=== PATIENT | female | born 1995 | race Caucasian/White ===

== ENCOUNTER 2024-06-02 15:52 | Emergency (ER) | payer MEDICAID, SELFPAY ==
[2024-06-02 15:58] VITALS: BP 130/82; PULSE 90; RESP 16; TEMP 37.3; O2SAT 99; BMI 31.6
--- NOTE | 2024-06-02 16:16 | ED.GENADULT ---
HPI - General Adult General Date Seen: 06/02/24 Chief complaint: Vaginal Bleeding Stated complaint: bleeding, 8 wks Time Seen by Provider: 06/02/24 16:07 Source: patient History of Present Illness HPI narrative: Patient is a 28-year-old young woman who is a at 8 weeks by both LMP and ultrasound last Friday at [facility]. On Friday she started having some very light spotting, brownish blood. She was seen on Friday and says they gave her RhoGAM at clinic, she says she has a positive but due to some feature of her blood work they felt she should have RhoGAM. She has continued to have some spotting on and off, little bit have your today, but still no more than needing a panty liner. She has not had significant abdominal pain, fevers, urinary symptoms. Denies trauma. Has not had intercourse since she started spotting. No other medical history. Related Data Home Medications ?Medication ?Instructions ?Recorded ?Confirmed lamotrigine 150 mg tablet 150 mg PO DAILY 06/02/24 06/02/24 metoprolol succinate 50 mg 50 mg PO BID 06/02/24 06/02/24 tablet,extended release 24 hr quetiapine 300 mg tablet 300 mg PO QPM 06/02/24 06/02/24 Allergies Allergy/AdvReac Type Severity Reaction Status Date / Time No Known Drug Allergies Allergy Verified 11/26/21 14:40 Review of Systems Status of ROS: Reports: 10 or more systems reviewed and unremarkable except as noted in History and below [facility] Social History Smoking Status: Never smoker Exam Narrative: Exam Narrative: Vital signs reviewed In general, alert, well-appearing young woman. Looks comfortable. Heart: Regular rate and rhythm without murmur. Lungs: Clear. Abdomen: Soft and nontender to palpation. Extremities: Well perfused. Skin: Warm dry well perfused. Pelvic exam deferred. Const: Vital Signs, click to edit/add: Vital Signs - 24 hr 06/02/24 15:58 Temperature 99.1 F Pulse Rate [Pulse Oximeter] 90 Respiratory Rate 16 Blood Pressure [Ri ght Upper Arm] 130/82 Pulse Oximetry 99 Oxygen Delivery Me thod Room Air Documenting provider has reviewed patient's vital signs: yes Course Course ED Course: Will go ahead and get an ultrasound today. They did see cardiac activity last week, will confirm that think still look good. Diagnostic considerations would be threatened , subchorionic hemorrhage, cervical bleeding. Will get a UA and rule out urinary tract infection or bacteria. Ectopic unlikely in the setting of prior normal ultrasound. Preliminary report on her ultrasound is of a viable intrauterine at 7 weeks 6 days, consistent with prior ultrasound and LMP. UA is negative. Discussed findings with her. I think it is reasonable to discharge, I will follow-up on final radiology report and review with her if there are any discrepancies. Otherwise, recommend nothing per vagina for the next week or so and let this settle down. There is no explanation for bleeding on her ultrasound, discussed that this will likely resolve on its own but reviewed reasons to return such as heavy bleeding, significant abdominal pain or other worsening. Continue routine OB follow-up otherwise. Vital Signs Vital signs: Initial Vital Signs Temperature 99.1 F 06/02/24 15:58 Temperature Source Temporal Artery Scan 06/02/24 15:58 Pulse Rate 90 06/02/24 15:58 Respiratory Rate 16 06/02/24 15:58 Blood Pressure 130/82 06/02/24 15:58 Blood Pressure Mean 98 06/02/24 15:58 Blood Pressure Position Supine 06/02/24 15:58 Pulse Oximetry 99 06/02/24 15:58 Oxygen Delivery Method Room Air 06/02/24 15:58 Vital Signs Temperature 99.1 F 06/02/24 15:58 Pulse Rate 90 06/02/24 15:58 Respiratory Rate 16 06/02/24 15:58 Blood Pressure 130/82 06/02/24 15:58 Pulse Oximetry 99 06/02/24 15:58 Oxygen Delivery Method Room Air 06/02/24 15:58 Temperature 99.1 F 06/02/24 15:58 Pulse Rate 90 06/02/24 15:58 Respiratory Rate 16 06/02/24 15:58 Blood Pressure 130/82 06/02/24 15:58 Pulse Oximetry 99 06/02/24 15:58 Oxygen Delivery Method Room Air 06/02/24 15:58 Medical Decision Making Lab Data Labs: Lab Results 06/02/24 06/02/24 Range/Units 16:05 17:00 WBC 12.74 H (4.50-11.00) K/uL RBC 4.18 (4.00-5.20) m/uL Hgb 12.2 (12.0-16.0) gm/dL Hct 36.0 (33.0-51.0) % MCV 86 (80-100) fL MCH 29 (26-34) pg MCHC 34 (32-36) gm/dL RDW Coeff of Lori 12.1 (11.5-15.5) % Plt Count 283 (140-440) K/uL Neut % (Auto) 74.1 H (42.0-72.0) % Lymph % (Auto) 16.1 L (20-44) % [place] % (Auto) 7.0 (0.0-11.0) % Eos % (Auto) 1.8 (0.0-7.0) % Baso % (Auto) 0.3 (0.0-3.0) % Neut # (Auto) 9.40 H (1.7-7.0) K/uL Lymph # (Auto) 2.10 (0.90-2.90) K/uL [place] # (Auto) 0.90 (0.00-0.90) K/UL Eos # (Auto) 0.20 (0.00-0.50) K/uL Baso # (Auto) 0.00 (0.00-0.30) K/uL Abs Immat Gran (auto) 0.10 (0.00-0.30) K/uL Imm/Tot Granulo (auto) 0.7 % HCG, Qual Cancelled Urine Color Yellow (Yellow) Urine Appearance Clear (Clear) Urine pH 6.5 (5.0-8.5) Ur Specific [place] 1.025 (1.000-1.030) Urine Protein Negative (Negative) Urine Glucose (UA) Negative (Negative) Urine Ketones Negative (Negative) Urine Blood Negative (Negative) Urine Nitrite Negative (Negative) Urine Bilirubin Negative (Negative) Urine Urobilinogen 0.2 (0.2-1.0) Ur Leukocyte Esterase Negative (Negative) Urine RBC 0-2 (0-2) Urine WBC 0-2 (0-5) Ur Squamous Epith Cells Few (None-Few) Urine Bacteria None (None) Imaging Data OB ultrasound: Attestation: I have reviewed the pertinent imaging results. Radiologist's impression: Patient: CHET BOBO Facility: [facility] RIS Site . Site : 1995 Study: US-OB Pelvis 1st tri transvaginal-06/02/2024 4:39:48 PM Ordering Physician: Mayi Cardona Final Report: INDICATION: Bleeding. Early OB TECHNIQUE: Transvaginal OB pelvic ultrasound. COMPARISON: None. FINDINGS: Single living intrauterine with crown-rump length of 15 mm corresponding to 7 weeks 6 days. heart rate is 157 beats per minute. Normal-appearing gestational sac and yolk sac. Uterus as imaged is otherwise unremarkable. Right ovary is 3.3 x 1.6 x 1.5 cm and is within normal limits. Normal-appearing color flow in the right ovary. Right adnexal region as imaged is unremarkable. Left ovary is 3.2 x 2 x 2.7 cm. Suspected corpus luteum cyst in the left ovary measures 2 cm. Left ovary is otherwise unremarkable. Left adnexal region is unremarkable. No free fluid evident. IMPRESSION: Single living intrauterine with estimated age of 7 weeks 6 days. Dictated by Rodríguez Estrella MD @ 06/02/2024 5:14:57 PM Dictated by: Rodríguez Estrella MD @ 06/02/2024 17:15:11 Discharge Plan Discharge Clinical Impression: Vaginal bleeding during Patient Disposition: Home, Self-Care Condition: Stable Additional Instructions: Your ultrasound today is reassuring. You are measuring consistent with dates and cardiac activity is seen. No explanation for your spotting is seen at this time. I would recommend nothing per vagina for another week or so. Follow-up with your OB Clinic as planned. Return any time if you have more significant bleeding, significant abdominal pain, or other worsening. Prescriptions: No Action lamotrigine 150 mg tablet 150 mg PO DAILY quetiapine 300 mg tablet 300 mg PO QPM metoprolol succinate 50 mg tablet extended release 24 hr 50 mg PO BID Follow Up/Referrals: Provider,Not a Local [Primary Care Provider] - Stand Alone Forms: Cube Route Info Instructions
[2024-06-02 16:21] LABS: Appearance Urine Clear (Clear); Bilirubin Urine Negative (Negative); Blood Urine Negative (Negative); Color Urine Yellow (Yellow); Glucose Urine Negative (Negative); Ketones Urine Negative (Negative); Leukocyte Esterase Urine Negative (Negative); Nitrite Urine Negative (Negative); Protein Urine Negative (Negative); Specific Gravity Urine 1.025 (1.000-1.030); Urobilinogen Urine 0.2 (0.2-1.0); pH Urine 6.5 (5.0-8.5)
--- OUTSIDE RECORDS SUMMARY | 2024-06-02 16:57 | XMS_ITS | Clinical Summary ---
Author Organization [facility] Address [place], [place] [address] Care Team Providers Care Assistant Maintenance Manager Name Role Phone Pcp, No Primary Care Provider Unavailabl e Allergies Active Allergy Reactions Criticality Noted Date Comments Sertraline Hcl Other - Describe In Comment Field 10/02/2010 Fainting, unable to sleep Medications tretinoin 0.05 % 0.05 % cream Spread a pea size amount into affected area topically at bedtime. Use sunscreen SPF>20. 45 g 11 5 12:49 PM LOG CHIPPER OPERATOR 04/26/20 15 Active cetirizine (ZYRTEC) 10 mg tablet Take 10 mg by mouth once daily. 01/12/20 21 Active EPINEPHrine (EPIPEN) 0.3 mg/0.3 mL injection INJECT 0.3 MLS (0.3 MG) INTO THE MUSCLE NEEDED FOR ANAPHYLAXIS 01/17/20 21 Active tiZANidine (ZANAFLEX) 4 mg tabletIndications :Tightness of neck Take 0.5-1 Tablets (2-4 mg) by mouth at bedtime if needed for Muscle Spasm. 30 Tablet 02/08/20 22 Active COQ10, UBIQUINOL, ORAL Take by mouth. Activ e magnesium 250 mg tab Take 250 mg by mouth once daily. Active vitamins no.2 ( VITAMIN NO.2 ORAL) Take by mouth. Activ e calcium carbonate (Calcium 500) 500 mg calcium (1,250 mg) chewable tablet Chew 1,250 mg by mouth three times daily with meals. Active metoprolol succinate (TOPROL XL) 50 mg sustained-release tablet Take 1 Tablet (50 mg) by mouth two times daily. 10/03/19 24 Active lamoTRIgine 150 mg tabletIndications :Generalized anxiety disorder,Severe episode of recurrent major depressive disorder, without psychotic features (HC) Take 1 Tablet (150 mg) by mouth once daily. 90 Tablet 1 03/29/20 24 Active QUEtiapine (SEROQUEL) 300 mg tabletIndications :Severe episode of recurrent major depressive disorder, without psychotic features (HC) Take 1 Tablet (300 mg) by mouth at bedtime. 90 Tablet 1 03/29/20 24 Active guanFACINE ER (INTUNIV) 1 mg Extended-Release tabletIndications :Attention deficit hyperactivity disorder (ADHD), unspecified ADHD type Take 2 Tablets (2 mg) by mouth once daily for 7 days, THEN 1 Tablet (1 mg) once daily for 7 days. Then stop. If you experience headaches or any side effects, please reach out right away. 21 Tablet 05/19/19 25 025 Active dextroamphetamine -amphetamine (Adderall XR) 30 mg Extended-Release capsuleIndication s:Attention deficit hyperactivity disorder (ADHD), unspecified ADHD type Take 1 Capsule (30 mg) by mouth once daily. 30 Capsule 04/28/20 24 025 Discontin ued(*Preg anya risk/[place] stfeeding ) dextroamphetamine -amphetamine (Adderall XR) 30 mg Extended-Release capsuleIndication s:Attention deficit hyperactivity disorder (ADHD), unspecified ADHD type Take 1 Capsule (30 mg) by mouth once daily. 30 Capsule 05/28/19 25 025 Discontin ued(*Preg anya risk/[place] stfeeding ) dextroamphetamine -amphetamine (AdderalL) 10 mg tabletIndications :Attention deficit hyperactivity disorder (ADHD), unspecified ADHD type Take 1 Tablet (10 mg) by mouth once daily. Afternoon 30 Tablet 04/28/20 24 025 Discontin ued(*Preg anya risk/Maxine stfeeding ) dextroamphetamine -amphetamine (AdderalL) 10 mg tabletIndications :Attention deficit hyperactivity disorder (ADHD), unspecified ADHD type Take 1 Tablet (10 mg) by mouth once daily. Afternoon 30 Tablet 05/28/19 25 025 Discontin ued(*Preg anya risk/[place] stfeeding ) guanFACINE ER (INTUNIV) 3 mg extended-Release tabletIndications :Attention deficit hyperactivity disorder (ADHD), unspecified ADHD type Take 1 Tablet (3 mg) by mouth once daily. 90 Tablet 1 03/29/20 24 025 Discontin ued(*Medi cation adjustmen t) LORazepam (ATIVAN) 0.5 mg tabIndications:Ge neralized anxiety disorder TAKE 1 TABLET (0.5 MG) BY MOUTH ONCE DAILY IF NEEDED FOR ANXIETY. 15 Tablet 05/03/20 24 025 Discontin ued(*Preg anya risk/Max[facility] stfeeding ) Hospital, Clinic, or Other Facility Administered Medication Ordered Dose Route Frequency Start Date End Date Status rho D immune globulin IM (RHOGAM) injection 300 mcgIndications:Vaginal bleeding in , first trimester 300 mcg IM ONE TIME 05/31/2024 05/31/2024 Ended Active Problems Problem Noted Date Diagnosed Date 05/21/2024 Overview (05/25/2024): Estimated Date of Delivery: 01/14/25 Patient's last menstrual period was 04/09/2024. GBS: 28wk labs: Last Tdap: 08/30/16 Last Flu vaccine: 02/07/22 OB Labs: ABORH Date Value Ref Range Status 05/21/2024 A, See Weak D Final ANTIBODY SCREEN Date Value Ref Range Status 05/21/2024 Negative Negative Final TREPONEMA PALLIDUM Date Value Ref Range Status 05/21/2024 Non-Reactive Non-Reactive Final RUBELLA AB (IGG), IMMUNE STATUS Date Value Ref Range Status 05/21/2024 2.96 Index Final Comment: Index Interpretation ----- <0.90 Not consistent with immunity 0.90-0.99 Equivocal > or = 1.00 Consistent with immunity The presence of rubella IgG antibody suggests immunization or past or current infection with rubella virus. HEPATITIS B SURFACE ANTIGEN Date Value Ref Range Status 05/21/2024 NON-REACTIVE NON-REACTIVE Final HEPATITIS C ANTIBODY Date Value Ref Range Status 05/21/2024 NON-REACTIVE NON-REACTIVE Final HIV AG/AB, 4TH GEN Date Value Ref Range Status 05/21/2024 NON-REACTIVE NON-REACTIVE Final VARICELLA ZOSTER VIRUS ANTIBODY (IGG) Date Value Ref Range Status 05/21/2024 2.82 S/CO Final Comment: Signal to Cut-off S/CO Interpretation --------- <1.00 Negative - Antibody not detected > or = 1.00 Positive - Antibody detected HEMOGLOBIN Date Value Ref Range Status 05/21/2024 13.7 13.2 - 15.5 g/dL Final PLATELET COUNT Date Value Ref Range Status 05/21/2024 389 140 - 400 Thousand/uL Final CHLAMYDIA PROBE Date Value Ref Range Status 05/21/2024 Negative Final N GONORRHOEAE PROBE Date Value Ref Range Status 05/21/2024 Negative Final Allergies Allergen Reactions Sertraline Hcl Other - Describe In Comment Field Fainting, unable to sleep OB History Para Term AB Living 1 0 0 0 0 0 SAB IAB Ectopic Multiple Live Births 0 0 0 0 0 # Outcome Date GA Lbr Thomas/2nd Weight Sex Type Anes PTL Lv 1 Current Past Medical History: . Date Anxiety 2014 ASCUS with positive high risk HPV cervical 03/02/2020 03/02/2020 ASCUS/HPV+, HPV 16/18 Negative. ([place]). PLAN: Pap/HPV testing due 01/2022 Depression 2014 Infertility, female 2021 Past Surgical History: . Laterality Date COLPOSCOPY 01/31/2021 Benign WISDOM TEETH EXTRACTION Bilateral #1 Problems (from 05/21/24 to present) No problems associated with this episode. Valentina Marie RN ....05/21/2024 2:30 PM Severe recurrent major depre ssion without psychotic features 08/02/2022 Posttraumatic stress disorder 08/02/2022 PTSD (post-traumatic stress disorder) 07/08/2022 Controlled substance agreement signed 06/03/2022 Overview (06/03/2022): 06/03/22, Chrissy Jefferson NP, Psychiatry Mixed dyslipidemia 02/08/2022 Prediabetes 02/08/2022 Elevated LFTs 02/08/2022 Attention deficit hyperactivity disorder (ADHD) 02/07/2022 Depression, major, single episode, mild 02/08/20 22 Generalized anxiety disorder 02/07/2022 Severe episode of recurrent major depressive disorder, without psychotic features 02/07/2022 ASCUS with positive high risk HPV cervical 03/02 Overview (02/01/2021): 03/02/2020 ASCUS/HPV+, HPV 16/18 Negative. ([place]) 01/31/2021 Colposcopy: Benign PLAN: Pap/HPV testing due 01/2022 Estimated Date of Delivery Comme nts Yes 01/14/2025 Based on last me nstrual period of 04/09/2024 Encounters Date Type Department Care Team Description 06/02/2024 Nurse Triage [facility] Centralized Nurse Triage Pcp, No 05/31/2024 3:00 PM LOG CHIPPER OPERATOR Orders Only [facility] [address] [facility] [address] [place] [address] Lab 05/31/2024 11:00 AM LOG CHIPPER OPERATOR Office Visit [facility] [address] [place] [address] Susanne Wallace, JACQUE Tax Technician Exam (Early Vaginal spotting, cramping ) 05/31/2024 9:30 AM LOG CHIPPER OPERATOR Ancillary Procedure [facility] [address] [place] [address] Arrived 05/31/2024 Travel 05/31/2024 Nurse Triage [facility] [address] [place] [address] Lou Bobby, DO Spotting 05/28/2024 1:45 PM LOG CHIPPER OPERATOR Ancillary Procedure [facility] [address] [facility] [address] [place] [address] 05/27/2024 Travel 05/21/2024 1:40 PM LOG CHIPPER OPERATOR OB Encounter [facility] [address] [place] [address] Education (Ob intake ) 05/21/2024 Travel 05/19/2024 3:15 PM LOG CHIPPER OPERATOR Telemedicine [facility] [address] [place] [address] Chrissy Jefferson, JACQUE Telehealth; Medication Management (Things are going good, Wanting to review what the psych said) 05/19/2024 Travel 05/18/2024 E-Consult [facility] [address] [place] [address] Mai Perea MD 05/17/2024 1:45 PM LOG CHIPPER OPERATOR Telemedicine [facility] [address] [place] [address] Chrissy Jefferson, JACQUE Telehealth; Medication Management (Things are going good,/Got a positive test this morning!) 05/17/2024 Travel 05/02/2024 Refill [facility] [address] [place] [address] Chrissy Jefferson NP Refill Request (Lorazepam) 03/29/2024 12:45 PM LOG CHIPPER OPERATOR Telemedicine [facility] [address] [place] [address] Chrissy Jefferson NP Telehealth 03/29/2024 Travel 03/24/2024 Refill [facility] [address] [place] [address] Chrissy Jefferson NP Refill Request (GUANFACINE HCL ER 3MG TAB) 03/24/2024 Travel from Last 3 Months Immunizations Name Administration Dates Next Due HIB PRP-T (ActHIB,Hiberix) 09/25/1995,01/09/1995 ,1994,1994 HPV 9 (Gardasil 9) 01/15/2011,08/02/2010, 010 Hepatitis A, Unspecified 04/09/2012,02/12/2010 Hepatitis B, Unspecified 03/11/1995,1994,0 1994 Inactivated Polio Vaccine 08/02/1999,01/09/1995, 1994,1994 Influenza Virus, Unspecified 03/03/2017, 02/16/2015,01/19/2015,03/11/2014 ,03/10/2014,04/09/2012,02/12/2010 Influenza, IIV4 02/07/2022,03/02/2020,02/04/2019 ,06/22/2018 MMR 08/02/1999,09/25/1995 Meningococcal Vaccine (Menomune) 04/09/2012,03/0 07/2009 Tdap 12/27/2005 Tdap, Unspecified 08/30/2016, 0,09/25/1995,01/09/1995 ,1994,1994 Tuberculin (PPD) 01/26/2019,08/09/2014, 5 Varicella Vaccine 07/05/2009,09/25/1995 Family History Medical History Relation Name Comments Good Health Brother Hypertension Father Brain Aneurysm Maternal Grandmother Pulmonary embolism Mother Rheum arthritis Mother Good Health Sister Relation Name Status Comments Brother Father Maternal Grandmother Mother Sister Social History Tobacco Use Types Packs/Day Years Used Date Smoking Tobacco: Former Cigarettes Smokeless Tobacco: Never Tobacco Cessation:Counseling Given: Not Answered Alcohol Use Standard Drinks/Week Comments Not Currently 0 (1 standard drink = 0.6 oz pur e alcohol) Social PHQ-2 Answer Date Recorded PHQ-2 TOTAL SCORE 0 05/21/2024 Social Connections Answer Date Recorded Frequency of Communication with Friends and Fami ly Not on file 02/07/2022 Alcohol Use Answer Date Recorded How often do you have a drink containing alcohol ? 2 07/08/2022 How many drinks containing a lcohol do you have on a typical day when you are drinking? 0 07/08/2022 Frequency of Binge Drinking Not on file 10/2022 Estimated Date of Delivery Comme nts Yes 01/14/2025 Based on last me nstrual period of 04/09/2024 Sex and Gender Information Value Date Recorded Sex Assigned at Not on file Legal Sex Female 8:07 AM LOG CHIPPER OPERATOR Gender Identity Not on file Sexual Orientation Not on file Obstetrics History Para Term AB IAB SAB Ectopic Multiple Livin g Live Births 1 0 0 0 0 0 0 0 0 0 0 Date Outcome GA Total Labor Labor/2nd/3rd Weight Sex Type Anes PTL Jackie A1 A5 Name Clin Current Summary Episode Dates Number of Fetuses Estimated Date of Delivery 05/21/2024 - Present (06/02/2024) 01/14/2025 (set by Valentina Marie, YULI on 05/21/2024 based on Last Menstrual Period on 04/09/2024) Dating Summary Based On GABRIEL GA Diff Last Menstrual Period on 04/09/2024 01/14/2025 Working Alternate GABRIEL Entry 01/14/2025 Same Vitals Pregravid Weight Height TWG (As of 06/02/2024) Pregrav id BMI 1.667 m (5' 5.63) Notes Progress Notes - OB Encounte r - 05/21/2024 - GA:6w0d 05/21/2024 - 6w0d - Valentina Marie RN SUBJECTIVE: Nidia Crystal is a 28 y.o. female, , who presents for confirmation and ob education. Patient presents to the clinic alone. Had positive test at home. This was Planned, Desired. Patient was not on contraception. 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 MENSTRUAL HISTORY: Patient's last menstrual period was 04/09/2024.: Cycle Regularity: regular, every 28-30 days Past Medical History: . Date Anxiety 2014 ASCUS with positive high risk HPV cervical 03/02/2020 03/02/2020 ASCUS/HPV+, HPV 16/18 Negative. ([place]). PLAN: Pap/HPV testing due 01/2022 Depression 2014 Infertility, female 2021 OB History Para Term AB Living 1 0 0 0 0 0 SAB IAB Ectopic Multiple Live Births 0 0 0 0 0 # Outcome Date GA Lbr Thomas/2nd Weight Sex Type Anes PTL Lv 1 Current 5P'S SUBSTANCE ABUSE SCREEN FOR ALCOHOL, DRUGS AND TOBACCO: Did any of your parents have a problem with using alcohol or drugs? No Do any of your friends (peers) have problems with drug or alcohol use? No Does your partner have a problem with drug or alcohol use? No Before you knew you were , how often did you drink beer, wine, wine coolers or liquor or use any kind of drug? Sometimes In the past month, how often did you drink beer, wine, wine coolers or liquor or use any kind of drug? Socially with the holidays How much did you smoke, vape or use tobacco or nicotine in any form before you knew you were ? Don't Smoke, Vape or use Tobacco Genetic Screening Genetic Screening/Teratology Counseling- Includes patient, baby's father, or anyone in either family with: Patient's age 35 years or older as of estimated date of delivery: No Thalassemia (Canadian, Albanian, Mediterranean, or background): MCV less than 80: No Neural tube defect (Meningomyelocele, Spina bifida, or Anencephaly): No Congenital heart defect: No Down syndrome: No Todd-Sachs (Ashkenazi Moravian, Cajun, Belarusian Grenadian): No Kirsten disease (Ashkenazi Moravian): No Familial dysautonomia (Ashkenazi Moravian): No Sickle cell disease or trait (): No 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 Type 1 diabetes, PKU): No Patient or baby's father had child with defects not listed above: No Recurrent loss, or a stillbirth: No Medications (including supplements, vitamins, herbs, or OTC drugs)/illicit/recreational drugs/alcohol since last menstrual period: Yes If yes, agent(s) and strength/dosage: Lamictal 150 mg daily, seroquel 300 mg daily, metoprolol 50 mg BID, CURRENT MEDICATIONS: Current Outpatient Medications Medication Sig calcium carbonate (Calcium 500) 500 mg calcium (1,250 mg) chewable tablet Chew 1,250 mg by mouth three times daily with meals. cetirizine (ZYRTEC) 10 mg tablet Take 10 mg by mouth once daily. COQ10, UBIQUINOL, ORAL Take by mouth. EPINEPHrine (EPIPEN) 0.3 mg/0.3 mL injection INJECT 0.3 MLS (0.3 MG) INTO THE MUSCLE NEEDED FOR ANAPHYLAXIS guanFACINE ER (INTUNIV) 1 mg Extended-Release tablet Take 2 Tablets (2 mg) by mouth once daily for 7 days, THEN 1 Tablet (1 mg) once daily for 7 days. Then stop. If you experience headaches or any side effects, please reach out right away. lamoTRIgine 150 mg tablet Take 1 Tablet (150 mg) by mouth once daily. magnesium 250 mg tab Take 250 mg by mouth once daily. metoprolol succinate (TOPROL XL) 50 mg sustained-release tablet Take 1 Tablet (50 mg) by mouth two times daily. vitamins no.2 ( VITAMIN NO.2 ORAL) Take by mouth. QUEtiapine (SEROQUEL) 300 mg tablet Take 1 Tablet (300 mg) by mouth at bedtime. tiZANidine (ZANAFLEX) 4 mg tablet Take 0.5-1 Tablets (2-4 mg) by mouth at bedtime if needed for Muscle Spasm. tretinoin 0.05 % 0.05 % cream Spread a pea size amount into affected area topically at bedtime. Use sunscreen SPF>20. No current facility-administered medications for this visit. Medications have been reviewed by me and are current to the best of my knowledge and ability. ALLERGIES: Sertraline hcl OBJECTIVE: Ht 1.667 m (5' 5.63) Wt 85 kg (187 lb 8 oz) LMP 04/09/2024 BMI 30.61 kg/m No results found for: PREGURINE ASSESSMENT/PLAN: ICD-10-CM 1. Encounter for supervision of normal first in first trimester Z34.01 EDUCATION/PATIENT INSTRUCTIONS - Advised patient to continue vitamin. - Discussed risk of using alcohol, tobacco, other drugs in . - Discussed healthy lifestyle in . - Provided copy of Beginnings book and book inserts, discussed [id number] medications, and follow up. - Encouraged patient to call clinic at [phone] with any vaginal bleeding, fluid leaking from vagina, severe abdominal pain, nausea with severe vomiting, fever higher than 100.4F, painful urination, headache not relieved by Tylenol, or other concerns - labs completed with today's visit. - Patient informed to schedule 1st trimester dating ultrasound between 7-10 weeks. - Initial OB appointment with FP/OB scheduled. PHQ-9, and COVID-19 vaccine discussion to be completed at this visit. Future Appointments Date Time Provider Department Center 06/25/2024 4:05 PM Lou Bobby, NFLDFP NFT[facility]LOR Marie RN .................... 05/21/2024 1:57 PM CHIPPER OPERATOR Last Filed Vital Signs Vital Sign Reading Time Taken Comments Blood Pressure 120/60 05/31/2024 11:01 AM LOG CHIPPER OPERATOR Pulse 74 05/31/2024 11:01 AM LOG CHIPPER OPERATOR Temperature 37.1 C (98.7 F) 03/01/2015 6:05 PM CDT Respiratory Rate 16 03/01/2015 6:05 PM CDT Oxygen Saturation 99% 03/01/2015 6:05 PM CDT RA Inhaled Oxygen Concentration - - Weight 87.1 kg (192 lb) 05/31/2024 11:01 AM LOG CHIPPER OPERATOR Height 166.7 cm (5' 5.63) 05/21/2024 1:46 PM CS T Body Mass Index 31.34 05/21/2024 1:46 PM LOG CHIPPER OPERATOR Plan of Treatment Upcoming Encounters Date Type Department Care Team (Late st Contact Info) Description 06/25/2024 4:05 PM LOG CHIPPER OPERATOR OB Encounter [facility] [address] [place] [address] Lou Bobby, [address] [place] [address] Health Maintenance Due Date Last Done Comments Pap test for age 21-65 2015 COVID-19 vaccine series ( season) 2024 Influenza for age 9-49 01/04/2024 , 03/02/2020, 02/04/2019, Additional history exists BMI (ht and wt on same day) for age 18+ 05/21/2025 05/21/2024, 02/07/2022, 04/09/2021, Additional history exists Depression screening for age 12+ 05/21/2025 05/21/2024, 05/19/2024, 05/17/2024, Additional history exists Tetanus booster 08/30/2026 08/30/2016, 12/04, 08/02/1999, Additional history exists Tdap Completed 08/30/2016, 12/04, 08/02/1999, Additional history exists HIV for age 15-65 Completed 05/21/2024 Hepatitis C screening for age 18-79 Completed 05/21/2024, 02/07/2022 Pneumococcal series for age 6-49 Aged Out No longer eligible based on patient's age to complete this topic RSV vaccine for adults or (No Doses Required) Completed Procedures Procedure Name Priority Date/Time Associated Diagnosis Comments PROGESTERONE Routine 05/31/2024 2:53 PM LOG CHIPPER OPERATOR Low serum progesterone US OB LIMITED ANY TRI TA STAT 05/31/2024 11:47 AM LOG CHIPPER OPERATOR Vaginal bleeding in , first trimester URINE POCT Routine 05/31/2024 10:59 AM LOG CHIPPER OPERATOR Encounter for test, result unknown US OB ANY TRI TV Routine 05/28/2024 2:10 PM LOG CHIPPER OPERATOR Encounter for supervision of normal first in first trimester ANTI HIV 1/2 Routine 05/21/2024 2:50 PM LOG CHIPPER OPERATOR Encounter for supervision of normal first in first trimester CBC W PLT NO DIFF Routine 05/21/2024 2:5 0 PM LOG CHIPPER OPERATOR Encounter for supervision of normal first in first trimester RUBELLA IMMUNE STATUS Routine 05/21/2024 2:50 PM LOG CHIPPER OPERATOR Encounter for supervision of normal first in first trimester HBSAG (HBS) Routine 05/21/2024 2:50 PM LOG CHIPPER OPERATOR Encounter for supervision of normal first in first trimester ANTI HCV Routine 05/21/2024 2:50 PM LOG CHIPPER OPERATOR Encounter for supervision of normal first in first trimester VARICELLA-ZOSTER V AB, IGG Routine 05/21/2024 2:50 PM LOG CHIPPER OPERATOR Encounter for supervision of normal first in first trimester WEAK D (DU) LAB USE ONLY Routine 05/21/2024 2:28 PM LOG CHIPPER OPERATOR Encounter for supervision of normal first in first trimester TYPE & SCREEN Routine 05/21/2024 2:28 PM LOG CHIPPER OPERATOR Encounter for supervision of normal first in first trimester UA W/ SEDIMENT EXAM REFLEXED PER CRITERIA Routine 05/21/2024 2:28 PM LOG CHIPPER OPERATOR Encounter for supervision of normal first in first trimester GC CHLAMYDIA TRACH PROBE Routine 05/21/2024 2:28 PM LOG CHIPPER OPERATOR Encounter for supervision of normal first in first trimester TREPONEMA PALLIDUM Routine 05/21/2024 2: 28 PM LOG CHIPPER OPERATOR Encounter for supervision of normal first in first trimester URINE CULTURE Routine 05/21/2024 2:28 PM LOG CHIPPER OPERATOR Encounter for supervision of normal first in first trimester from Last 3 Months Results * PROGESTERONE (05/31/2024 2:53 PM LOG CHIPPER OPERATOR) PROGESTERONE 9.8 ng/mL NanaliDonald Berman Comment: Reference Ranges Female Follicular Phase < 1.0 Luteal Phase 2.6-21.5 Post menopausal < 0.5 1st Trimester 4.1-34.0 2nd Trimester 24.0-76.0 3rd Trimester 52.0-302.0 Blood BLOOD SPECIMEN / Unknown 05/31/2024 2:53 PM LOG CHIPPER OPERATOR 05/31/2024 2:53 PM LOG CHIPPER OPERATOR us Susanne Wallace NP SEND OUTS Final Result [facility] [address] [place] [address], [place] [phone] [facility] [address] [place] [address] * US OB LIMITED ANY TRI TA (05/31/2024 11:47 AM LOG CHIPPER OPERATOR) Anatomical Region Laterality Modality , 2or 3 TRIMESTER, 1ST TRIMESTER Ultrasound Impressions 05/31/2024 12:10 PM LOG CHIPPER OPERATOR Single living intrauterine with a heart tone of 153 beats per minute. Anya Dixon MD 05/31/2024 12:10 PM Narrative 05/31/2024 12:10 PM LOG CHIPPER OPERATOR Table formatting from the original result was not included. For Patients: Results are automatically released to your [facility] account once available, in compliance with federal regulations. This means that you may see your results before your provider has had a chance to review them. Please allow 2-3 business days for your provider to comment on the results. OB Limited Ultrasound Date of exam: 05/31/2024 Indication for exam: 1. Vaginal bleeding in , first trimester Requesting Provider: Susanne Wallace NP Estimated Date of Delivery: 01/14/25 FINDINGS: There is a single intrauterine . The heart rate is 153 beats per minute with a normal rate and normal rhythm. us Susanne Wallace NP US Final Result * (ABNORMAL) POCT Urine (05/31/2024 10:59 AM LOG CHIPPER OPERATOR) ,URIN E Positive(P ositive) Negative 05/31/2024 11:00 AM LOG CHIPPER OPERATOR [facility] Comment:Is Rh typing necessa ry? Urine URINE SPECIMEN / Unknown Non-Blood / Unknown 05/31/2024 10:59 AM LOG CHIPPER OPERATOR 05/31/2024 10:59 AM LOG CHIPPER OPERATOR Susanne Wallace NP URINE Final Result [facility] [address] [facility] [facility] [address] [place] [id number], * US OB ANY TRI TV (05/28/2024 2:10 PM LOG CHIPPER OPERATOR) Anatomical Region Laterality Modality , 2or 3 TRIMESTER, 1ST TRIMESTER Ultrasound 05/29/2024 10:0 2 AM LOG CHIPPER OPERATOR Addenda Addendum by Hung Sifuentes MD on 05/29/2024 10:27 AM LOG CHIPPER OPERATOR For Patients: As a result of the Century Cures Act, medical imaging exams and procedure reports are released immediately into your electronic medical record. You may view this report before your referring provider. If you have questions, please contact your health care provider. INDICATION: First trimester dating and viability. TECHNIQUE: Ultrasound OB pelvis transabdominal and transvaginal. Real-time ayala-scale imaging of the pelvis was performed. COMPARISON: None. FINDINGS: Intrauterine gestation: Single. heart activity (bpm): 127. [place]-rump length: 1.0 cm. Estimated ultrasound age: 7 weeks 1 day. GABRIEL by ultrasound: January 13, 2025. Yolk sac: Normal. Perigestational hemorrhage: None. Ovaries and adnexa: Unremarkable. Suspicious pelvic fluid collections: None. IMPRESSION: Single viable intrauterine . No abnormalities seen. Dictated by Hung Sifuentes MD @ 05/29/2024 10:27:08 AM (Electronically Signed) Impressions 05/29/2024 10:02 AM LOG CHIPPER OPERATOR Single viable intrauterine . No abnormalities seen. Dictated by Hung Sifuentes MD @ 05/29/2024 10:02:03 AM (Electronically Signed) Narrative 05/29/2024 10:02 AM LOG CHIPPER OPERATOR For Patients: As a result of the Cures Act, medical imaging exams and procedure reports are released immediately into your electronic medical record. You may view this report before your referring provider. If you have questions, please contact your health care provider. INDICATION: Encounter for supervision of normal in 1st trimester. TECHNIQUE: Ultrasound OB pelvis transabdominal and transvaginal. Real-time ayala-scale imaging of the pelvis was performed. COMPARISON: None. FINDINGS: Intrauterine gestation: Single. heart activity (bpm): 127. [place]-rump length: 1.0 cm. Estimated ultrasound age: 7 weeks 1 day. GABRIEL by ultrasound: January 13, 2025. Yolk sac: Normal. Perigestational hemorrhage: None. Ovaries and adnexa: Unremarkable. Suspicious pelvic fluid collections: None. Procedure Note Hung Sifuentes MD - 05/29/2024 For Patients: As a result of the Cures Act, medical imagingexams and procedure reports are released immediately into your electronicmedical record. You may view this report before your referring provider.If you have questions, please contact your health care provider. INDICATION: Encounter for supervision of normal in 1st trimester. TECHNIQUE: Ultrasound OB pelvis transabdominal and transvaginal. Hfsi-bsbewhsi-orqag imaging of the pelvis was performed. COMPARISON: None. FINDINGS: Intrauterine gestation: Single. heart activity (bpm): 127. [place]-rump length: 1.0 cm. Estimated ultrasound age: 7 weeks 1 day. GABRIEL by ultrasound: January 13, 2025. Yolk sac: Normal. Perigestational hemorrhage: None. Ovaries and adnexa: Unremarkable. Suspicious pelvic fluid collections: None. IMPRESSION: Single viable intrauterine . No abnormalities seen. Dictated by Hung Sifuentes MD @ 05/29/2024 10:02:03 AM (Electronically Signed) Lou Bobby DO US Edited Res ult - Final * LC VARICELLA-ZOSTER V AB, IGG (05/21/2024 2:50 PM LOG CHIPPER OPERATOR) Pathologist [facility] VARICELLA ZOSTER VIRUS ANTIBODY (IGG) 2.82 S/CO [facility] Comment: Signal to Cut-off S/CO Interpretation --------- <1.00 Negative - Antibody not detected > or = 1.00 Positive - Antibody detected A positive result indicates that the patient has antibody to VZV but does not differentiate between an active or past infection. The clinical diagnosis must be interpreted in conjunction with the clinical signs and symptoms of the patient. This assay reliably measures immunity due to previous infection but may not be sensitive enough to detect antibodies induced by vaccination. Thus, a negative result in a vaccinated individual does not necessarily indicate susceptibility to VZV infection. A more sensitive test for vaccination-induced immunity is Varicella Zoster Virus Antibody Immunity Screen, ACIF. Blood BLOOD SPECIMEN / Unknown 05/21/2024 2:50 PM LOG CHIPPER OPERATOR 05/22/2024 3:24 AM LOG CHIPPER OPERATOR Narrative [facility] - 05/25/2024 8:16 AM LOG CHIPPER OPERATOR FASTING: UNKNOWN us Lou Bobby DO LABORATORY Final Resu lt [facility] [address] [place] [address], [facility] [address] [place] [address] * RUBELLA IMMUNE STATUS (05/21/2024 2:50 PM LOG CHIPPER OPERATOR) RUBELLA AB (IGG), IMMUNE STATUS 2.96 Index [facility] Comment: Index Interpretation ----- <0.90 Not consistent with immunity 0.90-0.99 Equivocal > or = 1.00 Consistent with immunity The presence of rubella IgG antibody suggests immunization or past or current infection with rubella virus. Blood BLOOD SPECIMEN / Unknown 05/21/2024 2:50 PM LOG CHIPPER OPERATOR 05/22/2024 3:24 AM LOG CHIPPER OPERATOR Narrative [facility] - 05/25/2024 8:16 AM LOG CHIPPER OPERATOR FASTING: UNKNOWN us Lou Bobby DO SEND OUTS Final Resu lt Performing Organization Address City/[facility] Co de Phone Number [facility] [address] [address], [facility] [address] [place] [address] * HBSAG (HBS) (05/21/2024 2:50 PM LOG CHIPPER OPERATOR) HEPATITIS B SURFACE ANTIGEN NON-REACTI VE NON-REACTI VE [facility] Comment: For additional information, please refer to http://education.RIISnet.Immunovaccine/faq/TWV117 (This link is being provided for informational/ educational purposes only.) Blood BLOOD SPECIMEN / Unknown 05/21/2024 2:50 PM LOG CHIPPER OPERATOR 05/22/2024 3:24 AM LOG CHIPPER OPERATOR Narrative [facility] - 05/25/2024 8:16 AM LOG CHIPPER OPERATOR FASTING: UNKNOWN Lou Bobby DO SEND OUTS Final Resu lt Performing Organization Address [facility]/State/ZIP Co de Phone Number [facility] [address] [place] [address], [facility] [address] [place] [address] * ANTI HCV (05/21/2024 2:50 PM LOG CHIPPER OPERATOR) Pathologist [facility] HEPATITIS C ANTIBODY NON-REACTI VE NON-REACT TANIKA [facility] Comment: HCV antibody was non-reactive. There is no laboratory evidence of HCV infection. In most cases, no further action is required. However, if recent HCV exposure is suspected, a test for HCV RNA (test code 44152) is suggested. For additional information please refer to http://education.[employer] Movie Studio/faq/DOC80l5 (This link is being provided for informational/ educational purposes only.) Blood BLOOD SPECIMEN / Unknown 05/21/2024 2:50 PM LOG CHIPPER OPERATOR 05/22/2024 3:24 AM LOG CHIPPER OPERATOR Narrative [facility] - 05/25/2024 8:16 AM LOG CHIPPER OPERATOR FASTING: UNKNOWN Lou Bobby DO SEND OUTS Final Resu lt Performing Organization Address [facility] Co de Phone Number [facility] [address] [place] [address], [facility] [address] [place] [address] * (ABNORMAL) CBC W PLT NO DIFF (05/21/2024 2:50 PM LOG CHIPPER OPERATOR) Pathologist [facility] WHITE BLOOD CELL COUNT 12.9(H) 3.8 - 10.8 Thousand/u L [facility] RED BLOOD CELL COUNT 4.65 4.20 - 5.10 Million/uL [facility] HEMOGLOBIN 13.7 13.2 - 15.5 g/dL [facility] HEMATOCRIT 40.7 38.5 - 45.0 % [facility] MCV 87.5 80.0 - 100.0 fL [facility] MCH 29.5 27.0 - 33.0 pg [facility] MCHC 33.7 32.0 - 36.0 g/dL [facility] Comment: For adults, a slight decrease in the calculated MCHC value (in the range of 30 to 32 g/dL) is most likely not clinically significant; however, it should be interpreted with caution in correlation with other red cell parameters and the patient's clinical condition. RDW 11.8 11.0 - 15.0 % [facility] PLATELET COUNT 389 140 - 400 Thousand/u L [facility] MPV 9.5 7.5 - 12.5 fL [facility] Blood BLOOD SPECIMEN / Unknown 05/21/2024 2:50 PM LOG CHIPPER OPERATOR 05/22/2024 3:24 AM LOG CHIPPER OPERATOR Narrative [facility] - 05/25/2024 8:16 AM LOG CHIPPER OPERATOR FASTING: UNKNOWN Lou Bobby DO HEMATOLOGY Final Resu lt [facility] [address] [place] [address], [facility] [address] [place] [address] * ANTI HIV 1/2 (05/21/2024 2:50 PM LOG CHIPPER OPERATOR) HIV AG/AB, 4TH GEN NON-REACT TANIKA NON-REACT TANIKA [facility] Comment: HIV-1 antigen and HIV-1/HIV-2 antibodies were not detected. There is no laboratory evidence of HIV infection. PLEASE NOTE: This information has been disclosed to you from records whose confidentiality may be protected by state law. If your state requires such protection, then the state law prohibits you from making any further disclosure of the information without the specific written consent of the person to whom it pertains, or as otherwise permitted by law. A general authorization for the release of medical or other information is NOT sufficient for this purpose. For additional information please refer to http://education.RIISnet.Immunovaccine/faq/ALG592 (This link is being provided for informational/ educational purposes only.) The performance of this assay has not been clinically validated in patients less than 2 years old. Blood BLOOD SPECIMEN / Unknown 05/21/2024 2:50 PM LOG CHIPPER OPERATOR 05/22/2024 3:24 AM LOG CHIPPER OPERATOR Narrative [facility] - 05/25/2024 8:16 AM LOG CHIPPER OPERATOR FASTING: UNKNOWN Lou Bobby DO SEND OUTS Final Resu lt Performing Organization Address City/[facility] Co de Phone Number [facility] [address] [place] [address], [facility] [address] [place] [address] * TREPONEMA PALLIDUM (05/21/2024 2:28 PM LOG CHIPPER OPERATOR) TREPONEMA PALLIDUM Non-Reacti ve Non-Reacti ve 05/21/2024 7:09 PM LOG CHIPPER OPERATOR [facility] Blood BLOOD SPECIMEN / Unknown [facility] / Unknown 05/21/2024 2:28 PM LOG CHIPPER OPERATOR 05/21/2024 2:28 PM LOG CHIPPER OPERATOR us Lou Bobby DO SEND OUTS Final Resu lt Performing Organization Address City/[facility]/ZIP Co de Phone Number [facility] [address] [address], [place] * INSPECTOR METAL FABRICATING PROBE - GC CHLAMYDIA DNA PCR [[id number]] (05/21/2024 2:28 PM LOG CHIPPER OPERATOR) CHLAMYDIA PROBE Negative 11:42 PM LOG CHIPPER OPERATOR [facility] N GONORRHOEAE PROBE Negative 05/21/2024 11:42 PM LOG CHIPPER OPERATOR [facility] Other URINE SPECIMEN / Unknown Non-Blood / Unknown 05/21/2024 2:28 PM LOG CHIPPER OPERATOR 05/21/2024 2:28 PM LOG CHIPPER OPERATOR [facility] MICROBIOLOGY Final Resu lt [facility] [address] [place] [address], * TYPE AND SCREEN (05/21/2024 2:28 PM LOG CHIPPER OPERATOR) ABORH A, See Weak D 05/21/2024 8:27 PM LOG CHIPPER OPERATOR [facility] ANTIBODY SCREEN Negative Negative 05/21/2024 8:27 PM LOG CHIPPER OPERATOR [facility] SPECIMEN EXPIRATION DATE/TIME 05/24/24 23:59 05/21/2024 8:27 PM LOG CHIPPER OPERATOR [facility] Blood BLOOD SPECIMEN / Unknown [facility] / Unknown 05/21/2024 2:28 PM LOG CHIPPER OPERATOR 05/21/2024 2:28 PM LOG CHIPPER OPERATOR [facility] BLOOD BANK Final Resu lt Performing Organization Address City/[facility]/ZIP Co de Phone Number [facility] [address] [place] [address], [place] [phone] * URINE CULTURE (05/21/2024 2:28 PM LOG CHIPPER OPERATOR) Pathologist [facility] CULTURE <10,000 CFU/mL multiple organisms 05/22/2024 4:55 PM LOG CHIPPER OPERATOR [facility] TRAL [facility]ATORY Urine URINE SPECIMEN / Unknown Non-Blood / Unknown 05/21/2024 2:28 PM LOG CHIPPER OPERATOR 05/21/2024 2:28 PM LOG CHIPPER OPERATOR Lou Bobby MICROBIOLOGY Final Resu lt [facility] [address] [place] [address], * WEAK D (DU) LAB USE ONLY (05/21/2024 2:28 PM LOG CHIPPER OPERATOR) WEAK D Positive 05/21/2024 8:29 PM LOG CHIPPER OPERATOR [facility] Blood BLOOD SPECIMEN / Unknown [facility] / Unknown 05/21/2024 2:28 PM LOG CHIPPER OPERATOR 05/21/2024 2:28 PM LOG CHIPPER OPERATOR us Louzee Bobby DO BLOOD BANK Final Resu lt [facility]OD [facility] [address] [place] [address], [place] [phone] * URINALYSIS W REFLEX MICROSCOPIC IF POSITIVE [55050.2] (05/21/2024 2:28 PM LOG CHIPPER OPERATOR) COLOR Yellow Yellow Color 05/21/2024 6:45 PM LOG CHIPPER OPERATOR [facility] CLARITY Clear Clear Clarity 05/21/2024 6:45 PM LOG CHIPPER OPERATOR [facility] SPECIFIC GRAVITY,URINE 1.015 1.010, 1.015, 1.020, 1.025 05/21/2024 6:45 PM LOG CHIPPER OPERATOR [facility] TR[facility] PH,URINE 6.5 6.0, 7.0, 8.0, 5.5, 6.5, 7.5, 8.5 05/21/2024 6:45 PM LOG CHIPPER OPERATOR [facility] UROBILINOGEN, QUALITATIVE Normal Normal EU/dl 05/21/2024 6:45 PM LOG CHIPPER OPERATOR [facility] PROTEIN, URINE Negative Negative mg/dL 05/21/2024 6:45 PM LOG CHIPPER OPERATOR [facility] GLUCOSE, URINE Negative Negative mg/dL 05/21/2024 6:45 PM LOG CHIPPER OPERATOR [facility] KETONES,URINE Negative Negative mg/dL 05/21/2024 6:45 PM LOG CHIPPER OPERATOR [facility] BILIRUBIN,URI NE Negative Negative 05/21/2024 6:45 PM LOG CHIPPER OPERATOR [facility] OCCULT BLOOD,URINE Negative Negative 05/21/2024 6:45 PM LOG CHIPPER OPERATOR [facility] NITRITE Negative Negative 05/21/2024 6:45 PM LOG CHIPPER OPERATOR [facility] LEUKOCYTE ESTERASE Negative Negative 05/21/2024 6:45 PM LOG CHIPPER OPERATOR [facility] Urine URINE SPECIMEN / Unknown Non-Blood / Unknown 05/21/2024 2:28 PM LOG CHIPPER OPERATOR 05/21/2024 2:28 PM LOG CHIPPER OPERATOR us Lou Bobby DO URINE Final Resu lt [facility] [address] [place] [address], [place] from Last 3 Months Insurance [facility] [employer] Care Teams Assistant Maintenance Manager Relationship Specialty Start Date End Date Pcp, No . PCP - General 01/12/21
--- OUTSIDE RECORDS SUMMARY | 2024-06-02 16:57 | XMS_ITS | Encounter Summary ---
Author Organization [place] Address [address] [place] [address] Care Team Providers Care Campground Hand Name Role Phone Salina Doherty MD Unavailable [phone] Carrillo Ware APRN TURNER MACHINE OPERATOR Unavailable [phone] Hillary Unger MD Primary Care P rovider [facility] NP Unavailable [phone] Nelson Arroyo PA-C Unavailable Hillary Unger MD Unavailable Hillary Unger MD Unavailable Hillary Unger MD Unavailable Nelson Arroyo PA-C Unavailable [phone] Nelson Arroyo PA-C Primary Care Provider Chinyere Barbour Unavailable Unavailable Nelson Arroyo PA-C Unavailable [phone] Pietro Wills MD Unavailable [phone] Tank Bucio MD Unavailable [phone] Encounter Details Date Type Department Care Team (Late st Contact Info) Description 11/12/2016 [facility] [place] [facility] Mental Health & Addiction [address] [place] [address] Solitario Angelica Gautam, TEACHER ASSOCIATE [address] [place] [address] Social History Tobacco Use Types Packs/Day Years Used Date Smoking Tobacco: Former Cigarettes 0.5 2.8 0 06/05/2012 - 03/09/2015 Smokeless Tobacco: Never Quit: 06/01/2014 Comments:Started 17 y/o Alcohol Use Standard Drinks/Week Comments Yes 0 (1 standard drink = 0.6 oz pur e alcohol) Weekends Comments No Sex and Gender Information Value Date Recorded Sex Assigned at Female 10/03/2020 8:33 PM CDT 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:44 AM LAMP INSPECTOR Gender Identity Female 10/03/2020 8:33 PM CDT Sexual Orientation Straight 07/01/2018 3: 40 PM LAMP INSPECTOR documented as of this encounter Plan of Treatment Not on file documented as of this encounter Visit Diagnoses Not on filedocumented in this encounter Additional Health Concerns Assessment Noted Time PHQ-9 Depression Total Score: 4 10/06/19 17 7:28 AM CDT documented as of this encounter Care Teams Campground Hand Relationship Specialty Start Date End Date Hillary Unger MD [address] [place] [address] PCP - General Internal Medicine 08/21/15 08/05/18 Nelson Arroyo PA-C [address] [place] [address] PCP - Assigned PCP 04/12/18 05/02/18 Hillary Unger MD [address] [place] [address] PCP - Assigned PCP 02/01/18 04/11/18 Hillary Unger MD [address] [place] [address] PCP - Assigned PCP 05/03/18 07/07/18 Nelson Arroyo PA-C [address] [place] [address] PCP - General Physician Front Maker Lockstitch - Medical 08/06/18 Salina Doherty MD Internal Medicine 12/01/14 Carrillo Ware APRN TURNER MACHINE OPERATOR [address] [place] [address] Nurse Practitioner Nurse Practitioner 12/16/14 Angelica Jerez TEACHER ASSOCIATE [facility] [address] [place], [place] [address] Nurse Practitioner Nurse Practitioner - Family 07/12/16 Hillary Unger MD [address] [place] [address] Assigned PCP 05/03/18 07/18/18 Nelson Arroyo PA-C [address] [place] [address] Assigned PCP 07/05/18 07/29/20 Chinyere Barbour Personal Advocate & Liaison (PAL) 01/31/20 04/26/20 Nelson Arroyo PA-C [address] [place] [address] Assigned PCP 07/30/20 Pietro Wills MD [address] [place] [address] Assigned Heart and Vascular Provider 12/14/22 Tank Bucio MD [address], [facility] [address] [place] [address] Physician wire photo operator 12/01/23 documented as of this encounter
--- OUTSIDE RECORDS SUMMARY | 2024-06-02 16:57 | XMS_ITS | Encounter Summary ---
Author Organization [place] Address [address] [place] [address] Care Team Providers Care Butcher Fish Name Role Phone Salina Doherty MD Unavailable [phone] Carrillo Ware APRN WASTEWATER DESIGN ENGINEER Unavailable Hillary Unger MD Primary Care P rovider [facility] NP Unavailable [phone] Nelson Arroyo PA-C Unavailable CriHillary Juan MD Unavailable CriHillary Juan MD Unavailable CrinteaHillary Toledo MD Unavailable Nelson Arroyo PA-C Unavailable [phone] Nelson Arroyo PA-C Primary Care Provider Chinyere Barbour Unavailable Unavailable Nelson Arroyo PA-C Unavailable [phone] Pietro Wills MD Unavailable [phone] Tank Bucio MD Unavailable Encounter Details Date Type Department Care Team (Late st Contact Info) Description 02/27/2017 [facility] [address] [place] [address] Hillary Unger MD [address] [place], [place] [address] Social History Tobacco Use Types Packs/Day Years [...] PM CDT 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:44 AM PHARMACY BENEFITS COORDINATOR Gender Identity Female 10/03/2020 8:33 PM CDT Sexual Orientation Straight 07/01/2018 3: 40 PM PHARMACY BENEFITS COORDINATOR documented as of this encounter Plan of Treatment Not on file documented as of this encounter Visit Diagnoses Not on filedocumented in this encounter Additional Health Concerns Assessment Noted Time PHQ-9 Depression Total Score: 3 12/07/19 17 2:21 PM CDT documented as of this encounter Care Teams Butcher Fish Relationship Specialty Start Date End Date Hillary Unger MD [address] [place] [address] PCP - General Internal Medicine 08/21/15 08/05/18 Nelson Arroyo PA-C [address] [place] [address] PCP - Assigned PCP 04/12/18 05/02/18 Hillary Unger MD [address] [place] [address] PCP - Assigned PCP 02/01/18 04/11/18 Hillary Unger MD [address] [place] [address] PCP - Assigned PCP 05/03/18 07/07/18 Nelson Arroyo PA-C [address] [place] [address] PCP - General Physician Ekg Monitor - Medical 08/06/18 Salina Doherty MD Internal Medicine 12/01/14 Carrillo Ware APRN WASTEWATER DESIGN ENGINEER [address] [place] [address] Nurse Practitioner Nurse Practitioner 12/16/14 Angelica Jerez CLEANING MACHINE OPERATOR [facility] [address] [place], [place] [address] Nurse Practitioner Nurse Practitioner - Family 07/12/16 Hillary Unger MD [address] [place] [address] Assigned PCP 05/03/18 07/18/18 Nelson Arroyo PA-C [address] [place] [address] Assigned PCP 07/05/18 07/29/20 Chinyere Barbour Personal Advocate & Liaison (PAL) 01/31/20 04/26/20 Nelson Arroyo PA-C [address] [place] [address] Assigned PCP 07/30/20 Pietro Wills MD [address] [place] [address] Assigned Heart and Vascular Provider 12/14/22 Tank Bucio MD [address], [facility] [address] [place] [address] Physician printing sign machine operator 12/01/23 documented as of this encounter
--- OUTSIDE RECORDS SUMMARY | 2024-06-02 16:57 | XMS_ITS | Encounter Summary ---
Author Organization [place] Address [address] [place] [address] Care Team Providers Care Machine Shop Supervisor Name Role Phone Salina Doherty MD Unavailable [phone] Carrillo Ware APRN BORDER POLICE Unavailable Hillary Unger MD Primary Care P rovider [facility] Unavailable [phone] Nelson Arroyo PA-C Unavailable Hillary Unger MD Unavailable Hillary Unger MD Unavailable Hillary Unger MD Unavailable Nelson Arroyo PA-C Unavailable [phone] Nelson Arroyo PA-C Primary Care Provider Chinyere Barbour Unavailable Unavailable Nelson Arroyo PA-C Unavailable [phone] Pietro Wills MD Unavailable [phone] Tank Bucio MD Unavailable [phone] Encounter Details Date Type Department Care Team (Late st Contact Info) Description 11/13/2016 [facility] [place] Advice [facility] Mental Health & Addiction [address] [place] [address] Solitario Angelica Gautam, FILL TECHNICIAN [address] [place] [address] Social History Tobacco Use Types Packs/Day Years [...] PM CDT 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:44 AM GEOLOGICAL SCOUT Gender Identity Female 10/03/2020 8:33 PM CDT Sexual Orientation Straight 07/01/2018 3: 40 PM GEOLOGICAL SCOUT documented as of this encounter Plan of Treatment Not on file documented as of this encounter Visit Diagnoses Not on filedocumented in this encounter Additional Health Concerns Assessment Noted Time PHQ-9 Depression Total Score: 4 10/06/19 17 7:28 AM CDT documented as of this encounter Care Teams Machine Shop Supervisor Relationship Specialty Start Date End Date Hillary Unger MD [address] [place] [address] PCP - General Internal Medicine 08/21/15 08/05/18 Nelson Arroyo PA-C [address] [place] [address] PCP - Assigned PCP 04/12/18 05/02/18 Hillary Unger MD [address] [place] [address] PCP - Assigned PCP 02/01/18 04/11/18 Hillary Unger MD [address] [place] [address] PCP - Assigned PCP 05/03/18 07/07/18 Nelson Arroyo PA-C [address] [place] [address] PCP - General Physician Audiology Doctor - Medical 08/06/18 Salina Doherty MD Internal Medicine 12/01/14 Carrillo Ware APRN BORDER POLICE [address] [place] [address] Nurse Practitioner Nurse Practitioner 12/16/14 Angelica Jerez FILL TECHNICIAN [facility] [address] [place], [place] [address] Nurse Practitioner Nurse Practitioner - Family 07/12/16 Hillary Unger MD [address] [place] [address] Assigned PCP 05/03/18 07/18/18 Nelson Arroyo PA-C [address] [place] [address] Assigned PCP 07/05/18 07/29/20 Chinyere Barbour Personal Advocate & Liaison (PAL) 01/31/20 04/26/20 Nelson Arroyo PA-[place] [address] [place] [address] Assigned PCP 07/30/20 Pietro Wills MD [address] [place] [address] Assigned Heart and Vascular Provider 12/14/22 Tank Bucio MD [address], [facility] [address] [place] [address] Physician fighter pilot 12/01/23 documented as of this encounter
--- OUTSIDE RECORDS SUMMARY | 2024-06-02 16:57 | XMS_ITS | Encounter Summary ---
Author Organization [facility] Address [address] [place] [address] Care Team Providers Care Hobbies And Crafts Sales Representative Name Role Phone Salina Doherty MD Unavailable [phone] Carrillo Ware APRN VETERANS' COUNSELOR Unavailable [phone] Hillary Unger MD Primary Care P ro[facility]ider [facility] Unavailable [phone] Nelson Arroyo PA-C Unavailable [phone] Hillary Unger MD Unavailable Hillary Unger MD Unavailable Hillary Unger MD Unavailable Nelson Arroyo PA-C Unavailable [phone] Nelson Arroyo PA-C Primary Care Provider Chinyere Barbour Unavailable Unavailable Nelson Arroyo PA-C Unavailable [phone] Pietro Wills MD Unavailable [phone] Tank Bucio MD Unavailable [phone] Encounter Details Date Type Department Care Team (Late st Contact Info) Description 11/11/2016 [facility] Mental Health & Addiction [address] [place] [phone] Solitario Angelica Gautam, RESOLUTION REP [address] [place], [place] [phone] Social History Tobacco Use Types Packs/Day Years [...] PM CDT 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 documented in this encounter Plan of Treatment Not on file documented as of this encounter Visit Diagnoses Not on filedocumented in this encounter Additional Health Concerns Assessment Noted Time PHQ-9 Depression Total Score: 4 10/06/19 17 7:28 AM CDT documented as of this encounter Care Teams Hobbies And Crafts Sales Representative Relationship Specialty Start Date End Date Hillary Unger [place] [facility] [place] [address] PCP - General Internal Medicine 08/21/15 08/05/18 Nelson Arroyo PA-C [address] [place] [address] PCP - Assigned PCP 04/12/18 05/02/18 Hillary Unger MD [address] [place] [address] PCP - Assigned PCP 02/01/18 04/11/18 Hillary Unger MD [address] [place] [address] PCP - Assigned PCP 05/03/18 07/07/18 Nelson Arroyo PA-C [address] [place], [place] [id number] PCP - General Physician Brand Strategy Manager - Medical 08/06/18 Salina Doherty MD Internal Medicine 12/01/14 Carrillo Ware APRN VETERANS' COUNSELOR [address] [place] [address] Nurse Practitioner Nurse Practitioner 12/16/[address] Angelica Jerez NP [facility] [address] [place] [address] Nurse Practitioner Nurse Practitioner - Family 07/12/16 Hillary Unger MD [address] [place] [address] Assigned PCP 05/03/18 07/18/18 Nelson Arroyo PA-C [address] [address] Assigned PCP 07/05/18 07/29/20 Chinyere Barbour Personal Advocate & Liaison (PAL) 01/31/20 04/26/20 Nelson Arroyo PA-C [address] [place] [address] Assigned PCP 07/30/20 Pietro Wills MD [address] [place] 789975 Assigned Heart and Vascular Provider 12/14/22 Tank Bucio MD [address] [facility], [address] [address] Physician technical support specialist 12/01/23 documented as of this encounter
--- OUTSIDE RECORDS SUMMARY | 2024-06-02 16:57 | XMS_ITS | Encounter Summary ---
Author Organization [place] Address [address] [place] [address] Care Team Providers Care Recruitment Director Name Role Phone Salina Doherty MD Unavailable [phone] Carrillo Ware APRN RADIOLOGY THERAPIST Unavailable [phone] Hillary Unger MD Primary Care P rovider [facility] NP Unavailable [phone] Nelson Arroyo PA-C Unavailable Hillary Ungre MD Unavailable Hillary Unger MD Unavailable Hillary Unger MD Unavailable Nelson Arroyo PA-C Unavailable [phone] Nelson Arroyo PA-C Primary Care Provider [phone] Chinyere Barbour Unavailable Unavailable Nelson Arroyo PA-C Unavailable [phone] Pietro Wills MD Unavailable [phone] Tank Bucio MD Unavailable [phone] Encounter Details Date Type Department Care Team (Late st Contact Info) Description 04/15/2017 [facility] Mental Health & Addiction [address] [place] [address] Solitario Angelica Gautam, LONG DISTANCE OPERATOR [address] [place] [address] Social History Tobacco Use Types Packs/Day Years [...] PM CDT 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:44 AM 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 Gender Identity Female 10/03/2020 8:33 PM CDT Sexual Orientation Straight 07/01/2018 3: 40 PM 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 documented as of this encounter Plan of Treatment Not on file documented as of this encounter Visit Diagnoses Not on filedocumented in this encounter Additional Health Concerns Assessment Noted Time PHQ-9 Depression Total Score: 4 04/04/20 17 7:13 AM 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 documented as of this encounter Care Teams Recruitment Director Relationship Specialty Start Date End Date Hillary Unger MD [address] [place] [address] PCP - General Internal Medicine 08/21/15 08/05/18 Nelson Arroyo PA-C [address] [place] [address] PCP - Assigned PCP 04/12/18 05/02/18 Hillary Unger MD [address] [place] [address] PCP - Assigned PCP 02/01/18 04/11/18 Hillary Unger MD [address] [place] [address] PCP - Assigned PCP 05/03/18 07/07/18 Nelson Arroyo PA-C [address] [place] [address] PCP - General Physician Coal Tram Driver - Medical 08/06/18 Salina Doherty MD Internal Medicine 12/01/14 Carrillo Ware APRN RADIOLOGY THERAPIST [address] [place] [address] Nurse Practitioner Nurse Practitioner 12/16/14 Angelica Jerez LONG DISTANCE OPERATOR [facility] [address] [place], [place] 6[address] Nurse Practitioner Nurse Practitioner - Family 07/12/16 Hillary Unger MD [address] [place] [address] Assigned PCP 05/03/18 07/18/18 Nelson Arroyo PA-C [address] [place] [address] Assigned PCP 07/05/18 07/29/20 Chinyere Barbour Personal Advocate & Liaison (PAL) 01/31/20 04/26/20 Nelson Arroyo PA-C [address] [place] [address] Assigned PCP 07/30/20 Pietro Wills MD [address] [place], [place] [address] Assigned Heart and Vascular Provider 12/14/22 Tank Bucio MD [address] [place], [facility] [address] [place] [address] Physician supervisor publications production 12/01/23 documented as of this encounter
--- OUTSIDE RECORDS SUMMARY | 2024-06-02 16:57 | XMS_ITS | Encounter Summary ---
Author Organization [facility] Address [address] [place] [address] Care Team Providers Care User Interface Engineer Name Role Phone Salina Doherty MD Unavailable [phone] Carrillo Ware APRN MEN'S AND BOYS' CLOTHING SALESPERSON Unavailable Hillary Unger MD Primary Care P rovider [facility] NP Unavailable [phone] Nelson Arroyo PA-C Unavailable [phone] Hillary Unger MD Unavailable Hillary Unger MD Unavailable Hillary Unger MD Unavailable Nelson Arroyo PA-C Unavailable [phone] Nelson Arroyo PA-C Primary Care Provider [phone] Chinyere Barbour Unavailable Unavailable Nelson Arroyo PA-C Unavailable [phone] Pietro Wills MD Unavailable [phone] Tank Bucio MD Unavailable [phone] Encounter Details Date Type Department Care Team (Late st Contact Info) Description 04/02/2017 [facility] Mental Health & Addiction [address] [place] [phone] Angelica Jerez CANCER GENETIC COUNSELOR [address] [place], [place] [phone] Social History Tobacco Use Types Packs/Day Years [...] PM CDT 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 Thank you! Ila Veliz RN ER MAN documented in this encounter Plan of Treatment Not on file documented as of this encounter Visit Diagnoses Not on filedocumented in this encounter Additional Health Concerns Assessment Noted Time PHQ-9 Depression Total Score: 3 12/07/19 17 2:21 PM CDT documented as of this encounter Care Teams User Interface Engineer Relationship Specialty Start Date End Date Hillary Unger MD [address] [place] [address] PCP - General Internal Medicine 08/21/15 08/05/18 Nelson Arroyo PA-C [address] [place] [address] PCP - Assigned PCP 04/12/18 05/02/18 Hillary Unger MD [address] [place] [address] PCP - Assigned PCP 02/01/18 04/11/18 Hillary Unger MD [address] [place] [address] PCP - Assigned PCP 05/03/18 07/07/18 Nelson Arroyo PA-C [address] [place] [address] PCP - General Physician Medicare Coordinator - Medical 08/06/18 Salina Doherty MD Internal Medicine 12/01/14 Carrillo Ware APRN MEN'S AND BOYS' CLOTHING SALESPERSON [address] [place] [address] Nurse Practitioner Nurse Practitioner 12/16/14 Angelica Jerez NP [facility] [address] [place] [address] Nurse Practitioner Nurse Practitioner - Family 07/12/16 Hillary Unger MD [address] [place] [address] Assigned PCP 05/03/18 07/18/18 Nelson Arroyo PA-C [address] [address] Assigned PCP 07/05/18 07/29/20 Chinyere Barbour Personal Advocate & Liaison (PAL) 01/31/20 04/26/20 Nelson Arroyo PA-C [address] [place] [address] Assigned PCP 07/30/20 Pietro Wills MD [address] [address] Assigned Heart and Vascular Provider 12/14/22 Tnak Bucio MD [address] [facility] [address] [address] Physician simonizer 12/01/23 documented as of this encounter
--- OUTSIDE RECORDS SUMMARY | 2024-06-02 16:57 | XMS_ITS | Encounter Summary ---
Author Organization [facility] Address [address] [place] [address] Care Team Providers Care Inspector Tester Sorter Name Role Phone Salina Doherty MD Unavailable [phone] Carrillo Ware APRN [employer] SUPERINTENDENT Unavailable Hillary Unger MD Primary Care P rovider [facility] Unavailable [phone] Nelson Arroyo PA-C Unavailable Hillary Unger MD Unavailable Hillary Unger MD Unavailable Hillary Unger MD Unavailable Nelson Arroyo PA-C Unavailable [phone] Nelson Arroyo PA-C Primary Care Provider Chinyere Barbour Unavailable Unavailable Nelson Arroyo PA-C Unavailable [phone] Pietro Wills MD Unavailable [phone] Tank Bucio MD Unavailable [phone] Reason for Visit * Reason Onset Date Comments Refill Request 03/02/2017 Encounter Details Date Type Department Care Team (Late st Contact Info) Description 03/02/[address] 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 Refill sent 02/13. Replied to Pt to determine if she rec'd that refill. documented in this encounter Plan of Treatment Not on file documented as of this encounter Visit Diagnoses Diagnosis Persistent insomnia Persistent disorder of initiating or maintaining sleep documented in this encounter Additional Health Concerns Assessment Noted Time PHQ-9 Depression Total Score: 3 12/07/19 17 2:21 PM CDT documented as of this encounter Care Teams Inspector Tester Sorter Relationship Specialty Start Date End Date Hillary Unger MD [address] [place] [address] PCP - General Internal Medicine 08/21/15 08/05/18 Nelson Arroyo PA-C [address] [place] [address] PCP - Assigned PCP 04/12/18 05/02/18 Hillary Unger MD [address] [place], [place] [address] PCP - Assigned PCP 02/01/18 04/11/18 Hillary Unger MD [address] [place] [address] PCP - Assigned PCP 05/03/18 07/07/18 Nelson Arroyo PA-C [address] [place] [address] PCP - General Physician Construction Specialist - Medical 08/06/18 Salina Doherty MD Internal Medicine 12/01/14 Carrillo Ware APRN [employer] SUPERINTENDENT [address] [place] [address] Nurse Practitioner Nurse Practitioner 12/16/14 Angelica Jerez NP [facility] [address] [place], [place] 7[address] Nurse Practitioner Nurse Practitioner - Family 07/12/16 Hillary Unger MD [address] [place] [address] Assigned PCP 05/03/18 07/18/18 Nelson Arroyo PA-C [address] [place] [address] Assigned PCP 07/05/18 07/29/20 Chinyere Barbour Personal Advocate & Liaison (PAL) 01/31/20 04/26/20 Nelson Arroyo PA-C [address] [place] [address] Assigned PCP 07/30/20 Pietro Wills MD [address] [place] [address] Assigned Heart and Vascular Provider 12/14/22 Tank Bucio MD [address] [facility] [address] [place] [address] Physician wildlife veterinarian 12/01/23 documented as of this encounter
--- OUTSIDE RECORDS SUMMARY | 2024-06-02 16:57 | XMS_ITS | Encounter Summary ---
Author Organization [place] Address [address] [place] [address] Care Team Providers Care Barge Master Name Role Phone Salina Doherty MD Unavailable [phone] Carrillo Ware APRN MANAGER CENTER Unavailable Hillary Unger MD Primary Care P rovider [facility] Unavailable [phone] Nelson Arroyo PA-C Unavailable [phone] Hillary Unger MD Unavailable Hillary Unger MD Unavailable Hillary Unger MD Unavailable Nelson Arroyo PA-C Unavailable [phone] Nelson Arroyo PA-C Primary Care Provider [phone] Chinyere Barbour Unavailable Unavailable Nelson Arroyo PA-C Unavailable [phone] Pietro Wills MD Unavailable [phone] Tank Bucio MD Unavailable [phone] Reason for Visit * Reason Onset Date Comments Refill Request 01/07/2017 Encounter Details Date Type Department Care Team (Late st Contact Info) Description [facility]07[facility]2017 [facility] & Addiction [address] [place] [phone] Angelica Jerez, PORT CDL A DRIVER [address] [place] [address] Refill Request Social History Tobacco Use Types [...] PM CDT 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 Last Written Prescription Date: 12/06/16 Last Fill Quantity: 30, # refills: 0 Last Office Visit with G, P or [facility] prescribing provider: 12/06/16 No appointment scheduled. From 12/06/16 OV with Angelica Jerez, PhD, RECYCLING SPECIALIST, MANAGER CENTER Assessment: Nidia Crystal reports feeling stable on medications. Medication side effects and alternatives were reviewed. Health promotion activities recommended and reviewed today. Discussed ongoing plan to continue to reduce Klonopin (clonazepam) use. Klonopin (clonazepam) prescription printed today and faxed to pharmacy today. Adderall (amphetamine salts) is expensive over $100- lokoed into - may not have ran her insurance. Discussed if we have ongoing improvement, may return care back to Primary Care Provider. ?? Treatment Plan: ?? Change Wellbutrin (buproprion) to SR 200 mg by mouth daily. ?? Continue Seroquel (quetiapine) 100 mg by mouth daily at bedtime. ?? Continue Neurontin (gabapentin) 300 mg by mouth daily at bedtime for anxiety and insomnia. ?? Continue Adderall XR 30 mg in AM and 10 mg IR during day per primary care provider. ?? Continue Vistaril/Atarax (hydroxyzine) 50 - 100 mg by mouth daily as needed for sleep and anxiety. ?? Continue Klonopin (clonazepam) 1 mg as needed for anxiety. ?? Continue all other medications as reviewed per electronic medical record today. ?? All questions addressed. Education and counseling completed regarding risks and benefits of medications and psychotherapy options. ?? Safety plan was reviewed. To the Emergency Department as needed or call after hours crisis line at [phone] or [phone]. ?? Continue individual/group therapy as planned. ?? Schedule an appointment with me in 6-8 weeks or sooner as needed. Call [facility] at [phone] to schedule. ?? Follow up with primary care provider as planned or for acute medical concerns. ?? Call the psychiatric nurse line with medication questions or concerns at [phone]. ?? My Practice Policy was reviewed and signed: YES ?? Nosopharmhart may be used to communicate with your provider, but this is not intended to be used for emergencies. ?? Administrative Billing: Time spent with patient was 30 minutes and greater than 50% of time or 20 minutes was spent in counseling and coordination of care. ?? Patient Status: Patient will continue to be seen for ongoing consultation and stabilization. ?? Signed: Angelica Jerez, PhD, RECYCLING SPECIALIST, MANAGER CENTER Psychiatry [facility] Date: 01/09/17 Query Report Page#: 1 Patient Rx History Report JERAMIE Pineda Search Criteria: Last Name 'Jeramie' and First Name 'A' and = '[birth year]' and Request Period ='01/10/16' to '01/09/17' - 9 out of 9 Recipients Selected. Fill Date Product, Str, Form Qty Days Pt ID Prescriber Written RX# N/R* Pharm MED+ ------ ---- --------- ----- --------- ------ 12/23/2016 DEXTROAMP-AMPHETAMIN 10 MG TAB 60.00 30 [id number] 12/17/2016 [id number] N [id number] 00.0 12/06/2016 DEXTROAMP-AMPHET ER 30 MG CAP 31.00 31 [id number] 10/18/2016 [id number] N [id number] 12/06/2016 CLONAZEPAM 1 MG TABLET 30.00 30 [id number] 12/06/2016 [id number] N [id number] 00.0 12/06/2016 GABAPENTIN 300 MG CAPSULE 30.00 30 [id number] 12/06/2016 [id number] N [id number] 00.0 11/21/2016 DEXTROAMP-AMPHETAMIN 10 MG TAB 60.00 30 [id number] 11/21/2016 [id number] N [id number] 00.0 11/08/2016 GABAPENTIN 300 MG CAPSULE 30.00 30 [id number] 10/04/2016 [id number] R [id number] 00.0 10/22/2016 DEXTROAMP-AMPHETAMIN 10 MG TAB 60.00 30 [id number] 10/18/2016 [id number] N [id number] 00.0 10/15/2016 CLONAZEPAM 1 MG TABLET 30.00 30 [id number] 10/15/2016 [id number] N [id number] 00.0 10/04/2016 GABAPENTIN 300 MG CAPSULE 30.00 30 [id number] 10/04/2016 [id number] N [id number] 00.0 09/10/2016 CLONAZEPAM 1 MG TABLET 30.00 30 [id number] 09/09/2016 [id number] N [id number] 00.0 08/30/2016 DEXTROAMP-AMPHET ER 30 MG CAP 31.00 31 [id number] 08/23/2016 [id number] N [id number] 08/30/2016 DEXTROAMP-AMPHETAMIN 10 MG TAB 30.00 30 [id number] 08/19/2016 [id number] N [id number] 00.0 08/16/2016 OXYCODONE-ACETAMINOPHEN 5-325 10.00 2 [id number] 08/16/2016 [id number] N [id number] 37.5 08/09/2016 CLONAZEPAM 1 MG TABLET 30.00 30 [id number] 07/12/2016 [id number] R [id number] 00.0 08/08/2016 OXYCODONE-ACETAMINOPHEN 5-325 12.00 3 [id number] 08/08/2016 [id number] N [id number] 30.0 08/08/2016 GABAPENTIN 300 MG CAPSULE 30.00 30 [id number] 07/12/2016 [id number] R [id number] 00.0 07/18/2016 GABAPENTIN 100 MG CAPSULE 30.00 30 [id number] 07/18/2016 [id number] N [id number] 00.0 07/16/2016 DEXTROAMP-AMPHET ER 30 MG CAP 31.00 31 [id number] 07/11/2016 [id number] N [id number] 07/16/2016 DEXTROAMP-AMPHETAMIN 10 MG TAB 30.00 30 [id number] 07/11/2016 [id number] N [id number] 00.0 07/12/2016 GABAPENTIN 300 MG CAPSULE 30.00 30 [id number] 07/12/2016 [id number] N [id number] 00.0 07/12/2016 CLONAZEPAM 1 MG TABLET 30.00 30 [id number] 07/12/2016 [id number] N [id number] 00.0 06/17/2016 DEXTROAMP-AMPHETAMIN 10 MG TAB 30.00 30 [id number] 06/06/2016 [id number] N [id number] 00.0 06/17/2016 DEXTROAMP-AMPHET ER 30 MG CAP 31.00 31 [id number] 06/06/2016 [id number] N [id number] 05/03/2016 DEXTROAMP-AMPHET ER 30 MG CAP 31.00 31 [id number] 04/29/2016 [id number] N [id number] 05/03/2016 DEXTROAMP-AMPHETAMIN 10 MG TAB 30.00 30 [id number] 04/29/2016 [id number] N [id number] 00.0 04/03/2016 CLONAZEPAM 0.5 MG TABLET 90.00 30 [id number] 03/05/2016 [id number] R [id number] 00.0 03/25/2016 DEXTROAMP-AMPHET ER 30 MG CAP 31.00 31 [id number] 03/22/2016 [id number] N [id number] 03/25/2016 DEXTROAMP-AMPHETAMIN 10 MG TAB 30.00 30 [id number] 03/22/2016 [id number] N [id number] 00.0 03/05/2016 CLONAZEPAM 0.5 MG TABLET 90.00 30 [id number] 03/05/2016 [id number] N [id number] 00.0 02/20/2016 ALPRAZOLAM 0.25 MG TABLET 20.00 6 [id number] 02/20/2016 [id number] N [id number] 00.0 02/19/2016 DEXTROAMP-AMPHET ER 30 MG CAP 30.00 30 [id number] 12/20/2015 [id number] N [id number] 02/19/2016 DEXTROAMP-AMPHETAMIN 10 MG TAB 30.00 30 [id number] 12/20/2015 [id number] N [id number] 00.0 01/20/2016 DEXTROAMP-AMPHETAMIN 10 MG TAB 30.00 30 [id number] 12/20/2015 [id number] N [id number] 00.0 01/20/2016 DEXTROAMP-AMPHET ER 30 MG CAP 30.00 30 [id number] 12/20/2015 [id number] N [id number] 01/17/2016 ALPRAZOLAM 0.25 MG TABLET 20.00 6 [id number] 01/17/2016 [id number] N [id number] 00.0 *N/R N=New R=Refill +MED Daily Per CDC guidance, the conversion factors and associated daily morphine milligram equivalents for drugs prescribed as part of medication-assisted treatment for opioid use disorder should not be used to benchmark against dosage thresholds meant for opioids * Telephone Encounter - Marina Andrade RN - 01/08/2017 1:05 PM CDT[facility] Original authorizing provider: JACQUE Novak would like a refill of the following medications: hydrOXYzine (ATARAX) 50 MG tablet [Angelica Jerez NP] clonazePAM (KLONOPIN) 1 MG tablet [Angelica Jerez NP] Preferred pharmacy: [address] Comment: documented in this encounter Plan of Treatment Not on file documented as of this encounter Visit Diagnoses Diagnosis Persistent insomnia Persistent disorder of initiating or maintaining sleep SHANTELL (generalized anxiety disorder) Generalized anxiety disorder documented in this encounter Additional Health Concerns Assessment Noted Time PHQ-9 Depression Total Score: 3 12/07/19 17 2:21 PM CDT documented as of this encounter Care Teams Barge Master Relationship Specialty Start Date End Date Hillary Unger MD [address] [place] [address] PCP - General Internal Medicine 08/21/15 08/05/18 Nelson Arroyo PA-C [address] [facility] [place] [address] PCP - Assigned PCP 04/12/18 05/02/18 Hillary Unger MD [address] [place] [address] PCP - Assigned PCP 02/01/18 04/11/18 Hillary Unger MD [address] [place] [address] PCP - Assigned PCP 05/03/18 07/07/18 Nelson Arroyo PA-C [address] [place], [place] [address] PCP - General Physician Merchandise Appraiser - Medical 08/06/18 Salina Doherty MD Internal Medicine 12/01/14 Carrillo Waer APRN MANAGER CENTER [address] [place] [address] Nurse Practitioner Nurse Practitioner 12/16/14 Angelica Jerez NP [facility] [address] [place] [address] Nurse Practitioner Nurse Practitioner - Family 07/12/16 Hillary Unger MD [address] [place] [address] Assigned PCP 05/03/18 07/18/18 Nelson Arroyo PA-C [address] [address] Assigned PCP 07/05/18 07/29/20 Chinyere Barbour Personal Advocate & Liaison (PAL) 01/31/20 04/26/20 Nelson Arroyo PA-C [address] [place] [address] Assigned PCP 07/30/20 Pietro Wills MD [address] [place] [address] Assigned Heart and Vascular Provider 12/14/22 Tank Bucio MD [address] [facility] [address] [place], [place] [address] Physician rounding machine tender 12/01/23 documented as of this encounter
--- OUTSIDE RECORDS SUMMARY | 2024-06-02 16:57 | XMS_ITS | Encounter Summary ---
Author Organization [facility] Address [address] [place] [address] Care Team Providers Care Broadcast Operations Director Name Role Phone Salina Doherty MD Unavailable [phone] Carrillo Ware APRN CHILD CARE COUNSELOR Unavailable Hillary Unger MD Primary Care P rovider [facility] Unavailable Nelson Arroyo PA-C Unavailable Hillary Unger MD Unavailable Hillary Unger MD Unavailable Hillary Unger MD Unavailable Nelson Arroyo PA-C Unavailable [phone] Nelson Arroyo PA-C Primary Care Provider Chinyere Barbour Unavailable Unavailable Nelson Arroyo PA-C Unavailable [phone] Pietro Wills MD Unavailable [phone] Tank Bucio MD Unavailable [phone] Reason for Visit * Reason Onset Date Comments Refill Request 03/21/2017 Encounter Details Date Type Department Care Team (Late st Contact Info) Description [facility]/21[facility] [address] [place] [address] Angelica Jerez, CLINICAL RESOURCE DIRECTOR [address] [place], [place] [id number] Refill Request Social History Tobacco Use Types [...] PM CDT 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:44 AM HUMAN RESOURCES ASSISTANT Gender Identity Female 10/03/2020 8:33 PM CDT Sexual Orientation Straight 07/01/2018 3: 40 PM HUMAN RESOURCES ASSISTANT documented as of this encounter Plan of Treatment Not on file documented as of this encounter Visit Diagnoses Diagnosis SHANTELL (generalized anxiety disorder) Generalized anxiety disorder Persistent insomnia Persistent disorder of initiating or maintaining sleep documented in this encounter Additional Health Concerns Assessment Noted Time PHQ-9 Depression Total Score: 3 12/07/19 17 2:21 PM CDT documented as of this encounter Care Teams Broadcast Operations Director Relationship Specialty Start Date End Date Hillary Unger MD [address] [place] [address] PCP - General Internal Medicine 08/21/15 08/05/18 Nelson Arroyo PA-C [address] [place] [address] PCP - Assigned PCP 04/12/18 05/02/18 Hillary Unger MD [address] [place] [address] PCP - Assigned PCP 02/01/18 04/11/18 Hillary Unger MD [address] [place] [address] PCP - Assigned PCP 05/03/18 07/07/18 Nelson Arroyo PA-C [address], [place] [address] PCP - General Physician Scrap Cutter - Medical 08/06/18 Salina Doherty MD Internal Medicine 12/01/14 Carrillo Ware APRN CHILD CARE COUNSELOR [address] [place] [address]415 Nurse Practitioner Nurse Practitioner 12/16/14 Angelica Jerez NP [facility] [address] [place] [address] Nurse Practitioner Nurse Practitioner - Family 07/12/16 Hillary Unger MD [address] [place] [address] Assigned PCP 05/03/18 07/18/18 Nelson Arroyo PA-C [address] [address] Assigned PCP 07/05/18 07/29/20 Chinyere Barbour Personal Advocate & Liaison (PAL) 01/31/20 04/26/20 Nelson Arroyo PA-C [address] [address] Assigned PCP 07/30/20 Pietro Wills MD [address] [place] [address] Assigned Heart and Vascular Provider 12/14/22 Tank Bucio MD [address] [address] Physician javascript developer 12/01/23 documented as of this encounter
--- OUTSIDE RECORDS SUMMARY | 2024-06-02 16:57 | XMS_ITS | Encounter Summary ---
Author Organization [place] Address [address] [place] [address] Care Team Providers Care Plate Glass Polisher Name Role Phone Salina Doherty MD Unavailable [phone] Carrillo Ware APRN BOBBIN MARKER Unavailable Hillary Unger MD Primary Care P rovider [facility] Unavailable [phone] Nelson Arroyo PA-C Unavailable [phone] Hillary Unger MD Unavailable Hillary Unger MD Unavailable Hillary Unger MD Unavailable Nelson Arroyo PA-C Unavailable [phone] Nelson Arroyo PA-C Primary Care Provider Chinyere Barbour Unavailable Unavailable Nelson Arroyo PA-C Unavailable [phone] Pietro Wills MD Unavailable [phone] Tank Bucio MD Unavailable [phone] Reason for Visit * Reason Onset Date Comments Mass 05/30/2017 Golf-ball sized painful lump on head Encounter Details Date Type Department Care Team (Late st Contact Info) Description 05/30/2017 [facility] [address] [place] [address] [place] [address] Hillayr Unger MD [address] [place] [address] Mass (Golf-ball sized painful lump on head) Social History Tobacco Use Types Packs/Day Years [...] PM CDT 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:44 AM RESOLUTION SPECIALIST Gender Identity Female 10/03/2020 8:33 PM CDT Sexual Orientation Straight 07/01/2018 3: 40 PM RESOLUTION SPECIALIST documented as of this encounter Miscellaneous Notes * Telephone Encounter - Shira Chow CMA - 05/30/2017 6:49 PM RESOLUTION SPECIALIST Tried calling pt on her cell, no answer. Spoke to Nancy ROLDAN, who thought it would be best to recommend that she go to an urgent care seeing as how we really don't have enough information to know if the pt is dealing with something serious or not. Will route to Dr. Tran as high-priority. LUTION SPECIALIST * Telephone Encounter - Shira Chow CMA - 05/30/2017 6:28 PM RESOLUTION SPECIALIST Routed to Dr. Tran. LUTION SPECIALIST documented in this encounter Plan of Treatment Not on file documented as of this encounter Visit Diagnoses Not on filedocumented in this encounter Additional Health Concerns Assessment Noted Time PHQ-9 Depression Total Score: 4 04/04/20 17 7:13 AM RESOLUTION SPECIALIST documented as of this encounter Care Teams Plate Glass Polisher Relationship Specialty Start Date End Date Hillary Unger MD [address] [place] [address] PCP - General Internal Medicine 08/21/15 08/05/18 Nelson Arroyo PA-C [address] [place] [address] PCP - Assigned PCP 04/12/18 05/02/18 Hillary Unger MD [address] [place] [address] PCP - Assigned PCP 02/01/18 04/11/18 Hillary Unger MD [address] [place] [address] PCP - Assigned PCP 05/03/18 07/07/18 Nelson Arroyo PA-C [address] [place] [address] PCP - General Physician Dining Service Supervisor - Medical 08/06/18 Salina Doherty MD Internal Medicine 12/01/14 Carrillo Ware APRN BOBBIN MARKER [address] [place] [address] 588885 Nurse Practitioner Nurse Practitioner 12/16/14 Angelica Jerez NP [facility] [address] [place], [place] 648067 Nurse Practitioner Nurse Practitioner - Family 07/12/16 Hillary Unger MD [address] [place] [address] Assigned PCP 05/03/18 07/18/18 Nelson Arroyo PA-C [address] [place] [address] Assigned PCP 07/05/18 07/29/20 Chinyere Barbour Personal Advocate & Liaison (PAL) 01/31/20 04/26/20 Nelson Arroyo PA-C [address] [address] Assigned PCP 07/30/20 Pietro Wills MD [address] [place] [address] Assigned Heart and Vascular Provider 12/14/22 Tank Bucio MD [address], [facility] [address] [place] [address] Physician diesel mechanic farm 12/01/23 documented as of this encounter
--- OUTSIDE RECORDS SUMMARY | 2024-06-02 16:58 | XMS_ITS | Encounter Summary ---
Author Organization [place] Address [address] [place] [address] Care Team Providers Care Oxide Furnace Tender Name Role Phone Salina Doherty MD Unavailable [phone] Carrillo Ware APRN SENIOR STAFF CONSULTANT Unavailable Hillary Unger MD Primary Care P rovider Nelson Arroyo PA-C Primary Care Provider [phone] Hillary Unger MD Primary Care P rovider Angelica Jerez NP Unavailable [phone] Nelson Arroyo PA-C Unavailable [phone] Hillary Unger MD Unavailable Hillary Unger MD Unavailable Hillary Unger MD Unavailable Nelson Arroyo PA-C Unavailable [phone] Nelson Arroyo PA-C Primary Care Provider +[phone] Chinyere Barbour Unavailable Unavailable Nelson Arroyo PA-C Unavailable [phone] Pietro Wills MD Unavailable [phone] Tank Bucio MD Unavailable [phone] Reason for Visit * Reason Onset Date Comments Vaginal Problem 02/01/2015 Infection Encounter Details Date Type Department Care Team (Late st Contact Info) Description 02/01/2015 [facility] Medical Advice [address], [address] [place] [address] Nelson Arroyo PA-C [address] [place] [address] Vaginal Problem (Infection) Social History Tobacco Use Types Packs/Day Years Used Date Smoking Tobacco: Every Day Cigarettes 0.5 12 Started: 06/05/2012 Smokeless Tobacco: Never Quit: 06/01/2014 Comments:Started 17 y/o Alcohol Use Standard Drinks/Week Comments Yes 0 (1 standard drink = 0.6 oz pur e alcohol) Once week, 2x week Comments No Sex and Gender Information Value Date Recorded Sex Assigned at Female 10/03/2020 8:33 PM CDT 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:44 AM SUPERVISOR PIT AND AUXILIARIES Gender Identity Female 10/03/2020 8:33 PM CDT Sexual Orientation Straight 07/01/2018 3: 40 PM SUPERVISOR PIT AND AUXILIARIES documented as of this encounter Plan of Treatment Not on file documented as of this encounter Visit Diagnoses Diagnosis Pelvic pain in female- Primary Unspecified symptom associated with female genital organs documented in this encounter Care Teams Oxide Furnace Tender Relationship Specialty Start Date End Date Hillary Unger MD [address] [place] [address] PCP - General Internal Medicine 01/05/15 08/02/15 Nelson Arroyo PA-C [address] [place] [address] PCP - General Physician Sausage Meat Trimmer - Medical 08/03/15 08/20/15 Hillary Unger MD [address] [place] [address] PCP - General Internal Medicine 08/21/15 08/05/18 Nelson Arroyo PA-C [address] [place] [address] PCP - Assigned PCP 04/12/18 05/02/18 Hillary Unger MD [address] [place], [place] 8[address] PCP - Assigned PCP 02/01/18 04/11/18 Hillary Unger MD [address] [place] [address] PCP - Assigned PCP 05/03/18 07/07/18 Nelson Arroyo PA-C [address] [place] [address] PCP - General Physician Sausage Meat Trimmer - Medical 08/06/18 Salina Doherty MD Internal Medicine 12/01/14 Carrillo Ware APRN SENIOR STAFF CONSULTANT [address] [place] [address] 239485 Nurse Practitioner Nurse Practitioner 12/16/14 Angelica Jerez NP [facility] [address] [place], [place] [id number] Nurse Practitioner Nurse Practitioner - Family 07/12/16 Hillary Unger MD [address] [place], [place] 451557 Assigned PCP 05/03/18 07/18/18 Nelson Arroyo PA-C [address], [place] [address] Assigned PCP 07/05/18 07/29/20 Chinyere Barbour Personal Advocate & Liaison (PAL) 01/31/20 04/26/20 Nelson Arroyo PA-C [address], [place] [address] Assigned PCP 07/30/20 Pietro Wills MD [address] [address] Assigned Heart and Vascular Provider 12/14/22 Tank Bucio MD [address], [address] [address] Physician cert pharmacy tech 12/01/23 documented as of this encounter
--- OUTSIDE RECORDS SUMMARY | 2024-06-02 16:58 | XMS_ITS | Encounter Summary ---
Author Organization [place] Address [address] [place] [address] Care Team Providers Care Waiter/Waitress Club Name Role Phone Salina Doherty MD Unavailable [phone] Kavon Cadena MD Unavailable [phone] Carrillo Ware APRN TALENT SOURCER Unavailable Salina Doherty MD Primary Care Provider [phone] Hillary Unger MD Primary Care P rovider Nelson Arroyo PA-C Primary Care Provider [phone] Hillary Unger MD Primary Care P rovider Angelica Jerez DELIVERY PROFESSIONAL Unavailable [phone] Nelson Arroyo PA-C Unavailable [phone] Hillary Unger MD Unavailable Hillary Unger MD Unavailable Hillary Unger MD Unavailable Nelson Arroyo PA-C Unavailable [phone] Nelson Arroyo PA-C Primary Care Provider [phone] Chinyere Barbour Unavailable Unavailable Nelson Arroyo PA-C Unavailable [phone] Pietro Wills MD Unavailable Tank Bucio MD Unavailable Encounter Details Date Type Department Care Team (Late st Contact Info) Description 01/12/2012 [facility] Extended Documentation [facility] [address] [place] [address] CiraCarin nam, MIXED ANIMAL VETERINARIAN, [place] [address] Social History Tobacco Use Types Packs/Day Years Used Date Smoking Tobacco: Never Alcohol Use Standard Drinks/Week Comments Yes 0 (1 standard drink = 0.6 oz pur e alcohol) every two weeks Comments No Sex and Gender Information Value Date Recorded Sex Assigned at Female 10/03/2020 8:33 PM CDT 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:44 AM V BLOCK SAW OPERATOR Gender Identity Female 10/03/2020 8:33 PM CDT Sexual Orientation Straight 07/01/2018 3: 40 PM V BLOCK SAW OPERATOR documented as of this encounter Plan of Treatment Not on file documented as of this encounter Visit Diagnoses Not on filedocumented in this encounter Care Teams Waiter/Waitress Club Relationship Specialty Start Date End Date Salina Doherty MD PCP - General Internal Medicine 12/27/14 01/04/15 Hillary Unger MD [address] [place] [address] PCP - General Internal Medicine 01/05/15 08/02/15 Nelson Arroyo PA-C [address] [place] [address] PCP - General Physician Wave Guide Assembler - Medical 08/03/15 08/20/15 Hillary Unger MD [address] [place] [address] PCP - General Internal Medicine 08/21/15 08/05/18 Nelson Arroyo PA-C [address] [place] [address] PCP - Assigned PCP 04/12/18 05/02/18 Hilalry Unger MD [address] [place] [address] PCP - Assigned PCP 02/01/18 04/11/18 Hillary Unger MD [address] [place] [address] PCP - Assigned PCP 05/03/18 07/07/18 Nelson Arroyo PA-C [address] [place] [address] PCP - General Physician Wave Guide Assembler - Medical 08/06/18 Salina Doherty MD Internal Medicine 12/01/14 [place] [address] [place] [address] Resident Rheumatology 12/01/14 12/15/14 Carrillo Ware APRN TALENT SOURCER [address] [place] [address] Nurse Practitioner Nurse Practitioner 12/16/14 Angelica Jerez NP [facility] [address] [place], [place] 7[address] Nurse Practitioner Nurse Practitioner - Family 07/12/16 Hillary Unger MD [address] [place] [address] Assigned PCP 05/03/18 07/18/18 Nelson Arroyo [place] [address] [place] [address] Assigned PCP 07/05/18 07/29/20 Chinyere Barbour Personal Advocate & Liaison (PAL) 01/31/20 04/26/20 Nelson Arroy[place] [address] [place] [address] Assigned PCP 07/30/20 Pietro Wills MD [address] [place] [address] Assigned Heart and Vascular Provider 12/14/22 Tank Bucio MD [address] [place] [address] Physician flume ride operator 12/01/23 documented as of this encounter
--- OUTSIDE RECORDS SUMMARY | 2024-06-02 16:58 | XMS_ITS | Encounter Summary ---
Author Organization [facility] Address [address] [place] [address]. [place] [address] Care Team Providers Care Form Setter/Driver Name Role Phone Salina Doherty MD Unavailable [phone] Carrillo Ware APRN SWEET DOUGH MIXER Unavailable SolitarioAngelica golden NP Unavailable [phone] Nelson Arroyo PA-C Unavailable [phone] Nelson Arroyo PA-C Primary Care Provider Chinyere Barbour Unavailable Unavailable Nelson Arroyo PA-C Unavailable Pietro Wills MD Unavailable Tank Bucio MD Unavailable Reason for Visit * Reason Onset Date Comments Medication Refill 12/03/2018 methocarbamol, clonazePAM, and traZODone Encounter Details Date Type Department Care Team (Late st Contact Info) Description 12/02/2018 Refill [place] [id number] [facility], [address] [place] [address] Nelson Arroyo PA-C [address] [place] [address] Medication Refill (methocarbamol, clonazePAM, and traZODone ) Social History Tobacco Use Types Packs/Day Years Used Date Smoking Tobacco: Former Cigarettes 0.5 2.8 0 06/05/2012 - 03/09/2015 Smokeless Tobacco: Current Last attempted to quit: 06/01/2014 Comments:Started 17 y/o Alcohol Use Standard Drinks/Week Comments Yes 0 (1 standard drink = 0.6 oz pur e alcohol) Occasionally PHQ-2 Answer Date Recorded PHQ-2 Score 4 08/06/2018 Comments No Sex and Gender Information Value Date Recorded Sex Assigned at Female 10/03/2020 8:33 PM CDT 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:44 AM TREATER HELPER Gender Identity Female 10/03/2020 8:33 PM CDT Sexual Orientation Straight 07/01/2018 3: 40 PM TREATER HELPER documented as of this encounter Miscellaneous Notes * Telephone Encounter - Zully Vidal RN - 12/09/2018 9:47 AM CDT Routing to provider. Pt not responding Zully Vidal RN, BSN * Telephone Encounter - Zully Vidal RN - 12/08/2018 3:05 PM CDT LMTRC or to check mychart Zully Vidal RN, BSN * Telephone Encounter - Trang Lozano RN - 12/05/2018 9:57 AM CDT Sent my chart unsure if pt is taking meds as below Clonazepam filled 12/03 Trang Lozano RN * Telephone Encounter - Paty Mike - 12/03/2018 8:20 AM CDT Images from the original note were not included. Requested Prescriptions Pending Prescriptions Disp Refills ??? methocarbamol (ROBAXIN) 750 MG tablet [Pharmacy Med Name: METHOCARBAMOL 750MG TABS] 120 tablet 0 Sig: TAKE ONE TABLET BY MOUTH FOUR TIMES A DAY NEEDED FOR MUSCLE SPASMS (Discontinued) Last Written Prescription Date: 10/28/18 END:11/20/18 Reason for Discontinue: None Last Fill Quantity: 120, # refills: 0 Last Office Visit with [facility] or [facility] prescribing provider: 08/06/2018 Future Office Visit: There is no refill protocol information for this order clonazePAM (KLONOPIN) 0.5 MG tablet Sig - Route: Take 1 tablet (0.5 mg) by mouth daily as needed for anxiety - Oral Last Written Prescription Date: 10/28/18 Last Fill Quantity: 30, # refills: 0 Last Office Visit with [facility], [facility] or [facility] prescribing provider: 08/06/2018 Routing refill request to provider for review/approval because: Drug not on the [facility] or [facility] refill protocol or controlled substance ??? traZODone (DESYREL) 50 MG tablet [Pharmacy Med Name: TRAZODONE HCL 50MG TABS] 30 tablet 1 Sig: TAKE ONE TABLET BY MOUTH AT BEDTIME Last Written Prescription Date: 08/12/18 Last Fill Quantity: 30, # refills: 1 Last Office Visit: 08/06/2018 [place] Return in about 3 months (around 11/05/2018) for Med Check. Future Office Visit: Serotonin Modulators Passed - 12/02/2018 6:49 PM Passed - Recent (12 mo) or future (30 days) visit within the authorizing provider's specialty Patient had office visit in the last 12 months or has a visit in the next 30 days with authorizing provider or within the authorizing provider's specialty. See Patient Info tab in inbasket, or Choose Columns in Meds & Orders section of the refill encounter. Passed - Medication is active on med list Passed - Patient is age 18 or older Passed - No active on record Passed - No positive test in past 12 months documented in this encounter Plan of Treatment Not on file documented as of this encounter Visit Diagnoses Diagnosis Muscle spasm Spasm of muscle Persistent insomnia Persistent disorder of initiating or maintaining sleep Generalized anxiety disorder documented in this encounter Additional Health Concerns Assessment Noted Time PHQ-9 Depression Total Score: 7 10/23/19 19 11:12 AM CDT documented as of this encounter Care Teams Form Setter/Driver Relationship Specialty Start Date End Date Nelson Arroyo PA-C [address] [address] PCP - General Physician Damage Inside Adjuster - Medical 08/06/18 Salina Doherty MD Internal Medicine 12/01/14 Carrillo Ware APRN SWEET DOUGH MIXER [address] [place] [address] [id number] Nurse Practitioner Nurse Practitioner 12/16/14 Angelica Jerez NP [address] 314087 Nurse Practitioner Nurse Practitioner - Family 07/12/16 Nelson Arroyo PA-C [address] [address] Assigned PCP 07/05/18 07/29/20 Chinyere Barbour Personal Advocate & Liaison (PAL) 01/31/20 04/26/20 Nelson Arroyo PA-C [address] [address] Assigned PCP 07/30/20 Pietro Wills MD [address] [place] [address] Assigned Heart and Vascular Provider 12/14/22 Tank Bucio MD [address] [facility] [address] [place] [address] Physician tile layer supervisor 12/01/23 documented as of this encounter
--- OUTSIDE RECORDS SUMMARY | 2024-06-02 16:58 | XMS_ITS | Encounter Summary ---
Author Organization [place] Address [address] [place] [address] Care Team Providers Care Welder Production Line Gas Name Role Phone Salina Doherty MD Unavailable [phone] Carrillo Ware APRN MOLD TECHNICIAN Unavailable [phone] Hillary Unger MD Primary Care P rovider [facility] NP Unavailable [phone] Hillary Unger MD Unavailable Hillary Unger MD Unavailable Nelson Arroyo PA-C Unavailable Nelson Arroyo PA-C Primary Care Provider Chinyere Barbour Unavailable Unavailable Nelson Arroyo PA-C Unavailable [phone] Pietro Wills MD Unavailable Tank Bucio MD Unavailable Reason for Visit * Reason Onset Date Comments WOUND CARE 07/01/2018 Follow up Encounter Details Date Type Department Care Team (Late st Contact Info) Description 07/01/2018 MyC Medical Advice [place] [id number] [facility], [address] [place] [address] Nelson Arroyo PA-C [address] [place] [address] WOUND CARE (Follow up) Social History Tobacco Use Types Packs/Day Years Used Date Smoking Tobacco: Former Cigarettes 0.5 2.8 0 06/05/2012 - 03/09/2015 Smokeless Tobacco: Current Last attempted to quit: 06/01/2014 Comments:Started 17 y/o Alcohol Use Standard Drinks/Week Comments Yes 0 (1 standard drink = 0.6 oz pur e alcohol) Occasionally PHQ-2 Answer Date Recorded PHQ-2 Score 3 05/12/2018 Comments No Sex and Gender Information Value Date Recorded Sex Assigned at Female 10/03/2020 8:33 PM CDT 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:44 AM OPERATIONS EXPERT Gender Identity Female 10/03/2020 8:33 PM CDT Sexual Orientation Straight 07/01/2018 3: 40 PM OPERATIONS EXPERT documented as of this encounter Plan of Treatment Not on file documented as of this encounter Visit Diagnoses Not on filedocumented in this encounter Additional Health Concerns Assessment Noted Time PHQ-9 Depression Total Score: 9 05/15/19 19 2:09 PM OPERATIONS EXPERT documented as of this encounter Care Teams Welder Production Line Gas Relationship Specialty Start Date End Date Hillary Unger MD [address] [place] [address] PCP - General Internal Medicine 08/21/15 08/05/18 Hillary Unger MD [address] [place] [address] PCP - Assigned PCP 05/03/18 07/07/18 Nelson Arroyo PA-C [address] [address] PCP - General Physician Carpenter Cradle And Dolly - Medical 08/06/18 Salina Doherty MD Internal Medicine 12/01/14 Carrillo Ware APRN MOLD TECHNICIAN [address] [place] [address] Nurse Practitioner Nurse Practitioner 12/16/14 Angelica Jerez BATTERY PLATE REMOVER [facility] [address] [place], [place] 13[address] Nurse Practitioner Nurse Practitioner - Family 07/12/16 Hillary Unger MD [address] [place] [address] Assigned PCP 05/03/18 07/18/18 [place]roy[place] [address] [place] [address] Assigned PCP 07/05/18 07/29/20 Chinyere Barbour Personal Advocate & Liaison (PAL) 01/31/20 04/26/20 Nelson Arroyo PA-C [address] [place] [address] Assigned PCP 07/30/20 Pietro Wills MD [address] [place] [address] Assigned Heart and Vascular Provider 12/14/22 Tank Bucio MD [address], [address] [address] Physician military nurse 12/01/23 documented as of this encounter
--- OUTSIDE RECORDS SUMMARY | 2024-06-02 16:58 | XMS_ITS | Encounter Summary ---
Author Organization [facility] Address [address] [place] [address] Care Team Providers Care Senior Health Consultant Name Role Phone Salina Doherty MD Unavailable Carrillo Ware APRN DRYWALL INSTALLER Unavailable [phone] SolitarioAngelica golden NP Unavailable [phone] Nelson Arroyo PA-C Primary Care Provider Nelson Arroyo PA-C Unavailable [phone] Pietro Wills MD Unavailable [phone] Tank Bucio MD Unavailable Reason for Visit * Reason Onset Date Comments MyChart Communication 02/22/2021 Encounter Details Date Type Department Care Team (Late st Contact Info) Description 02/22/2021 MyC Medical Advice [facility] [address] [place] [address] Hillary Unger MD [address] [place] [address] MyChart Communication Social History Tobacco Use Types Packs/Day Years Used Date Smoking Tobacco: Former Cigarettes 0.5 2.8 0 06/05/2012 - 03/09/2015 Smokeless Tobacco: Never Quit: 06/01/2014 Comments:Started 17 y/o Alcohol Use Standard Drinks/Week Comments Yes 0 (1 standard drink = 0.6 oz pur e alcohol) Occasionally PHQ-2 Answer Date Recorded PHQ-2 Total Score (Adult) - Positive if 3 or more points; Administer PHQ-9 if positive 0 02/22/2021 Comments No Sex and Gender Information Value Date Recorded Sex Assigned at Female 10/03/2020 8:33 PM CDT 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:44 AM WOOD MECHANIST Gender Identity Female 10/03/2020 8:33 PM CDT Sexual Orientation Straight 07/01/2018 3: 40 PM WOOD MECHANIST documented as of this encounter Miscellaneous Notes * Telephone Encounter - Maude Singh RN - 02/23/2021 2:11 PM CDT Called patient and left a detailed message on her voice mail to let her know that Paty Logan sent a prescription for Xanax 0.25mg to her pharmacy and that she is NOT supposed to take that with the Clonazepam. Advised that this was sent to her pharmacy and that she is supposed to also follow upwith her PCP next week. Maude Singh RN * Telephone Encounter - Cheyanne Garcia RN - 02/23/2021 8:42 AM CDT Please see patient's mychart message below (patient's mother unexpectedly on 02-20-21 and patient having a difficult time. She is having 10- 15 panic attacks daily--Clonazepam is not helping). Patient was given another refill of Clonazepam 02-22-[address] Dorman due to primary care providerout of clinic the rest of the week. Patient is asking for a different medication that is faster acting. Last office visit 10-18-20 Please advise, thanks. Routed to covering provider(s). documented in this encounter Plan of Treatment Not on file documented as of this encounter Visit Diagnoses Diagnosis Panic attack- Primary Panic disorder without agoraphobia documented in this encounter Additional Health Concerns Assessment Noted Time PHQ-9 Depression Total Score: 0 02/24/20 7:01 AM CDT documented as of this encounter Care Teams Senior Health Consultant Relationship Specialty Start Date End Date Nelson Arroyo PA-C [address] [place] [address] PCP - General Physician Career Advisor - Medical 08/06/18 Salina Doherty MD Internal Medicine 12/01/14 Carrillo Ware APRN DRYWALL INSTALLER [address] [place] [address] Nurse Practitioner Nurse Practitioner 12/16/14 Angelica Jerez NP [facility] [address] [place], [place] [address] Nurse Practitioner Nurse Practitioner - Family 07/12/16 Nelson Arroyo PA-C [address] [place] [address] Assigned PCP 07/30/20 Pietro Wills MD [address] [place] [address] Assigned Heart and Vascular Provider 12/14/22 Tank Bucio MD [address], [facility] [address] [place] [address] Physician revenue enforcement agent 12/01/23 documented as of this encounter
--- OUTSIDE RECORDS SUMMARY | 2024-06-02 16:58 | XMS_ITS | Encounter Summary ---
Author Organization [facility] Address [address] [place] [address]. [place] [address] Care Team Providers Care Pole Setter Name Role Phone Salina Doherty MD Unavailable [phone] Carrillo Ware APRN PROJECT LEAD Unavailable [phone] SolitarioAngelica golden NP Unavailable [phone] Nelson Arroyo PA-C Primary Care Provider Nelson Arroyo PA-C Unavailable Pietro Wills MD Unavailable [phone] Tank Bucio MD Unavailable Reason for Visit * Reason Comments Medication Refill Encounter Details Date Type Department Care Team (Late st Contact Info) Description 04/02/2021 Refill [facility] [address] [place] [address] Nelson Arroyo PA-C [address] [place] [address] Medication Refill Social History Tobacco Use Types Packs/Day Years [...] PM CDT 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:44 AM RN DOCUMENT IMPROVEMENT Gender Identity Female 10/03/2020 8:33 PM CDT Sexual Orientation Straight 07/01/2018 3: 40 PM RN DOCUMENT IMPROVEMENT documented as of this encounter Miscellaneous Notes * Telephone Encounter - Manisha Connor RN - 04/04/2021 10:49 AM CST Images from the original note were not included. Routing refill request to provider for review/approval because: Antipsychotic Medications Failed 04/02/2021 07:07 PM Protocol Details Blood pressure under 140/90 in past 12 months Lipid panel on file within the past 12 months CBC on file in past 12 months A1c or Glucose on file in past 12 months BP Readings from Last 1 Encounters: 11/22/20 (!) 153/93 Manisha Connor RN DOCUMENT IMPROVEMENT documented in this encounter Plan of Treatment Not on file documented as of this encounter Visit Diagnoses Diagnosis Major depressive disorder, recurrent episode, moderate (H) Major depressive disorder, recurrent episode, moderate Generalized anxiety disorder Palpitations documented in this encounter Additional Health Concerns Assessment Noted Time PHQ-9 Depression Total Score: 0 02/24/20 7:01 AM CDT documented as of this encounter Care Teams Pole Setter Relationship Specialty Start Date End Date Nelson Arroyo PA-C [address] [place] [address] PCP - General Physician Barrel Loader And Cleaner - Medical 08/06/18 Salina Doherty MD Internal Medicine 12/01/14 Carrillo Ware APRN PROJECT LEAD [address] [place] [address] Nurse Practitioner Nurse Practitioner 12/16/14 Angelica Jerez NP [facility] [address] [place], [place] [address] Nurse Practitioner Nurse Practitioner - Family 07/12/16 Nelson Arroyo PA-C [address] [place] [address] Assigned PCP 07/30/20 Pietro Wills MD [address] [place] [id number] Assigned Heart and Vascular Provider 12/14/22 Tank Bucio MD [address], [facility] [address] [place] [address] Physician washing machine loader 12/01/23 documented as of this encounter
--- OUTSIDE RECORDS SUMMARY | 2024-06-02 16:58 | XMS_ITS | Encounter Summary ---
Author Organization [facility] Address [address] [place] [address] Care Team Providers Care Internet Webmaster Name Role Phone Salina Doherty MD Unavailable [phone] Carrillo Ware APRN PRESS OPERATOR [employer] Unavailable Hillary Unger MD Primary Care P rovider Nelson Arroyo PA-C Primary Care Provider [phone] Hillary Unger MD Primary Care P rovider Angelica Jerez NP Unavailable [phone] Nelson Arroyo PA-C Unavailable [phone] Hillary Unger MD Unavailable Hillary Unger MD Unavailable Hillary Unger MD Unavailable Nelson Arroyo PA-C Unavailable [phone] Nelson Arroyo PA-C Primary Care Provider [phone] Chinyeer Barbour Unavailable Unavailable Nelson Arroyo PA-C Unavailable [phone] Pietro Wills MD Unavailable [phone] Tank Bucio MD Unavailable [phone] Reason for Visit * Reason Onset Date Comments Refill Request 02/07/2015 Encounter Details Date Type Department Care Team (Late st Contact Info) Description 02/07/2015 MyC Refill [facility] [address] [place] [address] Hillary Unger MD [address] [place] [address] Refill Request Social History Tobacco Use Types [...] PM CDT 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:44 AM LAY OUT DRAFTER Gender Identity Female 10/03/2020 8:33 PM CDT Sexual Orientation Straight 07/01/2018 3: 40 PM LAY OUT DRAFTER documented as of this encounter Plan of Treatment Not on file documented as of this encounter Visit Diagnoses Not on filedocumented in this encounter Care Teams Internet Webmaster Relationship Specialty Start Date End Date Hillary Unger MD [address] [place] [address] PCP - General Internal Medicine 01/05/15 08/02/15 Nelson Arroyo PA-C [address] [place] [address] PCP - General Physician Mail Clerks Supervisor - Medical 08/03/15 08/20/15 Hillary Unger MD [address] [place] [address] PCP - General Internal Medicine 08/21/15 08/05/18 Nelson Arroyo PA-C [address] [place] [address] PCP - Assigned PCP 04/12/18 05/02/18 Hillary Unger MD [address] [facility] [place] [address] PCP - Assigned PCP 02/01/18 04/11/18 Hillary Unger MD [address] [facility] [place] [address] PCP - Assigned PCP 05/03/18 07/07/18 Nelson Arroyo PA-C [address] [place] [address] PCP - General Physician Mail Clerks Supervisor - Medical 08/06/18 Salina Doherty MD Internal Medicine 12/01/14 Carrillo Ware APRN PRESS OPERATOR [employer] [address] [place] [address] Nurse Practitioner Nurse Practitioner 12/16/14 Angelica Jerez NP [facility] [address] [facility] [place] [address] Nurse Practitioner Nurse Practitioner - Family 07/12/16 Hillary Unger MD [address] [facility] [facility] [place] [address] Assigned PCP 05/03/18 07/18/18 Nelson Arroyo PA-C [address] [address] Assigned PCP 07/05/18 07/29/20 Chinyere Barbour Personal Advocate & Liaison (PAL) 01/31/20 04/26/20 Nelson Arroyo PA-C [address] [address] Assigned PCP 07/30/20 Pietro Wills MD [address] [place] [address] Assigned Heart and Vascular Provider 12/14/22 Tank Bucio MD [address] [facility], [address] [address] Physician nib finisher 12/01/23 documented as of this encounter
--- OUTSIDE RECORDS SUMMARY | 2024-06-02 16:58 | XMS_ITS | Encounter Summary ---
Author Organization [facility] Address [address] [place] [address]. [place] [address] Care Team Providers Care Coding Manager Name Role Phone Salina Doherty MD Unavailable [phone] Carrillo Ware APRN COUNTER TACKER Unavailable Hillary Unger MD Primary Care P rovider [facility] NP Unavailable [phone] Nelson Arroyo PA-C Unavailable Nelosn Arroyo PA-C Primary Care Provider [phone] Chinyere Barbour Unavailable Unavailable Nelson Arroyo PA-C Unavailable [phone] Pietro Wills MD Unavailable [phone] Tank Bucio MD Unavailable Reason for Visit * Reason Onset Date Comments MyChart Communication 07/19/2018 Encounter Details Date Type Department Care Team (Late st Contact Info) Description 07/19/2018 MyC Medical Advice [address], [address] [place] [address] Nelson Arroyo PA-C [address] [place] [address] MyChart Communication Social History Tobacco Use Types [...] PM CDT 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:44 AM TREE FELLER Gender Identity Female 10/03/2020 8:33 PM CDT Sexual Orientation Straight 07/01/2018 3: 40 PM TREE FELLER documented as of this encounter Miscellaneous Notes * Telephone Encounter - Susanne Zacarias RN - 07/20/2018 1:48 PM CDT Responded to the Pt. Susanne Zacarias RN -- [employer] * Telephone Encounter - Nelson Arroyo PA-C - 07/20/2018 12:22 PM CDT I'll give short term Wellbutrin and hydroxyzine (I saw that in there) but she will have to be seen for any others. And most definitely for diarrhea if she has C diff concerns! Nelson Corrales * Telephone Encounter - Susanne Zacarias RN - 07/20/2018 11:53 AM CDT Routing to AP to review. The Pt is requesting you refill her Wellbutrin going forward. Susanne Zacarias RN -- [employer] * Telephone Encounter - Susanne Zacarias RN - 07/20/2018 9:00 AM CDT Responded to the Pt. It looks like psych is managing her Wellbutrin. Advised OV for C-diff concerns. Susanne Zacarias, YULI -- [facility] documented in this encounter Plan of Treatment Not on file documented as of this encounter Visit Diagnoses Diagnosis Persistent insomnia Persistent disorder of initiating or maintaining sleep SHANTELL (generalized anxiety disorder) Generalized anxiety disorder documented in this encounter Additional Health Concerns Assessment Noted Time PHQ-9 Depression Total Score: 9 05/15/19 19 2:09 PM TREE FELLER documented as of this encounter Care Teams Coding Manager Relationship Specialty Start Date End Date Hillary Unger MD [address] [place], [place] [address] PCP - General Internal Medicine 08/21/15 08/05/18 Nelson Arroyo PA-C [address] [place] [address] PCP - General Physician Tailercpa - Medical 08/06/18 Salina Doherty MD Internal Medicine 12/01/14 Carrillo Ware APRN COUNTER TACKER [address] [place] [address] Nurse Practitioner Nurse Practitioner 12/16/14 Angelica Jerez NP [facility] [address] [place], [place] [address] Nurse Practitioner Nurse Practitioner - Family 07/12/16 Nelson Arroyo PA-C [address] [place] [address] Assigned PCP 07/05/18 07/29/20 Chinyere Barbour Personal Advocate & Liaison (PAL) 01/31/20 04/26/20 Nelson Arroyo PA-C [address] [place] [address] Assigned PCP 07/30/20 Pietro Wills MD [address] [place] [address] Assigned Heart and Vascular Provider 12/14/22 Tank Bucio MD [address] [facility], [facility] [address] [place] [address] Physician butt sawyer 12/01/23 documented as of this encounter
--- OUTSIDE RECORDS SUMMARY | 2024-06-02 16:58 | XMS_ITS | Encounter Summary ---
Author Organization [facility] Address [address] [place] [address] Care Team Providers Care Structural Engineer Name Role Phone Salina Doherty MD Unavailable [phone] Carrillo Ware APRN CRIB PAD MAKER Unavailable Hillary Unger MD Primary Care P rovider [facility] NP Unavailable [phone] Hillary Unger MD Unavailable Hillary Unger MD Unavailable Nelson Arroyo PA-C Unavailable Nelson Arroyo PA-C Primary Care Provider [phone] Chinyere Barbour Unavailable Unavailable Nelson Arroyo PA-C Unavailable Pietro Wills MD Unavailable Tank Bucio MD Unavailable [phone] Encounter Details Date Type Department Care Team (Late st Contact Info) Description 06/30/2018 [facility] [address], [address] [place] [address] Nelson Arroyo PA-C [address] [place] [address] Social History Tobacco Use Types Packs/Day Years [...] PM CDT 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:44 AM HYDRATE THICKENER OPERATOR Gender Identity Female 10/03/2020 8:33 PM CDT Sexual Orientation Straight 07/01/2018 3: 40 PM HYDRATE THICKENER OPERATOR documented as of this encounter Plan of Treatment Not on file documented as of this encounter Visit Diagnoses Not on filedocumented in this encounter Additional Health Concerns Assessment Noted Time PHQ-9 Depression Total Score: 9 05/15/19 19 2:09 PM HYDRATE THICKENER OPERATOR documented as of this encounter Care Teams Structural Engineer Relationship Specialty Start Date End Date Hillary Unger MD [address] [place] [address] PCP - General Internal Medicine 08/21/15 08/05/18 Hillary Unger MD [address] [place] [address] PCP - Assigned PCP 05/03/18 07/07/18 Nelson Arroyo PA-C [address] [place] [address] PCP - General Physician Show Card Writer - Medical 08/06/18 Salina Doherty MD Internal Medicine 12/01/14 Carrillo Ware APRN CRIB PAD MAKER [address] [place] [address] Nurse Practitioner Nurse Practitioner 12/16/14 Angelica Jerez REINSURANCE CLAIM ANALYST [facility] [address] [place] [address] Nurse Practitioner Nurse Practitioner - Family 07/12/16 Hillary Unger MD [address] [place] [address] Assigned PCP 05/03/18 07/18/18 Nelson Arroyo PA-C [address] [place] [address] Assigned PCP 07/05/18 07/29/20 Chinyere Barbour Personal Advocate & Liaison (PAL) 01/31/20 04/26/20 Nelson Arroyo PA-C [address] [place] [id number] Assigned PCP 07/30/20 Pietro Wills MD [address] [place] [address] Assigned Heart and Vascular Provider 12/14/22 Tank Bucio MD [address] [address] Physician ccnp 12/01/23 documented as of this encounter
--- OUTSIDE RECORDS SUMMARY | 2024-06-02 16:58 | XMS_ITS | Encounter Summary ---
Author Organization [facility] Address [address] [place] [address] Care Team Providers Care Marketing Communications Leader Name Role Phone Salina Doherty MD Unavailable [phone] Carrillo Ware APRN LATHE MACHINE OPERATOR Unavailable [phone] SolitarioAngelica golden NP Unavailable [phone] Nelson Arroyo PA-C Primary Care Provider Nelson Arroyo PA-C Unavailable [phone] Pietro Wills MD Unavailable Tank Bucio MD Unavailable [phone] Encounter Details Date Type Department Care Team (Late st Contact Info) Description 06/18/2021 Community Resource Summary INTERFACED REPORT Social History Tobacco Use Types Packs/Day Years Used Date Smoking Tobacco: Former Cigarettes 0.5 2.8 0 06/05/2012 - 03/09/2015 Smokeless Tobacco: Never Quit: 06/01/2014 Comments:Started 17 y/o Alcohol Use Standard Drinks/Week Comments Yes 0 (1 standard drink = 0.6 oz pur e alcohol) Occasionally PHQ-2 Answer Date Recorded PHQ-2 Score 4 06/04/2021 Comments No Sex and Gender Information Value Date Recorded Sex Assigned at Female 10/03/2020 8:33 PM CDT 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:44 AM PISTON MAKER Gender Identity Female 10/03/2020 8:33 PM CDT Sexual Orientation Straight 07/01/2018 3: 40 PM PISTON MAKER documented as of this encounter Plan of Treatment Not on file documented as of this encounter Visit Diagnoses Not on filedocumented in this encounter Additional Health Concerns Assessment Noted Time PHQ-9 Depression Total Score: 9 06/04/19 22 12:13 PM PISTON MAKER documented as of this encounter Care Teams Marketing Communications Leader Relationship Specialty Start Date End Date Nelson Arroyo PA-C [address] [facility] [place] [address] PCP - General Physician Traveling Clerk - Medical 08/06/18 Salina Doherty MD Internal Medicine 12/01/14 Carrillo Ware APRN LATHE MACHINE OPERATOR [address] [place] [address] Nurse Practitioner Nurse Practitioner 12/16/[address] [facility] [address] [place] [address] Nurse Practitioner Nurse Practitioner - Family 07/12/16 Nelson Arroyo PA-C [address] [place] [address] Assigned PCP 07/30/20 Pietro Wills MD [address] [place] [address] Assigned Heart and Vascular Provider 12/14/22 Tank Bucio MD [address], [address] [address] Physician property disposal officer 12/01/23 documented as of this encounter
--- OUTSIDE RECORDS SUMMARY | 2024-06-02 16:58 | XMS_ITS | Encounter Summary ---
Author Organization [facility] Address [address] [place] [address]. [place] [address] Care Team Providers Care Freight Brakeman Name Role Phone Salina Doherty MD Unavailable [phone] Carrillo Ware APRN TOLL SERVICE OBSERVER Unavailable Angelica Jerez NP Unavailable [phone] Nelson Arroyo PA-C Primary Care Provider Nelson Arroyo PA-C Unavailable Pietro Wills MD Unavailable [phone] Tank Bucio MD Unavailable Reason for Visit * Reason Comments Medication Refill Encounter Details Date Type Department Care Team (Late st Contact Info) Description 07/23/2021 Refill [facility] [address] [place] [address] Concepción Gonzalez APRN TOLL SERVICE OBSERVER [address] [place] [address] Medication Refill Social History Tobacco [...] PM CDT 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:44 AM JOY LOADING MACHINE OPERATOR Gender Identity Female 10/03/2020 8:33 PM CDT Sexual Orientation Straight 07/01/2018 3: 40 PM JOY LOADING MACHINE OPERATOR documented as of this encounter Miscellaneous Notes * Telephone Encounter - Maude Singh RN - 07/25/2021 10:55 AM CDT Routing refill request to provider for review/approval because: Labs not current: Needs yearly creatinine Creatinine Date Value Ref Range Status 05/15/2018 0.66 0.52 - 1.04 mg/dL Final Maude Singh RN documented in this encounter Plan of Treatment Not on file documented as of this encounter Visit Diagnoses Diagnosis Generalized anxiety disorder documented in this encounter Additional Health Concerns Assessment Noted Time PHQ-9 Depression Total Score: 9 06/04/19 22 12:13 PM JOY LOADING MACHINE OPERATOR documented as of this encounter Care Teams Freight Brakeman Relationship Specialty Start Date End Date Nelson Arroyo PA-C [address] [place] [address] PCP - General Physician Showroom Consultant - Medical 08/06/18 Salina Doherty MD Internal Medicine 12/01/14 Carrillo Ware APRN TOLL SERVICE OBSERVER [address] [place] [address] Nurse Practitioner Nurse Practitioner 12/16/14 Angelica Jerez NP [address] [address] Nurse Practitioner Nurse Practitioner - Family 07/12/16 Nelson Arroyo PA-C [address] [place] [address] Assigned PCP 07/30/20 Pietro Wills MD [address] [place] [address] Assigned Heart and Vascular Provider 12/14/22 Tank Bucio MD [address] [facility] [address] [place] [address] Physician economics analyst 12/01/23 documented as of this encounter
--- OUTSIDE RECORDS SUMMARY | 2024-06-02 16:58 | XMS_ITS | Encounter Summary ---
Author Organization [facility] Address [address] [place] [address]. [place] [address] Care Team Providers Care Electric Arc Furnace Operator Name Role Phone Salina Doherty MD Unavailable Carrillo Ware APRN OUTSIDE INSTALLER APPRENTICE Unavailable SolitarioAngelica golden NP Unavailable [phone] Nelson Arroyo PA-C Primary Care Provider Nelson Arroyo PA-C Unavailable Pietro Wills MD Unavailable [phone] Tank Bucio MD Unavailable [phone] Reason for Visit * Reason Onset Date Comments Refill Request 05/06/2021 Encounter Details Date Type Department Care Team (Late st Contact Info) Description 05/06/2021 MyC Refill [facility] [address] [place] [address] Nelson Arroyo PA-C [address] [place] [address] Refill Request Social History Tobacco Use Types [...] PM CDT 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:44 AM DIRECTOR TELECOMMUNICATIONS Gender Identity Female 10/03/2020 8:33 PM CDT Sexual Orientation Straight 07/01/2018 3: 40 PM DIRECTOR TELECOMMUNICATIONS documented as of this encounter Miscellaneous Notes * Telephone Encounter - Natalie Arthur - 05/14/2021 1:46 PM CST PT had appt with PCP today. -Natalie Arthur Lead Janitor CTOR TELECOMMUNICATIONS * Telephone Encounter - Carmen Lynn RN - 05/07/2021 11:05 AM DIRECTOR TELECOMMUNICATIONS Routing refill request to provider for review/approval because: Drug not on the [facility] refill protocol Routing to station to assist with scheduling. *RN did try calling to schedule- LMTCB. AND sent MC message. Return in about 6 months (around 04/19/2021) for depression/anxiety med check, ADHD med check. ?? Nelson Arroyo PA-C [facility] Carmen Turcios RN CTOR TELECOMMUNICATIONS documented in this encounter Plan of Treatment Not on file documented as of this encounter 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), predominantly inattentive type documented in this encounter Additional Health Concerns Assessment Noted Time PHQ-9 Depression Total Score: 0 02/24/20 21 7:01 AM CDT documented as of this encounter Care Teams Electric Arc Furnace Operator Relationship Specialty Start Date End Date Nelson Arroyo PA-C [address] [place] [address] PCP - General Physician E Commerce Web Developer - Medical 08/06/18 Salina Doherty MD Internal Medicine 12/01/14 Carrillo Ware APRN OUTSIDE INSTALLER APPRENTICE [address] [place] [address] Nurse Practitioner Nurse Practitioner 12/16/14 Angelica Jerez NP [facility] [address] [place] [address] Nurse Practitioner Nurse Practitioner - Family 07/12/16 Nelson Arroyo PA-C [address] [place] [address] Assigned PCP 07/30/20 Pietro Wills MD [address] [place] [address] Assigned Heart and Vascular Provider 12/14/22 Tank Bucio MD [facility] E [facility], [address] [address] Physician snipper 12/01/23 documented as of this encounter
--- OUTSIDE RECORDS SUMMARY | 2024-06-02 16:58 | XMS_ITS | Encounter Summary ---
Author Organization [facility] Address [address] [place] [address]. [place] [address] Care Team Providers Care Top Collar Maker Name Role Phone Salina Doherty MD Unavailable Carrillo Ware APRN DOCTOR OF NAPRAPATHIC MEDICINE Unavailable SolitarioAngelica golden NP Unavailable [phone] Loy Arroyo PA-C Primary Care Provider Loy Arroyo PA-C Unavailable [phone] Pietro Wills MD Unavailable [phone] Tank Bucio MD Unavailable Reason for Visit * Reason Onset Date Comments Refill Request 06/21/2021 Encounter Details Date Type Department Care Team (Late st Contact Info) Description 06/21/2021 MyC Medical Advice [facility] [address] [place] [address] Loy Arroyo PA-C [address] [place] [address] Refill Request Social History Tobacco [...] PM CDT 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:44 AM EVENT CREW TECHNICIAN Gender Identity Female 10/03/2020 8:33 PM CDT Sexual Orientation Straight 07/01/2018 3: 40 PM EVENT CREW TECHNICIAN documented as of this encounter Miscellaneous Notes * Telephone Encounter - Concepción Gonzalez APRN CNP - 06/22/2021 8:16 AM EVENT CREW TECHNICIAN Refilled. Help schedule follow-up appt with loy. Concepción Gonzalez CNP T CREW TECHNICIAN * Telephone Encounter - Ivette Dasilva RN - 06/22/2021 7:55 AM CST Please see patient message concerning Effexor dosage increase. Note from [facility] 06/04/2021 with AP: Generalized anxiety disorder Increase dose to 75mg daily. Plan to get her to 150mg daily. Follow up in about 6 weeks, sooner prn. - venlafaxine (EFFEXOR-XR) 75 MG 24 hr capsule; Take 1 capsule (75 mg) by mouth daily Prescription t'd up. AP not in office. Routed to pcp and POD. Ivette Dasilva RN T CREW TECHNICIAN documented in this encounter Plan of Treatment Not on file documented as of this encounter Visit Diagnoses Diagnosis Generalized anxiety disorder documented in this encounter Additional Health Concerns Assessment Noted Time PHQ-9 Depression Total Score: 9 06/04/19 22 12:13 PM EVENT CREW TECHNICIAN documented as of this encounter Care Teams Top Collar Maker Relationship Specialty Start Date End Date Loy Arroyo PA-C [address] [place] [address] PCP - General Physician Relay Record Clerk - Medical 08/06/18 Salina Doherty MD Internal Medicine 12/01/14 Carrillo Ware APRN DOCTOR OF NAPRAPATHIC MEDICINE [address] [place] [address] [id number] Nurse Practitioner Nurse Practitioner 12/16/14 Angelica Jerez NP [facility] [address] [place], [place] [address] Nurse Practitioner Nurse Practitioner - Family 07/12/16 Loy Arroyo PA-C [address] [place] [address] Assigned PCP 07/30/20 Pietro Wills MD [address] [place] [address] Assigned Heart and Vascular Provider 12/14/22 Tank Bucio MD [facility] [address] Physician wastewater manager 12/01/23 documented as of this encounter
--- OUTSIDE RECORDS SUMMARY | 2024-06-02 16:58 | XMS_ITS | Encounter Summary ---
Author Organization [facility] Address [address] [place] [address]. [place] [address] Care Team Providers Care Adjuster Piano Action Name Role Phone Salina Doherty MD Unavailable [phone] Carrillo Ware APRN REGULATORY AFFAIRS MANAGER Unavailable [phone] SolitarioAngelica golden NP Unavailable [phone] Nelson Arroyo PA-C Primary Care Provider Nelson Arroyo PA-C Unavailable Pietro Wills MD Unavailable [phone] Tank Bucio MD Unavailable [phone] Encounter Details Date Type Department Care Team (Late st Contact Info) Description 07/10/2021 MyC Medical Advice [facility] [address] [place] [address] Nelson Arroyo PA-C [address] [place] [address] Social History Tobacco Use Types [...] PM CDT 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:44 AM FILE MACHINE OPERATOR Gender Identity Female 10/03/2020 8:33 PM CDT Sexual Orientation Straight 07/01/2018 3: 40 PM FILE MACHINE OPERATOR documented as of this encounter Plan of Treatment Not on file documented as of this encounter Visit Diagnoses Not on filedocumented in this encounter Additional Health Concerns Assessment Noted Time PHQ-9 Depression Total Score: 9 06/04/19 22 12:13 PM FILE MACHINE OPERATOR documented as of this encounter Care Teams Adjuster Piano Action Relationship Specialty Start Date End Date Nelson Arroyo PA-C [address] [place] [address] PCP - General Physician Cottrell Operator - Medical 08/06/18 Salina Doherty MD Internal Medicine 12/01/14 Carrillo Ware APRN REGULATORY AFFAIRS MANAGER [address] [place] [address] [id number] Nurse Practitioner Nurse Practitioner 12/16/14 Angelica Jerez NP [facility] [address] [place], [place] [address] Nurse Practitioner Nurse Practitioner - Family 07/12/16 Nelson Arroyo PA-C [address] [address] Assigned PCP 07/30/20 Pietro Wills MD [address] [address] Assigned Heart and Vascular Provider 12/14/22 Tank Bucio MD [address], [facility] [address] [place] [address] Physician dock boss 12/01/23 documented as of this encounter
--- OUTSIDE RECORDS SUMMARY | 2024-06-02 16:58 | XMS_ITS | Encounter Summary ---
Author Organization [facility] Address [address] [place] [address]. [place] [address] Care Team Providers Care Manager Mobile Name Role Phone Salina Doherty MD Unavailable [phone] Carrillo Ware APRN MONITORING ANALYST Unavailable SolitarioAngelica golden NP Unavailable [phone] Nelson Arroyo PA-C Unavailable Nelson Arroyo PA-C Primary Care Provider Chiynere Barbour Unavailable Unavailable Nelson Arroyo PA-C Unavailable Pietro Wills MD Unavailable Tank Bucio MD Unavailable Reason for Visit * Reason Onset Date Comments MyChart Communication 08/06/2018 Encounter Details Date Type Department Care Team (Late st Contact Info) Description 08/06/2018 MyC Medical Advice [facility] [address] [facility], [address] [place] [address] Nelson Arroyo PA-C [address] [place] [address] MyChart Communication Social History Tobacco [...] PM CDT 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:44 AM 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 This is fine. Nelson * Telephone Encounter - Susanne Zacarias RN - 08/07/2018 8:03 AM CDT PCP: Please see below. Ok for 90 day supply? Susanne Zacarias RN -- [facility] documented in this encounter Plan of Treatment Not on file documented as of this encounter Visit Diagnoses Diagnosis Muscle spasm Spasm of muscle Cervicalgia documented in this encounter Additional Health Concerns Assessment Noted Time PHQ-9 Depression Total Score: 13 019 7:04 AM CDT documented as of this encounter Care Teams Manager Mobile Relationship Specialty Start Date End Date Nelson Arroyo PA-C [address] [place] [address] PCP - General Physician Behavioral Technician - Medical 08/06/18 Salina Doherty MD Internal Medicine 12/01/14 Carrillo Ware APRN MONITORING ANALYST [address] [place] [address] Nurse Practitioner Nurse Practitioner 12/16/14 Angelica Jerez NP [facility] [address] [place] [address] Nurse Practitioner Nurse Practitioner - Family 07/12/16 Nelson Arroyo PA-C [address] [place] [address] Assigned PCP 07/05/18 07/29/20 Chinyere Barbour Personal Advocate & Liaison (PAL) 01/31/20 04/26/20 Nelson Arroyo PA-C [address] [place] [address] Assigned PCP 07/30/20 Pietro Wills MD [address] [place] [address] Assigned Heart and Vascular Provider 12/14/22 Tank Bucio MD [address], [facility] [address] [place] [address] Physician veneer marker 12/01/23 documented as of this encounter
--- OUTSIDE RECORDS SUMMARY | 2024-06-02 16:58 | XMS_ITS | Encounter Summary ---
Author Organization [facility] Address [address] [place] [address] Care Team Providers Care Computer Numerical Control Operator Name Role Phone Salina Doherty MD Unavailable [phone] Carrillo Ware APRN SENIOR ASIC ENGINEER Unavailable Hillary Unger MD Primary Care P rovider [facility] NP Unavailable [phone] Nelson Arroyo PA-C Unavailable Hillary Unger MD Unavailable Hillary Unger MD Unavailable Hillary Unger MD Unavailable Nelson Arroyo PA-C Unavailable [phone] Nelson Arroyo PA-C Primary Care Provider Chinyere Barbour Unavailable Unavailable Nelson Arroyo PA-C Unavailable [phone] Pietro Wills MD Unavailable [phone] Tank Bucio MD Unavailable [phone] Encounter Details Date Type Department Care Team (Late st Contact Info) Description 06/17/2017 [facility] [address] [place] [address] Solitario Angelica Gautam, FANS CLERK [address] [place] [address] Social History Tobacco Use Types Packs/Day Years [...] PM CDT 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:44 AM BREAST BUFFER Gender Identity Female 10/03/2020 8:33 PM CDT Sexual Orientation Straight 07/01/2018 3: 40 PM BREAST BUFFER documented as of this encounter Plan of Treatment Not on file documented as of this encounter Visit Diagnoses Not on filedocumented in this encounter Additional Health Concerns Assessment Noted Time PHQ-9 Depression Total Score: 4 04/04/20 17 7:13 AM BREAST BUFFER documented as of this encounter Care Teams Computer Numerical Control Operator Relationship Specialty Start Date End Date Hillary Unger MD [address] [place] [address] PCP - General Internal Medicine 08/21/15 08/05/18 Nelson Arroyo PA-C [address] [place] [address] PCP - Assigned PCP 04/12/18 05/02/18 Hillary Unger MD [address] [place] [address] PCP - Assigned PCP 02/01/18 04/11/18 Hillary Unger MD [address] [place] [address] PCP - Assigned PCP 05/03/18 07/07/18 Nelson Arroyo PA-C [address] [place] [address] PCP - General Physician Beck Operator - Medical 08/06/18 Salina Doherty MD Internal Medicine 12/01/14 Carrillo Ware APRN SENIOR ASIC ENGINEER [address] [place] [address] Nurse Practitioner Nurse Practitioner 12/16/14 Angelica Jerez FANS CLERK [facility] [address] [place], [place] [address] Nurse Practitioner Nurse Practitioner - Family 07/12/16 Hillary Unger MD [address] [place] [address] Assigned PCP 05/03/18 07/18/18 Nelson Arroyo PA-C [address] [place] [address] Assigned PCP 07/05/18 07/29/20 Chinyere Barbour Personal Advocate & Liaison (PAL) 01/31/20 04/26/20 Nelson Arroyo PA-C [address] [place] [address] Assigned PCP 07/30/20 Pietro Wills MD [address], [place] [address] Assigned Heart and Vascular Provider 12/14/22 Tank Bucio MD [address], [facility] [address] [place] [address] Physician lamp shade sewer 12/01/23 documented as of this encounter
--- OUTSIDE RECORDS SUMMARY | 2024-06-02 16:58 | XMS_ITS | Encounter Summary ---
Author Organization [facility] Address [address] [place] [address] Care Team Providers Care Truck Crane Operator Helper Name Role Phone Salina Doherty MD Unavailable [phone] Carrillo Ware APRN WOODWORKING BELT SANDER Unavailable [phone] Hillary Unger MD Primary Care P rovider [facility] NP Unavailable [phone] Nelson Arroyo PA-C Unavailable [phone] Nelson Arroyo PA-C Primary Care Provider Chinyere Barbour Unavailable Unavailable Nelson Arroyo PA-C Unavailable [phone] Pietro Wills MD Unavailable [phone] Tank Bucio MD Unavailable [phone] Reason for Visit * Reason Onset Date Comments Refill Request 08/03/2018 Encounter Details Date Type Department Care Team (Late st Contact Info) Description 08/03/2018 MyC Refill [facility] Mental Health & Addiction [facility] [address] [facility] [address] [place] [address] Hillary Unger MD [place] [address] Refill Request Social History Tobacco Use Types [...] PM CDT 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:44 AM SONOSCOPE OPERATOR Gender Identity Female 10/03/2020 8:33 PM CDT Sexual Orientation Straight 07/01/2018 3: 40 PM SONOSCOPE OPERATOR documented as of this encounter Miscellaneous Notes * Telephone Encounter - BonillaGiulianoZuleyka L - 08/03/2018 11:34 AM CDT Requested Prescriptions Pending Prescriptions Disp Refills ??? QUEtiapine (SEROQUEL) 300 MG tablet 30 tablet 0 Sig: TAKE ONE TABLET BY MOUTH AT BEDTIME Antipsychotic Medications Failed - 08/03/2018 10:02 AM Failed - Lipid panel on file within the past 12 months Recent Labs Lab Test 07/07/17 0728 CHOL 186 TRIG 146 HDL 47* LDL 110* NHDL 139* Passed - Blood pressure under 140/90 in past 12 months BP Readings from Last 3 Encounters: 06/29/18 112/76 06/22/18 122/84 05/15/18 (!) 155/105 Passed - Patient is 12 years of age or older Passed - CBC on file in past 12 months Recent Labs Lab Test 05/15/18 1533 WBC 9.9 RBC 5.11 HGB 14.1 HCT 42.8 PLT 394 Passed - Heart Rate on file within past 12 months Pulse Readings from Last 3 Encounters: 06/29/18 80 06/22/18 94 05/15/18 127 Passed - A1c or Glucose on file in past 12 months Recent Labs Lab Test 05/15/18 1533 GLC 106* Please review patients last 3 weights. If a weight gain of >10 lbs exists, you may refill the prescription once after instructing the patient to schedule an appointment within the next 30 days. Wt Readings from Last 3 Encounters: 06/22/18 105.8 kg (233 lb 4.8 oz) 05/15/18 105.8 kg (233 lb 4.8 oz) 08/28/17 104.8 kg (231 lb) Passed - Medication is active on med list Passed - Patient is not Passed - No positve test on file in past 12 months Passed - Recent (6 mo) or future (30 days) visit within the authorizing provider's specialty Patient had office visit in the last 6 months or has a visit in the next 30 days with authorizing provider or within the authorizing provider's specialty. See Patient Info tab in inbasket, or Choose Columns in Meds & Orders section of the refill encounter. Last Written Prescription Date: 06/14/18 Last Fill Quantity: 30, # refills: 0 Last office visit: 08/28/2017 with prescribing provider: 05/15/18 Future Office Visit: Next 5 appointments (look out 90 days) Aug 06, 2018 3:40 PM CDT MyChart Physical Adult with Nelson Arroyo PA-C [facility] [address] [place] [phone] documented in this encounter Plan of Treatment Not on file documented as of this encounter Visit Diagnoses Diagnosis Generalized anxiety disorder Major depressive disorder, recurrent episode, moderate (H) Major depressive disorder, recurrent episode, moderate documented in this encounter Additional Health Concerns Assessment Noted Time PHQ-9 Depression Total Score: 9 05/15/19 19 2:09 PM SONOSCOPE OPERATOR documented as of this encounter Care Teams Truck Crane Operator Helper Relationship Specialty Start Date End Date Hillary Unger MD [address] [place] [address] PCP - General Internal Medicine 08/21/15 08/05/18 Nelson Arroyo PA-C [address] [address] PCP - General Physician Safety And Health Manager - Medical 08/06/18 Salina Doherty MD Internal Medicine 12/01/14 Carrillo Ware APRN WOODWORKING BELT SANDER [address] [place] [address] Nurse Practitioner Nurse Practitioner 12/16/14 Angelica Jerez VISION SPECIALIST [facility] [address] [place] [address] Nurse Practitioner Nurse Practitioner - Family 07/12/16 Nelson Arroyo PA-C [address] [place] [address] Assigned PCP 07/05/18 07/29/20 Chinyere Barbour Personal Advocate & Liaison (PAL) 01/31/20 04/26/20 Nelson Arroyo PA-C [address] [place] [id number] Assigned PCP 07/30/20 Pietro Wills MD [address] [place] [address] Assigned Heart and Vascular Provider 12/14/22 Tank Bucio MD [address], [facility] [address] [place] [address] Physician saturator tender 12/01/23 documented as of this encounter
--- OUTSIDE RECORDS SUMMARY | 2024-06-02 16:58 | XMS_ITS | Encounter Summary ---
Author Organization [facility] Address [address] [place] [address] Care Team Providers Care Cook Pressure Name Role Phone Salina Doherty MD Unavailable [phone] Carrillo Ware APRN AGRONOMY SUPERVISOR Unavailable SolitarioAngelica golden NP Unavailable [phone] Nelson Arroyo PA-C Primary Care Provider Nelson Arroyo PA-C Unavailable [phone] Pietro Wills MD Unavailable Tank Bucio MD Unavailable [phone] Reason for Visit * Reason Onset Date Comments Outpatient 10/17/2021 Encounter Details Date Type Department Care Team (Late st Contact Info) Description 10/17/2021 Telephone [facility] Behavioral Health Intake [address] [place] [address] Generic, Behavioral Intake, Outpatient Social History Tobacco Use Types Packs/Day Years Used Date Smoking Tobacco: Former Cigarettes 0.5 2.8 0 06/05/2012 - 03/09/2015 Smokeless Tobacco: Never Quit: 06/01/2014 Comments:Started 17 y/o Alcohol Use Standard Drinks/Week Comments Yes 0 (1 standard drink = 0.6 oz pur e alcohol) Occasionally PHQ-2 Answer Date Recorded PHQ-2 Score 4 08/08/2021 Comments No Sex and Gender Information Value Date Recorded Sex Assigned at Female 10/03/2020 8:33 PM CDT 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:44 AM CAREER DEVELOPMENT DIRECTOR Gender Identity Female 10/03/2020 8:33 PM CDT Sexual Orientation Straight 07/01/2018 3: 40 PM CAREER DEVELOPMENT DIRECTOR documented as of this encounter Miscellaneous Notes * Telephone Encounter - Jacqueline Collado - 10/24/2021 1:54 PM CDT ----- Message from TERI Pierre sent at 10/24/2021 1:11 PM CDT ----- Regarding: Patient starting ADT 1B 10/29 Scheduling Request Patient Name: Nidia Crystal Location of programming: ADT 1B Start Date: October Group: BHADT 1B on Friday, Friday, and at 01:00 PM to 04:00 PM Attending Provider (): Dr. Edward Number of visits to be scheduled: 36 Duration of Appointment in minutes: 180 Visit Type: Zoom - [phone] Additional notes: Erica- Patient is available for admit Friday or Friday. Thanks! Keshia * Telephone Encounter - Jacqueline Collado - 10/24/2021 1:54 PM CDT ----- Message from TERI Pierre sent at 10/24/2021 1:11 PM CDT ----- Regarding: Patient starting ADT 1B 10/29 Scheduling Request Patient Name: Nidia Crystal Location of programming: ADT 1B Start Date: October Group: BHADT 1B on Friday, Friday, and at 01:00 PM to 04:00 PM Attending Provider (): Dr. Edward Number of visits to be scheduled: 36 Duration of Appointment in minutes: 180 Visit Type: Zoom - [phone] Additional notes: Erica- Patient is available for admit Friday or Friday. Thanks! Keshia * Telephone Encounter - Silviano Villalpando December - 10/17/2021 9:31 AM CDT MH Eval scheduled, referral created, bens requested. documented in this encounter Plan of Treatment Not on file documented as of this encounter Visit Diagnoses Not on filedocumented in this encounter Additional Health Concerns Assessment Noted Time PHQ-9 Depression Total Score: 7 08/09/19 22 12:15 PM CDT documented as of this encounter Care Teams Cook Pressure Relationship Specialty Start Date End Date Nelson Arroyo PA-C [address] [place] [address] PCP - General Physician Locum Tenens - Medical 08/06/18 Salina Doherty MD Internal Medicine 12/01/14 Carrillo Ware APRN AGRONOMY SUPERVISOR [address] [place] [address]32[address] Nurse Practitioner Nurse Practitioner 12/16/14 Angelica Jerez NP [facility] [address] [place], [place] [address] Nurse Practitioner Nurse Practitioner - Family 07/12/16 Nelson Arroyo PA-C [address] [place] [address] Assigned PCP 07/30/20 Pietro Wills MD [address] [place] 57[address] Assigned Heart and Vascular Provider 12/14/22 Tank Bucio MD [address] [address] Physician duralumin metalworker 12/01/23 documented as of this encounter
--- OUTSIDE RECORDS SUMMARY | 2024-06-02 16:58 | XMS_ITS | Encounter Summary ---
Author Organization [place] Address [address] [place] [address]. [place] [address] Care Team Providers Care Acrobatic Dancer Name Role Phone Salina Doherty MD Unavailable [phone] Carrillo Ware APRN PSYCHIATRIC NURSE PRACTITIONER Unavailable SolitarioAngelica golden NP Unavailable [phone] Nelson Arroyo PA-C Primary Care Provider Nelson Arroyo PA-C Unavailable Pietro Wills MD Unavailable Tank Bucio MD Unavailable [phone] Encounter Details Date Type Department Care Team (Late st Contact Info) Description 10/31/2021 MyC Medical Advice [facility] [address] [place] [address] Neslon Arroyo PA-C [address] [place] [address] Social History Tobacco Use Types Packs/Day Years Used Date Smoking Tobacco: Former Cigarettes 0.5 2.8 0 06/05/2012 - 03/09/2015 Smokeless Tobacco: Never Quit: 06/01/2014 Comments:Started 17 y/o Alcohol Use Standard Drinks/Week Comments Yes 0 (1 standard drink = 0.6 oz pur e alcohol) Occasionally PHQ-2 Answer Date Recorded PHQ-2 Score 3 10/22/2021 Comments No Sex and Gender Information Value Date Recorded Sex Assigned at Female 10/03/2020 8:33 PM CDT 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:44 AM GETTERER Gender Identity Female 10/03/2020 8:33 PM CDT Sexual Orientation Straight 07/01/2018 3: 40 PM GETTERER documented as of this encounter Miscellaneous Notes * Telephone Encounter - Sanjana Bautista RN - 11/01/2021 1:46 PM CDT prazosin (MINIPRESS) 5 MG capsule 90 capsule 0 10/31/2021 No Sig - Route: TAKE 1 CAPSULE (5 MG) BY MOUTH AT BEDTIME - Oral Sent to pharmacy as: Prazosin HCl 5 MG Oral Capsule (MINIPRESS) Class: E-Prescribe Order: [id number] E-Prescribing Status: Receipt confirmed by pharmacy (10/31/2021 ??4:22 PM CDT) Tizanidine refill request still pending. Requires provider review since it is not on [facility] refill protocol. Routed to provider to review. Sanjana Brown RN documented in this encounter Plan of Treatment Not on file documented as of this encounter Visit Diagnoses Not on filedocumented in this encounter Additional Health Concerns Assessment Noted Time PHQ-9 Depression Total Score: 7 10/23/19 22 11:44 AM CDT documented as of this encounter Care Teams Acrobatic Dancer Relationship Specialty Start Date End Date Nelson Arroyo PA-C [address] [place] [address] PCP - General Physician Graphic Design Teacher - Medical 08/06/18 Salina Doherty MD Internal Medicine 12/01/14 Carrillo Ware APRN PSYCHIATRIC NURSE PRACTITIONER [address] [place] [address] Nurse Practitioner Nurse Practitioner 12/16/14 Angelica Jerez NP [facility] [address] [place] [address] Nurse Practitioner Nurse Practitioner - Family 07/12/16 Nelson Arroyo PA-C [address] [place] [address] Assigned PCP 07/30/20 Pietro Wills MD [address] [place] [address] Assigned Heart and Vascular Provider 12/14/22 Tank Bucio MD [address], [facility] [address] [place] [address] Physician production support specialist 12/01/23 documented as of this encounter
--- OUTSIDE RECORDS SUMMARY | 2024-06-02 16:58 | XMS_ITS | Encounter Summary ---
Author Organization [place] Address [address] [place] [address] Care Team Providers Care General Worker Name Role Phone Salina Doherty MD Unavailable Carrillo Ware APRN ADULT EDUCATOR Unavailable SolitarioAngelica golden NP Unavailable [phone] Nelson Arroyo PA-C Primary Care Provider Nelson Arroyo PA-C Unavailable [phone] Pietro Wills MD Unavailable [phone] Tank Bucio MD Unavailable [phone] Encounter Details Date Type Department Care Team (Late st Contact Info) Description 11/13/2021 [facility] Behavioral Health Intake [address] [place] [id number] Margi Dumont Social History Tobacco Use Types Packs/Day Years [...] PM CDT 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:44 AM PERSONNEL MANAGER Gender Identity Female 10/03/2020 8:33 PM CDT Sexual Orientation Straight 07/01/2018 3: 40 PM PERSONNEL MANAGER documented as of this encounter Plan of Treatment Not on file documented as of this encounter Visit Diagnoses Not on filedocumented in this encounter Additional Health Concerns Assessment Noted Time PHQ-9 Depression Total Score: 7 10/23/19 22 11:44 AM CDT documented as of this encounter Care Teams General Worker Relationship Specialty Start Date End Date Nelson Arroyo PA-C [address] [place] [address] PCP - General Physician Test Desk Supervisor - Medical 08/06/18 Salina Doherty MD Internal Medicine 12/01/14 Carrillo Ware APRN ADULT EDUCATOR [address] [place] [address] Nurse Practitioner Nurse Practitioner 12/16/14 Angelica Jerez NP [facility] [address] [place], [place] [id number] Nurse Practitioner Nurse Practitioner - Family 07/12/16 Nelson Arroyo PA-C [address] [place] [address] Assigned PCP 07/30/20 Pietro Wills MD [address] [address] Assigned Heart and Vascular Provider 12/14/22 Tank Bucio MD [address], [address] [address] Physician acid wash operator 12/01/23 documented as of this encounter
--- OUTSIDE RECORDS SUMMARY | 2024-06-02 16:58 | XMS_ITS | Encounter Summary ---
Author Organization [place] Address [facility] [place] [address] Care Team Providers Care Mast Maker Name Role Phone Salina Doherty MD Unavailable Carrillo Ware APRN HARBOR TUG CAPTAIN Unavailable SolitarioAngelica golden NP Unavailable [phone] Nelson Arroyo PA-C Primary Care Provider Nelson Arroyo PA-C Unavailable [phone] Pietro Wills MD Unavailable [phone] Tank Bucio MD Unavailable [phone] Encounter Details Date Type Department Care Team (Late st Contact Info) Description 11/06/2021 MyC Medical Advice [facility] [address] [place] [phone] Beka Vela, OTR/L Social History Tobacco Use Types Packs/Day Years [...] PM CDT 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:44 AM WRISTER Gender Identity Female 10/03/2020 8:33 PM CDT Sexual Orientation Straight 07/01/2018 3: 40 PM WRISTER documented as of this encounter Plan of Treatment Not on file documented as of this encounter Visit Diagnoses Not on filedocumented in this encounter Additional Health Concerns Assessment Noted Time PHQ-9 Depression Total Score: 7 10/23/19 22 11:44 AM CDT documented as of this encounter Care Teams Mast Maker Relationship Specialty Start Date End Date Nelson Arroyo PA-C [address] [place] [address] PCP - General Physician Bioinformatics Team Member - Medical 08/06/18 Salina Doherty MD Internal Medicine 12/01/14 Carrillo Ware APRN HARBOR TUG CAPTAIN [address] [place] [address]115 Nurse Practitioner Nurse Practitioner 12/16/14 Angelica Jerez NP [facility] [address] [place], [place] [address] Nurse Practitioner Nurse Practitioner - Family 07/12/16 Nelson Arroyo PA-C [address] [place] [address] Assigned PCP 07/30/20 Pietro Wills MD [address] [place] [address] Assigned Heart and Vascular Provider 12/14/22 Tank Bucio MD [address] [address] Physician sole edge inker machine 12/01/23 documented as of this encounter
--- OUTSIDE RECORDS SUMMARY | 2024-06-02 16:58 | XMS_ITS | Encounter Summary ---
Author Organization [place] Address [address] [place] [address]. [place] [address] Care Team Providers Care Middle School Tutor Name Role Phone Salina Doherty MD Unavailable [phone] Carrillo Ware APRN SOCIAL SCIENCES CHAIR Unavailable SolitarioAngelica golden NP Unavailable [phone] Nelson Arroyo PA-C Primary Care Provider Nelson Arroyo PA-C Unavailable Pietro Wills MD Unavailable Tank Bucio MD Unavailable [phone] Encounter Details Date Type Department Care Team (Late st Contact Info) Description 01/17/[address] [facility] [address] [place] [address] Nelson Arroyo PA-C [address] [place] [address] Social History Tobacco Use Types Packs/Day Years Used Date Smoking Tobacco: Former Cigarettes 0.5 2.8 0 06/05/2012 - 03/09/2015 Smokeless Tobacco: Never Quit: 06/01/2014 Comments:Started 17 y/o Alcohol Use Standard Drinks/Week Comments Yes 0 (1 standard drink = 0.6 oz pur e alcohol) Occasionally PHQ-2 Answer Date Recorded PHQ-2 Score 0 10/18/2020 Comments No Sex and Gender Information Value Date Recorded Sex Assigned at Female 10/03/2020 8:33 PM CDT 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:44 AM EXHIBITION SPECIALIST Gender Identity Female 10/03/2020 8:33 PM CDT Sexual Orientation Straight 07/01/2018 3: 40 PM EXHIBITION SPECIALIST documented as of this encounter Miscellaneous Notes * Telephone Encounter - Carmen Lynn RN - 01/17/2021 5:44 PM CDT Put letter on Nelson' desk- please sign then have someone put up front to pickle sorter. We could maybe message her when it is done. Carmen Turcios RN documented in this encounter Plan of Treatment Not on file documented as of this encounter Visit Diagnoses Not on filedocumented in this encounter Additional Health Concerns Assessment Noted Time PHQ-9 Depression Total Score: 4 10/19/19 21 5:12 PM CDT documented as of this encounter Care Teams Middle School Tutor Relationship Specialty Start Date End Date Nelson Arroyo PA-C [address] [facility] [place] [address] PCP - General Physician Spud Sorter - Medical 08/06/18 Salina Doherty MD Internal Medicine 12/01/14 Carrillo Ware APRN SOCIAL SCIENCES CHAIR [address] [place] [address]275 Nurse Practitioner Nurse Practitioner 12/16/14 Angelica Jerez NP [address] 1616[address] Nurse Practitioner Nurse Practitioner - Family 07/12/16 Nelson Arroyo PA-C [address] [place] [address] Assigned PCP 07/30/20 Pietro Wills MD [address] [place] [address] Assigned Heart and Vascular Provider 12/14/22 Tank Bucio MD [address] [facility], [address] [address] Physician coding manager 12/01/23 documented as of this encounter
--- OUTSIDE RECORDS SUMMARY | 2024-06-02 16:58 | XMS_ITS | Encounter Summary ---
Author Organization [place] Address [address] [place] [address]. [place] [address] Care Team Providers Care Wind Turbine Engineer Name Role Phone Salina Doherty MD Unavailable [phone] Carrillo Ware APRN STEWARD/STEWARDESS SECOND CLASS Unavailable SolitarioAngelica golden NP Unavailable Nelson Arroyo PA-C Primary Care Provider Nelson Arroyo PA-C Unavailable Pietro Wills MD Unavailable [phone] Tank Bucio MD Unavailable [phone] Encounter Details Date Type Department Care Team (Late st Contact Info) Description 02/09/2021 MyC Medical Advice [facility] [address] [place] [address] Nelson Arroyo PA-C [address] [place] [address] Social History Tobacco Use Types [...] PM CDT 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:44 AM BRAZING MACHINE FEEDER Gender Identity Female 10/03/2020 8:33 PM CDT Sexual Orientation Straight 07/01/2018 3: 40 PM BRAZING MACHINE FEEDER documented as of this encounter Plan of Treatment Not on file documented as of this encounter Visit Diagnoses Not on filedocumented in this encounter Additional Health Concerns Assessment Noted Time PHQ-9 Depression Total Score: 4 10/19/19 21 5:12 PM CDT documented as of this encounter Care Teams Wind Turbine Engineer Relationship Specialty Start Date End Date Nelson Arroyo PA-C [address] [address] PCP - General Physician Head Charrer - Medical 08/06/18 Salina Doherty MD Internal Medicine 12/01/14 Carrillo Ware APRN STEWARD/STEWARDESS SECOND CLASS [address] [place] [address] Nurse Practitioner Nurse Practitioner 12/16/14 Angelica Jerez NP [facility] [address] [place], [place] [address] Nurse Practitioner Nurse Practitioner - Family 07/12/16 Nelson Arroyo PA-C [address] [address] Assigned PCP 07/30/20 Pietro Wills MD [address] [address] Assigned Heart and Vascular Provider 12/14/22 Tank Bucio MD [facility] [address], [facility] 100 [place] [address] Physician senior chemical engineer 12/01/23 documented as of this encounter
--- OUTSIDE RECORDS SUMMARY | 2024-06-02 16:58 | XMS_ITS | Encounter Summary ---
Author Organization [place] Address [address] [place] [address]. [place] [address] Care Team Providers Care Cat Scan Technologist Name Role Phone Salina Doherty MD Unavailable [phone] Carrillo Ware APRN EGG CRATER Unavailable SolitarioAngelica golden NP Unavailable [phone] Nelson Arroyo PA-C Primary Care Provider Nelson Arroyo PA-C Unavailable Pietro Wills MD Unavailable [phone] Tank Bucio MD Unavailable Reason for Visit * Reason Onset Date Comments Refill Request 01/18/2021 (ADDERALL XR) 30 MG, Adderall 10mg Encounter Details Date Type Department Care Team (Late st Contact Info) Description 01/18/2021 MyC Refill [facility] [address] [place] [address] Nelson Arroyo PA-C [address] [place] [address] Refill Request ((ADDERALL XR) 30 MG, Adder... Social History Tobacco Use Types Packs/Day Years [...] PM CDT 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:44 AM JUNIOR BUYER Gender Identity Female 10/03/2020 8:33 PM CDT Sexual Orientation Straight 07/01/2018 3: 40 PM JUNIOR BUYER documented as of this encounter Miscellaneous Notes * Telephone Encounter - Nelson Arroyo PA-C - 01/31/2021 5:02 PM CDT She has these on file for 01/23/21. I thought I had already responded to this and see that I didn't.Concepción was seeing th DIE CAST OPERATOR where we made a brief dose change to 40mg but patient did not like it Terrance sent in again for 30mg. We canceled the remaining Rx's for 40mg (TWO 20mg XR capsules). She should be set for this month. Nelson * Telephone Encounter - Concepción Gonzalez APRN CNP - 01/22/2021 11:29 AM CDT Note from PCP on 10/18: Attention deficit hyperactivity disorder (ADHD), predominantly inattentive type Dose increase- take TWO 20mgXR daily. This is up from 30mg. Follow up ok in 3 months to let me know how new dosing is going. - amphetamine-dextroamphetamine (ADDERALL XR) 20 MG 24 hr capsule; Take 1 capsule (20 mg) by mouth 2 times daily - amphetamine-dextroamphetamine (ADDERALL XR) 20 MG 24 hr capsule; Take 1 capsule (20 mg) by mouth 2 times daily - amphetamine-dextroamphetamine (ADDERALL XR) 20 MG 24 hr capsule; Take 1 capsule (20 mg) by mouth 2 times daily Her DIE CAST OPERATOR is confusing to me. She filled 20 mg XR adderall on 11/17 and the 30 mg XR adderall on 11/22.According to her last note she is no longer taking the 30 mg? Will leave for PCP to address when back in clinic. Concepción Gonzalez CNP * Telephone Encounter - Maude Singh RN - 01/19/2021 12:33 PM CDT (ADDERALL XR) 30 MG, Adderall 10mg Last Written Prescription Date: 12/23/2020 Last Fill Quantity: 30, 60, # refills: 0 Last Office Visit: 10/18/2020 Future Office visit: Routing refill request to provider for review/approval because: Drug not on the [facility], [facility] or [facility] refill protocol or controlled substance Maude Singh RN documented in this encounter Plan of Treatment Not on file documented as of this encounter 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), predominantly inattentive type documented in this encounter Additional Health Concerns Assessment Noted Time PHQ-9 Depression Total Score: 4 10/19/19 21 5:12 PM CDT documented as of this encounter Care Teams Cat Scan Technologist Relationship Specialty Start Date End Date Nelson Arroyo PA-C [address] [place] [address] PCP - General Physician Parts Back Counter Man - Medical 08/06/18 Salina Doherty MD Internal Medicine 12/01/14 Carrillo Ware APRN EGG CRATER [address] [place] [address] 886685 Nurse Practitioner Nurse Practitioner 12/16/14 Angelica Jerez NP [address] 9869[address] Nurse Practitioner Nurse Practitioner - Family 07/12/16 Nelson Arroyo PA-C [address] [place] [address] Assigned PCP 07/30/20 Pietro Wills MD [address] [place] [address] Assigned Heart and Vascular Provider 12/14/22 Tank Bucio MD [address] [facility], [address] [address] Physician strip presser 12/01/23 documented as of this encounter
--- OUTSIDE RECORDS SUMMARY | 2024-06-02 16:58 | XMS_ITS | Encounter Summary ---
Author Organization [place] Address [address] [place] [address]. [place] [address] Care Team Providers Care Talent Sourcer Name Role Phone Salina Doherty MD Unavailable [phone] Carrillo Ware APRN ABSORPTION OPERATOR Unavailable [phone] SolitarioAngelica golden NP Unavailable Nelson Arroyo PA-C Primary Care Provider eNlson Arroyo PA-C Unavailable [phone] Pietro Wills MD Unavailable Tank Bucio MD Unavailable [phone] Reason for Visit * Reason Comments Medication Refill Encounter Details Date Type Department Care Team (Late st Contact Info) Description 08/07/[address] [facility] [address] [place] [address] Nelson Arroyo PA-C [address] [place] [address] Medication Refill Social History Tobacco [...] PM CDT 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:44 AM OUTSIDE MAINTENANCE WORKER Gender Identity Female 10/03/2020 8:33 PM CDT Sexual Orientation Straight 07/01/2018 3: 40 PM OUTSIDE MAINTENANCE WORKER COVID-19 Exposure Response Date Recorded In the last month, have you been in contact with someone who was confirmed or suspected to have Coronavirus / COVID-19? No / Unsure 08/08/2021 6:33 AM CDT documented as of this encounter Miscellaneous Notes * Telephone Encounter - Yodit Otero RN - 08/07/2021 11:53 AM CDT Routing refill request to provider for review/approval because: Drug not on the G refill protocol Yodit Otero RN on 08/07/2021 at 11:53 AM documented in this encounter Plan of Treatment Not on file documented as of this encounter Visit Diagnoses Diagnosis Generalized anxiety disorder Seasonal allergic rhinitis, unspecified trigger Muscle spasm Spasm of muscle Acne, unspecified acne type documented in this encounter Additional Health Concerns Assessment Noted Time PHQ-9 Depression Total Score: 9 06/04/19 22 12:13 PM OUTSIDE MAINTENANCE WORKER documented as of this encounter Care Teams Talent Sourcer Relationship Specialty Start Date End Date Nelson Arroyo PA-C [address] [place] [address] PCP - General Physician Movement Assembly Final Inspector - Medical 08/06/18 Salina Doherty MD Internal Medicine 12/01/14 Carrillo Ware APRN ABSORPTION OPERATOR [address] [place] [address] Nurse Practitioner Nurse Practitioner 12/16/14 Angelica Jerez NP [facility] [address] [place] [address] Nurse Practitioner Nurse Practitioner - Family 07/12/16 Nelson Arroyo PA-C [address] [place] [address] Assigned PCP 07/30/20 Pietro Wills MD [address] [place] [address] Assigned Heart and Vascular Provider 12/14/22 Tank Bucio MD [address], [facility] 100 [place] [address] Physician quality improvement coordinator (rn) 12/01/23 documented as of this encounter
--- OUTSIDE RECORDS SUMMARY | 2024-06-02 16:58 | XMS_ITS | Encounter Summary ---
Author Organization [place] Address [address] [place] [address]. [place] [address] Care Team Providers Care Registrar College Or University Name Role Phone Salina Doherty MD Unavailable [phone] Carrillo Ware APRN INSIDE SALES ACCOUNT REPRESENTATIVE Unavailable SolitarioAngelica golden NP Unavailable [phone] Nelson Arroyo PA-C Primary Care Provider [phone] Nelson Arroyo PA-C Unavailable [phone] Pietro Wills MD Unavailable Tank Bucio MD Unavailable [phone] Encounter Details Date Type Department Care Team (Late st Contact Info) Description 02/27/2021 [facility] Medical Advice [facility] [address] [place] [address] Nelson Arroyo PA-C [address] [place] [address] Social History Tobacco Use Types [...] PM CDT 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:44 AM ASSET PROTECTION GREETER Gender Identity Female 10/03/2020 8:33 PM CDT Sexual Orientation Straight 07/01/2018 3: 40 PM ASSET PROTECTION GREETER COVID-19 Exposure Response Date Recorded In the last month, have you been in contact with someone who was confirmed or suspected to have Coronavirus / COVID-19? No / Unsure 03/01/2021 1:31 PM CDT documented as of this encounter Plan of Treatment Not on file documented as of this encounter Visit Diagnoses Not on filedocumented in this encounter Additional Health Concerns Assessment Noted Time PHQ-9 Depression Total Score: 0 02/24/20 21 7:01 AM CDT documented as of this encounter Care Teams Registrar College Or University Relationship Specialty Start Date End Date Neslon Arroyo PA-C [address] [place] [address] PCP - General Physician Medical Scientific Officer - Medical 08/06/18 Salina Doherty MD Internal Medicine 12/01/14 Carrilol Ware APRN CNP [address] [place] [id number] Nurse Practitioner Nurse Practitioner 12/16/14 Angelica Jerez NP [facility] [address] [place] [address] Nurse Practitioner Nurse Practitioner - Family 07/12/16 Nelson Arroyo PA-C [address] [address] Assigned PCP 07/30/20 Pietro Wills MD [address] [place] [address] Assigned Heart and Vascular Provider 12/14/22 Tank Bucio MD [address], [facility] [address] [place] [address] Physician wastewater plant operator 12/01/23 documented as of this encounter
--- OUTSIDE RECORDS SUMMARY | 2024-06-02 16:58 | XMS_ITS | Encounter Summary ---
Author Organization [place] Address [address] [place] [address]. [place] [address] Care Team Providers Care Market Sales Manager Name Role Phone Salina Doherty MD Unavailable Carrillo Ware APRN HOME ENERGY CONSULTANT Unavailable [phone] SolitarioAngelica golden NP Unavailable [phone] Nelson Arroyo PA-C Primary Care Provider [phone] Nelson Arroyo PA-C Unavailable Pietro Wills MD Unavailable Tank Bucio MD Unavailable Reason for Visit * Reason Onset Date Comments Refill Request 01/31/2021 Encounter Details Date Type Department Care Team (Late st Contact Info) Description 01/31/2021 MyC Refill [facility] [address] [place] [address] Nelson Arroyo PA-C [address] [place] [address] Refill Request Social History Tobacco [...] PM CDT 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:44 AM METEOROLOGY FACULTY MEMBER Gender Identity Female 10/03/2020 8:33 PM CDT Sexual Orientation Straight 07/01/2018 3: 40 PM METEOROLOGY FACULTY MEMBER documented as of this encounter Plan of Treatment Not on file documented as of this encounter 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), predominantly inattentive type documented in this encounter Additional Health Concerns Assessment Noted Time PHQ-9 Depression Total Score: 4 10/19/19 21 5:12 PM CDT documented as of this encounter Care Teams Market Sales Manager Relationship Specialty Start Date End Date Nelson Arroyo PA-C [address] [place] [address] PCP - General Physician Zipper Machine Operator - Medical 08/06/18 Salina Doherty MD Internal Medicine 12/01/14 Carrillo Ware APRN HOME ENERGY CONSULTANT [address] [place] [address] [id number] Nurse Practitioner Nurse Practitioner 12/16/14 Angelica Jerez NP [address] 420977 Nurse Practitioner Nurse Practitioner - Family 07/12/16 Nelson Arroyo PA-C [address] [address] Assigned PCP 07/30/20 Pietro Wills MD [address] 464265 Assigned Heart and Vascular Provider 12/14/22 Tank Bucio MD [address], [address] [address] Physician racking machine operator 12/01/23 documented as of this encounter
--- OUTSIDE RECORDS SUMMARY | 2024-06-02 16:59 | XMS_ITS | Encounter Summary ---
Author Organization [facility] Address [address] [place] [address] Care Team Providers Care Windows Application Administrator Name Role Phone Salina Doherty MD Unavailable [phone] Carrillo Ware APRN TAPE WEAVER Unavailable SolitarioAngelica golden NP Unavailable [phone] Nelson Arroyo PA-C Unavailable [phone] Nelson Arroyo PA-C Primary Care Provider [phone] Chinyere Barbour Unavailable Unavailable Nelson Arroyo PA-C Unavailable [phone] Pietro Wills MD Unavailable [phone] Tank Bucio MD Unavailable [phone] Encounter Details Date Type Department Care Team (Late st Contact Info) Description 12/15/2018 MyC Medical Advice [address], [address] [place] [address] Tomasa Ramirez MA Social History Tobacco Use Types Packs/Day Years [...] PM CDT 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:44 AM DIGITAL CONTENT SPECIALIST Gender Identity Female 10/03/2020 8:33 PM CDT Sexual Orientation Straight 07/01/2018 3: 40 PM DIGITAL CONTENT SPECIALIST documented as of this encounter Plan of Treatment Not on file documented as of this encounter Visit Diagnoses Not on filedocumented in this encounter Additional Health Concerns Assessment Noted Time PHQ-9 Depression Total Score: 7 10/23/19 19 11:12 AM CDT documented as of this encounter Care Teams Windows Application Administrator Relationship Specialty Start Date End Date Nelson Arroyo PA-C [address] [address] PCP - General Physician Grounds Restoration Specialist - Medical 08/06/18 Salina Doherty MD Internal Medicine 12/01/14 Carrillo Ware APRN TAPE WEAVER [address] [place] [address] Nurse Practitioner Nurse Practitioner 12/16/14 Angelica Jerez NP [address] [address] Nurse Practitioner Nurse Practitioner - Family 07/12/16 Nelson Arroyo PA-C [address] [address] Assigned PCP 07/05/18 07/29/20 Chinyere Barbour Personal Advocate & Liaison (PAL) 01/31/20 04/26/20 Nelson Arroyo PA-C [address] [address] Assigned PCP 07/30/20 Pietro Wills MD [address] [place] [address] Assigned Heart and Vascular Provider 12/14/22 Tank Bucio MD [address] [facility] [address] [place] [address] Physician java security architect 12/01/23 documented as of this encounter
--- OUTSIDE RECORDS SUMMARY | 2024-06-02 16:59 | XMS_ITS | Encounter Summary ---
Author Organization [facility] Address [address] [place] [address] Care Team Providers Care Shot Polisher And Inspector Name Role Phone Salina Doherty MD Unavailable [phone] Carrillo Ware APRN MOTOR VEHICLE SALESPERSON Unavailable [phone] SolitarioAngelica golden NP Unavailable [phone] Nelson Arroyo PA-C Unavailable [phone] Nelson Arroyo PA-C Primary Care Provider [phone] Chinyere Barbour Unavailable Unavailable Nelson Arroyo PA-C Unavailable [phone] Pietro Wills MD Unavailable [phone] Tank Bucio MD Unavailable [phone] Encounter Details Date Type Department Care Team (Late st Contact Info) Description 10/27/2018 MyC Medical Advice [address], [address] [place] [address] Lexi Reina, RN Social History Tobacco Use Types Packs/Day Years [...] PM CDT 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:44 AM MARINE SUPERINTENDENT Gender Identity Female 10/03/2020 8:33 PM CDT Sexual Orientation Straight 07/01/2018 3: 40 PM MARINE SUPERINTENDENT documented as of this encounter Plan of Treatment Not on file documented as of this encounter Visit Diagnoses Not on filedocumented in this encounter Additional Health Concerns Assessment Noted Time PHQ-9 Depression Total Score: 7 10/23/19 19 11:12 AM CDT documented as of this encounter Care Teams Shot Polisher And Inspector Relationship Specialty Start Date End Date Nelson Arroyo PA-C [address] [address] PCP - General Physician Product Mgmt Dev Manager - Medical 08/06/18 Salina Doherty MD Internal Medicine 12/01/14 Carrillo Ware APRN MOTOR VEHICLE SALESPERSON [address] [place] [address] Nurse Practitioner Nurse Practitioner 12/16/14 Angelica Jerez NP [address] [address] Nurse Practitioner Nurse Practitioner - Family 07/12/16 Nelson Arroyo PA-C [address] [address] Assigned PCP 07/05/18 07/29/20 Chinyere Barbour Personal Advocate & Liaison (PAL) 01/31/20 04/26/20 Nelson Arroyo PA-C [address] [address] Assigned PCP 07/30/20 Pietro Wills MD [address] [place] [address] Assigned Heart and Vascular Provider 12/14/22 Tank Bucio MD [address] [facility] 100 [place] [address] Physician health editor 12/01/23 documented as of this encounter
--- OUTSIDE RECORDS SUMMARY | 2024-06-02 16:59 | XMS_ITS | Encounter Summary ---
Author Organization [facility] Address [address] [place] [address]. [place] [address] Care Team Providers Care Senior Writer Name Role Phone Salina Doherty MD Unavailable [phone] Carrillo Ware APRN HOUSEKEEPING CLEANER Unavailable SolitarioAngelica golden NP Unavailable [phone] Nelson Arroyo PA-C Unavailable Nelson Arroyo PA-C Primary Care Provider Chinyere Barbour Unavailable Unavailable Nelson Arroyo PA-C Unavailable Pietro Wills MD Unavailable Tank Bucio MD Unavailable [phone] Reason for Visit * Reason Onset Date Comments Refill Request 10/18/2018 ADDERALL XR 30MG and ADDERALL 10MG Encounter Details Date Type Department Care Team (Late st Contact Info) Description 10/18/2018 MyC Refill [facility] & Addiction [address] [place] [address] Nelson Arroyo PA-C [address] [place] [address] Refill Request (ADDERALL XR 30MG and ADDER... Social History Tobacco Use Types Packs/Day Years [...] PM CDT 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:44 AM VIDEO OPERATOR Gender Identity Female 10/03/2020 8:33 PM CDT Sexual Orientation Straight 07/01/2018 3: 40 PM VIDEO OPERATOR documented as of this encounter Miscellaneous Notes * Telephone Encounter - Lexi Reina RN - 10/21/2018 8:08 AM CDT Last Written Prescription Date: 09.07.18 Last Fill Quantity: 30, # refills: 0 Last office visit: 08/28/2017 with prescribing provider: Cruz Future Office Visit: Plan RTC 11.05.18 Routing refill request to provider for review/approval because: Drug not on the [facility] refill protocol Lexi Reina RN, BS Clinical Nurse Triage. * Telephone Encounter - Paty Mike - 10/19/2018 2:03 PM CDT Controlled Substance Refill Request for amphetamine-dextroamphetamine (ADDERALL XR) 30 MG 24 hr capsule Problem List Complete: No PROVIDER TO CONSIDER COMPLETION OF PROBLEM LIST AND OVERVIEW/CONTROLLED SUBSTANCE AGREEMENT Last Written Prescription Date: 09/07/18 Last Fill Quantity: 31, # refills: 0 THE MOST RECENT OFFICE VISIT MUST BE WITHIN THE PAST 3 MONTHS. AT LEAST ONE FACE TO FACE VISIT MUSTOCCUR EVERY 6 MONTHS. ADDITIONAL VISITS CAN BE VIRTUAL. (THIS STATEMENT SHOULD BE DELETED.) Last Office Visit with [facility] primary care provider: 08/28/2017 Future Office visit: Controlled substance agreement: Encounter-Level CSA - 08/20/2015: Controlled Substance Agreement - Scan on 08/28/2015 1:25 PM: Margi Controlled Substance Agreement, 08/25/15 (below) Patient-Level CSA: There are no patient-level csa. Last Urine Drug Screen: No results found for: CDAUT, No results found for: COMDAT, No results foundfor: THC13, PCP13, COC13, MAMP13, OPI13, AMP13, BZO13, TCA13, MTD13, BAR13, OXY13, PPX13, BUP13 Processing: Fax Rx to [facility] [email or web address] INSPECTOR HANDBAG FRAMES checked in past 3 months? No, route to RN amphetamine-dextroamphetamine (ADDERALL) 10 MG tablet Last Written Prescription Date: 09/07/18 Last Fill Quantity: 30, # refills: 0 Last Office Visit with [facility] or [facility] prescribing provider: 08/28/2017 documented in this encounter Plan of Treatment Not on file documented as of this encounter 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), predominantly inattentive type documented in this encounter Additional Health Concerns Assessment Noted Time PHQ-9 Depression Total Score: 13 019 7:04 AM CDT documented as of this encounter Care Teams Senior Writer Relationship Specialty Start Date End Date Nelson rAroyo PA-C [address] [place] [address] PCP - General Physician Materials Director - Medical 08/06/18 Salina Doherty MD Internal Medicine 12/01/14 Carrillo Ware APRN HOUSEKEEPING CLEANER [address] [place] [address] Nurse Practitioner Nurse Practitioner 12/16/14 Angelica Jerez NP [facility] [address] [place] [address] Nurse Practitioner Nurse Practitioner - Family 07/12/16 Nelson Arroyo PA-C [address] [place] [address] Assigned PCP 07/05/18 07/29/20 Chinyere Barbour Personal Advocate & Liaison (PAL) 01/31/20 04/26/20 Nelson Arroyo PA-C [address] [address] Assigned PCP 07/30/20 Pietro Wills MD [address] [place] [address] Assigned Heart and Vascular Provider 12/14/22 Tank Bucio MD [address], [facility] 100 [place] [address] Physician clinical secretary 12/01/23 documented as of this encounter
--- OUTSIDE RECORDS SUMMARY | 2024-06-02 16:59 | XMS_ITS | Encounter Summary ---
Author Organization [facility] Address [address] [place] [address]. [place] [address] Care Team Providers Care Music Cataloguer Name Role Phone Salina Doherty MD Unavailable [phone] Carrillo Ware APRN CHEMICAL LABORATORY SCIENTIST Unavailable SolitarioAngelica golden NP Unavailable [phone] Nelson Arroyo PA-C Unavailable [phone] Nelson Arroyo PA-C Primary Care Provider Chinyere Barbour Unavailable Unavailable Nelson Arroyo PA-C Unavailable Pietro Wills MD Unavailable Tank Bucio MD Unavailable Encounter Details Date Type Department Care Team (Late st Contact Info) Description 03/31/2019 MyC Medical Advice [address], [address] [place] [address] Nelson Arroyo PA-C [address] [place] [address] Social History Tobacco Use Types Packs/Day Years Used Date Smoking Tobacco: Former Cigarettes 0.5 2.8 0 06/05/2012 - 03/09/2015 Smokeless Tobacco: Never Quit: 06/01/2014 Comments:Started 17 y/o Alcohol Use Standard Drinks/Week Comments Yes 0 (1 standard drink = 0.6 oz pur e alcohol) Occasionally PHQ-2 Answer Date Recorded PHQ-2 Score 2 02/04/2019 Comments No Sex and Gender Information Value Date Recorded Sex Assigned at Female 10/03/2020 8:33 PM CDT 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:44 AM CYTOLOGY MANAGER Gender Identity Female 10/03/2020 8:33 PM CDT Sexual Orientation Straight 07/01/2018 3: 40 PM CYTOLOGY MANAGER documented as of this encounter Plan of Treatment Not on file documented as of this encounter Visit Diagnoses Not on filedocumented in this encounter Additional Health Concerns Assessment Noted Time PHQ-9 Depression Total Score: 10 019 2:36 PM CDT documented as of this encounter Care Teams Music Cataloguer Relationship Specialty Start Date End Date Nelson Arroyo PA-C [address] [place] [address] PCP - General Physician Warp Spinner - Medical 08/06/18 Salina Doherty MD Internal Medicine 12/01/14 Carrillo Ware APRN CHEMICAL LABORATORY SCIENTIST [address] [place] [address] Nurse Practitioner Nurse Practitioner 12/16/14 Angelica Jerez NP [address] [address] Nurse Practitioner Nurse Practitioner - Family 07/12/16 Nelson Arroyo PA-C [address] [place] [address] Assigned PCP 07/05/18 07/29/20 Chinyere Barbour Personal Advocate & Liaison (PAL) 01/31/20 04/26/20 Nelson Arroyo PA-C [address] [place] [address] Assigned PCP 07/30/20 Pietro Wills MD [address] [place] [address] Assigned Heart and Vascular Provider 12/14/22 Tank Bucio MD [address] [facility] 100 [place] [address] Physician gyn 12/01/23 documented as of this encounter
--- OUTSIDE RECORDS SUMMARY | 2024-06-02 16:59 | XMS_ITS | Encounter Summary ---
Author Organization [facility] Address [address] [place] [address] Care Team Providers Care Silk Screen Printer Name Role Phone Salina Doherty MD Unavailable Carrillo Ware APRN GUT CLEANER Unavailable SolitarioAngelica golden NP Unavailable [phone] Nelson Arroyo PA-C Primary Care Provider Nelson Arroyo PA-C Unavailable [phone] Pietro Wills MD Unavailable [phone] Tank Bucio MD Unavailable Encounter Details Date Type Department Care Team (Late st Contact Info) Description 01/24/2022 Telephone [facility] Behavioral Health Intake [address] [place] [address] Generic, Behavioral Intake, Social History Tobacco Use Types Packs/Day Years [...] CDT 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:44 AM OPERATIONS AGENT Gender Identity Female 10/03/2020 8:33 PM CDT Sexual Orientation Straight 07/01/2018 3: 40 PM OPERATIONS AGENT documented as of this encounter Miscellaneous Notes * Telephone Encounter - Jacqueline Collado - 01/24/2022 3:27 PM CDT ----- Message from Trang Ayala [facility] sent at 01/24/2022 3:15 PM CDT ----- Regarding: transfer from ADT to Clinic 1 Patient Name: ??Anamaria Crystal Location of programming: virtual Start Date: 01/30/22 Group: (#Program Track Name# BHxxxxx on #days of the week# at #start time to end time#) ADT Clinic 1 Friday 1-3pm Provider: (name of MD) dr. heath Number of visits to be scheduled: 12 Length/Duration of Appointment in minutes: 120 Visit Type (VIDEO/TELEPHONE/IN-PERSON): medical zoom Additional notes: documented in this encounter Plan of Treatment Not on file documented as of this encounter Visit Diagnoses Not on filedocumented in this encounter Additional Health Concerns Assessment Noted Time PHQ-9 Depression Total Score: 7 10/23/19 22 11:44 AM CDT documented as of this encounter Care Teams Silk Screen Printer Relationship Specialty Start Date End Date Nelson Arroyo PA-C [address] [place] [address] PCP - General Physician Baker Bench - Medical 08/06/18 Salina Doherty MD Internal Medicine 12/01/14 Carrillo Ware APRN GUT CLEANER [address] [place] [address] Nurse Practitioner Nurse Practitioner 12/16/14 Angelica Jerez NP [address] [address] Nurse Practitioner Nurse Practitioner - Family 07/12/16 Nelson Arroyo PA-C [address] [place] [address] Assigned PCP 07/30/20 Pietro Wills MD [address] [place] [address] Assigned Heart and Vascular Provider 12/14/22 Tank Bucio MD [address], [facility] 100 [place] [address] Physician manager erp 12/01/23 documented as of this encounter
--- OUTSIDE RECORDS SUMMARY | 2024-06-02 16:59 | XMS_ITS | Encounter Summary ---
Author Organization [facility] Address [address] [place] [address]. [place] [address] Care Team Providers Care Park Manager Name Role Phone Salina Doherty MD Unavailable [phone] Carrillo Ware APRN SEED ANALYST Unavailable SolitarioAngelica golden NP Unavailable [phone] Nelson Arroyo PA-C Unavailable Nelson Arroyo PA-C Primary Care Provider Chinyere Barbour Unavailable Unavailable Nelson Arroyo PA-C Unavailable Pietro Wills MD Unavailable [phone] Tank Bucio MD Unavailable Reason for Visit * Reason Onset Date Comments Refill Request 09/02/2018 tiZANidine (ALIZA FLEX) 4 MG tablet Encounter Details Date Type Department Care Team (Late st Contact Info) Description 09/02/2018 MyC Refill [place] [id number] [facility], [address] [place] [address] Nelson Arroyo PA-C [address] [place] [address] Refill Request (tiZANidine (ZANAFLEX) 4 MG... Social History Tobacco Use Types Packs/Day Years [...] PM CDT 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:44 AM ACCOUNT PROCESSOR Gender Identity Female 10/03/2020 8:33 PM CDT Sexual Orientation Straight 07/01/2018 3: 40 PM ACCOUNT PROCESSOR documented as of this encounter Miscellaneous Notes * Telephone Encounter - Lexi Reina RN - 09/03/2018 11:39 AM CDT Routing refill request to provider for review/approval because: Drug not on the [facility] refill protocol I see you commented today about referring to [place] Earlier encounter this month you mentioned PT or pain clinic too Please advise, approve or deny med Lexi Reina RN, BS Clinical Nurse Triage. * Telephone Encounter - Paty Mike - 09/03/2018 9:18 AM CDT Requested Prescriptions Pending Prescriptions Disp Refills ??? tiZANidine (ZANAFLEX) 4 MG tablet 90 tablet 0 Sig: Take 1 tablet (4 mg) by mouth 3 times daily as needed for muscle spasms Last Written Prescription Date: 08/07/18 Last Fill Quantity: 90, # refills: 0 Last Office Visit: 08/06/2018 Future Office Visit: There is no refill protocol information for this order See other encounter documented in this encounter Plan of Treatment Not on file documented as of this encounter Visit Diagnoses Diagnosis Muscle spasm Spasm of muscle Cervicalgia documented in this encounter Additional Health Concerns Assessment Noted Time PHQ-9 Depression Total Score: 13 019 7:04 AM CDT documented as of this encounter Care Teams Park Manager Relationship Specialty Start Date End Date Nelson Arroyo PA-C [address] [place] [address] PCP - General Physician Windows Systems Administrator - Medical 08/06/18 Salina Doherty MD Internal Medicine 12/01/14 Carrillo Ware APRN SEED ANALYST [address] [place] [address] Nurse Practitioner Nurse Practitioner 12/16/14 Angelica Jerez NP [facility] [address] [place] [address] Nurse Practitioner Nurse Practitioner - Family 07/12/16 Nelson Arroyo PA-C [address] [place] [place] [address] Assigned PCP 07/05/18 07/29/20 Chinyere Barbour Personal Advocate & Liaison (PAL) 01/31/20 04/26/20 Nelson Arroyo PA-C [address] [place] [address] Assigned PCP 07/30/20 Pietro Wills MD [address] [place] [address] Assigned Heart and Vascular Provider 12/14/22 Tank Bucio MD [address] [facility], [facility] 100 [place] [address] Physician clothing manager 12/01/23 documented as of this encounter
--- OUTSIDE RECORDS SUMMARY | 2024-06-02 16:59 | XMS_ITS | Encounter Summary ---
Author Organization [facility] Address [address] [place] [address]. [place] [address] Care Team Providers Care Ground Crew Supervisor Name Role Phone Salina Doherty MD Unavailable [phone] Carrillo Ware APRN FORESTRY WORKERS Unavailable SolitarioAngelica golden NP Unavailable [phone] Nelson Arroyo PA-C Unavailable Nelson Arroyo PA-C Primary Care Provider Chinyere Barbour Unavailable Unavailable Nelson Arroyo PA-C Unavailable [phone] Pietro Wills MD Unavailable [phone] Tank Bucio MD Unavailable Reason for Visit * Reason Onset Date Comments Refill Request 04/25/2019 Zulay Wang in Encounter Details Date Type Department Care Team (Late st Contact Info) Description 04/25/2019 MyC Refill [address], [address] [place] [address] Nelson Arroyo PA-C [address] [place] [address] Refill Request (Rossy Wang) Social History Tobacco Use Types Packs/Day Years [...] PM CDT 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:44 AM CLOTH PATTERN MAKER Gender Identity Female 10/03/2020 8:33 PM CDT Sexual Orientation Straight 07/01/2018 3: 40 PM CLOTH PATTERN MAKER documented as of this encounter Miscellaneous Notes * Telephone Encounter - Mariella Tamayo - 04/29/2019 10:16 AM CST Sent message. Mariella Tamayo, Casino Floor Supervisor H PATTERN MAKER * Telephone Encounter - Russel Pak MD - 04/27/2019 7:11 AM CLOTH PATTERN MAKER Last PHQ showing significant sx. Pt should be seen for f/u. Please call to schedule. 1m refill provided. H PATTERN MAKER * Telephone Encounter - Maude Singh RN - 04/26/2019 2:55 PM CST Buspar, Wellbutrin Last Written Prescription Date: 12/03/2018 ([facility]) Last Fill Quantity: 90, # refills: 1 Last office visit: 02/04/2019 with prescribing provider: Future Office Visit: PHQ-9 SCORE 08/06/2018 10/22/2018 02/04/2019 PHQ-9 Total Score - - - PHQ-9 Total Score MyChart 13 (Moderate depression) - 10 (Moderate depression) PHQ-9 Total Score 13 7 10 SHANTELL-7 SCORE 08/06/2018 10/22/2018 02/04/2019 Total Score - - - Total Score - - 13 (moderate anxiety) Total Score 12 11 13 Routing refill request to provider for review/approval because: PHQ-9 > 4. Maude Singh RN H PATTERN MAKER documented in this encounter Plan of Treatment Not on file documented as of this encounter Visit Diagnoses Diagnosis Generalized anxiety disorder Major depressive disorder, recurrent episode, moderate (H) Major depressive disorder, recurrent episode, moderate Muscle spasm Spasm of muscle Cervicalgia documented in this encounter Additional Health Concerns Assessment Noted Time PHQ-9 Depression Total Score: 10 019 2:36 PM CDT documented as of this encounter Care Teams Ground Crew Supervisor Relationship Specialty Start Date End Date Nelson Arroyo PA-C [address] [address] PCP - General Physician Door Trimmer - Medical 08/06/18 Salina Doherty MD Internal Medicine 12/01/14 Carrillo Ware APRN FORESTRY WORKERS [address] [place] [address]38205 Nurse Practitioner Nurse Practitioner 12/16/14 Angelica Jeerz NP [address] [id number] Nurse Practitioner Nurse Practitioner - Family 07/12/16 Nelson Arroyo PA-C [address] [address] Assigned PCP 07/05/18 07/29/20 Chinyere Barbour Personal Advocate & Liaison (PAL) 01/31/20 04/26/20 Nelson Arroyo PA-C [address] [address] Assigned PCP 07/30/20 Pietro Wills MD [address] [address] Assigned Heart and Vascular Provider 12/14/22 Tank Bucio MD [address], [facility] [address] [place] [address] Physician newspaper vendor 12/01/23 documented as of this encounter
--- OUTSIDE RECORDS SUMMARY | 2024-06-02 16:59 | XMS_ITS | Encounter Summary ---
Author Organization [facility] Address [address] [place] [address] Care Team Providers Care Boarding Room Fixer Name Role Phone Salina Doherty MD Unavailable [phone] Carrillo Ware APRN INSTRUCTION LIBRARIAN Unavailable SolitarioAngelica golden NP Unavailable [phone] Nelson Arroyo PA-C Unavailable [phone] Nelson Arroyo PA-C Primary Care Provider Chinyere Barbour Unavailable Unavailable Nelson Arroyo PA-C Unavailable [phone] Pietro Wills MD Unavailable [phone] Tank Bucio MD Unavailable [phone] Encounter Details Date Type Department Care Team (Late st Contact Info) Description 04/29/2019 MyC Medical Advice [address], [address] [place] [address] Mariella Tamayo Social History Tobacco Use Types Packs/Day Years [...] PM CDT 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:44 AM OPERATOR WEAPON LOCATING RADAR Gender Identity Female 10/03/2020 8:33 PM CDT Sexual Orientation Straight 07/01/2018 3: 40 PM OPERATOR WEAPON LOCATING RADAR documented as of this encounter Plan of Treatment Not on file documented as of this encounter Visit Diagnoses Not on filedocumented in this encounter Additional Health Concerns Assessment Noted Time PHQ-9 Depression Total Score: 10 019 2:36 PM CDT documented as of this encounter Care Teams Boarding Room Fixer Relationship Specialty Start Date End Date Nelson Arroyo PA-C [address] [address] PCP - General Physician Treasury Associate - Medical 08/06/18 Salina Doherty MD Internal Medicine 12/01/14 Carrillo Ware APRN INSTRUCTION LIBRARIAN [address] [place] [address] Nurse Practitioner Nurse Practitioner 12/16/14 Angelica Jerez NP [address] [address] Nurse Practitioner Nurse Practitioner - Family 07/12/16 Nelson Arroyo PA-C [address] [address] Assigned PCP 07/05/18 07/29/20 Chinyere Barbour Personal Advocate & Liaison (PAL) 01/31/20 04/26/20 Nelson Arroyo PA-C [address] [address] Assigned PCP 07/30/20 Pietro Wills MD [address] [place] [address] Assigned Heart and Vascular Provider 12/14/22 Tank Bucio MD [address] [facility] 100 [place] [address] Physician fusing line inspector 12/01/23 documented as of this encounter
--- OUTSIDE RECORDS SUMMARY | 2024-06-02 16:59 | XMS_ITS | Encounter Summary ---
Author Organization [facility] Address [address] [place] [address]. [place] [address] Care Team Providers Care Apparel Stock Checker Name Role Phone Salina Doherty MD Unavailable Carrillo Ware APRN SHELLFISH DREDGE OPERATOR Unavailable SolitarioAngelica golden NP Unavailable [phone] Nelson Arroyo PA-C Unavailable [phone] Nelson Arroyo PA-C Primary Care Provider Chinyere Barbour Unavailable Unavailable Nelson Arroyo PA-C Unavailable Pietro Wills MD Unavailable [phone] Tank Bucio MD Unavailable Encounter Details Date Type Department Care Team (Late st Contact Info) Description 04/04/2019 MyC Medical Advice [address], [address] [place] [address] Nelson Arroyo PA-C [address] [place] [address] Social History Tobacco Use Types [...] PM CDT 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:44 AM STORE CASHIER Gender Identity Female 10/03/2020 8:33 PM CDT Sexual Orientation Straight 07/01/2018 3: 40 PM STORE CASHIER documented as of this encounter Plan of Treatment Not on file documented as of this encounter Visit Diagnoses Not on filedocumented in this encounter Additional Health Concerns Assessment Noted Time PHQ-9 Depression Total Score: 10 019 2:36 PM CDT documented as of this encounter Care Teams Apparel Stock Checker Relationship Specialty Start Date End Date Nelson Arroyo PA-C [address] [place] [address] PCP - General Physician Ui Ux Web Developer - Medical 08/06/18 Salina Doherty MD Internal Medicine 12/01/14 Carrillo Ware APRN SHELLFISH DREDGE OPERATOR [address] [place] [id number] Nurse Practitioner Nurse Practitioner 12/16/14 Angelica Jerez NP [address] [id number] Nurse Practitioner Nurse Practitioner - Family 07/12/16 Nelson Arroyo PA-C [address] [place] [address] Assigned PCP 07/05/18 07/29/20 Chinyere Barbour Personal Advocate & Liaison (PAL) 01/31/20 04/26/20 Nelson Arroyo PA-C [address] [place] [address] Assigned PCP 07/30/20 Pietro Wills MD [address] [place] [address] Assigned Heart and Vascular Provider 12/14/22 Tank Bucio MD [address] [facility] [address] [place] [address] Physician neurophysiologist 12/01/23 documented as of this encounter
--- OUTSIDE RECORDS SUMMARY | 2024-06-02 16:59 | XMS_ITS | Encounter Summary ---
Author Organization [facility] Address [address] [place] [address]. [place] [address] Care Team Providers Care Roll Icer Machine Name Role Phone Salina Doherty MD Unavailable Carrillo Ware APRN ACID BATH MIXER Unavailable [phone] SolitarioAngelica golden NP Unavailable [phone] Nelson Arroyo PA-C Primary Care Provider Nelson Arroyo PA-C Unavailable Pietro Wills MD Unavailable [phone] Tank Bucio MD Unavailable Reason for Visit * Reason Onset Date Comments Refill Request 12/12/2021 Encounter Details Date Type Department Care Team (Late st Contact Info) Description 12/12/2021 MyC Refill [facility] [address] [place] [address] Nelson Arroyo PA-C [address] [place] [address] Refill Request Social History Tobacco [...] PM CDT 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:44 AM PAVING MACHINE OPERATOR Gender Identity Female 10/03/2020 8:33 PM CDT Sexual Orientation Straight 07/01/2018 3: 40 PM PAVING MACHINE OPERATOR documented as of this encounter Miscellaneous Notes * Telephone Encounter - Kay Zambrano RN - 12/31/2021 10:14 AM CDT Sent [facility] to call us regarding her buspar. * Telephone Encounter - aRe Hernandez RN - 12/18/2021 8:38 AM CDT Had refill request for Buspar 10 mg once a day. Pt had 180 tabs ordered on 10/17/21. See also refill request from 12/10/21. Called [facility] pharmacy, to verify how many tabs dispensed from 10/17/21 refill. Spoke to Bayron Raman. States filled Buspar 10mg once daily on 10/25/21, dispensed 90 tabs. In addition, pharmacist states on 12/16/21 pt picked up Buspar 5 mg twice daily 14 tabs for 1 week. RN not able to find the Buspar 5 mg twice daily in our records. Called [facility] pharmacist back to find out who prescribed that prescription. Spoke w/ states Lamine Buspar 5 mg twice daily ordered by Dr Jefferson ([facility]). Called pt to clarify if she has changed providers and to try to clear up this prescription. LMTCB. Rae Payne RN documented in this encounter Plan of Treatment Not on file documented as of this encounter Visit Diagnoses Diagnosis Generalized anxiety disorder documented in this encounter Additional Health Concerns Assessment Noted Time PHQ-9 Depression Total Score: 7 10/23/19 11:44 AM CDT documented as of this encounter Care Teams Roll Icer Machine Relationship Specialty Start Date End Date Nelson Arroyo PA-C [address] [place] [address] PCP - General Physician Attic Blower - Medical 08/06/18 Salina Doherty MD Internal Medicine 12/01/14 Carrillo Ware APRN ACID BATH MIXER [address] [place] [address] Nurse Practitioner Nurse Practitioner 12/16/14 Angelica Jerez NP [facility] [address] [place] [address] Nurse Practitioner Nurse Practitioner - Family 07/12/16 Nelson Arroyo PA-C [address] [place] [address] Assigned PCP 07/30/20 Pietro Wills MD [address] [place] [address] Assigned Heart and Vascular Provider 12/14/22 Tank Bucio MD [facility] [address] [address] Physician ballpoint pens assembler 12/01/23 documented as of this encounter
--- OUTSIDE RECORDS SUMMARY | 2024-06-02 16:59 | XMS_ITS | Encounter Summary ---
Author Organization [facility] Address [address] [place] [address]. [place] [address] Care Team Providers Care Sales Floor Manager Name Role Phone Salina Doherty MD Unavailable [phone] Carrillo Ware APRN RETORT PRESS OPERATOR Unavailable [phone] SolitarioAngelica golden NP Unavailable [phone] Nelson Arroyo PA-C Unavailable Nelson Arroyo PA-C Primary Care Provider [phone] Chinyere Barbour Unavailable Unavailable Nelson Arroyo PA-C Unavailable Pietro Wills MD Unavailable Tank Bucio MD Unavailable Reason for Visit * Reason Onset Date Comments Refill Request 08/30/2018 clonazePAM, tiZA Nidine, and QUEtiapine Encounter Details Date Type Department Care Team (Late st Contact Info) Description 08/30/2018 MyC Refill [address], [address] [place] [address] Nelson Arroyo PA-C [address] [place] [address] Refill Request (clonazePAM, tiZANidine, an... 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 clonazePAM (KLONOPIN) 0.5 MG tablet Sig - Route: Take 1 tablet (0.5 mg) by mouth daily as needed for anxiety - Oral Last Written Prescription Date: 08/06/18 Last Fill Quantity: 30, # refills: 0 Last Office Visit with [facility], [facility] or Health prescribing provider: 08/06/2018 Cruz Return in about 3 months (around 11/05/2018) for Med Check. tiZANidine (ZANAFLEX) 4 MG tablet Sig - Route: Take 1 tablet (4 mg) by mouth 3 times daily as needed for muscle spasms - Oral Last Written Prescription Date: 08/07/18 Last Fill Quantity: 90, # refills: 0 Last Office Visit with [facility], [facility] or Health prescribing provider: 08/06/2018 Requested Prescriptions Pending Prescriptions Disp Refills ??? QUEtiapine (SEROQUEL) 300 MG tablet 30 tablet 2 Sig: TAKE ONE TABLET BY MOUTH AT BEDTIME Antipsychotic Medications Failed - 08/31/2018 8:54 AM Failed - Lipid panel on file within the past 12 months Recent Labs Lab Test 07/07/17 0728 CHOL 186 TRIG 146 HDL 47* LDL 110* NHDL 139* Passed - Blood pressure under 140/90 in past 12 months BP Readings from Last 3 Encounters: 08/06/18 108/66 06/29/18 112/76 06/22/18 122/84 Passed - Patient is 12 years of age or older Passed - CBC on file in past 12 months Recent Labs Lab Test 05/15/18 1533 WBC 9.9 RBC 5.11 HGB 14.1 HCT 42.8 PLT 394 Passed - Heart Rate on file within past 12 months Pulse Readings from Last 3 Encounters: 08/06/18 96 06/29/18 80 06/22/18 94 Passed - A1c or Glucose on file in past 12 months Recent Labs Lab Test 05/15/18 1533 GLC 106* Please review patients last 3 weights. If a weight gain of >10 lbs exists, you may refill the prescription once after instructing the patient to schedule an appointment within the next 30 days. Wt Readings from Last 3 Encounters: 08/06/18 102.5 kg (226 lb) 06/22/18 105.8 kg (233 lb 4.8 oz) 05/15/18 105.8 kg (233 lb 4.8 oz) Passed - Medication is active on med [...] & Orders section of the refill encounter. documented in this encounter Plan of Treatment [...] documented as of this encounter Care Teams Sales Floor Manager Relationship Specialty Start Date End Date Nelson Arroyo PA-C [address] [place] [place] [address] PCP - General Physician Director Of Community Education - Medical 08/06/18 Salina Doherty MD Internal Medicine 12/01/14 Carrillo Ware APRN RETORT PRESS OPERATOR [address] [place] [id number] Nurse Practitioner Nurse Practitioner 12/16/14 Angelica Jerez NP [address] [address] Nurse Practitioner Nurse Practitioner - Family 07/12/16 Nelson Arroyo PA-C [address] [place] [address] Assigned PCP 07/05/18 07/29/20 Chinyere Barbour Personal Advocate & Liaison (PAL) 01/31/20 04/26/20 Nelson Arroyo PA-C [address] [place] [address] Assigned PCP 07/30/20 Pietro Wills MD [address] [place] [address] Assigned Heart and Vascular Provider 12/14/22 Tank Bucio MD [address] [place], [facility] [address] [place] [address] Physician wrapper and preserver 12/01/23 documented as of this encounter
--- OUTSIDE RECORDS SUMMARY | 2024-06-02 16:59 | XMS_ITS | Encounter Summary ---
Author Organization [facility] Address [address] [place] [address]. [place] [address] Care Team Providers Care Director East Coast Sales Name Role Phone Salina Doherty MD Unavailable [phone] Carrillo Ware APRN ASSOCIATE PROFESSOR OF BIBLICAL STUDIES Unavailable SolitarioAngelica golden NP Unavailable [phone] Nelson Arroyo PA-C Unavailable Nelson Arroyo PA-C Primary Care Provider [phone] Chinyere Barbour Unavailable Unavailable Nelson Arroyo PA-C Unavailable Pietro Wills MD Unavailable Tank Bucio MD Unavailable Reason for Visit * Reason Onset Date Comments Refill Request 09/01/2018 clonazePAM, tiZA Nidine, propranolol, QUEtiapine, and traZODone Encounter Details Date Type Department Care Team (Late st Contact Info) Description 09/01/2018 MyC Refill [address], [address] [place] [address] Nelson Arroyo PA-C [address] [facility] [place] [address] Refill Request (clonazePAM, tiZANidine, pr... 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 * Telephone Encounter - Paty Mike - 09/01/2018 12:57 PM CDT tiZANidine (ZANAFLEX) 4 MG tablet Sig - Route: Take 1 tablet (4 mg) by mouth 3 times daily as needed for muscle spasms - Oral Last Written Prescription Date: 08/07/18 Last Fill Quantity: 90, # refills: 0 Last Office Visit with [facility], P or [facility] prescribing provider: 08/06/2018 clonazePAM (KLONOPIN) 0.5 MG tablet Sig - Route: Take 1 tablet (0.5 mg) by mouth daily as needed for anxiety - Oral Last Written Prescription Date: 08/06/18 Last Fill Quantity: 30, # refills: 0 Last Office Visit with [facility], [facility] or [facility] prescribing provider: 08/06/2018 Routing refill request to provider for review/approval because: Drug not on the [facility], [facility] or [facility] refill protocol or controlled substance Requested Prescriptions Pending Prescriptions Disp Refills ??? propranolol ER (INDERAL LA) 120 MG 24 hr capsule 60 capsule 2 Sig: Take 1 capsule (120 mg) by mouth 2 times daily Last Written Prescription Date: 08/06/18 Last Fill Quantity: 60, # refills: 2 Last Office Visit: 08/06/2018 Future Office Visit: Beta-Blockers Protocol Passed - 09/01/2018 11:32 AM Passed - Blood pressure under 140/90 in past 12 months BP Readings from Last 3 Encounters: 08/06/18 108/66 06/29/18 112/76 06/22/18 122/84 Passed - Patient is age 6 or older Passed - Recent (12 mo) or future [...] - Medication is active on med list ??? QUEtiapine (SEROQUEL) 300 MG tablet 30 tablet 2 Sig: TAKE ONE TABLET BY MOUTH AT BEDTIME Last Written Prescription Date: 08/06/18 Last Fill Quantity: 30, # refills: 2 Last Office Visit: 08/06/2018 Future Office Visit: Antipsychotic Medications Failed - 09/01/2018 11:32 AM Failed - Lipid panel on file [...] & Orders section of the refill encounter. ??? traZODone (DESYREL) 50 MG tablet 30 tablet 1 Sig: Take 1 tablet (50 mg) by mouth At Bedtime Last Written Prescription Date: 08/12/18 Last Fill Quantity: 30, # refills: 1 Last Office Visit: 08/06/2018 Future Office Visit: Serotonin Modulators Passed - 09/01/2018 11:32 AM Passed - Recent (12 mo) or future [...] as of this encounter Visit Diagnoses Diagnosis Palpitations Sinus tachycardia Other specified cardiac dysrhythmias Generalized anxiety disorder Major depressive disorder, recurrent episode, moderate (H) Major depressive disorder, recurrent episode, moderate Muscle spasm Spasm of muscle Cervicalgia Persistent insomnia Persistent disorder of initiating or maintaining sleep documented in this encounter Additional Health Concerns Assessment Noted Time PHQ-9 Depression Total Score: 13 019 7:04 AM CDT documented as of this encounter Care Teams Director East Coast Sales Relationship Specialty Start Date End Date Nelson Arroyo PA-C [address] [address] PCP - General Physician Casual Shoe Inspector - Medical 08/06/18 Salina Doherty MD Internal Medicine 12/01/14 Carrillo Ware APRN ASSOCIATE PROFESSOR OF BIBLICAL STUDIES [address] [place] [address] Nurse Practitioner Nurse Practitioner 12/16/14 Angelica Jerez, CAVALRY SCOUT [facility] [address] [place] [address] Nurse Practitioner Nurse Practitioner - Family 07/12/16 Nelson Arroyo PA-C [address] [place] [address] Assigned PCP 07/05/18 07/29/20 Chinyere Barbour Personal Advocate & Liaison (PAL) 01/31/20 04/26/20 Nelson Arroyo PA-C [address] [address] [place] [id number] Assigned PCP 07/30/20 Pietro Wills MD [address] [place] [address] Assigned Heart and Vascular Provider 12/14/22 Tank Bucio MD [address], [facility] [address] [place] [address] Physician drainage design coordinator 12/01/23 documented as of this encounter
--- OUTSIDE RECORDS SUMMARY | 2024-06-02 16:59 | XMS_ITS | Encounter Summary ---
Author Organization [facility] Address [address] [place] [address]. [place] [address] Care Team Providers Care Barrel Rifler Hook Name Role Phone Salina Doherty MD Unavailable [phone] Carrillo Ware APRN STAFF NURSE ICU RESOURCE TEAM Unavailable SolitarioAngelica golden NP Unavailable [phone] Nelson Arroyo PA-C Unavailable [phone] Nelson Arroyo PA-C Primary Care Provider Chinyere Barbour Unavailable Unavailable Nelson Arroyo PA-C Unavailable Pietro Wills MD Unavailable Tank Bucio MD Unavailable Encounter Details Date Type Department Care Team (Late st Contact Info) Description 08/12/2018 MyC Medical Advice [facility] [address] [place] [address], [address] [place] [address] Nelson Arroyo PA-C [address] [place] [address] Social History Tobacco Use Types [...] PM CDT 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 Gender Identity Female 10/03/2020 8:33 PM CDT Sexual Orientation Straight 07/01/2018 3: 40 PM HAM ROLLING MACHINE OPERATOR documented as of this encounter Plan of Treatment Not on file documented as of this encounter Visit Diagnoses Not on filedocumented in this encounter Additional Health Concerns Assessment Noted Time PHQ-9 Depression Total Score: 13 019 7:04 AM CDT documented as of this encounter Care Teams Barrel Rifler Hook Relationship Specialty Start Date End Date Nelson Arroyo PA-C [address] [place] [address] PCP - General Physician Filbert Grower - Medical 08/06/18 Salina Doherty MD Internal Medicine 12/01/14 Carrillo Ware APRN CNP [address] [place] [address] Nurse Practitioner Nurse Practitioner 12/16/14 Angelica Jerez NP [address] 5[address] Nurse Practitioner Nurse Practitioner - Family 07/12/16 Nelson Arroyo PA-C [address] [place] [address] Assigned PCP 07/05/18 07/29/20 Chinyere Barbour Personal Advocate & Liaison (PAL) 01/31/20 04/26/20 Nelson Arroyo PA-C [address] [place] [address] Assigned PCP 07/30/20 Pietro Wills MD [address] [place] [address] Assigned Heart and Vascular Provider 12/14/22 Tank Bucio MD [address] [facility], [address] [address] Physician publishing editor 12/01/23 documented as of this encounter
--- OUTSIDE RECORDS SUMMARY | 2024-06-02 16:59 | XMS_ITS | Encounter Summary ---
Author Organization [facility] Address [address] [place] [address]. [place] [address] Care Team Providers Care Industrial Engineering Analyst Name Role Phone Salina Doherty MD Unavailable [phone] Carrillo Ware APRN DIRECTOR OF PRIMARY Unavailable SolitarioAngelica golden NP Unavailable [phone] Nelson Arroyo PA-C Unavailable [phone] Nelson Arroyo PA-C Primary Care Provider Chinyere Barbour Unavailable Unavailable Nelson Arroyo PA-C Unavailable Pietro Wills MD Unavailable Tank Bucio MD Unavailable [phone] Reason for Visit * Reason Comments Medication Refill Encounter Details Date Type Department Care Team (Late st Contact Info) Description 04/21/[address], [address] [place] [address] [place] [address] [place] [address] Medication Refill Social History Tobacco [...] PM CDT 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:44 AM 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 When she was in for appointment in Feb we discussed that she needs to come back in to complete PAP part of physical that we did not do. Please remind her of this. HER GOODS SALES REPRESENTATIVE * Telephone Encounter - Lexi Reina RN - 04/21/2019 4:50 PM CST Last Written Prescription Date: 03.31.19 Last Fill Quantity: 20, # refills: 0 Last office visit: 02/04/2019 with prescribing provider: Dandy Future Office Visit: Requested Prescriptions Pending Prescriptions Disp Refills clonazePAM (KLONOPIN) 0.5 MG tablet [Pharmacy Med Name: CLONAZEPAM 0.5 MG TABLET] 20 tablet 0 Sig: TAKE ONE TABLET BY MOUTH ONCE DAILY IF NEEDED FOR ANXIETY There is no refill protocol information for this order Routing refill request to provider for review/approval because: Drug not on the [facility] [place] HER GOODS SALES REPRESENTATIVE documented in this encounter Plan of Treatment Not on file documented as of this encounter Visit Diagnoses Diagnosis Generalized anxiety disorder documented in this encounter Additional Health Concerns Assessment Noted Time PHQ-9 Depression Total Score: 10 019 2:36 PM CDT documented as of this encounter Care Teams Industrial Engineering Analyst Relationship Specialty Start Date End Date Nelson Arroyo PA-C [address] [place] [address] PCP - General Physician Operations Research Scientist - Medical 08/06/18 Salina Doherty MD Internal Medicine 12/01/14 Carrillo Ware APRN DIRECTOR OF PRIMARY [address] [place] [address] Nurse Practitioner Nurse Practitioner 12/16/14 Angelica Jerez NP [facility] [address] [place] [address] Nurse Practitioner Nurse Practitioner - Family 07/12/16 Nelson Arroyo PA-C [address] [place] [address] Assigned PCP 07/05/18 07/29/20 Chinyere Barbour Personal Advocate & Liaison (PAL) 01/31/20 04/26/20 Nelson Arroyo PA-C [address] [place] [address] Assigned PCP 07/30/20 Pietro Wills MD [address] [place] [address] Assigned Heart and Vascular Provider 12/14/22 Tank Bucio MD [address] [address] Physician pigment weigher 12/01/23 documented as of this encounter
--- OUTSIDE RECORDS SUMMARY | 2024-06-02 16:59 | XMS_ITS | Encounter Summary ---
Author Organization [facility] Address [address] [place] [address]. [place] [address] Care Team Providers Care Brush Finisher Name Role Phone Salina Doherty MD Unavailable [phone] Carrillo Ware APRN LOGGING SPECIALIST Unavailable SolitarioAngelica golden NP Unavailable [phone] Nelson Arroyo PA-C Primary Care Provider Nelson Arroyo PA-C Unavailable [phone] Pietro Wills MD Unavailable [phone] Tank Bucio MD Unavailable Reason for Visit * Reason Onset Date Comments Refill Request 12/10/2021 Encounter Details Date Type Department Care Team (Late st Contact Info) Description 12/10/2021 MyC Refill [facility] [address] [place] [address] Nelson Arroyo PA-C [address] [place] [address] Refill Request Social History Tobacco [...] PM CDT 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:44 AM ASSOCIATE CONSULTING ENGINEER Gender Identity Female 10/03/2020 8:33 PM CDT Sexual Orientation Straight 07/01/2018 3: 40 PM ASSOCIATE CONSULTING ENGINEER documented as of this encounter Plan of Treatment Not on file documented as of this encounter Visit Diagnoses Diagnosis Generalized anxiety disorder documented in this encounter Additional Health Concerns Assessment Noted Time PHQ-9 Depression Total Score: 7 10/23/19 22 11:44 AM CDT documented as of this encounter Care Teams Brush Finisher Relationship Specialty Start Date End Date Nelson Arroyo PA-C [address] [place] [address] PCP - General Physician Field Service Manager - Medical 08/06/18 Salina Doherty MD Internal Medicine 12/01/14 Carrillo Ware APRN LOGGING SPECIALIST [address] [place] [id number] Nurse Practitioner Nurse Practitioner 12/16/14 Angelica Jerez NP [place] [address] [place], [place] 868[address] Nurse Practitioner Nurse Practitioner - Family 07/12/16 Nelson Arroyo PA-C [address] [address] Assigned PCP 07/30/20 Pietro Wills MD [address] [id number] Assigned Heart and Vascular Provider 12/14/22 Tank Bucio MD [address] [address] Physician electric power machine operator 12/01/23 documented as of this encounter
--- OUTSIDE RECORDS SUMMARY | 2024-06-02 16:59 | XMS_ITS | Encounter Summary ---
Author Organization [facility] Address [address] [place] [address]. [place] [address] Care Team Providers Care Compensator Name Role Phone Salina Doherty MD Unavailable [phone] Carrillo Ware APRN DISPUTE SPECIALIST Unavailable SolitarioAngelica golden NP Unavailable [phone] Nelson Arroyo PA-C Unavailable [phone] Nelson Arroyo PA-C Primary Care Provider Chinyere Barbour Unavailable Unavailable Nelson Arroyo PA-C Unavailable Pietro Wills MD Unavailable [phone] Tank Bucio MD Unavailable Reason for Visit * Reason Onset Date Comments MyChart Communication 12/16/2018 Encounter Details Date Type Department Care Team (Late st Contact Info) Description 12/16/2018 MyC Medical Advice [facility] [address] [facility], [address] [place] [address] Nelson Arroyo PA-C [address] [place] [address] MyChart Communication Social History Tobacco [...] PM CDT 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:44 AM TEAM LEAD Gender Identity Female 10/03/2020 8:33 PM CDT Sexual Orientation Straight 07/01/2018 3: 40 PM TEAM LEAD documented as of this encounter Miscellaneous Notes * Telephone Encounter - Susanne Zacarias RN - 12/16/2018 4:15 PM CDT Spoke with [facility]. They did receive the prescriptions, however there is an issue with insurance covering them. The Pt may have to pay for them out of pocket. Pharmacy will call insurance company and call the Pt back directly. I informed the Pt of this via message below. Susanne Zacarias RN -- [facility] Workforce documented in this encounter Plan of Treatment Not on file documented as of this encounter Visit Diagnoses Not on filedocumented in this encounter Additional Health Concerns Assessment Noted Time PHQ-9 Depression Total Score: 7 10/23/19 19 11:12 AM CDT documented as of this encounter Care Teams Compensator Relationship Specialty Start Date End Date Nelson Arroyo PA-C [address] [place] [address] PCP - General Physician Processor Helper - Medical 08/06/18 Salnia Doherty MD Internal Medicine 12/01/14 Carrillo Ware APRN CNP [address] [place] [address] Nurse Practitioner Nurse Practitioner 12/16/14 Angelica Jerez NP [facility] [address] [place] [address] Nurse Practitioner Nurse Practitioner - Family 07/12/16 Nelson Arrooy PA-C [address] [place] [address] Assigned PCP 07/05/18 07/29/20 Chinyere Barbour Personal Advocate & Liaison (PAL) 01/31/20 04/26/20 Nelson Arroyo PA-C [address] [address] Assigned PCP 07/30/20 Pietro Wlils MD [address] [place] [address] Assigned Heart and Vascular Provider 12/14/22 Tank Bucio MD [address], [facility] 100 [place] [address] Physician financial reporting manager 12/01/23 documented as of this encounter
--- OUTSIDE RECORDS SUMMARY | 2024-06-02 16:59 | XMS_ITS | Encounter Summary ---
Author Organization [facility] Address [address] [place] [address]. [place] [address] Care Team Providers Care Business Loan Processor Name Role Phone Salina Doherty MD Unavailable [phone] Carrillo Ware APRN SERVICES PROGRAM MANAGER Unavailable SolitarioAngelica golden NP Unavailable Nelson Arroyo PA-C Unavailable Nelson Arroyo PA-C Primary Care Provider Chinyere Barbour Unavailable Unavailable Nelson Arroyo PA-C Unavailable Pietro Wills MD Unavailable [phone] Tank Bucio MD Unavailable [phone] Reason for Visit * Reason Onset Date Comments Refill Request 04/04/2019 Zanaflex, Trazod one, Elavil Encounter Details Date Type Department Care Team (Late st Contact Info) Description 04/04/2019 MyC Refill [address], [address] [place] [address] Nelson Arroyo PA-C [address] [place] [address] Refill Request (Zanaflex, Trazodone, Elavil) Social History Tobacco Use Types Packs/Day Years [...] PM CDT 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 Gender Identity Female 10/03/2020 8:33 PM CDT Sexual Orientation Straight 07/01/2018 3: 40 PM COFFEE FARMER documented as of this encounter Miscellaneous Notes * Telephone Encounter - Maude Singh RN - 04/05/2019 8:16 AM CST Sravanthit message from patient: Hi, Just wanted to let you know I had to ask for refills on those Rx's because my new pharmacy doesn't have them on file to refill and I'm due for some of them Zanaflex 4mg Last Written Prescription Date: 02/04/2019 Last Fill Quantity: 120, # refills: 2 (SENT TO [facility]) Last Office Visit: 02/04/2019 Future Office visit: Next 5 appointments (look out 90 days) Apr 14, 2019 3:40 PM COFFEE FARMER Galina Tavarez with Nelson Arroyo PA-C [facility] [address] [place] [address], [facility] 100 [facility] [address] Routing refill request to provider for review/approval because: Drug not on the [facility], [facility] or Health refill protocol or controlled substance. Trazodone 50mg Last Written Prescription Date: 02/04/2019 Last Fill Quantity: 30, # refills: 1 Elavil 10mg Last Written Prescription Date: 03/02/2019 Last Fill Quantity: 30, # refills: 1 Last office visit: 02/04/2019 with prescribing provider: Future Office Visit: Next 5 appointments (look out 90 days) Apr 14, 2019 3:40 PM ANDREA Tavarez with Nelson Arroyo PA-C [facility] [address] [place] [address], [address] [address] Requested Prescriptions Pending Prescriptions Disp Refills ??? tiZANidine (ZANAFLEX) 4 MG tablet 120 tablet 2 Sig: Take 1 tablet (4 mg) by mouth 4 times daily There is no refill protocol information for this order ??? traZODone (DESYREL) 50 MG tablet 30 tablet 1 Sig: Take 1 tablet (50 mg) by mouth At Bedtime Serotonin Modulators Passed - 04/04/2019 2:03 PM Passed - Recent (12 mo) or future (30 days) visit within the authorizing provider's specialty Patient has had an office visit with the authorizing provider or a provider within the authorizing providers department within the previous 12 mos or has a future within next 30 days. See Patient Info tab in inbasket, or Choose Columns in Meds & Orders section of the refill encounter. Passed - Medication is active on med list Passed - Patient is age 18 or older Passed - No active on record Passed - No positive test in past 12 months ??? amitriptyline (ELAVIL) 10 MG tablet 30 tablet 1 Sig: Take 1 tablet (10 mg) by mouth Tricyclic Agents ( Annual appt and no PHQ9) Passed - 04/04/2019 2:03 PM Passed - Blood Pressure under 140/90 in past 12 mos BP Readings from Last 3 Encounters: 02/04/19 112/70 08/06/18 108/66 06/29/18 112/76 Passed - Recent (12 mo) or future (30 days) visit within authorizing provider's specialty Patient has had an office visit with the authorizing provider or a provider within the authorizing providers department within the previous 12 mos or has a future within next 30 days. See Patient Info tab in inbasket, or Choose Columns in Meds & Orders section of the refill encounter. Passed - Medication is active on med list Passed - Patient is age 18 or older Passed - Patient is not Passed - No positive test on record in past 12 mos [address] [facility] Refill Protocol. Maude Singh RN EE FARMER documented in this encounter Plan of Treatment Not on file documented as of this encounter Visit Diagnoses Diagnosis Muscle spasm Spasm of muscle Cervicalgia Persistent insomnia Persistent disorder of initiating or maintaining sleep documented in this encounter Additional Health Concerns Assessment Noted Time PHQ-9 Depression Total Score: 10 019 2:36 PM CDT documented as of this encounter Care Teams Business Loan Processor Relationship Specialty Start Date End Date Nelson Arroyo PA-C [address] [place] [address] PCP - General Physician Kitchen Bath Designer - Medical 08/06/18 Salina Doherty MD Internal Medicine 12/01/14 Carrillo Ware APRN SERVICES PROGRAM MANAGER [address] [place] [id number] Nurse Practitioner Nurse Practitioner 12/16/14 Angelica Jerez NP [address] [address] Nurse Practitioner Nurse Practitioner - Family 07/12/16 Nelson Arroyo PA-C [address] [address] Assigned PCP 07/05/18 07/29/20 Chinyere Barbour Personal Advocate & Liaison (PAL) 01/31/20 04/26/20 eNlson Arroyo PA-C [address] [place] [address] Assigned PCP 07/30/20 Pietro Wills MD [address] [place] [address] Assigned Heart and Vascular Provider 12/14/22 Tank Bucio MD [address], [address] [address] Physician tube dispatcher 12/01/23 documented as of this encounter
--- OUTSIDE RECORDS SUMMARY | 2024-06-02 16:59 | XMS_ITS | Encounter Summary ---
Author Organization [facility] Address [address] [place] [address]. [place] [address] Care Team Providers Care Compressor Station Chief Engineer Name Role Phone Salina Doherty MD Unavailable [phone] Carrillo Ware APRN INJECTION MOLDING MACHINE SETTER Unavailable SolitarioAngelica golden NP Unavailable [phone] Nelson Arroyo PA-C Unavailable Nelson Arroyo PA-C Primary Care Provider Chinyere Barbour Unavailable Unavailable Nelson Arroyo PA-C Unavailable Pietro Wills MD Unavailable Tank Bucio MD Unavailable [phone] Reason for Visit * Reason Onset Date Comments Refill Request 04/05/2019 Encounter Details Date Type Department Care Team (Late st Contact Info) Description 04/05/2019 MyC Pietro [facility] [address] [facility], [address] [place] [address] Nelson Arroyo PA-C [address] [place] [address] Refill Request Social History Tobacco [...] PM CDT 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 Gender Identity Female 10/03/2020 8:33 PM CDT Sexual Orientation Straight 07/01/2018 3: 40 PM COAL HANDLER documented as of this encounter Plan of Treatment Not on file documented as of this encounter Visit Diagnoses Diagnosis Muscle spasm Spasm of muscle Cervicalgia documented in this encounter Additional Health Concerns Assessment Noted Time PHQ-9 Depression Total Score: 10 019 2:36 PM CDT documented as of this encounter Care Teams Compressor Station Chief Engineer Relationship Specialty Start Date End Date Nelson Arroyo PA-C [address] [place], [place] [id number] PCP - General Physician Road Oiling Truck Driver - Medical 08/06/18 Salina Doherty MD Internal Medicine 12/01/14 Carrillo Ware APRN INJECTION MOLDING MACHINE SETTER [address] [place] [address] Nurse Practitioner Nurse Practitioner 12/16/14 Angelica Jerez NP [place] [address] [place], [place] 38[address] Nurse Practitioner Nurse Practitioner - Family 07/12/16 Nelson Arroyo PA-C [address] [place] [address] Assigned PCP 07/05/18 07/29/20 Chinyere Barbour Personal Advocate & Liaison (PAL) 01/31/20 04/26/20 Nelson Arroyo PA-C [address] [place] [address] Assigned PCP 07/30/20 Pietro Wills MD [address] 949[address] Assigned Heart and Vascular Provider 12/14/22 Tank Bucio MD [address] [facility] 100 [place], [place] [address] Physician grease refiner operator 12/01/23 documented as of this encounter
--- OUTSIDE RECORDS SUMMARY | 2024-06-02 16:59 | XMS_ITS | Encounter Summary ---
Author Organization [facility] Address [address] [place] [address]. [place] [address] Care Team Providers Care Line Haul Truck Driver Name Role Phone Salina Doherty MD Unavailable Carrillo Ware APRN TAXI DRIVER Unavailable [phone] SolitarioAngelica golden NP Unavailable [phone] Nelson Arroyo PA-C Unavailable Nelson Arroyo PA-C Primary Care Provider Chinyere Barbour Unavailable Unavailable Nelson Arroyo PA-C Unavailable Pietro Wills MD Unavailable [phone] Tank Bucio MD Unavailable Reason for Visit * Reason Onset Date Comments Refill Request 12/18/2018 Encounter Details Date Type Department Care Team (Late st Contact Info) Description 12/18/2018 MyC Pietro [facility] Mental Health & Addiction [address] [place] [address] Nelson Arroyo PA-C [address] [place] [address] Refill Request Social History Tobacco [...] PM CDT 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:44 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 Gender Identity Female 10/03/2020 8:33 PM CDT Sexual Orientation Straight 07/01/2018 3: 40 PM BURNT LIME DRAWER documented as of this encounter Plan of Treatment Not on file documented as of this encounter 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), predominantly inattentive type documented in this encounter Additional Health Concerns Assessment Noted Time PHQ-9 Depression Total Score: 7 10/23/19 19 11:12 AM CDT documented as of this encounter Care Teams Line Haul Truck Driver Relationship Specialty Start Date End Date Nelson Arroyo PA-C [address] [place] [address] PCP - General Physician Film Library Clerk - Medical 08/06/18 Salina Doherty MD Internal Medicine 12/01/14 Carrillo Ware APRN TAXI DRIVER [address] [place] [address]8465 Nurse Practitioner Nurse Practitioner 12/16/14 Angelica Jerez NP [place] [address] [address] [place], [place] 46[address] Nurse Practitioner Nurse Practitioner - Family 07/12/16 Nelson Arroyo PA-C [address] [address] Assigned PCP 07/05/18 07/29/20 Chinyere Barbour Personal Advocate & Liaison (PAL) 01/31/20 04/26/20 Nelson Arroyo PA-C [address] [place] [address] Assigned PCP 07/30/20 Pietro Wills MD [address] [place] [address] Assigned Heart and Vascular Provider 12/14/22 Tank Bucio MD [address], [facility] 100 [place], [place] [address] Physician optical instrument inspector 12/01/23 documented as of this encounter
--- OUTSIDE RECORDS SUMMARY | 2024-06-02 16:59 | XMS_ITS | Encounter Summary ---
Author Organization [facility] Address [facility] [place] [address] Care Team Providers Care Refund Specialist Name Role Phone Salina Doherty MD Unavailable [phone] Carrillo Ware APRN LOADING INSPECTOR Unavailable SolitarioAngelica golden NP Unavailable [phone] Nelson Arroyo PA-C Primary Care Provider Nelson Arroyo PA-C Unavailable [phone] Pietro Wills MD Unavailable Tank Bucio MD Unavailable [phone] Encounter Details Date Type Department Care Team (Late st Contact Info) Description 11/22/2021 [facility] Medical [facility] Mental Health & Addiction Services [address] [address] [place] [id number] [place] Social History Tobacco Use Types Packs/Day Years [...] PM CDT 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:44 AM COMPUTERIZED MILL MILL 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 Gender Identity Female 10/03/2020 8:33 PM CDT Sexual Orientation Straight 07/01/2018 3: 40 PM COMPUTERIZED MILL MILL RECORDER documented as of this encounter Plan of Treatment Not on file documented as of this encounter Visit Diagnoses Not on filedocumented in this encounter Additional Health Concerns Assessment Noted Time PHQ-9 Depression Total Score: 7 10/23/19 22 11:44 AM CDT documented as of this encounter Care Teams Refund Specialist Relationship Specialty Start Date End Date Nelson Arroyo PA-C [address] [place] [address] PCP - General Physician Global Program Manager - Medical 08/06/18 Salina Doherty MD Internal Medicine 12/01/14 Carrillo Ware APRN LOADING INSPECTOR [address] [place] [address]155 Nurse Practitioner Nurse Practitioner 12/16/14 Angelica Jerez NP [facility] [address] [place], [place] [address] Nurse Practitioner Nurse Practitioner - Family 07/12/16 Nelson Arroyo PA-C [address] [place] [address] Assigned PCP 07/30/20 Pietro Wills MD [address] [place] [address] Assigned Heart and Vascular Provider 12/14/22 Tank Bucio MD [address] [address] Physician cryptozoologist 12/01/23 documented as of this encounter
--- OUTSIDE RECORDS SUMMARY | 2024-06-02 16:59 | XMS_ITS | Encounter Summary ---
Author Organization [facility] Address [address] [place] [address]. [place] [address] Care Team Providers Care Flux Plant Operator Name Role Phone Salina Doherty MD Unavailable [phone] Carrillo Ware APRN STATOR TESTER Unavailable SolitarioAngelica golden NP Unavailable [phone] Nelson Arroyo PA-C Unavailable Nelson Arroyo PA-C Primary Care Provider [phone] Chinyere Barbour Unavailable Unavailable Nelson Arroyo PA-C Unavailable Pietro Wills MD Unavailable Tank Bucio MD Unavailable Reason for Visit * Reason Onset Date Comments Symptoms 08/28/2018 Encounter Details Date Type Department Care Team (Late st Contact Info) Description 08/28/2018 [facility] Medical Advice [facility] [address] [place] [address], [address] [place] [address] Nelson Arroyo PA-C [address] [place] [address] Symptoms Social History Tobacco Use Types Packs/Day Years [...] PM CDT 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:44 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 Gender Identity Female 10/03/2020 8:33 PM CDT Sexual Orientation Straight 07/01/2018 3: 40 PM FRENCH POLISHER documented as of this encounter Plan of Treatment Not on file documented as of this encounter Visit Diagnoses Not on filedocumented in this encounter Additional Health Concerns Assessment Noted Time PHQ-9 Depression Total Score: 13 019 7:04 AM CDT documented as of this encounter Care Teams Flux Plant Operator Relationship Specialty Start Date End Date Nelson Arroyo PA-C [address] [place] [address] PCP - General Physician Sales Administration Manager - Medical 08/06/18 Salina Doherty MD Internal Medicine 12/01/14 Carrillo Ware APRN CNP [address] [place] [address] Nurse Practitioner Nurse Practitioner 12/16/14 Angelica Jerez NP [place] [address] [address] [place], [place] [phone] Nurse Practitioner Nurse Practitioner - Family 07/12/16 Nelson Arroyo PA-C [address] [place] [address] Assigned PCP 07/05/18 07/29/20 Chinyere Barbour Personal Advocate & Liaison (PAL) 01/31/20 04/26/20 Nelson Arroyo PA-C [address] [place] [address] Assigned PCP 07/30/20 Pietro Wills MD [address] [place] [address] Assigned Heart and Vascular Provider 12/14/22 Tank Bucio MD [address], [facility] 100 [place], [place] [address] Physician gun barrel finisher 12/01/23 documented as of this encounter
--- OUTSIDE RECORDS SUMMARY | 2024-06-02 16:59 | XMS_ITS | Encounter Summary ---
Author Organization [facility] Address [address] [place] [address]. [place] [address] Care Team Providers Care Medical Insurance Clerk Name Role Phone Salina Doherty MD Unavailable [phone] Carrillo Ware APRN REPAIRER GENERAL Unavailable SolitarioAngelica golden NP Unavailable [phone] Nelson Arroyo PA-C Unavailable [phone] Nelson Arroyo PA-C Primary Care Provider [phone] Chinyere Barbour Unavailable Unavailable Nelson Arroyo PA-C Unavailable Pietro Wills MD Unavailable Tank Bucio MD Unavailable Reason for Visit * Reason Onset Date Comments Medication Refill 10/19/2018 clonazePAM (KL ONOPIN) 0.5 MG tablet Encounter Details Date Type Department Care Team (Late st Contact Info) Description 10/18/[address], [address] [place] [address] Nelson Arroyo PA-C [address] [place] [address] Medication Refill (clonazePAM (KLONOPIN) 0.5 MG tablet) Social History Tobacco Use Types Packs/Day Years [...] PM CDT 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:44 AM AUTO SELF SERVICE STATION ATTENDANT Gender Identity Female 10/03/2020 8:33 PM CDT Sexual Orientation Straight 07/01/2018 3: 40 PM AUTO SELF SERVICE STATION ATTENDANT documented as of this encounter Miscellaneous Notes * Telephone Encounter - Lexi Reina RN - 10/20/2018 3:38 PM CDT Routing refill request to provider for review/approval because: Drug not on the [facility] refill protocol Last fill 5.2.19 PARK LANDSCAPE ARCHITECT: 6.18.19 Last filled 5.3.19, [facility] providers had filled prior to August Annual Controlled substance agreement: 4.18.16 Annual drug screening: not on file Akilah Reina RN * Telephone Encounter - Paty Mike - 10/19/2018 9:13 AM CDT Controlled Substance Refill Request for clonazePAM (KLONOPIN) 0.5 MG tablet Problem List Complete: No PROVIDER TO CONSIDER COMPLETION OF PROBLEM LIST AND OVERVIEW/CONTROLLED SUBSTANCE AGREEMENT Last Written Prescription Date: 09/03/18 Last Fill Quantity: 30, # refills: 0 THE MOST RECENT OFFICE VISIT MUST BE WITHIN THE PAST 3 MONTHS. AT LEAST ONE FACE TO FACE VISIT MUSTOCCUR EVERY 6 MONTHS. ADDITIONAL VISITS CAN BE VIRTUAL. (THIS STATEMENT SHOULD BE DELETED.) Last Office Visit with [facility] primary care provider: 08/06/2018 Future Office visit: Controlled substance agreement: Encounter-Level [...] OXY13, PPX13, BUP13 Processing: Fax Rx to [facility] [email or web address] PARK LANDSCAPE ARCHITECT checked in past 3 months? No, route to RN 05/13/18 documented in this encounter Plan of Treatment Not on file documented as of this encounter Visit Diagnoses Diagnosis Generalized anxiety disorder documented in this encounter Additional Health Concerns Assessment Noted Time PHQ-9 Depression Total Score: 13 019 7:04 AM CDT documented as of this encounter Care Teams Medical Insurance Clerk Relationship Specialty Start Date End Date Nelson Arroyo PA-C [address] [place], [place] [id number] PCP - General Physician Air Pollution Inspector - Medical 08/06/18 Salina Doherty MD Internal Medicine 12/01/14 Carrillo Ware APRN REPAIRER GENERAL [address] [place] [address] Nurse Practitioner Nurse Practitioner 12/16/14 Angelica Jerez NP [address] [phone] Nurse Practitioner Nurse Practitioner - Family 07/12/16 Nelson Arroyo PA-C [address] [place] [address] Assigned PCP 07/05/18 07/29/20 Chinyere Barbour Personal Advocate & Liaison (PAL) 01/31/20 04/26/20 Nelson Arroyo PA-C [address] [place] [address] Assigned PCP 07/30/20 Pietro Wills MD [address] 687[address] Assigned Heart and Vascular Provider 12/14/22 Tank Bucio MD [address] [facility] 100 [place], [place] [address] Physician linux admin 12/01/23 documented as of this encounter
--- OUTSIDE RECORDS SUMMARY | 2024-06-02 16:59 | XMS_ITS | Encounter Summary ---
Author Organization [facility] [place] Address [address] [place] [address]. [place] [address] Care Team Providers Care Dictating Machine Transcriber Name Role Phone Salina Doherty MD Unavailable [phone] Carrillo Ware APRN KINDERGARTEN PARAPROFESSIONAL Unavailable SolitarioAngelica golden NP Unavailable [phone] Nelson Arroyo PA-C Unavailable Nelson Arroyo PA-C Primary Care Provider Chinyere Barbour Unavailable Unavailable Nelson Arroyo PA-C Unavailable Pietro Wills MD Unavailable [phone] Tank Bucio MD Unavailable Reason for Visit * Reason Onset Date Comments Medication Request 08/10/2018 Trazodone Medication Request 08/10/[address]th trazodone Encounter Details Date Type Department Care Team (Late st Contact Info) Description 08/10/2018 MyC Medical Advice [address], [address] [place] [address] Nelson Arroyo PA-C [address] [place] [address] Medication Request (Trazodone); Medication... Social History Tobacco Use Types Packs/Day Years [...] PM CDT 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:44 AM ORDAINED MINISTER Gender Identity Female 10/03/2020 8:33 PM CDT Sexual Orientation Straight 07/01/2018 3: 40 PM ORDAINED MINISTER documented as of this encounter Miscellaneous Notes * Telephone Encounter - Nelson Arroyo PA-C - 08/12/2018 12:53 PM CDT I am ok with sending in the Trazodone for her. I do have concerns over increasing the Tizanidine. She asked about this in another encounter previous to this one. She has so many sedating medications that increasing her use of this one would not be a good idea in my mind. In fact in my note I recommended decreasing the use of it! Maybe we could try Robaxin which would be better to use during the day. If this neck pain is causing her to miss school and work she should either be in physical therapy or be seeing Pain Management. So- I will send in Trazodone. I say no to increase in Tizanidine. Options: 1. Robaxin 2. Physical therapy/Pain Management. Nelson Corrales documented in this encounter Plan of Treatment Not on file documented as of this encounter Visit Diagnoses Diagnosis Persistent insomnia- Primary Persistent disorder of initiating or maintaining sleep documented in this encounter Additional Health Concerns Assessment Noted Time PHQ-9 Depression Total Score: 13 019 7:04 AM CDT documented as of this encounter Care Teams Dictating Machine Transcriber Relationship Specialty Start Date End Date Nelson Arroyo PA-C [address] [place] [address] PCP - General Physician Predatory Animal Hunter - Medical 08/06/18 Salina Doherty MD Internal Medicine 12/01/14 Carrillo Ware APRN KINDERGARTEN PARAPROFESSIONAL [address] [place] [address] 644935 Nurse Practitioner Nurse Practitioner 12/16/14 Angelica Jerez DOORPERSON OR [facility] [address] [place], [place] [id number] Nurse Practitioner Nurse Practitioner - Family 07/12/16 Nelson Arroyo PA-C [address] [place] [address] Assigned PCP 07/05/18 07/29/20 Chinyere Barbour Personal Advocate & Liaison (PAL) 01/31/20 04/26/20 Nelson Arroyo PA-C [address] [place] [address] Assigned PCP 07/30/20 Pietro Wills MD [address] [place] [address] Assigned Heart and Vascular Provider 12/14/22 Tank Bucio MD [address], [address] 770927 Physician prick stitcher 12/01/23 documented as of this encounter
--- OUTSIDE RECORDS SUMMARY | 2024-06-02 16:59 | XMS_ITS | Encounter Summary ---
Author Organization [facility] Address [address] [place] [address]. [place] [address] Care Team Providers Care Recorder Helper Seismograph Name Role Phone Salina Doherty MD Unavailable [phone] Carrillo Ware APRN WINDOWS SECURITY ENGINEER Unavailable SolitarioAngelica golden NP Unavailable [phone] Nelson Arroyo PA-C Unavailable Nelson Arroyo PA-C Primary Care Provider [phone] Chinyere Barbour Unavailable Unavailable Nelson Arroyo PA-C Unavailable [phone] Pietro Wills MD Unavailable Tank Bucio MD Unavailable Reason for Visit * Reason Onset Date Comments Refill Request 06/03/2019 Buspar Encounter Details Date Type Department Care Team (Late st Contact Info) Description 06/03/2019 MyC Refill [facility] [address] [facility], [address] [place] [address] [place] [address] [place] [address] Refill Request (Buspar) Social History Tobacco Use Types Packs/Day Years [...] PM CDT 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:44 AM ABATEMENT WORKER Gender Identity Female 10/03/2020 8:33 PM CDT Sexual Orientation Straight 07/01/2018 3: 40 PM ABATEMENT WORKER documented as of this encounter Miscellaneous Notes * Telephone Encounter - Maude Singh RN - 06/03/2019 3:33 PM CST Duplicate EMENT WORKER documented in this encounter Plan of Treatment Not on file documented as of this encounter Visit Diagnoses Diagnosis Generalized anxiety disorder documented in this encounter Additional Health Concerns Assessment Noted Time PHQ-9 Depression Total Score: 10 019 2:36 PM CDT documented as of this encounter Care Teams Recorder Helper Seismograph Relationship Specialty Start Date End Date Nelson Arroyo PA-C [address] [facility] [place] [address] PCP - General Physician Social Service Liaison - Medical 08/06/18 Salina Doherty MD Internal Medicine 12/01/14 Carrillo Ware APRN WINDOWS SECURITY ENGINEER [address] [place] [address] Nurse Practitioner Nurse Practitioner 12/16/14 Angelica Jerez NP [address] 970677 Nurse Practitioner Nurse Practitioner - Family 07/12/16 Nelson Arroyo PA-C [address] [place] [address] Assigned PCP 07/05/18 07/29/20 Chinyere Barbour Personal Advocate & Liaison (PAL) 01/31/20 04/26/20 Nelson Arroyo PA-C [address] [place] [address] Assigned PCP 07/30/20 Pietro Wills MD [address] [place] 657175 Assigned Heart and Vascular Provider 12/14/22 Tank Bucio MD [address] [facility] [address] [place] [address] Physician meter and regulator shop supervisor 12/01/23 documented as of this encounter
--- OUTSIDE RECORDS SUMMARY | 2024-06-02 17:00 | XMS_ITS | Encounter Summary ---
Author Organization [facility] Address [address] [place] [address] Care Team Providers Care Diamond Wheel Edger Name Role Phone Salina Doherty MD Unavailable [phone] Carrillo Ware APRN CUSTOMER LIAISON Unavailable Hillary [place] MD Primary Care P rovider [facility] NP Unavailable [phone] Nelson Arroyo PA-C Unavailable [phone] Hillary Unger MD Unavailable Hillary Unger MD Unavailable Hillary [place] MD Unavailable Nelson Arroyo PA-C Unavailable [phone] Nelson Arroyo PA-C Primary Care Provider Chinyere Barbour Unavailable Unavailable Nelson Arroyo PA-C Unavailable [phone] Pietro Wills MD Unavailable [phone] Tank Bucio MD Unavailable [phone] Reason for Visit * Reason Onset Date Comments Refill Request 08/26/2017 Retin-A 0.05% cr eam Encounter Details Date Type Department Care Team (Late st Contact Info) Description 08/26/2017 MyC Refill [place] [id number] [facility], [address] [place] [address] Nelson Arroyo PA-C [address] [place] [address] Refill Request (Retin-A 0.05% cream) Social History Tobacco Use Types Packs/Day Years [...] PM CDT 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:44 AM ENERGY RATER Gender Identity Female 10/03/2020 8:33 PM CDT Sexual Orientation Straight 07/01/2018 3: 40 PM ENERGY RATER documented as of this encounter Miscellaneous Notes * Telephone Encounter - Maude Singh RN - 08/27/2017 3:16 PM CDT Medication is being filled for 1 time refill only due to: Patient needs to be seen because it has been more than one year since last visit. Letter sent to patient. Maude Singh RN * Telephone Encounter - Paty Mike - 08/27/2017 1:14 PM CDT Requested Prescriptions Pending Prescriptions Disp Refills ??? tretinoin (RETIN-A) 0.05 % cream 45 g 11 Last Written Prescription Date: 04/26/15 Last Fill Quantity: 45g , # refills: 11 Last Office Visit: 09/03/2016 Future Office Visit: Next 5 appointments (look out 90 days) Aug 28, 2017 3:45 PM CDT Return Visit with Angelica Jerez NP [facility] [address] [place] [address] [address] [facility] [address] Sig: Spread a pea size amount into affected area topically at bedtime. Use sunscreen SPF>20. Topical Acne Medications Protocol Passed 08/26/2017 5:23 PM Passed - Patient is 12 years of age or older Passed - Recent (12 mo) or future (30 days) visit within the authorizing provider's specialty Patient had office visit in the last 12 months or has a visit in the next 30 days with authorizing provider or within the authorizing provider's specialty. See Patient Info tab in inbasket, or Choose Columns in Meds & Orders section of the refill encounter. * Telephone Encounter - Maude Singh RN - 08/26/2017 5:23 PM CDTMessage from [facility]: Original authorizing provider: RO Choudhury would like a refill of the following medications: tretinoin (RETIN-A) 0.05 % cream [Nelson Arroyo PA-C] Preferred pharmacy: [facility] - [address] Comment: documented in this encounter Plan of Treatment Not on file documented as of this encounter Visit Diagnoses Diagnosis Acne, unspecified acne type documented in this encounter Additional Health Concerns Assessment Noted Time PHQ-9 Depression Total Score: 4 04/04/20 17 7:13 AM ENERGY RATER documented as of this encounter Care Teams Diamond Wheel Edger Relationship Specialty Start Date End Date Hillary [place] [address] PCP - General Internal Medicine 08/21/15 08/05/18 Nelson Arroyo PA-C [address] [facility] [place] [address] PCP - Assigned PCP 04/12/18 05/02/18 Hillary Unger MD [address] [place] [address] PCP - Assigned PCP 02/01/18 04/11/18 Hillary Unger MD [address] [place] [address] PCP - Assigned PCP 05/03/18 07/07/18 Nelson Arroyo PA-C [address] [place] [id number] PCP - General Physician Latex Foam Worker - Medical 08/06/18 Salina Doherty MD Internal Medicine 12/01/14 Carrillo Ware APRN CUSTOMER LIAISON [address] [place] [address] Nurse Practitioner Nurse Practitioner 12/16/[address] [facility] [address] [place] [address] Nurse Practitioner Nurse Practitioner - Family 07/12/16 Hillary [place] MD [address] [place] [address] Assigned PCP 05/03/18 07/18/18 Nelson Arroyo PA-C [address] [place] [address] Assigned PCP 07/05/18 07/29/20 Chinyere Barbour Personal Advocate & Liaison (PAL) 01/31/20 04/26/20 Nelson Arroyo PA-C [address] [place] [address] Assigned PCP 07/30/20 Pietro Wills MD [address] 311785 Assigned Heart and Vascular Provider 12/14/22 Tank Bucio MD [address] [facility] [address] [place] [address] Physician gas collection system operator 12/01/23 documented as of this encounter
--- OUTSIDE RECORDS SUMMARY | 2024-06-02 17:00 | XMS_ITS | Encounter Summary ---
Author Organization [facility] Address [address] [place] [address] Care Team Providers Care Doll Wig Maker Name Role Phone Salina Doherty MD Unavailable [phone] Carrillo Ware APRN AUTOMOTIVE GLASS TECHNICIAN Unavailable [phone] Hillary [place] MD Primary Care P rovider [facility] NP Unavailable [phone] Nelson Arroyo PA-C Unavailable [phone] Hillary [place] MD Unavailable Hillary Unger MD Unavailable Hillary Unger MD Unavailable Nelson Arroyo PA-C Unavailable [phone] Nelson Arroyo PA-C Primary Care Provider Chinyere Barbour Unavailable Unavailable Nelson Arroyo PA-C Unavailable [phone] Pietro Wills MD Unavailable [phone] Tank Bucio MD Unavailable [phone] Reason for Visit * Reason Onset Date Comments Refill Request 08/27/2017 tretinoin (RETIN -A) 0.05 % cream Encounter Details Date Type Department Care Team (Late st Contact Info) Description 08/27/[address] [facility], [address] [place] [address] Nelson Arroyo PA-C [address] [place] [address] Refill Request (tretinoin (RETIN-A) 0.05 %... Social History Tobacco Use Types Packs/Day Years [...] PM CDT 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:44 AM SNACK BAR COOK Gender Identity Female 10/03/2020 8:33 PM CDT Sexual Orientation Straight 07/01/2018 3: 40 PM SNACK BAR COOK documented as of this encounter Miscellaneous Notes * Telephone Encounter - Maude Singh RN - 08/28/2017 2:44 PM CDT Duplicate. Maude Singh RN * Telephone Encounter - Paty Mike - 08/28/2017 8:14 AM CDT Requested Prescriptions Pending Prescriptions Disp Refills ??? tretinoin (RETIN-A) 0.05 % cream 45 g 11 Last Written Prescription Date: 08/27/17 Last Fill Quantity: 45g , # refills: 0 Last Office Visit: 09/03/2016 Future Office Visit: Next 5 appointments (look out 90 days) Aug 28, 2017 3:45 PM CDT Return Visit with Angelica Jerez NP [facility]) [address] [place] [address] [address] [facility] [address] Sig: Spread a pea size amount into affected area topically at bedtime. Use sunscreen SPF>20. Topical Acne Medications Protocol Passed 08/27/2017 3:14 PM Passed - Patient is 11 years [...] the refill encounter. * Telephone Encounter - Lexi Reina RN - 08/27/2017 3:13 PM CDTMessage from [facility]: Original authorizing provider: RO Choudhury would like a refill of the following medications: tretinoin (RETIN-A) 0.05 % cream [Nelson Arroyo PA-C] Preferred pharmacy: [facility] - [address] Comment: documented in this encounter Plan of Treatment Not on file documented as of this encounter Visit Diagnoses Diagnosis Acne, unspecified acne type documented in this encounter Additional Health Concerns Assessment Noted Time PHQ-9 Depression Total Score: 4 04/04/20 17 7:13 AM SNACK BAR COOK documented as of this encounter Care Teams Doll Wig Maker Relationship Specialty Start Date End Date Hillary [place] MD [address] [place], [place] [address] PCP - General Internal Medicine 08/21/15 08/05/18 Nelson Arroyo PA-C [address] [place] [address] PCP - Assigned PCP 04/12/18 05/02/18 Hillary Unger MD [address] [place], [place] [address] PCP - Assigned PCP 02/01/18 04/11/18 Hillary Unger MD [address] [place] [address] PCP - Assigned PCP 05/03/18 07/07/18 Nelson Arroyo PA-C [address] [place] [address] PCP - General Physician Metal Stud Framer - Medical 08/06/18 Salina Doherty MD Internal Medicine 12/01/14 Carrillo Ware APRN AUTOMOTIVE GLASS TECHNICIAN [address] [place] [address] 951565 Nurse Practitioner Nurse Practitioner 12/16/14 Angelica Jerez NP [facility] [address] [place], [place] [address] Nurse Practitioner Nurse Practitioner - Family 07/12/16 Hillary [place] MD [address] [place] [address] Assigned PCP 05/03/18 07/18/18 Nelson Arroyo PA-C [address] [address] Assigned PCP 07/05/18 07/29/20 Chinyere Barbour Personal Advocate & Liaison (PAL) 01/31/20 04/26/20 Nelson Arroyo PA-C [address] [place] [address] Assigned PCP 07/30/20 Pietro Wills MD [address] [place] [address] Assigned Heart and Vascular Provider 12/14/22 Tank Bucio MD [address] [facility] [address] [place] [address] Physician collection coordinator 12/01/23 documented as of this encounter
--- OUTSIDE RECORDS SUMMARY | 2024-06-02 17:00 | XMS_ITS | Encounter Summary ---
Author Organization [facility] Address [address] [place] [address]. [place] [address] Care Team Providers Care Retread Mold Operator Name Role Phone Salina Doherty MD Unavailable [phone] Carrillo Waer APRN SUMMER CLERK Unavailable [phone] SolitarioAngelica golden NP Unavailable [phone] Nelson Arroyo PA-C Unavailable Nelson Arroyo PA-C Primary Care Provider Chinyere Barbour Unavailable Unavailable Nelson Arroyo PA-C Unavailable [phone] Pietro Wills MD Unavailable Tank Bucio MD Unavailable Encounter Details Date Type Department Care Team (Late st Contact Info) Description 12/27/2018 MyC Medical Advice [facility] [address] [place] [address], [address] [place] [address] Nelson Arroyo PA-C [address] [place] [address] Social History Tobacco Use Types [...] PM CDT 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:44 AM ASSEMBLER BODY Gender Identity Female 10/03/2020 8:33 PM CDT Sexual Orientation Straight 07/01/2018 3: 40 PM ASSEMBLER BODY documented as of this encounter Plan of Treatment Not on file documented as of this encounter Visit Diagnoses Not on filedocumented in this encounter Additional Health Concerns Assessment Noted Time PHQ-9 Depression Total Score: 7 10/23/19 19 11:12 AM CDT documented as of this encounter Care Teams Retread Mold Operator Relationship Specialty Start Date End Date Nelson Arroyo PA-C [address] [place] [address] PCP - General Physician Element Setter - Medical 08/06/18 Salina Doherty MD Internal Medicine 12/01/14 Carrillo Waer APRN CNP [address] [place] [address] Nurse Practitioner Nurse Practitioner 12/16/14 Angelica Jerez NP [address] 927[address] Nurse Practitioner Nurse Practitioner - Family 07/12/16 Nelson Arroyo PA-[place] [address] [place] [address] Assigned PCP 07/05/18 07/29/20 Chinyere Barbour Personal Advocate & Liaison (PAL) 01/31/20 04/26/20 Nelson Arroyo PA-C [address] [place] [address] Assigned PCP 07/30/20 Pietro Wills MD [address] [place] [address] Assigned Heart and Vascular Provider 12/14/22 Tank Bucio MD [address] [facility], [address] [address] Physician cdl company flatbed driver 12/01/23 documented as of this encounter
--- OUTSIDE RECORDS SUMMARY | 2024-06-02 17:00 | XMS_ITS | Encounter Summary ---
Author Organization [facility] [facility] Address [address] [place] [address] Care Team Providers Care Radio Television Announcer Name Role Phone Salina Doherty MD Unavailable [phone] Carrillo Ware APRN SYSTEMS SPEC Unavailable Hillary [place] MD Primary Care P rovider [facility] NP Unavailable [phone] Nelson Arroyo PA-C Unavailable [phone] Hillary Unger MD Unavailable Hillary Unger MD Unavailable Hillary Unger MD Unavailable Nelson Arroyo PA-C Unavailable [phone] Nelson Arroyo PA-C Primary Care Provider Chinyere Barbour Unavailable Unavailable Nelson Arroyo PA-C Unavailable [phone] Pietro Wills MD Unavailable [phone] Tank Bucio MD Unavailable [phone] Reason for Visit * Reason Onset Date Comments Refill Request 12/31/2017 tizanidine Encounter Details Date Type Department Care Team (Late st Contact Info) Description 12/31/2017 [facility] [place] [address] [place] [address] Hillary Unger MD [address] [place] [address] Refill Request (tizanidine) Social History Tobacco Use Types Packs/Day Years [...] PM CDT 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:44 AM STATION AGENT Gender Identity Female 10/03/2020 8:33 PM CDT Sexual Orientation Straight 07/01/2018 3: 40 PM STATION AGENT documented as of this encounter Plan of Treatment Not on file documented as of this encounter Visit Diagnoses Diagnosis Muscle spasm Spasm of muscle Cervicalgia documented in this encounter Additional Health Concerns Assessment Noted Time PHQ-9 Depression Total Score: 6 08/30/19 18 7:34 AM CDT documented as of this encounter Care Teams Radio Television Announcer Relationship Specialty Start Date End Date Hillary Unger MD [address] [place] [address] PCP - General Internal Medicine 08/21/15 08/05/18 Nelson Arroyo PA-C [address] [place] [address] PCP - Assigned PCP 04/12/18 05/02/18 Hillary Unger MD [address] [place] [address] PCP - Assigned PCP 02/01/18 04/11/18 Hillary Unger MD [address] [place] [address] PCP - Assigned PCP 05/03/18 07/07/18 Nelson Arroyo PA-C [address] [address] PCP - General Physician Furniture Finisher Apprentice - Medical 08/06/18 Salina Doherty MD Internal Medicine 12/01/14 Carrillo Ware APRN SYSTEMS SPEC [address] [place] [address] 857675 Nurse Practitioner Nurse Practitioner 12/16/14 Angelica Jerez NP [facility] [address] [place] [address] Nurse Practitioner Nurse Practitioner - Family 07/12/16 Hillary Unger MD [address] [facility] [place] [address] Assigned PCP 05/03/18 07/18/18 Nelson Arroyo PA-C [address] [address] Assigned PCP 07/05/18 07/29/20 Chinyere Barbour Personal Advocate & Liaison (PAL) 01/31/20 04/26/20 Nelson Arroyo PA-C [address] [address] Assigned PCP 07/30/20 Pietro Wills MD [address] [place] [address] Assigned Heart and Vascular Provider 12/14/22 Tank Bucio MD [address] [address] Physician knife edger 12/01/23 documented as of this encounter
--- OUTSIDE RECORDS SUMMARY | 2024-06-02 17:00 | XMS_ITS | Encounter Summary ---
Author Organization [facility] Address [address] [place] [address] Care Team Providers Care Community Liaison Officer Name Role Phone Salina Doherty MD Unavailable [phone] Carrillo Ware APRN INTAKE CLINICIAN Unavailable Hillary Un[place] MD Primary Care P rovider [facility] NP Unavailable [phone] Nelson Arroyo PA-C Unavailable Hillary Unger MD Unavailable Hillary Unger MD Unavailable Hillary Unger MD Unavailable Nelson Arroyo PA-C Unavailable [phone] Nelson Arroyo PA-C Primary Care Provider Chinyere Barbour Unavailable Unavailable Nelson Arroyo PA-C Unavailable [phone] Pietro Wills MD Unavailable [phone] Tank Bucio MD Unavailable [phone] Encounter Details Date Type Department Care Team (Late st Contact Info) Description 10/01/2017 [facility]ice [facility] [address] [place] [address] Solitario Angelica Gautam, RENTAL COUNTER CLERK [address] [place] [address] Social History Tobacco Use Types Packs/Day Years [...] CDT 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:44 AM DIRECTOR OF ALUMNI RELATIONS Gender Identity Female 10/03/2020 8:33 PM CDT Sexual Orientation Straight 07/01/2018 3: 40 PM DIRECTOR OF ALUMNI RELATIONS documented as of this encounter Plan of Treatment Not on file documented as of this encounter Visit Diagnoses Not on filedocumented in this encounter Additional Health Concerns Assessment Noted Time PHQ-9 Depression Total Score: 6 08/30/19 18 7:34 AM CDT documented as of this encounter Care Teams Community Liaison Officer Relationship Specialty Start Date End Date Hillary Un[place] MD [address] [place] [address] PCP - General Internal Medicine 08/21/15 08/05/18 Nelson Arroyo PA-C [address] [place] [address] PCP - Assigned PCP 04/12/18 05/02/18 Hillary Unger MD [address] [place] [address] PCP - Assigned PCP 02/01/18 04/11/18 Hillary Unger MD [address] [place] [address] PCP - Assigned PCP 05/03/18 07/07/18 Nelson Arroyo PA-C [address] [place] [address] PCP - General Physician Senior Gl Accountant - Medical 08/06/18 Salina Dohetry MD Internal Medicine 12/01/14 Carrillo Ware APRN INTAKE CLINICIAN [address] [place] [address] Nurse Practitioner Nurse Practitioner 12/16/14 Angelica Jerez RENTAL COUNTER CLERK [facility] [address] [place], [place] [address] Nurse Practitioner Nurse Practitioner - Family 07/12/16 Hillary [place] MD [address] [place] [address] Assigned PCP 05/03/18 07/18/18 Nelson Arroyo PA-C [address] [place] [address] Assigned PCP 07/05/18 07/29/20 Chinyere Barbour Personal Advocate & Liaison (PAL) 01/31/20 04/26/20 Nelson Arroyo PA-C [address] [place] [address] Assigned PCP 07/30/20 Pietro Wills MD [address] [place] [address] Assigned Heart and Vascular Provider 12/14/22 Tank Bucio MD [address], [address] [place] [address] Physician critical care cns 12/01/23 documented as of this encounter
--- OUTSIDE RECORDS SUMMARY | 2024-06-02 17:00 | XMS_ITS | Encounter Summary ---
Author Organization [place] Address [address] [place] [address] Care Team Providers Care Document Review Attorney Name Role Phone Salina Doherty MD Unavailable [phone] Carrillo Ware APRN RIPRAP WORKER Unavailable Hillary Unger MD Primary Care P rovider Nelson Arroyo PA-C Primary Care Provider +[phone] Hillray Unger MD Primary Care P rovider Angelica Jerez NP Unavailable [phone] Nelson Arroyo PA-C Unavailable [phone] Hillary Unger MD Unavailable Hillary Unger MD Unavailable Hillary Unger MD Unavailable Nelson Arroyo PA-C Unavailable [phone] Nelson Arroyo PA-C Primary Care Provider +[phone]- Chinyere Barbour Unavailable Unavailable Nelson Arroyo PA-C Unavailable [phone] Pietro Wills MD Unavailable [phone] Tank Bucio MD Unavailable + [phone] Reason for Visit * Reason Onset Date Comments MyChart Communication 06/22/2015 Emergency Contraceptive Pill Questions Encounter Details Date Type Department Care Team (Late st Contact Info) Description 06/22/2015 MyC Medical Advice [address], [address] [place] [id number] Nelson Arroyo PA-C [address] [place] [address] MyChart Communication (Emergency Contracep... Social History Tobacco Use Types Packs/Day Years [...] PM CDT 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:44 AM TWISTER OPERATOR Gender Identity Female 10/03/2020 8:33 PM CDT Sexual Orientation Straight 07/01/2018 3: 40 PM TWISTER OPERATOR documented as of this encounter Miscellaneous Notes * Telephone Encounter - Juana See RN - 06/22/2015 1:07 PM CST Nelson, will you please advise? I had sent the pt information yesterday via [employer] regarding thesesame questions and emergency contraceptive information and it was read. I think she wants your advice. Kesha See, RN, BSN TER OPERATOR documented in this encounter Plan of Treatment Not on file documented as of this encounter Visit Diagnoses Not on filedocumented in this encounter Care Teams Document Review Attorney Relationship Specialty Start Date End Date Hillary Unger MD [address] [place] [address] PCP - General Internal Medicine 01/05/15 08/02/15 Nelson Arroyo PA-C [address] [place] [address] PCP - General Physician Lubrication Servicer - Medical 08/03/15 08/20/15 Hillary Unger MD [address] [place] [address] PCP - General Internal Medicine 08/21/15 08/05/18 Nelson Arroyo PA-[place] [address] [place] [address] PCP - Assigned PCP 04/12/18 05/02/18 Hillary Unger MD [address] [place] [address] PCP - Assigned PCP 02/01/18 04/11/18 Hillary nUger MD [address] [place] [address] PCP - Assigned PCP 05/03/18 07/07/18 Nelson Arroyo PA-C [address] [place] [address] PCP - General Physician Lubrication Servicer - Medical 08/06/18 Salina Doherty MD Internal Medicine 12/01/14 Carrillo Ware APRN RIPRAP WORKER [address] [place] [address] Nurse Practitioner Nurse Practitioner 12/16/14 Angelica Jerez NP [facility] [address] [place] [address] Nurse Practitioner Nurse Practitioner - Family 07/12/16 Hillary Unger MD [address] [place] [address] Assigned PCP 05/03/18 07/18/18 Nelson Arroyo [place] [address] [place] [address] Assigned PCP 07/05/18 07/29/20 Chinyere Barbour Personal Advocate & Liaison (PAL) 01/31/20 04/26/20 Nelson Arroyo PA-C [address] [place] [address] Assigned PCP 07/30/20 Pietro Wills MD [address] [place] [address] Assigned Heart and Vascular Provider 12/14/22 Tank Bucio MD [address], [address] [address] Physician resident care provider 12/01/23 documented as of this encounter
--- OUTSIDE RECORDS SUMMARY | 2024-06-02 17:00 | XMS_ITS | Encounter Summary ---
Author Organization [place] Address [address] [place] [address] Care Team Providers Care Cold Rolling Coordinator Name Role Phone Salina Doherty MD Unavailable [phone] Carrillo Ware APRN DECONTAMINATION WORKER Unavailable Hillary Unger MD Primary Care P rovider [facility] NP Unavailable [phone] Nelson Arroyo PA-C Unavailable Hillary Unger MD Unavailable Hillary Unger MD Unavailable Hillary Unger MD Unavailable Nelson Arroyo PA-C Unavailable [phone] Nelson Arroyo PA-C Primary Care Provider [phone] Chinyere Barbour Unavailable Unavailable Nelson Arroyo PA-C Unavailable [phone] Pietro Wills MD Unavailable [phone] Tank Bucio MD Unavailable Encounter Details Date Type Department Care Team (Late st Contact Info) Description 02/24/2018 [facility] Medical [address] [place] [address] Shira Chow, SKIP HOIST OPERATOR Social History Tobacco Use Types Packs/Day Years [...] PM CDT 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:44 AM SALT GRINDER Gender Identity Female 10/03/2020 8:33 PM CDT Sexual Orientation Straight 07/01/2018 3: 40 PM SALT GRINDER documented as of this encounter Plan of Treatment Not on file documented as of this encounter Visit Diagnoses Not on filedocumented in this encounter Additional Health Concerns Assessment Noted Time PHQ-9 Depression Total Score: 6 08/30/19 18 7:34 AM CDT documented as of this encounter Care Teams Cold Rolling Coordinator Relationship Specialty Start Date End Date Hillary Unger MD [address] [place] [address] PCP - General Internal Medicine 08/21/15 08/05/18 Nelson Arroyo PA-C [address] [place] [address] PCP - Assigned PCP 04/12/18 05/02/18 Hillary Unger MD [address] [place] [address] PCP - Assigned PCP 02/01/18 04/11/18 Hillary Unger MD [address] [place] [address] PCP - Assigned PCP 05/03/18 07/07/18 Nelson Arroyo PA-C [address] [place] [address] PCP - General Physician Operations Support Representative - Medical 08/06/18 Salina Doherty MD Internal Medicine 12/01/14 Carrillo Ware APRN DECONTAMINATION WORKER [address] [place] [address] Nurse Practitioner Nurse Practitioner 12/16/14 Angelica Jerez NAIL EXPERT [facility] [address] [place] [address] Nurse Practitioner Nurse Practitioner - Family 07/12/16 Hillary Unger MD [address] [place], [place] 840[address] Assigned PCP 05/03/18 07/18/18 Nelson Arroyo PA-C [address] [place] [address] Assigned PCP 07/05/18 07/29/20 Chinyere Barbour Personal Advocate & Liaison (PAL) 01/31/20 04/26/20 Nelson Arroyo PA-C [address] [address] Assigned PCP 07/30/20 Pietro Wills MD [address] 241705 Assigned Heart and Vascular Provider 12/14/22 Tank Bucio MD [address] [address] Physician it field technician 12/01/23 documented as of this encounter
--- OUTSIDE RECORDS SUMMARY | 2024-06-02 17:00 | XMS_ITS | Encounter Summary ---
Author Organization [place] Address [address] [place] [address] Care Team Providers Care Textile Slitting Machine Operator Name Role Phone Salina Doherty MD Unavailable [phone] Carrillo Ware APRN WIRE WRAPPING MACHINE OPERATOR Unavailable Hillary Unger MD Primary Care P rovider Nelson Arroyo PA-C Primary Care Provider +[phone]- Hillary Unger MD Primary Care P rovider Angelica Jerez NP Unavailable [phone] Nelson Arroyo PA-C Unavailable [phone] Hillary Unger MD Unavailable Hillary Unger MD Unavailable Hillary Unger MD Unavailable Nelson Arroyo PA-C Unavailable [phone] Nelson Arroyo PA-C Primary Care Provider +1- Chinyere Barbour Unavailable Unavailable Nelson Arroyo PA-C Unavailable [phone] Pietro Wills MD Unavailable [phone] Tank Bucio MD Unavailable + [phone] Reason for Visit * Reason Onset Date Comments Refill Request 07/31/2015 Seroquel 25mg Encounter Details Date Type Department Care Team (Late st Contact Info) Description 07/31/2015 MyC Refill [address], [address] [place] [address] Nelson Arroyo PA-C [address] [place] [address] Refill Request (Seroquel 25mg) Social History Tobacco Use Types Packs/Day Years [...] PM CDT 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:44 AM DOCTOR OF PODIATRY Gender Identity Female 10/03/2020 8:33 PM CDT Sexual Orientation Straight 07/01/2018 3: 40 PM DOCTOR OF PODIATRY documented as of this encounter Miscellaneous Notes * Telephone Encounter - Maude Singh RN - 08/01/2015 10:35 AM CDT Last rx for Seroquel was written 07/11/2015 #30 with 1 refill and sent to pharmacy. Patient should have 1 refill remaining. Maude Singh RN * Telephone Encounter - Maude Singh RN - 08/01/2015 10:29 AM CDTMessage from [email or web address]: Original authorizing provider: RO Choudhury would like a refill of the following medications: QUEtiapine (SEROQUEL) 25 MG tablet [Nelson Arroyo PA-C] Preferred pharmacy: [facility] [address] [place] [address] ROGELIO HERNANDEZ Comment: Medication renewals requested in this message routed to other providers: amphetamine-dextroamphetamine (ADDERALL XR) 30 MG per capsule [Hillary Unger MD] amphetamine-dextroamphetamine (ADDERALL) 10 MG tablet [Hillary Dumas MD] LORazepam (ATIVAN) 0.5 MG tablet [Hillary Unger MD] documented in this encounter Plan of Treatment Not on file documented as of this encounter Visit Diagnoses Diagnosis Major depressive disorder, recurrent episode, moderate documented in this encounter Additional Health Concerns Assessment Noted Time PHQ-9 Depression Total Score: 6 06/28/19 16 8:10 AM DOCTOR OF PODIATRY documented as of this encounter Care Teams Textile Slitting Machine Operator Relationship Specialty Start Date End Date Hillary Unger MD [address] [place] [address] PCP - General Internal Medicine 01/05/15 08/02/15 Nelson Arroyo PA-C [address] [place] [address] PCP - General Physician Baggage [place] - Medical 08/03/15 08/20/15 Hillary Unger MD [address] [place] [address] PCP - General Internal Medicine 08/21/15 08/05/18 Nelson Arroyo PA-C [address] [address] PCP - Assigned PCP 04/12/18 05/02/18 Hillary Unger MD [address] [place] [address] PCP - Assigned PCP 02/01/18 04/11/18 Hillary Unger MD [address] [place], [place] 3257[address] PCP - Assigned PCP 05/03/18 07/07/18 Nelson Arroyo PA-C [address] [place] [address] PCP - General Physician Baggage [place] - Medical 08/06/18 Salina Doherty MD Internal Medicine 12/01/14 Carrillo Ware APRN WIRE WRAPPING MACHINE OPERATOR [address] [place] [address] Nurse Practitioner Nurse Practitioner 12/16/14 Angelica Jerez NP [facility] [address] [place], [place] [id number] Nurse Practitioner Nurse Practitioner - Family 07/12/16 Hillary Unger MD [address] [place] [address] Assigned PCP 05/03/18 07/18/18 Nelson Arroyo PA-C [address] [address] Assigned PCP 07/05/18 07/29/20 Chinyere Barbour Personal Advocate & Liaison (PAL) 01/31/20 04/26/20 Nelson Arroyo PA-C [address] [place] [address] Assigned PCP 07/30/20 Pietro Wills MD [address] [place] [address] Assigned Heart and Vascular Provider 12/14/22 Tank Bucio MD [address] [facility], [address] [address] Physician pattern carrier 12/01/23 documented as of this encounter
--- OUTSIDE RECORDS SUMMARY | 2024-06-02 17:00 | XMS_ITS | Encounter Summary ---
Author Organization [place] Address [address] [place] [address]. [place] [address] Care Team Providers Care Experimental Psychologist Name Role Phone Salina Doherty MD Unavailable [phone] Carrillo Ware APRN ASSAYER Unavailable SolitarioAngelica golden NP Unavailable [phone] Nelson Arroyo PA-C Unavailable [phone] Nelson Arroyo PA-C Primary Care Provider Chinyere Barbour Unavailable Unavailable Nelson Arroyo PA-C Unavailable [phone] Pietro Wills MD Unavailable Tank Bucio MD Unavailable Reason for Visit * Reason Onset Date Comments Medication Refill 06/17/2019 Seroquel 300mg Encounter Details Date Type Department Care Team (Late st Contact Info) Description 06/14/2019 Refill [facility] [address] [facility], [address] [place] [address] [place] [address] [place] [address] Medication Refill (Seroquel 300mg) Social History Tobacco Use Types Packs/Day Years [...] PM CDT 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:44 AM FORK OPERATOR Gender Identity Female 10/03/2020 8:33 PM CDT Sexual Orientation Straight 07/01/2018 3: 40 PM FORK OPERATOR documented as of this encounter Miscellaneous Notes * Telephone Encounter - Maude Singh RN - 06/17/2019 1:36 PM CST Routing refill request to provider for review/approval because: Labs not current: Needs yearly Lipid, CBC and A1c. Maude Singh RN Seroquel 300mg Last Written Prescription Date: 03/31/2019 Last Fill Quantity: 30, # refills: 2 Last office visit: 02/04/2019 with prescribing provider: Future Office Visit: Next 5 appointments (look out 90 days) Jun 30, 2019 3:00 PM FORK OPERATOR Galina Bellamy with Nelson Arroyo PA-C [facility] [address] [place] [address], [address] [address] Requested Prescriptions Pending Prescriptions Disp Refills ??? QUEtiapine (SEROQUEL) 300 MG tablet [Pharmacy Med Name: QUETIAPINE FUMARATE 300 MG TAB] 30 tablet 2 Sig: TAKE 1 TABLET BY MOUTH EVERYDAY AT BEDTIME Antipsychotic Medications Failed - 06/14/2019 10:02 AM Failed - Lipid panel on file within the past 12 months Recent Labs Lab Test 07/07/17 0728 CHOL 186 TRIG 146 HDL 47* LDL 110* NHDL 139* Failed - CBC on file in past 12 months Recent Labs Lab Test 05/15/18 1533 WBC 9.9 RBC 5.11 HGB 14.1 HCT 42.8 PLT 394 Failed - A1c or Glucose on file in past 12 months Recent Labs Lab Test 05/15/18 1533 GLC 106* Please review patients last 3 weights. If a weight gain of >10 lbs exists, you may refill the prescription once after instructing the patient to schedule an appointment within the next 30 days. Wt Readings from Last 3 Encounters: 02/04/19 102.1 kg (225 lb) 08/06/18 102.5 kg (226 lb) 06/22/18 105.8 kg (233 lb 4.8 oz) Passed - Blood pressure under 140/90 in past 12 months BP Readings from Last 3 Encounters: 02/04/19 112/70 08/06/18 108/66 06/29/18 112/76 Passed - Patient is 12 years of age or older Passed - Heart Rate on file within past 12 months Pulse Readings from Last 3 Encounters: 02/04/19 80 08/06/18 96 06/29/18 80 Passed - Medication is active on med [...] & Orders section of the refill encounter. OPERATOR documented in this encounter Plan of Treatment Not on file documented as of this encounter Visit Diagnoses Diagnosis Generalized anxiety disorder Major depressive disorder, recurrent episode, moderate (H) Major depressive disorder, recurrent episode, moderate documented in this encounter Additional Health Concerns Assessment Noted Time PHQ-9 Depression Total Score: 10 019 2:36 PM CDT documented as of this encounter Care Teams Experimental Psychologist Relationship Specialty Start Date End Date Nelson Arroyo PA-C [address] [place] [address] PCP - General Physician [employer] - Medical 08/06/18 Salina Doherty MD Internal Medicine 12/01/14 Carrillo Ware APRN ASSAYER [address] [place] [address] Nurse Practitioner Nurse Practitioner 12/16/14 Angelica Jerez NP [facility] [address] [place] [address] Nurse Practitioner Nurse Practitioner - Family 07/12/16 Nelson Arroyo PA-C [address] [place] [address] Assigned PCP 07/05/18 07/29/20 Chinyere Barbour Personal Advocate & Liaison (PAL) 01/31/20 04/26/20 Nelson Arroyo PA-C [address] [place] [address] Assigned PCP 07/30/20 Pietro Wills MD [address] [place] [address] Assigned Heart and Vascular Provider 12/14/22 Tank Bucio MD [address] [facility] [address] [place] [address] Physician field cane scaler 12/01/23 documented as of this encounter
--- OUTSIDE RECORDS SUMMARY | 2024-06-02 17:00 | XMS_ITS | Encounter Summary ---
Author Organization [place] Address [address] [place] [address] Care Team Providers Care Hand Splitter Name Role Phone Salina Doherty MD Unavailable [phone] Carrillo Ware APRN PROCESS ANALYST Unavailable [phone] Hillary Unger MD Primary Care P rovider [facility] NP Unavailable [phone] Nelson Arroyo PA-C Unavailable [phone] Hillary Unger MD Unavailable Hillary Unger MD Unavailable Hillary Unger MD Unavailable Nelson Arroyo PA-C Unavailable [phone] Nelson Arroyo PA-C Primary Care Provider [phone] Chinyere Barbour Unavailable Unavailable Nelson Aroryo PA-C Unavailable [phone] Pietro Wills MD Unavailable [phone] Tank Bucio MD Unavailable + [phone] Reason for Referral * Nutrition - Closed Specialty Diagnoses / Procedures Referred By Contandrew t Referred To Contact Diagnoses Overweight Nelson Arroyo PA-C Phone: tel: fax: Referral ID Status Reason Start Date Expiration Date Visits Re quested Visits Authorized [id number] Closed 08/24/2015 08/23/2016 1 1 Question Answer Nutritional instruct Weight Loss - Overweight/Obesity Comments Your provider has referred you to: [facility]: [facility] [email or web address] Please be aware that coverage of these services is subject to the terms and limitations of your health insurance plan. Call member services at your health plan with any benefit or coverage questions. Please bring the following with you to your appointment: (1) This referral request (2) Any documents given to you regarding this referral (3) Any specific questions you have about diet and/or food choices Reason for Visit * Reason Onset Date Comments Nutrition Counseling 08/23/2015 Appetite Encounter Details Date Type Department Care Team (Late st Contact Info) Description 08/23/2015 MyC Medical Advice [address], [address] [place] [address] Nelson Arroyo PA-C [address] [place] [address] Nutrition Counseling (Appetite) Social History Tobacco Use Types Packs/Day Years [...] PM CDT 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:44 AM SERVICE CAPTAIN Gender Identity Female 10/03/2020 8:33 PM CDT Sexual Orientation Straight 07/01/2018 3: 40 PM SERVICE CAPTAIN documented as of this encounter Plan of Treatment Scheduled Referrals Name Type Priority Associated Diagnoses Orde r Schedule NUTRITION REFERRAL Referral Routine Overweight Ordered: 08/24/2015 documented as of this encounter Visit Diagnoses Diagnosis Overweight- Primary documented in this encounter Additional Health Concerns Assessment Noted Time PHQ-9 Depression Total Score: 6 06/28/19 16 8:10 AM SERVICE CAPTAIN documented as of this encounter Care Teams Hand Splitter Relationship Specialty Start Date End Date Hillary Unger MD [address] [place] [address] PCP - General Internal Medicine 08/21/15 08/05/18 Nelson Arroyo PA-C [address] [place] [address] PCP - Assigned PCP 04/12/18 05/02/18 Hillary Unger MD [address] [place] [address] PCP - Assigned PCP 02/01/18 04/11/18 Hillary Unger MD [address] [facility] [place] [address] PCP - Assigned PCP 05/03/18 07/07/18 Nelson Arroyo PA-C [address] [place] [address] PCP - General Physician Ruffling Machine Operator - Medical 08/06/18 Salina Doherty MD Internal Medicine 12/01/14 Carrillo Ware APRN CNP [address] [place] [address] Nurse Practitioner Nurse Practitioner 12/16/14 Angelica Jerez MIXER AND SCALER [facility] [address] [place] [address] Nurse Practitioner Nurse Practitioner - Family 07/12/16 Hillary Unger MD [address] [place] [address] Assigned PCP 05/03/18 07/18/18 Nelson Arroyo PA-C [address] [place] [address] Assigned PCP 07/05/18 07/29/20 Chinyere Barbour Personal Advocate & Liaison (PAL) 01/31/20 04/26/20 Nelson Arroyo PA-C [address] [place] [address] Assigned PCP 07/30/20 Pietro Wills MD [address] [place] [address] Assigned Heart and Vascular Provider 12/14/22 Tank Bucio MD [address], [facility] [address] [place] [address] Physician airborne electronics analyst 12/01/23 documented as of this encounter
--- OUTSIDE RECORDS SUMMARY | 2024-06-02 17:00 | XMS_ITS | Encounter Summary ---
Author Organization [place] Address [address] [place] [address] Care Team Providers Care Blindstitch Hemmer Name Role Phone Salina Doherty MD Unavailable [phone] Carrillo Ware APRN REMOTE SENSING ENGINEER Unavailable Hillary Unger MD Primary Care P rovider [facility] Health[facility]ica NP Unavailable [phone] Nelson Arroyo PA-C Unavailable [phone] Hillary Unger MD Unavailable Hillary Unger MD Unavailable Hillary Unger MD Unavailable Nelson Arroyo PA-C Unavailable [phone] Nelson Arroyo PA-C Primary Care Provider Chinyere Barbour Unavailable Unavailable Nelson Arroyo PA-C Unavailable [phone] Pietro Wills MD Unavailable [phone] Tank Bucio MD Unavailable [phone] Reason for Visit * Reason Onset Date Comments Refill Request 02/24/2018 Encounter Details Date Type Department Care Team (Late st Contact Info) Description 02/24/2018 [facility] Medical [address] [place] [address] Hillary Unger MD [address] [place] [address] Refill Request Social History Tobacco Use Types [...] PM CDT 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:44 AM HEALTH CARE LEGAL ASSISTANT Gender Identity Female 10/03/2020 8:33 PM CDT Sexual Orientation Straight 07/01/2018 3: 40 PM HEALTH CARE LEGAL ASSISTANT documented as of this encounter Miscellaneous Notes * Telephone Encounter - Shira Chow CMA - 02/24/2018 6:07 PM CDT Pt wondering if Dr. Tran would be willing to refill her medications until she is able to come infor an appointment? Was told that Angelica Jerez had released all of her patients back to their PCP's, so she is unable to get refills through her. Per pt's previous Dockert message, she has been having trouble with her insurance and plans to comein for an appointment when this gets reinstated. Message sent to pt asking which medications specifically she needs to have refilled right now. PHQ9 sent to pt in separate message (I was unable to attach it to this message). documented in this encounter Plan of Treatment Not on file documented as of this encounter Visit Diagnoses Not on filedocumented in this encounter Additional Health Concerns Assessment Noted Time PHQ-9 Depression Total Score: 6 08/30/19 18 7:34 AM CDT documented as of this encounter Care Teams Blindstitch Hemmer Relationship Specialty Start Date End Date Hillary Unger MD [address] [place] [address] PCP - General Internal Medicine 08/21/15 08/05/18 Nelson Arroyo PA-C [address] [place] [address] PCP - Assigned PCP 04/12/18 05/02/18 Hillary Unger MD [address] [place] [address] PCP - Assigned PCP 02/01/18 04/11/18 Hillary Unger MD [address] [place] [address] PCP - Assigned PCP 05/03/18 07/07/18 Nelson Arroyo PA-C [address] [place] [address] PCP - General Physician Health Care Legal Assistant - Medical 08/06/18 Salina Doherty MD Internal Medicine 12/01/14 Carrillo Ware APRN REMOTE SENSING ENGINEER [address] [place] [address] Nurse Practitioner Nurse Practitioner 12/16/14 Angelica Jerez NP [facility] [address] [place] [address] Nurse Practitioner Nurse Practitioner - Family 07/12/16 Hillary Unger, MD [address] [place] [address] Assigned PCP 05/03/18 07/18/18 Nelson Arroyo PA-C [address] [place] [address] Assigned PCP 07/05/18 07/29/20 Chinyere Barbour Personal Advocate & Liaison (PAL) 01/31/20 04/26/20 Nelson Arroyo PA-C [address] [address] Assigned PCP 07/30/20 Pietro Wills MD [address] [place] [address] Assigned Heart and Vascular Provider 12/14/22 Tank Bucio MD [address], [address] [address] Physician pneumatic system conveyor operator 12/01/23 documented as of this encounter
--- OUTSIDE RECORDS SUMMARY | 2024-06-02 17:00 | XMS_ITS | Encounter Summary ---
Author Organization [place] Address [address] [place] [address] Care Team Providers Care Railroad Car Letterer Name Role Phone Salina Doherty MD Unavailable [phone] Carrillo Ware APRN BONE CHAR OPERATOR Unavailable Hillary Unger MD Primary Care P rovider [facility] NP Unavailable [phone] Nelson Arroyo PA-C Unavailable [phone] Hillary Unger MD Unavailable Hillary Unger MD Unavailable Hillary Unger MD Unavailable Nelson Arroyo PA-C Unavailable [phone] Nelson Arroyo PA-C Primary Care Provider Chinyere Barbour Unavailable Unavailable Nelson Arroyo PA-C Unavailable [phone] Pietro Wills MD Unavailable [phone] Tank Bucio MD Unavailable [phone] Reason for Visit * Reason Onset Date Comments Refill Request 08/26/2017 Encounter Details Date Type Department Care Team (Late st Contact Info) Description 08/26/[address], [address] [place] [phone] Nelson Arroyo PA-C [address] [place] [address] Refill Request Social History Tobacco Use Types [...] PM CDT 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:44 AM APPLIANCE WORKER Gender Identity Female 10/03/2020 8:33 PM CDT Sexual Orientation Straight 07/01/2018 3: 40 PM APPLIANCE WORKER documented as of this encounter Plan of Treatment Not on file documented as of this encounter Visit Diagnoses Diagnosis Acne, unspecified acne type documented in this encounter Additional Health Concerns Assessment Noted Time PHQ-9 Depression Total Score: 4 04/04/20 17 7:13 AM APPLIANCE WORKER documented as of this encounter Care Teams Railroad Car Letterer Relationship Specialty Start Date End Date Hillary Unger MD [address] [place] [address] PCP - General Internal Medicine 08/21/15 08/05/18 Nelson Arroyo PA-C [address] [place] [address] PCP - Assigned PCP 04/12/18 05/02/18 Hillary Unger MD [address] [place] [address] PCP - Assigned PCP 02/01/18 04/11/18 Hillary Unger MD [address] [place] [address] PCP - Assigned PCP 05/03/18 07/07/18 Nelson Arroyo PA-C [address] [place] [place] [address] PCP - General Physician Galley Worker - Medical 08/06/18 Salina Doherty MD Internal Medicine 12/01/14 Carrillo Ware APRN BONE CHAR OPERATOR [address] [place] [address] Nurse Practitioner Nurse Practitioner 12/16/14 Angelica Jerez NP [facility] [address] [place] [address] Nurse Practitioner Nurse Practitioner - Family 07/12/16 Hillary Unger MD [address] [place] [address] Assigned PCP 05/03/18 07/18/18 Nelson Arroyo PA-C [address] [place] [address] Assigned PCP 07/05/18 07/29/20 Chinyere Barbour Personal Advocate & Liaison (PAL) 01/31/20 04/26/20 Nelson Arroyo PA-C [address] [place] [address] Assigned PCP 07/30/20 Pietro Wills MD [address] [place] [address] Assigned Heart and Vascular Provider 12/14/22 Tank Bucio MD [address] [facility] [address] [place] [address] Physician financial economist 12/01/23 documented as of this encounter
--- OUTSIDE RECORDS SUMMARY | 2024-06-02 17:00 | XMS_ITS | Encounter Summary ---
Author Organization [place] Address [address] [place] [address] Care Team Providers Care Marketing Business Analyst Name Role Phone Salina Doherty MD Unavailable [phone] Carrillo Ware APRN FORENSIC ECONOMIST Unavailable Hillary Unger MD Primary Care P rovider [facility] NP Unavailable [phone] Nelson Arroyo PA-C Unavailable [phone] Hillary Unger MD Unavailable Hillary Unger MD Unavailable Hillary Unger MD Unavailable Nelson Arroyo PA-C Unavailable [phone] Nelson Arroyo PA-C Primary Care Provider Chinyere Barbour Unavailable Unavailable Nelson Arroyo PA-C Unavailable [phone] Pietro Wills MD Unavailable [phone] Tank Bucio MD Unavailable Reason for Visit * Reason Onset Date Comments Refill Request 10/25/2015 Seroquel 25mg Encounter Details Date Type Department Care Team (Late st Contact Info) Description 10/25/2015 MyC Refill [facility] [address], [address] [place] [phone] Nelson Arroyo PA-C [address] [place], [place] [id number] Refill Request (Seroquel 25mg) Social History Tobacco [...] PM CDT 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:44 AM EMS HELICOPTER PILOT Gender Identity Female 10/03/2020 8:33 PM CDT Sexual Orientation Straight 07/01/2018 3: 40 PM EMS HELICOPTER PILOT documented as of this encounter Miscellaneous Notes * Telephone Encounter - Maude Singh RN - 10/25/2015 4:20 PM CDT Seroquel 25mg Last Written Prescription Date: 09/26/2015 Last Fill Quantity: 60, # refills: 2 Last Office Visit with [facility], [facility] or [facility] prescribing provider: 09/18/2015 GLC 70 08/03/2015 BP Readings from Last 3 Encounters: 09/18/15 120/68 08/03/15 122/85 06/27/15 136/70 No results found for this basename: chol No results found for this basename: hdl No results found for this basename: ldl No results found for this basename: trig No results found for this basename: cholhdlratio Patient has refills. Maude Singh RN * Telephone Encounter - Maude Singh RN - 10/25/2015 4:19 PM [facility] Original authorizing provider: RO Choudhury would like a refill of the following medications: QUEtiapine (SEROQUEL) 25 MG tablet [Nelson Arroyo PA-C] Preferred pharmacy: [address] Comment: Medication renewals requested in this message routed to other providers: etonogestrel-ethinyl estradiol (NUVARING) 0.12-0.015 MG/24HR vaginal ring [Hillary Unger MD] ALPRAZolam (XANAX) 0.25 MG tablet [Hillary Unger MD] documented in this encounter Plan of Treatment Not on file documented as of this encounter Visit Diagnoses Diagnosis Major depressive disorder, recurrent episode, moderate documented in this encounter Additional Health Concerns Assessment Noted Time PHQ-9 Depression Total Score: 5 09/19/19 16 7:14 AM CDT documented as of this encounter Care Teams Marketing Business Analyst Relationship Specialty Start Date End Date Hillary Unger MD [address] [place] [address] PCP - General Internal Medicine 08/21/15 08/05/18 Nelson Arroyo PA-C [address] [place] [address] PCP - Assigned PCP 04/12/18 05/02/18 Hillary Unger MD [address] [place] [address] PCP - Assigned PCP 02/01/18 04/11/18 Hillary Unger MD [address] [place] [address] PCP - Assigned PCP 05/03/18 07/07/18 Nelson Arroyo PA-C [address] [place] [address] PCP - General Physician Joinery Machinist - Medical 08/06/18 Salina Doherty MD Internal Medicine 12/01/14 Carrillo Ware APRN FORENSIC ECONOMIST [address] [place] [address] Nurse Practitioner Nurse Practitioner 12/16/14 Angelica Jerez NP [facility] [address] [place], [place] [address] Nurse Practitioner Nurse Practitioner - Family 07/12/16 Hillary Unger MD [address] [place] [address] Assigned PCP 05/03/18 07/18/18 Nelson Arroyo PA-C [address] [place] [place] [address] Assigned PCP 07/05/18 07/29/20 Chinyere Barbour Personal Advocate & Liaison (PAL) 01/31/20 04/26/20 Nelson Arroyo PA-C [address] [place] [address] Assigned PCP 07/30/20 Pietro Wills MD [address] [place] [address] Assigned Heart and Vascular Provider 12/14/22 Tank Bucio MD [address] [address] Physician radio electronics officer 12/01/23 documented as of this encounter
--- OUTSIDE RECORDS SUMMARY | 2024-06-02 17:00 | XMS_ITS | Encounter Summary ---
Author Organization [place] Address [address] [place] [address] Care Team Providers Care Computer Forwarding System Markup Clerk Name Role Phone Salina Doherty MD Unavailable [phone] Carrillo Ware APRN A P SUPERVISOR Unavailable Hillary Unger MD Primary Care P rovider [facility] NP Unavailable [phone] Nelson Arroyo PA-C Unavailable [phone] Hillary Unger MD Unavailable Hillary Unger MD Unavailable Hillary Unger MD Unavailable Nelson Arroyo PA-C Unavailable [phone] Nelson Arroyo PA-C Primary Care Provider Chinyere Barbour Unavailable Unavailable Nelson Arroyo PA-C Unavailable [phone] Pietro Wills MD Unavailable [phone] Tank Bucio MD Unavailable [phone] Reason for Visit * Reason Onset Date Comments Refill Request 01/02/2018 Encounter Details Date Type Department Care Team (Late st Contact Info) Description 01/02/[address] [place] [address] Hillary Unger MD [address] [place], [place] [address] Refill Request Social History Tobacco Use Types [...] 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:44 AM DOCTOR OF NAPRAPATHIC MEDICINE Gender Identity Female 10/03/2020 8:33 PM CDT Sexual Orientation Straight 07/01/2018 3: 40 PM DOCTOR OF NAPRAPATHIC MEDICINE documented as of this encounter Plan of Treatment Not on file documented as of this encounter 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), predominantly inattentive type documented in this encounter Additional Health Concerns Assessment Noted Time PHQ-9 Depression Total Score: 6 08/30/19 18 7:34 AM CDT documented as of this encounter Care Teams Computer Forwarding System Markup Clerk Relationship Specialty Start Date End Date Hillary Unger MD [address] [place] [address] PCP - General Internal Medicine 08/21/15 08/05/18 Nelson Arroyo PA-C [address] [place] [address] PCP - Assigned PCP 04/12/18 05/02/18 Hillary Unger MD [address] [place] [address] PCP - Assigned PCP 02/01/18 04/11/18 Hillary Unger MD [address] [place] [address] PCP - Assigned PCP 05/03/18 07/07/18 Nelson Arroyo PA-C [address] [place] [address] PCP - General Physician Supply Chain Program Manager - Medical 08/06/18 Salina Doherty MD Internal Medicine 12/01/14 Carrillo Ware APRN A P SUPERVISOR [address] [place] [address] Nurse Practitioner Nurse Practitioner 12/16/14 Angelica Jerez NP [facility] [address] [place] [address] Nurse Practitioner Nurse Practitioner - Family 07/12/16 Hillary Unger MD [address] [place] [address] Assigned PCP 05/03/18 07/18/18 Nelson Arroyo PA-C [address] [place] [address] Assigned PCP 07/05/18 07/29/20 Chinyere Barbour Personal Advocate & Liaison (PAL) 01/31/20 04/26/20 Nelson Arroyo PA-C [address] [place] [address] Assigned PCP 07/30/20 Pietro Wills MD [address] [place] [address] Assigned Heart and Vascular Provider 12/14/22 Tank Bucio MD [address] [place] [address] [place] [address] Physician bending roll operator 12/01/23 documented as of this encounter
--- OUTSIDE RECORDS SUMMARY | 2024-06-02 17:00 | XMS_ITS | Encounter Summary ---
Author Organization [facility] Address [address] [place] [address] Care Team Providers Care Degreasing Solution Reclaimer Name Role Phone Salina Doherty MD Unavailable [phone] Carrillo Ware APRN PREPARATION CENTER COORDINATOR Unavailable Hillary Unger MD Primary Care P rovider SolitarioAngelica golden NP Unavailable [phone] Nelson Arroyo PA-C Unavailable Hillary Unger MD Unavailable Hillray Unger MD Unavailable Hillary Unger MD Unavailable Nelson Arroyo PA-C Unavailable [phone] Nelson Arroyo PA-C Primary Care Provider Chinyere Barbour Unavailable Unavailable Nelson Arroyo PA-C Unavailable [phone] Pietro Wills MD Unavailable [phone] Tank Bucio MD Unavailable [phone] Encounter Details Date Type Department Care Team (Late st Contact Info) Description 02/06/2018 [facility] [address] [place] [address] Jacquelyn Guillen LPN Social History Tobacco Use Types Packs/Day Years [...] PM CDT 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:44 AM FARM LOAN REPRESENTATIVE Gender Identity Female 10/03/2020 8:33 PM CDT Sexual Orientation Straight 07/01/2018 3: 40 PM FARM LOAN REPRESENTATIVE documented as of this encounter Plan of Treatment Not on file documented as of this encounter Visit Diagnoses Not on filedocumented in this encounter Additional Health Concerns Assessment Noted Time PHQ-9 Depression Total Score: 6 08/30/19 18 7:34 AM CDT documented as of this encounter Care Teams Degreasing Solution Reclaimer Relationship Specialty Start Date End Date Hillary Unger MD [address] [place] [address] PCP - General Internal Medicine 08/21/15 08/05/18 Nelson Arroyo PA-C [address] [place] [address] PCP - Assigned PCP 04/12/18 05/02/18 Hillary Unger MD [address] [place] [address] PCP - Assigned PCP 02/01/18 04/11/18 Hillary Unger MD [address] [place] [address] PCP - Assigned PCP 05/03/18 07/07/18 Nelson Arroyo PA-C [address] [place] [address] PCP - General Physician Advertising Material Distributor - Medical 08/06/18 Salina Doherty MD Internal Medicine 12/01/14 Carrillo Ware APRN PREPARATION CENTER COORDINATOR [address] [place] [address] Nurse Practitioner Nurse Practitioner 12/16/14 Angelica Jerez NP [facility] [address] [place] [address] Nurse Practitioner Nurse Practitioner - Family 07/12/16 Hillary Unger MD [address] [place], [place] 38[address] Assigned PCP 05/03/18 07/18/18 Nelson Arroyo PA-C [address] [place] [address] Assigned PCP 07/05/18 07/29/20 Chinyere Barbour Personal Advocate & Liaison (PAL) 01/31/20 04/26/20 Nelson Arroyo PA-C [address] [place] [address] Assigned PCP 07/30/20 Pietro Wills MD [address] [id number] Assigned Heart and Vascular Provider 12/14/22 Tank Bucio MD [address], [address] [address] Physician sprayer leather 12/01/23 documented as of this encounter
--- OUTSIDE RECORDS SUMMARY | 2024-06-02 17:00 | XMS_ITS | Encounter Summary ---
Author Organization [facility] Address [address] [place] [address] Care Team Providers Care Dielectric Press Operator Name Role Phone Salina Doherty MD Unavailable [phone] Carrillo Ware APRN CONTINUOUS IMPROVEMENT CONSULTANT Unavailable Hillary Unger MD Primary Care P rovider Nelson Arroyo PA-C Primary Care Provider [phone] Hillary Unger MD Primary Care P rovider Angelica Jerez NP Unavailable [phone] Nelson Arroyo PA-C Unavailable [phone] Hillary Unger MD Unavailable Hillary Unger MD Unavailable Hillary Unger MD Unavailable Nelson Arroyo PA-C Unavailable [phone] Nelson Arroyo PA-C Primary Care Provider [phone] Chinyere Barbour Unavailable Unavailable Nelson Arroyo PA-C Unavailable [phone] Pietro Wills MD Unavailable [phone] Tank Bucio MD Unavailable [phone] Reason for Visit * Reason Onset Date Comments MyChart Communication 06/21/2015 Emergency Contraceptive Encounter Details Date Type Department Care Team (Late st Contact Info) Description 06/21/2015 MyC Medical Advice [address], [address] [place] [address] Nelson Arroyo PA-C [address] [place] [address] MyChart Communication (Emergency Contracep... Social History Tobacco [...] PM CDT 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:44 AM IT DESKTOP SUPPORT SPECIALIST Gender Identity Female 10/03/2020 8:33 PM CDT Sexual Orientation Straight 07/01/2018 3: 40 PM IT DESKTOP SUPPORT SPECIALIST documented as of this encounter Miscellaneous Notes * Telephone Encounter - Juana See RN - 06/21/2015 8:10 AM CST Hi Twyla, There is an over the counter emergency contraceptive pill called Plan B available that you can turkey picker without a prescription. The sooner you take it to the time that you had unprotected sex the more effective it is. It is supposed to be taken the morning after unprotected sex, so I would check with a pharmacist to determine if you're in a time range that it would be effective. I will also route this message to Nelson for any additional information. Please let us know if you have any further questions. Kesha Tovar RN DESKTOP SUPPORT SPECIALIST documented in this encounter Plan of Treatment Not on file documented as of this encounter Visit Diagnoses Not on filedocumented in this encounter Care Teams Dielectric Press Operator Relationship Specialty Start Date End Date CriHillary Juan MD [address] [place] [address] PCP - General Internal Medicine 01/05/15 08/02/15 Nelson Arroyo PA-C [address] [place] [address] PCP - General Physician Post Tronic Machine Operator - Medical 08/03/15 08/20/15 Hillary Unger MD [address] [place] [address] PCP - General Internal Medicine 08/21/15 08/05/18 Nelson Arroyo PA-C [address] [address] PCP - Assigned PCP 04/12/18 05/02/18 Hillary Unger MD [address] [place] [address] PCP - Assigned PCP 02/01/18 04/11/18 Hillary Unger MD [address] [place] [address] PCP - Assigned PCP 05/03/18 07/07/18 Nelson Arroyo PA-C [address] [address] PCP - General Physician Post Tronic Machine Operator - Medical 08/06/18 Salina Doherty MD Internal Medicine 12/01/14 Carrillo Ware APRN CONTINUOUS IMPROVEMENT CONSULTANT [address] [place] [address] Nurse Practitioner Nurse Practitioner 12/16/14 Angelica Jerez HARDENER HELPER [facility] [address] [place], [place] [address] Nurse Practitioner Nurse Practitioner - Family 07/12/16 Hillary Unger MD [address] [place], [place] [address] Assigned PCP 05/03/18 07/18/18 Nelson Arroyo PA-C [address] [place] [address] Assigned PCP 07/05/18 07/29/20 Chinyere Barbour Personal Advocate & Liaison (PAL) 01/31/20 04/26/20 Nelson Arroyo [place]-C [address] [place] [address] Assigned PCP 07/30/20 Pietro Wills MD [address] [place] [address] Assigned Heart and Vascular Provider 12/14/22 Tank uBcio MD [address], [address] [address] Physician police captain senior 12/01/23 documented as of this encounter
--- OUTSIDE RECORDS SUMMARY | 2024-06-02 17:00 | XMS_ITS | Encounter Summary ---
Author Organization [facility] Address [address] [place] [address] Care Team Providers Care Scan Coordinator Name Role Phone Salina Doherty MD Unavailable [phone] Carrillo Ware APRN AIR COMMODORE Unavailable [phone] Hillary Unger MD Primary Care P rovider [facility] NP Unavailable [phone] Hillary Unger MD Unavailable Hillary Unger MD Unavailable Nelson Arroyo PA-C Unavailable [phone] Nelson Arroyo PA-C Primary Care Provider [phone] Chinyere Barbour Unavailable Unavailable Nelson Arroyo PA-C Unavailable [phone] Pietro Wills MD Unavailable [phone] Tank Bucio MD Unavailable [phone] Reason for Referral * Consultation - Closed Specialty Diagnoses / Procedures Referred By Michela t Referred To Contact Diagnoses Cellulitis of buttock Nelson Arroyo PA-C Phone: tel: fax: [facility] [address] [place] [address] Phone: tel: fax: Referral ID Status Reason Start Date Expiration Date Visits Re quested Visits Authorized [id number] Closed 06/25/2018 06/25/2019 1 1 Comments Your provider has referred you to: [facility] [email or web address] Please be aware that coverage of these services is subject to the terms and limitations of your health insurance plan. Call member services at your health plan with any benefit or coverage questions. Please bring the following with you to your appointment: (1) Any X-Rays, CTs or MRIs which have been performed. Contact the facility where they were done to arrange for brick picker prior to your scheduled appointment. (2) List of current medications (3) This referral request (4) Any documents/labs given to you for this referral AL DEVELOPER Reason for Visit * Reason Onset Date Comments Derm Problem 06/24/2018 Cellulitis Encounter Details Date Type Department Care Team (Late st Contact Info) Description 06/24/2018 MyC Medical Advice [address], [address] [place] [address] Nelson Arroyo PA-C [address] [place], [place] [id number] Derm Problem (Cellulitis) Social History Tobacco Use Types Packs/Day Years [...] PM CDT 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:44 AM PORTAL DEVELOPER Gender Identity Female 10/03/2020 8:33 PM CDT Sexual Orientation Straight 07/01/2018 3: 40 PM PORTAL DEVELOPER documented as of this encounter Plan of Treatment Scheduled Referrals Name Type Priority Associated Diagnoses Orde r Schedule DERMATOLOGY REFERRAL Referral Routine Cellulitis of buttock Ordered: 06/25/2018 documented as of this encounter Visit Diagnoses Diagnosis Cellulitis of buttock- Primary Cellulitis and abscess of buttock documented in this encounter Additional Health Concerns Assessment Noted Time PHQ-9 Depression Total Score: 9 05/15/19 19 2:09 PM PORTAL DEVELOPER documented as of this encounter Care Teams Scan Coordinator Relationship Specialty Start Date End Date Hillary Unger MD [address] [place], [place] [address] PCP - General Internal Medicine 08/21/15 08/05/18 Hillary Unger MD [address] [place], [place] [address] PCP - Assigned PCP 05/03/18 07/07/18 Nelson Arroyo PA-C [address] [facility] [place] [address] PCP - General Physician Project Development Leader - Medical 08/06/18 Salina Doherty MD Internal Medicine 12/01/14 Carrillo Ware APRN AIR COMMODORE [address] [place] [address] Nurse Practitioner Nurse Practitioner 12/16/14 Angelica Jerez NP [facility] [address] [place] [address] Nurse Practitioner Nurse Practitioner - Family 07/12/16 Hillary Unger MD [address] [place] [address] Assigned PCP 05/03/18 07/18/18 Nelson Arroyo PA-C [address] [place] [address] Assigned PCP 07/05/18 07/29/20 Chinyere Barbour Personal Advocate & Liaison (PAL) 01/31/20 04/26/20 Nelson Arroyo PA-C [address] [place] [address] Assigned PCP 07/30/20 Pietro Wills MD [address] [place] [address] Assigned Heart and Vascular Provider 12/14/22 Tank Bucio MD [address], [facility] [address] [place] [address] Physician chain dyer 12/01/23 documented as of this encounter
--- OUTSIDE RECORDS SUMMARY | 2024-06-02 17:00 | XMS_ITS | Encounter Summary ---
Author Organization [place] Address [address] [place] [address] Care Team Providers Care Movie Star Name Role Phone Salina Doherty MD Unavailable [phone] Carrillo Ware APRN RESOURCE ROOM SPECIAL EDUCATION TEACHER Unavailable Hillary Unger MD Primary Care P rovider Nelson Arroyo PA-C Primary Care Provider +[phone] Hillary Unger MD Primary Care P rovider Angelica Jerez NP Unavailable [phone] Nelson Arroyo PA-C Unavailable [phone] Hillary Unger MD Unavailable Hillary Unger MD Unavailable Hillary Unger MD Unavailable Nelson Arroyo PA-C Unavailable [phone] Nelson Arroyo PA-C Primary Care Provider +[phone]- Chinyere Barbour Unavailable Unavailable Nelson Arroyo PA-C Unavailable [phone] Pietro Wills MD Unavailable [phone] Tank Bucio MD Unavailable + [phone] Reason for Visit * Reason Onset Date Comments Refill Request 07/31/2015 Encounter Details Date Type Department Care Team (Late st Contact Info) Description 07/31/2015 MyC Refill [facility] [address] [place] [address] Hillary Unger MD [address] [place] [address] Refill Request Social History Tobacco Use Types [...] CDT 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:44 AM IT MANAGER Gender Identity Female 10/03/2020 8:33 PM CDT Sexual Orientation Straight 07/01/2018 3: 40 PM IT MANAGER documented as of this encounter Miscellaneous Notes * Telephone Encounter - Hillary Unger MD - 08/01/2015 6:31 PM CDT Khadijah, Look in the chart at the last 2 OV. I think she changed provider to Nelson Arroyo. So the refillsshould be addressed by Nelson Arroyo. * Telephone Encounter - Hillary Unger MD - 08/01/2015 6:12 PM CDTMessage from Sravanthit: Khadijah Rushing RN Tue Aug 01, 2015 6:30 AM ----- Message ----- From: Nidia Crystal Sent: 07/31/2015 6:59 PM To: Larry Krishnan Subject: Medication Renewal Request Original authorizing provider: MD Nidia Vyas would like a refill of the following medications: amphetamine-dextroamphetamine (ADDERALL XR) 30 MG per capsule [Hillary Unger MD] amphetamine-dextroamphetamine (ADDERALL) 10 MG tablet [Hillary Dumas MD] LORazepam (ATIVAN) 0.5 MG tablet [Hillary Unger MD] Preferred pharmacy: [address] [address] ROGELIO HERNANDEZ Comment: Medication renewals requested in this message routed to other providers: QUEtiapine (SEROQUEL) 25 MG tablet [Nelson Arroyo PA-C] documented in this encounter Plan of Treatment Not on file documented as of this encounter Visit Diagnoses Diagnosis ADHD Panic attack Panic disorder without agoraphobia documented in this encounter Additional Health Concerns Assessment Noted Time PHQ-9 Depression Total Score: 6 06/28/19 16 8:10 AM IT MANAGER documented as of this encounter Care Teams Movie Star Relationship Specialty Start Date End Date Hillary Unger MD [address] [place] [address] PCP - General Internal Medicine 01/05/15 08/02/15 Nelson Arroyo PA-C [address] [place], [place] [address] PCP - General Physician Export Clerk - Medical 08/03/15 08/20/15 Hillary Unger MD [address] [place] [address] PCP - General Internal Medicine 08/21/15 08/05/18 Nelson Arroyo PA-C [address] [facility] [address] PCP - Assigned PCP 04/12/18 05/02/18 Hillary Unger MD [address] [place] [address] PCP - Assigned PCP 02/01/18 04/11/18 Hillary Unger MD [address] [place] [address] PCP - Assigned PCP 05/03/18 07/07/18 Nelson Arroyo PA-C [address] [place] [address] PCP - General Physician Export Clerk - Medical 08/06/18 Salina Doherty MD Internal Medicine 12/01/14 Carrillo Ware APRN CNP [address] [place] [address] Nurse Practitioner Nurse Practitioner 12/16/14 Angelica Jerez NP [facility] [address] [place] [address] Nurse Practitioner Nurse Practitioner - Family 07/12/16 Hillary Unger MD [address] [place] [address] Assigned PCP 05/03/18 07/18/18 Nelson Arroyo PA-C [address] [place] [address] Assigned PCP 07/05/18 07/29/20 Chinyere Barbour Personal Advocate & Liaison (PAL) 01/31/20 04/26/20 Nelson Arroyo PA-C [address] [id number] Assigned PCP 07/30/20 Pietro Wills MD [address] [place] 733[address] Assigned Heart and Vascular Provider 12/14/22 Tank Bucio MD [address] [facility] [address] [place], [place] 8[address] Physician installation supervisor 12/01/23 documented as of this encounter
--- OUTSIDE RECORDS SUMMARY | 2024-06-02 17:00 | XMS_ITS | Encounter Summary ---
Author Organization [place] Address [address] [place] [address]. [place] [address] Care Team Providers Care Computer Equipment Installer Name Role Phone Salina Doherty MD Unavailable [phone] Carrillo Ware APRN DIRECTOR OF SUPPLY CHAIN Unavailable SolitarioAngelica golden NP Unavailable [phone] Nelson Arroyo PA-C Unavailable [phone] Nelson Arroyo PA-C Primary Care Provider Chinyere Barbour Unavailable Unavailable Nelson Arroyo PA-C Unavailable Pietro Wills MD Unavailable Tank Bucio MD Unavailable Encounter Details Date Type Department Care Team (Late st Contact Info) Description 01/12/2019 MyC Medical Advice [address], [address] [place] [address] Nelson Arroyo PA-C [address] [place] [address] Social History Tobacco Use Types [...] PM CDT 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:44 AM DEATH CLAIM EXAMINER Gender Identity Female 10/03/2020 8:33 PM CDT Sexual Orientation Straight 07/01/2018 3: 40 PM DEATH CLAIM EXAMINER documented as of this encounter Plan of Treatment Not on file documented as of this encounter Visit Diagnoses Not on filedocumented in this encounter Additional Health Concerns Assessment Noted Time PHQ-9 Depression Total Score: 7 10/23/19 19 11:12 AM CDT documented as of this encounter Care Teams Computer Equipment Installer Relationship Specialty Start Date End Date Nelson Arroyo PA-C [address] [place] [address] PCP - General Physician Creative Services Designer - Medical 08/06/18 Salina Doherty MD Internal Medicine 12/01/14 Carrillo Ware APRN CNP [address] [place] [address] Nurse Practitioner Nurse Practitioner 12/16/14 Angelica Jerez NP [address] 201[address] Nurse Practitioner Nurse Practitioner - Family 07/12/16 Nelson Arroyo PA-C [address] [place] [address] Assigned PCP 07/05/18 07/29/20 Chinyere Barbour Personal Advocate & Liaison (PAL) 01/31/20 04/26/20 Nelson Arroyo PA-C [address] [place] [address] Assigned PCP 07/30/20 Pietro Wills MD [address] [place] [address] Assigned Heart and Vascular Provider 12/14/22 Tank Bucio MD [address] [facility], [address] [address] Physician pigment presser 12/01/23 documented as of this encounter
--- OUTSIDE RECORDS SUMMARY | 2024-06-02 17:00 | XMS_ITS | Encounter Summary ---
Author Organization [place] Address [address] [place] [address] Care Team Providers Care Felt Cutting Machine Operator Name Role Phone Salina Doherty MD Unavailable [phone] Carrillo Ware APRN ASIC VERIFICATION ENGINEER Unavailable Hillary Unger MD Primary Care P rovider [facility] Unavailable [phone] Nelson Arroyo PA-C Unavailable Hillary Unger MD Unavailable Hillary Unger MD Unavailable Hillary Unger MD Unavailable Nelson Arroyo PA-C Unavailable [phone] Nelson Arroyo PA-C Primary Care Provider Chinyere Barbour Unavailable Unavailable Nelson Arroyo PA-C Unavailable [phone] Pietro Wills MD Unavailable [phone] Tank Bucio MD Unavailable Encounter Details Date Type Department Care Team (Late st Contact Info) Description 07/03/2017 [facility] [address] [place] [address] Cheyanne Garcia, YULI Social History Tobacco Use Types Packs/Day Years [...] PM CDT 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:44 AM SUGAR CONTROLLER Gender Identity Female 10/03/2020 8:33 PM CDT Sexual Orientation Straight 07/01/2018 3: 40 PM SUGAR CONTROLLER documented as of this encounter Plan of Treatment Not on file documented as of this encounter Visit Diagnoses Not on filedocumented in this encounter Additional Health Concerns Assessment Noted Time PHQ-9 Depression Total Score: 4 04/04/20 17 7:13 AM SUGAR CONTROLLER documented as of this encounter Care Teams Felt Cutting Machine Operator Relationship Specialty Start Date End Date Hillary Unger MD [address] [place] [address] PCP - General Internal Medicine 08/21/15 08/05/18 Nelson Arroyo PA-C [address] [place] [address] PCP - Assigned PCP 04/12/18 05/02/18 Hillary Unger MD [address] [place] [address] PCP - Assigned PCP 02/01/18 04/11/18 Hillary Unger MD [address] [place] [address] PCP - Assigned PCP 05/03/18 07/07/18 Nelson Arroyo PA-C [address] [place] [address] PCP - General Physician Electronic News Gathering Editor - Medical 08/06/18 Salina Doherty MD Internal Medicine 12/01/14 Carrillo Ware APRN ASIC VERIFICATION ENGINEER [address] [place] [address] Nurse Practitioner Nurse Practitioner 12/16/14 Angelica Jerez NP [facility] [address] [place] [address] Nurse Practitioner Nurse Practitioner - Family 07/12/16 Hillary Unger MD [address] [place] [address] Assigned PCP 05/03/18 07/18/18 Nelson Arroyo PA-C [address] [place] [address] Assigned PCP 07/05/18 07/29/20 Chinyere Barbour Personal Advocate & Liaison (PAL) 01/31/20 04/26/20 Nelson Arroyo PA-C [address] [place] [address] Assigned PCP 07/30/20 Pietro Wills MD [address] [place] [address] Assigned Heart and Vascular Provider 12/14/22 Tank Bucio MD [address] [address] Physician charge master coordinator 12/01/23 documented as of this encounter
--- OUTSIDE RECORDS SUMMARY | 2024-06-02 17:00 | XMS_ITS | Encounter Summary ---
Author Organization [place] Address [address] [place] [address] Care Team Providers Care Cutting And Splicing Supervisor Name Role Phone Salina Doherty MD Unavailable [phone] Carrillo Ware APRN ACOUSTICAL MATERIAL WORKER Unavailable Hillary Unger MD Primary Care P rovider [facility] NP Unavailable [phone] Nelson Arroyo PA-C Unavailable [phone] Hillary Unger MD Unavailable Hillary Unger MD Unavailable Hillary Unger MD Unavailable Nelson Arroyo PA-C Unavailable [phone] Nelson Arroyo PA-C Primary Care Provider [phone] Chinyere Barbour Unavailable Unavailable Nelson Arroyo PA-C Unavailable [phone] Pietro Wills MD Unavailable [phone] Tank Bucio MD Unavailable [phone] Encounter Details Date Type Department Care Team (Late st Contact Info) Description 12/12/2015 [facility] Advice [address], [address] [place] [address] Zully Vidal APRN ACOUSTICAL MATERIAL WORKER [address] [place] [address] Social History Tobacco Use Types Packs/Day Years [...] PM CDT 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:44 AM TRAVEL OT Gender Identity Female 10/03/2020 8:33 PM CDT Sexual Orientation Straight 07/01/2018 3: 40 PM TRAVEL OT documented as of this encounter Plan of Treatment Not on file documented as of this encounter Visit Diagnoses Not on filedocumented in this encounter Additional Health Concerns Assessment Noted Time PHQ-9 Depression Total Score: 5 09/19/19 16 7:14 AM CDT documented as of this encounter Care Teams Cutting And Splicing Supervisor Relationship Specialty Start Date End Date Hillary Unger MD [address] [place] [address] PCP - General Internal Medicine 08/21/15 08/05/18 Nelson Arroyo PA-C [address] [place] [address] PCP - Assigned PCP 04/12/18 05/02/18 Hillary Unger MD [address] [place] [address] PCP - Assigned PCP 02/01/18 04/11/18 Hillary Unger MD [address] [place] [address] PCP - Assigned PCP 05/03/18 07/07/18 Nelson Arroyo PA-C [address] [place] [address] PCP - General Physician Economics Analyst - Medical 08/06/18 Salina Doherty MD Internal Medicine 12/01/14 Carrillo Ware APRN ACOUSTICAL MATERIAL WORKER [address] [place] [address] Nurse Practitioner Nurse Practitioner 12/16/14 Angelica Jerez NP [facility] [address] [place], [place] 55[address] Nurse Practitioner Nurse Practitioner - Family 07/12/16 Hillary Unger MD [address] [place] [address] Assigned PCP 05/03/18 07/18/18 Nelson Arroyo PA-C [address] [place] [address] Assigned PCP 07/05/18 07/29/20 Chinyere Barbour Personal Advocate & Liaison (PAL) 01/31/20 04/26/20 Nelson Arroyo PA-C [address] [place] [address] Assigned PCP 07/30/20 Pietro Wills MD [address] [place] [address] Assigned Heart and Vascular Provider 12/14/22 Tank Bucio MD [address], [facility] 100 [place] [address] Physician benefits technician 12/01/23 documented as of this encounter
--- OUTSIDE RECORDS SUMMARY | 2024-06-02 17:01 | XMS_ITS | Encounter Summary ---
Author Organization [place] Address [address] [place] [address] Care Team Providers Care Floor Specialist Name Role Phone Salina Doherty MD Unavailable Carrillo Ware APRN FINANCE BROKER Unavailable SolitarioAngelica golden NP Unavailable [phone] Nelson Arroyo PA-C Primary Care Provider Nelson Arroyo PA-C Unavailable [phone] Pietro Wills MD Unavailable Tank Bucio MD Unavailable Encounter Details Date Type Department Care Team (Late st Contact Info) Description 04/23/2022 [facility] [place] [address] [facility] [address] [place] [address] Yodit Alexis, [facility] [address] [place] [address] Social History Tobacco Use Types Packs/Day Years [...] PM CDT 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:44 AM TECHNICAL TRAINING SPECIALIST Gender Identity Female 10/03/2020 8:33 PM CDT Sexual Orientation Straight 07/01/2018 3: 40 PM TECHNICAL TRAINING SPECIALIST documented as of this encounter Plan of Treatment Not on file documented as of this encounter Visit Diagnoses Not on filedocumented in this encounter Additional Health Concerns Assessment Noted Time PHQ-9 Depression Total Score: 7 10/23/19 22 11:44 AM CDT documented as of this encounter Care Teams Floor Specialist Relationship Specialty Start Date End Date Nelson Arroyo PA-C [address] [place] [address] PCP - General Physician Health Data Analyst - Medical 08/06/18 Salina Doherty MD Internal Medicine 12/01/14 Carrillo Ware APRN FINANCE BROKER [address] [place] [address] Nurse Practitioner Nurse Practitioner 12/16/14 Angelica Jerez NP [address] 881107 Nurse Practitioner Nurse Practitioner - Family 07/12/16 Nelson rAroyo PA-C [address] [address] Assigned PCP 07/30/20 Pietro Wills MD [address] [address] Assigned Heart and Vascular Provider 12/14/22 Tank Bucio MD [address], [facility] [address] [place] [address] Physician delinquency prevention social worker 12/01/23 documented as of this encounter
--- OUTSIDE RECORDS SUMMARY | 2024-06-02 17:01 | XMS_ITS | Encounter Summary ---
Author Organization [place] Address [address] [place] [address] Care Team Providers Care Accounting Professional Name Role Phone Salina Doherty MD Unavailable Carrillo Ware APRN MARKETING [employer]TERTAINMENT Unavailable SolitarioAngelica golden NP Unavailable Nelson Arroyo PA-C Primary Care Provider Nelson Arroyo PA-C Unavailable [phone] Pietro Wills MD Unavailable Tank Bucio MD Unavailable Encounter Details Date Type Department Care Team (Late st Contact Info) Description 02/13/2022 [facility] Advice [facility] [address] [facility] [address] [place] [address] Yodit Alexis, [facility] [address] [place] [address] Social History Tobacco Use Types [...] PM CDT 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:44 AM BREASTFEEDING PEER COUNSELOR Gender Identity Female 10/03/2020 8:33 PM CDT Sexual Orientation Straight 07/01/2018 3: 40 PM BREASTFEEDING PEER COUNSELOR documented as of this encounter Plan of Treatment Not on file documented as of this encounter Visit Diagnoses Not on filedocumented in this encounter Additional Health Concerns Assessment Noted Time PHQ-9 Depression Total Score: 7 10/23/19 22 11:44 AM CDT documented as of this encounter Care Teams Accounting Professional Relationship Specialty Start Date End Date Nelson Arroyo PA-C [address] [place] [address] PCP - General Physician Nurse Researcher - Medical 08/06/18 Salina Doherty MD Internal Medicine 12/01/14 Carrillo Ware APRN [employer] [address] [place] [address] 225815 Nurse Practitioner Nurse Practitioner 12/16/14 Angelica Jerez NP [address] 484667 Nurse Practitioner Nurse Practitioner - Family 07/12/16 Nelson Arroyo PA-C [address] [address] Assigned PCP 07/30/20 Pietro Wills MD [address] [address] Assigned Heart and Vascular Provider 12/14/22 Tank Bucio MD [address], [facility] 100 [place] [address] Physician counter top assembler 12/01/23 documented as of this encounter
--- OUTSIDE RECORDS SUMMARY | 2024-06-02 17:01 | XMS_ITS | Encounter Summary ---
Author Organization [place] Address [address] [place] [address] Care Team Providers Care Auto Service Mechanic Name Role Phone Salina Doherty MD Unavailable [phone] Carrillo Ware APRN GED TEACHER Unavailable Hillary Unger MD Primary Care P rovider Nelson Arroyo PA-C Primary Care Provider [phone] Hillary Unger MD Primary Care P rovider Angelica Jerez NP Unavailable [phone] Nelson Arroyo PA-C Unavailable [phone] Hillary Unger MD Unavailable Hillary Unger MD Unavailable Hillary Unger MD Unavailable Nelson Arroyo PA-C Unavailable [phone] Nelson Arroyo PA-C Primary Care Provider +[phone] Chinyere Barbour Unavailable Unavailable Nelson Arroyo PA-C Unavailable [phone] Pietro Wills MD Unavailable [phone] Tank Bucio MD Unavailable [phone] Reason for Visit * Reason Onset Date Comments Insomnia 05/06/2015 Encounter Details Date Type Department Care Team (Late st Contact Info) Description 05/06/2015 MyC Medical Advice [address], [address] [place] [address] Nelson Arroyo PA-C [address] [place] [address] Insomnia Social History Tobacco Use Types Packs/Day Years [...] PM CDT 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:44 AM MANAGER LIFE INSURANCE Gender Identity Female 10/03/2020 8:33 PM CDT Sexual Orientation Straight 07/01/2018 3: 40 PM MANAGER LIFE INSURANCE documented as of this encounter Plan of Treatment Not on file documented as of this encounter Visit Diagnoses Not on filedocumented in this encounter Care Teams Auto Service Mechanic Relationship Specialty Start Date End Date Hillary Unger MD [address] [place] [address] PCP - General Internal Medicine 01/05/15 08/02/15 Nelson Arroyo PA-C [address] [place] [address] PCP - General Physician Diesel Engine Fitter - Medical 08/03/15 08/20/15 Hillary Unger MD [address] [place] [address] PCP - General Internal Medicine 08/21/15 08/05/18 Nelson Arroyo PA-C [address] [place] [address] PCP - Assigned PCP 04/12/18 05/02/18 Hillary Unger MD [address] [facility] [place] [place] [address] PCP - Assigned PCP 02/01/18 04/11/18 Hillary Unger MD [address] [place], [place] 463847 PCP - Assigned PCP 05/03/18 07/07/18 Nelson Arroyo PA-C [address] [place] [address] PCP - General Physician Diesel Engine Fitter - Medical 08/06/18 Salina Doherty MD Internal Medicine 12/01/14 Carrillo Ware APRN GED TEACHER [address] [place] [address]725 Nurse Practitioner Nurse Practitioner 12/16/14 Angelica Jerez NP [facility] [address] [place], [place] 218487 Nurse Practitioner Nurse Practitioner - Family 07/12/16 Hillary Unger MD [address] [facility] [address] Assigned PCP 05/03/18 07/18/18 Nelson Arroyo PA-C [address] [place] [address] Assigned PCP 07/05/18 07/29/20 Chinyere Barbour Personal Advocate & Liaison (PAL) 01/31/20 04/26/20 Nelson Arroyo PA-C [address] [place] [address] Assigned PCP 07/30/20 Pietro Wills MD [address] [place] [address] Assigned Heart and Vascular Provider 12/14/22 Tank Bucio MD [address] [place] [address] [place] [address] Physician floor layer 12/01/23 documented as of this encounter
--- OUTSIDE RECORDS SUMMARY | 2024-06-02 17:01 | XMS_ITS | Encounter Summary ---
Author Organization [place] Address [address] [place] [address] Care Team Providers Care Biomedical Scientist Name Role Phone Salina Doherty MD Unavailable [phone] Carrillo Ware APRN CLOTH SHRINKING MACHINE OPERATOR HELPER Unavailable SolitarioAngelica golden NP Unavailable [phone] Nelson Arroyo PA-C Unavailable [phone] Nelson Arroyo PA-C Primary Care Provider [phone] Chinyere Barbour Unavailable Unavailable Nelson Arroyo PA-C Unavailable [phone] Pietro Wills MD Unavailable [phone] Tank Bucio MD Unavailable [phone] Encounter Details Date Type Department Care Team (Late st Contact Info) Description 09/20/2019 My[facility] Medical Advice [address] [address] Blanca Baker Social History Tobacco Use Types Packs/Day Years Used Date Smoking Tobacco: Former Cigarettes 0.5 2.8 0 06/05/2012 - 03/09/2015 Smokeless Tobacco: Never Quit: 06/01/2014 Comments:Started 17 y/o Alcohol Use Standard Drinks/Week Comments Yes 0 (1 standard drink = 0.6 oz pur e alcohol) Occasionally PHQ-2 Answer Date Recorded PHQ-2 Score 4 06/30/2019 Comments No Sex and Gender Information Value Date Recorded Sex Assigned at Female 10/03/2020 8:33 PM CDT 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:44 AM SUPERVISOR POULTRY FARM Gender Identity Female 10/03/2020 8:33 PM CDT Sexual Orientation Straight 07/01/2018 3: 40 PM SUPERVISOR POULTRY FARM documented as of this encounter Plan of Treatment Not on file documented as of this encounter Visit Diagnoses Not on filedocumented in this encounter Additional Health Concerns Assessment Noted Time PHQ-9 Depression Total Score: 7 09/29/19 20 7:04 AM CDT documented as of this encounter Care Teams Biomedical Scientist Relationship Specialty Start Date End Date Nelson Arroyo PA-C [address] [address] PCP - General Physician Manager Surgery - Medical 08/06/18 Salina Doherty MD Internal Medicine 12/01/14 Carrillo Ware APRN CLOTH SHRINKING MACHINE OPERATOR HELPER [address] [place] [address] Nurse Practitioner Nurse Practitioner 12/16/14 Angelica Jerez NP [address] [address] Nurse Practitioner Nurse Practitioner - Family 07/12/16 Nelson Arroyo PA-C [address] [address] Assigned PCP 07/05/18 07/29/20 Chinyere Barbour Personal Advocate & Liaison (PAL) 01/31/20 04/26/20 Nelson Arroyo PA-C [address] [address] Assigned PCP 07/30/20 Pietro Wills MD [address] [place] [address] Assigned Heart and Vascular Provider 12/14/22 Tank Bucio MD [address] [facility] [address] [place] [address] Physician director of anesthesia services 12/01/23 documented as of this encounter
--- OUTSIDE RECORDS SUMMARY | 2024-06-02 17:01 | XMS_ITS | Encounter Summary ---
Author Organization [facility] Address [address] [place] [address] Care Team Providers Care Furniture Detailer Name Role Phone Salina Doherty MD Unavailable [phone] Carrillo Ware APRN PROCESSING ARCHIVIST Unavailable Hillary Unger MD Primary Care P rovider [facility] NP Unavailable [phone] Nelson Arroyo PA-C Unavailable Hillary Unger MD Unavailable Hillary Unger MD Unavailable Hillary Unger MD Unavailable Nelson Arroyo PA-C Unavailable [phone] Nelson Arroyo PA-C Primary Care Provider Chinyere Barbour Unavailable Unavailable Nelson Arroyo PA-C Unavailable [phone] Pietro Wills MD Unavailable [phone] Tank Bucio MD Unavailable Encounter Details Date Type Department Care Team (Late st Contact Info) Description 02/06/2016 [facility] [address] [place] [address] Khadijah Rushing RN Social History Tobacco Use Types Packs/Day [...] PM CDT 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:44 AM TARIFF PUBLISHING AGENT Gender Identity Female 10/03/2020 8:33 PM CDT Sexual Orientation Straight 07/01/2018 3: 40 PM TARIFF PUBLISHING AGENT documented as of this encounter Plan of Treatment Not on file documented as of this encounter Visit Diagnoses Not on filedocumented in this encounter Additional Health Concerns Assessment Noted Time PHQ-9 Depression Total Score: 5 09/19/19 16 7:14 AM CDT documented as of this encounter Care Teams Furniture Detailer Relationship Specialty Start Date End Date Hillary Unger MD [address] [place] [address] PCP - General Internal Medicine 08/21/15 08/05/18 Nelson Arroyo PA-C [address] [place] [address] PCP - Assigned PCP 04/12/18 05/02/18 Hillary Unger MD [address] [place] [address] PCP - Assigned PCP 02/01/18 04/11/18 Hillary Unger MD [address] [place] [address] PCP - Assigned PCP 05/03/18 07/07/18 Nelson Arroyo PA-C [address] [place] [address] PCP - General Physician Traveling Inventory Associate - Medical 08/06/18 Salina Doherty MD Internal Medicine 12/01/14 Carrillo Ware APRN PROCESSING ARCHIVIST [address] [place] [address] Nurse Practitioner Nurse Practitioner 12/16/14 Angelica Jerez NP [facility] [address] [place] [address] Nurse Practitioner Nurse Practitioner - Family 07/12/16 Hillary Unger MD [address] [place], [place] [id number] Assigned PCP 05/03/18 07/18/18 Nelson Arroyo PA-C [address] [place] [address] Assigned PCP 07/05/18 07/29/20 Chinyere Barbour Personal Advocate & Liaison (PAL) 01/31/20 04/26/20 Nelson Arroyo PA-C [address] [place] [address] Assigned PCP 07/30/20 Pietro Wills MD [address] 723875 Assigned Heart and Vascular Provider 12/14/22 Tank Bucio MD [address], [address] [address] Physician receiving supervisor 12/01/23 documented as of this encounter
--- OUTSIDE RECORDS SUMMARY | 2024-06-02 17:01 | XMS_ITS | Encounter Summary ---
Author Organization [place] Address [address] [place] [address]. [place] [address] Care Team Providers Care Thickener Operator Name Role Phone Salina Doherty MD Unavailable [phone] Carrillo Ware APRN TOOL CRIB ATTENDANT Unavailable SolitarioAngelica golden NP Unavailable [phone] Nelson Arroyo PA-C Primary Care Provider Nelson Arroyo PA-C Unavailable [phone] Pietro Wills MD Unavailable Tank Bucio MD Unavailable Reason for Visit * Reason Onset Date Comments Refill Request 08/15/2022 Encounter Details Date Type Department Care Team (Late st Contact Info) Description 08/15/2022 MyC Refill [facility] [address] [place] [address] Nelson Arroyo PA-C [address] [place] [address] Refill Request Social History Tobacco Use Types Packs/Day Years Used Date Smoking Tobacco: Former Cigarettes 0.5 2.8 0 06/05/2012 - 03/09/2015 Smokeless Tobacco: Never Quit: 06/01/2014 Comments:Started 17 y/o Alcohol Use Standard Drinks/Week Comments Yes 0 (1 standard drink = 0.6 oz pur e alcohol) Occasionally PHQ-2 Answer Date Recorded PHQ-2 Score 2 08/15/2022 Comments No Sex and Gender Information Value Date Recorded Sex Assigned at Female 10/03/2020 8:33 PM CDT 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:44 AM SEAMER PANTY HOSE Gender Identity Female 10/03/2020 8:33 PM CDT Sexual Orientation Straight 07/01/2018 3: 40 PM SEAMER PANTY HOSE COVID-19 Exposure Response Date Recorded In the last 10 days, have yo u been in contact with someone who was confirmed or suspected to have Coronavirus/COVID-19? No / Unsure 08/15/2022 12:45 PM CDT documented as of this encounter Miscellaneous Notes * Telephone Encounter - Ashely Naylor RN - 08/16/2022 1:46 PM CDT Routing refill request to provider for review/approval because: Drug not on the [facility] refill protocol Ashely Naylor RN documented in this encounter Plan of Treatment Not on file documented as of this encounter Visit Diagnoses Diagnosis Muscle spasm Spasm of muscle documented in this encounter Additional Health Concerns Assessment Noted Time PHQ-9 Depression Total Score: 6 08/16/19 23 12:42 PM CDT documented as of this encounter Care Teams Thickener Operator Relationship Specialty Start Date End Date Nelson Arroyo PA-C [address] [place] [address] PCP - General Physician Technology Specialist - Medical 08/06/18 Salina Doherty MD Internal Medicine 12/01/14 Carrillo Ware APRN TOOL CRIB ATTENDANT [address] [place] [address] Nurse Practitioner Nurse Practitioner 12/16/14 Angelica Jerez NP [place] [address] [place] [address] Nurse Practitioner Nurse Practitioner - Family 07/12/16 Nelson Arroyo PA-C [address] [place] [address] Assigned PCP 07/30/20 Pietro Wills MD [address] [place] [address] Assigned Heart and Vascular Provider 12/14/22 Tank Bucio MD [address] [facility] [address] [place] [address] Physician operations representative 12/01/23 documented as of this encounter
--- OUTSIDE RECORDS SUMMARY | 2024-06-02 17:01 | XMS_ITS | Encounter Summary ---
Author Organization [facility] Address [address] [place] [address] Care Team Providers Care Brazing Machine Operator Helper Name Role Phone Salina Doherty MD Unavailable [phone] Carrillo Ware APRN TIN POURER Unavailable SolitarioAngelica golden NP Unavailable [phone] Nelson Arroyo PA-C Primary Care Provider Nelson Arroyo PA-C Unavailable [phone] Pietro Wills MD Unavailable [phone] Tank Bucio MD Unavailable [phone] Encounter Details Date Type Department Care Team (Late st Contact Info) Description 02/15/2022 [facility] Medical Advice [address] [address] Damaso Loza, JONEL Social History Tobacco Use Types Packs/Day Years [...] PM CDT 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:44 AM ACUTE CARE CERTIFIED NURSING ASSISTANT Gender Identity Female 10/03/2020 8:33 PM CDT Sexual Orientation Straight 07/01/2018 3: 40 PM ACUTE CARE CERTIFIED NURSING ASSISTANT documented as of this encounter Plan of Treatment Not on file documented as of this encounter Visit Diagnoses Not on filedocumented in this encounter Additional Health Concerns Assessment Noted Time PHQ-9 Depression Total Score: 7 10/23/19 22 11:44 AM CDT documented as of this encounter Care Teams Brazing Machine Operator Helper Relationship Specialty Start Date End Date Nelson Arroyo PA-C [address] [place] [address] PCP - General Physician Strategy Analyst - Medical 08/06/18 Salina Doherty MD Internal Medicine 12/01/14 Carrillo Ware APRN TIN POURER [address] [place] [address]3535 Nurse Practitioner Nurse Practitioner 12/16/14 Angelica Jerez NP [facility] [address] [place], [place] [address] Nurse Practitioner Nurse Practitioner - Family 07/12/16 Nelson Arroyo PA-C [address] [place] [address] Assigned PCP 07/30/20 Pietro Wills MD [address] [place] [address] Assigned Heart and Vascular Provider 12/14/22 Tank Bucio MD [address] [address] Physician habilitation assistant 12/01/23 documented as of this encounter
--- OUTSIDE RECORDS SUMMARY | 2024-06-02 17:01 | XMS_ITS | Encounter Summary ---
Author Organization [place] Address [address] [place] [address] Care Team Providers Care Educational Administration Teacher Name Role Phone Salina Doherty MD Unavailable [phone] Carrillo Ware APRN SUPERVISOR TREE TRIMMING Unavailable Hillary Unger MD Primary Care P rovider [facility] CharlotteAngelica NP Unavailable [phone] Nelson Arroyo PA-C Unavailable [phone] Hillary Unger MD Unavailable Hillary Unger MD Unavailable Hillary Unger MD Unavailable Nelson Arroyo PA-C Unavailable [phone] Nelson Arroyo PA-C Primary Care Provider Chinyere Barbour Unavailable Unavailable Nelson Arroyo PA-C Unavailable [phone] Pietro Wills MD Unavailable [phone] Tank Bucio MD Unavailable [phone] Reason for Visit * Reason Onset Date Comments Patient Inquiry 07/26/2016 Refills Encounter Details Date Type Department Care Team (Late st Contact Info) Description 07/26/2016 [facility] [address] [place] [address] Hillary Unger MD [address] [place] [address] Patient Inquiry (Refills) Social History Tobacco Use Types Packs/Day Years [...] PM CDT 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:44 AM INGOT STRIPPER Gender Identity Female 10/03/2020 8:33 PM CDT Sexual Orientation Straight 07/01/2018 3: 40 PM INGOT STRIPPER documented as of this encounter Miscellaneous Notes * Telephone Encounter - Michelle Walker - 08/02/2016 3:30 PM CDT See [employer] message below. * Telephone Encounter - Hillary Unger MD - 07/26/2016 3:48 PM CDT It doesn't work if she sees somebody else. I will give her refills until she comes documented in this encounter Plan of Treatment Not on file documented as of this encounter Visit Diagnoses Not on filedocumented in this encounter Additional Health Concerns Assessment Noted Time PHQ-9 Depression Total Score: 7 07/14/19 17 7:14 AM INGOT STRIPPER documented as of this encounter Care Teams Educational Administration Teacher Relationship Specialty Start Date End Date Hillary Unger MD [address] [place] [address] PCP - General Internal Medicine 08/21/15 08/05/18 Nelson Arroyo PA-C [address] [place] [address] PCP - Assigned PCP 04/12/18 05/02/18 Hillary Unger MD [address] [place], [place] 29[address] PCP - Assigned PCP 02/01/18 04/11/18 Hillary Unger MD [address] [place] [address] PCP - Assigned PCP 05/03/18 07/07/18 Nelson Arroyo PA-C [address] [place] [address] PCP - General Physician Statistical Developer - Medical 08/06/18 Salina Doherty MD Internal Medicine 12/01/14 Carrillo Ware APRN SUPERVISOR TREE TRIMMING [address] [place] [address] Nurse Practitioner Nurse Practitioner 12/16/14 Angelica Jerez NP [facility] [address] [place], [place] [address] Nurse Practitioner Nurse Practitioner - Family 07/12/16 Hillary Unger MD [address] [place], [place] [address] Assigned PCP 05/03/18 07/18/18 Nelson Arroyo PA-C [address] [place] [address] Assigned PCP 07/05/18 07/29/20 Chinyere Barbour Personal Advocate & Liaison (PAL) 01/31/20 04/26/20 Nelson Arroyo PA-C [address] [place] [address] Assigned PCP 07/30/20 Pietro Wills MD [address] [address] Assigned Heart and Vascular Provider 12/14/22 Tank Bucio MD [address], [address] [place] [address] Physician student life dean 12/01/23 documented as of this encounter
--- OUTSIDE RECORDS SUMMARY | 2024-06-02 17:01 | XMS_ITS | Encounter Summary ---
Author Organization [place] [facility] Address [address] [place] [address]. [place] [address] Care Team Providers Care Esl Instructional Assistant Name Role Phone Salina Doherty MD Unavailable Carrillo Ware APRN SEO TEAM LEAD Unavailable SolitarioAngelica golden NP Unavailable [phone] Nelson Arroyo PA-C Primary Care Provider Nelson Arroyo PA-C Unavailable Pietro Wills MD Unavailable [phone] Tank Bucio MD Unavailable Reason for Visit * Reason Comments Medication Refill Encounter Details Date Type Department Care Team (Late st Contact Info) Description 06/15/2022 Refill [facility] [address] [place] [address] Nelson Arroyo PA-C [address] [place] [address] Medication Refill Social History Tobacco [...] PM CDT 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:44 AM MERIT SYSTEM DIRECTOR Gender Identity Female 10/03/2020 8:33 PM CDT Sexual Orientation Straight 07/01/2018 3: 40 PM MERIT SYSTEM DIRECTOR documented as of this encounter Miscellaneous Notes * Telephone Encounter - Nelson Arroyo PA-C - 06/19/2022 10:50 AM MERIT SYSTEM DIRECTOR I think she established care elsewhere. Nelson T SYSTEM DIRECTOR * Telephone Encounter - Ashely Naylor RN - 06/16/2022 3:17 PM CST Routing refill request to provider for review/approval because: Drug not on the [facility] refill protocol T SYSTEM DIRECTOR documented in this encounter Plan of Treatment Not on file documented as of this encounter Visit Diagnoses Diagnosis Muscle spasm Spasm of muscle documented in this encounter Additional Health Concerns Assessment Noted Time PHQ-9 Depression Total Score: 7 10/23/19 22 11:44 AM CDT documented as of this encounter Care Teams Esl Instructional Assistant Relationship Specialty Start Date End Date Nelson Arroyo PA-C [address] [place] [address] PCP - General Physician Brand Sales Manager - Medical 08/06/18 Salina Doherty MD Internal Medicine 12/01/14 Carrillo Ware APRN SEO TEAM LEAD [address] [place] [address] Nurse Practitioner Nurse Practitioner 12/16/14 Angelica Jerez NP [address] [place] [address] Nurse Practitioner Nurse Practitioner - Family 07/12/16 Nelson Arroyo PA-C [address] [address] [place] [address] Assigned PCP 07/30/20 Pietro Wills MD [address] [place] [address] Assigned Heart and Vascular Provider 12/14/22 Tank Bucio MD [address], [address] [place] [address] Physician wafer fabrication technician 12/01/23 documented as of this encounter
--- OUTSIDE RECORDS SUMMARY | 2024-06-02 17:01 | XMS_ITS | Encounter Summary ---
Author Organization [facility] Address [address] [place] [address]. [place] [address] Care Team Providers Care Telecommunications Operator Name Role Phone Salina Doherty MD Unavailable Carrillo Ware APRN SCREWHEAD POLISHER Unavailable SolitarioAngelica golden NP Unavailable [phone] Nelson Arroyo PA-C Primary Care Provider Nelson Arroyo PA-C Unavailable [phone] Pietro Wills MD Unavailable Tank Bucio MD Unavailable Reason for Visit * Reason Comments Medication Refill Encounter Details Date Type Department Care Team (Late st Contact Info) Description 06/29/2023 Refill [facility] [address] [place] [address] [place] [address] [place] [address] Medication Refill Social History Tobacco Use Types Packs/Day Years Used Date Smoking Tobacco: Former Cigarettes 0.5 2.8 0 06/05/2012 - 03/09/2015 Smokeless Tobacco: Never Quit: 06/01/2014 Comments:Started 17 y/o Alcohol Use Standard Drinks/Week Comments Yes 0 (1 standard drink = 0.6 oz pur e alcohol) Occasionally PHQ-2 Answer Date Recorded PHQ-2 Score 1 03/31/2023 Adolescent Education Answer Date Record ed Getting School Help Needed Not on file 01/29 Food Insecurity Answer Date Recorded Within the past 12 months, d id you worry that your food would run out before you got money to buy more? No 03/31/2023 Within the past 12 months, d id the food you bought just not last and you didn t have money to get more? No 03/31/2023 Housing Stability Answer Date Recorded Do you have housing? (Marina santiago is defined as stable permanent housing and does not include staying ouside in a car, in a tent, in an abandoned building, in an overnight senior care, or couch-surfing.) Yes 03/31/2023 Are you worried about losing your housing? No 03/31/2023 Financial Resource Strain Answer Date R ecorded Within the past 12 months, h ave you or your family members you live with been unable to get utilities (heat, electricity) when it was really needed? No 03/31/2023 Transportation Needs Answer Date Record ed Within the past 12 months, h as lack of transportation kept you from medical appointments, getting your medicines, non-medical meetings or appointments, work, or from getting things that you need? No 03/31/2023 Interpersonal Safety Answer Date Record ed Do you feel physically and e motionally safe where you currently live? Yes 03/31/2023 Within the past 12 months, h ave you been hit, slapped, kicked or otherwise physically hurt by someone? No 03/31/2023 Within the past 12 months, h ave you been humiliated or emotionally abused in other ways by your partner or ex-partner? No 03/31/2023 Comments No Sex and Gender Information Value Date Recorded Sex Assigned at Female 10/03/2020 8:33 PM CDT 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:44 AM SHAMPOO ASSISTANT Gender Identity Female 10/03/2020 8:33 PM CDT Sexual Orientation Straight 07/01/2018 3: 40 PM SHAMPOO ASSISTANT documented as of this encounter Miscellaneous Notes * Telephone Encounter - Mary Fragoso - 06/30/2023 1:18 PM CST LVM & sent MCM to advise pt to follow up with psych provider for rx. Mary Lorenzana Scouts POO ASSISTANT * Telephone Encounter - Nelson Arroyo PA-C - 06/30/2023 11:03 AM SHAMPOO ASSISTANT I think she see's Psych for this. Nelson POO ASSISTANT documented in this encounter Plan of Treatment Not on file documented as of this encounter Visit Diagnoses Diagnosis Generalized anxiety disorder documented in this encounter Additional Health Concerns Assessment Noted Time PHQ-9 Depression Total Score: 8 03/31/20 23 1:09 PM SHAMPOO ASSISTANT documented as of this encounter Care Teams Telecommunications Operator Relationship Specialty Start Date End Date Nelson Arroyo PA-C [address] [place] [address] PCP - General Physician Shovel Oiler - Medical 08/06/18 Salina Doherty MD Internal Medicine 12/01/14 Carrillo Ware APRN CNP [address] [place] [id number] Nurse Practitioner Nurse Practitioner 12/16/14 Angelica Jerez NP [place] [address] [place], [place] 234817 Nurse Practitioner Nurse Practitioner - Family 07/12/16 Nelson Arroyo PA-C [address] [address] Assigned PCP 07/30/20 Pietro Wills MD [address] [address] Assigned Heart and Vascular Provider 12/14/22 Tank Bucio MD [address] [address] Physician infection control rn 12/01/23 documented as of this encounter
--- OUTSIDE RECORDS SUMMARY | 2024-06-02 17:01 | XMS_ITS | Encounter Summary ---
Author Organization [place] Address [address] [place] [address]. [place] [address] Care Team Providers Care Two Needle Machine Operator Name Role Phone Salina Doherty MD Unavailable [phone] Carrillo Ware APRN PRESIDENT ERGONOMIC CONSULTING Unavailable SolitarioAngelica golden NP Unavailable [phone] Nelson Arroyo PA-C Primary Care Provider Nelson Arroyo PA-C Unavailable [phone] Pierto Wills MD Unavailable Tank Bucio MD Unavailable Reason for Visit * Reason Comments Medication Refill Encounter Details Date Type Department Care Team (Late st Contact Info) Description 11/08/2022 Refill [facility] [address] [place] [address] Nelson Arroyo PA-C [address] [place] [address] Medication Refill Social History Tobacco [...] PM CDT 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:44 AM MARKET RESEARCH SENIOR PROJECT MANAGER Gender Identity Female 10/03/2020 8:33 PM CDT Sexual Orientation Straight 07/01/2018 3: 40 PM MARKET RESEARCH SENIOR PROJECT MANAGER documented as of this encounter Miscellaneous Notes * Telephone Encounter - Concepción Gonzalez APRN CNP - 11/08/2022 10:52 AM CDT I'm not sure if this is to be a chronic, long standing med? Looks like use has increased the last few months and is using 120# a month? AP to address when back in clinic. Concepción Gonzalez CNP * Telephone Encounter - Rae Hernandez RN - 11/08/2022 10:22 AM CDT Routing refill request to provider for review/approval because: Drug not on the [facility] refill protocol Rae Hernandez RN, BSN [facility] documented in this encounter Plan of Treatment Not on file documented as of this encounter Visit Diagnoses Diagnosis Muscle spasm Spasm of muscle documented in this encounter Additional Health Concerns Assessment Noted Time PHQ-9 Depression Total Score: 6 08/16/19 23 12:42 PM CDT documented as of this encounter Care Teams Two Needle Machine Operator Relationship Specialty Start Date End Date Nelson Arroyo PA-C [address] [place] [address] PCP - General Physician Linux Programmer - Medical 08/06/18 Salina Doherty MD Internal Medicine 12/01/14 Carrillo Ware APRN PRESIDENT ERGONOMIC CONSULTING NPI: [id number] [place] [address] Nurse Practitioner Nurse Practitioner 12/16/14 Angelica Jerez NP [facility] [address] [place] [address] Nurse Practitioner Nurse Practitioner - Family 07/12/16 Nelson Arroyo PA-C [address] [place] [address] Assigned PCP 07/30/20 Pietro Wills MD [address] [place] [address] Assigned Heart and Vascular Provider 12/14/22 Tank Bucio MD [address] [facility] [address] [place] [address] Physician fixture builder 12/01/23 documented as of this encounter
--- OUTSIDE RECORDS SUMMARY | 2024-06-02 17:01 | XMS_ITS | Encounter Summary ---
Author Organization [facility] Address [address] [place] [address]. [place] [address] Care Team Providers Care Newspaper Peddler Name Role Phone Salina Doherty MD Unavailable Carrillo Ware APRN DUMPMAN Unavailable SolitarioAngelica golden NP Unavailable [phone] Nelson Arroyo PA-C Primary Care Provider [phone] Nelson Arroyo PA-C Unavailable [phone] Pietro Wills MD Unavailable Tank Bucio MD Unavailable [phone] Encounter Details Date Type Department Care Team (Late st Contact Info) Description 06/26/2022 MyC Medical Advice [facility] [address] [place] [address] Nelson Arroyo PA-C [address] [place] [address] Muscle spasm; Palpitations Social History Tobacco Use Types Packs/Day Years [...] PM CDT 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:44 AM FIRE WARDEN Gender Identity Female 10/03/2020 8:33 PM CDT Sexual Orientation Straight 07/01/2018 3: 40 PM FIRE WARDEN documented as of this encounter Miscellaneous Notes * Telephone Encounter - Amanda Unger - 06/28/2022 7:52 AM CST Patient is scheduled for 08/15 with PCP WARDEN * Telephone Encounter - Nelson Arroyo PA-C - 06/27/2022 2:51 PM FIRE WARDEN [facility] If I'm wrong I apologize. I do need to seeher for an appointment however as it has been a long while! Nelson WARDEN * Telephone Encounter - Ashely Naylor RN - 06/27/2022 7:41 AM CST Routing refill request to provider for review/approval because: Drug not on the [facility] refill protocol WARDEN documented in this encounter Plan of Treatment Not on file documented as of this encounter Visit Diagnoses Diagnosis Muscle spasm Spasm of muscle Palpitations documented in this encounter Additional Health Concerns Assessment Noted Time PHQ-9 Depression Total Score: 7 10/23/19 22 11:44 AM CDT documented as of this encounter Care Teams Newspaper Peddler Relationship Specialty Start Date End Date Nelson Arroyo PA-C [address] [address] PCP - General Physician Paper Stacker - Medical 08/06/18 Salina Doherty MD Internal Medicine 12/01/14 Carrillo Ware APRN DUMPMAN [address] [place] [address] Nurse Practitioner Nurse Practitioner 12/16/14 Angelica Jerez NP [facility] [address] [place], [place] [address] Nurse Practitioner Nurse Practitioner - Family 07/12/16 Nelson Arroyo PA-C [address] [place] [address] Assigned PCP 07/30/20 Pietro Wills MD [address] [place] [address] Assigned Heart and Vascular Provider 12/14/22 Tank Bucio MD [address] [facility] [address] [address] Physician floor surfacer 12/01/23 documented as of this encounter
--- OUTSIDE RECORDS SUMMARY | 2024-06-02 17:01 | XMS_ITS | Encounter Summary ---
Author Organization [facility] Address [address] [place] [address] Care Team Providers Care Marketing Operations Coordinator Name Role Phone Salina Doherty MD Unavailable [phone] Carrillo Ware APRN ELECTRO MECHANICAL ENGINEER Unavailable Hillary Unger MD Primary Care P rovider Nelson Arroyo PA-C Primary Care Provider +[phone] Hillary Unger MD Primary Care P rovider Angelica Jerez NP Unavailable [phone] Nelson Arroyo PA-C Unavailable [phone] Hillary Unger MD Unavailable Hillary Unger MD Unavailable Hillary Unger MD Unavailable Nelson Arroyo PA-C Unavailable [phone] Nelson Arroyo PA-C Primary Care Provider +[phone]- Chinyere Barbour Unavailable Unavailable Nelson Arroyo PA-C Unavailable [phone] Pietro Wills MD Unavailable [phone] Tank Bucio MD Unavailable + [phone] Reason for Visit * Reason Onset Date Comments Refill Request 06/07/2015 Control Encounter Details Date Type Department Care Team (Late st Contact Info) Description 06/07/2015 MyC Refill [address], [address] [place] [address] Nelson Arroyo PA-C [address] [facility] [place] [address] Refill Request ( Control) Social History Tobacco Use Types Packs/Day Years [...] 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:44 AM DIRECTOR OF GOVERNMENT SALES Gender Identity Female 10/03/2020 8:33 PM CDT Sexual Orientation Straight 07/01/2018 3: 40 PM DIRECTOR OF GOVERNMENT SALES documented as of this encounter Miscellaneous Notes * Telephone Encounter - Maude Singh RN - 06/07/2015 1:12 PM CST Prescription approved per [facility] Refill Protocol. Maude Singh RN CTOR OF GOVERNMENT SALES * Telephone Encounter - Maude Singh RN - 06/07/2015 1:11 PM CSTMessage from MyChart: Original authorizing provider: RO Choudhury would like a refill of the following medications: levonorgestrel-ethinyl estradiol (FIDEL PALOMO LESSINA) 0.1-20 MG-MCG per tablet [Nelson Arroyo PA-C] Preferred pharmacy: [facility] [address] [place] [address] ROGELIO HERNANDEZ Comment: CTOR OF GOVERNMENT SALES documented in this encounter Plan of Treatment Not on file documented as of this encounter Visit Diagnoses Diagnosis Encounter for surveillance of contraceptive pills Surveillance of previously prescribed contraceptive pill documented in this encounter Care Teams Marketing Operations Coordinator Relationship Specialty Start Date End Date Hillary Unger MD [address] [place] [address] PCP - General Internal Medicine 01/05/15 08/02/15 Nelson Arroyo PA-C [address] [place] [address] PCP - General Physician Medical Translator - Medical 08/03/15 08/20/15 Hillary Unger MD [address] [place] [address] PCP - General Internal Medicine 08/21/15 08/05/18 Nelson Arroyo PA-C [address] [address] PCP - Assigned PCP 04/12/18 05/02/18 Hillary Unger MD [address] [place] [address] PCP - Assigned PCP 02/01/18 04/11/18 Hillary Unger MD [address] [place] [address] PCP - Assigned PCP 05/03/18 07/07/18 Nelson Arroyo PA-C [address] [address] PCP - General Physician Medical Translator - Medical 08/06/18 Salina Doherty MD Internal Medicine 12/01/14 Carrillo Ware APRN ELECTRO MECHANICAL ENGINEER [address] [place] [address] 730915 Nurse Practitioner Nurse Practitioner 12/16/14 Angelica Jerez NP [facility] [address] [place], [place] [id number] Nurse Practitioner Nurse Practitioner - Family 07/12/16 Hillary Unger MD [address] [place], [place] 040[address] Assigned PCP 05/03/18 07/18/18 Nelson Arroyo PA-C [address] [place] [address] Assigned PCP 07/05/18 07/29/20 Chinyere Barbour Personal Advocate & Liaison (PAL) 01/31/20 04/26/20 Nelson Arroyo PA-C [address] [place] [address] Assigned PCP 07/30/20 Pietro Wills MD [address] [address] Assigned Heart and Vascular Provider 12/14/22 Tank Bucio MD [address], [address] [address] Physician director of learning 12/01/23 documented as of this encounter
--- OUTSIDE RECORDS SUMMARY | 2024-06-02 17:01 | XMS_ITS | Encounter Summary ---
Author Organization [facility] Address [address] [place] [address]. [place] [address] Care Team Providers Care De Ionizer Operator Name Role Phone Salina Doherty MD Unavailable Carrillo Ware APRN MOBILE HEAVY EQUIPMENT MECHANIC Unavailable [phone] SolitarioAngelica golden NP Unavailable [phone] Nelson Arroyo PA-C Primary Care Provider Nelson Arroyo PA-C Unavailable Pietro Wills MD Unavailable Tank Bucio MD Unavailable Reason for Visit * Reason Comments Medication Refill Encounter Details Date Type Department Care Team (Late st Contact Info) Description 05/29/2022 Refill [facility] [address] [place] [address] Nelson Arroyo PA-C [address] [place] [address] Medication Refill Social History Tobacco [...] PM CDT 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:44 AM FLOOR LAYER Gender Identity Female 10/03/2020 8:33 PM CDT Sexual Orientation Straight 07/01/2018 3: 40 PM FLOOR LAYER documented as of this encounter Miscellaneous Notes * Telephone Encounter - Amanda Unger - 05/29/2022 3:54 PM CST LMTCB Amanda Unger C Architect R LAYER * Telephone Encounter - Nelson Arroyo PA-C - 05/29/2022 3:50 PM FLOOR LAYER I think she is going to [facility] now. She will need to contact them for refill. Nelson R LAYER * Telephone Encounter - Tiny Carrillo RN - 05/29/2022 12:14 PM FLOOR LAYER Routing refill request to provider for review/approval because: Drug not on the [facility] refill protocol R LAYER documented in this encounter Plan of Treatment Not on file documented as of this encounter Visit Diagnoses Diagnosis Muscle spasm Spasm of muscle documented in this encounter Additional Health Concerns Assessment Noted Time PHQ-9 Depression Total Score: 7 10/23/19 22 11:44 AM CDT documented as of this encounter Care Teams De Ionizer Operator Relationship Specialty Start Date End Date Nelson Arroyo PA-C [address] [address] PCP - General Physician Cancer Program Coordinator - Medical 08/06/18 Salina Doherty MD Internal Medicine 12/01/14 Carrillo Ware APRN MOBILE HEAVY EQUIPMENT MECHANIC [address] [place] [address] Nurse Practitioner Nurse Practitioner 12/16/14 Angelica Jerez NP [facility] [address] [place], [place] [address] Nurse Practitioner Nurse Practitioner - Family 07/12/16 Nelson Arroyo PA-C [address] [place] [address] Assigned PCP 07/30/20 Pietro Wills MD [address] [place] [address] Assigned Heart and Vascular Provider 12/14/22 Tank Bucio [facility] [address] [facility] [address] [place] [address] Physician rubber cutter and shape carver 12/01/23 documented as of this encounter
--- OUTSIDE RECORDS SUMMARY | 2024-06-02 17:01 | XMS_ITS | Encounter Summary ---
Author Organization [place] Address [address] [place] [address] Care Team Providers Care Assistant Public Defender Name Role Phone Salina Doherty MD Unavailable [phone] Carrillo Ware APRN LABOR RELATIONS TEACHER Unavailable Hillary Unger MD Primary Care P rovider Nelson Arroyo PA-C Primary Care Provider +[phone] Hillary Unger MD Primary Care P rovider Angelica Jerez NP Unavailable [phone] Nelson Arroyo PA-C Unavailable [phone] Hillary Unger MD Unavailable Hillary Unger MD Unavailable Hillary Unger MD Unavailable Nelson Arroyo PA-C Unavailable + Nelson Arroyo PA-C Primary Care Provider +1- Chinyere Barbour Unavailable Unavailable Nelson Arroyo PA-C Unavailable [phone] Pietro Wills MD Unavailable [phone] Tank Bucio MD Unavailable + [phone] Encounter Details Date Type Department Care Team (Late st Contact Info) Description 05/14/2015 MyC Medical Advice [address], [address] [place] [address] Nelson Arroyo PA-C [address] [place] [address] Social History Tobacco Use Types Packs/Day Years [...] CDT 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:44 AM MARINE MACHINIST Gender Identity Female 10/03/2020 8:33 PM CDT Sexual Orientation Straight 07/01/2018 3: 40 PM MARINE MACHINIST documented as of this encounter Plan of Treatment Not on file documented as of this encounter Visit Diagnoses Not on filedocumented in this encounter Care Teams Assistant Public Defender Relationship Specialty Start Date End Date Hillary Unger MD [address] [place] [address] PCP - General Internal Medicine 01/05/15 08/02/15 Nelson Arroyo PA-C [address] [place] [address] PCP - General Physician Solids Control Technician - Medical 08/03/15 08/20/15 Hillary Unger MD [address] [place] [address] PCP - General Internal Medicine 08/21/15 08/05/18 Nelson Arroyo PA-C [address] [place] [address] PCP - Assigned PCP 04/12/18 05/02/18 Hillary Unger MD [address] [place], [place] [address]237 PCP - Assigned PCP 02/01/18 04/11/18 Hillary Unger MD [address] [place] [address] PCP - Assigned PCP 05/03/18 07/07/18 Nelson Arroyo PA-C [address] [place] [address] PCP - General Physician Solids Control Technician - Medical 08/06/18 Salina Doherty MD Internal Medicine 12/01/14 Carrillo Ware APRN LABOR RELATIONS TEACHER [address] [place] [address] 538705 Nurse Practitioner Nurse Practitioner 12/16/14 Angelica Jerez NP [facility] [address] [place] [address] Nurse Practitioner Nurse Practitioner - Family 07/12/16 Hillary Unger MD [address] [place] [address] Assigned PCP 05/03/18 07/18/18 Nelson Arroyo PA-C [address] [address] Assigned PCP 07/05/18 07/29/20 Chinyere Barbour Personal Advocate & Liaison (PAL) 01/31/20 04/26/20 Nelson Arroyo PA-C [address] [address] Assigned PCP 07/30/20 Pietro Wills MD [address] [place] [address] Assigned Heart and Vascular Provider 12/14/22 Tank Bucio MD [address], [address] [address] Physician transportation technician 12/01/23 documented as of this encounter
--- OUTSIDE RECORDS SUMMARY | 2024-06-02 17:01 | XMS_ITS | Encounter Summary ---
Author Organization [facility] Address [address] [place] [address] Care Team Providers Care Chief Technology Officer Name Role Phone Salina Doherty MD Unavailable [phone] Carrillo Ware APRN DAY CARE TEACHER Unavailable Hillary Unger MD Primary Care P rovider [facility] ClaytonAngelica NP Unavailable Nelson Arroyo PA-C Unavailable [phone] Hillary Unger MD Unavailable Hillary Unger MD Unavailable Hillary Unger MD Unavailable Nelson Arroyo PA-C Unavailable [phone] Nelson Arroyo PA-C Primary Care Provider [phone] Chinyere Barbour Unavailable Unavailable Nelson Arroyo PA-C Unavailable [phone] Pietro Wills MD Unavailable [phone] Tank Bucio MD Unavailable [phone] Reason for Visit * Reason Onset Date Comments MyChart Communication 08/26/2016 Encounter Details Date Type Department Care Team (Late st Contact Info) Description 08/26/[address] [place] [address] Hillary Unger MD [address] [place] [address] MyChart Communication Social History Tobacco Use Types [...] PM CDT 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:44 AM PRESCRIPTION EYEGLASS MAKER Gender Identity Female 10/03/2020 8:33 PM CDT Sexual Orientation Straight 07/01/2018 3: 40 PM PRESCRIPTION EYEGLASS MAKER documented as of this encounter Miscellaneous Notes * Telephone Encounter - Cheyanne Garcia RN - 08/26/2016 3:[address] Doherty, can see pt today @ 3:20. Left message for pt to call back. documented in this encounter Plan of Treatment Not on file documented as of this encounter Visit Diagnoses Not on filedocumented in this encounter Additional Health Concerns Assessment Noted Time PHQ-9 Depression Total Score: 7 07/14/19 17 7:14 AM PRESCRIPTION EYEGLASS MAKER documented as of this encounter Care Teams Chief Technology Officer Relationship Specialty Start Date End Date Hillary Unger MD [address] [place] [address] PCP - General Internal Medicine 08/21/15 08/05/18 Nelson Arroyo PA-C [address] [place] [address] PCP - Assigned PCP 04/12/18 05/02/18 Hillary Unger MD [address] [place] [address] PCP - Assigned PCP 02/01/18 04/11/18 Hillary Unger MD [address] [place] [address] PCP - Assigned PCP 05/03/18 07/07/18 Nelson Arroyo PA-C [address] [place] [address] PCP - General Physician Song Plugger - Medical 08/06/18 Salina Doherty MD Internal Medicine 12/01/14 Carrillo Ware APRN DAY CARE TEACHER [address] [place] [address] Nurse Practitioner Nurse Practitioner 12/16/14 Angelica Jerez NP [facility] [address] [place] [address] Nurse Practitioner Nurse Practitioner - Family 07/12/16 Hillary Unger MD [address] [place] [address] Assigned PCP 05/03/18 07/18/18 Nelson Arroyo PA-C [address] [address] Assigned PCP 07/05/18 07/29/20 Chinyere Barbour Personal Advocate & Liaison (PAL) 01/31/20 04/26/20 Nelson Arroyo PA-C [address] [id number] Assigned PCP 07/30/20 Pietro Wills MD [address] 683765 Assigned Heart and Vascular Provider 12/14/22 Tank Bucio MD [address] [facility] [address] [place], [place] [address] Physician solar manager 12/01/23 documented as of this encounter
--- OUTSIDE RECORDS SUMMARY | 2024-06-02 17:01 | XMS_ITS | Encounter Summary ---
Author Organization [facility] Address [address] [place] [address]. [place] [address] Care Team Providers Care Industrial Editor Name Role Phone Salina Doherty MD Unavailable [phone] Carrillo Ware APRN FILM VAULT SUPERVISOR Unavailable SolitarioAngelica golden NP Unavailable [phone] Nelson Arroyo PA-C Primary Care Provider Nelson Arroyo PA-C Unavailable Pietro Wills MD Unavailable Tank Bucio MD Unavailable [phone] Encounter Details Date Type Department Care Team (Late st Contact Info) Description 07/30/2023 MyC Medical Advice [facility] [address] [place] [address] Nelson Arroyo PA-C [address] [place] [address] Social History Tobacco Use Types [...] in an abandoned building, in an overnight skilled nursing, or couch-surfing.) Yes 03/31/2023 Are you worried [...] PM CDT 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:44 AM ENGINEERING DESIGN MANAGER Gender Identity Female 10/03/2020 8:33 PM CDT Sexual Orientation Straight 07/01/2018 3: 40 PM ENGINEERING DESIGN MANAGER documented as of this encounter Miscellaneous Notes * Telephone Encounter - Kay Zambrano RN - 07/30/2023 5:53 PM CDT Will forward to Nelson Arroyo. documented in this encounter Plan of Treatment Not on file documented as of this encounter Visit Diagnoses Not on filedocumented in this encounter Additional Health Concerns Assessment Noted Time PHQ-9 Depression Total Score: 8 03/31/20 23 1:09 PM ENGINEERING DESIGN MANAGER documented as of this encounter Care Teams Industrial Editor Relationship Specialty Start Date End Date Nelson Arroyo PA-C [address] [place] [address] PCP - General Physician Grand Scribe - Medical 08/06/18 Salina Doherty MD Internal Medicine 12/01/14 Carrillo Ware APRN FILM VAULT SUPERVISOR [address] [place] [address]99405 Nurse Practitioner Nurse Practitioner 12/16/14 Angelica Jerez NP [facility] [address] [place], [place] [address] Nurse Practitioner Nurse Practitioner - Family 07/12/16 Nelson Arroyo PA-C [address] [place] [address] Assigned PCP 07/30/20 Pietro Wills MD [address] [place] [address] Assigned Heart and Vascular Provider 12/14/22 Tank Bucio MD [address], [address] [address] Physician field training agent 12/01/23 documented as of this encounter
--- OUTSIDE RECORDS SUMMARY | 2024-06-02 17:01 | XMS_ITS | Encounter Summary ---
Author Organization [place] [facility] Address [address] [place] [address] Care Team Providers Care Survival Equipment Repairer Name Role Phone Salina Doherty MD Unavailable [phone] Carrillo Ware APRN DIGITAL ARCHIVIST Unavailable Hillary Unger MD Primary Care P rovider [facility] Center[facility] NP Unavailable [phone] Nelson Arroyo PA-C Unavailable [phone] Hillary Unger MD Unavailable Hillary Unger MD Unavailable Hillary Unger MD Unavailable Nelson Arroyo PA-C Unavailable [phone] Nelson Arroyo PA-C Primary Care Provider [phone] Chinyere Barbour Unavailable Unavailable Nelson Arroyo PA-C Unavailable [phone] Pietro Wills MD Unavailable [phone] Tank Bucio MD Unavailable [phone] Reason for Visit * Reason Onset Date Comments Refill Request 10/02/2016 Encounter Details Date Type Department Care Team (Late st Contact Info) Description 10/02/2016 [facility] [address] [place] [phone] [place] [address] [place] [address] Refill Request Social History Tobacco Use Types [...] 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:44 AM DIRECTOR OF GROUP SALES Gender Identity Female 10/03/2020 8:33 PM CDT Sexual Orientation Straight 07/01/2018 3: 40 PM DIRECTOR OF GROUP SALES documented as of this encounter Miscellaneous Notes * Telephone Encounter - Mariella Patterson RN - 10/03/2016 10:10 AM CDTMessage from [facility]: Original authorizing provider: JACQUE Novak would like a refill of the following medications: buPROPion (WELLBUTRIN XL) 150 MG 24 hr tablet [Angelica Jerez NP] gabapentin (NEURONTIN) 100 MG capsule [Angelica Jerez NP] Preferred pharmacy: [address] Comment: Medication renewals requested in this message routed to other providers: amphetamine-dextroamphetamine (ADDERALL) 10 MG per tablet [Hillary Unger MD] documented in this encounter Plan of Treatment Not on file documented as of this encounter Visit Diagnoses Diagnosis SHANTELL (generalized anxiety disorder) Generalized anxiety disorder Persistent insomnia Persistent disorder of initiating or maintaining sleep documented in this encounter Additional Health Concerns Assessment Noted Time PHQ-9 Depression Total Score: 8 09/01/19 17 7:09 AM CDT documented as of this encounter Care Teams Survival Equipment Repairer Relationship Specialty Start Date End Date Hillary Unger MD [address] [facility] [address] PCP - General Internal Medicine 08/21/15 08/05/18 Nelson Arroyo PA-C [address] [place] [address] PCP - Assigned PCP 04/12/18 05/02/18 Hillary Unger MD [address] [place] [address] PCP - Assigned PCP 02/01/18 04/11/18 Hillary Ungre MD [address] [place] [address] PCP - Assigned PCP 05/03/18 07/07/18 Nelson Arroyo PA-C [address] [place] [address] PCP - General Physician Fitter Tacker - Medical 08/06/18 Salina Doherty MD Internal Medicine 12/01/14 Carrillo Ware APRN DIGITAL ARCHIVIST [address] [place] [address]78405 Nurse Practitioner Nurse Practitioner 12/16/14 Angelica Jerez NP [facility] [address] [place], [place] [address] Nurse Practitioner Nurse Practitioner - Family 07/12/16 Hillary Unger MD [address] [place] [address] Assigned PCP 05/03/18 07/18/18 Nelson Arroyo PA-C [address] [place] [address] Assigned PCP 07/05/18 07/29/20 Chinyere Barbour Personal Advocate & Liaison (PAL) 01/31/20 04/26/20 Nelson Arroyo PA-C [address] [place] [address] Assigned PCP 07/30/20 Pietro Wills MD [address] [place] [address] Assigned Heart and Vascular Provider 12/14/22 Tank Bucio MD [address], [facility] [address] [place] [address] Physician tanbark laborer 12/01/23 documented as of this encounter
--- OUTSIDE RECORDS SUMMARY | 2024-06-02 17:01 | XMS_ITS | Encounter Summary ---
Author Organization [facility] Address [address] [place] [address]. [place] [address] Care Team Providers Care Color Matcher Name Role Phone Salina Doherty MD Unavailable [phone] Carrillo Ware APRN INSURANCE MARKETING SPECIALIST Unavailable SolitarioAngelica golden NP Unavailable [phone] Nelson Arroyo PA-C Unavailable Nelson Arroyo PA-C Primary Care Provider [phone] Chinyere Barbour Unavailable Unavailable Nelson Arroyo PA-C Unavailable Pietro Wills MD Unavailable [phone] Tank Bucio MD Unavailable Reason for Visit * Reason Onset Date Comments Refill Request 08/30/2019 Encounter Details Date Type Department Care Team (Late st Contact Info) Description 08/30/2019 MyC Refill [facility] [address], [address] [place] [address] Nelson Arroyo PA-C [address] [place] [address] Refill Request Social History Tobacco [...] CDT 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:44 AM AUTO BODY CUSTOMIZER Gender Identity Female 10/03/2020 8:33 PM CDT Sexual Orientation Straight 07/01/2018 3: 40 PM AUTO BODY CUSTOMIZER documented as of this encounter Miscellaneous Notes * Telephone Encounter - Nelson Arroyo PA-C - 09/01/2019 4:03 PM CDT Unless I did something wrong with the Rx's in Jun she should have some on file for August to last tothe end of September? Please check with patient and/or pharmacy. Nelson * Telephone Encounter - Ana Pinto RN - 08/31/2019 3:43 PM CDT Routing refill request to provider for review/approval because: Drug not on the [facility] refill protocol Ana Pinto RN, BSN documented in this encounter Plan of Treatment Not on file documented as of this encounter 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), predominantly inattentive type documented in this encounter Additional Health Concerns Assessment Noted Time PHQ-9 Depression Total Score: 10 020 3:04 PM AUTO BODY CUSTOMIZER documented as of this encounter Care Teams Color Matcher Relationship Specialty Start Date End Date Nelson Arroyo PA-C [address] [address] PCP - General Physician Generator Repairer - Medical 08/06/18 Salina Doherty MD Internal Medicine 12/01/14 Carrillo Ware APRN INSURANCE MARKETING SPECIALIST [address] [place] [address] Nurse Practitioner Nurse Practitioner 12/16/14 Angelica Jerez NP [facility] [address] [place] [address] Nurse Practitioner Nurse Practitioner - Family 07/12/16 Nelson Arroyo PA-C [address] [place] [address] Assigned PCP 07/05/18 07/29/20 Chinyere Barboru Personal Advocate & Liaison (PAL) 01/31/20 04/26/20 Nelson Arroyo PA-C [address] [place] [address] Assigned PCP 07/30/20 Pietro Wills MD [address] [place] [address] Assigned Heart and Vascular Provider 12/14/22 Tank Bucio MD [address], [facility] [address] [place] [address] Physician machinist set up 12/01/23 documented as of this encounter
--- OUTSIDE RECORDS SUMMARY | 2024-06-02 17:01 | XMS_ITS | Encounter Summary ---
Author Organization [place] Address [address] [place] [address] Care Team Providers Care Developer Designer Name Role Phone Salina Doherty MD Unavailable [phone] Carrillo Ware APRN DINING ROOM ATTENDANT Unavailable SolitarioAngelica golden NP Unavailable [phone] Nelson Arroyo PA-C Primary Care Provider Nelson Arroyo PA-C Unavailable [phone] Pietro Wills MD Unavailable Tank Bucio MD Unavailable [phone] Encounter Details Date Type Department Care Team (Late st Contact Info) Description 10/30/2022 MyC Medical Advice [address] [address] Amanda Unger Social History Tobacco Use Types Packs/Day Years [...] CDT 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:44 AM DIGITAL ANALYST Gender Identity Female 10/03/2020 8:33 PM CDT Sexual Orientation Straight 07/01/2018 3: 40 PM DIGITAL ANALYST documented as of this encounter Plan of Treatment Not on file documented as of this encounter Visit Diagnoses Not on filedocumented in this encounter Additional Health Concerns Assessment Noted Time PHQ-9 Depression Total Score: 6 08/16/19 23 12:42 PM CDT documented as of this encounter Care Teams Developer Designer Relationship Specialty Start Date End Date Nelson Arroyo PA-C [address] [place] [address] PCP - General Physician Newspaper Copy Editor - Medical 08/06/18 Salina Doherty MD Internal Medicine 12/01/14 Carrillo Ware APRN DINING ROOM ATTENDANT [address] [place] [address] [id number] Nurse Practitioner Nurse Practitioner 12/16/14 Angelica Jerez NP [facility] [address] [place], [place] [address] Nurse Practitioner Nurse Practitioner - Family 07/12/16 Nelson Arroyo PA-C [address] [place] [address] Assigned PCP 07/30/20 Pietro Wills MD [address] [place] [address] Assigned Heart and Vascular Provider 12/14/22 Tank Bucio MD [address], [address] [address] Physician photograph enlarger 12/01/23 documented as of this encounter
--- OUTSIDE RECORDS SUMMARY | 2024-06-02 17:01 | XMS_ITS | Encounter Summary ---
Author Organization [place] Address [address] [place] [address] Care Team Providers Care Non Licensed Operator Name Role Phone Salina Doherty MD Unavailable [phone] Carrillo Ware APRN HATCHERY WORKER Unavailable [phone] SolitarioAngelica golden NP Unavailable [phone] Nelson Arroyo PA-C Unavailable [phone] Nelson Arroyo PA-C Primary Care Provider [phone] Chinyere Barbour Unavailable Unavailable Nelson Arroyo PA-C Unavailable [phone] Pietro Wills MD Unavailable [phone] Tank Bucio MD Unavailable [phone] Encounter Details Date Type Department Care Team (Late st Contact Info) Description 09/06/2019 MyC Medical Advice [address] [address] Blanca Baker Social History Tobacco [...] PM CDT 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:44 AM RAIL MAINTENANCE WORKER Gender Identity Female 10/03/2020 8:33 PM CDT Sexual Orientation Straight 07/01/2018 3: 40 PM RAIL MAINTENANCE WORKER documented as of this encounter Plan of Treatment Not on file documented as of this encounter Visit Diagnoses Not on filedocumented in this encounter Additional Health Concerns Assessment Noted Time PHQ-9 Depression Total Score: 10 020 3:04 PM RAIL MAINTENANCE WORKER documented as of this encounter Care Teams Non Licensed Operator Relationship Specialty Start Date End Date Nelson Arroyo PA-C [address] [address] PCP - General Physician Track Template Maker - Medical 08/06/18 Salina Doherty MD Internal Medicine 12/01/14 Carrillo Ware APRN HATCHERY WORKER [address] [place] [address] Nurse Practitioner Nurse Practitioner 12/16/14 Angelica Jerez NP [address] [address] Nurse Practitioner Nurse Practitioner - Family 07/12/16 Nelson Arroyo PA-C [address] [address] Assigned PCP 07/05/18 07/29/20 Chinyere Barbour Personal Advocate & Liaison (PAL) 01/31/20 04/26/20 Nelson Arroyo PA-C [address] [address] Assigned PCP 07/30/20 Pietro Wills MD [address] [place] [address] Assigned Heart and Vascular Provider 12/14/22 Tank Bucio MD [address] [facility] [address] [place] [address] Physician process analyst 12/01/23 documented as of this encounter
--- OUTSIDE RECORDS SUMMARY | 2024-06-02 17:01 | XMS_ITS | Clinical Summary ---
Author Organization [place] Address [address] [place] [address] Care Team Providers Care Technical Document Writer Name Role Phone Salina Doherty MD Unavailable Carrillo Ware APRN PELLETIZER TENDER Unavailable SolitarioAngelica golden NP Unavailable [phone] Nelson Suarez PA-C Primary Care Provider [phone] Nelson Suarez PA-C Unavailable [phone] Pietro Wills MD Unavailable Tank Bucio MD Unavailable Allergies Active Allergy Reactions Criticality Noted Date Comments Diazepam 09/26/2015 hives Sertraline Hcl Other (See Comments) 10/02/2010 Fainting, unable to sleep Medications * This document contains information received from the source organization and may not represent a complete record from that organization. hydrOXYzine (ATARAX) 50 MG tabletIndications :Persistent insomnia TAKE 1 TABLET (50 MG) BY MOUTH EVERY 8 HOURS NEEDED FOR ITCHING 30 tablet 1 1 Active QUEtiapine (SEROQUEL) 300 MG tabletIndications :Generalized anxiety disorder Take 1 tablet (300 mg) by mouth At Bedtime 90 tablet 1 2 Active amphetamine-dextr oamphetamine (ADDERALL) 10 MG tabletIndications :Attention deficit hyperactivity disorder (ADHD), predominantly inattentive type Take 1-2 tablets (10-20 mg) by mouth daily As needed for late day symptoms 60 tablet 2 Active cetirizine (ZYRTEC) 10 MG tabletIndications :Seasonal allergic rhinitis, unspecified trigger TAKE 1 TABLET BY MOUTH EVERY DAY 90 tablet 2 Active lamoTRIgine (LAMICTAL) 150 MG tablet Take 150 mg by mouth 2 Active LORazepam (ATIVAN) 0.5 MG tabletIndications :Generalized anxiety disorder TAKE 1 TABLET BY MOUTH EVERY 6 HOURS NEEDED FOR ANXIETY. 20 tablet 4 Active EPINEPHrine (ANY BX GENERIC EQUIV) 0.3 MG/0.3ML injection 2-packIndications :Allergic reaction, initial encounter INJECT 0.3 MLS (0.3 MG) INTO THE MUSCLE NEEDED FOR ANAPHYLAXIS 2 each 4 Active tretinoin (RETIN-A) 0.05 % external creamIndications: Acne, unspecified acne type SPREAD A PEA SIZE AMOUNT INTO AFFECTED AREA TOPICALLY AT BEDTIME. USE SUNSCREEN SPF>20. 45 g 4 Active guanFACINE (INTUNIV) 2 MG TB24 24 hr tablet Take 2 mg by mouth daily Active tretinoin (RETIN-A) 0.025 % external creamIndications: Acne, unspecified acne type Apply topically at bedtime. 45 g 1 4 Active tiZANidine (ZANAFLEX) 4 MG tabletIndications :Muscle spasm TAKE 1 TAB BY MOUTH 4 TIMES DAILY NEEDED FOR MUSCLE SPASMS. TAKE NIGHTLY 120 tablet 2 4 Active metoprolol succinate ER (TOPROL XL) 50 MG 24 hr tabletIndications :Elevated blood pressure reading without diagnosis of hypertension Take 1 tablet (50 mg) by mouth 2 times daily. 180 tablet 4 Active Active Problems Problem Noted Date Diagnosed Date Major depressive disorder, recurrent episode, se liyah 10/29/2021 ASCUS with positive high risk HPV cervical 03/02 Overview (04/09/2023): 03/02/20 ASCUS, +HR HPV, not 16/18. Plan Cadet bef 06/02/20 11/14/20 Lost to follow-up for pap tracking 01/31/21 Cadet Bx's & ECC - negative ([facility]) 03/31/23 NIL pap, Neg HR HPV Plan cotest in 3 years Sinus tachycardia 07/05/2019 Persistent insomnia 06/30/2019 Palpitations 05/15/2018 Controlled substance agreeme nt signed. PHOTOGRAPHER'S MODEL check05/13/18, no concerns 08/21/2015 Other specified attention de ficit hyperactivity disorder (ADHD) 02/14/2015 Generalized anxiety disorder 01/10/2015 Overview (10/20/2018): Patient is followed by NELSON SUAREZ for ongoing prescription of benzodiazepines. All refills should be approved by this provider, or covering partner. Medication(s): clonazePAM (KLONOPIN) 0.5 MG tablet. Maximum quantity per month: 30 Clinic visit frequency required: Q 3 months Controlled substance agreement on file: Yes Date(s): 08.21.15 Benzodiazepine use reviewed by psychiatry: No Last [facility] website verification: done on 10.20.18 [email or web address]/login Major depressive disorder, recurrent episode, mo derate 09/10/2011 ODD (oppositional defiant disorder) 05/24/2011 Syncope 10/04/2010 Resolved Problems Problem Noted Date Diagnosed Date Resolved Date Morbid obesity 08/15/2022 11/24/2023 Adjustment disorder with dis turbance of conduct 09/10/2011 10/04/2016 Cannabis abuse, episodic 05/24/2011 Depression 05/24/2011 01/08/2015 Encounters Date Type Department Care Team Description 05/01/2024 MyC Medical Advice [facility] [place] [address] [place] [address] Nelson Suarez PA-C Elevated blood pressure reading without diagnosis of hypertension 05/01/2024 MyC Refill [facility] [place] [address] [place] [address] Nelson Suarez PA-C Refill Request 04/27/2024 MyC Refill [facility] [place] [address] [place] [address] Nelson Suarez PA-C Refill Request 04/06/2024 Refill [facility] [address] [place] [address] Nelson Suarez PA-C Medication Refill from Last 3 Months Immunizations Name Administration Dates Next Due DTaP, Unspecified 08/02/1999, 6,01/09/1995,10/11,1994 Flu, Unspecified 03/03/2017, 5,01/19/2015,03/11,03/10/2014,04/09/2012,02/12/2010 HEPA 04/09/2012,02/12/2010 HIB (PRP-T) 09/25/1995, 5,1994,08/13 HPV 01/15/2011,08/02/2010,02/12/2010 HepB 03/11/1995,1994,1994 HepB, Unspecified 03/11/1995,1994,08/13/18 95 Hepatitis B, Adult 03/11/2023 Influenza (IIV3) PF 02/16/2015, 4,04/09/2012,02/12 Influenza Vaccine (Flucelvax Quadrivalent) 03/11/2023 Influenza Vaccine >6 months,quad, PF 10/2021,05/14/2021,03/02/2020,02/04,06/22/2018 Influenza Vaccine, 6+MO IM (QUADRIVALENT W/PRESERVATIVES) 03/03/2017,03/11/2014 Influenza vaccine ages 6-35 months 03/03/2017 MMR 08/02/1999,09/25/1995 Mantoux Tuberculin Skin Test 01/26/2019,08/10/19 15,06/27/2014 Meningococcal (Menomune ) 04/09/2012,07/05/2009 Poliovirus, inactivated (IPV) 08/02/1999 ,01/09/1995,1994,08/13 TDAP (Adacel,Boostrix) 12/27/2005,1999,09/25/1995,01/09,1994,1994 TDAP Vaccine (Adacel) 08/30/2016 Varicella 07/05/2009,09/25/1995 Family History Medical History Relation Comments Anxiety Disorder Brother 1 Genetic Disorder Brother 2 Alcohol/Drug Father alcohol, in was care home for DUI Anxiety Disorder Father Mental Illness Father Substance Abuse Father Breast Cancer Maternal Aunt Lupus Maternal Grandfather Rheumatologic Disease Maternal Grandfather Great GF, RA Hypertension Maternal Grandmother Anxiety Disorder Mother Depression Mother Genetic Disorder Mother Rheumatoid arth ritis Mental Illness Mother Osteoporosis Mother Rheumatoid Arthritis Mother OP, fibromy algia, Thyroid Thyroid Disease Mother Hypertension Other 1 Breast Cancer Other 2 Both maternal gr eat aunts Other Cancer Paternal Grandfather Prostate Cancer Paternal Grandfather Mental Illness Paternal Grandmother Substance Abuse Paternal Grandmother alcohol Other Cancer Paternal Half-Brother Substance Abuse Paternal Uncle Anxiety Disorder Sister 1 Anxiety Disorder Sister 2 Hypertension Sister 2 Relation Status Comments Brother 1 Brother 2 Father Alive Maternal Aunt Maternal Grandfather Maternal Grandmother Mother Alive Other 1 Other 2 Paternal Grandfather Paternal Grandmother Paternal Half-Brother Paternal Uncle Sister 1 Sister 2 Social History Tobacco Use Types Packs/Day Years Used Date Smoking Tobacco: Former Cigarettes 0.5 2.8 0 06/05/2012 - 03/09/2015 Smokeless Tobacco: Never Quit: 06/01/2014 Tobacco Cessation:Counseling Given: Not Answered Comments:Started 17 y/o Alcohol Use Standard Drinks/Week Comments Yes 0 (1 standard drink = 0.6 oz pur e alcohol) Occasionally Social Connection and Isolation Panel [NHANES] A nswer Date Recorded Frequency of Communication with Friends and Fami ly Not on file 11/24/2023 How often do you get together with friends or re latives? Once a week 11/24/2023 Attends Church Services Not on file 11/23 Active Member of Clubs or Organizations Not on f ile 11/24/2023 Attends Club or Organization Meetings Not on asia e 11/24/2023 Marital Status Not on file 11/24/2023 PHQ-2 Answer Date Recorded PHQ-2 Score 0 11/24/2023 [facility] [place] of Occupat ional Health - Occupational Stress Questionnaire Answer Date Recorded Do you feel stress - tense, restless, nervous, or anxious, or unable to sleep at night because your mind is troubled all the time - these days? Only a little 11/24/2023 Exercise Vital Sign Answer Date Recorde d On average, how many days pe r week do you engage in moderate to strenuous exercise (like a brisk walk)? 3 days Minutes of Exercise per Session Not on file 11/24/2023 Adolescent Education Answer Date Record ed Getting School Help Needed Not on file 01/29 Food Insecurity Answer Date Recorded Within the past 12 months, d id you worry that your food would run out before you got money to buy more? No 11/24/2023 Within the past 12 months, d id the food you bought just not last and you didn t have money to get more? No 11/24/2023 Housing Stability Answer Date Recorded Do you have housing? (Marina g is defined as stable permanent housing and does not include staying ouside in a car, in a tent, in an abandoned building, in an overnight detention, or couch-surfing.) Yes 11/24/2023 Are you worried about losing your housing? No 11/24/2023 Financial Resource Strain Answer Date R ecorded Within the past 12 months, h ave you or your family members you live with been unable to get utilities (heat, electricity) when it was really needed? No 11/24/2023 Transportation Needs Answer Date Record ed Within the past 12 months, h as lack of transportation kept you from medical appointments, getting your medicines, non-medical meetings or appointments, work, or from getting things that you need? No 11/24/2023 Interpersonal Safety Answer Date Record ed Do you feel physically and e motionally safe where you currently live? Yes 11/24/2023 Within the past 12 months, h ave you been hit, slapped, kicked or otherwise physically hurt by someone? No 11/24/2023 Within the past 12 months, h ave you been humiliated or emotionally abused in other ways by your partner or ex-partner? No 11/24/2023 Comments No Sex and Gender Information Value Date Recorded Sex Assigned at Female 10/03/2020 8:33 PM CDT 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:44 AM DIRECTOR OF RESTAURANT OPERATIONS Gender Identity Female 10/03/2020 8:33 PM CDT Sexual Orientation Straight 07/01/2018 3: 40 PM DIRECTOR OF RESTAURANT OPERATIONS Last Filed Vital Signs Vital Sign Reading Time Taken Comments Blood Pressure 123/81 11/24/2023 1:20 PM CDT Pulse 79 11/24/2023 1:20 PM CDT Temperature 36.4 C (97.6 F) 11/24/2023 1:20 PM CDT Respiratory Rate 15 11/24/2023 1:20 PM CDT Oxygen Saturation 100% 11/24/2023 1:20 PM CDT Inhaled Oxygen Concentration - - Weight 81.8 kg (180 lb 4.8 oz) 11/24/2023 1:20 P M CDT Height 166.4 cm (5' 5.5) 11/24/2023 1:20 PM CDT Body Mass Index 29.55 11/24/2023 1:20 PM CDT Plan of Treatment Health Maintenance Due Date Last Done Comments COVID-19 Vaccine ( season) 2024 INFLUENZA VACCINE (#1) 2024 , 02/07/2022, 05/14/2021, Additional history exists SHANTELL ASSESSMENT 02/13/2024 02/12/2023, 10/04, 08/08/2021, Additional history exists PHQ-9 05/26/2024 11/24/2023, 03/06, 02/12/2023, Additional history exists ANNUAL REVIEW OF HM ORDERS 11/23/202411/23, 07/24/2022, 02/21/2021, Additional history exists YEARLY PREVENTIVE VISIT 11/23/2024 11/24/19, 08/15/2022, 02/07/2022, Additional history exists HPV FOLLOW-UP 03/31/2026 03/31/2023, 03/02/2020 PAP FOLLOW-UP 03/31/2026 03/31/2023, 02/03, 06/27/2015 DTAP/TDAP/TD IMMUNIZATION (8 - Td or Tdap) 08/30/2026 08/30/2016, 12/27/2005, 08/02/1999, Additional history exists ADVANCE CARE PLANNING 11/23/2028 11/24/2023, 023 ZOSTER IMMUNIZATION (1 of 2) 2044 RSV VACCINE (1 - 1-dose 75+ series) 2069 HPV IMMUNIZATION Completed 01/15/2011, , 02/12/2010 HIV SCREENING Completed 05/24/2011, 05/24/2011 MENINGITIS IMMUNIZATION Aged Out 04/09/2012, 07/05 No longer eligible based on patient's age to complete this topic HEPATITIS C SCREENING Completed 12/27/2014 DEPRESSION ACTION PLAN Completed 8, 11/25/2017, 08/30/2016, Additional history exists HEPATITIS B IMMUNIZATION Completed 023, 03/11/1995, 03/11/1995, Additional history exists PAP Discontinued 03/31/2023, 02/03, 06/27/2015 Pneumococcal Vaccine: Pediatrics (0 to 5 Years) and At-Risk Patients (6 to 49 Years) Aged Out No longer eligible based on patient's age to complete this topic RSV MONOCLONAL ANTIBODY Aged Out No l onger eligible based on patient's age to complete this topic Procedures Procedure Name Priority Date/Time Associated Diagnosis Comments HPV HIGH RISK TYPES DNA CERVICAL Add-On 03/31/2023 2:16 PM DIRECTOR OF RESTAURANT OPERATIONS ASCUS with positive high risk HPV cervical GYNECOLOGIC CYTOLOGY Routine 03/31/2023 2:16 PM DIRECTOR OF RESTAURANT OPERATIONS Cervical cancer screening HEPATITIS C ANTIBODY Routine 12/27/2014 3:38 PM CDT Pain in joint, multiple sites Raynaud's syndrome Arthralgia of both knees Smoker HIV 1 AND 2 ANTIBODY (QUEST) Routine 05/24/2011 7:21 AM DIRECTOR OF RESTAURANT OPERATIONS from Last 3 Months or Most Recently Relevant to Health Maintenance Results * Pap Screen reflex to HPV if ASCUS - recommend age 25 - 29 (03/31/2023 2:16 PM DIRECTOR OF RESTAURANT OPERATIONS) Interpretation Negative for Intraepithelial Lesion or Malignancy (NILM) 04/03/2023 10:33 AM DIRECTOR OF RESTAURANT OPERATIONS [facility] Comment Papanicolaou Test Limitations: Cervical cytology is a screening test with limited sensitivity, and regular screening is critical for cancer prevention. Pap tests are primarily effective for the diagnosis/prevent ion of squamous cell carcinoma, not adenocarcinoma or other cancers. 04/03/2023 10:33 AM DIRECTOR OF RESTAURANT OPERATIONS [facility] Specimen Adequacy Satisfactory for evaluation, endocervical/angel sformation zone component absent 04/03/2023 10:33 AM DIRECTOR OF RESTAURANT OPERATIONS [facility] Clinical Information none 04/03/2023 10:33 AM DIRECTOR OF RESTAURANT OPERATIONS [facility] LMP/Menopause Date 03/12/2023 04/03/2023 10:33 AM DIRECTOR OF RESTAURANT OPERATIONS [facility] Reflex Testing Yes if ASCUS 04/03/20 23 10:33 AM DIRECTOR OF RESTAURANT OPERATIONS [facility] Previous Abnormal? Yes 04/03/2023 10:33 AM DIRECTOR OF RESTAURANT OPERATIONS [facility] Previous Abnormal Diagnosis HPV 2020, ASCUS 04/03/2023 10:33 AM DIRECTOR OF RESTAURANT OPERATIONS [facility] Performing Labs The technical component of this testing was completed at [facility] 04/03/2023 10:33 AM DIRECTOR OF RESTAURANT OPERATIONS [facility] Brushing CERVIX UTERI STRUCTURE / Unknown Non-blood Collection / Unknown 03/31/2023 2:16 PM DIRECTOR OF RESTAURANT OPERATIONS 03/31/2023 2:26 PM DIRECTOR OF RESTAURANT OPERATIONS us Nelson AARON Final Resul t [facility] Specialty Lab [address] [facility], Room [address] [place] [id number], [facility] [phone] * HPV High Risk Types DNA Cervical (03/31/2023 2:16 PM DIRECTOR OF RESTAURANT OPERATIONS) Other HR HPV Negative Negative 04/07/2023 8:30 AM DIRECTOR OF RESTAURANT OPERATIONS [facility] HPV16 DNA Negative Negative 04/07/2023 8:30 AM DIRECTOR OF RESTAURANT OPERATIONS [facility] HPV18 DNA Negative Negative 04/07/2023 8:30 AM DIRECTOR OF RESTAURANT OPERATIONS [facility] FINAL DIAGNOSIS This patient's sample is negative for HPV DNA. This test was developed and its performance characteristics determined by the [facility], [facility] Diagn[facility] Laboratory. It has not been cleared or approved by the FDA. The laboratory is regulated under CLIA as qualified to perform high-complexity testing. This test is used for clinical purposes. It should not be regarded as investigational or for research. METHODOLOGY: The Michel Thad 4800 system uses automated extraction, simultaneous amplification of HPV (L1 region) and beta-globin, followed by real time detection of fluorescent labeled HPV and beta globin using specific oligonucleotide probes. The test specifically identifies types HPV 16 DNA and HPV 18 DNA while concurrently detecting the rest of the high risk types (31, 33, 35, 39, 45, 51, 52, 56, 58, 59, 66 or 68). COMMENTS: This test is not intended for use as a screening device for woman under age 30 with normal cervical cytology. Results should be correlated with cytologic and histologic findings. Close clinical followup is recommended. 04/07/2023 8:30 AM DIRECTOR OF RESTAURANT OPERATIONS [facility] Brushing CERVIX UTERI STRUCTURE / Unknown Non-blood Collection / Unknown 03/31/2023 2:16 PM DIRECTOR OF RESTAURANT OPERATIONS 04/04/2023 9:26 AM DIRECTOR OF RESTAURANT OPERATIONS us Nelson Suarez PA-C LAB - BLOOD ORDERABLES Kalee l Result [facility] Molecular [facility] [address] [facility], [address] [address], [facility] [phone] * Hepatitis C antibody (12/27/2014 3:38 PM CDT) Pathologist [facility] Hepatitis C Antibody Nonreactive Assay performance characteristics have not been established for newborns, infants, and children NR [facility] Blood specimen (specimen) 12/27/2014 3:38 PM CDT 12/27/2014 3:40 PM CDT us Carrillo Ware APRN PELLETIZER TENDER LAB - BLOOD ORDERABLE S Final Result [facility] [address] [place] [address] * HIV 1 and 2 Antibody (05/24/2011 7:21 AM DIRECTOR OF RESTAURANT OPERATIONS) Pathologist [facility] HIV 1&2 Antibody Negative NEG [facility] 05/24/2011 7:21 AM DIRECTOR OF RESTAURANT OPERATIONS 05/24/2011 7:22 AM DIRECTOR OF RESTAURANT OPERATIONS us Vidal Suarez MD LAB - BLOOD ORDERABLES Final Result [facility] [address] [place] [address] from Last 3 Months or Most Recently Relevant to Health Maintenance [place] [place] [address] [facility] * Guarantor: Nidia Crystal Account Type Relation to Patient Date of Phone Billing Address Medication Therapy Self [address] [place] [phone] Advance Directives For more information, please contact: [phone] * Full Code (Latest Code Status on File) Date Activated Date Inactivated Comments 05/23/2011 9:13 PM 05/28/2011 6:55 PM Care Teams Technical Document Writer Relationship Specialty Start Date End Date Nelson Suarez PA-C [address] [place] [address] PCP - General Physician Optometric Technician - Medical 08/06/18 Salina Doherty MD Internal Medicine 12/01/14 Carrillo Ware APRN PELLETIZER TENDER [address] [place] [id number] Nurse Practitioner Nurse Practitioner 12/16/14 Angelica Jerez NP [address] [id number] Nurse Practitioner Nurse Practitioner - Family 07/12/16 Nelson Suarez PA-C [address] [place] [address] Assigned PCP 07/30/20 Pietro Wills MD [address] [place] [address] Assigned Heart and Vascular Provider 12/14/22 Tank Bucio MD [address], [address] [address] Physician pastry chef 12/01/23
--- OUTSIDE RECORDS SUMMARY | 2024-06-02 17:01 | XMS_ITS | Encounter Summary ---
Author Organization [facility] Address [address] [place] [address]. [place] [address] Care Team Providers Care Residential Mortgage Manager Name Role Phone Salina Doherty MD Unavailable Carrillo Ware APRN OUTREACH COORDINATOR Unavailable SolitarioAngelica golden NP Unavailable Nelson Arroyo PA-C Primary Care Provider Nelson Arroyo PA-C Unavailable [phone] Pietro Wills MD Unavailable Tank Bucio MD Unavailable [phone] Encounter Details Date Type Department Care Team (Late st Contact Info) Description 06/22/2022 MyC Medical Advice [facility] [address] [place] [address] Nelson Arroyo PA-C [address] [place] [address] Social History Tobacco Use Types [...] PM CDT 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:44 AM MACHINE CAPTAIN Gender Identity Female 10/03/2020 8:33 PM CDT Sexual Orientation Straight 07/01/2018 3: 40 PM MACHINE CAPTAIN documented as of this encounter Plan of Treatment Not on file documented as of this encounter Visit Diagnoses Not on filedocumented in this encounter Additional Health Concerns Assessment Noted Time PHQ-9 Depression Total Score: 7 10/23/19 22 11:44 AM CDT documented as of this encounter Care Teams Residential Mortgage Manager Relationship Specialty Start Date End Date Nelson Arroyo PA-C [address] [address] PCP - General Physician Garbage Collector - Medical 08/06/18 Salina Doherty MD Internal Medicine 12/01/14 Carrillo Ware APRN OUTREACH COORDINATOR [address] [place] [address]345 Nurse Practitioner Nurse Practitioner 12/16/14 Angelica Jerez NP [facility] [address] [place], [place] [address] Nurse Practitioner Nurse Practitioner - Family 07/12/16 Nelson Arroyo PA-C [address] [address] Assigned PCP 07/30/20 Pietro Wills MD [address] [address] Assigned Heart and Vascular Provider 12/14/22 Tank Bucio MD [facility] [address], [facility] [address] [place] [address] Physician cigarette machines mechanic 12/01/23 documented as of this encounter
--- OUTSIDE RECORDS SUMMARY | 2024-06-02 17:02 | XMS_ITS | Encounter Summary ---
Author Organization [place] Address [address] [place] [address]. [place] [address] Care Team Providers Care Calciner Operator Helper Name Role Phone Salina Doherty MD Unavailable [phone] Carrillo Ware APRN BUSINESS ANALYTICS INTERN Unavailable SolitarioAngelica golden NP Unavailable [phone] Nelson Arroyo PA-C Unavailable Nelson Arroyo PA-C Primary Care Provider Chinyere Barbour Unavailable Unavailable Nelson Arroyo PA-C Unavailable Pietro Wills MD Unavailable Tank Bucio MD Unavailable Reason for Visit * Reason Onset Date Comments Refill Request 06/14/2019 Encounter Details Date Type Department Care Team (Late st Contact Info) Description 06/14/2019 MyC Refill [facility] [address] [facility], [address] [place] [address] [place] [address] [place] [address] Refill Request Social History Tobacco [...] PM CDT 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:44 AM GLASS MECHANIC Gender Identity Female 10/03/2020 8:33 PM CDT Sexual Orientation Straight 07/01/2018 3 :40 PM GLASS MECHANIC documented as of this encounter Miscellaneous Notes * Telephone Encounter - Maude Singh RN - 06/17/2019 1:38 PM CST Duplicate S MECHANIC documented in this encounter Plan of Treatment Not on file documented as of this encounter Visit Diagnoses Diagnosis Generalized anxiety disorder Major depressive disorder, recurrent episode, moderate (H) Major depressive disorder, recurrent episode, moderate documented in this encounter Additional Health Concerns Assessment Noted Time PHQ-9 Depression Total Score: 10 019 2:36 PM CDT documented as of this encounter Care Teams Calciner Operator Helper Relationship Specialty Start Date End Date Nelson Arroyo PA-C [address] [place] [address] PCP - General Physician Senior Tech Manufacturing Engineering - Medical 08/06/18 Salina Doherty MD Internal Medicine 12/01/14 Carrillo Ware APRN BUSINESS ANALYTICS INTERN [address] [place] [address] [id number] Nurse Practitioner Nurse Practitioner 12/16/14 Angelica Jerez NP [facility] [address] [address] [place], [place] [address] Nurse Practitioner Nurse Practitioner - Family 07/12/16 Nelson Arroyo PA-C [address] [address] Assigned PCP 07/05/18 07/29/20 Chinyere Barbour Personal Advocate & Liaison (PAL) 01/31/20 04/26/20 Nelson Arroyo PA-C [address] [address] Assigned PCP 07/30/20 Pietro Wills MD [address] [place] [address] Assigned Heart and Vascular Provider 12/14/22 Tank Bucio MD [address], [address] [address] Physician business analytics analyst 12/01/23 documented as of this encounter
--- OUTSIDE RECORDS SUMMARY | 2024-06-02 17:02 | XMS_ITS | Encounter Summary ---
Author Organization [place] Address [address] [place] [address]. [place] [address] Care Team Providers Care Grounds Maintenance Worker Name Role Phone Salina Doherty MD Unavailable [phone] Carrillo Ware APRN NEEDLE FELT MAKING MACHINE OPERATOR Unavailable SolitarioAngelica golden NP Unavailable [phone] Nelson Arroyo PA-C Unavailable Nelson Arroyo PA-C Primary Care Provider Chinyere Barbour Unavailable Unavailable Nelson Arroyo PA-C Unavailable Pietro Wills MD Unavailable Tank Bucio MD Unavailable Reason for Visit * Reason Comments Medication Refill Encounter Details Date Type Department Care Team (Late st Contact Info) Description 11/27/[address], [address] [place] [address] Nelson Arroyo PA-C [address] [place] [address] Medication Refill Social History Tobacco Use Types Packs/Day Years Used Date Smoking Tobacco: Former Cigarettes 0.5 2.8 0 06/05/2012 - 03/09/2015 Smokeless Tobacco: Never Quit: 06/01/2014 Comments:Started 17 y/o Alcohol Use Standard Drinks/Week Comments Yes 0 (1 standard drink = 0.6 oz pur e alcohol) Occasionally PHQ-2 Answer Date Recorded PHQ-2 Score 3 09/28/2019 Comments No Sex and Gender Information Value Date Recorded Sex Assigned at Female 10/03/2020 8:33 PM CDT 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:44 AM MANUFACTURING ASSISTANT Gender Identity Female 10/03/2020 8:33 PM CDT Sexual Orientation Straight 07/01/2018 3: 40 PM MANUFACTURING ASSISTANT documented as of this encounter Miscellaneous Notes * Telephone Encounter - Trang Lozano RN - 11/29/2019 10:57 AM CDT Prescription approved [place] [facility] [place]. Trang Lozano RN documented in this encounter Plan of Treatment Not on file documented as of this encounter Visit Diagnoses Diagnosis Palpitations Sinus tachycardia Other specified cardiac dysrhythmias Generalized anxiety disorder documented in this encounter Additional Health Concerns Assessment Noted Time PHQ-9 Depression Total Score: 7 09/29/19 20 7:04 AM CDT documented as of this encounter Care Teams Grounds Maintenance Worker Relationship Specialty Start Date End Date Nelson Arroyo PA-C [address] [place] [address] PCP - General Physician Group Work Program Director - Medical 08/06/18 Salina Doherty MD Internal Medicine 12/01/14 Carrillo Ware APRN NEEDLE FELT MAKING MACHINE OPERATOR [address] [place] [address]385 Nurse Practitioner Nurse Practitioner 12/16/14 Angelica Jerez NP [facility] [address] [place], [place] [address] Nurse Practitioner Nurse Practitioner - Family 07/12/16 Nelson Arroyo PA-C [address] [address] Assigned PCP 07/05/18 07/29/20 Chinyere Barbour Personal Advocate & Liaison (PAL) 01/31/20 04/26/20 Nelson Arroyo PA-C [address] [address] Assigned PCP 07/30/20 Pietro Wills MD [address] [place] [address] Assigned Heart and Vascular Provider 12/14/22 Tank Bucio MD [address], [address] [address] Physician tax services intern 12/01/23 documented as of this encounter
--- OUTSIDE RECORDS SUMMARY | 2024-06-02 17:02 | XMS_ITS | Encounter Summary ---
Author Organization [facility] Address [address] [place] [address]. [place] [address] Care Team Providers Care Felt Hat Steamer Name Role Phone Salina Doherty MD Unavailable [phone] Carrillo Ware APRN MACHINE DRILLER Unavailable SolitarioAngelica golden NP Unavailable [phone] Nelson Arroyo PA-C Primary Care Provider Nelson Arroyo PA-C Unavailable Pietro Wills MD Unavailable [phone] Tank Bucio MD Unavailable Reason for Visit * Reason Comments Medication Refill Encounter Details Date Type Department Care Team (Late st Contact Info) Description 08/07/[address], [address] [place] [address] Nelson Arroyo PA-C [address] [place] [address] Medication Refill Social History Tobacco Use Types Packs/Day Years Used Date Smoking Tobacco: Former Cigarettes 0.5 2.8 0 06/05/2012 - 03/09/2015 Smokeless Tobacco: Never Quit: 06/01/2014 Comments:Started 17 y/o Alcohol Use Standard Drinks/Week Comments Yes 0 (1 standard drink = 0.6 oz pur e alcohol) Occasionally PHQ-2 Answer Date Recorded PHQ-2 Score 3 07/13/2020 Comments No Sex and Gender Information Value Date Recorded Sex Assigned at Female 10/03/2020 8:33 PM CDT 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:44 AM DAIRY FEED SALES CONSULTANT Gender Identity Female 10/03/2020 8:33 PM CDT Sexual Orientation Straight 07/01/2018 3: 40 PM DAIRY FEED SALES CONSULTANT COVID-19 Exposure Response Date Recorded In the last month, have you been in contact with someone who was confirmed or suspected to have Coronavirus / COVID-19? No / Unsure 07/13/2020 1:58 PM DAIRY FEED SALES CONSULTANT documented as of this encounter Miscellaneous Notes * Telephone Encounter - Minda Vergara RN - 08/08/2020 5:14 PM CDT Prescription [place] [facility] [place]. Minda Vergara RN on 08/08/2020 at 5:14 PM documented in this encounter Plan of Treatment Not on file documented as of this encounter Visit Diagnoses Diagnosis Acne, unspecified acne type documented in this encounter Additional Health Concerns Assessment Noted Time PHQ-9 Depression Total Score: 6 07/14/19 21 3:35 PM DAIRY FEED SALES CONSULTANT documented as of this encounter Care Teams Felt Hat Steamer Relationship Specialty Start Date End Date Nelson Arroyo PA-C [address] [place] [address] PCP - General Physician Technology Program Manager - Medical 08/06/18 Salina Doherty MD Internal Medicine 12/01/14 Carrillo Ware APRN MACHINE DRILLER [address] [place] [address] [id number] Nurse Practitioner Nurse Practitioner 12/16/14 Angelica Jerez NP [address] [address] Nurse Practitioner Nurse Practitioner - Family 07/12/16 Nelson Arroyo PA-C [address] [place] [address] Assigned PCP 07/30/20 Pietro Wills MD [address] [place] [address] Assigned Heart and Vascular Provider 12/14/22 Tank Bucio MD [address], [address] [address] Physician air defense artillery officer 12/01/23 documented as of this encounter
--- OUTSIDE RECORDS SUMMARY | 2024-06-02 17:02 | XMS_ITS | Encounter Summary ---
Author Organization [place] Address [address] [place] [address]. [place] [address] Care Team Providers Care Product Safety And Standards Engineer Name Role Phone Salina Doherty MD Unavailable [phone] Carrillo Ware APRN BACKEND PYTHON DEVELOPER Unavailable SolitarioAngelica golden NP Unavailable [phone] Nelson Arroyo PA-C Unavailable Nelson Arroyo PA-C Primary Care Provider Nelson Arroyo PA-C Unavailable Pietro Wills MD Unavailable [phone] Tank Bucio MD Unavailable Reason for Visit * Reason Comments Medication Refill Encounter Details Date Type Department Care Team (Late st Contact Info) Description [address], [address] [place] [address] Nelson Arroyo PA-C [address] [place] [address] Medication Refill Social History Tobacco Use Types Packs/Day Years Used Date Smoking Tobacco: Former Cigarettes 0.5 2.8 0 06/05/2012 - 03/09/2015 Smokeless Tobacco: Never Quit: 06/01/2014 Comments:Started 17 y/o Alcohol Use Standard Drinks/Week Comments Yes 0 (1 standard drink = 0.6 oz pur e alcohol) Occasionally PHQ-2 Answer Date Recorded PHQ-2 Score 2 03/02/2020 Comments No Sex and Gender Information Value Date Recorded Sex Assigned at Female 10/03/2020 8:33 PM CDT 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:44 AM SPECIAL DAY CLASS TEACHER Gender Identity Female 10/03/2020 8:33 PM CDT Sexual Orientation Straight 07/01/2018 3: 40 PM SPECIAL DAY CLASS TEACHER documented as of this encounter Miscellaneous Notes * Telephone Encounter - Nelson Arroyo PA-C - 06/18/2020 10:21 AM SPECIAL DAY CLASS TEACHER Yes- she is my patient. I assume she will continue with me unless she says otherwise? Nelson IAL DAY CLASS TEACHER * Telephone Encounter - Tammi Ozuna RN - 06/14/2020 2:50 PM CST Discussed with LG, wonders if PCP would refill, pt not changing PCP, saw if providers absence, please confirm, route to LG if needed Tammi Ozuna RN, BSN Message handled by CLINIC NURSE. IAL DAY CLASS TEACHER * Telephone Encounter - Tammi Ozuna RN - 06/14/2020 2:42 PM CST Routing refill request to provider for review/approval because: New for LG Tammi Ozuna RN, BSN Message handled by CLINIC NURSE. IAL DAY CLASS TEACHER * Telephone Encounter - Carmen Lynn RN - 06/14/2020 11:45 AM SPECIAL DAY CLASS TEACHER Forwarding to [place]. Saw Valentina FRANCOIS 02/25/20 for PHYSICAL Carmen Turcios RN IAL DAY CLASS TEACHER documented in this encounter Plan of Treatment Not on file documented as of this encounter Visit Diagnoses Diagnosis Palpitations Sinus tachycardia Other specified cardiac dysrhythmias Acne, unspecified acne type documented in this encounter Additional Health Concerns Assessment Noted Time PHQ-9 Depression Total Score: 5 03/03/20 20 7:03 AM CDT documented as of this encounter Care Teams Product Safety And Standards Engineer Relationship Specialty Start Date End Date Nelson Arroyo PA-C [address] [place] [address] PCP - General Physician Chemotherapist - Medical 08/06/18 Salina Doherty MD Internal Medicine 12/01/14 Carrillo Ware APRN CNP [address] [place] [address] [id number] Nurse Practitioner Nurse Practitioner 12/16/14 Angelica Jerez NP [facility] [address] [place], [place] [address] Nurse Practitioner Nurse Practitioner - Family 07/12/16 Nelson Arroyo PA-C [address] [place] [place] [address] Assigned PCP 07/05/18 07/29/20 Nelson Arroyo PA-C [address] [place] [address] Assigned PCP 07/30/20 Pietro Wills MD [address] [place] [address] Assigned Heart and Vascular Provider 12/14/22 Tank Bucio MD [address], [facility] [address] [place] [address] Physician cognos report developer 12/01/23 documented as of this encounter
--- OUTSIDE RECORDS SUMMARY | 2024-06-02 17:02 | XMS_ITS | Encounter Summary ---
Author Organization [place] Address [address] [place] [address]. [place] [address] Care Team Providers Care Conference Organizer Name Role Phone Salina Doherty MD Unavailable Carrillo Ware APRN DATA CENTER ARCHITECT Unavailable SolitarioAngelica golden NP Unavailable [phone] Nelson Arroyo PA-C Unavailable [phone] Nelson Arroyo PA-C Primary Care Provider Chinyere Barbour Unavailable Unavailable Nelson Arroyo PA-C Unavailable [phone] Pietro Wills MD Unavailable [phone] Tank Bucio MD Unavailable [phone] Reason for Visit * Reason Onset Date Comments Refill Request 04/25/2020 Encounter Details Date Type Department Care Team (Late st Contact Info) Description 04/25/2020 MyC Pietro [facility], [address] [place] [address] [place] [address] [place] [address] Refill Request Social History Tobacco Use Types [...] PM CDT 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:44 AM NUTRITION THERAPIST Gender Identity Female 10/03/2020 8:33 PM CDT Sexual Orientation Straight 07/01/2018 3: 40 PM NUTRITION THERAPIST documented as of this encounter Plan of Treatment Not on file documented as of this encounter Visit Diagnoses Diagnosis Generalized anxiety disorder Major depressive disorder, recurrent episode, moderate (H) Major depressive disorder, recurrent episode, moderate documented in this encounter Additional Health Concerns Assessment Noted Time PHQ-9 Depression Total Score: 5 03/03/20 20 7:03 AM CDT documented as of this encounter Care Teams Conference Organizer Relationship Specialty Start Date End Date Nelson Arroyo PA-C [address] [place] [address] PCP - General Physician Facility Administrator - Medical 08/06/18 Salina Doherty MD Internal Medicine 12/01/14 Carrillo Ware APRN DATA CENTER ARCHITECT [address] [place] [address] 336245 Nurse Practitioner Nurse Practitioner 12/16/14 Angelica Jerez NP [facility] [address] [place], [place] [address] Nurse Practitioner Nurse Practitioner - Family 07/12/16 Nelson Arroyo PA-C [address] [address] Assigned PCP 07/05/18 07/29/20 Chinyere Barbour Personal Advocate & Liaison (PAL) 01/31/20 04/26/20 Nelson Arroyo PA-C [address] [place] [address] Assigned PCP 07/30/20 Pietro Wills MD [address] [place] [address] Assigned Heart and Vascular Provider 12/14/22 Tank Bucio MD [address], [facility] [address] [place], [place] [address] Physician forging press operator 12/01/23 documented as of this encounter
--- OUTSIDE RECORDS SUMMARY | 2024-06-02 17:02 | XMS_ITS | Encounter Summary ---
Author Organization [facility] Address [address] [place] [address] Care Team Providers Care Sheet Metal Mechanic Name Role Phone Salina Doherty MD Unavailable [phone] Carrillo Ware APRN DOCKWORKER Unavailable SolitarioAngelica golden NP Unavailable [phone] Nelson Arroyo PA-C Primary Care Provider [phone] Nelson Arroyo PA-C Unavailable [phone] Pietro Wills MD Unavailable [phone] Tank Bucio MD Unavailable [phone] Encounter Details Date Type Department Care Team (Late st Contact Info) Description 06/30/2023 [facility] [address] [address] Mary Fragoso Social History Tobacco Use Types Packs/Day Years [...] in an abandoned building, in an overnight residential, or couch-surfing.) Yes 03/31/2023 Are you worried [...] PM CDT 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:44 AM TIN FLIPPER Gender Identity Female 10/03/2020 8:33 PM CDT Sexual Orientation Straight 07/01/2018 3: 40 PM TIN FLIPPER documented as of this encounter Plan of Treatment Not on file documented as of this encounter Visit Diagnoses Not on filedocumented in this encounter Additional Health Concerns Assessment Noted Time PHQ-9 Depression Total Score: 8 03/31/20 23 1:09 PM TIN FLIPPER documented as of this encounter Care Teams Sheet Metal Mechanic Relationship Specialty Start Date End Date Nelson Arroyo PA-C [address] [address] PCP - General Physician Printed Circuit Boards Solder Leveler - Medical 08/06/18 Salina Doherty MD Internal Medicine 12/01/14 Carrillo Ware APRN DOCKWORKER [address] [place] [address] Nurse Practitioner Nurse Practitioner 12/16/14 Angelica Jerez NP [facility] [address] [place], [place] [address] Nurse Practitioner Nurse Practitioner - Family 07/12/16 Nelson Arroyo PA-C [address] [place] [address] Assigned PCP 07/30/20 Pietro Wills MD [address] [place] [address] Assigned Heart and Vascular Provider 12/14/22 Tank Bucio MD [address], [facility] [address] [place] [address] Physician masseur/masseuse 12/01/23 documented as of this encounter
--- OUTSIDE RECORDS SUMMARY | 2024-06-02 17:02 | XMS_ITS | Encounter Summary ---
Author Organization [facility] [place] Address [address] [place] [address]. [place] [address] Care Team Providers Care Laborer Pole Crew Name Role Phone Salina Doherty MD Unavailable [phone] Carrillo Ware APRN DIRECTOR OF SOCIAL MEDIA MARKETING Unavailable [phone] SolitarioAngelica golden NP Unavailable [phone] Nelson Arroyo PA-C Unavailable [phone] Nelson Arroyo PA-C Primary Care Provider Chinyere Barbour Unavailable Unavailable Nelson Arroyo PA-C Unavailable Pietro Wills MD Unavailable Tank Bucio MD Unavailable Reason for Visit * Reason Onset Date Comments Refill Request 06/21/2019 Seroquel Encounter Details Date Type Department Care Team (Late st Contact Info) Description 06/21/2019 MyC Refill [facility] [address] [facility], [address] [place] [address] [place] [address] [place] [address] Refill Request (Seroquel) Social History Tobacco Use Types Packs/Day Years [...] PM CDT 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:44 AM BEE ROBBER Gender Identity Female 10/03/2020 8:33 PM CDT Sexual Orientation Straight 07/01/2018 3: 40 PM BEE ROBBER documented as of this encounter Miscellaneous Notes * Telephone Encounter - Maude Singh RN - 06/23/2019 11:33 AM CST Already refilled. Maude Singh RN ROBBER documented in this encounter Plan of Treatment Not on file documented as of this encounter Visit Diagnoses Diagnosis Generalized anxiety disorder Major depressive disorder, recurrent episode, moderate (H) Major depressive disorder, recurrent episode, moderate documented in this encounter Additional Health Concerns Assessment Noted Time PHQ-9 Depression Total Score: 10 019 2:36 PM CDT documented as of this encounter Care Teams Laborer Pole Crew Relationship Specialty Start Date End Date Nelson Arroyo PA-C [address] [place] [address] PCP - General Physician .Net Programmer - Medical 08/06/18 Salina Doherty MD Internal Medicine 12/01/14 Carrillo Ware APRN DIRECTOR OF SOCIAL MEDIA MARKETING [address] [place] [address] [id number] Nurse Practitioner Nurse Practitioner 12/16/14 Angelica Jerez NP [address] 098257 Nurse Practitioner Nurse Practitioner - Family 07/12/16 Nelson Arroyo PA-C [address] [address] Assigned PCP 07/05/18 07/29/20 Chinyere Barbour Personal Advocate & Liaison (PAL) 01/31/20 04/26/20 Nelson Arroyo PA-C [address] [address] Assigned PCP 07/30/20 Pietro Wills MD [address] [place] [address] Assigned Heart and Vascular Provider 12/14/22 Tank Bucio MD [address] [facility], [address] [address] Physician dishwasher 12/01/23 documented as of this encounter
--- OUTSIDE RECORDS SUMMARY | 2024-06-02 17:02 | XMS_ITS | Encounter Summary ---
Author Organization [facility] Address [address] [place] [address]. [place] [address] Care Team Providers Care Outdoor Emergency Care Technician Name Role Phone Salina Doherty MD Unavailable [phone] Carrillo Ware APRN COLLISION WORKER Unavailable SolitarioAngelica golden NP Unavailable [phone] Nelson Arroyo PA-C Unavailable Nelson Arroyo PA-C Primary Care Provider Chinyere Barbour Unavailable Unavailable Nelson Arroyo PA-C Unavailable [phone] Pietro Wills MD Unavailable [phone] Tank Bucio MD Unavailable Reason for Visit * Reason Comments Medication Refill Encounter Details Date Type Department Care Team (Late st Contact Info) Description 08/18/[address], [address] [place] [address] Nelson Arroyo PA-C [address] [place] [address] Medication Refill Social History Tobacco [...] PM CDT 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:44 AM DATA PROCESSING SYSTEMS PROJECT PLANNER Gender Identity Female 10/03/2020 8:33 PM CDT Sexual Orientation Straight 07/01/2018 3: 40 PM DATA PROCESSING SYSTEMS PROJECT PLANNER documented as of this encounter Miscellaneous Notes * Telephone Encounter - Shell Dorman MD - 08/18/2019 4:28 PM CDT This will have to wait for pcp. I thought her last rx was supposed to last longer * Telephone Encounter - Maude Singh RN - 08/18/2019 4:12 PM CDT Routing refill request to provider for review/approval because: Drug not on the G refill protocol Maude Singh RN * Telephone Encounter - Maude Singh RN - 08/18/2019 4:12 PM CDT Prescription approved per [facility] Refill Protocol - Hydroxyzine Maude Singh RN documented in this encounter Plan of Treatment Not on file documented as of this encounter Visit Diagnoses Diagnosis Generalized anxiety disorder Persistent insomnia Persistent disorder of initiating or maintaining sleep documented in this encounter Additional Health Concerns Assessment Noted Time PHQ-9 Depression Total Score: 10 020 3:04 PM DATA PROCESSING SYSTEMS PROJECT PLANNER documented as of this encounter Care Teams Outdoor Emergency Care Technician Relationship Specialty Start Date End Date Nelson Arroyo PA-C [address] [place] [address] PCP - General Physician Supervisor Poultry Processing - Medical 08/06/18 Salina Doherty MD Internal Medicine 12/01/14 Carrillo Ware APRN COLLISION WORKER [address] [place] [address] Nurse Practitioner Nurse Practitioner 12/16/14 Angelica Jerez TUBE CARRIER [facility] [address] [place] [address] Nurse Practitioner Nurse Practitioner - Family 07/12/16 Nelson Arroyo PA-C [address] [place] [address] Assigned PCP 07/05/18 07/29/20 Chinyere Barbour Personal Advocate & Liaison (PAL) 01/31/20 04/26/20 Nelson Arroyo PA-C [address] [id number] Assigned PCP 07/30/20 Pietro Wills MD [address] [place] [address] Assigned Heart and Vascular Provider 12/14/22 Tank Bucio MD [address], [facility] [address] [place] [address] Physician university librarian 12/01/23 documented as of this encounter
--- OUTSIDE RECORDS SUMMARY | 2024-06-02 17:02 | XMS_ITS | Encounter Summary ---
Author Organization [facility] Address [address] [place] [address]. [place] [address] Care Team Providers Care Spring Fitter Helper Name Role Phone Salina Doherty MD Unavailable Carrillo Ware APRN TECHNICAL MAINTENANCE TECHNICIAN Unavailable SolitarioAngelica golden NP Unavailable [phone] Nelson Arroyo PA-C Primary Care Provider Nelson Arroyo PA-C Unavailable Pietro Wills MD Unavailable Tank Bucio MD Unavailable [phone] Encounter Details Date Type Department Care Team (Late st Contact Info) Description 02/20/2023 MyC Medical Advice [facility] [address] [place] [address] Nelson Arroyo PA-C [address] [place] [address] Social History Tobacco Use Types [...] or more points; Administer PHQ-9 if positive 2 02/13/2023 Adolescent Education Answer Date Record ed Getting School Help Needed Not on file 01/29 Comments No Sex and Gender Information Value Date Recorded Sex Assigned at Female 10/03/2020 8:33 PM CDT 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:44 AM CHILDHOOD DEVELOPMENT TEACHER Gender Identity Female 10/03/2020 8:33 PM CDT Sexual Orientation Straight 07/01/2018 3: 40 PM CHILDHOOD DEVELOPMENT TEACHER documented as of this encounter Plan of Treatment Not on file documented as of this encounter Visit Diagnoses Not on filedocumented in this encounter Additional Health Concerns Assessment Noted Time PHQ-9 Depression Total Score: 6 02/14/20 23 10:10 AM CDT documented as of this encounter Care Teams Spring Fitter Helper Relationship Specialty Start Date End Date Nelson Arroyo PA-C [address] [place] [address] PCP - General Physician Flower Maker - Medical 08/06/18 Salina Doherty MD Internal Medicine 12/01/14 Carrillo Ware APRN TECHNICAL MAINTENANCE TECHNICIAN [address] [place] [address]58[address] Nurse Practitioner Nurse Practitioner 12/16/14 Angelica Jerez NP [address] [address] Nurse Practitioner Nurse Practitioner - Family 07/12/16 Nelson Arroyo PA-C [address] [address] Assigned PCP 07/30/20 Pietro Wills MD [address] [place] [address] Assigned Heart and Vascular Provider 12/14/22 Tank Bucio MD [address], [address] [address] Physician preschool adviser 12/01/23 documented as of this encounter
--- OUTSIDE RECORDS SUMMARY | 2024-06-02 17:02 | XMS_ITS | Encounter Summary ---
Author Organization [facility] Address [address] [place] [address] Care Team Providers Care Data Processing Control Clerk Name Role Phone Salina Doherty MD Unavailable [phone] Carrillo Ware APRN FUR DRESSER Unavailable SolitarioAngelica golden NP Unavailable [phone] Nelson Arroyo PA-C Unavailable [phone] Nelson Arroyo PA-C Primary Care Provider Chinyere Barbour Unavailable Unavailable Nelson Arroyo PA-C Unavailable [phone] Pietro Wills MD Unavailable [phone] Tank Bucio MD Unavailable [phone] Encounter Details Date Type Department Care Team (Late st Contact Info) Description 06/23/2019 MyC Medical Advice [facility] [id number] [place] [address], [address] [place] [address] Ashely Younger, [facility] Social History Tobacco Use Types Packs/Day Years [...] PM CDT 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:44 AM CARVER HAND Gender Identity Female 10/03/2020 8:33 PM CDT Sexual Orientation Straight 07/01/2018 3: 40 PM CARVER HAND documented as of this encounter Plan of Treatment Not on file documented as of this encounter Visit Diagnoses Not on filedocumented in this encounter Additional Health Concerns Assessment Noted Time PHQ-9 Depression Total Score: 10 019 2:36 PM CDT documented as of this encounter Care Teams Data Processing Control Clerk Relationship Specialty Start Date End Date Nelson Arroyo PA-C [address] [address] PCP - General Physician Internal Controls Specialist - Medical 08/06/18 Salina Doherty MD Internal Medicine 12/01/14 Carirllo Ware APRN FUR DRESSER [address] [place] [address] Nurse Practitioner Nurse Practitioner 12/16/14 Angelica Jerez NP [address] [address] Nurse Practitioner Nurse Practitioner - Family 07/12/16 Nelson Arroyo PA-C [address] [address] Assigned PCP 07/05/18 07/29/20 Chinyere Barbour Personal Advocate & Liaison (PAL) 01/31/20 04/26/20 Nelson Arroyo PA-C [address] [address] Assigned PCP 07/30/20 Pietro Wills MD [address] [place] [address] Assigned Heart and Vascular Provider 12/14/22 Tank Bucio MD [address] [facility] 100 [place] [address] Physician mainspring winder and oiler 12/01/23 documented as of this encounter
--- OUTSIDE RECORDS SUMMARY | 2024-06-02 17:02 | XMS_ITS | Encounter Summary ---
Author Organization [facility] Address [address] [place] [address]. [place] [address] Care Team Providers Care Reverse Logistics Analyst Name Role Phone Salina Doherty MD Unavailable [phone] Carrillo Ware APRN PACKAGING TECH Unavailable SolitarioAngelica golden NP Unavailable [phone] Nelson Arroyo PA-C Unavailable Nelson Arroyo PA-C Primary Care Provider Chinyere Barbour Unavailable Unavailable Nelson Arroyo PA-C Unavailable [phone] Pietro Wills MD Unavailable Tank Bucio MD Unavailable Reason for Visit * Reason Onset Date Comments Panel Management 06/23/2019 Encounter Details Date Type Department Care Team (Late st Contact Info) Description 06/23/2019 MyC Medical Advice [facility] [address] [facility], [address] [place] [address] Nelson Arroyo PA-C [address] [place] [address] Panel Management Social History Tobacco Use Types Packs/Day Years [...] PM CDT 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:44 AM LINING LAYER Gender Identity Female 10/03/2020 8:33 PM CDT Sexual Orientation Straight 07/01/2018 3: 40 PM LINING LAYER documented as of this encounter Miscellaneous Notes * Telephone Encounter - Ashely Younger CMA - 06/23/2019 11:57 AM CST Panel Management Review Patient has the following on her problem list: Depression / Dysthymia review Measure: Needs PHQ-9 score of 4 or less during index window. Administer PHQ-9 and if score is 5 or more, send encounter to provider for next steps. 5 - 7 month window range: PHQ-9 SCORE 08/06/2018 10/22/2018 02/04/2019 PHQ-9 Total Score - - - PHQ-9 Total Score MyChart 13 (Moderate depression) - 10 (Moderate depression) PHQ-9 Total Score 13 7 10 If PHQ-9 recheck is 5 or more, route to provider for next steps. Patient is due for: PHQ9 Composite cancer screening Chart review shows that this patient is due/due soon for the following Pap Smear Summary: Patient is due/failing the following: PAP, PHQ9 and PHYSICAL Action needed: Patient needs office visit for physical, pap. and Patient needs to do PHQ9. Type of outreach: Sent [employer] message. Questions for provider review: None Ashely Younger MA Chart routed to Care Team . NG LAYER documented in this encounter Plan of Treatment Not on file documented as of this encounter Visit Diagnoses Not on filedocumented in this encounter Additional Health Concerns Assessment Noted Time PHQ-9 Depression Total Score: 10 019 2:36 PM CDT documented as of this encounter Care Teams Reverse Logistics Analyst Relationship Specialty Start Date End Date Nelson Arroyo PA-C [address] [place] [address] PCP - General Physician General Maintenance Helper - Medical 08/06/18 Salina Doherty MD Internal Medicine 12/01/14 Carrillo Ware APRN PACKAGING TECH [address] [place] [address] Nurse Practitioner Nurse Practitioner 12/16/14 Angelica Jerez NP [facility] [address] [place] [address] Nurse Practitioner Nurse Practitioner - Family 07/12/16 Nelson Arroyo PA-C [address] [place] [address] Assigned PCP 07/05/18 07/29/20 Chinyere Barbour Personal Advocate & Liaison (PAL) 01/31/20 04/26/20 Nelson Arroyo PA-C [address] [address] Assigned PCP 07/30/20 Pietro Wills MD [address] [place] [address] Assigned Heart and Vascular Provider 12/14/22 Tank Bucio MD [address], [address] [address] Physician fiscal specialist 12/01/23 documented as of this encounter
--- OUTSIDE RECORDS SUMMARY | 2024-06-02 17:02 | XMS_ITS | Encounter Summary ---
Author Organization [facility] Address [address] [place] [address]. [place] [address] Care Team Providers Care Station Usher Name Role Phone Salina Doherty MD Unavailable [phone] Carrillo Ware APRN MANUFACTURING ENGINEERING PROFESSOR Unavailable SolitarioAngelica golden NP Unavailable [phone] Nelson Arroyo PA-C Unavailable Nelson Arroyo PA-C Primary Care Provider Chinyere Barbour Unavailable Unavailable Nelson Arroyo PA-C Unavailable Pietro Wills MD Unavailable Tank Bucio MD Unavailable Reason for Visit * Reason Onset Date Comments Refill Request 07/14/2019 Encounter Details Date Type Department Care Team (Late st Contact Info) Description 07/14/[address] [facility] [address] [facility], [address] [place] [address] Nelson Arroyo PA-C [address] [place] [address] Refill Request Social History Tobacco [...] PM CDT 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:44 AM DISTRIBUTION OPERATIONS MANAGER Gender Identity Female 10/03/2020 8:33 PM CDT Sexual Orientation Straight 07/01/2018 3: 40 PM DISTRIBUTION OPERATIONS MANAGER documented as of this encounter Miscellaneous Notes * Telephone Encounter - Blanca Baker - 07/15/2019 7:56 AM CDT [employer] message sent Blanca Baker/ Water Meter Reader * Telephone Encounter - Nelson Arroyo PA-C - 07/15/2019 7:46 AM CDT I will order future labs for her. She was just here for a physical but we did not do labs. Please let her know she should find a time to do these. Nelson * Telephone Encounter - Zully Vidal RN - 07/15/2019 7:33 AM CDT Routing refill request to provider for review/approval because: Labs not current: Lipid panel, CBC, A1C or glucose Zully Vidal RN, BSN documented in this encounter Plan of Treatment Not on file documented as of this encounter Visit Diagnoses Diagnosis Routine general medical examination at a health care facility- Primary Generalized anxiety disorder Major depressive disorder, recurrent episode, moderate (H) Major depressive disorder, recurrent episode, moderate documented in this encounter Additional Health Concerns Assessment Noted Time PHQ-9 Depression Total Score: 10 020 3:04 PM DISTRIBUTION OPERATIONS MANAGER documented as of this encounter Care Teams Station Usher Relationship Specialty Start Date End Date Nelson Arroyo PA-C [address] [place] [address] PCP - General Physician Halftone Operator - Medical 08/06/18 Salina Doherty MD Internal Medicine 12/01/14 Carrillo Ware APRN MANUFACTURING ENGINEERING PROFESSOR [address] [place] [address] Nurse Practitioner Nurse Practitioner 12/16/14 Angelica Jerez NP [facility] [address] [place] [address] Nurse Practitioner Nurse Practitioner - Family 07/12/16 Nelson Arroyo PA-C [address] [place] [place] [address] Assigned PCP 07/05/18 07/29/20 Chinyere Barbour Personal Advocate & Liaison (PAL) 01/31/20 04/26/20 Nelson Arroyo PA-C [address] [place] [address] Assigned PCP 07/30/20 Pietro Wills MD [address] [place] [address] Assigned Heart and Vascular Provider 12/14/22 Tank Bucio MD [address] [facility] 100 [place] [address] Physician crane hooker 12/01/23 documented as of this encounter
--- OUTSIDE RECORDS SUMMARY | 2024-06-02 17:02 | XMS_ITS | Encounter Summary ---
Author Organization [facility] Address [address] [place] [address]. [place] [address] Care Team Providers Care Supervisor Cigar Making Machine Name Role Phone Salina Doherty MD Unavailable [phone] Carrillo Ware APRN E LEARNING COORDINATOR Unavailable SolitarioAngelica golden NP Unavailable [phone] Nelson Arroyo PA-C Primary Care Provider Nelson Arroyo PA-C Unavailable Pietro Wills MD Unavailable Tank Bucio MD Unavailable Reason for Visit * Reason Comments Medication Refill Encounter Details Date Type Department Care Team (Late st Contact Info) Description 09/21/[address], [address] [place] [address] Nelson Arroyo PA-C [address] [place] [address] Medication Refill Social History Tobacco [...] PM CDT 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:44 AM LAW TUTOR Gender Identity Female 10/03/2020 8:33 PM CDT Sexual Orientation Straight 07/01/2018 3: 40 PM LAW TUTOR documented as of this encounter Miscellaneous Notes * Telephone Encounter - Minda Vergara RN - 10/06/2020 9:39 AM CDT clonazePAM (KLONOPIN) 0.5 MG tablet Last Written Prescription Date: 07/13/20 Last Fill Quantity: 20, # refills: 0 Last Office Visit: 08/15/20 Future Office visit: Next 5 appointments (look out 90 days) Oct 18, 2020 5:15 PM [employer] Short with Nelson Arroyo PA-C [facility] ([facility] ) [address] [place] [address] Routing refill request to provider for review/approval because: Due to drug interactions and Controlled substance Minda Vergara RN on 10/06/2020 at 9:40 AM * Telephone Encounter - Jasvir Mejia - 10/06/2020 9:15 AM CDT Patient has appt on 10/18/20 Needs temp refill. * Telephone Encounter - Jasvir Mejia - 09/29/2020 7:28 AM CDT Mailed out letter * Telephone Encounter - Jasvir Mejia - 09/22/2020 11:50 AM CDT 1st attempt, sent [employer] message to schedule appt * Telephone Encounter - Minda Vergara RN - 09/22/2020 11:44 AM CDT Patient due for a medication check. Will forward to TC's to assist with scheduling. Minda Vergara RN on 09/22/2020 at 11:45 AM documented in this encounter Plan of Treatment Not on file documented as of this encounter Visit Diagnoses Diagnosis Persistent insomnia Persistent disorder of initiating or maintaining sleep Major depressive disorder, recurrent episode, moderate (H) Major depressive disorder, recurrent episode, moderate Generalized anxiety disorder documented in this encounter Additional Health Concerns Assessment Noted Time PHQ-9 Depression Total Score: 6 07/14/19 21 3:35 PM LAW TUTOR documented as of this encounter Care Teams Supervisor Cigar Making Machine Relationship Specialty Start Date End Date Nelson Arroyo PA-C [address] [place] [address] PCP - General Physician Pressure Vessel Inspector - Medical 08/06/18 Salina Doherty MD Internal Medicine 12/01/14 Carrillo Ware APRN CNP [address] [place] [address] Nurse Practitioner Nurse Practitioner 12/16/14 Angelica Jerez NP [address] [address] Nurse Practitioner Nurse Practitioner - Family 07/12/16 Nelson Arroyo PA-C [address] [address] Assigned PCP 07/30/20 Pietro Wills MD [address] [place] [address] Assigned Heart and Vascular Provider 12/14/22 Tank Bucio MD [address] [facility] [address] [place] [address] Physician nuisance animal damage control agent 12/01/23 documented as of this encounter
--- OUTSIDE RECORDS SUMMARY | 2024-06-02 17:02 | XMS_ITS | Encounter Summary ---
Author Organization [facility] Address [address] [place] [address] Care Team Providers Care Edge Burnisher Name Role Phone Salina Doherty MD Unavailable [phone] Carrillo Ware APRN PHARMACY HELPER Unavailable SolitarioAngelica golden NP Unavailable [phone] Nelson Arroyo PA-C Unavailable [phone] Nelson Arroyo PA-C Primary Care Provider [phone] Chinyere Barbour Unavailable Unavailable Nelson Arroyo PA-C Unavailable [phone] Pietro Wills MD Unavailable [phone] Tank Bucio MD Unavailable [phone] Encounter Details Date Type Department Care Team (Late st Contact Info) Description 11/12/2019 [facility] Medical Advice [address] [address] Blanca Baker Social History Tobacco [...] PM CDT 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:44 AM MEMBERSHIP SALES REPRESENTATIVE Gender Identity Female 10/03/2020 8:33 PM CDT Sexual Orientation Straight 07/01/2018 3: 40 PM MEMBERSHIP SALES REPRESENTATIVE documented as of this encounter Plan of Treatment Not on file documented as of this encounter Visit Diagnoses Not on filedocumented in this encounter Additional Health Concerns Assessment Noted Time PHQ-9 Depression Total Score: 7 09/29/19 20 7:04 AM CDT documented as of this encounter Care Teams Edge Burnisher Relationship Specialty Start Date End Date Nelson Arroyo PA-C [address] [address] PCP - General Physician Transition Specialist - Medical 08/06/18 Salina Doherty MD Internal Medicine 12/01/14 Carrillo Ware APRN PHARMACY HELPER [address] [place] [address] Nurse Practitioner Nurse Practitioner 12/16/14 Angelica Jerez NP [address] [address] Nurse Practitioner Nurse Practitioner - Family 07/12/16 Nelson Arroyo PA-C [address] [address] Assigned PCP 07/05/18 07/29/20 Chinyere Barbour Personal Advocate & Liaison (PAL) 01/31/20 04/26/20 Nelson Arroyo PA-C [address] [address] Assigned PCP 07/30/20 Pietro Wills MD [address] [place] [address] Assigned Heart and Vascular Provider 12/14/22 Tank Bucio MD [address] [facility] [address] [place] [address] Physician office technician 12/01/23 documented as of this encounter
--- OUTSIDE RECORDS SUMMARY | 2024-06-02 17:02 | XMS_ITS | Encounter Summary ---
Author Organization [facility] Address [address] [place] [address]. [place] [address] Care Team Providers Care Open Developer Operator Name Role Phone Salina Doherty MD Unavailable [phone] Carrillo Ware APRN FITNESS ATTENDANT Unavailable SolitarioAngelica golden NP Unavailable [phone] Nelson Arroyo PA-C Unavailable [phone] Nelson Arroyo PA-C Primary Care Provider Chinyere Barbour Unavailable Unavailable Nelson Arroyo PA-C Unavailable Pietro Wills MD Unavailable Tank Bucio MD Unavailable [phone] Reason for Visit * Reason Onset Date Comments MyChart Communication 10/11/2019 Encounter Details Date Type Department Care Team (Late st Contact Info) Description 10/11/[address] [facility] [address] [facility], [address] [place] [address] Nelson Arroyo PA-C [address] [place] [address] MyChart Communication Social History Tobacco [...] PM CDT 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:44 AM CHURCH WARDEN Gender Identity Female 10/03/2020 8:33 PM CDT Sexual Orientation Straight 07/01/2018 3: 40 PM CHURCH WARDEN documented as of this encounter Miscellaneous Notes * Telephone Encounter - Tarik Jaramillo RN - 10/12/2019 2:11 PM CDT [employer] message sent to patient per below. Tarik Tello RN * Telephone Encounter - Nelson Arroyo PA-C - 10/12/2019 1:00 PM CDT Is she taking this within 3 days of the unplanned encounter? (5 days can be max, but 3 days preferred) Does she need STD screening also? I will send in the Rx. Nelson documented in this encounter Plan of Treatment Not on file documented as of this encounter Visit Diagnoses Diagnosis High risk heterosexual behavior- Primary Problems related to high-risk sexual behavior documented in this encounter Additional Health Concerns Assessment Noted Time PHQ-9 Depression Total Score: 7 09/29/19 20 7:04 AM CDT documented as of this encounter Care Teams Open Developer Operator Relationship Specialty Start Date End Date Nelson Arroyo PA-C [address] [address] PCP - General Physician Farmworker Animal - Medical 08/06/18 Salina Doherty MD Internal Medicine 12/01/14 Carrillo Ware APRN FITNESS ATTENDANT [address] [place] [address] Nurse Practitioner Nurse Practitioner 12/16/14 Angelica Jerez PEDIATRIC LICENSED PRACTICAL NURSE [facility] [address] [place] [address] Nurse Practitioner Nurse Practitioner - Family 07/12/16 Nelson Arroyo PA-C [address] [place] [address] Assigned PCP 07/05/18 07/29/20 Chinyere Barbour Personal Advocate & Liaison (PAL) 01/31/20 04/26/20 Nelson Arroyo PA-C [address] [place] [address] Assigned PCP 07/30/20 Pietro Wills MD [address] [place] [address] Assigned Heart and Vascular Provider 12/14/22 Tank Bucio MD [address], [address] [address] Physician clerk television production 12/01/23 documented as of this encounter
--- OUTSIDE RECORDS SUMMARY | 2024-06-02 17:02 | XMS_ITS | Encounter Summary ---
Author Organization [facility] Address [address] [place] [address] Care Team Providers Care Continuous Pickling Line Pickler Name Role Phone Salina Doherty MD Unavailable [phone] Carrillo Ware APRN COGNOS Unavailable SolitarioAngelica golden NP Unavailable Nelson Arroyo PA-C Primary Care Provider [phone] Nelson Arroyo PA-C Unavailable [phone] Pietro Wills MD Unavailable [phone] Tank Bucio MD Unavailable [phone] Encounter Details Date Type Department Care Team (Late st Contact Info) Description 02/10/2023 [facility] Medical Advice [facility] [address] [place] [address] Sachi Barrera, RN Social History Tobacco Use Types Packs/Day [...] PM CDT 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:44 AM INTERNATIONAL ACCOUNTING MANAGER Gender Identity Female 10/03/2020 8:33 PM CDT Sexual Orientation Straight 07/01/2018 3: 40 PM INTERNATIONAL ACCOUNTING MANAGER documented as of this encounter Plan of Treatment Not on file documented as of this encounter Visit Diagnoses Not on filedocumented in this encounter Additional Health Concerns Assessment Noted Time PHQ-9 Depression Total Score: 6 08/16/19 23 12:42 PM CDT documented as of this encounter Care Teams Continuous Pickling Line Pickler Relationship Specialty Start Date End Date Nelson Arroyo PA-C [address] [place] [address] PCP - General Physician Network Administrator - Medical 08/06/18 Salina Doherty MD Internal Medicine 12/01/14 Carrillo Ware APRN COGNOS [address] [place] [address]85 Nurse Practitioner Nurse Practitioner 12/16/14 Angelica Jerez NP [address] [address]407 Nurse Practitioner Nurse Practitioner - Family 07/12/16 Nelson Arroyo PA-C [address] [address] Assigned PCP 07/30/20 Pietro Wills MD [address] [address] Assigned Heart and Vascular Provider 12/14/22 Tank Bucio MD [address], [facility] [address] [place] [address] Physician access consultant 12/01/23 documented as of this encounter
--- OUTSIDE RECORDS SUMMARY | 2024-06-02 17:02 | XMS_ITS | Encounter Summary ---
Author Organization [facility] Address [address] [place] [address] Care Team Providers Care Oncology Admin Name Role Phone Salina Doherty MD Unavailable [phone] Carrillo Ware APRN MARINE ARCHITECT Unavailable SolitarioAngelica golden NP Unavailable [phone] Nelson Arroyo PA-C Primary Care Provider Nelson Arroyo PA-C Unavailable [phone] Pietro Wills MD Unavailable [phone] Tank Bucio MD Unavailable [phone] Encounter Details Date Type Department Care Team (Late st Contact Info) Description 09/22/2020 My[facility] Medical Advice [address] [address] Jasvir Mejia Social History Tobacco Use Types Packs/Day Years [...] PM CDT 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:44 AM LOAD MANAGER Gender Identity Female 10/03/2020 8:33 PM CDT Sexual Orientation Straight 07/01/2018 3: 40 PM LOAD MANAGER documented as of this encounter Plan of Treatment Not on file documented as of this encounter Visit Diagnoses Not on filedocumented in this encounter Additional Health Concerns Assessment Noted Time PHQ-9 Depression Total Score: 6 07/14/19 21 3:35 PM LOAD MANAGER documented as of this encounter Care Teams Oncology Admin Relationship Specialty Start Date End Date Nelson Arroyo PA-C [address] [place] [address] PCP - General Physician Senior It Project Manager - Medical 08/06/18 Salina Doherty MD Internal Medicine 12/01/14 Carrillo Ware APRN MARINE ARCHITECT [address] [place] [address]75 Nurse Practitioner Nurse Practitioner 12/16/14 Angelica Jerez NP [facility] [address] [place], [place] [address] Nurse Practitioner Nurse Practitioner - Family 07/12/16 Nelson Arroyo PA-C [address] [place] [address] Assigned PCP 07/30/20 Pietro Wills MD [address] [place] [place] [address] Assigned Heart and Vascular Provider 12/14/22 Tank Bucio MD [address], [address] [address] Physician tie tape machine operator 12/01/23 documented as of this encounter
--- OUTSIDE RECORDS SUMMARY | 2024-06-02 17:02 | XMS_ITS | Encounter Summary ---
Author Organization [place] Address [address] [place] [address]. [place] [address] Care Team Providers Care Pitting Machine Operator Name Role Phone Salina Doherty MD Unavailable [phone] Carrillo Ware APRN FEED ELEVATOR WORKER Unavailable SolitarioAngelica golden NP Unavailable [phone] Nelson Arroyo PA-C Unavailable [phone] Nelson Arroyo PA-C Primary Care Provider Chinyere Barbour Unavailable Unavailable Nelson Arroyo PA-C Unavailable Pietro Wills MD Unavailable Tank Bucio MD Unavailable Encounter Details Date Type Department Care Team (Late st Contact Info) Description 04/25/2020 [facility] Medical Advice [address] [address] Nelson Arroyo PA-C [address] [place] [address] Social History Tobacco Use Types [...] PM CDT 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:44 AM SHIP'S SURVEYOR Gender Identity Female 10/03/2020 8:33 PM CDT Sexual Orientation Straight 07/01/2018 3: 40 PM SHIP'S SURVEYOR documented as of this encounter Plan of Treatment Not on file documented as of this encounter Visit Diagnoses Not on filedocumented in this encounter Additional Health Concerns Assessment Noted Time PHQ-9 Depression Total Score: 5 03/03/20 20 7:03 AM CDT documented as of this encounter Care Teams Pitting Machine Operator Relationship Specialty Start Date End Date Nelson Arroyo PA-C [address] [place] [address] PCP - General Physician Decorator Hand - Medical 08/06/18 Salina Doherty MD Internal Medicine 12/01/14 Carrillo Ware APRN FEED ELEVATOR WORKER [address] [place] [address]6625 Nurse Practitioner Nurse Practitioner 12/16/14 Angelica Jerez NP [place] [address] [place] [address] Nurse Practitioner Nurse Practitioner - Family 07/12/16 Nelson Arroyo PA-C [address] [address] Assigned PCP 07/05/18 07/29/20 Chinyere Barbour Personal Advocate & Liaison (PAL) 01/31/20 04/26/20 Nelson Arroyo PA-C [address] [place] [address] Assigned PCP 07/30/20 Pietro Wills MD [address] [place] [address] Assigned Heart and Vascular Provider 12/14/22 Tank Bucio MD [address] [facility], [address] [address] Physician diamond sawer 12/01/23 documented as of this encounter
--- OUTSIDE RECORDS SUMMARY | 2024-06-02 17:02 | XMS_ITS | Encounter Summary ---
Author Organization [place] Address [address] [place] [address]. [place] [address] Care Team Providers Care General Engineer Name Role Phone Salina Doherty MD Unavailable [phone] Carrillo Ware APRN RECRUITMENT SPECIALIST Unavailable [phone] SolitarioAngelica golden NP Unavailable [phone] Nelson Arroyo PA-C Unavailable [phone] Nelson Arroyo PA-C Primary Care Provider Chinyere Barbour Unavailable Unavailable Nelson Arroyo PA-C Unavailable [phone] Pietro Wills MD Unavailable [phone] Tank Bucio MD Unavailable Reason for Visit * Reason Onset Date Comments Lab Only 08/03/2019 Encounter Details Date Type Department Care Team (Late st Contact Info) Description 08/03/2019 MyC Medical Advice [facility] [address] [facility], [address] [place] [address] Nelson Arroyo PA-C [address] [place] [address] Lab Only Social History Tobacco Use Types Packs/Day Years [...] PM CDT 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:44 AM INCINERATOR PLANT LABORER Gender Identity Female 10/03/2020 8:33 PM CDT Sexual Orientation Straight 07/01/2018 3: 40 PM INCINERATOR PLANT LABORER documented as of this encounter Plan of Treatment Not on file documented as of this encounter Visit Diagnoses Not on filedocumented in this encounter Additional Health Concerns Assessment Noted Time PHQ-9 Depression Total Score: 10 020 3:04 PM INCINERATOR PLANT LABORER documented as of this encounter Care Teams General Engineer Relationship Specialty Start Date End Date Nelson Arroyo PA-C [address] [place] [address] PCP - General Physician Container Packer Operator - Medical 08/06/18 Salina Doherty MD Internal Medicine 12/01/14 Carrillo Ware APRN RECRUITMENT SPECIALIST [address] [place] [address] Nurse Practitioner Nurse Practitioner 12/16/14 Angelica Jerez NP [place] [address] [place] [address] Nurse Practitioner Nurse Practitioner - Family 07/12/16 Nelson Arroyo PA-C [address] [place] [address] Assigned PCP 07/05/18 07/29/20 Chinyere Barbour Personal Advocate & Liaison (PAL) 01/31/20 04/26/20 Nelson Arroyo PA-C [address] [place] [address] Assigned PCP 07/30/20 Pietro Wills MD [address] [place] [address] Assigned Heart and Vascular Provider 12/14/22 Tank Bucio MD [address], [address] [place], [place] [address] Physician weather teacher 12/01/23 documented as of this encounter
--- OUTSIDE RECORDS SUMMARY | 2024-06-02 17:02 | XMS_ITS | Encounter Summary ---
Author Organization [facility] Address [address] [place] [address] Care Team Providers Care Atomic Fuel Assembler Name Role Phone Salina Doherty MD Unavailable Carrillo Ware APRN STAFF INTERNIST OFFICE BASED ONLY Unavailable SolitarioAngelica golden NP Unavailable [phone] Nelson Arroyo PA-C Primary Care Provider Nelson Arroyo PA-C Unavailable [phone] Pietro Wills MD Unavailable Tank Bucio MD Unavailable [phone] Encounter Details Date Type Department Care Team (Late st Contact Info) Description 08/24/2020 MyC Medical Advice [address] [address] Jocelyn Joyner Social History Tobacco Use Types Packs/Day Years [...] PM CDT 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:44 AM EMPLOYMENT SERVICE SPECIALIST Gender Identity Female 10/03/2020 8:33 PM CDT Sexual Orientation Straight 07/01/2018 3: 40 PM EMPLOYMENT SERVICE SPECIALIST documented as of this encounter Plan of Treatment Not on file documented as of this encounter Visit Diagnoses Not on filedocumented in this encounter Additional Health Concerns Assessment Noted Time PHQ-9 Depression Total Score: 6 07/14/19 21 3:35 PM EMPLOYMENT SERVICE SPECIALIST documented as of this encounter Care Teams Atomic Fuel Assembler Relationship Specialty Start Date End Date Nelson Arroyo PA-C [address] [place] [address] PCP - General Physician Data Analytics Analyst - Medical 08/06/18 Salina Doherty MD Internal Medicine 12/01/14 Carrillo Ware APRN STAFF INTERNIST OFFICE BASED ONLY [address] [place] [address]005 Nurse Practitioner Nurse Practitioner 12/16/14 Angelica Jerez NP [facility] [address] [place], [place] [address] Nurse Practitioner Nurse Practitioner - Family 07/12/16 Nelson Arroyo PA-C [address] [place] [address] Assigned PCP 07/30/20 Pietro Wills MD [address] [place] 020355 Assigned Heart and Vascular Provider 12/14/22 Tank Bucio MD [address], [address] [address] Physician motion picture projectionist 12/01/23 documented as of this encounter
--- OUTSIDE RECORDS SUMMARY | 2024-06-02 17:02 | XMS_ITS | Encounter Summary ---
Author Organization [facility] Address [address] [place] [address]. [place] [address] Care Team Providers Care Lumber Sorter Name Role Phone Salina Doherty MD Unavailable [phone] Carrillo Ware APRN CLASSIFICATION AND TREATMENT DIRECTOR Unavailable SolitarioAngelica golden NP Unavailable [phone] Nelson Arroyo PA-C Unavailable Nelson Arroyo PA-C Primary Care Provider Chinyere Barbour Unavailable Unavailable Nelson Arroyo PA-C Unavailable Pietro Wills MD Unavailable Tank Bucio MD Unavailable Reason for Visit * Reason Onset Date Comments Refill Request 06/16/2019 Trazodone Encounter Details Date Type Department Care Team (Late st Contact Info) Description 06/16/2019 MyC Refill [facility] [address] [facility], [address] [place] [address] Nelson Arroyo PA-C [address] [place] [address] Refill Request (Trazodone ) Social History Tobacco Use Types Packs/Day [...] PM CDT 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:44 AM APPOINTMENT COORDINATOR Gender Identity Female 10/03/2020 8:33 PM CDT Sexual Orientation Straight 07/01/2018 3: 40 PM APPOINTMENT COORDINATOR documented as of this encounter Miscellaneous Notes * Telephone Encounter - Maude Singh RN - 06/18/2019 3:05 PM CST Duplicate. Maude Singh RN INTMENT COORDINATOR documented in this encounter Plan of Treatment Not on file documented as of this encounter Visit Diagnoses Diagnosis Persistent insomnia Persistent disorder of initiating or maintaining sleep documented in this encounter Additional Health Concerns Assessment Noted Time PHQ-9 Depression Total Score: 10 019 2:36 PM CDT documented as of this encounter Care Teams Lumber Sorter Relationship Specialty Start Date End Date Nelson Arroyo PA-C [address] [place] [address] PCP - General Physician Blanket Folder - Medical 08/06/18 Salina Doherty MD Internal Medicine 12/01/14 Carrillo Ware APRN CLASSIFICATION AND TREATMENT DIRECTOR [address] [place] [address] 611895 Nurse Practitioner Nurse Practitioner 12/16/14 Angelica Jerez NP [address] 570[address] Nurse Practitioner Nurse Practitioner - Family 07/12/16 Nelson Arroyo PA-C [address] [address] Assigned PCP 07/05/18 07/29/20 Chinyere Barbour Personal Advocate & Liaison (PAL) 01/31/20 04/26/20 Nelson Arroyo PA-C [address] [address] Assigned PCP 07/30/20 Pietro Wills MD [address] [place] [address] Assigned Heart and Vascular Provider 12/14/22 Tank Bucio MD [address] [facility], [address] [address] Physician pedigree researcher 12/01/23 documented as of this encounter
--- OUTSIDE RECORDS SUMMARY | 2024-06-02 17:02 | XMS_ITS | Encounter Summary ---
Author Organization [facility] Address [address] [place] [address]. [place] [address] Care Team Providers Care Grab Hooker Name Role Phone Salina Doherty MD Unavailable Carrillo Ware APRN LOWER SCHOOL MUSIC TEACHER Unavailable SolitarioAngelica golden NP Unavailable [phone] Nelson Arroyo PA-C Primary Care Provider [phone] Nelson Arroyo PA-C Unavailable [phone] Pietro Wills MD Unavailable Tank Bucio MD Unavailable Reason for Visit * Reason Onset Date Comments Refill Request 04/27/2024 Encounter Details Date Type Department Care Team (Late st Contact Info) Description 04/27/2024 [facility] [address] [place] [address] Nelson Arroyo PA-C [address] [place] [address] Refill Request Social History Tobacco [...] re latives? Once a week 11/24/2023 Attends [employer] Services Not on file 11/23 Active Member of Clubs or Organizations Not on f ile 11/24/2023 Attends Club or Organization Meetings Not on asia e 11/24/2023 Marital Status Not on file 11/24/2023 PHQ-2 Answer Date Recorded PHQ-2 Score 0 11/24/2023 [facility] - Occupational Stress [...] in an abandoned building, in an overnight jail, or couch-surfing.) Yes 11/24/2023 Are you worried [...] PM CDT 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:44 AM CONCRETE CURER Gender Identity Female 10/03/2020 8:33 PM CDT Sexual Orientation Straight 07/01/2018 3: 40 PM CONCRETE CURER documented as of this encounter Plan of Treatment Not on file documented as of this encounter Visit Diagnoses Diagnosis Elevated blood pressure reading without diagnosis of hypertension documented in this encounter Additional Health Concerns Assessment Noted Time PHQ-9 Depression Total Score: 7 11/23/19 24 1:47 PM CDT documented as of this encounter Care Teams Grab Hooker Relationship Specialty Start Date End Date Nelson Arroyo PA-C [address] [place] [address] PCP - General Physician Leather Colorer - Medical 08/06/18 Salina Doherty MD Internal Medicine 12/01/14 Carrillo Ware APRN L[employer] SCHOOL MUSIC TEACHER [address] [place] [address] Nurse Practitioner Nurse Practitioner 12/16/14 Angelica Jerez NP [address] 629367 Nurse Practitioner Nurse Practitioner - Family 07/12/16 Nelson Arroyo PA-C [address] [place] [address] Assigned PCP 07/30/20 Pietro Wills MD [address] [place] [address] Assigned Heart and Vascular Provider 12/14/22 Tank Bucio MD [address] [facility] [address] [place] [address] Physician maintenance team member 12/01/23 documented as of this encounter
--- OUTSIDE RECORDS SUMMARY | 2024-06-02 17:02 | XMS_ITS | Encounter Summary ---
Author Organization [facility] Address [address] [place] [address]. [place] [address] Care Team Providers Care Bailer Operators Supervisor Name Role Phone Salina Doherty MD Unavailable [phone] Carrillo Ware APRN POCKET SETTER Unavailable [phone] SolitarioAngelica golden NP Unavailable [phone] Nelson Arroyo PA-C Unavailable Nelson Arroyo PA-C Primary Care Provider [phone] Chinyere Barbour Unavailable Unavailable Nelson Arroyo PA-C Unavailable [phone] Pietro Wills MD Unavailable Tank Bucio MD Unavailable Reason for Visit * Reason Onset Date Comments Appointment 06/29/2019 Encounter Details Date Type Department Care Team (Late st Contact Info) Description 06/29/2019 MyC Medical Advice [facility] [address] [place] [address], [address] [place] [address] Nelson Arroyo PA-C [address] [place] [address] Appointment Social History Tobacco Use Types Packs/Day Years [...] PM CDT 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:44 AM PRINCIPAL ANDROID DEVELOPER Gender Identity Female 10/03/2020 8:33 PM CDT Sexual Orientation Straight 07/01/2018 3: 40 PM PRINCIPAL ANDROID DEVELOPER documented as of this encounter Plan of Treatment Not on file documented as of this encounter Visit Diagnoses Not on filedocumented in this encounter Additional Health Concerns Assessment Noted Time PHQ-9 Depression Total Score: 10 019 2:36 PM CDT documented as of this encounter Care Teams Bailer Operators Supervisor Relationship Specialty Start Date End Date Nelson Arroyo PA-C [address] [place] [address] PCP - General Physician Audio Production Instructor - Medical 08/06/18 Salina Doherty MD Internal Medicine 12/01/14 Carrillo Ware APRN POCKET SETTER [address] [place] [address] Nurse Practitioner Nurse Practitioner 12/16/14 Angelica Jerez NP [place] [address] [place] [address] Nurse Practitioner Nurse Practitioner - Family 07/12/16 Nelson Arroyo PA-C [address] [place] [address] Assigned PCP 07/05/18 07/29/20 Chinyere Barbour Personal Advocate & Liaison (PAL) 01/31/20 04/26/20 Nelson Arroyo PA-C [address] [place] [address] Assigned PCP 07/30/20 Pietro Wills MD [address] [place] [address] Assigned Heart and Vascular Provider 12/14/22 Tank Bucio MD [address], [address] [place], [place] [address] Physician billing typist 12/01/23 documented as of this encounter
--- OUTSIDE RECORDS SUMMARY | 2024-06-02 17:02 | XMS_ITS | Encounter Summary ---
Author Organization [place] [facility] Address [address] [place] [address] Care Team Providers Care Currency Machine Operator Name Role Phone Salina Doherty MD Unavailable [phone] Carrillo Ware APRN U.[employer]. REVENUE OFFICER Unavailable SolitarioAngelica golden NP Unavailable [phone] Nelson Arroyo PA-C Unavailable [phone] Nelson Arroyo PA-C Primary Care Provider Chinyere Barbour Unavailable Unavailable Nelson Arroyo PA-C Unavailable [phone] Pietro Wills MD Unavailable [phone] Tank Bucio MD Unavailable [phone] Encounter Details Date Type Department Care Team (Late st Contact Info) Description 07/15/2019 MyC Medical Advice [facility] [address] [place] [address], [address] [place] [address] Blanca Baker Social History Tobacco Use Types [...] PM CDT 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:44 AM HEATING MECHANIC Gender Identity Female 10/03/2020 8:33 PM CDT Sexual Orientation Straight 07/01/2018 3: 40 PM HEATING MECHANIC documented as of this encounter Plan of Treatment Not on file documented as of this encounter Visit Diagnoses Not on filedocumented in this encounter Additional Health Concerns Assessment Noted Time PHQ-9 Depression Total Score: 10 020 3:04 PM HEATING MECHANIC documented as of this encounter Care Teams Currency Machine Operator Relationship Specialty Start Date End Date Nelson Arroyo PA-C [address] [address] PCP - General Physician Robotic Weld Technician - Medical 08/06/18 Salina Doherty MD Internal Medicine 12/01/14 Carrillo Ware APRN U.[place]. REVENUE OFFICER [address] [place] [address] Nurse Practitioner Nurse Practitioner 12/16/14 Angelica Jerez NP [address] [address] Nurse Practitioner Nurse Practitioner - Family 07/12/16 Nelson Arroyo PA-C [address] [address] Assigned PCP 07/05/18 07/29/20 Chinyere Barbour Personal Advocate & Liaison (PAL) 01/31/20 04/26/20 Nelson Arroyo PA-C [address] [address] Assigned PCP 07/30/20 Pietro Wills MD [address] [place] [address] Assigned Heart and Vascular Provider 12/14/22 Tank Bucio MD [address] [facility] 100 [place] [address] Physician dry cell battery assembler 12/01/23 documented as of this encounter
--- OUTSIDE RECORDS SUMMARY | 2024-06-02 17:02 | XMS_ITS | Encounter Summary ---
Author Organization [facility] Address [address] [place] [address] Care Team Providers Care Delinquent Notice Machine Operator Name Role Phone Salina Doherty MD Unavailable [phone] Carrillo Ware APRN SIGN MANUFACTURER Unavailable SolitarioAngelica golden NP Unavailable [phone] Nelson Arroyo PA-C Unavailable [phone] Nelson Arroyo PA-C Primary Care Provider Nelson Arroyo PA-C Unavailable [phone] Pietro Wills MD Unavailable [phone] Tank Bucio MD Unavailable [phone] Encounter Details Date Type Department Care Team (Late st Contact Info) Description 05/04/2020 MyC Medical Advice [address] [address] Galina Blake, RN Social History Tobacco Use Types Packs/Day [...] PM CDT 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:44 AM SPEAR FISHER Gender Identity Female 10/03/2020 8:33 PM CDT Sexual Orientation Straight 07/01/2018 3: 40 PM SPEAR FISHER documented as of this encounter Plan of Treatment Not on file documented as of this encounter Visit Diagnoses Not on filedocumented in this encounter Additional Health Concerns Assessment Noted Time PHQ-9 Depression Total Score: 5 03/03/20 20 7:03 AM CDT documented as of this encounter Care Teams Delinquent Notice Machine Operator Relationship Specialty Start Date End Date Nelson Arroyo PA-C [address] [place] [address] PCP - General Physician Supply Chain Coordinator - Medical 08/06/18 Salina Doherty MD Internal Medicine 12/01/14 Carrillo Ware APRN CNP [address] [place] [address] Nurse Practitioner Nurse Practitioner 12/16/14 Angelica Jerez NP [address] [address] Nurse Practitioner Nurse Practitioner - Family 07/12/16 Nelson Arroyo PA-C [address] [address] Assigned PCP 07/05/18 07/29/20 Nelson Arroyo PA-C [address] [address] Assigned PCP 07/30/20 Pietro Wills MD [address] [address] Assigned Heart and Vascular Provider 12/14/22 Tank Bucio MD [address], [facility] 100 [place] [address] Physician transit operations supervisor 12/01/23 documented as of this encounter
--- OUTSIDE RECORDS SUMMARY | 2024-06-02 17:02 | XMS_ITS | Encounter Summary ---
Author Organization [facility] Address [address] [place] [address]. [place] [address] Care Team Providers Care Ecological Modeler Name Role Phone Salina Doherty MD Unavailable [phone] Carrillo Ware APRN MORTUARY BEAUTICIAN Unavailable SolitarioAngelica golden NP Unavailable [phone] Nelson Arroyo PA-C Unavailable [phone] Nelson Arroyo PA-C Primary Care Provider Chinyere Barbour Unavailable Unavailable Nelson Arroyo PA-C Unavailable [phone] Pietro Wills MD Unavailable [phone] Tnak Bucio MD Unavailable Reason for Visit * Reason Onset Date Comments Refill Request 06/16/2019 Seroquel 300mg Encounter Details Date Type Department Care Team (Late st Contact Info) Description 06/16/2019 MyC Refill [facility] [address] [facility], [address] [place] [address] [place] [address] [place] [address] Refill Request (Seroquel 300mg) Social History Tobacco Use Types [...] PM CDT 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:44 AM FEED MANAGER Gender Identity Female 10/03/2020 8:33 PM CDT Sexual Orientation Straight 07/01/2018 3: 40 PM FEED MANAGER documented as of this encounter Miscellaneous Notes * Telephone Encounter - Nelson Arroyo PA-C - 06/21/2019 1:41 PM FEED MANAGER I will fill for one month-- I see she has an appointment. Due for labs. Nelson MANAGER * Telephone Encounter - Maude Singh RN - 06/18/2019 3:06 PM CST Routing refill request to provider for review/approval because: Labs not current: Needs yearly Lipid, CBC and A1c. Maude Singh RN Seroquel 300mg Last Written Prescription Date: 03/31/2019 Last Fill Quantity: 30, # refills: 2 Last office visit: 02/04/2019 with prescribing provider: Future Office Visit: Next 5 appointments (look out 90 days) Jun 30, 2019 3:00 PM FEED MANAGER MyChart Short with Nelson Arroyo PA-C [facility] [id number] [place] [address], [facility] [address] [facility] [address] Requested Prescriptions Pending Prescriptions Disp Refills ??? QUEtiapine (SEROQUEL) 300 MG tablet 30 tablet 2 Sig: TAKE ONE TABLET BY MOUTH AT BEDTIME Antipsychotic Medications Failed - 06/16/2019 11:25 PM Failed - Lipid panel on file within [...] & Orders section of the refill encounter. MANAGER documented in this encounter Plan of Treatment Not on file documented as of this encounter Visit Diagnoses Diagnosis Generalized anxiety disorder Major depressive disorder, recurrent episode, moderate (H) Major depressive disorder, recurrent episode, moderate documented in this encounter Additional Health Concerns Assessment Noted Time PHQ-9 Depression Total Score: 10 019 2:36 PM CDT documented as of this encounter Care Teams Ecological Modeler Relationship Specialty Start Date End Date Nelson Arroyo PA-C [address] [place] [address] PCP - General Physician Segment Block Layer - Medical 08/06/18 Salina Doherty MD Internal Medicine 12/01/14 Carrillo Ware APRN MORTUARY BEAUTICIAN [address] [place] [address] Nurse Practitioner Nurse Practitioner 12/16/14 Angelica Jerez, SALES FLOOR ASSOCIATE [facility] [address] [place] [address] Nurse Practitioner Nurse Practitioner - Family 07/12/16 Nelson Arroyo PA-C [address] [place] [address] Assigned PCP 07/05/18 07/29/20 Chinyere Barbour Personal Advocate & Liaison (PAL) 01/31/20 04/26/20 Nelson Arroyo PA-C [address] [place] [address] Assigned PCP 07/30/20 Pietro Wills MD [address] [place] [address] Assigned Heart and Vascular Provider 12/14/22 Tank Bucio MD [address] [facility] [address] [place] [address] Physician receiving specialist 12/01/23 documented as of this encounter
--- OUTSIDE RECORDS SUMMARY | 2024-06-02 17:02 | XMS_ITS | Encounter Summary ---
Author Organization [facility] Address [address] [place] [address]. [place] [address] Care Team Providers Care Launching Pad Mechanic Name Role Phone Salina Doherty MD Unavailable [phone] Carrillo Ware APRN BIOMETRIC TECHNICIAN Unavailable [phone] SolitarioAngelica golden NP Unavailable [phone] Nelson Arroyo PA-C Unavailable Nelson Arroyo PA-C Primary Care Provider Chinyere Barbour Unavailable Unavailable Nelson Arroyo PA-C Unavailable Pietro Wills MD Unavailable [phone] Tank Bucio MD Unavailable Reason for Visit * Reason Onset Date Comments Refill Request 06/14/2019 Tizanidine 4mg Encounter Details Date Type Department Care Team (Late st Contact Info) Description 06/14/2019 MyC Refill [place] [id number] [facility], [address] [place] [address] Nelson Arroyo PA-C [address] [place] [address] Refill Request (Tizanidine 4mg) Social History Tobacco Use Types Packs/Day Years [...] PM CDT 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:44 AM SAGGER MAKER Gender Identity Female 10/03/2020 8:33 PM CDT Sexual Orientation Straight 07/01/2018 3: 40 PM SAGGER MAKER documented as of this encounter Miscellaneous Notes * Telephone Encounter - Maude Singh RN - 06/17/2019 1:38 PM CST Tizanidine 4mg Last Written Prescription Date: 04/06/2019 Last Fill Quantity: 120, # refills: 1 Last Office Visit: 02/04/2019 Future Office visit: Next 5 appointments (look out 90 days) Jun 30, 2019 3:00 PM SAGGER MAKER MyChart Short with Nelson Arroyo PA-C [facility] [address] [place] [address], [address] [address] Routing refill request to provider for review/approval because: Drug not on the G, P or [facility] refill protocol or controlled substance. Maude Singh RN ER MAKER documented in this encounter Plan of Treatment Not on file documented as of this encounter Visit Diagnoses Diagnosis Persistent insomnia Persistent disorder of initiating or maintaining sleep Muscle spasm Spasm of muscle Cervicalgia documented in this encounter Additional Health Concerns Assessment Noted Time PHQ-9 Depression Total Score: 10 019 2:36 PM CDT documented as of this encounter Care Teams Launching Pad Mechanic Relationship Specialty Start Date End Date Nelson Arroyo PA-C [address] [place] [address] PCP - General Physician Phonograph Mechanic - Medical 08/06/18 Salina Doherty MD Internal Medicine 12/01/14 Carrillo Ware APRN BIOMETRIC TECHNICIAN [address] [place] [address] Nurse Practitioner Nurse Practitioner 12/16/14 Angelica Jerez NP [facility] [address] [place] [address] Nurse Practitioner Nurse Practitioner - Family 07/12/16 Nelson Arroyo PA-C [address] [place] [address] Assigned PCP 07/05/18 07/29/20 Chinyere Barbour Personal Advocate & Liaison (PAL) 01/31/20 04/26/20 Nelson Arroyo PA-C [address] [place] [address] Assigned PCP 07/30/20 Pietro Wills MD [address] [place] [address] Assigned Heart and Vascular Provider 12/14/22 Tank Bucio MD [address], [facility] 100 [place] [address] Physician early head start director 12/01/23 documented as of this encounter
--- OUTSIDE RECORDS SUMMARY | 2024-06-02 17:03 | XMS_ITS | Encounter Summary ---
Author Organization [facility] Address [address] [place] [address]. [place] [address] Care Team Providers Care Seismograph Operator Helper Name Role Phone Salina Doherty MD Unavailable Carrillo Ware APRN SUPERVISOR AREA Unavailable SolitarioAngelica golden NP Unavailable [phone] Nelson Arroyo PA-C Primary Care Provider Nelson Arroyo PA-C Unavailable Pietro Wills MD Unavailable Tank Bucio MD Unavailable [phone] Reason for Visit * Reason Onset Date Comments Prior Auth - Medication 10/19/2020 EPINEPHr ine (ANY BX GENERIC EQUIV) 0.3 MG/0.3ML injection 2-pack Encounter Details Date Type Department Care Team (Late st Contact Info) Description 10/19/2020 Telephone [facility] [address] [place] [address] Nelson Arroyo PA-C [address] [place] [address] Prior Auth - Medication (EPINEPHrine (ANY BX GENERIC EQUIV) 0.3 MG/0.3ML injection 2-pack) Social History Tobacco Use Types Packs/Day Years [...] PM CDT 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:44 AM TELEMARKETING AGENT Gender Identity Female 10/03/2020 8:33 PM CDT Sexual Orientation Straight 07/01/2018 3: 40 PM TELEMARKETING AGENT COVID-19 Exposure Response Date Recorded In the last month, have you been in contact with someone who was confirmed or suspected to have Coronavirus / COVID-19? No / Unsure 10/18/2020 5:00 PM CDT documented as of this encounter Miscellaneous Notes * Telephone Encounter - Minda Vergara RN - 10/19/2020 11:41 AM CDT Pharmacy calling- they stated they were able to get the medication do go through. Prior Auth no longer needed. Minda Vergara RN on 10/19/2020 at 11:41 AM * Telephone Encounter - Ivette Bui - 10/19/2020 11:29 AM CDT Prior Authorization Retail Medication Request Medication/Dose: EPINEPHrine (ANY BX GENERIC EQUIV) 0.3 MG/0.3ML injection 2-pack ICD code (if different than what is on RX): Previously Tried and Failed: Rationale: Insurance Name: [facility] Bin: [id number] PCN: [id number] Group: [id number] Pharmacy Information (if different than what is on RX) Name: Phone: documented in this encounter Plan of Treatment Not on file documented as of this encounter Visit Diagnoses Not on filedocumented in this encounter Additional Health Concerns Assessment Noted Time PHQ-9 Depression Total Score: 4 10/19/19 21 5:12 PM CDT documented as of this encounter Care Teams Seismograph Operator Helper Relationship Specialty Start Date End Date Nelson Arroyo PA-C [address] [place] [place] [address] PCP - General Physician Lead Pastor - Medical 08/06/18 Salina Doherty MD Internal Medicine 12/01/14 Carrillo Ware APRN SUPERVISOR AREA [address] [place] [address] Nurse Practitioner Nurse Practitioner 12/16/14 Angelica Jerez NP [facility] [address] [place], [place] [address] Nurse Practitioner Nurse Practitioner - Family 07/12/16 Nelson Arroyo PA-C [address] [place] [address] Assigned PCP 07/30/20 Pietro Wlils MD [address] [place] [address] Assigned Heart and Vascular Provider 12/14/22 Tank Bucio MD [address], [address] [place], [place] [address] Physician supervisor concrete pipe plant 12/01/23 documented as of this encounter
--- OUTSIDE RECORDS SUMMARY | 2024-06-02 17:03 | XMS_ITS | Referral Summary ---
Author Organization [facility] Address [address] [place] [address] Care Team Providers Care Waiter/Waitress Dining Car Name Role Phone Salina Doherty MD Unavailable Carrillo Ware APRN SUPERVISOR WATERPROOFING Unavailable SolitarioAngelica golden NP Unavailable [phone] Nelson Saurez-C Primary Care Provider Nelson Suarez PA-C Unavailable Pietro Wills MD Unavailable Tank Bucio MD Unavailable Encounters Date Type Department Care Team Description 05/01/[address] [facility] [address] [place] [address] Nelson Suarez PA-C Elevated blood pressure reading without diagnosis of hypertension 05/01/[address] [facility] [address] [place] [address] Nelson Suarez PA-C Refill Request 04/27/[address] [facility] [address] [place] [address] Nelson Suarez PA-C Refill Request 04/06/[address] [facility] [address] [place] [address] Nelson Suarez PA-C Medication Refill from Last 3 Months Allergies Active Allergy Reactions Criticality Noted Date [...] 03/02/20 ASCUS, +HR HPV, not 16/18. Plan [place] bef 06/02/20 11/14/20 Lost to follow-up for pap tracking 01/31/21 [place] Bx's & ECC - negative ([facility]) 03/31/23 NIL pap, Neg HR HPV Plan cotest in 3 years Sinus tachycardia 07/05/2019 Persistent insomnia 06/30/2019 Palpitations 05/15/2018 Controlled substance agreeme nt signed. MECHANOTHERAPIST check05/13/18, no concerns 08/21/2015 Other specified attention [...] Benzodiazepine use reviewed by psychiatry: No Last [facility] website verification: done on 10.20.18 [email or web address] Major depressive disorder, recurrent episode, mo derate 09/10/2011 ODD (oppositional defiant disorder) 05/24/2011 Syncope 10/04/2010 Resolved Problems Problem Noted Date Diagnosed Date Resolved Date Morbid obesity 08/15/2022 11/24/2023 Adjustment disorder with dis turbance of conduct 09/10/2011 10/04/2016 Cannabis abuse, episodic 05/24/2011 Depression 05/24/2011 01/08/2015 Immunizations Name Administration Dates Next Due DTaP, [...] 12/27/2005,1999,09/25/1995,01/09,1994,1994 TDAP Vaccine (Adacel) 08/30/2016 Varicella 07/05/2009,09/25/1995 Social History Tobacco Use Types Packs/Day Years [...] re latives? Once a week 11/24/2023 Attends [employer] Services Not on file 11/23 Active Member of Clubs or Organizations Not on f ile 11/24/2023 Attends Club or Organization Meetings Not on asia e 11/24/2023 Marital Status Not on file 11/24/2023 PHQ-2 Answer Date Recorded PHQ-2 Score 0 11/24/2023 [facility] of Occupat ional Health - Occupational Stress [...] Answer Date Recorded Do you have housing? (Housin g is defined as stable permanent housing and does not include staying ouside in a car, in a tent, in an abandoned building, in an overnight [place] [facility] [place], or couch-surfing.) Yes 11/24/2023 Are you worried [...] PM CDT 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:44 AM RETENTION MANAGER Gender Identity Female 10/03/2020 8:33 PM CDT Sexual Orientation Straight 07/01/2018 3: 40 PM RETENTION MANAGER Last Filed Vital Signs Vital Sign Reading [...] 11/24/2023 1:20 PM CDT Plan of Treatment Not on file Procedures Procedure Name Priority Date/Time Associated Diagnosis Comments HPV HIGH RISK TYPES DNA CERVICAL Add-On 03/31/2023 2:16 PM RETENTION MANAGER ASCUS with positive high risk HPV cervical GYNECOLOGIC CYTOLOGY Routine 03/31/2023 2:16 PM RETENTION MANAGER Cervical cancer screening HEPATITIS C ANTIBODY Routine 12/27/2014 3:38 PM CDT Pain in joint, multiple sites Raynaud's syndrome Arthralgia of both knees Smoker HIV 1 AND 2 ANTIBODY (QUEST) Routine 05/24/2011 7:21 AM RETENTION MANAGER from Last 3 Months or Most Recently Relevant to Health Maintenance Results * Pap Screen reflex to HPV if ASCUS - recommend age 25 - 29 (03/31/2023 2:16 PM RETENTION MANAGER) Interpretation Negative for Intraepithelial Lesion or Malignancy (NILM) 04/03/2023 10:33 AM RETENTION MANAGER [facility] Comment Papanicolaou Test Limitations: Cervical cytology is a screening test with limited sensitivity, and regular screening is critical for cancer prevention. Pap tests are primarily effective for the diagnosis/prevent ion of squamous cell carcinoma, not adenocarcinoma or other cancers. 04/03/2023 10:33 AM RETENTION MANAGER [facility] Specimen Adequacy Satisfactory for evaluation, endocervical/angel sformation zone component absent 04/03/2023 10:33 AM RETENTION MANAGER [facility] Clinical Information none 04/03/2023 10:33 AM RETENTION MANAGER [facility] LMP/Menopause Date 03/12/2023 04/03/2023 10:33 AM RETENTION MANAGER [facility] Reflex Testing Yes if ASCUS 04/03/20 10:33 AM RETENTION MANAGER [facility] Previous Abnormal? Yes 04/03/2023 10:33 AM RETENTION MANAGER [facility] Previous Abnormal Diagnosis HPV 2020, ASCUS 04/03/2023 10:33 AM RETENTION MANAGER [facility] Performing Labs The technical component of this testing was completed at [facility] 04/03/2023 10:33 AM RETENTION MANAGER [facility] Brushing CERVIX UTERI STRUCTURE / Unknown Non-blood Collection / Unknown 03/31/2023 2:16 PM RETENTION MANAGER 03/31/2023 2:26 PM RETENTION MANAGER Nelson Suarez PA-C LAB - BEAKER AP Final Resul t [facility] Specialty Lab [address] [facility] [address] Building, Room [address] [address], [place] [phone] * HPV High Risk Types DNA Cervical (03/31/2023 2:16 PM RETENTION MANAGER) Other HR HPV Negative Negative 04/07/2023 8:30 AM RETENTION MANAGER [facility] HPV16 DNA Negative Negative 04/07/2023 8:30 AM RETENTION MANAGER [facility] HPV18 DNA Negative Negative 04/07/2023 8:30 AM RETENTION MANAGER [facility] FINAL DIAGNOSIS This patient's sample is negative for HPV DNA. This test was developed and its performance characteristics determined by the [facility], Molecular Diagnostics Laboratory. It has not been [...] clinical followup is recommended. 04/07/2023 8:30 AM RETENTION MANAGER [facility] Brushing CERVIX UTERI STRUCTURE / Unknown Non-blood Collection / Unknown 03/31/2023 2:16 PM RETENTION MANAGER 04/04/2023 9:26 AM RETENTION MANAGER Nelson Suarez PA-C LAB - BLOOD ORDERABLES Kalee l Result [facility] Molecular Diagnostics [address] [facility] [address], [address] [place] [address], [facility] [phone] * Hepatitis C antibody (12/27/2014 3:38 PM CDT) Pathologist [facility] Hepatitis C Antibody Nonreactive Assay performance characteristics have not been established for newborns, infants, and children NR [facility] Blood specimen (specimen) 12/27/2014 3:38 PM CDT 12/27/2014 3:40 PM CDT us Carrillo Ware APRN SUPERVISOR WATERPROOFING LAB - BLOOD ORDERABLE S Final Result [address] [address] * HIV 1 and 2 Antibody (05/24/2011 7:21 AM RETENTION MANAGER) Pathologist [facility] HIV 1&2 Antibody Negative NEG [facility] 05/24/2011 7:21 AM RETENTION MANAGER 05/24/2011 7:22 AM RETENTION MANAGER us Vidal Suarez MD LAB - BLOOD ORDERABLES Final Result [address] [address] from Last 3 Months or Most Recently Relevant to Health Maintenance Insurance [facility] * Guarantor: Nidia Crystal Account Type Relation to Patient Date of Phone Billing Address Medication Therapy Self [address] [place] [phone] Advance Directives For more information, please contact: [phone] * Full Code (Latest Code Status on File) Date Activated Date Inactivated Comments 05/23/2011 9:13 PM 05/28/2011 6:55 PM Care Teams Waiter/Waitress Dining Car Relationship Specialty Start Date End Date Nelson Suarez PA-C [address] [place] [address] PCP - General Physician Innovation Manager - Medical 08/06/18 Salina Doherty MD Internal Medicine 12/01/14 Carrillo Ware APRN SUPERVISOR WATERPROOFING [address] [place] [address] Nurse Practitioner Nurse Practitioner 12/16/14 Angelica Jerez NP [facility] [address] [place] [address] Nurse Practitioner Nurse Practitioner - Family 07/12/16 Nelson Suarez PA-C [address] [place] [address] Assigned PCP 07/30/20 Pietro Wills MD [address] [place] [address] Assigned Heart and Vascular Provider 12/14/22 Tank Bucio MD [address], [address] [id number] Physician supervisor tree fruit and nut farming 12/01/23
--- OUTSIDE RECORDS SUMMARY | 2024-06-02 17:03 | XMS_ITS | Encounter Summary ---
Author Organization [facility] Address [address] [place] [address]. [place] [address] Care Team Providers Care Farm Tractor Mechanic Name Role Phone Salina Doherty MD Unavailable Carrillo Ware APRN NURSE RESEARCH Unavailable SolitarioAngelica golden NP Unavailable [phone] Nelson Arroyo PA-C Primary Care Provider Nelson Arroyo PA-C Unavailable Pietro Wills MD Unavailable [phone] Tank Bucio MD Unavailable [phone] Encounter Details Date Type Department Care Team (Late st Contact Info) Description 11/21/2020 MyC Medical Advice [facility] [address] [place] [address] Nelson Arroyo PA-C [address] [place] [address] Social History Tobacco Use Types [...] PM CDT 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:44 AM DIABETES TERRITORY MANAGER Gender Identity Female 10/03/2020 8:33 PM CDT Sexual Orientation Straight 07/01/2018 3: 40 PM DIABETES TERRITORY MANAGER COVID-19 Exposure Response Date Recorded In the last month, have you been in contact with someone who was confirmed or suspected to have Coronavirus / COVID-19? No / Unsure 11/22/2020 5:00 PM CDT documented as of this encounter Miscellaneous Notes * Telephone Encounter - Kay Zambrano RN - 11/22/2020 9:08 AM CDT Left a message for the pt. Mycharted pt also. * Telephone Encounter - Kay Zambrano RN - 11/22/2020 8:54 AM CDT Will talk to Nelson Arroyo about this. documented in this encounter Plan of Treatment Not on file documented as of this encounter Visit Diagnoses Not on filedocumented in this encounter Additional Health Concerns Assessment Noted Time PHQ-9 Depression Total Score: 4 10/19/19 21 5:12 PM CDT documented as of this encounter Care Teams Farm Tractor Mechanic Relationship Specialty Start Date End Date Nelson Arroyo PA-C [address] [place] [address] PCP - General Physician Product Marketing Intern - Medical 08/06/18 Salina Doherty MD Internal Medicine 12/01/14 Carrillo Ware APRN NURSE RESEARCH [address] [place] [address] Nurse Practitioner Nurse Practitioner 12/16/14 Angelica Jerez NP [facility] [address] [place] [address] Nurse Practitioner Nurse Practitioner - Family 07/12/16 Nelson Arroyo PA-C [address] [place] [address] Assigned PCP 07/30/20 Pietro Wills MD [address] [place] [address] Assigned Heart and Vascular Provider 12/14/22 Tank Bucio MD [address], [facility] [address] [place] [address] Physician underwriting internship 12/01/23 documented as of this encounter
--- OUTSIDE RECORDS SUMMARY | 2024-06-02 17:03 | XMS_ITS | Encounter Summary ---
Author Organization [facility] Address [address] [place] [address]. [place] [address] Care Team Providers Care Custom Shop Worker Name Role Phone Salina Doherty MD Unavailable [phone] Carrillo Ware APRN CRADLE SLIDE MAKER Unavailable SolitarioAngelica golden NP Unavailable [phone] Nelson Arroyo PA-C Primary Care Provider Nelson Arroyo PA-C Unavailable [phone] Pietro Wills MD Unavailable Tank Bucio MD Unavailable Encounter Details Date Type Department Care Team (Late st Contact Info) Description 05/01/2024 MyC Medical Advice [facility] [address] [place] [address] Nelson Arroyo PA-C [address] [place] [address] Elevated blood pressure reading without diagnosis of hypertension Social History Tobacco Use Types Packs/Day Years [...] re latives? Once a week 11/24/2023 Attends Jewish Services Not on file 11/23 Active Member of Clubs or Organizations Not on f ile 11/24/2023 Attends Club or Organization Meetings Not on asia e 11/24/2023 Marital Status Not on file 11/24/2023 PHQ-2 Answer Date Recorded PHQ-2 Score 0 11/24/2023 [facility] - Occupational Stress [...] an overnight senior care, or couch-surfing.) Yes 11/24/2023 Are you worried [...] PM CDT 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:44 AM RUBBER STAMP ASSEMBLER Gender Identity Female 10/03/2020 8:33 PM CDT Sexual Orientation Straight 07/01/2018 3: 40 PM RUBBER STAMP ASSEMBLER documented as of this encounter Plan of Treatment Not on file documented as of this encounter Visit Diagnoses Diagnosis Elevated blood pressure reading without diagnosis of hypertension documented in this encounter Additional Health Concerns Assessment Noted Time PHQ-9 Depression Total Score: 7 11/23/19 24 1:47 PM CDT documented as of this encounter Care Teams Custom Shop Worker Relationship Specialty Start Date End Date Nelson Arroyo PA-C [address] [place] [address] PCP - General Physician Clerical Associate - Medical 08/06/18 Salina Doherty MD Internal Medicine 12/01/14 Carrillo Ware APRN CRADLE SLIDE MAKER [address] [place] [address] Nurse Practitioner Nurse Practitioner 12/16/14 Angelica Jerez NP [place] [address] [place], [place] [address] Nurse Practitioner Nurse Practitioner - Family 07/12/16 Nelson Arroyo PA-C [address] [address] [place] [address] Assigned PCP 07/30/20 Pietro Wills MD [address] [place] [address] Assigned Heart and Vascular Provider 12/14/22 Tank Bucio MD [address] [facility] [address] [place] [address] Physician revenue cycle analyst 12/01/23 documented as of this encounter
--- OUTSIDE RECORDS SUMMARY | 2024-06-02 17:03 | XMS_ITS | Encounter Summary ---
Author Organization [facility] Address [address] [place] [address]. [place] [address] Care Team Providers Care Crane Crew Supervisor Name Role Phone Salina Doherty MD Unavailable Carrillo Ware APRN NOTE KEEPER Unavailable SolitarioAngelica golden NP Unavailable [phone] Nelson Arroyo PA-C Primary Care Provider Nelson Arroyo PA-C Unavailable Pietro Wills MD Unavailable Tank Bucio MD Unavailable Reason for Visit * Reason Onset Date Comments Refill Request 05/01/2024 Encounter Details Date Type Department Care Team (Late st Contact Info) Description 05/01/2024 MyC [facility] [address] [place] [address] Nelson Arroyo PA-C [address] [place] [address] Refill Request Social History Tobacco [...] re latives? Once a week 11/24/2023 Attends Adventism Services Not on file 11/23 Active Member of Clubs or Organizations Not on f ile 11/24/2023 Attends Club or Organization Meetings Not on asia e 11/24/2023 Marital Status Not on file 11/24/2023 PHQ-2 Answer Date Recorded PHQ-2 Score 0 11/24/2023 [facility] - Occupational [...] in an abandoned building, in an overnight chcf, or couch-surfing.) Yes 11/24/2023 Are you worried [...] PM CDT 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:44 AM ICE DELIVERY DRIVER Gender Identity Female 10/03/2020 8:33 PM CDT Sexual Orientation Straight 07/01/2018 3: 40 PM ICE DELIVERY DRIVER documented as of this encounter Miscellaneous Notes * Telephone Encounter - Rae Hernandez RN - 05/03/2024 10:46 AM CST Duplicate - prescription request refused. DELIVERY DRIVER * Telephone Encounter - Rae Hernandez RN - 05/03/2024 10:45 AM CST Clinic RN: Please investigate patient's chart or contact patient if the information cannot be foundbecause the medication is listed as historical or discontinued. Confirm patient is taking this medication. Document findings and route refill encounter to provider for approval or denial. Rae Hernandez RN, BSN [facility] DELIVERY DRIVER documented in this encounter Plan of Treatment Not on file documented as of this encounter Visit Diagnoses Diagnosis Elevated blood pressure reading without diagnosis of hypertension documented in this encounter Additional Health Concerns Assessment Noted Time PHQ-9 Depression Total Score: 7 11/23/19 24 1:47 PM CDT documented as of this encounter Care Teams Crane Crew Supervisor Relationship Specialty Start Date End Date Nelson Arroyo PA-C [address] [place] [address] PCP - General Physician Field Manager - Medical 08/06/18 Salina Doherty MD Internal Medicine 12/01/14 Carrillo Ware APRN NOTE KEEPER [address] [place] [address] Nurse Practitioner Nurse Practitioner 12/16/14 Angelica Jerez NP [facility] [address] [place], [place] [address] Nurse Practitioner Nurse Practitioner - Family 07/12/16 Nelson Arroyo PA-C [address] [place] [address] Assigned PCP 07/30/20 Pietro Wills MD [address] [place] [address] Assigned Heart and Vascular Provider 12/14/22 Tank Bucio MD [address] [facility], [address] [address] Physician epic ambulatory specialists 12/01/23 documented as of this encounter
--- OUTSIDE RECORDS SUMMARY | 2024-06-02 17:03 | XMS_ITS | Encounter Summary ---
Author Organization [facility] Address [address] [place] [address]. [place] [address] Care Team Providers Care Scoreboard Operator Name Role Phone Salina Doherty MD Unavailable [phone] Carrillo Ware APRN REGISTERED LAND SURVEYOR Unavailable SolitarioAngelica golden NP Unavailable [phone] Nelson Arroyo PA-C Unavailable [phone] Nelson Arroyo PA-C Primary Care Provider [phone] Chinyere Barbour Unavailable Unavailable Nelson Arroyo PA-C Unavailable Pietro Wills MD Unavailable Tank Bucio MD Unavailable Reason for Visit * Reason Onset Date Comments MyChart Communication 12/22/2019 Allergic r eaction Encounter Details Date Type Department Care Team (Late st Contact Info) Description 12/22/2019 MyC Medical Advice [facility] [address] [facility], [address] [place] [address] Nelson Arroyo PA-C [address] [place] [address] MyChart Communication (Allergic reaction) Social History Tobacco Use Types Packs/Day Years [...] PM CDT 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:44 AM CERTIFIED EMERGENCY VEHICLE TECHNICIAN Gender Identity Female 10/03/2020 8:33 PM CDT Sexual Orientation Straight 07/01/2018 3: 40 PM CERTIFIED EMERGENCY VEHICLE TECHNICIAN documented as of this encounter Miscellaneous Notes * Telephone Encounter - Mello Ramires RN - 12/24/2019 9:19 AM CDT Patient read [facility] [employer] message 12/22 12PM, left voicemail for patient to return call Mello Ramires RN * Telephone Encounter - Mello Ramires RN - 12/23/2019 8:10 AM CDT Called patient and left voicemail to return call, also sent [facility] message to call, see [facility] message and triage regarding allergic reaction Mello Ramires RN documented in this encounter Plan of Treatment Not on file documented as of this encounter Visit Diagnoses Not on filedocumented in this encounter Additional Health Concerns Assessment Noted Time PHQ-9 Depression Total Score: 7 09/29/19 20 7:04 AM CDT documented as of this encounter Care Teams Scoreboard Operator Relationship Specialty Start Date End Date Nelson Arroyo PA-C [address] [place] [address] PCP - General Physician Insurance Business Analyst - Medical 08/06/18 Salina Doherty MD Internal Medicine 12/01/14 Carrillo Ware APRN REGISTERED LAND SURVEYOR [address] [place] [address] Nurse Practitioner Nurse Practitioner 12/16/14 Angelica Jerez NP [facility] [address] [place] [address] Nurse Practitioner Nurse Practitioner - Family 07/12/16 Nelson Arroyo PA-C [address] [place] [address] Assigned PCP 07/05/18 07/29/20 Chinyere Barbour Personal Advocate & Liaison (PAL) 01/31/20 04/26/20 Nelson Arroyo PA-C [address] [place] [address] Assigned PCP 07/30/20 Pietro Wills MD [address] [place] [address] Assigned Heart and Vascular Provider 12/14/22 Tank Bucio MD [address] [facility] [address] [place] [address] Physician senior science consultant 12/01/23 documented as of this encounter
--- OUTSIDE RECORDS SUMMARY | 2024-06-02 17:03 | XMS_ITS | Encounter Summary ---
Author Organization [facility] Address [address] [place] [address]. [place] [address] Care Team Providers Care Cost Control Specialist Name Role Phone Salina Doherty MD Unavailable [phone] Carrillo Ware APRN FLIGHT ENGINEER HELICOPTER Unavailable [phone] SolitarioAngelica golden NP Unavailable [phone] Nelson Arroyo PA-C Unavailable Nelson Arroyo PA-C Primary Care Provider Chinyere Barbour Unavailable Unavailable Nelson Arroyo PA-C Unavailable Pietro Wills MD Unavailable Tank Bucio MD Unavailable Reason for Visit * Reason Comments Medication Refill Encounter Details Date Type Department Care Team (Late st Contact Info) Description 02/07/[address], [address] [place] [address] Concepción Gonzalez APRN FLIGHT ENGINEER HELICOPTER [address] [place] [address] Medication Refill Social History Tobacco [...] documented as of this encounter Care Teams Cost Control Specialist Relationship Specialty Start Date End Date Nelson Arroyo PA-C [address] [place] [address] PCP - General Physician Entry Level Accounting Clerk - Medical 08/06/18 Salina Doherty MD Internal Medicine 12/01/14 Carrillo Ware APRN FLIGHT ENGINEER HELICOPTER [address] [place] [address] Nurse Practitioner Nurse Practitioner 12/16/14 Angelica Jerez NP [place] [address] [place] [address] Nurse Practitioner Nurse Practitioner - Family 07/12/16 Nelson Arroyo PA-C [address] [place] [address] Assigned PCP 07/05/18 07/29/20 Chinyere Barbour Personal Advocate & Liaison (PAL) 01/31/20 04/26/20 Nelson Arroyo PA-C [address] [place] [address] Assigned PCP 07/30/20 Pietro Wills MD [address] [place] [address] Assigned Heart and Vascular Provider 12/14/22 Tank Bucio MD [address] [place], [place] [address] Physician flexographic press plate setter 12/01/23 documented as of this encounter
--- OUTSIDE RECORDS SUMMARY | 2024-06-02 17:03 | XMS_ITS | Encounter Summary ---
Author Organization [facility] Address [address] [place] [address]. [place] [address] Care Team Providers Care Enrichment Director Name Role Phone Salina Doherty MD Unavailable [phone] Carrillo Ware APRN GREEN BUILDING ENGINEER Unavailable SolitarioAngelica golden NP Unavailable [phone] Nelson Arroyo PA-C Unavailable [phone] Nelson Arroyo PA-C Primary Care Provider Chinyere Barbour Unavailable Unavailable Nelson Arroyo PA-C Unavailable Pietro Wills MD Unavailable [phone] Tank Bucio MD Unavailable Reason for Visit * Reason Onset Date Comments Appointment 12/27/2019 med check, cough Encounter Details Date Type Department Care Team (Late st Contact Info) Description 12/27/2019 MyC Medical Advice [facility] [address] [facility], [address] [place] [address] Nelson Arroyo PA-C [address] [place] [address] Appointment (med check, cough) Social History Tobacco Use Types Packs/Day Years [...] PM CDT 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:44 AM COPY WRITER Gender Identity Female 10/03/2020 8:33 PM CDT Sexual Orientation Straight 07/01/2018 3: 40 PM COPY WRITER documented as of this encounter Miscellaneous Notes * Telephone Encounter - Jahaira Ya CMA - 12/30/2019 8:11 AM CDT LM to get appt scheduled Jahaira Ya CMA * Telephone Encounter - Blanca Baker - 12/28/2019 1:53 PM CDT Left message, please help patient schedule med check with Blanca Red/ Epic Trainer * Telephone Encounter - Maude Singh RN - 12/27/2019 12:50 PM CDT MyChart message sent to patient. Maude Singh RN documented in this encounter Plan of Treatment Not on file documented as of this encounter Visit Diagnoses Not on filedocumented in this encounter Additional Health Concerns Assessment Noted Time PHQ-9 Depression Total Score: 7 09/29/19 20 7:04 AM CDT documented as of this encounter Care Teams Enrichment Director Relationship Specialty Start Date End Date Nelson Arroyo PA-C [address] [place] [address] PCP - General Physician Insole Cementer - Medical 08/06/18 Salina Doherty MD Internal Medicine 12/01/14 Carrillo Ware APRN GREEN BUILDING ENGINEER [address] [place] [address] Nurse Practitioner Nurse Practitioner 12/16/14 Angelica Jerez RESIDENT SERVICE COORDINATOR [facility] [address] [place] [address] Nurse Practitioner Nurse Practitioner - Family 07/12/16 Nelson Arroyo PA-C [address] [place] [address] Assigned PCP 07/05/18 07/29/20 Chinyere Barbour Personal Advocate & Liaison (PAL) 01/31/20 04/26/20 Nelson Arroyo PA-C [address] [place] [address] Assigned PCP 07/30/20 Pietro Wills MD [address] [place] [address] Assigned Heart and Vascular Provider 12/14/22 Tank Bucio MD [address] [place] [address] Physician manufacturing lead 12/01/23 documented as of this encounter
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
--- OUTSIDE RECORDS SUMMARY | 2024-06-02 17:03 | XMS_ITS | Encounter Summary ---
Author Organization [employer] Address [address] [place] [address]. [place] [address] Care Team Providers Care Greens Or Grounds Superintendent Name Role Phone Salina Doherty MD Unavailable [phone] Carrillo Ware APRN ASTRONOMY INSTRUCTOR Unavailable SolitarioAngelica golden NP Unavailable [phone] Nelson Arroyo PA-C Primary Care Provider [phone] Nelson Arroyo PA-C Unavailable Pietro Wills MD Unavailable [phone] Tank Bucio MD Unavailable Reason for Visit * Reason Comments Medication Refill Encounter Details Date Type Department Care Team (Late st Contact Info) Description 10/30/2020 Refill [facility] [address] [place] [address] Nelson Arroyo PA-C [address] [place] [address] Medication Refill Social History Tobacco [...] PM CDT 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:44 AM WASTE TRANSPORTATION TECHNICIAN Gender Identity Female 10/03/2020 8:33 PM CDT Sexual Orientation Straight 07/01/2018 3: 40 PM WASTE TRANSPORTATION TECHNICIAN COVID-19 Exposure Response Date Recorded In the last month, have you been in contact with someone who was confirmed or suspected to have Coronavirus / COVID-19? No / Unsure 10/18/2020 5:00 PM CDT documented as of this encounter Miscellaneous Notes * Telephone Encounter - Minda Vergara RN - 10/31/2020 4:02 PM CDT tiZANidine (ZANAFLEX) 4 MG tablet Last Written Prescription Date: 07/13/20 Last Fill Quantity: 120, # refills: 0 Last Office Visit: 10/18/20 Future Office visit: Next 5 appointments (look out 90 days) Nov 02, 2020 2:30 PM Colposcopy with Mishel Walker MD, RI PROC RM 2 [facility] [address] [facility] [address] [facility] [address] Routing refill request to provider for review/approval because: Drug not on the [facility], [facility] or [facility] refill protocol or controlled substance Minda Vergara RN on 10/31/2020 at 4:03 PM documented in this encounter Plan of Treatment Not on file documented as of this encounter Visit Diagnoses Diagnosis Muscle spasm Spasm of muscle documented in this encounter Additional Health Concerns Assessment Noted Time PHQ-9 Depression Total Score: 4 10/19/19 21 5:12 PM CDT documented as of this encounter Care Teams Greens Or Grounds Superintendent Relationship Specialty Start Date End Date Nelson Arroyo PA-C [address] [place] [address] PCP - General Physician Photo Lab Technician - Medical 08/06/18 Salina Doherty MD Internal Medicine 12/01/14 Carrillo Ware APRN ASTRONOMY INSTRUCTOR [address] [place] [address] Nurse Practitioner Nurse Practitioner 12/16/14 Angelica Jerez PARKS AND RECREATION WORKER [facility] [address] [place], [place] [address] Nurse Practitioner Nurse Practitioner - Family 07/12/16 Nelson Arroyo PA-C [address] [place] [address] Assigned PCP 07/30/20 Pietro Wills MD [address] [place] [address] Assigned Heart and Vascular Provider 12/14/22 Tank Bucio MD [address], [address] [address] Physician blacksmith helper 12/01/23 documented as of this encounter
--- OUTSIDE RECORDS SUMMARY | 2024-06-02 17:03 | XMS_ITS | Encounter Summary ---
Author Organization [facility] Address [address] [place] [address]. [place] [address] Care Team Providers Care Hand Outside Cutter Name Role Phone Salina Doherty MD Unavailable [phone] Carrillo Ware APRN HIGH SCHOOL AGRICULTURE TEACHER Unavailable SolitarioAngelica golden NP Unavailable [phone] Nelson Arroyo PA-C Unavailable [phone] Nelson Arroyo PA-C Primary Care Provider Chinyere Barbour Unavailable Unavailable Nelson Arroyo PA-C Unavailable [phone] Pietro Wills MD Unavailable [phone] Tank Bucio MD Unavailable Reason for Visit * Reason Comments Medication Refill Encounter Details Date Type Department Care Team (Late st Contact Info) Description 12/12/[address], [address] [place] [address] Concepción Gonzalez APRN HIGH SCHOOL AGRICULTURE TEACHER [address] [place] [address] Medication Refill Social History Tobacco [...] PM CDT 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:44 AM LINE STAKER Gender Identity Female 10/03/2020 8:33 PM CDT Sexual Orientation Straight 07/01/2018 3: 40 PM LINE STAKER documented as of this encounter Plan of Treatment Not on file documented as of this encounter Visit Diagnoses Diagnosis Persistent insomnia Persistent disorder of initiating or maintaining sleep documented in this encounter Additional Health Concerns Assessment Noted Time PHQ-9 Depression Total Score: 7 09/29/19 20 7:04 AM CDT documented as of this encounter Care Teams Hand Outside Cutter Relationship Specialty Start Date End Date Nelson Arroyo PA-C [address] [place] [address] PCP - General Physician Manufacturing Business Analyst - Medical 08/06/18 Salina Doherty MD Internal Medicine 12/01/14 Carrillo Ware APRN HIGH SCHOOL AGRICULTURE TEACHER [address] [place] [address] Nurse Practitioner Nurse Practitioner 12/16/14 Angelica Jerez NP [place] [address] [place] [address] Nurse Practitioner Nurse Practitioner - Family 07/12/16 Nelson Arroyo PA-C [address] [place] [address] Assigned PCP 07/05/18 07/29/20 Chinyere Barbour Personal Advocate & Liaison (PAL) 01/31/20 04/26/20 Nelson Arroyo PA-C [address] [place] [address] Assigned PCP 07/30/20 Pietro Wills MD [address] [place] [address] Assigned Heart and Vascular Provider 12/14/22 Tank Bucio MD [address] [place], [place] [address] Physician steel finisher 12/01/23 documented as of this encounter
--- OUTSIDE RECORDS SUMMARY | 2024-06-02 17:03 | XMS_ITS | Encounter Summary ---
Author Organization [facility] Address [address] [place] [address]. [place] [address] Care Team Providers Care Pasta Press Operator Name Role Phone Salina Doherty MD Unavailable [phone] Carrillo Ware APRN LANDSCAPE MANAGER Unavailable SolitarioAngelica golden NP Unavailable [phone] Nelson Arroyo PA-C Primary Care Provider Nelson Arroyo PA-C Unavailable [phone] Pietro Wills MD Unavailable [phone] Tank Bucio MD Unavailable [phone] Reason for Visit * Reason Onset Date Comments Refill Request 01/12/2021 (ADDERALL XR) 30 MG Encounter Details Date Type Department Care Team (Late st Contact Info) Description 01/12/2021 MyC Refill [facility] [address] [place] [address] Nelson Arroyo PA-C [address] [place] [address] Refill Request ((ADDERALL XR) 30 MG ) Social History Tobacco Use Types Packs/Day [...] PM CDT 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:44 AM GENETICIST Gender Identity Female 10/03/2020 8:33 PM CDT Sexual Orientation Straight 07/01/2018 3: 40 PM GENETICIST documented as of this encounter Plan of Treatment Not on file documented as of this encounter 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), predominantly inattentive type documented in this encounter Additional Health Concerns Assessment Noted Time PHQ-9 Depression Total Score: 4 10/19/19 21 5:12 PM CDT documented as of this encounter Care Teams Pasta Press Operator Relationship Specialty Start Date End Date Nelson Arroyo PA-C [address] [place] [address] PCP - General Physician Case Packer And Sealer - Medical 08/06/18 Salina Doherty MD Internal Medicine 12/01/14 Carrillo Ware APRN CNP [address] [place] [address] 822525 Nurse Practitioner Nurse Practitioner 12/16/14 Angelica Jerez NP [place] [address] [place], [place] 3[address] Nurse Practitioner Nurse Practitioner - Family 07/12/16 Nelson Arroyo PA-C [address] [place] [address] Assigned PCP 07/30/20 Pietro Wills MD [address] [address] Assigned Heart and Vascular Provider 12/14/22 Tank Bucio MD [address], [facility] [address] [place] [address] Physician medical program specialist 12/01/23 documented as of this encounter
--- OUTSIDE RECORDS SUMMARY | 2024-06-02 17:03 | XMS_ITS | Encounter Summary ---
Author Organization [place] Address [address] [place] [address]. [place] [address] Care Team Providers Care Cath Lab Name Role Phone Salina Doherty MD Unavailable [phone] Crarillo Ware APRN CROZE MACHINE OPERATOR Unavailable SolitarioAngelica golden NP Unavailable [phone] Nelson Arroyo PA-C Unavailable Nelson Arroyo PA-C Primary Care Provider [phone] Chinyere Barbour Unavailable Unavailable Nelson Arroyo PA-C Unavailable Pietro Wills MD Unavailable Tank Bucio MD Unavailable Reason for Visit * Reason Onset Date Comments Refill Request 01/18/2020 Encounter Details Date Type Department Care Team (Late st Contact Info) Description 01/18/2020 MyC Refedgar [facility] [address] [facility], [address] [place] [address] eNlson Arroyo PA-C [address] [place] [address] Refill Request Social History Tobacco [...] PM CDT 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:44 AM LAST DIPPER Gender Identity Female 10/03/2020 8:33 PM CDT Sexual Orientation Straight 07/01/2018 3: 40 PM LAST DIPPER documented as of this encounter Miscellaneous Notes * Telephone Encounter - Nancy Santiago CMA - 01/24/2020 11:50 AM CDT Left message for patient to call back. Nancy Santiago CMA * Telephone Encounter - Blanca Baker - 01/21/2020 10:23 AM CDT Left message for patient to return call Needs appt Blanca Baker/ Installation Supervisor * Telephone Encounter - Jahaira Ya CMA - 01/20/2020 1:30 PM CDT LMOM Jahaira Ya CMA * Telephone Encounter - Nelson Arroyo PA-C - 01/19/2020 7:20 PM CDT Needs an appointment. Virtual is ok. Please help her schedule. Nelson * Telephone Encounter - Susanne Zacarias RN - 01/18/2020 1:20 PM CDT Routing refill request to provider for review/approval because: Drug not on the [facility] refill protocol Susanne Zacarias RN [facility] -- Triage Nurse documented in this encounter Plan of Treatment Not on file documented as of this encounter 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), predominantly inattentive type documented in this encounter Additional Health Concerns Assessment Noted Time PHQ-9 Depression Total Score: 7 09/29/19 20 7:04 AM CDT documented as of this encounter Care Teams Cath Lab Relationship Specialty Start Date End Date Nelson Arroyo PA-C [address] [address] PCP - General Physician Technology Training Associate - Medical 08/06/18 Salina Doherty MD Internal Medicine 12/01/14 Carrillo Ware APRN CROZE MACHINE OPERATOR [address] [place] [address] Nurse Practitioner Nurse Practitioner 12/16/14 Angelica Jerez NP [address] [address] Nurse Practitioner Nurse Practitioner - Family 07/12/16 Nelson Arroyo PA-C [address] [address] Assigned PCP 07/05/18 07/29/20 Chinyere Barbour Personal Advocate & Liaison (PAL) 01/31/20 04/26/20 Nelson Arroyo PA-C [address] [address] Assigned PCP 07/30/20 Pietro Wills MD [address] [address] Assigned Heart and Vascular Provider 12/14/22 Tank Bucio MD [address], [facility] 100 [place] [address] Physician real estate loan processor 12/01/23 documented as of this encounter
--- OUTSIDE RECORDS SUMMARY | 2024-06-02 17:03 | XMS_ITS | Encounter Summary ---
Author Organization [place] Address [address] [place] [address]. [place] [address] Care Team Providers Care Advertising Coordinator Name Role Phone Salina Doherty MD Unavailable [phone] Carrillo Ware APRN FABRICATION AND ASSEMBLY SUPERVISOR Unavailable SolitarioAngelica golden NP Unavailable [phone] Nelson Arroyo PA-C Primary Care Provider Nelson Arroyo PA-C Unavailable [phone] Pietro Wills MD Unavailable Tank Bucio MD Unavailable Reason for Visit * Reason Comments Medication Refill Encounter Details Date Type Department Care Team (Late st Contact Info) Description 10/30/[address], [address] [place] [address] [place] [address] [place] [address] Medication Refill Social History Tobacco [...] PM CDT 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:44 AM SURVEY QUESTIONNAIRE DESIGNER Gender Identity Female 10/03/2020 8:33 PM CDT Sexual Orientation Straight 07/01/2018 3: 40 PM SURVEY QUESTIONNAIRE DESIGNER COVID-19 Exposure Response Date Recorded In the last month, have you been in contact with someone who was confirmed or suspected to have Coronavirus / COVID-19? No / Unsure 10/18/2020 5:00 PM CDT documented as of this encounter Miscellaneous Notes * Telephone Encounter - Maude Singh RN - 11/03/2020 8:30 AM CDT LMOM for patient to call clinic back and talk to any of the triage nurses. Maude Singh RN * Telephone Encounter - Shell Dorman MD - 11/03/2020 7:59 AM CDT Plan not discussed at her last visit, is usign 20 per month. Needs to have plan with pcp, recommendvideo visit as option. Anxiety seems not well controlled * Telephone Encounter - Minda Vergara RN - 10/31/2020 4:05 PM CDT clonazePAM (KLONOPIN) 0.5 MG tablet Last Written Prescription Date: 10/06/20 Last Fill Quantity: 20, # refills: 0 Last Office Visit: 10/18/20 Future Office visit: Next 5 appointments (look out 90 days) Nov 02, 2020 2:30 PM Colposcopy with Mishel Walker MD, RI PROC RM 2 [facility] ([facility] ) [address] [facility] [address] [facility] [address] Routing refill request to provider for review/approval because: Drug not on the [facility], P or Health refill protocol or controlled substance Minda Vergara RN on 10/31/2020 at 4:06 PM documented in this encounter Plan of Treatment Not on file documented as of this encounter Visit Diagnoses Diagnosis Generalized anxiety disorder documented in this encounter Additional Health Concerns Assessment Noted Time PHQ-9 Depression Total Score: 4 10/19/19 21 5:12 PM CDT documented as of this encounter Care Teams Advertising Coordinator Relationship Specialty Start Date End Date Nelson Arroyo PA-C [address] [address] PCP - General Physician Economic Manager - Medical 08/06/18 Salina Doherty MD Internal Medicine 12/01/14 Carrillo Ware APRN FABRICATION AND ASSEMBLY SUPERVISOR [address] [place] [address] Nurse Practitioner Nurse Practitioner 12/16/14 Angelica Jerez NP [facility] [address] [place], [place] [address] Nurse Practitioner Nurse Practitioner - Family 07/12/16 Nelson Arroyo PA-C [address] [address] Assigned PCP 07/30/20 Pietro Wills MD [address] [place] [address] Assigned Heart and Vascular Provider 12/14/22 Tank Bucio MD [address] [facility] 100 [place] [address] Physician polo coach 12/01/23 documented as of this encounter
--- OUTSIDE RECORDS SUMMARY | 2024-06-02 17:03 | XMS_ITS | Encounter Summary ---
Author Organization [facility] Address [address] [place] [address]. [place] [address] Care Team Providers Care Engineering Production Liaison Name Role Phone Salina Doherty MD Unavailable Carrillo Ware APRN TEMPORARY DATA ENTRY CLERK Unavailable SolitarioAngelica golden NP Unavailable [phone] Nelson Arroyo PA-C Primary Care Provider Nelson Arroyo PA-C Unavailable [phone] Pietro Wills MD Unavailable [phone] Tank Bucio MD Unavailable [phone] Reason for Visit * Reason Onset Date Comments Refill Request 10/08/2020 Encounter Details Date Type Department Care Team (Late st Contact Info) Description 10/08/2020 MyC Refill [facility] [address] [place] [address] Nelson Arroyo PA-C [address] [place] [address] Refill Request Social History Tobacco [...] PM CDT 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:44 AM DOGGER Gender Identity Female 10/03/2020 8:33 PM CDT Sexual Orientation Straight 07/01/2018 3: 40 PM DOGGER documented as of this encounter Miscellaneous Notes * Telephone Encounter - Minda Vergara RN - 10/10/2020 11:38 AM CDT Duplicate- already sent to Nelson. Minda Vergara RN on 10/10/2020 at 11:38 AM documented in this encounter Plan of Treatment Not on file documented as of this encounter Visit Diagnoses Diagnosis Major depressive disorder, recurrent episode, moderate (H) Major depressive disorder, recurrent episode, moderate documented in this encounter Additional Health Concerns Assessment Noted Time PHQ-9 Depression Total Score: 6 07/14/19 21 3:35 PM DOGGER documented as of this encounter Care Teams Engineering Production Liaison Relationship Specialty Start Date End Date Nelson Arroyo PA-C [address] [place] [address] PCP - General Physician Pan Devulcanizer Helper - Medical 08/06/18 Salina Doherty MD Internal Medicine 12/01/14 Carrillo Ware APRN TEMPORARY DATA ENTRY CLERK [address] [place] [address]1555 Nurse Practitioner Nurse Practitioner 12/16/14 Angelica Jerez NP [place] [address] [address] [place], [place] [address] Nurse Practitioner Nurse Practitioner - Family 07/12/16 Nelson Arroyo PA-C [address] [place] [place] [address] Assigned PCP 07/30/20 Pietro Wills MD [address] [place] [address] Assigned Heart and Vascular Provider 12/14/22 Tank Bucio MD [address], [address] [address] Physician cage shift manager 12/01/23 documented as of this encounter
--- OUTSIDE RECORDS SUMMARY | 2024-06-02 17:03 | XMS_ITS | Encounter Summary ---
Author Organization [place] Address [address] [place] [address]. [place] [address] Care Team Providers Care Keno Writer Name Role Phone Salina Doherty MD Unavailable [phone] Carrillo Ware APRN LOCK ASSEMBLER Unavailable SolitarioAngelica golden NP Unavailable [phone] Nelson Arroyo PA-C Unavailable Nelson Arroyo PA-C Primary Care Provider Chinyere Barbour Unavailable Unavailable Nelson Arroyo PA-C Unavailable Pietro Wills MD Unavailable Tank Bucio MD Unavailable Reason for Visit * Reason Onset Date Comments Vaginal Problem 02/26/2020 Encounter Details Date Type Department Care Team (Late st Contact Info) Description 02/26/2020 MyC Medical Advice [facility] [address] [facility], [address] [place] [address] Nelson Arroyo PA-C [address] [place] [address] Vaginal Problem Social History Tobacco Use Types Packs/Day Years [...] PM CDT 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:44 AM CARDROOM SUPERVISOR Gender Identity Female 10/03/2020 8:33 PM CDT Sexual Orientation Straight 07/01/2018 3: 40 PM CARDROOM SUPERVISOR documented as of this encounter Miscellaneous Notes * Telephone Encounter - Maude Singh RN - 02/28/2020 12:53 PM CDT [employer] message sent to patient. Maude Singh RN * Telephone Encounter - Nelson Arroyo PA-C - 02/28/2020 12:45 PM CDT Have her submit and evisit. Then we can do a wet prep. Nelson Corrales documented in this encounter Plan of Treatment Not on file documented as of this encounter Visit Diagnoses Not on filedocumented in this encounter Additional Health Concerns Assessment Noted Time PHQ-9 Depression Total Score: 7 09/29/19 20 7:04 AM CDT documented as of this encounter Care Teams Keno Writer Relationship Specialty Start Date End Date Nelson Arroyo PA-C [address] [place] [address] PCP - General Physician Roll Mill Operator - Medical 08/06/18 Salina Doherty MD Internal Medicine 12/01/14 Carrillo Ware APRN LOCK ASSEMBLER [address] [place] [address] Nurse Practitioner Nurse Practitioner 12/16/14 Angelica Jerez NP [facility] [address] [place] [address] Nurse Practitioner Nurse Practitioner - Family 07/12/16 Nelson Arroyo PA-C [address] [address] Assigned PCP 07/05/18 07/29/20 Chinyere Barbour Personal Advocate & Liaison (PAL) 01/31/20 04/26/20 Nelson Arroyo PA-C [address] [address] Assigned PCP 07/30/20 Pietro Wills MD [address] [place] [address] Assigned Heart and Vascular Provider 12/14/22 Tank Bucio MD [address], [facility] 100 [place] [address] Physician division field inspector 12/01/23 documented as of this encounter
[2024-06-02 17:07] LABS: Basophils Percent Auto 0.3 % (0.0-3.0); Eosinophils Percent Auto 1.8 % (0.0-7.0); Hemoglobin* 12.2 gm/dL (12.0-16.0); Immature Granulocytes Pct Auto 0.7 %; Lymphocytes Percent Auto 16.1 % (20-44); Mean Corpuscular HGB Conc 34 gm/dL (32-36); Mean Corpuscular Hemoglobin 29 pg (26-34); Mean Corpuscular Volume 86 fL (80-100); Neutrophils Percent Auto 74.1 % (42.0-72.0); Platelet Count* 283 K/uL (140-440); RDW Coefficient of Variation % 12.1 % (11.5-15.5); Red Blood Count 4.18 m/uL (4.00-5.20); White Blood Count* 12.74 K/uL (4.50-11.00)
[2024-06-02 17:14] LABS: RBC Urine 0-2 (0-2); Squamous Epithelial Cell Urine Few (None-Few); WBC Urine 0-2 (0-5)
[2024-06-02 17:20] LABS: Slide Review Reflex No
== END 2024-06-02 17:07 | disposition home or self-care (01) ==
LOC: ED 16:55
PROVIDERS: Emergency Provider Emergency Medicine
DX: N93.9 Abnormal uterine and vaginal bleeding, unspecified (principal); Z3A.08 8 weeks gestation of pregnancy
CPT/HCPCS: 36415; 76817; 81001; 84703; 85025; 86900; 86901; 99284

== ENCOUNTER 2024-06-11 07:08 | Outpatient (CLI) | payer MEDICAID, SELFPAY ==
--- NOTE | 2024-06-11 07:15 | CRLHL7_ITS ---
For Patients: As a result of the Century Cures Act, medical imaging exams and procedure reports are released immediately into your electronic medical record. You may view this report before your referring provider. If you have questions, please contact your health care provider. OB ULTRASOUND INDICATION: Dating and viability. TECHNIQUE: Real time grayscale imaging of the fetus was performed. Transvaginal. LMP: 04/09/2024. GABRIEL by LMP: 01/14/2025. GA: 9 w, 0 d. Previous US: Yes 06/02/2024. GABRIEL by US: 01/13/2025. GA: 9 w, 1 d. CRL: 2.3 cm. 9 w 0 d. GABRIEL: 01/14/2025. FHR: 178 BPM. Gestational sac: 4.4 cm. Appears within normal limits. Yolk sac: 4.0 mm. Appears within normal limits. Right ovary: Within normal limits. 3.6 x 1.7 x 1.7 cm. Left ovary: Within normal limits. 4.1 x 2.3 x 3.7 cm. CL 1.5 x 1.5 x 1.4 cm. IMPRESSION: 1. Single living intrauterine with sonographic gestational age 9 weeks 0 days and sonographic due date 01/14/2025. 2. No subchorionic hemorrhage. 3. Right lower uterine segment intramural fibroid measures 11 x 7 x 10 mm. 4. Exam performed with transvaginal technique. Hugh Leon M.D. Diagnostic Radiologist [email or web address] flor/Dictated by: Hugh Leon MD @ 06/11/2024 9:17:00 AM (Electronically Signed)
== END 2024-06-11 07:09 | disposition home or self-care (01) ==
LOC: US 07:09
PROVIDERS: Visit Provider Registered Nurse
DX: Z34.91 Encounter for supervision of normal pregnancy, unspecified, first trimester (principal); O34.11 Maternal care for benign tumor of corpus uteri, first trimester; D25.1 Intramural leiomyoma of uterus; Z3A.09 9 weeks gestation of pregnancy
CPT/HCPCS: 76817

== ENCOUNTER 2024-07-20 16:32 | Emergency (ER) | payer MEDICAID, SELFPAY ==
--- OUTSIDE RECORDS SUMMARY | 2024-07-20 16:33 | XMS_ITS | Encounter Summary ---
Author Organization [facility] Address [address] [place] [address] Care Team Providers Care Clinical Data Research Name Role Phone Salina Doherty MD Unavailable [phone] Carrillo Ware APRN BUILDING CARPENTER Unavailable SolitarioAngelica golden NP Unavailable [phone] Nelson Arroyo PA-C Unavailable [phone] Nelson Arroyo PA-C Primary Care Provider Nelson Arroyo PA-C Unavailable [phone] Pietro Wills MD Unavailable [phone] Tank Bucio MD Unavailable [phone] Encounter Details Date Type Department Care Team (Late st Contact Info) Description 05/04/2020 MyC Medical Advice [address] [address] Galina Blake, RN Social History [...] PM CDT 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:44 AM SAFETY ENGINEER PRESSURE VESSELS Gender Identity Female 10/03/2020 8:33 PM CDT Sexual Orientation Straight 07/01/2018 3: 40 PM SAFETY ENGINEER PRESSURE VESSELS documented as of this encounter Plan of Treatment Not on file documented as of this encounter Visit Diagnoses Not on filedocumented in this encounter Additional Health Concerns Assessment Noted Time PHQ-9 Depression Total Score: 5 03/03/20 20 7:03 AM CDT documented as of this encounter Care Teams Clinical Data Research Relationship Specialty Start Date End Date Nelson Arroyo PA-C [address] [place] [address] PCP - General Physician Director Of Creative Services - Medical 08/06/18 Salina Doherty MD Internal Medicine 12/01/14 Carrillo Ware APRN CNP [address] [place] [address] Nurse Practitioner Nurse Practitioner 12/16/14 Angelica Jerez NP [address] [address] Nurse Practitioner Nurse Practitioner - Family 07/12/16 Nelson Arroyo PA-C [address] [address] Assigned PCP 07/05/18 07/29/20 Nelson Arroyo PA-C [address] [address] Assigned PCP 07/30/20 Pietro Wills MD [address] [address] Assigned Heart and Vascular Provider 12/14/22 06/26/24 Tank Bucio MD [address], [address] [address] Physician title insurance examiner 12/01/23 documented as of this encounter
--- OUTSIDE RECORDS SUMMARY | 2024-07-20 16:33 | XMS_ITS | Encounter Summary ---
Author Organization [facility] Address [address] [place] [address]. [place] [address] Care Team Providers Care Emergency Worker Name Role Phone Salina Doherty MD Unavailable [phone] Carrillo Ware APRN WELFARE PROJECT MANAGER Unavailable SolitarioAngelica golden NP Unavailable [phone] Nelson Arroyo PA-C Unavailable Nelson Arroyo PA-C Primary Care Provider Chinyere Barbour Unavailable Unavailable Nelson Arroyo PA-C Unavailable Pietro Wills MD Unavailable Tank Bucio MD Unavailable Reason for Visit * Reason Onset Date Comments Appointment 12/27/2019 med check, cough Encounter Details Date Type Department Care Team (Late st Contact Info) Description 12/27/[address] [facility] [address] [facility], [address] [place] [address] Nelson Arroyo PA-C [address] [place] [address] Appointment (med check, cough) 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:44 AM SUPERVISOR TILE AND MOTTLE Gender Identity Female 10/03/2020 8:33 PM CDT Sexual Orientation Straight 07/01/2018 3: 40 PM SUPERVISOR TILE AND MOTTLE documented as of this encounter Miscellaneous Notes * Telephone Encounter - Jahaira Ya CMA - 12/30/2019 8:11 AM CDT LM to get appt scheduled Jahaira Ya CMA * Telephone Encounter - Blanca Baker - 12/28/2019 1:53 PM CDT Left message, please help patient schedule med check with Blanca Red/ Sales Consultant * Telephone Encounter - Maude Singh RN [...] documented as of this encounter Care Teams Emergency Worker Relationship Specialty Start Date End Date Nelson Arroyo PA-C [address] [place] [address] PCP - General Physician Machine Operator Assistant - Medical 08/06/18 Salina Doherty MD Internal Medicine 12/01/14 Carrillo Ware APRN WELFARE PROJECT MANAGER [address] [place] [address] Nurse Practitioner Nurse Practitioner 12/16/14 nAgelica Jerez SALES MANAGER [facility] [address] [address] Nurse Practitioner Nurse Practitioner - Family 07/12/16 Nelson Arroyo PA-C [address] [place] [address] Assigned PCP 07/05/18 07/29/20 Chinyere Barbour Personal Advocate & Liaison (PAL) 01/31/20 04/26/20 Nelson Arroyo PA-C [address] [place] [id number] Assigned PCP 07/30/20 Pietro Wills MD [address] [place] [address] Assigned Heart and Vascular Provider 12/14/22 06/26/24 Tank Bucio MD [address], [facility] 100 [place] [address] Physician finish off operator 12/01/23 documented as of this encounter
--- OUTSIDE RECORDS SUMMARY | 2024-07-20 16:33 | XMS_ITS | Encounter Summary ---
Author Organization [facility] Address [address] [place] [address]. [place] [address] Care Team Providers Care Fresh Work Inspector Name Role Phone Salina Doherty MD Unavailable [phone] Carrillo Ware APRN STAINED GLASS INSTALLER Unavailable SolitarioAngelica golden NP Unavailable [phone] Nelson Arroyo PA-C Unavailable [phone] Nelson Arroyo PA-C Primary Care Provider Nelson Arroyo PA-C Unavailable [phone] Pietro Wills MD Unavailable [phone] Tank Bucio MD Unavailable Reason for Visit * Reason Comments Medication Refill Encounter Details Date Type Department Care Team (Late st Contact Info) Description [address], [address] [place] [address] Nelson Arroyo PA-C [address] [place] [address] Medication Refill Social History Tobacco [...] PM CDT 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:44 AM ALTERATIONS TAILOR Gender Identity Female 10/03/2020 8:33 PM CDT Sexual Orientation Straight 07/01/2018 3: 40 PM ALTERATIONS TAILOR documented as of this encounter Miscellaneous Notes * Telephone Encounter - Nelson Arroyo PA-C - 06/18/2020 10:21 AM ALTERATIONS TAILOR Yes- she is my patient. I assume she will continue with me unless she says otherwise? Nelson RATIONS TAILOR * Telephone Encounter - Tammi Ozuna RN - 06/14/2020 2:50 PM CST Discussed with LG, wonders if PCP would refill, pt not changing PCP, saw if providers absence, please confirm, route to LG if needed Tammi Ozuna RN, BSN Message handled by CLINIC NURSE. RATIONS TAILOR * Telephone Encounter - Tammi Ozuna RN - 06/14/2020 2:42 PM CST Routing refill request to provider for review/approval because: New for LG Tammi Ozuna RN, BSN Message handled by CLINIC NURSE. RATIONS TAILOR * Telephone Encounter - Carmen Lynn RN - 06/14/2020 11:45 AM ALTERATIONS TAILOR Forwarding to [place]. Saw Valentina FRANCOIS 02/25/20 for PHYSICAL Carmen Turcios RN RATIONS TAILOR documented in this encounter Plan of Treatment Not on file documented as of this encounter Visit Diagnoses Diagnosis Palpitations Sinus tachycardia Other specified cardiac dysrhythmias Acne, unspecified acne type documented in this encounter Additional Health Concerns Assessment Noted Time PHQ-9 Depression Total Score: 5 03/03/20 20 7:03 AM CDT documented as of this encounter Care Teams Fresh Work Inspector Relationship Specialty Start Date End Date Nelson Arroyo PA-C [address] [place] [address] PCP - General Physician Windows Phone Developer - Medical 08/06/18 Salina Doherty MD Internal Medicine 12/01/14 Carrillo Ware APRN CNP [address] [place] [id number] Nurse Practitioner Nurse Practitioner 12/16/14 Angelica Jerez NP [address] [address] Nurse Practitioner Nurse Practitioner - Family 07/12/16 Nelson Arroyo PA-C [address] [place] [address] Assigned PCP 07/05/18 07/29/20 Nelson Arroyo PA-C [address] [address] [place] [address] Assigned PCP 07/30/20 Pietro Wills MD [address] [place] [address] Assigned Heart and Vascular Provider 12/14/22 06/26/24 Tank Bucio MD [address], [facility] [address] [place] [address] Physician perfumer 12/01/23 documented as of this encounter
--- OUTSIDE RECORDS SUMMARY | 2024-07-20 16:33 | XMS_ITS | Encounter Summary ---
Author Organization [facility] Address [address] [place] [address]. [place] [address] Care Team Providers Care Electrical Logger Name Role Phone Salina Doherty MD Unavailable [phone] Carrillo Ware APRN GENERAL MAGISTRATE Unavailable SolitarioAngelica golden NP Unavailable [phone] Nelson Arroyo PA-C Unavailable Nelson Arroyo PA-C Primary Care Provider Chinyere Barbour Unavailable Unavailable Nelson Arroyo PA-C Unavailable Pietro Wills MD Unavailable [phone] Tank Bucio MD Unavailable Reason for Visit * Reason Onset Date Comments MyChart Communication 12/22/2019 Allergic r eaction Encounter Details Date Type Department Care Team (Late st Contact Info) Description 12/22/2019 MyC Medical Advice [facility] [address] [facility], [address] [place] [address] Nelson Arroyo PA-C [address] [place] [address] MyChart Communication (Allergic reaction) Social [...] PM CDT 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:44 AM IMAGING SERVICES DIRECTOR Gender Identity Female 10/03/2020 8:33 PM CDT Sexual Orientation Straight 07/01/2018 3: 40 PM IMAGING SERVICES DIRECTOR documented as of this encounter Miscellaneous Notes * Telephone Encounter - Mello Ramires RN - 12/24/2019 9:19 AM CDT Patient read [employer] message 12/22 12PM, left voicemail for patient to return call Mello Ramires RN * Telephone Encounter - Mello Ramires RN - 12/23/2019 8:10 AM CDT Called patient and left voicemail to return call, also sent [employer] message to call, see [employer] message and triage regarding allergic reaction Mello Ramires RN documented in this encounter Plan of Treatment Not on file documented as of this encounter Visit Diagnoses Not on filedocumented in this encounter Additional Health Concerns Assessment Noted Time PHQ-9 Depression Total Score: 7 09/29/19 20 7:04 AM CDT documented as of this encounter Care Teams Electrical Logger Relationship Specialty Start Date End Date Nelson Arroyo PA-C [address] [place] [address] PCP - General Physician Generator Operator - Medical 08/06/18 Salina Doherty MD Internal Medicine 12/01/14 Carrillo Ware APRN GENERAL MAGISTRATE [address] [place] [address] Nurse Practitioner Nurse Practitioner 12/16/14 Angelica Jerez NP [facility] [address] [place] [address] Nurse Practitioner Nurse Practitioner - Family 07/12/16 Nelson Arroyo PA-C [address] [place] [address] Assigned PCP 07/05/18 07/29/20 Chinyere Barbour Personal Advocate & Liaison (PAL) 01/31/20 04/26/20 Nelson Arroyo PA-C [address] [place] [address] Assigned PCP 07/30/20 Pietro Wills MD [address] [place] [address] Assigned Heart and Vascular Provider 12/14/22 06/26/24 Tank Bucio MD [address] [facility] [address] [place] [address] Physician precise winder 12/01/23 documented as of this encounter
--- OUTSIDE RECORDS SUMMARY | 2024-07-20 16:33 | XMS_ITS | Encounter Summary ---
Author Organization [facility] Address [address] [place] [address]. [place] [address] Care Team Providers Care Radar Systems Engineer Name Role Phone Salina Doherty MD Unavailable [phone] Carrillo Ware APRN CHAIN BUILDER Unavailable SolitarioAngelica golden NP Unavailable [phone] Nelson Arroyo PA-C Primary Care Provider Nelson Arroyo PA-C Unavailable Pietro Wills MD Unavailable [phone] Tank Bucio MD Unavailable Reason for Visit * Reason Comments Medication Refill Encounter Details Date Type Department Care Team (Late st Contact Info) Description 09/21/[address], [address] [place] [address] Nelson Arroyo PA-C [address] [place] [address] Medication Refill Social History Tobacco [...] PM CDT 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:44 AM LINSEED OIL PRESS TENDER Gender Identity Female 10/03/2020 8:33 PM CDT Sexual Orientation Straight 07/01/2018 3: 40 PM LINSEED OIL PRESS TENDER documented as of this encounter Miscellaneous Notes * Telephone Encounter - Minda Vergara RN - 10/06/2020 9:39 AM CDT clonazePAM (KLONOPIN) 0.5 MG tablet Last Written Prescription Date: 07/13/20 Last Fill Quantity: 20, # refills: 0 Last Office Visit: 08/15/20 Future Office visit: Next 5 appointments (look out 90 days) Oct 18, 2020 5:15 PM [facility] Short with Nelson Arroyo PA-C [facility] ([facility] ) [address] [place] [address] Routing refill request to provider for [...] 09/22/2020 11:50 AM CDT 1st attempt, sent [facility] message to schedule appt * Telephone Encounter [...] Total Score: 6 07/14/19 21 3:35 PM LINSEED OIL PRESS TENDER documented as of this encounter Care Teams Radar Systems Engineer Relationship Specialty Start Date End Date Nelson Arroyo PA-C [address] [place] [address] PCP - General Physician Long Filler Cigar Roller Machine - Medical 08/06/18 Salina Doherty MD Internal Medicine 12/01/14 Carrillo Ware APRN CNP [address] [place] [address] 868365 Nurse Practitioner Nurse Practitioner 12/16/14 Angelica Jerez NP [address] 627687 Nurse Practitioner Nurse Practitioner - Family 07/12/16 Nelson Arroyo PA-C [address] [address] Assigned PCP 07/30/20 Pietro Wills MD [address] [address] Assigned Heart and Vascular Provider 12/14/22 06/26/24 Tank Bucio MD [address] [facility] [address] [place] [address] Physician solutions executive security 12/01/23 documented as of this encounter
--- OUTSIDE RECORDS SUMMARY | 2024-07-20 16:33 | XMS_ITS | Encounter Summary ---
Author Organization [facility] Address [address] [place] [address]. [place] [address] Care Team Providers Care Building Maintenance Custodian Name Role Phone Salina Doherty MD Unavailable [phone] Carrillo Ware APRN JUNIOR AUTOMATION ENGINEER Unavailable SolitarioAngelica golden NP Unavailable [phone] Nelson Arroyo PA-C Unavailable [phone] Nelson Arroyo PA-C Primary Care Provider Chinyere Barbour Unavailable Unavailable Nelson Arroyo PA-C Unavailable Pietro Wills MD Unavailable Tank Bucio MD Unavailable Reason for Visit * Reason Comments Medication Refill Encounter Details Date Type Department Care Team (Late st Contact Info) Description 12/12/[address], [address] [place] [address] Concepción Gonzalez APRN JUNIOR AUTOMATION ENGINEER [address] [place] [address] Medication Refill Social History Tobacco [...] PM CDT 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:44 AM WORKFORCE DEVELOPMENT PROGRAM DIRECTOR Gender Identity Female 10/03/2020 8:33 PM CDT Sexual Orientation Straight 07/01/2018 3: 40 PM WORKFORCE DEVELOPMENT PROGRAM DIRECTOR documented as of this encounter Plan of Treatment Not on file documented as of this encounter Visit Diagnoses Diagnosis Persistent insomnia Persistent disorder of initiating or maintaining sleep documented in this encounter Additional Health Concerns Assessment Noted Time PHQ-9 Depression Total Score: 7 09/29/19 20 7:04 AM CDT documented as of this encounter Care Teams Building Maintenance Custodian Relationship Specialty Start Date End Date Nelson Arroyo PA-C [address] [place] [address] PCP - General Physician Inspector Packer Glass Container - Medical 08/06/18 Salina Doherty MD Internal Medicine 12/01/14 Carrillo Ware APRN JUNIOR AUTOMATION ENGINEER [address] [place] [address] Nurse Practitioner Nurse Practitioner 12/16/14 Angelica Jerez NP [place] [address] [place] [address] Nurse Practitioner Nurse Practitioner - Family 07/12/16 Nelson Arroyo PA-C [address] [place] [address] Assigned PCP 07/05/18 07/29/20 Chinyere Barbour Personal Advocate & Liaison (PAL) 01/31/20 04/26/20 Nelson Arroyo PA-C [address] [place] [address] Assigned PCP 07/30/20 Pietro Wills MD [address] [place] [address] Assigned Heart and Vascular Provider 12/14/22 06/26/24 Tank Bucio MD [address] [facility] [address] [place] [address] Physician electromechanical technologist 12/01/23 documented as of this encounter
--- OUTSIDE RECORDS SUMMARY | 2024-07-20 16:33 | XMS_ITS | Encounter Summary ---
Author Organization [facility] Address [address] [place] [address]. [place] [address] Care Team Providers Care Chief Wellness Officer Name Role Phone Salina Doherty MD Unavailable [phone] Carrillo Ware APRN WATERFRONT DIRECTOR Unavailable SolitarioAngelica golden NP Unavailable [phone] Nelson Arroyo PA-C Unavailable Nelson Arroyo PA-C Primary Care Provider Chinyere Barbour Unavailable Unavailable Nelson Arroyo PA-C Unavailable [phone] Pietro Wills MD Unavailable Tank Bucio MD Unavailable Reason for Visit * Reason Comments Medication Refill Encounter Details Date Type Department Care Team (Late st Contact Info) Description 11/27/[address], [address] [place] [address] Nelson Arroyo PA-C [address] [place] [address] Medication Refill Social History Tobacco [...] PM CDT 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:44 AM COUNTER INTELLIGENCE Gender Identity Female 10/03/2020 8:33 PM CDT Sexual Orientation Straight 07/01/2018 3: 40 PM COUNTER INTELLIGENCE documented as of this encounter Miscellaneous Notes * Telephone Encounter - Trang Lozano RN - 11/29/2019 10:57 AM CDT Prescription approved per [facility] Refill Protocol. Trang Lozano RN documented in this encounter Plan of Treatment Not on file documented as of this encounter Visit Diagnoses Diagnosis Palpitations Sinus tachycardia Other specified cardiac dysrhythmias Generalized anxiety disorder documented in this encounter Additional Health Concerns Assessment Noted Time PHQ-9 Depression Total Score: 7 09/29/19 20 7:04 AM CDT documented as of this encounter Care Teams Chief Wellness Officer Relationship Specialty Start Date End Date Nelson Arroyo PA-C [address] [place] [address] PCP - General Physician Labor Expediter - Medical 08/06/18 Salina Doherty MD Internal Medicine 12/01/14 Carrillo Ware APRN WATERFRONT DIRECTOR [address] [place] [address] 632165 Nurse Practitioner Nurse Practitioner 12/16/14 Angelica Jerez NP [place] [address] [place], [place] [address] Nurse Practitioner Nurse Practitioner - Family 07/12/16 Nelson Arroyo PA-C [address], [place] [address] Assigned PCP 07/05/18 07/29/20 Chinyere Barbour Personal Advocate & Liaison (PAL) 01/31/20 04/26/20 Nelson Arroyo PA-C [address] [address] Assigned PCP 07/30/20 Pietro Wills MD [address] [place] [address] Assigned Heart and Vascular Provider 12/14/22 06/26/24 Tank Bucio MD [address], [address] [address] Physician color straining bag washer 12/01/23 documented as of this encounter
--- OUTSIDE RECORDS SUMMARY | 2024-07-20 16:33 | XMS_ITS | Encounter Summary ---
Author Organization [facility] Address [address] [place] [address] Care Team Providers Care Management Internship Name Role Phone Salina Doherty MD Unavailable [phone] Carrillo Ware APRN DIRECTOR OF SPORTS MEDICINE Unavailable [phone] SolitarioAngelica golden NP Unavailable [phone] Nelson Arroyo PA-C Primary Care Provider Nelson Arroyo PA-C Unavailable [phone] Pietro Wills MD Unavailable [phone] Tank Bucio MD Unavailable [phone] Encounter Details Date Type Department Care Team (Late st Contact Info) Description 09/22/2020 MyC Medical Advice [address] [address] Jasvir Mejia Social History Tobacco [...] PM CDT 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:44 AM INSPECTOR AND UNLOADER Gender Identity Female 10/03/2020 8:33 PM CDT Sexual Orientation Straight 07/01/2018 3: 40 PM INSPECTOR AND UNLOADER documented as of this encounter Plan of Treatment Not on file documented as of this encounter Visit Diagnoses Not on filedocumented in this encounter Additional Health Concerns Assessment Noted Time PHQ-9 Depression Total Score: 6 07/14/19 21 3:35 PM INSPECTOR AND UNLOADER documented as of this encounter Care Teams Management Internship Relationship Specialty Start Date End Date Nelson Arroyo PA-C [address] [place] [address] PCP - General Physician Medical Receptionist Medical Assistant - Medical 08/06/18 Salina Doherty MD Internal Medicine 12/01/14 Carrillo Ware APRN DIRECTOR OF SPORTS MEDICINE [address] [place] [address] 882385 Nurse Practitioner Nurse Practitioner 12/16/14 Angelica Jerez NP [facility] [address] [place], [place] [address] Nurse Practitioner Nurse Practitioner - Family 07/12/16 Nelson Arroyo PA-C [address] [place] [address] Assigned PCP 07/30/20 Pietro Wills MD [address] [place] 6[address]25 Assigned Heart and Vascular Provider 12/14/22 06/26/24 Tank Bucio MD [address] [address] Physician extension forester 12/01/23 documented as of this encounter
--- OUTSIDE RECORDS SUMMARY | 2024-07-20 16:33 | XMS_ITS | Encounter Summary ---
Author Organization [facility] Address [address] [place] [address]. [place] [address] Care Team Providers Care Occupational Therapy Teacher Name Role Phone Salina Doherty MD Unavailable [phone] Carrillo Ware APRN BOBBIN MARKER Unavailable SolitarioAngelica golden NP Unavailable [phone] Nelson Arroyo PA-C Primary Care Provider Nelson Arroyo PA-C Unavailable Pietro Wills MD Unavailable [phone] Tank Bucio MD Unavailable [phone] Reason for Visit * Reason Onset Date Comments Refill Request 10/08/2020 Encounter Details Date Type Department Care Team (Late st Contact Info) Description 10/08/2020 MyC Refill [facility] [address] [place] [address] Nelson Arroyo PA-C [address] [place] [address] Refill Request Social History Tobacco [...] PM CDT 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:44 AM LITHOGRAPHIC PHOTOGRAPHER APPRENTICE Gender Identity Female 10/03/2020 8:33 PM CDT Sexual Orientation Straight 07/01/2018 3: 40 PM LITHOGRAPHIC PHOTOGRAPHER APPRENTICE documented as of this encounter Miscellaneous Notes [...] Total Score: 6 07/14/19 21 3:35 PM LITHOGRAPHIC PHOTOGRAPHER APPRENTICE documented as of this encounter Care Teams Occupational Therapy Teacher Relationship Specialty Start Date End Date Nelson Arroyo PA-C [address] [place] [address] PCP - General Physician Household Personal Assistant - Medical 08/06/18 Salina Doherty MD Internal Medicine 12/01/14 Carrillo Ware APRN BOBBIN MARKER [address] [place] [address] 778345 Nurse Practitioner Nurse Practitioner 12/16/14 Angelica Jerez NP [place] [address] [place] [place], [place] 621397 Nurse Practitioner Nurse Practitioner - Family 07/12/16 Nelson Arroyo PA-C [address] [place] [place] [address] Assigned PCP 07/30/20 Pietro Wills MD [address] [place] [address] Assigned Heart and Vascular Provider 12/14/22 06/26/24 Tank Bucio MD [address], [facility] 100 [place] [address] Physician geriatrician 12/01/23 documented as of this encounter
--- OUTSIDE RECORDS SUMMARY | 2024-07-20 16:33 | XMS_ITS | Encounter Summary ---
Author Organization [place] Address [address] [place] [address] Care Team Providers Care Ash Conveyor Operator Name Role Phone Salina Doherty MD Unavailable Carrillo Ware APRN TAR WORKER Unavailable SolitarioAngelica golden NP Unavailable [phone] Nelson Arroyo PA-C Primary Care Provider Nelson Arroyo PA-C Unavailable [phone] Pietro Wills MD Unavailable Tank Bucio MD Unavailable [phone] Encounter Details Date Type Department Care Team (Late st Contact Info) Description 08/24/2020 MyC Medical Advice [address] [address] Jocelyn Joyner Social History Tobacco [...] PM CDT 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:44 AM MATERIALS PLANNING ANALYST Gender Identity Female 10/03/2020 8:33 PM CDT Sexual Orientation Straight 07/01/2018 3: 40 PM MATERIALS PLANNING ANALYST documented as of this encounter Plan of Treatment Not on file documented as of this encounter Visit Diagnoses Not on filedocumented in this encounter Additional Health Concerns Assessment Noted Time PHQ-9 Depression Total Score: 6 07/14/19 21 3:35 PM MATERIALS PLANNING ANALYST documented as of this encounter Care Teams Ash Conveyor Operator Relationship Specialty Start Date End Date Nelson Arroyo PA-C [address] [place] [address] PCP - General Physician Terminal Superintendent - Medical 08/06/18 Salina Doherty MD Internal Medicine 12/01/14 Carrillo Ware APRN TAR WORKER [address] [place] [address] 110785 Nurse Practitioner Nurse Practitioner 12/16/14 Angelica Jerez NP [facility] [address] [place], [place] [id number] Nurse Practitioner Nurse Practitioner - Family 07/12/16 Nelson Arroyo PA-C [address] [place] [address] Assigned PCP 07/30/20 Pietro Wills MD [address] [place] 754615 Assigned Heart and Vascular Provider 12/14/22 06/26/24 Tank Bucio MD [address], [address] [address] Physician machine design checker 12/01/23 documented as of this encounter
--- OUTSIDE RECORDS SUMMARY | 2024-07-20 16:33 | XMS_ITS | Encounter Summary ---
Author Organization [facility] Address [address] [place] [address]. [place] [address] Care Team Providers Care Windlasser Name Role Phone Salina Doherty MD Unavailable [phone] Carrillo Ware APRN INSTRUMENT TECHNICIAN Unavailable [phone] SolitarioAngelica golden NP Unavailable [phone] Nelson Arroyo PA-C Primary Care Provider Nelson Arroyo PA-C Unavailable Pierto Wills MD Unavailable [phone] Tank Bucio MD Unavailable [phone] Reason for Visit * Reason Comments Medication Refill Encounter Details Date Type Department Care Team (Late st Contact Info) Description 08/07/[address], [address] [place] [address] Nelson Arroyo PA-C [address] [place] [address] Medication Refill Social History Tobacco [...] PM CDT 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:44 AM OBEDIENCE TRAINER Gender Identity Female 10/03/2020 8:33 PM CDT Sexual Orientation Straight 07/01/2018 3: 40 PM OBEDIENCE TRAINER COVID-19 Exposure Response Date Recorded In the last month, have you been in contact with someone who was confirmed or suspected to have Coronavirus / COVID-19? No / Unsure 07/13/2020 1:58 PM OBEDIENCE TRAINER documented as of this encounter Miscellaneous Notes * Telephone Encounter - Minda Vergara RN - 08/08/2020 5:14 PM CDT Prescription approved per [facility] protocol. Minda Vergara RN on 08/08/2020 at 5:14 PM documented in this encounter Plan of Treatment Not on file documented as of this encounter Visit Diagnoses Diagnosis Acne, unspecified acne type documented in this encounter Additional Health Concerns Assessment Noted Time PHQ-9 Depression Total Score: 6 07/14/19 21 3:35 PM OBEDIENCE TRAINER documented as of this encounter Care Teams Windlasser Relationship Specialty Start Date End Date Nelson Arroyo PA-C [address] [place] [address] PCP - General Physician Sap Integration Architect - Medical 08/06/18 Salina Doherty MD Internal Medicine 12/01/14 Carrillo Ware APRN INSTRUMENT TECHNICIAN [address] [place] [address]175 Nurse Practitioner Nurse Practitioner 12/16/14 Angelica Jerez NP [address] [address] Nurse Practitioner Nurse Practitioner - Family 07/12/16 Nelson Arroyo PA-C [address] [place] [address] Assigned PCP 07/30/20 Pietro Wills MD [address] [place] [address] Assigned Heart and Vascular Provider 12/14/22 06/26/24 Tank Bucio MD [address], [address] [address] Physician credit administration manager 12/01/23 documented as of this encounter
--- OUTSIDE RECORDS SUMMARY | 2024-07-20 16:34 | XMS_ITS | Encounter Summary ---
Author Organization [facility] Address [address] [place] [address] Care Team Providers Care Motor Vehicle Inspector Name Role Phone Salina Doherty MD Unavailable [phone] Carrillo Ware APRN WIRE INSULATOR Unavailable SolitarioAngelica golden NP Unavailable [phone] Nelson Arroyo PA-C Primary Care Provider Nelson Arroyo PA-C Unavailable [phone] Pietro Wills MD Unavailable [phone] Tank Bucio MD Unavailable [phone] Encounter Details Date Type Department Care Team (Late st Contact Info) Description 06/30/2023 [facility] Medical Advice [address] [address] Mary Fragoso Social History Tobacco [...] in an overnight detention, or couch-surfing.) Yes 03/31/2023 Are you worried [...] PM CDT 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:44 AM CORE INSPECTOR Gender Identity Female 10/03/2020 8:33 PM CDT Sexual Orientation Straight 07/01/2018 3: 40 PM CORE INSPECTOR documented as of this encounter Plan of Treatment Not on file documented as of this encounter Visit Diagnoses Not on filedocumented in this encounter Additional Health Concerns Assessment Noted Time PHQ-9 Depression Total Score: 8 03/31/20 23 1:09 PM CORE INSPECTOR documented as of this encounter Care Teams Motor Vehicle Inspector Relationship Specialty Start Date End Date Nelson Arroyo PA-C [address] [address] PCP - General Physician Automotive Technician Instructor - Medical 08/06/18 Salina Doherty MD Internal Medicine 12/01/14 Carrillo Ware APRN WIRE INSULATOR [address] [place] [address] Nurse Practitioner Nurse Practitioner 12/16/14 Angelica Jerez NP [facility] [address] [place], [place] [address] Nurse Practitioner Nurse Practitioner - Family 07/12/16 Nelson Arroyo PA-C [address] [place] [address] Assigned PCP 07/30/20 Pietro Wills MD [address] [place] 57[address] Assigned Heart and Vascular Provider 12/14/22 06/26/24 Tank Bucio MD [address], [address] [address] Physician nut former 12/01/23 documented as of this encounter
--- OUTSIDE RECORDS SUMMARY | 2024-07-20 16:34 | XMS_ITS | Encounter Summary ---
Author Organization [facility] Address [address] [place] [address] Care Team Providers Care Stamping Die Maker Name Role Phone Salina Doherty MD Unavailable [phone] Carrillo Ware APRN INTERNATIONAL TRADE COMPLIANCE MANAGER Unavailable Hillary Unger MD Primary Care P rovider Nelson Arroyo PA-C Primary Care Provider [phone] Hillary Unger MD Primary Care P rovider Angelica Jerez NP Unavailable [phone] Nelson Arroyo PA-C Unavailable [phone] Hillary Unger MD Unavailable Hillary Unger MD Unavailable Hillary Unger MD Unavailable Nelson Arroyo PA-C Unavailable + Nelson Arroyo PA-C Primary Care Provider +[phone] Chinyere Barbour Unavailable Unavailable Nelson Arroyo PA-C Unavailable [phone] Pietro Wills MD Unavailable [phone] Tank Bucio MD Unavailable + [phone] Encounter Details Date Type Department Care Team (Late st Contact Info) Description 05/14/2015 [facility] Medical Advice [address], [address] [place] [address] Nelson Arroyo PA-C [address] [place] [address] Social History Tobacco Use Types Packs/Day Years [...] 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:44 AM LAY OUT HELPER Gender Identity Female 10/03/2020 8:33 PM CDT Sexual Orientation Straight 07/01/2018 3: 40 PM LAY OUT HELPER documented as of this encounter Plan of Treatment Not on file documented as of this encounter Visit Diagnoses Not on filedocumented in this encounter Care Teams Stamping Die Maker Relationship Specialty Start Date End Date Hillary Unger MD [address] [place] [address] PCP - General Internal Medicine 01/05/15 08/02/15 Nelson Arroyo PA-C [address] [place] [address] PCP - General Physician Aoc [employer]ad[employer] Operations Staff Officer - Medical 08/03/15 08/20/15 Hillary Unger MD [address] [place] [address] PCP - General Internal Medicine 08/21/15 08/05/18 Nelson Arroyo PA-C [address] [place] [address] PCP - Assigned PCP 04/12/18 05/02/18 Hillary Unger MD [address] [place], [place] [address] PCP - Assigned PCP 02/01/18 04/11/18 Hillary Unger MD [address] [place] [address] PCP - Assigned PCP 05/03/18 07/07/18 Nelson Arroyo PA-C [address] [place] [place] [address] PCP - General Physician Aoc [employer] Operations Staff Officer - Medical 08/06/18 Salina Doherty MD Internal Medicine 12/01/14 Carrillo Ware APRN INTERNATIONAL TRADE COMPLIANCE MANAGER [address] [place] [address] [id number] Nurse Practitioner Nurse Practitioner 12/16/14 Angelica Jerez NP [facility] [address] [place] [address] Nurse Practitioner Nurse Practitioner - Family 07/12/16 Hillary Unger MD [address] [place] [address] Assigned PCP 05/03/18 07/18/18 Nelson Arroyo PA-C [address], [place] [address] Assigned PCP 07/05/18 07/29/20 Chinyere Barbour Personal Advocate & Liaison (PAL) 01/31/20 04/26/20 Nelson Arroyo PA-C [address] [address] Assigned PCP 07/30/20 Pietro Wills MD [address] [place] [address] Assigned Heart and Vascular Provider 12/14/22 06/26/24 Tank Bucio MD [address], [address] [address] Physician train inspector 12/01/23 documented as of this encounter
--- OUTSIDE RECORDS SUMMARY | 2024-07-20 16:34 | XMS_ITS | Encounter Summary ---
Author Organization [facility] Address [address] [place] [address] Care Team Providers Care Open Hearth Furnace Operator Helper Name Role Phone Salina Doherty MD Unavailable [phone] Carrillo Ware APRN ELECTRICAL SYSTEMS ENGINEER Unavailable [phone] SolitarioAngelica golden NP Unavailable [phone] Nelson Arroyo PA-C Primary Care Provider Nelson Arroyo PA-C Unavailable [phone] Tank Bucio MD Unavailable [phone] Reason for Visit * Reason Onset Date Comments Medication Question 06/30/2024 Encounter Details Date Type Department Care Team (Late st Contact Info) Description 06/30/[address] [address] Lauren Jordan RN Medication Question Social History Tobacco Use Types Packs/Day Years [...] re latives? Once a week 11/24/2023 Attends [employer] Services Not on file 11/23 Active Member of Clubs or Organizations Not on f ile 11/24/2023 Attends Club or Organization Meetings Not on asia e 11/24/2023 Marital Status Not on file 11/24/2023 PHQ-2 Answer Date Recorded PHQ-2 Score 0 06/23/2024 [facility] of Occupat ional Health - Occupational Stress [...] in an abandoned building, in an overnight retirement, or couch-surfing.) Yes 11/24/2023 Are you worried [...] by your partner or ex-partner? No 11/24/2023 Estimated Date of Delivery Comme nts Yes 01/14/2025 Sex and Gender Information Value Date Recorded Sex Assigned at Female 10/03/2020 8:33 PM CDT 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:44 AM APPAREL FASHION DESIGNER Gender Identity Female 10/03/2020 8:33 PM CDT Sexual Orientation Straight 07/01/2018 3: 40 PM APPAREL FASHION DESIGNER documented as of this encounter Miscellaneous Notes * Telephone Encounter - Lauren Jordan RN - 07/13/2024 8:52 AM CDT Provider reviewed, will close encounter. [place] Maldonado, RN [facility] * Telephone Encounter - Dulce Lau RN - 06/30/2024 12:34 PM APPAREL FASHION DESIGNER RN called Mackenzie and relayed provider message. She asked for clarification if patient was on metoprolol for hypertension without diagnosis of hypertension? She said she will be by her phone for the next 30 minutes if provider could call her. Routing to provider to please try to call Mackenzie back. Dulce Lau RN, BSN, PHN [facility], [facility] REL FASHION DESIGNER * Telephone Encounter - Nelson Arroyo PA-C - 06/30/2024 11:30 AM APPAREL FASHION DESIGNER Called back. Left a message. Ok to be on labetalol for this. Patient seems to have just had persistent sinus tachycardia. Done will in general on metoprolol but would support the change due to current . Nelson REL FASHION DESIGNER * Telephone Encounter - Lauren Jordan RN - 06/30/2024 10:45 AM APPAREL FASHION DESIGNER Mackenzie Mancuso, DOMINIQUE at [facility] in [place] calls & requests to speak to Nelson Arroyo PA-C regarding patients medications. -Patient is currently and her care will be managed by the [facility] in [place]. Mackenzie Mancuso would like to discuss metoprolol & if it is appropriate to wean patient off of the medication. Is considering lobetalol as an alternative. Mackenzie asked why patient was prescribed the medication (Was she symptomatic, pots, etc) RN reviewed Visit note 08/15/22 (R03.0) Elevated blood pressure reading without diagnosis of hypertension Comment: Plan: metoprolol succinate ER (TOPROL XL) 50 MG 24 hr tablet BP and heart rate remain elevated even with 240mg propranolol daily. Change to metoprolol. Monitor both at home- Follow up with nurse BP check one month. Mackenzie requests Nelson return call to personal phone number. RN placed provider number in confidential note. [place] Maldonado, RN [facility] REL FASHION DESIGNER documented in this encounter Plan of Treatment Not on file documented as of this encounter Visit Diagnoses Not on filedocumented in this encounter Additional Health Concerns Assessment Noted Time PHQ-9 Depression Total Score: 7 06/22/19 25 4:20 PM APPAREL FASHION DESIGNER documented as of this encounter Care Teams Open Hearth Furnace Operator Helper Relationship Specialty Start Date End Date Nelson Arroyo PA-C [address] [place] [address] PCP - General Physician Office Machine Embossograph Operator - Medical 08/06/18 Salina Doherty MD Internal Medicine 12/01/14 Carrillo Ware APRN ELECTRICAL SYSTEMS ENGINEER [address] [place] [address] Nurse Practitioner Nurse Practitioner 12/16/14 Angelica Jerez NP [facility] [address] [place] [address] Nurse Practitioner Nurse Practitioner - Family 07/12/16 Nelson Arroyo PA-C [address] [place] [address] Assigned PCP 07/30/20 Tank Bucio MD [address], [facility] [address] [place] [address] Physician psychic reader 12/01/23 documented as of this encounter
--- OUTSIDE RECORDS SUMMARY | 2024-07-20 16:34 | XMS_ITS | Encounter Summary ---
Author Organization [facility] Address [address] [place] [address]. [place] [address] Care Team Providers Care Addiction Therapist Name Role Phone Salina Doherty MD Unavailable [phone] Carrillo Ware APRN LEAD FRONT DESK AGENT Unavailable [phone] SolitarioAngeliac golden NP Unavailable [phone] Nelson Arroyo PA-C Unavailable Nelson Arroyo PA-C Primary Care Provider Chinyere Barbour Unavailable Unavailable Nelson Arroyo PA-C Unavailable Pietro Wills MD Unavailable Tank Bucio MD Unavailable Encounter Details Date Type Department Care Team (Late st Contact Info) Description 04/25/2020 [facility] Medical Advice [address] [address] Nelson Arroyo PA-C [address] [place] [address] Social History Tobacco Use Types [...] PM CDT 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:44 AM ADZ WORKER Gender Identity Female 10/03/2020 8:33 PM CDT Sexual Orientation Straight 07/01/2018 3: 40 PM ADZ WORKER documented as of this encounter Plan of Treatment Not on file documented as of this encounter Visit Diagnoses Not on filedocumented in this encounter Additional Health Concerns Assessment Noted Time PHQ-9 Depression Total Score: 5 03/03/20 20 7:03 AM CDT documented as of this encounter Care Teams Addiction Therapist Relationship Specialty Start Date End Date Nelson Arroyo PA-C [address] [place] [address] PCP - General Physician Hairspring I Inspector - Medical 08/06/18 Salina Doherty MD Internal Medicine 12/01/14 Carrillo Ware APRN LEAD FRONT DESK AGENT [address] [place] [id number] Nurse Practitioner Nurse Practitioner 12/16/14 Angelica Jerez NP [facility] [address] [place] [address] Nurse Practitioner Nurse Practitioner - Family 07/12/16 Nelson Arroyo PA-C [address] [address] Assigned PCP 07/05/18 07/29/20 Chinyere Barbour Personal Advocate & Liaison (PAL) 01/31/20 04/26/20 Nelson Arroyo PA-C [address] [place] [address] Assigned PCP 07/30/20 Pietro Wills MD [address] [place] [address] Assigned Heart and Vascular Provider 12/14/22 06/26/24 Tank Bucio MD [address] [facility] [address] [place] [address] Physician still worker helper 12/01/23 documented as of this encounter
--- OUTSIDE RECORDS SUMMARY | 2024-07-20 16:34 | XMS_ITS | Clinical Summary ---
Author Organization [place] Address [address] [place] [address] Care Team Providers Care Irrigation Foreman Name Role Phone Salina Doherty MD Unavailable [phone] Carrillo Ware APRN DYEING MACHINE BACK TENDER Unavailable SolitarioAngelica golden NP Unavailable [phone] Nelson Suarez PA-C Primary Care Provider Nelson Suarez PA-C Unavailable [phone] Tank Bucio MD Unavailable [phone] Allergies Active Allergy Reactions Criticality Noted Date Comments Diazepam 09/26/2015 hives Sertraline Hcl Other (See Comments) 10/02/2010 Fainting, unable to sleep Medications * This document contains information received from the source organization and may not represent a complete record from that organization. QUEtiapine (SEROQUEL) 300 MG tabletIndication s:Generalized anxiety disorder Take 1 tablet (300 mg) by mouth At Bedtime 90 tablet 1 08/05/19 22 Active lamoTRIgine (LAMICTAL) 150 MG tablet Take 150 mg by mouth 05/03/20 22 Active EPINEPHrine (ANY BX GENERIC EQUIV) 0.3 MG/0.3ML injection 2-packIndication s:Allergic reaction, initial encounter INJECT 0.3 MLS (0.3 MG) INTO THE MUSCLE NEEDED FOR ANAPHYLAXIS 2 each 07/10/19 24 Active metoprolol succinate ER (TOPROL XL) 50 MG 24 hr tabletIndication s:Elevated blood pressure reading without diagnosis of hypertension Take 1 tablet (50 mg) by mouth 2 times daily. 180 tablet 05/02/20 24 Active hydrOXYzine (ATARAX) 50 MG tabletIndication s:Persistent insomnia TAKE 1 TABLET (50 MG) BY MOUTH EVERY 8 HOURS NEEDED FOR ITCHING 30 tablet 1 10/07/19 21 2024 Discontinued amphetamine-dext roamphetamine (ADDERALL) 10 MG tabletIndication s:Attention deficit hyperactivity disorder (ADHD), predominantly inattentive type Take 1-2 tablets (10-20 mg) by mouth daily As needed for late day symptoms 60 tablet 09/25/19 22 2024 Discontinued cetirizine (ZYRTEC) 10 MG tabletIndication s:Seasonal allergic rhinitis, unspecified trigger TAKE 1 TABLET BY MOUTH EVERY DAY 90 tablet 02/13/20 22 2024 Discontinued LORazepam (ATIVAN) 0.5 MG tabletIndication s:Generalized anxiety disorder TAKE 1 TABLET BY MOUTH EVERY 6 HOURS NEEDED FOR ANXIETY. 20 tablet 05/13/19 24 2024 Discontinued tretinoin (RETIN-A) 0.05 % external creamIndications :Acne, unspecified acne type SPREAD A PEA SIZE AMOUNT INTO AFFECTED AREA TOPICALLY AT BEDTIME. USE SUNSCREEN SPF>20. 45 g 11/14/19 24 2024 Discontinued guanFACINE (INTUNIV) 2 MG TB24 24 hr tablet Take 2 mg by mouth daily 2024 Discontinued tretinoin (RETIN-A) 0.025 % external creamIndications :Acne, unspecified acne type Apply topically at bedtime. 45 g 1 03/24/20 24 2024 Discontinued tiZANidine (ZANAFLEX) 4 MG tabletIndication s:Muscle spasm TAKE 1 TAB BY MOUTH 4 TIMES DAILY NEEDED FOR MUSCLE SPASMS. TAKE NIGHTLY 120 tablet 2 04/07/20 24 2024 Discontinued Active Problems Problem Noted Date Diagnosed Date Major depressive disorder, recurrent episode, se liyah 10/29/2021 ASCUS with positive high risk HPV cervical 03/02 Overview (04/09/2023): 03/02/20 ASCUS, +HR HPV, not 16/18. Plan [place] bef 06/02/20 11/14/20 Lost to follow-up for pap tracking 01/31/21 [place] Bx's & ECC - negative ([facility]) 03/31/23 NIL pap, Neg HR HPV Plan [place] in 3 years Sinus tachycardia 07/05/2019 Persistent insomnia 06/30/2019 Palpitations 05/15/2018 Controlled substance agreeme nt signed. BOAT BUFFER PLASTIC check05/13/18, no concerns 08/21/2015 Other specified attention [...] Benzodiazepine use reviewed by psychiatry: No Last [facility] website verification: done on 10.20.18 [email or web address] Major depressive disorder, recurrent episode, mo derate 09/10/2011 ODD (oppositional defiant disorder) 05/24/2011 Syncope 10/04/2010 Estimated Date of Delivery Comme nts Yes 01/14/2025 Resolved Problems Problem Noted Date Diagnosed Date Resolved Date Morbid obesity 08/15/2022 11/24/2023 Adjustment disorder with dis turbance of conduct 09/10/2011 10/04/2016 Cannabis abuse, episodic 05/24/2011 Depression 05/24/2011 01/08/2015 Encounters Date Type Department Care Team Description 06/30/2024 Telephone [facility] [address] [place] [address] Lauren Jordan RN Medication Question 06/29/[address] [facility] [address] [place] [address] Nelson Suarez PA-C Medication Question (Metoprolol - OB ) 06/24/2024 1:00 PM GAME FARM HELPER Virtual Visit [facility] [address] [place] [phone] Nelson Suarez PA-C 10 weeks gestation of (Primary Dx); Elevated blood pressure reading without diagnosis of hypertension; Sinus tachycardia 06/23/2024 MyC Medical Advice [facility] [address] [place] [address] Rianna Spangler L 06/11/2024 MyC Medical Advice [facility] [address] [place] [phone] Nelson Suarez PA-C 05/01/2024 MyC Medical Advice [facility] [address] [place] [address] Nelson Suarez PA-C Elevated blood pressure reading without diagnosis of hypertension 05/01/2024 MyC Refill [facility] [address] [place] [phone] Nelson Suarez PA-C Refill Request 04/27/2024 MyC [facility]ill [facility] [address] [place] [phone] Nelson Suarez PA-C Refill Request from Last 3 Months Immunizations Name Administration Dates Next Due DTaP, Unspecified 08/02/1999, 6,01/09/1995,10/11,1994 Flu, Unspecified 03/03/2017, 5,01/19/2015,03/11,03/10/2014,04/09/2012,02/12/2010 HEPA 04/09/2012,02/12/2010 HIB (PRP-T) 09/25/1995, 5,1994,08/13 HPV 01/15/2011,08/02/2010,02/12/2010 HepB 03/11/1995,1994,1994 HepB, Unspecified 03/11/1995,1994,08/13/18 95 Hepatitis B, Adult (Energix-B/Recombivax HB) 03/11/2023 Influenza (IIV3) PF 02/16/2015, 4,04/09/2012,02/12 Influenza Vaccine (Flucelvax Quadrivalent) 03/11/2023 Influenza Vaccine >6 months,quad, PF 10/2021,05/14/2021,03/02/2020,02/04,06/22/2018 Influenza Vaccine, 6+MO IM (QUADRIVALENT W/PRESERVATIVES) 03/03/2017,03/11/2014 Influenza vaccine ages 6-35 months 03/03/2017 MMR (MMRII) 08/02/1999,09/25/1995 Mantoux Tuberculin Skin Test 01/26/2019,08/10/19 15,06/27/2014 Meningococcal (Menomune ) 04/09/2012,07/05/2009 Poliovirus, inactivated (IPV) 08/02/1999 ,01/09/1995,1994,08/13 TDAP (Adacel,Boostrix) 12/27/2005,1999,09/25/1995,01/09,1994,1994 TDAP Vaccine (Adacel) 08/30/2016 Varicella (Varivax) 07/05/2009,09/25/1995 Family History Medical History Relation Comments Anxiety Disorder Brother 1 Genetic Disorder Brother 2 Alcohol/Drug Father alcohol, in was residential for DUI Anxiety Disorder Father Mental Illness [...] re latives? Once a week 11/24/2023 Attends Orthodoxy Services Not on file 11/23 Active Member of Clubs or Organizations Not on f ile 11/24/2023 Attends Club or Organization Meetings Not on asia e 11/24/2023 Marital Status Not on file 11/24/2023 PHQ-2 Answer Date Recorded PHQ-2 Score 0 06/23/2024 [facility] - Occupational [...] Answer Date Recorded Do you have housing? (Victoriain g is defined as stable permanent housing and does not include staying ouside in a car, in a tent, in an abandoned building, in an overnight assisted, or couch-surfing.) Yes 11/24/2023 Are you worried [...] PM CDT 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:44 AM GAME FARM HELPER Gender Identity Female 10/03/2020 8:33 PM CDT Sexual Orientation Straight 07/01/2018 3: 40 PM GAME FARM HELPER Last Filed Vital Signs Vital Sign Reading [...] 2024 , 02/07/2022, 05/14/2021, Additional history exists TDAP () IMMUNIZATION 10/15/2024 12/27/2005, 08/02/1999, 09/25/1995, Additional history exists YEARLY PREVENTIVE VISIT 11/23/2024 11/24/19 24, 08/15/2022, 02/07/2022, Additional history exists PHQ-9 12/21/2024 06/23/2024, 11/03, 03/31/2023, Additional history exists ANNUAL REVIEW OF HM ORDERS 06/24/202506/24, 11/24/2023, 07/24/2022, Additional history exists SHANTELL ASSESSMENT 06/24/2025 06/24/2024, 02/02, 10/22/2021, Additional history exists HPV FOLLOW-UP 03/31/2026 03/31/2023, 03/02/2020 PAP FOLLOW-UP 03/31/2026 03/31/2023, 02/03, 06/27/2015 DTAP/TDAP/TD IMMUNIZATION (8 - Td or Tdap) 08/30/2026 08/30/2016, 12/27/2005, 08/02/1999, Additional history exists ADVANCE CARE PLANNING 11/23/2028 11/24/2023, 023 ZOSTER IMMUNIZATION (1 of 2) 2044 HPV IMMUNIZATION Completed 01/15/2011, , 02/12/2010 MENINGITIS IMMUNIZATION Aged Out 04/09/2012, 07/05 No longer eligible based on patient's age to complete this topic DEPRESSION ACTION PLAN Completed 8, 11/25/2017, 08/30/2016, Additional history exists HEPATITIS B IMMUNIZATION Completed 023, 03/11/1995, 03/11/1995, Additional history exists PAP Discontinued 03/31/2023, 02/03, 06/27/2015 HEPATITIS C SCREENING Completed 05/21/2024 , 02/07/2022, 12/27/2014 HIV SCREENING Completed 05/21/2024, 05/06, 05/24/2011 Pneumococcal Vaccine: Pediatrics (0 to 5 Years) and At-Risk Patients (6 to 49 Years) Aged Out No longer eligible based on patient's age to complete this topic RSV VACCINE (No Doses Required) Completed Procedures Procedure Name Priority Date/Time Associated Diagnosis Comments HPV HIGH RISK TYPES DNA CERVICAL Add-On 03/31/2023 2:16 PM GAME FARM HELPER ASCUS with positive high risk HPV cervical GYNECOLOGIC CYTOLOGY Routine 03/31/2023 2:16 PM GAME FARM HELPER Cervical cancer screening HEPATITIS C ANTIBODY Routine 12/27/2014 3:38 PM CDT Pain in joint, multiple sites Raynaud's syndrome Arthralgia of both knees Smoker HIV 1 AND 2 ANTIBODY (QUEST) Routine 05/24/2011 7:21 AM GAME FARM HELPER from Last 3 Months or Most Recently Relevant to Health Maintenance Results * Pap Screen reflex to HPV if ASCUS - recommend age 25 - 29 (03/31/2023 2:16 PM GAME FARM HELPER) Interpretation Negative for Intraepithelial Lesion or Malignancy (NILM) 04/03/2023 10:33 AM GAME FARM HELPER [facility] Comment Papanicolaou Test Limitations: Cervical cytology is a screening test with limited sensitivity, and regular screening is critical for cancer prevention. Pap tests are primarily effective for the diagnosis/prevent ion of squamous cell carcinoma, not adenocarcinoma or other cancers. 04/03/2023 10:33 AM GAME FARM HELPER [facility] Specimen Adequacy Satisfactory for evaluation, endocervical/angel sformation zone component absent 04/03/2023 10:33 AM GAME FARM HELPER [facility] Clinical Information none 04/03/2023 10:33 AM GAME FARM HELPER [facility] LMP/Menopause Date 03/12/2023 04/03/2023 10:33 AM GAME FARM HELPER [facility] Reflex Testing Yes if ASCUS 04/03/20 10:33 AM GAME FARM HELPER [facility] Previous Abnormal? Yes 04/03/2023 10:33 AM GAME FARM HELPER [facility] Previous Abnormal Diagnosis HPV 2020, ASCUS 04/03/2023 10:33 AM GAME FARM HELPER [facility] Performing Labs The technical component of this testing was completed at [facility] 04/03/2023 10:33 AM GAME FARM HELPER [facility] Brushing CERVIX UTERI STRUCTURE / Unknown Non-blood Collection / Unknown 03/31/2023 2:16 PM GAME FARM HELPER 03/31/2023 2:26 PM GAME FARM HELPER us Nelson AARON Final Resul t [facility] Specialty Lab [address] [facility], [address] [address], [facility] [phone] * HPV High Risk Types DNA Cervical (03/31/2023 2:16 PM GAME FARM HELPER) Other HR HPV Negative Negative 04/07/2023 8:30 AM GAME FARM HELPER [facility] HPV16 DNA Negative Negative 04/07/2023 8:30 AM GAME FARM HELPER [facility]AGNOST[facility] HPV18 DNA Negative Negative 04/07/2023 8:30 AM GAME FARM HELPER MOLECULAR DIAGNOSTICS FINAL DIAGNOSIS This patient's sample is negative for HPV DNA. This test was developed and its performance characteristics determined by the [facility]. It has not been [...] clinical followup is recommended. 04/07/2023 8:30 AM GAME FARM HELPER MO[facility] DIAGNOSTICS Brushing CERVIX UTERI STRUCTURE / Unknown Non-blood Collection / Unknown 03/31/2023 2:16 PM GAME FARM HELPER 04/04/2023 9:26 AM GAME FARM HELPER us Nelson Suarez PA-C LAB - BLOOD ORDERABLES Kalee l Result [facility] [address] [facility] [address] [facility], [address] [place], [place] [address], [facility] [phone] * Hepatitis C antibody (12/27/2014 3:38 PM CDT) Hepatitis C Antibody Nonreactive Assay performance characteristics have not been established for newborns, infants, and children NR [facility] Blood specimen (specimen) 12/27/2014 3:38 PM CDT 12/27/2014 3:40 PM CDT us Carrillo Ware APRN DYEING MACHINE BACK TENDER LAB - BLOOD ORDERABLE S Final Result Performing Organization Address [facility] Co de Phone Number [facility] [address] [place] [address] * HIV 1 and 2 Antibody (05/24/2011 7:21 AM GAME FARM HELPER) Pathologist [facility] HIV 1&2 Antibody Negative NEG [facility] 05/24/2011 7:21 AM GAME FARM HELPER 05/24/2011 7:22 AM GAME FARM HELPER us Vidal Suarez MD LAB - BLOOD ORDERABLES Final Result Performing Organization Address [facility] Co de Phone Number [facility] [address] [place] [address] from Last 3 Months or Most Recently Relevant to Health Maintenance Insurance [facility] * Guarantor: Nidia Crystal Account Type Relation to Patient Date of Phone Billing Address Medication Therapy Self [address] [place] [address] Advance Directives For more information, please contact: [phone] * Full Code (Latest Code Status on File) Date Activated Date Inactivated Comments 05/23/2011 9:13 PM 05/28/2011 6:55 PM Care Teams Irrigation Foreman Relationship Specialty Start Date End Date Nelson Suarez PA-C [address] [address] PCP - General Physician Ux Ui Designer - Medical 08/06/18 Salina Doehrty MD Internal Medicine 12/01/14 Carrillo Ware APRN DYEING MACHINE BACK TENDER [address] [place] [address] Nurse Practitioner Nurse Practitioner 12/16/14 Angelica Jerez NP [facility] [address] [place] [address] Nurse Practitioner Nurse Practitioner - Family 07/12/16 Nelson Suarez PA-C [address] [place] [address] Assigned PCP 07/30/20 Tank Bucio MD [address] [facility] [address] [place] [address] Physician stitch bonding machine operator 12/01/23
--- OUTSIDE RECORDS SUMMARY | 2024-07-20 16:34 | XMS_ITS | Encounter Summary ---
Author Organization [place] Address [address] [place] [address]. [place] [address] Care Team Providers Care Crucible Packer Name Role Phone Salina Doherty MD Unavailable [phone] Carrillo Ware APRN IT ARCHITECT Unavailable SolitarioAngelica golden NP Unavailable [phone] Nelson Arroyo PA-C Primary Care Provider [phone] Nelson Arroyo PA-C Unavailable [phone] Tank Bucio MD Unavailable [phone] Reason for Visit * Reason Onset Date Comments Medication Question 06/29/2024 Metoprolol - OB Encounter Details Date Type Department Care Team (Late st Contact Info) Description 06/29/2024 MyC Medical Advice [facility] [address] [place] [address] Nelson Arroyo PA-C [address] [place] [address] Medication Question (Metoprolol - OB ) Social History Tobacco Use Types Packs/Day [...] re latives? Once a week 11/24/2023 Attends Islam Services Not on file 11/23 Active Member of Clubs or Organizations Not on f ile 11/24/2023 Attends Club or Organization Meetings Not on asia e 11/24/2023 Marital Status Not on file 11/24/2023 PHQ-2 Answer Date Recorded PHQ-2 Score 0 06/23/2024 [facility] - Occupational Stress [...] PM CDT 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:44 AM KNIT GOODS WASHER Gender Identity Female 10/03/2020 8:33 PM CDT Sexual Orientation Straight 07/01/2018 3: 40 PM KNIT GOODS WASHER documented as of this encounter Miscellaneous Notes * Telephone Encounter - Rianna Spangler - 06/30/2024 9:30 AM CST Forwarding updated information to Provider. Patient sent OB Provider information to discuss medication metoprolol [phone] GOODS WASHER * Telephone Encounter - Rianna Spangler - 06/29/2024 3:51 PM CST MCM sent to patient to recheck her OB phone number. When number is sent in - forward to Nelson Arroyo as she needs to call OB provider. Kezia Spangler Doctor Of Podiatric Medicine GOODS WASHER * Telephone Encounter - Nelson Arroyo PA-C - 06/29/2024 3:34 PM KNIT GOODS WASHER I called that number and it seems to be a fax number. GOODS WASHER * Telephone Encounter - Rianna Spangler - 06/29/2024 3:07 PM CST Forwarding information to Provider. Patient sent OB Provider information to discuss medication. OB provider will need to be paged to contact her to discuss medication metoprolol Mackenzie Mancuso with [facility] at the [facility]. Address: [address] [place] [address] Phone: [phone] Kezia Spangler Doctor Of Podiatric Medicine GOODS WASHER * Telephone Encounter - Adrienne Frazier RN - 06/29/2024 10:56 AM KNIT GOODS WASHER See my chart, awaiting patient response with contact information for OB After received please send to Nelson Arroyo PAC to see if she would like the OB provider paged to contact her to discuss medication metoprolol Adrienne Frazier RN on 06/29/2024 at 10:59 AM GOODS WASHER * Telephone Encounter - Rianna Spangler - 06/29/2024 10:30 AM CST Forwarding to nurse team for further follow-up. Kezia Spangler Doctor Of Podiatric Medicine GOODS WASHER documented in this encounter Plan of Treatment Not on file documented as of this encounter Visit Diagnoses Not on filedocumented in this encounter Additional Health Concerns Assessment Noted Time PHQ-9 Depression Total Score: 7 06/22/19 25 4:20 PM KNIT GOODS WASHER documented as of this encounter Care Teams Crucible Packer Relationship Specialty Start Date End Date Nelson Arroyo PA-C [address] [place] [address] PCP - General Physician Shochet - Medical 08/06/18 Salina Doherty MD Internal Medicine 12/01/14 Carrillo Ware APRN IT ARCHITECT [address] [place] [address] Nurse Practitioner Nurse Practitioner 12/16/14 Angelica Jerez NP [facility] [address] [place] [address] Nurse Practitioner Nurse Practitioner - Family 07/12/16 Nelson Arroyo PA-C [address] [facility] [place] [address] Assigned PCP 07/30/20 Tank Bucio MD [address] [facility] [address] [place] [address] Physician oracle agile plm consultant 12/01/23 documented as of this encounter
--- OUTSIDE RECORDS SUMMARY | 2024-07-20 16:34 | XMS_ITS | Encounter Summary ---
Author Organization [place] Address [address] [place] [address]. [place] [address] Care Team Providers Care Metal Furniture Assembler Name Role Phone Salina Doherty MD Unavailable [phone] Carrillo Ware APRN PEBBLE MILL OPERATOR Unavailable [phone] SolitarioAngelica golden NP Unavailable [phone] Nelson Arroyo PA-C Unavailable [phone] Nelson Arroyo PA-C Primary Care Provider [phone] Chineyre Barbour Unavailable Unavailable Nelson Arroyo PA-C Unavailable [phone] Pietro Wills MD Unavailable [phone] Tank Bucio MD Unavailable Reason for Visit * Reason Onset Date Comments Refill Request 04/25/2020 Encounter Details Date Type Department Care Team (Late st Contact Info) Description 04/25/2020 MyC Pietro [facility], [address] [place] [address] [place] [address] [place] [address] Refill Request Social History Tobacco [...] PM CDT 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:44 AM LEAD NEURODIAGNOSTIC TECHNOLOGIST Gender Identity Female 10/03/2020 8:33 PM CDT Sexual Orientation Straight 07/01/2018 3: 40 PM LEAD NEURODIAGNOSTIC TECHNOLOGIST documented as of this encounter Plan of Treatment Not on file documented as of this encounter Visit Diagnoses Diagnosis Generalized anxiety disorder Major depressive disorder, recurrent episode, moderate (H) Major depressive disorder, recurrent episode, moderate documented in this encounter Additional Health Concerns Assessment Noted Time PHQ-9 Depression Total Score: 5 03/03/20 20 7:03 AM CDT documented as of this encounter Care Teams Metal Furniture Assembler Relationship Specialty Start Date End Date Nelson Arroyo PA-C [address] [place] [address] PCP - General Physician Sales Product Specialist - Medical 08/06/18 Salina Doherty MD Internal Medicine 12/01/14 Carrillo Ware APRN PEBBLE MILL OPERATOR [address] [place] [address] Nurse Practitioner Nurse Practitioner 12/16/14 Angelica Jerez NP [facility] [address] [place], [place] [address] Nurse Practitioner Nurse Practitioner - Family 07/12/16 Nelson Arroyo PA-C [address] [address] Assigned PCP 07/05/18 07/29/20 Chinyere Barbour Personal Advocate & Liaison (PAL) 01/31/20 04/26/20 Nelson Arroyo PA-C [address] [place] [address] Assigned PCP 07/30/20 Pietro Wills MD [address] [place] [address] Assigned Heart and Vascular Provider 12/14/22 06/26/24 Tank Bucio MD [address] [facility] [address] [place] [address] Physician wharf tender head 12/01/23 documented as of this encounter
--- OUTSIDE RECORDS SUMMARY | 2024-07-20 16:34 | XMS_ITS | Encounter Summary ---
Author Organization [place] Address [address] [place] [address]. [place] [address] Care Team Providers Care Turbine Technician Name Role Phone Salina Doherty MD Unavailable Carrillo Ware APRN CYLINDER HONER Unavailable SolitarioAngelica golden NP Unavailable [phone] Nelson Arroyo PA-C Primary Care Provider Nelson Arroyo PA-C Unavailable Pietro Wills MD Unavailable Tank Bucio MD Unavailable Encounter Details Date Type Department Care Team (Late st Contact Info) Description 07/30/2023 MyC Medical Advice [facility] [address] [place] [address] Nelson Arroyo PA-C [address] [place] [address] Social History Tobacco Use Types [...] in an abandoned building, in an overnight care home, or couch-surfing.) Yes 03/31/2023 Are you worried [...] PM CDT 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:44 AM HERD TESTER Gender Identity Female 10/03/2020 8:33 PM CDT Sexual Orientation Straight 07/01/2018 3: 40 PM HERD TESTER documented as of this encounter Miscellaneous Notes * Telephone Encounter - Kay Zambrano RN - 07/30/2023 5:53 PM CDT Will forward to Nelson Arroyo. documented in this encounter Plan of Treatment Not on file documented as of this encounter Visit Diagnoses Not on filedocumented in this encounter Additional Health Concerns Assessment Noted Time PHQ-9 Depression Total Score: 8 03/31/20 23 1:09 PM HERD TESTER documented as of this encounter Care Teams Turbine Technician Relationship Specialty Start Date End Date Nelson Arroyo PA-C [address] [place] [address] PCP - General Physician Tile Grader - Medical 08/06/18 Salina Doherty MD Internal Medicine 12/01/14 Carrillo Ware APRN CYLINDER HONER [address] [place] [address] Nurse Practitioner Nurse Practitioner 12/16/14 Angelica Jerez NP [facility] [address] [place], [place] [address] Nurse Practitioner Nurse Practitioner - Family 07/12/16 Nelson Arroyo PA-C [address] [place] [address] Assigned PCP 07/30/20 Pietro Wills MD [address] [place] [address] Assigned Heart and Vascular Provider 12/14/22 06/26/24 Tank Buico MD [address], [address] [address] Physician military exchange wireless manager 12/01/23 documented as of this encounter
--- OUTSIDE RECORDS SUMMARY | 2024-07-20 16:34 | XMS_ITS | Clinical Summary ---
Author Organization [employer] [facility] Address [address] [place] [id number] Care Team Providers Care Solar Maintenance Technician Name Role Phone Pcp, No Primary Care Provider Unavailabl e Allergies Active Allergy Reactions Criticality Noted Date Comments Sertraline Hcl Other - Describe In Comment Field 10/02/2010 Fainting, unable to sleep Medications tretinoin 0.05 % 0.05 % cream Spread a pea size amount into affected area topically at bedtime. Use sunscreen SPF>20. 45 g 11 04/26/2015 12:49 PM ENTRY CLERK 5 Active cetirizine (ZYRTEC) 10 mg tablet Take 10 mg by mouth once daily. 1 Active EPINEPHrine (EPIPEN) 0.3 mg/0.3 mL injection INJECT 0.3 MLS (0.3 MG) INTO THE MUSCLE NEEDED FOR ANAPHYLAXIS 1 Active tiZANidine (ZANAFLEX) 4 mg tabletIndicati ons:Tightness of neck Take 0.5-1 Tablets (2-4 mg) by mouth at bedtime if needed for Muscle Spasm. 30 Tablet 2 Active Additional Information Patient not taking.Reported on 07/19/2024 COQ10, UBIQUINOL, ORAL Take by mouth. Activ e magnesium 250 mg tab Take 250 mg by mouth once daily. Active vitamins no.2 ( VITAMIN NO.2 ORAL) Take by mouth. Activ e calcium carbonate (Calcium 500) 500 mg calcium (1,250 mg) chewable tablet Chew 1,250 mg by mouth three times daily with meals. Active metoprolol succinate (TOPROL XL) 50 mg sustained-rele ase tablet Take 1 Tablet (50 mg) by mouth two times daily. 4 Active lamoTRIgine 150 mg tabletIndicati ons:Severe episode of recurrent major depressive disorder, without psychotic features (HC) Take 1 Tablet (150 mg) by mouth once daily. 90 Tablet 1 5 Active QUEtiapine (SEROQUEL) 300 mg tabletIndicati ons:Severe episode of recurrent major depressive disorder, without psychotic features (HC) Take 1 Tablet (300 mg) by mouth at bedtime. 90 Tablet 1 5 Active lamoTRIgine 150 mg tabletIndicati ons:Generalize d anxiety disorder,Sever e episode of recurrent major depressive disorder, without psychotic features (HC) Take 1 Tablet (150 mg) by mouth once daily. 90 Tablet 1 4 07/20/19 25 Discontin ued(Reord er (E-cancel not sent)) QUEtiapine (SEROQUEL) 300 mg tabletIndicati ons:Severe episode of recurrent major depressive disorder, without psychotic features (HC) Take 1 Tablet (300 mg) by mouth at bedtime. 90 Tablet 1 4 07/20/19 25 Discontin ued(Reord er (E-cancel not sent)) Active Problems Problem Noted Date Diagnosed Date [...] cervical 03/02/2020 03/02/2020 ASCUS/HPV+, HPV 16/18 Negative. ([place]). PLAN: Pap/HPV testing due 01/2022 Depression 2014 [...] Overview (02/01/2021): 03/02/2020 ASCUS/HPV+, HPV 16/18 Negative. ([place]) 01/31/2021 Colposcopy: Benign PLAN: Pap/HPV testing due 01/2022 Estimated Date of Delivery Comme nts Yes 01/14/2025 Based on last me nstrual period of 04/09/2024 Encounters Date Type Department Care Team Description 07/19/2024 10:45 AM CDT Office Visit [facility] [address] [place] [address] Chrissy Jefferson NP Medication Management 07/19/2024 Travel 06/30/2024 Telephone [facility] [address] [place] [address] Lou Bobby, DO Follow Up (Does pt have new ob provider) 06/02/2024 Nurse Triage [facility] Centralized Nurse Triage Pcp, No 05/31/2024 3:00 PM ENTRY CLERK Orders Only [facility] [id number] [place] [address] [address] [place] [address] Lab 05/31/2024 11:00 AM ENTRY CLERK Office Visit [facility] [address] [facility] [address] [place] [phone] Susanne Wallace NP Oxyacetylene Torch Operator Exam (Early Vaginal spotting, cramping ) 05/31/2024 9:30 AM ENTRY CLERK Ancillary Procedure [facility] [address] [facility] [address] [place] [address] 05/31/2024 Travel 05/31/2024 Nurse Triage [facility] [address] [place] [address] Lou Bobby, DO Spotting 05/28/2024 1:45 PM ENTRY CLERK Ancillary Procedure [facility] [address] [facility] [address] [place] [address] 05/27/2024 Travel 05/21/2024 1:40 PM ENTRY CLERK OB Encounter [facility] [address] [place] [address] Education (Ob intake ) 05/21/2024 Travel 05/19/2024 3:15 PM ENTRY CLERK Telemedicine [facility] [address] [place] [address] Chrissy Jefferson NP Telehealth; Medication Management (Things are going good, Wanting to review what the psych said) 05/19/2024 Travel 05/18/2024 E-Consult [facility] [address] [facility] [address] [place] [address] Mai Perea MD 05/17/2024 1:45 PM ENTRY CLERK Telemedicine [facility] [address] [place] [address] Chrissy Jefferson NP Telehealth; Medication Management (Things are going good,/Got a positive test this morning!) 05/17/2024 Travel 05/02/2024 Refill [facility] [address] [place] [address] Chrissy Jefferson NP Refill Request (Lorazepam) from Last 3 Months Immunizations Immunization Administration Dates Next Due HIB PRP-T (ActHIB,Hiberix) 09/25/1995,01/09/1995 ,1994,1994 HPV 9 (Gardasil 9) 01/15/2011,08/02/2010, 010 Hepatitis A, Unspecified 04/09/2012,02/12/2010 Hepatitis B, Unspecified 03/11/1995,1994,0 1994 Inactivated Polio Vaccine 08/02/1999,01/09/1995, 1994,1994 Influenza Virus, Unspecified 03/03/2017, 02/16/2015,01/19/2015,03/11/2014 ,03/10/2014,04/09/2012,02/12/2010 Influenza, IIV4 02/07/2022,03/02/2020,02/04/2019 ,06/22/2018 MMR 08/02/1999,09/25/1995 Meningococcal Vaccine (Menomune) 04/09/2012,0 07/2009 Tdap 12/27/2005 Tdap, Unspecified 08/30/2016, 0,09/25/1995,01/09/1995 [...] Answer Date Recorded PHQ-2 TOTAL SCORE 0 07/19/2024 Social Connections Answer Date Recorded Frequency of [...] on file Legal Sex Female 8:07 AM ENTRY CLERK Gender Identity Not on file Sexual Orientation [...] Estimated Date of Delivery 05/21/2024 - Present (07/20/2024) 01/14/2025 (set by Valentina Marie, RN on 05/21/2024 based on Last Menstrual Period on 04/09/2024) Dating Summary Based On GABRIEL GA Diff Last Menstrual Period on 04/09/2024 01/14/2025 Working Alternate GABRIEL Entry 01/14/2025 Same Vitals Pregravid Weight Height TWG (As of 07/20/2024) Pregrav id BMI 1.667 m (5' 5.63) Notes Progress Notes - OB Encounte r - 05/21/2024 - GA:6w0d 05/21/2024 - 6w0d - Valentina Marie, YULI SUBJECTIVE: Nidia Crystal is a 28 y.o. 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 MENSTRUAL HISTORY: Patient's last menstrual period was 04/09/2024.: Cycle Regularity: regular, every 28-30 days Past Medical History: . Date Anxiety 2014 ASCUS with positive high risk HPV cervical 03/02/2020 03/02/2020 ASCUS/HPV+, HPV 16/18 Negative. ([place]). 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 - Encouraged patient to call clinic at [phone] with any vaginal bleeding, fluid leaking from [...] Department Center 06/25/2024 4:05 PM Lou Bobby, DO NFLDFP NFLD Valentina Marie RN .................... 05/21/2024 1:57 PM Y CLERK Last Filed Vital Signs Vital Sign Reading Time Taken Comments Blood Pressure 111/69 07/19/2024 10:51 AM CDT Pulse 86 07/19/2024 10:51 AM CDT Temperature 37.1 C (98.7 F) 03/01/2015 6:05 PM CDT Respiratory Rate 16 03/01/2015 6:05 PM CDT Oxygen Saturation 99% 03/01/2015 6:05 PM CDT RA Inhaled Oxygen Concentration - - Weight 94.8 kg (209 lb) 07/19/2024 10:51 AM CDT Height 166.7 cm (5' 5.63) 05/21/2024 1:46 PM CS T Body Mass Index 34.11 05/21/2024 1:46 PM ENTRY CLERK Plan of Treatment Health Maintenance Due Date Last Done Comments Pap test for age 21-65 2015 COVID-19 vaccine series ( season) 2024 Influenza Vaccine (#1) 2024 , 03/02/2020, 02/04/2019, Additional history exists BMI (ht and wt on same day) for age 18+ 05/21/2025 05/21/2024, 02/07/2022, 04/09/2021, Additional history exists Depression screening for age 12+ 07/19/2025 07/19/2024, 05/21/2024, 05/19/2024, Additional history exists Tetanus booster 08/30/2026 08/30/2016, [...] Diagnosis Comments PROGESTERONE Routine 05/31/2024 2:53 PM ENTRY CLERK Low serum progesterone US OB LIMITED ANY TRI TA STAT 05/31/2024 11:47 AM ENTRY CLERK Vaginal bleeding in , first trimester URINE POCT Routine 05/31/2024 10:59 AM ENTRY CLERK Encounter for test, result unknown US OB ANY TRI TV Routine 05/28/2024 2:10 PM ENTRY CLERK Encounter for supervision of normal first in first trimester ANTI HIV 1/2 Routine 05/21/2024 2:50 PM ENTRY CLERK Encounter for supervision of normal first in first trimester CBC W PLT NO DIFF Routine 05/21/2024 2:5 0 PM ENTRY CLERK Encounter for supervision of normal first in first trimester RUBELLA IMMUNE STATUS Routine 05/21/2024 2:50 PM ENTRY CLERK Encounter for supervision of normal first in first trimester HBSAG (HBS) Routine 05/21/2024 2:50 PM ENTRY CLERK Encounter for supervision of normal first in first trimester ANTI HCV Routine 05/21/2024 2:50 PM ENTRY CLERK Encounter for supervision of normal first in first trimester VARICELLA-ZOSTER V AB, IGG Routine 05/21/2024 2:50 PM ENTRY CLERK Encounter for supervision of normal first in first trimester WEAK D (DU) LAB USE ONLY Routine 05/21/2024 2:28 PM ENTRY CLERK Encounter for supervision of normal first in first trimester TYPE & SCREEN Routine 05/21/2024 2:28 PM ENTRY CLERK Encounter for supervision of normal first in first trimester UA W/ SEDIMENT EXAM REFLEXED PER CRITERIA Routine 05/21/2024 2:28 PM ENTRY CLERK Encounter for supervision of normal first in first trimester GC CHLAMYDIA TRACH PROBE Routine 05/21/2024 2:28 PM ENTRY CLERK Encounter for supervision of normal first in first trimester TREPONEMA PALLIDUM Routine 05/21/2024 2: 28 PM ENTRY CLERK Encounter for supervision of normal first in first trimester URINE CULTURE Routine 05/21/2024 2:28 PM ENTRY CLERK Encounter for supervision of normal first in first trimester from Last 3 Months Results * PROGESTERONE (05/31/2024 2:53 PM ENTRY CLERK) PROGESTERONE 9.8 ng/mL [facility] Comment: Reference Ranges Female Follicular Phase < 1.0 Luteal Phase 2.6-21.5 Post menopausal < 0.5 1st Trimester 4.1-34.0 2nd Trimester 24.0-76.0 3rd Trimester 52.0-302.0 Blood BLOOD SPECIMEN / Unknown 05/31/2024 2:53 PM ENTRY CLERK 05/31/2024 2:53 PM ENTRY CLERK us Susanne Wallace NP SEND OUTS Final R esult [employer] [facility] [address] [place] [address], [place] [phone] [facility] [address] [place] [address] * US OB LIMITED ANY TRI TA (05/31/2024 11:47 AM ENTRY CLERK) Anatomical Region Laterality Modality , 2or 3 TRIMESTER, 1ST TRIMESTER Ultrasound Impressions 05/31/2024 12:10 PM ENTRY CLERK Single living intrauterine with a heart tone of 153 beats per minute. Marilin Dixon MD 05/31/2024 12:10 PM Narrative 05/31/2024 12:10 PM ENTRY CLERK Table formatting from the original result was not included. For Patients: Results are automatically released to your [facility] account once available, in compliance with federal [...] rhythm. us Susanne Wallace NP US Final R esult * (ABNORMAL) POCT Urine (05/31/2024 10:59 AM ENTRY CLERK) ,URIN E Positive(P ositive) Negative 05/31/2024 11:00 AM ENTRY CLERK [facility] Comment:Is Rh typing necessa ry? Urine URINE SPECIMEN / Unknown Non-Blood / Unknown 05/31/2024 10:59 AM ENTRY CLERK 05/31/2024 10:59 AM ENTRY CLERK us Susanne Wallace NP URINE Final R esult [facility] [address] [facility] [address] [place] [address], * US OB ANY TRI TV (05/28/2024 2:10 PM ENTRY CLERK) Anatomical Region Laterality Modality , 2or 3 TRIMESTER, 1ST TRIMESTER Ultrasound 05/29/2024 10:0 2 AM ENTRY CLERK Addenda Addendum by Hung Sifuentes MD on 05/29/2024 10:27 AM ENTRY CLERK For Patients: As a result of the [...] Intrauterine gestation: Single. heart activity (bpm): 127. [place]-rump length: 1.0 cm. Estimated ultrasound age: 7 weeks 1 day. GABRIEL by ultrasound: January 13, 2025. Yolk sac: Normal. Perigestational hemorrhage: None. Ovaries and adnexa: Unremarkable. Suspicious pelvic fluid collections: None. IMPRESSION: Single viable intrauterine . No abnormalities seen. Dictated by Hung Sifuentes MD @ 05/29/2024 10:27:08 AM (Electronically Signed) Impressions 05/29/2024 10:02 AM ENTRY CLERK Single viable intrauterine . No abnormalities seen. Dictated by Hung Sifuentes MD @ 05/29/2024 10:02:03 AM (Electronically Signed) Narrative 05/29/2024 10:02 AM ENTRY CLERK For Patients: As a result of the [...] Intrauterine gestation: Single. heart activity (bpm): 127. [place]-rump length: 1.0 cm. Estimated ultrasound age: 7 [...] TECHNIQUE: Ultrasound OB pelvis transabdominal and transvaginal. Xlcw-zobomxyt-eemdb imaging of the pelvis was performed. COMPARISON: None. FINDINGS: Intrauterine gestation: Single. heart activity (bpm): 127. [place]-rump length: 1.0 cm. Estimated ultrasound age: 7 [...] VARICELLA-ZOSTER V AB, IGG (05/21/2024 2:50 PM ENTRY CLERK) Pathologist [facility] VARICELLA ZOSTER VIRUS ANTIBODY (IGG) 2.82 S/CO [facility] Comment: Signal to Cut-off S/CO [...] BLOOD SPECIMEN / Unknown 05/21/2024 2:50 PM ENTRY CLERK 05/22/2024 3:24 AM ENTRY CLERK Narrative [facility] - 05/25/2024 8:16 AM ENTRY CLERK FASTING: UNKNOWN Lou Bobby DO LABORATORY Final Resu lt [facility] [address] [place] [address], [facility] [address] [place] [address] * RUBELLA IMMUNE STATUS (05/21/2024 2:50 PM ENTRY CLERK) RUBELLA AB (IGG), IMMUNE STATUS 2.96 Index [facility] Comment: Index Interpretation ----- <0.90 Not consistent with immunity 0.90-0.99 Equivocal > or = 1.00 Consistent with immunity The presence of rubella IgG antibody suggests immunization or past or current infection with rubella virus. Blood BLOOD SPECIMEN / Unknown 05/21/2024 2:50 PM ENTRY CLERK 05/22/2024 3:24 AM ENTRY CLERK Narrative [facility] - 05/25/2024 8:16 AM ENTRY CLERK FASTING: UNKNOWN us Lou Bobby DO SEND OUTS Final Resu lt [employer] [facility] [address] [place] [phone], [facility] [address] [place] [phone] * HBSAG (HBS) (05/21/2024 2:50 PM ENTRY CLERK) HEPATITIS B SURFACE ANTIGEN NON-REACTI VE NON-REACTI VE [facility] Comment: For additional information, please refer to http://education.[employer].Intentiva/faq/YSQ834 (This link is being provided for informational/ educational purposes only.) Blood BLOOD SPECIMEN / Unknown 05/21/2024 2:50 PM ENTRY CLERK 05/22/2024 3:24 AM ENTRY CLERK Narrative [facility] - 05/25/2024 8:16 AM ENTRY CLERK FASTING: UNKNOWN us Lou Yesi Kaun DO SEND OUTS Final Resu lt Performing Organization Address [facility]UST de Phone Number [employer] [facility] [address] [place] [address], [facility] [address] [place] [address] * ANTI HCV (05/21/2024 2:50 PM ENTRY CLERK) HEPATITIS C ANTIBODY NON-REACTI VE NON-REACT TANIKA [facility] Comment: HCV antibody was non-reactive. There is no laboratory evidence of HCV infection. In most cases, no further action is required. However, if recent HCV exposure is suspected, a test for HCV RNA (test code 60436) is suggested. For additional information please refer to http://education.Chrends/faq/IFC84z2 (This link is being provided for informational/ educational purposes only.) Blood BLOOD SPECIMEN / Unknown 05/21/2024 2:50 PM ENTRY CLERK 05/22/2024 3:24 AM ENTRY CLERK Narrative [facility] - 05/25/2024 8:16 AM ENTRY CLERK FASTING: UNKNOWN Lou Bobby DO SEND OUTS Final Resu lt Performing Organization Address [facility] de Phone Number [employer] [facility] [address] [place] [address], [facility] [address] [place] [address] * (ABNORMAL) CBC W PLT NO DIFF (05/21/2024 2:50 PM ENTRY CLERK) WHITE BLOOD CELL COUNT 12.9(H) 3.8 - [...] BLOOD SPECIMEN / Unknown 05/21/2024 2:50 PM ENTRY CLERK 05/22/2024 3:24 AM ENTRY CLERK Narrative [facility] - 05/25/2024 8:16 AM ENTRY CLERK FASTING: UNKNOWN Lou Bobby DO HEMATOLOGY Final Resu lt [employer] [facility] [address] [place] [address], [facility] [address] [place] [address] * ANTI HIV 1/2 (05/21/2024 2:50 PM ENTRY CLERK) HIV AG/AB, 4TH GEN NON-REACT TANIKA NON-REACT TANIKA [facility] Comment: HIV-1 antigen and HIV-1/HIV-2 antibodies were [...] purpose. For additional information please refer to http://education.[facility].com/faq/APC843 (This link is being provided for informational/ educational purposes only.) The performance of this assay has not been clinically validated in patients less than 2 years old. Blood BLOOD SPECIMEN / Unknown 05/21/2024 2:50 PM ENTRY CLERK 05/22/2024 3:24 AM ENTRY CLERK Narrative [facility] - 05/25/2024 8:16 AM ENTRY CLERK FASTING: UNKNOWN Lou Key Kanu DO SEND OUTS Final Resu lt Performing Organization Address [facility]/ZIP Co de Phone Number [facility] [address] [place] [address], [facility] [address] [place] [address] * TREPONEMA PALLIDUM (05/21/2024 2:28 PM ENTRY CLERK) TREPONEMA PALLIDUM Non-Reacti ve Non-Reacti ve 05/21/2024 7:09 PM ENTRY CLERK [facility] TRAL LABORATORY Blood BLOOD SPECIMEN / Unknown [facility] / Unknown 05/21/2024 2:28 PM ENTRY CLERK 05/21/2024 2:28 PM ENTRY CLERK Lou Bobby DO SEND OUTS Final Resu lt Performing Organization Address City/[facility]/ZIP Co de Phone Number [facility] [address] [place] [address], [place] * FUNERAL PRE NEED CONSULTANT PROBE - GC CHLAMYDIA DNA PCR [[id number]] (05/21/2024 2:28 PM ENTRY CLERK) CHLAMYDIA PROBE Negative 11:42 PM ENTRY CLERK [facility] TRAL LABORATORY N GONORRHOEAE PROBE Negative 05/21/2024 11:42 PM ENTRY CLERK [facility] TRAL LABORATORY Other URINE SPECIMEN / Unknown Non-Blood / Unknown 05/21/2024 2:28 PM ENTRY CLERK 05/21/2024 2:28 PM ENTRY CLERK [facility] MI[facility] Final Resu lt [facility] [address] [place] [address], [place] * TYPE AND SCREEN (05/21/2024 2:28 PM ENTRY CLERK) ABORH A, See Weak D 05/21/2024 8:27 PM ENTRY CLERK [facility] [employer] [facility] LAB BLOOD BANK ANTIBODY SCREEN Negative Negative 05/21/2024 8:27 PM ENTRY CLERK [facility] LAB BLOOD BANK SPECIMEN EXPIRATION DATE/TIME 05/24/24 23:59 05/21/2024 8:27 PM ENTRY CLERK [facility] LAB BLOOD BANK Blood BLOOD SPECIMEN / Unknown [facility] / Unknown 05/21/2024 2:28 PM ENTRY CLERK 05/21/2024 2:28 PM ENTRY CLERK [facility] B[facility] Final Resu lt Performing Organization Address City/[facility]/ZIP Co de Phone Number [facility] [employer] [facility] LAB BLOOD BANK [address] [place] [address], [place] [phone] * URINE CULTURE (05/21/2024 2:28 PM ENTRY CLERK) Pathologist [facility] CULTURE <10,000 CFU/mL multiple organisms 05/22/2024 4:55 PM ENTRY CLERK [facility] TRAL LABORATORY Urine URINE SPECIMEN / Unknown Non-Blood / Unknown 05/21/2024 2:28 PM ENTRY CLERK 05/21/2024 2:28 PM ENTRY CLERK [facility] MICROBIOLOGY Final Resu lt [facility] [address] [place] [address], [place] * WEAK D (DU) LAB USE ONLY (05/21/2024 2:28 PM ENTRY CLERK) WEAK D Positive 05/21/2024 8:29 PM ENTRY CLERK [facility] LAB BLOOD BANK Blood BLOOD SPECIMEN / Unknown [facility] / Unknown 05/21/2024 2:28 PM ENTRY CLERK 05/21/2024 2:28 PM ENTRY CLERK us Lou Bobby DO BLOOD BANK Final Resu lt [facility] BLOOD BANK [address] [place] [address], [place] [phone] * URINALYSIS W REFLEX MICROSCOPIC IF POSITIVE [33194.2] (05/21/2024 2:28 PM ENTRY CLERK) COLOR Yellow Yellow Color 05/21/2024 6:45 PM ENTRY CLERK [facility] TRAL LABORATORY CLARITY Clear Clear Clarity 05/21/2024 6:45 PM ENTRY CLERK [facility] LABORATORY SPECIFIC GRAVITY,URINE 1.015 1.010, 1.015, 1.020, 1.025 05/21/2024 6:45 PM ENTRY CLERK [facility] TRAL LABORATORY PH,URINE 6.5 6.0, 7.0, 8.0, 5.5, 6.5, 7.5, 8.5 05/21/2024 6:45 PM ENTRY CLERK [facility] TRAL LABORATORY UROBILINOGEN, QUALITATIVE Normal Normal EU/dl 05/21/2024 6:45 PM ENTRY CLERK [facility] TRAL LABORATORY PROTEIN, URINE Negative Negative mg/dL 05/21/2024 6:45 PM ENTRY CLERK [facility] TRAL LABORATORY GLUCOSE, URINE Negative Negative mg/dL 05/21/2024 6:45 PM ENTRY CLERK [facility] TRAL LABORATORY KETONES,URINE Negative Negative mg/dL 05/21/2024 6:45 PM ENTRY CLERK [facility] TRAL LABORATORY BILIRUBIN,URI NE Negative Negative 05/21/2024 6:45 PM ENTRY CLERK [facility] OCCULT BLOOD,URINE Negative Negative 05/21/2024 6:45 PM ENTRY CLERK [facility] TRAL LABORATORY NITRITE Negative Negative 05/21/2024 6:45 PM ENTRY CLERK [facility] LEUKOCYTE ESTERASE Negative Negative 05/21/2024 6:45 PM ENTRY CLERK [facility] TRAL LABORATORY Urine URINE SPECIMEN / Unknown Non-Blood / Unknown 05/21/2024 2:28 PM ENTRY CLERK 05/21/2024 2:28 PM ENTRY CLERK us Lou Bobby DO URINE Final Resu lt [facility] LABORATORY-CENTRAL LABORATORY [address] [place] [address], [place] from Last 3 Months Insurance [facility] [employer] Care Teams Solar Maintenance Technician Relationship Specialty Start Date End Date Pcp, No . PCP - General 01/12/21
--- OUTSIDE RECORDS SUMMARY | 2024-07-20 16:34 | XMS_ITS | Encounter Summary ---
Author Organization [facility] Address [address] [place] [address]. [place] [address] Care Team Providers Care Van Helper Name Role Phone Salina Doherty MD Unavailable [phone] Carrillo Ware APRN RAFTER CUTTING MACHINE OPERATOR Unavailable [phone] SolitarioAngelica golden NP Unavailable [phone] Nelson Arroyo PA-C Unavailable Nelson Arroyo PA-C Primary Care Provider Chinyere Barbour Unavailable Unavailable Nelson Arroyo PA-C Unavailable [phone] Pietro Wills MD Unavailable [phone] Tank Bucio MD Unavailable Reason for Visit * Reason Comments Medication Refill Encounter Details Date Type Department Care Team (Late st Contact Info) Description 02/07/[address], [address] [place] [address] Concepción Gonzalez APRN RAFTER CUTTING MACHINE OPERATOR [address] [place] [address] Medication Refill Social History Tobacco [...] PM CDT 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:44 AM NON LICENSED NUCLEAR EQUIPMENT OPERATOR Gender Identity Female 10/03/2020 8:33 PM CDT Sexual Orientation Straight 07/01/2018 3: 40 PM NON LICENSED NUCLEAR EQUIPMENT OPERATOR documented as of this encounter Plan of Treatment Not on file documented as of this encounter Visit Diagnoses Diagnosis Persistent insomnia Persistent disorder of initiating or maintaining sleep documented in this encounter Additional Health Concerns Assessment Noted Time PHQ-9 Depression Total Score: 7 09/29/19 20 7:04 AM CDT documented as of this encounter Care Teams Van Helper Relationship Specialty Start Date End Date Nelson Arroyo PA-C [address] [place] [address] PCP - General Physician Infection Control Coordinator - Medical 08/06/18 Salina Doherty MD Internal Medicine 12/01/14 Carrillo Wrae APRN RAFTER CUTTING MACHINE OPERATOR [address] [place] [address] Nurse Practitioner Nurse Practitioner 12/16/14 Angelica Jerez NP [place] [address] [place] [address] Nurse Practitioner Nurse Practitioner - Family 07/12/16 Nelson Arroyo PA-C [address] [place] [address] Assigned PCP 07/05/18 07/29/20 Chinyere Barbour Personal Advocate & Liaison (PAL) 01/31/20 04/26/20 Nelson Arroyo PA-C [address] [place] [address] Assigned PCP 07/30/20 Pietro Wills MD [address] [place] [address] Assigned Heart and Vascular Provider 12/14/22 06/26/24 Tank Bucio MD [address] [facility] [address] [place] [address] Physician pie filler 12/01/23 documented as of this encounter
--- OUTSIDE RECORDS SUMMARY | 2024-07-20 16:34 | XMS_ITS | Encounter Summary ---
Author Organization [facility] Address [address] [place] [address]. [place] [address] Care Team Providers Care District Loss Prevention Manager Name Role Phone Salina Doherty MD Unavailable Carrillo Ware APRN COW TESTER Unavailable SolitarioAngelica golden NP Unavailable [phone] Nelson Arroyo PA-C Primary Care Provider [phone] Nelson Arroyo PA-C Unavailable Pietro Wills MD Unavailable [phone] Tank Bucio MD Unavailable [phone] Encounter Details Date Type Department Care Team (Late st Contact Info) Description 06/11/2024 MyC Medical Advice [facility] [address] [place] [address] Nelson Arroyo PA-C [address] [place] [address] Social History Tobacco Use Types [...] re latives? Once a week 11/24/2023 Attends Pent[employer] Services Not on file 11/23 Active Member of Clubs or Organizations Not on f ile 11/24/2023 Attends Club or Organization Meetings Not on asia e 11/24/2023 Marital Status Not on file 11/24/2023 PHQ-2 Answer Date Recorded PHQ-2 Score 0 06/23/2024 [facility]ational Stress Questionnaire Answer Date [...] in an abandoned building, in an overnight long term, or couch-surfing.) Yes 11/24/2023 Are you worried [...] PM CDT 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:44 AM VISUAL DESIGNER Gender Identity Female 10/03/2020 8:33 PM CDT Sexual Orientation Straight 07/01/2018 3: 40 PM VISUAL DESIGNER documented as of this encounter Miscellaneous Notes * Telephone Encounter - Kay Zambrano RN - 06/14/2024 12:53 PM VISUAL DESIGNER Advised via [email or web address]. AL DESIGNER * Telephone Encounter - Nelson Arroyo PA-C - 06/14/2024 12:33 PM VISUAL DESIGNER Sharon- I would defer back to her OB for those questions as they should be managing all of her meds. She has several meds that seem like they may need attention and management during a . In general when treating hypertension in metropro[place] is not used and other agents are preferred. Nelson AL DESIGNER AL DESIGNER * Telephone Encounter - Kay Gomez MD - 06/11/2024 3:21 PM CST Ok to wait for PCP AL DESIGNER * Telephone Encounter - Fidelina Fiore RN - 06/11/2024 3:09 PM CST Routing to POD. Is this ok to wait until PCP returns Friday to address? Fidelina Fiore, RN on 06/11/2024 at 3:09 PM AL DESIGNER documented in this encounter Plan of Treatment Not on file documented as of this encounter Visit Diagnoses Not on filedocumented in this encounter Additional Health Concerns Assessment Noted Time PHQ-9 Depression Total Score: 7 11/23/19 24 1:47 PM CDT documented as of this encounter Care Teams District Loss Prevention Manager Relationship Specialty Start Date End Date Nelson Arroyo PA-C [address] [place] [address] PCP - General Physician Space Studies Faculty Member - Medical 08/06/18 Salina Doherty MD Internal Medicine 12/01/14 Carrillo Ware APRN COW TESTER [address] [place] [address] 539435 Nurse Practitioner Nurse Practitioner 12/16/14 Angelica Jerez NP [facility] [address] [place], [place] [address] Nurse Practitioner Nurse Practitioner - Family 07/12/16 Nelson Arroyo PA-C [address] [place] [address] Assigned PCP 07/30/20 Pietro Wills MD [address] [place] [address] Assigned Heart and Vascular Provider 12/14/22 06/26/24 Tank Bucio MD [address] [facility], [address] [address] Physician ingot car operator 12/01/23 documented as of this encounter
--- OUTSIDE RECORDS SUMMARY | 2024-07-20 16:34 | XMS_ITS | Encounter Summary ---
Author Organization [facility] Address [address] [place] [address]. [place] [address] Care Team Providers Care High School Hvac R Instructor Name Role Phone Salina Doherty MD Unavailable [phone] Carrillo Ware APRN STAMP MACHINE SERVICER Unavailable SolitarioAngelica golden NP Unavailable [phone] Nelson Arroyo PA-C Unavailable [phone] Nelson Arroyo PA-C Primary Care Provider Chinyere Barbour Unavailable Unavailable Nelson Arroyo PA-C Unavailable Pietro Wills MD Unavailable [phone] Tank Bucio MD Unavailable [phone] Reason for Visit * Reason Onset Date Comments Vaginal Problem 02/26/2020 Encounter Details Date Type Department Care Team (Late st Contact Info) Description 02/26/2020 MyC Medical Advice [facility] [address] [facility], [address] [place] [address] Nelson Arroyo PA-C [address] [place] [address] Vaginal Problem Social History Tobacco [...] PM CDT 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:44 AM PNEUMATIC TUBE OPERATOR Gender Identity Female 10/03/2020 8:33 PM CDT Sexual Orientation Straight 07/01/2018 3: 40 PM PNEUMATIC TUBE OPERATOR documented as of this encounter Miscellaneous Notes * Telephone Encounter - Madue Singh RN - 02/28/2020 12:53 PM CDT [employer] message sent to patient. Maude Singh RN [...] documented as of this encounter Care Teams High School Hvac R Instructor Relationship Specialty Start Date End Date Nelson Arroyo PA-C [address] [place] [address] PCP - General Physician Rpg Programmer - Medical 08/06/18 Salina Doherty MD Internal Medicine 12/01/14 Carrillo Ware APRN STAMP MACHINE SERVICER [address] [place] [address] Nurse Practitioner Nurse Practitioner 12/16/14 Angelica Jerez NP [facility] [address] [place] [address] Nurse Practitioner Nurse Practitioner - Family 07/12/16 Nelson Arroyo PA-C [address] [address] Assigned PCP 07/05/18 07/29/20 Chinyere Barbour Personal Advocate & Liaison (PAL) 01/31/20 04/26/20 Nelson Arroyo PA-C [address] [address] Assigned PCP 07/30/20 Pietro Wills MD [address] [place] [address] Assigned Heart and Vascular Provider 12/14/22 06/26/24 Tank Bucio MD [address], [facility] [address] [place] [address] Physician tannery worker 12/01/23 documented as of this encounter
--- OUTSIDE RECORDS SUMMARY | 2024-07-20 16:34 | XMS_ITS | Encounter Summary ---
Author Organization [facility] Address [address] [place] [address]. [place] [address] Care Team Providers Care Curriculum Development Specialist Name Role Phone Salina Doherty MD Unavailable [phone] Carrillo Ware APRN COGENERATION TECHNICIAN Unavailable [phone] SolitarioAngelica golden NP Unavailable [phone] Nelson Arroyo PA-C Primary Care Provider Nelson Arroyo PA-C Unavailable Pietro Wills MD Unavailable Tank Bucio MD Unavailable [phone] Encounter Details Date Type Department Care Team (Late st Contact Info) Description 02/20/2023 MyC Medical Advice [facility] [address] [place] [address] Nelson Arroyo PA-C [address] [place] [address] Social History Tobacco Use Types [...] CDT 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:44 AM MACHINE SET UP OPERATOR PAPER GOODS Gender Identity Female 10/03/2020 8:33 PM CDT Sexual Orientation Straight 07/01/2018 3: 40 PM MACHINE SET UP OPERATOR PAPER GOODS documented as of this encounter Plan of Treatment Not on file documented as of this encounter Visit Diagnoses Not on filedocumented in this encounter Additional Health Concerns Assessment Noted Time PHQ-9 Depression Total Score: 6 02/14/20 23 10:10 AM CDT documented as of this encounter Care Teams Curriculum Development Specialist Relationship Specialty Start Date End Date Nelson Arroyo PA-C [address] [place] [address] PCP - General Physician Office Services Clerk - Medical 08/06/18 Salina Doherty MD Internal Medicine 12/01/14 Carrillo Ware APRN COGENERATION TECHNICIAN [address] [place] [address] 318745 Nurse Practitioner Nurse Practitioner 12/16/14 Angelica Jerez NP [address] [address] Nurse Practitioner Nurse Practitioner - Family 07/12/16 Nelson Arroyo PA-C [address] [address] Assigned PCP 07/30/20 Pietro Wills MD [address] [place] [address] Assigned Heart and Vascular Provider 12/14/22 06/26/24 Tank Bucio MD [address] [address] Physician hay stacker 12/01/23 documented as of this encounter
--- OUTSIDE RECORDS SUMMARY | 2024-07-20 16:34 | XMS_ITS | Encounter Summary ---
Author Organization [facility] Address [address] [place] [address]. [place] [address] Care Team Providers Care Deck Molder Name Role Phone Salina Doherty MD Unavailable [phone] Carrillo Ware APRN MATERIAL INSPECTOR Unavailable SolitarioAngelica golden NP Unavailable [phone] Nelson Arroyo PA-C Unavailable Nelson Arroyo PA-C Primary Care Provider Chinyere Barbour Unavailable Unavailable Nelson Arroyo PA-C Unavailable Pietro Wills MD Unavailable [phone] Tank Bucio MD Unavailable Reason for Visit * Reason Onset Date Comments Refill Request 01/18/2020 Encounter Details Date Type Department Care Team (Late st Contact Info) Description 01/18/2020 MyC [facility] [address] [facility], [address] [place] [address] Nelson Arroyo PA-C [address] [place] [address] Refill Request Social History Tobacco [...] PM CDT 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:44 AM DOCUMENTATION BILLING CLERK Gender Identity Female 10/03/2020 8:33 PM CDT Sexual Orientation Straight 07/01/2018 3: 40 PM DOCUMENTATION BILLING CLERK documented as of this encounter Miscellaneous Notes * Telephone Encounter - Nnacy Santiago CMA - 01/24/2020 11:50 AM CDT Left message for patient to call back. Nancy Santiago CMA * Telephone Encounter - Blanca Baker - 01/21/2020 10:23 AM CDT Left message for patient to return call Needs appt Blanca Baker/ Market Maker * Telephone Encounter - Jahaira Ya CMA [...] the [facility] refill protocol Susanne Zacarias RN [facility] -- Triage Nurse documented in this encounter Plan of Treatment Not on file documented as of this encounter 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), predominantly inattentive type documented in this encounter Additional Health Concerns Assessment Noted Time PHQ-9 Depression Total Score: 7 09/29/19 20 7:04 AM CDT documented as of this encounter Care Teams Deck Molder Relationship Specialty Start Date End Date Nelson Arroyo PA-C [address] [address] PCP - General Physician Central Supply Supervisor - Medical 08/06/18 Salina Doherty MD Internal Medicine 12/01/14 Carrillo Ware APRN MATERIAL INSPECTOR [address] [place] [address] Nurse Practitioner Nurse Practitioner 12/16/14 Angelica eJrez NP [address] [address] Nurse Practitioner Nurse Practitioner - Family 07/12/16 Nelson Arroyo PA-C [address] [address] Assigned PCP 07/05/18 07/29/20 Chinyere Babrour Personal Advocate & Liaison (PAL) 01/31/20 04/26/20 Nelson Arroyo PA-C [address] [address] Assigned PCP 07/30/20 Pietro Wills MD [address] [place] [address] Assigned Heart and Vascular Provider 12/14/22 06/26/24 Tank Bucio MD [address], [facility] [address] [place] [address] Physician dental intern 12/01/23 documented as of this encounter
--- OUTSIDE RECORDS SUMMARY | 2024-07-20 16:34 | XMS_ITS | Encounter Summary ---
Author Organization [facility] Address [address] [place] [address] Care Team Providers Care Security Incident Response Specialist Name Role Phone Salina Doherty MD Unavailable [phone] Carrillo Ware APRN DESIGN ENGINEER MARINE EQUIPMENT Unavailable SolitarioAngelica golden [employer] Unavailable [phone] Nelson Arroyo PA-C Primary Care Provider Nelson Arroyo PA-C Unavailable [phone] Pietro Wills MD Unavailable [phone] Tank Bucio MD Unavailable [phone] Encounter Details Date Type Department Care Team (Late st Contact Info) Description 06/23/2024 MyC Medical Advice [address] [address] Rianna Spangler Social History Tobacco Use Types Packs/Day Years [...] re latives? Once a week 11/24/2023 Attends [employer] Services Not on file 11/23 Active Member of Clubs or Organizations Not on f ile 11/24/2023 Attends Club or Organization Meetings Not on asia e 11/24/2023 Marital Status Not on file 11/24/2023 PHQ-2 Answer Date Recorded PHQ-2 Score 0 06/23/2024 [facility] Occupat ional Health - Occupational Stress [...] in an abandoned building, in an overnight correction, or couch-surfing.) Yes 11/24/2023 Are you worried [...] PM CDT 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:44 AM KNITTER MECHANIC Gender Identity Female 10/03/2020 8:33 PM CDT Sexual Orientation Straight 07/01/2018 3: 40 PM KNITTER MECHANIC documented as of this encounter Plan of Treatment Not on file documented as of this encounter Visit Diagnoses Not on filedocumented in this encounter Additional Health Concerns Assessment Noted Time PHQ-9 Depression Total Score: 7 06/22/19 25 4:20 PM KNITTER MECHANIC documented as of this encounter Care Teams Security Incident Response Specialist Relationship Specialty Start Date End Date Nelson Arroyo PA-C [address] [place] [address] PCP - General Physician Ichthyology Teacher - Medical 08/06/18 Salina Doherty MD Internal Medicine 12/01/14 Carrillo Ware APRN CNP [address] [place] [address] 445825 Nurse Practitioner Nurse Practitioner 12/16/14 Angelica Jerez NP [address] [address] Nurse Practitioner Nurse Practitioner - Family 07/12/16 Nelson Arroyo PA-C [address] [place] [address] Assigned PCP 07/30/20 Pietro Wills MD [address] [place] [address] Assigned Heart and Vascular Provider 12/14/22 06/26/24 Tank Bucio MD [address] [place] [address] Physician lamp assembler 12/01/23 documented as of this encounter
--- OUTSIDE RECORDS SUMMARY | 2024-07-20 16:34 | XMS_ITS | Encounter Summary ---
Author Organization [facility] Address [address] [place] [address] Care Team Providers Care Toll Test Worker Name Role Phone Salina Doherty MD Unavailable [phone] Carrillo Ware APRN DIRECTOR STUDENT UNION Unavailable Hillary Unger MD Primary Care P rovider ScionhealthAngelica NP Unavailable [phone] Nelson Arroyo PA-C Unavailable [phone] Hillary Unger MD Unavailable Hillary Unger MD Unavailable Hillary Unger MD Unavailable Nelson Arroyo PA-C Unavailable [phone] Nelson Arroyo PA-C Primary Care Provider Chinyere Barbour Unavailable Unavailable Nelson Arroyo PA-C Unavailable [phone] Pietro Wills MD Unavailable [phone] Tank Bucio MD Unavailable [phone] Encounter Details Date Type Department Care Team (Late st Contact Info) Description 10/01/2017 [facility] Medical Advice [facility] Addiction [address] [place] [address] Solitario Angelica Gautam, CORPORATE EXECUTIVE CHEF [address] [place] [address] Social History Tobacco Use Types Packs/Day Years [...] PM CDT 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:44 AM YARN DYER Gender Identity Female 10/03/2020 8:33 PM CDT Sexual Orientation Straight 07/01/2018 3: 40 PM YARN DYER documented as of this encounter Plan of Treatment Not on file documented as of this encounter Visit Diagnoses Not on filedocumented in this encounter Additional Health Concerns Assessment Noted Time PHQ-9 Depression Total Score: 6 08/30/19 18 7:34 AM CDT documented as of this encounter Care Teams Toll Test Worker Relationship Specialty Start Date End Date Hillary Unger MD [address] [place] [address] PCP - General Internal Medicine 08/21/15 08/05/18 Nelson Arroyo PA-C [address] [place] [address] PCP - Assigned PCP 04/12/18 05/02/18 Hillary Unger MD [address] [place] [address] PCP - Assigned PCP 02/01/18 04/11/18 Hillary Unger MD [address] [place] [address] PCP - Assigned PCP 05/03/18 07/07/18 Nelson Arroyo PA-C [address] [place] [address] PCP - General Physician Row Boss - Medical 08/06/18 Salina Doherty MD Internal Medicine 12/01/14 Carrillo Ware APRN DIRECTOR STUDENT UNION [address] [place] [address] Nurse Practitioner Nurse Practitioner 12/16/14 Angelica Jerez CORPORATE EXECUTIVE CHEF [facility] [address] [place], [place] [address] Nurse Practitioner Nurse Practitioner - Family 07/12/16 Hillary Unger MD [address] [place] [address] Assigned PCP 05/03/18 07/18/18 Nelson Arroyo PA-C [address] [place] [address] Assigned PCP 07/05/18 07/29/20 Chinyere Barbour Personal Advocate & Liaison (PAL) 01/31/20 04/26/20 Nelson Arroyo PA-C [address] [place] [address] Assigned PCP 07/30/20 Pietro Wills MD [address] [place] [address] Assigned Heart and Vascular Provider 12/14/22 06/26/24 Tank Bucio MD [address], [facility] [address] [place] [address] Physician clinical project leader 12/01/23 documented as of this encounter
--- OUTSIDE RECORDS SUMMARY | 2024-07-20 16:34 | XMS_ITS | Encounter Summary ---
Author Organization [facility] Address [address] [place] [address]. [place] [address] Care Team Providers Care Clinical Nursing Instructor Name Role Phone Salina Doherty MD Unavailable [phone] Carrillo Ware APRN STATIC BALANCER Unavailable SolitarioAngelica golden NP Unavailable [phone] Nelson Arroyo PA-C Primary Care Provider Nelson Arroyo PA-C Unavailable Pietro Wills MD Unavailable Tank Bucio MD Unavailable Reason for Visit * Reason Comments Medication Refill Encounter Details Date Type Department Care Team (Late st Contact Info) Description 06/29/2023 Refill [facility] [address] [place] [address] [place] [address] [place] [address] Medication Refill Social History Tobacco [...] in an abandoned building, in an overnight fci, or couch-surfing.) Yes 03/31/2023 Are you worried [...] PM CDT 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:44 AM TARGET DEVELOPER Gender Identity Female 10/03/2020 8:33 PM CDT Sexual Orientation Straight 07/01/2018 3: 40 PM TARGET DEVELOPER documented as of this encounter Miscellaneous Notes * Telephone Encounter - Mary Fragoso - 06/30/2023 1:18 PM CST LVM & sent MCM to advise pt to follow up with psych provider for rx. Mary Lorenzana Head Of Science ET DEVELOPER * Telephone Encounter - Nelson Arroyo PA-C - 06/30/2023 11:03 AM TARGET DEVELOPER I think she see's Psych for this. Nelson ET DEVELOPER documented in this encounter Plan of Treatment Not on file documented as of this encounter Visit Diagnoses Diagnosis Generalized anxiety disorder documented in this encounter Additional Health Concerns Assessment Noted Time PHQ-9 Depression Total Score: 8 03/31/20 23 1:09 PM TARGET DEVELOPER documented as of this encounter Care Teams Clinical Nursing Instructor Relationship Specialty Start Date End Date Nelson Arroyo PA-C [address] [place] [address] PCP - General Physician Bartender Manager - Medical 08/06/18 Salina Doherty MD Internal Medicine 12/01/14 Carrillo Ware APRN CNP [address] [place] [id number] Nurse Practitioner Nurse Practitioner 12/16/14 Angelica Jerez NP [place] [address] [address] [place], [place] [address] Nurse Practitioner Nurse Practitioner - Family 07/12/16 Nelson Arroyo PA-C [address] [address] Assigned PCP 07/30/20 Pietro Wills MD [address] [place] 2740[address] Assigned Heart and Vascular Provider 12/14/22 06/26/24 Tank Bucio MD [address], [address] [address] Physician drying equipment operator 12/01/23 documented as of this encounter
--- OUTSIDE RECORDS SUMMARY | 2024-07-20 16:34 | XMS_ITS | Encounter Summary ---
Author Organization [facility] Address [address] [place] [address]. [place] [address] Care Team Providers Care Dairy Bar Manager Name Role Phone Salina Doherty MD Unavailable [phone] Carrillo Ware APRN SEDIMENTATIONIST Unavailable [phone] SolitarioAngelica golden NP Unavailable [phone] Nelson Arroyo PA-C Primary Care Provider Nelson Arroyo PA-C Unavailable [phone] Pietro Wills MD Unavailable Tank Bucio MD Unavailable [phone] Reason for Visit * Reason Comments Recheck Medication Encounter Details Date Type Department Care Team (Late st Contact Info) Description 06/24/2024 1:00 PM LEGAL EXECUTIVE Virtual Visit [facility] [address] [place] [address] Nelson Arroyo PA-C [address] [place] [address] 10 weeks gestation of (Primary Dx); Elevated blood pressure reading without diagnosis of hypertension; Sinus tachycardia Social History Tobacco Use Types Packs/Day Years [...] re latives? Once a week 11/24/2023 Attends Scientology Services Not on file 11/23 Active Member of Clubs or Organizations Not on f ile 11/24/2023 Attends Club or Organization Meetings Not on asia e 11/24/2023 Marital Status Not on file 11/24/2023 PHQ-2 Answer Date Recorded PHQ-2 Score 0 06/23/2024 [facility] - Occupational Stress Questionnaire Answer Date Recorded [...] an overnight care home, or couch-surfing.) Yes 11/24/2023 Are you worried [...] PM CDT 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:44 AM LEGAL EXECUTIVE Gender Identity Female 10/03/2020 8:33 PM CDT Sexual Orientation Straight 07/01/2018 3: 40 PM LEGAL EXECUTIVE documented as of this encounter Progress Notes * Nelson Arroyo PA-C - 06/24/2024 1:00 PM CST Anamaria is a 29 year old who is being evaluated via a billable video visit. How would you like to obtain your AVS? MyChart If the video visit is dropped, the invitation should be resent by: Text to cell phone: [phone] Will anyone else be joining your video visit? No Assessment & Plan 10 weeks gestation of Following with OB in [place] Elevated blood pressure reading without diagnosis of hypertension This has improved with weight loss. Sinus tachycardia Patient is on metoprolol. Would be reasonable to change to labetalol given current . BMI Estimated body mass index is 29.55 kg/m?? as calculated from the following: Height as of 11/24/23: 1.664 m (5' 5.5). Weight as of 11/24/23: 81.8 kg (180 lb 4.8 oz). The longitudinal plan of care for the diagnosis(es)/condition(s) as documented were addressed during this visit. Due to the added complexity in care, I will continue to support Anamaria in the subsequent management and with ongoing continuity of care. Subjective Anamaria is a 29 year old, presenting for the following health issues: Recheck Medication 06/24/2024 12:43 PM Additional Questions Roomed by Vidhi Abdul VF Video Start Time: 12:59 PM Pt would like to discuss switching from metoprolol succinate to different medication per her OB. Question 06/22/2024 4:21 PM LEGAL EXECUTIVE - Filed by Patient I understand that completing this form is intended to provide my doctor and/or care team with helpful information for my upcoming clinic visit. It is not to notify my doctor and/or care team of medical matters requiring urgent attention. If I have an urgent medical matter, I should call 911 or my doctor's office. Acknowledge Please select a reason for your visit: Other What is the reason for your visit today? OB wants me to discuss changing metoprolol How many days per week do you miss taking your medication? 0 HPI Anamaria is currently 14 weeks . Has been on metoprolol for elevated HR for a long time now. Was initially on propranolol. Saw cardiology Did Zio monitoring Sinus tach- no other concerning rhythms Did have some elevated BP readings for a while but with weight loss this improved Her OB is wondering about weaning her off and changing to labetalol. Review of Systems Constitutional, HEENT, cardiovascular, pulmonary, gi and gu systems are negative, except as otherwise noted. Objective Vitals: No vitals were obtained today due to virtual visit. Physical Exam GENERAL: alert and no distress EYES: Eyes grossly normal to inspection. No discharge or erythema, or obvious scleral/conjunctival abnormalities. RESP: No audible wheeze, cough, or visible cyanosis. SKIN: Visible skin clear. No significant rash, abnormal pigmentation or lesions. NEURO: Cranial nerves grossly intact. Mentation and speech appropriate for age. PSYCH: Appropriate affect, tone, and pace of words Video-Visit Details Type of service: Video Visit Video End Time:1:06 PM Originating Location (pt. Location): Home Distant Location (provider location): On-site Platform used for Video Visit: Eliu Signed Electronically by: Nelson Arroyo PA-C Answers submitted by the patient for this visit: Patient Health Questionnaire (G7) (Submitted on 06/24/2024) SHANTELL 7 TOTAL SCORE: 4 L EXECUTIVE documented in this encounter Plan of Treatment Not on file documented as of this encounter Visit Diagnoses Diagnosis 10 weeks gestation of - Primary state, incidental Elevated blood pressure reading without diagnosis of hypertension Sinus tachycardia Other specified cardiac dysrhythmias documented in this encounter Additional Health Concerns Assessment Noted Time PHQ-9 Depression Total Score: 7 06/22/19 25 4:20 PM LEGAL EXECUTIVE documented as of this encounter Care Teams Dairy Bar Manager Relationship Specialty Start Date End Date Nelson Arroyo PA-C [address] [place] [address] PCP - General Physician Manager Hospital - Medical 08/06/18 Salina Doherty MD Internal Medicine 12/01/14 Carrillo Ware APRN SEDIMENTATIONIST [address] [place] [address] 852805 Nurse Practitioner Nurse Practitioner 12/16/14 Angelica Jerez NP [facility] [address] [place], [place] [address] Nurse Practitioner Nurse Practitioner - Family 07/12/16 Nelson Arroyo PA-C [address] [place] [address] Assigned PCP 07/30/20 Pietro Wills MD [address] [place] [address] Assigned Heart and Vascular Provider 12/14/22 06/26/24 Tank Bucio MD [address], [address] [address] Physician cafe aide 12/01/23 documented as of this encounter
--- OUTSIDE RECORDS SUMMARY | 2024-07-20 16:35 | XMS_ITS | Encounter Summary ---
Author Organization [facility] Address [address] [place] [address] Care Team Providers Care Labourers Name Role Phone Salina Doherty MD Unavailable [phone] Carrillo Ware APRN PAINTING MANAGER Unavailable Hillary Unger MD Primary Care P rovider Nelson Arroyo PA-C Primary Care Provider [phone] Hillary Unger MD Primary Care P rovider Angelica Jerez NP Unavailable [phone] Nelson Arroyo PA-C Unavailable [phone] Hillary Unger MD Unavailable Hillary Unger MD Unavailable Hillary Unger MD Unavailable Nelson Arroyo PA-C Unavailable [phone] Nelson Arroyo PA-C Primary Care Provider [phone] Chinyere Barbour Unavailable Unavailable Nelson Arroyo PA-C Unavailable [phone] Pietro Wills MD Unavailable [phone] Tank Bucio MD Unavailable [phone] Reason for Visit * Reason Onset Date Comments MyChart Communication 06/22/2015 Emergency Contraceptive Pill Questions Encounter Details Date Type Department Care Team (Late st Contact Info) Description 06/22/2015 MyC Medical Advice [address], [address] [place] [id number] Nelson Arroyo PA-C [address] [place] [address] MyChart Communication (Emergency Contracep... Social History Tobacco [...] PM CDT 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:44 AM SPRING COILING MACHINE SETTER Gender Identity Female 10/03/2020 8:33 PM CDT Sexual Orientation Straight 07/01/2018 3: 40 PM SPRING COILING MACHINE SETTER documented as of this encounter Miscellaneous Notes * Telephone Encounter - Juana See RN - 06/22/2015 1:07 PM CST Nelson, will you please advise? I had sent the pt information yesterday via [employer] regarding thesesame questions and emergency contraceptive information and it was read. I think she wants your advice. Kesha See, RN, BSN NG COILING MACHINE SETTER documented in this encounter Plan of Treatment Not on file documented as of this encounter Visit Diagnoses Not on filedocumented in this encounter Care Teams Labourers Relationship Specialty Start Date End Date Hillary Unger MD [address] [place] [address] PCP - General Internal Medicine 01/05/15 08/02/15 Nelson Arroyo PA-C [address] [place] [address] PCP - General Physician Student Services Rep - Medical 08/03/15 08/20/15 Hillary Unger MD [address] [place] [address] PCP - General Internal Medicine 08/21/15 08/05/18 Nelson Arroyo PA-C [address] [place] [address] PCP - Assigned PCP 04/12/18 05/02/18 Hillary Unger MD [address] [place] [address] PCP - Assigned PCP 02/01/18 04/11/18 Hillary Unger MD [address] [facility] [place] [address] PCP - Assigned PCP 05/03/18 07/07/18 Nelson Arroyo PA-C [address] [place] [address] PCP - General Physician Student Services Rep - Medical 08/06/18 Salina Doherty MD Internal Medicine 12/01/14 Carrillo Ware APRN PAINTING MANAGER [address] [place] [address] Nurse Practitioner Nurse Practitioner 12/16/14 Angelica Jerez NP [facility] [address] [place] [address] Nurse Practitioner Nurse Practitioner - Family 07/12/16 Hillary Unger MD [address] [place] [address] Assigned PCP 05/03/18 07/18/18 Nelson Arroyo PA-C [address] [place] [address] Assigned PCP 07/05/18 07/29/20 Chinyere Barbour Personal Advocate & Liaison (PAL) 01/31/20 04/26/20 Nelson Arroyo PA-C [address] [place] [address] Assigned PCP 07/30/20 Pietro Wills MD [address] [place] [address] Assigned Heart and Vascular Provider 12/14/22 06/26/24 Tank Bucio MD [address], [facility] [address] [place] [address] Physician personal vehicle advisor 12/01/23 documented as of this encounter
--- OUTSIDE RECORDS SUMMARY | 2024-07-20 16:35 | XMS_ITS | Encounter Summary ---
Author Organization [facility] Address [address] [place] [address] Care Team Providers Care Spring Tacker Name Role Phone Salina Doherty MD Unavailable [phone] Carrillo Ware APRN SPOTTER Unavailable [phone] Hillary Unger MD Primary Care P rovider [facility] HealthAngel[facility] NP Unavailable [phone] Nelson Arroyo PA-C Unavailable [phone] Hillary Unger MD Unavailable Hillary Unger MD Unavailable Hillary Unger MD Unavailable Nelson Arroyo PA-C Unavailable [phone] Nelson Arroyo PA-C Primary Care Provider Chinyere Barbour Unavailable Unavailable Nelson Arroyo PA-C Unavailable [phone] Pietro Wills MD Unavailable [phone] Tank Bucio MD Unavailable [phone] Reason for Visit * Reason Onset Date Comments Refill Request 03/02/2017 Encounter Details Date Type Department Care Team (Late st Contact Info) Description 03/02/2017 [facility] [address] [place] [address] Angelica Jerez HOOK AND EYE MACHINE OPERATOR [address] [place] [address] Refill Request Social History Tobacco Use Types [...] PM CDT 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:44 AM FILENET ADMIN Gender Identity Female 10/03/2020 8:33 PM CDT Sexual Orientation Straight 07/01/2018 3: 40 PM FILENET ADMIN documented as of this encounter Miscellaneous Notes [...] as of this encounter Care Teams Spring Tacker Relationship Specialty Start Date End Date Hillary Unger MD [address] [place] [address] PCP - General Internal Medicine 08/21/15 08/05/18 Nelson Arroyo PA-C [address] [place] [address] PCP - Assigned PCP 04/12/18 05/02/18 Hillary Unger MD [address] [place], [place] [address] PCP - Assigned PCP 02/01/18 04/11/18 Hillary Unger MD [address] [place] [address] PCP - Assigned PCP 05/03/18 07/07/18 Nelson Arrooy PA-C [address] [place] [address] PCP - General Physician [employer] - Medical 08/06/18 Salina Doherty MD Internal Medicine 12/01/14 Carrillo Ware APRN SPOTTER [address] [place] [address]2765 Nurse Practitioner Nurse Practitioner 12/16/14 Angelica Jerez NP [facility] [address] [place], [place] 3[address] Nurse Practitioner Nurse Practitioner - Family 07/12/16 Hillary Unger MD [address] [place] [address] Assigned PCP 05/03/18 07/18/18 Nelson Arroyo [place]-C [address] [place] [address] Assigned PCP 07/05/18 07/29/20 Chinyere Barbour Personal Advocate & Liaison (PAL) 01/31/20 04/26/20 Nelson Arroyo PA-C [address] [place] [address] Assigned PCP 07/30/20 Pietro Wills MD [address] [place] [address] Assigned Heart and Vascular Provider 12/14/22 06/26/24 Tank Bucio MD [address] [facility], [address] [address] Physician library information technician 12/01/23 documented as of this encounter
--- OUTSIDE RECORDS SUMMARY | 2024-07-20 16:35 | XMS_ITS | Encounter Summary ---
Author Organization [facility] Address [address] [place] [address] Care Team Providers Care Workplace Trainer And Assessor Name Role Phone Salina Doherty MD Unavailable [phone] Carrillo Ware APRN PACKAGING TECHNICIAN Unavailable Hillary Unger MD Primary Care P rovider [facility] NP Unavailable [phone] Nelson Arroyo PA-C Unavailable [phone] Hillary Unger MD Unavailable Hillary Unger MD Unavailable Hillary Unger MD Unavailable Nelson Arroyo PA-C Unavailable [phone] Nelson Arroyo PA-C Primary Care Provider Chinyere Barbour Unavailable Unavailable Nelson Arroyo PA-C Unavailable [phone] Pietro Wills MD Unavailable [phone] Tank Bucio MD Unavailable [phone] Reason for Visit * Reason Onset Date Comments Refill Request 08/27/2017 tretinoin (RETIN -A) 0.05 % cream Encounter Details Date Type Department Care Team (Late st Contact Info) Description 08/27/2017 MyC Refill [facility], [address] [place] [address] Nelson Arroyo PA-C [address] [place] [address] Refill Request (tretinoin (RETIN-A) 0.05 %... Social [...] PM CDT 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:44 AM RESIDENTIAL APPLIANCE REPAIR TECHNICIAN Gender Identity Female 10/03/2020 8:33 PM CDT Sexual Orientation Straight 07/01/2018 3: 40 PM RESIDENTIAL APPLIANCE REPAIR TECHNICIAN documented as of this encounter Miscellaneous [...] CDT Return Visit with Angelica Jerez NP [facility] [address] [place] [address] [address] [facility] [address] Sig: Spread a pea size amount [...] RN - 08/27/2017 3:13 PM CDTMessage from [employer]: Original authorizing provider: RO Choudhury would like a refill of the following medications: tretinoin (RETIN-A) 0.05 % cream [Nelson Arroyo PA-C] Preferred pharmacy: [facility] - [address] Comment: documented in this encounter Plan of Treatment Not on file documented as of this encounter Visit Diagnoses Diagnosis Acne, unspecified acne type documented in this encounter Additional Health Concerns Assessment Noted Time PHQ-9 Depression Total Score: 4 04/04/20 17 7:13 AM RESIDENTIAL APPLIANCE REPAIR TECHNICIAN documented as of this encounter Care Teams Workplace Trainer And Assessor Relationship Specialty Start Date End Date Hillary Unger MD [address] [place], [place] [address] PCP - General Internal Medicine 08/21/15 08/05/18 Nelson Arroyo PA-C [address] [place] [address] PCP - Assigned PCP 04/12/18 05/02/18 Hillary Unger MD [address] [place], [place] [address] PCP - Assigned PCP 02/01/18 04/11/18 Hillary Unger MD [address] [place] [address] PCP - Assigned PCP 05/03/18 07/07/18 Nelson Arroyo PA-C [address] [place] [address] PCP - General Physician Manager Primary Care - Medical 08/06/18 Salina Doherty MD Internal Medicine 12/01/14 Carrillo Ware APRN PACKAGING TECHNICIAN [address] [place] [address]3365 Nurse Practitioner Nurse Practitioner 12/16/[address] [facility] [address] [place], [place] 37[address] Nurse Practitioner Nurse Practitioner - Family 07/12/16 Hillary Unger MD [address] [place] [address] Assigned PCP 05/03/18 07/18/18 Nelson Arroyo PA-C [address] [address] Assigned PCP 07/05/18 07/29/20 Chinyere Barbour Personal Advocate & Liaison (PAL) 01/31/20 04/26/20 Nelson Arroyo PA-C [address] [place] [address] Assigned PCP 07/30/20 Pietro Wills MD [address] [place] [address] Assigned Heart and Vascular Provider 12/14/22 06/26/24 Tank Bucio MD [address] [facility] [address] [place] [address] Physician oracle distribution consultant 12/01/23 documented as of this encounter
--- OUTSIDE RECORDS SUMMARY | 2024-07-20 16:35 | XMS_ITS | Encounter Summary ---
Author Organization [facility] Address [address] [place] [address] Care Team Providers Care Turbine Mechanic Name Role Phone Salina Doherty MD Unavailable [phone] Carrillo Ware APRN CLAM BED LABORER Unavailable Hillary Unger MD Primary Care P rovider [facility] NP Unavailable [phone] Nelson Arroyo PA-C Unavailable [phone] Hillary Unger MD Unavailable Hillary Unger MD Unavailable Hillary Unger MD Unavailable Nelson Arroyo PA-C Unavailable [phone] Nelson Arroyo PA-C Primary Care Provider Chinyere Barbour Unavailable Unavailable Nelson Arroyo PA-C Unavailable [phone] Pietro Wills MD Unavailable [phone] Tank Bucio MD Unavailable [phone] Reason for Visit * Reason Onset Date Comments Refill Request 08/26/2017 Retin-A 0.05% cr eam Encounter Details Date Type Department Care Team (Late st Contact Info) Description 08/26/2017 MyC Refill [place] [id number] [facility], [address] [place] [address] Nelson Arroyo PA-C [address] [place] [address] Refill Request (Retin-A 0.05% cream) Social History [...] PM CDT 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:44 AM AVAYA ENGINEER Gender Identity Female 10/03/2020 8:33 PM CDT Sexual Orientation Straight 07/01/2018 3: 40 PM AVAYA ENGINEER documented as of this encounter Miscellaneous Notes [...] CDT Return Visit with Angelica Jerez NP [facility] [address] [place] [address] [address] [facility] [address] Sig: Spread a pea size amount [...] RN - 08/26/2017 5:23 PM CDTMessage from [facility] Networkhospital for special caret: Original authorizing provider: RO Choudhury would like a refill of the following medications: tretinoin (RETIN-A) 0.05 % cream [Nelson Arroyo PA-C] Preferred pharmacy: [facility] - [address] Comment: documented in this encounter Plan of Treatment Not on file documented as of this encounter Visit Diagnoses Diagnosis Acne, unspecified acne type documented in this encounter Additional Health Concerns Assessment Noted Time PHQ-9 Depression Total Score: 4 04/04/20 17 7:13 AM AVAYA ENGINEER documented as of this encounter Care Teams Turbine Mechanic Relationship Specialty Start Date End Date Hillary Unger [place] [address] PCP - General Internal Medicine 08/21/15 08/05/18 Nelson Arroyo PA-C [address] [facility] [address] PCP - Assigned PCP 04/12/18 05/02/18 Hillary Unger MD [address] [place] [address] PCP - Assigned PCP 02/01/18 04/11/18 Hillary Unger MD [address] [place] [address] PCP - Assigned PCP 05/03/18 07/07/18 Nelson Arroyo PA-C [address] [place] 9456[address] PCP - General Physician Middle School Sports Coach - Medical 08/06/18 Salina Doherty MD Internal Medicine 12/01/14 Carrillo Ware APRN CLAM BED LABORER [address] [place] [address] Nurse Practitioner Nurse Practitioner 12/16/14 Angelica Jerez NP [facility] [address] [place] [address] Nurse Practitioner Nurse Practitioner - Family 07/12/16 Hillary Unger MD [address] [place] [address] Assigned PCP 05/03/18 07/18/18 Nelson Arroyo PA-C [address] [place] [address] Assigned PCP 07/05/18 07/29/20 Chinyere Barbour Personal Advocate & Liaison (PAL) 01/31/20 04/26/20 Nelson Arroyo PA-C [address] [place] [address] Assigned PCP 07/30/20 Pietro Wills MD [address] [place] [address] Assigned Heart and Vascular Provider 12/14/22 06/26/24 Tank Bucio MD [address] [facility], [address] [address] Physician tobacco drummer 12/01/23 documented as of this encounter
--- OUTSIDE RECORDS SUMMARY | 2024-07-20 16:35 | XMS_ITS | Encounter Summary ---
Author Organization [facility] Address [address] [place] [address]. [place] [address] Care Team Providers Care J2Ee Architect Name Role Phone Salina Doherty MD Unavailable [phone] Carrillo Ware APRN TIN CONTAINER STRAIGHTENER Unavailable SolitarioAngelica golden NP Unavailable [phone] Nelson Arroyo PA-C Primary Care Provider Nelson Arroyo PA-C Unavailable Pietro Wills MD Unavailable [phone] Tank Bucio MD Unavailable Reason for Visit * Reason Comments Medication Refill Encounter Details Date Type Department Care Team (Late st Contact Info) Description 11/08/2022 Refill [facility] [address] [place] [address] Nelson Arroyo PA-C [address] [place] [address] Medication Refill Social History Tobacco [...] PM CDT 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:44 AM SEW ON OPERATOR Gender Identity Female 10/03/2020 8:33 PM CDT Sexual Orientation Straight 07/01/2018 3: 40 PM SEW ON OPERATOR documented as of this encounter Miscellaneous [...] FMG refill protocol Rae Hernandez RN, BSN [facility] documented in this encounter Plan of Treatment Not on file documented as of this encounter Visit Diagnoses Diagnosis Muscle spasm Spasm of muscle documented in this encounter Additional Health Concerns Assessment Noted Time PHQ-9 Depression Total Score: 6 08/16/19 23 12:42 PM CDT documented as of this encounter Care Teams J2Ee Architect Relationship Specialty Start Date End Date Nleson Arroyo PA-C [address] [place] [address] PCP - General Physician Cpc - Medical 08/06/18 Salina Doherty MD Internal Medicine 12/01/14 Carrillo Ware APRN TIN CONTAINER STRAIGHTENER NPI: [id number] [place] [address] Nurse Practitioner Nurse Practitioner 12/16/14 Angelica Jerez NP [facility] [address] [place] [address] Nurse Practitioner Nurse Practitioner - Family 07/12/16 Nelson Arroyo PA-C [address] [place] [address] Assigned PCP 07/30/20 Pietro Wills MD [address] [place] [address] Assigned Heart and Vascular Provider 12/14/22 06/26/24 Tank Bucio MD [address] [facility] [address] [place] [address] Physician director of manufacturing operations 12/01/23 documented as of this encounter
--- OUTSIDE RECORDS SUMMARY | 2024-07-20 16:35 | XMS_ITS | Encounter Summary ---
Author Organization [place] Address [address] [place] [address] Care Team Providers Care Public Speaking Teacher Name Role Phone Salina Doherty MD Unavailable [phone] Carrillo Ware APRN GROUND CREW LINESMAN Unavailable Hillary Unger MD Primary Care P rovider [facility] Unavailable [phone] Nelson Arroyo PA-C Unavailable Hillary Unger MD Unavailable Hillary Unger MD Unavailable Hillary Unger MD Unavailable Nelson Arroyo PA-C Unavailable [phone] Nelson Arroyo PA-C Primary Care Provider [phone] Chinyere Barbour Unavailable Unavailable Nelson Arroyo PA-C Unavailable [phone] Pietro Wills MD Unavailable [phone] Tank Bucio MD Unavailable [phone] Reason for Visit * Reason Onset Date Comments Refill Request 03/21/2017 Encounter Details Date Type Department Care Team (Late st Contact Info) Description 03/21/2017 [facility] [address] [place] [address] Angelica Jerez, EXECUTIVE TALENT ACQUISITION CONSULTANT [address] [place], [place] [id number] Refill Request Social History Tobacco Use Types [...] CDT 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:44 AM ASSOCIATE ART DIRECTOR Gender Identity Female 10/03/2020 8:33 PM CDT Sexual Orientation Straight 07/01/2018 3: 40 PM ASSOCIATE ART DIRECTOR documented as of this encounter Plan of Treatment Not on file documented as of this encounter Visit Diagnoses Diagnosis SHANTELL (generalized anxiety disorder) Generalized anxiety disorder Persistent insomnia Persistent disorder of initiating or maintaining sleep documented in this encounter Additional Health Concerns Assessment Noted Time PHQ-9 Depression Total Score: 3 12/07/19 17 2:21 PM CDT documented as of this encounter Care Teams Public Speaking Teacher Relationship Specialty Start Date End Date Hillary Unger MD [address] [place] [address] PCP - General Internal Medicine 08/21/15 08/05/18 Nelson Arroyo PA-C [address] [place] [address] PCP - Assigned PCP 04/12/18 05/02/18 Hillary Unger MD [address] [place] [address] PCP - Assigned PCP 02/01/18 04/11/18 Hillary Unger MD [address] [place] [address] PCP - Assigned PCP 05/03/18 07/07/18 Nelson Arroyo PA-C [address], [place] [address] PCP - General Physician Sales Training Representative - Medical 08/06/18 Salina Doherty MD Internal Medicine 12/01/14 Carrillo Ware APRN GROUND CREW LINESMAN [address] [place] [address] Nurse Practitioner Nurse Practitioner 12/16/14 Angelica Jerez NP [facility] [address] [place] [address] Nurse Practitioner Nurse Practitioner - Family 07/12/16 Hillary Unger MD [address] [place] [address] Assigned PCP 05/03/18 07/18/18 Nelson Arroyo PA-C [address] [address] Assigned PCP 07/05/18 07/29/20 Chinyere Barbour Personal Advocate & Liaison (PAL) 01/31/20 04/26/20 Nelson Arroyo PA-C [address] [address] Assigned PCP 07/30/20 Pietro Wills MD [address] [place] [address] Assigned Heart and Vascular Provider 12/14/22 06/26/24 Tank Bucio MD [address] [place], [facility] [address] [place] [address] Physician linux devops engineer 12/01/23 documented as of this encounter
--- OUTSIDE RECORDS SUMMARY | 2024-07-20 16:35 | XMS_ITS | Encounter Summary ---
Author Organization [place] Address [address] [place] [address] Care Team Providers Care Enroller Name Role Phone Salina Doherty MD Unavailable [phone] Carrillo Ware APRN SAND CARRIER Unavailable Hillary Unger MD Primary Care P rovider [facility] NP Unavailable [phone] Nelson Arroyo PA-C Unavailable [phone] Hillary Unger MD Unavailable Hillary Unger MD Unavailable Hillary Unger MD Unavailable Nelson Arroyo PA-C Unavailable [phone] Nelson Arroyo PA-C Primary Care Provider [phone] Chinyere Barbour Unavailable Unavailable Nelson Arroyo PA-C Unavailable [phone] Pietro Wills MD Unavailable [phone] Tank Bucio MD Unavailable [phone] Reason for Visit * Reason Onset Date Comments Refill Request 08/26/2017 Encounter Details Date Type Department Care Team (Late st Contact Info) Description 08/26/[address], [address] [place] [id number] Nelson Arroyo PA-C [address] [place] [address] Refill Request Social History Tobacco Use Types [...] PM CDT 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:44 AM COMPOSITE LAMINATOR Gender Identity Female 10/03/2020 8:33 PM CDT Sexual Orientation Straight 07/01/2018 3: 40 PM COMPOSITE LAMINATOR documented as of this encounter Plan of Treatment Not on file documented as of this encounter Visit Diagnoses Diagnosis Acne, unspecified acne type documented in this encounter Additional Health Concerns Assessment Noted Time PHQ-9 Depression Total Score: 4 04/04/20 17 7:13 AM COMPOSITE LAMINATOR documented as of this encounter Care Teams Enroller Relationship Specialty Start Date End Date Hillary Unegr MD [address] [place] [address] PCP - General Internal Medicine 08/21/15 08/05/18 Nelson Arroyo PA-C [address] [place] [address] PCP - Assigned PCP 04/12/18 05/02/18 Hillary Unger MD [address] [place] [address] PCP - Assigned PCP 02/01/18 04/11/18 Hillary Unger MD [address] [place] [address] PCP - Assigned PCP 05/03/18 07/07/18 Nelson Arroyo PA-C [address] [place] [place] [address] PCP - General Physician Certified Registered Nurse Practitioner - Medical 08/06/18 Salina Doherty MD Internal Medicine 12/01/14 Carrillo Ware APRN SAND CARRIER [address] [place] [address] Nurse Practitioner Nurse Practitioner 12/16/14 Angelica Jerez NP [facility] [address] [place] [address] Nurse Practitioner Nurse Practitioner - Family 07/12/16 Hillary Unger MD [address] [place] [address] Assigned PCP 05/03/18 07/18/18 Nelson Arroyo PA-C [address] [place] [address] Assigned PCP 07/05/18 07/29/20 Chinyere Barbour Personal Advocate & Liaison (PAL) 01/31/20 04/26/20 Nelson Arroyo PA-C [address] [place] [address] Assigned PCP 07/30/20 Pietro Wills MD [address] [place] [address] Assigned Heart and Vascular Provider 12/14/22 06/26/24 Tank Bucio MD [address] [facility], [facility] [address] [place] [address] Physician junior loan processor 12/01/23 documented as of this encounter
--- OUTSIDE RECORDS SUMMARY | 2024-07-20 16:35 | XMS_ITS | Encounter Summary ---
Author Organization [place] Address [address] [place] [address] Care Team Providers Care Social Work Manager Name Role Phone Salina Doherty MD Unavailable [phone] Carrillo Ware APRN EXECUTIVE CHAIRMAN Unavailable Hillary Unger MD Primary Care P rovider Nelson Arroyo PA-C Primary Care Provider +[phone] Hillary Unger MD Primary Care P rovider Angelica Jerez NP Unavailable [phone] Nelson Arroyo PA-C Unavailable [phone] Hillary Unger MD Unavailable Hillary Unger MD Unavailable Hillary Unger MD Unavailable Nelson Arroyo PA-C Unavailable [phone] Nelson Arroyo PA-C Primary Care Provider +[phone]- Chinyere Barbour Unavailable Unavailable Nelson Arroyo PA-C Unavailable [phone] Pietro Wills MD Unavailable [phone] Tank Bucio MD Unavailable + [phone] Reason for Visit * Reason Onset Date Comments Refill Request 07/31/2015 Encounter Details Date Type Department Care Team (Late st Contact Info) Description 07/31/[address] [facility] [address] [place] [address] Hillary Unger MD [address] [place] [address] Refill Request Social History Tobacco Use Types [...] PM CDT 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:44 AM SIDING MECHANIC Gender Identity Female 10/03/2020 8:33 PM CDT Sexual Orientation Straight 07/01/2018 3: 40 PM SIDING MECHANIC documented as of this encounter Miscellaneous [...] MG tablet [Hillary Unger MD] Preferred pharmacy: [address] [address] ROGELIO HERNANDEZ Comment: Medication renewals requested in [...] Total Score: 6 06/28/19 16 8:10 AM SIDING MECHANIC documented as of this encounter Care Teams Social Work Manager Relationship Specialty Start Date End Date Hillary Unger MD [address] [place] [address] PCP - General Internal Medicine 01/05/15 08/02/15 Nelson Arroyo PA-C [address] [place], [place] [address] PCP - General Physician Corn Breeder - Medical 08/03/15 08/20/15 Hillary Unger MD [address] [place] [address] PCP - General Internal Medicine 08/21/15 08/05/18 Nelson Arroyo PA-C [address] [facility] [address] PCP - Assigned PCP 04/12/18 05/02/18 Hillary Unger MD [address] [place] [address] PCP - Assigned PCP 02/01/18 04/11/18 Hillary Unger MD [address] [place] [address] PCP - Assigned PCP 05/03/18 07/07/18 Nelson Arroyo PA-C [address] [place] [address] PCP - General Physician Corn Breeder - Medical 08/06/18 Salina Doherty MD Internal Medicine 12/01/14 Carrillo Ware APRN CNP [address] [place] [address] Nurse Practitioner Nurse Practitioner 12/16/14 Angelica Jerez NP [facility] [address] [place] [address] Nurse Practitioner Nurse Practitioner - Family 07/12/16 Hillary Unger MD [address] [place] [address] Assigned PCP 05/03/18 07/18/18 Nelson Arroyo PA-C [address] [place] [address] Assigned PCP 07/05/18 07/29/20 Chinyere Barbour Personal Advocate & Liaison (PAL) 01/31/20 04/26/20 Nelson Arroyo PA-C [address] [address] [id number] Assigned PCP 07/30/20 Pietro Wills MD [address] [place] [address] Assigned Heart and Vascular Provider 12/14/22 06/26/24 Tank Bucio MD [address] [facility], [facility] [address] [place] [address] Physician ethnology professor 12/01/23 documented as of this encounter
--- OUTSIDE RECORDS SUMMARY | 2024-07-20 16:35 | XMS_ITS | Encounter Summary ---
Author Organization [facility] Address [address] [place] [address] Care Team Providers Care Physician Scientist Name Role Phone Salina Doherty MD Unavailable [phone] Carrillo Ware APRN [facility]ICAL HOSP[facility] SALES Unavailable SolitarioAngelica golden NP Unavailable [phone] Nelson Arroyo PA-C Unavailable [phone] Nelson Arroyo PA-C Primary Care Provider Chinyere Barbour Unavailable Unavailable Nelson Arroyo PA-C Unavailable [phone] Pietro Wills MD Unavailable [phone] Tank Bucio MD Unavailable [phone] Encounter Details Date Type Department Care Team (Late st Contact Info) Description 04/29/2019 MyC Medical Advice [address], [address] [place] [address] Mariella Tamayo Social History Tobacco [...] PM CDT 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:44 AM OPTICAL BRIGHTENER MAKER HELPER Gender Identity Female 10/03/2020 8:33 PM CDT Sexual Orientation Straight 07/01/2018 3: 40 PM OPTICAL BRIGHTENER MAKER HELPER documented as of this encounter Plan of Treatment Not on file documented as of this encounter Visit Diagnoses Not on filedocumented in this encounter Additional Health Concerns Assessment Noted Time PHQ-9 Depression Total Score: 10 019 2:36 PM CDT documented as of this encounter Care Teams Physician Scientist Relationship Specialty Start Date End Date Nelson Arroyo PA-C [address] [address] PCP - General Physician Procedures Tech - Medical 08/06/18 Salina Doherty MD Internal Medicine 12/01/14 Carrillo Ware APRN MEDICAL HOSP[facility] SALES [address] [place] [address] Nurse Practitioner Nurse Practitioner 12/16/14 Angelica Jerez NP [address] [address] Nurse Practitioner Nurse Practitioner - Family 07/12/16 Nelson Arroyo PA-C [address] [address] Assigned PCP 07/05/18 07/29/20 Chinyere Barbour Personal Advocate & Liaison (PAL) 01/31/20 04/26/20 Nelson Arroyo PA-C [address] [address] Assigned PCP 07/30/20 Pietro Wills MD [address] [place] [address] Assigned Heart and Vascular Provider 12/14/22 06/26/24 Tank Bucio MD [address] [facility] [address] [place] [address] Physician materials management clerk 12/01/23 documented as of this encounter
--- OUTSIDE RECORDS SUMMARY | 2024-07-20 16:35 | XMS_ITS | Encounter Summary ---
Author Organization [place] Address [address] [place] [address] Care Team Providers Care Emt Paramedic Name Role Phone Salina Doherty MD Unavailable [phone] Carrillo Ware APRN COPY CHASER Unavailable Hillary Unger MD Primary Care P rovider Nelson Arroyo PA-C Primary Care Provider +[phone]- Hillary Unger MD Primary Care P rovider Angelica Jerez NP Unavailable [phone] Nelson Arroyo PA-C Unavailable [phone] Hillary Unger MD Unavailable Hillary Unger MD Unavailable Hillary Unger MD Unavailable Nelson Arroyo PA-C Unavailable [phone] Nelson Arroyo PA-C Primary Care Provider +1- Chinyere Barbour Unavailable Unavailable Nelson Arroyo PA-C Unavailable [phone] Pietro Wills MD Unavailable [phone] Tank Bucio MD Unavailable + [phone] Reason for Visit * Reason Onset Date Comments Insomnia 05/06/2015 Encounter Details Date Type Department Care Team (Late st Contact Info) Description 05/06/2015 MyC Medical Advice [address], [address] [place] [address] Nelson Arroyo PA-C [address] [place] [address] Insomnia Social History Tobacco Use Types Packs/Day [...] PM CDT 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:44 AM TRAINING CONSULTANT Gender Identity Female 10/03/2020 8:33 PM CDT Sexual Orientation Straight 07/01/2018 3: 40 PM TRAINING CONSULTANT documented as of this encounter Plan of Treatment Not on file documented as of this encounter Visit Diagnoses Not on filedocumented in this encounter Care Teams Emt Paramedic Relationship Specialty Start Date End Date Hillary Unger MD [address] [place] [address] PCP - General Internal Medicine 01/05/15 08/02/15 Nelson Arroyo PA-C [address] [place] [address] PCP - General Physician Call Center Representative - Medical 08/03/15 08/20/15 Hillary Unger MD [address] [place] [address] PCP - General Internal Medicine 08/21/15 08/05/18 Nelson Arroyo [place] [address] [place] [address] PCP - Assigned PCP 04/12/18 05/02/18 Hillary Unger MD [address] [facility] [place] [address] PCP - Assigned PCP 02/01/18 04/11/18 Hillary Unger MD [address] [place], [place] [address] PCP - Assigned PCP 05/03/18 07/07/18 Nelson Arroyo PA-C [address] [place] [address] PCP - General Physician Call Center Representative - Medical 08/06/18 Salina Doherty MD Internal Medicine 12/01/14 Carrillo Ware APRN COPY CHASER [address] [place] [address] 875[address] Nurse Practitioner Nurse Practitioner 12/16/14 Angelica Jerez NP [facility] [address] [place], [place] [address] Nurse Practitioner Nurse Practitioner - Family 07/12/16 Hillary Unger MD [address] [facility] [place] [address] Assigned PCP 05/03/18 07/18/18 Nelson Arroyo PA-C [address] [place] [address] Assigned PCP 07/05/18 07/29/20 Chinyere Barbour Personal Advocate & Liaison (PAL) 01/31/20 04/26/20 Nelson Arroyo PA-C [address] [place] [address] Assigned PCP 07/30/20 Pietro Wills MD [address] [place] [address] Assigned Heart and Vascular Provider 12/14/22 06/26/24 Tank Bucio MD [address] [facility], [address] [address] Physician surgical processor 12/01/23 documented as of this encounter
--- OUTSIDE RECORDS SUMMARY | 2024-07-20 16:35 | XMS_ITS | Encounter Summary ---
Author Organization [place] Address [address] [place] [address]. [place] [address] Care Team Providers Care Household Personal Assistant Name Role Phone Salina Doherty MD Unavailable [phone] Carrillo Ware APRN CLINICAL TRANSFORMATION SPECIALIST Unavailable SolitarioAngelica golden NP Unavailable [phone] Nelson Arroyo PA-C Unavailable Nelson Arroyo PA-C Primary Care Provider Chinyere Barbour Unavailable Unavailable eNlson Arroyo PA-C Unavailable [phone] Pietro Wills MD Unavailable Tank Bucio MD Unavailable Reason for Visit * Reason Onset Date Comments Refill Request 06/16/2019 Seroquel 300mg Encounter Details Date Type Department Care Team (Late st Contact Info) Description 06/16/2019 MyC Refill [facility] [address] [facility], [address] [place] [address] [place] [address] [place] [address] Refill Request (Seroquel 300mg) Social History [...] PM CDT 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:44 AM PERFORMANCE IMPROVEMENT COORDINATOR Gender Identity Female 10/03/2020 8:33 PM CDT Sexual Orientation Straight 07/01/2018 3: 40 PM PERFORMANCE IMPROVEMENT COORDINATOR documented as of this encounter Miscellaneous Notes * Telephone Encounter - Nelson Arroyo PA-C - 06/21/2019 1:41 PM PERFORMANCE IMPROVEMENT COORDINATOR I will fill for one month-- I see she has an appointment. Due for labs. Nelson ORMANCE IMPROVEMENT COORDINATOR * Telephone Encounter - Maude Singh RN [...] 90 days) Jun 30, 2019 3:00 PM PERFORMANCE IMPROVEMENT COORDINATOR MyChart Short with Nelson Arroyo PA-C [facility] [address] [place] [address], [facility] 100 [facility] [address] Requested Prescriptions Pending Prescriptions Disp Refills [...] & Orders section of the refill encounter. ORMANCE IMPROVEMENT COORDINATOR documented in this encounter Plan of Treatment Not on file documented as of this encounter Visit Diagnoses Diagnosis Generalized anxiety disorder Major depressive disorder, recurrent episode, moderate (H) Major depressive disorder, recurrent episode, moderate documented in this encounter Additional Health Concerns Assessment Noted Time PHQ-9 Depression Total Score: 10 019 2:36 PM CDT documented as of this encounter Care Teams Household Personal Assistant Relationship Specialty Start Date End Date Nelson Arroyo PA-C [address] [place] [address] PCP - General Physician Grader Tender - Medical 08/06/18 Salina Doherty MD Internal Medicine 12/01/14 Carrillo Ware APRN CLINICAL TRANSFORMATION SPECIALIST [address] [place] [address] Nurse Practitioner Nurse Practitioner 12/16/14 Angelica Jerez DETHISTLER OPERATOR [facility] [address] [place] [address] Nurse Practitioner Nurse Practitioner - Family 07/12/16 Nelson Arroyo PA-C [address] [place] [address] Assigned PCP 07/05/18 07/29/20 Chinyere Barbour Personal Advocate & Liaison (PAL) 01/31/20 04/26/20 Nelson Arroyo PA-C [address] [place] [address] Assigned PCP 07/30/20 Pietro Wills MD [address] [place] [address] Assigned Heart and Vascular Provider 12/14/22 06/26/24 Tank Bucio MD [address] [place], [address] [address] Physician marine engine machinist 12/01/23 documented as of this encounter
--- OUTSIDE RECORDS SUMMARY | 2024-07-20 16:35 | XMS_ITS | Encounter Summary ---
Author Organization [place] Address [address] [place] [address] Care Team Providers Care Dive Supervisor Name Role Phone Salina Doherty MD Unavailable [phone] Carrillo Ware APRN CLERICAL SPECIALIST Unavailable [phone] Hillary Unger MD Primary Care P rovider Nelson Arroyo PA-C Primary Care Provider +1- Hillary Unger MD Primary Care P rovider Angelica Jerez NP Unavailable [phone] Nelson Arroyo PA-C Unavailable [phone] Hillary Unger MD Unavailable Hillary Unger MD Unavailable Hillary Unger MD Unavailable Nelson Arroyo PA-C Unavailable +[phone] Nelson Arroyo PA-C Primary Care Provider +1- Chinyere Barbour Unavailable Unavailable Nelson Arroyo PA-C Unavailable [phone] Pietro Wills MD Unavailable [phone] Tank Bucio MD Unavailable + [phone] Reason for Visit * Reason Onset Date Comments Refill Request 07/31/2015 Seroquel 25mg Encounter Details Date Type Department Care Team (Late st Contact Info) Description 07/31/2015 MyC Refill [address], [address] [place] [address] Nelson Arroyo PA-C [address] [place] [address] Refill Request (Seroquel 25mg) Social [...] PM CDT 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:44 AM FORESTRY SUPPORT SPECIALIST Gender Identity Female 10/03/2020 8:33 PM CDT Sexual Orientation Straight 07/01/2018 3: 40 PM FORESTRY SUPPORT SPECIALIST documented as of this encounter Miscellaneous Notes * Telephone Encounter - Maude Singh RN - 08/01/2015 10:35 AM CDT Last rx for Seroquel was written 07/11/2015 #30 with 1 refill and sent to pharmacy. Patient should have 1 refill remaining. Maude Singh RN * Telephone Encounter - Maude Singh RN - 08/01/2015 10:29 AM CDTMessage [facility] Original authorizing provider: RO Choudhury would like a refill of the following medications: QUEtiapine (SEROQUEL) 25 MG tablet [Nelson Arroyo PA-C] Preferred pharmacy: [facility] [address] [place] [address] ROG[address] HERNANDEZ Comment: Medication renewals requested in [...] Total Score: 6 06/28/19 16 8:10 AM FORESTRY SUPPORT SPECIALIST documented as of this encounter Care Teams Dive Supervisor Relationship Specialty Start Date End Date Hillary Unger MD [address] [place] [address] PCP - General Internal Medicine 01/05/15 08/02/15 Nelson Arroyo PA-C [address] [place] [address] PCP - General Physician Bog Worker - Medical 08/03/15 08/20/15 Hillary Unger MD [address] [place] [address] PCP - General Internal Medicine 08/21/15 08/05/18 Nelson Arroyo PA-C [address] [address] PCP - Assigned PCP 04/12/18 05/02/18 Hillary Unger MD [address] [place] [address] PCP - Assigned PCP 02/01/18 04/11/18 Hillary Unger MD [address] [place], [place] [address] PCP - Assigned PCP 05/03/18 07/07/18 Nelson Arroyo PA-C [address] [place] [address] PCP - General Physician Bog Worker - Medical 08/06/18 Salina Doherty MD Internal Medicine 12/01/14 Carrillo Ware APRN CLERICAL SPECIALIST [address] [place] [id number] Nurse Practitioner Nurse Practitioner 12/16/14 Angelica Jerez NP [facility] [address] [place], [place] [id number] Nurse Practitioner Nurse Practitioner - Family 07/12/16 Hillary Unger MD [address] [place] [address] Assigned PCP 05/03/18 07/18/18 Nelson Arroyo PA-C [address] [address] Assigned PCP 07/05/18 07/29/20 Chinyere Barbour Personal Advocate & Liaison (PAL) 01/31/20 04/26/20 Nelson Arroyo PA-C [address] [place] [address] Assigned PCP 07/30/20 Pietro Wills MD [address] [place] [address] Assigned Heart and Vascular Provider 12/14/22 06/26/24 Tank Bucio MD [address] [facility] [address] [place] [address] Physician shipyard painter helper 12/01/23 documented as of this encounter
--- OUTSIDE RECORDS SUMMARY | 2024-07-20 16:35 | XMS_ITS | Encounter Summary ---
Author Organization [place] Address [address] [place] [address]. [place] [address] Care Team Providers Care Patient Account Representative Name Role Phone Salina Doherty MD Unavailable [phone] Carrillo Ware APRN MEAT SERVICE TEAM MEMBER Unavailable SolitarioAngelica golden NP Unavailable [phone] Nelson Arroyo PA-C Unavailable Nelson Arroyo PA-C Primary Care Provider [phone] Chinyere Barbour Unavailable Unavailable Nelson Arroyo PA-C Unavailable [phone] Pietro Wills MD Unavailable [phone] Tank Bucio MD Unavailable Reason for Visit * Reason Onset Date Comments Refill Request 04/25/2019 Zulay Wang in Encounter Details Date Type Department Care Team (Late st Contact Info) Description 04/25/2019 MyC Refill [address], [address] [place] [address] Nelson Arroyo PA-C [address] [place] [address] Refill Request (Rossy Wang) Social [...] PM CDT 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:44 AM AIR BOX TESTER Gender Identity Female 10/03/2020 8:33 PM CDT Sexual Orientation Straight 07/01/2018 3: 40 PM AIR BOX TESTER documented as of this encounter Miscellaneous Notes * Telephone Encounter - Mariella Tamayo - 04/29/2019 10:16 AM CST Sent message. Mariella Tamayo, Nurse Esthetician BOX TESTER * Telephone Encounter - Russel Pak MD - 04/27/2019 7:11 AM AIR BOX TESTER Last PHQ showing significant sx. Pt should be seen for f/u. Please call to schedule. 1m refill provided. BOX TESTER * Telephone Encounter - Maude Singh RN - 04/26/2019 2:55 PM CST Buspar, Wellbutrin Last Written Prescription Date: 12/03/2018 ([facility]) Last Fill Quantity: 90, # refills: [...] because: PHQ-9 > 4. Maude Singh RN BOX TESTER documented in this encounter Plan of Treatment [...] documented as of this encounter Care Teams Patient Account Representative Relationship Specialty Start Date End Date Nelson Arroyo PA-C [address] [address] PCP - General Physician Drophammer Operator - Medical 08/06/18 Salina Doherty MD Internal Medicine 12/01/14 Carrillo Ware APRN MEAT SERVICE TEAM MEMBER [address] [place] [address] [id number] Nurse Practitioner Nurse Practitioner 12/16/14 Angelica Jerez NP [address] [id number] Nurse Practitioner Nurse Practitioner - Family 07/12/16 Nelson Arroyo PA-C [address] [address] Assigned PCP 07/05/18 07/29/20 Chinyere Barbour Personal Advocate & Liaison (PAL) 01/31/20 04/26/20 Nelson Arroyo PA-C [address] [address] Assigned PCP 07/30/20 Pietro Wills MD [address] [address] Assigned Heart and Vascular Provider 12/14/22 06/26/24 Tank Bucio MD [address] [place], [facility] [address] [place] [address] Physician supervisor pipe joints 12/01/23 documented as of this encounter
--- OUTSIDE RECORDS SUMMARY | 2024-07-20 16:35 | XMS_ITS | Encounter Summary ---
Author Organization [facility] Address [address] [place] [address] Care Team Providers Care Material Handler 2Nd Shift Name Role Phone Salina Doherty MD Unavailable Carrillo Ware APRN VEGETABLE PACKER Unavailable SolitarioAngelica golden NP Unavailable [phone] Nelson Arroyo PA-C Primary Care Provider Nelson Arroyo PA-C Unavailable [phone] Pietro Wills MD Unavailable Tank Bucio MD Unavailable [phone] Encounter Details Date Type Department Care Team (Late st Contact Info) Description 10/30/2022 MyC Medical Advice [address] [address] Amanda Unger Social History Tobacco [...] PM CDT 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:44 AM POWER GENERATION TECHNICIAN Gender Identity Female 10/03/2020 8:33 PM CDT Sexual Orientation Straight 07/01/2018 3: 40 PM POWER GENERATION TECHNICIAN documented as of this encounter Plan of Treatment Not on file documented as of this encounter Visit Diagnoses Not on filedocumented in this encounter Additional Health Concerns Assessment Noted Time PHQ-9 Depression Total Score: 6 08/16/19 23 12:42 PM CDT documented as of this encounter Care Teams Material Handler 2Nd Shift Relationship Specialty Start Date End Date Nelson Arroyo PA-C [address] [place] [address] PCP - General Physician Procedures Rn - Medical 08/06/18 Salina Doherty MD Internal Medicine 12/01/14 Carrillo Ware APRN VEGETABLE PACKER [address] [place] [address] 872485 Nurse Practitioner Nurse Practitioner 12/16/14 Angelica Jerez NP [facility] [address] [place], [place] [phone] Nurse Practitioner Nurse Practitioner - Family 07/12/16 Nelson Arroyo PA-C [address] [place] [address] Assigned PCP 07/30/20 Pietro Wills MD [address] [place] 835585 Assigned Heart and Vascular Provider 12/14/22 06/26/24 Tank Bucio MD [address] [id number] Physician eyeglass lens generator 12/01/23 documented as of this encounter
--- OUTSIDE RECORDS SUMMARY | 2024-07-20 16:35 | XMS_ITS | Encounter Summary ---
Author Organization [place] Address [address] [place] [address]. [place] [address] Care Team Providers Care Solar Pool Heating Installer Name Role Phone Salina Doherty MD Unavailable [phone] Carrillo Ware APRN OFFAL ROLLER Unavailable SolitarioAngelica golden NP Unavailable [phone] Nelson Arroyo PA-C Primary Care Provider Nelson Arroyo PA-C Unavailable Pietro Wills MD Unavailable [phone] Tank Bucio MD Unavailable Reason for Visit * Reason Onset Date Comments Refill Request 08/15/2022 Encounter Details Date Type Department Care Team (Late st Contact Info) Description 08/15/2022 MyC Refill [facility] [address] [place] [address] Nelson Arroyo PA-C [address] [place] [address] Refill Request Social History Tobacco [...] CDT 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:44 AM SUPERVISOR HOME RESTORATION SERVICE Gender Identity Female 10/03/2020 8:33 PM CDT Sexual Orientation Straight 07/01/2018 3: 40 PM SUPERVISOR HOME RESTORATION SERVICE COVID-19 Exposure Response Date Recorded In the [...] for review/approval because: Drug not on the [facility] refill protocol Ashely Naylor RN documented in this encounter Plan of Treatment Not on file documented as of this encounter Visit Diagnoses Diagnosis Muscle spasm Spasm of muscle documented in this encounter Additional Health Concerns Assessment Noted Time PHQ-9 Depression Total Score: 6 08/16/19 23 12:42 PM CDT documented as of this encounter Care Teams Solar Pool Heating Installer Relationship Specialty Start Date End Date Nelson Arroyo PA-C [address] [place] [address] PCP - General Physician Radar Scientist - Medical 08/06/18 Salina Doherty MD Internal Medicine 12/01/14 Carrillo Ware APRN OFFAL ROLLER [address] [place] [address] Nurse Practitioner Nurse Practitioner 12/16/14 Angelica Jerez NP [place] [address] [place] [address] Nurse Practitioner Nurse Practitioner - Family 07/12/16 Nelson Arroyo PA-C [address] [place] [address] Assigned PCP 07/30/20 Pietro Wills MD [address] [place] [address] Assigned Heart and Vascular Provider 12/14/22 06/26/24 Tank Bucio MD [address] [facility], [facility] [address] [place] [address] Physician admin asst 12/01/23 documented as of this encounter
--- OUTSIDE RECORDS SUMMARY | 2024-07-20 16:35 | XMS_ITS | Encounter Summary ---
Author Organization [place] Address [address] [place] [address] Care Team Providers Care Animal Geneticist Name Role Phone Salina Doherty MD Unavailable [phone] Carrillo Ware APRN REGISTRY RN Unavailable [phone] Hillary Unger MD Primary Care P rovider [facility] NP Unavailable [phone] Nelson Arroyo PA-C Unavailable [phone] CriHillary Juan MD Unavailable CriHillary Juan MD Unavailable CrinteaHillary Toledo MD Unavailable Nelson Arroyo PA-C Unavailable [phone] Nelson Arroyo PA-C Primary Care Provider [phone] Chinyere Barbour Unavailable Unavailable Nelson Arroyo PA-C Unavailable [phone] Pietro Wills MD Unavailable [phone] Tank Bucio MD Unavailable Encounter Details Date Type Department Care Team (Late st Contact Info) Description 02/27/2017 [facility] [address] [place] [address] Hillary Unger MD [address] [place], [place] [address] Social History Tobacco Use Types Packs/Day Years [...] PM CDT 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:44 AM CORN LAB TECHNICIAN Gender Identity Female 10/03/2020 8:33 PM CDT Sexual Orientation Straight 07/01/2018 3: 40 PM CORN LAB TECHNICIAN documented as of this encounter Plan of Treatment Not on file documented as of this encounter Visit Diagnoses Not on filedocumented in this encounter Additional Health Concerns Assessment Noted Time PHQ-9 Depression Total Score: 3 12/07/19 17 2:21 PM CDT documented as of this encounter Care Teams Animal Geneticist Relationship Specialty Start Date End Date Hillary Unger MD [address] [place] [address] PCP - General Internal Medicine 08/21/15 08/05/18 Nelson Arroyo PA-C [address] [place] [address] PCP - Assigned PCP 04/12/18 05/02/18 Hillary Unger MD [address] [address] PCP - Assigned PCP 02/01/18 04/11/18 Hillary Unger MD [address] [place] [address] PCP - Assigned PCP 05/03/18 07/07/18 Nelson Arroyo PA-C [address] [place] [address] PCP - General Physician Chief Commercial Officer - Medical 08/06/18 Salina Doherty MD Internal Medicine 12/01/14 Carrillo Ware APRN REGISTRY RN [address] [place] [address] Nurse Practitioner Nurse Practitioner 12/16/14 Angelica Jerez CROSS COUNTRY COACH [facility] [address] [place], [place] 533457 Nurse Practitioner Nurse Practitioner - Family 07/12/16 Hillary Unger MD [address] [place] [address] Assigned PCP 05/03/18 07/18/18 Nelson Arroyo PA-C [address] [place] [address] Assigned PCP 07/05/18 07/29/20 Chinyere Barbour Personal Advocate & Liaison (PAL) 01/31/20 04/26/20 Nelson Arroyo PA-C [address] [place] [address] Assigned PCP 07/30/20 Pietro Wills MD [address] [place] [address] Assigned Heart and Vascular Provider 12/14/22 06/26/24 Tank Bucio MD [address] [place], [facility] [address] [place] [address] Physician senior hr manager 12/01/23 documented as of this encounter
--- OUTSIDE RECORDS SUMMARY | 2024-07-20 16:35 | XMS_ITS | Encounter Summary ---
Author Organization [place] Address [address] [place] [address] Care Team Providers Care Graphic Engineer Name Role Phone Salina Doherty MD Unavailable [phone] Carrillo Ware APRN MANDARIN SPEAKING NANNY Unavailable Hillary Unger MD Primary Care P rovider Nelson Arroyo PA-C Primary Care Provider [phone] Hillary Unger MD Primary Care P rovider Angelica Jerez NP Unavailable [phone] Nelson Arroyo PA-C Unavailable [phone] Hillary Unger MD Unavailable Hillary Unger MD Unavailable Hillary Unger MD Unavailable Nelson Arroyo PA-C Unavailable [phone] Nelson Arroyo PA-C Primary Care Provider [phone] Chinyere Barbour Unavailable Unavailable Nelson Arroyo PA-C Unavailable [phone] Pietro Wills MD Unavailable [phone] Tank Bucio MD Unavailable [phone] Reason for Visit * Reason Onset Date Comments Refill Request 02/07/2015 Encounter Details Date Type Department Care Team (Late st Contact Info) Description 02/07/[address] [facility] [address] [place] [address] Hillary Unger MD [address] [place] [address] Refill Request Social History Tobacco Use Types Packs/Day Years Used Date Smoking Tobacco: Every Day Cigarettes 0.5 12.1 Started: 06/05/2012 Smokeless Tobacco: Never Quit: 06/01/2014 Comments:Started 17 y/o Alcohol Use Standard Drinks/Week Comments Yes 0 (1 standard drink = 0.6 oz pur e alcohol) Once week, 2x week Comments No Sex and Gender Information Value Date Recorded Sex Assigned at Female 10/03/2020 8:33 PM CDT 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:44 AM CONTRACT FORESTER Gender Identity Female 10/03/2020 8:33 PM CDT Sexual Orientation Straight 07/01/2018 3: 40 PM CONTRACT FORESTER documented as of this encounter Plan of Treatment Not on file documented as of this encounter Visit Diagnoses Not on filedocumented in this encounter Care Teams Graphic Engineer Relationship Specialty Start Date End Date Hillary Unger MD [address] [place] [address] PCP - General Internal Medicine 01/05/15 08/02/15 Nelson Arroyo PA-C [address] [place] [address] PCP - General Physician Stereo Map Plotter Operator - Medical 08/03/15 08/20/15 Hillary Unger MD [address] [place] [address] PCP - General Internal Medicine 08/21/15 08/05/18 Nelson Arroyo PA-C [address] [place] [address] PCP - Assigned PCP 04/12/18 05/02/18 Hillary Unger MD [address], [place] 9[address]27 PCP - Assigned PCP 02/01/18 04/11/18 Hillary Unger MD [address] [place] [address] PCP - Assigned PCP 05/03/18 07/07/18 Nelson Arroyo PA-C [address] [place] [address] PCP - General Physician Stereo Map Plotter Operator - Medical 08/06/18 Salina Doherty MD Internal Medicine 12/01/14 Carrillo Ware APRN MANDARIN SPEAKING NANNY [address] [place] [address] 950925 Nurse Practitioner Nurse Practitioner 12/16/14 Angelica eJrez NP [facility] [address], [place] 09[address] Nurse Practitioner Nurse Practitioner - Family 07/12/16 Hillary Unger MD [address] [facility] [place] [address] Assigned PCP 05/03/18 07/18/18 Nelson Arroyo PA-C [address] [address] Assigned PCP 07/05/18 07/29/20 Chinyere Barbour Personal Advocate & Liaison (PAL) 01/31/20 04/26/20 Nelson Arroyo PA-C [address] [address] Assigned PCP 07/30/20 Pietro Wills MD [address] [place] [address] Assigned Heart and Vascular Provider 12/14/22 06/26/24 Tank Bucio MD [address], [address] [address] Physician tin worker 12/01/23 documented as of this encounter
--- OUTSIDE RECORDS SUMMARY | 2024-07-20 16:35 | XMS_ITS | Encounter Summary ---
Author Organization [facility] Address [address] [place] [address]. [place] [address] Care Team Providers Care Scout Professional Sports Name Role Phone Salina Doherty MD Unavailable Carrillo Ware APRN ELECTRIC SHIPYARD OPERATOR Unavailable SolitarioAngelica golden NP Unavailable [phone] Nelson Arroyo PA-C Unavailable Nelson Arroyo PA-C Primary Care Provider Chinyere Barbour Unavailable Unavailable Nelson Arroyo PA-C Unavailable Pietro Wills MD Unavailable Tank Bucio MD Unavailable Reason for Visit * Reason Onset Date Comments Refill Request 06/03/2019 Buspar Encounter Details Date Type Department Care Team (Late st Contact Info) Description 06/03/2019 MyC Refill [facility] [address] [facility], [address] [place] [address] [place] [address] [place] [address] Refill Request (Buspar) Social History [...] PM CDT 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:44 AM EPIC BEACON ANALYST Gender Identity Female 10/03/2020 8:33 PM CDT Sexual Orientation Straight 07/01/2018 3: 40 PM EPIC BEACON ANALYST documented as of this encounter Miscellaneous Notes * Telephone Encounter - Maude Singh RN - 06/03/2019 3:33 PM CST Duplicate BEACON ANALYST documented in this encounter Plan of Treatment Not on file documented as of this encounter Visit Diagnoses Diagnosis Generalized anxiety disorder documented in this encounter Additional Health Concerns Assessment Noted Time PHQ-9 Depression Total Score: 10 019 2:36 PM CDT documented as of this encounter Care Teams Scout Professional Sports Relationship Specialty Start Date End Date Nelson Arroyo PA-C [address] [facility] [place] [address] PCP - General Physician Vender - Medical 08/06/18 Salina Doherty MD Internal Medicine 12/01/14 Carrillo Ware APRN ELECTRIC SHIPYARD OPERATOR [address] [place] [address] Nurse Practitioner Nurse Practitioner 12/16/14 Angelica Jerez NP [address] 447[address] Nurse Practitioner Nurse Practitioner - Family 07/12/16 Nelson Arroyo PA-C [address] [place] [address] Assigned PCP 07/05/18 07/29/20 Chinyere Barbour Personal Advocate & Liaison (PAL) 01/31/20 04/26/20 Nelson Arroyo PA-C [address] [address] [place], [address] [address] Assigned PCP 07/30/20 Pietro Wills MD [address] [place] [place] [address] Assigned Heart and Vascular Provider 12/14/22 06/26/24 Tank Bucio MD [address] [facility] 100 [place] [address] Physician foot piece assembler 12/01/23 documented as of this encounter
--- OUTSIDE RECORDS SUMMARY | 2024-07-20 16:35 | XMS_ITS | Encounter Summary ---
Author Organization [place] Address [address] [place] [address] Care Team Providers Care High School Art Teacher Name Role Phone Salina Doherty MD Unavailable [phone] Carrillo Ware APRN RAILWAY SIGNAL ELECTRICIAN Unavailable [phone] Hillary Unger MD Primary Care P rovider [facility] HospitalAngelica NP Unavailable [phone] Nelson Arroyo PA-C Unavailable [phone] Hillary Unger MD Unavailable Hillary Unger MD Unavailable Hillary Unger MD Unavailable Nelson Arroyo PA-C Unavailable [phone] Nelson Arroyo PA-C Primary Care Provider [phone] Chinyere Barbour Unavailable Unavailable Nelson Arroyo PA-C Unavailable [phone] Pietro Wills MD Unavailable [phone] Tank Bucio MD Unavailable [phone] Reason for Referral * Nutrition - Closed Specialty Diagnoses / Procedures Referred By Contandrew t Referred To Contact Diagnoses Overweight Nelson Arroyo PA-C Phone: tel: fax: Referral ID Status Reason Start Date Expiration Date Visits Re quested Visits Authorized [id number] Closed 08/24/2015 08/23/2016 1 1 Question Answer Nutritional instruct Weight Loss - Overweight/Obesity Comments Your provider has referred you to: FMG: [facility] [place] [place] [email or web address] Please be aware that coverage of these [...] Contact Info) Description 08/23/2015 MyC Medical Advice [address], [address] [place] [address] Nelson Arroyo PA-C [address] [place] [address] Nutrition Counseling (Appetite) Social History Tobacco Use [...] PM CDT 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:44 AM KINESEOLOGIST Gender Identity Female 10/03/2020 8:33 PM CDT Sexual Orientation Straight 07/01/2018 3: 40 PM KINESEOLOGIST documented as of this encounter Plan of Treatment Scheduled Referrals Name Type Priority Associated Diagnoses Orde r Schedule NUTRITION REFERRAL Referral Routine Overweight Ordered: 08/24/2015 documented as of this encounter Visit Diagnoses Diagnosis Overweight- Primary documented in this encounter Additional Health Concerns Assessment Noted Time PHQ-9 Depression Total Score: 6 06/28/19 16 8:10 AM KINESEOLOGIST documented as of this encounter Care Teams High School Art Teacher Relationship Specialty Start Date End Date Hillary Unger MD [address] [place] [address] PCP - General Internal Medicine 08/21/15 08/05/18 Nelson Arroyo PA-C [address] [place] [address] PCP - Assigned PCP 04/12/18 05/02/18 Hillary Unger MD [address] [place] [address] PCP - Assigned PCP 02/01/18 04/11/18 Hillary Unger MD [address] [place] [address] PCP - Assigned PCP 05/03/18 07/07/18 Nelson Arroyo PA-C [address] [place] [address] PCP - General Physician Farmworker [employer] - Medical 08/06/18 Salina Doherty MD Internal Medicine 12/01/14 Carrillo Ware APRN CNP [address] [place] [address] Nurse Practitioner Nurse Practitioner 12/16/14 Angelica Jerez FOOT CASTER [facility] [address] [place] [address] Nurse Practitioner Nurse Practitioner - Family 07/12/16 Hillary Unger MD [address] [place] [address] Assigned PCP 05/03/18 07/18/18 Nelson Arroyo PA-C [address] [place] [address] Assigned PCP 07/05/18 07/29/20 Chinyere Barbour Personal Advocate & Liaison (PAL) 01/31/20 04/26/20 Nelson Arroyo [place]-C [address] [place] [address] Assigned PCP 07/30/20 Pietro Wills MD [address] [place] [address] Assigned Heart and Vascular Provider 12/14/22 06/26/24 Tank Bucio MD [address], [facility] 100 [place] [address] Physician school manager 12/01/23 documented as of this encounter
--- OUTSIDE RECORDS SUMMARY | 2024-07-20 16:35 | XMS_ITS | Encounter Summary ---
Author Organization [facility] Address [address] [place] [address] Care Team Providers Care Plumbing Installer Name Role Phone Salina Doherty MD Unavailable [phone] Carrillo Ware APRN PHYSICAL THERAPY AIDES TEACHER Unavailable Hillary Unger MD Primary Care P rovider Nelson Arroyo PA-C Primary Care Provider +[phone]- Hillary Unger MD Primary Care P rovider Angelica Jerez NP Unavailable [phone] Nelson Arroyo PA-C Unavailable [phone] Hillary Unger MD Unavailable Hillary Unger MD Unavailable Hillary Unger MD Unavailable Nelson Arroyo PA-C Unavailable [phone] Nelson Arroyo PA-C Primary Care Provider +1- Chinyere Barbour Unavailable Unavailable Nelson Arroyo PA-C Unavailable [phone] Pietro Wills MD Unavailable [phone] Tank Bucio MD Unavailable + [phone] Reason for Visit * Reason Onset Date Comments Refill Request 06/07/2015 Control Encounter Details Date Type Department Care Team (Late st Contact Info) Description 06/07/2015 MyC Refill [address], [address] [place] [address] Nelson Arroyo PA-C [address] [facility] [place] [address] Refill Request ( Control) Social [...] PM CDT 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:44 AM NIPPLE THREADER Gender Identity Female 10/03/2020 8:33 PM CDT Sexual Orientation Straight 07/01/2018 3: 40 PM NIPPLE THREADER documented as of this encounter Miscellaneous Notes * Telephone Encounter - Maude Singh RN - 06/07/2015 1:12 PM CST Prescription approved per [facility] Refill Protocol. Maude Singh RN LE THREADER * Telephone Encounter - Maude Singh RN - 06/07/2015 1:11 PM CSTMessage from MyChart: Original authorizing provider: RO Choudhury would like a refill of the following medications: levonorgestrel-ethinyl estradiol (FIDEL PALOMO LESSINA) 0.1-20 MG-MCG per tablet [Nelson Arroyo PA-C] Preferred pharmacy: [facility] [address] [place] [address] ROGELIO HERNANDEZ Comment: LE THREADER documented in this encounter Plan of Treatment Not on file documented as of this encounter Visit Diagnoses Diagnosis Encounter for surveillance of contraceptive pills Surveillance of previously prescribed contraceptive pill documented in this encounter Care Teams Plumbing Installer Relationship Specialty Start Date End Date Hillary Unger MD [address] [place] [address] PCP - General Internal Medicine 01/05/15 08/02/15 Nelson Arroyo PA-C [address] [place] [address] PCP - General Physician Import/Export Freight Forwarder - Medical 08/03/15 08/20/15 Hillary Unger MD [address] [place] [address] PCP - General Internal Medicine 08/21/15 08/05/18 Nelson Arroyo PA-C [address] [address] PCP - Assigned PCP 04/12/18 05/02/18 Hillary Unger MD [address] [place] [address] PCP - Assigned PCP 02/01/18 04/11/18 Hillary Unger MD [address] [address] PCP - Assigned PCP 05/03/18 07/07/18 Nelson Arroyo PA-C [address] [address] PCP - General Physician Import/Export Freight Forwarder - Medical 08/06/18 Salina Doherty MD Internal Medicine 12/01/14 Carrillo Ware APRN PHYSICAL THERAPY AIDES TEACHER [address] [place] [id number] Nurse Practitioner Nurse Practitioner 12/16/14 Angelica Jerez NP [facility] [address] [place] [address] Nurse Practitioner Nurse Practitioner - Family 07/12/16 Hillary Unger MD [address] [place], [place] [address] Assigned PCP 05/03/18 07/18/18 Nelson Arroyo [place]-C [address] [place] [address] Assigned PCP 07/05/18 07/29/20 Chinyere Barbour Personal Advocate & Liaison (PAL) 01/31/20 04/26/20 Nelson Arroyo PA-C [address] [place] [address] Assigned PCP 07/30/20 Pietro Wills MD [address] [address] Assigned Heart and Vascular Provider 12/14/22 06/26/24 Tank Bucio MD [address], [address] [address] Physician tailer off 12/01/23 documented as of this encounter
--- OUTSIDE RECORDS SUMMARY | 2024-07-20 16:35 | XMS_ITS | Encounter Summary ---
Author Organization [facility] Address [address] [place] [address] Care Team Providers Care Admissions Representative Name Role Phone Salina Doherty MD Unavailable [phone] Carrillo Ware APRN UPHOLSTERER HELPER Unavailable Hillary Unger MD Primary Care P rovider Nelson Arroyo PA-C Primary Care Provider +[phone]- Hillary Unger MD Primary Care P rovider Angelica Jerez NP Unavailable [phone] Nelson Arroyo PA-C Unavailable [phone] Hillary Unger MD Unavailable Hillary Unger MD Unavailable Hillary Unger MD Unavailable Nelson Arroyo PA-C Unavailable [phone] Nelson Arroyo PA-C Primary Care Provider +1- Chinyere Barbour Unavailable Unavailable Nelson Arroyo PA-C Unavailable [phone] Pietro Wills MD Unavailable [phone] Tank Bucio MD Unavailable + [phone] Reason for Visit * Reason Onset Date Comments MyChart Communication 06/21/2015 Emergency Contraceptive Encounter Details Date Type Department Care Team (Late st Contact Info) Description 06/21/2015 MyC Medical Advice [address], [address] [place] [address] Nelson Arroyo PA-C [address] [place] [address] MyChart Communication (Emergency Contracep... Social [...] PM CDT 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:44 AM STUNT PERSON Gender Identity Female 10/03/2020 8:33 PM CDT Sexual Orientation Straight 07/01/2018 3: 40 PM STUNT PERSON documented as of this encounter Miscellaneous Notes * Telephone Encounter - Juana See RN - 06/21/2015 8:10 AM CST Hi Twyla, There is an over the counter emergency contraceptive pill called Plan B available that you can pick pulling machine operator without a prescription. The sooner you take [...] have any further questions. Kesha Tovar RN T PERSON documented in this encounter Plan of Treatment Not on file documented as of this encounter Visit Diagnoses Not on filedocumented in this encounter Care Teams Admissions Representative Relationship Specialty Start Date End Date CriHillary Juan MD [address] [place] [address] PCP - General Internal Medicine 01/05/15 08/02/15 Nelson Arroyo PA-C [address] [place] [address] PCP - General Physician Traveling Crane Operator - Medical 08/03/15 08/20/15 Hillary Unger MD [address] [place] [address] PCP - General Internal Medicine 08/21/15 08/05/18 Nelson Arroyo PA-C [address] [address] PCP - Assigned PCP 04/12/18 05/02/18 Hillary Unger MD [address] [place] [address] PCP - Assigned PCP 02/01/18 04/11/18 Hillary Unger MD [address] [place] [address] PCP - Assigned PCP 05/03/18 07/07/18 Nelson Arroyo PA-C [address] [address] PCP - General Physician Traveling Crane Operator - Medical 08/06/18 Salina Doherty MD Internal Medicine 12/01/14 Carrillo Ware APRN UPHOLSTERER HELPER [address] [place] [address] 240235 Nurse Practitioner Nurse Practitioner 12/16/14 Angelica Jerez [employer] HISTORY TEACHER [facility] [address] [place], [place] [address] Nurse Practitioner Nurse Practitioner - Family 07/12/16 Hillary Unger MD [address] [place], [place] 007[address] Assigned PCP 05/03/18 07/18/18 Nelson Arroyo PA-C [address] [place] [address] Assigned PCP 07/05/18 07/29/20 Chinyere Barbour Personal Advocate & Liaison (PAL) 01/31/20 04/26/20 Nelson Arroyo [place]-C [address] [place] [address] Assigned PCP 07/30/20 Pietro Wills MD [address] [place] [address] Assigned Heart and Vascular Provider 12/14/22 06/26/24 Tank Bucio MD [address] [facility], [address] [address] Physician dial buffer 12/01/23 documented as of this encounter
--- OUTSIDE RECORDS SUMMARY | 2024-07-20 16:35 | XMS_ITS | Encounter Summary ---
Author Organization [facility] Address [address] [place] [address] Care Team Providers Care Ict Project Manager Name Role Phone Salina Doherty MD Unavailable [phone] Carrillo Ware APRN PIPE STRESS ENGINEER Unavailable Hillary Unger MD Primary Care P rovider [facility] Health[facility] NP Unavailable Nelson Arroyo PA-C Unavailable Hillary Unger MD Unavailable Hillary Unger MD Unavailable Hillary Unger MD Unavailable Nelson Arroyo PA-C Unavailable [phone] Nelson Arroyo PA-C Primary Care Provider [phone] Chinyere Barbour Unavailable Unavailable Nelson Arroyo PA-C Unavailable [phone] Pietro Wills MD Unavailable [phone] Tank Bucio MD Unavailable Reason for Visit * Reason Onset Date Comments Refill Request 10/25/2015 Seroquel 25mg Encounter Details Date Type Department Care Team (Late st Contact Info) Description 10/25/2015 MyC Refill [facility] [address], [address] [place] [id number] Nelson Arroyo PA-C [address] [place], [place] [id number] Refill Request (Seroquel 25mg) Social History Tobacco [...] PM CDT 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:44 AM BEAUTY PARLOR CLEANER Gender Identity Female 10/03/2020 8:33 PM CDT Sexual Orientation Straight 07/01/2018 3: 40 PM BEAUTY PARLOR CLEANER documented as of this encounter Miscellaneous Notes * Telephone Encounter - Maude Singh RN - 10/25/2015 4:20 PM CDT Seroquel 25mg Last Written Prescription Date: 09/26/2015 Last Fill Quantity: 60, # refills: 2 Last Office Visit with [facility] or [facility] prescribing provider: 09/18/2015 GLC 70 08/03/2015 BP [...] 4:19 PM CD[facility]Message [facility] Original authorizing provider: RO Choudhury would like a refill of the following medications: QUEtiapine (SEROQUEL) 25 MG tablet [Nelson Arroyo PA-C] Preferred pharmacy: [address] Comment: Medication renewals requested in this [...] documented as of this encounter Care Teams Ict Project Manager Relationship Specialty Start Date End Date Hillary Unger MD [address] [place] [address] PCP - General Internal Medicine 08/21/15 08/05/18 Nelson Arroyo PA-C [address] [place] [address] PCP - Assigned PCP 04/12/18 05/02/18 Hillary Unger MD [address] [place] [address] PCP - Assigned PCP 02/01/18 04/11/18 Hillary Unger MD [address] [place] [address] PCP - Assigned PCP 05/03/18 07/07/18 Nelson Arroyo PA-C [address] [place] [address] PCP - General Physician Bond Clerk - Medical 08/06/18 Salina Doherty MD Internal Medicine 12/01/14 Carrillo Ware APRN PIPE STRESS ENGINEER [address] [place] [address] Nurse Practitioner Nurse Practitioner 12/16/14 Angelica Jerez NP [facility] [address] [place], [place] 4587[address] Nurse Practitioner Nurse Practitioner - Family 07/12/16 Hillary Unger MD [address] [place] [address] Assigned PCP 05/03/18 07/18/18 Nelson Arroyo PA-C [address] [place] [place] [address] Assigned PCP 07/05/18 07/29/20 Chinyere Barbour Personal Advocate & Liaison (PAL) 01/31/20 04/26/20 Nelson Arroyo PA-C [address] [place] [address] Assigned PCP 07/30/20 Pietro Wills MD [address] [place] [address] Assigned Heart and Vascular Provider 12/14/22 06/26/24 Tank Bucio MD [address], [address] [address] Physician statistical analyst 12/01/23 documented as of this encounter
--- OUTSIDE RECORDS SUMMARY | 2024-07-20 16:35 | XMS_ITS | Encounter Summary ---
Author Organization [facility] Address [address] [place] [address] Care Team Providers Care Ticker Wirer Name Role Phone Salina Doherty MD Unavailable [phone] Carrillo Ware APRN LIGHTING DESIGNER Unavailable Hillary Unger MD Primary Care P rovider [facility] NP Unavailable [phone] Nelson Arroyo PA-C Unavailable [phone] Hillary Unger MD Unavailable Hillary Unger MD Unavailable Hillary Unger MD Unavailable Nelson Arroyo PA-C Unavailable [phone] Nelson Arroyo PA-C Primary Care Provider [phone] Chinyere Barbour Unavailable Unavailable Nelson Arroyo PA-C Unavailable [phone] Pietro Wills MD Unavailable [phone] Tank Bucio MD Unavailable [phone] Encounter Details Date Type Department Care Team (Late st Contact Info) Description 12/12/2015 [facility] Medical Advice [address], [address] [place] [address] Zully Vidal APRN LIGHTING DESIGNER [address] [place] [address] Social History Tobacco Use Types Packs/Day Years [...] PM CDT 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:44 AM SPECIALTY COOK Gender Identity Female 10/03/2020 8:33 PM CDT Sexual Orientation Straight 07/01/2018 3: 40 PM SPECIALTY COOK documented as of this encounter Plan of Treatment Not on file documented as of this encounter Visit Diagnoses Not on filedocumented in this encounter Additional Health Concerns Assessment Noted Time PHQ-9 Depression Total Score: 5 09/19/19 16 7:14 AM CDT documented as of this encounter Care Teams Ticker Wirer Relationship Specialty Start Date End Date Hillary Unger MD [address] [place] [address] PCP - General Internal Medicine 08/21/15 08/05/18 Nelson Arroyo PA-C [address] [place] [address] PCP - Assigned PCP 04/12/18 05/02/18 Hillary Unger MD [address] [place] [address] PCP - Assigned PCP 02/01/18 04/11/18 Hillary Unger MD [address] [place] [address] PCP - Assigned PCP 05/03/18 07/07/18 Nelson Arroyo PA-C [address] [place] [address] PCP - General Physician Promotions Coordinator - Medical 08/06/18 Salina Doherty MD Internal Medicine 12/01/14 Carrillo Ware APRN LIGHTING DESIGNER [address] [place] [address] Nurse Practitioner Nurse Practitioner 12/16/14 Angelica Jerez NP [facility] [address] [place], [place] 7[address] Nurse Practitioner Nurse Practitioner - Family 07/12/16 Hillary Unger MD [address] [place] [address] Assigned PCP 05/03/18 07/18/18 Nelson Arroyo PA-C [address] [place] [address] Assigned PCP 07/05/18 07/29/20 Chinyere Barbour Personal Advocate & Liaison (PAL) 01/31/20 04/26/20 Nelson Arroyo PA-C [address] [place] [address] Assigned PCP 07/30/20 Pietro Wills MD [address] [place] [address] Assigned Heart and Vascular Provider 12/14/22 06/26/24 Tank Bucio MD [address], [facility] [address] [place] [address] Physician gear keeper 12/01/23 documented as of this encounter
--- OUTSIDE RECORDS SUMMARY | 2024-07-20 16:35 | XMS_ITS | Encounter Summary ---
Author Organization [facility] Address [address] [place] [address] Care Team Providers Care Livestock Slaughterer Name Role Phone Salina Doherty MD Unavailable [phone] Carrillo Ware APRN PAD HAND Unavailable Hillary Unger MD Primary Care P rovider Nelson Arroyo PA-C Primary Care Provider +[phone] Hillary Unger MD Primary Care P rovider Angelica Jerez NP Unavailable [phone] Nelson Arroyo PA-C Unavailable [phone] Hillary Unger MD Unavailable Hillary Unger MD Unavailable Hillary Unger MD Unavailable Nelson Arroyo PA-C Unavailable [phone] Nelson Arroyo PA-C Primary Care Provider +[phone]- Chinyere Barbour Unavailable Unavailable Nelson Arroyo PA-C Unavailable [phone] Pietro Wills MD Unavailable [phone] Tank Bucio MD Unavailable + [phone] Reason for Visit * Reason Onset Date Comments Vaginal Problem 02/01/2015 Infection Encounter Details Date Type Department Care Team (Late st Contact Info) Description 02/01/2015 MyC Medical Advice [address], [address] [place] [address] Nelson Arroyo PA-C [address] [address] Vaginal Problem (Infection) Social History Tobacco Use [...] PM CDT 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:44 AM RADIOLOGIST PHYSICIAN Gender Identity Female 10/03/2020 8:33 PM CDT Sexual Orientation Straight 07/01/2018 3: 40 PM RADIOLOGIST PHYSICIAN documented as of this encounter Plan of Treatment Not on file documented as of this encounter Visit Diagnoses Diagnosis Pelvic pain in female- Primary Unspecified symptom associated with female genital organs documented in this encounter Care Teams Livestock Slaughterer Relationship Specialty Start Date End Date Hillary Unger MD [address] [place] [address] PCP - General Internal Medicine 01/05/15 08/02/15 Nelson Arroyo PA-C [address] [place] [address] PCP - General Physician Washer Carcass - Medical 08/03/15 08/20/15 Hillary Unger MD [address] [place] [address] PCP - General Internal Medicine 08/21/15 08/05/18 Nelson Arroyo PA-C [address] [place] [address] PCP - Assigned PCP 04/12/18 05/02/18 Hillary Unger MD [address] [place], [place] 640317 PCP - Assigned PCP 02/01/18 04/11/18 Hillary Unger MD [address] [place] [address] PCP - Assigned PCP 05/03/18 07/07/18 Nelson Arroyo PA-C [address] [place] [address] PCP - General Physician Washer Carcass - Medical 08/06/18 Salina Doherty MD Internal Medicine 12/01/14 Carrillo Ware APRN PAD HAND [address] [place] [place] [address]345 Nurse Practitioner Nurse Practitioner 12/16/14 Angelica Jerez NP [facility] [address] [place], [place] 7639[address] Nurse Practitioner Nurse Practitioner - Family 07/12/16 Hillary Unger MD [address] [place], [place] 242887 Assigned PCP 05/03/18 07/18/18 Nelson Arroyo PA-C [address] [place] [address] Assigned PCP 07/05/18 07/29/20 Chinyere Barbour Personal Advocate & Liaison (PAL) 01/31/20 04/26/20 Nelson Arroyo PA-C [address] [place] [address] Assigned PCP 07/30/20 Pietro Wills MD [address] [place] [address] Assigned Heart and Vascular Provider 12/14/22 06/26/24 Tank Bucio MD [address], [address] [place] [address] Physician gynecology teacher 12/01/23 documented as of this encounter
--- OUTSIDE RECORDS SUMMARY | 2024-07-20 16:35 | XMS_ITS | Encounter Summary ---
Author Organization [facility] Address [address] [place] [address] Care Team Providers Care Sample Finisher Name Role Phone Salina Doherty MD Unavailable Carrillo Ware APRN REGULATOR TESTER Unavailable SolitarioAngelica golden NP Unavailable [phone] Nelson Arroyo PA-C Primary Care Provider Nelson Arroyo PA-C Unavailable [phone] Pietor Wills MD Unavailable Tank Bucio MD Unavailable [phone] Encounter Details Date Type Department Care Team (Late st Contact Info) Description 02/10/2023 [facility] Medical Advice [facility] [address] [place] [address] Sachi Barrera, RN Social History [...] PM CDT 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:44 AM METAL BONDER Gender Identity Female 10/03/2020 8:33 PM CDT Sexual Orientation Straight 07/01/2018 3: 40 PM METAL BONDER documented as of this encounter Plan of Treatment Not on file documented as of this encounter Visit Diagnoses Not on filedocumented in this encounter Additional Health Concerns Assessment Noted Time PHQ-9 Depression Total Score: 6 08/16/19 23 12:42 PM CDT documented as of this encounter Care Teams Sample Finisher Relationship Specialty Start Date End Date Nelson Arroyo PA-C [address] [place] [address] PCP - General Physician Aircraft Seat Upholsterer - Medical 08/06/18 Salina Doherty MD Internal Medicine 12/01/14 Carrillo Ware APRN REGULATOR TESTER [address] [place] [address] 848135 Nurse Practitioner Nurse Practitioner 12/16/14 Angelica Jerez NP [address] [address] Nurse Practitioner Nurse Practitioner - Family 07/12/16 Nelson Arroyo PA-C [address] [address] Assigned PCP 07/30/20 Pietro Wills MD [address] [address] Assigned Heart and Vascular Provider 12/14/22 06/26/24 Tank Bucio MD [address], [facility] [address] [place] [address] Physician formation testing operator 12/01/23 documented as of this encounter
--- OUTSIDE RECORDS SUMMARY | 2024-07-20 16:36 | XMS_ITS | Encounter Summary ---
Author Organization [facility] Address [address] [place] [address]. [place] [address] Care Team Providers Care Sign Erector And Repairer Name Role Phone Salina Doherty MD Unavailable [phone] Carrillo Ware APRN TREE FELLER OPERATOR Unavailable SolitarioAngelica golden NP Unavailable [phone] Nelson Arroyo PA-C Unavailable Nelson Arroyo PA-C Primary Care Provider [phone] Chinyere Barbour Unavailable Unavailable Nelson Arroyo PA-C Unavailable Pietro Wills MD Unavailable Tank Bucio MD Unavailable [phone] Encounter Details Date Type Department Care Team (Late st Contact Info) Description 03/31/2019 MyC Medical Advice [address], [address] [place] [address] Nelson Arroyo PA-C [address] [place] [address] Social History Tobacco Use Types [...] PM CDT Legal Sex Female 3:44 AM INDUSTRIAL LOCOMOTIVE OPERATOR Gender Identity Female 10/03/2020 8:33 PM CDT Sexual Orientation Straight 07/01/2018 3: 40 PM INDUSTRIAL LOCOMOTIVE OPERATOR documented as of this encounter Plan of Treatment Not on file documented as of this encounter Visit Diagnoses Not on filedocumented in this encounter Additional Health Concerns Assessment Noted Time PHQ-9 Depression Total Score: 10 019 2:36 PM CDT documented as of this encounter Care Teams Sign Erector And Repairer Relationship Specialty Start Date End Date Nelson Arroyo PA-C [address] [place] [address] PCP - General Physician Pain Management Physician - Medical 08/06/18 Salina Doherty MD Internal Medicine 12/01/14 Carrillo Ware APRN TREE FELLER OPERATOR [address] [place] [address] 301765 Nurse Practitioner Nurse Practitioner 12/16/14 Angelica Jerez NP [address] 172277 Nurse Practitioner Nurse Practitioner - Family 07/12/16 Nelson Arroyo PA-C [address] [place] [address] Assigned PCP 07/05/18 07/29/20 Chinyere Barbour Personal Advocate & Liaison (PAL) 01/31/20 04/26/20 Nelson Arroyo PA-C [address] [place] [address] Assigned PCP 07/30/20 Pietro Wills MD [address] [place] [address] Assigned Heart and Vascular Provider 12/14/22 06/26/24 Tank Bucio MD [address] [facility], [address] [address] Physician fruit inspector 12/01/23 documented as of this encounter
--- OUTSIDE RECORDS SUMMARY | 2024-07-20 16:36 | XMS_ITS | Encounter Summary ---
Author Organization [facility] Address [address] [place] [address]. [place] [address] Care Team Providers Care Commercial Tire Service Technician Name Role Phone Salina Doherty MD Unavailable [phone] Carrillo Ware APRN COMMERCIAL ATTACHE Unavailable SolitarioAngelica golden NP Unavailable [phone] Nelson Arroyo PA-C Unavailable Nelson Arroyo PA-C Primary Care Provider Chinyere Barbour Unavailable Unavailable Nelson Arroyo PA-C Unavailable Pietro Wills MD Unavailable Tank Bucio MD Unavailable [phone] Reason for Visit * Reason Onset Date Comments Refill Request 06/16/2019 Trazodone Encounter Details Date Type Department Care Team (Late st Contact Info) Description 06/16/[address] [facility] [address] [facility], [address] [place] [address] Nelson Arroyo PA-C [address] [place] [address] Refill Request (Trazodone ) Social [...] PM CDT Legal Sex Female 3:44 AM GARDENING SUPERVISOR Gender Identity Female 10/03/2020 8:33 PM CDT Sexual Orientation Straight 07/01/2018 3: 40 PM GARDENING SUPERVISOR documented as of this encounter Miscellaneous Notes * Telephone Encounter - Maude Singh RN - 06/18/2019 3:05 PM CST Duplicate. Maude Singh RN ENING SUPERVISOR documented in this encounter Plan of Treatment Not on file documented as of this encounter Visit Diagnoses Diagnosis Persistent insomnia Persistent disorder of initiating or maintaining sleep documented in this encounter Additional Health Concerns Assessment Noted Time PHQ-9 Depression Total Score: 10 019 2:36 PM CDT documented as of this encounter Care Teams Commercial Tire Service Technician Relationship Specialty Start Date End Date Nelson Arroyo PA-C [address] [place] [address] PCP - General Physician Field Crop Technical Officer - Medical 08/06/18 Salina Doherty MD Internal Medicine 12/01/14 Carrillo Ware APRN COMMERCIAL ATTACHE [address] [place] [address] 341525 Nurse Practitioner Nurse Practitioner 12/16/14 Angelica Jerez NP [address] 812727 Nurse Practitioner Nurse Practitioner - Family 07/12/16 Nelson Arroyo PA-C [address], [place] [address] Assigned PCP 07/05/18 07/29/20 Chinyere Barbour Personal Advocate & Liaison (PAL) 01/31/20 04/26/20 Nelson Arroyo PA-C [address], [place] [address] Assigned PCP 07/30/20 Pietro Wills MD [address] [place] [address] Assigned Heart and Vascular Provider 12/14/22 06/26/24 Tank Bucio MD [address], [address] [address] Physician pecan huller 12/01/23 documented as of this encounter
--- OUTSIDE RECORDS SUMMARY | 2024-07-20 16:36 | XMS_ITS | Encounter Summary ---
Author Organization [facility] Address [address] [place] [address]. [place] [address] Care Team Providers Care Palletiser Operator Name Role Phone Salina Doherty MD Unavailable Carrillo Ware APRN PRODUCT DISTRIBUTION SPECIALIST Unavailable SolitarioAngelica golden NP Unavailable [phone] Nelson Arroyo PA-C Unavailable [phone] Nelson Arroyo PA-C Primary Care Provider Chinyere Barbour Unavailable Unavailable Nelson Arroyo PA-C Unavailable Pietro Wills MD Unavailable Tank Bucio MD Unavailable Reason for Visit * Reason Onset Date Comments Refill Request 06/14/2019 Encounter Details Date Type Department Care Team (Late st Contact Info) Description 06/14/2019 MyC Refill [facility] [address], [address] [place] [address] [place] [address] [place] [address] Refill Request Social History Tobacco [...] PM CDT Legal Sex Female 3:44 AM ELECTRICAL TESTER Gender Identity Female 10/03/2020 8:33 PM CDT Sexual Orientation Straight 07/01/2018 3: 40 PM ELECTRICAL TESTER documented as of this encounter Miscellaneous Notes * Telephone Encounter - Maude Singh RN - 06/17/2019 1:38 PM CST Duplicate TRICAL TESTER documented in this encounter Plan of Treatment Not on file documented as of this encounter Visit Diagnoses Diagnosis Generalized anxiety disorder Major depressive disorder, recurrent episode, moderate (H) Major depressive disorder, recurrent episode, moderate documented in this encounter Additional Health Concerns Assessment Noted Time PHQ-9 Depression Total Score: 10 019 2:36 PM CDT documented as of this encounter Care Teams Palletiser Operator Relationship Specialty Start Date End Date Nelson Arroyo PA-C [address] [place] [address] PCP - General Physician Telephone Switchboard Operator - Medical 08/06/18 Salina Doherty MD Internal Medicine 12/01/14 Carrillo Ware APRN PRODUCT DISTRIBUTION SPECIALIST [address] [place] [address] 478205 Nurse Practitioner Nurse Practitioner 12/16/14 Angelica Jerez NP [place] [address] [address] [place], [place] 328[address] Nurse Practitioner Nurse Practitioner - Family 07/12/16 Nelson Arroyo PA-C [address], [place] [address] Assigned PCP 07/05/18 07/29/20 Chinyere Barbour Personal Advocate & Liaison (PAL) 01/31/20 04/26/20 Nelson Arroyo PA-C [address] [address] Assigned PCP 07/30/20 Pietro Wills MD [address] [place] [address] Assigned Heart and Vascular Provider 12/14/22 06/26/24 Tank Bucio MD [address], [address] [address] Physician collection technician 12/01/23 documented as of this encounter
--- OUTSIDE RECORDS SUMMARY | 2024-07-20 16:36 | XMS_ITS | Encounter Summary ---
Author Organization [facility] Address [address] [place] [address]. [place] [address] Care Team Providers Care Platform Material Handler Manager Name Role Phone Salina Doherty MD Unavailable [phone] Carrillo Ware APRN CASE INVESTIGATOR Unavailable SolitarioAngelica golden NP Unavailable [phone] Nelson Arroyo PA-C Unavailable Nelson Arroyo PA-C Primary Care Provider Chinyere Barbour Unavailable Unavailable Nelson Arroyo PA-C Unavailable Pietro Wills MD Unavailable Tank Bucio MD Unavailable Reason for Visit * Reason Onset Date Comments Panel Management 06/23/2019 Encounter Details Date Type Department Care Team (Late st Contact Info) Description 06/23/2019 MyC Medical Advice [facility] [address] [facility], [address] [place] [address] Nelson Arroyo PA-C [address] [place] [address] Panel Management Social History Tobacco [...] PM CDT Legal Sex Female 3:44 AM ELECTRONICS REPAIR TECHNICIAN Gender Identity Female 10/03/2020 8:33 PM CDT Sexual Orientation Straight 07/01/2018 3: 40 PM ELECTRONICS REPAIR TECHNICIAN documented as of this encounter [...] to do PHQ9. Type of outreach: [employer] message. Questions for provider review: None Ashely Younger MA Chart routed to Care Team . TRONICS REPAIR TECHNICIAN documented in this encounter Plan of Treatment Not on file documented as of this encounter Visit Diagnoses Not on filedocumented in this encounter Additional Health Concerns Assessment Noted Time PHQ-9 Depression Total Score: 10 019 2:36 PM CDT documented as of this encounter Care Teams Platform Material Handler Manager Relationship Specialty Start Date End Date Nelson Arroyo PA-C [address] [place] [address] PCP - General Physician Veterans Service Officer - Medical 08/06/18 Salina Doherty MD Internal Medicine 12/01/14 Carrillo Ware APRN CASE INVESTIGATOR [address] [place] [address] Nurse Practitioner Nurse Practitioner 12/16/14 Angelica Jerez NP [facility] [address] [place] [address] Nurse Practitioner Nurse Practitioner - Family 07/12/16 Nelson Arroyo PA-C [address] [place] [address] Assigned PCP 07/05/18 07/29/20 Chinyere Barbour Personal Advocate & Liaison (PAL) 01/31/20 04/26/20 Nelson Arroyo PA-C [address] [address] Assigned PCP 07/30/20 Pietro Wills MD [address] [place] [address] Assigned Heart and Vascular Provider 12/14/22 06/26/24 Tank Bucio MD [address], [facility] [address] [place] [address] Physician business development assistant 12/01/23 documented as of this encounter
--- OUTSIDE RECORDS SUMMARY | 2024-07-20 16:36 | XMS_ITS | Encounter Summary ---
Author Organization [facility] Address [address] [place] [address] Care Team Providers Care Motorcycle Police Name Role Phone Salina Doherty MD Unavailable Carrillo Ware APRN REGIONAL SALES COORDINATOR Unavailable SolitarioAngelica golden NP Unavailable [phone] Nelson Arroyo PA-C Primary Care Provider Nelson Arroyo PA-C Unavailable [phone] Pietro Wills MD Unavailable Tank Bucio MD Unavailable Encounter Details Date Type Department Care Team (Late st Contact Info) Description 04/23/2022 [facility] Medical Advice [facility] [address] [facility] [address] [place] [address] Yodit Alexis, [facility] [address] [place] [address] Social History Tobacco Use Types [...] PM CDT Legal Sex Female 3:44 AM SALES ASSOCIATE CASHIER Gender Identity Female 10/03/2020 8:33 PM CDT Sexual Orientation Straight 07/01/2018 3: 40 PM SALES ASSOCIATE CASHIER documented as of this encounter Plan of Treatment Not on file documented as of this encounter Visit Diagnoses Not on filedocumented in this encounter Additional Health Concerns Assessment Noted Time PHQ-9 Depression Total Score: 7 10/23/19 22 11:44 AM CDT documented as of this encounter Care Teams Motorcycle Police Relationship Specialty Start Date End Date Nelson Arroyo PA-C [address] [address] PCP - General Physician Dietary Service Aide - Medical 08/06/18 Salina Doherty MD Internal Medicine 12/01/14 Carrillo Ware APRN REGIONAL SALES COORDINATOR [address] [place] [address] 696455 Nurse Practitioner Nurse Practitioner 12/16/14 Angelica Jerez NP [address] 583957 Nurse Practitioner Nurse Practitioner - Family 07/12/16 Nelson Arroyo PA-C [address] [address] Assigned PCP 07/30/20 Pietro Wills MD [address] [address] Assigned Heart and Vascular Provider 12/14/22 06/26/24 Tank Bucio MD [address] [facility] [address] [place] [address] Physician book shelver 12/01/23 documented as of this encounter
--- OUTSIDE RECORDS SUMMARY | 2024-07-20 16:36 | XMS_ITS | Encounter Summary ---
Author Organization [facility] Address [address] [place] [address]. [place] [address] Care Team Providers Care Logistics Specialist Name Role Phone Salina Doherty MD Unavailable Carrillo Ware APRN SAFETY COUNCIL DIRECTOR Unavailable SolitarioAngelica golden NP Unavailable Nelson Arroyo PA-C Primary Care Provider Nelson Arroyo PA-C Unavailable [phone] Pietro Wills MD Unavailable Tank Bucio MD Unavailable [phone] Encounter Details Date Type Department Care Team (Late st Contact Info) Description 06/22/[address] 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 Gender Identity Female 10/03/2020 8:33 PM CDT Sexual Orientation Straight 07/01/2018 3: 40 PM DIELECTRIC MACHINE OPERATOR documented as of this encounter Plan of Treatment Not on file documented as of this encounter Visit Diagnoses Not on filedocumented in this encounter Additional Health Concerns Assessment Noted Time PHQ-9 Depression Total Score: 7 10/23/19 11:44 AM CDT documented as of this encounter Care Teams Logistics Specialist Relationship Specialty Start Date End Date Nelson Arroyo PA-C [address] [address] PCP - General Physician Rn Cardiovascular - Medical 08/06/18 Salina Doherty MD Internal Medicine 12/01/14 Carrillo Ware APRN SAFETY COUNCIL DIRECTOR [address] [place] [address] [id number] Nurse Practitioner Nurse Practitioner 12/16/14 Angelica Jerez NP [place] [facility] [address] [place], [place] 263437 Nurse Practitioner Nurse Practitioner - Family 07/12/16 Nelson Arroyo PA-C [address] [address] Assigned PCP 07/30/20 Pietro Wills MD [address] [address] Assigned Heart and Vascular Provider 12/14/22 06/26/24 Tank Bucio MD [address], [facility] [address] [place] [address] Physician uniform force captain 12/01/23 documented as of this encounter
--- OUTSIDE RECORDS SUMMARY | 2024-07-20 16:36 | XMS_ITS | Encounter Summary ---
Author Organization [facility] Address [address] [place] [address] Care Team Providers Care Squad Sergeant Name Role Phone Salina Doherty MD Unavailable [phone] Carrillo Ware APRN SAMPLE CARD MAKER Unavailable Hillary Unger MD Primary Care P rovider [facility] NP Unavailable [phone] Nelson Arroyo PA-C Unavailable Hillary Unger MD Unavailable Hillary Unger MD Unavailable Hillary Unger MD Unavailable Nelson Arroyo PA-C Unavailable [phone] Nelson Arroyo PA-C Primary Care Provider Chinyere Barbour Unavailable Unavailable Nelson Arroyo PA-C Unavailable [phone] Pietro Wills MD Unavailable [phone] Tank Bucio MD Unavailable [phone] Encounter Details Date Type Department Care Team (Late st Contact Info) Description 04/15/2017 [facility] [address] [place] [address] Solitario Angelica Gautam, CORE LAYING MACHINE OPERATOR [address] [place] [address] Social History Tobacco Use Types Packs/Day Years [...] PM CDT Legal Sex Female 3:44 AM HEAD WRESTLING COACH Gender Identity Female 10/03/2020 8:33 PM CDT Sexual Orientation Straight 07/01/2018 3: 40 PM HEAD WRESTLING COACH documented as of this encounter Plan of Treatment Not on file documented as of this encounter Visit Diagnoses Not on filedocumented in this encounter Additional Health Concerns Assessment Noted Time PHQ-9 Depression Total Score: 4 04/04/20 17 7:13 AM HEAD WRESTLING COACH documented as of this encounter Care Teams Squad Sergeant Relationship Specialty Start Date End Date Hillary Unger MD [address] [place] [address] PCP - General Internal Medicine 08/21/15 08/05/18 Nelson Arroyo PA-C [address] [place] [address] PCP - Assigned PCP 04/12/18 05/02/18 Hillary Unger MD [address] [place] [address] PCP - Assigned PCP 02/01/18 04/11/18 Hillary Unger MD [address] [place] [address] PCP - Assigned PCP 05/03/18 07/07/18 Nelson Arroyo PA-C [address] [place] [address] PCP - General Physician Change Lead - Medical 08/06/18 Salina Doherty MD Internal Medicine 12/01/14 Carrillo Ware APRN SAMPLE CARD MAKER [address] [place] [address] Nurse Practitioner Nurse Practitioner 12/16/14 Angelica Jerez CORE LAYING MACHINE OPERATOR [facility] [address] [place], [place] 6[address] Nurse Practitioner Nurse Practitioner - Family 07/12/16 Hillary Unger MD [address] [place] [address] Assigned PCP 05/03/18 07/18/18 Nelson Arroyo PA-C [address] [place] [address] Assigned PCP 07/05/18 07/29/20 Chinyere Barbour Personal Advocate & Liaison (PAL) 01/31/20 04/26/20 Nelson Arroyo PA-C [address] [place] [address] Assigned PCP 07/30/20 Pietro Wills MD [address] [address] Assigned Heart and Vascular Provider 12/14/22 06/26/24 Tank Bucio MD [address], [facility] [address] [place] [address] Physician catering barista 12/01/23 documented as of this encounter
--- OUTSIDE RECORDS SUMMARY | 2024-07-20 16:36 | XMS_ITS | Encounter Summary ---
Author Organization [facility] Address [address] [place] [address] Care Team Providers Care Alumni Relations Manager Name Role Phone Salina Doherty MD Unavailable [phone] Carrillo Ware APRN PROJECT CONTROL OFFICER Unavailable Hillary Unger MD Primary Care P rovider [facility] Unavailable [phone] Nelson Arroyo PA-C Unavailable [phone] Hillary Unger MD Unavailable Hillary Unger MD Unavailable Hillary Unger MD Unavailable Nelson Arroyo PA-C Unavailable [phone] Nelson Arroyo PA-C Primary Care Provider Chinyere Barbour Unavailable Unavailable Nelson Arroyo PA-C Unavailable [phone] Pietro Wills MD Unavailable [phone] Tank Bucio MD Unavailable Encounter Details Date Type Department Care Team (Late st Contact Info) Description 07/03/2017 [facility] [address] [place] [address] Cheyanne Garcia, YULI Social History Tobacco Use [...] PM CDT Legal Sex Female 3:44 AM POT PULLER Gender Identity Female 10/03/2020 8:33 PM CDT Sexual Orientation Straight 07/01/2018 3: 40 PM POT PULLER documented as of this encounter Plan of Treatment Not on file documented as of this encounter Visit Diagnoses Not on filedocumented in this encounter Additional Health Concerns Assessment Noted Time PHQ-9 Depression Total Score: 4 04/04/20 17 7:13 AM POT PULLER documented as of this encounter Care Teams Alumni Relations Manager Relationship Specialty Start Date End Date Hillary Unger MD [address] [place] [address] PCP - General Internal Medicine 08/21/15 08/05/18 Nelson Arroyo PA-C [address] [place] [address] PCP - Assigned PCP 04/12/18 05/02/18 Hillary Unger MD [address] [place] [address] PCP - Assigned PCP 02/01/18 04/11/18 Hillary Unger MD [address] [place] [address] PCP - Assigned PCP 05/03/18 07/07/18 Nelson Arroyo PA-C [address] [place] [address] PCP - General Physician Medical Office Assistant - Medical 08/06/18 Salina Doherty MD Internal Medicine 12/01/14 Carrillo Ware APRN PROJECT CONTROL OFFICER [address] [place] [address] Nurse Practitioner Nurse Practitioner 12/16/14 Angelica Jerez NP [facility] [address] [place] [address] Nurse Practitioner Nurse Practitioner - Family 07/12/16 Hillary Unger MD [address] [place] [address] Assigned PCP 05/03/18 07/18/18 Nelson Arroyo PA-C [address] [place] [address] Assigned PCP 07/05/18 07/29/20 Chinyere Barbour Personal Advocate & Liaison (PAL) 01/31/20 04/26/20 Nelson Arroyo PA-C [address] [place] [address] Assigned PCP 07/30/20 Pietro Wills MD [address] [place] [address] Assigned Heart and Vascular Provider 12/14/22 06/26/24 Tank Bucio MD [address] 8658[address] Physician lens mold setter 12/01/23 documented as of this encounter
--- OUTSIDE RECORDS SUMMARY | 2024-07-20 16:36 | XMS_ITS | Encounter Summary ---
Author Organization [facility] Address [address] [place] [address]. [place] [address] Care Team Providers Care Percussion Welding Machine Operator Name Role Phone Salina Doherty MD Unavailable Carrillo Ware APRN FLY FINISHER Unavailable [phone] SolitarioAngelica golden NP Unavailable [phone] Nelson Arroyo PA-C Unavailable Nelson Arroyo PA-C Primary Care Provider Chinyere Barbour Unavailable Unavailable Nelson Arroyo PA-C Unavailable [phone] Pietro Wills MD Unavailable Tank Bucio MD Unavailable Encounter Details Date Type Department Care Team (Late st Contact Info) Description 04/04/2019 MyC Medical Advice [address], [address] [place] [address] Nelson Arroyo PA-C [address] [place] [address] Social History Tobacco Use Types [...] PM CDT Legal Sex Female 3:44 AM SECURITY AMBASSADOR Gender Identity Female 10/03/2020 8:33 PM CDT Sexual Orientation Straight 07/01/2018 3: 40 PM SECURITY AMBASSADOR documented as of this encounter Plan of Treatment Not on file documented as of this encounter Visit Diagnoses Not on filedocumented in this encounter Additional Health Concerns Assessment Noted Time PHQ-9 Depression Total Score: 10 019 2:36 PM CDT documented as of this encounter Care Teams Percussion Welding Machine Operator Relationship Specialty Start Date End Date Nelson Arroyo PA-C [address] [place] [address] PCP - General Physician Guinea Pig Breeder - Medical 08/06/18 Salina Doherty MD Internal Medicine 12/01/14 Carrillo Ware APRN FLY FINISHER [address] [place] [address] Nurse Practitioner Nurse Practitioner 12/16/14 Angelica Jerez NP [address] 8745[address] Nurse Practitioner Nurse Practitioner - Family 07/12/16 Nelson Arroyo PA-C [address] [place] [address] Assigned PCP 07/05/18 07/29/20 Chinyere Barbour Personal Advocate & Liaison (PAL) 01/31/20 04/26/20 Nelson Arroyo PA-C [address] [place] [address] Assigned PCP 07/30/20 Pietro Wills MD [address] [place] [address] Assigned Heart and Vascular Provider 12/14/22 06/26/24 Tank Bucio MD [address] [facility], [address] [address] Physician integrated logistics operations manager 12/01/23 documented as of this encounter
--- OUTSIDE RECORDS SUMMARY | 2024-07-20 16:36 | XMS_ITS | Encounter Summary ---
Author Organization [facility] Address [address] [place] [address] Care Team Providers Care Shoe Lacer Name Role Phone Salina Doherty MD Unavailable [phone] Carrillo Ware APRN STRAINER MILL OPERATOR Unavailable Hillary Unger MD Primary Care P rovider [facility] Unavailable [phone] Nelson Arroyo PA-C Unavailable [phone] Hillary Unger MD Unavailable Hillary Unger MD Unavailable Hillary Unger MD Unavailable Nelson Arroyo PA-C Unavailable [phone] Nelson Arroyo PA-C Primary Care Provider Chinyere Barbour Unavailable Unavailable Nelson Arroyo PA-C Unavailable [phone] Pietro Wills MD Unavailable [phone] Tank Bucio MD Unavailable [phone] Encounter Details Date Type Department Care Team (Late st Contact Info) Description 04/02/2017 [facility] [address] [place] [id number] Angelica Jerez ENVIRONMENTAL PLANNING ENGINEER [address] [place], [place] [address] Social History Tobacco Use Types Packs/Day Years [...] PM CDT Legal Sex Female 3:44 AM NUMBERER AND WIRER Gender Identity Female 10/03/2020 8:33 PM CDT Sexual Orientation Straight 07/01/2018 3: 40 PM NUMBERER AND WIRER documented as of this encounter Miscellaneous Notes * Telephone Encounter - Ila Veliz RN - 04/03/2017 8:14 AM CST Pt is requesting earlier appointment today if available. Thank you! Ila Veliz RN ERER AND WIRER documented in this encounter Plan of Treatment Not on file documented as of this encounter Visit Diagnoses Not on filedocumented in this encounter Additional Health Concerns Assessment Noted Time PHQ-9 Depression Total Score: 3 12/07/19 17 2:21 PM CDT documented as of this encounter Care Teams Shoe Lacer Relationship Specialty Start Date End Date Hlilary Unger MD [address] [place] [address] PCP - General Internal Medicine 08/21/15 08/05/18 Nelson Arroyo PA-C [address] [place] [address] PCP - Assigned PCP 04/12/18 05/02/18 Hillary Unger MD [address] [place] [address] PCP - Assigned PCP 02/01/18 04/11/18 Hillary Unegr MD [address] [place] [address] PCP - Assigned PCP 05/03/18 07/07/18 Nelson Arroyo PA-C [address] [place] [id number] PCP - General Physician Employment Office Clerk - Medical 08/06/18 Salina Doherty MD Internal Medicine 12/01/14 Carrillo Ware APRN STRAINER MILL OPERATOR [address] [place] [address] Nurse Practitioner Nurse Practitioner 12/16/14 Angelica Jerez NP [facility] [address] [place] [address] Nurse Practitioner Nurse Practitioner - Family 07/12/16 Hillary Unger MD [address] [place] [address] Assigned PCP 05/03/18 07/18/18 Nelson Arroyo PA-C [address] [address] Assigned PCP 07/05/18 07/29/20 Chinyere Barbour Personal Advocate & Liaison (PAL) 01/31/20 04/26/20 Nelson Arroyo PA-C [address] [place] [address] Assigned PCP 07/30/20 Pietro Wills MD [address] [place] [address] Assigned Heart and Vascular Provider 12/14/22 06/26/24 Tank Bucio MD [address], [address] [address] Physician able bodied tankerman 12/01/23 documented as of this encounter
--- OUTSIDE RECORDS SUMMARY | 2024-07-20 16:36 | XMS_ITS | Encounter Summary ---
Author Organization [facility] Address [address] [place] [address]. [place] [address] Care Team Providers Care Cadmium Burner Name Role Phone Salina Doherty MD Unavailable [phone] Carrillo Ware APRN TRIM CREW SUPERVISOR Unavailable SolitarioAngelica golden NP Unavailable [phone] Nelson Arroyo PA-C Unavailable [phone] Nelson Arroyo PA-C Primary Care Provider [phone] Chinyere Barbour Unavailable Unavailable Nelson Arroyo PA-C Unavailable Pietro Wills MD Unavailable Tank Bucio MD Unavailable Reason for Visit * Reason Onset Date Comments Refill Request 06/21/2019 Seroquel Encounter Details Date Type Department Care Team (Late st Contact Info) Description 06/21/[address] [facility] [address] [facility], [address] [place] [address] [place] [address] [place] [address] Refill Request (Seroquel) Social History [...] Legal Sex Female 3:44 AM DIRECTOR OF BLOOD Gender Identity Female 10/03/2020 8:33 PM CDT Sexual Orientation Straight 07/01/2018 3: 40 PM DIRECTOR OF BLOOD documented as of this encounter Miscellaneous Notes * Telephone Encounter - Maude Singh RN - 06/23/2019 11:33 AM CST Already refilled. Maude Singh RN CTOR OF BLOOD documented in this encounter Plan of Treatment Not on file documented as of this encounter Visit Diagnoses Diagnosis Generalized anxiety disorder Major depressive disorder, recurrent episode, moderate (H) Major depressive disorder, recurrent episode, moderate documented in this encounter Additional Health Concerns Assessment Noted Time PHQ-9 Depression Total Score: 10 019 2:36 PM CDT documented as of this encounter Care Teams Cadmium Burner Relationship Specialty Start Date End Date Nelson Arroyo PA-C [address] [place] [address] PCP - General Physician Marble Coper - Medical 08/06/18 Salina Doherty MD Internal Medicine 12/01/14 Carrillo Ware APRN TRIM CREW SUPERVISOR [address] [place] [address]365 Nurse Practitioner Nurse Practitioner 12/16/14 Angelica Jerez NP [address] 3217[address] Nurse Practitioner Nurse Practitioner - Family 07/12/16 Nelson Arroyo PA-C [address] [address] Assigned PCP 07/05/18 07/29/20 Chinyere Barbour Personal Advocate & Liaison (PAL) 01/31/20 04/26/20 Nelson Arroyo PA-C [address] [address] Assigned PCP 07/30/20 Pietro Wills MD [address] [place] [address] Assigned Heart and Vascular Provider 12/14/22 06/26/24 Tank Bucio MD [address], [address] [address] Physician energy technician 12/01/23 documented as of this encounter
--- OUTSIDE RECORDS SUMMARY | 2024-07-20 16:36 | XMS_ITS | Encounter Summary ---
Author Organization [place] Address [address] [place] [address]. [place] [address] Care Team Providers Care Bolt Header Name Role Phone Salina Doherty MD Unavailable [phone] Carrillo Ware APRN LOG SNAKER Unavailable SolitarioAngelica golden NP Unavailable [phone] Nelson Arroyo PA-C Unavailable [phone] Nelson Arroyo PA-C Primary Care Provider [phone] Chinyere Barbour Unavailable Unavailable Nelson Arroyo PA-C Unavailable Pierto Wills MD Unavailable Tank Bucio MD Unavailable Reason for Visit * Reason Onset Date Comments Refill Request 06/14/2019 Tizanidine 4mg Encounter Details Date Type Department Care Team (Late st Contact Info) Description 06/14/2019 MyC Refill [place] [address] [facility], [address] [place] [address] Nelson Arroyo PA-C [address] [place] [address] Refill Request (Tizanidine 4mg) 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 Sex Female 3:44 AM DIRECTOR TECHNICAL Gender Identity Female 10/03/2020 8:33 PM CDT Sexual Orientation Straight 07/01/2018 3: 40 PM DIRECTOR TECHNICAL documented as of this encounter Miscellaneous Notes * Telephone Encounter - Maude Singh RN - 06/17/2019 1:38 PM CST Tizanidine 4mg Last Written Prescription Date: 04/06/2019 Last Fill Quantity: 120, # refills: 1 Last Office Visit: 02/04/2019 Future Office visit: Next 5 appointments (look out 90 days) Jun 30, 2019 3:00 PM DIRECTOR TECHNICAL MyChart Short with Nelson Arroyo PA-C [facility] [address] [place] [address], [address] [address] Routing refill request to provider for review/approval because: Drug not on the G, P or [facility] refill protocol or controlled substance. Maude Singh RN CTOR TECHNICAL documented in this encounter Plan of Treatment Not on file documented as of this encounter Visit Diagnoses Diagnosis Persistent insomnia Persistent disorder of initiating or maintaining sleep Muscle spasm Spasm of muscle Cervicalgia documented in this encounter Additional Health Concerns Assessment Noted Time PHQ-9 Depression Total Score: 10 019 2:36 PM CDT documented as of this encounter Care Teams Bolt Header Relationship Specialty Start Date End Date Nelson Arroyo PA-C [address] [place] [address] PCP - General Physician Store Hand - Medical 08/06/18 Salina Doherty MD Internal Medicine 12/01/14 Carrillo Ware APRN CNP [address] [place] [address] Nurse Practitioner Nurse Practitioner 12/16/14 Angelica Jerez NP [facility] [address] [place] [address] Nurse Practitioner Nurse Practitioner - Family 07/12/16 Nelson Arroyo PA-C [address] [place] [address] Assigned PCP 07/05/18 07/29/20 Chinyere Barbour Personal Advocate & Liaison (PAL) 01/31/20 04/26/20 Nelson Arroyo PA-C [address] [place] [address] Assigned PCP 07/30/20 Pietro Wills MD [address] [place] [address] Assigned Heart and Vascular Provider 12/14/22 06/26/24 Tank Bucio MD [address], [facility] [[email or web address] [address] [place] [address] Physician curriculum development coordinator 12/01/23 documented as of this encounter
--- OUTSIDE RECORDS SUMMARY | 2024-07-20 16:36 | XMS_ITS | Encounter Summary ---
Author Organization [place] Address [address] [place] [address]. [place] [address] Care Team Providers Care General Agent Name Role Phone Salina Doherty MD Unavailable [phone] Carrillo Ware APRN WEB OFFSET PRESS FEEDER Unavailable SolitarioAngelica golden NP Unavailable [phone] Nelson Arroyo PA-C Unavailable [phone] Nelson Arroyo PA-C Primary Care Provider Chinyere Barbour Unavailable Unavailable Nelson Arroyo PA-C Unavailable Pietro Wills MD Unavailable [phone] Tank Bucio MD Unavailable Reason for Visit * Reason Onset Date Comments Medication Refill 06/17/2019 Seroquel 300mg Encounter Details Date Type Department Care Team (Late st Contact Info) Description 06/14/2019 Refill [facility] [address] [facility], [address] [place] [address] [place] [address] [place] [address] Medication Refill (Seroquel 300mg) Social History [...] CDT Legal Sex Female 3:44 AM AUTO TIRE RECAPPER Gender Identity Female 10/03/2020 8:33 PM CDT Sexual Orientation Straight 07/01/2018 3: 40 PM AUTO TIRE RECAPPER documented as of this encounter Miscellaneous Notes [...] 90 days) Jun 30, 2019 3:00 PM AUTO TIRE RECAPPER Galina Bellamy with Nelson Arroyo PA-C [facility] [address] [place] [address], [address] [address] Requested Prescriptions Pending Prescriptions Disp [...] & Orders section of the refill encounter. TIRE RECAPPER documented in this encounter Plan of Treatment Not on file documented as of this encounter Visit Diagnoses Diagnosis Generalized anxiety disorder Major depressive disorder, recurrent episode, moderate (H) Major depressive disorder, recurrent episode, moderate documented in this encounter Additional Health Concerns Assessment Noted Time PHQ-9 Depression Total Score: 10 019 2:36 PM CDT documented as of this encounter Care Teams General Agent Relationship Specialty Start Date End Date Nelson Arroyo PA-C [address] [place] [address] PCP - General Physician Sharepoint Admin - Medical 08/06/18 Salina Doherty MD Internal Medicine 12/01/14 Carrillo Ware APRN WEB OFFSET PRESS FEEDER [address] [place] [address] Nurse Practitioner Nurse Practitioner 12/16/14 Angelica Jerez AGRICULTURAL CHEMICALS INSPECTOR [facility] [address] [place] [address] Nurse Practitioner Nurse Practitioner - Family 07/12/16 Nelson Arroyo PA-C [address] [place] [address] Assigned PCP 07/05/18 07/29/20 Chinyere Barbour Personal Advocate & Liaison (PAL) 01/31/20 04/26/20 Nelson Arroyo PA-C [address] [place] [address] Assigned PCP 07/30/20 Pietro Wills MD [address] [place] [address] Assigned Heart and Vascular Provider 12/14/22 06/26/24 Tank Bucio MD [address] [facility] [address] [place] [address] Physician fisher diving 12/01/23 documented as of this encounter
--- OUTSIDE RECORDS SUMMARY | 2024-07-20 16:36 | XMS_ITS | Encounter Summary ---
Author Organization [facility] Address [address] [place] [address] Care Team Providers Care Credit Card Interviewer Name Role Phone Salina Doherty MD Unavailable [phone] Carrillo Ware APRN OTR VAN CDL TRUCK DRIVER Unavailable Hillary Unger MD Primary Care P rovider [facility] NP Unavailable [phone] Nelson Arroyo PA-C Unavailable [phone] Hillary Unger MD Unavailable Hillary Unger MD Unavailable Hillary Unger MD Unavailable Nelson Arroyo PA-C Unavailable [phone] Nelson Arroyo PA-C Primary Care Provider Chinyere Barbour Unavailable Unavailable Nelson Arroyo PA-C Unavailable [phone] Pietro Wills MD Unavailable [phone] Tank Bucio MD Unavailable Encounter Details Date Type Department Care Team (Late st Contact Info) Description 06/17/2017 [facility] [address] [place] [address] Solitario Angelica Gautam, DRIVER ENGINEER [address] [place] [address] Social History Tobacco Use Types Packs/Day Years [...] PM CDT Legal Sex Female 3:44 AM MOTOR MAN Gender Identity Female 10/03/2020 8:33 PM CDT Sexual Orientation Straight 07/01/2018 3: 40 PM MOTOR MAN documented as of this encounter Plan of Treatment Not on file documented as of this encounter Visit Diagnoses Not on filedocumented in this encounter Additional Health Concerns Assessment Noted Time PHQ-9 Depression Total Score: 4 04/04/20 17 7:13 AM MOTOR MAN documented as of this encounter Care Teams Credit Card Interviewer Relationship Specialty Start Date End Date Hillary Unger MD [address] [place] [address] PCP - General Internal Medicine 08/21/15 08/05/18 Nelson Arroyo PA-C [address] [place] [address] PCP - Assigned PCP 04/12/18 05/02/18 Hillary Unger MD [address] [place] [address] PCP - Assigned PCP 02/01/18 04/11/18 Hillary Unger MD [address] [place] [address] PCP - Assigned PCP 05/03/18 07/07/18 Nelson Arroyo PA-C [address] [place] [address] PCP - General Physician Quality Worker - Medical 08/06/18 Salina Doherty MD Internal Medicine 12/01/14 Carrillo Ware APRN OTR VAN CDL TRUCK DRIVER [address] [place] [address] Nurse Practitioner Nurse Practitioner 12/16/14 Angelica Jerez DRIVER ENGINEER [facility] [address] [place], [place] [address] Nurse Practitioner Nurse Practitioner - Family 07/12/16 Hillary Unger MD [address] [place] [address] Assigned PCP 05/03/18 07/18/18 Nelson Arroyo PA-C [address] [place] [address] Assigned PCP 07/05/18 07/29/20 Chinyere Barbour Personal Advocate & Liaison (PAL) 01/31/20 04/26/20 Nelson Arroyo PA-C [address] [place] [address] Assigned PCP 07/30/20 Pietro Wills MD [address] [address] Assigned Heart and Vascular Provider 12/14/22 06/26/24 Tank Bucio MD [address], [facility] 100 [place] [address] Physician ruffler 12/01/23 documented as of this encounter
--- OUTSIDE RECORDS SUMMARY | 2024-07-20 16:36 | XMS_ITS | Encounter Summary ---
Author Organization [facility] Address [address] [place] [address]. [place] [address] Care Team Providers Care Oracle Webcenter Consultant Name Role Phone Salina Doherty MD Unavailable [phone] Carrillo Ware APRN APPAREL STOCK CHECKER Unavailable SolitarioAngelica golden NP Unavailable [phone] Nelson Arroyo PA-C Unavailable [phone] Nelson Arroyo PA-C Primary Care Provider Chinyere Barbour Unavailable Unavailable Nelson Arroyo PA-C Unavailable [phone] Pietro Wills MD Unavailable [phone] Tank Bucio MD Unavailable [phone] Reason for Visit * Reason Onset Date Comments MyChart Communication 10/11/2019 Encounter Details Date Type Department Care Team (Late st Contact Info) Description 10/11/2019 MyC Medical Advice [facility] [address] [facility], [address] [place] [address] Nelson Arroyo PA-C [address] [place] [address] MyChart Communication Social History Tobacco [...] PM CDT Legal Sex Female 3:44 AM CHIEF CONTROLLER STATION Gender Identity Female 10/03/2020 8:33 PM CDT Sexual Orientation Straight 07/01/2018 3: 40 PM CHIEF CONTROLLER STATION documented as of this encounter Miscellaneous Notes * Telephone Encounter - Tarik Jaramillo RN - 10/12/2019 2:11 PM CDT Redux message sent to patient per below. Tarik [...] documented as of this encounter Care Teams Oracle Webcenter Consultant Relationship Specialty Start Date End Date Nelson Arroyo PA-C [address] [address] PCP - General Physician Catheter Finisher And Inspector - Medical 08/06/18 Salina Doherty MD Internal Medicine 12/01/14 Carrillo Ware APRN APPAREL STOCK CHECKER [address] [place] [address] Nurse Practitioner Nurse Practitioner 12/16/14 Angelica Jerez IRON MOLDER HELPER [facility] [address] [place] [address] Nurse Practitioner Nurse Practitioner - Family 07/12/16 Nelson Arroyo PA-C [address] [place] [address] Assigned PCP 07/05/18 07/29/20 Chinyere Barbour Personal Advocate & Liaison (PAL) 01/31/20 04/26/20 Nelson Arroyo PA-C [address] [place] [address] Assigned PCP 07/30/20 Pietro Wills MD [address] [place] [address] Assigned Heart and Vascular Provider 12/14/22 06/26/24 Tank Bucio MD [address], [facility] [address] [place] [address] Physician reel winder 12/01/23 documented as of this encounter
--- OUTSIDE RECORDS SUMMARY | 2024-07-20 16:36 | XMS_ITS | Encounter Summary ---
Author Organization [facility] Address [address] [place] [address]. [place] [address] Care Team Providers Care Control Clerk Name Role Phone Salina Doherty MD Unavailable [phone] Carrillo Ware APRN LIEUTENANT GOVERNOR Unavailable SolitarioAngelica golden NP Unavailable [phone] Nelson Arroyo PA-C Primary Care Provider Nelson Arroyo PA-C Unavailable Pietro Wills MD Unavailable Tank Bucio MD Unavailable Reason for Visit * Reason Comments Medication Refill Encounter Details Date Type Department Care Team (Late st Contact Info) Description 05/29/[address] [facility] [address] [place] [address] Nelson Arroyo PA-C [address] [place] [address] Medication Refill Social History Tobacco [...] PM CDT Legal Sex Female 3:44 AM STEREOPTIC PROJECTION TOPOGRAPHER Gender Identity Female 10/03/2020 8:33 PM CDT Sexual Orientation Straight 07/01/2018 3: 40 PM STEREOPTIC PROJECTION TOPOGRAPHER documented as of this encounter Miscellaneous Notes * Telephone Encounter - Amanda Unger - 05/29/2022 3:54 PM CST LMTCB Amanda Unger Hog Dropper EOPTIC PROJECTION TOPOGRAPHER * Telephone Encounter - Nelson Arroyo PA-C - 05/29/2022 3:50 PM STEREOPTIC PROJECTION TOPOGRAPHER I think she is going to [facility] now. She will need to contact them for refill. Nelson EOPTIC PROJECTION TOPOGRAPHER * Telephone Encounter - Tiny Carrillo RN - 05/29/2022 12:14 PM STEREOPTIC PROJECTION TOPOGRAPHER Routing refill request to provider for review/approval because: Drug not on the [facility] [place] [place] refill protocol EOPTIC PROJECTION TOPOGRAPHER documented in this encounter Plan of Treatment Not on file documented as of this encounter Visit Diagnoses Diagnosis Muscle spasm Spasm of muscle documented in this encounter Additional Health Concerns Assessment Noted Time PHQ-9 Depression Total Score: 7 10/23/19 22 11:44 AM CDT documented as of this encounter Care Teams Control Clerk Relationship Specialty Start Date End Date Nelson Arroyo PA-C [address] [address] PCP - General Physician Law Office Receptionist - Medical 08/06/18 Salina Doherty MD Internal Medicine 12/01/14 Carrillo Ware APRN LIEUTENANT GOVERNOR [address] [place] [address] Nurse Practitioner Nurse Practitioner 12/16/14 Angelica Jerez NP [facility] [address] [place] [address] Nurse Practitioner Nurse Practitioner - Family 07/12/16 Nelson Arroyo PA-C [address] [place] [address] Assigned PCP 07/30/20 Pietro Wills MD [address] [place] [address] Assigned Heart and Vascular Provider 12/14/22 06/26/24 Tank Bucio MD [address], [address] [address] Physician senior solutions architect 12/01/23 documented as of this encounter
--- OUTSIDE RECORDS SUMMARY | 2024-07-20 16:36 | XMS_ITS | Encounter Summary ---
Author Organization [place] Address [address] [place] [address] Care Team Providers Care Pie Filling Mixer Name Role Phone Salina Doherty MD Unavailable [phone] SIGN INSTALLER Unavailable SolitarioAngelica golden NP Unavailable [phone] Nelson Arroyo PA-C Unavailable [phone] Nelson Arroyo PA-C Primary Care Provider Chinyere Barbour Unavailable Unavailable Nelson Arroyo PA-C Unavailable [phone] Pietro Wills MD Unavailable [phone] Tank Bucio MD Unavailable [phone] Encounter Details Date Type Department Care Team (Late st Contact Info) Description 07/15/2019 MyC Medical Advice [facility] [address] [place] [address], [address] [place] [address] Blanca Baker Social History Tobacco [...] PM CDT Legal Sex Female 3:44 AM PROOF COINS INSPECTOR Gender Identity Female 10/03/2020 8:33 PM CDT Sexual Orientation Straight 07/01/2018 3: 40 PM PROOF COINS INSPECTOR documented as of this encounter Plan of Treatment Not on file documented as of this encounter Visit Diagnoses Not on filedocumented in this encounter Additional Health Concerns Assessment Noted Time PHQ-9 Depression Total Score: 10 020 3:04 PM PROOF COINS INSPECTOR documented as of this encounter Care Teams Pie Filling Mixer Relationship Specialty Start Date End Date Nelson Arroyo PA-C [address] [address] PCP - General Physician Furniture Mover Helper - Medical 08/06/18 Salina Doherty MD Internal Medicine 12/01/[address] SIGN INSTALLER [address] [place] [address] Nurse Practitioner Nurse Practitioner 12/16/14 Angelica Jerez NP [address] [address] Nurse Practitioner Nurse Practitioner - Family 07/12/16 Nelson Arroyo PA-C [address] [address] Assigned PCP 07/05/18 07/29/20 Chinyere Barbuor Personal Advocate & Liaison (PAL) 01/31/20 04/26/20 Nelson Arroyo PA-C [address] [address] Assigned PCP 07/30/20 Pietro Wills MD [address] [place] [address] Assigned Heart and Vascular Provider 12/14/22 06/26/24 Tank Bucio MD [address] [facility] [address] [place] [address] Physician hip hop performers 12/01/23 documented as of this encounter
--- OUTSIDE RECORDS SUMMARY | 2024-07-20 16:36 | XMS_ITS | Encounter Summary ---
Author Organization [facility] Address [address] [place] [address]. [place] [address] Care Team Providers Care Diffuser Operator Name Role Phone Salina Doherty MD Unavailable [phone] Carrillo Ware APRN STOCK PREPARATION SUPERVISOR Unavailable [phone] SolitarioAngelica golden NP Unavailable [phone] Nelson Aroryo PA-C Unavailable Nelson Arroyo PA-C Primary Care Provider Chinyere Barbour Unavailable Unavailable Nelson Arroyo PA-C Unavailable [phone] Pietro Wills MD Unavailable Tank Bucio MD Unavailable Reason for Visit * Reason Onset Date Comments Refill Request 04/04/2019 Zanaflex, Trazod one, Elavil Encounter Details Date Type Department Care Team (Late st Contact Info) Description 04/04/2019 MyC Refill [address], [address] [place] [address] Nelson Arroyo PA-C [address] [place] [address] Refill Request (Zanaflex, Trazodone, Elavil) [...] PM CDT Legal Sex Female 3:44 AM PRESSURE SUPERVISOR Gender Identity Female 10/03/2020 8:33 PM CDT Sexual Orientation Straight 07/01/2018 3: 40 PM PRESSURE SUPERVISOR documented as of this encounter Miscellaneous [...] 90 days) Apr 14, 2019 3:40 PM PRESSURE SUPERVISOR Galina Tavarez with Nelson Arroyo PA-C [facility] [address] [place] [address], [facility] 100 [facility] [address] Routing refill request to provider for [...] PM ANDREA Tavarez with Nelson Arroyo PA-C [facility] [address] [place] [address], [address] [address] Requested Prescriptions Pending Prescriptions Disp [...] in past 12 mos Prescription approved per [facility] Refill Protocol. Maude Singh RN SURE SUPERVISOR documented in this encounter Plan of Treatment Not on file documented as of this encounter Visit Diagnoses Diagnosis Muscle spasm Spasm of muscle Cervicalgia Persistent insomnia Persistent disorder of initiating or maintaining sleep documented in this encounter Additional Health Concerns Assessment Noted Time PHQ-9 Depression Total Score: 10 019 2:36 PM CDT documented as of this encounter Care Teams Diffuser Operator Relationship Specialty Start Date End Date Nelson Arroyo PA-C [address] [place] [address] PCP - General Physician Comfort Filler - Medical 08/06/18 Salina Doherty MD Internal Medicine 12/01/14 Carrillo Ware APRN STOCK PREPARATION SUPERVISOR [address] [place] [address] Nurse Practitioner Nurse Practitioner 12/16/14 Angelica Jerez NP [address] [address] Nurse Practitioner Nurse Practitioner - Family 07/12/16 Nelson Arroyo PA-C [address] [address] Assigned PCP 07/05/18 07/29/20 Chinyere Barbour Personal Advocate & Liaison (PAL) 01/31/20 04/26/20 Nelson Arroyo PA-C [address] [place] [address] Assigned PCP 07/30/20 Pietro Wills MD [address] [place] [address] Assigned Heart and Vascular Provider 12/14/22 06/26/24 Tank Bucio MD [address], [address] [address] Physician botany teacher 12/01/23 documented as of this encounter
--- OUTSIDE RECORDS SUMMARY | 2024-07-20 16:36 | XMS_ITS | Encounter Summary ---
Author Organization [facility] Address [address] [place] [address] Care Team Providers Care Olive Pitter Name Role Phone Salina Doherty MD Unavailable [phone] Kavon Cadena MD Unavailable [phone] Carrillo Ware APRN COUNTY AGRICULTURAL AGENT Unavailable Salina Doherty MD Primary Care Provider [phone] Hillary Unger MD Primary Care P rovider Nelson Arroyo PA-C Primary Care Provider [phone] Hillary Unger MD Primary Care P rovider Angelica Jerez ELECTRIC TRACK SWITCH MAINTAINER Unavailable [phone] Nelson Arroyo PA-C Unavailable [phone] Hillary Unger MD Unavailable Hillary Unger MD Unavailable Hillary Unger MD Unavailable Nelson Arroyo PA-C Unavailable [phone] Nelson Arroyo PA-C Primary Care Provider [phone] Chinyere Barbour Unavailable Unavailable Nelson Arroyo PA-C Unavailable [phone] Pietro Wills MD Unavailable Tank Bucio MD Unavailable Encounter Details Date Type Department Care Team (Late st Contact Info) Description 01/12/2012 [facility] Extended Documentation [facility] [address] [place] [address] CiraCarin nam, CARBON CLEANER, H[place]EL [place]ION[place] [address] Social History Tobacco Use Types Packs/Day Years Used Date Smoking Tobacco: Never Alcohol Use Standard Drinks/Week Comments Yes 0 (1 standard drink = 0.6 oz pur e alcohol) every two weeks Comments No Sex and Gender Information Value Date Recorded Sex Assigned at Female 10/03/2020 8:33 PM CDT Legal Sex Female 3:44 AM MOLD CLOSER HELPER Gender Identity Female 10/03/2020 8:33 PM CDT Sexual Orientation Straight 07/01/2018 3: 40 PM MOLD CLOSER HELPER documented as of this encounter Plan of Treatment Not on file documented as of this encounter Visit Diagnoses Not on filedocumented in this encounter Care Teams Olive Pitter Relationship Specialty Start Date End Date Salina Doherty MD PCP - General Internal Medicine 12/27/14 01/04/15 Hillary Unger MD [address] [place] [address] PCP - General Internal Medicine 01/05/15 08/02/15 Nelson Arroyo PA-C [address] [place] [address] PCP - General Physician Personal Secretary - Medical 08/03/15 08/20/15 Hillary Unger MD [address] [place] [address] PCP - General Internal Medicine 08/21/15 08/05/18 Nelson Arroyo PA-C [address] [place] [place] [address] PCP - Assigned PCP 04/12/18 05/02/18 Hillary Unger MD [address] [place] [address] PCP - Assigned PCP 02/01/18 04/11/18 Hillary Unger MD [address] [place] [address] PCP - Assigned PCP 05/03/18 07/07/18 Nelson Arroyo PA-C [address] [place] [place] [address] PCP - General Physician Personal Secretary - Medical 08/06/18 Salina Doherty MD Internal Medicine 12/01/14 [place] [address] [place] [address] Resident Rheumatology 12/01/14 12/15/14 Carrillo Ware APRN COUNTY AGRICULTURAL AGENT [address] [place] [address] Nurse Practitioner Nurse Practitioner 12/16/14 Angelica Jerez NP [facility] [address] [place], [place] [address] Nurse Practitioner Nurse Practitioner - Family 07/12/16 Hillary Unger MD [address] [place] [address] Assigned PCP 05/03/18 07/18/18 Nelson Arroyo PA-C [address] [place] [address] Assigned PCP 07/05/18 07/29/20 Chinyere Barbour Personal Advocate & Liaison (PAL) 01/31/20 04/26/20 Nelson Arroyo PA-C [address] [place] [address] Assigned PCP 07/30/20 Pietro Wills MD [address] [place] [address] Assigned Heart and Vascular Provider 12/14/22 06/26/24 Tank Bucio MD [address], [facility] [address] [place] [address] Physician fractionation supervisor 12/01/23 documented as of this encounter
--- OUTSIDE RECORDS SUMMARY | 2024-07-20 16:36 | XMS_ITS | Encounter Summary ---
Author Organization [place] Address [address] [place] [address]. [place] [address] Care Team Providers Care Core Checker Name Role Phone Salina Doherty MD Unavailable [phone] Carrillo Ware APRN ADA ACCOMMODATION CONSULTANT Unavailable [phone] SolitarioAngelica golden NP Unavailable [phone] Nelson Arroyo PA-C Unavailable [phone] Nelson Arroyo PA-C Primary Care Provider Chinyere Barbour Unavailable Unavailable Nelson Arroyo PA-C Unavailable Pietro Wills MD Unavailable [phone] Tank Bucio MD Unavailable Reason for Visit * Reason Comments Medication Refill Encounter Details Date Type Department Care Team (Late st Contact Info) Description 04/21/[address], [address] [place] [address] [place] [address] [place] [address] Medication Refill Social History Tobacco [...] PM CDT Legal Sex Female 3:44 AM SOUND EFFECTS MANAGER Gender Identity Female 10/03/2020 8:33 PM CDT Sexual Orientation Straight 07/01/2018 3: 40 PM SOUND EFFECTS MANAGER documented as of this encounter Miscellaneous Notes * Telephone Encounter - Nelson Arroyo PA-C - 04/23/2019 9:18 AM SOUND EFFECTS MANAGER I will fill. When she was in for appointment in Feb we discussed that she needs to come back in to complete PAP part of physical that we did not do. Please remind her of this. D EFFECTS MANAGER * Telephone Encounter - Lexi Reina RN [...] for review/approval because: Drug not on the [facility] refill protocol D EFFECTS MANAGER documented in this encounter Plan of Treatment Not on file documented as of this encounter Visit Diagnoses Diagnosis Generalized anxiety disorder documented in this encounter Additional Health Concerns Assessment Noted Time PHQ-9 Depression Total Score: 10 019 2:36 PM CDT documented as of this encounter Care Teams Core Checker Relationship Specialty Start Date End Date Nelson Arroyo PA-C [address] [place] [address] PCP - General Physician Instrumentation Engineering Technician - Medical 08/06/18 Salina Doherty MD Internal Medicine 12/01/14 Carrillo Ware APRN ADA ACCOMMODATION CONSULTANT [address] [place] [address] Nurse Practitioner Nurse Practitioner 12/16/14 Angelica Jerez NP [facility] [address] [place] [address] Nurse Practitioner Nurse Practitioner - Family 07/12/16 Nelson Arroyo PA-C [address] [place] [address] Assigned PCP 07/05/18 07/29/20 Chinyere Barbour Personal Advocate & Liaison (PAL) 01/31/20 04/26/20 Nelson Arroyo PA-C [address] [place] [address] Assigned PCP 07/30/20 Pietro Wills MD [address] [place] [address] Assigned Heart and Vascular Provider 12/14/22 06/26/24 Tank Bucio MD [address], [address] [address] Physician straw hat presser 12/01/23 documented as of this encounter
--- OUTSIDE RECORDS SUMMARY | 2024-07-20 16:36 | XMS_ITS | Encounter Summary ---
Author Organization [place] Address [address] [place] [address]. [place] [address] Care Team Providers Care Sagger Maker Name Role Phone Salina Doherty MD Unavailable [phone] Carrillo Ware APRN MICA MACHINE OPERATOR Unavailable SolitarioAngelica golden NP Unavailable [phone] Nelson Arroyo PA-C Unavailable Nelson Arroyo PA-C Primary Care Provider Chinyere Barbour Unavailable Unavailable Nelson Arroyo PA-C Unavailable [phone] Pietro Wills MD Unavailable Tank Bucio MD Unavailable [phone] Reason for Visit * Reason Onset Date Comments Refill Request 04/05/2019 Encounter Details Date Type Department Care Team (Late st Contact Info) Description 04/05/[address] [facility] [address] [place] [address], [address] [place] [address] Nelson Arroyo PA-C [address] [place] [address] Refill Request Social History Tobacco [...] PM CDT Legal Sex Female 3:44 AM BIZTALK ARCHITECT Gender Identity Female 10/03/2020 8:33 PM CDT Sexual Orientation Straight 07/01/2018 3: 40 PM BIZTALK ARCHITECT documented as of this encounter Plan of Treatment Not on file documented as of this encounter Visit Diagnoses Diagnosis Muscle spasm Spasm of muscle Cervicalgia documented in this encounter Additional Health Concerns Assessment Noted Time PHQ-9 Depression Total Score: 10 019 2:36 PM CDT documented as of this encounter Care Teams Sagger Maker Relationship Specialty Start Date End Date Nelson Arroyo PA-C [address] [place], [place] [id number] PCP - General Physician Shop Firer/Fireman - Medical 08/06/18 Salina Doherty MD Internal Medicine 12/01/14 Carrillo Ware APRN MICA MACHINE OPERATOR [address] [place] [address] Nurse Practitioner Nurse Practitioner 12/16/14 Angelica Jerez NP [place] [address] [place], [place] [address] Nurse Practitioner Nurse Practitioner - Family 07/12/16 Nelson Arroyo PA-C [address] [place] [address] Assigned PCP 07/05/18 07/29/20 Chinyere Barbour Personal Advocate & Liaison (PAL) 01/31/20 04/26/20 Nelson Arroyo PA-C [address] [place] [address] Assigned PCP 07/30/20 Pietro Wills MD [address] [address] Assigned Heart and Vascular Provider 12/14/22 06/26/24 Tank Bucio MD [address] [facility], [address] [address] Physician jewel bearing turner 12/01/23 documented as of this encounter
--- OUTSIDE RECORDS SUMMARY | 2024-07-20 16:36 | XMS_ITS | Encounter Summary ---
Author Organization [facility] Address [address] [place] [address] Care Team Providers Care Phototypesetter Operator Name Role Phone Salina Doherty MD Unavailable [phone] Carrillo Ware APRN HOME HEALTH ATTENDANT Unavailable SolitarioAngelica golden NP Unavailable [phone] Nelson Arroyo PA-C Unavailable [phone] Nelson Arroyo PA-C Primary Care Provider Chinyere Barbour Unavailable Unavailable Nelson Arroyo PA-C Unavailable [phone] Pietro Wills MD Unavailable [phone] Tank Bucio MD Unavailable [phone] Encounter Details Date Type Department Care Team (Late st Contact Info) Description 06/23/2019 MyC Medical Advice [facility] [address] [place] [address], [address] [place] [address] Ashely Younger, [facility] Social History Tobacco Use Types Packs/Day Years [...] PM CDT Legal Sex Female 3:44 AM AT HOME INDEPENDENT CALL CENTER AGENT Gender Identity Female 10/03/2020 8:33 PM CDT Sexual Orientation Straight 07/01/2018 3: 40 PM AT HOME INDEPENDENT CALL CENTER AGENT documented as of this encounter Plan of Treatment Not on file documented as of this encounter Visit Diagnoses Not on filedocumented in this encounter Additional Health Concerns Assessment Noted Time PHQ-9 Depression Total Score: 10 019 2:36 PM CDT documented as of this encounter Care Teams Phototypesetter Operator Relationship Specialty Start Date End Date Nelson Arroyo PA-C [address] [address] PCP - General Physician Technical Writer And Editor - Medical 08/06/18 Salina Doehrty MD Internal Medicine 12/01/14 Carrillo Ware APRN HOME HEALTH ATTENDANT [address] [place] [address] Nurse Practitioner Nurse Practitioner 12/16/14 Angelica Jerez NP [address] [address] Nurse Practitioner Nurse Practitioner - Family 07/12/16 Nelson Arroyo PA-C [address] [address] Assigned PCP 07/05/18 07/29/20 Chinyere Barbour Personal Advocate & Liaison (PAL) 01/31/20 04/26/20 Nelson Arroyo PA-C [address] [address] Assigned PCP 07/30/20 Pietro Wills MD [address] [place] [address] Assigned Heart and Vascular Provider 12/14/22 06/26/24 Tank Bucio MD [address] [facility] [address] [place] [address] Physician proposal lead writer 12/01/23 documented as of this encounter
--- OUTSIDE RECORDS SUMMARY | 2024-07-20 16:36 | XMS_ITS | Encounter Summary ---
Author Organization [facility] Address [address] [place] [address]. [place] [address] Care Team Providers Care Head Cook Name Role Phone Salina Doherty MD Unavailable [phone] Carrillo Ware APRN VIDEO PRODUCTION INTERN Unavailable SolitarioAngelica golden NP Unavailable [phone] Nelson Arroyo PA-C Unavailable Nelson Arroyo PA-C Primary Care Provider Chinyere Barbour Unavailable Unavailable Nelson Arroyo PA-C Unavailable Pietro Wills MD Unavailable Tank Bucio MD Unavailable Reason for Visit * Reason Onset Date Comments Refill Request 07/14/2019 Encounter Details Date Type Department Care Team (Late st Contact Info) Description 07/14/[address] [facility] [address] [facility], [address] [place] [address] Nelson Arroyo PA-C [address] [place] [address] Refill Request Social History Tobacco [...] PM CDT Legal Sex Female 3:44 AM PROCESS DESIGN CHEMICAL ENGINEER Gender Identity Female 10/03/2020 8:33 PM CDT Sexual Orientation Straight 07/01/2018 3: 40 PM PROCESS DESIGN CHEMICAL ENGINEER documented as of this encounter Miscellaneous Notes * Telephone Encounter - Blanca Baker - 07/15/2019 7:56 AM CDT [employer] message sent Blanca Baker/ Shift Mechanic * Telephone Encounter - Nelson Arroyo PA-C [...] Depression Total Score: 10 020 3:04 PM PROCESS DESIGN CHEMICAL ENGINEER documented as of this encounter Care Teams Head Cook Relationship Specialty Start Date End Date Nelson Arroyo PA-C [address] [place] [address] PCP - General Physician Choir Leader - Medical 08/06/18 Salina Doherty MD Internal Medicine 12/01/14 Carrillo Ware APRN VIDEO PRODUCTION INTERN [address] [place] [address] Nurse Practitioner Nurse Practitioner 12/16/14 Angelica Jerez NP [facility] [address] [place] [address] Nurse Practitioner Nurse Practitioner - Family 07/12/16 Nelson Arroyo PA-C [address] [place] [address] Assigned PCP 07/05/18 07/29/20 Chinyere Barbour Personal Advocate & Liaison (PAL) 01/31/20 04/26/20 Nelson Arroyo PA-C [address] [place] [place] [address] Assigned PCP 07/30/20 Pietro Wills MD [address] [place] [address] Assigned Heart and Vascular Provider 12/14/22 06/26/24 Tank Bucio MD [address] [facility], [address] [address] Physician wax cutter 12/01/23 documented as of this encounter
--- OUTSIDE RECORDS SUMMARY | 2024-07-20 16:36 | XMS_ITS | Encounter Summary ---
Author Organization [facility] Address [address] [place] [address] Care Team Providers Care Planner Name Role Phone Salina Doherty MD Unavailable [phone] Carrillo Ware APRN DIVISION TRAFFIC SUPERINTENDENT Unavailable SolitarioAneglica golden NP Unavailable [phone] Nelson Arroyo PA-C Unavailable [phone] Nelson Arroyo PA-C Primary Care Provider [phone] Chinyere Barbour Unavailable Unavailable Nelson Arroyo PA-C Unavailable [phone] Pietro Wills MD Unavailable [phone] Tank Bucio MD Unavailable [phone] Encounter Details Date Type Department Care Team (Late st Contact Info) Description 11/12/[address] [facility] Medical Advice [address] [address] Blanca Baker Social History Tobacco [...] PM CDT Legal Sex Female 3:44 AM VEHICLE SAFETY INSPECTOR Gender Identity Female 10/03/2020 8:33 PM CDT Sexual Orientation Straight 07/01/2018 3: 40 PM VEHICLE SAFETY INSPECTOR documented as of this encounter Plan of Treatment Not on file documented as of this encounter Visit Diagnoses Not on filedocumented in this encounter Additional Health Concerns Assessment Noted Time PHQ-9 Depression Total Score: 7 09/29/19 20 7:04 AM CDT documented as of this encounter Care Teams Planner Relationship Specialty Start Date End Date Nelson Arroyo PA-C [address] [address] PCP - General Physician Waste Disposal Plant Operator - Medical 08/06/18 Salina Doherty MD Internal Medicine 12/01/14 Carrillo Ware APRN DIVISION TRAFFIC SUPERINTENDENT [address] [place] [address] Nurse Practitioner Nurse Practitioner 12/16/14 Angelica Jerez NP [address] [address] Nurse Practitioner Nurse Practitioner - Family 07/12/16 Nelson Arroyo PA-C [address] [address] Assigned PCP 07/05/18 07/29/20 Chinyere Barbour Personal Advocate & Liaison (PAL) 01/31/20 04/26/20 Nelson Arroyo PA-C [address] [address] Assigned PCP 07/30/20 Pietro Wills MD [address] [address] Assigned Heart and Vascular Provider 12/14/22 06/26/24 Tank Bucio MD [address] [facility] [address] [place] [address] Physician brake mechanic 12/01/23 documented as of this encounter
--- OUTSIDE RECORDS SUMMARY | 2024-07-20 16:36 | XMS_ITS | Encounter Summary ---
Author Organization [facility] Address [address] [place] [address]. [place] [address] Care Team Providers Care Laundry Press Operator Name Role Phone Salina Doherty MD Unavailable Carrillo Ware APRN ROTARY FILTER OPERATOR Unavailable SolitarioAngelica golden NP Unavailable [phone] Nelson Arroyo PA-C Primary Care Provider Nelson Arroyo PA-C Unavailable [phone] Pietro Wills MD Unavailable Tank Bucio MD Unavailable [phone] Encounter Details Date Type Department Care Team (Late st Contact Info) Description 06/26/2022 MyC Medical Advice [facility] [address] [place] [address] Nelson Arroyo PA-C [address] [place] [address] Muscle spasm; Palpitations Social History [...] PM CDT Legal Sex Female 3:44 AM NURSING MANAGER Gender Identity Female 10/03/2020 8:33 PM CDT Sexual Orientation Straight 07/01/2018 3: 40 PM NURSING MANAGER documented as of this encounter Miscellaneous Notes * Telephone Encounter - Amanda Unger - 06/28/2022 7:52 AM CST Patient is scheduled for 08/15 with PCP ING MANAGER * Telephone Encounter - Nelson Arroyo PA-C - 06/27/2022 2:51 PM NURSING MANAGER I [facility] If I'm wrong I apologize. I do need to seeher for an appointment however as it has been a long while! Nelson ING MANAGER * Telephone Encounter - Ashely Naylor RN - 06/27/2022 7:41 AM CST Routing refill request to provider for review/approval because: Drug not on the [facility] refill protocol ING MANAGER documented in this encounter Plan of Treatment Not on file documented as of this encounter Visit Diagnoses Diagnosis Muscle spasm Spasm of muscle Palpitations documented in this encounter Additional Health Concerns Assessment Noted Time PHQ-9 Depression Total Score: 7 10/23/19 22 11:44 AM CDT documented as of this encounter Care Teams Laundry Press Operator Relationship Specialty Start Date End Date Nelson Arroyo PA-C [address] [address] PCP - General Physician Pattern Attendant - Medical 08/06/18 Salina Doherty MD Internal Medicine 12/01/14 Carrillo Ware APRN ROTARY FILTER OPERATOR [address] [place] [address] Nurse Practitioner Nurse Practitioner 12/16/14 Angelica Jerez NP [facility] [address] [place], [place] [address] Nurse Practitioner Nurse Practitioner - Family 07/12/16 Nelson Arroyo PA-C [address] [place] [address] Assigned PCP 07/30/20 Pietro Wills MD [address] [place] [address] Assigned Heart and Vascular Provider 12/14/22 06/26/24 Tank Bucio MD [address] [facility], [address] [address] Physician counter manager 12/01/23 documented as of this encounter
--- OUTSIDE RECORDS SUMMARY | 2024-07-20 16:36 | XMS_ITS | Encounter Summary ---
Author Organization [place] Address [address] [place] [address]. [place] [address] Care Team Providers Care Director Of Software Development Name Role Phone Salina Doherty MD Unavailable [phone] Carrillo Ware APRN LOCKSTITCH WAISTBAND SETTER Unavailable SolitarioAngelica golden NP Unavailable [phone] Nelson Arroyo PA-C Primary Care Provider Nelson Arroyo PA-C Unavailable [phone] Pietro Wills MD Unavailable Tank Bucio MD Unavailable Reason for Visit * Reason Comments Medication Refill Encounter Details Date Type Department Care Team (Late st Contact Info) Description 06/15/2022 Refill [facility] [address] [place] [address] Nelson Arroyo PA-C [address] [place] [address] Medication Refill Social History Tobacco [...] PM CDT Legal Sex Female 3:44 AM PIER HAND Gender Identity Female 10/03/2020 8:33 PM CDT Sexual Orientation Straight 07/01/2018 3: 40 PM PIER HAND documented as of this encounter Miscellaneous Notes * Telephone Encounter - Nelson Arroyo PA-C - 06/19/2022 10:50 AM PIER HAND I think she established care elsewhere. Nelson HAND * Telephone Encounter - Ashely Naylor RN - 06/16/2022 3:17 PM CST Routing refill request to provider for review/approval because: Drug not on the [facility] refill protocol HAND documented in this encounter Plan of Treatment Not on file documented as of this encounter Visit Diagnoses Diagnosis Muscle spasm Spasm of muscle documented in this encounter Additional Health Concerns Assessment Noted Time PHQ-9 Depression Total Score: 7 10/23/19 22 11:44 AM CDT documented as of this encounter Care Teams Director Of Software Development Relationship Specialty Start Date End Date Nelson Arroyo PA-C [address] [place] [address] PCP - General Physician Commercial Hvac Service Technician - Medical 08/06/18 Salina Doherty MD Internal Medicine 12/01/14 Carrillo Ware APRN LOCKSTITCH WAISTBAND SETTER [address] [place] [address] Nurse Practitioner Nurse Practitioner 12/16/14 Angelica Jerez NP [address] [place] [address] Nurse Practitioner Nurse Practitioner - Family 07/12/16 Nelson Arroyo PA-C [address] [place] [address] Assigned PCP 07/30/20 Pietro Wills MD [address] [place] [address] Assigned Heart and Vascular Provider 12/14/22 06/26/24 Tank Bucio MD [address] [facility] [address] [place] [address] Physician dealer development manager 12/01/23 documented as of this encounter
--- OUTSIDE RECORDS SUMMARY | 2024-07-20 16:36 | XMS_ITS | Encounter Summary ---
Author Organization [place] Address [address] [place] [address] Care Team Providers Care Supervisor Taping Name Role Phone Salina Doherty MD Unavailable [phone] Carrillo Ware APRN HIGH DENSITY TALC COATER OPERATOR Unavailable SolitarioAngelica golden NP Unavailable [phone] Nelson Arroyo PA-C Unavailable [phone] Nelson Arroyo PA-C Primary Care Provider Chinyere Barbour Unavailable Unavailable Nelson Arroyo PA-C Unavailable [phone] Pietro Wills MD Unavailable [phone] Tank Bucio MD Unavailable [phone] Encounter Details Date Type Department Care Team (Late st Contact Info) Description 09/20/2019 MyC Medical Advice [address] [address] Blanca Baker Social History Tobacco [...] CDT Legal Sex Female 3:44 AM CORE SHAPER TOP Gender Identity Female 10/03/2020 8:33 PM CDT Sexual Orientation Straight 07/01/2018 3: 40 PM CORE SHAPER TOP documented as of this encounter Plan of Treatment Not on file documented as of this encounter Visit Diagnoses Not on filedocumented in this encounter Additional Health Concerns Assessment Noted Time PHQ-9 Depression Total Score: 7 09/29/19 20 7:04 AM CDT documented as of this encounter Care Teams Supervisor Taping Relationship Specialty Start Date End Date Nelson Arroyo PA-C [address] [address] PCP - General Physician Freelance Copywriter - Medical 08/06/18 Salina Doherty MD Internal Medicine 12/01/14 Carrillo Ware APRN HIGH DENSITY TALC COATER OPERATOR [address] [place] [address] Nurse Practitioner Nurse Practitioner 12/16/14 Angelica Jerez NP [address] [address] Nurse Practitioner Nurse Practitioner - Family 07/12/16 Nelson Arroyo PA-C [address] [address] Assigned PCP 07/05/18 07/29/20 Chinyere Barbour Personal Advocate & Liaison (PAL) 01/31/20 04/26/20 Nelson Arroyo PA-C [address] [address] Assigned PCP 07/30/20 Pietro Wills MD [address] [address] Assigned Heart and Vascular Provider 12/14/22 06/26/24 Tank Bucio MD [address] [facility] [address] [place] [address] Physician manager of international 12/01/23 documented as of this encounter
[2024-07-20 16:37] VITALS: BP 128/79; PULSE 91; RESP 16; TEMP 37.1; O2SAT 99; BMI 33.1
--- OUTSIDE RECORDS SUMMARY | 2024-07-20 16:37 | XMS_ITS | Encounter Summary ---
Author Organization [facility] Address [address] [place] [address]. [place] [address] Care Team Providers Care Production Superintendent Name Role Phone Salina Doherty MD Unavailable [phone] Carrillo Ware APRN CORE STICKER Unavailable SolitarioAngelica golden NP Unavailable [phone] Nelson Arroyo PA-C Unavailable [phone] Nelson Arroyo PA-C Primary Care Provider Chinyere Barbour Unavailable Unavailable Nelson Arroyo PA-C Unavailable [phone] Pietro Wills MD Unavailable [phone] Tank Bucio MD Unavailable [phone] Reason for Visit * Reason Onset Date Comments Refill Request 12/18/2018 Encounter Details Date Type Department Care Team (Late st Contact Info) Description 12/18/[address] [facility] & Addiction [address] [place] [address] Nelson Arroyo PA-C [address] [place] [address] Refill Request Social History Tobacco [...] PM CDT Legal Sex Female 3:44 AM THREAD WEAVER Gender Identity Female 10/03/2020 8:33 PM CDT Sexual Orientation Straight 07/01/2018 3: 40 PM THREAD WEAVER documented as of this encounter Plan of Treatment Not on file documented as of this encounter 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), predominantly inattentive type documented in this encounter Additional Health Concerns Assessment Noted Time PHQ-9 Depression Total Score: 7 10/23/19 19 11:12 AM CDT documented as of this encounter Care Teams Production Superintendent Relationship Specialty Start Date End Date Nelson Arroyo PA-C [address] [place] [address] PCP - General Physician Mash Tub Cooker Operator - Medical 08/06/18 Salina Doherty MD Internal Medicine 12/01/14 Carrillo Ware APRN CORE STICKER [address] [place] [address] Nurse Practitioner Nurse Practitioner 12/16/14 Angelica Jerez NP [place] [address] [place], [place] [address] Nurse Practitioner Nurse Practitioner - Family 07/12/16 Nelson Arroyo PA-C [address] [address] Assigned PCP 07/05/18 07/29/20 Chinyere Barbour Personal Advocate & Liaison (PAL) 01/31/20 04/26/20 Nelson Arroyo PA-C [address] [place] [address] Assigned PCP 07/30/20 Pietro Wills MD [address] [place] [address] Assigned Heart and Vascular Provider 12/14/22 06/26/24 Tank Bucio MD [address], [facility] [address] [place] [address] Physician relay assembler 12/01/23 documented as of this encounter
--- OUTSIDE RECORDS SUMMARY | 2024-07-20 16:37 | XMS_ITS | Encounter Summary ---
Author Organization [facility] Address [address] [place] [address]. [place] [address] Care Team Providers Care Retail Commission Sales Associate Name Role Phone Salina Doherty MD Unavailable [phone] Carrillo Ware APRN AUTOMOTIVE ENGINEERING TEACHER Unavailable SolitarioAngelica golden NP Unavailable [phone] Nelson Arroyo PA-C Unavailable Nelson Arroyo PA-C Primary Care Provider Chinyere Barbour Unavailable Unavailable Nelson Arroyo PA-C Unavailable Pietro Wills MD Unavailable Tank Bucio MD Unavailable Reason for Visit * Reason Onset Date Comments Lab Only 08/03/2019 Encounter Details Date Type Department Care Team (Late st Contact Info) Description 08/03/2019 MyC Medical Advice [employer] [address] [facility], [address] [place] [address] Nelson Arroyo PA-C [address] [place] [address] Lab Only Social History Tobacco [...] PM CDT Legal Sex Female 3:44 AM FAA CERTIFIED POWERPLANT MECHANIC Gender Identity Female 10/03/2020 8:33 PM CDT Sexual Orientation Straight 07/01/2018 3: 40 PM FAA CERTIFIED POWERPLANT MECHANIC documented as of this encounter Plan of Treatment Not on file documented as of this encounter Visit Diagnoses Not on filedocumented in this encounter Additional Health Concerns Assessment Noted Time PHQ-9 Depression Total Score: 10 020 3:04 PM FAA CERTIFIED POWERPLANT MECHANIC documented as of this encounter Care Teams Retail Commission Sales Associate Relationship Specialty Start Date End Date Nelson Arroyo PA-C [address] [place] [address] PCP - General Physician Drapery Hand - Medical 08/06/18 Salina Doherty MD Internal Medicine 12/01/14 Carrillo Ware APRN AUTOMOTIVE ENGINEERING TEACHER [address] [place] [address] Nurse Practitioner Nurse Practitioner 12/16/14 Angelica Jerez NP [place] [address] [place] [address] Nurse Practitioner Nurse Practitioner - Family 07/12/16 Nelson Arroyo PA-C [address] [place] [address] Assigned PCP 07/05/18 07/29/20 Chinyere Barbour Personal Advocate & Liaison (PAL) 01/31/20 04/26/20 Nelson Arroyo PA-C [address] [place] [address] Assigned PCP 07/30/20 Pietro Wills MD [address] [place] [address] Assigned Heart and Vascular Provider 12/14/22 06/26/24 Tank Bucio MD [address] [facility], [facility] 100 [place] [address] Physician skill training program coordinator 12/01/23 documented as of this encounter
--- OUTSIDE RECORDS SUMMARY | 2024-07-20 16:37 | XMS_ITS | Encounter Summary ---
Author Organization [place] Address [address] [place] [address] Care Team Providers Care Director Aeronautics Commission Name Role Phone Salina Doherty MD Unavailable Carrillo Ware APRN TRUCK PACKER Unavailable [phone] SolitarioAngelica golden NP Unavailable [phone] Nelson Arroyo PA-C Primary Care Provider [phone] Nelson Arroyo PA-C Unavailable [phone] Pietro Wills MD Unavailable Tank Bucio MD Unavailable Encounter Details Date Type Department Care Team (Late st Contact Info) Description 01/24/2022 Telephone [facility] Behavioral Health Intake [address] [place] [id number] Generic, Behavioral Intake, Social History Tobacco [...] PM CDT Legal Sex Female 3:44 AM PLASTIC FINISHER Gender Identity Female 10/03/2020 8:33 PM CDT Sexual Orientation Straight 07/01/2018 3: 40 PM PLASTIC FINISHER documented as of this encounter Miscellaneous Notes * Telephone Encounter - Jacqueline Collado - 01/24/2022 3:27 PM CDT ----- Message from Trang Ayala [facility] sent at 01/24/2022 3:15 PM CDT ----- [...] as of this encounter Care Teams Director Aeronautics Commission Relationship Specialty Start Date End Date Nelson Arroyo PA-C [address] [place] [address] PCP - General Physician Soldering Machine Tender - Medical 08/06/18 Salina Doherty MD Internal Medicine 12/01/14 Carrillo Ware APRN TRUCK PACKER [address] [place] [address] Nurse Practitioner Nurse Practitioner 12/16/14 Angelica Jerez NP [address] [address] Nurse Practitioner Nurse Practitioner - Family 07/12/16 Nelson Arroyo PA-C [address] [place] [address] Assigned PCP 07/30/20 Pietro Wills MD [address] [place] [address] Assigned Heart and Vascular Provider 12/14/22 06/26/24 Tank Bucio MD [address] [place], [facility] 100 [place] [address] Physician stone banker 12/01/23 documented as of this encounter
--- OUTSIDE RECORDS SUMMARY | 2024-07-20 16:37 | XMS_ITS | Encounter Summary ---
Author Organization [place] Address [address] [place] [address] Care Team Providers Care Geospatial Image Analyst Name Role Phone Salina Doherty MD Unavailable [phone] Carrillo Ware APRN OPENSTACK CLOUD CONSULTING ARCHITECT Unavailable [phone] SolitarioAngelica golden NP Unavailable [phone] Nelson Arroyo PA-C Primary Care Provider Nelson Arroyo PA-C Unavailable [phone] Pietro Wills MD Unavailable Tank Bucio MD Unavailable Encounter Details Date Type Department Care Team (Late st Contact Info) Description 02/13/2022 [facility] Medical Advice [facility] Services [address] [facility] [address] [place] [address] Yodit Alexis, [facility] [address] [place] [address] Social History Tobacco Use Types [...] PM CDT Legal Sex Female 3:44 AM SHOW OPERATIONS SUPERVISOR Gender Identity Female 10/03/2020 8:33 PM CDT Sexual Orientation Straight 07/01/2018 3: 40 PM SHOW OPERATIONS SUPERVISOR documented as of this encounter Plan of Treatment Not on file documented as of this encounter Visit Diagnoses Not on filedocumented in this encounter Additional Health Concerns Assessment Noted Time PHQ-9 Depression Total Score: 7 10/23/19 22 11:44 AM CDT documented as of this encounter Care Teams Geospatial Image Analyst Relationship Specialty Start Date End Date Nelson Arroyo PA-C [address] [address] PCP - General Physician Manager Cable - Medical 08/06/18 Salina Doherty MD Internal Medicine 12/01/14 Carrillo Ware APRN OPENSTACK CLOUD CONSULTING ARCHITECT [address] [place] [place] [address] 868415 Nurse Practitioner Nurse Practitioner 12/16/14 Angelica Jerez NP [address] 3859[address] Nurse Practitioner Nurse Practitioner - Family 07/12/16 Nelson Arroyo PA-C [address] [address] Assigned PCP 07/30/20 Pietro Wills MD [address] [address] Assigned Heart and Vascular Provider 12/14/22 06/26/24 Tank Bucio MD [address] [facility] 100 [place] [address] Physician cable mock up assembler 12/01/23 documented as of this encounter
--- OUTSIDE RECORDS SUMMARY | 2024-07-20 16:37 | XMS_ITS | Encounter Summary ---
Author Organization [facility] Address [address] [place] [address] Care Team Providers Care Brake Adjuster Name Role Phone Salina Doherty MD Unavailable [phone] Carrillo Ware APRN STUDENT SERVICES DIRECTOR Unavailable SolitarioAngelica golden NP Unavailable [phone] Nelson Arroyo PA-C Unavailable [phone] Nelson Arroyo PA-C Primary Care Provider [phone] Chinyere Barbour Unavailable Unavailable Nelson Arroyo PA-C Unavailable [phone] Pietro Wills MD Unavailable [phone] Tank Bucio MD Unavailable [phone] Encounter Details Date Type Department Care Team (Late st Contact Info) Description 09/06/2019 MyC Medical Advice [address] [address] Blanca Baker Social History Tobacco [...] PM CDT Legal Sex Female 3:44 AM MINE EXPLORATION ENGINEER Gender Identity Female 10/03/2020 8:33 PM CDT Sexual Orientation Straight 07/01/2018 3: 40 PM MINE EXPLORATION ENGINEER documented as of this encounter Plan of Treatment Not on file documented as of this encounter Visit Diagnoses Not on filedocumented in this encounter Additional Health Concerns Assessment Noted Time PHQ-9 Depression Total Score: 10 020 3:04 PM MINE EXPLORATION ENGINEER documented as of this encounter Care Teams Brake Adjuster Relationship Specialty Start Date End Date Nelson Arroyo PA-C [address] [address] PCP - General Physician Dike Supervisor - Medical 08/06/18 Salina Doherty MD Internal Medicine 12/01/14 Carrillo Ware APRN STUDENT SERVICES DIRECTOR [address] [place] [address] Nurse Practitioner Nurse Practitioner 12/16/14 Angelica Jerez NP [address] [address] Nurse Practitioner Nurse Practitioner - Family 07/12/16 Nelson Arroyo PA-C [address] [address] Assigned PCP 07/05/18 07/29/20 Chinyere Barbour Personal Advocate & Liaison (PAL) 01/31/20 04/26/20 Nelson Arroyo PA-C [address] [address] Assigned PCP 07/30/20 Pietro Wills MD [address] [address] Assigned Heart and Vascular Provider 12/14/22 06/26/24 Tank Bucio MD [address] [facility] 100 [place] [address] Physician hot tar roofer 12/01/23 documented as of this encounter
--- OUTSIDE RECORDS SUMMARY | 2024-07-20 16:37 | XMS_ITS | Encounter Summary ---
Author Organization [facility] Address [address] [place] [address]. [place] [address] Care Team Providers Care Training Program Developer Name Role Phone Salina Doherty MD Unavailable [phone] Carrillo Ware APRN FLOWER CUTTER Unavailable SolitarioAngelica golden NP Unavailable [phone] Nelson Arroyo PA-C Unavailable Nelson Arroyo PA-C Primary Care Provider [phone] Chinyere Barbour Unavailable Unavailable Nelson Arroyo PA-C Unavailable [phone] Pietro Wills MD Unavailable Tank Bucio MD Unavailable Reason for Visit * Reason Onset Date Comments Medication Refill 12/03/2018 methocarbamol, clonazePAM, and traZODone Encounter Details Date Type Department Care Team (Late st Contact Info) Description 12/02/2018 Refill [place] [address] [facility], [address] [place] [address] Nelson Arroyo PA-C [address] [place] [address] Medication Refill (methocarbamol, clonazePAM, and [...] PM CDT Legal Sex Female 3:44 AM VARNISHING UNIT TOOL SETTER Gender Identity Female 10/03/2020 8:33 PM CDT Sexual Orientation Straight 07/01/2018 3: 40 PM VARNISHING UNIT TOOL SETTER documented as of this encounter Miscellaneous [...] # refills: 0 Last Office Visit with [facility] or [facility] prescribing provider: 08/06/2018 Future Office Visit: There is no refill protocol information for this order clonazePAM (KLONOPIN) 0.5 MG tablet Sig - Route: Take 1 tablet (0.5 mg) by mouth daily as needed for anxiety - Oral Last Written Prescription Date: 10/28/18 Last Fill Quantity: 30, # refills: 0 Last Office Visit with [facility] or [facility] prescribing provider: 08/06/2018 Routing refill request to provider for review/approval because: Drug not on the [facility] or [facility] refill protocol or controlled substance ??? traZODone [...] documented as of this encounter Care Teams Training Program Developer Relationship Specialty Start Date End Date Nelson Arroyo PA-C [address] [address] PCP - General Physician Electrical And Instrumentation Mechanic - Medical 08/06/18 Salina Doherty MD Internal Medicine 12/01/14 Carrillo Ware APRN FLOWER CUTTER [address] [place] [address]57[address] Nurse Practitioner Nurse Practitioner 12/16/14 Angelica Jerez NP [address] [address] Nurse Practitioner Nurse Practitioner - Family 07/12/16 Nelson Arroyo PA-C [address] [address] Assigned PCP 07/05/18 07/29/20 Chinyere Barbour Personal Advocate & Liaison (PAL) 01/31/20 04/26/20 Nelson Arroyo PA-C [address] [address] Assigned PCP 07/30/20 Pietro Wills MD [address] [place] [address] Assigned Heart and Vascular Provider 12/14/22 06/26/24 Tank Bucio MD [address] [facility], [facility] 100 [place] [address] Physician manager research 12/01/23 documented as of this encounter
--- OUTSIDE RECORDS SUMMARY | 2024-07-20 16:37 | XMS_ITS | Encounter Summary ---
Author Organization [facility] Address [address] [place] [address]. [place] [address] Care Team Providers Care Salesperson Burial Needs Name Role Phone Salina Doherty MD Unavailable Carrillo Ware APRN LICENSED NURSING ASSISTANT Unavailable SolitarioAngelica golden NP Unavailable Nelson Arroyo PA-C Primary Care Provider Nelson Arroyo PA-C Unavailable Pietro Wills MD Unavailable [phone] Tank Bucio MD Unavailable Reason for Visit * Reason Onset Date Comments Refill Request 12/10/2021 Encounter Details Date Type Department Care Team (Late st Contact Info) Description 12/10/2021 MyC Refill [facility] [address] [place] [address] Nelson Arroyo PA-C [address] [place] [address] Refill Request Social History Tobacco [...] PM CDT Legal Sex Female 3:44 AM PLANER FEEDER Gender Identity Female 10/03/2020 8:33 PM CDT Sexual Orientation Straight 07/01/2018 3: 40 PM PLANER FEEDER documented as of this encounter Plan of Treatment Not on file documented as of this encounter Visit Diagnoses Diagnosis Generalized anxiety disorder documented in this encounter Additional Health Concerns Assessment Noted Time PHQ-9 Depression Total Score: 7 10/23/19 22 11:44 AM CDT documented as of this encounter Care Teams Salesperson Burial Needs Relationship Specialty Start Date End Date Nelson Arroyo PA-C [address] [place] [address] PCP - General Physician Teasel Gig Operator - Medical 08/06/18 Salina Doherty MD Internal Medicine 12/01/14 Carrillo Ware APRN LICENSED NURSING ASSISTANT [address] [place] [address] Nurse Practitioner Nurse Practitioner 12/16/14 Angelica Jerez NP [place] [address] [place], [place] 498747 Nurse Practitioner Nurse Practitioner - Family 07/12/16 Nelson Arroyo PA-C [address] [address] Assigned PCP 07/30/20 Pietro Wills MD [address] 2096[address] Assigned Heart and Vascular Provider 12/14/22 06/26/24 Tank Bucio MD [address], [address] [address] Physician conveyor tender 12/01/23 documented as of this encounter
--- OUTSIDE RECORDS SUMMARY | 2024-07-20 16:37 | XMS_ITS | Encounter Summary ---
Author Organization [facility] Address [address] [place] [address] Care Team Providers Care Hall Clerk Name Role Phone Salina Doherty MD Unavailable [phone] Carrillo Ware APRN GRAVE CLEANER Unavailable SolitarioAngelica golden NP Unavailable [phone] Nelson Arroyo PA-C Unavailable [phone] Nelson Arroyo PA-C Primary Care Provider [phone] Chinyere Barbour Unavailable Unavailable Nelson Arroyo PA-C Unavailable [phone] Pietro Wills MD Unavailable [phone] Tank Bucio MD Unavailable [phone] Encounter Details Date Type Department Care Team (Late st Contact Info) Description 10/27/2018 MyC Medical Advice [address], [address] [place] [address] Lexi Reina, RN Social History [...] CDT Legal Sex Female 3:44 AM LEAD BI DEVELOPER Gender Identity Female 10/03/2020 8:33 PM CDT Sexual Orientation Straight 07/01/2018 3: 40 PM LEAD BI DEVELOPER documented as of this encounter Plan of Treatment Not on file documented as of this encounter Visit Diagnoses Not on filedocumented in this encounter Additional Health Concerns Assessment Noted Time PHQ-9 Depression Total Score: 7 10/23/19 19 11:12 AM CDT documented as of this encounter Care Teams Hall Clerk Relationship Specialty Start Date End Date Nelson Arroyo PA-C [address] [address] PCP - General Physician Clinical Psychologist Private Practice - Medical 08/06/18 Salina Doherty MD Internal Medicine 12/01/14 Carrillo Ware APRN GRAVE CLEANER [address] [place] [address] Nurse Practitioner Nurse Practitioner 12/16/14 Angelica Jerez NP [address] [address] Nurse Practitioner Nurse Practitioner - Family 07/12/16 Nelson Arroyo PA-C [address] [address] Assigned PCP 07/05/18 07/29/20 Chinyere Barbour Personal Advocate & Liaison (PAL) 01/31/20 04/26/20 Nelson Arroyo PA-C [address] [address] Assigned PCP 07/30/20 Pietro Wills MD [address] [place] [address] Assigned Heart and Vascular Provider 12/14/22 06/26/24 Tank Bucio MD [address] [facility], [facility] 100 [place] [address] Physician landscape architect and planner 12/01/23 documented as of this encounter
--- OUTSIDE RECORDS SUMMARY | 2024-07-20 16:37 | XMS_ITS | Encounter Summary ---
Author Organization [place] Address [address] [place] [address]. [place] [address] Care Team Providers Care Optical Assistant Name Role Phone Salina Doherty MD Unavailable [phone] Carrillo Ware APRN OPENER Unavailable SolitarioAngelica golden NP Unavailable [phone] Nelson Arroyo PA-C Unavailable Nelson Arroyo PA-C Primary Care Provider Chinyere Barbour Unavailable Unavailable Nelson Arroyo PA-C Unavailable Pietro Wills MD Unavailable Tank Bucio MD Unavailable Reason for Visit * Reason Comments Medication Refill Encounter Details Date Type Department Care Team (Late st Contact Info) Description 08/18/[address], [address] [place] [address] Nelson Arroyo PA-C [address] [place] [address] Medication Refill Social History Tobacco [...] PM CDT Legal Sex Female 3:44 AM EXECUTIVE SERVICES ADMINISTRATOR Gender Identity Female 10/03/2020 8:33 PM CDT Sexual Orientation Straight 07/01/2018 3: 40 PM EXECUTIVE SERVICES ADMINISTRATOR documented as of this encounter Miscellaneous Notes [...] 08/18/2019 4:12 PM CDT Prescription approved per [facility] Refill Protocol - Hydroxyzine Maude Singh RN documented in this encounter Plan of Treatment Not on file documented as of this encounter Visit Diagnoses Diagnosis Generalized anxiety disorder Persistent insomnia Persistent disorder of initiating or maintaining sleep documented in this encounter Additional Health Concerns Assessment Noted Time PHQ-9 Depression Total Score: 10 020 3:04 PM EXECUTIVE SERVICES ADMINISTRATOR documented as of this encounter Care Teams Optical Assistant Relationship Specialty Start Date End Date Nelson Arroyo PA-C [address] [place] [address] PCP - General Physician Director Of Operations For Therapy - Medical 08/06/18 Salina Doherty MD Internal Medicine 12/01/14 Carrillo Ware APRN OPENER [address] [place] [address] Nurse Practitioner Nurse Practitioner 12/16/14 Angelica Jerez INCOME TAX EXPERT [facility] [address] [place] [address] Nurse Practitioner Nurse Practitioner - Family 07/12/16 Nelson Arroyo PA-C [address] [place] [address] Assigned PCP 07/05/18 07/29/20 Chinyere Barbour Personal Advocate & Liaison (PAL) 01/31/20 04/26/20 Nelson Arroyo PA-C [address] [place] [id number] Assigned PCP 07/30/20 Pietro Wills MD [address] [place] [address] Assigned Heart and Vascular Provider 12/14/22 06/26/24 Tank Bucio MD [address] [place], [facility] 100 [place] [address] Physician campus rep 12/01/23 documented as of this encounter
--- OUTSIDE RECORDS SUMMARY | 2024-07-20 16:37 | XMS_ITS | Encounter Summary ---
Author Organization [facility] Address [address] [place] [address] Care Team Providers Care Vine Fruit Farming Supervisor Name Role Phone Salina Doherty MD Unavailable [phone] Carrillo Ware APRN PHARMACY INTAKE COORDINATOR Unavailable Hillary Unger MD Primary Care P rovider [facility] NP Unavailable [phone] Nelson Arroyo PA-C Unavailable [phone] Hillary Unger MD Unavailable Hillary Unger MD Unavailable Hillary Unger MD Unavailable Nelson Arroyo PA-C Unavailable [phone] Nelson Arroyo PA-C Primary Care Provider Chinyere Barbour Unavailable Unavailable Nelson Arroyo PA-C Unavailable [phone] Pietro Wills MD Unavailable [phone] Tank Bucio MD Unavailable [phone] Encounter Details Date Type Department Care Team (Late st Contact Info) Description 11/13/2016 [facility] Medical Advice [facility] Mental Health & Addiction [address] [place] [address] Solitario Angelica Gautam, ORNAMENTAL METAL WORKER [address] [place] [address] Social History Tobacco Use Types Packs/Day Years [...] PM CDT Legal Sex Female 3:44 AM VP RESEARCH Gender Identity Female 10/03/2020 8:33 PM CDT Sexual Orientation Straight 07/01/2018 3: 40 PM VP RESEARCH documented as of this encounter Plan of Treatment Not on file documented as of this encounter Visit Diagnoses Not on filedocumented in this encounter Additional Health Concerns Assessment Noted Time PHQ-9 Depression Total Score: 4 10/06/19 17 7:28 AM CDT documented as of this encounter Care Teams Vine Fruit Farming Supervisor Relationship Specialty Start Date End Date Hillary Unger MD [address] [place] [address] PCP - General Internal Medicine 08/21/15 08/05/18 Nelson Arroyo PA-C [address] [place] [address] PCP - Assigned PCP 04/12/18 05/02/18 Hillary Unger MD [address] [place] [address] PCP - Assigned PCP 02/01/18 04/11/18 Hillary Unger MD [address] [place] [address] PCP - Assigned PCP 05/03/18 07/07/18 Nelson Arroyo PA-C [address] [place] [address] PCP - General Physician Senior Portfolio Manager - Medical 08/06/18 Salina Doherty MD Internal Medicine 12/01/14 Carrillo Ware APRN PHARMACY INTAKE COORDINATOR [address] [place] [address] Nurse Practitioner Nurse Practitioner 12/16/14 Angelica Jerez ORNAMENTAL METAL WORKER [facility] [address] [place], [place] 3[address] Nurse Practitioner Nurse Practitioner - Family 07/12/16 Hillary Unger MD [address] [place] [address] Assigned PCP 05/03/18 07/18/18 Nelson Arroyo PA-C [address] [place] [address] Assigned PCP 07/05/18 07/29/20 Chinyere Barbour Personal Advocate & Liaison (PAL) 01/31/20 04/26/20 Nelson Arroyo PA-C [address] [place] [address] Assigned PCP 07/30/20 Pietro Wills MD [address] [place] [address] Assigned Heart and Vascular Provider 12/14/22 06/26/24 Tank Bucio MD [address] [place], [facility] 100 [place] [address] Physician operational meteorologist 12/01/23 documented as of this encounter
--- OUTSIDE RECORDS SUMMARY | 2024-07-20 16:37 | XMS_ITS | Encounter Summary ---
Author Organization [place] Address [address] [place] [address]. [place] [address] Care Team Providers Care Nuclear Monitoring Technician Name Role Phone Salina Doherty MD Unavailable Carrillo Ware APRN HOME MISSION WORKER Unavailable SolitarioAngelica golden NP Unavailable [phone] Nelson Arroyo PA-C Unavailable Nelson Arroyo PA-C Primary Care Provider Chinyere Barbour Unavailable Unavailable Nelson Arroyo PA-C Unavailable Pietro Wills MD Unavailable Tank Bucio MD Unavailable Encounter Details Date Type Department Care Team (Late st Contact Info) Description 01/12/2019 MyC Medical Advice [facility] [id number] [place] [address], [address] [place] [address] Nelson Arroyo PA-C [address] [place] [address] Social History Tobacco Use Types [...] PM CDT Legal Sex Female 3:44 AM CEMENTER HELPER Gender Identity Female 10/03/2020 8:33 PM CDT Sexual Orientation Straight 07/01/2018 3: 40 PM CEMENTER HELPER documented as of this encounter Plan of Treatment Not on file documented as of this encounter Visit Diagnoses Not on filedocumented in this encounter Additional Health Concerns Assessment Noted Time PHQ-9 Depression Total Score: 7 10/23/19 19 11:12 AM CDT documented as of this encounter Care Teams Nuclear Monitoring Technician Relationship Specialty Start Date End Date Nelson Arroyo PA-C [address] [place] [address] PCP - General Physician Executive Cyber Leader - Medical 08/06/18 Salina Doherty MD Internal Medicine 12/01/14 Carrillo Ware APRN CNP [address] [place] [address] Nurse Practitioner Nurse Practitioner 12/16/14 Angelica Jerez NP [address] 154037 Nurse Practitioner Nurse Practitioner - Family 07/12/16 Nelson Arroyo PA-C [address] [place] [address] Assigned PCP 07/05/18 07/29/20 Chinyere Barbour Personal Advocate & Liaison (PAL) 01/31/20 04/26/20 Nelson Arroyo PA-C [address] [place] [address] Assigned PCP 07/30/20 Pietro Wills MD [address] [place] [address] Assigned Heart and Vascular Provider 12/14/22 06/26/24 Tank Bucio MD [address], [facility] 100 [place] [address] Physician ball rolling machine operator 12/01/23 documented as of this encounter
--- OUTSIDE RECORDS SUMMARY | 2024-07-20 16:37 | XMS_ITS | Encounter Summary ---
Author Organization [place] Address [address] [place] [address]. [place] [address] Care Team Providers Care Registered Nurse Bone Marrow Transplant Name Role Phone Salina Doherty MD Unavailable Carrillo Ware APRN PACKAGE DYEING MACHINE OPERATOR Unavailable [phone] SolitarioAngelica golden NP Unavailable [phone] Nelson Arroyo PA-C Unavailable Nelson Arroyo PA-C Primary Care Provider Chinyere Barbour Unavailable Unavailable Nelson Arroyo PA-C Unavailable Pietro Wills MD Unavailable [phone] Tank Bucio MD Unavailable Encounter Details Date Type Department Care Team (Late st Contact Info) Description 12/27/2018 MyC Medical Advice [facility] [address] [place] [address], [address] [place] [address] Nelson Arroyo PA-C [address] [place] [address] Social History Tobacco Use Types [...] PM CDT Legal Sex Female 3:44 AM RELAY ASSOCIATE Gender Identity Female 10/03/2020 8:33 PM CDT Sexual Orientation Straight 07/01/2018 3: 40 PM RELAY ASSOCIATE documented as of this encounter Plan of Treatment Not on file documented as of this encounter Visit Diagnoses Not on filedocumented in this encounter Additional Health Concerns Assessment Noted Time PHQ-9 Depression Total Score: 7 10/23/19 19 11:12 AM CDT documented as of this encounter Care Teams Registered Nurse Bone Marrow Transplant Relationship Specialty Start Date End Date Nelson Arroyo PA-C [address] [place] [address] PCP - General Physician Business Practices Officer - Medical 08/06/18 Salina Doherty MD Internal Medicine 12/01/14 Carrillo Ware APRN CNP [address] [place] [address] Nurse Practitioner Nurse Practitioner 12/16/14 Angelica Jerez NP [address] 713947 Nurse Practitioner Nurse Practitioner - Family 07/12/16 Nelson Arroyo PA-C [address] [place] [address] Assigned PCP 07/05/18 07/29/20 Chinyere Barbour Personal Advocate & Liaison (PAL) 01/31/20 04/26/20 Nelson Arroyo PA-C [address] [place] [address] Assigned PCP 07/30/20 Pietro Wills MD [address] [place] [address] Assigned Heart and Vascular Provider 12/14/22 06/26/24 Tank Bucio MD [address], [facility] 100 [place] [address] Physician washer and capper machine operator 12/01/23 documented as of this encounter
--- OUTSIDE RECORDS SUMMARY | 2024-07-20 16:37 | XMS_ITS | Encounter Summary ---
Author Organization [place] Address [address] [place] [address] Care Team Providers Care Caddy Master Name Role Phone Salina Doherty MD Unavailable [phone] Carrillo Ware APRN CONTRACT SHELTERED WORKSHOP SUPERVISOR Unavailable [phone] SolitarioAngelica golden NP Unavailable [phone] Nelson Arroyo PA-C Unavailable [phone] Nelson Arroyo PA-C Primary Care Provider [phone] Chinyere Barbour Unavailable Unavailable Nelson Arroyo PA-C Unavailable [phone] Pietro Wills MD Unavailable [phone] Tank Bucio MD Unavailable [phone] Encounter Details Date Type Department Care Team (Late st Contact Info) Description 12/15/2018 MyC Medical Advice [address], [address] [place] [address] Tomasa Ramirez MA Social History [...] PM CDT Legal Sex Female 3:44 AM MARKETING DIRECTOR Gender Identity Female 10/03/2020 8:33 PM CDT Sexual Orientation Straight 07/01/2018 3: 40 PM MARKETING DIRECTOR documented as of this encounter Plan of Treatment Not on file documented as of this encounter Visit Diagnoses Not on filedocumented in this encounter Additional Health Concerns Assessment Noted Time PHQ-9 Depression Total Score: 7 10/23/19 19 11:12 AM CDT documented as of this encounter Care Teams Caddy Master Relationship Specialty Start Date End Date Nelson Arroyo PA-C [address] [address] PCP - General Physician Otolaryngology Nurse - Medical 08/06/18 Salina Doherty MD Internal Medicine 12/01/14 Carrillo Wrae APRN CONTRACT SHELTERED WORKSHOP SUPERVISOR [address] [place] [address] Nurse Practitioner Nurse Practitioner 12/16/14 Angelica Jerez NP [address] [address] Nurse Practitioner Nurse Practitioner - Family 07/12/16 Nelson Arroyo PA-C [address] [address] Assigned PCP 07/05/18 07/29/20 Chinyere Barbour Personal Advocate & Liaison (PAL) 01/31/20 04/26/20 Nelson Arroyo PA-C [address] [address] Assigned PCP 07/30/20 Pietro Wills MD [address] [place] [address] Assigned Heart and Vascular Provider 12/14/22 06/26/24 Tank Bucio MD [address] [facility] 100 [place] [address] Physician cloth cutting inspector 12/01/23 documented as of this encounter
--- OUTSIDE RECORDS SUMMARY | 2024-07-20 16:37 | XMS_ITS | Encounter Summary ---
Author Organization [place] Address [facility] [place] [address] Care Team Providers Care Roller Setter Name Role Phone Salina Doherty MD Unavailable [phone] Carrillo Ware APRN OWNER MANAGER Unavailable SolitarioAngelica golden NP Unavailable [phone] Nelson Arroyo PA-C Primary Care Provider Nelson Arroyo PA-C Unavailable [phone] Pietro Wills MD Unavailable [phone] Tank Bucio MD Unavailable [phone] Encounter Details Date Type Department Care Team (Late st Contact Info) Description 11/22/2021 [facility] Medical [facility] [address] [facility] [address] [place] [address] Sharifa [place] Social History Tobacco Use Types [...] PM CDT Legal Sex Female 3:44 AM MINING MANAGER Gender Identity Female 10/03/2020 8:33 PM CDT Sexual Orientation Straight 07/01/2018 3: 40 PM MINING MANAGER documented as of this encounter Plan of Treatment Not on file documented as of this encounter Visit Diagnoses Not on filedocumented in this encounter Additional Health Concerns Assessment Noted Time PHQ-9 Depression Total Score: 7 10/23/19 22 11:44 AM CDT documented as of this encounter Care Teams Roller Setter Relationship Specialty Start Date End Date Nelson Arroyo PA-C [address] [place] [address] PCP - General Physician Ged Tutor - Medical 08/06/18 Salina Doherty MD Internal Medicine 12/01/14 Carrillo Ware APRN OWNER MANAGER [address] [place] [address] 310215 Nurse Practitioner Nurse Practitioner 12/16/[address] [facility] [address] [place], [place] 9[address] Nurse Practitioner Nurse Practitioner - Family 07/12/16 Nelson Arroyo PA-C [address] [place] [address] Assigned PCP 07/30/20 Pietro Wills MD [address] [place] [address] Assigned Heart and Vascular Provider 12/14/22 06/26/24 Tank Bucio MD [address] 472507 Physician press washer 12/01/23 documented as of this encounter
--- OUTSIDE RECORDS SUMMARY | 2024-07-20 16:37 | XMS_ITS | Encounter Summary ---
Author Organization [place] Address [address] [place] [address]. [place] [address] Care Team Providers Care Brassiere Cup Mold Cutter Name Role Phone Salina Doherty MD Unavailable [phone] Carrillo Ware APRN BUSINESS PERFORMANCE ANALYST Unavailable SolitarioAngelica golden NP Unavailable [phone] Nelson Arroyo PA-C Primary Care Provider Nelson Arroyo PA-C Unavailable Pietro Wills MD Unavailable Tank Bucio MD Unavailable Reason for Visit * Reason Onset Date Comments Refill Request 12/12/2021 Encounter Details Date Type Department Care Team (Late st Contact Info) Description 12/12/2021 MyC Refill [facility] [address] [place] [address] Nelson Arroyo PA-C [address] [place] [address] Refill Request Social History Tobacco [...] PM CDT Legal Sex Female 3:44 AM MEDICAL FEE CLERK Gender Identity Female 10/03/2020 8:33 PM CDT Sexual Orientation Straight 07/01/2018 3: 40 PM MEDICAL FEE CLERK documented as of this encounter Miscellaneous Notes * Telephone Encounter - Kay Zambrano RN - 12/31/2021 10:14 AM CDT Sent [employer] to call us regarding her buspar. * Telephone Encounter - Rae Hernandez RN - 12/18/2021 8:38 AM CDT Had refill request for Buspar 10 mg once a day. Pt had 180 tabs ordered on 10/17/21. See also refill request from 12/10/21. Called [facility] pharmacy, to verify how many tabs dispensed from 10/17/21 refill. Spoke to Bayron Raman. States filled Buspar 10mg once daily on 10/25/21, dispensed 90 tabs. In addition, pharmacist states on 12/16/21 pt picked up Buspar 5 mg twice daily 14 tabs for 1 week. RN not able to find the Buspar 5 mg twice daily in our records. Called [facility] pharmacist back to find out who prescribed that prescription. Spoke w/ states Lamine Buspar 5 mg twice daily ordered by Dr Jefferson ([facility]). Called pt to clarify if she has [...] documented as of this encounter Care Teams Brassiere Cup Mold Cutter Relationship Specialty Start Date End Date Nelson Arroyo PA-C [address] [place] [address] PCP - General Physician Aeronautical Drafter - Medical 08/06/18 Salina Doherty MD Internal Medicine 12/01/14 Carrillo Ware APRN BUSINESS PERFORMANCE ANALYST [address] [place] [address] Nurse Practitioner Nurse Practitioner 12/16/14 Angelica Jerez NP [facility] [address] [place] [address] Nurse Practitioner Nurse Practitioner - Family 07/12/16 Nelson Arroyo PA-C [address] [place] [address] Assigned PCP 07/30/20 Pietro Wills MD [address] [place] [address] Assigned Heart and Vascular Provider 12/14/22 06/26/24 Tank Bucio MD [address], [facility] 100 [place] [address] Physician meat stock clerk 12/01/23 documented as of this encounter
--- OUTSIDE RECORDS SUMMARY | 2024-07-20 16:37 | XMS_ITS | Encounter Summary ---
Author Organization [place] Address [facility] [place] [address] Care Team Providers Care Rag Grader Name Role Phone Salina Doherty MD Unavailable Carrillo Ware APRN CASTING PLUG ASSEMBLER Unavailable [phone] SolitarioAngelica golden NP Unavailable [phone] Nelson Arroyo PA-C Primary Care Provider Nelson Arroyo PA-C Unavailable [phone] Pietro Wills MD Unavailable Tank Bucio MD Unavailable [phone] Encounter Details Date Type Department Care Team (Late st Contact Info) Description 11/06/[address] [facility] [address] [place] [phone] Beka Vela, OTR/L Social History Tobacco Use [...] PM CDT Legal Sex Female 3:44 AM YOUTH MINISTRY DIRECTOR Gender Identity Female 10/03/2020 8:33 PM CDT Sexual Orientation Straight 07/01/2018 3: 40 PM YOUTH MINISTRY DIRECTOR documented as of this encounter Plan of Treatment Not on file documented as of this encounter Visit Diagnoses Not on filedocumented in this encounter Additional Health Concerns Assessment Noted Time PHQ-9 Depression Total Score: 7 10/23/19 22 11:44 AM CDT documented as of this encounter Care Teams Rag Grader Relationship Specialty Start Date End Date Nelson Arroyo PA-C [address] [place] [address] PCP - General Physician Turbo Generator Oiler - Medical 08/06/18 Salina Doherty MD Internal Medicine 12/01/14 Carrillo Ware APRN CASTING PLUG ASSEMBLER [address] [place] [address] 924435 Nurse Practitioner Nurse Practitioner 12/16/14 Angelica Jerez NP [facility] [address] [place], [place] [address] Nurse Practitioner Nurse Practitioner - Family 07/12/16 Nelson Arroyo PA-C [address] [place] [address] Assigned PCP 07/30/20 Pietro Wills MD [address] [place] 492335 Assigned Heart and Vascular Provider 12/14/22 06/26/24 Tank Bucio MD [address] [address] Physician baker pie 12/01/23 documented as of this encounter
--- OUTSIDE RECORDS SUMMARY | 2024-07-20 16:37 | XMS_ITS | Encounter Summary ---
Author Organization [place] Address [address] [place] [address] Care Team Providers Care Candle Maker Name Role Phone Salina Doherty MD Unavailable [phone] Carrillo Ware APRN FISH STRINGER ASSEMBLER Unavailable Hillary Unger MD Primary Care P rovider [facility] NP Unavailable [phone] Nelson Arroyo PA-C Unavailable [phone] Hillary Unger MD Unavailable Hillary Unger MD Unavailable Hillary Unger MD Unavailable Nelson Arroyo PA-C Unavailable [phone] Nelson Arroyo PA-C Primary Care Provider Chinyere Barbour Unavailable Unavailable Nelson Arroyo PA-C Unavailable [phone] Pietro Wills MD Unavailable [phone] Tank Bucio MD Unavailable [phone] Encounter Details Date Type Department Care Team (Late st Contact Info) Description 11/11/2016 [facility] [address] [place] [phone] Solitario Angelica Gautam, DATA QUALITY CONSULTANT [address] [place], [place] [phone] Social History Tobacco Use Types Packs/Day Years [...] PM CDT Legal Sex Female 3:44 AM LABORER TANBARK Gender Identity Female 10/03/2020 8:33 PM CDT Sexual Orientation Straight 07/01/2018 3: 40 PM LABORER TANBARK documented as of this encounter Miscellaneous Notes [...] documented as of this encounter Care Teams Candle Maker Relationship Specialty Start Date End Date Hillary Unger MD [facility] [place] [address] PCP - General Internal Medicine 08/21/15 08/05/18 Nelson Arroyo PA-C [address] [place] [address] PCP - Assigned PCP 04/12/18 05/02/18 Hillary Unger MD [address] [place] [address] PCP - Assigned PCP 02/01/18 04/11/18 Hillary Unger MD [address] [place] [address] PCP - Assigned PCP 05/03/18 07/07/18 Nelson Arroyo PA-C [address] [place], [place] 68924[address] PCP - General Physician Sign Hanger Supervisor - Medical 08/06/18 Salina Doherty MD Internal Medicine 12/01/14 Carrillo Ware APRN FISH STRINGER ASSEMBLER [address] [place] [address] Nurse Practitioner Nurse Practitioner 12/16/14 Angelica Jerez NP [facility] [address] [place] [address] Nurse Practitioner Nurse Practitioner - Family 07/12/16 Hillary Unger MD [address] [place] [address] Assigned PCP 05/03/18 07/18/18 Nelson Arroyo PA-C [address] [address] Assigned PCP 07/05/18 07/29/20 Chinyere Barbour Personal Advocate & Liaison (PAL) 01/31/20 04/26/20 Nelson Arroyo PA-C [address] [place] [address] Assigned PCP 07/30/20 Pietro Wills MD [address] [place] [address] Assigned Heart and Vascular Provider 12/14/22 06/26/24 Tank Bucio MD [address], [facility] 100 [place] [address] Physician lead dental assistant 12/01/23 documented as of this encounter
--- OUTSIDE RECORDS SUMMARY | 2024-07-20 16:37 | XMS_ITS | Encounter Summary ---
Author Organization [place] Address [address] [place] [address]. [place] [address] Care Team Providers Care Math Tutor Name Role Phone Salina Doherty MD Unavailable [phone] Carrillo Ware APRN CONTROL CLERK HEAD Unavailable SolitarioAngelica golden NP Unavailable [phone] Nelson Arroyo PA-C Unavailable Nelson Arroyo PA-C Primary Care Provider Chinyere Barbour Unavailable Unavailable Nelson Arroyo PA-C Unavailable [phone] Pietro Wills MD Unavailable Tank Bucio MD Unavailable Reason for Visit * Reason Onset Date Comments MyChart Communication 12/16/2018 Encounter Details Date Type Department Care Team (Late st Contact Info) Description 12/16/[address] 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 They did receive the prescriptions, however there is an issue with insurance covering them. The Pt may have to pay for them out of pocket. Pharmacy will call insurance company and call the Pt back directly. I informed the Pt of this via message below. Susanne Zacarias RN -- [facility] Workforce documented in this encounter Plan of Treatment Not on file documented as of this encounter Visit Diagnoses Not on filedocumented in this encounter Additional Health Concerns Assessment Noted Time PHQ-9 Depression Total Score: 7 10/23/19 19 11:12 AM CDT documented as of this encounter Care Teams Math Tutor Relationship Specialty Start Date End Date Nelson Arroyo PA-C [address] [place] [address] PCP - General Physician Counselor Aid - Medical 08/06/18 Salina Doherty MD Internal Medicine 12/01/14 Carrillo Ware APRN CNP [address] [place] [address] Nurse Practitioner Nurse Practitioner 12/16/14 Angelica Jerez NP [facility] [address] [place] [address] Nurse Practitioner Nurse Practitioner - Family 07/12/16 Nelson Arroyo PA-C [address] [place] [address] Assigned PCP 07/05/18 07/29/20 Chinyere Barbour Personal Advocate & Liaison (PAL) 01/31/20 04/26/20 Nelson Arroyo PA-C [address] [address] Assigned PCP 07/30/20 Pietro Wills MD [address] [place] [address] Assigned Heart and Vascular Provider 12/14/22 06/26/24 Tank Bucio MD [address], [address] [address] Physician sewing machine operator zipper 12/01/23 documented as of this encounter
--- OUTSIDE RECORDS SUMMARY | 2024-07-20 16:37 | XMS_ITS | Encounter Summary ---
Author Organization [place] Address [address] [place] [address]. [place] [address] Care Team Providers Care Entry Tech Name Role Phone Salina Doherty MD Unavailable [phone] Carrillo Ware APRN SAMPLE PATTERNMAKER Unavailable SolitarioAngelica golden NP Unavailable [phone] Nelson Arroyo PA-C Unavailable Nelson Arroyo PA-C Primary Care Provider Chinyere Barbour Unavailable Unavailable Nelson Arroyo PA-C Unavailable Pietro Wills MD Unavailable [phone] Tank Bucio MD Unavailable Reason for Visit * Reason Onset Date Comments Refill Request 08/30/2019 Encounter Details Date Type Department Care Team (Late st Contact Info) Description 08/30/2019 MyC Refill [facility] [address] [facility], [address] [place] [address] Nelson Arroyo PA-C [address] [place] [address] Refill Request Social History Tobacco [...] STATION AGENT documented as of this encounter Miscellaneous [...] Depression Total Score: 10 020 3:04 PM STATION AGENT documented as of this encounter Care Teams Entry Tech Relationship Specialty Start Date End Date Nelson Arroyo PA-C [address] [address] PCP - General Physician Mixer Blender - Medical 08/06/18 Salina Doherty MD Internal Medicine 12/01/14 Carrillo Ware APRN SAMPLE PATTERNMAKER [address] [place] [address] Nurse Practitioner Nurse Practitioner 12/16/14 Angelica Jerez NP [facility] [address] [place] [address] Nurse Practitioner Nurse Practitioner - Family 07/12/16 Nelson Arroyo PA-C [address] [place] [address] Assigned PCP 07/05/18 07/29/20 Chinyere Barbour Personal Advocate & Liaison (PAL) 01/31/20 04/26/20 Nelson Arroyo PA-C [address] [place] [address] Assigned PCP 07/30/20 Pietro Wills MD [address] [place] [address] Assigned Heart and Vascular Provider 12/14/22 06/26/24 Tank Bucio MD [address], [address] [address] Physician fight manager 12/01/23 documented as of this encounter
--- OUTSIDE RECORDS SUMMARY | 2024-07-20 16:37 | XMS_ITS | Encounter Summary ---
Author Organization [place] Address [address] [place] [address]. [place] [address] Care Team Providers Care Substation Operator Transforming Name Role Phone Salina Doherty MD Unavailable Carrillo Ware APRN DIGITAL PRINT OPERATOR Unavailable SolitarioAgnelica golden NP Unavailable [phone] Nelson Arroyo PA-C Primary Care Provider Nelson Arroyo PA-C Unavailable Pietro Wills MD Unavailable Tank Bucio MD Unavailable [phone] Encounter Details Date Type Department Care Team (Late st Contact Info) Description 10/31/2021 MyC Medical Advice [facility] [address] [place] [address] Nelson Arroyo PA-C [address] [place] [address] Social History Tobacco Use Types [...] PM CDT Legal Sex Female 3:44 AM POST ACUTE CARE REGISTERED NURSE Gender Identity Female 10/03/2020 8:33 PM CDT Sexual Orientation Straight 07/01/2018 3: 40 PM POST ACUTE CARE REGISTERED NURSE documented as of this encounter Miscellaneous Notes * Telephone Encounter - Sanjana Bautista RN - 11/01/2021 1:46 PM CDT prazosin (MINIPRESS) 5 MG capsule 90 capsule 0 10/31/2021 No Sig - Route: TAKE 1 CAPSULE (5 MG) BY MOUTH AT BEDTIME - Oral Sent to pharmacy as: Prazosin HCl 5 MG Oral Capsule (MINIPRESS) Class: E-Prescribe Order: [id number] E-Prescribing Status: Receipt confirmed by pharmacy (10/31/2021 [...] documented as of this encounter Care Teams Substation Operator Transforming Relationship Specialty Start Date End Date Nelson Arroyo PA-C [address] [place] [address] PCP - General Physician Web Sizer - Medical 08/06/18 Salina Doherty MD Internal Medicine 12/01/14 Carrillo Ware APRN DIGITAL PRINT OPERATOR [address] [place] [address] Nurse Practitioner Nurse Practitioner 12/16/14 Angelica Jerez NP [facility] [address] [place] [address] Nurse Practitioner Nurse Practitioner - Family 07/12/16 Nelson Arroyo PA-C [address] [place] [address] Assigned PCP 07/30/20 Pietro Wills MD [address] [place] [address] Assigned Heart and Vascular Provider 12/14/22 06/26/24 Tank Bucio MD [address], [facility] [address] [place] [address] Physician area operations manager 12/01/23 documented as of this encounter
--- OUTSIDE RECORDS SUMMARY | 2024-07-20 16:37 | XMS_ITS | Encounter Summary ---
Author Organization [place] Address [address] [place] [address] Care Team Providers Care Lead Janitor Name Role Phone Salina Doherty MD Unavailable [phone] Carrillo Ware APRN STAFF SUBMARINE WARFARE OFFICER Unavailable Hillary Unger MD Primary Care P rovider [facility] Unavailable [phone] Nelson Arroyo PA-C Unavailable Hillary Unger MD Unavailable Hillary Unger MD Unavailable Hillary Unger MD Unavailable Nelson Arroyo PA-C Unavailable [phone] Nelson Arroyo PA-C Primary Care Provider Chinyere Barbour Unavailable Unavailable Nelson Arroyo PA-C Unavailable [phone] Pietro Wills MD Unavailable [phone] Tank Bucio MD Unavailable [phone] Encounter Details Date Type Department Care Team (Late st Contact Info) Description 11/12/2016 [facility] Medical Advice [facility] Mental Health & Addiction [address] [place] [address] Solitario Angelica Gautam, COUPON AND BOND COLLECTION CLERK [address] [place] [address] Social History Tobacco Use Types Packs/Day Years [...] PM CDT Legal Sex Female 3:44 AM CHARGE ACCOUNT AUTHORIZER Gender Identity Female 10/03/2020 8:33 PM CDT Sexual Orientation Straight 07/01/2018 3: 40 PM CHARGE ACCOUNT AUTHORIZER documented as of this encounter Plan of Treatment Not on file documented as of this encounter Visit Diagnoses Not on filedocumented in this encounter Additional Health Concerns Assessment Noted Time PHQ-9 Depression Total Score: 4 10/06/19 17 7:28 AM CDT documented as of this encounter Care Teams Lead Janitor Relationship Specialty Start Date End Date Hillary Unger MD [address] [place] [address] PCP - General Internal Medicine 08/21/15 08/05/18 Nelson Arroyo PA-C [address] [place] [address] PCP - Assigned PCP 04/12/18 05/02/18 Hillary Unger MD [address] [place] [address] PCP - Assigned PCP 02/01/18 04/11/18 Hillary Unger MD [address] [place] [address] PCP - Assigned PCP 05/03/18 07/07/18 Nelson Arroyo PA-C [address] [place] [address] PCP - General Physician Market Research Senior Project Manager - Medical 08/06/18 Salina Doherty MD Internal Medicine 12/01/14 Carrillo Ware APRN STAFF SUBMARINE WARFARE OFFICER [address] [place] [address] Nurse Practitioner Nurse Practitioner 12/16/14 Angelica Jerez COUPON AND BOND COLLECTION CLERK [facility] [address] [place], [place] [address] Nurse Practitioner Nurse Practitioner - Family 07/12/16 Hillary Unger MD [address] [place] [address] Assigned PCP 05/03/18 07/18/18 Nelson Arroyo PA-C [address] [place] [address] Assigned PCP 07/05/18 07/29/20 Chinyere Barbour Personal Advocate & Liaison (PAL) 01/31/20 04/26/20 Nelson Arroyo PA-C [address] [place] [address] Assigned PCP 07/30/20 Pietro Wills MD [address] [place] [address] Assigned Heart and Vascular Provider 12/14/22 06/26/24 Tank Bucio MD [address] [place], [facility] [address] [place] [address] Physician cold roll catcher 12/01/23 documented as of this encounter
--- OUTSIDE RECORDS SUMMARY | 2024-07-20 16:37 | XMS_ITS | Encounter Summary ---
Author Organization [place] Address [address] [place] [address] Care Team Providers Care Hand Former Name Role Phone Salina Doherty MD Unavailable [phone] Carrillo Ware APRN MANAGER CLEANING Unavailable [phone] SolitarioAngelica goledn NP Unavailable [phone] Nelson Arroyo PA-C Primary Care Provider Nelson Arroyo PA-C Unavailable [phone] Pietro Wills MD Unavailable [phone] Tank Buico MD Unavailable [phone] Encounter Details Date Type Department Care Team (Late st Contact Info) Description 02/15/2022 [facility]ice [address] [address] Damaso Loza, JONEL Social History [...] PM CDT Legal Sex Female 3:44 AM EXPLOSIVE SPECIALIST Gender Identity Female 10/03/2020 8:33 PM CDT Sexual Orientation Straight 07/01/2018 3: 40 PM EXPLOSIVE SPECIALIST documented as of this encounter Plan of Treatment Not on file documented as of this encounter Visit Diagnoses Not on filedocumented in this encounter Additional Health Concerns Assessment Noted Time PHQ-9 Depression Total Score: 7 10/23/19 22 11:44 AM CDT documented as of this encounter Care Teams Hand Former Relationship Specialty Start Date End Date Nelson Arroyo PA-C [address] [place] [address] PCP - General Physician Mission Planner - Medical 08/06/18 Salina Doherty MD Internal Medicine 12/01/14 Carrillo Ware APRN MANAGER CLEANING [address] [place] [address] 163745 Nurse Practitioner Nurse Practitioner 12/16/14 Angelica Jerez NP [facility] [address] [place], [place] [address] Nurse Practitioner Nurse Practitioner - Family 07/12/16 Nelson Arroyo PA-C [address] [place] [address] Assigned PCP 07/30/20 Pietro Wills MD [address] [place] [address] Assigned Heart and Vascular Provider 12/14/22 06/26/24 Tank Bucio MD [address] 7408[address] Physician filter cleaner 12/01/23 documented as of this encounter
--- OUTSIDE RECORDS SUMMARY | 2024-07-20 16:37 | XMS_ITS | Encounter Summary ---
Author Organization [place] Address [address] [place] [address] Care Team Providers Care Millinery Copyist Name Role Phone Salina Doherty MD Unavailable [phone] Carrillo Ware APRN RETAIL COORDINATOR Unavailable Hillary Unger MD Primary Care P rovider [facility] NP Unavailable [phone] Nelson Arroyo PA-C Unavailable [phone] Hillary Unger MD Unavailable Hillary Unger MD Unavailable Hillary Unger MD Unavailable Nelson Arroyo PA-C Unavailable [phone] Nelson Arroyo PA-C Primary Care Provider Chinyere Barbour Unavailable Unavailable Nelson Arroyo PA-C Unavailable [phone] Pietro Wills MD Unavailable [phone] Tank Bucio MD Unavailable [phone] Reason for Visit * Reason Onset Date Comments Mass 05/30/2017 Golf-ball sized painful lump on head Encounter Details Date Type Department Care Team (Late st Contact Info) Description 05/30/2017 [facility] [address] [place] [address] [place] [address] Hillary Unger MD [address] [place] [address] Mass (Golf-ball sized painful lump on head) [...] PM CDT Legal Sex Female 3:44 AM ANCHORMAN Gender Identity Female 10/03/2020 8:33 PM CDT Sexual Orientation Straight 07/01/2018 3: 40 PM ANCHORMAN documented as of this encounter Miscellaneous Notes * Telephone Encounter - Shira Chow CMA - 05/30/2017 6:49 PM ANCHORMAN Tried calling pt on her cell, no answer. Spoke to Nancy ROLDAN, who thought it would be best to recommend that she go to an urgent care seeing as how we really don't have enough information to know if the pt is dealing with something serious or not. Will route to Dr. Tran as high-priority. ORMAN * Telephone Encounter - Shira Chow CMA - 05/30/2017 6:28 PM ANCHORMAN Routed to Dr. Tran. ORMAN documented in this encounter Plan of Treatment Not on file documented as of this encounter Visit Diagnoses Not on filedocumented in this encounter Additional Health Concerns Assessment Noted Time PHQ-9 Depression Total Score: 4 04/04/20 17 7:13 AM ANCHORMAN documented as of this encounter Care Teams Millinery Copyist Relationship Specialty Start Date End Date Hillary Unger MD [address] [place] [address] PCP - General Internal Medicine 08/21/15 08/05/18 Nelson Arroyo PA-C [address] [place] [address] PCP - Assigned PCP 04/12/18 05/02/18 Hillary Unger MD [address] [place] [address] PCP - Assigned PCP 02/01/18 04/11/18 Hillary Unger MD [address] [place] [address] PCP - Assigned PCP 05/03/18 07/07/18 Nelson Arroyo PA-C [address] [place] [address] PCP - General Physician Superintendent Horticulture - Medical 08/06/18 Salina Doherty MD Internal Medicine 12/01/14 Carrillo Ware APRN RETAIL COORDINATOR [address] [place] [address] 542525 Nurse Practitioner Nurse Practitioner 12/16/[address] [facility] [address] [place], [place] 088[address] Nurse Practitioner Nurse Practitioner - Family 07/12/16 Hillary Unger MD [address] [place] [address] Assigned PCP 05/03/18 07/18/18 Nelson Arroyo PA-C [address] [place] [address] Assigned PCP 07/05/18 07/29/20 Chinyere Barbour Personal Advocate & Liaison (PAL) 01/31/20 04/26/20 Nelson Arroyo PA-C [address] [place] [address] Assigned PCP 07/30/20 Pietro Wills MD [address] [place] [address] Assigned Heart and Vascular Provider 12/14/22 06/26/24 Tank Bucio MD [address], [facility] [address] [place] [address] Physician assembler corncob pipes 12/01/23 documented as of this encounter
--- OUTSIDE RECORDS SUMMARY | 2024-07-20 16:37 | XMS_ITS | Encounter Summary ---
Author Organization [place] Address [address] [place] [address]. [place] [address] Care Team Providers Care Plastic Panel Installer Name Role Phone Salina Doherty MD Unavailable [phone] Carrillo Ware APRN BETA TESTER Unavailable SolitarioAngelica golden NP Unavailable [phone] Nelson Arroyo PA-C Unavailable Nelson Arroyo PA-C Primary Care Provider [phone] Chinyere Barbour Unavailable Unavailable Nelson Arroyo PA-C Unavailable Pietro Wills MD Unavailable Tank Bucio MD Unavailable Reason for Visit * Reason Onset Date Comments Appointment 06/29/2019 Encounter Details Date Type Department Care Team (Late st Contact Info) Description 06/29/2019 MyC Medical Advice [facility] [address] [place] [address], [address] [place] [address] Nelson Arroyo PA-C [address] [place] [address] Appointment Social History Tobacco Use [...] PM CDT Legal Sex Female 3:44 AM UROLOGY NURSE Gender Identity Female 10/03/2020 8:33 PM CDT Sexual Orientation Straight 07/01/2018 3: 40 PM UROLOGY NURSE documented as of this encounter Plan of Treatment Not on file documented as of this encounter Visit Diagnoses Not on filedocumented in this encounter Additional Health Concerns Assessment Noted Time PHQ-9 Depression Total Score: 10 019 2:36 PM CDT documented as of this encounter Care Teams Plastic Panel Installer Relationship Specialty Start Date End Date Nelson Arroyo PA-C [address] [place] [address] PCP - General Physician Gem Expert - Medical 08/06/18 Salina Doherty MD Internal Medicine 12/01/14 Carrillo Ware APRN BETA TESTER [address] [place] [address] Nurse Practitioner Nurse Practitioner 12/16/14 Angelica Jerez NP [facility] [address] [place] [address] Nurse Practitioner Nurse Practitioner - Family 07/12/16 Nelson Arroyo PA-C [address] [place] [address] Assigned PCP 07/05/18 07/29/20 Chinyere Barbour Personal Advocate & Liaison (PAL) 01/31/20 04/26/20 Nelson Arroyo PA-C [address] [place] [address] Assigned PCP 07/30/20 Pietro Wills MD [address] [place] [address] Assigned Heart and Vascular Provider 12/14/22 06/26/24 Tank Bucio MD [address] [facility] [place] [address] [place] [address] Physician picture copyist 12/01/23 documented as of this encounter
--- OUTSIDE RECORDS SUMMARY | 2024-07-20 16:37 | XMS_ITS | Encounter Summary ---
Author Organization [place] Address [address] [place] [address] Care Team Providers Care Grants And Contracts Assistant Name Role Phone Salina Doherty MD Unavailable Carrillo Ware APRN HISTOLOGY SUPERVISOR Unavailable SolitarioAngelica golden NP Unavailable [phone] Nelson Arroyo PA-C Primary Care Provider Nelson Arroyo PA-C Unavailable [phone] Pietro Wills MD Unavailable Tank Bucio MD Unavailable [phone] Reason for Visit * Reason Onset Date Comments Outpatient 10/17/2021 Encounter Details Date Type Department Care Team (Late st Contact Info) Description 10/17/2021 Telephone [facility] Behavioral Health Intake [address] [place] [address] Generic, Behavioral Intake, Outpatient Social [...] PM CDT Legal Sex Female 3:44 AM ROD POINTER Gender Identity Female 10/03/2020 8:33 PM CDT Sexual Orientation Straight 07/01/2018 3: 40 PM ROD POINTER documented as of this encounter Miscellaneous Notes [...] documented as of this encounter Care Teams Grants And Contracts Assistant Relationship Specialty Start Date End Date Nelson Arroyo PA-C [address] [place] [address] PCP - General Physician Crown Attacher - Medical 08/06/18 Salina Doherty MD Internal Medicine 12/01/14 Carrillo Ware APRN HISTOLOGY SUPERVISOR [address] [place] [address]3935 Nurse Practitioner Nurse Practitioner 12/16/14 Angelica Jerez NP [facility] [address] [place], [place] [address] Nurse Practitioner Nurse Practitioner - Family 07/12/16 Nelson Arroyo PA-C [address] [place] [address] Assigned PCP 07/30/20 Pietro Wills MD [address] [place] [address] Assigned Heart and Vascular Provider 12/14/22 06/26/24 Tank Bucio MD [address] [address] Physician chemical processing supervisor 12/01/23 documented as of this encounter
--- OUTSIDE RECORDS SUMMARY | 2024-07-20 16:37 | XMS_ITS | Encounter Summary ---
Author Organization [place] Address [address] [place] [address] Care Team Providers Care Director Internal Control Name Role Phone Salina Doherty MD Unavailable Carrillo Ware APRN CHILLER OPERATOR Unavailable SolitarioAngelica golden NP Unavailable [phone] Nelson Arroyo PA-C Primary Care Provider Nelson Arroyo PA-C Unavailable [phone] Pietro Wills MD Unavailable Tank Bucio MD Unavailable [phone] Encounter Details Date Type Department Care Team (Late st Contact Info) Description 11/13/2021 [facility] Medical [facility] Behavioral Health Intake [address] [place] [address] Margi Dumont Social History Tobacco Use Types [...] PM CDT Legal Sex Female 3:44 AM WAFER FABRICATOR Gender Identity Female 10/03/2020 8:33 PM CDT Sexual Orientation Straight 07/01/2018 3: 40 PM WAFER FABRICATOR documented as of this encounter Plan of Treatment Not on file documented as of this encounter Visit Diagnoses Not on filedocumented in this encounter Additional Health Concerns Assessment Noted Time PHQ-9 Depression Total Score: 7 10/23/19 22 11:44 AM CDT documented as of this encounter Care Teams Director Internal Control Relationship Specialty Start Date End Date Nelson Arroyo PA-C [address] [place] [address] PCP - General Physician Video Control Operator - Medical 08/06/18 Salina Doherty MD Internal Medicine 12/01/14 Carrillo Ware APRN CHILLER OPERATOR [address] [place] [address] 933915 Nurse Practitioner Nurse Practitioner 12/16/14 Angelica Jerez NP [facility] [address] [place], [place] [id number] Nurse Practitioner Nurse Practitioner - Family 07/12/16 Nelson Arroyo PA-C [address] [place] [address] Assigned PCP 07/30/20 Pietro Wills MD [address] [place] [address]88[address] Assigned Heart and Vascular Provider 12/14/22 06/26/24 Tank Bucio MD [address], [address] [address] Physician otolaryngology rep 12/01/23 documented as of this encounter
--- OUTSIDE RECORDS SUMMARY | 2024-07-20 16:37 | XMS_ITS | Encounter Summary ---
Author Organization [place] Address [address] [place] [address]. [place] [address] Care Team Providers Care Periodontist Name Role Phone Salina Doherty MD Unavailable [phone] Carrillo Ware APRN PHYSICIST NUCLEAR Unavailable SolitarioAngelica golden NP Unavailable [phone] Nelson Arroyo PA-C Primary Care Provider Nelson Arroyo PA-C Unavailable Pietro Wills MD Unavailable Tank Bucio MD Unavailable Reason for Visit * Reason Comments Medication Refill Encounter Details Date Type Department Care Team (Late st Contact Info) Description 08/07/2021 Refill [facility] [address] [place] [address] Nelson Arroyo PA-C [address] [place] [address] Medication Refill Social History Tobacco [...] PM CDT Legal Sex Female 3:44 AM BIG MACHINE CONSULTANT Gender Identity Female 10/03/2020 8:33 PM CDT Sexual Orientation Straight 07/01/2018 3: 40 PM BIG MACHINE CONSULTANT COVID-19 Exposure Response Date Recorded In [...] Total Score: 9 06/04/19 22 12:13 PM BIG MACHINE CONSULTANT documented as of this encounter Care Teams Periodontist Relationship Specialty Start Date End Date Nelson Arroyo PA-C [address] [place] [address] PCP - General Physician Informatica Mdm Developer - Medical 08/06/18 Salina Doherty MD Internal Medicine 12/01/14 Carrillo Ware APRN PHYSICIST NUCLEAR [address] [place] [address] Nurse Practitioner Nurse Practitioner 12/16/14 Angelica Jerez NP [facility] [address] [place] [address] Nurse Practitioner Nurse Practitioner - Family 07/12/16 Nelson Arroyo PA-C [address] [place] [address] Assigned PCP 07/30/20 Pietro Wills MD [address] [place] [address] Assigned Heart and Vascular Provider 12/14/22 06/26/24 Tank Bucio MD [address], [facility] 100 [place] [address] Physician pantry chef 12/01/23 documented as of this encounter
--- OUTSIDE RECORDS SUMMARY | 2024-07-20 16:38 | XMS_ITS | Encounter Summary ---
Author Organization [place] Address [address] [place] [address]. [place] [address] Care Team Providers Care Inspector Hairspring Name Role Phone Salina Doherty MD Unavailable Carrillo Ware APRN AGENCY SALES MANAGEMENT ASSISTANT Unavailable SolitarioAngelica golden NP Unavailable [phone] Nelson Arroyo PA-C Primary Care Provider Nelson Arroyo PA-C Unavailable Pietro Wills MD Unavailable Tank Bucio MD Unavailable [phone] Encounter Details Date Type Department Care Team (Late st Contact Info) Description 01/17/2021 MyC Medical Advice [facility] [address] [place] [address] Nelson Arroyo PA-C [address] [place] [address] Social History Tobacco Use Types [...] PM CDT Legal Sex Female 3:44 AM INTERNAL SALESPERSON Gender Identity Female 10/03/2020 8:33 PM CDT Sexual Orientation Straight 07/01/2018 3: 40 PM INTERNAL SALESPERSON documented as of this encounter Miscellaneous Notes * Telephone Encounter - Carmen Lynn RN - 01/17/2021 5:44 PM CDT Put letter on Nelson' desk- please sign then have someone put up front to last picker. We could maybe message her when it is done. Carmen Turcios RN documented in this encounter Plan of Treatment Not on file documented as of this encounter Visit Diagnoses Not on filedocumented in this encounter Additional Health Concerns Assessment Noted Time PHQ-9 Depression Total Score: 4 10/19/19 21 5:12 PM CDT documented as of this encounter Care Teams Inspector Hairspring Relationship Specialty Start Date End Date Nelson Arroyo PA-C [address] [facility] [place] [address] PCP - General Physician Brick Yard Hand - Medical 08/06/18 Salina Doherty MD Internal Medicine 12/01/14 Carrillo Ware APRN AGENCY SALES MANAGEMENT ASSISTANT [address] [place] [address] 982815 Nurse Practitioner Nurse Practitioner 12/16/14 Angelica Jerez NP [address] [address] Nurse Practitioner Nurse Practitioner - Family 07/12/16 Nelson Arroyo PA-C [address] [place] [address] Assigned PCP 07/30/20 Pietro Wills MD [address] [place] [address] Assigned Heart and Vascular Provider 12/14/22 06/26/24 Tank Bucio MD [address] [facility] [address] [place] [address] Physician batch records clerk 12/01/23 documented as of this encounter
--- OUTSIDE RECORDS SUMMARY | 2024-07-20 16:38 | XMS_ITS | Encounter Summary ---
Author Organization [place] Address [address] [place] [address]. [place] [address] Care Team Providers Care Electrical Fitter Name Role Phone Salina Doherty MD Unavailable [phone] Carrillo Ware APRN FIXTURE REPAIRER FABRICATOR Unavailable SolitarioAngelica golden NP Unavailable Nelson Arroyo PA-C Primary Care Provider Nelson Arroyo PA-C Unavailable [phone] Pietro Wills MD Unavailable [phone] Tank Bucio MD Unavailable [phone] Reason for Visit * Reason Onset Date Comments Refill Request 01/18/2021 (ADDERALL XR) 30 MG, Adderall 10mg Encounter Details Date Type Department Care Team (Late st Contact Info) Description 01/18/2021 MyC Refill [facility] [address] [place] [address] Nelson Arroyo PA-C [address] [place] [address] Refill Request ((ADDERALL XR) 30 [...] PM CDT Legal Sex Female 3:44 AM SUBSTATION ELECTRICIAN SUPERVISOR Gender Identity Female 10/03/2020 8:33 PM CDT Sexual Orientation Straight 07/01/2018 3: 40 PM SUBSTATION ELECTRICIAN SUPERVISOR documented as of this encounter Miscellaneous Notes * Telephone Encounter - Nelson Arroyo PA-C - 01/31/2021 5:02 PM CDT She has these on file for 01/23/21. I thought I had already responded to this and see that I didn't.Concepción was seeing th CATALYTIC CONVERTER OPERATOR HELPER where we made a brief dose change [...] ok in 3 months to let me knowhow new dosing is going. - amphetamine-dextroamphetamine (ADDERALL XR) 20 MG 24 hr capsule; Take 1 capsule (20 mg) by mouth 2 times daily - amphetamine-dextroamphetamine (ADDERALL XR) 20 MG 24 hr capsule; Take 1 capsule (20 mg) by mouth 2 times daily - amphetamine-dextroamphetamine (ADDERALL XR) 20 MG 24 hr capsule; Take 1 capsule (20 mg) by mouth 2 times daily Her CATALYTIC CONVERTER OPERATOR HELPER is confusing to me. She filled 20 [...] for review/approval because: Drug not on the [facility] or [facility] refill protocol or controlled substance Maude Singh RN documented in this encounter Plan of Treatment Not on file documented as of this encounter 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), predominantly inattentive type documented in this encounter Additional Health Concerns Assessment Noted Time PHQ-9 Depression Total Score: 4 10/19/19 21 5:12 PM CDT documented as of this encounter Care Teams Electrical Fitter Relationship Specialty Start Date End Date Nelson Arroyo PA-C [address] [place] [address] PCP - General Physician Geophysical Prospecting Surveyor - Medical 08/06/18 Salina Doherty MD Internal Medicine 12/01/14 Carrillo Ware APRN FIXTURE REPAIRER FABRICATOR [address] [place] [address] [id number] Nurse Practitioner Nurse Practitioner 12/16/14 Angelica Jerez NP [address] 746517 Nurse Practitioner Nurse Practitioner - Family 07/12/16 Nelson Arroyo PA-C [address] [place] [address] Assigned PCP 07/30/20 Pietro Wills MD [address] [place] [address] Assigned Heart and Vascular Provider 12/14/22 06/26/24 Tank Bucio MD [address], [address] [address] Physician energy rater 12/01/23 documented as of this encounter
--- OUTSIDE RECORDS SUMMARY | 2024-07-20 16:38 | XMS_ITS | Encounter Summary ---
Author Organization [facility] Address [address] [place] [address] Care Team Providers Care Process Server Name Role Phone Salina Doherty MD Unavailable [phone] Carrillo Ware APRN ASSISTANT PRODUCT MANAGER Unavailable Hillary Unger MD Primary Care P rovider [facility] NP Unavailable [phone] Nelson Arroyo PA-C Unavailable [phone] Hillary Unger MD Unavailable Hillary Unger MD Unavailable Hillary Unger MD Unavailable Nelson Arroyo PA-C Unavailable [phone] Nelson Arroyo PA-C Primary Care Provider Chinyere Barbour Unavailable Unavailable Nelson Arroyo PA-C Unavailable [phone] Pietro Wills MD Unavailable [phone] Tank Bucio MD Unavailable [phone] Reason for Visit * Reason Onset Date Comments Refill Request 01/07/2017 Encounter Details Date Type Department Care Team (Late st Contact Info) Description [facility]/07/2017 [facility] Mental Health [facility] Addiction [address] [place] [phone] Angelica Jerez, DYE MACHINE OPERATOR [address] [place] [address] Refill Request Social History Tobacco Use Types [...] PM CDT Legal Sex Female 3:44 AM BEHAVIORAL HEALTH THERAPIST Gender Identity Female 10/03/2020 8:33 PM CDT Sexual Orientation Straight 07/01/2018 3: 40 PM BEHAVIORAL HEALTH THERAPIST documented as of this encounter Miscellaneous Notes * Telephone Encounter - Mariella Patterson RN - 01/09/2017 11:30 AM CDT Klonopin (NOT ON RN PROTOCOL) and hydroxyzine. Last Written Prescription Date: 12/06/16 Last Fill Quantity: 30, # refills: 0 Last Office Visit with G, P or [facility] prescribing provider: 12/06/16 No appointment scheduled. From 12/06/16 OV with Angelica Jerez, PhD, PERSONAL BANKING ASSISTANT, ASSISTANT PRODUCT MANAGER Assessment: Nidia Crystal reports feeling stable on [...] or call after hours crisis line at [phone] or [phone]. ?? Continue individual/group therapy as planned. ?? Schedule an appointment with me in 6-8 weeks or sooner as needed. Call [facility] at [phone] to schedule. ?? Follow up with primary care provider as planned or for acute medical concerns. ?? Call the psychiatric nurse line with medication questions or concerns at [phone]. ?? My Practice Policy was reviewed and signed: YES ?? NetConstathart may be used to communicate with your [...] and stabilization. ?? Signed: Angelica Jerez, PhD, PERSONAL BANKING ASSISTANT, ASSISTANT PRODUCT MANAGER Psychiatry [facility] Date: 01/09/17 Query Report Page#: 1 Patient [...] 12/23/2016 DEXTROAMP-AMPHETAMIN 10 MG TAB 60.00 30 [id number] 12/17/2016 [id number] N [id number] 00.0 12/06/2016 DEXTROAMP-AMPHET ER 30 MG CAP 31.00 31 [id number] 10/18/2016 [id number] N [id number] 12/06/2016 CLONAZEPAM 1 MG TABLET 30.00 30 [id number] 12/06/2016 [id number] N [id number] 00.0 12/06/2016 GABAPENTIN 300 MG CAPSULE 30.00 30 [id number] 12/06/2016 [id number] N [id number] 00.0 11/21/2016 DEXTROAMP-AMPHETAMIN 10 MG TAB 60.00 30 [id number] 11/21/2016 [id number] N [id number] 00.0 11/08/2016 GABAPENTIN 300 MG CAPSULE 30.00 30 [id number] 10/04/2016 [id number] R [id number] 00.0 10/22/2016 DEXTROAMP-AMPHETAMIN 10 MG TAB 60.00 30 [id number] 10/18/2016 [id number] N [id number] 00.0 10/15/2016 CLONAZEPAM 1 MG TABLET 30.00 30 [id number] 10/15/2016 [id number] N [id number] 00.0 10/04/2016 GABAPENTIN 300 MG CAPSULE 30.00 30 [id number] 10/04/2016 [id number] N [id number] 00.0 09/10/2016 CLONAZEPAM 1 MG TABLET 30.00 30 [id number] 09/09/2016 [id number] N [id number] 00.0 08/30/2016 DEXTROAMP-AMPHET ER 30 MG CAP 31.00 31 [id number] 08/23/2016 [id number] N [id number] 08/30/2016 DEXTROAMP-AMPHETAMIN 10 MG TAB 30.00 30 [id number] 08/19/2016 [id number] N [id number] 00.0 08/16/2016 OXYCODONE-ACETAMINOPHEN 5-325 10.00 2 [id number] 08/16/2016 [id number] N [id number] 37.5 08/09/2016 CLONAZEPAM 1 MG TABLET 30.00 30 [id number] 07/12/2016 [id number] R [id number] 00.0 08/08/2016 OXYCODONE-ACETAMINOPHEN 5-325 12.00 3 [id number] 08/08/2016 [id number] N [id number] 30.0 08/08/2016 GABAPENTIN 300 MG CAPSULE 30.00 30 [id number] 07/12/2016 [id number] R [id number] 00.0 07/18/2016 GABAPENTIN 100 MG CAPSULE 30.00 30 [id number] 07/18/2016 [id number] N [id number] 00.0 07/16/2016 DEXTROAMP-AMPHET ER 30 MG CAP 31.00 31 [id number] 07/11/2016 [id number] N [id number] 07/16/2016 DEXTROAMP-AMPHETAMIN 10 MG TAB 30.00 30 [id number] 07/11/2016 [id number] N [id number] 00.0 07/12/2016 GABAPENTIN 300 MG CAPSULE 30.00 30 [id number] 07/12/2016 [id number] N [id number] 00.0 07/12/2016 CLONAZEPAM 1 MG TABLET 30.00 30 [id number] 07/12/2016 [id number] N [id number] 00.0 06/17/2016 DEXTROAMP-AMPHETAMIN 10 MG TAB 30.00 30 [id number] 06/06/2016 [id number] N [id number] 00.0 06/17/2016 DEXTROAMP-AMPHET ER 30 MG CAP 31.00 31 [id number] 06/06/2016 [id number] N [id number] 05/03/2016 DEXTROAMP-AMPHET ER 30 MG CAP 31.00 31 [id number] 04/29/2016 [id number] N [id number] 05/03/2016 DEXTROAMP-AMPHETAMIN 10 MG TAB 30.00 30 [id number] 04/29/2016 [id number] N [id number] 00.0 04/03/2016 CLONAZEPAM 0.5 MG TABLET 90.00 30 [id number] 03/05/2016 [id number] R [id number] 00.0 03/25/2016 DEXTROAMP-AMPHET ER 30 MG CAP 31.00 31 [id number] 03/22/2016 [id number] N [id number] 03/25/2016 DEXTROAMP-AMPHETAMIN 10 MG TAB 30.00 30 [id number] 03/22/2016 [id number] N [id number] 00.0 03/05/2016 CLONAZEPAM 0.5 MG TABLET 90.00 30 [id number] 03/05/2016 [id number] N [id number] 00.0 02/20/2016 ALPRAZOLAM 0.25 MG TABLET 20.00 6 [id number] 02/20/2016 [id number] N [id number] 00.0 02/19/2016 DEXTROAMP-AMPHET ER 30 MG CAP 30.00 30 [id number] 12/20/2015 [id number] N [id number] 02/19/2016 DEXTROAMP-AMPHETAMIN 10 MG TAB 30.00 30 [id number] 12/20/2015 [id number] N [id number] 00.0 01/20/2016 DEXTROAMP-AMPHETAMIN 10 MG TAB 30.00 30 [id number] 12/20/2015 8757735 N [id number] 00.0 01/20/2016 DEXTROAMP-AMPHET ER 30 MG CAP 30.00 30 [id number] 12/20/2015 [id number] N [id number] 01/17/2016 ALPRAZOLAM 0.25 MG TABLET 20.00 6 [id number] 01/17/2016 [id number] N [id number] 00.0 *N/R N=New R=Refill +MED Daily Per CDC guidance, the conversion factors and associated daily morphine milligram equivalents for drugs prescribed as part of medication-assisted treatment for opioid use disorder should not be used to benchmark against dosage thresholds meant for opioids * Telephone Encounter - Marina Andrade RN - 01/08/2017 1:05 PM CDTMessage from [facility]: Original authorizing provider: JACQUE Novak would like a refill of the following medications: hydrOXYzine (ATARAX) 50 MG tablet [Angelica Jerez NP] clonazePAM (KLONOPIN) 1 MG tablet [Angelica Jerez NP] Preferred pharmacy: [address] Comment: documented in this encounter Plan of Treatment Not on file documented as of this encounter Visit Diagnoses Diagnosis Persistent insomnia Persistent disorder of initiating or maintaining sleep SHANTELL (generalized anxiety disorder) Generalized anxiety disorder documented in this encounter Additional Health Concerns Assessment Noted Time PHQ-9 Depression Total Score: 3 12/07/19 17 2:21 PM CDT documented as of this encounter Care Teams Process Server Relationship Specialty Start Date End Date Hillary Unger MD [address] [place] [address] PCP - General Internal Medicine 08/21/15 08/05/18 Nelson Arroyo PA-C [address] [facility] [place] [address] PCP - Assigned PCP 04/12/18 05/02/18 Hillary Unger MD [address] [place] [address] PCP - Assigned PCP 02/01/18 04/11/18 Hillary Unger MD [address] [place] [address] PCP - Assigned PCP 05/03/18 07/07/18 Nelson Arroyo PA-C [address] [place], [place] 9169168 PCP - General Physician Fence Post Driver - Medical 08/06/18 Salina Doherty MD Internal Medicine 12/01/14 Carrillo Ware APRN ASSISTANT PRODUCT MANAGER [address] [place] [address] 980925 Nurse Practitioner Nurse Practitioner 12/16/14 Angelica Jerez NP [facility] [address] [place] [address] Nurse Practitioner Nurse Practitioner - Family 07/12/16 Hillary Unger MD [address] [place] [address] Assigned PCP 05/03/18 07/18/18 Nelson Arroyo PA-C [address] [address] Assigned PCP 07/05/18 07/29/20 Chinyere Barbour Personal Advocate & Liaison (PAL) 01/31/20 04/26/20 Nelson Arroyo PA-C [address] [place] [address] Assigned PCP 07/30/20 Pietro Wills MD [address] [place] [address] Assigned Heart and Vascular Provider 12/14/22 06/26/24 Tank Bucio MD [address], [facility] [address] [place] [address] Physician watch dial maker 12/01/23 documented as of this encounter
--- OUTSIDE RECORDS SUMMARY | 2024-07-20 16:38 | XMS_ITS | Encounter Summary ---
Author Organization [facility] Address [address] [place] [address] Care Team Providers Care Geothermal Field Technician Name Role Phone Salina Doherty MD Unavailable [phone] Carrillo Ware APRN SEED MILL SUPERINTENDENT Unavailable Hillary Unger MD Primary Care P rovider [facility] NP Unavailable [phone] Nelson Arroyo PA-C Unavailable Hillary Unger MD Unavailable Hillary Unger MD Unavailable Hillary Unger MD Unavailable Nelson Arroyo PA-C Unavailable [phone] Nelson Arroyo PA-C Primary Care Provider [phone] Chinyere Barbour Unavailable Unavailable Nelson Arroyo PA-C Unavailable [phone] Pietro Wills MD Unavailable [phone] Tank Bucio MD Unavailable Encounter Details Date Type Department Care Team (Late st Contact Info) Description 02/06/2016 [facility] [address] [place] [address] Khadijah Rushing RN Social History Tobacco Use [...] PM CDT Legal Sex Female 3:44 AM LOZENGE DOUGH MIXER Gender Identity Female 10/03/2020 8:33 PM CDT Sexual Orientation Straight 07/01/2018 3: 40 PM LOZENGE DOUGH MIXER documented as of this encounter Plan of Treatment Not on file documented as of this encounter Visit Diagnoses Not on filedocumented in this encounter Additional Health Concerns Assessment Noted Time PHQ-9 Depression Total Score: 5 09/19/19 16 7:14 AM CDT documented as of this encounter Care Teams Geothermal Field Technician Relationship Specialty Start Date End Date Hillary Unger MD [address] [place] [address] PCP - General Internal Medicine 08/21/15 08/05/18 Nelson Arroyo PA-C [address] [place] [address] PCP - Assigned PCP 04/12/18 05/02/18 Hillary Unger MD [address] [place] [address] PCP - Assigned PCP 02/01/18 04/11/18 Hillary Unger MD [address] [place] [address] PCP - Assigned PCP 05/03/18 07/07/18 Nelson Arroyo PA-C [address] [place] [address] PCP - General Physician Lead Business Systems Analyst - Medical 08/06/18 Salina Doherty MD Internal Medicine 12/01/14 Carrillo Ware APRN SEED MILL SUPERINTENDENT [address] [place] [address] Nurse Practitioner Nurse Practitioner 12/16/14 Angelica Jerez NP [facility] [address] [place] [address] Nurse Practitioner Nurse Practitioner - Family 07/12/16 Hillary Unegr MD [address] [place], [place] 236737 Assigned PCP 05/03/18 07/18/18 Nelson Arroyo PA-C [address] [place] [address] Assigned PCP 07/05/18 07/29/20 Chinyere Barbour Personal Advocate & Liaison (PAL) 01/31/20 04/26/20 Nelson Arroyo PA-C [address] [place] [address] Assigned PCP 07/30/20 Pietro Wills MD [address] 488035 Assigned Heart and Vascular Provider 12/14/22 06/26/24 Tank Bucio MD [address], [address] 9350[address] Physician training systems officer 12/01/23 documented as of this encounter
--- OUTSIDE RECORDS SUMMARY | 2024-07-20 16:38 | XMS_ITS | Encounter Summary ---
Author Organization [facility] Address [address] [place] [address]. [place] [address] Care Team Providers Care Relay Man Name Role Phone Salina Doherty MD Unavailable [phone] Carrillo Ware APRN SOCIAL MEDIA CONTENT MANAGER Unavailable SolitarioAngelica golden NP Unavailable [phone] Nelson Arroyo PA-C Unavailable Nelson Arroyo PA-C Primary Care Provider [phone] Chinyere Barbour Unavailable Unavailable Nelson Arroyo PA-C Unavailable Pietro Wills MD Unavailable Tank Bucio MD Unavailable [phone] Reason for Visit * Reason Onset Date Comments Refill Request 10/18/2018 ADDERALL XR 30MG and ADDERALL 10MG Encounter Details Date Type Department Care Team (Late st Contact Info) Description 10/18/2018 MyC Refill [facility] Mental Health & Addiction [address] [place] [address] Nelson Arroyo PA-C [address] [place] [address] Refill Request (ADDERALL XR 30MG [...] Legal Sex Female 3:44 AM SUPERVISOR HOME ECONOMICS Gender Identity Female 10/03/2020 8:33 PM CDT Sexual Orientation Straight 07/01/2018 3: 40 PM SUPERVISOR HOME ECONOMICS documented as of this encounter Miscellaneous Notes * Telephone Encounter - Lexi Reina RN - 10/21/2018 8:08 AM CDT Last Written Prescription Date: 09.07.18 Last Fill Quantity: 30, # refills: 0 Last office visit: 08/28/2017 with prescribing provider: Cruz Future Office Visit: Plan RTC 11.05.18 Routing refill request to provider for review/approval because: Drug not on the [facility] refill protocol Lexi Reina RN, BS Clinical [...] SHOULD BE DELETED.) Last Office Visit with [facility] primary care provider: 08/28/2017 Future Office visit: [...] OXY13, PPX13, BUP13 Processing: Fax Rx to [facility] [email or web address] INTERNATIONAL SOURCING MANAGER checked in past 3 months? No, route to RN amphetamine-dextroamphetamine (ADDERALL) 10 MG tablet Last Written Prescription Date: 09/07/18 Last Fill Quantity: 30, # refills: 0 Last Office Visit with G, P or [facility] prescribing provider: 08/28/2017 documented in this encounter Plan of Treatment Not on file documented as of this encounter 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), predominantly inattentive type documented in this encounter Additional Health Concerns Assessment Noted Time PHQ-9 Depression Total Score: 13 019 7:04 AM CDT documented as of this encounter Care Teams Relay Man Relationship Specialty Start Date End Date Nelson Arroyo PA-C [address] [place] [address] PCP - General Physician Archery Equipment Repairer - Medical 08/06/18 Salina Doherty MD Internal Medicine 12/01/14 Carrillo Ware APRN SOCIAL MEDIA CONTENT MANAGER [address] [place] [address] Nurse Practitioner Nurse Practitioner 12/16/14 Angelica Jerez NP [facility] [address] [place] [address] Nurse Practitioner Nurse Practitioner - Family 07/12/16 Nelson Arroyo PA-C [address] [place] [address] Assigned PCP 07/05/18 07/29/20 Chinyere Barbour Personal Advocate & Liaison (PAL) 01/31/20 04/26/20 Nelson Arroyo PA-C [address] [address] Assigned PCP 07/30/20 Pietro Wills MD [address] [place] [address] Assigned Heart and Vascular Provider 12/14/22 06/26/24 Tank Bucio MD [address], [address] [address] Physician baby nurse 12/01/23 documented as of this encounter
--- OUTSIDE RECORDS SUMMARY | 2024-07-20 16:38 | XMS_ITS | Encounter Summary ---
Author Organization [place] Address [address] [place] [address] Care Team Providers Care Regional Transportation Manager Name Role Phone Salina Doherty MD Unavailable [phone] Carrillo Ware APRN VALET MANAGER Unavailable SolitarioAngelica golden NP Unavailable [phone] Nelson Arroyo PA-C Primary Care Provider [phone] Nelson Arroyo PA-C Unavailable Pietro Wills MD Unavailable [phone] Tank Bucio MD Unavailable Reason for Visit * Reason Onset Date Comments MyChart Communication 02/22/2021 Encounter Details Date Type Department Care Team (Late st Contact Info) Description 02/22/2021 MyC Medical Advice [facility] [address] [place] [address] Hillary Unger MD [address] [place] [address] MyChart Communication Social History Tobacco [...] CDT Legal Sex Female 3:44 AM DIGITAL PRODUCTION ARTIST Gender Identity Female 10/03/2020 8:33 PM CDT Sexual Orientation Straight 07/01/2018 3: 40 PM DIGITAL PRODUCTION ARTIST documented as of this encounter Miscellaneous Notes [...] documented as of this encounter Care Teams Regional Transportation Manager Relationship Specialty Start Date End Date Nelson Arroyo PA-C [address] [place] [address] PCP - General Physician Moveman - Medical 08/06/18 Salina Doherty MD Internal Medicine 12/01/14 Carrillo Ware APRN VALET MANAGER [address] [place] [address] 064565 Nurse Practitioner Nurse Practitioner 12/16/14 Angelica Jerez NP [facility] [address] [place], [place] [address] Nurse Practitioner Nurse Practitioner - Family 07/12/16 Nelson Arroyo PA-C [address] [place] [address] Assigned PCP 07/30/20 Pietro Wills MD [address] [place] [address] Assigned Heart and Vascular Provider 12/14/22 06/26/24 Tank Bucio MD [address], [address] [address] Physician grid maker 12/01/23 documented as of this encounter
--- OUTSIDE RECORDS SUMMARY | 2024-07-20 16:38 | XMS_ITS | Encounter Summary ---
Author Organization [facility] Address [address] [place] [address]. [place] [address] Care Team Providers Care Clothing Worker Name Role Phone Salina Doherty MD Unavailable [phone] Carrillo Ware APRN SPRING INSPECTOR Unavailable SolitarioAngelica golden NP Unavailable [phone] Nelson Arroyo PA-C Primary Care Provider Nelson Arroyo PA-C Unavailable [phone] Pietro Wills MD Unavailable Tank Bucio MD Unavailable [phone] Encounter Details Date Type Department Care Team (Late st Contact Info) Description 02/27/2021 [facility] [address] [place] [address] Nelson Arroyo PA-C [address] [place] [address] Social History Tobacco Use Types [...] PM CDT Legal Sex Female 3:44 AM RESIDENCE HALL DIRECTOR Gender Identity Female 10/03/2020 8:33 PM CDT Sexual Orientation Straight 07/01/2018 3: 40 PM RESIDENCE HALL DIRECTOR COVID-19 Exposure Response Date Recorded In the [...] documented as of this encounter Care Teams Clothing Worker Relationship Specialty Start Date End Date Nelson Arroyo PA-C [address] [place] [address] PCP - General Physician Electronic Organ Technician - Medical 08/06/18 Salina Doherty MD Internal Medicine 12/01/14 Carrillo Ware APRN CNP [address] [place] [address]375 Nurse Practitioner Nurse Practitioner 12/16/14 Angelica Jerez NP [facility] [address] [place] [address] Nurse Practitioner Nurse Practitioner - Family 07/12/16 Nelson Arroyo PA-C [address] [address] Assigned PCP 07/30/20 Pietro Wills MD [address] [place] [address] Assigned Heart and Vascular Provider 12/14/22 06/26/24 Tank Bucio MD [address] [facility] [address] [place] [address] Physician slip cover maker 12/01/23 documented as of this encounter
--- OUTSIDE RECORDS SUMMARY | 2024-07-20 16:38 | XMS_ITS | Encounter Summary ---
Author Organization [facility] Address [address] [place] [address] Care Team Providers Care Brazer Electronic Name Role Phone Salina Doherty MD Unavailable [phone] Carrillo Ware APRN MARKETING STRATEGY ANALYST Unavailable [phone] Hillary Unger MD Primary Care P rovider SolitarioAngelica golden NP Unavailable [phone] Nelson Arroyo PA-C Unavailable Hillary Unger MD Unavailable Hillary Unger MD Unavailable Hillary Unger MD Unavailable Nelson Arroyo PA-C Unavailable [phone] Nelson Arroyo PA-C Primary Care Provider Chinyere Barbour Unavailable Unavailable Nelson Arroyo PA-C Unavailable [phone] Pietro Wills MD Unavailable [phone] Tank Bucoi MD Unavailable [phone] Encounter Details Date Type Department Care Team (Late st Contact Info) Description 02/06/2018 [facility] [address] [place] [address] Jacquelyn Guillen LPN Social History Tobacco Use [...] PM CDT Legal Sex Female 3:44 AM GUEST SERVICE MANAGER Gender Identity Female 10/03/2020 8:33 PM CDT Sexual Orientation Straight 07/01/2018 3: 40 PM GUEST SERVICE MANAGER documented as of this encounter Plan of Treatment Not on file documented as of this encounter Visit Diagnoses Not on filedocumented in this encounter Additional Health Concerns Assessment Noted Time PHQ-9 Depression Total Score: 6 08/30/19 18 7:34 AM CDT documented as of this encounter Care Teams Brazer Electronic Relationship Specialty Start Date End Date Hillary Unger MD [address] [place] [address] PCP - General Internal Medicine 08/21/15 08/05/18 Nelson Arroyo PA-C [address] [place] [address] PCP - Assigned PCP 04/12/18 05/02/18 Hillary Unger MD [address] [place] [address] PCP - Assigned PCP 02/01/18 04/11/18 Hillary Unger MD [address] [place] [address] PCP - Assigned PCP 05/03/18 07/07/18 Nelson Arroyo PA-C [address] [place] [address] PCP - General Physician Photographic Aide - Medical 08/06/18 Salina Doherty MD Internal Medicine 12/01/14 Carrillo Ware APRN MARKETING STRATEGY ANALYST [address] [place] [address] Nurse Practitioner Nurse Practitioner 12/16/14 Angelica Jerez NP [facility] [address] [place] [address] Nurse Practitioner Nurse Practitioner - Family 07/12/16 Hillary Unger MD [address] [place], [place] 639197 Assigned PCP 05/03/18 07/18/18 Nelson Arroyo PA-C [address] [place] [address] Assigned PCP 07/05/18 07/29/20 Chinyere Barbour Personal Advocate & Liaison (PAL) 01/31/20 04/26/20 Nelson Arroyo PA-C [address] [place] [address] Assigned PCP 07/30/20 Pietro Wills MD [address] 279325 Assigned Heart and Vascular Provider 12/14/22 06/26/24 Tank Bucio MD [address], [address] 172627 Physician manager field sales 12/01/23 documented as of this encounter
--- OUTSIDE RECORDS SUMMARY | 2024-07-20 16:38 | XMS_ITS | Encounter Summary ---
Author Organization [facility] Address [address] [place] [address]. [place] [address] Care Team Providers Care Manager Sports Name Role Phone Salina Doherty MD Unavailable [phone] Carrillo Ware APRN CHIEF CRNA Unavailable [phone] SolitarioAngelica golden NP Unavailable [phone] Nelson Arroyo PA-C Primary Care Provider Nelson Arroyo PA-C Unavailable [phone] Pietro Wills MD Unavailable Tank Bucio MD Unavailable [phone] Encounter Details Date Type Department Care Team (Late st Contact Info) Description 11/21/2020 MyC Medical Advice [facility] [address] [place] [address] Nelson Arroyo PA-C [address] [place] [address] Social History Tobacco Use Types [...] PM CDT Legal Sex Female 3:44 AM STORAGE BATTERY CHARGER Gender Identity Female 10/03/2020 8:33 PM CDT Sexual Orientation Straight 07/01/2018 3: 40 PM STORAGE BATTERY CHARGER COVID-19 Exposure Response Date Recorded In the [...] as of this encounter Care Teams Manager Sports Relationship Specialty Start Date End Date Nelson Arroyo PA-C [address] [place] [address] PCP - General Physician Legislative Assistant - Medical 08/06/18 Salina Doherty MD Internal Medicine 12/01/14 Carrillo Ware APRN CHIEF CRNA [address] [place] [address] Nurse Practitioner Nurse Practitioner 12/16/14 Angelica Jerez NP [facility] [address] [place] [address] Nurse Practitioner Nurse Practitioner - Family 07/12/16 Nelson Arroyo PA-C [address] [place] [address] Assigned PCP 07/30/20 Pietro Wills MD [address] [place] [address] Assigned Heart and Vascular Provider 12/14/22 06/26/24 Tank Bucio MD [address] [facility] [address] [place] [address] Physician client program manager 12/01/23 documented as of this encounter
--- OUTSIDE RECORDS SUMMARY | 2024-07-20 16:38 | XMS_ITS | Encounter Summary ---
Author Organization [facility] Address [address] [place] [address] Care Team Providers Care Engineering Vice President Name Role Phone Salina Doherty MD Unavailable [phone] Carrillo Ware APRN LOCKER ROOM ATTENDANT Unavailable Hillary Unger MD Primary Care P rovider [facility] PartnersAngelica NP Unavailable [phone] Nelson Arroyo PA-C Unavailable Hillary Unger MD Unavailable Hillary Unger MD Unavailable Hillary Unger MD Unavailable Nelson Arroyo PA-C Unavailable [phone] Nelson Arroyo PA-C Primary Care Provider Chinyere Barbour Unavailable Unavailable Nelson Arroyo PA-C Unavailable [phone] Pietro Wills MD Unavailable [phone] Tank Bucio MD Unavailable [phone] Reason for Visit * Reason Onset Date Comments MyChart Communication 08/26/2016 Encounter Details Date Type Department Care Team (Late st Contact Info) Description 08/26/[address] [place] [address] Hillary Unger MD [address] [place] [address] MyChart Communication Social History Tobacco Use Types [...] PM CDT Legal Sex Female 3:44 AM REFRACTORY TECHNICIAN Gender Identity Female 10/03/2020 8:33 PM CDT Sexual Orientation Straight 07/01/2018 3: 40 PM REFRACTORY TECHNICIAN documented as of this encounter Miscellaneous [...] Total Score: 7 07/14/19 17 7:14 AM REFRACTORY TECHNICIAN documented as of this encounter Care Teams Engineering Vice President Relationship Specialty Start Date End Date Hillary Unger MD [address] [place] [address] PCP - General Internal Medicine 08/21/15 08/05/18 Nelson Arroyo PA-C [address] [place] [address] PCP - Assigned PCP 04/12/18 05/02/18 Hillary Unger MD [address] [place] [address] PCP - Assigned PCP 02/01/18 04/11/18 Hillary Unger MD [address] [place] [address] PCP - Assigned PCP 05/03/18 07/07/18 Nelson Arroyo PA-C [address] [place] [address] PCP - General Physician Planer Offbearer - Medical 08/06/18 Salina Doherty MD Internal Medicine 12/01/14 Carrillo Ware APRN LOCKER ROOM ATTENDANT [address] [place] [address] Nurse Practitioner Nurse Practitioner 12/16/14 Agnelica Jerez NP [facility] [address] [place] [address] Nurse Practitioner Nurse Practitioner - Family 07/12/16 Hillary Unger MD [address] [place] [address] Assigned PCP 05/03/18 07/18/18 Nelson Arroyo PA-C [address] [address] Assigned PCP 07/05/18 07/29/20 Chinyere Barbour Personal Advocate & Liaison (PAL) 01/31/20 04/26/20 Nelson Arroyo PA-C [address] [place] [id number] Assigned PCP 07/30/20 Pietro Wills MD [address] [place] [address] Assigned Heart and Vascular Provider 12/14/22 06/26/24 Tank Bucio MD [address] [facility], [address] [address] Physician drapery seamstress 12/01/23 documented as of this encounter
--- OUTSIDE RECORDS SUMMARY | 2024-07-20 16:38 | XMS_ITS | Encounter Summary ---
Author Organization [facility] Address [address] [place] [address] Care Team Providers Care Hazmat Technician Name Role Phone Salina Doherty MD Unavailable [phone] Carrillo Ware APRN WINDOW CUTTER Unavailable [phone] Hillary Unger MD Primary Care P rovider [facility] NP Unavailable [phone] Nelson Arroyo PA-C Unavailable [phone] Hillary Unger MD Unavailable Hillary Unger MD Unavailable Hillary Unger MD Unavailable Nelson Arroyo PA-C Unavailable [phone] Nelson Arroyo PA-C Primary Care Provider Chinyere Barbour Unavailable Unavailable Nelson Arroyo PA-C Unavailable [phone] Pietro Wills MD Unavailable [phone] Tank Bucio MD Unavailable [phone] Reason for Visit * Reason Onset Date Comments Refill Request 12/31/2017 tizanidine Encounter Details Date Type Department Care Team (Late st Contact Info) Description 12/31/2017 [place] [address] [place] [address] Hillary Unger MD [address] [place] [place] [address] Refill Request (tizanidine) Social History Tobacco Use [...] PM CDT Legal Sex Female 3:44 AM PAY STATION COLLECTOR Gender Identity Female 10/03/2020 8:33 PM CDT Sexual Orientation Straight 07/01/2018 3: 40 PM PAY STATION COLLECTOR documented as of this encounter Plan of Treatment Not on file documented as of this encounter Visit Diagnoses Diagnosis Muscle spasm Spasm of muscle Cervicalgia documented in this encounter Additional Health Concerns Assessment Noted Time PHQ-9 Depression Total Score: 6 08/30/19 18 7:34 AM CDT documented as of this encounter Care Teams Hazmat Technician Relationship Specialty Start Date End Date Hillary Unger MD [address] [place] [address] PCP - General Internal Medicine 08/21/15 08/05/18 Nelson Arroyo PA-C [address] [place] [address] PCP - Assigned PCP 04/12/18 05/02/18 Hillary Unger MD [address] [place] [address] PCP - Assigned PCP 02/01/18 04/11/18 Hillary Unger MD [address] [place] [address] PCP - Assigned PCP 05/03/18 07/07/18 Nelson Arroyo PA-C [address] [address] PCP - General Physician Maintenance Leader - Medical 08/06/18 Salina Doherty MD Internal Medicine 12/01/14 Carrillo Ware APRN WINDOW CUTTER [address] [place] [address]25085 Nurse Practitioner Nurse Practitioner 12/16/14 Angelica Jerez NP [facility] [address] [place] [address] Nurse Practitioner Nurse Practitioner - Family 07/12/16 Hillary Unger MD [address] [facility] [place] [address] Assigned PCP 05/03/18 07/18/18 Nelson Arroyo PA-C [address] [address] Assigned PCP 07/05/18 07/29/20 Chinyere Barbour Personal Advocate & Liaison (PAL) 01/31/20 04/26/20 Nelson Arroyo PA-C [address] [address] Assigned PCP 07/30/20 Pietro Wills MD [address] [place] [address] Assigned Heart and Vascular Provider 12/14/22 06/26/24 Tank Bucio MD [address] [facility] [address] [place] [address] Physician crime lab technician 12/01/23 documented as of this encounter
--- OUTSIDE RECORDS SUMMARY | 2024-07-20 16:38 | XMS_ITS | Encounter Summary ---
Author Organization [facility] Address [address] [place] [address]. [place] [address] Care Team Providers Care Certified Technician Specialist Name Role Phone Salina Doherty MD Unavailable Carrillo Ware APRN METAL SPRAYER PROTECTIVE COATING Unavailable SolitarioAngelica golden NP Unavailable [phone] Nelson Arroyo PA-C Primary Care Provider Nelson Arroyo PA-C Unavailable Pietro Wills MD Unavailable [phone] Tank Bucio MD Unavailable [phone] Encounter Details Date Type Department Care Team (Late st Contact Info) Description 02/09/2021 MyC Medical Advice [facility] [address] [place] [address] Nelson Arroyo PA-C [address] [place] [address] Social History Tobacco Use Types [...] PM CDT Legal Sex Female 3:44 AM SENIOR RESEARCH ENGINEER Gender Identity Female 10/03/2020 8:33 PM CDT Sexual Orientation Straight 07/01/2018 3: 40 PM SENIOR RESEARCH ENGINEER documented as of this encounter Plan of Treatment Not on file documented as of this encounter Visit Diagnoses Not on filedocumented in this encounter Additional Health Concerns Assessment Noted Time PHQ-9 Depression Total Score: 4 10/19/19 21 5:12 PM CDT documented as of this encounter Care Teams Certified Technician Specialist Relationship Specialty Start Date End Date Nelson Arroyo PA-C [address] [address] PCP - General Physician Armature Winder - Medical 08/06/18 Salina Doherty MD Internal Medicine 12/01/14 Carrillo Ware APRN METAL SPRAYER PROTECTIVE COATING [address] [place] [address]155 Nurse Practitioner Nurse Practitioner 12/16/14 Angelica Jerez NP [place] [address] [address] [place], [place] 9[address] Nurse Practitioner Nurse Practitioner - Family 07/12/16 Nelson Arroyo PA-C [address] [address] Assigned PCP 07/30/20 Pietro Wills MD [address] [address] Assigned Heart and Vascular Provider 12/14/22 06/26/24 Tank Bucio MD [address], [facility] [address] [place] [address] Physician towing pilot 12/01/23 documented as of this encounter
--- OUTSIDE RECORDS SUMMARY | 2024-07-20 16:38 | XMS_ITS | Encounter Summary ---
Author Organization [facility] Address [address] [place] [address]. [place] [address] Care Team Providers Care Psychology Assistant Name Role Phone Salina Doherty MD Unavailable Carrillo Ware APRN DAY WORKER Unavailable SolitarioAngelica golden NP Unavailable [phone] Nelson Arroyo PA-C Primary Care Provider Nelson Arroyo PA-C Unavailable Pietro Wills MD Unavailable Tank Bucio MD Unavailable Reason for Visit * Reason Onset Date Comments Medication Refill Refill Request 12/19/2020 Encounter Details Date Type Department Care Team (Late st Contact Info) Description 12/19/[address] [facility] [address] [place] [address] Vidhi Coffman MD [address] [place] [address] Medication Refill; Refill Request Social History Tobacco [...] PM CDT Legal Sex Female 3:44 AM DIP PAINTER Gender Identity Female 10/03/2020 8:33 PM CDT Sexual Orientation Straight 07/01/2018 3: 40 PM DIP PAINTER COVID-19 Exposure Response Date Recorded In the [...] documented as of this encounter Care Teams Psychology Assistant Relationship Specialty Start Date End Date Nelson Arroyo PA-C [address] [place] [address] PCP - General Physician Corner Trimmer Operator - Medical 08/06/18 Salina Doherty MD Internal Medicine 12/01/14 Carrillo Ware APRN DAY WORKER [address] [place] [address] Nurse Practitioner Nurse Practitioner 12/16/14 Angelica Jerez NP [address] [place] [address] Nurse Practitioner Nurse Practitioner - Family 07/12/16 Nelson Arroyo PA-C [address] [place] [address] Assigned PCP 07/30/20 Pietro Wills MD [address] [place] [address] Assigned Heart and Vascular Provider 12/14/22 06/26/24 Tank Bucio MD [address], [place] [address] [place] [address] Physician stock plan administrator 12/01/23 documented as of this encounter
--- OUTSIDE RECORDS SUMMARY | 2024-07-20 16:38 | XMS_ITS | Encounter Summary ---
Author Organization [facility] Address [address] [place] [address] Care Team Providers Care Web Operations Lead Name Role Phone Salina Doherty MD Unavailable [phone] Carrillo Ware APRN MANAGER COUNCIL Unavailable Hillary Unger MD Primary Care P rovider Count Includes [facility] NP Unavailable [phone] Nelson Arroyo PA-C Unavailable Nelson Arroyo PA-C Primary Care Provider Chinyere Barbour Unavailable Unavailable Nelson Arroyo PA-C Unavailable [phone] Pietro Wills MD Unavailable [phone] Tank Bucio MD Unavailable [phone] Reason for Visit * Reason Onset Date Comments Refill Request 08/03/2018 Encounter Details Date Type Department Care Team (Late st Contact Info) Description 08/03/2018 MyC Refill [facility] [address] [facility] [address] [place] [address] Hillary Unger MD [facility] [place] [address] Refill Request Social History Tobacco [...] PM CDT Legal Sex Female 3:[address] LOCKSMITH Gender Identity Female 10/03/2020 8:33 PM CDT Sexual Orientation Straight 07/01/2018 3: [address] LOCKSMITH documented as of this encounter Miscellaneous Notes [...] MyChart Physical Adult with Nelson Arroyo PA-C [facility] [address] [place] [phone] documented in this encounter Plan of Treatment Not on file documented as of this encounter Visit Diagnoses Diagnosis Generalized anxiety disorder Major depressive disorder, recurrent episode, moderate (H) Major depressive disorder, recurrent episode, moderate documented in this encounter Additional Health Concerns Assessment Noted Time PHQ-9 Depression Total Score: 9 05/15/19 19 2:[address] LOCKSMITH documented as of this encounter Care Teams Web Operations Lead Relationship Specialty Start Date End Date Hillary Unger MD [address] [place] [address] PCP - General Internal Medicine 08/21/15 08/05/18 Nelson Arroyo PA-C [address] [facility] [place] [address] PCP - General Physician Enrollment Services Dean - Medical 08/06/18 Salina Doherty MD Internal Medicine 12/01/14 Carrillo Ware APRN MANAGER COUNCIL [address] [place] [address] Nurse Practitioner Nurse Practitioner 12/16/14 Angelica Jerez TRANSPLANT RN [facility] [address] [address] Nurse Practitioner Nurse Practitioner - Family 07/12/16 Nelson Arroyo PA-C [address] [place] [address] Assigned PCP 07/05/18 07/29/20 Chinyere Barbour Personal Advocate & Liaison (PAL) 01/31/20 04/26/20 Nelson Arroyo PA-C [address] [place] [id number] Assigned PCP 07/30/20 Pietro Wills MD [address] [place] [address] Assigned Heart and Vascular Provider 12/14/22 06/26/24 Tank Bucio MD [address], [place] [address] [place] [address] Physician home performance consultant 12/01/23 documented as of this encounter
--- OUTSIDE RECORDS SUMMARY | 2024-07-20 16:38 | XMS_ITS | Encounter Summary ---
Author Organization [facility] Address [address] [place] [address]. [place] [address] Care Team Providers Care Keyseater Operator Name Role Phone Salina Doherty MD Unavailable [phone] Carrillo Ware APRN PHOTOGRAPHER'S ASSISTANT Unavailable [phone] SolitarioAngelica golden NP Unavailable [phone] Nelson Arroyo PA-C Unavailable [phone] Nelson Arroyo PA-C Primary Care Provider [phone] Chinyere Barbour Unavailable Unavailable Nelson Arroyo PA-C Unavailable Pietro Wills MD Unavailable Tank Bucio MD Unavailable Reason for Visit * Reason Onset Date Comments Medication Refill 10/19/2018 clonazePAM (KL ONOPIN) 0.5 MG tablet Encounter Details Date Type Department Care Team (Late st Contact Info) Description 10/18/[address], [address] [place] [address] Nelson Arroyo PA-C [address] [place] [address] Medication Refill (clonazePAM (KLONOPIN) 0.5 [...] PM CDT Legal Sex Female 3:44 AM ADDICTION MEDICINE PHYSICIAN Gender Identity Female 10/03/2020 8:33 PM CDT Sexual Orientation Straight 07/01/2018 3: 40 PM ADDICTION MEDICINE PHYSICIAN documented as of this encounter Miscellaneous Notes * Telephone Encounter - Lexi Reina RN - 10/20/2018 3:38 PM CDT Routing refill request to provider for review/approval because: Drug not on the [facility] refill protocol Last fill 5.2.19 RECRUITMENT OFFICER: 6.18.19 Last filled 5.3.19, [facility] providers had filled prior to August [...] SHOULD BE DELETED.) Last Office Visit with [facility] primary care provider: 08/06/2018 Future Office visit: [...] OXY13, PPX13, BUP13 Processing: Fax Rx to [facility] [email or web address] RECRUITMENT OFFICER checked in past 3 months? No, route to RN 05/13/18 documented in this encounter Plan of Treatment Not on file documented as of this encounter Visit Diagnoses Diagnosis Generalized anxiety disorder documented in this encounter Additional Health Concerns Assessment Noted Time PHQ-9 Depression Total Score: 13 019 7:04 AM CDT documented as of this encounter Care Teams Keyseater Operator Relationship Specialty Start Date End Date Nelson Arroyo PA-C [address] [place], [place] [id number] PCP - General Physician Customer Quality Engineer - Medical 08/06/18 Salina Doherty MD Internal Medicine 12/01/14 Carrillo Ware APRN PHOTOGRAPHER'S ASSISTANT [address] [place] [address] Nurse Practitioner Nurse Practitioner 12/16/14 Angelica Jerez NP [address] [id number] Nurse Practitioner Nurse Practitioner - Family 07/12/16 Nelson Arroyo PA-C [address] [place] [address] Assigned PCP 07/05/18 07/29/20 Chinyere Barbour Personal Advocate & Liaison (PAL) 01/31/20 04/26/20 Nelson Arroyo PA-C [address] [place] [address] Assigned PCP 07/30/20 Pietro Wills MD [address] [place] [address] Assigned Heart and Vascular Provider 12/14/22 06/26/24 Tank Bucio MD [address] [facility] [address] [place] [address] Physician hydroblaster 12/01/23 documented as of this encounter
--- OUTSIDE RECORDS SUMMARY | 2024-07-20 16:38 | XMS_ITS | Encounter Summary ---
Author Organization [facility] Address [address] [place] [address] Care Team Providers Care Bottoming Machine Operator Name Role Phone Salina Doherty MD Unavailable [phone] Carrillo Ware APRN LINING SETTER Unavailable Hillary Unger MD Primary Care [facility]ider [facility] Unavailable [phone] Nelson Arroyo PA-C Unavailable Hillary Unger MD Unavailable Hillary Unger MD Unavailable Hillary Unger MD Unavailable Nelson Arroyo PA-C Unavailable [phone] Nelson Arroyo PA-C Primary Care Provider [phone] Chinyere Barbour Unavailable Unavailable Nelson Arroyo PA-C Unavailable [phone] Pietro Wills MD Unavailable [phone] Tank Bucio MD Unavailable Encounter Details Date Type Department Care Team (Late st Contact Info) Description 02/24/2018 [facility] [address] [place] [address] Shira Chow, INSURANCE VERIFICATION SPECIALIST Social History Tobacco Use Types Packs/Day Years [...] PM CDT Legal Sex Female 3:44 AM SUPPLEMENTAL NURSE Gender Identity Female 10/03/2020 8:33 PM CDT Sexual Orientation Straight 07/01/2018 3: 40 PM SUPPLEMENTAL NURSE documented as of this encounter Plan of Treatment Not on file documented as of this encounter Visit Diagnoses Not on filedocumented in this encounter Additional Health Concerns Assessment Noted Time PHQ-9 Depression Total Score: 6 08/30/19 18 7:34 AM CDT documented as of this encounter Care Teams Bottoming Machine Operator Relationship Specialty Start Date End Date Hillary Unger MD [address] [place] [address] PCP - General Internal Medicine 08/21/15 08/05/18 Nelson Arroyo PA-C [address] [place] [address] PCP - Assigned PCP 04/12/18 05/02/18 Hillary Unger MD [address] [place] [address] PCP - Assigned PCP 02/01/18 04/11/18 Hillary Unger MD [address] [place] [address] PCP - Assigned PCP 05/03/18 07/07/18 Nelson Arroyo PA-C [address] [place] [address] PCP - General Physician Mechanic Sound Technician - Medical 08/06/18 Salina Doherty MD Internal Medicine 12/01/14 Carrillo Ware APRN LINING SETTER [address] [place] [address] Nurse Practitioner Nurse Practitioner 12/16/14 Angelica Jerez [facility] [address] [place] [address] Nurse Practitioner Nurse Practitioner - Family 07/12/16 Hillary Unger MD [address] [place], [place] [address] Assigned PCP 05/03/18 07/18/18 Nelson Arroyo PA-C [address] [place] [address] Assigned PCP 07/05/18 07/29/20 Chinyere Barbour Personal Advocate & Liaison (PAL) 01/31/20 04/26/20 Nelson Arroyo PA-C [address] [address] Assigned PCP 07/30/20 Pietro Wills MD [address] 419005 Assigned Heart and Vascular Provider 12/14/22 06/26/24 Tank Bucio MD [address], [address] [address] Physician talent sourcer 12/01/23 documented as of this encounter
--- OUTSIDE RECORDS SUMMARY | 2024-07-20 16:38 | XMS_ITS | Encounter Summary ---
Author Organization [facility] Address [address] [place] [address]. [place] [address] Care Team Providers Care Interior Block Wirer Name Role Phone Salina Doherty MD Unavailable [phone] Carrillo Ware APRN INDUSTRIAL MECHANIC Unavailable Hillary Unger MD Primary [facility]ider [facility] Unavailable [phone] Nelson Arroyo PA-C Unavailable Nelson Arroyo PA-C Primary Care Provider [phone] Chinyere Barbour Unavailable Unavailable Nelson Arroyo PA-C Unavailable [phone] Pietro Wills MD Unavailable [phone] Tank Bucio MD Unavailable Reason for Visit * Reason Onset Date Comments MyChart Communication 07/19/2018 Encounter Details Date Type Department Care Team (Late st Contact Info) Description 07/19/2018 MyC Medical Advice [address], [address] [place] [address] Nelson Arroyo PA-C [address] [place] [address] MyChart Communication Social History Tobacco [...] PM CDT Legal Sex Female 3:44 AM MAT CUTTER Gender Identity Female 10/03/2020 8:33 PM CDT Sexual Orientation Straight 07/01/2018 3: 40 PM MAT CUTTER documented as of this encounter Miscellaneous Notes * Telephone Encounter - Susanne Zacarias RN - 07/20/2018 1:48 PM CDT Responded to the Pt. Susanne Zacarias RN -- [employer] * Telephone Encounter - Nelson Arroyo [...] Wellbutrin going forward. Susanne Zacarias RN -- [employer] * Telephone Encounter - Susanne Zacarias RN - 07/20/2018 9:00 AM CDT Responded to the Pt. It looks like psych is managing her Wellbutrin. Advised OV for C-diff concerns. Susanne Zacarias, YULI -- [facility] documented in this encounter Plan of Treatment Not on file documented as of this encounter Visit Diagnoses Diagnosis Persistent insomnia Persistent disorder of initiating or maintaining sleep SHANTELL (generalized anxiety disorder) Generalized anxiety disorder documented in this encounter Additional Health Concerns Assessment Noted Time PHQ-9 Depression Total Score: 9 05/15/19 19 2:09 PM MAT CUTTER documented as of this encounter Care Teams Interior Block Wirer Relationship Specialty Start Date End Date Hillary Unger MD [address] [place], [place] [address] PCP - General Internal Medicine 08/21/15 08/05/18 Nelson Arroyo PA-C [address] [place] [address] PCP - General Physician Dental Scheduler - Medical 08/06/18 Salina Doherty MD Internal Medicine 12/01/14 Carrillo Ware APRN INDUSTRIAL MECHANIC [address] [place] [address] Nurse Practitioner Nurse Practitioner 12/16/14 Angelica Jerez NP [facility] [address] [place], [place] 995[address] Nurse Practitioner Nurse Practitioner - Family 07/12/16 Nelson Arroyo PA-C [address] [place] [address] Assigned PCP 07/05/18 07/29/20 Chinyere Barbour Personal Advocate & Liaison (PAL) 01/31/20 04/26/20 Nelson Arroyo PA-C [address] [place] [address] Assigned PCP 07/30/20 Pietro Wills MD [address] [place] [address] Assigned Heart and Vascular Provider 12/14/22 06/26/24 Tank Bucio MD [address], [address] [address] Physician chief of staff 12/01/23 documented as of this encounter
--- OUTSIDE RECORDS SUMMARY | 2024-07-20 16:38 | XMS_ITS | Encounter Summary ---
Author Organization [place] Address [address] [place] [address]. [place] [address] Care Team Providers Care Rate Manager Name Role Phone Salina Doherty MD Unavailable [phone] Carrillo Ware APRN MEDICAL STAFF PHYSICIAN Unavailable [phone] SolitarioAngelica golden NP Unavailable [phone] Nelson Arroyo PA-C Primary Care Provider Nelson Arroyo PA-C Unavailable Pietro Wills MD Unavailable Tank Bcuio MD Unavailable Reason for Visit * Reason Comments Medication Refill Encounter Details Date Type Department Care Team (Late st Contact Info) Description 04/02/2021 Refill [facility] [address] [place] [address] Nelson Arroyo PA-C [address] [place] [address] Medication Refill Social History Tobacco [...] PM CDT Legal Sex Female 3:44 AM FAMILY THERAPIST Gender Identity Female 10/03/2020 8:33 PM CDT Sexual Orientation Straight 07/01/2018 3: 40 PM FAMILY THERAPIST documented as of this encounter Miscellaneous [...] Encounters: 11/22/20 (!) 153/93 Manisha Connor RN LY THERAPIST documented in this encounter Plan of Treatment Not on file documented as of this encounter Visit Diagnoses Diagnosis Major depressive disorder, recurrent episode, moderate (H) Major depressive disorder, recurrent episode, moderate Generalized anxiety disorder Palpitations documented in this encounter Additional Health Concerns Assessment Noted Time PHQ-9 Depression Total Score: 0 02/24/20 7:01 AM CDT documented as of this encounter Care Teams Rate Manager Relationship Specialty Start Date End Date Nelson Arroyo PA-C [address] [place] [address] PCP - General Physician Residential Nurse - Medical 08/06/18 Salina Doherty MD Internal Medicine 12/01/14 Carrillo Ware APRN MEDICAL STAFF PHYSICIAN [address] [place] [address] Nurse Practitioner Nurse Practitioner 12/16/14 Angelica Jerez NP [facility] [address] [place] [address] Nurse Practitioner Nurse Practitioner - Family 07/12/16 Nelson Arroyo PA-C [address] [place] [address] Assigned PCP 07/30/20 Pietro Wills MD [address] [place] [address] Assigned Heart and Vascular Provider 12/14/22 06/26/24 Tank Bucio MD [address], [facility] [address] [place] [address] Physician director trust 12/01/23 documented as of this encounter
--- OUTSIDE RECORDS SUMMARY | 2024-07-20 16:38 | XMS_ITS | Encounter Summary ---
Author Organization [place] Address [address] [place] [address]. [place] [address] Care Team Providers Care Car Body Designer Name Role Phone Salina Doherty MD Unavailable Carrillo Ware APRN SIDING APPLICATOR Unavailable SolitarioAngelica golden NP Unavailable [phone] Nleson Arroyo PA-C Primary Care Provider Nelson Arroyo PA-C Unavailable Pietro Wills MD Unavailable Tank Bucio MD Unavailable [phone] Reason for Visit * Reason Onset Date Comments Refill Request 01/31/2021 Encounter Details Date Type Department Care Team (Late st Contact Info) Description 01/31/2021 MyC Refill [facility] [address] [place] [address] Nelson Arroyo PA-C [address] [place] [address] Refill Request Social History Tobacco [...] PM CDT Legal Sex Female 3:44 AM CASSEROLE PREPARER Gender Identity Female 10/03/2020 8:33 PM CDT Sexual Orientation Straight 07/01/2018 3: 40 PM CASSEROLE PREPARER documented as of this encounter Plan of Treatment Not on file documented as of this encounter 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), predominantly inattentive type documented in this encounter Additional Health Concerns Assessment Noted Time PHQ-9 Depression Total Score: 4 10/19/19 21 5:12 PM CDT documented as of this encounter Care Teams Car Body Designer Relationship Specialty Start Date End Date Nelson Arroyo PA-C [address] [place] [address] PCP - General Physician Library Assistant - Medical 08/06/18 Salina Doherty MD Internal Medicine 12/01/14 Carrillo Ware APRN SIDING APPLICATOR [address] [place] [id number] Nurse Practitioner Nurse Practitioner 12/16/14 Angelica Jerez NP [address] [address]2447 Nurse Practitioner Nurse Practitioner - Family 07/12/16 Nelson Arroyo PA-C [address] [address] Assigned PCP 07/30/20 Pietro Wills MD [address] 496925 Assigned Heart and Vascular Provider 12/14/22 06/26/24 Tank Bucio MD [address], [address] [address] Physician remote operations producer 12/01/23 documented as of this encounter
--- OUTSIDE RECORDS SUMMARY | 2024-07-20 16:38 | XMS_ITS | Encounter Summary ---
Author Organization [facility] Address [address] [place] [address]. [place] [address] Care Team Providers Care Shoe Stainer Name Role Phone Salian Doherty MD Unavailable [phone] Carrillo Ware APRN TOOL MAKER Unavailable [phone] SolitarioAngelica golden NP Unavailable [phone] Nelson Arroyo PA-C Primary Care Provider Nelson Arroyo PA-C Unavailable [phone] Pietro Wills MD Unavailable Tank Bucio MD Unavailable [phone] Reason for Visit * Reason Comments Medication Refill Encounter Details Date Type Department Care Team (Late st Contact Info) Description 10/30/[address], [address] [place] [address] [place] [address] [place] [address] Medication Refill Social History Tobacco [...] PM CDT Legal Sex Female 3:44 AM 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 ([facility] [address] [facility] [address] [facility] [id number] Routing refill request to provider for review/approval [...] as of this encounter Care Teams Shoe Stainer Relationship Specialty Start Date End Date Nelson Arroyo PA-C [address] [address] PCP - General Physician Religious Leader - Medical 08/06/18 Salina Doherty MD Internal Medicine 12/01/14 Carrillo Ware APRN TOOL MAKER [address] [place] [address] 366665 Nurse Practitioner Nurse Practitioner 12/16/14 Angelica Jerez NP [facility] [address] [place] [address] Nurse Practitioner Nurse Practitioner - Family 07/12/16 Nelson Arroyo PA-C [address] [address] Assigned PCP 07/30/20 Pietro Wills MD [address] [place] [address] Assigned Heart and Vascular Provider 12/14/22 06/26/24 Tank Bucio MD [address], [facility] [address] [place] [address] Physician teaching fellow 12/01/23 documented as of this encounter
--- OUTSIDE RECORDS SUMMARY | 2024-07-20 16:38 | XMS_ITS | Encounter Summary ---
Author Organization [place] Address [address] [place] [address] Care Team Providers Care Yard Goods Salesperson Name Role Phone Salina Doherty MD Unavailable [phone] Carrillo Ware APRN FEATHER EDGER Unavailable Hillary Unger MD Primary Care P rovider [facility]Angelica NP Unavailable [phone] Nelson Arroyo PA-C Unavailable [phone] Hillary Unger MD Unavailable Hillary Unger MD Unavailable Hillary Unger MD Unavailable Nelson Arroyo PA-C Unavailable [phone] Nelson Arroyo PA-C Primary Care Provider Chinyere Barbour Unavailable Unavailable Nelson Arroyo PA-C Unavailable [phone] Pietro Wills MD Unavailable [phone] Tank Bucio MD Unavailable [phone] Reason for Visit * Reason Onset Date Comments Refill Request 01/02/2018 Encounter Details Date Type Department Care Team (Late st Contact Info) Description 01/02/[address] [place] [address] Hillary Unger MD [address] [place], [place] 63[address] Refill Request Social History Tobacco Use Types [...] PM CDT Legal Sex Female 3:44 AM HYDROELECTRIC POWERPLANT SUPERVISOR Gender Identity Female 10/03/2020 8:33 PM CDT Sexual Orientation Straight 07/01/2018 3: 40 PM HYDROELECTRIC POWERPLANT SUPERVISOR documented as of this encounter Plan of Treatment Not on file documented as of this encounter 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), predominantly inattentive type documented in this encounter Additional Health Concerns Assessment Noted Time PHQ-9 Depression Total Score: 6 08/30/19 18 7:34 AM CDT documented as of this encounter Care Teams Yard Goods Salesperson Relationship Specialty Start Date End Date Hillary Unger MD [address] [place] [address] PCP - General Internal Medicine 08/21/15 08/05/18 Nelson Arroyo PA-C [address] [place] [address] PCP - Assigned PCP 04/12/18 05/02/18 Hillary Unger MD [address] [place] [address] PCP - Assigned PCP 02/01/18 04/11/18 Hillary Unger MD [address] [place] [address] PCP - Assigned PCP 05/03/18 07/07/18 Nelson Arroyo PA-C [address] [place] [address] PCP - General Physician Hydrometer Finisher - Medical 08/06/18 Salina Doherty MD Internal Medicine 12/01/14 Carrillo Ware APRN FEATHER EDGER [address] [place] [address] Nurse Practitioner Nurse Practitioner 12/16/14 Angelica Jerez NP [facility] [address] [place] [address] Nurse Practitioner Nurse Practitioner - Family 07/12/16 Hillary Unger MD [address] [place] [address] Assigned PCP 05/03/18 07/18/18 Nelson Arroyo PA-C [address] [place] [address] Assigned PCP 07/05/18 07/29/20 Chinyere Barbour Personal Advocate & Liaison (PAL) 01/31/20 04/26/20 Nelson Arroyo PA-C [address] [place] [address] Assigned PCP 07/30/20 Pietro Wills MD [address] [place] [address] Assigned Heart and Vascular Provider 12/14/22 06/26/24 Tank Bucio MD [address] [address] Physician computer help desk representative 12/01/23 documented as of this encounter
--- OUTSIDE RECORDS SUMMARY | 2024-07-20 16:38 | XMS_ITS | Encounter Summary ---
Author Organization [place] Address [address] [place] [address]. [place] [address] Care Team Providers Care Clinical Consultant Name Role Phone Salina Doherty MD Unavailable [phone] Carrillo Ware APRN ACCOUNTING PRACTICE MANAGER Unavailable SolitarioAngelica golden NP Unavailable [phone] Nelson Arroyo PA-C Primary Care Provider Nelson Arroyo PA-C Unavailable [phone] Pietro Wills MD Unavailable Tank Bucio MD Unavailable [phone] Reason for Visit * Reason Comments Medication Refill Encounter Details Date Type Department Care Team (Late st Contact Info) Description 10/30/2020 Refill [facility] [address] [place] [address] Nelson Arroyo PA-C [address] [place] [address] Medication Refill Social History Tobacco [...] PM CDT Legal Sex Female 3:44 AM CHICKEN HATCHERY HELPER Gender Identity Female 10/03/2020 8:33 PM CDT Sexual Orientation Straight 07/01/2018 3: 40 PM CHICKEN HATCHERY HELPER COVID-19 Exposure Response Date Recorded In the [...] Mishel Walker MD, RI PROC RM 2 [facility] [address] [facility] [address] [facility] [address] Routing refill request to provider for review/approval because: Drug not on the [facility], [facility] or [facility] refill protocol or controlled substance Minda [...] as of this encounter Care Teams Clinical Consultant Relationship Specialty Start Date End Date Nelson Arroyo PA-C [address] [place] [address] PCP - General Physician Qual Field Manager - Medical 08/06/18 Salina Doherty MD Internal Medicine 12/01/14 Carrillo Ware APRN ACCOUNTING PRACTICE MANAGER [address] [place] [address] Nurse Practitioner Nurse Practitioner 12/16/14 Angelica Jerez REGISTERED NURSE FETAL [facility] [address] [place], [place] [address] Nurse Practitioner Nurse Practitioner - Family 07/12/16 Nelson Arroyo PA-C [address] [place] [address] Assigned PCP 07/30/20 Pietro Wills MD [address] [place] [address] Assigned Heart and Vascular Provider 12/14/22 06/26/24 Tank Bucio MD [address] [facility], [address] [address] Physician packer denture 12/01/23 documented as of this encounter
--- OUTSIDE RECORDS SUMMARY | 2024-07-20 16:38 | XMS_ITS | Encounter Summary ---
Author Organization [facility] Address [address] [place] [address]. [place] [address] Care Team Providers Care Payroll Benefits Clerk Name Role Phone Salina Doherty MD Unavailable Carrillo Ware APRN WASTE WATER OPERATOR Unavailable SolitarioAngelica golden NP Unavailable [phone] Nelson Arroyo PA-C Primary Care Provider Nelson Arroyo PA-C Unavailable Pietro Wills MD Unavailable Tank Bucio MD Unavailable [phone] Reason for Visit * Reason Onset Date Comments Prior Auth - Medication 10/19/2020 EPINEPHr ine (ANY BX GENERIC EQUIV) 0.3 MG/0.3ML injection 2-pack Encounter Details Date Type Department Care Team (Late st Contact Info) Description 10/19/2020 Telephone [facility] [address] [place] [address] Nelson Arroyo PA-C [address] [place] [address] Prior Auth - Medication (EPINEPHrine [...] CDT Legal Sex Female 3:44 AM SPECIAL SERVICES DIRECTOR Gender Identity Female 10/03/2020 8:33 PM CDT Sexual Orientation Straight 07/01/2018 3: 40 PM SPECIAL SERVICES DIRECTOR COVID-19 Exposure Response Date Recorded In [...] Previously Tried and Failed: Rationale: Insurance Name: [facility] Bin: [id number] PCN: [id number] Group: [id number] Pharmacy Information (if different than what is on RX) Name: Phone: documented in this encounter Plan of Treatment Not on file documented as of this encounter Visit Diagnoses Not on filedocumented in this encounter Additional Health Concerns Assessment Noted Time PHQ-9 Depression Total Score: 4 10/19/19 21 5:12 PM CDT documented as of this encounter Care Teams Payroll Benefits Clerk Relationship Specialty Start Date End Date Nelson Arroyo PA-C [address] [place] [address] PCP - General Physician Gluing Machine Feeder - Medical 08/06/18 Salina Doherty MD Internal Medicine 12/01/14 Carrillo Ware APRN WASTE WATER OPERATOR [address] [place] [id number] Nurse Practitioner Nurse Practitioner 12/16/14 Angelica Jerez NP [facility] [address] [place], [place] [phone] Nurse Practitioner Nurse Practitioner - Family 07/12/16 Nelson Arroyo PA-C [address] [place] [address] Assigned PCP 07/30/20 Pietro Wills MD [address] [place] [address] Assigned Heart and Vascular Provider 12/14/22 06/26/24 Tank Bucio MD [address], [address] [id number] Physician cyber transport systems specialist 12/01/23 documented as of this encounter
--- OUTSIDE RECORDS SUMMARY | 2024-07-20 16:38 | XMS_ITS | Encounter Summary ---
Author Organization [place] Address [address] [place] [address] Care Team Providers Care Trailer Rental Clerk Name Role Phone Salina Doherty MD Unavailable [phone] Carrillo Ware APRN WORD PROCESSING OPERATOR Unavailable [phone] Hillary Unger MD Primary Care P rovider [facility] NP Unavailable [phone] Nelson Arroyo PA-C Unavailable [phone] Hillary Unger MD Unavailable Hillary Unger MD Unavailable Hillary Unger MD Unavailable Nelson Arroyo PA-C Unavailable [phone] Nelson Arroyo PA-C Primary Care Provider Chinyere Barbour Unavailable Unavailable Nelson Arroyo PA-C Unavailable [phone] Pietro Wills MD Unavailable [phone] Tank Bucio MD Unavailable [phone] Reason for Visit * Reason Onset Date Comments Refill Request 10/02/2016 Encounter Details Date Type Department Care Team (Late st Contact Info) Description 10/02/2016 [facility] Mental Health & Addiction [address] [place] [id number] [place] [address] [place] [address] Refill Request Social History Tobacco Use Types [...] PM CDT Legal Sex Female 3:44 AM COMMERCIAL LINES INSURANCE AGENT Gender Identity Female 10/03/2020 8:33 PM CDT Sexual Orientation Straight 07/01/2018 3: 40 PM COMMERCIAL LINES INSURANCE AGENT documented as of this encounter Miscellaneous Notes * Telephone Encounter - Mariella Patterson RN - 10/03/2016 10:10 AM CDTMessage from [facility]: Original authorizing provider: JACQUE Novak would like a refill of the following medications: buPROPion (WELLBUTRIN XL) 150 MG 24 hr tablet [Angelica Jerez NP] gabapentin (NEURONTIN) 100 MG capsule [Angelica Jerez NP] Preferred pharmacy: [address] Comment: Medication renewals requested in this [...] documented as of this encounter Care Teams Trailer Rental Clerk Relationship Specialty Start Date End Date Hillary Unger MD [address] [facility] [place] [address] PCP - General Internal Medicine 08/21/15 08/05/18 Nelson Arroyo PA-C [address] [place] [address] PCP - Assigned PCP 04/12/18 05/02/18 Hillary Unger MD [address] [place] [address] PCP - Assigned PCP 02/01/18 04/11/18 Hillary Unger MD [address] [place] [address] PCP - Assigned PCP 05/03/18 07/07/18 Nelson Arroyo PA-C [address] [place] [address] PCP - General Physician Client Hr Manager - Medical 08/06/18 Salina Doherty MD Internal Medicine 12/01/14 Carrillo Ware APRN WORD PROCESSING OPERATOR [address] [place] [address] Nurse Practitioner Nurse Practitioner 12/16/14 Angelica Jerez NP [facility] [address] [place], [place] 14[address] Nurse Practitioner Nurse Practitioner - Family 07/12/16 Hillary Unger MD [address] [place] [address] Assigned PCP 05/03/18 07/18/18 Nelson Arroyo PA-C [address] [place] [address] Assigned PCP 07/05/18 07/29/20 Chinyere Barbour Personal Advocate & Liaison (PAL) 01/31/20 04/26/20 Nelson Arroyo PA-C [address] [place] [address] Assigned PCP 07/30/20 Pietro Wills MD [address] [place] [address] Assigned Heart and Vascular Provider 12/14/22 06/26/24 Tank Bucio MD [address], [facility] [address] [place] [address] Physician radio news anchor 12/01/23 documented as of this encounter
--- OUTSIDE RECORDS SUMMARY | 2024-07-20 16:38 | XMS_ITS | Encounter Summary ---
Author Organization [place] Address [address] [place] [address]. [place] [address] Care Team Providers Care Sample Patternmaker Name Role Phone Salina Doherty MD Unavailable Carrillo Ware APRN GYRO COMPASS TESTER Unavailable SolitarioAngelica golden NP Unavailable [phone] Nelson Arroyo PA-C Primary Care Provider [phone] Nelson Arroyo PA-C Unavailable Pietro Wills MD Unavailable [phone] Tank Bucio MD Unavailable [phone] Reason for Visit * Reason Onset Date Comments Refill Request 05/06/2021 Encounter Details Date Type Department Care Team (Late st Contact Info) Description 05/06/2021 MyC Refill [facility] [address] [place] [address] Nelson Arroyo PA-C [address] [place] [address] Refill Request Social History Tobacco [...] PM CDT Legal Sex Female 3:44 AM PARALEGAL LEGAL SECRETARY Gender Identity Female 10/03/2020 8:33 PM CDT Sexual Orientation Straight 07/01/2018 3: 40 PM PARALEGAL LEGAL SECRETARY documented as of this encounter Miscellaneous Notes * Telephone Encounter - Natalie Arthur - 05/14/2021 1:46 PM CST PT had appt with PCP today. -Natalie Arthur Linen Worker LEGAL LEGAL SECRETARY * Telephone Encounter - Carmen Lynn RN - 05/07/2021 11:05 AM PARALEGAL LEGAL SECRETARY Routing refill request to provider for review/approval because: Drug not on the [facility] refill protocol Routing to station to assist with scheduling. *RN did try calling to schedule- LMTCB. AND sent [facility] message. Return in about 6 months (around 04/19/2021) for depression/anxiety med check, ADHD med check. ?? Nelson Arroyo PA-C [facility] Carmen Turcios RN LEGAL LEGAL SECRETARY documented in this encounter Plan of Treatment Not on file documented as of this encounter 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), predominantly inattentive type documented in this encounter Additional Health Concerns Assessment Noted Time PHQ-9 Depression Total Score: 0 02/24/20 21 7:01 AM CDT documented as of this encounter Care Teams Sample Patternmaker Relationship Specialty Start Date End Date Nelson Arroyo PA-C [address] [place] [address] PCP - General Physician Plunger Scoop Operator - Medical 08/06/18 Salina Doherty MD Internal Medicine 12/01/14 Carrillo Ware APRN CNP [address] [place] [address] Nurse Practitioner Nurse Practitioner 12/16/14 Angelica Jerez NP [facility] [address] [place] [address] Nurse Practitioner Nurse Practitioner - Family 07/12/16 Nelson Arroyo PA-C [address] [place] [address] Assigned PCP 07/30/20 Pietro Wills MD [address] [place] [address] Assigned Heart and Vascular Provider 12/14/22 06/26/24 Tank Bucio MD [facility], [address] [address] Physician vice president of software development 12/01/23 documented as of this encounter
--- OUTSIDE RECORDS SUMMARY | 2024-07-20 16:38 | XMS_ITS | Encounter Summary ---
Author Organization [place] Address [address] [place] [address] Care Team Providers Care Air Export Agent Name Role Phone Salina Doherty MD Unavailable [phone] Carrillo Ware APRN CIGARETTE PAPER TESTER Unavailable Hillary Unger MD Primary Care P rovider [facility] NP Unavailable [phone] Nelson Arroyo PA-C Unavailable Hillary Unger MD Unavailable Hillary Unger MD Unavailable Hillary Unger MD Unavailable Nelson Arroyo PA-C Unavailable [phone] Nelson Arroyo PA-C Primary Care Provider Chinyere Barbour Unavailable Unavailable Nelson Arroyo PA-C Unavailable [phone] Pietro Wills MD Unavailable [phone] Tank Bucio MD Unavailable [phone] Reason for Visit * Reason Onset Date Comments Refill Request 02/24/2018 Encounter Details Date Type Department Care Team (Late st Contact Info) Description 02/24/2018 [facility] [address] [place] [address] Hillary Unger MD [address] [place] [address] Refill Request Social History Tobacco Use Types [...] CDT Legal Sex Female 3:44 AM MACHINE STUFFER AUTOMATIC Gender Identity Female 10/03/2020 8:33 PM CDT Sexual Orientation Straight 07/01/2018 3: 40 PM MACHINE STUFFER AUTOMATIC documented as of this encounter Miscellaneous Notes [...] get refills through her. Per pt's previous [facility] message, she has been having trouble with [...] documented as of this encounter Care Teams Air Export Agent Relationship Specialty Start Date End Date Hillary Unger MD [address] [place] [address] PCP - General Internal Medicine 08/21/15 08/05/18 Nelson Arroyo PA-C [address] [place] [address] PCP - Assigned PCP 04/12/18 05/02/18 Hillary Unger MD [address] [place] [address] PCP - Assigned PCP 02/01/18 04/11/18 Hillary Unger MD [address] [place] [address] PCP - Assigned PCP 05/03/18 07/07/18 Nelson Arroyo PA-C [address] [place] [address] PCP - General Physician Chiropractic Doctor - Medical 08/06/18 Salina Doherty MD Internal Medicine 12/01/14 Carrillo Ware APRN CIGARETTE PAPER TESTER [address] [place] [address] Nurse Practitioner Nurse Practitioner 12/16/14 Angelica Jerez NP [facility] [address] [place] [address] Nurse Practitioner Nurse Practitioner - Family 07/12/16 Hillary Unger, MD [address] [place] [address] Assigned PCP 05/03/18 07/18/18 Nelson Arroyo PA-C [address] [place] [address] Assigned PCP 07/05/18 07/29/20 Chinyere Barbour Personal Advocate & Liaison (PAL) 01/31/20 04/26/20 Nelson Arroyo PA-C [address] [place] [address] Assigned PCP 07/30/20 Pietro Wills MD [address] [place] [address] Assigned Heart and Vascular Provider 12/14/22 06/26/24 Tank Bucio MD [address], [address] [address] Physician word processor operator 12/01/23 documented as of this encounter
--- OUTSIDE RECORDS SUMMARY | 2024-07-20 16:38 | XMS_ITS | Encounter Summary ---
Author Organization [place] Address [address] [place] [address]. [place] [address] Care Team Providers Care Human Service Technician Name Role Phone Salina Doherty MD Unavailable [phone] Carrillo Ware APRN EARTH MOVING TECHNICIAN Unavailable SolitarioAngelica golden NP Unavailable [phone] Nelson Arroyo PA-C Primary Care Provider Nelson Arroyo PA-C Unavailable Pietro Wills MD Unavailable [phone] Tank Bucio MD Unavailable [phone] Reason for Visit * Reason Onset Date Comments Refill Request 01/12/2021 (ADDERALL XR) 30 MG Encounter Details Date Type Department Care Team (Late st Contact Info) Description 01/12/2021 MyC Refill [facility] [address] [place] [address] Nelson Arroyo PA-C [address] [place] [address] Refill Request ((ADDERALL XR) 30 [...] CDT Legal Sex Female 3:44 AM VISUAL EFFECTS ARTIST Gender Identity Female 10/03/2020 8:33 PM CDT Sexual Orientation Straight 07/01/2018 3: 40 PM VISUAL EFFECTS ARTIST documented as of this encounter Plan of Treatment Not on file documented as of this encounter 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), predominantly inattentive type documented in this encounter Additional Health Concerns Assessment Noted Time PHQ-9 Depression Total Score: 4 10/19/19 21 5:12 PM CDT documented as of this encounter Care Teams Human Service Technician Relationship Specialty Start Date End Date Nelson Arroyo PA-C [address] [place] [address] PCP - General Physician Dispensary Attendant - Medical 08/06/18 Salina Doherty MD Internal Medicine 12/01/14 Carrillo Ware APRN CNP [address] [place] [address] Nurse Practitioner Nurse Practitioner 12/16/14 Angelica Jerez NP [place] [address] [address] [place], [place] [address] Nurse Practitioner Nurse Practitioner - Family 07/12/16 Nelson Arroyo PA-C [address] [place] [address] Assigned PCP 07/30/20 Pietro Wills MD [address] [address] Assigned Heart and Vascular Provider 12/14/22 06/26/24 Tank Bucio MD [address], [facility] [address] [place] [address] Physician behavioral therapy coordinator 12/01/23 documented as of this encounter
--- OUTSIDE RECORDS SUMMARY | 2024-07-20 16:39 | XMS_ITS | Encounter Summary ---
Author Organization [place] Address [address] [place] [address]. [place] [address] Care Team Providers Care Web Site Admin Name Role Phone Salina Doherty MD Unavailable [phone] Carrillo Ware APRN RAILROAD DINING CAR STEWARD/STEWARDESS Unavailable [phone] SolitarioAngelica golden NP Unavailable [phone] Nelson Arroyo PA-C Unavailable Nelson Arroyo PA-C Primary Care Provider Chinyere Barbour Unavailable Unavailable Nelson Arroyo PA-C Unavailable [phone] Pietro Wills MD Unavailable Tank Bucio MD Unavailable Reason for Visit * Reason Onset Date Comments Refill Request 08/30/2018 clonazePAM, tiZA Nidine, and QUEtiapine Encounter Details Date Type Department Care Team (Late st Contact Info) Description 08/30/2018 MyC Refill [address], [address] [place] [address] Nelson Arroyo PA-C [address] [place] [address] Refill Request (clonazePAM, tiZANidine, an... [...] PM CDT Legal Sex Female 3:44 AM DOCUMENT IMAGING SPECIALIST Gender Identity Female 10/03/2020 8:33 PM CDT Sexual Orientation Straight 07/01/2018 3: 40 PM DOCUMENT IMAGING SPECIALIST documented as of this encounter Miscellaneous [...] # refills: 0 Last Office Visit with [facility] or Health prescribing provider: 08/06/2018 Cruz Return in about 3 months (around 11/05/2018) for Med Check. tiZANidine (ZANAFLEX) 4 MG tablet Sig - Route: Take 1 tablet (4 mg) by mouth 3 times daily as needed for muscle spasms - Oral Last Written Prescription Date: 08/07/18 Last Fill Quantity: 90, # refills: 0 Last Office Visit with [facility] or Health prescribing provider: 08/06/2018 Requested Prescriptions [...] as of this encounter Care Teams Web Site Admin Relationship Specialty Start Date End Date Nelson Arroyo PA-C [address] [address] PCP - General Physician Packer Denture - Medical 08/06/18 Salina Doherty MD Internal Medicine 12/01/14 Carrillo Ware APRN RAILROAD DINING CAR STEWARD/STEWARDESS [address] [place] [id number] Nurse Practitioner Nurse Practitioner 12/16/14 Angelica Jerez NP [address] [address] Nurse Practitioner Nurse Practitioner - Family 07/12/16 Nelson Arroyo PA-C [address] [address] Assigned PCP 07/05/18 07/29/20 Chinyere Barbour Personal Advocate & Liaison (PAL) 01/31/20 04/26/20 Nelson Arroyo PA-C [address] [address] Assigned PCP 07/30/20 Pietro Wills MD [address] [place] [address] Assigned Heart and Vascular Provider 12/14/22 06/26/24 Tank Bucio MD [address] [facility] [address] [place] [address] Physician crm marketing specialist 12/01/23 documented as of this encounter
--- OUTSIDE RECORDS SUMMARY | 2024-07-20 16:39 | XMS_ITS | Encounter Summary ---
Author Organization [place] Address [address] [place] [address]. [place] [address] Care Team Providers Care Manager Aerospace Name Role Phone Salina Doherty MD Unavailable [phone] Carrillo Ware APRN CLINICAL DATA ASSOCIATE Unavailable SolitarioAngelica golden NP Unavailable [phone] Nelson Arroyo PA-C Unavailable Nelson Arroyo PA-C Primary Care Provider Chinyere Barbour Unavailable Unavailable Nelson Arroyo PA-C Unavailable Pietro Wills MD Unavailable Tank Bucio MD Unavailable Reason for Visit * Reason Onset Date Comments Refill Request 09/02/2018 tiZANidine (ALIZA FLEX) 4 MG tablet Encounter Details Date Type Department Care Team (Late st Contact Info) Description 09/02/2018 MyC Refill [place] [address] [facility], [address] [place] [address] Nelson Arroyo PA-C [address] [place] [address] Refill Request (tiZANidine (ZANAFLEX) 4 [...] CDT Legal Sex Female 3:44 AM MANAGER ALLIANCE Gender Identity Female 10/03/2020 8:33 PM CDT Sexual Orientation Straight 07/01/2018 3: 40 PM MANAGER ALLIANCE documented as of this encounter Miscellaneous Notes * Telephone Encounter - Lexi Reina RN - 09/03/2018 11:39 AM CDT Routing refill request to provider for review/approval because: Drug not on the [facility] refill protocol I see you commented today [...] as of this encounter Care Teams Manager Aerospace Relationship Specialty Start Date End Date Nelson Arroyo PA-C [address] [place] [address] PCP - General Physician Patent Solicitor - Medical 08/06/18 Salina Doherty MD Internal Medicine 12/01/14 Carrillo Ware APRN CLINICAL DATA ASSOCIATE [address] [place] [address] Nurse Practitioner Nurse Practitioner 12/16/14 Angelica Jerez NP [facility] [address] [place] [address] Nurse Practitioner Nurse Practitioner - Family 07/12/16 Nelson Arroyo PA-C [address] [place] [place] [address] Assigned PCP 07/05/18 07/29/20 Chinyere Barbour Personal Advocate & Liaison (PAL) 01/31/20 04/26/20 Nelson Arroyo PA-C [address] [place] [address] Assigned PCP 07/30/20 Pietro Wills MD [address] [place] [address] Assigned Heart and Vascular Provider 12/14/22 06/26/24 Tank Bucio MD [address] [facility], [address] [address] Physician digital communications manager 12/01/23 documented as of this encounter
--- OUTSIDE RECORDS SUMMARY | 2024-07-20 16:39 | XMS_ITS | Encounter Summary ---
Author Organization [place] Address [address] [place] [address]. [place] [address] Care Team Providers Care Weaver Wire Loom Name Role Phone Salina Doherty MD Unavailable [phone] Carrillo Ware APRN SPEAR FISHER Unavailable SolitarioAngelica golden NP Unavailable [phone] Nelson Arroyo PA-C Unavailable Nelson Arroyo PA-C Primary Care Provider Chinyere Barbour Unavailable Unavailable Neslon Arroyo PA-C Unavailable [phone] Pietro Wills MD Unavailable Tank Bucio MD Unavailable Reason for Visit * Reason Onset Date Comments Medication Request 08/10/2018 Trazodone Medication Request 08/10/[address] trazodone Encounter Details Date Type Department Care Team (Late st Contact Info) Description 08/10/2018 MyC Medical Advice [address], [address] [place] [address] Nelson Arroyo PA-C [address] [place] [address] Medication Request (Trazodone); Medication... Social [...] PM CDT Legal Sex Female 3:44 AM RENTAL CAR PORTER Gender Identity Female 10/03/2020 8:33 PM CDT Sexual Orientation Straight 07/01/2018 3: 40 PM RENTAL CAR PORTER documented as of this encounter Miscellaneous Notes [...] documented as of this encounter Care Teams Weaver Wire Loom Relationship Specialty Start Date End Date Nelson Arroyo PA-C [address] [place] [address] PCP - General Physician Rafter Cutting Machine Operator - Medical 08/06/18 Salina Doherty MD Internal Medicine 12/01/14 Carrillo Ware APRN SPEAR FISHER [address] [place] [address] Nurse Practitioner Nurse Practitioner 12/16/[address] [facility] [address] [place], [place] [address] Nurse Practitioner Nurse Practitioner - Family 07/12/16 Nelson Arroyo PA-C [address] [place] [address] Assigned PCP 07/05/18 07/29/20 Chinyere Barbour Personal Advocate & Liaison (PAL) 01/31/20 04/26/20 Nelson Arroyo PA-C [address] [address] Assigned PCP 07/30/20 Pietro Wills MD [address] [place] [address] Assigned Heart and Vascular Provider 12/14/22 06/26/24 Tank Bucio MD [address], [address] [address] Physician manager primary care 12/01/23 documented as of this encounter
--- OUTSIDE RECORDS SUMMARY | 2024-07-20 16:39 | XMS_ITS | Encounter Summary ---
Author Organization [place] Address [address] [place] [address] Care Team Providers Care Cupola Man Name Role Phone Salina Doherty MD Unavailable [phone] Carrillo Ware APRN RESEARCH PROGRAM ASSISTANT Unavailable [phone] Hillary Unger MD Primary Care P rovider [facility] NP Unavailable [phone] Hillary Unger MD Unavailable Hillary Unger MD Unavailable Nelson Arroyo PA-C Unavailable [phone] Nelson Arroyo PA-C Primary Care Provider Chinyere Barbour Unavailable Unavailable Nelson Arroyo PA-C Unavailable [phone] Pietro Wills MD Unavailable Tank Bucio MD Unavailable Reason for Visit * Reason Onset Date Comments WOUND CARE 07/01/2018 Follow up Encounter Details Date Type Department Care Team (Late st Contact Info) Description 07/01/2018 MyC Medical Advice [facility] [address] [facility], [address] [place] [address] Nelson Arroyo PA-C [address] [place] [address] WOUND CARE (Follow up) Social History Tobacco [...] PM CDT Legal Sex Female 3:44 AM OUTPATIENT CLERK Gender Identity Female 10/03/2020 8:33 PM CDT Sexual Orientation Straight 07/01/2018 3: 40 PM OUTPATIENT CLERK documented as of this encounter Plan of Treatment Not on file documented as of this encounter Visit Diagnoses Not on filedocumented in this encounter Additional Health Concerns Assessment Noted Time PHQ-9 Depression Total Score: 9 05/15/19 19 2:09 PM OUTPATIENT CLERK documented as of this encounter Care Teams Cupola Man Relationship Specialty Start Date End Date Hillary Unger MD [address] [place] [address] PCP - General Internal Medicine 08/21/15 08/05/18 Hillary Unger MD [address] [place] [address] PCP - Assigned PCP 05/03/18 07/07/18 Nelson Arroyo PA-C [address] [address] PCP - General Physician Artificial Flowers Dyer - Medical 08/06/18 Salina Doherty MD Internal Medicine 12/01/14 Carrillo Ware APRN RESEARCH PROGRAM ASSISTANT [address] [place] [address] Nurse Practitioner Nurse Practitioner 12/16/14 Angelica Jerez SKIN PASS OPERATOR [facility] [address] [place], [place] [address] Nurse Practitioner Nurse Practitioner - Family 07/12/16 Hillary Unger MD [address] [place], [place] [address] Assigned PCP 05/03/18 07/18/18 Nelson Arroyo PA-C [address] [place] [address] Assigned PCP 07/05/18 07/29/20 Chinyere Barbour Personal Advocate & Liaison (PAL) 01/31/20 04/26/20 Nelson Arroyo [place]-C [address] [place] [address] Assigned PCP 07/30/20 Pietro Wills MD [address] [place] [address] Assigned Heart and Vascular Provider 12/14/22 06/26/24 Tank Bucio MD [address], [address] [address] Physician passenger service representative 12/01/23 documented as of this encounter
--- OUTSIDE RECORDS SUMMARY | 2024-07-20 16:39 | XMS_ITS | Encounter Summary ---
Author Organization [facility] Address [address] [place] [address]. [place] [address] Care Team Providers Care City Dispatcher Name Role Phone Salina Dohetry MD Unavailable Carrillo Ware APRN WEED CUTTER Unavailable SolitarioAngelica golden NP Unavailable [phone] Loy Arroyo PA-C Primary Care Provider Loy Arroyo PA-C Unavailable Pietro Wills MD Unavailable Tank Bucio MD Unavailable Reason for Visit * Reason Onset Date Comments Refill Request 06/21/2021 Encounter Details Date Type Department Care Team (Late st Contact Info) Description 06/21/2021 MyC Medical Advice [facility] [address] [place] [address] Loy Arroyo PA-C [address] [place] [address] Refill Request Social History Tobacco [...] PM CDT Legal Sex Female 3:44 AM MATHS TUTOR Gender Identity Female 10/03/2020 8:33 PM CDT Sexual Orientation Straight 07/01/2018 3: 40 PM MATHS TUTOR documented as of this encounter Miscellaneous Notes * Telephone Encounter - Concepción Gonzalez APRN CNP - 06/22/2021 8:16 AM MATHS TUTOR Refilled. Help schedule follow-up appt with loy. Concepción Gonzalez CNP S TUTOR * Telephone Encounter - Ivette Dasilva RN [...] to pcp and POD. Ivette Dasilva RN S TUTOR documented in this encounter Plan of Treatment Not on file documented as of this encounter Visit Diagnoses Diagnosis Generalized anxiety disorder documented in this encounter Additional Health Concerns Assessment Noted Time PHQ-9 Depression Total Score: 9 06/04/19 22 12:13 PM MATHS TUTOR documented as of this encounter Care Teams City Dispatcher Relationship Specialty Start Date End Date Loy Arroyo PA-C [address] [address] PCP - General Physician Net Repairer - Medical 08/06/18 Salina Doherty MD Internal Medicine 12/01/14 Carrillo Ware APRN WEED CUTTER [address] [place] [address] Nurse Practitioner Nurse Practitioner 12/16/14 Angelica Jerez NP [facility] [address] [place], [place] [address] Nurse Practitioner Nurse Practitioner - Family 07/12/16 Loy Arroyo PA-C [address] [place] [address] Assigned PCP 07/30/20 Pietro Wills MD [address] [place] [id number] Assigned Heart and Vascular Provider 12/14/22 06/26/24 Tank Bucio MD [facility] E [facility], [address] [address] Physician tire shop mechanic 12/01/23 documented as of this encounter
--- OUTSIDE RECORDS SUMMARY | 2024-07-20 16:39 | XMS_ITS | Encounter Summary ---
Author Organization [facility] Address [address] [place] [address] Care Team Providers Care Oracle Adf Consultant Name Role Phone Salina Doherty MD Unavailable [phone] Carrillo Ware APRN FOUNTAIN MANAGER Unavailable [phone] Hillary Unger MD Primary Care P rovider [facility] Unavailable [phone] Nelson Arroyo PA-C Unavailable [phone] Hillary Unger MD Unavailable Hillary Unger MD Unavailable Hillary Unger MD Unavailable Nelson Arroyo PA-C Unavailable [phone] Nelson Arroyo PA-C Primary Care Provider Chinyere Barbour Unavailable Unavailable Nelson Arroyo PA-C Unavailable [phone] Pietro Wills MD Unavailable [phone] Tank Bucio MD Unavailable [phone] Reason for Visit * Reason Onset Date Comments Patient Inquiry 07/26/2016 Refills Encounter Details Date Type Department Care Team (Late st Contact Info) Description 07/26/2016 [facility] [address] [place] [address] Hillary Unger MD [address] [place] [address] Patient Inquiry (Refills) Social History Tobacco Use [...] PM CDT Legal Sex Female 3:44 AM LGSW Gender Identity Female 10/03/2020 8:33 PM CDT Sexual Orientation Straight 07/01/2018 3: 40 PM LGSW documented as of this encounter Miscellaneous Notes * Telephone Encounter - Michelle Walker - 08/02/2016 3:30 PM CDT See [facility] message below. * Telephone Encounter - Hillary [...] Total Score: 7 07/14/19 17 7:14 AM LGSW documented as of this encounter Care Teams Oracle Adf Consultant Relationship Specialty Start Date End Date Hillary Unger MD [address] [place] [address] PCP - General Internal Medicine 08/21/15 08/05/18 Nelson Arroyo PA-C [address] [place] [address] PCP - Assigned PCP 04/12/18 05/02/18 Hillary Unger MD [address] [place], [place] 7[address] PCP - Assigned PCP 02/01/18 04/11/18 Hillary Unger MD [address] [place] [address] PCP - Assigned PCP 05/03/18 07/07/18 Nelson Arroyo PA-C [address] [place] [address] PCP - General Physician Traffic Sergeant - Medical 08/06/18 Salina Doherty MD Internal Medicine 12/01/14 Carrillo Ware APRN FOUNTAIN MANAGER [address] [place] [address] Nurse Practitioner Nurse Practitioner 12/16/14 Angelica Jerez NP [facility] [address] [place], [place] [address] Nurse Practitioner Nurse Practitioner - Family 07/12/16 Hillary Unger MD [address] [place], [place] [address] Assigned PCP 05/03/18 07/18/18 eNlson Arroyo PA-C [address] [place] [address] Assigned PCP 07/05/18 07/29/20 Chinyere Barbour Personal Advocate & Liaison (PAL) 01/31/20 04/26/20 Nelson Arroyo PA-C [address] [place] [address] Assigned PCP 07/30/20 Pietro Wills MD [address] [place] [address] Assigned Heart and Vascular Provider 12/14/22 06/26/24 Tank Bucio MD [address], [address] [address] Physician furniture crater 12/01/23 documented as of this encounter
--- OUTSIDE RECORDS SUMMARY | 2024-07-20 16:39 | XMS_ITS | Encounter Summary ---
Author Organization [facility] Address [address] [place] [address]. [place] [address] Care Team Providers Care Band Attacher Name Role Phone Salina Doherty MD Unavailable [phone] Carrillo Ware APRN FABRICATION LEAD Unavailable SolitarioAngelica golden NP Unavailable [phone] Nelson Arroyo PA-C Unavailable Nelson Arroyo PA-C Primary Care Provider Chinyere Barbour Unavailable Unavailable Nelson Arroyo PA-C Unavailable Pietro Wills MD Unavailable [phone] Tank Bucio MD Unavailable Reason for Visit * Reason Onset Date Comments Symptoms 08/28/2018 Encounter Details Date Type Department Care Team (Late st Contact Info) Description 08/28/2018 [facility] [id number] [place] [address], [address] [place] [address] Nelson Arroyo PA-C [address] [place] [address] Symptoms Social History Tobacco Use [...] PM CDT Legal Sex Female 3:44 AM FOLEY ARTIST Gender Identity Female 10/03/2020 8:33 PM CDT Sexual Orientation Straight 07/01/2018 3: 40 PM FOLEY ARTIST documented as of this encounter Plan of Treatment Not on file documented as of this encounter Visit Diagnoses Not on filedocumented in this encounter Additional Health Concerns Assessment Noted Time PHQ-9 Depression Total Score: 13 019 7:04 AM CDT documented as of this encounter Care Teams Band Attacher Relationship Specialty Start Date End Date Neslon Arroyo PA-C [address] [place] [address] PCP - General Physician Orchardist - Medical 08/06/18 Salina Doherty MD Internal Medicine 12/01/14 Carrillo Ware APRN CNP [address] [place] [address] Nurse Practitioner Nurse Practitioner 12/16/14 Angelica Jerez NP [facility] [address] [address] [place], [place] [id number] Nurse Practitioner Nurse Practitioner - Family 07/12/16 Nelson Arroyo PA-C [address] [place] [address] Assigned PCP 07/05/18 07/29/20 Chinyere Barbour Personal Advocate & Liaison (PAL) 01/31/20 04/26/20 Nelson Arroyo PA-C [address] [place] [address] Assigned PCP 07/30/20 Pietro Wills MD [address] [place] [address] Assigned Heart and Vascular Provider 12/14/22 06/26/24 Tank Bucio MD [address] [facility], [facility] [address] [place] [address] Physician building tech 12/01/23 documented as of this encounter
--- OUTSIDE RECORDS SUMMARY | 2024-07-20 16:39 | XMS_ITS | Encounter Summary ---
Author Organization [facility] Address [address] [place] [address]. [place] [address] Care Team Providers Care Drapery Hand Name Role Phone Salina Doherty MD Unavailable [phone] Carrillo Ware APRN MANAGER COMMERCIAL SALES Unavailable SolitarioAngelica golden NP Unavailable [phone] Nelson Arroyo PA-C Unavailable [phone] Nelson Arroyo PA-C Primary Care Provider Chinyere Barbour Unavailable Unavailable Nelson Arroyo PA-C Unavailable Pietro Wills MD Unavailable Tank Bucio MD Unavailable Reason for Visit * Reason Onset Date Comments MyChart Communication 08/06/2018 Encounter Details Date Type Department Care Team (Late st Contact Info) Description 08/06/2018 MyC Medical Advice [facility] [address] [facility], [address] [place] [address] Nelson Arroyo PA-C [address] [place] [address] MyChart Communication Social History Tobacco [...] PM CDT Legal Sex Female 3:44 AM GRILL ATTENDANT Gender Identity Female 10/03/2020 8:33 PM CDT Sexual Orientation Straight 07/01/2018 3: 40 PM GRILL ATTENDANT documented as of this encounter Miscellaneous Notes * Telephone Encounter - Nelson Arroyo PA-C - 08/07/2018 10:06 AM CDT Yes. This is fine. Nelson * Telephone Encounter - Susanne Zacarias RN - 08/07/2018 8:03 AM CDT PCP: Please see below. Ok for 90 day supply? Susanne Zacarias RN -- [facility] documented in this encounter Plan of Treatment Not on file documented as of this encounter Visit Diagnoses Diagnosis Muscle spasm Spasm of muscle Cervicalgia documented in this encounter Additional Health Concerns Assessment Noted Time PHQ-9 Depression Total Score: 13 019 7:04 AM CDT documented as of this encounter Care Teams Drapery Hand Relationship Specialty Start Date End Date Nelson Arroyo PA-C [address] [place] [address] PCP - General Physician C D Stripper - Medical 08/06/18 Salina Doherty MD Internal Medicine 12/01/14 Carrillo Ware APRN MANAGER COMMERCIAL SALES [address] [place] [address] Nurse Practitioner Nurse Practitioner 12/16/14 Angelica Jerez NP [facility] [address] [place] [address] Nurse Practitioner Nurse Practitioner - Family 07/12/16 Nelson Arroyo PA-C [address] [place] [address] Assigned PCP 07/05/18 07/29/20 Chinyere Barbour Personal Advocate & Liaison (PAL) 01/31/20 04/26/20 Nelson Arroyo PA-C [address] [place] [address] Assigned PCP 07/30/20 Pietro Wills MD [address] [place] [address] Assigned Heart and Vascular Provider 12/14/22 06/26/24 Tank Bucio MD [address], [facility] [address] [place] [address] Physician prototype engineer manager 12/01/23 documented as of this encounter
--- OUTSIDE RECORDS SUMMARY | 2024-07-20 16:39 | XMS_ITS | Encounter Summary ---
Author Organization [facility] Address [address] [place] [address] Care Team Providers Care Batter Depositor Name Role Phone Salina Doherty MD Unavailable [phone] Carrillo Ware APRN BURGLAR ALARM SUPERINTENDENT Unavailable SolitarioAngelica golden NP Unavailable [phone] Nelson Arroyo PA-C Primary Care Provider Nelson Arroyo PA-C Unavailable [phone] Pietro Wills MD Unavailable Tank Bucio MD Unavailable [phone] Encounter Details Date Type Department Care Team [...] CDT Legal Sex Female 3:44 AM MANAGER OF PROCUREMENT Gender Identity Female 10/03/2020 8:33 PM CDT Sexual Orientation Straight 07/01/2018 3: 40 PM MANAGER OF PROCUREMENT documented as of this encounter Plan of Treatment Not on file documented as of this encounter Visit Diagnoses Not on filedocumented in this encounter Additional Health Concerns Assessment Noted Time PHQ-9 Depression Total Score: 9 06/04/19 22 12:13 PM MANAGER OF PROCUREMENT documented as of this encounter Care Teams Batter Depositor Relationship Specialty Start Date End Date Nelson Arroyo PA-C [address] [address] [facility] [address] PCP - General Physician Wind Turbine Blade Repair Technician - Medical 08/06/18 Salina Doherty MD Internal Medicine 12/01/14 Carrillo Ware APRN BURGLAR ALARM SUPERINTENDENT [address] [place] [address] Nurse Practitioner Nurse Practitioner 12/16/14 Angelica Jerez NP [facility] [address] [place] [address] Nurse Practitioner Nurse Practitioner - Family 07/12/16 Nelson Arroyo PA-C [address] [place] [address] Assigned PCP 07/30/20 Pietro Wills MD [address] [place] [address] Assigned Heart and Vascular Provider 12/14/22 06/26/24 Tank Bucio MD [address] [facility] [address] [address] Physician calculus professor 12/01/23 documented as of this encounter
--- OUTSIDE RECORDS SUMMARY | 2024-07-20 16:39 | XMS_ITS | Encounter Summary ---
Author Organization [facility] Address [address] [place] [address]. [place] [address] Care Team Providers Care Backup Administrator Name Role Phone Salina Doherty MD Unavailable Carirllo Ware APRN PARTNER MANAGEMENT CONSULTANT Unavailable SolitarioAngelica golden NP Unavailable [phone] Nelson Arroyo PA-C Unavailable [phone] Nelson Arroyo PA-C Primary Care Provider Chinyere Barbour Unavailable Unavailable Nelson Arroyo PA-C Unavailable [phone] Pietro Wills MD Unavailable Tank Bucio MD Unavailable [phone] Encounter Details Date Type Department Care Team (Late st Contact Info) Description 08/12/2018 MyC Medical Advice [facility] [address] [place] [address], [address] [place] [address] Nelson Arroyo PA-C [address] [place] [address] Social History Tobacco Use Types [...] PM CDT 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 Sex Female 3:44 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 Gender Identity Female 10/03/2020 8:33 PM CDT Sexual Orientation Straight 07/01/2018 3: 40 PM MUD MIXER OPERATOR documented as of this encounter Plan of Treatment Not on file documented as of this encounter Visit Diagnoses Not on filedocumented in this encounter Additional Health Concerns Assessment Noted Time PHQ-9 Depression Total Score: 13 019 7:04 AM CDT documented as of this encounter Care Teams Backup Administrator Relationship Specialty Start Date End Date Nelson Arroyo PA-C [address] [place] [address] PCP - General Physician Community Fundraiser - Medical 08/06/18 Salina Doherty MD Internal Medicine 12/01/14 Carrillo Ware APRN CNP [address] [place] [address] Nurse Practitioner Nurse Practitioner 12/16/14 Angelica Jerez NP [address] [address] Nurse Practitioner Nurse Practitioner - Family 07/12/16 Nelson Arroyo PA-C [address] [place] [address] Assigned PCP 07/05/18 07/29/20 Chinyere Barbour Personal Advocate & Liaison (PAL) 01/31/20 04/26/20 Nelson Arroyo PA-C [address] [place] [address] Assigned PCP 07/30/20 Pietro Wills MD [address] [place] [address] Assigned Heart and Vascular Provider 12/14/22 06/26/24 Tank Bucio MD [address], [facility] [address] [place] [address] Physician sales operations specialist 12/01/23 documented as of this encounter
--- OUTSIDE RECORDS SUMMARY | 2024-07-20 16:39 | XMS_ITS | Encounter Summary ---
Author Organization [facility] Address [address] [place] [address]. [place] [address] Care Team Providers Care Blacksmith Farm Name Role Phone Salina Doherty MD Unavailable [phone] Carrillo Ware APRN TANDEM OPERATOR Unavailable SolitarioAngelica golden NP Unavailable [phone] Nelson Arroyo PA-C Primary Care Provider Nelson Arroyo PA-C Unavailable [phone] Pietro Wills MD Unavailable Tank Bucio MD Unavailable [phone] Encounter Details Date Type Department Care Team (Late st Contact Info) Description 07/10/2021 MyC Medical Advice [facility] [address] [place] [address] Nelson Arroyo PA-C [address] [place] [address] Social History Tobacco Use Types [...] PM CDT Legal Sex Female 3:44 AM BRIDGE PAINTER HELPER Gender Identity Female 10/03/2020 8:33 PM CDT Sexual Orientation Straight 07/01/2018 3: 40 PM BRIDGE PAINTER HELPER documented as of this encounter Plan of Treatment Not on file documented as of this encounter Visit Diagnoses Not on filedocumented in this encounter Additional Health Concerns Assessment Noted Time PHQ-9 Depression Total Score: 9 06/04/19 22 12:13 PM BRIDGE PAINTER HELPER documented as of this encounter Care Teams Blacksmith Farm Relationship Specialty Start Date End Date Nelson Arroyo PA-C [address] [place] [address] PCP - General Physician Roller Die Cutting Machine Operator - Medical 08/06/18 Salina Doherty MD Internal Medicine 12/01/14 Carrillo Ware APRN TANDEM OPERATOR [address] [place] [address] Nurse Practitioner Nurse Practitioner 12/16/14 Angelica Jerez NP [facility] [address] [address] [place], [place] [address] Nurse Practitioner Nurse Practitioner - Family 07/12/16 Nelson Arroyo PA-C [address] [address] Assigned PCP 07/30/20 Pietro Wills MD [address] [address] Assigned Heart and Vascular Provider 12/14/22 06/26/24 aTnk Bucio MD [address], [facility] [address] [place] [address] Physician leach tank tender 12/01/23 documented as of this encounter
--- OUTSIDE RECORDS SUMMARY | 2024-07-20 16:39 | XMS_ITS | Encounter Summary ---
Author Organization [facility] Address [address] [place] [address]. [place] [address] Care Team Providers Care Pipe Organ Installer Name Role Phone Salina Doherty MD Unavailable Carrillo Ware APRN TEXTILE DYER Unavailable Angelica Jerez NP Unavailable [phone] Nelson Arroyo PA-C Primary Care Provider Nelson Arroyo PA-C Unavailable [phone] Pietro Wills MD Unavailable [phone] Tank Bucio MD Unavailable Reason for Visit * Reason Comments Medication Refill Encounter Details Date Type Department Care Team (Late st Contact Info) Description 07/23/2021 Refill [facility] [address] [place] [address] Concepción Gonzalez APRN TEXTILE DYER [address] [place] [address] Medication Refill Social History Tobacco [...] PM CDT Legal Sex Female 3:44 AM CRYPTOANALYSIS TEACHER Gender Identity Female 10/03/2020 8:33 PM CDT Sexual Orientation Straight 07/01/2018 3: 40 PM CRYPTOANALYSIS TEACHER documented as of this encounter Miscellaneous [...] Total Score: 9 06/04/19 22 12:13 PM CRYPTOANALYSIS TEACHER documented as of this encounter Care Teams Pipe Organ Installer Relationship Specialty Start Date End Date Nelson Arroyo PA-C [address] [place] [address] PCP - General Physician Piped Pocket Machine Operator - Medical 08/06/18 Salina Doherty MD Internal Medicine 12/01/14 Carrillo Ware APRN TEXTILE DYER [address] [place] [address] Nurse Practitioner Nurse Practitioner 12/16/14 Angelica Jerez NP [address] [address] Nurse Practitioner Nurse Practitioner - Family 07/12/16 Nelson Arroyo PA-C [address] [place] [place] [address] Assigned PCP 07/30/20 Pietro Wills MD [address] [place] [address] Assigned Heart and Vascular Provider 12/14/22 06/26/24 Tank Bucio MD [address] [place], [address] [address] Physician truck repair service estimator 12/01/23 documented as of this encounter
--- OUTSIDE RECORDS SUMMARY | 2024-07-20 16:39 | XMS_ITS | Encounter Summary ---
Author Organization [facility] Address [address] [place] [address]. [place] [address] Care Team Providers Care Acid Condenser Name Role Phone Salina Doherty MD Unavailable [phone] Carrillo Ware APRN REGULATORY ASSOCIATE Unavailable SolitarioAngelica golden NP Unavailable [phone] Nelson Arroyo PA-C Unavailable Nelson Arroyo PA-C Primary Care Provider Chinyere Barbour Unavailable Unavailable Nelson Arroyo PA-C Unavailable Pietro Wills MD Unavailable [phone] Tank Bucio MD Unavailable Reason for Visit * Reason Onset Date Comments Refill Request 09/01/2018 clonazePAM, tiZA Nidine, propranolol, QUEtiapine, and traZODone Encounter Details Date Type Department Care Team (Late st Contact Info) Description 09/01/2018 MyC Refill [address], [address] [place] [address] Nelson Arroyo PA-C [address] [place] [address] Refill Request (clonazePAM, tiZANidine, pr... [...] PM CDT Legal Sex Female 3:44 AM BLUEPRINT TRIMMER Gender Identity Female 10/03/2020 8:33 PM CDT Sexual Orientation Straight 07/01/2018 3: 40 PM BLUEPRINT TRIMMER documented as of this encounter Miscellaneous Notes * Telephone Encounter - Lexi Reina RN - 09/01/2018 4:52 PM CDT Routing refill request to provider for review/approval because: Drug not on the [facility] refill protocol, only needs refills on [...] # refills: 0 Last Office Visit with [facility], P or [facility] prescribing provider: 08/06/2018 clonazePAM (KLONOPIN) 0.5 MG tablet Sig - Route: Take 1 tablet (0.5 mg) by mouth daily as needed for anxiety - Oral Last Written Prescription Date: 08/06/18 Last Fill Quantity: 30, # refills: 0 Last Office Visit with [facility], [facility] or [facility] prescribing provider: 08/06/2018 Routing refill request to provider for review/approval because: Drug not on the [facility], [facility] or [facility] refill protocol or controlled substance Requested Prescriptions [...] documented as of this encounter Care Teams Acid Condenser Relationship Specialty Start Date End Date Nelson Arroyo PA-C [address] [address] PCP - General Physician Surface Hydrologist - Medical 08/06/18 Salina Doherty MD Internal Medicine 12/01/14 Carrillo Ware APRN REGULATORY ASSOCIATE [address] [place] [address] Nurse Practitioner Nurse Practitioner 12/16/14 Angelica Jerez [facility] [address] [place] [address] Nurse Practitioner Nurse Practitioner - Family 07/12/16 Nelson Arroyo PA-C [address] [place] [address] Assigned PCP 07/05/18 07/29/20 Chinyere Barbour Personal Advocate & Liaison (PAL) 01/31/20 04/26/20 Nelson Arroyo PA-C [address] [id number] Assigned PCP 07/30/20 Pietro Wills MD [address] [place] [address] Assigned Heart and Vascular Provider 12/14/22 06/26/24 Tank Bucio MD [address], [address] [address] Physician metal casket assembler 12/01/23 documented as of this encounter
--- OUTSIDE RECORDS SUMMARY | 2024-07-20 16:39 | XMS_ITS | Encounter Summary ---
Author Organization [place] Address [address] [place] [address] Care Team Providers Care Humanities Department Chair Name Role Phone Salina Doherty MD Unavailable [phone] Carrillo Ware APRN DOGGER Unavailable Hillary Unger MD Primary Care P rovider [facility] NP Unavailable [phone] Hillary Unger MD Unavailable Hillary Unger MD Unavailable Nelson Aroryo PA-C Unavailable [phone] Nelson Arroyo PA-C Primary Care Provider [phone] Chinyere Barbour Unavailable Unavailable Nelson Arroyo PA-C Unavailable Pietro Wills MD Unavailable Tank Bucio MD Unavailable [phone] Encounter Details Date Type Department Care Team (Late st Contact Info) Description 06/30/2018 [facility] [address], [address] [place] [address] Nelson Arroyo PA-C [address] [place] [address] Social History Tobacco Use Types [...] PM CDT Legal Sex Female 3:44 AM API PRODUCT MANAGER Gender Identity Female 10/03/2020 8:33 PM CDT Sexual Orientation Straight 07/01/2018 3: 40 PM API PRODUCT MANAGER documented as of this encounter Plan of Treatment Not on file documented as of this encounter Visit Diagnoses Not on filedocumented in this encounter Additional Health Concerns Assessment Noted Time PHQ-9 Depression Total Score: 9 05/15/19 19 2:09 PM API PRODUCT MANAGER documented as of this encounter Care Teams Humanities Department Chair Relationship Specialty Start Date End Date Hillary Unger MD [address] [place] [address] PCP - General Internal Medicine 08/21/15 08/05/18 Hillary Unger MD [address] [place] [address] PCP - Assigned PCP 05/03/18 07/07/18 Nelson Arroyo PA-C [address] [place] [address] PCP - General Physician Surveillance Director - Medical 08/06/18 Salina Doherty MD Internal Medicine 12/01/14 Carrillo Ware APRN DOGGER [address] [place] [address] Nurse Practitioner Nurse Practitioner 12/16/14 Angelica Jerez PRINCIPAL ASSOCIATE [facility] [address] [place] [address] Nurse Practitioner Nurse Practitioner - Family 07/12/16 Hillary Unger MD [address] [place] [address] Assigned PCP 05/03/18 07/18/18 Nelson Arroyo PA-C [address] [place] [address] Assigned PCP 07/05/18 07/29/20 Chinyere Barbour Personal Advocate & Liaison (PAL) 01/31/20 04/26/20 Nelson Arroyo PA-C [address] [place] [id number] Assigned PCP 07/30/20 Pietro Wills MD [address] [place] [address] Assigned Heart and Vascular Provider 12/14/22 06/26/24 Tank Bucio MD [address], [address] [address] Physician junior bookkeeper 12/01/23 documented as of this encounter
--- OUTSIDE RECORDS SUMMARY | 2024-07-20 16:39 | XMS_ITS | Encounter Summary ---
Author Organization [place] Address [address] [place] [address] Care Team Providers Care Software Licensing Executive Name Role Phone Salina Doherty MD Unavailable [phone] Carrillo Ware APRN SNUFF BOX FINISHER Unavailable Hillary Unger MD Primary Care P rovider [facility] Unavailable [phone] Hillary Unger MD Unavailable Hillary Unger MD Unavailable Nelson Arroyo PA-C Unavailable [phone] Nelson Arroyo PA-C Primary Care Provider [phone] Chinyere Barbour Unavailable Unavailable Nelson Arroyo PA-C Unavailable [phone] Pietro Wills MD Unavailable [phone] Tank Bucio MD Unavailable [phone] Reason for Referral * Consultation - Closed Specialty Diagnoses / Procedures Referred By Michela t Referred To Contact Diagnoses Cellulitis of buttock Nelson Arroyo PA-C Phone: tel: fax: [facility] [address] [place] [address] Phone: tel: fax: Referral ID Status Reason Start Date Expiration Date Visits Re quested Visits Authorized [id number] Closed 06/25/2018 06/25/2019 1 1 Comments Your [...] where they were done to arrange for pharmacy picking tech prior to your scheduled appointment. (2) List of current medications (3) This referral request (4) Any documents/labs given to you for this referral RIZED SQUAD COMMANDING OFFICER Reason for Visit * Reason Onset Date Comments Derm Problem 06/24/2018 Cellulitis Encounter Details Date Type Department Care Team (Late st Contact Info) Description 06/24/2018 [facility] Medical Advice [address], [address] [place] [address] Nelson Arroyo PA-C [address] [place], [place] [id number] Derm Problem (Cellulitis) Social History Tobacco Use [...] PM CDT Legal Sex Female 3:44 AM MOTORIZED SQUAD COMMANDING OFFICER Gender Identity Female 10/03/2020 8:33 PM CDT Sexual Orientation Straight 07/01/2018 3: 40 PM MOTORIZED SQUAD COMMANDING OFFICER documented as of this encounter Plan of Treatment Scheduled Referrals Name Type Priority Associated Diagnoses Orde r Schedule DERMATOLOGY REFERRAL Referral Routine Cellulitis of buttock Ordered: 06/25/2018 documented as of this encounter Visit Diagnoses Diagnosis Cellulitis of buttock- Primary Cellulitis and abscess of buttock documented in this encounter Additional Health Concerns Assessment Noted Time PHQ-9 Depression Total Score: 9 05/15/19 19 2:09 PM MOTORIZED SQUAD COMMANDING OFFICER documented as of this encounter Care Teams Software Licensing Executive Relationship Specialty Start Date End Date Hillary Unger MD [address] [place], [place] [id number] PCP - General Internal Medicine 08/21/15 08/05/18 Hillary Unger MD [address] [place], [place] [address] PCP - Assigned PCP 05/03/18 07/07/18 Nelson Arroyo [facility]-C [address] [facility] [address] PCP - General Physician Bolt Maker - Medical 08/06/18 Salina Doherty MD Internal Medicine 12/01/14 Carrillo Ware APRN SNUFF BOX FINISHER [address] [place] [address] Nurse Practitioner Nurse Practitioner 12/16/14 Angelica Jerez NP [facility] [address] [place] [address] Nurse Practitioner Nurse Practitioner - Family 07/12/16 Hillary Unger MD [address] [place] [address] Assigned PCP 05/03/18 07/18/18 Nelson Arroyo PA-C [address] [place] [address] Assigned PCP 07/05/18 07/29/20 Chinyere Barbour Personal Advocate & Liaison (PAL) 01/31/20 04/26/20 Nelson Arroyo PA-C [address] [place] [address] Assigned PCP 07/30/20 Pietro Wills MD [address] [place] [address] Assigned Heart and Vascular Provider 12/14/22 06/26/24 Tank Bucio MD [address], [facility] [address] [place] [address] Physician dye can operator 12/01/23 documented as of this encounter
--- NOTE | 2024-07-20 16:55 | CRLHL7_ITS ---
For Patients: As a result of the Century Cures Act, medical imaging exams and procedure reports are released immediately into your electronic medical record. You may view this report before your referring provider. If you have questions, please contact your health care provider. INDICATION: Bleeding, 14 weeks . TECHNIQUE: Ultrasound OB pelvis transabdominal limited. COMPARISON: None. FINDINGS: Sonographic imaging demonstrates a single living intrauterine gestation. Fetus demonstrates a regular cardiac rate of 149 beats per minute. Fetus has a variable orientation. Unremarkable posterior placenta. Normal cervical length, measuring approximately 5 cm. IMPRESSION: Single live intrauterine gestation. No evidence for placental abruption. Dictated by Rico David MD @ 07/20/2024 6:07:29 PM (Electronically Signed)
--- NOTE | 2024-07-20 16:56 | ED.GENADULT ---
HPI - General Adult General Date Seen: 07/20/24 Chief complaint: Vaginal Bleeding Stated complaint: bleeding, 14 wks preg Time Seen by Provider: 07/20/24 16:34 History of Present Illness HPI narrative: Patient is a 29-year-old , 14 weeks by LMP and ultrasound, who noted some bleeding today when wiping. She says when she wiped once there was some bright red blood and then the next time she wipes there was older round appearing blood. She has not had any cramping, no recent intercourse or trauma. No fevers or urinary symptoms. She has started recently on aspirin daily secondary to risk factors for preeclampsia. No other anticoagulation. Related Data Home Medications ?Medication ?Instructions ?Recorded ?Confirmed lamotrigine 150 mg tablet 150 mg PO DAILY 06/02/24 07/09/24 metoprolol succinate 50 mg 50 mg PO BID 06/02/24 07/09/24 tablet,extended release 24 hr quetiapine 300 mg tablet 300 mg PO QPM 06/02/24 07/09/24 docosahexaenoic acid 200 mg mg PO 06/11/24 07/09/24 capsule ( DHA) aspirin 81 mg tablet,delayed 81 mg PO QDAY 07/09/24 07/09/24 release (Adult Aspirin Regimen) folic acid 1 mg tablet 5 mg PO QDAY 07/09/24 07/09/24 Allergies Allergy/AdvReac Type Severity Reaction Status Date / Time No Known Drug Allergies Allergy Verified 07/09/24 15:05 Review of Systems Status of ROS: Reports: 6 or more systems reviewed and unremarkable except as noted in History and below PFSH PFSH Medical History Infertility Surgical History History of colposcopy ?Z98.890 - Other specified postprocedural states (ICD-10) Social History What is your current living situation?: I presently have a place to live Problems where you live: no known problems In the past 12 months, utilities in danger of being shut off: no In past 12 months, lack of transportation kept you from medical appts, meetings, work, or getting things needed for daily living: no In the past 12 mos, have been you worried that your food would run out before you had money to buy more?: never true In the past 12 mos, the food you bought just didn't last and you didn't have money to buy more?: never true Smoking Status: Never smoker How often do you have a drink containing alcohol: never AUDIT-C Alcohol total score: 0 How often does anyone, including family, friends and others, physically hurt you: never How often does anyone, including family, friends and others, insult or talk down to you: never How often does anyone, including family, friends and others, threaten you with harm: never How often does anyone, including family, friends and others, scream or curse at you: never Exam Narrative: Exam Narrative: Vital signs reviewed In general, alert, well-appearing young woman. She looks comfortable. Abdomen: Soft nontender. : Cervix is long and closed. No bleeding at this time. Const: Vital Signs, click to edit/add: Vital Signs - 24 hr 07/20/24 16:37 07/20/24 18:10 Temperature 98.8 F 98.4 F Pulse Rate [Pulse Oximeter] 91 77 Respiratory Rate 16 18 Blood Pressure [Ri ght Upper Arm] 128/79 119/77 Pulse Oximetry 99 99 Oxygen Delivery Me thod Room Air Room Air Course Course ED Course: Records reviewed, her blood type is listed as A weak D positive. Will have to discuss with OB Gyne regarding need for RhoGAM. I did a bedside ultrasound here, baby is active, cardiac activity at about 120. Discussed with her that I think today a formal ultrasound would be optional, as I think it is unlikely to liner roll changer. She says she thinks she would feel better having an ultrasound done so that is been ordered. Otherwise currently no active bleeding. Given very minor bleeding I do not think she needs additional labs such as a hemoglobin. Formal ultrasound read by Radiology, results reviewed. Basically shows a single live , heart tones 149. No obvious source for the bleeding, cervix is 5 cm. Discussed this with her. Discussed that she is previable, would avoid intercourse for the next couple of days, but at this point I do not have any reason to suspect this is a at risk of loss. At the same time, discussed that there is nothing she can do or not do to really affect the outcome of this at this point. If she has new symptoms such as significant abdominal pain, fevers, more significant bleeding return to the ER at any time. I did attempt to look up her blood type, which was somewhat confusing. It appears that it was done at [facility], I discussed it with Dr. Adam as it was read as A weak D positive. Neither of us are quite sure what that means some just going to recheck her blood type here. She did have RhoGAM in May because she had some bleeding at that time and apparently they had some concern about her blood work so they just give her RhoGAM. Dr. Adam said that that should still cover her at this point so either way we do not need to give additional RhoGAM. Recommended follow-up by phone tomorrow with OB Gyne just reviewed the blood type, return as needed above, and otherwise follow up with OB as planned. Vital Signs Vital signs: Initial Vital Signs Temperature 98.8 F 07/20/24 16:37 Temperature Source Temporal Artery Scan 07/20/24 16:37 Pulse Rate 91 07/20/24 16:37 Respiratory Rate 16 07/20/24 16:37 Blood Pressure 128/79 07/20/24 16:37 Blood Pressure Mean 95 07/20/24 16:37 Blood Pressure Position Sitting 07/20/24 16:37 Pulse Oximetry 99 07/20/24 16:37 Oxygen Delivery Method Room Air 07/20/24 16:37 Vital Signs Temperature 98.8 F 07/20/24 16:37 Pulse Rate 91 07/20/24 16:37 Respiratory Rate 16 07/20/24 16:37 Blood Pressure 128/79 07/20/24 16:37 Pulse Oximetry 99 07/20/24 16:37 Oxygen Delivery Method Room Air 07/20/24 16:37 Temperature 98.4 F 07/20/24 18:10 Pulse Rate 77 07/20/24 18:10 Respiratory Rate 18 07/20/24 18:10 Blood Pressure 119/77 07/20/24 18:10 Pulse Oximetry 99 07/20/24 18:10 Oxygen Delivery Method Room Air 07/20/24 18:10 Discharge Plan Discharge Clinical Impression: Vaginal bleeding during Patient Disposition: Home, Self-Care Condition: Improved Additional Instructions: Check-in with OB Clinic tomorrow regarding your blood type, given that you had RhoGAM in May you should not need repeat dosing. For heavy bleeding, cramping, fevers or other worsening, return any time. Otherwise follow up with OB as planned. Prescriptions: No Action aspirin [Adult Aspirin Regimen] 81 mg tablet,delayed release (DR/EC) 81 mg PO QDAY folic acid 1 mg tablet 5 mg PO QDAY DHA 200 mg capsule PO lamotrigine 150 mg tablet 150 mg PO DAILY quetiapine 300 mg tablet 300 mg PO QPM metoprolol succinate 50 mg tablet extended release 24 hr 50 mg PO BID Follow Up/Referrals: Provider,Not a Local [Primary Care Provider] - Stand Alone Forms: [employer] Info Instructions
[2024-07-20 18:10] VITALS: BP 119/77; PULSE 77; RESP 18; TEMP 36.9; O2SAT 99
== END 2024-07-20 18:37 | disposition home or self-care (01) ==
PROVIDERS: Emergency Provider Emergency Medicine
DX: O46.92 Antepartum hemorrhage, unspecified, second trimester (principal); Z3A.14 14 weeks gestation of pregnancy
CPT/HCPCS: 36415; 76815; 76857; 86900; 86901; 99284

== ENCOUNTER 2024-08-25 08:26 | Outpatient (CLI) | payer MEDICAID, SELFPAY | END 2024-08-25 08:27 | disposition home or self-care (01) | LOC: US 08:27 | PROVIDERS: Visit Provider Obstetrics & Gynecology | DX: Z34.92 Encounter for supervision of normal pregnancy, unspecified, second trimester (principal); O99.891 Other specified diseases and conditions complicating pregnancy; N13.30 Unspecified hydronephrosis; Z3A.19 19 weeks gestation of pregnancy | CPT/HCPCS: 76811 ==

== ENCOUNTER 2024-10-22 08:33 | Outpatient (CLI) | payer MEDICAID, SELFPAY | END 2024-10-22 08:34 | disposition home or self-care (01) | LOC: NFLDREF 10-25 15:44 | PROVIDERS: Visit Provider Registered Nurse | DX: Z34.03 Encounter for supervision of normal first pregnancy, third trimester (principal) | CPT/HCPCS: 86592 ==

== ENCOUNTER 2024-10-27 10:08 | Outpatient (CLI) | payer MEDICAID, SELFPAY ==
--- OUTSIDE RECORDS SUMMARY | 2024-10-27 10:21 | XMS_ITS | Encounter Summary ---
Author Organization [place] Address [address] [place] [address] Care Team Providers Care Emergency Veterinary Assistant Name Role Phone Salina Doherty MD Unavailable [phone] Carrillo Ware APRN RADIATOR FITTER Unavailable SolitarioAngelica golden NP Unavailable [phone] Nelson Arroyo PA-C Unavailable [phone] Nelson Arroyo PA-C Primary Care Provider Nelsno Arroyo PA-C Unavailable [phone] Pietro Wills MD Unavailable [phone] Tank Bucio MD Unavailable [phone] Encounter Details Date Type Department Care Team (Late st Contact Info) Description 05/04/2020 MyC Medical Advice [address] [address] Galina Blake, RN Social History [...] PM CDT Legal Sex Female 3:44 AM SKELP PROCESSOR Gender Identity Female 10/03/2020 8:33 PM CDT Sexual Orientation Straight 07/01/2018 3: 40 PM SKELP PROCESSOR documented as of this encounter Plan of Treatment Not on file documented as of this encounter Visit Diagnoses Not on filedocumented in this encounter Additional Health Concerns Assessment Noted Time PHQ-9 Depression Total Score: 5 03/03/20 20 7:03 AM CDT documented as of this encounter Care Teams Emergency Veterinary Assistant Relationship Specialty Start Date End Date Nelson Arroyo PA-C [address] [place] [address] PCP - General Physician Airport Ramp Supervisor - Medical 08/06/18 Salina Doherty MD Internal Medicine 12/01/14 Carrillo Ware APRN CNP [address] [place] [address] Nurse Practitioner Nurse Practitioner 12/16/14 Angelica Jerez NP [address] [address] Nurse Practitioner Nurse Practitioner - Family 07/12/16 Nelson Arroyo PA-C [address] [address] Assigned PCP 07/05/18 07/29/20 Nelson Arroyo PA-C [address] [address] [address] Assigned PCP 07/30/20 Pietro Wills MD [address] [address] Assigned Heart and Vascular Provider 12/14/22 06/26/24 Tank Bucio MD [address], [address] [address] Physician return to service inspector 12/01/23 documented as of this encounter
--- OUTSIDE RECORDS SUMMARY | 2024-10-27 10:21 | XMS_ITS | Encounter Summary ---
Author Organization [place] Address [address] [place] [address]. [place] [address] Care Team Providers Care Sales Recruitment Specialist Name Role Phone Salina Doherty MD Unavailable [phone] Carrillo Ware APRN BUSINESS SUPPORT Unavailable SolitarioAngelica golden NP Unavailable [phone] Nelson Arroyo PA-C Primary Care Provider [phone] Nelson Arroyo PA-C Unavailable [phone] Pietro Wills MD Unavailable Tank Bucio MD Unavailable [phone] Reason for Visit * Reason Onset Date Comments Refill Request 10/08/2020 Encounter Details Date Type Department Care Team (Late st Contact Info) Description 10/08/2020 MyC Refill [facility] [address] [place] [address] Nelson Arroyo PA-C [address] [place] [address] Refill Request Social History Tobacco [...] CDT 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:44 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 CONTRACTOR Gender Identity Female 10/03/2020 8:33 PM CDT Sexual Orientation Straight 07/01/2018 3: 40 PM FORESTRY CONTRACTOR documented as of this encounter Miscellaneous Notes [...] Total Score: 6 07/14/19 21 3:35 PM FORESTRY CONTRACTOR documented as of this encounter Care Teams Sales Recruitment Specialist Relationship Specialty Start Date End Date Nelson Arroyo PA-C [address] [place] [address] PCP - General Physician Newborn Hearing Screener - Medical 08/06/18 Salina Doherty MD Internal Medicine 12/01/14 Carrillo Ware APRN BUSINESS SUPPORT [address] [place] [address] Nurse Practitioner Nurse Practitioner 12/16/14 Angelica Jerez NP [facility] [address] [address] [place], [place] [address] Nurse Practitioner Nurse Practitioner - Family 07/12/16 Nelson Arroyo PA-C [address] [address] [place] [place] [address] Assigned PCP 07/30/20 Pietro Wills MD [address] [place] [address] Assigned Heart and Vascular Provider 12/14/22 06/26/24 Tank Bucio MD [address], [facility] [address] [place] [address] Physician retail and promotions coordinator 12/01/23 documented as of this encounter
--- OUTSIDE RECORDS SUMMARY | 2024-10-27 10:21 | XMS_ITS | Encounter Summary ---
Author Organization [place] Address [address] [place] [address]. [place] [address] Care Team Providers Care Bucket Pusher Name Role Phone Salina Doherty MD Unavailable [phone] Carrillo Ware APRN BRANCH ASSOCIATE TELLER Unavailable SolitarioAngelica golden NP Unavailable [phone] Nelson Arroyo PA-C Primary Care Provider Nelson Arroyo PA-C Unavailable [phone] Pietro Wills MD Unavailable Tank Bucio MD Unavailable Reason for Visit * Reason Comments Medication Refill Encounter Details Date Type Department Care Team (Late st Contact Info) Description 08/07/[address], [address] [place] [address] Nelson Arroyo PA-C [address] [place] [address] Medication Refill Social History Tobacco [...] PM CDT Legal Sex Female 3:44 AM WORK FROM HOME Gender Identity Female 10/03/2020 8:33 PM CDT Sexual Orientation Straight 07/01/2018 3: 40 PM WORK FROM HOME COVID-19 Exposure Response Date Recorded In the last month, have you been in contact with someone who was confirmed or suspected to have Coronavirus / COVID-19? No / Unsure 07/13/2020 1:58 PM WORK FROM HOME documented as of this encounter Miscellaneous Notes * Telephone Encounter - Minda Vergara RN - 08/08/2020 5:14 PM CDT Prescription approved per [facility] [place]. Minda Vergara RN on 08/08/2020 at 5:14 PM documented in this encounter Plan of Treatment Not on file documented as of this encounter Visit Diagnoses Diagnosis Acne, unspecified acne type documented in this encounter Additional Health Concerns Assessment Noted Time PHQ-9 Depression Total Score: 6 07/14/19 21 3:35 PM WORK FROM HOME documented as of this encounter Care Teams Bucket Pusher Relationship Specialty Start Date End Date Nelson Arroyo PA-C [address] [place] [address] PCP - General Physician Educational Adviser - Medical 08/06/18 Salina Doherty MD Internal Medicine 12/01/14 Carrillo Ware APRN BRANCH ASSOCIATE TELLER [address] [place] [address] Nurse Practitioner Nurse Practitioner 12/16/14 Angelica Jerez NP [address] [address] Nurse Practitioner Nurse Practitioner - Family 07/12/16 Nelson Arroyo PA-C [address] [place] [address] Assigned PCP 07/30/20 Pietro Wills MD [address] [place] [address] Assigned Heart and Vascular Provider 12/14/22 06/26/24 Tank Bucio MD [address], [address] [address] Physician diamond grinder 12/01/23 documented as of this encounter
--- OUTSIDE RECORDS SUMMARY | 2024-10-27 10:21 | XMS_ITS | Encounter Summary ---
Author Organization [place] Address [address] [place] [address]. [place] [address] Care Team Providers Care Php Web Developer Name Role Phone Salina Doherty MD Unavailable [phone] Carrillo Ware APRN CAST IRON DIPPER Unavailable SolitarioAngelica golden NP Unavailable [phone] Nelson Arroyo PA-C Unavailable [phone] Nelson Arroyo PA-C Primary Care Provider Nelson Arroyo PA-C Unavailable Pietro Wills MD Unavailable Tank Bucio MD Unavailable Reason for Visit * Reason Comments Medication Refill Encounter Details Date Type Department Care Team (Late st Contact Info) Description [address], [address] [place] [address] Nelson Arroyo PA-C [address] [place] [address] Medication Refill Social History Tobacco [...] PM CDT Legal Sex Female 3:44 AM SHOT POLISHER Gender Identity Female 10/03/2020 8:33 PM CDT Sexual Orientation Straight 07/01/2018 3: 40 PM SHOT POLISHER documented as of this encounter Miscellaneous Notes * Telephone Encounter - Nelson Arroyo PA-C - 06/18/2020 10:21 AM SHOT POLISHER Yes- she is my patient. I assume she will continue with me unless she says otherwise? Nelson POLISHER * Telephone Encounter - Tammi Ozuna RN - 06/14/2020 2:50 PM CST Discussed with LG, wonders if PCP would refill, pt not changing PCP, saw if providers absence, please confirm, route to LG if needed Tammi Ozuna RN, BSN Message handled by CLINIC NURSE. POLISHER * Telephone Encounter - Tammi Ozuna RN - 06/14/2020 2:42 PM CST Routing refill request to provider for review/approval because: New for LG Tammi Ozuna RN, BSN Message handled by CLINIC NURSE. POLISHER * Telephone Encounter - Carmen Lynn RN - 06/14/2020 11:45 AM SHOT POLISHER Forwarding to [place]. Saw Valentina FRANCOIS 02/25/20 for PHYSICAL Carmen Turcios RN POLISHER documented in this encounter Plan of Treatment Not on file documented as of this encounter Visit Diagnoses Diagnosis Palpitations Sinus tachycardia Other specified cardiac dysrhythmias Acne, unspecified acne type documented in this encounter Additional Health Concerns Assessment Noted Time PHQ-9 Depression Total Score: 5 03/03/20 20 7:03 AM CDT documented as of this encounter Care Teams Php Web Developer Relationship Specialty Start Date End Date Nelson Arroyo PA-C [address] [place] [address] PCP - General Physician Bonus Clerk - Medical 08/06/18 Salina Doherty MD Internal Medicine 12/01/14 Carrillo Ware APRN CNP [address] [place] [address] Nurse Practitioner Nurse Practitioner 12/16/14 Angelica Jerez NP [address] [address] Nurse Practitioner Nurse Practitioner - Family 07/12/16 Nelson Arroyo PA-C [address] [place] [address] Assigned PCP 07/05/18 07/29/20 Nelson Arroyo PA-C [address] [address] [place] [place] [address] Assigned PCP 07/30/20 Pietro Wills MD [address] [place] [address] Assigned Heart and Vascular Provider 12/14/22 06/26/24 Tank Bucio MD [address], [facility] [address] [place] [address] Physician brand strategy manager 12/01/23 documented as of this encounter
--- OUTSIDE RECORDS SUMMARY | 2024-10-27 10:21 | XMS_ITS | Encounter Summary ---
Author Organization [facility] Address [address] [place] [address] Care Team Providers Care Destaticizer Feeder Name Role Phone Salina Doherty MD Unavailable Carrillo Ware APRN BARREL WASHER MACHINE Unavailable SolitarioAngelica golden NP Unavailable [phone] Nelson Arroyo PA-C Primary Care Provider Nelson Arroyo PA-C Unavailable [phone] Pietro Wills MD Unavailable Tank Bucio MD Unavailable [phone] Encounter Details Date Type Department Care Team (Late st Contact Info) Description 08/24/2020 MyC Medical Advice [address] [address] Jocelyn Joyner Social History Tobacco [...] PM CDT Legal Sex Female 3:44 AM RETORT FIREMAN Gender Identity Female 10/03/2020 8:33 PM CDT Sexual Orientation Straight 07/01/2018 3: 40 PM RETORT FIREMAN documented as of this encounter Plan of Treatment Not on file documented as of this encounter Visit Diagnoses Not on filedocumented in this encounter Additional Health Concerns Assessment Noted Time PHQ-9 Depression Total Score: 6 07/14/19 21 3:35 PM RETORT FIREMAN documented as of this encounter Care Teams Destaticizer Feeder Relationship Specialty Start Date End Date Nelson Arroyo PA-C [address] [place] [address] PCP - General Physician Senior Network Systems Engineer - Medical 08/06/18 Salina Doherty MD Internal Medicine 12/01/14 Carrillo Ware APRN BARREL WASHER MACHINE [address] [place] [address] 786945 Nurse Practitioner Nurse Practitioner 12/16/14 Angelica Jerez NP [facility] [address] [place], [place] [id number] Nurse Practitioner Nurse Practitioner - Family 07/12/16 Nelson Arroyo PA-C [address] [place] [address] Assigned PCP 07/30/20 Pietro Wills MD [address] [place] [place] [address] Assigned Heart and Vascular Provider 12/14/22 06/26/24 Tank Bucio MD [address], [address] [address] Physician radio frequency design engineer 12/01/23 documented as of this encounter
--- OUTSIDE RECORDS SUMMARY | 2024-10-27 10:21 | XMS_ITS | Encounter Summary ---
Author Organization [facility] Address [address] [place] [address]. [place] [address] Care Team Providers Care Leather Seasoner Name Role Phone Salina Doherty MD Unavailable [phone] Carrillo Ware APRN BUILDING OFFICIAL Unavailable SolitarioAngelica golden NP Unavailable [phone] Nelson Arroyo PA-C Unavailable [phone] Nelson Arroyo PA-C Primary Care Provider Chinyere Barbour Unavailable Unavailable Nelson Arroyo PA-C Unavailable Pietro Wills MD Unavailable Tank Bucio MD Unavailable Reason for Visit * Reason Comments Medication Refill Encounter Details Date Type Department Care Team (Late st Contact Info) Description 12/12/[address], [address] [place] [address] Concepción Gonzalez APRN BUILDING OFFICIAL [address] [place] [address] Medication Refill Social History Tobacco [...] PM CDT Legal Sex Female 3:44 AM STRUCTURAL ENGINEER Gender Identity Female 10/03/2020 8:33 PM CDT Sexual Orientation Straight 07/01/2018 3: 40 PM STRUCTURAL ENGINEER documented as of this encounter Plan of Treatment Not on file documented as of this encounter Visit Diagnoses Diagnosis Persistent insomnia Persistent disorder of initiating or maintaining sleep documented in this encounter Additional Health Concerns Assessment Noted Time PHQ-9 Depression Total Score: 7 09/29/19 20 7:04 AM CDT documented as of this encounter Care Teams Leather Seasoner Relationship Specialty Start Date End Date Nelson Arroyo PA-C [address] [place] [address] PCP - General Physician Account Executive Metalworking - Medical 08/06/18 Salina Doherty MD Internal Medicine 12/01/14 Carrillo Ware APRN BUILDING OFFICIAL [address] [place] [address] Nurse Practitioner Nurse Practitioner 12/16/14 Angelica Jerez NP [place] [address] [place] [address] Nurse Practitioner Nurse Practitioner - Family 07/12/16 Nelson Arroyo PA-C [address] [place] [address] Assigned PCP 07/05/18 07/29/20 Chinyere Barbour Personal Advocate & Liaison (PAL) 01/31/20 04/26/20 Nelson Arroyo PA-C [address] [place] [address] Assigned PCP 07/30/20 Pietro Wills MD [address] [place] [address] Assigned Heart and Vascular Provider 12/14/22 06/26/24 Tank Bucio MD [address] [facility] [address] [place] [address] Physician fire hydrant mechanic 12/01/23 documented as of this encounter
--- OUTSIDE RECORDS SUMMARY | 2024-10-27 10:21 | XMS_ITS | Encounter Summary ---
Author Organization [facility] Address [address] [place] [address]. [place] [address] Care Team Providers Care It Security Project Manager Name Role Phone Salina Doherty MD Unavailable [phone] Carrillo Ware APRN BLOW OFF WORKER Unavailable [phone] SolitarioAngelica golden NP Unavailable [phone] Nelson Arroyo PA-C Unavailable [phone] Nelson Arroyo PA-C Primary Care Provider [phone] Chinyere Barbour Unavailable Unavailable Nelson Arroyo PA-C Unavailable Pietro Wills MD Unavailable Tank Bucio MD Unavailable Reason for Visit * Reason Comments Medication Refill Encounter Details Date Type Department Care Team (Late st Contact Info) Description 11/27/[address], [address] [place] [address] Nelson Arroyo PA-C [address] [place] [address] Medication Refill Social History Tobacco [...] PM CDT Legal Sex Female 3:44 AM LOADING INSPECTOR Gender Identity Female 10/03/2020 8:33 PM CDT Sexual Orientation Straight 07/01/2018 3: 40 PM LOADING INSPECTOR documented as of this encounter Miscellaneous Notes * Telephone Encounter - Trang Lozano RN - 11/29/2019 10:57 AM CDT Prescription approved per [facility] Refill Protocol. Trang Lozano RN documented in this encounter Plan of Treatment Not on file documented as of this encounter Visit Diagnoses Diagnosis Palpitations Sinus tachycardia Other specified cardiac dysrhythmias Generalized anxiety disorder documented in this encounter Additional Health Concerns Assessment Noted Time PHQ-9 Depression Total Score: 7 09/29/19 20 7:04 AM CDT documented as of this encounter Care Teams It Security Project Manager Relationship Specialty Start Date End Date Nelson Arroyo PA-C [address] [place] [address] PCP - General Physician Windows Admin - Medical 08/06/18 Salina Doherty MD Internal Medicine 12/01/14 Carrillo Ware APRN BLOW OFF WORKER [address] [place] [address] 65[address]65 Nurse Practitioner Nurse Practitioner 12/16/14 Angelica Jerez NP [place] [facility] [address] [place], [place] [address] Nurse Practitioner Nurse Practitioner - Family 07/12/16 Nelson Arroyo PA-C [address], [place] [address] Assigned PCP 07/05/18 07/29/20 Chinyere Barbour Personal Advocate & Liaison (PAL) 01/31/20 04/26/20 Nelson Arroyo PA-C [address] [address] Assigned PCP 07/30/20 Pietro Wills MD [address] [place] [address] Assigned Heart and Vascular Provider 12/14/22 06/26/24 Tank Bucio MD [address], [address] [address] Physician neonatal critical care nurse 12/01/23 documented as of this encounter
--- OUTSIDE RECORDS SUMMARY | 2024-10-27 10:21 | XMS_ITS | Encounter Summary ---
Author Organization [facility] Address [address] [place] [address] Care Team Providers Care Staff Psychiatrist Name Role Phone Salina Doherty MD Unavailable [phone] Carrillo Ware APRN CARBURETOR EXPERT Unavailable SolitarioAngelica golden NP Unavailable [phone] Nelson Arroyo PA-C Primary Care Provider Nelson Arroyo PA-C Unavailable [phone] Pietor Wills MD Unavailable [phone] Tank Bucio MD Unavailable [phone] Encounter Details Date Type Department Care Team (Late st Contact Info) Description 09/22/2020 MyC Medical Advice [address] [address] Jasvir Mejia Social History Tobacco [...] PM CDT Legal Sex 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 Gender Identity Female 10/03/2020 8:33 PM CDT Sexual Orientation Straight 07/01/2018 3: 40 PM DRESSED POULTRY GRADER documented as of this encounter Plan of Treatment Not on file documented as of this encounter Visit Diagnoses Not on filedocumented in this encounter Additional Health Concerns Assessment Noted Time PHQ-9 Depression Total Score: 6 07/14/19 21 3:35 PM DRESSED POULTRY GRADER documented as of this encounter Care Teams Staff Psychiatrist Relationship Specialty Start Date End Date Nelson Arroyo PA-C [address] [place] [address] PCP - General Physician Director Global - Medical 08/06/18 Salina Doherty MD Internal Medicine 12/01/14 Carrillo Ware APRN CARBURETOR EXPERT [address] [place] [address] Nurse Practitioner Nurse Practitioner 12/16/14 Angelica Jerez NP [facility] [address] [place], [place] [address] Nurse Practitioner Nurse Practitioner - Family 07/12/16 Nelson Arroyo PA-C [address] [place] [address] Assigned PCP 07/30/20 Pietro Wills MD [address] [place] 74[address] Assigned Heart and Vascular Provider 12/14/22 06/26/24 Tank Bucio MD [address] [address] Physician moveman 12/01/23 documented as of this encounter
--- OUTSIDE RECORDS SUMMARY | 2024-10-27 10:21 | XMS_ITS | Encounter Summary ---
Author Organization [facility] Address [address] [place] [address]. [place] [address] Care Team Providers Care Online Tutor Name Role Phone Salina Doherty MD Unavailable [phone] Carrillo Ware APRN PACKAGE DYER Unavailable SolitarioAngelica golden NP Unavailable [phone] Nelson Arroyo PA-C Unavailable [phone] Nelson Arroyo PA-C Primary Care Provider Chinyere Barbour Unavailable Unavailable Nelson Arroyo PA-C Unavailable Pietro Wills MD Unavailable Tank Bucio MD Unavailable Reason for Visit * Reason Onset Date Comments MyChart Communication 12/22/2019 Allergic r eaction Encounter Details Date Type Department Care Team (Late st Contact Info) Description 12/22/2019 MyC Medical Advice [facility] [address] [facility], [address] [place] [address] Nelson Arroyo PA-C [address] [place] [address] MyChart Communication (Allergic reaction) Social [...] PM CDT 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 Gender Identity Female 10/03/2020 8:33 PM CDT Sexual Orientation Straight 07/01/2018 3: 40 PM MACHINING TECHNICIAN documented as of this encounter Miscellaneous Notes * Telephone Encounter - Mello Ramires RN - 12/24/2019 9:19 AM CDT Patient read Fleksy message 12/22 12PM, left voicemail for patient to return call Mello Ramires RN * Telephone Encounter - Mello Ramires RN - 12/23/2019 8:10 AM CDT Called patient and left voicemail to return call, also sent Fleksy message to call, see Fleksy message and triage regarding allergic reaction Mello Ramires RN documented in this encounter Plan of Treatment Not on file documented as of this encounter Visit Diagnoses Not on filedocumented in this encounter Additional Health Concerns Assessment Noted Time PHQ-9 Depression Total Score: 7 09/29/19 20 7:04 AM CDT documented as of this encounter Care Teams Online Tutor Relationship Specialty Start Date End Date eNlson Arroyo PA-C [address] [place] [address] PCP - General Physician Landscape Architecture Teacher - Medical 08/06/18 Salina Doherty MD Internal Medicine 12/01/14 Carrillo Ware APRN PACKAGE DYER [address] [place] [address] Nurse Practitioner Nurse Practitioner 12/16/14 Angelica Jerez NP [facility] [address] [place] [address] Nurse Practitioner Nurse Practitioner - Family 07/12/16 Nelson Arroyo PA-C [address] [place] [address] Assigned PCP 07/05/18 07/29/20 Chinyere Barbour Personal Advocate & Liaison (PAL) 01/31/20 04/26/20 Nelson Arroyo PA-C [address] [place] [address] Assigned PCP 07/30/20 Pietro Wills MD [address] [place] [address] Assigned Heart and Vascular Provider 12/14/22 06/26/24 Tank Bucio MD [address] [facility] [address] [place] [address] Physician tube sizer operator 12/01/23 documented as of this encounter
--- OUTSIDE RECORDS SUMMARY | 2024-10-27 10:22 | XMS_ITS | Encounter Summary ---
Author Organization [facility] Address [address] [place] [address]. [place] [address] Care Team Providers Care Industrial Conveyor Belt Repairer Name Role Phone Salina Doherty MD Unavailable [phone] Carrillo Ware APRN GOLF COURSE ASSISTANT Unavailable SolitarioAngelica golden NP Unavailable [phone] Nelson Arroyo PA-C Primary Care Provider Nelson Arroyo PA-C Unavailable [phone] Tank Bucio MD Unavailable [phone] Reason for Visit * Reason Onset Date Comments Refill Request 07/21/2024 Encounter Details Date Type Department Care Team (Late st Contact Info) Description 07/21/2024 MyC Refill [facility] [address] [place] [address] Nelson Arroyo PA-C [address] [place] [address] Refill Request Social History Tobacco [...] re latives? Once a week 11/24/2023 Attends Sikh Services Not on file 11/23 Active Member of Clubs or Organizations Not on f ile 11/24/2023 Attends Club or Organization Meetings Not on asia e 11/24/2023 Marital Status Not on file 11/24/2023 PHQ-2 Answer Date Recorded PHQ-2 Total Score (Adult) - Positive if 3 or more points; Administer PHQ-9 if positive 0 06/22/2024 [facility] - [...] permanent housing and does not include staying outside in a car, in a tent, in an abandoned building, in an overnight skilled nursing, or couch-surfing.) Yes 11/24/2023 Are you worried [...] PM CDT 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 documented in this encounter Plan of Treatment Not on file documented as of this encounter Visit Diagnoses Diagnosis Elevated blood pressure reading without diagnosis of hypertension documented in this encounter Additional Health Concerns Assessment Noted Time PHQ-9 Depression Total Score: 7 10/03/19 25 9:19 AM CDT documented as of this encounter Care Teams Industrial Conveyor Belt Repairer Relationship Specialty Start Date End Date Nelson Arroyo PA-C [address] [facility] [place] [address] PCP - General Physician Bar Host/Hostess - Medical 08/06/18 Salina Doherty MD Internal Medicine 12/01/14 Carrillo Ware APRN GOLF COURSE ASSISTANT [address] [place] [address] Nurse Practitioner Nurse Practitioner 12/16/14 Angelica Jerez NP [facility] [address] [place] [address] Nurse Practitioner Nurse Practitioner - Family 07/12/16 Nelson Arroyo PA-C [address] [place] [address] Assigned PCP 07/30/20 Tank Bucio MD [address], [facility] [address] [place] [address] Physician quality assurance monitor body 12/01/23 documented as of this encounter
--- OUTSIDE RECORDS SUMMARY | 2024-10-27 10:22 | XMS_ITS | Encounter Summary ---
Author Organization [facility] Address [address] [place] [address]. [place] [address] Care Team Providers Care Certified Medical Coder Name Role Phone Salina Doherty MD Unavailable [phone] Carrillo Ware APRN SHORT PIECE HANDLER Unavailable SolitarioAngelica golden NP Unavailable [phone] Nelson Arroyo PA-C Unavailable [phone] Nelson Arroyo PA-C Primary Care Provider Chinyere Barbour Unavailable Unavailable Nelson Arroyo PA-C Unavailable Pietro Wills MD Unavailable [phone] Tank Bucio MD Unavailable Reason for Visit * Reason Onset Date Comments Refill Request 01/18/2020 Encounter Details Date Type Department Care Team (Late st Contact Info) Description 01/18/2020 MyC Refedgar [facility] [address] [facility], [address] [place] [address] Nelson Arroyo PA-C [address] [place] [address] Refill Request Social History Tobacco [...] PM CDT 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 Nancy Santiago CMA * Telephone Encounter - Blanca Baker - 01/21/2020 10:23 AM CDT Left message for patient to return call Needs appt Blanca Baker/ Jackhammer Splitter Operator * Telephone Encounter - Jahaira Ya CMA [...] the [facility] refill protocol Susanne Zacarias RN [facility] -- Triage Nurse documented in this encounter Plan of Treatment Not on file documented as of this encounter 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), predominantly inattentive type documented in this encounter Additional Health Concerns Assessment Noted Time PHQ-9 Depression Total Score: 7 09/29/19 20 7:04 AM CDT documented as of this encounter Care Teams Certified Medical Coder Relationship Specialty Start Date End Date Nelson Arroyo PA-C [address] [place] [address] PCP - General Physician Clinical Courier - Medical 08/06/18 Salina Doherty MD Internal Medicine 12/01/14 Carrillo Ware APRN SHORT PIECE HANDLER [address] [place] [address] Nurse Practitioner Nurse Practitioner 12/16/14 Angelica Jerez NP [address] [address] Nurse Practitioner Nurse Practitioner - Family 07/12/16 Nelson Arroyo PA-C [address] [address] Assigned PCP 07/05/18 07/29/20 Chinyere Barbour Personal Advocate & Liaison (PAL) 01/31/20 04/26/20 Nelson Arroyo PA-C [address] [address] Assigned PCP 07/30/20 Pietro Wills MD [address] [address] Assigned Heart and Vascular Provider 12/14/22 06/26/24 Tank Bucio MD [address], [facility] [address] [place] [address] Physician curriculum specialist 12/01/23 documented as of this encounter
--- OUTSIDE RECORDS SUMMARY | 2024-10-27 10:22 | XMS_ITS | Encounter Summary ---
Author Organization [facility] Address [address] [place] [address]. [place] [address] Care Team Providers Care Infection Prevention Practitioner Name Role Phone Salina Doherty MD Unavailable Carrillo Ware APRN USED CAR LOT ATTENDANT Unavailable SolitarioAngelica golden NP Unavailable [phone] Nelson Arroyo PA-C Unavailable Nelson Arroyo PA-C Primary Care Provider Chinyere Barbour Unavailable Unavailable Nelson Arroyo PA-C Unavailable [phone] Pietro Wills MD Unavailable [phone] Tank Bucio MD Unavailable Reason for Visit * Reason Onset Date Comments Refill Request 04/25/2020 Encounter Details Date Type Department Care Team (Late st Contact Info) Description 04/25/2020 MyC Pietro [facility], [address] [place] [address] [place] [address] [place] [address] Refill Request Social History Tobacco [...] PM CDT Legal Sex Female 3:44 AM PUBLIC HEALTH TRAINING ASSISTANT Gender Identity Female 10/03/2020 8:33 PM CDT Sexual Orientation Straight 07/01/2018 3: 40 PM PUBLIC HEALTH TRAINING ASSISTANT documented as of this encounter Plan of Treatment Not on file documented as of this encounter Visit Diagnoses Diagnosis Generalized anxiety disorder Major depressive disorder, recurrent episode, moderate (H) Major depressive disorder, recurrent episode, moderate documented in this encounter Additional Health Concerns Assessment Noted Time PHQ-9 Depression Total Score: 5 03/03/20 20 7:03 AM CDT documented as of this encounter Care Teams Infection Prevention Practitioner Relationship Specialty Start Date End Date Nelson Arroyo PA-C [address] [place] [address] PCP - General Physician Charge Loader - Medical 08/06/18 Salina Doherty MD Internal Medicine 12/01/14 Carrillo Ware APRN USED CAR LOT ATTENDANT [address] [place] [address] Nurse Practitioner Nurse Practitioner 12/16/14 Angelica Jerez NP [facility] [address] [place], [place] [address] Nurse Practitioner Nurse Practitioner - Family 07/12/16 Nelson Arroyo PA-C [address] [address] Assigned PCP 07/05/18 07/29/20 Chinyere Barbour Personal Advocate & Liaison (PAL) 01/31/20 04/26/20 Nelson Arroyo PA-C [address] [place] [address] Assigned PCP 07/30/20 Pietro Wills MD [address] [place] [address] Assigned Heart and Vascular Provider 12/14/22 06/26/24 Tank Bucio MD [address] [facility] [address] [place] [address] Physician coreroom foundry laborer 12/01/23 documented as of this encounter
--- OUTSIDE RECORDS SUMMARY | 2024-10-27 10:22 | XMS_ITS | Encounter Summary ---
Author Organization [facility] Address [address] [place] [address]. [place] [address] Care Team Providers Care Rn Coronary Care Unit Name Role Phone Salina Doherty MD Unavailable Carrillo Ware APRN EXECUTIVE PRODUCER Unavailable SolitarioAngelica golden NP Unavailable [phone] Nelson Arroyo PA-C Primary Care Provider Nelson Arroyo PA-C Unavailable Pietro Wills MD Unavailable Tank Bucio MD Unavailable [phone] Reason for Visit * Reason Comments Medication Refill Encounter Details Date Type Department Care Team (Late st Contact Info) Description 06/29/2023 Refill [facility] [address] [place] [address] [place] [address] [place] [address] Medication Refill Social History Tobacco [...] CDT Legal Sex Female 3:44 AM HEAD OPERATOR SULFIDE Gender Identity Female 10/03/2020 8:33 PM CDT Sexual Orientation Straight 07/01/2018 3: 40 PM HEAD OPERATOR SULFIDE documented as of this encounter Miscellaneous Notes * Telephone Encounter - Mary Fragoso - 06/30/2023 1:18 PM CST LVM & sent MCM to advise pt to follow up with psych provider for rx. Mary Lorenzana Senior Director Of [employer] OPERATOR SULFIDE * Telephone Encounter - Nelson Arroyo PA-C - 06/30/2023 11:03 AM HEAD OPERATOR SULFIDE I think she see's Psych for this. Nelson OPERATOR SULFIDE documented in this encounter Plan of Treatment Not on file documented as of this encounter Visit Diagnoses Diagnosis Generalized anxiety disorder documented in this encounter Additional Health Concerns Assessment Noted Time PHQ-9 Depression Total Score: 8 03/31/20 23 1:09 PM HEAD OPERATOR SULFIDE documented as of this encounter Care Teams Rn Coronary Care Unit Relationship Specialty Start Date End Date Nelson Arroyo PA-C [address] [place] [address] PCP - General Physician Tape Edge Machine Operator - Medical 08/06/18 Salina Doherty MD Internal Medicine 12/01/14 Carrillo Ware APRN CNP [address] [place] [id number] Nurse Practitioner Nurse Practitioner 12/16/14 Angelica Jerez NP [address] [address] Nurse Practitioner Nurse Practitioner - Family 07/12/16 Nelson Arroyo PA-C [address] [address] Assigned PCP 07/30/20 Pietro Wills MD [address] [address] Assigned Heart and Vascular Provider 12/14/22 06/26/24 Tank Bucio MD [address] [place], [address] [address] Physician automation specialist 12/01/23 documented as of this encounter
--- OUTSIDE RECORDS SUMMARY | 2024-10-27 10:22 | XMS_ITS | Encounter Summary ---
Author Organization [facility] Address [address] [place] [address]. [place] [address] Care Team Providers Care Car Worker Helper Name Role Phone Salina Doherty MD Unavailable [phone] Carrillo Ware APRN WOOD PATTERN MAKER Unavailable SolitarioAngelica golden NP Unavailable [phone] Nelson Arroyo PA-C Primary Care Provider Nelson Arroyo PA-C Unavailable [phone] Pietro Wills MD Unavailable [phone] Tank Bucio MD Unavailable [phone] Encounter Details Date Type Department Care Team (Late st Contact Info) Description 07/30/2023 MyC Medical Advice [facility] [address] [place] [address] Nelson Arroyo PA-C [address] [place] [address] Social History Tobacco Use Types [...] in an overnight jail, or couch-surfing.) Yes 03/31/2023 Are you worried [...] PM CDT Legal Sex Female 3:44 AM CUSTOMER MARKETING MANAGER Gender Identity Female 10/03/2020 8:33 PM CDT Sexual Orientation Straight 07/01/2018 3: 40 PM CUSTOMER MARKETING MANAGER documented as of this encounter Miscellaneous Notes * Telephone Encounter - Kay Zambrano RN - 07/30/2023 5:53 PM CDT Will forward to Nelson Arroyo. documented in this encounter Plan of Treatment Not on file documented as of this encounter Visit Diagnoses Not on filedocumented in this encounter Additional Health Concerns Assessment Noted Time PHQ-9 Depression Total Score: 8 03/31/20 23 1:09 PM CUSTOMER MARKETING MANAGER documented as of this encounter Care Teams Car Worker Helper Relationship Specialty Start Date End Date Nelson Arroyo PA-C [address] [place] [address] PCP - General Physician Breading Machine Tender - Medical 08/06/18 Salina Doherty MD Internal Medicine 12/01/14 Carrillo Ware APRN WOOD PATTERN MAKER [address] [place] [address] [id number] Nurse Practitioner Nurse Practitioner 12/16/14 Angelica Jerez NP [facility] [address] [place], [place] [address] Nurse Practitioner Nurse Practitioner - Family 07/12/16 Nelson Arroyo PA-C [address] [place] [address] Assigned PCP 07/30/20 Pietro Wills MD [address] [place] [address] Assigned Heart and Vascular Provider 12/14/22 06/26/24 Tank Bucio MD [address] [place], [address] [address] Physician ux design manager 12/01/23 documented as of this encounter
--- OUTSIDE RECORDS SUMMARY | 2024-10-27 10:22 | XMS_ITS | Clinical Summary ---
Author Organization [facility] Address [address] [place] [address] Care Team Providers Care Accountant Property Name Role Phone Salina Doherty MD Unavailable [phone] Carrillo Ware APRN MEDICAL CENTER MANAGER Unavailable SolitarioAngelica golden NP Unavailable [phone] Nelson Suarez PA-C Primary Care Provider Nelson Suarez PA-C Unavailable [phone] Tank Bucio MD Unavailable [phone] Allergies Active Allergy Reactions Criticality Noted Date Comments Diazepam 09/26/2015 hives Sertraline Hcl Other (See Comments) 10/02/2010 Fainting, unable to sleep Medications * This document contains information received from the source organization and may not represent a complete record from that organization. QUEtiapine (SEROQUEL) 300 MG tabletIndications :Generalized anxiety disorder Take 1 tablet (300 mg) by mouth At Bedtime 90 tablet 1 2 Active lamoTRIgine (LAMICTAL) 150 MG tablet Take 150 mg by mouth 2 Active metoprolol succinate ER (TOPROL XL) 50 MG 24 hr tabletIndications :Elevated blood pressure reading without diagnosis of hypertension Take 1 tablet (50 mg) by mouth 2 times daily. 180 tablet 5 Active EPINEPHrine (ANY BX GENERIC EQUIV) 0.3 MG/0.3ML injection 2-packIndications :Allergic reaction, initial encounter Inject 0.3 mLs (0.3 mg) into the muscle as needed for anaphylaxis. 2 each Active Active Problems Problem Noted Date Diagnosed Date Major depressive disorder, recurrent episode, se liyah 10/29/2021 ASCUS with positive high risk HPV cervical 03/02 Overview (04/09/2023): 03/02/20 ASCUS, +HR HPV, not 16/18. Plan [place] bef 06/02/20 11/14/20 Lost to follow-up for pap tracking 01/31/21 Amenia Bx's & ECC - negative ([facility]) 03/31/23 NIL pap, Neg HR HPV Plan cotest in 3 years Sinus tachycardia 07/05/2019 Persistent insomnia 06/30/2019 Palpitations 05/15/2018 Controlled substance agreeme nt signed. MANAGER DIGITAL AD OPERATIONS check05/13/18, no concerns 08/21/2015 Other specified attention [...] Benzodiazepine use reviewed by psychiatry: No Last [facility] website verification: done on 10.20.18 [email or web address] Major depressive disorder, recurrent episode, mo derate 09/10/2011 ODD (oppositional defiant disorder) 05/24/2011 Syncope 10/04/2010 Estimated Date of Delivery Comme nts Yes 01/14/2025 Resolved Problems Problem Noted Date Diagnosed Date Resolved Date Morbid obesity 08/15/2022 11/24/2023 Adjustment disorder with dis turbance of conduct 09/10/2011 10/04/2016 Cannabis abuse, episodic 05/24/2011 Depression 05/24/2011 01/08/2015 Encounters Date Type Department Care Team Description 10/27/2024 Refill [facility] [address] [place] [address] Nelson Suarez PA-C Medication Refill 08/15/2024 Refill [facility] [place] [address] [place] [address] Nelson Suarez PA-C Medication Refill 07/28/2024 MyC Refill [facility] [place] [address] [place] [address] Nelson Suarez PA-C Refill Request 07/28/2024 [facility]ill [facility] [address] [place] [address] Nelson Suarez PA-C Medication Refill from Last 3 Months Immunizations Immunization Administration Dates Next Due DTaP, Unspecified 08/02/1999, [...] Brother 2 Alcohol/Drug Father alcohol, in was alf for DUI Anxiety Disorder Father Mental Illness [...] re latives? Once a week 11/24/2023 Attends [employer] Not on file 11/23 Active Member of Clubs or Organizations Not on f ile 11/24/2023 Attends Club or Organization Meetings Not on asia e 11/24/2023 Marital Status Not on file 11/24/2023 PHQ-2 Answer Date Recorded PHQ-2 Total Score (Adult) - Positive if 3 or more points; Administer PHQ-9 if positive 0 06/22/2024 [facility] [...] in an abandoned building, in an overnight custodial, or couch-surfing.) Yes 11/24/2023 Are you worried [...] PM CDT Legal Sex Female 3:44 AM AIRLINE MANAGER Gender Identity Female 10/03/2020 8:33 PM CDT Sexual Orientation Straight 07/01/2018 3: 40 PM AIRLINE MANAGER Last Filed Vital Signs Vital Sign [...] Maintenance Due Date Last Done Comments COVID-19 VACCINE ( season) 2024 TDAP VACCINE () 10/15/2024 006, 08/02/1999, 09/25/1995, Additional history exists YEARLY PREVENTIVE VISIT 11/23/2024 11/24/19 24, 08/15/2022, 02/07/2022, Additional history exists PHQ-9 12/21/2024 06/23/2024, 11/03, 03/31/2023, Additional history exists INFLUENZA VACCINE (Season Ended) 2025 03/11/2023, 03/11/2023, 02/07/2022, Additional history exists ANNUAL REVIEW OF HM ORDERS 06/24/202506/24, 11/24/2023, 07/24/2022, Additional history exists SHANTELL ASSESSMENT 06/24/2025 06/24/2024, 02/02, 10/22/2021, Additional history exists HPV FOLLOW-UP 03/31/2026 03/31/2023, 03/02/2020 PAP FOLLOW-UP 03/31/2026 03/31/2023, 02/03, 06/27/2015 DTAP/TDAP/TD VACCINE (8 - Td or Tdap) 08/30/2026 08/30/2016, 12/27/2005, 12/27/2005, Additional history exists ADVANCE CARE PLANNING 11/23/2028 11/24/2023, 023 ZOSTER VACCINE (1 of 2) 2044 HPV VACCINE Completed 01/15/2011, 07/05, 02/12/2010 MENINGITIS VACCINE Aged Out 04/09/2012, 07/05/2009 No longer eligible based on patient's age to complete this topic DEPRESSION ACTION PLAN Completed 8, 11/25/2017, 08/30/2016, Additional history exists HEPATITIS B VACCINE Completed 03/11/2023, 03/11/1995, 03/11/1995, Additional history exists PAP Discontinued 03/31/2023, 02/03, 06/27/2015 HEPATITIS C SCREENING Completed 05/21/2024 , 05/21/2024, 02/07/2022, Additional history exists HIV SCREENING Completed 05/21/2024, 05/05, 05/24/2011, Additional history exists PNEUMOCOCCAL VACCINE: PEDIATRICS (0 to 5 YEARS) AND AT-RISK PATIENTS (6 to 49 YEARS) Aged Out No longer eligible based on patient's age to complete this topic RSV VACCINE (No Doses Required) Completed Procedures Procedure Name Priority Date/Time Associated Diagnosis Comments HPV HIGH RISK TYPES DNA CERVICAL Add-On 03/31/2023 2:16 PM AIRLINE MANAGER ASCUS with positive high risk HPV cervical GYNECOLOGIC CYTOLOGY Routine 03/31/2023 2:16 PM AIRLINE MANAGER Cervical cancer screening HEPATITIS C ANTIBODY Routine 12/27/2014 3:38 PM CDT Pain in joint, multiple sites Raynaud's syndrome Arthralgia of both knees Smoker HIV 1 AND 2 ANTIBODY (QUEST) Routine 05/24/2011 7:21 AM AIRLINE MANAGER from Last 3 Months or Most Recently Relevant to Health Maintenance Results * Pap Screen reflex to HPV if ASCUS - recommend age 25 - 29 (03/31/2023 2:16 PM AIRLINE MANAGER) Interpretation Negative for Intraepithelial Lesion or Malignancy (NILM) 04/03/2023 10:33 AM AIRLINE MANAGER [facility] LAB[facility] at 1033 AIRLINE MANAGER Comment Papanicolaou Test Limitations: Cervical cytology is a screening test with limited sensitivity, and regular screening is critical for cancer prevention. Pap tests are primarily effective for the diagnosis/prevent ion of squamous cell carcinoma, not adenocarcinoma or other cancers. 04/03/2023 10:33 AM AIRLINE MANAGER [facility] Specimen Adequacy Satisfactory for evaluation, endocervical/angel sformation zone component absent 04/03/2023 10:33 AM AIRLINE MANAGER [facility] Clinical Information none 04/03/2023 10:33 AM AIRLINE MANAGER [facility] LMP/Menopause Date 03/12/2023 04/03/2023 10:33 AM AIRLINE MANAGER [facility] Reflex Testing Yes if ASCUS 04/03/20 10:33 AM AIRLINE MANAGER [facility] Previous Abnormal? Yes 04/03/2023 10:33 AM AIRLINE MANAGER [facility] Previous Abnormal Diagnosis HPV 2020, ASCUS 04/03/2023 10:33 AM AIRLINE MANAGER [facility] Performing Labs The technical component of this testing was completed at [facility] 04/03/2023 10:33 AM AIRLINE MANAGER [facility] Brushing CERVIX UTERI STRUCTURE / Unknown Non-blood Collection / Unknown 03/31/2023 2:16 PM AIRLINE MANAGER 03/31/2023 2:26 PM AIRLINE MANAGER us Nelson RODRIGUEZ - BEAKER AP Final Resul t [facility] LAB[facility] Specialty Lab [address], [address] [place] [address], [facility] [phone] * HPV High Risk Types DNA Cervical (03/31/2023 2:16 PM AIRLINE MANAGER) Other HR HPV Negative Negative 04/07/2023 8:30 AM AIRLINE MANAGER [facility]AGNOST[facility] HPV16 DNA Negative Negative 04/07/2023 8:30 AM AIRLINE MANAGER MOLECULAR DIAGNOSTICS HPV18 DNA Negative Negative 04/07/2023 8:30 AM AIRLINE MANAGER MOLECULAR DIAGNOSTICS FINAL DIAGNOSIS This patient's sample is negative for HPV DNA. This test was developed and its performance characteristics determined by the [facility], Molecular Diagnostics Laboratory. It has not [...] clinical followup is recommended. 04/07/2023 8:30 AM AIRLINE MANAGER MOLECULAR DIAGNOSTICS Brushing CERVIX UTERI STRUCTURE / Unknown Non-blood Collection / Unknown 03/31/2023 2:16 PM AIRLINE MANAGER 04/04/2023 9:26 AM AIRLINE MANAGER Nelson Suarez PA-C LAB - BLOOD ORDERABLES Kalee l Result MOLEC[facility] DIAGNOSTICS Molecular Diagnostics [address] [facility] [address] [facility], [address] [place] [address], [facility] [phone] * Hepatitis C antibody (12/27/2014 3:38 PM CDT) Pathologist [facility] Hepatitis C Antibody Nonreactive Assay performance characteristics have not been established for newborns, infants, and children NR [facility] Blood specimen (specimen) 12/27/2014 3:38 PM CDT 12/27/2014 3:40 PM CDT us Carrillo Ware APRN MEDICAL CENTER MANAGER LAB - BLOOD ORDERABLE S Final Result [facility] [address] [place] [address] * HIV 1 and 2 Antibody (05/24/2011 7:21 AM AIRLINE MANAGER) Pathologist [facility] HIV 1&2 Antibody Negative NEG [facility] 05/24/2011 7:21 AM AIRLINE MANAGER 05/24/2011 7:22 AM AIRLINE MANAGER us Vidal Suarez MD LAB - BLOOD ORDERABLES Final Result Performing Organization Address City/[facility]/ZIP Co de Phone Number [facility] [address] [place] [address] from Last 3 Months or Most Recently Relevant to Health Maintenance Insurance [place] [address] [facility] * Guarantor: Nidia Crystal Account Type Relation to Patient Date of Phone Billing Address Medication Therapy Self [address] [place] [id number] Advance Directives For more information, please contact: [phone] * Full Code (Latest Code Status on File) Date Activated Date Inactivated Comments 05/23/2011 9:13 PM 05/28/2011 6:55 PM Care Teams Accountant Property Relationship Specialty Start Date End Date Nelson Suarez PA-C [address] [place] [address] PCP - General Physician Conference Service Coordinator - Medical 08/06/18 Salina Doherty MD Internal Medicine 12/01/14 Carrillo Ware APRN MEDICAL CENTER MANAGER [address] [place] [address] [id number] Nurse Practitioner Nurse Practitioner 12/16/14 Angelica Jerez NP [facility] [address] [place], [place] [address] Nurse Practitioner Nurse Practitioner - Family 07/12/16 Nelson Suarez PA-C [address] [address] Assigned PCP 07/30/20 Tank Bucio MD [address], [facility] [address] [place] [address] Physician dress fitter 12/01/23
--- OUTSIDE RECORDS SUMMARY | 2024-10-27 10:22 | XMS_ITS | Encounter Summary ---
Author Organization [facility] Address [address] [place] [address]. [place] [address] Care Team Providers Care Technician Chemical Cleaning Name Role Phone Salina Doherty MD Unavailable [phone] Carrillo Ware APRN BULLET ASSEMBLY PRESS SETTER OPERATOR Unavailable SolitarioAngelica golden NP Unavailable [phone] Nelson Arroyo PA-C Primary Care Provider [phone] Nelson Arroyo PA-C Unavailable [phone] Tank Bucio MD Unavailable [phone] Reason for Visit * Reason Comments Medication Refill Encounter Details Date Type Department Care Team (Late st Contact Info) Description 10/27/2024 Refill [facility] [address] [place] [address] Nelson Arroyo PA-C [address] [place] [address] Medication Refill Social History Tobacco [...] points; Administer PHQ-9 if positive 0 06/22/2024 [facility] - [...] in an abandoned building, in an overnight long-term, or couch-surfing.) Yes 11/24/2023 Are you worried [...] PM CDT Legal Sex Female 3:44 AM AGENT SPA DESK Gender Identity Female 10/03/2020 8:33 PM CDT Sexual Orientation Straight 07/01/2018 3: 40 PM AGENT SPA DESK documented as of this encounter Plan of Treatment Not on file documented as of this encounter Visit Diagnoses Diagnosis Elevated blood pressure reading without diagnosis of hypertension documented in this encounter Additional Health Concerns Assessment Noted Time PHQ-9 Depression Total Score: 7 10/03/19 25 9:19 AM CDT documented as of this encounter Care Teams Technician Chemical Cleaning Relationship Specialty Start Date End Date Nelson Arroyo PA-C [address] [place] [address] PCP - General Physician Imaging Tech - Medical 08/06/18 Salina Doherty MD Internal Medicine 12/01/14 Carrillo Ware APRN BULLET ASSEMBLY PRESS SETTER OPERATOR [address] [place] [address] Nurse Practitioner Nurse Practitioner 12/16/14 Angelica Jerez NP [address] [address]11327 Nurse Practitioner Nurse Practitioner - Family 07/12/16 Nelson Arroyo PA-C [address] [place] [address] Assigned PCP 07/30/20 Tank Bucio MD [address], [facility] [address] [place] [address] Physician cost recorder 12/01/23 documented as of this encounter
--- OUTSIDE RECORDS SUMMARY | 2024-10-27 10:22 | XMS_ITS | Encounter Summary ---
Author Organization [facility] Address [address] [place] [address]. [place] [address] Care Team Providers Care Fiberglass Boat Finisher Name Role Phone Salina Doherty MD Unavailable Carrillo Ware APRN STAFF NURSE ICU RESOURCE TEAM Unavailable SolitarioAngelica golden NP Unavailable [phone] Nelson rAroyo PA-C Unavailable Nelson Arroyo PA-C Primary Care Provider [phone] Chinyere Barbour Unavailable Unavailable Nelson Arroyo PA-C Unavailable [phone] Pietro Wills MD Unavailable [phone] Tank Bucio MD Unavailable Encounter Details Date Type Department Care Team (Late st Contact Info) Description 04/25/2020 [facility] Medical Advice [address] [address] Nelson Arroyo PA-C [address] [place] [address] Social History Tobacco Use Types [...] PM CDT Legal Sex Female 3:44 AM COMPRESSION MOLDING MACHINE TENDER Gender Identity Female 10/03/2020 8:33 PM CDT Sexual Orientation Straight 07/01/2018 3: 40 PM COMPRESSION MOLDING MACHINE TENDER documented as of this encounter Plan of Treatment Not on file documented as of this encounter Visit Diagnoses Not on filedocumented in this encounter Additional Health Concerns Assessment Noted Time PHQ-9 Depression Total Score: 5 03/03/20 20 7:03 AM CDT documented as of this encounter Care Teams Fiberglass Boat Finisher Relationship Specialty Start Date End Date Nelson Arroyo PA-C [address] [place] [address] PCP - General Physician Project Mgr - Medical 08/06/18 Salina Doherty MD Internal Medicine 12/01/14 Carrillo Ware APRN STAFF NURSE ICU RESOURCE TEAM [address] [place] [address] [id number] Nurse Practitioner Nurse Practitioner 12/16/14 Angelica Jerez NP [facility] [address] [place] [address] Nurse Practitioner Nurse Practitioner - Family 07/12/16 Nelson Arroyo PA-C [address] [address] Assigned PCP 07/05/18 07/29/20 Chinyere Barbour Personal Advocate & Liaison (PAL) 01/31/20 04/26/20 Nelson Arroyo PA-C [address] [place] [address] Assigned PCP 07/30/20 Pietro Wills MD [address] [place] [address] Assigned Heart and Vascular Provider 12/14/22 06/26/24 Tank Bucio MD [address] [facility] [address] [place] [address] Physician supervisor cooperage shop 12/01/23 documented as of this encounter
--- OUTSIDE RECORDS SUMMARY | 2024-10-27 10:22 | XMS_ITS | Encounter Summary ---
Author Organization [facility] Address [address] [place] [address]. [place] [address] Care Team Providers Care Shuttle Truck Driver Name Role Phone Salina Doherty MD Unavailable [phone] Carrillo Ware APRN SUPERVISOR ALUMINUM FABRICATION Unavailable SolitarioAngelica golden NP Unavailable [phone] Nelson Arroyo PA-C Primary Care Provider [phone] Nelson Arroyo PA-C Unavailable [phone] Tank Bucio MD Unavailable [phone] Reason for Visit * Reason Comments Medication Refill Encounter Details Date Type Department Care Team (Late st Contact Info) Description 07/28/2024 Refill [facility] [address] [place] [address] Nelson Arroyo PA-C [address] [place] [address] Medication Refill Social History Tobacco [...] re latives? Once a week 11/24/2023 Attends [employer] Services Not on file 11/23 Active Member of Clubs or Organizations Not on f ile 11/24/2023 Attends Club or Organization Meetings Not on asia e 11/24/2023 Marital Status Not on file 11/24/2023 PHQ-2 Answer Date Recorded PHQ-2 Total Score (Adult) - Positive if 3 or more points; Administer PHQ-9 if positive 0 06/22/2024 [facility] Occupat [facility] - Occupational Stress [...] in an abandoned building, in an overnight group home, or couch-surfing.) Yes 11/24/2023 Are you [...] PM CDT Legal Sex Female 3:44 AM TAPE WEAVER Gender Identity Female 10/03/2020 8:33 PM CDT Sexual Orientation Straight 07/01/2018 3: 40 PM TAPE WEAVER documented as of this encounter Plan of Treatment Not on file documented as of this encounter Visit Diagnoses Diagnosis Elevated blood pressure reading without diagnosis of hypertension documented in this encounter Additional Health Concerns Assessment Noted Time PHQ-9 Depression Total Score: 7 10/03/19 25 9:19 AM CDT documented as of this encounter Care Teams Shuttle Truck Driver Relationship Specialty Start Date End Date Nelosn Arroyo PA-C [address] [place] [address] PCP - General Physician Air Battle Manager - Medical 08/06/18 Salina Doherty MD Internal Medicine 12/01/14 Carrillo Ware APRN SUPERVISOR ALUMINUM FABRICATION [address] [place] [address] Nurse Practitioner Nurse Practitioner 12/16/14 Angelica Jerez NP [address] 3093[address] Nurse Practitioner Nurse Practitioner - Family 07/12/16 Nelson Arroyo PA-C [address] [place] [address] Assigned PCP 07/30/20 Tank Bucio MD [address], [facility] [address] [place] [address] Physician medical investigator 12/01/23 documented as of this encounter
--- OUTSIDE RECORDS SUMMARY | 2024-10-27 10:22 | XMS_ITS | Clinical Summary ---
Author Organization [facility] Address [address] [place] [address] Care Team Providers Care Top Steep Tender Name Role Phone Pcp, No Primary Care Provider Unavailabl e Allergies Active Allergy Reactions Criticality Noted Date Comments Sertraline Hcl Other - Describe In Comment Field 10/02/2010 Fainting, unable to sleep Medications tretinoin 0.05 % 0.05 % cream Spread a pea size amount into affected area topically at bedtime. Use sunscreen SPF>20. 45 g 11 04/26/2015 12:49 PM ROTARY DRILLER 5 Active cetirizine (ZYRTEC) 10 mg tablet Take 10 mg by mouth once daily. 1 Active EPINEPHrine (EPIPEN) 0.3 mg/0.3 mL injection INJECT 0.3 MLS (0.3 MG) INTO THE MUSCLE NEEDED FOR ANAPHYLAXIS 1 Active tiZANidine (ZANAFLEX) 4 mg tabletIndicatio ns:Tightness of neck Take 0.5-1 Tablets (2-4 mg) by mouth at bedtime if needed for Muscle Spasm. 30 Tablet 2 Active Additional Information Patient not taking.Reported on 07/19/2024 COQ10, UBIQUINOL, ORAL Take by mouth. Active magnesium 250 mg tab Take 250 mg by mouth once daily. Active vitamins no.2 ( VITAMIN NO.2 ORAL) Take by mouth. Activ e calcium carbonate (Calcium 500) 500 mg calcium (1,250 mg) chewable tablet Chew 1,250 mg by mouth three times daily with meals. Active metoprolol succinate (TOPROL XL) 50 mg sustained-relea se tablet Take 1 Tablet (50 mg) by mouth two times daily. 4 Active lamoTRIgine 150 mg tabletIndicatio ns:Severe episode of recurrent major depressive disorder, without psychotic features (HC) Take 1 Tablet (150 mg) by mouth once daily. 90 Tablet 1 5 Active QUEtiapine (SEROQUEL) 300 mg tabletIndicatio ns:Severe episode of recurrent major depressive disorder, without psychotic features (HC) Take 1 Tablet (300 mg) by mouth at bedtime. 90 Tablet 1 5 Active Active Problems Problem Noted Date Diagnosed [...] cervical 03/02/2020 03/02/2020 ASCUS/HPV+, HPV 16/18 Negative. ([place]). PLAN: Pap/HPV testing due 01/2022 Depression 2014 [...] 02/07/2022 Depression, major, single episode, mild 02/08/20 Generalized anxiety disorder 02/07/2022 Severe episode of recurrent major depressive disorder, without psychotic features 02/07/2022 ASCUS with positive high risk HPV cervical 03/02 Overview (02/01/2021): 03/02/2020 ASCUS/HPV+, HPV 16/18 Negative. ([place]) 01/31/2021 Colposcopy: Benign PLAN: Pap/HPV testing due 01/2022 Estimated Date of Delivery Comme nts Yes 01/14/2025 Based on last me nstrual period of 04/09/2024 Encounters Date Type Department Care Team Description 10/26/[address] [facility] [address] [place] [address] Chrissy Jefferson, JACQUE Refill Request (Guanfacine Er) from Last 3 Months Immunizations Immunization Administration Dates Next Due HIB PRP-T (ActHIB,Hiberix) 09/25/1995,01/09/1995 ,1994,1994 HPV 9 (Gardasil 9) 01/15/2011,08/02/2010, 010 Hepatitis A, Unspecified 04/09/2012,02/12/2010 Hepatitis B, Unspecified 03/11/1995,1994,0 1994 Inactivated Polio Vaccine 08/02/1999,01/09/1995, 1994,1994 Influenza Virus, Unspecified 03/03/2017, 02/16/2015,01/19/2015,03/11/2014 ,03/10/2014,04/09/2012,02/12/2010 Influenza, IIV4 02/07/2022,03/02/2020,02/04/2019 ,06/22/2018 MMR 08/02/1999,09/25/1995 Meningococcal Vaccine (Menomune) 04/09/2012,030 07/2009 Tdap 12/27/2005 Tdap, Unspecified 08/30/2016, 0,09/25/1995,01/09/1995 [...] on file Legal Sex Female 8:07 AM ROTARY DRILLER Gender Identity Not on file Sexual Orientation [...] Estimated Date of Delivery 05/21/2024 - Present (10/27/2024) 01/14/2025 (set by Valentina Marie, RN on 05/21/2024 based on Last Menstrual Period on 04/09/2024) Dating Summary Based On GABRIEL GA Diff Last Menstrual Period on 04/09/2024 01/14/2025 Working Alternate GABRIEL Entry 01/14/2025 Same Vitals Pregravid Weight Height TWG (As of 10/27/2024) Pregrav id BMI 1.667 m (5' 5.63) Notes Progress Notes - OB Encounte r - 05/21/2024 - GA:6w0d 05/21/2024 - 6w0d - Valentina Marie, RN SUBJECTIVE: Nidia Crystal is a 28 [...] Delivery Type: NA 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 MENSTRUAL HISTORY: Patient's last menstrual period was 04/09/2024.: Cycle Regularity: regular, every 28-30 days Past Medical History: . Date Anxiety 2014 ASCUS with positive high risk HPV cervical 03/02/2020 03/02/2020 ASCUS/HPV+, HPV 16/18 Negative. ([place]). 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 - Encouraged patient to call clinic at [phone] with any vaginal bleeding, fluid leaking from [...] Valentina Marie RN .................... 05/21/2024 1:57 PM RY DRILLER Last Filed Vital Signs Vital Sign Reading [...] Body Mass Index 34.11 05/21/2024 1:46 PM ROTARY DRILLER Plan of Treatment Health Maintenance Due Date Last Done Comments Pap test for age 21-65 2015 COVID-19 vaccine series (2023- season) 2024 Influenza Vaccine (Season Ended) 2025 02/07/2022, 03/02/2020, 02/04/2019, Additional history exists BMI (ht and wt on same day) for age 18+ 05/21/2025 05/21/2024, 02/07/2022, 04/09/2021, Additional history exists Depression screening for age 12+ 07/19/2025 07/19/2024, 05/21/2024, 05/19/2024, Additional history exists Tetanus booster 08/30/2026 08/30/2016, 12/04, 08/02/1999, Additional history exists Hepatitis B series for 19+ Completed 03/11, 1994, 1994 Tdap Completed 08/30/2016, 12/04, 08/02/1999, Additional history exists HIV for age 15-65 Completed 05/21/2024 Hepatitis C screening for age 18-79 Completed 05/21/2024, 02/07/2022 Pneumococcal series for age 6-49 Aged Out No longer eligible based on patient's age to complete this topic RSV vaccine for adults or (No Doses Required) Completed Procedures Procedure Name Priority Date/Time Associated Diagnosis Comments ANTI HIV 1/2 Routine 05/21/2024 2:50 PM ROTARY DRILLER Encounter for supervision of normal first in first trimester (HC) ANTI HCV Routine 05/21/2024 2:50 PM ROTARY DRILLER Encounter for supervision of normal first in first trimester (HC) from Last 3 Months or Most Recently Relevant to Health Maintenance Results * ANTI HCV (05/21/2024 2:50 PM ROTARY DRILLER) HEPATITIS C ANTIBODY NON-REACTI VE NON-REACT TANIKA [facility] Comment: HCV antibody was non-reactive. There is no laboratory evidence of HCV infection. In most cases, no further action is required. However, if recent HCV exposure is suspected, a test for HCV RNA (test code 57140) is suggested. For additional information please refer to http://[employer].Hibernater/faq/EJH46c6 (This link is being provided for informational/ educational purposes only.) Blood BLOOD SPECIMEN / Unknown 05/21/2024 2:50 PM ROTARY DRILLER 05/22/2024 3:24 AM ROTARY DRILLER Narrative [facility] - 05/25/2024 8:16 AM ROTARY DRILLER FASTING: UNKNOWN us Lou Bobby DO SEND OUTS Final Resu lt Signicat [facility] [address] [place] [address], [facility] [address] [place] [address] * ANTI HIV 1/2 (05/21/2024 2:50 PM ROTARY DRILLER) HIV AG/AB, 4TH GEN NON-REACT TANIKA NON-REACT [facility] Comment: HIV-1 antigen and HIV-1/HIV-2 antibodies were [...] purpose. For additional information please refer to http://[employer].Hibernater/faq/JHJ426 (This link is being provided for informational/ educational purposes only.) The performance of this assay has not been clinically validated in patients less than 2 years old. Blood BLOOD SPECIMEN / Unknown 05/21/2024 2:50 PM ROTARY DRILLER 05/22/2024 3:24 AM ROTARY DRILLER Narrative [facility] - 05/25/2024 8:16 AM ROTARY DRILLER FASTING: UNKNOWN us Lou Bobby DO SEND OUTS Final Resu lt [facility] [place] [facility] [address] [place] [address], [place] [phone] [facility] [address] [place] [address] from Last 3 Months or Most Recently Relevant to Health Maintenance Insurance [facility] [employer] Care Teams Top Steep Tender Relationship Specialty Start Date End Date Pcp, No . PCP - General 01/12/21
--- OUTSIDE RECORDS SUMMARY | 2024-10-27 10:22 | XMS_ITS | Encounter Summary ---
Author Organization [facility] Address [address] [place] [address]. [place] [address] Care Team Providers Care Production Line Solderer Name Role Phone Salina Doherty MD Unavailable [phone] Carrillo Ware APRN HEMOTHERAPIST Unavailable SolitarioAngelica golden NP Unavailable [phone] Nelson Arroyo PA-C Primary Care Provider Nelson Arroyo PA-C Unavailable [phone] Tank Bucio MD Unavailable [phone] Reason for Visit * Reason Onset Date Comments Refill Request 07/28/2024 Encounter Details Date Type Department Care Team (Late st Contact Info) Description 07/28/2024 MyC Refill [facility] [address] [place] [address] Nelson Arroyo PA-C [address] [place] [address] Refill Request Social History Tobacco [...] re latives? Once a week 11/24/2023 Attends [employer] Not on file 11/23 Active Member of Clubs or Organizations Not on f ile 11/24/2023 Attends Club or Organization Meetings Not on asia e 11/24/2023 Marital Status Not on file 11/24/2023 PHQ-2 Answer Date Recorded PHQ-2 Total Score (Adult) - Positive if 3 or more points; Administer PHQ-9 if positive 0 06/22/2024 [facility] - [...] in an abandoned building, in an overnight snf, or couch-surfing.) Yes 11/24/2023 Are you worried [...] PM CDT Legal Sex Female 3:44 AM CARE COORDINATOR Gender Identity Female 10/03/2020 8:33 PM CDT Sexual Orientation Straight 07/01/2018 3: 40 PM CARE COORDINATOR documented as of this encounter Miscellaneous Notes * Telephone Encounter - Nicole Hatch RN - 07/29/2024 4:03 PM CDT Called pt and relayed message below. Pt will call OB clinic for LEIDA process since she has to sign it. Pt will update us and let us know when it was sent or if anything further is needed from us. FLORIDA Wasserman, RN [facility] 07/29/2024 at 4:08 PM * Telephone Encounter - Nelson Arroyo PA-C - 07/29/2024 3:43 PM CDT Oh dear. I talked to the WEB PRESSMAN on the phone who is her OB> I thought she was making the final decision but never heard anything back. This is difficult as we don't have good communication electronically with the [facility]. I guess I left the phone conversation with the OB thinking she wouldmanage it and assumed she was changing it. Can we get an LEIDA or call to get the OB records sent over? That would be most helpful. For now I ammore than happy to fill the metoprolol so Tali does not run out of it. Sorry for the confusion. Nelson * Telephone Encounter - Nicole Hatch RN - 07/29/2024 12:52 PM CDT Called pt, promotion writer requesting clarification. Pt states she is still taking this. Pt states that OB and Nelson had a conversation a week after VVwith Nelson and the OB told her that metoprolol was okay based on their conversation. Pt is confused because Nelson would like metoprolol to be changed but OB states she can continue on metoprolol. See telephone encounter from 06/30/24 for info on this conversation. Last thing found: RN called Mackenzie and relayed provider message. She asked for clarification if patient was on metoprolol for hypertension without diagnosis of hypertension? She said she will be by her phone for the next 30 minutes if provider could call her. Routing to provider to please try to call Mackenzie back. No notes found after this. Routing to Nelson. Please clarify what medication you would like pt to take. Will attach OB phone number below if wanting to discuss further with OB. FLORIDA Wasserman, RN [facility] 07/29/2024 at 1:04 PM * Telephone Encounter - Nelson Arroyo PA-C - 07/29/2024 12:30 PM CDT Please call. I have had this sent to me at least three times in one week. She is and I have talked with her and her OB. She is going to switch this med to a diff med due to the . Please stop sending the refill. Unless somehow she is still taking it. In which case I need to knowand hear this from the patient and possible from the OB as well. Thanks! Nelson documented in this encounter Plan of Treatment Not on file documented as of this encounter Visit Diagnoses Diagnosis Elevated blood pressure reading without diagnosis of hypertension documented in this encounter Additional Health Concerns Assessment Noted Time PHQ-9 Depression Total Score: 7 10/03/19 25 9:19 AM CDT documented as of this encounter Care Teams Production Line Solderer Relationship Specialty Start Date End Date Nelson Arroyo PA-C [address] [place] [address] PCP - General Physician Field Enumerator - Medical 08/06/18 Salina Doherty MD Internal Medicine 12/01/14 Carrillo Ware APRN HEMOTHERAPIST [address] [place] [address] Nurse Practitioner Nurse Practitioner 12/16/14 Angelica Jerez NP [facility] [address] [place] [address] Nurse Practitioner Nurse Practitioner - Family 07/12/16 Nelson Arroyo PA-C [address] [place] [address] Assigned PCP 07/30/20 Tank Bucio MD [address] [address] Physician ceramic tile installation helper 12/01/23 documented as of this encounter
--- OUTSIDE RECORDS SUMMARY | 2024-10-27 10:22 | XMS_ITS | Encounter Summary ---
Author Organization [facility] Address [address] [place] [address] Care Team Providers Care Production Supervisor Trainee Name Role Phone Salina Doherty MD Unavailable [phone] Carrillo Ware APRN SHOE SPRAYER Unavailable Hillary Unger MD Primary Care P rovider [facility] Unavailable Nelson Arroyo PA-C Unavailable Hillary Unger MD Unavailable Hillary Unger MD Unavailable Hillary Unger MD Unavailable Nelson Arroyo PA-C Unavailable [phone] Nelson Arroyo PA-C Primary Care Provider Chinyere Barbour Unavailable Unavailable Nelson Arroyo PA-C Unavailable [phone] Pietro Wills MD Unavailable [phone] Tank Bucio MD Unavailable [phone] Encounter Details Date Type Department Care Team (Late st Contact Info) Description 10/01/2017 [facility] Medical Advice [facility] [address] [place] [address] Solitario Angelica Gautam, SUPPLY SPECIALIST [address] [place] [address] Social History Tobacco Use Types Packs/Day Years [...] PM CDT Legal Sex Female 3:44 AM BLAST FURNACE OPERATOR Gender Identity Female 10/03/2020 8:33 PM CDT Sexual Orientation Straight 07/01/2018 3: 40 PM BLAST FURNACE OPERATOR documented as of this encounter Plan of Treatment Not on file documented as of this encounter Visit Diagnoses Not on filedocumented in this encounter Additional Health Concerns Assessment Noted Time PHQ-9 Depression Total Score: 6 08/30/19 18 7:34 AM CDT documented as of this encounter Care Teams Production Supervisor Trainee Relationship Specialty Start Date End Date Hillary Unger MD [address] [place] [address] PCP - General Internal Medicine 08/21/15 08/05/18 Nelson Arroyo PA-C [address] [place] [address] PCP - Assigned PCP 04/12/18 05/02/18 Hillary Ungre MD [address] [place] [address] PCP - Assigned PCP 02/01/18 04/11/18 Hillary Unger MD [address] [place] [address] PCP - Assigned PCP 05/03/18 07/07/18 Nelson Arroyo PA-C [address] [place] [address] PCP - General Physician Forge Shop Supervisor - Medical 08/06/18 Salina Doherty MD Internal Medicine 12/01/14 Carrillo Ware APRN SHOE SPRAYER [address] [place] [address] Nurse Practitioner Nurse Practitioner 12/16/14 Angelica Jerez SUPPLY SPECIALIST [facility] [address] [place], [place] [address] Nurse Practitioner Nurse Practitioner - Family 07/12/16 Hillary Unger MD [address] [place] [address] Assigned PCP 05/03/18 07/18/18 Nelson Arroyo PA-C [address] [place] [address] Assigned PCP 07/05/18 07/29/20 Chinyere Barbour Personal Advocate & Liaison (PAL) 01/31/20 04/26/20 Nelson Arroyo PA-C [address] [place] [address] Assigned PCP 07/30/20 Pietro Wills MD [address] [place] [address] Assigned Heart and Vascular Provider 12/14/22 06/26/24 Tank Bucio MD [address] [place], [facility] [address] [place] [address] Physician brake tester 12/01/23 documented as of this encounter
--- OUTSIDE RECORDS SUMMARY | 2024-10-27 10:22 | XMS_ITS | Encounter Summary ---
Author Organization [facility] Address [address] [place] [address]. [place] [address] Care Team Providers Care Purchase Request Editor Name Role Phone Salina Doherty MD Unavailable [phone] Carrillo Ware APRN MANAGER MBA Unavailable SolitarioAngelica golden NP Unavailable [phone] Nelson Arroyo PA-C Unavailable [phone] Nelson Arroyo PA-C Primary Care Provider Chinyere Barbour Unavailable Unavailable Nelson Arroyo PA-C Unavailable [phone] Pietro Wills MD Unavailable Tank Bucio MD Unavailable Reason for Visit * Reason Onset Date Comments Vaginal Problem 02/26/2020 Encounter Details Date Type Department Care Team (Late st Contact Info) Description 02/26/2020 MyC Medical Advice [facility] [address] [facility], [address] [place] [address] Nelson Arroyo PA-C [address] [place] [address] Vaginal Problem Social History Tobacco [...] PM CDT Legal Sex Female 3:44 AM SWING DRIVER Gender Identity Female 10/03/2020 8:33 PM CDT Sexual Orientation Straight 07/01/2018 3: 40 PM SWING DRIVER documented as of this encounter Miscellaneous Notes * Telephone Encounter - Maude Singh RN - 02/28/2020 12:53 PM CDT FAD ? IO message sent to patient. Maude Singh RN [...] documented as of this encounter Care Teams Purchase Request Editor Relationship Specialty Start Date End Date Nelson Arroyo PA-C [address] [place] [address] PCP - General Physician Dispatcher Radioactive Waste Disposal - Medical 08/06/18 Salina Doherty MD Internal Medicine 12/01/14 Carrillo Ware APRN MANAGER MBA [address] [place] [address] Nurse Practitioner Nurse Practitioner 12/16/14 Angelica Jerez NP [facility] [address] [place] [address] Nurse Practitioner Nurse Practitioner - Family 07/12/16 Nelson Arroyo PA-C [address] [address] Assigned PCP 07/05/18 07/29/20 Chinyere Barbour Personal Advocate & Liaison (PAL) 01/31/20 04/26/20 Nelson Arroyo PA-C [address] [address] Assigned PCP 07/30/20 Pietro Wills MD [address] [place] [address] Assigned Heart and Vascular Provider 12/14/22 06/26/24 Tank Bucio MD [address], [facility] [address] [place] [address] Physician english language arts teacher 12/01/23 documented as of this encounter
--- OUTSIDE RECORDS SUMMARY | 2024-10-27 10:22 | XMS_ITS | Encounter Summary ---
Author Organization [facility] Address [address] [place] [address]. [place] [address] Care Team Providers Care Joint Sealer Name Role Phone Salina Doherty MD Unavailable [phone] Carrillo Ware APRN MARKET RESEARCH INTERN Unavailable SolitarioAngelica golden NP Unavailable [phone] Nelson Arroyo PA-C Primary Care Provider Nelson Arroyo PA-C Unavailable [phone] Pietro Wills MD Unavailable [phone] Tank Bucio MD Unavailable [phone] Reason for Visit * Reason Comments Medication Refill Encounter Details Date Type Department Care Team (Late st Contact Info) Description 09/21/[address], [address] [place] [address] Nelson Arroyo PA-C [address] [place] [address] Medication Refill Social History Tobacco [...] CDT Legal Sex Female 3:44 AM RN GYNECOLOGY Gender Identity Female 10/03/2020 8:33 PM CDT Sexual Orientation Straight 07/01/2018 3: 40 PM RN GYNECOLOGY documented as of this encounter Miscellaneous Notes * Telephone Encounter - Minda Vergara RN - 10/06/2020 9:39 AM CDT clonazePAM (KLONOPIN) 0.5 MG tablet Last Written Prescription Date: 07/13/20 Last Fill Quantity: 20, # refills: 0 Last Office Visit: 08/15/20 Future Office visit: Next 5 appointments (look out 90 days) Oct 18, 2020 5:15 PM [facility] Short with Nelson Arroyo PA-C [facility] [address] [place] [address] Routing refill request to provider for [...] 09/22/2020 11:50 AM CDT 1st attempt, sent Marquiss [employer] Powerhart message to schedule appt * Telephone Encounter [...] Total Score: 6 07/14/19 21 3:35 PM RN GYNECOLOGY documented as of this encounter Care Teams Joint Sealer Relationship Specialty Start Date End Date Nelson Arroyo PA-C [address] [place] [address] PCP - General Physician Auto Motor Mechanic - Medical 08/06/18 Salina Doherty MD Internal Medicine 12/01/14 Carrillo Ware APRN CNP [address] [place] [address] Nurse Practitioner Nurse Practitioner 12/16/14 Angelica Jerez NP [address] [address] Nurse Practitioner Nurse Practitioner - Family 07/12/16 Nelson Arroyo PA-C [address] [address] Assigned PCP 07/30/20 Pietro Wills MD [address] [address] Assigned Heart and Vascular Provider 12/14/22 06/26/24 Tank Bucio MD [address] [facility] [address] [place] [address] Physician assistant warehouse manager 12/01/23 documented as of this encounter
--- OUTSIDE RECORDS SUMMARY | 2024-10-27 10:22 | XMS_ITS | Encounter Summary ---
Author Organization [facility] Address [address] [place] [address] Care Team Providers Care Chief Revenue Officer Name Role Phone Salina Doherty MD Unavailable [phone] Carrillo Ware APRN FIXED INCOME PORTFOLIO MANAGER Unavailable [phone] SolitarioAngelica golden NP Unavailable [phone] Nelson Arroyo PA-C Primary Care Provider Nelson Arroyo PA-C Unavailable [phone] Pietro Wills MD Unavailable [phone] Tank Bucio MD Unavailable [phone] Encounter Details Date Type Department Care Team (Late st Contact Info) Description 06/30/2023 [facility] Medical Advice [address] [address] Mary Fragoso Social History Tobacco [...] in an abandoned building, in an overnight half-way, or couch-surfing.) Yes 03/31/2023 Are you worried [...] CDT Legal Sex Female 3:44 AM POT RUNNER Gender Identity Female 10/03/2020 8:33 PM CDT Sexual Orientation Straight 07/01/2018 3: 40 PM POT RUNNER documented as of this encounter Plan of Treatment Not on file documented as of this encounter Visit Diagnoses Not on filedocumented in this encounter Additional Health Concerns Assessment Noted Time PHQ-9 Depression Total Score: 8 03/31/20 23 1:09 PM POT RUNNER documented as of this encounter Care Teams Chief Revenue Officer Relationship Specialty Start Date End Date Nelson Arroyo PA-C [address] [address] PCP - General Physician Tile Inspector - Medical 08/06/18 Salina Doherty MD Internal Medicine 12/01/14 Carrillo Ware APRN FIXED INCOME PORTFOLIO MANAGER [address] [place] [address] Nurse Practitioner Nurse Practitioner 12/16/14 Angelica Jerez NP [facility] [address] [place], [place] [address] Nurse Practitioner Nurse Practitioner - Family 07/12/16 Nelson Arroyo PA-C [address] [place] [address] Assigned PCP 07/30/20 Pietro Wills MD [address] [place] 7[address] Assigned Heart and Vascular Provider 12/14/22 06/26/24 Tank Bucio MD [address], [address] [address] Physician steam cleaning machine operator 12/01/23 documented as of this encounter
--- OUTSIDE RECORDS SUMMARY | 2024-10-27 10:22 | XMS_ITS | Encounter Summary ---
Author Organization [place] Address [address] [place] [address]. [place] [address] Care Team Providers Care Casework Manager Name Role Phone Salina Doherty MD Unavailable [phone] Carrillo Ware APRN MACHINE HOSE CUTTER Unavailable SolitarioAngelica golden NP Unavailable Nelson Arroyo PA-C Primary Care Provider Nelson Arroyo PA-C Unavailable [phone] Tank Bucio MD Unavailable [phone] Reason for Visit * Reason Onset Date Comments Medication Question 06/29/2024 Metoprolol - OB Encounter Details Date Type Department Care Team (Late st Contact Info) Description 06/29/2024 MyC Medical Advice [facility] [address] [place] [address] Nelson Arroyo PA-C [address] [place] [address] Medication Question (Metoprolol - OB [...] re latives? Once a week 11/24/2023 Attends Pentecostalism Services Not on file 11/23 Active Member of Clubs or Organizations Not on f ile 11/24/2023 Attends Club or Organization Meetings Not on asia e 11/24/2023 Marital Status Not on file 11/24/2023 PHQ-2 Answer Date Recorded PHQ-2 Total Score (Adult) - Positive if 3 or more points; Administer PHQ-9 if positive 0 06/22/2024 [facility] [place] of Occupat ional Health - Occupational Stress [...] in an abandoned building, in an overnight longterm, or couch-surfing.) Yes 11/24/2023 Are you worried [...] PM CDT Legal Sex Female 3:44 AM FACILITY ATTENDANT Gender Identity Female 10/03/2020 8:33 PM CDT Sexual Orientation Straight 07/01/2018 3: 40 PM FACILITY ATTENDANT documented as of this encounter Miscellaneous Notes * Telephone Encounter - Rianna Spangler - 06/30/2024 9:30 AM CST Forwarding updated information to Provider. Patient sent OB Provider information to discuss medication metoprolol [phone] LITY ATTENDANT * Telephone Encounter - Rianna Spangler - 06/29/2024 3:51 PM CST MCM sent to patient to recheck her OB phone number. When number is sent in - forward to Nelson Arroyo as she needs to call OB provider. Kezia Spangler Customer Service Consultant LITY ATTENDANT * Telephone Encounter - Nelson Arroyo PA-C - 06/29/2024 3:34 PM FACILITY ATTENDANT I called that number and it seems to be a fax number. LITY ATTENDANT * Telephone Encounter - Rianna Spangler - 06/29/2024 3:07 PM CST Forwarding information to Provider. Patient sent OB Provider information to discuss medication. OB provider will need to be paged to contact her to discuss medication metoprolol Mackenzie Mancuso with [facility] and clinics at the [facility]. Address: [address] [place] [address] Phone: [phone] Kezia Spangler Customer Service Consultant LITY ATTENDANT * Telephone Encounter - Adrienne Frazier RN - 06/29/2024 10:56 AM FACILITY ATTENDANT See my chart, awaiting patient response with contact information for OB After received please send to Nelson Arroyo PAC to see if she would like the OB provider paged to contact her to discuss medication metoprolol Adrienne Frazier RN on 06/29/2024 at 10:59 AM LITY ATTENDANT * Telephone Encounter - Rianna Spangler - 06/29/2024 10:30 AM CST Forwarding to nurse team for further follow-up. Kezia Spangler Customer Service Consultant LITY ATTENDANT documented in this encounter Plan of Treatment Not on file documented as of this encounter Visit Diagnoses Not on filedocumented in this encounter Additional Health Concerns Assessment Noted Time PHQ-9 Depression Total Score: 7 10/03/19 25 9:19 AM CDT documented as of this encounter Care Teams Casework Manager Relationship Specialty Start Date End Date Nelson Arrooy PA-C [address] [facility] [place] [address] PCP - General Physician Licensed Professional Counselor - Medical 08/06/18 Salina Doherty MD Internal Medicine 12/01/14 Carrillo Ware APRN MACHINE HOSE CUTTER [address] [place] [address] Nurse Practitioner Nurse Practitioner 12/16/14 Angelica Jerez NP [facility] [address] [place] [address] Nurse Practitioner Nurse Practitioner - Family 07/12/16 Nelson Arroyo PA-C [address] [place] [address] Assigned PCP 07/30/20 Tank Bucio MD 303 [facility], [facility] [address] [place] [address] Physician academy education director 12/01/23 documented as of this encounter
--- OUTSIDE RECORDS SUMMARY | 2024-10-27 10:22 | XMS_ITS | Encounter Summary ---
Author Organization [place] Address [address] [place] [address] Care Team Providers Care Annealing Torch Operator Name Role Phone Salina Doherty MD Unavailable [phone] Carrillo Ware APRN RIPRAP PLACER Unavailable SolitarioAngelica golden WOODS RIDER Unavailable [phone] Nelson Arroyo PA-C Primary Care Provider Nelson Arroyo PA-C Unavailable [phone] Pietro Wills MD Unavailable [phone] Takn Bucio MD Unavailable [phone] Encounter Details Date Type Department Care Team (Late st Contact Info) Description 06/23/2024 MyC Medical Advice [address] [address] Rianna Spangler Social History Tobacco [...] re latives? Once a week 11/24/2023 Attends Anabaptism Services Not on file 11/23 Active Member of Clubs or Organizations Not on f ile 11/24/2023 Attends Club or Organization Meetings Not on asia e 11/24/2023 Marital Status Not on file 11/24/2023 PHQ-2 Answer Date Recorded PHQ-2 Total Score (Adult) - Positive if 3 or more points; Administer PHQ-9 if positive 0 06/22/2024 [facility] of Occupat ional [facility] - Occupational Stress Questionnaire Answer Date [...] PM CDT Legal Sex Female 3:44 AM ZONING TECHNICIAN Gender Identity Female 10/03/2020 8:33 PM CDT Sexual Orientation Straight 07/01/2018 3: 40 PM ZONING TECHNICIAN documented as of this encounter Plan of Treatment Not on file documented as of this encounter Visit Diagnoses Not on filedocumented in this encounter Additional Health Concerns Assessment Noted Time PHQ-9 Depression Total Score: 7 10/03/19 25 9:19 AM CDT documented as of this encounter Care Teams Annealing Torch Operator Relationship Specialty Start Date End Date Nelson Arroyo PA-C [address] [place] [address] PCP - General Physician Splicer Operator - Medical 08/06/18 Salina Doherty MD Internal Medicine 12/01/14 Carrillo Ware APRN CNP [address] [place] [id number] Nurse Practitioner Nurse Practitioner 12/16/14 Angelica Jerez NP [address] 520837 Nurse Practitioner Nurse Practitioner - Family 07/12/16 Nelson Arroyo PA-C [address] [place] [address] Assigned PCP 07/30/20 Pietro Wills MD [address] [place] [address] Assigned Heart and Vascular Provider 12/14/22 06/26/24 Tank Bucio MD [address] [facility], [facility] [address] [place] [address] Physician billing associate 12/01/23 documented as of this encounter
--- OUTSIDE RECORDS SUMMARY | 2024-10-27 10:22 | XMS_ITS | Encounter Summary ---
Author Organization [facility] Address [address] [place] [address]. [place] [address] Care Team Providers Care Director Of Physical Education Name Role Phone Salina Doherty MD Unavailable [phone] Carrillo Ware APRN CRA Unavailable SolitarioAngelica golden NP Unavailable [phone] Nelson Arroyo PA-C Unavailable [phone] Nelson Arroyo PA-C Primary Care Provider Chinyere Barbour Unavailable Unavailable Nelson Arroyo PA-C Unavailable Pietro Wills MD Unavailable [phone] Tank Bucio MD Unavailable Reason for Visit * Reason Onset Date Comments Appointment 12/27/2019 med check, cough Encounter Details Date Type Department Care Team (Late st Contact Info) Description 12/27/2019 MyC Medical Advice [facility] [address] [facility], [address] [place] [address] Nelson Arroyo PA-C [address] [place] [address] Appointment (med check, cough) Social [...] PM CDT Legal Sex Female 3:44 AM LOOM DOFFER Gender Identity Female 10/03/2020 8:33 PM CDT Sexual Orientation Straight 07/01/2018 3: 40 PM LOOM DOFFER documented as of this encounter Miscellaneous Notes * Telephone Encounter - Jahaira Ya CMA - 12/30/2019 8:11 AM CDT LM to get appt scheduled Jahaira Ya CMA * Telephone Encounter - Blanca Baker - 12/28/2019 1:53 PM CDT Left message, please help patient schedule med check with Blanca Red/ Chart Changer * Telephone Encounter - Maude Singh RN [...] of this encounter Care Teams Director Of Physical Education Relationship Specialty Start Date End Date Nelson Arroyo PA-C [address] [place] [address] PCP - General Physician Paper Slitter - Medical 08/06/18 Salina Doherty MD Internal Medicine 12/01/14 Carrillo Ware APRN CRA [address] [place] [address] Nurse Practitioner Nurse Practitioner 12/16/14 Angelica Jerez TURBINE OPERATOR [facility] [address] [address] Nurse Practitioner Nurse Practitioner - Family 07/12/16 Nelson Arroyo PA-C [address] [place] [address] Assigned PCP 07/05/18 07/29/20 Chinyere Barbour Personal Advocate & Liaison (PAL) 01/31/20 04/26/20 Nelson Arroyo PA-C [address] [place] [id number] Assigned PCP 07/30/20 Pietro Wills MD [address] [place] [address] Assigned Heart and Vascular Provider 12/14/22 06/26/24 Tank Bucio MD [address] [place], [facility] [address] [place] [address] Physician shark biologist 12/01/23 documented as of this encounter
--- OUTSIDE RECORDS SUMMARY | 2024-10-27 10:22 | XMS_ITS | Encounter Summary ---
Author Organization [place] Address [address] [place] [address]. [place] [address] Care Team Providers Care Principle Software Engineer Name Role Phone Salina Doherty MD Unavailable [phone] Carrillo Ware APRN SAFE AND VAULT SERVICE MECHANIC Unavailable SolitarioAngelica golden NP Unavailable [phone] Nelson Arroyo PA-C Unavailable Nelson Arroyo PA-C Primary Care Provider [phone] Chinyere Barbour Unavailable Unavailable Nelson Arroyo PA-C Unavailable Pietro Wills MD Unavailable Tank Bucio MD Unavailable Reason for Visit * Reason Comments Medication Refill Encounter Details Date Type Department Care Team (Late st Contact Info) Description 02/07/[address], [address] [place] [address] Concepción Gonzalez APRN SAFE AND VAULT SERVICE MECHANIC [address] [place] [address] Medication Refill Social History Tobacco [...] CDT Legal Sex Female 3:44 AM RESIDENTIAL CARPENTER Gender Identity Female 10/03/2020 8:33 PM CDT Sexual Orientation Straight 07/01/2018 3: 40 PM RESIDENTIAL CARPENTER documented as of this encounter Plan of Treatment Not on file documented as of this encounter Visit Diagnoses Diagnosis Persistent insomnia Persistent disorder of initiating or maintaining sleep documented in this encounter Additional Health Concerns Assessment Noted Time PHQ-9 Depression Total Score: 7 09/29/19 20 7:04 AM CDT documented as of this encounter Care Teams Principle Software Engineer Relationship Specialty Start Date End Date Nelson Arroyo PA-C [address] [place] [address] PCP - General Physician Welding Teacher - Medical 08/06/18 Salina Doherty MD Internal Medicine 12/01/14 Carrillo Ware APRN SAFE AND VAULT SERVICE MECHANIC [address] [place] [address] Nurse Practitioner Nurse Practitioner 12/16/14 Angelica Jerez NP [place] [address] [place] [address] Nurse Practitioner Nurse Practitioner - Family 07/12/16 Nelson Arroyo PA-C [address] [place] [address] Assigned PCP 07/05/18 07/29/20 Chinyere Barbour Personal Advocate & Liaison (PAL) 01/31/20 04/26/20 Nelson Arroyo PA-C [address] [place] [address] Assigned PCP 07/30/20 Pietro Wills MD [address] [place] [address] Assigned Heart and Vascular Provider 12/14/22 06/26/24 Tank Bucio MD [address] [facility], [facility] [address] [place] [address] Physician digital media analyst 12/01/23 documented as of this encounter
--- OUTSIDE RECORDS SUMMARY | 2024-10-27 10:22 | XMS_ITS | Encounter Summary ---
Author Organization [place] Address [address] [place] [address] Care Team Providers Care Patternmaker Plaster And Plastic Name Role Phone Salina Doherty MD Unavailable [phone] Carrillo Ware APRN SAFETY PIN ASSEMBLING MACHINE OPERATOR Unavailable Hillary Unger MD Primary Care P rovider Nelson Arroyo PA-C Primary Care Provider +[phone] Hillary Unger MD Primary Care P rovider Angelica Jerez NP Unavailable [phone] Nelson Arroyo PA-C Unavailable [phone] Hillary Unger MD Unavailable Hillary Unger MD Unavailable Hillary Unger MD Unavailable Nelson Arroyo PA-C Unavailable [phone] Nelson Arroyo PA-C Primary Care Provider +1- Chinyere Barbour Unavailable Unavailable Nelson Arroyo PA-C Unavailable [phone] Peitro Wills MD Unavailable [phone] Tank Bucio MD Unavailable [phone] Reason for Visit * Reason Onset Date Comments Refill Request 06/07/2015 Control Encounter Details Date Type Department Care Team (Late st Contact Info) Description 06/07/2015 MyC Refill [address], [address] [place] [address] Nelson Arroyo PA-C [address] [facility] [place] [address] Refill Request ( Control) 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 Sex Female 3:44 AM WOOD PRODUCTS MANUFACTURER Gender Identity Female 10/03/2020 8:33 PM CDT Sexual Orientation Straight 07/01/2018 3: 40 PM WOOD PRODUCTS MANUFACTURER documented as of this encounter Miscellaneous Notes * Telephone Encounter - Maude Singh RN - 06/07/2015 1:12 PM CST Prescription approved per [facility] Refill Protocol. Maude Singh RN PRODUCTS MANUFACTURER * Telephone Encounter - Maude Singh RN - 06/07/2015 1:11 PM CSTMessage from MyChart: Original authorizing provider: RO Choudhury would like a refill of the following medications: levonorgestrel-ethinyl estradiol (FIDEL PALOMO LESSINA) 0.1-20 MG-MCG per tablet [Nelson Arroyo PA-C] Preferred pharmacy: [facility] [address] [place] [id number] ROGELIO HERNANDEZ Comment: PRODUCTS MANUFACTURER documented in this encounter Plan of Treatment Not on file documented as of this encounter Visit Diagnoses Diagnosis Encounter for surveillance of contraceptive pills Surveillance of previously prescribed contraceptive pill documented in this encounter Care Teams Patternmaker Plaster And Plastic Relationship Specialty Start Date End Date Hillary Unger MD [address] [place] [address] PCP - General Internal Medicine 01/05/15 08/02/15 Nelson Arroyo PA-C [address] [place] [address] PCP - General Physician Warpman - Medical 08/03/15 08/20/15 Hillary Unger MD [address] [place] [address] PCP - General Internal Medicine 08/21/15 08/05/18 Nelson Arroyo PA-C [address] [place] [address] PCP - Assigned PCP 04/12/18 05/02/18 Hillary Unger MD [address] [place] [address] PCP - Assigned PCP 02/01/18 04/11/18 Hillary Unger MD [address] [place] [address] PCP - Assigned PCP 05/03/18 07/07/18 Nelson Arroyo PA-C [address] [address] [place] [address] PCP - General Physician Warpman - Medical 08/06/18 Salina Dohetry MD Internal Medicine 12/01/14 Carrillo Ware APRN SAFETY PIN ASSEMBLING MACHINE OPERATOR [address] [place] [address] Nurse Practitioner Nurse Practitioner 12/16/14 Angelica Jerez NP [facility] [address] [place] [address] Nurse Practitioner Nurse Practitioner - Family 07/12/16 Hillary Unger MD [address] [place] [place], [place] [address] Assigned PCP 05/03/18 07/18/18 Nelson Arroyo PA-C [address] [place] [address] Assigned PCP 07/05/18 07/29/20 Chinyere Barbour Personal Advocate & Liaison (PAL) 01/31/20 04/26/20 Nelson Arroyo PA-C [address] [place] [address] Assigned PCP 07/30/20 Pietro Wilsl MD [address] [place] [address] Assigned Heart and Vascular Provider 12/14/22 06/26/24 Tank Bucio MD [address], [address] [address] Physician chef's assistant 12/01/23 documented as of this encounter
--- OUTSIDE RECORDS SUMMARY | 2024-10-27 10:22 | XMS_ITS | Encounter Summary ---
Author Organization [place] Address [address] [place] [address]. [place] [address] Care Team Providers Care Clay Hoister Name Role Phone Salina Doherty MD Unavailable Carrillo Ware APRN BEHAVIOR THERAPIST Unavailable SolitarioAngelica golden NP Unavailable [phone] Nelson Arroyo PA-C Primary Care Provider Nelson Arroyo PA-C Unavailable Pietro Wills MD Unavailable [phone] Tank Bucio MD Unavailable [phone] Encounter Details Date Type Department Care Team (Late st Contact Info) Description 02/20/2023 MyC Medical Advice [facility] [address] [place] [address] Nelson Arroyo PA-C [address] [place] [address] Social History Tobacco Use Types [...] PM CDT Legal Sex Female 3:44 AM SHOULDER JOINER Gender Identity Female 10/03/2020 8:33 PM CDT Sexual Orientation Straight 07/01/2018 3: 40 PM SHOULDER JOINER documented as of this encounter Plan of Treatment Not on file documented as of this encounter Visit Diagnoses Not on filedocumented in this encounter Additional Health Concerns Assessment Noted Time PHQ-9 Depression Total Score: 6 02/14/20 23 10:10 AM CDT documented as of this encounter Care Teams Clay Hoister Relationship Specialty Start Date End Date Nelson Arroyo PA-C [address] [place] [address] PCP - General Physician Advanced Research Programs Director - Medical 08/06/18 Salina Doherty MD Internal Medicine 12/01/14 Carrillo Ware APRN BEHAVIOR THERAPIST [address] [place] [address]3915 Nurse Practitioner Nurse Practitioner 12/16/14 Angelica Jerez NP [address] [address] Nurse Practitioner Nurse Practitioner - Family 07/12/16 Nelson Arroyo PA-C [address] [address] [place] [address] Assigned PCP 07/30/20 Pietro Wills MD [address] [place] [address] Assigned Heart and Vascular Provider 12/14/22 06/26/24 Tank Bucio MD [address] [address] Physician aquatics instructor 12/01/23 documented as of this encounter
--- OUTSIDE RECORDS SUMMARY | 2024-10-27 10:22 | XMS_ITS | Encounter Summary ---
Author Organization [place] Address [address] [place] [address] Care Team Providers Care Civil Process Server Name Role Phone Salina Doherty MD Unavailable [phone] Carrillo Ware APRN TODDLER GUIDE Unavailable Hillary Unger MD Primary Care P rovider Nelson Arroyo PA-C Primary Care Provider +1- Hillary Unger MD Primary Care P rovider Angelica Jerez NP Unavailable [phone] Nelson Arroyo PA-C Unavailable [phone] Hillary Unger MD Unavailable Hillary Unger MD Unavailable Hillary Unger MD Unavailable Nelson Arroyo PA-C Unavailable + Nelson Arroyo PA-C Primary Care Provider +1- Chinyere Barbour Unavailable Unavailable Nelson Arroyo PA-C Unavailable [phone] Pietro Wills MD Unavailable [phone] Tank Bucio MD Unavailable [phone] Encounter Details Date Type Department Care Team (Late st Contact Info) Description 05/14/2015 MyC Medical Advice [address], [address] [place] [address] Nelson Arroyo PA-C [address] [place] [address] Social History Tobacco Use Types Packs/Day Years [...] PM CDT Legal Sex Female 3:44 AM BRANCH OFFICE ADMINISTRATOR Gender Identity Female 10/03/2020 8:33 PM CDT Sexual Orientation Straight 07/01/2018 3: 40 PM BRANCH OFFICE ADMINISTRATOR documented as of this encounter Plan of Treatment Not on file documented as of this encounter Visit Diagnoses Not on filedocumented in this encounter Care Teams Civil Process Server Relationship Specialty Start Date End Date Hillary Unger MD [address] [place] [address] PCP - General Internal Medicine 01/05/15 08/02/15 Nelson Arroyo PA-C [address] [place] [address] PCP - General Physician Sales Representative Rural Power - Medical 08/03/15 08/20/15 Hillary Unger MD [address] [place] [address] PCP - General Internal Medicine 08/21/15 08/05/18 Nelson Arroyo PA-C [address] [place] [address] PCP - Assigned PCP 04/12/18 05/02/18 Hillary Unger MD [address] [place], [place] [address] PCP - Assigned PCP 02/01/18 04/11/18 Hillary Unger MD [address] [place] [address] PCP - Assigned PCP 05/03/18 07/07/18 Nelson Arroyo PA-C [address] [place] [place] [address] PCP - General Physician Sales Representative Rural [employer] - Medical 08/06/18 Salina Doherty MD Internal Medicine 12/01/14 Carrillo Ware APRN TODDLER GUIDE [address] [place] [address]85375 Nurse Practitioner Nurse Practitioner 12/16/14 Angelica Jerez NP [facility] [address] [place] [address] Nurse Practitioner Nurse Practitioner - Family 07/12/16 Hillary Unger MD [address] [place] [address] Assigned PCP 05/03/18 07/18/18 Nelson Arroyo PA-C [address], [place] [address] Assigned PCP 07/05/18 07/29/20 Chinyere Barbour Personal Advocate & Liaison (PAL) 01/31/20 04/26/20 Nelson Arroyo PA-C [address] [address] [place] [address] Assigned PCP 07/30/20 Pietro Wills MD [address] [place] [address] Assigned Heart and Vascular Provider 12/14/22 06/26/24 Tank Bucio MD [address], [address] [address] Physician software engineering associate manager 12/01/23 documented as of this encounter
--- OUTSIDE RECORDS SUMMARY | 2024-10-27 10:22 | XMS_ITS | Encounter Summary ---
Author Organization [facility] Address [address] [place] [address] Care Team Providers Care Cad Application Support Specialist Name Role Phone Salina Doherty MD Unavailable [phone] Carrillo Ware APRN PROCESS DEVELOPMENT ENGINEER Unavailable Hillary Unger MD Primary Care P rovider Nelson Arroyo PA-C Primary Care Provider +1- Hillary Unger MD Primary Care P rovider Angelica Jerez NP Unavailable Nelson Arroyo PA-C Unavailable +[phone] Hillary Unger MD Unavailable Hillary Unger MD Unavailable Hillary Unger MD Unavailable Nelson Arroyo PA-C Unavailable +[phone] Nelson Arroyo PA-C Primary Care Provider +1- Chinyere Barbour Unavailable Unavailable Nelson Arroyo PA-C Unavailable [phone] Pietro Wills MD Unavailable [phone] Tank Bucio MD Unavailable + [phone] Reason for Visit * Reason Onset Date Comments Insomnia 05/06/2015 Encounter Details Date Type Department Care Team (Late st Contact Info) Description 05/06/2015 MyC Medical Advice [address], [address] [place] [address] Nelson Arroyo PA-C [address] [place] [address] Insomnia Social History Tobacco Use Types Packs/Day [...] CDT Legal Sex Female 3:44 AM INTERNAL MEDICINE PHYSICIAN Gender Identity Female 10/03/2020 8:33 PM CDT Sexual Orientation Straight 07/01/2018 3: 40 PM INTERNAL MEDICINE PHYSICIAN documented as of this encounter Plan of Treatment Not on file documented as of this encounter Visit Diagnoses Not on filedocumented in this encounter Care Teams Cad Application Support Specialist Relationship Specialty Start Date End Date Hillary Unger MD [address] [place] [address] PCP - General Internal Medicine 01/05/15 08/02/15 Nelson Arroyo PA-C [address] [place] [address] PCP - General Physician Crime Scene Examiner - Medical 08/03/15 08/20/15 Hillary Unger MD [address] [place] [address] PCP - General Internal Medicine 08/21/15 08/05/18 Nelson Arroyo PA-C [address] [place] [address] PCP - Assigned PCP 04/12/18 05/02/18 Hillary Unger MD [address] [facility] [place] [place] 498[address] PCP - Assigned PCP 02/01/18 04/11/18 Hillary Unger MD [address] [place], [place] 225227 PCP - Assigned PCP 05/03/18 07/07/18 Nelson Arroyo PA-C [address] [place] [address] PCP - General Physician Crime Scene Examiner - Medical 08/06/18 Salina Doherty MD Internal Medicine 12/01/14 Carrillo Ware APRN PROCESS DEVELOPMENT ENGINEER [address] [place] [address] [id number] Nurse Practitioner Nurse Practitioner 12/16/14 Angelica Jerez NP [facility] [address] [place], [place] 479757 Nurse Practitioner Nurse Practitioner - Family 07/12/16 Hillary Unger MD [address] [facility] [place] [address] Assigned PCP 05/03/18 07/18/18 Nelson Arroyo PA-C [address] [place] [address] Assigned PCP 07/05/18 07/29/20 Chinyere Barbour Personal Advocate & Liaison (PAL) 01/31/20 04/26/20 Nelson Arroyo PA-C [address] [place] [address] Assigned PCP 07/30/20 Pietro Wills MD [address] [place] [address] Assigned Heart and Vascular Provider 12/14/22 06/26/24 Tank Bucio MD [address] [facility], [address] [address] Physician manager ems 12/01/23 documented as of this encounter
--- OUTSIDE RECORDS SUMMARY | 2024-10-27 10:23 | XMS_ITS | Encounter Summary ---
Author Organization [place] Address [address] [place] [address] Care Team Providers Care Gynecological Assistant Name Role Phone Salina Doherty MD Unavailable [phone] Carrillo Ware APRN PRINCIPAL CONSULTING ENGINEER Unavailable Hillary Unger MD Primary Care P rovider Nelson Arroyo PA-C Primary Care Provider +1- Hillary Unger MD Primary Care P rovider Angelica Jerez NP Unavailable [phone] Nelson Arroyo PA-C Unavailable [phone] Hillary Unger MD Unavailable Hillary Unger MD Unavailable Hillary Unger MD Unavailable Nelson Arroyo PA-C Unavailable +[phone] Nelson Arroyo PA-C Primary Care Provider +1- Chinyere Barbour Unavailable Unavailable Nelson Arroyo PA-C Unavailable [phone] Pietro Wills MD Unavailable [phone] Tank Bucio MD Unavailable + [phone] Reason for Visit * Reason Onset Date Comments Refill Request 02/07/2015 Encounter Details Date Type Department Care Team (Late st Contact Info) Description 02/07/2015 MyC Refill [facility] [address] [place] [address] Hillary Unger MD [address] [place] [address] Refill Request Social History Tobacco Use Types Packs/Day Years Used Date Smoking Tobacco: Every Day Cigarettes 0.5 12.4 Started: 06/05/2012 Smokeless Tobacco: Never Quit: 06/01/2014 Comments:Started 17 y/o Alcohol Use Standard Drinks/Week Comments Yes 0 (1 standard drink = 0.6 oz pur e alcohol) Once week, 2x week Comments No Sex and Gender Information Value Date Recorded Sex Assigned at Female 10/03/2020 8:33 PM CDT Legal Sex Female 3:44 AM PHYSICIAN VICE PRESIDENT Gender Identity Female 10/03/2020 8:33 PM CDT Sexual Orientation Straight 07/01/2018 3: 40 PM PHYSICIAN VICE PRESIDENT documented as of this encounter Plan of Treatment Not on file documented as of this encounter Visit Diagnoses Not on filedocumented in this encounter Care Teams Gynecological Assistant Relationship Specialty Start Date End Date Hillary Unger MD [address] [place] [address] PCP - General Internal Medicine 01/05/15 08/02/15 Nelson Arroyo PA-C [address] [place] [address] PCP - General Physician Glassware Maker Demonstrator - Medical 08/03/15 08/20/15 Hillary Unger MD [address] [place] [address] PCP - General Internal Medicine 08/21/15 08/05/18 Nelson Arroyo PA-C [address] [place] [address] PCP - Assigned PCP 04/12/18 05/02/18 Hillary Unger MD [address] [place], [place] 176517 PCP - Assigned PCP 02/01/18 04/11/18 Hillary Unger MD [address] [place] [address] PCP - Assigned PCP 05/03/18 07/07/18 Nelson Arroyo PA-C [address] [place] [address] PCP - General Physician Glassware Maker Demonstrator - Medical 08/06/18 Salina Doherty MD Internal Medicine 12/01/14 Carrillo Ware APRN PRINCIPAL CONSULTING ENGINEER [address] [place] [address] [id number] Nurse Practitioner Nurse Practitioner 12/16/14 Angelica Jerez NP [facility] [address] [place], [place] 687[address] Nurse Practitioner Nurse Practitioner - Family 07/12/16 Hillary Unger MD [address] [facility] [place] [address] Assigned PCP 05/03/18 07/18/18 Nelson Arroyo PA-C [address] [address] Assigned PCP 07/05/18 07/29/20 Chinyere Barbour Personal Advocate & Liaison (PAL) 01/31/20 04/26/20 Nelson Arroyo PA-C [address] [place] [address] Assigned PCP 07/30/20 Pietro Wills MD [address] [place] [address] Assigned Heart and Vascular Provider 12/14/22 06/26/24 Tank Bucio MD [address] [place], [address] [address] Physician surgical nurse practitioner 12/01/23 documented as of this encounter
--- OUTSIDE RECORDS SUMMARY | 2024-10-27 10:23 | XMS_ITS | Encounter Summary ---
Author Organization [facility] Address [address] [place] [address] Care Team Providers Care Fitness Plan Coordinator Name Role Phone Salina Doherty MD Unavailable [phone] [address] Ware APRN AIRLINE RESERVATION AGENT Unavailable Hillary Unger MD Primary Care P rovider [facility] NP Unavailable [phone] Nelson Arroyo PA-C Unavailable [phone] Hillary Unger MD Unavailable Hillary Unger MD Unavailable Hillary Unger MD Unavailable Nelson Arroyo PA-C Unavailable [phone] Nelson Arroyo PA-C Primary Care Provider Chinyere Barbour Unavailable Unavailable Nelson Arroyo PA-C Unavailable [phone] Pietro Wills MD Unavailable [phone] Tank Bucio MD Unavailable [phone] Reason for Visit * Reason Onset Date Comments Refill Request 08/26/2017 Retin-A 0.05% cr eam Encounter Details Date Type Department Care Team (Late st Contact Info) Description 08/26/2017 MyC Refill [place] [address] [facility], [address] [place] [address] Nelson Arroyo PA-C [address] [place] [address] Refill Request (Retin-A 0.05% cream) Social History [...] PM CDT Legal Sex Female 3:44 AM SCRAP IRON CUTTER Gender Identity Female 10/03/2020 8:33 PM CDT Sexual Orientation Straight 07/01/2018 3: 40 PM SCRAP IRON CUTTER documented as of this encounter Miscellaneous [...] CDT Return Visit with Angelica Jerez NP [facility] [address] [place] [address] [address] [facility] [address] Sig: Spread a pea [...] RN - 08/26/2017 5:23 PM CDTMessage [facility]: Original authorizing provider: RO Choudhury would like a refill of the following medications: tretinoin (RETIN-A) 0.05 % cream [Nelson Arroyo PA-C] Preferred pharmacy: [facility] - [address] Comment: documented in this encounter Plan of Treatment Not on file documented as of this encounter Visit Diagnoses Diagnosis Acne, unspecified acne type documented in this encounter Additional Health Concerns Assessment Noted Time PHQ-9 Depression Total Score: 4 04/04/20 17 7:13 AM SCRAP IRON CUTTER documented as of this encounter Care Teams Fitness Plan Coordinator Relationship Specialty Start Date End Date Hillary Unger [place] [address] PCP - General Internal Medicine 08/21/15 08/05/18 Nelson Arroyo PA-C [address] [facility] [place] [address] PCP - Assigned PCP 04/12/18 05/02/18 Hillary Unger MD [address] [place] [address] PCP - Assigned PCP 02/01/18 04/11/18 Hillary Unger MD [address] [place] [address] PCP - Assigned PCP 05/03/18 07/07/18 Nelson Arroyo PA-C [address] [place] 0584[address] PCP - General Physician Weather Forcaster - Medical 08/06/18 Salina Doherty MD Internal Medicine 12/01/14 Carrillo Ware APRN AIRLINE RESERVATION AGENT [address] [place] [address] Nurse Practitioner Nurse Practitioner 12/16/14 Angelica Jerez NP [facility] [address] [place] [address] Nurse Practitioner Nurse Practitioner - Family 07/12/16 Hillary Unger MD [address] [place] [address] Assigned PCP 05/03/18 07/18/18 Nelson Arroyo PA-C [address] [place] [address] Assigned PCP 07/05/18 07/29/20 Chinyere Barbour Personal Advocate & Liaison (PAL) 01/31/20 04/26/20 Nelson Arroyo PA-C [address] [place] [address] Assigned PCP 07/30/20 Pietro Wills MD [address] [address] Assigned Heart and Vascular Provider 12/14/22 06/26/24 Tank Bucio MD [address] [facility], [address] [address] Physician structural layout worker 12/01/23 documented as of this encounter
--- OUTSIDE RECORDS SUMMARY | 2024-10-27 10:23 | XMS_ITS | Encounter Summary ---
Author Organization [facility] Address [address] [place] [address] Care Team Providers Care Manager Presentation Name Role Phone Slaina Doherty MD Unavailable [phone] Carrillo Ware APRN GUEST SERVICES OFFICER Unavailable [phone] Hillary Unger MD Primary Care P rovider Nelson Arroyo PA-C Primary Care Provider +1- Hillary Unger MD Primary Care P rovider Angelica Jerez NP Unavailable [phone] Nelson Arroyo PA-C Unavailable [phone] Hillary Unger MD Unavailable Hillary Unger MD Unavailable Hillary Unger MD Unavailable Nelson Arroyo PA-C Unavailable [phone] Nelson Arroyo PA-C Primary Care Provider +1- Chinyere Barbour Unavailable Unavailable Nelson Arroyo PA-C Unavailable [phone] Pietro Wills MD Unavailable [phone] Tank Bucio MD Unavailable + [phone] Reason for Visit * Reason Onset Date Comments Vaginal Problem 02/01/2015 Infection Encounter Details Date Type Department Care Team (Late st Contact Info) Description 02/01/2015 MyC Medical Advice [address], [address] [place] [address] Nelson Arroyo PA-C [address] [facility] [place] [address] Vaginal Problem (Infection) Social History Tobacco Use [...] PM CDT 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 Sex Female 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 [employer] Gender Identity Female 10/03/2020 8:33 PM CDT Sexual Orientation Straight 07/01/2018 3: 40 PM COMBAT SYSTEMS OPERATOR [employer] documented as of this encounter Plan of Treatment Not on file documented as of this encounter Visit Diagnoses Diagnosis Pelvic pain in female- Primary Unspecified symptom associated with female genital organs documented in this encounter Care Teams Manager Presentation Relationship Specialty Start Date End Date Hillary Unger MD [address] [place] [address] PCP - General Internal Medicine 01/05/15 08/02/15 Nelson Arroyo PA-C [address] [place] [address] PCP - General Physician Paint Process Engineer - Medical 08/03/15 08/20/15 Hillary Unger MD [address] [place] [address] PCP - General Internal Medicine 08/21/15 08/05/18 Nelson Arroyo PA-C [address] [place] [address] PCP - Assigned PCP 04/12/18 05/02/18 Hillary Unger MD [address] [place], [place] [address]127 PCP - Assigned PCP 02/01/18 04/11/18 Hillary Unger MD [address] [place] [address] PCP - Assigned PCP 05/03/18 07/07/18 Nelson Arroyo PA-C [address] [place] [address] PCP - General Physician Paint Process Engineer - Medical 08/06/18 Salina Doherty MD Internal Medicine 12/01/14 Carrillo Ware APRN GUEST SERVICES OFFICER [address] [place] [address] 752995 Nurse Practitioner Nurse Practitioner 12/16/14 Angelica Jerez NP [facility] [address] [place] [place], [place] 1565[address] Nurse Practitioner Nurse Practitioner - Family 07/12/16 Hillary Unger MD [address] [place], [place] 486917 Assigned PCP 05/03/18 07/18/18 Nelson Arroyo PA-C [address] [place] [address] Assigned PCP 07/05/18 07/29/20 Chinyere Barbour Personal Advocate & Liaison (PAL) 01/31/20 04/26/20 Nelson Arroyo PA-C [address] [place] [address] Assigned PCP 07/30/20 Pietro Wills MD [address] [place] [address] Assigned Heart and Vascular Provider 12/14/22 06/26/24 Tank Bucio MD [address], [address] [place] [address] Physician social science manager 12/01/23 documented as of this encounter
--- OUTSIDE RECORDS SUMMARY | 2024-10-27 10:23 | XMS_ITS | Encounter Summary ---
Author Organization [place] Address [address] [place] [address] Care Team Providers Care Wallpaper Printer Helper Name Role Phone Salina Doherty MD Unavailable [phone] Carrillo Ware APRN COIL FORMER Unavailable Hillary Unger MD Primary Care P rovider [facility] NP Unavailable Nelson Arroyo PA-C Unavailable [phone] CriHillary Juan MD Unavailable CriHillary Juan MD Unavailable CrinteaHillary Toledo MD Unavailable Nelson Arroyo PA-C Unavailable [phone] Nelson Arroyo PA-C Primary Care Provider Chinyere Barbour Unavailable Unavailable eNlson Arroyo PA-C Unavailable [phone] Pietro Wills MD Unavailable [phone] Tank Bucio MD Unavailable Encounter Details Date Type Department Care Team (Late st Contact Info) Description 02/27/2017 [facility] [address] [place] [address] Hillary Unger MD [address] [place], [place] 225227 Social History Tobacco Use Types Packs/Day Years [...] PM CDT Legal Sex Female 3:44 AM 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 ROUND 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 Gender Identity Female 10/03/2020 8:33 PM CDT Sexual Orientation Straight 07/01/2018 3: 40 PM MERRY GO ROUND ATTENDANT documented as of this encounter Plan of Treatment Not on file documented as of this encounter Visit Diagnoses Not on filedocumented in this encounter Additional Health Concerns Assessment Noted Time PHQ-9 Depression Total Score: 3 12/07/19 17 2:21 PM CDT documented as of this encounter Care Teams Wallpaper Printer Helper Relationship Specialty Start Date End Date Hillary Unger MD [address] [place] [address] PCP - General Internal Medicine 08/21/15 08/05/18 Nelosn Arroyo PA-C [address] [place] [address] PCP - Assigned PCP 04/12/18 05/02/18 Hillary Unger MD [address] [place] [address] PCP - Assigned PCP 02/01/18 04/11/18 Hillary Unger MD [address] [place] [address] PCP - Assigned PCP 05/03/18 07/07/18 Nelson Arroyo PA-C [address] [place] [address] PCP - General Physician Rn Psych - Medical 08/06/18 Salina Doherty MD Internal Medicine 12/01/14 Carrillo Ware APRN COIL FORMER [address] [place] [address] Nurse Practitioner Nurse Practitioner 12/16/14 Angelica Jerez BALE STACKER [facility] [address] [place], [place] [address] Nurse Practitioner Nurse Practitioner - Family 07/12/16 Hillary Unger MD [address] [place] [address] Assigned PCP 05/03/18 07/18/18 Nelson Arroyo PA-C [address] [place] [address] Assigned PCP 07/05/18 07/29/20 Chinyere Barbour Personal Advocate & Liaison (PAL) 01/31/20 04/26/20 Nelson Arroyo PA-C [address] [place] [address] Assigned PCP 07/30/20 Pietro Wills MD [address] [place] [address] Assigned Heart and Vascular Provider 12/14/22 06/26/24 Tank Bucio MD [address] [place] [address] [place] [address] Physician safety lamp keeper 12/01/23 documented as of this encounter
--- OUTSIDE RECORDS SUMMARY | 2024-10-27 10:23 | XMS_ITS | Encounter Summary ---
Author Organization [facility] Address [address] [place] [address] Care Team Providers Care Educational Psychologist Name Role Phone Salina Doherty MD Unavailable [phone] Carrillo Ware APRN VEGETABLE II FARMWORKER Unavailable SolitarioAngelica golden NP Unavailable [phone] Nelson Arroyo PA-C Unavailable [phone] Nelson Arroyo PA-C Primary Care Provider Chinyere Barbour Unavailable Unavailable Nelson Arroyo PA-C Unavailable [phone] Pietro Wills MD Unavailable [phone] Tank Bucio MD Unavailable [phone] Encounter Details Date Type Department Care Team (Late st Contact Info) Description 06/23/[address] [facility] [id number] [place] [address], [address] [place] [address] Ashely Younger, [facility] Social History Tobacco Use Types Packs/Day Years [...] PM CDT Legal Sex Female 3:44 AM BULKER Gender Identity Female 10/03/2020 8:33 PM CDT Sexual Orientation Straight 07/01/2018 3: 40 PM BULKER documented as of this encounter Plan of Treatment Not on file documented as of this encounter Visit Diagnoses Not on filedocumented in this encounter Additional Health Concerns Assessment Noted Time PHQ-9 Depression Total Score: 10 019 2:36 PM CDT documented as of this encounter Care Teams Educational Psychologist Relationship Specialty Start Date End Date Nelson Arroyo PA-C [address] [address] PCP - General Physician Coding Compliance Specialist - Medical 08/06/18 Salina Doherty MD Internal Medicine 12/01/14 Carrillo Ware APRN VEGETABLE II FARMWORKER [address] [place] [address] 698005 Nurse Practitioner Nurse Practitioner 12/16/14 Angelica Jerez NP [address] [address] Nurse Practitioner Nurse Practitioner - Family 07/12/16 Nelson Arroyo PA-C [address] [address] Assigned PCP 07/05/18 07/29/20 Chinyere Barbour Personal Advocate & Liaison (PAL) 01/31/20 04/26/20 Nelson Arroyo PA-C [address] [address] Assigned PCP 07/30/20 Pietro Wills MD [address] [place] [address] Assigned Heart and Vascular Provider 12/14/22 06/26/24 Tank Bucio MD [address] [facility] [address] [place] [address] Physician grain oilseed or pasture farm manager 12/01/23 documented as of this encounter
--- OUTSIDE RECORDS SUMMARY | 2024-10-27 10:23 | XMS_ITS | Encounter Summary ---
Author Organization [place] Address [address] [place] [address] Care Team Providers Care Automatic Punch Press Operator Name Role Phone Salina Doherty MD Unavailable [phone] Carrillo Ware APRN FOREMAN/PILE DRIVING AND ERECTION Unavailable Hillary Unger MD Primary Care P rovider Nelson Arroyo PA-C Primary Care Provider +1- Hillary Unger MD Primary Care P rovider Angelica Jerez NP Unavailable [phone] Nelson Arroyo PA-C Unavailable [phone] Hillary Unger MD Unavailable Hillary Unger MD Unavailable Hillary Unger MD Unavailable Nelson Arroyo PA-C Unavailable [phone] Nelson Arroyo PA-C Primary Care Provider +1- Chinyere Barbour Unavailable Unavailable Nelson Arroyo PA-C Unavailable [phone] Pietro Wills MD Unavailable [phone] Tank Bucio MD Unavailable + [phone] Reason for Visit * Reason Onset Date Comments MyChart Communication 06/21/2015 Emergency Contraceptive Encounter Details Date Type Department Care Team (Late st Contact Info) Description 06/21/2015 MyC Medical Advice [address], [address] [place] [address] Nelson Arroyo PA-C [address] [place] [address] MyChart Communication (Emergency Contracep... Social [...] Legal Sex Female 3:44 AM DIRECTOR OF PROGRAMMING Gender Identity Female 10/03/2020 8:33 PM CDT Sexual Orientation Straight 07/01/2018 3: 40 PM DIRECTOR OF PROGRAMMING documented as of this encounter Miscellaneous Notes * Telephone Encounter - Juana See RN - 06/21/2015 8:10 AM CST Hi Twyla, There is an over the counter emergency contraceptive pill called Plan B available that you can garbage pick up man without a prescription. The sooner you take [...] have any further questions. Kesha Tovar RN CTOR OF PROGRAMMING documented in this encounter Plan of Treatment Not on file documented as of this encounter Visit Diagnoses Not on filedocumented in this encounter Care Teams Automatic Punch Press Operator Relationship Specialty Start Date End Date CriHillary Juan MD [address] [place] [address] PCP - General Internal Medicine 01/05/15 08/02/15 Nelson Arroyo PA-C [address] [place] [address] PCP - General Physician Machinist Helper - Medical 08/03/15 08/20/15 Hillary Unger MD [address] [place] [address] PCP - General Internal Medicine 08/21/15 08/05/18 Nelson Arroyo PA-C [address] [address] PCP - Assigned PCP 04/12/18 05/02/18 Hillary Unger MD [address] [place] [address] PCP - Assigned PCP 02/01/18 04/11/18 Hillary Unger MD [address] [place] [address] PCP - Assigned PCP 05/03/18 07/07/18 Nelson Arroyo PA-C [address] [address] PCP - General Physician Machinist Helper - Medical 08/06/18 Salina Doherty MD Internal Medicine 12/01/14 Carrillo Ware APRN FOREMAN/PILE DRIVING AND ERECTION [address] [place] [address] Nurse Practitioner Nurse Practitioner 12/16/14 Angelica Jerez ACCESS SERVICES ASSISTANT [facility] [address] [place], [place] 757[address] Nurse Practitioner Nurse Practitioner - Family 07/12/16 Hillary Unger MD [address] [place], [place] 431777 Assigned PCP 05/03/18 07/18/18 Nelson Arroyo PA-C [address] [place] [address] Assigned PCP 07/05/18 07/29/20 Chinyere Barbour Personal Advocate & Liaison (PAL) 01/31/20 04/26/20 Nelson Arroyo PA-C [address] [place] [address] Assigned PCP 07/30/20 Pietro Wills MD [address] [place] [address] Assigned Heart and Vascular Provider 12/14/22 06/26/24 Tank Bucio MD [address] [facility], [address] [address] Physician metabolic specialist 12/01/23 documented as of this encounter
--- OUTSIDE RECORDS SUMMARY | 2024-10-27 10:23 | XMS_ITS | Encounter Summary ---
Author Organization [facility] Address [address] [place] [address] Care Team Providers Care Coat Presser Name Role Phone Salina Doherty MD Unavailable [phone] Carrillo Ware APRN MOTORCYCLE POLICE Unavailable SolitarioAngelica golden NP Unavailable [phone] Nelson Arroyo PA-C Unavailable [phone] Nelson Arroyo PA-C Primary Care Provider Chinyere Barbour Unavailable Unavailable Nelson Arroyo PA-C Unavailable [phone] Pietro Wills MD Unavailable [phone] Tank Bucio MD Unavailable [phone] Encounter Details Date Type Department Care Team (Late st Contact Info) Description 04/29/2019 MyC Medical Advice [address], [address] [place] [address] Mariella Tamayo Social History Tobacco [...] PM CDT Legal Sex Female 3:44 AM LIAISON PLANNER Gender Identity Female 10/03/2020 8:33 PM CDT Sexual Orientation Straight 07/01/2018 3: 40 PM LIAISON PLANNER documented as of this encounter Plan of Treatment Not on file documented as of this encounter Visit Diagnoses Not on filedocumented in this encounter Additional Health Concerns Assessment Noted Time PHQ-9 Depression Total Score: 10 019 2:36 PM CDT documented as of this encounter Care Teams Coat Presser Relationship Specialty Start Date End Date Nelson Arroyo PA-C [address] [address] PCP - General Physician Cargo Station Worker - Medical 08/06/18 Salina Doherty MD Internal Medicine 12/01/14 Carrillo Ware APRN MOTORCYCLE POLICE [address] [place] [address] Nurse Practitioner Nurse Practitioner 12/16/14 Angelica Jerez NP [address] [address] Nurse Practitioner Nurse Practitioner - Family 07/12/16 Nelson Arroyo PA-C [address] [address] Assigned PCP 07/05/18 07/29/20 Chinyere Barbour Personal Advocate & Liaison (PAL) 01/31/20 04/26/20 Nelson Arroyo PA-C [address] [address] Assigned PCP 07/30/20 Pietro Wills MD [address] [place] [address] Assigned Heart and Vascular Provider 12/14/22 06/26/24 Tank Bucio MD [address] [facility] [address] [place] [address] Physician radiation control health physicist 12/01/23 documented as of this encounter
--- OUTSIDE RECORDS SUMMARY | 2024-10-27 10:23 | XMS_ITS | Encounter Summary ---
Author Organization [facility] Address [address] [place] [address] Care Team Providers Care Wheelchair Van Operator First Responder Name Role Phone Salina Doherty MD Unavailable [phone] Carrillo Ware APRN NURSING ASSOCIATE Unavailable Hillary Unger MD Primary Care P rovider Nelson Arroyo PA-C Primary Care Provider +[phone] Hillary Unger MD Primary Care P rovider Angelica Jerez NP Unavailable [phone] Nelson Arroyo PA-C Unavailable [phone] Hillary Unger MD Unavailable Hillary Unger MD Unavailable Hillary Unger MD Unavailable Nelson Arroyo PA-C Unavailable [phone] Nelson Arroyo PA-C Primary Care Provider +[phone]- Chinyere Barbour Unavailable Unavailable Nelson Arroyo PA-C Unavailable [phone] Pietro Wills MD Unavailable [phone] Tank Bucio MD Unavailable [phone] Reason for Visit * Reason Onset Date Comments MyChart Communication 06/22/2015 Emergency Contraceptive Pill Questions Encounter Details Date Type Department Care Team (Late st Contact Info) Description 06/22/2015 MyC Medical Advice [address], [address] [place] [phone] Nelson Arroyo PA-C [address] [place] [address] MyChart Communication (Emergency Contracep... Social History Tobacco [...] PM CDT Legal Sex Female 3:44 AM PLANNING COORDINATOR Gender Identity Female 10/03/2020 8:33 PM CDT Sexual Orientation Straight 07/01/2018 3: 40 PM PLANNING COORDINATOR documented as of this encounter Miscellaneous Notes * Telephone Encounter - Juana See RN - 06/22/2015 1:07 PM CST Nelson, will you please advise? I had sent the pt information yesterday via [employer] regarding thesesame questions and emergency contraceptive information and it was read. I think she wants your advice. Kesha See, RN, BSN NING COORDINATOR documented in this encounter Plan of Treatment Not on file documented as of this encounter Visit Diagnoses Not on filedocumented in this encounter Care Teams Wheelchair Van Operator First Responder Relationship Specialty Start Date End Date Hillary Unger MD [address] [place] [address] PCP - General Internal Medicine 01/05/15 08/02/15 Nelson Arroyo PA-C [address] [place] [address] PCP - General Physician Tax Associate - Medical 08/03/15 08/20/15 Hillary Unger MD [address] [place] [address] PCP - General Internal Medicine 08/21/15 08/05/18 Nelson Arroyo [place] [address] [place] [address] PCP - Assigned PCP 04/12/18 05/02/18 Hillary Unger MD [address] [place] [address] PCP - Assigned PCP 02/01/18 04/11/18 Hillary Unger MD [address] [place] [address] PCP - Assigned PCP 05/03/18 07/07/18 Nelson Arroyo PA-[place] [address] [place] [address] PCP - General Physician Tax Associate - Medical 08/06/18 Salina Doherty MD Internal Medicine 12/01/14 Carrillo Ware APRN NURSING ASSOCIATE [address] [place] [address] Nurse Practitioner Nurse Practitioner 12/16/14 Angelica Jerez NP [facility] [address] [place] [address] Nurse Practitioner Nurse Practitioner - Family 07/12/16 Hillary Unger MD [address] [place] [address] Assigned PCP 05/03/18 07/18/18 Nelson Arroyo [place] [address] [place] [address] Assigned PCP 07/05/18 07/29/20 Chinyere Barbour Personal Advocate & Liaison (PAL) 01/31/20 04/26/20 Nelson Arroyo PA-[place] [address] [place] [address] Assigned PCP 07/30/20 Pietro Wills MD [address] [place] [address] Assigned Heart and Vascular Provider 12/14/22 06/26/24 Tank Bucio MD [address] [place], [facility] [address] [place] [address] Physician spragger 12/01/23 documented as of this encounter
--- OUTSIDE RECORDS SUMMARY | 2024-10-27 10:23 | XMS_ITS | Encounter Summary ---
Author Organization [facility] Address [address] [place] [address] Care Team Providers Care Spray Gun Operator Name Role Phone Salina Doherty MD Unavailable [phone] Carrillo Ware APRN TORQUE TESTER Unavailable Hillary Unger MD Primary Care P rovider [facility] Unavailable [phone] Nelson Arroyo PA-C Unavailable Hillary Unger MD Unavailable Hillary Unger MD Unavailable Hillary Unger MD Unavailable Nelson Arroyo PA-C Unavailable [phone] Nelson Arroyo PA-C Primary Care Provider Chinyere Barbour Unavailable Unavailable Nelson Arroyo PA-C Unavailable [phone] Pietro Wills MD Unavailable [phone] Tank Bucio MD Unavailable [phone] Reason for Visit * Reason Onset Date Comments Refill Request 10/25/2015 Seroquel 25mg Encounter Details Date Type Department Care Team (Late st Contact Info) Description 10/25/2015 MyC Refill [facility] [address], [address] [place] [phone] Nelson Arroyo PA-C [address] [place], [place] [id number] Refill Request (Seroquel 25mg) Social History Tobacco [...] CDT Legal Sex Female 3:44 AM GAME ENGINEER Gender Identity Female 10/03/2020 8:33 PM CDT Sexual Orientation Straight 07/01/2018 3: 40 PM GAME ENGINEER documented as of this encounter Miscellaneous Notes * Telephone Encounter - Maude Singh RN - 10/25/2015 4:20 PM CDT Seroquel 25mg Last Written Prescription Date: 09/26/2015 Last Fill Quantity: 60, # refills: 2 Last Office Visit with [facility] or [facility] prescribing provider: 09/18/2015 [facility] 70 08/03/2015 [...] RN - 10/25/2015 4:19 PM [facility] Original authorizing provider: RO Choudhury would like a refill of the following medications: QUEtiapine (SEROQUEL) 25 MG tablet [Nelson Arroyo PA-C] Preferred pharmacy: [address] Comment: Medication renewals requested in this [...] documented as of this encounter Care Teams Spray Gun Operator Relationship Specialty Start Date End Date Hillary Unger MD [address] [place] [address] PCP - General Internal Medicine 08/21/15 08/05/18 Nelson Arroyo PA-C [address] [place] [address] PCP - Assigned PCP 04/12/18 05/02/18 Hillary Unger MD [address] [place] [address] PCP - Assigned PCP 02/01/18 04/11/18 Hillary Unger MD [address] [place] [address] PCP - Assigned PCP 05/03/18 07/07/18 Nelson Arroyo PA-C [address] [place] [address] PCP - General Physician Vb Net Developer - Medical 08/06/18 Salina Doherty MD Internal Medicine 12/01/14 Carrillo Ware APRN TORQUE TESTER [address] [place] [address] Nurse Practitioner Nurse Practitioner 12/16/[address] [facility] [address] [place], [place] 0[address] Nurse Practitioner Nurse Practitioner - Family 07/12/16 Hillary Unger MD [address] [place] [address] Assigned PCP 05/03/18 07/18/18 Nelson Arroyo PA-C [address] [address] [place] [place] [address] Assigned PCP 07/05/18 07/29/20 Chinyere Barbour Personal Advocate & Liaison (PAL) 01/31/20 04/26/20 Nelson Arroyo PA-C [address] [place] [address] Assigned PCP 07/30/20 Pietro Wills MD [address] [place] [address] Assigned Heart and Vascular Provider 12/14/22 06/26/24 Tank Bucio MD [address], [address] [address] Physician senior infrastructure engineer 12/01/23 documented as of this encounter
--- OUTSIDE RECORDS SUMMARY | 2024-10-27 10:23 | XMS_ITS | Encounter Summary ---
Author Organization [facility] Address [address] [place] [address]. [place] [address] Care Team Providers Care Senior Corporate Accountant Name Role Phone Salina Doherty MD Unavailable [phone] Carrillo Ware APRN CRUTCHER HELPER Unavailable SolitarioAngelica golden NP Unavailable [phone] Nelson Arroyo PA-C Unavailable Nelson Arroyo PA-C Primary Care Provider Chinyere Barbour Unavailable Unavailable Nelson Arroyo PA-C Unavailable Pietro Wills MD Unavailable Tank Bucio MD Unavailable Reason for Visit * Reason Onset Date Comments Refill Request 06/21/2019 Seroquel Encounter Details Date Type Department Care Team (Late st Contact Info) Description 06/21/2019 MyC Refill [facility] [address] [facility], [address] [place] [address] [place] [address] [place] [address] Refill Request (Seroquel) Social History [...] PM CDT Legal Sex Female 3:44 AM ABALONE PROCESSOR Gender Identity Female 10/03/2020 8:33 PM CDT Sexual Orientation Straight 07/01/2018 3: 40 PM ABALONE PROCESSOR documented as of this encounter Miscellaneous Notes * Telephone Encounter - Maude Singh RN - 06/23/2019 11:33 AM CST Already refilled. Maude Singh RN ONE PROCESSOR documented in this encounter Plan of Treatment Not on file documented as of this encounter Visit Diagnoses Diagnosis Generalized anxiety disorder Major depressive disorder, recurrent episode, moderate (H) Major depressive disorder, recurrent episode, moderate documented in this encounter Additional Health Concerns Assessment Noted Time PHQ-9 Depression Total Score: 10 019 2:36 PM CDT documented as of this encounter Care Teams Senior Corporate Accountant Relationship Specialty Start Date End Date Nelson Arroyo PA-C [address] [place] [address] PCP - General Physician Paper And Pulp Mill Worker - Medical 08/06/18 Salina Doherty MD Internal Medicine 12/01/14 Carrillo Ware APRN CRUTCHER HELPER [address] [place] [address]27[address] Nurse Practitioner Nurse Practitioner 12/16/14 Angelica Jerez NP [address] [address] Nurse Practitioner Nurse Practitioner - Family 07/12/16 Nelson Arroyo PA-C [address] [address] Assigned PCP 07/05/18 07/29/20 Chinyere Barbour Personal Advocate & Liaison (PAL) 01/31/20 04/26/20 Nelson Arroyo PA-C [address] [address] Assigned PCP 07/30/20 Pietro Wills MD [address] [place] [address] Assigned Heart and Vascular Provider 12/14/22 06/26/24 Tank Bucio MD [address], [address] [address] Physician senior care manager 12/01/23 documented as of this encounter
--- OUTSIDE RECORDS SUMMARY | 2024-10-27 10:23 | XMS_ITS | Encounter Summary ---
Author Organization [facility] Address [address] [place] [address] Care Team Providers Care Children'S Choir Director Name Role Phone Salina Doherty MD Unavailable [phone] Carrillo Ware APRN GENERAL EXPEDITOR Unavailable Hillary Unger MD Primary Care P rovider [facility] NP Unavailable [phone] Nelson Arroyo PA-C Unavailable Hillary Unger MD Unavailable Hillary Unger MD Unavailable Hillary Unger MD Unavailable Nelson Arroyo PA-C Unavailable [phone] Nelson Arroyo PA-C Primary Care Provider Chinyere Barbour Unavailable Unavailable Nelson Arroyo PA-C Unavailable [phone] Pietro Wills MD Unavailable [phone] Tank Bucio MD Unavailable [phone] Reason for Visit * Reason Onset Date Comments Refill Request 03/21/2017 Encounter Details Date Type Department Care Team (Late st Contact Info) Description 03/21/[address] [facility] [address] [place] [address] Angelica Jerez, TEMPERING MACHINE OPERATOR [address] [place], [place] [phone] Refill Request Social History Tobacco Use Types [...] PM CDT Legal Sex Female 3:44 AM BACTERIOLOGY RESEARCH ASSISTANT Gender Identity Female 10/03/2020 8:33 PM CDT Sexual Orientation Straight 07/01/2018 3: 40 PM BACTERIOLOGY RESEARCH ASSISTANT documented as of this encounter Plan of Treatment Not on file documented as of this encounter Visit Diagnoses Diagnosis SHANTELL (generalized anxiety disorder) Generalized anxiety disorder Persistent insomnia Persistent disorder of initiating or maintaining sleep documented in this encounter Additional Health Concerns Assessment Noted Time PHQ-9 Depression Total Score: 3 12/07/19 17 2:21 PM CDT documented as of this encounter Care Teams Children'S Choir Director Relationship Specialty Start Date End Date Hillary Unger MD [address] [place] [address] PCP - General Internal Medicine 08/21/15 08/05/18 Nelson Arroyo PA-C [address] [place] [address] PCP - Assigned PCP 04/12/18 05/02/18 Hillary Unger MD [address] [place] [address] PCP - Assigned PCP 02/01/18 04/11/18 Hillary Unger MD [address] [place] [address] PCP - Assigned PCP 05/03/18 07/07/18 Nelson Arroyo PA-C [address], [place] [address] PCP - General Physician Cattle Examiner - Medical 08/06/18 Salina Doherty MD Internal Medicine 12/01/14 Carrillo Ware APRN GENERAL EXPEDITOR [address] [place] [address] 572735 Nurse Practitioner Nurse Practitioner 12/16/14 Angelica Jerez NP [facility] [address] [place] [address] Nurse Practitioner Nurse Practitioner - Family 07/12/16 Hillary Unger MD [address] [place] [address] Assigned PCP 05/03/18 07/18/18 Nelson Arroyo PA-C [address] [address] Assigned PCP 07/05/18 07/29/20 Chinyere Barbour Personal Advocate & Liaison (PAL) 01/31/20 04/26/20 Nelson Arroyo PA-C [address] [address] Assigned PCP 07/30/20 Pietro Wills MD [address] [place] [address] Assigned Heart and Vascular Provider 12/14/22 06/26/24 Tank Bucio MD [address] [place], [facility] [address] [place] [address] Physician canvassing manager 12/01/23 documented as of this encounter
--- OUTSIDE RECORDS SUMMARY | 2024-10-27 10:23 | XMS_ITS | Encounter Summary ---
Author Organization [place] Address [address] [place] [address] Care Team Providers Care Occupational Therapy Asst Name Role Phone Salina Doherty MD Unavailable [phone] Carrillo Ware APRN UNIT TENDER Unavailable Hillary Unger MD Primary Care P rovider [facility] Unavailable [phone] Nelson Arroyo PA-C Unavailable [phone] Hillary Unger MD Unavailable Hillary Unger MD Unavailable Hillary Unger MD Unavailable Nelson Arroyo PA-C Unavailable [phone] Nelson Arroyo PA-C Primary Care Provider Chinyere Barbour Unavailable Unavailable Nelson Arroyo PA-C Unavailable [phone] Pietro Wills MD Unavailable [phone] Tank Bucio MD Unavailable [phone] Reason for Visit * Reason Onset Date Comments Refill Request 08/26/2017 Encounter Details Date Type Department Care Team (Late st Contact Info) Description 08/26/[address], [address] [place] [address] Nelson Arroyo PA-C [address] [place] [address] Refill Request Social History Tobacco Use Types [...] CDT Legal Sex Female 3:44 AM MARINE EQUIPMENT PRESERVATION INSPECTOR Gender Identity Female 10/03/2020 8:33 PM CDT Sexual Orientation Straight 07/01/2018 3: 40 PM MARINE EQUIPMENT PRESERVATION INSPECTOR documented as of this encounter Plan of Treatment Not on file documented as of this encounter Visit Diagnoses Diagnosis Acne, unspecified acne type documented in this encounter Additional Health Concerns Assessment Noted Time PHQ-9 Depression Total Score: 4 04/04/20 17 7:13 AM MARINE EQUIPMENT PRESERVATION INSPECTOR documented as of this encounter Care Teams Occupational Therapy Asst Relationship Specialty Start Date End Date Hillary Unger MD [address] [place] [address] PCP - General Internal Medicine 08/21/15 08/05/18 Nelson Arroyo PA-C [address] [place] [address] PCP - Assigned PCP 04/12/18 05/02/18 Hillary Unger MD [address] [place] [address] PCP - Assigned PCP 02/01/18 04/11/18 Hillary Unger MD [address] [place] [address] PCP - Assigned PCP 05/03/18 07/07/18 Nelson Arroyo PA-C [address] [place] [place] [address] PCP - General Physician Per Diem Physical Therapist - Medical 08/06/18 Salina Doherty MD Internal Medicine 12/01/14 Carrillo Ware APRN UNIT TENDER [address] [place] [address] Nurse Practitioner Nurse Practitioner 12/16/14 Angelica Jerez NP [facility] [address] [place] [address] Nurse Practitioner Nurse Practitioner - Family 07/12/16 Hillary Unger MD [address] [place] [address] Assigned PCP 05/03/18 07/18/18 Nelson Arroyo PA-C [address] [place] [address] Assigned PCP 07/05/18 07/29/20 Chinyere Barbour Personal Advocate & Liaison (PAL) 01/31/20 04/26/20 Nelson Arroyo PA-C [address] [place] [address] Assigned PCP 07/30/20 Pietro Wills MD [address] [place] [address] Assigned Heart and Vascular Provider 12/14/22 06/26/24 Tank Bucio MD [address] [facility] [address] [place] [address] Physician nicu rn 12/01/23 documented as of this encounter
--- OUTSIDE RECORDS SUMMARY | 2024-10-27 10:23 | XMS_ITS | Encounter Summary ---
Author Organization [facility] Address [address] [place] [address]. [place] [address] Care Team Providers Care Band Sewer Name Role Phone Salina Doherty MD Unavailable [phone] Carrillo Ware APRN MEDICAL GENETICIST Unavailable SolitarioAngelica golden NP Unavailable [phone] Nelson Arroyo PA-C Primary Care Provider Nelson Arroyo PA-C Unavailable Pietro Wills MD Unavailable [phone] Tank Bucio MD Unavailable Reason for Visit * Reason Comments Medication Refill Encounter Details Date Type Department Care Team (Late st Contact Info) Description 11/08/2022 Refill [facility] [address] [place] [address] Nelson Arroyo PA-C [address] [place] [address] Medication Refill Social History Tobacco [...] PM CDT Legal Sex Female 3:44 AM GENOMICS SCIENTIST Gender Identity Female 10/03/2020 8:33 PM CDT Sexual Orientation Straight 07/01/2018 3: 40 PM GENOMICS SCIENTIST documented as of this encounter Miscellaneous Notes [...] FMG refill protocol Rae Hernandez RN, BSN [facility] documented in this encounter Plan of Treatment Not on file documented as of this encounter Visit Diagnoses Diagnosis Muscle spasm Spasm of muscle documented in this encounter Additional Health Concerns Assessment Noted Time PHQ-9 Depression Total Score: 6 08/16/19 23 12:42 PM CDT documented as of this encounter Care Teams Band Sewer Relationship Specialty Start Date End Date Nelson Arroyo PA-C [address] [place] [address] PCP - General Physician Smelter Liner - Medical 08/06/18 Salina Doherty MD Internal Medicine 12/01/14 Carrillo Ware APRN MEDICAL GENETICIST NPI: [id number] [place] [address] Nurse Practitioner Nurse Practitioner 12/16/14 Angelica Jerez NP [facility] [address] [place] [address] Nurse Practitioner Nurse Practitioner - Family 07/12/16 Nelson Arroyo PA-C [address] [place] [address] Assigned PCP 07/30/20 Pietro Wills MD [address] [place] [address] Assigned Heart and Vascular Provider 12/14/22 06/26/24 Tank Bucio MD [address] [facility] [address] [place] [address] Physician water mangle tender 12/01/23 documented as of this encounter
--- OUTSIDE RECORDS SUMMARY | 2024-10-27 10:23 | XMS_ITS | Encounter Summary ---
Author Organization [facility] Address [address] [place] [address] Care Team Providers Care Biometrics Analyst Name Role Phone Salina Doherty MD Unavailable [phone] Carrillo Ware APRN SAFE AND VAULT INSTALLER Unavailable Hillary Unger MD Primary Care P rovider [facility] NP Unavailable [phone] Nelson Arroyo PA-C Unavailable [phone] Hillary Unger MD Unavailable Hillary Unger MD Unavailable Hillary Unger MD Unavailable Nelson Arroyo PA-C Unavailable [phone] Nelson Arroyo PA-C Primary Care Provider Chinyere Barbour Unavailable Unavailable Nelson Arroyo PA-C Unavailable [phone] Pietro Wills MD Unavailable [phone] Tank Bucio MD Unavailable [phone] Reason for Visit * Reason Onset Date Comments Refill Request 03/02/2017 Encounter Details Date Type Department Care Team (Late st Contact Info) Description 03/02/2017 [facility] [address] [place] [address] Angelica Jerez DISASSEMBLER PRODUCT [address] [place] [address] Refill Request Social History Tobacco Use Types [...] PM CDT Legal Sex Female 3:44 AM CANTEEN ATTENDANT Gender Identity Female 10/03/2020 8:33 PM CDT Sexual Orientation Straight 07/01/2018 3: 40 PM CANTEEN ATTENDANT documented as of this encounter Miscellaneous [...] documented as of this encounter Care Teams Biometrics Analyst Relationship Specialty Start Date End Date Hillary Unger MD [address] [place] [address] PCP - General Internal Medicine 08/21/15 08/05/18 Nelson Arroyo PA-C [address] [place] [address] PCP - Assigned PCP 04/12/18 05/02/18 Hillary Unger MD [address] [place], [place] 9[address] PCP - Assigned PCP 02/01/18 04/11/18 Hillary Unger MD [address] [place] [address] PCP - Assigned PCP 05/03/18 07/07/18 Nelson Arroyo PA-C [address] [place] [address] PCP - General Physician Registered Vascular Technologist (Rvt) - Medical 08/06/18 Salina Doherty MD Internal Medicine 12/01/14 Carrillo Ware APRN SAFE AND VAULT INSTALLER [address] [place] [address]37[address] Nurse Practitioner Nurse Practitioner 12/16/14 Angelica Jerez NP [facility] [address] [place], [place] [address] Nurse Practitioner Nurse Practitioner - Family 07/12/16 Hillary Unger MD [address] [place] [address] Assigned PCP 05/03/18 07/18/18 Nelson Arroyo PA-C [address] [place] [address] Assigned PCP 07/05/18 07/29/20 Chinyere Barbour Personal Advocate & Liaison (PAL) 01/31/20 04/26/20 Nelson Arroyo PA-C [address] [place] [address] Assigned PCP 07/30/20 Pietro Wills MD [address] [place] [address] Assigned Heart and Vascular Provider 12/14/22 06/26/24 Tank Bucio MD [address] [facility], [address] [address] Physician writing center director 12/01/23 documented as of this encounter
--- OUTSIDE RECORDS SUMMARY | 2024-10-27 10:23 | XMS_ITS | Encounter Summary ---
Author Organization [place] Address [address] [place] [address] Care Team Providers Care Design Engineer Agricultural Equipment Name Role Phone Salina Doherty MD Unavailable Carrillo Ware APRN CLEAN UP HELPER BANQUET Unavailable SolitarioAngelica golden NP Unavailable [phone] Nelson Arroyo PA-C Primary Care Provider Nelson Arroyo PA-C Unavailable [phone] Pietro Wills MD Unavailable Tank Bucio MD Unavailable [phone] Encounter Details Date Type Department Care Team (Late st Contact Info) Description 10/30/2022 MyC Medical Advice [address] [address] Amanda Unger Social History Tobacco [...] PM CDT Legal Sex Female 3:44 AM PROFESSOR SCULPTURE Gender Identity Female 10/03/2020 8:33 PM CDT Sexual Orientation Straight 07/01/2018 3: 40 PM PROFESSOR SCULPTURE documented as of this encounter Plan of Treatment Not on file documented as of this encounter Visit Diagnoses Not on filedocumented in this encounter Additional Health Concerns Assessment Noted Time PHQ-9 Depression Total Score: 6 08/16/19 23 12:42 PM CDT documented as of this encounter Care Teams Design Engineer Agricultural Equipment Relationship Specialty Start Date End Date Nelson Arroyo PA-C [address] [place] [address] PCP - General Physician Aml Analyst - Medical 08/06/18 Salina Doherty MD Internal Medicine 12/01/14 Carrillo Ware APRN CLEAN UP HELPER BANQUET [address] [place] [address] 755625 Nurse Practitioner Nurse Practitioner 12/16/14 Angelica Jerez NP [facility] [address] [place], [place] [id number] Nurse Practitioner Nurse Practitioner - Family 07/12/16 Nelson Arroyo PA-C [address] [place] [address] Assigned PCP 07/30/20 Pietro Wills MD [address] [place] [address]99385 Assigned Heart and Vascular Provider 12/14/22 06/26/24 Tank Bucio MD [address] [address] Physician emergency department nurse 12/01/23 documented as of this encounter
--- OUTSIDE RECORDS SUMMARY | 2024-10-27 10:23 | XMS_ITS | Encounter Summary ---
Author Organization [place] Address [address] [place] [address] Care Team Providers Care Bridge Design Engineer Name Role Phone Salina Doherty MD Unavailable [phone] Carrillo Ware APRN SIFTING OPERATOR Unavailable [phone] Hillary Unger MD Primary Care P rovider [facility] NP Unavailable [phone] Nelson Arroyo PA-C Unavailable [phone] Hillary Unger MD Unavailable Hillary Unger MD Unavailable Hillary Unger MD Unavailable Nelson Arroyo PA-C Unavailable [phone] Nelson Arroyo PA-C Primary Care Provider [phone] Chinyere Barbour Unavailable Unavailable Nelson Arroyo PA-C Unavailable [phone] Pietro Wills MD Unavailable [phone] Tank Bucio MD Unavailable + [phone] Reason for Referral * Nutrition - Closed Specialty Diagnoses / Procedures Referred By Contandrew t Referred To Contact Diagnoses Overweight Nelson Arroyo PA-C Phone: tel: fax: Referral ID Status Reason Start Date Expiration Date Visits Re quested Visits Authorized [id number] Closed 08/24/2015 08/23/2016 1 1 Question Answer Nutritional instruct Weight Loss - Overweight/Obesity Comments Your provider has referred you to: [place] [facility] [email or web address]/ Please be aware that coverage of these [...] Contact Info) Description 08/23/2015 MyC Medical Advice [address], [address] [place] [address] Nelson Arroyo PA-C [address] [place] [address] Nutrition Counseling (Appetite) Social History Tobacco Use [...] PM CDT Legal Sex Female 3:44 AM AUTOMOBILE ENGINE ASSEMBLER Gender Identity Female 10/03/2020 8:33 PM CDT Sexual Orientation Straight 07/01/2018 3: 40 PM AUTOMOBILE ENGINE ASSEMBLER documented as of this encounter Plan of Treatment Scheduled Referrals Name Type Priority Associated Diagnoses Orde r Schedule NUTRITION REFERRAL Referral Routine Overweight Ordered: 08/24/2015 documented as of this encounter Visit Diagnoses Diagnosis Overweight- Primary documented in this encounter Additional Health Concerns Assessment Noted Time PHQ-9 Depression Total Score: 6 06/28/19 16 8:10 AM AUTOMOBILE ENGINE ASSEMBLER documented as of this encounter Care Teams Bridge Design Engineer Relationship Specialty Start Date End Date Hillary Unger MD [address] [place] [address] PCP - General Internal Medicine 08/21/15 08/05/18 Nelson Arroyo PA-C [address] [place] [address] PCP - Assigned PCP 04/12/18 05/02/18 Hillary Unger MD [address] [place] [address] PCP - Assigned PCP 02/01/18 04/11/18 Hillary Unger MD [address] [facility] [address] PCP - Assigned PCP 05/03/18 07/07/18 Nelson Arroyo PA-C [address] [place] [address] PCP - General Physician Truck Unloader - Medical 08/06/18 Salina Doherty MD Internal Medicine 12/01/14 Carrillo Ware APRN CNP [address] [place] [address] Nurse Practitioner Nurse Practitioner 12/16/14 Angelica Jerez SEDIMENT REMEDIATION CONSULTANT [facility] [address] [place] [address] Nurse Practitioner Nurse Practitioner - Family 07/12/16 Hillary Unger MD [address] [place] [address] Assigned PCP 05/03/18 07/18/18 Nelson Arroyo PA-C [address] [place] [address] Assigned PCP 07/05/18 07/29/20 Chinyere Barbour Personal Advocate & Liaison (PAL) 01/31/20 04/26/20 Nelson Arroyo PA-C [address] [place] [address] Assigned PCP 07/30/20 Pietro Wills MD [address] [place] [address] Assigned Heart and Vascular Provider 12/14/22 06/26/24 Tank Bucio MD [address], [facility] [address] [place] [address] Physician surgical resident 12/01/23 documented as of this encounter
--- OUTSIDE RECORDS SUMMARY | 2024-10-27 10:23 | XMS_ITS | Encounter Summary ---
Author Organization [place] Address [address] [place] [address] Care Team Providers Care Job Cost Estimator Name Role Phone Salina Doherty MD Unavailable [phone] Carrillo Ware APRN SALES OFFICE ADMINISTRATOR Unavailable [phone] Hillary Unger MD Primary Care P rovider [facility] NP Unavailable [phone] Nelson Arroyo PA-C Unavailable [phone] Hillary Unger MD Unavailable Hillary Unger MD Unavailable Hillary Unger MD Unavailable Nelson Arroyo PA-C Unavailable [phone] Nelson Arroyo PA-C Primary Care Provider [phone] Chinyere Barbour Unavailable Unavailable Nelson Arroyo PA-C Unavailable [phone] Pietro Wills MD Unavailable [phone] Tank Bucio MD Unavailable [phone] Encounter Details Date Type Department Care Team (Late st Contact Info) Description 12/12/2015 [facility] Medical Advice [address], [address] [place] [address] Zully Vidal APRN SALES OFFICE ADMINISTRATOR [address] [place] [address] Social History Tobacco Use Types Packs/Day Years [...] CDT Legal Sex Female 3:44 AM CHARGE AIDE Gender Identity Female 10/03/2020 8:33 PM CDT Sexual Orientation Straight 07/01/2018 3: 40 PM CHARGE AIDE documented as of this encounter Plan of Treatment Not on file documented as of this encounter Visit Diagnoses Not on filedocumented in this encounter Additional Health Concerns Assessment Noted Time PHQ-9 Depression Total Score: 5 09/19/19 16 7:14 AM CDT documented as of this encounter Care Teams Job Cost Estimator Relationship Specialty Start Date End Date Hillary Unger MD [address] [place] [address] PCP - General Internal Medicine 08/21/15 08/05/18 Nelson Arroyo PA-C [address] [place] [address] PCP - Assigned PCP 04/12/18 05/02/18 Hillary Unger MD [address] [place] [address] PCP - Assigned PCP 02/01/18 04/11/18 Hillary Unger MD [address] [place] [address] PCP - Assigned PCP 05/03/18 07/07/18 Nelson Arroyo PA-C [address] [place] [address] PCP - General Physician Cover Stitch Machine Operator - Medical 08/06/18 Salina Doherty MD Internal Medicine 12/01/14 Carrillo Ware APRN SALES OFFICE ADMINISTRATOR [address] [place] [address] Nurse Practitioner Nurse Practitioner 12/16/14 Angelica Jerez NP [facility] [address] [place], [place] 77[address] Nurse Practitioner Nurse Practitioner - Family 07/12/16 Hillary Unger MD [address] [place] [address] Assigned PCP 05/03/18 07/18/18 Nelson Arroyo PA-C [address] [place] [address] Assigned PCP 07/05/18 07/29/20 Chinyere Barbour Personal Advocate & Liaison (PAL) 01/31/20 04/26/20 Nelson Arroyo PA-C [address] [place] [address] Assigned PCP 07/30/20 Pietro Wills MD [address] [place] [address] Assigned Heart and Vascular Provider 12/14/22 06/26/24 Tank Bucio MD [address], [facility] [address] [place] [address] Physician gm/svp global publisher business 12/01/23 documented as of this encounter
--- OUTSIDE RECORDS SUMMARY | 2024-10-27 10:23 | XMS_ITS | Encounter Summary ---
Author Organization [place] Address [address] [place] [address] Care Team Providers Care Electric Meter Setter Name Role Phone Salina Doherty MD Unavailable [phone] Carrillo Ware APRN WEB DEVELOPER PROGRAMMER Unavailable [phone] Hillary Unger MD Primary Care P rovider Nelson Arroyo PA-C Primary Care Provider +[phone] Hillary Unger MD Primary Care P rovider Angelica Jerez NP Unavailable [phone] Nelson Arroyo PA-C Unavailable [phone] Hillary Unger MD Unavailable Hillary Unger MD Unavailable Hillary Unger MD Unavailable Nelson Arroyo PA-C Unavailable [phone] Nelson Arroyo PA-C Primary Care Provider +[phone]- Chinyere Barbour Unavailable Unavailable Nelson Arroyo PA-C Unavailable [phone] Pietro Wills MD Unavailable [phone] Tank Bucio MD Unavailable + [phone] Reason for Visit * Reason Onset Date Comments Refill Request 07/31/2015 Seroquel 25mg Encounter Details Date Type Department Care Team (Late st Contact Info) Description 07/31/2015 MyC Refill [address], [address] [place] [address] Nelson Arroyo PA-C [address] [place] [address] Refill Request (Seroquel 25mg) Social [...] PM CDT Legal Sex Female 3:44 AM WIRE WELDER Gender Identity Female 10/03/2020 8:33 PM CDT Sexual Orientation Straight 07/01/2018 3: 40 PM WIRE WELDER documented as of this encounter Miscellaneous Notes * Telephone Encounter - Maude Singh RN - 08/01/2015 10:35 AM CDT Last rx for Seroquel was written 07/11/2015 #30 with 1 refill and sent to pharmacy. Patient should have 1 refill remaining. Maude Singh RN * Telephone Encounter - Maude Singh RN - 08/01/2015 10:29 AM CDTMessage [facility]: Original authorizing provider: RO Choudhury would like a refill of the following medications: QUEtiapine (SEROQUEL) 25 MG tablet [Nelson Arroyo PA-C] Preferred pharmacy: [facility] [address] [place] [address] ROGELIO HERNANDEZ Comment: Medication renewals requested in [...] Total Score: 6 06/28/19 16 8:10 AM WIRE WELDER documented as of this encounter Care Teams Electric Meter Setter Relationship Specialty Start Date End Date Hillary Unger MD [address] [place] [address] PCP - General Internal Medicine 01/05/15 08/02/15 Nelson Arroyo PA-C [address] [place] [address] PCP - General Physician Road Repairer - Medical 08/03/15 08/20/15 Hillary Unger MD [address] [place] [address] PCP - General Internal Medicine 08/21/15 08/05/18 Nelson Arroyo PA-C [address] [address] PCP - Assigned PCP 04/12/18 05/02/18 Hillary Unger MD [address] [place] [address] PCP - Assigned PCP 02/01/18 04/11/18 Hillary Unger MD [address] [place], [place] 84[address] PCP - Assigned PCP 05/03/18 07/07/18 Nelson Arroyo PA-C [address] [place] [address] PCP - General Physician Road Repairer - Medical 08/06/18 Salina Doherty MD Internal Medicine 12/01/14 Carrillo Ware APRN WEB DEVELOPER PROGRAMMER [address] [place] [address]2715 Nurse Practitioner Nurse Practitioner 12/16/14 Angelica Jerez NP [facility] [address] [place], [place] [phone] Nurse Practitioner Nurse Practitioner - Family 07/12/16 Hillary Unger MD [address] [place] [address] Assigned PCP 05/03/18 07/18/18 Nelson Arroyo PA-C [address] [address] Assigned PCP 07/05/18 07/29/20 Chinyere Barbour Personal Advocate & Liaison (PAL) 01/31/20 04/26/20 Nelson Arroyo PA-C [address] [place] [address] Assigned PCP 07/30/20 Pietro Wills MD [address] [place] [address] Assigned Heart and Vascular Provider 12/14/22 06/26/24 Tank Bucio MD [address] [facility] [address] [place] [address] Physician wood patternmaker 12/01/23 documented as of this encounter
--- OUTSIDE RECORDS SUMMARY | 2024-10-27 10:23 | XMS_ITS | Encounter Summary ---
Author Organization [place] Address [address] [place] [address] Care Team Providers Care Vp Delivery Name Role Phone Salina Doherty MD Unavailable [phone] Carrillo Ware APRN LAUNDRY MANAGER Unavailable Hillary Unger MD Primary Care P rovider [facility] Hospital[facility] NP Unavailable [phone] Nelson Arroyo PA-C Unavailable [phone] Hillary Unger MD Unavailable Hillary Unger MD Unavailable Hillary Unger MD Unavailable Nelson Arroyo PA-C Unavailable [phone] Nelson Arroyo PA-C Primary Care Provider Chinyere Barbour Unavailable Unavailable Nelson Arroyo PA-C Unavailable [phone] Pietro Wills MD Unavailable [phone] Tank Bucio MD Unavailable [phone] Reason for Visit * Reason Onset Date Comments Refill Request 08/27/2017 tretinoin (RETIN -A) 0.05 % cream Encounter Details Date Type Department Care Team (Late st Contact Info) Description 08/27/2017 MyC Refill [facility], [address] [place] [address] Nelson Arroyo PA-C [address] [place] [address] Refill Request (tretinoin (RETIN-A) 0.05 %... Social [...] PM CDT Legal Sex Female 3:44 AM UM SPECIALIST Gender Identity Female 10/03/2020 8:33 PM CDT Sexual Orientation Straight 07/01/2018 3: 40 PM UM SPECIALIST documented as of this encounter Miscellaneous [...] CDT Return Visit with Angelica Jerez NP [facility] [address] [place] [address] [address] [facility] [address] Sig: Spread a pea size amount [...] RN - 08/27/2017 3:13 PM CDTMessage from [employer] Bioscienceshart: Original authorizing provider: RO Choudhury would like a refill of the following medications: tretinoin (RETIN-A) 0.05 % cream [Nelson Arroyo PA-C] Preferred pharmacy: [facility] [address] Comment: documented in this encounter Plan of Treatment Not on file documented as of this encounter Visit Diagnoses Diagnosis Acne, unspecified acne type documented in this encounter Additional Health Concerns Assessment Noted Time PHQ-9 Depression Total Score: 4 04/04/20 17 7:13 AM UM SPECIALIST documented as of this encounter Care Teams Vp Delivery Relationship Specialty Start Date End Date Hillary Unger MD [address] [place], [place] [address] PCP - General Internal Medicine 08/21/15 08/05/18 Nelson Arroyo PA-C [address] [place] [address] PCP - Assigned PCP 04/12/18 05/02/18 Hillary Unger MD [address] [place], [place] [address] PCP - Assigned PCP 02/01/18 04/11/18 Hillary Unger MD [address] [place] [address] PCP - Assigned PCP 05/03/18 07/07/18 Nelson Arroyo PA-C [address] [place] [address] PCP - General Physician Computer Game Programmer - Medical 08/06/18 Salina Doherty MD Internal Medicine 12/01/14 Carrillo Ware APRN LAUNDRY MANAGER [address] [place] [address] Nurse Practitioner Nurse Practitioner 12/16/14 Angelica Jerze NP [facility] [address] [place], [place] 5[address] Nurse Practitioner Nurse Practitioner - Family 07/12/16 Hillary Unger MD [address] [place] [address] Assigned PCP 05/03/18 07/18/18 Nelson Arroyo PA-C [address] [address] Assigned PCP 07/05/18 07/29/20 Chinyere Barbour Personal Advocate & Liaison (PAL) 01/31/20 04/26/20 Nelson Arroyo PA-C [address] [place] [address] Assigned PCP 07/30/20 Pietro Wills MD [address] [place] [address] Assigned Heart and Vascular Provider 12/14/22 06/26/24 Tank Bucio MD [address] [facility] [address] [place] [address] Physician machine coil assembler 12/01/23 documented as of this encounter
--- OUTSIDE RECORDS SUMMARY | 2024-10-27 10:23 | XMS_ITS | Encounter Summary ---
Author Organization [place] Address [address] [place] [address]. [place] [address] Care Team Providers Care Wind Turbine Engineer Name Role Phone Salina Doherty MD Unavailable [phone] Carrillo Ware APRN SENIOR SOFTWARE TEST ENGINEER Unavailable SolitarioAngelica golden NP Unavailable [phone] Nelson Arroyo PA-C Unavailable [phone] Nelson Arroyo PA-C Primary Care Provider [phone] Chinyere Barbour Unavailable Unavailable Nelson Arroyo PA-C Unavailable Pietro Wills MD Unavailable [phone] Tank Bucio MD Unavailable Reason for Visit * Reason Onset Date Comments Refill Request 04/25/2019 Zulay Wang in Encounter Details Date Type Department Care Team (Late st Contact Info) Description 04/25/2019 MyC Refill [address], [address] [place] [address] Nelson Arroyo PA-C [address] [place] [address] Refill Request (Rossy Wang) Social [...] PM CDT Legal Sex Female 3:44 AM TYPE COPYIST Gender Identity Female 10/03/2020 8:33 PM CDT Sexual Orientation Straight 07/01/2018 3: 40 PM TYPE COPYIST documented as of this encounter Miscellaneous Notes * Telephone Encounter - Mariella Tamayo - 04/29/2019 10:16 AM CST Sent message. Mariella Tamayo, Coding Clerk COPYIST * Telephone Encounter - Russel Pak MD - 04/27/2019 7:11 AM TYPE COPYIST Last PHQ showing significant sx. Pt should be seen for f/u. Please call to schedule. 1m refill provided. COPYIST * Telephone Encounter - Maude Singh RN - 04/26/2019 2:55 PM CST Buspar, Wellbutrin Last Written Prescription Date: 12/03/2018 ([facility]) Last Fill Quantity: 90, # refills: [...] because: PHQ-9 > 4. Maude Singh RN COPYIST documented in this encounter Plan of Treatment [...] Start Date End Date Nelson Arroyo PA-C [address] [address] PCP - General Physician Health Information Coder - Medical 08/06/18 Salina Doherty MD Internal Medicine 12/01/14 Carrillo Ware APRN SENIOR SOFTWARE TEST ENGINEER [address] [place] [address]22[address] Nurse Practitioner Nurse Practitioner 12/16/14 Angelica Jerez NP [address] [phone] Nurse Practitioner Nurse Practitioner - Family 07/12/16 Nelson Arroyo PA-C [address] [address] Assigned PCP 07/05/18 07/29/20 Chinyere Barbour Personal Advocate & Liaison (PAL) 01/31/20 04/26/20 Nelson Arroyo PA-C [address] [address] Assigned PCP 07/30/20 Pietro Wills MD [address] [address] Assigned Heart and Vascular Provider 12/14/22 06/26/24 Tank Bucio MD [address], [facility] [address] [place] [address] Physician welding pantograph machine operator 12/01/23 documented as of this encounter
--- OUTSIDE RECORDS SUMMARY | 2024-10-27 10:23 | XMS_ITS | Encounter Summary ---
Author Organization [place] Address [address] [place] [address] Care Team Providers Care Mailing Machine Assistant Name Role Phone Salina Doherty MD Unavailable [phone] Carrillo Ware APRN MOTION PICTURES CARTOONIST Unavailable Hillary Unger MD Primary Care P rovider Nelson Arroyo PA-C Primary Care Provider +[phone] Hillary Unger MD Primary Care P rovider Angelica Jerez NP Unavailable [phone] Nelson Arroyo PA-C Unavailable [phone] Hillary Unger MD Unavailable Hillary Unger MD Unavailable Hillary Unger MD Unavailable Nelson Arroyo PA-C Unavailable [phone] Nelson Arroyo PA-C Primary Care Provider +1- Chinyere Barbour Unavailable Unavailable Nelson Arroyo PA-C Unavailable [phone] Pietro Wills MD Unavailable [phone] Tank Bucio MD Unavailable [phone] Reason for Visit * Reason Onset Date Comments Refill Request 07/31/2015 Encounter Details Date Type Department Care Team (Late st Contact Info) Description 07/31/2015 MyC Refill [facility] [address] [place] [address] Hillary Unger MD [address] [place] [address] Refill Request Social History Tobacco Use Types [...] PM CDT Legal Sex Female 3:44 AM WINDOWS SERVER ARCHITECT Gender Identity Female 10/03/2020 8:33 PM CDT Sexual Orientation Straight 07/01/2018 3: 40 PM WINDOWS SERVER ARCHITECT documented as of this encounter Miscellaneous Notes [...] MG tablet [Hillary Unger MD] Preferred pharmacy: [address] [address] ROGELIO HERNANDEZ Comment: Medication renewals requested in [...] Total Score: 6 06/28/19 16 8:10 AM WINDOWS SERVER ARCHITECT documented as of this encounter Care Teams Mailing Machine Assistant Relationship Specialty Start Date End Date Hillary Unger MD [address] [place] [address] PCP - General Internal Medicine 01/05/15 08/02/15 Nelson Arroyo PA-C [address] [place], [place] [address] PCP - General Physician Oracle Financial Application Developer - Medical 08/03/15 08/20/15 Hillary Unger MD [address] [place] [address] PCP - General Internal Medicine 08/21/15 08/05/18 Nelson Arroyo PA-C [address] [facility] [address] PCP - Assigned PCP 04/12/18 05/02/18 Hillary Unger MD [address] [place] [address] PCP - Assigned PCP 02/01/18 04/11/18 Hillary Unger MD [address] [place] [address] PCP - Assigned PCP 05/03/18 07/07/18 Nelson Arroyo PA-C [address] [place] [address] PCP - General Physician Oracle Financial Application Developer - Medical 08/06/18 Salina Doherty MD Internal Medicine 12/01/14 Carrillo Ware APRN CNP [address] [place] [address] Nurse Practitioner Nurse Practitioner 12/16/14 Angelica Jerez NP [facility] [address] [place] [address] Nurse Practitioner Nurse Practitioner - Family 07/12/16 Hillary Unger MD [address] [place] [address] Assigned PCP 05/03/18 07/18/18 Nelson Arroyo PA-C [address] [place] [address] Assigned PCP 07/05/18 07/29/20 Chinyere Barbour Personal Advocate & Liaison (PAL) 01/31/20 04/26/20 Nelson Arroyo PA-C [address] [id number] Assigned PCP 07/30/20 Pietro Wills MD [address] [place] [address] Assigned Heart and Vascular Provider 12/14/22 06/26/24 Tank Bucio MD [address] [facility] [address] [place] [address] Physician agricultural produce commission agent 12/01/23 documented as of this encounter
--- OUTSIDE RECORDS SUMMARY | 2024-10-27 10:23 | XMS_ITS | Encounter Summary ---
Author Organization [facility] [place] Address [address] [place] [address]. [place] [address] Care Team Providers Care Lumber Trimmer Name Role Phone Salina Doherty MD Unavailable [phone] Carrillo Ware APRN FAMILY CONSUMER SCIENCE TEACHER Unavailable SolitarioAngelica golden NP Unavailable [phone] Nelson Arroyo PA-C Unavailable [phone] Nelson Arroyo PA-C Primary Care Provider Chinyere Barbour Unavailable Unavailable Nelson Arroyo PA-C Unavailable [phone] Pietro Wills MD Unavailable Tank Bucio MD Unavailable Reason for Visit * Reason Onset Date Comments Refill Request 06/03/2019 Buspar Encounter Details Date Type Department Care Team (Late st Contact Info) Description 06/03/2019 MyC Refill [facility] [address] [facility], [address] [place] [address] [place] [address] [place] [address] Refill Request (Buspar) Social History [...] PM CDT Legal Sex Female 3:44 AM QUALITY ENGINEERING MANAGER Gender Identity Female 10/03/2020 8:33 PM CDT Sexual Orientation Straight 07/01/2018 3: 40 PM QUALITY ENGINEERING MANAGER documented as of this encounter Miscellaneous Notes * Telephone Encounter - Maude Singh RN - 06/03/2019 3:33 PM CST Duplicate ITY ENGINEERING MANAGER documented in this encounter Plan of Treatment Not on file documented as of this encounter Visit Diagnoses Diagnosis Generalized anxiety disorder documented in this encounter Additional Health Concerns Assessment Noted Time PHQ-9 Depression Total Score: 10 019 2:36 PM CDT documented as of this encounter Care Teams Lumber Trimmer Relationship Specialty Start Date End Date Nelson Arroyo PA-C [address] [facility] [place] [address] PCP - General Physician Clinical Laboratory Aide - Medical 08/06/18 Salina Doherty MD Internal Medicine 12/01/14 Carrillo Ware APRN FAMILY CONSUMER SCIENCE TEACHER [address] [place] [address] Nurse Practitioner Nurse Practitioner 12/16/14 Angelica Jerez NP [address] 0955[address] Nurse Practitioner Nurse Practitioner - Family 07/12/16 Nelson Arroyo PA-C [address] [place] [address] Assigned PCP 07/05/18 07/29/20 Chinyere Barbour Personal Advocate & Liaison (PAL) 01/31/20 04/26/20 Nelson Arroyo PA-C [address], [place] [address] Assigned PCP 07/30/20 Pietro Wills MD [address] [address] Assigned Heart and Vascular Provider 12/14/22 06/26/24 Tank Bucio MD [address] [facility], [facility] [address] [place] [address] Physician b2b sales manager 12/01/23 documented as of this encounter
--- OUTSIDE RECORDS SUMMARY | 2024-10-27 10:23 | XMS_ITS | Encounter Summary ---
Author Organization [place] Address [address] [place] [address]. [place] [address] Care Team Providers Care Grain Unloader Name Role Phone Salina Doherty MD Unavailable [phone] Carrillo Ware APRN MCAT TUTOR Unavailable SolitarioAngelica golden NP Unavailable [phone] Nelson Arroyo PA-C Unavailable [phone] Nelson Arroyo PA-C Primary Care Provider [phone] Chinyere Barbour Unavailable Unavailable Nelson Arroyo PA-C Unavailable Pietro Wills MD Unavailable Tank Bucio MD Unavailable [phone] Reason for Visit * Reason Onset Date Comments Panel Management 06/23/2019 Encounter Details Date Type Department Care Team (Late st Contact Info) Description 06/23/2019 MyC Medical Advice [facility] [address] [facility], [address] [place] [address] Nelson Arroyo PA-C [address] [place] [address] Panel Management Social History Tobacco [...] PM CDT Legal Sex Female 3:44 AM DIE PRESS OPERATOR Gender Identity Female 10/03/2020 8:33 PM CDT Sexual Orientation Straight 07/01/2018 3: 40 PM DIE PRESS OPERATOR documented as of this encounter Miscellaneous [...] to do PHQ9. Type of outreach: Sent Eye-Q message. Questions for provider review: None Ashely Younger MA Chart routed to Care Team . PRESS OPERATOR documented in this encounter Plan of Treatment Not on file documented as of this encounter Visit Diagnoses Not on filedocumented in this encounter Additional Health Concerns Assessment Noted Time PHQ-9 Depression Total Score: 10 019 2:36 PM CDT documented as of this encounter Care Teams Grain Unloader Relationship Specialty Start Date End Date Nelson Arroyo PA-C [address] [place] [address] PCP - General Physician Dog Trainer - Medical 08/06/18 Salina Doherty MD Internal Medicine 12/01/14 Carrillo Ware APRN MCAT TUTOR [address] [place] [address] Nurse Practitioner Nurse Practitioner 12/16/[address] [facility] [address] [place] [address] Nurse Practitioner Nurse Practitioner - Family 07/12/16 Nelson Arroyo PA-C [address] [place] [address] Assigned PCP 07/05/18 07/29/20 Chinyere Barbour Personal Advocate & Liaison (PAL) 01/31/20 04/26/20 Nelson Arroyo PA-C [address] [address] Assigned PCP 07/30/20 Pietro Wills MD [address] [place] [address] Assigned Heart and Vascular Provider 12/14/22 06/26/24 Tank Bucio MD [address], [facility] [address] [place] [address] Physician tip fixer 12/01/23 documented as of this encounter
--- OUTSIDE RECORDS SUMMARY | 2024-10-27 10:23 | XMS_ITS | Encounter Summary ---
Author Organization [facility] Address [address] [place] [address] Care Team Providers Care Program Engineer Name Role Phone Salina Doherty MD Unavailable Carrillo Ware APRN SEGMENTAL WALL INSTALLER Unavailable SolitarioAngelica golden NP Unavailable [phone] Nelson Arroyo PA-C Primary Care Provider [phone] Nelson Arroyo PA-C Unavailable [phone] Pietro Wills MD Unavailable [phone] Tank Bucio MD Unavailable [phone] Encounter Details Date Type Department Care Team (Late st Contact Info) Description 02/10/2023 [facility] Medical Advice [facility] [address] [place] [address] Sachi Barrera, RN Social History [...] PM CDT Legal Sex Female 3:44 AM MORTGAGE SPECIALIST Gender Identity Female 10/03/2020 8:33 PM CDT Sexual Orientation Straight 07/01/2018 3: 40 PM MORTGAGE SPECIALIST documented as of this encounter Plan of Treatment Not on file documented as of this encounter Visit Diagnoses Not on filedocumented in this encounter Additional Health Concerns Assessment Noted Time PHQ-9 Depression Total Score: 6 08/16/19 23 12:42 PM CDT documented as of this encounter Care Teams Program Engineer Relationship Specialty Start Date End Date Nelson Arroyo PA-C [address] [place] [address] PCP - General Physician Tugboat Operator - Medical 08/06/18 Salina Doherty MD Internal Medicine 12/01/14 Carrillo Ware APRN SEGMENTAL WALL INSTALLER [address] [place] [address]48445 Nurse Practitioner Nurse Practitioner 12/16/14 Angelica Jerez NP [address] 358557 Nurse Practitioner Nurse Practitioner - Family 07/12/16 Nelson Arroyo PA-C [address] [address] [address] Assigned PCP 07/30/20 Pietro Wills MD [address] [address] Assigned Heart and Vascular Provider 12/14/22 06/26/24 Tank Bucio MD [address], [facility] 100 [place] [address] Physician professor of floriculture 12/01/23 documented as of this encounter
--- OUTSIDE RECORDS SUMMARY | 2024-10-27 10:23 | XMS_ITS | Encounter Summary ---
Author Organization [facility] Address [address] [place] [address] Care Team Providers Care Research Center Director Name Role Phone Salina Doherty MD Unavailable [phone] Carrillo Ware APRN TANK PUMPER PANELBOARD Unavailable Hillary Unger MD Primary Care P rovider [facility] NP Unavailable [phone] Nelson Arroyo PA-C Unavailable Hillary Unger MD Unavailable Hillary Unger MD Unavailable Hillary Unger MD Unavailable Nelson Arroyo PA-C Unavailable [phone] Nelson Arroyo PA-C Primary Care Provider Chinyere Barbour Unavailable Unavailable Nelson Arroyo PA-C Unavailable [phone] Pietro Wills MD Unavailable [phone] Tank Bucio MD Unavailable [phone] Encounter Details Date Type Department Care Team (Late st Contact Info) Description 04/02/2017 [facility] [address] [place] [id number] Angelica Jerez HEAT AND FROST INSULATOR [address] [place], [place] [id number] Social History Tobacco Use Types Packs/Day Years [...] PM CDT Legal Sex Female 3:44 AM CHEMICAL LABORATORY TESTER Gender Identity Female 10/03/2020 8:33 PM CDT Sexual Orientation Straight 07/01/2018 3: 40 PM CHEMICAL LABORATORY TESTER documented as of this encounter Miscellaneous Notes * Telephone Encounter - Ila Veliz RN - 04/03/2017 8:14 AM CST Pt is requesting earlier appointment today if available. Thank you! Ila Veliz RN ICAL LABORATORY TESTER documented in this encounter Plan of Treatment Not on file documented as of this encounter Visit Diagnoses Not on filedocumented in this encounter Additional Health Concerns Assessment Noted Time PHQ-9 Depression Total Score: 3 12/07/19 17 2:21 PM CDT documented as of this encounter Care Teams Research Center Director Relationship Specialty Start Date End Date Hillary Unger MD [address] [place] [address] PCP - General Internal Medicine 08/21/15 08/05/18 Nelson Arroyo PA-C [address] [place] [address] PCP - Assigned PCP 04/12/18 05/02/18 Hillary Unger MD [address] [place] [address] PCP - Assigned PCP 02/01/18 04/11/18 Hillary Unger MD [address] [place] [address] PCP - Assigned PCP 05/03/18 07/07/18 Nelson Arroyo PA-C [address] [place] 4[address] PCP - General Physician Radiation Control Worker - Medical 08/06/18 Salina Doherty MD Internal Medicine 12/01/14 Carrillo Ware APRN TANK PUMPER PANELBOARD [address] [place] [address] Nurse Practitioner Nurse Practitioner 12/16/14 Angelica Jerez NP [facility] [address] [place] [address] Nurse Practitioner Nurse Practitioner - Family 07/12/16 Hillary Unger MD [address] [place] [address] Assigned PCP 05/03/18 07/18/18 Nelson Arroyo PA-C [address] [address] Assigned PCP 07/05/18 07/29/20 Chinyere Barbour Personal Advocate & Liaison (PAL) 01/31/20 04/26/20 Nelson Arroyo PA-C [address] [place] [address] Assigned PCP 07/30/20 Pietro Wills MD [address] [place] [address] Assigned Heart and Vascular Provider 12/14/22 06/26/24 Tank Bucio MD [address], [address] [address] Physician post framer 12/01/23 documented as of this encounter
--- OUTSIDE RECORDS SUMMARY | 2024-10-27 10:23 | XMS_ITS | Encounter Summary ---
Author Organization [facility] Address [address] [place] [address]. [place] [address] Care Team Providers Care Administrative Judge Name Role Phone Salina Doherty MD Unavailable [phone] Carrillo Ware APRN CUSTOMER SERVICE DRIVER Unavailable SolitarioAngelica golden NP Unavailable [phone] Nelson Arroyo PA-C Unavailable [phone] Nelson Arroyo PA-C Primary Care Provider Chinyere Barbour Unavailable Unavailable Nelson Arroyo PA-C Unavailable Pietro Wills MD Unavailable Tank Bucio MD Unavailable Reason for Visit * Reason Onset Date Comments Refill Request 06/16/2019 Trazodone Encounter Details Date Type Department Care Team (Late st Contact Info) Description 06/16/2019 MyC Refill [facility] [address] [facility], [address] [place] [address] Nelson Arroyo PA-C [address] [place] [address] Refill Request (Trazodone ) Social [...] PM CDT Legal Sex Female 3:44 AM PHARM SPEC Gender Identity Female 10/03/2020 8:33 PM CDT Sexual Orientation Straight 07/01/2018 3: 40 PM PHARM SPEC documented as of this encounter Miscellaneous Notes * Telephone Encounter - Maude Singh RN - 06/18/2019 3:05 PM CST Duplicate. Maude Singh RN M SPEC documented in this encounter Plan of Treatment Not on file documented as of this encounter Visit Diagnoses Diagnosis Persistent insomnia Persistent disorder of initiating or maintaining sleep documented in this encounter Additional Health Concerns Assessment Noted Time PHQ-9 Depression Total Score: 10 019 2:36 PM CDT documented as of this encounter Care Teams Administrative Judge Relationship Specialty Start Date End Date Nelson Arroyo PA-C [address] [place] [address] PCP - General Physician Cash Application Clerk - Medical 08/06/18 Salina Doherty MD Internal Medicine 12/01/14 Carrillo Ware APRN CUSTOMER SERVICE DRIVER [address] [place] [address] Nurse Practitioner Nurse Practitioner 12/16/14 Angelica Jerez NP [address] 283367 Nurse Practitioner Nurse Practitioner - Family 07/12/16 Nelson Arroyo PA-C [address] [address], [place] [address] Assigned PCP 07/05/18 07/29/20 Chinyere Barbour Personal Advocate & Liaison (PAL) 01/31/20 04/26/20 Nelson Arroyo PA-C [address] [address], [place] [address] Assigned PCP 07/30/20 Pietro Wills MD [address] [place] [address] Assigned Heart and Vascular Provider 12/14/22 06/26/24 Tank Bucio MD [address], [address] [address] Physician rn imcu 12/01/23 documented as of this encounter
--- OUTSIDE RECORDS SUMMARY | 2024-10-27 10:23 | XMS_ITS | Encounter Summary ---
Author Organization [facility] Address [address] [place] [address]. [place] [address] Care Team Providers Care Bonding Supervisor Name Role Phone Salina Doherty MD Unavailable [phone] Carrillo Ware APRN FOAM CHARGER Unavailable SolitarioAngelica golden NP Unavailable Nelson Arroyo PA-C Unavailable Nelson Arroyo PA-C Primary Care Provider Chinyere Barbour Unavailable Unavailable Nelson Arroyo PA-C Unavailable [phone] Pietro Wills MD Unavailable Tank Bucio MD Unavailable Reason for Visit * Reason Onset Date Comments Refill Request 06/16/2019 Seroquel 300mg Encounter Details Date Type Department Care Team (Late st Contact Info) Description 06/16/2019 MyC Refill [facility] [address] [facility], [address] [place] [address] [place] [address] [place] [address] Refill Request (Seroquel 300mg) Social History [...] PM CDT Legal Sex Female 3:44 AM SURVIVAL EQUIPMENT REPAIRER Gender Identity Female 10/03/2020 8:33 PM CDT Sexual Orientation Straight 07/01/2018 3: 40 PM SURVIVAL EQUIPMENT REPAIRER documented as of this encounter Miscellaneous Notes * Telephone Encounter - Nelson Arroyo PA-C - 06/21/2019 1:41 PM SURVIVAL EQUIPMENT REPAIRER I will fill for one month-- I see she has an appointment. Due for labs. Nelson IVAL EQUIPMENT REPAIRER * Telephone Encounter - Maude Singh RN [...] 90 days) Jun 30, 2019 3:00 PM SURVIVAL EQUIPMENT REPAIRER MyChart Short with Nelson Arroyo PA-C [facility] [address] [place] [address], [facility] 100 [facility][1] [address] Requested Prescriptions Pending Prescriptions Disp Refills [...] & Orders section of the refill encounter. IVAL EQUIPMENT REPAIRER documented in this encounter Plan of Treatment Not on file documented as of this encounter Visit Diagnoses Diagnosis Generalized anxiety disorder Major depressive disorder, recurrent episode, moderate (H) Major depressive disorder, recurrent episode, moderate documented in this encounter Additional Health Concerns Assessment Noted Time PHQ-9 Depression Total Score: 10 019 2:36 PM CDT documented as of this encounter Care Teams Bonding Supervisor Relationship Specialty Start Date End Date Nelson Arroyo PA-C [address] [place] [address] PCP - General Physician Crabbing Machine Operator - Medical 08/06/18 Salina Doherty MD Internal Medicine 12/01/14 Carrillo Ware APRN FOAM CHARGER [address] [place] [address] Nurse Practitioner Nurse Practitioner 12/16/14 Angelica Jerez MULTIMEDIA DESIGNER [facility] [address] [place] [address] Nurse Practitioner Nurse Practitioner - Family 07/12/16 Nelson Arroyo PA-C [address] [place] [address] Assigned PCP 07/05/18 07/29/20 Chinyere Barbour Personal Advocate & Liaison (PAL) 01/31/20 04/26/20 Nelson Arroyo PA-C [address] [place] [address] Assigned PCP 07/30/20 Pietro Wills MD [address] [place] [address] Assigned Heart and Vascular Provider 12/14/22 06/26/24 Tank Bucio MD [address], [address] [address] Physician lettuce cutter 12/01/23 documented as of this encounter
--- OUTSIDE RECORDS SUMMARY | 2024-10-27 10:23 | XMS_ITS | Encounter Summary ---
Author Organization [facility] Address [address] [place] [address]. [place] [address] Care Team Providers Care Controls Design Engineer Name Role Phone Salina Doherty MD Unavailable Carrillo Ware APRN STEELER Unavailable SolitarioAngelica golden NP Unavailable [phone] Nelson Arroyo PA-C Primary Care Provider Nelson Arroyo PA-C Unavailable Pietro Wills MD Unavailable Tank Bucio MD Unavailable [phone] Reason for Visit * Reason Onset Date Comments Refill Request 08/15/2022 Encounter Details Date Type Department Care Team (Late st Contact Info) Description 08/15/2022 MyC Refill [facility] [address] [place] [address] Nelson Arroyo PA-C [address] [place] [address] Refill Request Social History Tobacco [...] PM CDT Legal Sex Female 3:44 AM SOLAR INSTALLATION TECHNICIAN Gender Identity Female 10/03/2020 8:33 PM CDT Sexual Orientation Straight 07/01/2018 3: 40 PM SOLAR INSTALLATION TECHNICIAN COVID-19 Exposure Response Date Recorded In [...] for review/approval because: Drug not on the [facility] refill protocol Ashely Naylor RN documented in this encounter Plan of Treatment Not on file documented as of this encounter Visit Diagnoses Diagnosis Muscle spasm Spasm of muscle documented in this encounter Additional Health Concerns Assessment Noted Time PHQ-9 Depression Total Score: 6 08/16/19 23 12:42 PM CDT documented as of this encounter Care Teams Controls Design Engineer Relationship Specialty Start Date End Date Nelson Arroyo PA-C [address] [place] [address] PCP - General Physician Assembler Show Motor - Medical 08/06/18 Salina Doherty MD Internal Medicine 12/01/14 Carrillo Ware APRN STEELER [address] [place] [address] Nurse Practitioner Nurse Practitioner 12/16/14 Angelica Jerez NP [place] [address] [address] [facility] [place] [address] Nurse Practitioner Nurse Practitioner - Family 07/12/16 Nelson Arroyo PA-C [address] [place] [address] Assigned PCP 07/30/20 Pietro Wills MD [address] [place] [address] Assigned Heart and Vascular Provider 12/14/22 06/26/24 Tank Bucio MD [address] [facility] [facility] [address] [place] [address] Physician belt changer 12/01/23 documented as of this encounter
--- OUTSIDE RECORDS SUMMARY | 2024-10-27 10:24 | XMS_ITS | Encounter Summary ---
Author Organization [place] Address [address] [place] [address]. [place] [address] Care Team Providers Care Welcome Hostess Name Role Phone Salina Doherty MD Unavailable [phone] Carrillo Ware APRN EMPLOYEE RELATIONS MANAGER Unavailable SolitarioAngelica golden NP Unavailable [phone] Nelson Arroyo PA-C Primary Care Provider Nelson Arroyo PA-C Unavailable Pietro Wills MD Unavailable [phone] Tank Bucio MD Unavailable [phone] Encounter Details Date Type Department Care Team (Late st Contact Info) Description 06/22/2022 MyC Medical Advice [facility] [address] [place] [address] Nelson Arroyo PA-C [address] [place] [address] Social History Tobacco Use Types [...] CDT Legal Sex Female 3:44 AM SENIOR SYSTEMS ANALYST Gender Identity Female 10/03/2020 8:33 PM CDT Sexual Orientation Straight 07/01/2018 3: 40 PM SENIOR SYSTEMS ANALYST documented as of this encounter Plan of Treatment Not on file documented as of this encounter Visit Diagnoses Not on filedocumented in this encounter Additional Health Concerns Assessment Noted Time PHQ-9 Depression Total Score: 7 10/23/19 11:44 AM CDT documented as of this encounter Care Teams Welcome Hostess Relationship Specialty Start Date End Date Nelson Arroyo PA-C [address] [address] PCP - General Physician Sped Teacher - Medical 08/06/18 Salina Doherty MD Internal Medicine 12/01/14 Carrillo Ware APRN EMPLOYEE RELATIONS MANAGER [address] [place] [address] Nurse Practitioner Nurse Practitioner 12/16/14 Angelica Jerez NP [place] [address] [address] [place], [place] 78[address] Nurse Practitioner Nurse Practitioner - Family 07/12/16 Nelson Arroyo PA-C [address] [address] [address] Assigned PCP 07/30/20 Pietro Wills MD [address] [address] Assigned Heart and Vascular Provider 12/14/22 06/26/24 Tank Bucio MD [address], [facility] 100 [place] [address] Physician preprint analyst 12/01/23 documented as of this encounter
--- OUTSIDE RECORDS SUMMARY | 2024-10-27 10:24 | XMS_ITS | Encounter Summary ---
Author Organization [facility] Address [address] [place] [address]. [place] [address] Care Team Providers Care Chief Pilot Name Role Phone Salina Doherty MD Unavailable Carrillo Ware APRN SALES SERVICE COORDINATOR Unavailable SolitarioAngelica golden NP Unavailable [phone] Nelson Arroyo PA-C Unavailable Nelson Arroyo PA-C Primary Care Provider Chinyere Barbour Unavailable Unavailable Nelson Arroyo PA-C Unavailable Pietro Wills MD Unavailable Tank Bucio MD Unavailable Reason for Visit * Reason Onset Date Comments Refill Request 06/14/2019 Encounter Details Date Type Department Care Team (Late st Contact Info) Description 06/14/2019 MyC Refill [facility] [address] [facility], [address] [place] [address] [place] [address] [place] [address] Refill Request Social History Tobacco [...] CDT Legal Sex Female 3:44 AM ASSOCIATE TEAM PHYSICIAN Gender Identity Female 10/03/2020 8:33 PM CDT Sexual Orientation Straight 07/01/2018 3: 40 PM ASSOCIATE TEAM PHYSICIAN documented as of this encounter Miscellaneous Notes * Telephone Encounter - Maude Singh RN - 06/17/2019 1:38 PM CST Duplicate CIATE TEAM PHYSICIAN documented in this encounter Plan of Treatment Not on file documented as of this encounter Visit Diagnoses Diagnosis Generalized anxiety disorder Major depressive disorder, recurrent episode, moderate (H) Major depressive disorder, recurrent episode, moderate documented in this encounter Additional Health Concerns Assessment Noted Time PHQ-9 Depression Total Score: 10 019 2:36 PM CDT documented as of this encounter Care Teams Chief Pilot Relationship Specialty Start Date End Date Nelson Arroyo PA-C [address] [place] [address] PCP - General Physician Electromechanical Technologist - Medical 08/06/18 Salina Doherty MD Internal Medicine 12/01/14 Carrillo Ware APRN SALES SERVICE COORDINATOR [address] [place] [address]12815 Nurse Practitioner Nurse Practitioner 12/16/14 Angelica Jerez NP [place] [address] [address] [place], [place] [address] Nurse Practitioner Nurse Practitioner - Family 07/12/16 Nelson Arroyo PA-C [address] [address], [place] [address] Assigned PCP 07/05/18 07/29/20 Chinyere Barbour Personal Advocate & Liaison (PAL) 01/31/20 04/26/20 Nelson Arroyo PA-C [address] [address] [address] Assigned PCP 07/30/20 Pietro Wills MD [address] [place] [address] Assigned Heart and Vascular Provider 12/14/22 06/26/24 Tank Bucio MD [address], [address] [address] Physician recreation professor 12/01/23 documented as of this encounter
--- OUTSIDE RECORDS SUMMARY | 2024-10-27 10:24 | XMS_ITS | Encounter Summary ---
Author Organization [place] Address [address] [place] [address]. [place] [address] Care Team Providers Care Tombstone Polisher Name Role Phone Salina Doherty MD Unavailable [phone] Carrillo Ware APRN LEAD SYSTEMS ARCHITECT Unavailable SolitarioAngelica golden NP Unavailable [phone] Nelson Arroyo PA-C Unavailable [phone] Nelson Arroyo PA-C Primary Care Provider Chinyere Barbour Unavailable Unavailable Nelson Arroyo PA-C Unavailable Pietro Wills MD Unavailable Tank Bucio MD Unavailable Reason for Visit * Reason Onset Date Comments Refill Request 04/04/2019 Zanaflex, Trazod one, Elavil Encounter Details Date Type Department Care Team (Late st Contact Info) Description 04/04/2019 MyC Refill [address], [address] [place] [address] Nelson Arroyo PA-C [address] [place] [address] Refill Request (Zanaflex, Trazodone, Elavil) [...] CDT Legal Sex Female 3:44 AM HEALTH SCIENCE SPECIALIST Gender Identity Female 10/03/2020 8:33 PM CDT Sexual Orientation Straight 07/01/2018 3: 40 PM HEALTH SCIENCE SPECIALIST documented as of this encounter Miscellaneous [...] 90 days) Apr 14, 2019 3:40 PM HEALTH SCIENCE SPECIALIST Galina Tavarez with Nelson Arroyo PA-C [facility] [address] [place] [address], [facility] [address] [facility] [address] Routing refill request [...] PM ANDREA Tavarez with Nelson Arroyo PA-C [facility] ([facility] [address] [place] [address], [address] [address] Requested Prescriptions Pending Prescriptions Disp [...] in past 12 mos Prescription approved per [facility] Refill Protocol. Maude Singh RN TH SCIENCE SPECIALIST documented in this encounter Plan of Treatment Not on file documented as of this encounter Visit Diagnoses Diagnosis Muscle spasm Spasm of muscle Cervicalgia Persistent insomnia Persistent disorder of initiating or maintaining sleep documented in this encounter Additional Health Concerns Assessment Noted Time PHQ-9 Depression Total Score: 10 019 2:36 PM CDT documented as of this encounter Care Teams Tombstone Polisher Relationship Specialty Start Date End Date Nelson Arroyo PA-C [address] [place] [address] PCP - General Physician Branch Coordinator - Medical 08/06/18 Salina Doherty MD Internal Medicine 12/01/14 Carrillo Ware APRN LEAD SYSTEMS ARCHITECT [address] [place] [address] 214775 Nurse Practitioner Nurse Practitioner 12/16/14 Angelica Jerez NP [address] [address] Nurse Practitioner Nurse Practitioner - Family 07/12/16 Nelson Arroyo PA-C [address] [address] Assigned PCP 07/05/18 07/29/20 Chinyere Barbour Personal Advocate & Liaison (PAL) 01/31/20 04/26/20 Nelson Arroyo PA-C [address] [place] [address] Assigned PCP 07/30/20 Pietro Wills MD [address] [place] [address] Assigned Heart and Vascular Provider 12/14/22 06/26/24 Tank Bucio MD [address], [address] [address] Physician magazine designer 12/01/23 documented as of this encounter
--- OUTSIDE RECORDS SUMMARY | 2024-10-27 10:24 | XMS_ITS | Encounter Summary ---
Author Organization [place] Address [address] [place] [address] Care Team Providers Care Petroleum Geologist Name Role Phone Salina Doherty MD Unavailable [phone] Carrillo Ware APRN BAGGAGEMAN Unavailable SolitarioAngelica golden NP Unavailable [phone] Nelson Arroyo PA-C Unavailable [phone] Nelson Arroyo PA-C Primary Care Provider [phone] Chinyere Barbour Unavailable Unavailable Nelson Arroyo PA-C Unavailable [phone] Pietro Wills MD Unavailable [phone] Tank Bucio MD Unavailable [phone] Encounter Details Date Type Department Care Team (Late st Contact Info) Description 11/12/2019 [facility] [place] [address] [address] Blanca Baker Social History Tobacco [...] PM CDT Legal Sex Female 3:44 AM STEEL ERECTOR Gender Identity Female 10/03/2020 8:33 PM CDT Sexual Orientation Straight 07/01/2018 3: 40 PM STEEL ERECTOR documented as of this encounter Plan of Treatment Not on file documented as of this encounter Visit Diagnoses Not on filedocumented in this encounter Additional Health Concerns Assessment Noted Time PHQ-9 Depression Total Score: 7 09/29/19 20 7:04 AM CDT documented as of this encounter Care Teams Petroleum Geologist Relationship Specialty Start Date End Date Nelson Arroyo PA-C [address] [address] PCP - General Physician Spike Machine Operator - Medical 08/06/18 Salina Doherty MD Internal Medicine 12/01/14 Carrillo Ware APRN BAGGAGEMAN [address] [place] [address] Nurse Practitioner Nurse Practitioner 12/16/14 Angelica Jerez NP [address] [address] Nurse Practitioner Nurse Practitioner - Family 07/12/16 Nelson Arroyo PA-C [address] [address] Assigned PCP 07/05/18 07/29/20 Chinyere Barbour Personal Advocate & Liaison (PAL) 01/31/20 04/26/20 Nelson Arroyo PA-C [address] [address] Assigned PCP 07/30/20 Pietro Wills MD [address] [address] Assigned Heart and Vascular Provider 12/14/22 06/26/24 Tank Bucio MD [address] [facility] 100 [place] [address] Physician manager non profit 12/01/23 documented as of this encounter
--- OUTSIDE RECORDS SUMMARY | 2024-10-27 10:24 | XMS_ITS | Encounter Summary ---
Author Organization [place] Address [address] [place] [address] Care Team Providers Care Escalation Engineer Name Role Phone Salina Doherty MD Unavailable [phone] Carrillo Ware APRN DIRECTOR OF PUPIL PERSONNEL PROGRAM Unavailable Hillary Unger MD Primary Care P rovider [facility] Hospital[facility] NP Unavailable [phone] Nelson Arroyo PA-C Unavailable Hillary Unger MD Unavailable Hillray Unger MD Unavailable Hillary Unger MD Unavailable Nelson Arroyo PA-C Unavailable [phone] Nelson Arroyo PA-C Primary Care Provider Chinyere Barbour Unavailable Unavailable Nelson Arroyo PA-C Unavailable [phone] Pietro Wills MD Unavailable [phone] Tank Bucio MD Unavailable Encounter Details Date Type Department Care Team (Late st Contact Info) Description 06/17/2017 [facility] Medical [facility] Mental Health & Addiction [address] [place] [address] Solitario Angelica Gautam, SENIOR NET DEVELOPER ARCHITECT [address] [place] [address] Social History Tobacco Use Types Packs/Day Years [...] CDT Legal Sex Female 3:44 AM LEAD MANUFACTURING ENGINEER Gender Identity Female 10/03/2020 8:33 PM CDT Sexual Orientation Straight 07/01/2018 3: 40 PM LEAD MANUFACTURING ENGINEER documented as of this encounter Plan of Treatment Not on file documented as of this encounter Visit Diagnoses Not on filedocumented in this encounter Additional Health Concerns Assessment Noted Time PHQ-9 Depression Total Score: 4 04/04/20 17 7:13 AM LEAD MANUFACTURING ENGINEER documented as of this encounter Care Teams Escalation Engineer Relationship Specialty Start Date End Date Hillary Unger MD [address] [place] [address] PCP - General Internal Medicine 08/21/15 08/05/18 Nelson Arroyo PA-C [address] [place] [address] PCP - Assigned PCP 04/12/18 05/02/18 Hillary Unger MD [address] [place] [address] PCP - Assigned PCP 02/01/18 04/11/18 Hillary Unger MD [address] [place] [address] PCP - Assigned PCP 05/03/18 07/07/18 Nelson Arroyo PA-C [address] [place] [address] PCP - General Physician Warehouse Stock Clerk - Medical 08/06/18 Salina Doherty MD Internal Medicine 12/01/14 Carrillo Ware APRN DIRECTOR OF PUPIL PERSONNEL PROGRAM [address] [place] [address] Nurse Practitioner Nurse Practitioner 12/16/14 Angelica Jerez SENIOR NET DEVELOPER ARCHITECT [facility] [address] [place], [place] 8[address] Nurse Practitioner Nurse Practitioner - Family 07/12/16 Hillary Unger MD [address] [place] [address] Assigned PCP 05/03/18 07/18/18 Nelson Arroyo PA-C [address] [place] [address] Assigned PCP 07/05/18 07/29/20 Chinyere Barbour Personal Advocate & Liaison (PAL) 01/31/20 04/26/20 Nelson Arroyo PA-C [address] [place] [address] Assigned PCP 07/30/20 Pietro Wills MD [address] [address] Assigned Heart and Vascular Provider 12/14/22 06/26/24 Tank Bucio MD [address], [facility] [address] [place] [address] Physician master dyer 12/01/23 documented as of this encounter
--- OUTSIDE RECORDS SUMMARY | 2024-10-27 10:24 | XMS_ITS | Encounter Summary ---
Author Organization [place] Address [address] [place] [address] Care Team Providers Care Motorcycle Police Officer Name Role Phone Salina Doherty MD Unavailable [phone] Carrillo Ware APRN MECHANICAL ENGINEERING SPECIALIST Unavailable SolitarioAngelica golden NP Unavailable [phone] Nelson Arroyo PA-C Unavailable [phone] Nelson Arroyo PA-C Primary Care Provider [phone] Chinyere Barbour Unavailable Unavailable Nelson Arroyo PA-C Unavailable [phone] Pietro Wills MD Unavailable [phone] Tank Bucio MD Unavailable [phone] Encounter Details Date Type Department Care Team (Late st Contact Info) Description 09/20/2019 MyC Medical Advice [address] [address] Blanca Baker Social History Tobacco [...] PM CDT Legal Sex Female 3:44 AM ORDER TAKER Gender Identity Female 10/03/2020 8:33 PM CDT Sexual Orientation Straight 07/01/2018 3: 40 PM ORDER TAKER documented as of this encounter Plan of Treatment Not on file documented as of this encounter Visit Diagnoses Not on filedocumented in this encounter Additional Health Concerns Assessment Noted Time PHQ-9 Depression Total Score: 7 09/29/19 20 7:04 AM CDT documented as of this encounter Care Teams Motorcycle Police Officer Relationship Specialty Start Date End Date Nelson Arroyo PA-C [address] [address] PCP - General Physician Crate Opener - Medical 08/06/18 Salina Doherty MD Internal Medicine 12/01/14 Carrillo Ware APRN MECHANICAL ENGINEERING SPECIALIST [address] [place] [address] Nurse Practitioner Nurse Practitioner 12/16/14 Angelica Jerez NP [address] [address] Nurse Practitioner Nurse Practitioner - Family 07/12/16 Nelson Arroyo PA-C [address] [address] Assigned PCP 07/05/18 07/29/20 Chinyere Barbour Personal Advocate & Liaison (PAL) 01/31/20 04/26/20 Nelson Arroyo PA-C [address] [address] Assigned PCP 07/30/20 Pietro Wills MD [address] [address] Assigned Heart and Vascular Provider 12/14/22 06/26/24 Tank Bucio MD [address] [facility] 100 [place] [address] Physician fountain manager 12/01/23 documented as of this encounter
--- OUTSIDE RECORDS SUMMARY | 2024-10-27 10:24 | XMS_ITS | Encounter Summary ---
Author Organization [place] Address [address] [place] [address]. [place] [address] Care Team Providers Care Fmd Teacher Name Role Phone Salina Doherty MD Unavailable [phone] Carrillo Ware APRN DRY LUMBER GRADER Unavailable SolitarioAngelica golden NP Unavailable [phone] Nelson Arroyo PA-C Unavailable [phone] Nelson Arroyo PA-C Primary Care Provider Chinyere Barbour Unavailable Unavailable Nelson Arroyo PA-C Unavailable Pietro Wills MD Unavailable Tank Bucio MD Unavailable Reason for Visit * Reason Onset Date Comments Medication Refill 06/17/2019 Seroquel 300mg Encounter Details Date Type Department Care Team (Late st Contact Info) Description 06/14/2019 Refill [facility] [address] [facility], [address] [place] [address] [place] [address] [place] [address] Medication Refill (Seroquel 300mg) Social History [...] PM CDT Legal Sex Female 3:44 AM BASKETBALLS AND FOOTBALLS REVERSER Gender Identity Female 10/03/2020 8:33 PM CDT Sexual Orientation Straight 07/01/2018 3: 40 PM BASKETBALLS AND FOOTBALLS REVERSER documented as of this encounter Miscellaneous Notes [...] 90 days) Jun 30, 2019 3:00 PM BASKETBALLS AND FOOTBALLS REVERSER Galina Bellamy with Nelson Arroyo PA-C [facility] ([facility]) [address] [place] [address], [address] [address] Requested Prescriptions Pending Prescriptions Disp [...] & Orders section of the refill encounter. ETBALLS AND FOOTBALLS REVERSER documented in this encounter Plan of Treatment Not on file documented as of this encounter Visit Diagnoses Diagnosis Generalized anxiety disorder Major depressive disorder, recurrent episode, moderate (H) Major depressive disorder, recurrent episode, moderate documented in this encounter Additional Health Concerns Assessment Noted Time PHQ-9 Depression Total Score: 10 019 2:36 PM CDT documented as of this encounter Care Teams Fmd Teacher Relationship Specialty Start Date End Date Nelson Arroyo PA-C [address] [place] [address] PCP - General Physician Heel Seat Sander - Medical 08/06/18 Salina Doherty MD Internal Medicine 12/01/14 Carrillo Ware APRN DRY LUMBER GRADER [address] [place] [address] Nurse Practitioner Nurse Practitioner 12/16/14 Angelica Jerez MAINTENANCE SCHEDULER [facility] [address] [place] [address] Nurse Practitioner Nurse Practitioner - Family 07/12/16 Nelson Arroyo PA-C [address] [place] [address] Assigned PCP 07/05/18 07/29/20 Chinyere Barbour Personal Advocate & Liaison (PAL) 01/31/20 04/26/20 Nelson Arroyo PA-C [address] [place] [address] Assigned PCP 07/30/20 Pietro Wills MD [address] [place] [address] Assigned Heart and Vascular Provider 12/14/22 06/26/24 Tank Bucio MD [address] [facility] 100 [place] [address] Physician planer operator / grader 12/01/23 documented as of this encounter
--- OUTSIDE RECORDS SUMMARY | 2024-10-27 10:24 | XMS_ITS | Encounter Summary ---
Author Organization [place] Address [address] [place] [address]. [place] [address] Care Team Providers Care Electrical Maintenance Worker Name Role Phone Salina Doherty MD Unavailable Carrillo Ware APRN PARARESCUE CRAFTSMAN Unavailable SolitarioAngelica golden NP Unavailable [phone] Nelson Arroyo PA-C Primary Care Provider [phone] Nelson Arroyo PA-C Unavailable [phone] Pietro Wills MD Unavailable [phone] Tank Bucio MD Unavailable [phone] Reason for Visit * Reason Comments Medication Refill Encounter Details Date Type Department Care Team (Late st Contact Info) Description 05/29/2022 Refill [facility] [address] [place] [address] Nelson Arroyo PA-C [address] [place] [address] Medication Refill Social History Tobacco [...] CDT Legal Sex Female 3:44 AM PHYSICIAN COMPENSATION ANALYST Gender Identity Female 10/03/2020 8:33 PM CDT Sexual Orientation Straight 07/01/2018 3: 40 PM PHYSICIAN COMPENSATION ANALYST documented as of this encounter Miscellaneous Notes * Telephone Encounter - Amanda Unger - 05/29/2022 3:54 PM CST LMTCB Amanda Unger Windows Migration Technician ICIAN COMPENSATION ANALYST * Telephone Encounter - Nelson Arroyo PA-C - 05/29/2022 3:50 PM PHYSICIAN COMPENSATION ANALYST I think she is going to [facility] now. She will need to contact them for refill. Nelson ICIAN COMPENSATION ANALYST * Telephone Encounter - Tiny Carrillo RN - 05/29/2022 12:14 PM PHYSICIAN COMPENSATION ANALYST Routing refill request to provider for review/approval because: Drug not on the [facility] refill protocol ICIAN COMPENSATION ANALYST documented in this encounter Plan of Treatment Not on file documented as of this encounter Visit Diagnoses Diagnosis Muscle spasm Spasm of muscle documented in this encounter Additional Health Concerns Assessment Noted Time PHQ-9 Depression Total Score: 7 10/23/19 22 11:44 AM CDT documented as of this encounter Care Teams Electrical Maintenance Worker Relationship Specialty Start Date End Date Nelson Arroyo PA-C [address] [address] PCP - General Physician Programmer Analyst Health It - Medical 08/06/18 Salina Doherty MD Internal Medicine 12/01/14 Carrillo Ware APRN PARARESCUE CRAFTSMAN [address] [place] [address] Nurse Practitioner Nurse Practitioner 12/16/14 Angelica Jerez NP [facility] [address] [place] [address] Nurse Practitioner Nurse Practitioner - Family 07/12/16 Nelson Arroyo PA-C [address] [place] [address] Assigned PCP 07/30/20 Pietro Wills MD [address] [place] [address] Assigned Heart and Vascular Provider 12/14/22 06/26/24 Tank Bucio MD [address], [address] [address] Physician roller picker 12/01/23 documented as of this encounter
--- OUTSIDE RECORDS SUMMARY | 2024-10-27 10:24 | XMS_ITS | Encounter Summary ---
Author Organization [place] Address [address] [place] [address]. [place] [address] Care Team Providers Care Chisel Trimmer Name Role Phone Salina Doherty MD Unavailable [phone] Carrillo Ware APRN NUTRITION SERVICES WORKER Unavailable SolitarioAngelica golden NP Unavailable [phone] Nelson Arroyo PA-C Unavailable [phone] Nelson Arroyo PA-C Primary Care Provider Chinyere Barbour Unavailable Unavailable Nelson Arroyo PA-C Unavailable Pietro Wills MD Unavailable [phone] Tank Bucio MD Unavailable [phone] Encounter Details Date Type Department Care Team (Late st Contact Info) Description 03/31/2019 My[facility] Medical Advice [address], [address] [place] [address] Nelson Arroyo PA-C [address] [place] [address] Social History Tobacco Use Types [...] PM CDT Legal Sex Female 3:44 AM ACID DUMPER Gender Identity Female 10/03/2020 8:33 PM CDT Sexual Orientation Straight 07/01/2018 3: 40 PM ACID DUMPER documented as of this encounter Plan of Treatment Not on file documented as of this encounter Visit Diagnoses Not on filedocumented in this encounter Additional Health Concerns Assessment Noted Time PHQ-9 Depression Total Score: 10 019 2:36 PM CDT documented as of this encounter Care Teams Chisel Trimmer Relationship Specialty Start Date End Date Nelson Arroyo PA-C [address] [place] [address] PCP - General Physician Magnetic Healer - Medical 08/06/18 Salina Doherty MD Internal Medicine 12/01/14 Carrillo Ware APRN NUTRITION SERVICES WORKER [address] [place] [address] Nurse Practitioner Nurse Practitioner 12/16/14 Angelica Jerez NP [address] [address] Nurse Practitioner Nurse Practitioner - Family 07/12/16 Nelson Arroyo PA-C [address] [place] [address] Assigned PCP 07/05/18 07/29/20 Chinyere Barbour Personal Advocate & Liaison (PAL) 01/31/20 04/26/20 Nelson Arroyo PA-C [address] [place] [address] Assigned PCP 07/30/20 Pietro Wills MD [address] [place] [address] Assigned Heart and Vascular Provider 12/14/22 06/26/24 Tank Bucio MD [address] [facility], [address] [address] Physician color drum worker 12/01/23 documented as of this encounter
--- OUTSIDE RECORDS SUMMARY | 2024-10-27 10:24 | XMS_ITS | Encounter Summary ---
Author Organization [place] Address [address] [place] [address]. [place] [address] Care Team Providers Care Eyelet Machine Operator Name Role Phone Salina Doherty MD Unavailable [phone] Carrillo Ware APRN DIRECTOR OF CLOUD SERVICES Unavailable SolitarioAngelica golden NP Unavailable [phone] Nelson Arroyo PA-C Primary Care Provider [phone] Nelson Arroyo PA-C Unavailable Pietro [place]ills MD Unavailable Tank Bucio MD Unavailable Reason for Visit * Reason Comments Medication Refill Encounter Details Date Type Department Care Team (Late st Contact Info) Description 06/15/2022 Refill [facility] [address] [place] [address] Nelson Arroyo PA-C [address] [place] [address] Medication Refill Social History Tobacco [...] PM CDT Legal Sex Female 3:44 AM CONTINUING EDUCATION INSTRUCTOR Gender Identity Female 10/03/2020 8:33 PM CDT Sexual Orientation Straight 07/01/2018 3: 40 PM CONTINUING EDUCATION INSTRUCTOR documented as of this encounter Miscellaneous Notes * Telephone Encounter - Nelson Arroyo PA-C - 06/19/2022 10:50 AM CONTINUING EDUCATION INSTRUCTOR I think she established care elsewhere. Nelson INUING EDUCATION INSTRUCTOR * Telephone Encounter - Ashely Naylor RN - 06/16/2022 3:17 PM CST Routing refill request to provider for review/approval because: Drug not on the [facility] refill protocol INUING EDUCATION INSTRUCTOR documented in this encounter Plan of Treatment Not on file documented as of this encounter Visit Diagnoses Diagnosis Muscle spasm Spasm of muscle documented in this encounter Additional Health Concerns Assessment Noted Time PHQ-9 Depression Total Score: 7 10/23/19 22 11:44 AM CDT documented as of this encounter Care Teams Eyelet Machine Operator Relationship Specialty Start Date End Date Nelson Arroyo PA-C [address] [place] [address] PCP - General Physician Copyright Clerk - Medical 08/06/18 Salina Doherty MD Internal Medicine 12/01/14 Carrillo Ware APRN DIRECTOR OF CLOUD SERVICES [address] [place] [address] Nurse Practitioner Nurse Practitioner 12/16/14 Angelica Jerez NP [address] [place] [address] Nurse Practitioner Nurse Practitioner - Family 07/12/16 Nelson Arroyo PA-C [address] [place] [address] Assigned PCP 07/30/20 Pietro Wills MD [address] [place] [address] Assigned Heart and Vascular Provider 12/14/22 06/26/24 Tank Bucio MD [address] [facility] [address] [place] [address] Physician mergers and acquisitions banker 12/01/23 documented as of this encounter
--- OUTSIDE RECORDS SUMMARY | 2024-10-27 10:24 | XMS_ITS | Encounter Summary ---
Author Organization [facility] Address [address] [place] [address]. [place] [address] Care Team Providers Care Underground Bolting Machine Operator Name Role Phone Salina Doherty MD Unavailable [phone] Carrillo Ware APRN CULTURAL ANTHROPOLOGY PROFESSOR Unavailable SolitarioAngelica golden NP Unavailable [phone] Nelson Arroyo PA-C Unavailable Nelson Arroyo PA-C Primary Care Provider [phone] Chinyere Barbour Unavailable Unavailable Nelson Arroyo PA-C Unavailable Pietro Wills MD Unavailable [phone] Tank Bucio MD Unavailable Reason for Visit * Reason Onset Date Comments MyChart Communication 10/11/2019 Encounter Details Date Type Department Care Team (Late st Contact Info) Description 10/11/2019 MyC Medical Advice [facility] [address] [facility], [address] [place] [address] Nelson Arroyo PA-C [address] [place] [address] MyChart Communication Social History Tobacco [...] PM CDT Legal Sex Female 3:44 AM PLATING EQUIPMENT TENDER Gender Identity Female 10/03/2020 8:33 PM CDT Sexual Orientation Straight 07/01/2018 3: 40 PM PLATING EQUIPMENT TENDER documented as of this encounter Miscellaneous Notes * Telephone Encounter - Tarik Jaramillo RN - 10/12/2019 2:11 PM CDT [employer] message sent to patient per below. Tarik [...] documented as of this encounter Care Teams Underground Bolting Machine Operator Relationship Specialty Start Date End Date Nelson Arroyo PA-C [address] [address] PCP - General Physician Top Lift Compresser - Medical 08/06/18 Salina Doherty MD Internal Medicine 12/01/14 Carrillo Ware APRN CULTURAL ANTHROPOLOGY PROFESSOR [address] [place] [address] Nurse Practitioner Nurse Practitioner 12/16/14 Angelica Jerez MINING MACHINERY ASSEMBLER [facility] [address] [place] [address] Nurse Practitioner Nurse Practitioner - Family 07/12/16 Nelson Arroyo PA-C [address] [place] [address] Assigned PCP 07/05/18 07/29/20 Chinyere Barbour Personal Advocate & Liaison (PAL) 01/31/20 04/26/20 Nelson Arroyo PA-C [address] [place] [address] Assigned PCP 07/30/20 Pietro Wills MD [address] [place] [address] Assigned Heart and Vascular Provider 12/14/22 06/26/24 Tank Bucio MD [address], [facility] [address] [place] [address] Physician cross cut saw operator 12/01/23 documented as of this encounter
--- OUTSIDE RECORDS SUMMARY | 2024-10-27 10:24 | XMS_ITS | Encounter Summary ---
Author Organization [facility] Address [address] [place] [address]. [place] [address] Care Team Providers Care Manager Clinical Applications Name Role Phone Salina Doherty MD Unavailable [phone] Carrillo Ware APRN INSURANCE REPRESENTATIVE Unavailable SolitarioAngelica golden NP Unavailable [phone] Nelson Arroyo PA-C Unavailable Nelson Arroyo PA-C Primary Care Provider Chinyere Barbour Unavailable Unavailable Nelson Arroyo PA-C Unavailable Pietro Wills MD Unavailable [phone] Tank Bucio MD Unavailable Reason for Visit * Reason Onset Date Comments Refill Request 06/14/2019 Tizanidine 4mg Encounter Details Date Type Department Care Team (Late st Contact Info) Description 06/14/2019 MyC Refill [place] [id number] [facility], [address] [place] [address] Nelson Arroyo PA-C [address] [place] [address] Refill Request (Tizanidine 4mg) Social [...] PM CDT Legal Sex Female 3:44 AM MILLROOM SUPERVISOR Gender Identity Female 10/03/2020 8:33 PM CDT Sexual Orientation Straight 07/01/2018 3: 40 PM MILLROOM SUPERVISOR documented as of this encounter Miscellaneous Notes * Telephone Encounter - Maude Singh RN - 06/17/2019 1:38 PM CST Tizanidine 4mg Last Written Prescription Date: 04/06/2019 Last Fill Quantity: 120, # refills: 1 Last Office Visit: 02/04/2019 Future Office visit: Next 5 appointments (look out 90 days) Jun 30, 2019 3:00 PM MILLROOM SUPERVISOR MyChart Short with Nelson Arroyo PA-[facility] [address] [place] [address], [address] [address] Routing refill request to provider for review/approval because: Drug not on the [facility] or [facility] refill protocol or controlled substance. Maude Singh RN ROOM SUPERVISOR documented in this encounter Plan of Treatment Not on file documented as of this encounter Visit Diagnoses Diagnosis Persistent insomnia Persistent disorder of initiating or maintaining sleep Muscle spasm Spasm of muscle Cervicalgia documented in this encounter Additional Health Concerns Assessment Noted Time PHQ-9 Depression Total Score: 10 019 2:36 PM CDT documented as of this encounter Care Teams Manager Clinical Applications Relationship Specialty Start Date End Date Nelson Arroyo PA-C [address] [place] [address] PCP - General Physician Visual Associate - Medical 08/06/18 Salina Doherty MD Internal Medicine 12/01/14 Carrillo Ware APRN CNP [address] [place] [address] Nurse Practitioner Nurse Practitioner 12/16/14 nAgelica Jerez NP [facility] [address] [place] [address] Nurse Practitioner Nurse Practitioner - Family 07/12/16 Nelson Arroyo PA-C [address] [place] [address] Assigned PCP 07/05/18 07/29/20 Chinyere Barbour Personal Advocate & Liaison (PAL) 01/31/20 04/26/20 Nelson Arroyo PA-C [address] [place] [address] Assigned PCP 07/30/20 Pietro Wills MD [address] [place] [address] Assigned Heart and Vascular Provider 12/14/22 06/26/24 Tank Bucio MD [address], [facility] [address] [place] [address] Physician bill checker 12/01/23 documented as of this encounter
--- OUTSIDE RECORDS SUMMARY | 2024-10-27 10:24 | XMS_ITS | Encounter Summary ---
Author Organization [facility] Address [address] [place] [address] Care Team Providers Care Journal Box Inspector Name Role Phone Salina Doherty MD Unavailable [phone] Kavon Cadena MD Unavailable [phone] Carrillo Ware APRN CVICU NURSE Unavailable Salina Doherty MD Primary Care Provider [phone] Hillary Unger MD Primary Care P rovider Nelson Arroyo PA-C Primary Care Provider [phone] Hillary Unger MD Primary Care P rovider Angelica Jerez ON SITE WASTEWATER SYSTEMS TECHNICIAN Unavailable [phone] Nelson Arroyo PA-C Unavailable [phone] Hillary Unger MD Unavailable Hillary Unger MD Unavailable Hillary Unger MD Unavailable Nelson Arroyo PA-C Unavailable [phone] Nelson Arroyo PA-C Primary Care Provider [phone] Chinyere Barbour Unavailable Unavailable Nelson Arroyo PA-C Unavailable [phone] Pietro Wills MD Unavailable [phone] Tank Bucio MD Unavailable Encounter Details Date Type Department Care Team (Late st Contact Info) Description 01/12/2012 [facility] Extended Documentation [facility] [address] [place] [address] CiraCarin nam, SATELLITE TV TECHNICIAN INSTALLER, MAGNETIC GRINDER [place] [address] Social History Tobacco Use Types Packs/Day Years Used Date Smoking Tobacco: Never Alcohol Use Standard Drinks/Week Comments Yes 0 (1 standard drink = 0.6 oz pur e alcohol) every two weeks Comments No Sex and Gender Information Value Date Recorded Sex Assigned at Female 10/03/2020 8:33 PM CDT Legal Sex Female 3:44 AM PLASTIC MOLDING OPERATOR Gender Identity Female 10/03/2020 8:33 PM CDT Sexual Orientation Straight 07/01/2018 3: 40 PM PLASTIC MOLDING OPERATOR documented as of this encounter Plan of Treatment Not on file documented as of this encounter Visit Diagnoses Not on filedocumented in this encounter Care Teams Journal Box Inspector Relationship Specialty Start Date End Date Salina Doherty MD PCP - General Internal Medicine 12/27/14 01/04/15 Hillary Unger MD [address] [place] [address] PCP - General Internal Medicine 01/05/15 08/02/15 Nelson Arroyo PA-C [address] [place] [address] PCP - General Physician Wealth Management Advisor - Medical 08/03/15 08/20/15 Hillary Unger MD [address] [place] [address] PCP - General Internal Medicine 08/21/15 08/05/18 Nelson Arroyo PA-C [address] [place] [address] PCP - Assigned PCP 04/12/18 05/02/18 Hillary Unger MD [address] [place] [address] PCP - Assigned PCP 02/01/18 04/11/18 Hillary Unger MD [address] [place] [address] PCP - Assigned PCP 05/03/18 07/07/18 Nelson Arroyo PA-C [address] [place] [address] PCP - General Physician Wealth Management Advisor - Medical 08/06/18 Salina Doherty MD Internal Medicine 12/01/14 Kavon Cadena MD Resident Rheumatology 12/01/14 12/15/14 Carrillo Ware APRN CVICU NURSE [address] [place] [address] Nurse Practitioner Nurse Practitioner 12/16/14 Angelica Jerez NP [facility] [address] [place], [place] [address] Nurse Practitioner Nurse Practitioner - Family 07/12/16 Hillary Unger MD [address] [place] [address] Assigned PCP 05/03/18 07/18/18 Nelson Arroyo PA-C [address] [place] [address] Assigned PCP 07/05/18 07/29/20 Chinyere Barbour Personal Advocate & Liaison (PAL) 01/31/20 04/26/20 Nelson Arroyo PA-C [address] [place] [address] Assigned PCP 07/30/20 Pietro Wills MD [address] [place] [address] Assigned Heart and Vascular Provider 12/14/22 06/26/24 Tank Bucio MD [address], [facility] [address] [place] [address] Physician ict support and test engineers 12/01/23 documented as of this encounter
--- OUTSIDE RECORDS SUMMARY | 2024-10-27 10:24 | XMS_ITS | Encounter Summary ---
Author Organization [facility] Address [address] [place] [address]. [place] [address] Care Team Providers Care Daylight Driller Name Role Phone Salina Doherty MD Unavailable [phone] Carrillo Ware APRN FIRE ALARM TECHNICIAN Unavailable [phone] SolitarioAngelica golden NP Unavailable [phone] Nelson Arroyo PA-C Unavailable Nelson Arroyo PA-C Primary Care Provider [phone] Chinyere Barbour Unavailable Unavailable Nelson Arroyo PA-C Unavailable Pietro Wills MD Unavailable [phone] Tank Bucio MD Unavailable Reason for Visit * Reason Onset Date Comments Refill Request 04/05/2019 Encounter Details Date Type Department Care Team (Late st Contact Info) Description 04/05/2019 MyC Pietro [facility] [address] [place] [address], [address] [place] [address] Nelson Arroyo PA-C [address] [place] [address] Refill Request Social History Tobacco [...] PM CDT Legal Sex Female 3:44 AM DIRECT MAIL MARKETER Gender Identity Female 10/03/2020 8:33 PM CDT Sexual Orientation Straight 07/01/2018 3: 40 PM DIRECT MAIL MARKETER documented as of this encounter Plan of Treatment Not on file documented as of this encounter Visit Diagnoses Diagnosis Muscle spasm Spasm of muscle Cervicalgia documented in this encounter Additional Health Concerns Assessment Noted Time PHQ-9 Depression Total Score: 10 019 2:36 PM CDT documented as of this encounter Care Teams Daylight Driller Relationship Specialty Start Date End Date Nelson Arroyo PA-C [address] [place], [place] [address] PCP - General Physician Mds Coordinator - Medical 08/06/18 Salina Doherty MD Internal Medicine 12/01/14 Carrillo Ware APRN FIRE ALARM TECHNICIAN [address] [place] [address] Nurse Practitioner Nurse Practitioner 12/16/14 Angelica Jerez NP [place] [facility] [address] [place], [place] [address] Nurse Practitioner Nurse Practitioner - Family 07/12/16 Nelson Arroyo PA-C [address] [place] [address] Assigned PCP 07/05/18 07/29/20 Chinyere Barbour Personal Advocate & Liaison (PAL) 01/31/20 04/26/20 Nelson Arroyo PA-C [address] [place] [address] Assigned PCP 07/30/20 Pietro Wills MD [address] [address] Assigned Heart and Vascular Provider 12/14/22 06/26/24 Tank Bucio MD [address] [facility], [address] [address] Physician hearing aid repairer 12/01/23 documented as of this encounter
--- OUTSIDE RECORDS SUMMARY | 2024-10-27 10:24 | XMS_ITS | Encounter Summary ---
Author Organization [facility] Address [address] [place] [address]. [place] [address] Care Team Providers Care Guest Request Runner Name Role Phone Salina Doherty MD Unavailable [phone] Carrillo Ware APRN RIDER TICKET WORKER Unavailable SolitarioAngelica golden NP Unavailable [phone] Nelson Arroyo PA-C Unavailable Nelson Arroyo PA-C Primary Care Provider Chinyere Barbour Unavailable Unavailable Nelson Arroyo PA-C Unavailable [phone] Pietro Wills MD Unavailable Tank Bucio MD Unavailable Reason for Visit * Reason Comments Medication Refill Encounter Details Date Type Department Care Team (Late st Contact Info) Description 04/21/[address], [address] [place] [address] [place] [address] [place] [address] Medication Refill Social History Tobacco [...] CDT Legal Sex Female 3:44 AM RN UTILIZATION MANAGEMENT UM Gender Identity Female 10/03/2020 8:33 PM CDT Sexual Orientation Straight 07/01/2018 3: 40 PM RN UTILIZATION MANAGEMENT UM documented as of this encounter Miscellaneous Notes * Telephone Encounter - Nelson Arroyo PA-C - 04/23/2019 9:18 AM RN UTILIZATION MANAGEMENT UM I will fill. When she was in for appointment in Feb we discussed that she needs to come back in to complete PAP part of physical that we did not do. Please remind her of this. UTILIZATION MANAGEMENT UM * Telephone Encounter - Lexi Reina RN [...] review/approval because: Drug not on the [facility] refill protocol UTILIZATION MANAGEMENT UM documented in this encounter Plan of Treatment Not on file documented as of this encounter Visit Diagnoses Diagnosis Generalized anxiety disorder documented in this encounter Additional Health Concerns Assessment Noted Time PHQ-9 Depression Total Score: 10 019 2:36 PM CDT documented as of this encounter Care Teams Guest Request Runner Relationship Specialty Start Date End Date Nelson Arroyo PA-C [address] [place] [address] PCP - General Physician Weaving Machine Operator - Medical 08/06/18 Salina Doherty MD Internal Medicine 12/01/14 Carrillo Ware APRN RIDER TICKET WORKER [address] [place] [address] Nurse Practitioner Nurse Practitioner 12/16/14 Angelica Jerez NP [facility] [address] [place] [address] Nurse Practitioner Nurse Practitioner - Family 07/12/16 Nelson Arroyo PA-C [address] [place] [address] Assigned PCP 07/05/18 07/29/20 Chinyere Barbour Personal Advocate & Liaison (PAL) 01/31/20 04/26/20 Nelson Arroyo PA-C [address] [place] [address] Assigned PCP 07/30/20 Pietro Wills MD [address] [place] [address] Assigned Heart and Vascular Provider 12/14/22 06/26/24 Tank Bucio MD [address], [address] [address] Physician synthetic filament spinner 12/01/23 documented as of this encounter
--- OUTSIDE RECORDS SUMMARY | 2024-10-27 10:24 | XMS_ITS | Encounter Summary ---
Author Organization [facility] Address [address] [place] [address]. [place] [address] Care Team Providers Care Agricultural Extension Specialist Name Role Phone Salina Doherty MD Unavailable Carrillo Ware APRN AERIAL GUNNER SUPERINTENDENT Unavailable SolitarioAngelica golden NP Unavailable [phone] Nelson Arroyo PA-C Unavailable Nelson Arroyo PA-C Primary Care Provider [phone] Chinyere Barbour Unavailable Unavailable Nelson Arroyo PA-C Unavailable Pietro Wills MD Unavailable [phone] Tank Buico MD Unavailable [phone] Encounter Details Date Type Department Care Team (Late st Contact Info) Description 04/04/2019 MyC Medical Advice [address], [address] [place] [address] Nelson Arroyo PA-C [address] [place] [address] Social History Tobacco Use Types [...] PM CDT Legal Sex Female 3:44 AM EXTENSION EDGER Gender Identity Female 10/03/2020 8:33 PM CDT Sexual Orientation Straight 07/01/2018 3: 40 PM EXTENSION EDGER documented as of this encounter Plan of Treatment Not on file documented as of this encounter Visit Diagnoses Not on filedocumented in this encounter Additional Health Concerns Assessment Noted Time PHQ-9 Depression Total Score: 10 019 2:36 PM CDT documented as of this encounter Care Teams Agricultural Extension Specialist Relationship Specialty Start Date End Date Nelson Arroyo PA-C [address] [place] [address] PCP - General Physician Group Home Manager - Medical 08/06/18 Salina Doherty MD Internal Medicine 12/01/14 Carrillo Ware APRN AERIAL GUNNER SUPERINTENDENT [address] [place] [address] Nurse Practitioner Nurse Practitioner 12/16/14 Angelica Jerez NP [address] [address] Nurse Practitioner Nurse Practitioner - Family 07/12/16 Nelson Arroyo PA-C [address] [place] [address] Assigned PCP 07/05/18 07/29/20 Chinyere Barbour Personal Advocate & Liaison (PAL) 01/31/20 04/26/20 Nelson Arroyo PA-C [address] [place] [address] Assigned PCP 07/30/20 Pietro Wills MD [address] [place] [address] Assigned Heart and Vascular Provider 12/14/22 06/26/24 Tank Bucio MD [address] [facility], [address] [address] Physician judo instructor 12/01/23 documented as of this encounter
--- OUTSIDE RECORDS SUMMARY | 2024-10-27 10:24 | XMS_ITS | Encounter Summary ---
Author Organization [facility] Address [address] [place] [address]. [place] [address] Care Team Providers Care Wastewater Treatment Operator Name Role Phone Salina Doherty MD Unavailable Carrillo Ware APRN PERSONAL COMPUTER NETWORK ANALYST Unavailable [phone] SolitarioAngelica golden NP Unavailable [phone] Nelson Arroyo PA-C Primary Care Provider Nelson Arroyo PA-C Unavailable [phone] Pietro Wills MD Unavailable [phone] Tank Bucio MD Unavailable [phone] Encounter Details Date Type Department Care Team (Late st Contact Info) Description 06/26/2022 MyC Medical Advice [facility] [address] [place] [address] Nelson Arroyo PA-C [address] [place] [address] Muscle spasm; Palpitations Social History [...] PM CDT Legal Sex Female 3:44 AM CURED MEAT PACKING SUPERVISOR Gender Identity Female 10/03/2020 8:33 PM CDT Sexual Orientation Straight 07/01/2018 3: 40 PM CURED MEAT PACKING SUPERVISOR documented as of this encounter Miscellaneous Notes * Telephone Encounter - Amanda Unger - 06/28/2022 7:52 AM CST Patient is scheduled for 08/15 with PCP D MEAT PACKING SUPERVISOR * Telephone Encounter - Nelson Arroyo PA-C - 06/27/2022 2:51 PM CURED MEAT PACKING SUPERVISOR I [facility] If I'm wrong I apologize. I do need to seeher for an appointment however as it has been a long while! Nelson D MEAT PACKING SUPERVISOR * Telephone Encounter - Ashely Naylor RN - 06/27/2022 7:41 AM CST Routing refill request to provider for review/approval because: Drug not on the [facility] refill protocol D MEAT PACKING SUPERVISOR documented in this encounter Plan of Treatment Not on file documented as of this encounter Visit Diagnoses Diagnosis Muscle spasm Spasm of muscle Palpitations documented in this encounter Additional Health Concerns Assessment Noted Time PHQ-9 Depression Total Score: 7 10/23/19 22 11:44 AM CDT documented as of this encounter Care Teams Wastewater Treatment Operator Relationship Specialty Start Date End Date Nelson Arroyo PA-C [address] [address] PCP - General Physician Financial Processing Clerk - Medical 08/06/18 Salina Doherty MD Internal Medicine 12/01/14 Carrillo Ware APRN PERSONAL COMPUTER NETWORK ANALYST [address] [place] [address] Nurse Practitioner Nurse Practitioner 12/16/14 Angelica Jerez NP [facility] [address] [place], [place] [address] Nurse Practitioner Nurse Practitioner - Family 07/12/16 Nelson Arroyo PA-C [address] [place] [address] Assigned PCP 07/30/20 Pietro Wills MD [address] [place] [address] Assigned Heart and Vascular Provider 12/14/22 06/26/24 Tank Bucio MD [address] [facility], [address] [address] Physician aquatics instructor 12/01/23 documented as of this encounter
--- OUTSIDE RECORDS SUMMARY | 2024-10-27 10:24 | XMS_ITS | Encounter Summary ---
Author Organization [facility] Address [address] [place] [address] Care Team Providers Care Desktop Support Consultant Name Role Phone Salina Doherty MD Unavailable [phone] Carrillo Ware APRN REPAIRER GENERAL Unavailable SolitarioAngelica golden NP Unavailable [phone] Nelson Arroyo PA-C Primary Care Provider [phone] Nelson Arroyo PA-C Unavailable [phone] Pietro Wills MD Unavailable [phone] Tank Bucio MD Unavailable Encounter Details Date Type Department Care Team (Late st Contact Info) Description 04/23/2022 [facility] Medical Advice [facility] [address] [facility] [address] [place] [address] Yodit Alexis, [facility] [address] [place] [address] Social History Tobacco Use Types [...] PM CDT Legal Sex Female 3:44 AM PUTTY AND PATCH WORKER Gender Identity Female 10/03/2020 8:33 PM CDT Sexual Orientation Straight 07/01/2018 3: 40 PM PUTTY AND PATCH WORKER documented as of this encounter Plan of Treatment Not on file documented as of this encounter Visit Diagnoses Not on filedocumented in this encounter Additional Health Concerns Assessment Noted Time PHQ-9 Depression Total Score: 7 10/23/19 22 11:44 AM CDT documented as of this encounter Care Teams Desktop Support Consultant Relationship Specialty Start Date End Date Nelson Arroyo PA-C [address] [address] PCP - General Physician Dental Cream Maker - Medical 08/06/18 Salina Doherty MD Internal Medicine 12/01/14 Carrillo Ware APRN REPAIRER GENERAL [address] [place] [address] Nurse Practitioner Nurse Practitioner 12/16/14 Angelica Jerez NP [address] [address]28[address] Nurse Practitioner Nurse Practitioner - Family 07/12/16 Nelson Arroyo PA-C [address] [address] Assigned PCP 07/30/20 Pietro Wills MD [address] [address] Assigned Heart and Vascular Provider 12/14/22 06/26/24 Tank Bucio MD [address] [facility] [place] [facility], [facility] [address] [place] [address] Physician vp product 12/01/23 documented as of this encounter
--- OUTSIDE RECORDS SUMMARY | 2024-10-27 10:25 | XMS_ITS | Encounter Summary ---
Author Organization [facility] Address [address] [place] [address]. [place] [address] Care Team Providers Care Paediatric Surgeon Name Role Phone Salina Doherty MD Unavailable Carrillo Ware APRN CIRCULATOR Unavailable SolitarioAngelica golden NP Unavailable [phone] Nelson Arroyo PA-C Unavailable [phone] Nelson Arroyo PA-C Primary Care Provider Chinyere Barbour Unavailable Unavailable Nelson Arroyo PA-C Unavailable Pietro Wills MD Unavailable [phone] Tank Bucio MD Unavailable [phone] Encounter Details Date Type Department Care Team (Late st Contact Info) Description 12/27/[address] [facility] [id number] [place] [address], [address] [place] [address] Nelson Arroyo PA-C [address] [place] [address] Social History Tobacco Use Types [...] PM CDT Legal Sex Female 3:44 AM WORD PROCESSING SPECIALIST Gender Identity Female 10/03/2020 8:33 PM CDT Sexual Orientation Straight 07/01/2018 3: 40 PM WORD PROCESSING SPECIALIST documented as of this encounter Plan of Treatment Not on file documented as of this encounter Visit Diagnoses Not on filedocumented in this encounter Additional Health Concerns Assessment Noted Time PHQ-9 Depression Total Score: 7 10/23/19 19 11:12 AM CDT documented as of this encounter Care Teams Paediatric Surgeon Relationship Specialty Start Date End Date Nelson Arroyo PA-C [address] [place] [address] PCP - General Physician Credit Products Officer - Medical 08/06/18 Salina Doherty MD Internal Medicine 12/01/14 Carrillo Ware APRN CNP [address] [place] [address] Nurse Practitioner Nurse Practitioner 12/16/14 Angelica Jerez NP [address] 967247 Nurse Practitioner Nurse Practitioner - Family 07/12/16 Nelson Arroyo PA-C [address] [place] [address] Assigned PCP 07/05/18 07/29/20 Chinyere Barbour Personal Advocate & Liaison (PAL) 01/31/20 04/26/20 Nelson Arroyo PA-C [address] [place] [address] Assigned PCP 07/30/20 Pietro Wills MD [address] [place] [address] Assigned Heart and Vascular Provider 12/14/22 06/26/24 Tank Bucio MD [address], [facility] [[email or web address] [address] [place] [address] Physician boomboat operator 12/01/23 documented as of this encounter
--- OUTSIDE RECORDS SUMMARY | 2024-10-27 10:25 | XMS_ITS | Encounter Summary ---
Author Organization [place] Address [address] [place] [address]. [place] [address] Care Team Providers Care Supervisor Pipe Joints Name Role Phone Salina Doherty MD Unavailable [phone] Carrillo Ware APRN ENVELOPE MAKER Unavailable [phone] SolitarioAngelica golden NP Unavailable [phone] Nelson Arroyo PA-C Unavailable Nelson Arroyo PA-C Primary Care Provider Chinyere Barbour Unavailable Unavailable Nelson Arroyo PA-C Unavailable Pietro Wills MD Unavailable [phone] Tank Bucio MD Unavailable Reason for Visit * Reason Comments Medication Refill Encounter Details Date Type Department Care Team (Late st Contact Info) Description 08/18/[address], [address] [place] [address] Nelson Arroyo PA-C [address] [place] [address] Medication Refill Social History Tobacco [...] PM CDT Legal Sex Female 3:44 AM KAITARA TARAKA Gender Identity Female 10/03/2020 8:33 PM CDT Sexual Orientation Straight 07/01/2018 3: 40 PM KAITARA TARAKA documented as of this encounter Miscellaneous Notes [...] 08/18/2019 4:12 PM CDT Prescription approved per [facility] Refill Protocol - Hydroxyzine Maude Singh RN documented in this encounter Plan of Treatment Not on file documented as of this encounter Visit Diagnoses Diagnosis Generalized anxiety disorder Persistent insomnia Persistent disorder of initiating or maintaining sleep documented in this encounter Additional Health Concerns Assessment Noted Time PHQ-9 Depression Total Score: 10 020 3:04 PM KAITARA TARAKA documented as of this encounter Care Teams Supervisor Pipe Joints Relationship Specialty Start Date End Date Nelson Arroyo PA-C [address] [place] [address] PCP - General Physician Sql Database Developer - Medical 08/06/18 Salina Doherty MD Internal Medicine 12/01/14 Carrillo Ware APRN ENVELOPE MAKER [address] [place] [address] Nurse Practitioner Nurse Practitioner 12/16/14 Angelica Jerez [facility] [address] [place] [address] Nurse Practitioner Nurse Practitioner - Family 07/12/16 Nelson Arroyo PA-C [address] [place] [address] Assigned PCP 07/05/18 07/29/20 Chinyere Barbour Personal Advocate & Liaison (PAL) 01/31/20 04/26/20 Nelson Arroyo PA-C [address] [place] [id number] Assigned PCP 07/30/20 Pietro Wills MD [address] [place] [address] Assigned Heart and Vascular Provider 12/14/22 06/26/24 Tank Bucio MD [address], [facility] [address] [place] [address] Physician senior accounting associate 12/01/23 documented as of this encounter
--- OUTSIDE RECORDS SUMMARY | 2024-10-27 10:25 | XMS_ITS | Encounter Summary ---
Author Organization [facility] Address [address] [place] [address] Care Team Providers Care Grinder Name Role Phone Salina Doherty MD Unavailable [phone] Carrillo Ware APRN REED WORKER Unavailable SolitarioAngelica golden NP Unavailable [phone] Nelson Arroyo PA-C Primary Care Provider [phone] Nelson Arroyo PA-C Unavailable [phone] Pietro Wills MD Unavailable [phone] Tank Bucio MD Unavailable [phone] Encounter Details Date Type Department Care Team (Late st Contact Info) Description 02/15/2022 [facility] Medical Advice [address] [address] Damaso Loza, JONEL Social History [...] PM CDT Legal Sex Female 3:44 AM SEQUINS WINDER Gender Identity Female 10/03/2020 8:33 PM CDT Sexual Orientation Straight 07/01/2018 3: 40 PM SEQUINS WINDER documented as of this encounter Plan of Treatment Not on file documented as of this encounter Visit Diagnoses Not on filedocumented in this encounter Additional Health Concerns Assessment Noted Time PHQ-9 Depression Total Score: 7 10/23/19 22 11:44 AM CDT documented as of this encounter Care Teams Grinder Relationship Specialty Start Date End Date Nelson Arroyo PA-C [address] [place] [address] PCP - General Physician Bottling Supervisor - Medical 08/06/18 Salina Doherty MD Internal Medicine 12/01/14 Carrillo Ware APRN REED WORKER [address] [place] [address] 941395 Nurse Practitioner Nurse Practitioner 12/16/14 Angelica Jerez NP [facility] [address] [place], [place] [address] Nurse Practitioner Nurse Practitioner - Family 07/12/16 Nelson Arroyo PA-C [address] [place] [address] Assigned PCP 07/30/20 Pietro Wills MD [address] [place] [address] Assigned Heart and Vascular Provider 12/14/22 06/26/24 Tank Bucio MD [address] [address] Physician diamond powder technician 12/01/23 documented as of this encounter
--- OUTSIDE RECORDS SUMMARY | 2024-10-27 10:25 | XMS_ITS | Encounter Summary ---
Author Organization [facility] Address [address] [place] [address] Care Team Providers Care Metal Tile Setter Name Role Phone Salina Doherty MD Unavailable [phone] Carrillo Ware APRN PRESS FEEDER Unavailable [phone] Hillary Unger MD Primary Care P rovider Community HealthAngelica NP Unavailable [phone] Nelson Arroyo PA-C Unavailable Hillary Unger MD Unavailable Hillary Unger MD Unavailable Hillary Unger MD Unavailable Nelson Arroyo PA-C Unavailable [phone] Nelson Arroyo PA-C Primary Care Provider Chinyere Barbour Unavailable Unavailable Nelson Arroyo PA-C Unavailable [phone] Pietro Wills MD Unavailable [phone] Tank Bucio MD Unavailable Encounter Details Date Type Department Care Team (Late st Contact Info) Description 07/03/2017 [facility] [address] [place] [address] Cheyanne Garcia, YULI Social History Tobacco Use [...] PM CDT Legal Sex Female 3:44 AM AIRCRAFT ENGINEER Gender Identity Female 10/03/2020 8:33 PM CDT Sexual Orientation Straight 07/01/2018 3: 40 PM AIRCRAFT ENGINEER documented as of this encounter Plan of Treatment Not on file documented as of this encounter Visit Diagnoses Not on filedocumented in this encounter Additional Health Concerns Assessment Noted Time PHQ-9 Depression Total Score: 4 04/04/20 17 7:13 AM AIRCRAFT ENGINEER documented as of this encounter Care Teams Metal Tile Setter Relationship Specialty Start Date End Date Hillary Unger MD [address] [place] [address] PCP - General Internal Medicine 08/21/15 08/05/18 Nelson Arroyo PA-C [address] [place] [address] PCP - Assigned PCP 04/12/18 05/02/18 Hillary Unger MD [address] [place] [address] PCP - Assigned PCP 02/01/18 04/11/18 Hillary Unger MD [address] [place] [address] PCP - Assigned PCP 05/03/18 07/07/18 Nelson Arroyo PA-C [address] [place] [address] PCP - General Physician It Desktop Support Technician - Medical 08/06/18 Salina Doherty MD Internal Medicine 12/01/14 Carrillo Ware APRN PRESS FEEDER [address] [place] [address] Nurse Practitioner Nurse Practitioner 12/16/14 Angelica Jerez NP [facility] [address] [place] [address] Nurse Practitioner Nurse Practitioner - Family 07/12/16 Hillary Unger MD [address] [place] [address] Assigned PCP 05/03/18 07/18/18 Nelson Arroyo PA-C [address] [place] [address] Assigned PCP 07/05/18 07/29/20 Chinyere Barbour Personal Advocate & Liaison (PAL) 01/31/20 04/26/20 Nelson Arroyo PA-C [address] [place] [address] Assigned PCP 07/30/20 Pietro Wills MD [address] [place] 34[address] Assigned Heart and Vascular Provider 12/14/22 06/26/24 Tank Bucio MD [address] 806717 Physician imaging analyst 12/01/23 documented as of this encounter
--- OUTSIDE RECORDS SUMMARY | 2024-10-27 10:25 | XMS_ITS | Encounter Summary ---
Author Organization [facility] [place] Address [address] [place] [address] Care Team Providers Care Catheterization Laboratory Technician Name Role Phone Salina Doherty MD Unavailable [phone] Carrillo Ware APRN PAYROLL MANAGER Unavailable [phone] SolitarioAngelica golden NP Unavailable [phone] Nelson Arroyo PA-C Unavailable [phone] Nelson Arroyo PA-C Primary Care Provider Chinyere Barbour Unavailable Unavailable Nelson Arroyo PA-C Unavailable [phone] Pietro Wills MD Unavailable [phone] Tank Bucio MD Unavailable [phone] Encounter Details Date Type Department Care Team (Late st Contact Info) Description 07/15/2019 MyC Medical Advice [facility] [address] [place] [address], [address] [place] [address] Blanca Baker Social History Tobacco [...] PM CDT Legal Sex Female 3:44 AM STUDIO MODEL Gender Identity Female 10/03/2020 8:33 PM CDT Sexual Orientation Straight 07/01/2018 3: 40 PM STUDIO MODEL documented as of this encounter Plan of Treatment Not on file documented as of this encounter Visit Diagnoses Not on filedocumented in this encounter Additional Health Concerns Assessment Noted Time PHQ-9 Depression Total Score: 10 020 3:04 PM STUDIO MODEL documented as of this encounter Care Teams Catheterization Laboratory Technician Relationship Specialty Start Date End Date Nelson Arroyo PA-C [address] [place] [address] PCP - General Physician Aircraft Log Clerk - Medical 08/06/18 Salina Doherty MD Internal Medicine 12/01/14 Carrillo Ware APRN PAYROLL MANAGER [address] [place] [address] Nurse Practitioner Nurse Practitioner 12/16/14 Angelica Jerez NP [address] [address] Nurse Practitioner Nurse Practitioner - Family 07/12/16 Nelson Arroyo PA-C [address] [address] Assigned PCP 07/05/18 07/29/20 Chinyere Barbour Personal Advocate & Liaison (PAL) 01/31/20 04/26/20 Nelson Arroyo PA-C [address] [address] Assigned PCP 07/30/20 Pietro Wills MD [address] [place] [address] Assigned Heart and Vascular Provider 12/14/22 06/26/24 Tank Bucio MD [address] [facility] 100 [place] [address] Physician weight calculator 12/01/23 documented as of this encounter
--- OUTSIDE RECORDS SUMMARY | 2024-10-27 10:25 | XMS_ITS | Encounter Summary ---
Author Organization [facility] Address [address] [place] [address]. [place] [address] Care Team Providers Care Case Management Social Worker Name Role Phone Salina Doherty MD Unavailable [phone] Carrillo Ware APRN BUSINESS DIVISION CHAIR Unavailable SolitarioAngelica golden NP Unavailable [phone] Nelson Arroyo PA-C Unavailable Nelson Arroyo PA-C Primary Care Provider Chinyere Barbour Unavailable Unavailable Nelson Arroyo PA-C Unavailable Pietro Wills MD Unavailable [phone] Tank Bucio MD Unavailable Reason for Visit * Reason Onset Date Comments Medication Refill 12/03/2018 methocarbamol, clonazePAM, and traZODone Encounter Details Date Type Department Care Team (Late st Contact Info) Description 12/02/2018 Refill [place] [address] [facility], [address] [place] [address] Nelson Arroyo PA-C [address] [place] [address] Medication Refill (methocarbamol, clonazePAM, and [...] CDT Legal Sex Female 3:44 AM CONCRETE MASON Gender Identity Female 10/03/2020 8:33 PM CDT Sexual Orientation Straight 07/01/2018 3 :40 PM CONCRETE MASON documented as of this encounter Miscellaneous Notes [...] # refills: 0 Last Office Visit with [facility] or [facility] prescribing provider: 08/06/2018 Future Office Visit: There is no refill protocol information for this order clonazePAM (KLONOPIN) 0.5 MG tablet Sig - Route: Take 1 tablet (0.5 mg) by mouth daily as needed for anxiety - Oral Last Written Prescription Date: 10/28/18 Last Fill Quantity: 30, # refills: 0 Last Office Visit with [facility] or [facility] prescribing provider: 08/06/2018 Routing refill request to provider for review/approval because: Drug not on the [facility] or [facility] refill protocol or controlled substance ??? [...] documented as of this encounter Care Teams Case Management Social Worker Relationship Specialty Start Date End Date Nelson Arroyo PA-C [address] [address] PCP - General Physician Yarn Twister - Medical 08/06/18 Salnia Doherty MD Internal Medicine 12/01/14 Carrillo Ware APRN BUSINESS DIVISION CHAIR [address] [place] [address]45 Nurse Practitioner Nurse Practitioner 12/16/14 Angelica Jerez NP [address] 964[address] Nurse Practitioner Nurse Practitioner - Family 07/12/16 Nelson Arroyo PA-C [address] [address] Assigned PCP 07/05/18 07/29/20 Chinyere Barbour Personal Advocate & Liaison (PAL) 01/31/20 04/26/20 Nelson Arroyo PA-C [address] [address] Assigned PCP 07/30/20 Pietro Wills MD [address] [place] [address] Assigned Heart and Vascular Provider 12/14/22 06/26/24 Tank Bucio MD [address] [facility] 100 [place] [address] Physician user support analyst 12/01/23 documented as of this encounter
--- OUTSIDE RECORDS SUMMARY | 2024-10-27 10:25 | XMS_ITS | Encounter Summary ---
Author Organization [place] Address [address] [place] [address]. [place] [address] Care Team Providers Care Change Management Expert Name Role Phone Salina Doherty MD Unavailable [phone] Carrillo Ware APRN ASSOCIATE PROFESSOR OF COUNSELING Unavailable SolitarioAngelica golden NP Unavailable [phone] Nelson Arroyo PA-C Unavailable [phone] Nelson Arroyo PA-C Primary Care Provider Chinyere Barbour Unavailable Unavailable Nelson Arroyo PA-C Unavailable Pietro Wills MD Unavailable Tank Bucio MD Unavailable Reason for Visit * Reason Onset Date Comments MyChart Communication 12/16/2018 Encounter Details Date Type Department Care Team (Late st Contact Info) Description 12/16/2018 MyC Medical Advice [facility] [address] [facility], [address] [place] [address] Nelson Arroyo PA-C [address] [place] [address] MyChart Communication Social History Tobacco [...] PM CDT Legal Sex Female 3:44 AM PETROLEUM BLENDING PLANT OPERATOR Gender Identity Female 10/03/2020 8:33 PM CDT Sexual Orientation Straight 07/01/2018 3: 40 PM PETROLEUM BLENDING PLANT OPERATOR documented as of this encounter Miscellaneous Notes * Telephone Encounter - Susanne Zacarias RN - 12/16/2018 4:15 PM CDT Spoke with [facility]. They did receive the prescriptions, however there is an issue with insurance covering them. The Pt may have to pay for them out of pocket. Pharmacy will call insurance company and call the Pt back directly. I informed the Pt of this via message below. Susanne Zacarias RN -- [facility] documented in this encounter Plan of Treatment Not on file documented as of this encounter Visit Diagnoses Not on filedocumented in this encounter Additional Health Concerns Assessment Noted Time PHQ-9 Depression Total Score: 7 10/23/19 19 11:12 AM CDT documented as of this encounter Care Teams Change Management Expert Relationship Specialty Start Date End Date Nelson Arroyo PA-C [address] [place] [address] PCP - General Physician Desulfurizer Hand - Medical 08/06/18 Salina Doherty MD Internal Medicine 12/01/14 Carrillo Ware APRN CNP [address] [place] [address] Nurse Practitioner Nurse Practitioner 12/16/14 Angelica Jerez NP [facility] [address] [place] [address] Nurse Practitioner Nurse Practitioner - Family 07/12/16 Nelson Arroyo PA-C [address] [place] [address] Assigned PCP 07/05/18 07/29/20 Chinyere Barbour Personal Advocate & Liaison (PAL) 01/31/20 04/26/20 Nelson Arroyo PA-C [address] [address] Assigned PCP 07/30/20 Pietro Wills MD [address] [place] [address] Assigned Heart and Vascular Provider 12/14/22 06/26/24 Tank Bucio MD [address], [address] [address] Physician editor dictionary 12/01/23 documented as of this encounter
--- OUTSIDE RECORDS SUMMARY | 2024-10-27 10:25 | XMS_ITS | Encounter Summary ---
Author Organization [facility] Address [address] [place] [address]. [place] [address] Care Team Providers Care Slubber Frame Changer Name Role Phone Salina Doherty MD Unavailable Carrillo Ware APRN B2B SALES EXECUTIVE Unavailable SolitarioAngelica golden NP Unavailable [phone] Nelson Arroyo PA-C Primary Care Provider Nelson Arroyo PA-C Unavailable [phone] Pietro Wills MD Unavailable [phone] Tank Bucio MD Unavailable [phone] Reason for Visit * Reason Onset Date Comments Refill Request 12/10/2021 Encounter Details Date Type Department Care Team (Late st Contact Info) Description 12/10/2021 MyC Refill [facility] [address] [place] [address] Nelson Arroyo PA-C [address] [place] [address] Refill Request Social History Tobacco [...] CDT Legal Sex Female 3:44 AM RN ICU Gender Identity Female 10/03/2020 8:33 PM CDT Sexual Orientation Straight 07/01/2018 3: 40 PM RN ICU documented as of this encounter Plan of Treatment Not on file documented as of this encounter Visit Diagnoses Diagnosis Generalized anxiety disorder documented in this encounter Additional Health Concerns Assessment Noted Time PHQ-9 Depression Total Score: 7 10/23/19 22 11:44 AM CDT documented as of this encounter Care Teams Slubber Frame Changer Relationship Specialty Start Date End Date Nelson Arroyo PA-C [address] [place] [address] PCP - General Physician Blue Leather Setter - Medical 08/06/18 Salina Doherty MD Internal Medicine 12/01/14 Carrillo Ware APRN B2B SALES EXECUTIVE [address] [place] [address]64205 Nurse Practitioner Nurse Practitioner 12/16/14 Angelica Jerez NP [place] [address] [place], [place] [address] Nurse Practitioner Nurse Practitioner - Family 07/12/16 Nelson Arroyo PA-C [address] [address] Assigned PCP 07/30/20 Pietro Wills MD [address] [address] Assigned Heart and Vascular Provider 12/14/22 06/26/24 Tank Bucio MD [address], [address] [address] Physician junior mechanical engineer 12/01/23 documented as of this encounter
--- OUTSIDE RECORDS SUMMARY | 2024-10-27 10:25 | XMS_ITS | Encounter Summary ---
Author Organization [facility] Address [address] [place] [address]. [place] [address] Care Team Providers Care Mobile Disc Jockey Name Role Phone Salina Doherty MD Unavailable [phone] Carrillo Ware APRN APPLICATIONS SYSTEMS ENGINEER Unavailable SolitarioAngelica golden NP Unavailable [phone] Nelson Arroyo PA-C Unavailable Nelson Arroyo PA-C Primary Care Provider Chinyere Barbour Unavailable Unavailable Nelson Arroyo PA-C Unavailable Pietro Wills MD Unavailable [phone] Tank Bucio MD Unavailable Reason for Visit * Reason Onset Date Comments Appointment 06/29/2019 Encounter Details Date Type Department Care Team (Late st Contact Info) Description 06/29/[address] [facility] [address] [place] [address], [address] [place] [address] Nelson Arroyo PA-C [address] [place] [address] Appointment Social History Tobacco Use [...] PM CDT Legal Sex Female 3:44 AM VETERINARY MEDICINE DOCTOR Gender Identity Female 10/03/2020 8:33 PM CDT Sexual Orientation Straight 07/01/2018 3: 40 PM VETERINARY MEDICINE DOCTOR documented as of this encounter Plan of Treatment Not on file documented as of this encounter Visit Diagnoses Not on filedocumented in this encounter Additional Health Concerns Assessment Noted Time PHQ-9 Depression Total Score: 10 019 2:36 PM CDT documented as of this encounter Care Teams Mobile Disc Jockey Relationship Specialty Start Date End Date Nelson Arroyo PA-C [address] [place] [address] PCP - General Physician Corporate Paralegal - Medical 08/06/18 Salina Doherty MD Internal Medicine 12/01/14 Carrillo Ware APRN APPLICATIONS SYSTEMS ENGINEER [address] [place] [address] Nurse Practitioner Nurse Practitioner 12/16/14 Angelica Jerez NP [place] [address] [place] [address] Nurse Practitioner Nurse Practitioner - Family 07/12/16 Nelson Arroyo PA-C [address] [place] [address] Assigned PCP 07/05/18 07/29/20 Chinyere Barbour Personal Advocate & Liaison (PAL) 01/31/20 04/26/20 Nelson Arroyo PA-C [address] [place] [address] Assigned PCP 07/30/20 Pietro Wills MD [address] [place] [address] Assigned Heart and Vascular Provider 12/14/22 06/26/24 Tank Bucio MD [address] [facility] [address] [place] [address] Physician procurement clerk 12/01/23 documented as of this encounter
--- OUTSIDE RECORDS SUMMARY | 2024-10-27 10:25 | XMS_ITS | Encounter Summary ---
Author Organization [place] Address [address] [place] [address]. [place] [address] Care Team Providers Care Pet Resort Concierge Name Role Phone Salina Doherty MD Unavailable Carrillo Ware APRN WHEAT BUYER Unavailable SoliatrioAngelica golden NP Unavailable [phone] Nelson Arroyo PA-C Unavailable [phone] Nelson Arroyo PA-C Primary Care Provider Chinyere Barbour Unavailable Unavailable Nelson Arroyo PA-C Unavailable Pietro Wills MD Unavailable [phone] Tank Bucio MD Unavailable Reason for Visit * Reason Onset Date Comments Refill Request 12/18/2018 Encounter Details Date Type Department Care Team (Late st Contact Info) Description 12/18/2018 MyC Pietro [facility] Mental Health & Addiction [address] [place] [address] Nelson Arroyo PA-C [address] [place] [address] Refill Request Social History Tobacco [...] PM CDT Legal Sex Female 3:44 AM TRAY DRIER OPERATOR Gender Identity Female 10/03/2020 8:33 PM CDT Sexual Orientation Straight 07/01/2018 3: 40 PM TRAY DRIER OPERATOR documented as of this encounter Plan of Treatment Not on file documented as of this encounter 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), predominantly inattentive type documented in this encounter Additional Health Concerns Assessment Noted Time PHQ-9 Depression Total Score: 7 10/23/19 19 11:12 AM CDT documented as of this encounter Care Teams Pet Resort Concierge Relationship Specialty Start Date End Date Nelson Arroyo PA-C [address] [place] [address] PCP - General Physician Process Control Engineer - Medical 08/06/18 Salina Doherty MD Internal Medicine 12/01/14 Carrillo Ware APRN WHEAT BUYER [address] [place] [id number] Nurse Practitioner Nurse Practitioner 12/16/14 Angelica Jerez NP [place] [address] [place], [place] [address] Nurse Practitioner Nurse Practitioner - Family 07/12/16 Nelson Arroyo PA-C [address] [address] Assigned PCP 07/05/18 07/29/20 Chinyere Barbour Personal Advocate & Liaison (PAL) 01/31/20 04/26/20 Nelson Arroyo PA-C [address] [place] [address] Assigned PCP 07/30/20 Pietro Wills MD [address] [place] [address] Assigned Heart and Vascular Provider 12/14/22 06/26/24 Tank Bucio MD [address], [address] [place] [address] Physician pastry decorator 12/01/23 documented as of this encounter
--- OUTSIDE RECORDS SUMMARY | 2024-10-27 10:25 | XMS_ITS | Encounter Summary ---
Author Organization [place] Address [address] [place] [address]. [place] [address] Care Team Providers Care Payroll Examiner Name Role Phone Salina Doherty MD Unavailable Carrillo Ware APRN MILKER MACHINE Unavailable SolitarioAngelica golden NP Unavailable Nelson Arroyo PA-C Primary Care Provider Nelson Arroyo PA-C Unavailable Pietro Wills MD Unavailable [phone] Tank Bucio MD Unavailable [phone] Encounter Details Date Type Department Care Team (Late st Contact Info) Description 10/31/2021 MyC Medical Advice [facility] [address] [place] [address] Nelson Arroyo PA-C [address] [place] [address] Social History Tobacco Use Types [...] PM CDT Legal Sex Female 3:44 AM BARKEEPER Gender Identity Female 10/03/2020 8:33 PM CDT Sexual Orientation Straight 07/01/2018 3: 40 PM BARKEEPER documented as of this encounter Miscellaneous Notes * Telephone Encounter - Sanjana Bautista RN - 11/01/2021 1:46 PM CDT prazosin (MINIPRESS) 5 MG capsule 90 capsule 0 10/31/2021 No Sig - Route: TAKE 1 CAPSULE (5 MG) BY MOUTH AT BEDTIME - Oral Sent to pharmacy as: Prazosin HCl 5 MG Oral Capsule (MINIPRESS) Class: E-Prescribe Order: [id number] E-Prescribing Status: Receipt confirmed by pharmacy (10/31/2021 [...] as of this encounter Care Teams Payroll Examiner Relationship Specialty Start Date End Date Nelson Arroyo PA-C [address] [place] [address] PCP - General Physician Booking Police Officer - Medical 08/06/18 Salina Doherty MD Internal Medicine 12/01/14 Carrillo Ware APRN MILKER MACHINE [address] [place] [address] Nurse Practitioner Nurse Practitioner 12/16/14 Angelica Jerez NP [facility] [address] [place] [address] Nurse Practitioner Nurse Practitioner - Family 07/12/16 Nelson Arroyo PA-C [address] [place] [address] Assigned PCP 07/30/20 Pietro Wills MD [address] [place] [address] Assigned Heart and Vascular Provider 12/14/22 06/26/24 Tank Bucio MD [address], [facility] [address] [place] [address] Physician deputy sheriff generalist/bailiff 12/01/23 documented as of this encounter
--- OUTSIDE RECORDS SUMMARY | 2024-10-27 10:25 | XMS_ITS | Encounter Summary ---
Author Organization [place] Address [address] [place] [address]. [place] [address] Care Team Providers Care Computer Aided Design Operator Name Role Phone Salina Doherty MD Unavailable Carrillo Ware APRN INSTRUCTOR HAIRSPRING Unavailable SolitarioAngelica golden NP Unavailable [phone] Nelsno Arroyo PA-C Unavailable Nelson Arroyo PA-C Primary Care Provider Chinyere Barbour Unavailable Unavailable Nelson Arroyo PA-C Unavailable Pietro Wlils MD Unavailable [phone] Tank Bucio MD Unavailable Encounter Details Date Type Department Care Team (Late st Contact Info) Description 01/12/2019 MyC Medical Advice [address], [address] [place] [address] Nelson Arroyo PA-C [address] [place] [address] Social History Tobacco Use Types [...] PM CDT Legal Sex Female 3:44 AM FLOAT REMOVER Gender Identity Female 10/03/2020 8:33 PM CDT Sexual Orientation Straight 07/01/2018 3: 40 PM FLOAT REMOVER documented as of this encounter Plan of Treatment Not on file documented as of this encounter Visit Diagnoses Not on filedocumented in this encounter Additional Health Concerns Assessment Noted Time PHQ-9 Depression Total Score: 7 10/23/19 19 11:12 AM CDT documented as of this encounter Care Teams Computer Aided Design Operator Relationship Specialty Start Date End Date Nelson Arroyo PA-C [address] [place] [address] PCP - General Physician Desulfurizer Operator - Medical 08/06/18 Salina Doherty MD Internal Medicine 12/01/14 Carrillo Ware APRN CNP [address] [place] [address] Nurse Practitioner Nurse Practitioner 12/16/14 Angelica Jerez NP [address] [address] Nurse Practitioner Nurse Practitioner - Family 07/12/16 Nelson Arroyo PA-C [address] [place] [address] Assigned PCP 07/05/18 07/29/20 Chinyere Barbour Personal Advocate & Liaison (PAL) 01/31/20 04/26/20 Nelson Arroyo PA-C [address] [place] [address] Assigned PCP 07/30/20 Pietro Wills MD [address] [place] [address] Assigned Heart and Vascular Provider 12/14/22 06/26/24 Tank Bucio MD [address], [facility] 100 [place] [address] Physician lead press operator 12/01/23 documented as of this encounter
--- OUTSIDE RECORDS SUMMARY | 2024-10-27 10:25 | XMS_ITS | Encounter Summary ---
Author Organization [place] Address [address] [place] [address]. [place] [address] Care Team Providers Care Refinery Process Engineer Name Role Phone Salina Doherty MD Unavailable [phone] Carrillo Ware APRN LABORER DRYING DEPARTMENT Unavailable SolitarioAngelica golden NP Unavailable [phone] Nelson Arroyo PA-C Primary Care Provider [phone] Nelson Arroyo PA-C Unavailable [phone] Pietro Wills MD Unavailable Tank Bucio MD Unavailable [phone] Reason for Visit * Reason Comments Medication Refill Encounter Details Date Type Department Care Team (Late st Contact Info) Description 08/07/2021 Refill [facility] [address] [place] [address] Nelson Arroyo PA-C [address] [place] [address] Medication Refill Social History Tobacco [...] PM CDT Legal Sex Female 3:44 AM FUNERAL COUNSELOR Gender Identity Female 10/03/2020 8:33 PM CDT Sexual Orientation Straight 07/01/2018 3: 40 PM FUNERAL COUNSELOR COVID-19 Exposure Response Date Recorded In the [...] Total Score: 9 06/04/19 22 12:13 PM FUNERAL COUNSELOR documented as of this encounter Care Teams Refinery Process Engineer Relationship Specialty Start Date End Date Nelson Arroyo PA-C [address] [place] [address] PCP - General Physician Flocculator Operator - Medical 08/06/18 Salina Doherty MD Internal Medicine 12/01/14 Carrillo Ware APRN LABORER DRYING DEPARTMENT [address] [place] [address] Nurse Practitioner Nurse Practitioner 12/16/14 Angelica Jerez NP [facility] [address] [place] [address] Nurse Practitioner Nurse Practitioner - Family 07/12/16 Nelson Arroyo PA-C [address] [place] [address] Assigned PCP 07/30/20 Pietro Wills MD [address] [place] [address] Assigned Heart and Vascular Provider 12/14/22 06/26/24 Tank Bucio MD [address], [facility] 100 [place] [address] Physician supply chain vice president 12/01/23 documented as of this encounter
--- OUTSIDE RECORDS SUMMARY | 2024-10-27 10:25 | XMS_ITS | Encounter Summary ---
Author Organization [place] Address [address] [place] [address]. [place] [address] Care Team Providers Care Strategy Lead Name Role Phone Salina Doherty MD Unavailable [phone] Carrillo Ware APRN UPKEEP WORKER Unavailable SolitarioAngelica golden NP Unavailable [phone] Nelson Arroyo PA-C Unavailable Nelson Arroyo PA-C Primary Care Provider Chinyere Barbour Unavailable Unavailable Nelson Arroyo PA-C Unavailable Pietro Wills MD Unavailable Tank Bucio MD Unavailable Reason for Visit * Reason Onset Date Comments Refill Request 07/14/2019 Encounter Details Date Type Department Care Team (Late st Contact Info) Description 07/14/2019 MyC Refill [facility] [address] [facility], [address] [place] [address] Nelson Arroyo PA-C [address] [place] [address] Refill Request Social History Tobacco [...] PM CDT Legal Sex Female 3:44 AM AGRICULTURE ENGINEER Gender Identity Female 10/03/2020 8:33 PM CDT Sexual Orientation Straight 07/01/2018 3: 40 PM AGRICULTURE ENGINEER documented as of this encounter Miscellaneous Notes * Telephone Encounter - Blanca Baker - 07/15/2019 7:56 AM CDT [facility] Blanca Baker/ Clothing And Textiles Teacher * Telephone Encounter - Nelson Arroyo PA-C [...] Depression Total Score: 10 020 3:04 PM AGRICULTURE ENGINEER documented as of this encounter Care Teams Strategy Lead Relationship Specialty Start Date End Date Nelson Arroyo PA-C [address] [place] [address] PCP - General Physician Credit Rating Inspector - Medical 08/06/18 Salina Doherty MD Internal Medicine 12/01/14 Carrillo Ware APRN UPKEEP WORKER [address] [place] [address] Nurse Practitioner Nurse Practitioner 12/16/14 Angelica Jerez NP [facility] [address] [place] [address] Nurse Practitioner Nurse Practitioner - Family 07/12/16 Nelson Arroyo PA-C [address] [place] [address] Assigned PCP 07/05/18 07/29/20 Chinyere Barbour Personal Advocate & Liaison (PAL) 01/31/20 04/26/20 Nelson Arroyo PA-C [address] [place] [address] Assigned PCP 07/30/20 Pietro Wills MD [address] [place] [address] Assigned Heart and Vascular Provider 12/14/22 06/26/24 Tank Bucio MD [address] [facility], [address] [address] Physician banking representative 12/01/23 documented as of this encounter
--- OUTSIDE RECORDS SUMMARY | 2024-10-27 10:25 | XMS_ITS | Encounter Summary ---
Author Organization [place] Address [address] [place] [address]. [place] [address] Care Team Providers Care Night Coordinator Name Role Phone Salina Doherty MD Unavailable [phone] Carrillo Ware APRN POULTRY PINNER Unavailable SolitarioAngelica golden NP Unavailable [phone] Nelson Arroyo PA-C Unavailable Nelson Arroyo PA-C Primary Care Provider Chinyere Barbour Unavailable Unavailable Nelson Arroyo PA-C Unavailable Pietro Wills MD Unavailable Tank Bucio MD Unavailable [phone] Reason for Visit * Reason Onset Date Comments Lab Only 08/03/2019 Encounter Details Date Type Department Care Team (Late st Contact Info) Description 08/03/2019 MyC Medical Advice [facility] [address] [facility], [address] [place] [address] Nelson Arroyo PA-C [address] [place] [address] Lab Only Social History Tobacco [...] PM CDT Legal Sex Female 3:44 AM CHANNEL CEMENTER INSOLE MACHINE Gender Identity Female 10/03/2020 8:33 PM CDT Sexual Orientation Straight 07/01/2018 3 :40 PM CHANNEL CEMENTER INSOLE MACHINE documented as of this encounter Plan of Treatment Not on file documented as of this encounter Visit Diagnoses Not on filedocumented in this encounter Additional Health Concerns Assessment Noted Time PHQ-9 Depression Total Score: 10 020 3:04 PM CHANNEL CEMENTER INSOLE MACHINE documented as of this encounter Care Teams Night Coordinator Relationship Specialty Start Date End Date Nelson Arroyo PA-C [address] [place] [address] PCP - General Physician Senior Software Test Engineer - Medical 08/06/18 Salina Doherty MD Internal Medicine 12/01/14 Carrillo Ware APRN POULTRY PINNER [address] [place] [address] Nurse Practitioner Nurse Practitioner 12/16/14 Angelica Jerez NP [place] [address] [place] [address] Nurse Practitioner Nurse Practitioner - Family 07/12/16 Nelson Arroyo PA-C [address] [place] [address] Assigned PCP 07/05/18 07/29/20 Chinyere Barbour Personal Advocate & Liaison (PAL) 01/31/20 04/26/20 Nelson Arroyo PA-C [address] [place] [address] Assigned PCP 07/30/20 Pietro Wills MD [address] [place] [address] Assigned Heart and Vascular Provider 12/14/22 06/26/24 Tank Bucio MD [address] [facility] 100 [place] [address] Physician swimming pool cleaner 12/01/23 documented as of this encounter
--- OUTSIDE RECORDS SUMMARY | 2024-10-27 10:25 | XMS_ITS | Encounter Summary ---
Author Organization [place] Address [address] [place] [address] Care Team Providers Care Supervisor Quality Control Name Role Phone Salina Doherty MD Unavailable [phone] Carrillo Ware APRN GENERAL CLAIMS AGENT Unavailable Hillary Unger MD Primary Care P rovider [facility] NP Unavailable [phone] Nelson Arroyo PA-C Unavailable Hillary Unger MD Unavailable Hillary Unger MD Unavailable Hillary Unger MD Unavailable Nelson Arroyo PA-C Unavailable [phone] Nelson Arroyo PA-C Primary Care Provider Chiynere Barbour Unavailable Unavailable Nelson Arroyo PA-C Unavailable [phone] Pietro Wills MD Unavailable [phone] Tank Bucio MD Unavailable [phone] Encounter Details Date Type Department Care Team (Late st Contact Info) Description 04/15/2017 [facility] Mental Health & Addiction [address] [place] [address] Solitario Angelica Gautam, POLY PACKER AND HEAT SEALER [address] [place] [address] Social History Tobacco Use Types Packs/Day Years [...] PM CDT Legal Sex Female 3:44 AM ANIMAL ATTENDANTS AND TRAINERS Gender Identity Female 10/03/2020 8:33 PM CDT Sexual Orientation Straight 07/01/2018 3: 40 PM ANIMAL ATTENDANTS AND TRAINERS documented as of this encounter Plan of Treatment Not on file documented as of this encounter Visit Diagnoses Not on filedocumented in this encounter Additional Health Concerns Assessment Noted Time PHQ-9 Depression Total Score: 4 04/04/20 17 7:13 AM ANIMAL ATTENDANTS AND TRAINERS documented as of this encounter Care Teams Supervisor Quality Control Relationship Specialty Start Date End Date Hillary Unger MD [address] [place] [address] PCP - General Internal Medicine 08/21/15 08/05/18 Nelson Arroyo PA-C [address] [place] [address] PCP - Assigned PCP 04/12/18 05/02/18 Hillary Unger MD [address] [place] [address] PCP - Assigned PCP 02/01/18 04/11/18 Hillary Unger MD [address] [place] [address] PCP - Assigned PCP 05/03/18 07/07/18 Nelson Arroyo PA-C [address] [place] [address] PCP - General Physician Floor And Wall Applier Liquid - Medical 08/06/18 Salina Doherty MD Internal Medicine 12/01/14 Carrillo Ware APRN GENERAL CLAIMS AGENT [address] [place] [address] Nurse Practitioner Nurse Practitioner 12/16/14 Angelica Jerez POLY PACKER AND HEAT SEALER [facility] [address] [place], [place] [address] Nurse Practitioner Nurse Practitioner - Family 07/12/16 Hillary Unger MD [address] [place] [address] Assigned PCP 05/03/18 07/18/18 Nelson Arroyo PA-C [address] [place] [address] Assigned PCP 07/05/18 07/29/20 Chinyere Barbour Personal Advocate & Liaison (PAL) 01/31/20 04/26/20 Nelson Arroyo PA-C [address] [place] [address] Assigned PCP 07/30/20 Pietro Wills MD [address] [address] Assigned Heart and Vascular Provider 12/14/22 06/26/24 Tank Bucio MD [address], [facility] 100 [place] [address] Physician marketing underwriter 12/01/23 documented as of this encounter
--- OUTSIDE RECORDS SUMMARY | 2024-10-27 10:25 | XMS_ITS | Encounter Summary ---
Author Organization [place] Address [address] [place] [address] Care Team Providers Care Coke Drawer Hand Name Role Phone Salina Doherty MD Unavailable Carrillo Ware APRN REWEAVER Unavailable SolitarioAngelica golden NP Unavailable Nelson Arroyo PA-C Primary Care Provider Nelson Arroyo PA-C Unavailable [phone] Pietro Wills MD Unavailable Tank Bucio MD Unavailable Encounter Details Date Type Department Care Team (Late st Contact Info) Description 02/13/2022 [facility] Medical Advice [facility] Health [facility] Addiction Services [address] [facility] [address] [place] [address] Yodit Alexis, [facility] [address] [place] [address] Social History Tobacco Use Types [...] PM CDT Legal Sex Female 3:44 AM DENTAL ASSISTANT Gender Identity Female 10/03/2020 8:33 PM CDT Sexual Orientation Straight 07/01/2018 3: 40 PM DENTAL ASSISTANT documented as of this encounter Plan of Treatment Not on file documented as of this encounter Visit Diagnoses Not on filedocumented in this encounter Additional Health Concerns Assessment Noted Time PHQ-9 Depression Total Score: 7 10/23/19 22 11:44 AM CDT documented as of this encounter Care Teams Coke Drawer Hand Relationship Specialty Start Date End Date Nelson Arroyo PA-C [address] [address] PCP - General Physician Residential Worker - Medical 08/06/18 Salina Doherty MD Internal Medicine 12/01/14 Carrillo Ware APRN REWEAVER [address] [place] [address] Nurse Practitioner Nurse Practitioner 12/16/14 Angelica Jerez NP [address] [address] Nurse Practitioner Nurse Practitioner - Family 07/12/16 Nelson Arroyo PA-C [address] [address] Assigned PCP 07/30/20 Pietro Wills MD [address] [address] Assigned Heart and Vascular Provider 12/14/22 06/26/24 Tank Bucio MD [address] [facility] 100 [place] [address] Physician muck miner blasting 12/01/23 documented as of this encounter
--- OUTSIDE RECORDS SUMMARY | 2024-10-27 10:25 | XMS_ITS | Encounter Summary ---
Author Organization [place] Address [address] [place] [address] Care Team Providers Care Floor Grinder Name Role Phone Salina Doherty MD Unavailable [phone] Carrillo Ware APRN SUBMARINE DIVER Unavailable Hillary Unger MD Primary Care P rovider [facility] NP Unavailable [phone] Nelson Arroyo PA-C Unavailable [phone] Hillary Unger MD Unavailable Hillary Unger MD Unavailable Hillary Unger MD Unavailable Nelson Arroyo PA-C Unavailable [phone] Nelson Arroyo PA-C Primary Care Provider Chinyere Barbour Unavailable Unavailable Nelson Arroyo PA-C Unavailable [phone] Pietro Wills MD Unavailable [phone] Tank Bucio MD Unavailable [phone] Reason for Visit * Reason Onset Date Comments Mass 05/30/2017 Golf-ball sized painful lump on head Encounter Details Date Type Department Care Team (Late st Contact Info) Description 05/30/2017 [facility] [address] [place] [address] [place] [address] Hillary Unger MD [address] [place] [address] Mass (Golf-ball sized painful lump on head) [...] CDT Legal Sex Female 3:44 AM TRAY DELIVERY AIDE Gender Identity Female 10/03/2020 8:33 PM CDT Sexual Orientation Straight 07/01/2018 3: 40 PM TRAY DELIVERY AIDE documented as of this encounter Miscellaneous Notes * Telephone Encounter - Shira Chow CMA - 05/30/2017 6:49 PM TRAY DELIVERY AIDE Tried calling pt on her cell, no answer. Spoke to Nancy ROLDAN, who thought it would be best to recommend that she go to an urgent care seeing as how we really don't have enough information to know if the pt is dealing with something serious or not. Will route to Dr. Tran as high-priority. DELIVERY AIDE * Telephone Encounter - Shira Chow CMA - 05/30/2017 6:28 PM TRAY DELIVERY AIDE Routed to Dr. Tran. DELIVERY AIDE documented in this encounter Plan of Treatment Not on file documented as of this encounter Visit Diagnoses Not on filedocumented in this encounter Additional Health Concerns Assessment Noted Time PHQ-9 Depression Total Score: 4 04/04/20 17 7:13 AM TRAY DELIVERY AIDE documented as of this encounter Care Teams Floor Grinder Relationship Specialty Start Date End Date Hillary Unger MD [address] [place] [address] PCP - General Internal Medicine 08/21/15 08/05/18 Nelson Arroyo PA-C [address] [place] [address] PCP - Assigned PCP 04/12/18 05/02/18 Hillary Unger MD [address] [place] [address] PCP - Assigned PCP 02/01/18 04/11/18 Hillary Unger MD [address] [place] [address] PCP - Assigned PCP 05/03/18 07/07/18 Nelson Arroyo PA-C [address] [place] [address] PCP - General Physician Bellman Captain - Medical 08/06/18 Salina Doherty MD Internal Medicine 12/01/14 Carrillo Ware APRN SUBMARINE DIVER [address] [place] [address] Nurse Practitioner Nurse Practitioner 12/16/14 Angelica Jerez NP [facility] [address] [place], [place] [address] Nurse Practitioner Nurse Practitioner - Family 07/12/16 Hillary Unger MD [address] [place] [address] Assigned PCP 05/03/18 07/18/18 Nelson Arroyo PA-C [address] [place] [address] Assigned PCP 07/05/18 07/29/20 Chinyere Barbour Personal Advocate & Liaison (PAL) 01/31/20 04/26/20 Nelson Arroyo PA-C [address] [place] [address] Assigned PCP 07/30/20 Pietro Wills MD [address] [place] [address] Assigned Heart and Vascular Provider 12/14/22 06/26/24 Tank Bucio MD [address], [place] [address] [place] [address] Physician manager games 12/01/23 documented as of this encounter
--- OUTSIDE RECORDS SUMMARY | 2024-10-27 10:25 | XMS_ITS | Encounter Summary ---
Author Organization [place] Address [address] [place] [address] Care Team Providers Care Bilingual Speech Language Pathologist Name Role Phone Salina Doherty MD Unavailable [phone] Carrillo Ware APRN JAWBONE BREAKER Unavailable SolitarioAngelica golden NP Unavailable [phone] Nelson Arroyo PA-C Unavailable [phone] Nelson Arroyo PA-C Primary Care Provider [phone] Chinyere Barbour Unavailable Unavailable Nelson Arroyo PA-C Unavailable [phone] Pietro Wills MD Unavailable [phone] Tank Bucio MD Unavailable [phone] Encounter Details Date Type Department Care Team (Late st Contact Info) Description 09/06/2019 MyC Medical Advice [address] [address] Blanca Baker Social History Tobacco [...] PM CDT Legal Sex Female 3:44 AM BURR GRINDER Gender Identity Female 10/03/2020 8:33 PM CDT Sexual Orientation Straight 07/01/2018 3: 40 PM BURR GRINDER documented as of this encounter Plan of Treatment Not on file documented as of this encounter Visit Diagnoses Not on filedocumented in this encounter Additional Health Concerns Assessment Noted Time PHQ-9 Depression Total Score: 10 020 3:04 PM BURR GRINDER documented as of this encounter Care Teams Bilingual Speech Language Pathologist Relationship Specialty Start Date End Date Nelson Arroyo PA-C [address] [address] PCP - General Physician Library Page - Medical 08/06/18 Salina Doherty MD Internal Medicine 12/01/14 Carrillo Ware APRN JAWBONE BREAKER [address] [place] [address] Nurse Practitioner Nurse Practitioner 12/16/14 Angelica Jerez NP [address] [address] Nurse Practitioner Nurse Practitioner - Family 07/12/16 Nelson Arroyo PA-C [address] [address] Assigned PCP 07/05/18 07/29/20 Chinyere Barbour Personal Advocate & Liaison (PAL) 01/31/20 04/26/20 Nelson Arroyo PA-C [address] [address] Assigned PCP 07/30/20 Pietro Wills MD [address] [address] Assigned Heart and Vascular Provider 12/14/22 06/26/24 Tank Bucio MD [address] [facility] 100 [place] [address] Physician rail signal mechanic 12/01/23 documented as of this encounter
--- OUTSIDE RECORDS SUMMARY | 2024-10-27 10:25 | XMS_ITS | Encounter Summary ---
Author Organization [place] Address [address] [place] [address] Care Team Providers Care Crown Perforator Operator Name Role Phone Salina Doherty MD Unavailable [phone] Carrillo Ware APRN PLANTING MATERIAL REMOVER Unavailable SolitarioAngelica golden NP Unavailable [phone] Nelson Arroyo PA-C Unavailable [phone] Nelson Arroyo PA-C Primary Care Provider [phone] Chinyere Barbour Unavailable Unavailable Nelson Arroyo PA-C Unavailable [phone] Pietro Wills MD Unavailable [phone] Tank Bucio MD Unavailable [phone] Encounter Details Date Type Department Care Team (Late st Contact Info) Description 10/27/2018 MyC Medical Advice [address], [address] [place] [address] Lexi Reina, RN Social History [...] PM CDT Legal Sex Female 3:44 AM DISHWASHING MACHINE OPERATOR Gender Identity Female 10/03/2020 8:33 PM CDT Sexual Orientation Straight 07/01/2018 3: 40 PM DISHWASHING MACHINE OPERATOR documented as of this encounter Plan of Treatment Not on file documented as of this encounter Visit Diagnoses Not on filedocumented in this encounter Additional Health Concerns Assessment Noted Time PHQ-9 Depression Total Score: 7 10/23/19 19 11:12 AM CDT documented as of this encounter Care Teams Crown Perforator Operator Relationship Specialty Start Date End Date Nelson Arroyo PA-C [address] [address] PCP - General Physician Systems Operator - Medical 08/06/18 Salina Doherty MD Internal Medicine 12/01/14 Carrillo Ware APRN PLANTING MATERIAL REMOVER [address] [place] [address] Nurse Practitioner Nurse Practitioner 12/16/14 Angelica Jerez NP [address] [address] Nurse Practitioner Nurse Practitioner - Family 07/12/16 Nelson Arroyo PA-C [address] [address] Assigned PCP 07/05/18 07/29/20 Chinyere Barbour Personal Advocate & Liaison (PAL) 01/31/20 04/26/20 Nelson Arroyo PA-C [address] [address] Assigned PCP 07/30/20 Pietro Wills MD [address] [place] [address] Assigned Heart and Vascular Provider 12/14/22 06/26/24 Tank Bucio MD [address] [facility] 100 [place] [address] Physician fur stylist 12/01/23 documented as of this encounter
--- OUTSIDE RECORDS SUMMARY | 2024-10-27 10:25 | XMS_ITS | Encounter Summary ---
Author Organization [place] Address [address] [place] [address] Care Team Providers Care Inspector Plug Seam Name Role Phone Salina Doherty MD Unavailable Carrillo Ware APRN DRAWER IN STITCH BONDING MACHINE Unavailable SolitarioAngelica golden NP Unavailable [phone] Nelson Arroyo PA-C Primary Care Provider Nelson Arroyo PA-C Unavailable [phone] Pietro Wills MD Unavailable aTnk Bucio MD Unavailable [phone] Encounter Details Date Type Department Care Team (Late st Contact Info) Description 11/13/2021 [facility] Intake [address] [place] [id number] Margi Dumont Social History Tobacco Use Types [...] PM CDT Legal Sex Female 3:44 AM NETWORK INTERNSHIP Gender Identity Female 10/03/2020 8:33 PM CDT Sexual Orientation Straight 07/01/2018 3: 40 PM NETWORK INTERNSHIP documented as of this encounter Plan of Treatment Not on file documented as of this encounter Visit Diagnoses Not on filedocumented in this encounter Additional Health Concerns Assessment Noted Time PHQ-9 Depression Total Score: 7 10/23/19 22 11:44 AM CDT documented as of this encounter Care Teams Inspector Plug Seam Relationship Specialty Start Date End Date Nelson Arroyo PA-C [address] [place] [address] PCP - General Physician Video Rental Clerk - Medical 08/06/18 Salina Doherty MD Internal Medicine 12/01/14 Carrillo Ware APRN DRAWER IN STITCH BONDING MACHINE [address] [place] [address] [id number] Nurse Practitioner Nurse Practitioner 12/16/14 Angelica Jerez NP [facility] [address] [place] [place], [place] [phone] Nurse Practitioner Nurse Practitioner - Family 07/12/16 Nelson Arroyo PA-C [address] [place] [address] Assigned PCP 07/30/20 Pietro Wills MD [address] 703365 Assigned Heart and Vascular Provider 12/14/22 06/26/24 Tank Bucio MD [address] [place], [address] [address] Physician passenger service representative 12/01/23 documented as of this encounter
--- OUTSIDE RECORDS SUMMARY | 2024-10-27 10:25 | XMS_ITS | Encounter Summary ---
Author Organization [place] Address [address] [place] [address]. [place] [address] Care Team Providers Care Applications Sales Consultant Name Role Phone Salina Doherty MD Unavailable [phone] Carrillo Ware APRN DIE DESIGNER APPRENTICE Unavailable [phone] SolitarioAngelica golden NP Unavailable [phone] Nelson Arroyo PA-C Unavailable Nelson Arroyo PA-C Primary Care Provider Chinyere Barbour Unavailable Unavailable Nelson Arroyo PA-C Unavailable [phone] Pietro Wills MD Unavailable Tank Bucio MD Unavailable Reason for Visit * Reason Onset Date Comments Refill Request 08/30/2019 Encounter Details Date Type Department Care Team (Late st Contact Info) Description 08/30/[address] [facility] [address] [facility], [address] [place] [address] Nelson Arroyo PA-C [address] [place] [address] Refill Request Social History Tobacco [...] CDT Legal Sex Female 3:44 AM SENIOR BACKUP ADMINISTRATOR Gender Identity Female 10/03/2020 8:33 PM CDT Sexual Orientation Straight 07/01/2018 3: 40 PM SENIOR BACKUP ADMINISTRATOR documented as of this encounter Miscellaneous Notes * Telephone Encounter - eNlson Arroyo PA-C - 09/01/2019 4:03 PM CDT [...] Depression Total Score: 10 020 3:04 PM SENIOR BACKUP ADMINISTRATOR documented as of this encounter Care Teams Applications Sales Consultant Relationship Specialty Start Date End Date Nelson Arroyo PA-C [address] [address] PCP - General Physician Conductor Pullman - Medical 08/06/18 Salina Doherty MD Internal Medicine 12/01/14 Carrillo Ware APRN DIE DESIGNER APPRENTICE [address] [place] [address] Nurse Practitioner Nurse Practitioner 12/16/14 Angelica Jerez NP [facility] [address] [place] [address] Nurse Practitioner Nurse Practitioner - Family 07/12/16 Nelson Arroyo PA-C [address] [place] [address] Assigned PCP 07/05/18 07/29/20 Chinyere Barbour Personal Advocate & Liaison (PAL) 01/31/20 04/26/20 Nelson Arroyo PA-C [address] [place] [address] Assigned PCP 07/30/20 Pietro Wills MD [address] [place] [address] Assigned Heart and Vascular Provider 12/14/22 06/26/24 Tank Bucio MD [address] [place], [address] [address] Physician single resource boss 12/01/23 documented as of this encounter
--- OUTSIDE RECORDS SUMMARY | 2024-10-27 10:25 | XMS_ITS | Encounter Summary ---
Author Organization [place] Address [address] [place] [address]. [place] [address] Care Team Providers Care Defense Analyst Name Role Phone Salina Doherty MD Unavailable Carrillo Ware APRN HOME ENERGY CONSULTANT Unavailable SolitarioAngelica golden NP Unavailable [phone] Nelson Arroyo PA-C Primary Care Provider [phone] Nelson Arroyo PA-C Unavailable Pietro Wills MD Unavailable Tank Bucio MD Unavailable Reason for Visit * Reason Onset Date Comments Refill Request 12/12/2021 Encounter Details Date Type Department Care Team (Late st Contact Info) Description 12/12/2021 MyC Refill [facility] [address] [place] [address] Nelson Arroyo PA-C [address] [place] [address] Refill Request Social History Tobacco [...] PM CDT Legal Sex Female 3:44 AM COLLEGE INTERN Gender Identity Female 10/03/2020 8:33 PM CDT Sexual Orientation Straight 07/01/2018 3: 40 PM COLLEGE INTERN documented as of this encounter Miscellaneous Notes * Telephone Encounter - Kay Zambrano RN - 12/31/2021 10:14 AM CDT Sent Xcalia to call us regarding her buspar. * Telephone Encounter - Rae Hernandez RN - 12/18/2021 8:38 AM CDT Had refill request for Buspar 10 mg once a day. Pt had 180 tabs ordered on 10/17/21. See also refill request from 12/10/21. Called [facility] pharmacy, to verify how many tabs dispensed from 10/17/21 refill. Spoke to Bayron Raman. States filled Buspar 10mg once daily on 10/25/21, dispensed 90 tabs. In addition, pharmacist states on 12/16/21 pt picked up Buspar 5 mg twice daily 14 tabs for 1 week. RN not able to find the Buspar 5 mg twice daily in our records. Called [facility] pharmacist back to find out who prescribed that prescription. Spoke w/ states Lamine Buspar 5 mg twice daily ordered by Dr Jefferson ([facility]). Called pt to clarify if she has [...] documented as of this encounter Care Teams Defense Analyst Relationship Specialty Start Date End Date Nelson Arroyo PA-C [address] [place] [place] [address] PCP - General Physician Molder Closed Molds - Medical 08/06/18 Salina Doherty MD Internal Medicine 12/01/14 Carrillo Ware APRN HOME ENERGY CONSULTANT [address] [place] [address] Nurse Practitioner Nurse Practitioner 12/16/14 Angelica Jerez NP [facility] [address] [place] [address] Nurse Practitioner Nurse Practitioner - Family 07/12/16 Nelson Arroyo PA-C [address] [place] [address] Assigned PCP 07/30/20 Pietro Wills MD [address] [place] [address] Assigned Heart and Vascular Provider 12/14/22 06/26/24 Tank Bucio MD [address] [place], [facility] 100 [place] [address] Physician financial health counselor 12/01/23 documented as of this encounter
--- OUTSIDE RECORDS SUMMARY | 2024-10-27 10:25 | XMS_ITS | Encounter Summary ---
Author Organization [place] Address [facility] [address] Care Team Providers Care Gelatin Maker Utility Name Role Phone Salina Doherty MD Unavailable Carrillo Ware APRN FACILITY MANAGER Unavailable SolitarioAngelica golden NP Unavailable [phone] Nelson Arroyo PA-C Primary Care Provider Nelson Arroyo PA-C Unavailable [phone] Pietro Wills MD Unavailable Tank Bucio MD Unavailable [phone] Encounter Details Date Type Department Care Team (Late st Contact Info) Description 11/22/2021 [facility] [address] [address] [place] [phone] Sharifa Dumontview Social History Tobacco Use Types [...] PM CDT Legal Sex Female 3:44 AM TONGSMAN Gender Identity Female 10/03/2020 8:33 PM CDT Sexual Orientation Straight 07/01/2018 3: 40 PM TONGSMAN documented as of this encounter Plan of Treatment Not on file documented as of this encounter Visit Diagnoses Not on filedocumented in this encounter Additional Health Concerns Assessment Noted Time PHQ-9 Depression Total Score: 7 10/23/19 22 11:44 AM CDT documented as of this encounter Care Teams Gelatin Maker Utility Relationship Specialty Start Date End Date Nelson Arroyo PA-C [address] [place] [address] PCP - General Physician Developmental Training Counselor - Medical 08/06/18 Salina Doherty MD Internal Medicine 12/01/14 Carrillo Ware APRN FACILITY MANAGER [address] [place] [address] 286065 Nurse Practitioner Nurse Practitioner 12/16/14 Angelica Jerez NP [facility] [address] [place], [place] [address] Nurse Practitioner Nurse Practitioner - Family 07/12/16 eNlson Arroyo PA-C [address] [place] [address] Assigned PCP 07/30/20 Pietro Wills MD [address] [place] [address] Assigned Heart and Vascular Provider 12/14/22 06/26/24 Tank Bucio MD [address] 683907 Physician public transit bus driver 12/01/23 documented as of this encounter
--- OUTSIDE RECORDS SUMMARY | 2024-10-27 10:25 | XMS_ITS | Encounter Summary ---
Author Organization [place] Address [address] [place] [address] Care Team Providers Care Channel Director Name Role Phone Salina Doherty MD Unavailable [phone] Carrillo Ware APRN OIL TANK CAR CLEANER Unavailable SolitarioAngelica golden NP Unavailable [phone] Nelson Arroyo PA-C Unavailable [phone] Nelson Arroyo PA-C Primary Care Provider [phone] Chinyere Barbour Unavailable Unavailable Nelson Arroyo PA-C Unavailable [phone] Pietro Wills MD Unavailable [phone] Tank Bucio MD Unavailable [phone] Encounter Details Date Type Department Care Team (Late st Contact Info) Description 12/15/2018 MyC Medical Advice [address], [address] [place] [address] Tomasa Ramirez MA Social History [...] PM CDT Legal Sex Female 3:44 AM FEEDER ASSOCIATE Gender Identity Female 10/03/2020 8:33 PM CDT Sexual Orientation Straight 07/01/2018 3: 40 PM FEEDER ASSOCIATE documented as of this encounter Plan of Treatment Not on file documented as of this encounter Visit Diagnoses Not on filedocumented in this encounter Additional Health Concerns Assessment Noted Time PHQ-9 Depression Total Score: 7 10/23/19 19 11:12 AM CDT documented as of this encounter Care Teams Channel Director Relationship Specialty Start Date End Date Nelson Arroyo PA-C [address] [address] PCP - General Physician Barber Or Beauty Shop Manager - Medical 08/06/18 Salina Doherty MD Internal Medicine 12/01/14 Carrillo Ware APRN OIL TANK CAR CLEANER [address] [place] [address] Nurse Practitioner Nurse Practitioner 12/16/14 Angelica Jerez NP [address] [address] Nurse Practitioner Nurse Practitioner - Family 07/12/16 Nelson Arroyo PA-C [address] [address] Assigned PCP 07/05/18 07/29/20 Chinyere Barbour Personal Advocate & Liaison (PAL) 01/31/20 04/26/20 Nelson Arroyo PA-C [address] [address] Assigned PCP 07/30/20 Pietro Wills MD [address] [place] [address] Assigned Heart and Vascular Provider 12/14/22 06/26/24 Tank Bucio MD [address] [facility] 100 [place] [address] Physician top knitter 12/01/23 documented as of this encounter
--- OUTSIDE RECORDS SUMMARY | 2024-10-27 10:25 | XMS_ITS | Encounter Summary ---
Author Organization [place] Address [facility] [place] [address] Care Team Providers Care Drum Sander Setter Name Role Phone Salina Doherty MD Unavailable [phone] Carrillo Ware APRN DOUGH MOLDER HAND Unavailable SolitarioAngelica golden NP Unavailable [phone] Nelson Arroyo PA-C Primary Care Provider Nelson Arroyo PA-C Unavailable [phone] Pietro Wills MD Unavailable Tank Bucio MD Unavailable [phone] Encounter Details Date Type Department Care Team (Late st Contact Info) Description 11/06/[address] 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 INSTALLER Gender Identity Female 10/03/2020 8:33 PM CDT Sexual Orientation Straight 07/01/2018 3: 40 PM FIRE SPRINKLER INSTALLER documented as of this encounter Plan of Treatment Not on file documented as of this encounter Visit Diagnoses Not on filedocumented in this encounter Additional Health Concerns Assessment Noted Time PHQ-9 Depression Total Score: 7 10/23/19 22 11:44 AM CDT documented as of this encounter Care Teams Drum Sander Setter Relationship Specialty Start Date End Date Nelson Arroyo PA-C [address] [place] [address] PCP - General Physician Shipping Inspector - Medical 08/06/18 Salina Doherty MD Internal Medicine 12/01/14 Carrillo Ware APRN DOUGH MOLDER HAND [address] [place] [address] 340635 Nurse Practitioner Nurse Practitioner 12/16/14 Angelica Jerez NP [facility] [address] [place], [place] [address] Nurse Practitioner Nurse Practitioner - Family 07/12/16 Nelson Arroyo PA-C [address] [place] [address] Assigned PCP 07/30/20 Pietro Wills MD [address] [place] 114445 Assigned Heart and Vascular Provider 12/14/22 06/26/24 Tank Bucio MD [address] [address] Physician power system electrical engineer 12/01/23 documented as of this encounter
--- OUTSIDE RECORDS SUMMARY | 2024-10-27 10:26 | XMS_ITS | Encounter Summary ---
Author Organization [place] Address [address] [place] [address]. [place] [address] Care Team Providers Care Tool Profiling Machine Set Up Operator Name Role Phone Salina Doherty MD Unavailable Carrillo Ware APRN RN TRAUMA Unavailable SolitarioAngelica golden NP Unavailable [phone] Nelson Arroyo PA-C Primary Care Provider [phone] Nelson Arroyo PA-C Unavailable [phone] Pietro Wills MD Unavailable [phone] Tank Bucio MD Unavailable [phone] Encounter Details Date Type Department Care Team (Late st Contact Info) Description 02/27/2021 [facility] [place] [facility] [address] [place] [address] Nelson Arroyo PA-C [address] [place] [address] Social History Tobacco Use Types [...] CDT Legal Sex Female 3:44 AM SHOT MAN Gender Identity Female 10/03/2020 8:33 PM CDT Sexual Orientation Straight 07/01/2018 3: 40 PM SHOT MAN COVID-19 Exposure Response Date Recorded In the [...] documented as of this encounter Care Teams Tool Profiling Machine Set Up Operator Relationship Specialty Start Date End Date Nelson Arroyo PA-C [address] [place] [address] PCP - General Physician Saw Superintendent - Medical 08/06/18 Salina Doherty MD Internal Medicine 12/01/14 Carrillo Ware APRN CNP [address] [place] [address] 246405 Nurse Practitioner Nurse Practitioner 12/16/14 Angelica Jerez NP [facility] [address] [place] [address] Nurse Practitioner Nurse Practitioner - Family 07/12/16 Nelson Arroyo PA-C [address] [address] Assigned PCP 07/30/20 Pietro Wills MD [address] [place] [address] Assigned Heart and Vascular Provider 12/14/22 06/26/24 Tank Bucio MD [address] [facility] [address] [place] [address] Physician manager cafe 12/01/23 documented as of this encounter
--- OUTSIDE RECORDS SUMMARY | 2024-10-27 10:26 | XMS_ITS | Encounter Summary ---
Author Organization [place] Address [address] [place] [address] Care Team Providers Care Publication Specialist Name Role Phone Salina Doherty MD Unavailable [phone] Carrillo Ware APRN COMMUNITY FUNDRAISER Unavailable [phone] Hillary Unger MD Primary Care P rovider Critical Access HospitalAngelica NP Unavailable [phone] Nelson Arroyo PA-C Unavailable [phone] Hillary Unger MD Unavailable Hillary Unger MD Unavailable Hillary Unger MD Unavailable Nelson Arroyo PA-C Unavailable [phone] Nelson Arroyo PA-C Primary Care Provider Chinyere Barbour Unavailable Unavailable Nelson Arroyo PA-C Unavailable [phone] Pietro Wills MD Unavailable [phone] Tank Bucio MD Unavailable [phone] Encounter Details Date Type Department Care Team (Late st Contact Info) Description 11/13/2016 [facility] Advice [facility] Mental Health & Addiction [address] [place] [address] Solitario Angelica Gautam, MEDIA RELATIONS COORDINATOR [address] [place] [address] Social History Tobacco Use Types Packs/Day Years [...] CDT Legal Sex Female 3:44 AM CORN DETASSELER Gender Identity Female 10/03/2020 8:33 PM CDT Sexual Orientation Straight 07/01/2018 3: 40 PM CORN DETASSELER documented as of this encounter Plan of Treatment Not on file documented as of this encounter Visit Diagnoses Not on filedocumented in this encounter Additional Health Concerns Assessment Noted Time PHQ-9 Depression Total Score: 4 10/06/19 17 7:28 AM CDT documented as of this encounter Care Teams Publication Specialist Relationship Specialty Start Date End Date Hillary Unger MD [address] [place] [address] PCP - General Internal Medicine 08/21/15 08/05/18 Nelson Arroyo PA-C [address] [place] [address] PCP - Assigned PCP 04/12/18 05/02/18 Hillary Unger MD [address] [place] [address] PCP - Assigned PCP 02/01/18 04/11/18 Hillary Unger MD [address] [place] [address] PCP - Assigned PCP 05/03/18 07/07/18 Nelson Arroyo PA-C [address] [place] [address] PCP - General Physician Tugboat Pilot - Medical 08/06/18 Salina Doherty MD Internal Medicine 12/01/14 Carrillo Ware APRN COMMUNITY FUNDRAISER [address] [place] [address] Nurse Practitioner Nurse Practitioner 12/16/14 Angelica Jerez MEDIA RELATIONS COORDINATOR [facility] [address] [place], [place] [address] Nurse Practitioner Nurse Practitioner - Family 07/12/16 Hillary Unger MD [address] [place] [address] Assigned PCP 05/03/18 07/18/18 Nelson Arroyo PA-C [address] [place] [address] Assigned PCP 07/05/18 07/29/20 Chinyere Barbour Personal Advocate & Liaison (PAL) 01/31/20 04/26/20 Nelson Arroyo PA-C [address] [place] [address] Assigned PCP 07/30/20 Pietro Wills MD [address] [place] [address] Assigned Heart and Vascular Provider 12/14/22 06/26/24 Tank Bucio MD [address] [place], [facility] [address] [place] [address] Physician financial coach 12/01/23 documented as of this encounter
--- OUTSIDE RECORDS SUMMARY | 2024-10-27 10:26 | XMS_ITS | Encounter Summary ---
Author Organization [place] Address [address] [place] [address]. [place] [address] Care Team Providers Care Ssn/Ssbn Weapons Equipment Operator Name Role Phone Salina Doherty MD Unavailable Carrillo Ware APRN AUTO PARTS DELIVERY DRIVER Unavailable SolitarioAngelica golden NP Unavailable [phone] Nelson Arroyo PA-C Primary Care Provider Nelson Arroyo PA-C Unavailable Pietro Wills MD Unavailable Tank Bucio MD Unavailable [phone] Encounter Details Date Type Department Care Team (Late st Contact Info) Description 02/09/2021 MyC Medical Advice [facility] [address] [place] [address] Nelson Arroyo PA-C [address] [place] [address] Social History Tobacco Use Types [...] PM CDT Legal Sex Female 3:44 AM TELETYPE MECHANIC Gender Identity Female 10/03/2020 8:33 PM CDT Sexual Orientation Straight 07/01/2018 3: 40 PM TELETYPE MECHANIC documented as of this encounter Plan of Treatment Not on file documented as of this encounter Visit Diagnoses Not on filedocumented in this encounter Additional Health Concerns Assessment Noted Time PHQ-9 Depression Total Score: 4 10/19/19 21 5:12 PM CDT documented as of this encounter Care Teams Ssn/Ssbn Weapons Equipment Operator Relationship Specialty Start Date End Date Nelson Arroyo PA-C [address] [address] PCP - General Physician Lining Baster - Medical 08/06/18 Salina Doherty MD Internal Medicine 12/01/14 Carrillo Ware APRN AUTO PARTS DELIVERY DRIVER [address] [place] [address] 157175 Nurse Practitioner Nurse Practitioner 12/16/14 Angelica Jerez NP [place] [address] [place], [place] [address] Nurse Practitioner Nurse Practitioner - Family 07/12/16 Nelson Arroyo PA-C [address] [address] Assigned PCP 07/30/20 Pietro Wills MD [address] [address] Assigned Heart and Vascular Provider 12/14/22 06/26/24 Tank Bucio MD [address], [facility] 100 [place] [address] Physician vault worker 12/01/23 documented as of this encounter
--- OUTSIDE RECORDS SUMMARY | 2024-10-27 10:26 | XMS_ITS | Encounter Summary ---
Author Organization [place] Address [address] [place] [address]. [place] [address] Care Team Providers Care Chronometer Tester Name Role Phone Salina Doherty MD Unavailable Carrillo Ware APRN DIVINITY PROFESSOR Unavailable SolitarioAngelica golden NP Unavailable Nelson Arroyo PA-C Primary Care Provider Nelson Arroyo PA-C Unavailable Pietro Wills MD Unavailable [phone] Tank Bucio MD Unavailable [phone] Encounter Details Date Type Department Care Team (Late st Contact Info) Description 01/17/2021 MyC Medical Advice [facility] [address] [place] [address] Nelson Arroyo PA-C [address] [place] [address] Social History Tobacco Use Types [...] PM CDT Legal Sex Female 3:44 AM ASSURANCE ASSOCIATE Gender Identity Female 10/03/2020 8:33 PM CDT Sexual Orientation Straight 07/01/2018 3: 40 PM ASSURANCE ASSOCIATE documented as of this encounter Miscellaneous Notes * Telephone Encounter - Carmen Lynn RN - 01/17/2021 5:44 PM CDT Put letter on Nelson' desk- please sign then have someone put up front to apple picker. We could maybe message her when it is done. Carmen Turcios RN documented in this encounter Plan of Treatment Not on file documented as of this encounter Visit Diagnoses Not on filedocumented in this encounter Additional Health Concerns Assessment Noted Time PHQ-9 Depression Total Score: 4 10/19/19 21 5:12 PM CDT documented as of this encounter Care Teams Chronometer Tester Relationship Specialty Start Date End Date Nelson Arroyo PA-C [address] [facility] [place] [address] PCP - General Physician Development Editor - Medical 08/06/18 Salina Doherty MD Internal Medicine 12/01/14 Carrillo Ware APRN DIVINITY PROFESSOR [address] [place] [address] [id number] Nurse Practitioner Nurse Practitioner 12/16/14 Angelica Jerez NP [address] 2378[address] Nurse Practitioner Nurse Practitioner - Family 07/12/16 Nelson Arroyo PA-C [address] [place] [address] Assigned PCP 07/30/20 Pietro Wills MD [address] [place] [address] Assigned Heart and Vascular Provider 12/14/22 06/26/24 Tank Bucio MD [address] [facility] 100 [place] [address] Physician software build engineer 12/01/23 documented as of this encounter
--- OUTSIDE RECORDS SUMMARY | 2024-10-27 10:26 | XMS_ITS | Encounter Summary ---
Author Organization [place] Address [address] [place] [address] Care Team Providers Care Optical Model Maker And Tester Name Role Phone Salina Doherty MD Unavailable [phone] Carrillo Ware APRN TENTER FEEDER Unavailable Hillary Unger MD Primary Care P rovider On License Of [facility] NP Unavailable [phone] Nelson Arroyo PA-C Unavailable [phone] Hillary Unger MD Unavailable Hillary Unger MD Unavailable Hillary Unger MD Unavailable Nelson Arroyo PA-C Unavailable [phone] Nelson Arroyo PA-C Primary Care Provider Chinyere Barbour Unavailable Unavailable Nelson Arroyo PA-C Unavailable [phone] Pietro Wills MD Unavailable [phone] Tank Bucio MD Unavailable [phone] Reason for Visit * Reason Onset Date Comments Refill Request 01/02/2018 Encounter Details Date Type Department Care Team (Late st Contact Info) Description 01/02/[address] [place] [address] Hillary Unger MD [address] [facility], [place] [address] Refill Request Social History Tobacco Use Types [...] PM CDT Legal Sex Female 3:44 AM ASSISTANT GOLF COACH Gender Identity Female 10/03/2020 8:33 PM CDT Sexual Orientation Straight 07/01/2018 3: 40 PM ASSISTANT GOLF COACH documented as of this encounter Plan of Treatment Not on file documented as of this encounter 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), predominantly inattentive type documented in this encounter Additional Health Concerns Assessment Noted Time PHQ-9 Depression Total Score: 6 08/30/19 18 7:34 AM CDT documented as of this encounter Care Teams Optical Model Maker And Tester Relationship Specialty Start Date End Date Hillary Unger MD [address] [place] [address] PCP - General Internal Medicine 08/21/15 08/05/18 Nelson Arroyo PA-C [address] [place] [address] PCP - Assigned PCP 04/12/18 05/02/18 Hillary Unger MD [address] [place] [address] PCP - Assigned PCP 02/01/18 04/11/18 Hillary Unger MD [address] [place] [address] PCP - Assigned PCP 05/03/18 07/07/18 Nelson Arroyo PA-C [address] [place] [address] PCP - General Physician Auto Collision Repair Instructor - Medical 08/06/18 Salina Doherty MD Internal Medicine 12/01/14 Carrillo Ware APRN TENTER FEEDER [address] [place] [address] Nurse Practitioner Nurse Practitioner 12/16/14 Angeilca Jerez NP [facility] [address] [place] [address] Nurse Practitioner Nurse Practitioner - Family 07/12/16 Hillary Unger MD [address] [place] [address] Assigned PCP 05/03/18 07/18/18 Nelson Arroyo PA-C [address] [place] [address] Assigned PCP 07/05/18 07/29/20 Chinyere Barbour Personal Advocate & Liaison (PAL) 01/31/20 04/26/20 Nelson Arroyo PA-C [address] [place] [address] Assigned PCP 07/30/20 Pietro Wills MD [address] [place] [address] Assigned Heart and Vascular Provider 12/14/22 06/26/24 Tank Bucio MD [address] [address] Physician type photography supervisor 12/01/23 documented as of this encounter
--- OUTSIDE RECORDS SUMMARY | 2024-10-27 10:26 | XMS_ITS | Encounter Summary ---
Author Organization [place] Address [address] [place] [address]. [place] [address] Care Team Providers Care Staff Sonographer Name Role Phone Salina Doherty MD Unavailable Carrillo Ware APRN METERS SUPERINTENDENT Unavailable SolitarioAngelica golden NP Unavailable [phone] Nelson Arroyo PA-C Primary Care Provider [phone] Nelson Arroyo PA-C Unavailable Pietro Wills MD Unavailable Tank Bucio MD Unavailable [phone] Encounter Details Date Type Department Care Team (Late st Contact Info) Description 11/21/2020 MyC Medical Advice [facility] [address] [place] [address] Nelson Arroyo PA-C [address] [place] [address] Social History Tobacco Use Types [...] PM CDT Legal Sex Female 3:44 AM HORSE RACE TIMER Gender Identity Female 10/03/2020 8:33 PM CDT Sexual Orientation Straight 07/01/2018 3: 40 PM HORSE RACE TIMER COVID-19 Exposure Response Date Recorded In the [...] as of this encounter Care Teams Staff Sonographer Relationship Specialty Start Date End Date Nelson Arroyo PA-C [address] [place] [address] PCP - General Physician Department Clinician - Medical 08/06/18 Salina Doherty MD Internal Medicine 12/01/14 Carrillo Ware APRN METERS SUPERINTENDENT [address] [place] [address] Nurse Practitioner Nurse Practitioner 12/16/14 Angelica Jerez NP [facility] [address] [place] [address] Nurse Practitioner Nurse Practitioner - Family 07/12/16 Nelson Arroyo PA-C [address] [place] [address] Assigned PCP 07/30/20 Pietro Wills MD [address] [place] [address] Assigned Heart and Vascular Provider 12/14/22 06/26/24 Tank Bucio MD [address] [facility] [address] [place] [address] Physician placement officer 12/01/23 documented as of this encounter
--- OUTSIDE RECORDS SUMMARY | 2024-10-27 10:26 | XMS_ITS | Encounter Summary ---
Author Organization [place] Address [address] [place] [address]. [place] [address] Care Team Providers Care Derrick Boat Lever Operator Name Role Phone Salina Doherty MD Unavailable [phone] Carrillo Ware APRN PAYROLL BENEFITS ADMINISTRATOR Unavailable SolitarioAngelica golden NP Unavailable [phone] Nelson Arroyo PA-C Primary Care Provider Nelson Arroyo PA-C Unavailable Pietro Wills MD Unavailable Tank Bucio MD Unavailable [phone] Reason for Visit * Reason Onset Date Comments Refill Request 01/12/2021 (ADDERALL XR) 30 MG Encounter Details Date Type Department Care Team (Late st Contact Info) Description 01/12/[address] [facility] [address] [place] [address] Nelson Arroyo PA-C [address] [place] [address] Refill Request ((ADDERALL XR) 30 [...] PM CDT Legal Sex Female 3:44 AM SHOVEL OILER Gender Identity Female 10/03/2020 8:33 PM CDT Sexual Orientation Straight 07/01/2018 3: 40 PM SHOVEL OILER documented as of this encounter Plan of Treatment Not on file documented as of this encounter 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), predominantly inattentive type documented in this encounter Additional Health Concerns Assessment Noted Time PHQ-9 Depression Total Score: 4 10/19/19 21 5:12 PM CDT documented as of this encounter Care Teams Derrick Boat Lever Operator Relationship Specialty Start Date End Date Nelson Arroyo PA-C [address] [place] [address] PCP - General Physician Mc Kay Stitcher - Medical 08/06/18 Salina Doherty MD Internal Medicine 12/01/14 Carrillo Ware APRN CNP [address] [place] [id number] Nurse Practitioner Nurse Practitioner 12/16/14 Angelica Jerez NP [place] [address] [address] [place], [place] [address] Nurse Practitioner Nurse Practitioner - Family 07/12/16 Nelson Arroyo PA-C [address] [place] [address] Assigned PCP 07/30/20 Pietro Wills MD [address] [address] Assigned Heart and Vascular Provider 12/14/22 06/26/24 Tank Bucio MD [address], [facility] 100 [place] [address] Physician engine assembler 12/01/23 documented as of this encounter
--- OUTSIDE RECORDS SUMMARY | 2024-10-27 10:26 | XMS_ITS | Encounter Summary ---
Author Organization [place] Address [address] [place] [address]. [place] [address] Care Team Providers Care Core Layer Machine Operator Name Role Phone Salina Doherty MD Unavailable Carrillo Ware APRN REFINING MACHINE OPERATOR Unavailable SolitarioAngelica golden NP Unavailable [phone] Nelson Arroyo PA-C Primary Care Provider Nelson Arroyo PA-C Unavailable [phone] Pietro Wills MD Unavailable [phone] Tank Bucio MD Unavailable Reason for Visit * Reason Onset Date Comments Medication Refill Refill Request 12/19/2020 Encounter Details Date Type Department Care Team (Late st Contact Info) Description 12/19/2020 Refill [facility] [place] [address] [place] [address] Vidhi Coffman MD [address] [place] [address] Medication Refill; Refill Request Social History Tobacco [...] PM CDT Legal Sex Female 3:44 AM COVER SEAMER Gender Identity Female 10/03/2020 8:33 PM CDT Sexual Orientation Straight 07/01/2018 3: 40 PM COVER SEAMER COVID-19 Exposure Response Date Recorded In the [...] as of this encounter Care Teams Core Layer Machine Operator Relationship Specialty Start Date End Date Nelson Arroyo PA-C [address] [place] [address] PCP - General Physician Ice Sculptor - Medical 08/06/18 Salina Doherty MD Internal Medicine 12/01/14 Carrillo Ware APRN REFINING MACHINE OPERATOR [address] [place] [address] Nurse Practitioner Nurse Practitioner 12/16/14 Angelica Jerez NP [address] [place] [address] Nurse Practitioner Nurse Practitioner - Family 07/12/16 Nelson Arroyo PA-C [address] [place] [address] Assigned PCP 07/30/20 Pietro Wills MD [address] [place] [address] Assigned Heart and Vascular Provider 12/14/22 06/26/24 Tank Bucio MD [address], [facility] [address] [place] [address] Physician jumpbasting lining baster 12/01/23 documented as of this encounter
--- OUTSIDE RECORDS SUMMARY | 2024-10-27 10:26 | XMS_ITS | Encounter Summary ---
Author Organization [place] Address [address] [place] [address]. [place] [address] Care Team Providers Care Item Repair Manager Name Role Phone Salina Doherty MD Unavailable [phone] Crarillo Ware APRN ASSOCIATE RESEARCH SCIENTIST Unavailable [phone] SolitarioAngelica golden NP Unavailable [phone] Nelson Arroyo PA-C Primary Care Provider Nelson Arroyo PA-C Unavailable Pietro Wills MD Unavailable Tank Bucio MD Unavailable Reason for Visit * Reason Comments Medication Refill Encounter Details Date Type Department Care Team (Late st Contact Info) Description 10/30/2020 Refill [facility] [address] [place] [address] Nelson Arroyo PA-C [address] [place] [address] Medication Refill Social History Tobacco [...] PM CDT Legal Sex Female 3:44 AM THERAPEUTIC RECREATION SPECIALIST Gender Identity Female 10/03/2020 8:33 PM CDT Sexual Orientation Straight 07/01/2018 3: 40 PM THERAPEUTIC RECREATION SPECIALIST COVID-19 Exposure Response Date Recorded In the [...] Mishel Walker MD, RI PROC RM 2 [facility] [address] [facility] [address] [facility] [address] Routing refill request to provider for review/approval because: Drug not on the [facility], UMP or [facility] refill protocol or controlled substance Minda Vergara RN on 10/31/2020 at 4:03 PM documented in this encounter Plan of Treatment Not on file documented as of this encounter Visit Diagnoses Diagnosis Muscle spasm Spasm of muscle documented in this encounter Additional Health Concerns Assessment Noted Time PHQ-9 Depression Total Score: 4 10/19/19 21 5:12 PM CDT documented as of this encounter Care Teams Item Repair Manager Relationship Specialty Start Date End Date Nelson Arroyo PA-C [address] [place] [address] PCP - General Physician Road Mender - Medical 08/06/18 Salina Doherty MD Internal Medicine 12/01/14 Carrillo Ware APRN ASSOCIATE RESEARCH SCIENTIST [address] [place] [address] Nurse Practitioner Nurse Practitioner 12/16/14 Angelica Jerez SHOP LABORER [facility] [address] [place], [place] [address] Nurse Practitioner Nurse Practitioner - Family 07/12/16 Nelson Arroyo PA-C [address] [place] [address] Assigned PCP 07/30/20 Pietro Wills MD [address] [place] [address] Assigned Heart and Vascular Provider 12/14/22 06/26/24 Tank Bucio MD [address] [facility], [address] [address] Physician manager of supply chain 12/01/23 documented as of this encounter
--- OUTSIDE RECORDS SUMMARY | 2024-10-27 10:26 | XMS_ITS | Encounter Summary ---
Author Organization [place] Address [address] [place] [address]. [place] [address] Care Team Providers Care Tank Cooper Name Role Phone Salina Doherty MD Unavailable Carrillo Ware APRN GLOBAL PRODUCT MANAGER Unavailable SolitarioAngelica golden NP Unavailable [phone] Nelson Arroyo PA-C Primary Care Provider Nelson Arroyo PA-C Unavailable Pietro Wills MD Unavailable Tank Bucio MD Unavailable Reason for Visit * Reason Onset Date Comments Refill Request 01/18/2021 (ADDERALL XR) 30 MG, Adderall 10mg Encounter Details Date Type Department Care Team (Late st Contact Info) Description 01/18/2021 MyC Refill [facility] [address] [place] [address] Nelson Arroyo PA-C [address] [place] [address] Refill Request ((ADDERALL XR) 30 [...] PM CDT Legal Sex Female 3:44 AM SOAKER SODA WORKER Gender Identity Female 10/03/2020 8:33 PM CDT Sexual Orientation Straight 07/01/2018 3: 40 PM SOAKER SODA WORKER documented as of this encounter Miscellaneous Notes * Telephone Encounter - Nelson Arroyo PA-C - 01/31/2021 5:02 PM CDT She has these on file for 01/23/21. I thought I had already responded to this and see that I didn't.Concepción was seeing th AWNING HANGER where we made a brief dose change to 40mg but patient did not like it Terrance sent in again for 30mg. We canceled the remaining Rx's for 40mg (TWO 20mg XR capsules). She should be set for this month. Nelson * Telephone Encounter - Concepción Gnozalez APRN CNP - 01/22/2021 11:29 AM CDT [...] mg) by mouth 2 times daily Her AWNING HANGER is confusing to me. She filled 20 [...] the [facility], [facility] or [facility] refill protocol or controlled substance Maude Singh RN documented in this encounter Plan of Treatment Not on file documented as of this encounter 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), predominantly inattentive type documented in this encounter Additional Health Concerns Assessment Noted Time PHQ-9 Depression Total Score: 4 10/19/19 21 5:12 PM CDT documented as of this encounter Care Teams Tank Cooper Relationship Specialty Start Date End Date Nelson Arroyo PA-C [address] [place] [address] PCP - General Physician Expanded Duty Dental Assistant - Medical 08/06/18 Salina Doherty MD Internal Medicine 12/01/14 Carrillo Ware APRN GLOBAL PRODUCT MANAGER [address] [place] [address]12385 Nurse Practitioner Nurse Practitioner 12/16/14 Angelica Jerez NP [address] [address] Nurse Practitioner Nurse Practitioner - Family 07/12/16 Nelson Arroyo PA-C [address] [place] [address] Assigned PCP 07/30/20 Pietro Wills MD [address] [place] [address] Assigned Heart and Vascular Provider 12/14/22 06/26/24 Tank Bucio MD [address], [address] [address] Physician wax cutter 12/01/23 documented as of this encounter
--- OUTSIDE RECORDS SUMMARY | 2024-10-27 10:26 | XMS_ITS | Encounter Summary ---
Author Organization [place] Address [address] [place] [address] Care Team Providers Care Chief Cruiser Name Role Phone Salina Doherty MD Unavailable [phone] Carrillo Ware APRN INTERVENTIONAL RADIOLOGY TECHNOLOGIST Unavailable Hillary Unger MD Primary Care P rovider [facility] NP Unavailable [phone] Nelson Arroyo PA-C Unavailable Hillary Unger MD Unavailable Hillary Unger MD Unavailable Hillary Unger MD Unavailable Nelson Arroyo PA-C Unavailable [phone] Nelson Arroyo PA-C Primary Care Provider Chinyere Barbour Unavailable Unavailable Nelson Arroyo PA-C Unavailable [phone] Pietro Wills MD Unavailable [phone] Tank Bucio MD Unavailable [phone] Reason for Visit * Reason Onset Date Comments MyChart Communication 08/26/2016 Encounter Details Date Type Department Care Team (Late st Contact Info) Description 08/26/[address] [place] [address] Hillary Unger MD [address] [place] [address] MyChart Communication Social History Tobacco Use Types [...] PM CDT Legal Sex Female 3:44 AM CISTERN ROOM WORKING SUPERVISOR Gender Identity Female 10/03/2020 8:33 PM CDT Sexual Orientation Straight 07/01/2018 3: 40 PM CISTERN ROOM WORKING SUPERVISOR documented as of this encounter Miscellaneous [...] Total Score: 7 07/14/19 17 7:14 AM CISTERN ROOM WORKING SUPERVISOR documented as of this encounter Care Teams Chief Cruiser Relationship Specialty Start Date End Date Hillary Unger MD [address] [place] [address] PCP - General Internal Medicine 08/21/15 08/05/18 Nelson Arroyo PA-C [address] [place] [address] PCP - Assigned PCP 04/12/18 05/02/18 Hillary Unger MD [address] [place] [address] PCP - Assigned PCP 02/01/18 04/11/18 Hillary Unger MD [address] [place] [address] PCP - Assigned PCP 05/03/18 07/07/18 Nelson Arroyo PA-C [address] [place] [address] PCP - General Physician Machine Feed Operator - Medical 08/06/18 Salina Doherty MD Internal Medicine 12/01/14 Carrillo Ware APRN INTERVENTIONAL RADIOLOGY TECHNOLOGIST [address] [place] [address] Nurse Practitioner Nurse Practitioner 12/16/14 Angelica Jerez NP [facility] [address] [place] [address] Nurse Practitioner Nurse Practitioner - Family 07/12/16 Hillary Unger MD [address] [place] [address] Assigned PCP 05/03/18 07/18/18 Nelson Arroyo PA-C [address] [address] Assigned PCP 07/05/18 07/29/20 Chinyere Barbour Personal Advocate & Liaison (PAL) 01/31/20 04/26/20 Nelson Arroyo PA-C [address] [address] [place] [id number] Assigned PCP 07/30/20 Pietro Wills MD [address] [place] [address] Assigned Heart and Vascular Provider 12/14/22 06/26/24 Tank Bucio MD [address] [facility], [address] [address] Physician testing coordinator 12/01/23 documented as of this encounter
--- OUTSIDE RECORDS SUMMARY | 2024-10-27 10:26 | XMS_ITS | Encounter Summary ---
Author Organization [place] Address [address] [place] [address]. [place] [address] Care Team Providers Care Filling Machine Operator Name Role Phone Salina Doherty MD Unavailable [phone] Carrillo Ware APRN UNDERWRITING OPERATIONS MANAGER Unavailable [phone] SolitarioAngelica golden NP Unavailable [phone] Nelson Arroyo PA-C Primary Care Provider Nelson Arroyo PA-C Unavailable Pietro Wills MD Unavailable Tank Bucio MD Unavailable [phone] Reason for Visit * Reason Onset Date Comments Refill Request 05/06/2021 Encounter Details Date Type Department Care Team (Late st Contact Info) Description 05/06/2021 MyC Refill [facility] [address] [place] [address] Nelson Arroyo PA-C [address] [place] [address] Refill Request Social History Tobacco [...] PM CDT Legal Sex Female 3:44 AM VORTEX OPERATOR Gender Identity Female 10/03/2020 8:33 PM CDT Sexual Orientation Straight 07/01/2018 3: 40 PM VORTEX OPERATOR documented as of this encounter Miscellaneous Notes * Telephone Encounter - Natalie Arthur - 05/14/2021 1:46 PM CST PT had appt with PCP today. -Natalie Arthur Plow Mechanic EX OPERATOR * Telephone Encounter - Carmen Lynn RN - 05/07/2021 11:05 AM VORTEX OPERATOR Routing refill request to provider for review/approval because: Drug not on the [facility] refill protocol Routing to station to assist with scheduling. *RN did try calling to schedule- LMTCB. AND sent [facility] message. Return in about 6 months (around 04/19/2021) for depression/anxiety med check, ADHD med check. ?? Nelson Arroyo PA-C [facility] Carmen Turcios RN EX OPERATOR documented in this encounter Plan of Treatment Not on file documented as of this encounter 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), predominantly inattentive type documented in this encounter Additional Health Concerns Assessment Noted Time PHQ-9 Depression Total Score: 0 02/24/20 21 7:01 AM CDT documented as of this encounter Care Teams Filling Machine Operator Relationship Specialty Start Date End Date Nelson Arroyo PA-C [address] [place] [address] PCP - General Physician List Of First Job Ideas - Medical 08/06/18 Salina Doherty MD Internal Medicine 12/01/14 Carrillo Ware APRN CNP [address] [place] [address] Nurse Practitioner Nurse Practitioner 12/16/14 Angelica Jerez NP [facility] [address] [place] [address] Nurse Practitioner Nurse Practitioner - Family 07/12/16 Nelson Arroyo PA-C [address] [place] [address] Assigned PCP 07/30/20 Pietro Wills MD [address] [place] [address] Assigned Heart and Vascular Provider 12/14/22 06/26/24 Tank Bucio MD [facility] [address] [address] Physician formula bottler 12/01/23 documented as of this encounter
--- OUTSIDE RECORDS SUMMARY | 2024-10-27 10:26 | XMS_ITS | Encounter Summary ---
Author Organization [place] Address [address] [place] [address] Care Team Providers Care Cdl B Driver Name Role Phone Salina Doherty MD Unavailable [phone] Carrillo Ware APRN OPTICAL COATING TECHNICIAN Unavailable [phone] Hillary Unger MD Primary Care P rovider [facility] Unavailable [phone] Nelson Arroyo PA-C Unavailable Hillary Unger MD Unavailable Hillary Unger MD Unavailable Hillary Unger MD Unavailable Nelson Arroyo PA-C Unavailable [phone] Nelson Arroyo PA-C Primary Care Provider Chinyere Barbour Unavailable Unavailable Nelson Arroyo PA-C Unavailable [phone] Pietro Wills MD Unavailable [phone] Tank Bucio MD Unavailable [phone] Encounter Details Date Type Department Care Team (Late st Contact Info) Description 11/11/2016 [facility] Mental Health & Addiction [address] [place] [phone] Solitario Angelica Gautam, GLAZE SUPERVISOR [address] [place], [place] [id number] Social History Tobacco Use Types Packs/Day Years [...] PM CDT Legal Sex Female 3:44 AM LATIN TEACHER Gender Identity Female 10/03/2020 8:33 PM CDT Sexual Orientation Straight 07/01/2018 3: 40 PM LATIN TEACHER documented as of this encounter Miscellaneous [...] documented as of this encounter Care Teams Cdl B Driver Relationship Specialty Start Date End Date Hillary Unger MD [facility] [place] [address] PCP - General Internal Medicine 08/21/15 08/05/18 Nelson Arroyo PA-C [address] [place] [address] PCP - Assigned PCP 04/12/18 05/02/18 Hillary Unger MD [address] [place] [address] PCP - Assigned PCP 02/01/18 04/11/18 Hillary Unger MD [address] [place] [address] PCP - Assigned PCP 05/03/18 07/07/18 Nelson Arroyo PA-C [address] [place], [place] [id number] PCP - General Physician Pickler Helper - Medical 08/06/18 Salina Doherty MD Internal Medicine 12/01/14 Carrillo Ware APRN OPTICAL COATING TECHNICIAN [address] [place] [address] Nurse Practitioner Nurse Practitioner 12/16/14 Angelica Jerez NP [facility] [address] [place] [address] Nurse Practitioner Nurse Practitioner - Family 07/12/16 Hillary Unger MD [address] [place] [address] Assigned PCP 05/03/18 07/18/18 Nelson Arroyo PA-C [address] [address] Assigned PCP 07/05/18 07/29/20 Chinyere Barbour Personal Advocate & Liaison (PAL) 01/31/20 04/26/20 Nelson Arroyo PA-C [address] [place] [id number] Assigned PCP 07/30/20 Pietro Wills MD [address] [place] [address] Assigned Heart and Vascular Provider 12/14/22 06/26/24 Tank Bucio MD [address], [facility] [address] [place] [address] Physician neuro psych sales specialist 12/01/23 documented as of this encounter
--- OUTSIDE RECORDS SUMMARY | 2024-10-27 10:26 | XMS_ITS | Encounter Summary ---
Author Organization [place] Address [address] [place] [address] Care Team Providers Care Psychiatric Aide Instructor Name Role Phone Salina Doherty MD Unavailable [phone] Carrillo Ware APRN QUALITY SUPERVISOR Unavailable [phone] Hillary Unger MD Primary Care P rovider [facility] NP Unavailable [phone] Nelson Arroyo PA-C Unavailable [phone] Hillary Unger MD Unavailable Hillary Unger MD Unavailable Hillary Unger MD Unavailable Nelson Arroyo PA-C Unavailable [phone] Nelson Arroyo PA-C Primary Care Provider Chinyere Barbour Unavailable Unavailable Nelson Arroyo PA-C Unavailable [phone] Pietro Wills MD Unavailable [phone] Tank Bucio MD Unavailable [phone] Reason for Visit * Reason Onset Date Comments Refill Request 01/07/2017 Encounter Details Date Type Department Care Team (Late st Contact Info) Description [facility]2017 [facility] [address] [place] [phone] Angelica Jerez, DROP CLIPPER [address] [place] [address] Refill Request Social History Tobacco Use Types [...] PM CDT Legal Sex Female 3:44 AM GROUP CAPTAIN Gender Identity Female 10/03/2020 8:33 PM CDT Sexual Orientation Straight 07/01/2018 3: 40 PM GROUP CAPTAIN documented as of this encounter Miscellaneous Notes * Telephone Encounter - Mariella Patterson RN - 01/09/2017 11:30 AM CDT Klonopin (NOT ON RN PROTOCOL) and hydroxyzine. Last Written Prescription Date: 12/06/16 Last Fill Quantity: 30, # refills: 0 Last Office Visit with G, P or [facility] prescribing provider: 12/06/16 No appointment scheduled. From 12/06/16 OV with Angelica Jerez, PhD, TRAINING AND DEVELOPMENT OFFICER, QUALITY SUPERVISOR Assessment: Nidia Crystal reports feeling stable on [...] or call after hours crisis line at [phone] or [phone]. ?? Continue individual/group therapy as planned. ?? Schedule an appointment with me in 6-8 weeks or sooner as needed. [facility] at [phone] to schedule. ?? Follow up with primary care provider as planned or for acute medical concerns. ?? Call the psychiatric nurse line with medication questions or concerns at [phone]. ?? My Practice Policy was reviewed and signed: YES ?? ZapMehart may be used to communicate with your [...] and stabilization. ?? Signed: Angelica Jerez, PhD, TRAINING AND DEVELOPMENT OFFICER, QUALITY SUPERVISOR Psychiatry [facility] Date: 01/09/17 Query Report Page#: 1 Patient [...] 12/23/2016 DEXTROAMP-AMPHETAMIN 10 MG TAB 60.00 30 [id number] 12/17/2016 [id number] N [id number] 00.0 12/06/2016 DEXTROAMP-AMPHET ER 30 MG CAP 31.00 31 [id number] 10/18/2016 [id number] N [id number] 12/06/2016 CLONAZEPAM 1 MG TABLET 30.00 30 [id number] 12/06/2016 [id number] N [id number] 00.0 12/06/2016 GABAPENTIN 300 MG CAPSULE 30.00 30 [id number] 12/06/2016 [id number] N [id number] 00.0 11/21/2016 DEXTROAMP-AMPHETAMIN 10 MG TAB 60.00 30 [id number] 11/21/2016 [id number] N [id number] 00.0 11/08/2016 GABAPENTIN 300 MG CAPSULE 30.00 30 [id number] 10/04/2016 [id number] R [id number] 00.0 10/22/2016 DEXTROAMP-AMPHETAMIN 10 MG TAB 60.00 30 [id number] 10/18/2016 [id number] N [id number] 00.0 10/15/2016 CLONAZEPAM 1 MG TABLET 30.00 30 [id number] 10/15/2016 [id number] N [id number] 00.0 10/04/2016 GABAPENTIN 300 MG CAPSULE 30.00 30 [id number] 10/04/2016 [id number] N [id number] 00.0 09/10/2016 CLONAZEPAM 1 MG TABLET 30.00 30 [id number] 09/09/2016 [id number] N [id number] 00.0 08/30/2016 DEXTROAMP-AMPHET ER 30 MG CAP 31.00 31 [id number] 08/23/2016 [id number] N [id number] 08/30/2016 DEXTROAMP-AMPHETAMIN 10 MG TAB 30.00 30 [id number] 08/19/2016 [id number] N [id number] 00.0 08/16/2016 OXYCODONE-ACETAMINOPHEN 5-325 10.00 2 [id number] 08/16/2016 [id number] N [id number] 37.5 08/09/2016 CLONAZEPAM 1 MG TABLET 30.00 30 [id number] 07/12/2016 [id number] R [id number] 00.0 08/08/2016 OXYCODONE-ACETAMINOPHEN 5-325 12.00 3 [id number] 08/08/2016 [id number] N [id number] 30.0 08/08/2016 GABAPENTIN 300 MG CAPSULE 30.00 30 [id number] 07/12/2016 1143975 R [id number] 00.0 07/18/2016 GABAPENTIN 100 MG CAPSULE 30.00 30 [id number] 07/18/2016 [id number] N [id number] 00.0 07/16/2016 DEXTROAMP-AMPHET ER 30 MG CAP 31.00 31 [id number] 07/11/2016 [id number] N [id number] 07/16/2016 DEXTROAMP-AMPHETAMIN 10 MG TAB 30.00 30 [id number] 07/11/2016 [id number] N [id number] 00.0 07/12/2016 GABAPENTIN 300 MG CAPSULE 30.00 30 [id number] 07/12/2016 [id number] N [id number] 00.0 07/12/2016 CLONAZEPAM 1 MG TABLET 30.00 30 [id number] 07/12/2016 [id number] N [id number] 00.0 06/17/2016 DEXTROAMP-AMPHETAMIN 10 MG TAB 30.00 30 [id number] 06/06/2016 [id number] N [id number] 00.0 06/17/2016 DEXTROAMP-AMPHET ER 30 MG CAP 31.00 31 [id number] 06/06/2016 [id number] N [id number] 05/03/2016 DEXTROAMP-AMPHET ER 30 MG CAP 31.00 31 [id number] 04/29/2016 [id number] N [id number] 05/03/2016 DEXTROAMP-AMPHETAMIN 10 MG TAB 30.00 30 [id number] 04/29/2016 [id number] N [id number] 00.0 04/03/2016 CLONAZEPAM 0.5 MG TABLET 90.00 30 [id number] 03/05/2016 [id number] R [id number] 00.0 03/25/2016 DEXTROAMP-AMPHET ER 30 MG CAP 31.00 31 [id number] 03/22/2016 [id number] N [id number] 03/25/2016 DEXTROAMP-AMPHETAMIN 10 MG TAB 30.00 30 [id number] 03/22/2016 [id number] N [id number] 00.0 03/05/2016 CLONAZEPAM 0.5 MG TABLET 90.00 30 [id number] 03/05/2016 [id number] N [id number] 00.0 02/20/2016 ALPRAZOLAM 0.25 MG TABLET 20.00 6 [id number] 02/20/2016 [id number] N [id number] 00.0 02/19/2016 DEXTROAMP-AMPHET ER 30 MG CAP 30.00 30 [id number] 12/20/2015 [id number] N [id number] 02/19/2016 DEXTROAMP-AMPHETAMIN 10 MG TAB 30.00 30 [id number] 12/20/2015 [id number] N [id number] 00.0 01/20/2016 DEXTROAMP-AMPHETAMIN 10 MG TAB 30.00 30 [id number] 12/20/2015 [id number] N [id number] 00.0 01/20/2016 DEXTROAMP-AMPHET ER 30 MG CAP 30.00 30 [id number] 12/20/2015 [id number] N [id number] 01/17/2016 ALPRAZOLAM 0.25 MG TABLET 20.00 6 [id number] 01/17/2016 [id number] N [id number] 00.0 *N/R N=New R=Refill +MED Daily Per CDC guidance, the conversion factors and associated daily morphine milligram equivalents for drugs prescribed as part of medication-assisted treatment for opioid use disorder should not be used to benchmark against dosage thresholds meant for opioids * Telephone Encounter - Marina Andrade RN - 01/08/2017 1:05 PM CDTMessage [facility]: Original authorizing provider: JACQUE Novak would like a refill of the following medications: hydrOXYzine (ATARAX) 50 MG tablet [Angelica Jerez NP] clonazePAM (KLONOPIN) 1 MG tablet [Angelica Jerez NP] Preferred pharmacy: [address] Comment: documented in this encounter Plan of Treatment Not on file documented as of this encounter Visit Diagnoses Diagnosis Persistent insomnia Persistent disorder of initiating or maintaining sleep SHANTELL (generalized anxiety disorder) Generalized anxiety disorder documented in this encounter Additional Health Concerns Assessment Noted Time PHQ-9 Depression Total Score: 3 12/07/19 17 2:21 PM CDT documented as of this encounter Care Teams Psychiatric Aide Instructor Relationship Specialty Start Date End Date Hillary Unger MD [address] [place] [address] PCP - General Internal Medicine 08/21/15 08/05/18 Nelson Arroyo PA-C [address] [facility] [place] [address] PCP - Assigned PCP 04/12/18 05/02/18 Hillary Unger MD [address] [place] [address] PCP - Assigned PCP 02/01/18 04/11/18 Hillary Unger MD [address] [place] [address] PCP - Assigned PCP 05/03/18 07/07/18 Nelson Arroyo PA-C [address], [place] [address] PCP - General Physician Seed Collector - Medical 08/06/18 Salina Doherty MD Internal Medicine 12/01/14 Carrillo Ware APRN QUALITY SUPERVISOR [address] [place] [address] Nurse Practitioner Nurse Practitioner 12/16/14 Angelica Jerez NP [facility] [address] [place] [address] Nurse Practitioner Nurse Practitioner - Family 07/12/16 Hillary Unger MD [address] [place] [address] Assigned PCP 05/03/18 07/18/18 Nelson Arroyo PA-C [address] [address] [address] Assigned PCP 07/05/18 07/29/20 Chinyere Barbour Personal Advocate & Liaison (PAL) 01/31/20 04/26/20 Nelson Arroyo PA-C [address] [place] [address] Assigned PCP 07/30/20 Pietro Wills MD [address] [place] [address] Assigned Heart and Vascular Provider 12/14/22 06/26/24 Tank Bucio MD [address], [facility] [address] [place] [address] Physician glory hole tender 12/01/23 documented as of this encounter
--- OUTSIDE RECORDS SUMMARY | 2024-10-27 10:26 | XMS_ITS | Encounter Summary ---
Author Organization [place] Address [address] [place] [address] Care Team Providers Care Industrial Boilermaker Name Role Phone Salina Doherty MD Unavailable [phone] Carrillo Ware APRN ROCK LOADER Unavailable Hillary Unger MD Primary Care P rovider SolitraioAngelica golden NP Unavailable [phone] Nelson Arroyo PA-C Unavailable Hillary Unger MD Unavailable Hillary Unger MD Unavailable Hillary Unger MD Unavailable Nelson Arroyo PA-C Unavailable [phone] Nelson Arroyo PA-C Primary Care Provider [phone] Chinyere Barbour Unavailable Unavailable Nelson Arroyo PA-C Unavailable [phone] Pietro Wills MD Unavailable [phone] Tank Bucio MD Unavailable [phone] Encounter Details Date Type Department Care Team (Late st Contact Info) Description 02/06/2018 [facility] Medical [address] [place] [address] Jacquelyn Guillen LPN Social History Tobacco Use [...] CDT Legal Sex Female 3:44 AM PROCESS MANAGER Gender Identity Female 10/03/2020 8:33 PM CDT Sexual Orientation Straight 07/01/2018 3: 40 PM PROCESS MANAGER documented as of this encounter Plan of Treatment Not on file documented as of this encounter Visit Diagnoses Not on filedocumented in this encounter Additional Health Concerns Assessment Noted Time PHQ-9 Depression Total Score: 6 08/30/19 18 7:34 AM CDT documented as of this encounter Care Teams Industrial Boilermaker Relationship Specialty Start Date End Date Hillary Unger MD [address] [place] [address] PCP - General Internal Medicine 08/21/15 08/05/18 Nelson Arroyo PA-C [address] [place] [address] PCP - Assigned PCP 04/12/18 05/02/18 Hillary Unger MD [address] [place] [address] PCP - Assigned PCP 02/01/18 04/11/18 Hillary Unger MD [address] [place] [address] PCP - Assigned PCP 05/03/18 07/07/18 Nelson Arroyo PA-C [address] [place] [address] PCP - General Physician Director Non Profit - Medical 08/06/18 Salina Doherty MD Internal Medicine 12/01/14 Carrillo Ware APRN ROCK LOADER [address] [place] [address] Nurse Practitioner Nurse Practitioner 12/16/14 Angelica Jerez NP [facility] [address] [place] [address] Nurse Practitioner Nurse Practitioner - Family 07/12/16 Hillary Unger MD [address] [place], [place] [address] Assigned PCP 05/03/18 07/18/18 Nelson Arroyo PA-C [address] [place] [address] Assigned PCP 07/05/18 07/29/20 Chinyere Barbour Personal Advocate & Liaison (PAL) 01/31/20 04/26/20 Nelson Arroyo PA-C [address] [place] [address] Assigned PCP 07/30/20 Pietro Wills MD [address] [id number] Assigned Heart and Vascular Provider 12/14/22 06/26/24 Tank Bucio MD [address], [address] [address] Physician cancer registrar 12/01/23 documented as of this encounter
--- OUTSIDE RECORDS SUMMARY | 2024-10-27 10:26 | XMS_ITS | Encounter Summary ---
Author Organization [place] Address [address] [place] [address] Care Team Providers Care Armhole Presser Name Role Phone Salina Doherty MD Unavailable [phone] Carrillo Ware APRN CVIR TECH Unavailable Hillary Unger MD Primary Care P rovider [facility] NP Unavailable [phone] Nelson Arroyo PA-C Unavailable Hillary Unger MD Unavailable Hillary Unger MD Unavailable Hillary Unger MD Unavailable Nelson Arroyo PA-C Unavailable [phone] Nelson Arroyo PA-C Primary Care Provider [phone] Chinyere Barbour Unavailable Unavailable Nelson Arroyo PA-C Unavailable [phone] Pietro Wills MD Unavailable [phone] Tank Bucio MD Unavailable [phone] Encounter Details Date Type Department Care Team (Late st Contact Info) Description 02/06/2016 [facility] Medical [address] [place] [address] Khadijah Rushing RN Social History Tobacco Use [...] PM CDT Legal Sex Female 3:44 AM FRONT DESK COORDINATOR Gender Identity Female 10/03/2020 8:33 PM CDT Sexual Orientation Straight 07/01/2018 3 :40 PM FRONT DESK COORDINATOR documented as of this encounter Plan of Treatment Not on file documented as of this encounter Visit Diagnoses Not on filedocumented in this encounter Additional Health Concerns Assessment Noted Time PHQ-9 Depression Total Score: 5 09/19/19 16 7:14 AM CDT documented as of this encounter Care Teams Armhole Presser Relationship Specialty Start Date End Date Hillary Unger MD [address] [place] [address] PCP - General Internal Medicine 08/21/15 08/05/18 Nelson Arroyo PA-C [address] [place] [address] PCP - Assigned PCP 04/12/18 05/02/18 Hillary Unger MD [address] [place] [address] PCP - Assigned PCP 02/01/18 04/11/18 Hillary Unger MD [address] [place] [address] PCP - Assigned PCP 05/03/18 07/07/18 Nelson Arroyo PA-C [address] [place] [address] PCP - General Physician Focusing Machine Operator - Medical 08/06/18 Salina Doherty MD Internal Medicine 12/01/14 Carrillo Ware APRN CVIR TECH [address] [place] [address] Nurse Practitioner Nurse Practitioner 12/16/14 Angelica Jerez NP [facility] [address] [place] [address] Nurse Practitioner Nurse Practitioner - Family 07/12/16 Hillary Unger MD [address] [place], [place] [address] Assigned PCP 05/03/18 07/18/18 Nelson Arroyo PA-C [address] [place] [address] Assigned PCP 07/05/18 07/29/20 Chinyere Barbour Personal Advocate & Liaison (PAL) 01/31/20 04/26/20 Nelson Arroyo PA-C [address] [place] [address] Assigned PCP 07/30/20 Pietro Wills MD [address] [address] Assigned Heart and Vascular Provider 12/14/22 06/26/24 Tank Bucio MD [address], [address] [address] Physician ammonium nitrate neutralizer 12/01/23 documented as of this encounter
--- OUTSIDE RECORDS SUMMARY | 2024-10-27 10:26 | XMS_ITS | Encounter Summary ---
Author Organization [facility] Address [address] [place] [address]. [place] [address] Care Team Providers Care Customs Compliance Analyst Name Role Phone Salina Doheryt MD Unavailable [phone] Carrillo Ware APRN MANAGER OF SUSTAINABILITY Unavailable SolitarioAngelica golden NP Unavailable [phone] Nelson Arroyo PA-C Unavailable [phone] Nelson Arroyo PA-C Primary Care Provider [phone] Chinyere Barbour Unavailable Unavailable Nelson Arroyo PA-C Unavailable [phone] Pietro Wills MD Unavailable Tank Bucio MD Unavailable Reason for Visit * Reason Onset Date Comments Refill Request 10/18/2018 ADDERALL XR 30MG and ADDERALL 10MG Encounter Details Date Type Department Care Team (Late st Contact Info) Description 10/18/2018 MyC Refill [facility] [address] [place] [address] Nelson Arroyo PA-C [address] [place] [address] Refill Request (ADDERALL XR 30MG [...] CDT Legal Sex Female 3:44 AM LOADING MACHINE OPERATOR HELPER Gender Identity Female 10/03/2020 8:33 PM CDT Sexual Orientation Straight 07/01/2018 3: 40 PM LOADING MACHINE OPERATOR HELPER documented as of this encounter Miscellaneous Notes * Telephone Encounter - Lexi Reina RN - 10/21/2018 8:08 AM CDT Last Written Prescription Date: 09.07.18 Last Fill Quantity: 30, # refills: 0 Last office visit: 08/28/2017 with prescribing provider: Cruz Future Office Visit: Plan RTC 11.05.18 Routing refill request to provider for review/approval because: Drug not on [place] [facility] [place] Lexi Reina RN, BS Clinical [...] SHOULD BE DELETED.) Last Office Visit with [facility] primary care provider: 08/28/2017 Future Office visit: [...] OXY13, PPX13, BUP13 Processing: Fax Rx to [facility] [email or web address] MANAGER STRATEGIC PARTNERSHIPS checked in past 3 months? No, route to RN amphetamine-dextroamphetamine (ADDERALL) 10 MG tablet Last Written Prescription Date: 09/07/18 Last Fill Quantity: 30, # refills: 0 Last Office Visit with G, P or [facility] prescribing provider: 08/28/2017 documented in this encounter Plan of Treatment Not on file documented as of this encounter 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), predominantly inattentive type documented in this encounter Additional Health Concerns Assessment Noted Time PHQ-9 Depression Total Score: 13 019 7:04 AM CDT documented as of this encounter Care Teams Customs Compliance Analyst Relationship Specialty Start Date End Date Nelson Arroyo PA-C [address] [place] [address] PCP - General Physician Oracle Soa Architect - Medical 08/06/18 Salina Doherty MD Internal Medicine 12/01/14 Carrillo Ware APRN MANAGER OF SUSTAINABILITY [address] [place] [address] Nurse Practitioner Nurse Practitioner 12/16/14 Angelica Jerez NP [facility] [address] [place] [address] Nurse Practitioner Nurse Practitioner - Family 07/12/16 Nelson Arroyo PA-C [address] [place] [address] Assigned PCP 07/05/18 07/29/20 Chinyere Barbour Personal Advocate & Liaison (PAL) 01/31/20 04/26/20 Nelson Arroyo PA-C [address] [address] Assigned PCP 07/30/20 Pietro Wills MD [address] [place] [address] Assigned Heart and Vascular Provider 12/14/22 06/26/24 Tank Bucio MD [address], [address] [address] Physician table tender sludge 12/01/23 documented as of this encounter
--- OUTSIDE RECORDS SUMMARY | 2024-10-27 10:26 | XMS_ITS | Encounter Summary ---
Author Organization [facility] Address [address] [place] [address] Care Team Providers Care Driver Recruiter Name Role Phone Salina Doherty MD Unavailable Carrillo Ware APRN RETAIL LOSS PREVENTION INVESTIGATOR Unavailable SolitarioAngelica golden NP Unavailable Nelson Arroyo PA-C Primary Care Provider Nelson Arroyo PA-C Unavailable [phone] Pietro Wills MD Unavailable Tank Bucio MD Unavailable Reason for Visit * Reason Onset Date Comments MyChart Communication 02/22/2021 Encounter Details Date Type Department Care Team (Late st Contact Info) Description 02/22/2021 MyC Medical Advice [facility] [address] [place] [address] Hillary Unger MD [address] [place] [address] MyChart Communication Social History Tobacco [...] PM CDT Legal Sex Female 3:44 AM EDITOR PRODUCER Gender Identity Female 10/03/2020 8:33 PM CDT Sexual Orientation Straight 07/01/2018 3: 40 PM EDITOR PRODUCER documented as of this encounter Miscellaneous Notes [...] documented as of this encounter Care Teams Driver Recruiter Relationship Specialty Start Date End Date Nelson Arroyo PA-C [address] [place] [address] PCP - General Physician Washing Machine Operator - Medical 08/06/18 Salina Doherty MD Internal Medicine 12/01/14 Carrillo Ware APRN RETAIL LOSS PREVENTION INVESTIGATOR [address] [place] [address] Nurse Practitioner Nurse Practitioner 12/16/14 Angelica Jerez NP [facility] [address] [place], [place] [address] Nurse Practitioner Nurse Practitioner - Family 07/12/16 Nelson Arroyo PA-C [address] [place] [address] Assigned PCP 07/30/20 Pietro Wills MD [address] [place] [address] Assigned Heart and Vascular Provider 12/14/22 06/26/24 Tank Bucio MD [address], [address] [address] Physician drug enforcement agent 12/01/23 documented as of this encounter
--- OUTSIDE RECORDS SUMMARY | 2024-10-27 10:26 | XMS_ITS | Encounter Summary ---
Author Organization [place] [facility] Address [address] [place] [address] Care Team Providers Care Public Policy Analyst Name Role Phone Salina Doherty MD Unavailable [phone] Carrillo Ware APRN DRUM BARKER OPERATOR Unavailable Hillary Unger MD Primary Care P rovider On License Of [facility] NP Unavailable Nelson Arroyo PA-C Unavailable [phone] Hillary Unger MD Unavailable Hillary Unger MD Unavailable Hillary Unger MD Unavailable Nelson Arroyo PA-C Unavailable [phone] Nelson Arroyo PA-C Primary Care Provider [phone] Chinyere Barbour Unavailable Unavailable Nelson Arroyo PA-C Unavailable [phone] Pietro Wills MD Unavailable [phone] Tank Bucio MD Unavailable [phone] Reason for Visit * Reason Onset Date Comments Refill Request 12/31/2017 tizanidine Encounter Details Date Type Department Care Team (Late st Contact Info) Description 12/31/2017 [place] [address] [place] [address] Hillary Unger MD [address] [place] [address] Refill Request (tizanidine) Social History Tobacco Use [...] CDT Legal Sex Female 3:44 AM HEALTH DIAGNOSTICS TEACHER Gender Identity Female 10/03/2020 8:33 PM CDT Sexual Orientation Straight 07/01/2018 3: 40 PM HEALTH DIAGNOSTICS TEACHER documented as of this encounter Plan of Treatment Not on file documented as of this encounter Visit Diagnoses Diagnosis Muscle spasm Spasm of muscle Cervicalgia documented in this encounter Additional Health Concerns Assessment Noted Time PHQ-9 Depression Total Score: 6 08/30/19 18 7:34 AM CDT documented as of this encounter Care Teams Public Policy Analyst Relationship Specialty Start Date End Date Hillary Unger MD [address] [place] [address] PCP - General Internal Medicine 08/21/15 08/05/18 Nelson Arroyo PA-C [address] [place] [address] PCP - Assigned PCP 04/12/18 05/02/18 Hillary Unger MD [address] [place] [address] PCP - Assigned PCP 02/01/18 04/11/18 Hillary Unger MD [address] [place] [address] PCP - Assigned PCP 05/03/18 07/07/18 Nelson Arryoo PA-C [address] [address] PCP - General Physician E Learning Specialist - Medical 08/06/18 Salina Doherty MD Internal Medicine 12/01/14 Carrillo Ware APRN DRUM BARKER OPERATOR [address] [place] [address] Nurse Practitioner Nurse Practitioner 12/16/14 Angelica Jerez NP [facility] [address] [place] [address] Nurse Practitioner Nurse Practitioner - Family 07/12/16 Hillary Unger MD [address] [place] [address] Assigned PCP 05/03/18 07/18/18 Nelson Arroyo PA-C [address] [address] Assigned PCP 07/05/18 07/29/20 Chinyere Barbour Personal Advocate & Liaison (PAL) 01/31/20 04/26/20 Nelson Arroyo PA-C [address] [address] Assigned PCP 07/30/20 Pietro Wills MD [address] [place] [address] Assigned Heart and Vascular Provider 12/14/22 06/26/24 Tank Bucio MD [address] [facility] [address] [place] [address] Physician graves registration specialist 12/01/23 documented as of this encounter
--- OUTSIDE RECORDS SUMMARY | 2024-10-27 10:26 | XMS_ITS | Encounter Summary ---
Author Organization [facility] Address [address] [place] [address]. [place] [address] Care Team Providers Care Therapeutic Riding Instructor Name Role Phone Salina Doherty MD Unavailable [phone] Carrillo Ware APRN WARDROBE COORDINATOR Unavailable SolitarioAngelica golden NP Unavailable [phone] Nelson Arroyo PA-C Unavailable Nelson Arroyo PA-C Primary Care Provider Chinyere Barbour Unavailable Unavailable Nelson Arroyo PA-C Unavailable Pietro Wills MD Unavailable Tank Bucio MD Unavailable Reason for Visit * Reason Onset Date Comments Medication Refill 10/19/2018 clonazePAM (KL ONOPIN) 0.5 MG tablet Encounter Details Date Type Department Care Team (Late st Contact Info) Description 10/18/[address], [address] [place] [address] Nelson Arroyo PA-C [address] [place] [address] Medication Refill (clonazePAM (KLONOPIN) 0.5 [...] PM CDT Legal Sex Female 3:44 AM EAR MACHINE OPERATOR Gender Identity Female 10/03/2020 8:33 PM CDT Sexual Orientation Straight 07/01/2018 3: 40 PM EAR MACHINE OPERATOR documented as of this encounter Miscellaneous Notes * Telephone Encounter - Lexi Reina RN - 10/20/2018 3:38 PM CDT Routing refill request to provider for review/approval because: Drug not on the [facility] refill protocol Last fill 5.2.19 CONTRACT ADMINISTRATION SPECIALIST: 6.18.19 Last filled 5.3.19, [facility] providers had filled prior to August Annual [...] SHOULD BE DELETED.) Last Office Visit with [facility] primary care provider: 08/06/2018 Future Office visit: [...] OXY13, PPX13, BUP13 Processing: Fax Rx to [facility] [email or web address] CONTRACT ADMINISTRATION SPECIALIST checked in past 3 months? No, route to RN 05/13/18 documented in this encounter Plan of Treatment Not on file documented as of this encounter Visit Diagnoses Diagnosis Generalized anxiety disorder documented in this encounter Additional Health Concerns Assessment Noted Time PHQ-9 Depression Total Score: 13 019 7:04 AM CDT documented as of this encounter Care Teams Therapeutic Riding Instructor Relationship Specialty Start Date End Date Nelson Arroyo PA-C [address] [place], [place] [id number] PCP - General Physician Field Service Poultry Technician - Medical 08/06/18 Salina Doherty MD Internal Medicine 12/01/14 Carrillo Ware APRN WARDROBE COORDINATOR [address] [place] [address] Nurse Practitioner Nurse Practitioner 12/16/14 Angelica Jerez NP [address] [id number] Nurse Practitioner Nurse Practitioner - Family 07/12/16 Nelson Arroyo PA-C [address] [place] [address] Assigned PCP 07/05/18 07/29/20 Chinyere Barbour Personal Advocate & Liaison (PAL) 01/31/20 04/26/20 Nelson Arroyo PA-C [address] [place] [address] Assigned PCP 07/30/20 Pietro Wills MD [address] [place] [address] Assigned Heart and Vascular Provider 12/14/22 06/26/24 Tank Bucio MD [address] [facility] [address] [place] [address] Physician parking meter collector 12/01/23 documented as of this encounter
--- OUTSIDE RECORDS SUMMARY | 2024-10-27 10:26 | XMS_ITS | Encounter Summary ---
Author Organization [facility] Address [address] [place] [address] Care Team Providers Care Acquisitions Assistant Name Role Phone Salina Doherty MD Unavailable [phone] Carrillo Ware APRN DBA Unavailable Hillary Unger MD Primary Care P rovider [facility] NP Unavailable [phone] Nelson Arroyo PA-C Unavailable [phone] Hillary Unger MD Unavailable Hillary Unger MD Unavailable Hillary Unger MD Unavailable Nelson Arroyo PA-C Unavailable [phone] Nelson Arroyo PA-C Primary Care Provider Chinyere Barbour Unavailable Unavailable Nelson Arroyo PA-C Unavailable [phone] Pietro Wills MD Unavailable [phone] Tank Bucio MD Unavailable [phone] Reason for Visit * Reason Onset Date Comments Refill Request 10/02/2016 Encounter Details Date Type Department Care Team (Late st Contact Info) Description 10/02/2016 [facility] [address] [place] [phone] [place] [address] [place] [address] Refill Request Social History Tobacco Use Types [...] CDT Legal Sex Female 3:44 AM MANAGER CLUB Gender Identity Female 10/03/2020 8:33 PM CDT Sexual Orientation Straight 07/01/2018 3: 40 PM MANAGER CLUB documented as of this encounter Miscellaneous Notes * Telephone Encounter - Mariella Patterson RN - 10/03/2016 10:10 AM CDTMessage from [facility]: Original authorizing provider: JACQUE Novak would like a refill of the following medications: buPROPion (WELLBUTRIN XL) 150 MG 24 hr tablet [Angelica Jerez NP] gabapentin (NEURONTIN) 100 MG capsule [Angelica Jerez NP] Preferred pharmacy: [address] Comment: Medication renewals requested in this [...] documented as of this encounter Care Teams Acquisitions Assistant Relationship Specialty Start Date End Date Hillary Unger MD [address] [facility] [place] [address] PCP - General Internal Medicine 08/21/15 08/05/18 Nelson Arroyo PA-C [address] [place] [address] PCP - Assigned PCP 04/12/18 05/02/18 Hillary Unger MD [address] [place] [address] PCP - Assigned PCP 02/01/18 04/11/18 Hillary Unger MD [address] [place] [address] PCP - Assigned PCP 05/03/18 07/07/18 Nelson Arroyo PA-C [address] [place] [address] PCP - General Physician Director Personal - Medical 08/06/18 Salina Doherty MD Internal Medicine 12/01/14 Carrillo Ware APRN DBA [address] [place] [address]2985 Nurse Practitioner Nurse Practitioner 12/16/14 Angelica Jerez NP [facility] [address] [place], [place] [address] Nurse Practitioner Nurse Practitioner - Family 07/12/16 Hillary Unger MD [address] [place] [address] Assigned PCP 05/03/18 07/18/18 Nelson Arroyo PA-C [address] [place] [address] Assigned PCP 07/05/18 07/29/20 Chinyere Barbour Personal Advocate & Liaison (PAL) 01/31/20 04/26/20 Nelson Arroyo PA-C [address] [place] [address] Assigned PCP 07/30/20 Pietro Wills MD [address] [place] [address] Assigned Heart and Vascular Provider 12/14/22 06/26/24 Tank Bucio MD [address], [facility] [address] [place] [address] Physician pipe coverer 12/01/23 documented as of this encounter
--- OUTSIDE RECORDS SUMMARY | 2024-10-27 10:26 | XMS_ITS | Encounter Summary ---
Author Organization [facility] Address [address] [place] [address]. [place] [address] Care Team Providers Care Meatcutter Name Role Phone Salina Doherty MD Unavailable [phone] Carrillo Ware APRN FERRY ENGINEER Unavailable [phone] SolitarioAngelica golden NP Unavailable [phone] Nelson Arroyo PA-C Primary Care Provider Nelson Arroyo PA-C Unavailable Pietro Wills MD Unavailable Tank Bucio MD Unavailable Reason for Visit * Reason Comments Medication Refill Encounter Details Date Type Department Care Team (Late st Contact Info) Description 04/02/2021 Refill [facility] [address] [place] [address] Nelson Arroyo PA-C [address] [place] [address] Medication Refill Social History Tobacco [...] CDT Legal Sex Female 3:44 AM FAMILY PARTNER Gender Identity Female 10/03/2020 8:33 PM CDT Sexual Orientation Straight 07/01/2018 3: 40 PM FAMILY PARTNER documented as of this encounter Miscellaneous Notes [...] 11/22/20 (!) 153/93 Manisha Connor RN LY PARTNER documented in this encounter Plan of Treatment Not on file documented as of this encounter Visit Diagnoses Diagnosis Major depressive disorder, recurrent episode, moderate (H) Major depressive disorder, recurrent episode, moderate Generalized anxiety disorder Palpitations documented in this encounter Additional Health Concerns Assessment Noted Time PHQ-9 Depression Total Score: 0 02/24/20 7:01 AM CDT documented as of this encounter Care Teams Meatcutter Relationship Specialty Start Date End Date Nelson Arroyo PA-C [address] [place] [address] PCP - General Physician Security Installation Sales Technician - Medical 08/06/18 Salina Doherty MD Internal Medicine 12/01/14 Carrillo Ware APRN FERRY ENGINEER [address] [place] [address] Nurse Practitioner Nurse Practitioner 12/16/14 Angelica Jerez NP [facility] [address] [place] [address] Nurse Practitioner Nurse Practitioner - Family 07/12/16 Nelson Arroyo PA-C [address] [place] [address] Assigned PCP 07/30/20 Pietro Wills MD [address] [place] [address] Assigned Heart and Vascular Provider 12/14/22 06/26/24 Tank Bucio MD [address], [facility] [address] [place] [address] Physician auto fleet maintenance manager 12/01/23 documented as of this encounter
--- OUTSIDE RECORDS SUMMARY | 2024-10-27 10:26 | XMS_ITS | Encounter Summary ---
Author Organization [facility] Address [address] [place] [address] Care Team Providers Care Ramp Agent Name Role Phone Salina Doherty MD Unavailable [phone] Carrillo Ware APRN SEROLOGIST Unavailable Hillary Unger MD Primary Care P rovider [facility] NP Unavailable [phone] Nelson Arroyo PA-C Unavailable Hillary Unger MD Unavailable Hillary Unger MD Unavailable Hillary Unger MD Unavailable Nelson Arroyo PA-C Unavailable [phone] Nelson Arroyo PA-C Primary Care Provider Chinyere Barbour Unavailable Unavailable Nelson Arroyo PA-C Unavailable [phone] Pietro Wills MD Unavailable [phone] Tank Bucio MD Unavailable [phone] Encounter Details Date Type Department Care Team (Late st Contact Info) Description 11/12/2016 [facility] Medical Advice [facility] Mental Health & Addiction [address] [place] [address] Solitario Angelica Gautam, BUILDING MAINTENANCE CUSTODIAN [address] [place] [address] Social History Tobacco Use Types Packs/Day Years [...] PM CDT Legal Sex Female 3:44 AM TRAVELING CRANE OPERATOR Gender Identity Female 10/03/2020 8:33 PM CDT Sexual Orientation Straight 07/01/2018 3: 40 PM TRAVELING CRANE OPERATOR documented as of this encounter Plan of Treatment Not on file documented as of this encounter Visit Diagnoses Not on filedocumented in this encounter Additional Health Concerns Assessment Noted Time PHQ-9 Depression Total Score: 4 10/06/19 17 7:28 AM CDT documented as of this encounter Care Teams Ramp Agent Relationship Specialty Start Date End Date Hillary Unger MD [address] [place] [address] PCP - General Internal Medicine 08/21/15 08/05/18 Nelson Arroyo PA-C [address] [place] [address] PCP - Assigned PCP 04/12/18 05/02/18 Hillary Unger MD [address] [place] [address] PCP - Assigned PCP 02/01/18 04/11/18 Hillary Unger MD [address] [place] [address] PCP - Assigned PCP 05/03/18 07/07/18 Nelson Arroyo PA-C [address] [place] [address] PCP - General Physician Absorption Plant Operator - Medical 08/06/18 Salina Doherty MD Internal Medicine 12/01/14 Carrillo Ware APRN SEROLOGIST [address] [place] [address] Nurse Practitioner Nurse Practitioner 12/16/14 Angelica Jerez BUILDING MAINTENANCE CUSTODIAN [facility] [address] [place], [place] [address] Nurse Practitioner Nurse Practitioner - Family 07/12/16 Hillary Unger MD [address] [place] [address] Assigned PCP 05/03/18 07/18/18 Nelson Arroyo PA-C [address] [place] [address] Assigned PCP 07/05/18 07/29/20 Chinyere Barbour Personal Advocate & Liaison (PAL) 01/31/20 04/26/20 Nelson Arroyo PA-C [address] [place] [address] Assigned PCP 07/30/20 Pietro Wills MD [address] [place] [address] Assigned Heart and Vascular Provider 12/14/22 06/26/24 Tank Bucio MD [address] [place], [facility] [address] [place] [address] Physician anesthetist 12/01/23 documented as of this encounter
--- OUTSIDE RECORDS SUMMARY | 2024-10-27 10:26 | XMS_ITS | Encounter Summary ---
Author Organization [facility] Address [address] [place] [address]. [place] [address] Care Team Providers Care Ship Painter Helper Name Role Phone Salina Doherty MD Unavailable [phone] Carrillo Ware APRN THERAPEUTIC ASSISTANT Unavailable [phone] SolitarioAngelica golden NP Unavailable [phone] Nelson Arroyo PA-C Primary Care Provider Nelson Arroyo PA-C Unavailable Pietro Wills MD Unavailable Tank Bucio MD Unavailable Reason for Visit * Reason Comments Medication Refill Encounter Details Date Type Department Care Team (Late st Contact Info) Description 10/30/[address] [place] [address] [place] [address] [address] [place] [address] Medication Refill Social History [...] CDT Legal Sex Female 3:44 AM SENIOR PYTHON DEVELOPER Gender Identity Female 10/03/2020 8:33 PM CDT Sexual Orientation Straight 07/01/2018 3: 40 PM SENIOR PYTHON DEVELOPER COVID-19 Exposure Response Date Recorded In the last month, have you been in contact with someone who was confirmed or suspected to have Coronavirus / COVID-19? No / Unsure 10/18/2020 5:00 PM CDT documented as of this encounter Miscellaneous Notes * Telephone Encounter - Maude iSngh RN - 11/03/2020 8:30 AM CDT LMOM [...] Mishel [facility] MD, RI PROC RM 2 [facility] ([facility] [address] [facility] [address] [facility] [phone] Routing refill request to provider for review/approval [...] documented as of this encounter Care Teams Ship Painter Helper Relationship Specialty Start Date End Date Nelson Arroyo PA-C [address] [address] PCP - General Physician Armature Repairer - Medical 08/06/18 Salina Doherty MD Internal Medicine 12/01/14 Carrillo Ware APRN THERAPEUTIC ASSISTANT [address] [place] [address] Nurse Practitioner Nurse Practitioner 12/16/14 Angelica Jerez NP [facility] [address] [place] [address] Nurse Practitioner Nurse Practitioner - Family 07/12/16 Nelson Arroyo PA-C [address] [address] Assigned PCP 07/30/20 Pietro Wills MD [address] [place] [address] Assigned Heart and Vascular Provider 12/14/22 06/26/24 Tank Bucio MD [address], [facility] [address] [place] [address] Physician radio television announcer 12/01/23 documented as of this encounter
--- OUTSIDE RECORDS SUMMARY | 2024-10-27 10:27 | XMS_ITS | Encounter Summary ---
Author Organization [facility] Address [address] [place] [address]. [place] [address] Care Team Providers Care Park Interpretive Ranger Name Role Phone Salina Doherty MD Unavailable Carrillo Ware APRN INTERMEDIATE TEACHER Unavailable SolitarioAngelica golden NP Unavailable [phone] Nelson Arroyo PA-C Primary Care Provider Nelson Arroyo PA-C Unavailable Pietro Wills MD Unavailable Tank Bucio MD Unavailable Reason for Visit * Reason Onset Date Comments Refill Request 01/31/2021 Encounter Details Date Type Department Care Team (Late st Contact Info) Description 01/31/2021 MyC Refill [facility] [address] [place] [address] Nelson Arroyo PA-C [address] [place] [address] Refill Request Social History Tobacco [...] PM CDT Legal Sex Female 3:44 AM TSO Gender Identity Female 10/03/2020 8:33 PM CDT Sexual Orientation Straight 07/01/2018 3: 40 PM TSO documented as of this encounter Plan of Treatment Not on file documented as of this encounter 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), predominantly inattentive type documented in this encounter Additional Health Concerns Assessment Noted Time PHQ-9 Depression Total Score: 4 10/19/19 21 5:12 PM CDT documented as of this encounter Care Teams Park Interpretive Ranger Relationship Specialty Start Date End Date Nelson Arroyo PA-C [address] [place] [address] PCP - General Physician Grader Marker - Medical 08/06/18 Salina Doherty MD Internal Medicine 12/01/14 Carrillo Ware APRN INTERMEDIATE TEACHER [address] [place] [address] 770495 Nurse Practitioner Nurse Practitioner 12/16/14 Angelica Jerez NP [address] 730347 Nurse Practitioner Nurse Practitioner - Family 07/12/16 Nelson Arroyo PA-C [address] [address] Assigned PCP 07/30/20 Pietro Wills MD [address] [id number] Assigned Heart and Vascular Provider 12/14/22 06/26/24 Tank Bucio MD [address], [address] [address] Physician bowling alley attendant 12/01/23 documented as of this encounter
--- OUTSIDE RECORDS SUMMARY | 2024-10-27 10:27 | XMS_ITS | Encounter Summary ---
Author Organization [facility] Address [address] [place] [address] Care Team Providers Care Radio Board Operator Name Role Phone Salina Doherty MD Unavailable [phone] Carrillo Ware APRN TOXICOLOGIST Unavailable Hillary Unger MD Primary Care P rovider [facility] NP Unavailable [phone] Nelson Arroyo PA-C Unavailable Hillary Unger MD Unavailable Hillary Unger MD Unavailable Hillary Unger MD Unavailable Nelson Arroyo PA-C Unavailable [phone] Nelson Arroyo PA-C Primary Care Provider Chinyere Barbour Unavailable Unavailable Nelson Arroyo PA-C Unavailable [phone] Pietro Wills MD Unavailable [phone] Tank Bucio MD Unavailable Encounter Details Date Type Department Care Team (Late st Contact Info) Description 02/24/2018 [facility] [address] [place] [address] Shira Chow, CULTURE MANAGER Social History Tobacco Use Types Packs/Day Years [...] CDT Legal Sex Female 3:44 AM NETWORK AND THREAT SUPPORT SPECIALIST Gender Identity Female 10/03/2020 8:33 PM CDT Sexual Orientation Straight 07/01/2018 3: 40 PM NETWORK AND THREAT SUPPORT SPECIALIST documented as of this encounter Plan of Treatment Not on file documented as of this encounter Visit Diagnoses Not on filedocumented in this encounter Additional Health Concerns Assessment Noted Time PHQ-9 Depression Total Score: 6 08/30/19 18 7:34 AM CDT documented as of this encounter Care Teams Radio Board Operator Relationship Specialty Start Date End Date Hillary Unger MD [address] [place] [address] PCP - General Internal Medicine 08/21/15 08/05/18 Nelson Arroyo PA-C [address] [place] [address] PCP - Assigned PCP 04/12/18 05/02/18 Hillary Unger MD [address] [place] [address] PCP - Assigned PCP 02/01/18 04/11/18 Hillary Unger MD [address] [place] [address] PCP - Assigned PCP 05/03/18 07/07/18 Nelson Arroyo PA-C [address] [place] [address] PCP - General Physician Farm Machine Operator - Medical 08/06/18 Salina Doherty MD Internal Medicine 12/01/14 Carrillo Ware APRN TOXICOLOGIST [address] [place] [address] Nurse Practitioner Nurse Practitioner 12/16/14 Angelica Jerez CARDING SUPERVISOR [facility] [address] [place] [address] Nurse Practitioner Nurse Practitioner - Family 07/12/16 Hillary Unger MD [address] [place], [place] 284617 Assigned PCP 05/03/18 07/18/18 Nelson Arroyo PA-C [address] [place] [address] Assigned PCP 07/05/18 07/29/20 Chinyere Barbour Personal Advocate & Liaison (PAL) 01/31/20 04/26/20 Nelson Arroyo PA-C [address] [address] Assigned PCP 07/30/20 Pietro Wills MD [address] 166185 Assigned Heart and Vascular Provider 12/14/22 06/26/24 Tank Bucio MD [address], [address] [address] Physician crop consultant 12/01/23 documented as of this encounter
--- OUTSIDE RECORDS SUMMARY | 2024-10-27 10:27 | XMS_ITS | Encounter Summary ---
Author Organization [facility] Address [address] [place] [address]. [place] [address] Care Team Providers Care Shaper Hand Name Role Phone Salina Doherty MD Unavailable [phone] Carrillo Ware APRN PET RESORT CONCIERGE Unavailable [phone] SolitarioAngelica golden NP Unavailable [phone] Nelson Arroyo PA-C Unavailable Nelson Arroyo PA-C Primary Care Provider Chniyere Barbour Unavailable Unavailable Nelson Arroyo PA-C Unavailable Pietro Wills MD Unavailable Tank Bucio MD Unavailable Reason for Visit * Reason Onset Date Comments Medication Request 08/10/2018 Trazodone Medication Request 08/10/[address] trazodone Encounter Details Date Type Department Care Team (Late st Contact Info) Description 08/10/2018 MyC Medical Advice [address], [address] [place] [address] Nelson Arroyo PA-C [address] [place] [address] Medication Request (Trazodone); Medication... Social [...] PM CDT Legal Sex Female 3:44 AM INSURANCE PROCESSOR Gender Identity Female 10/03/2020 8:33 PM CDT Sexual Orientation Straight 07/01/2018 3: 40 PM INSURANCE PROCESSOR documented as of this encounter Miscellaneous [...] documented as of this encounter Care Teams Shaper Hand Relationship Specialty Start Date End Date Nelson Arroyo PA-C [address] [place] [address] PCP - General Physician Layboy Operator - Medical 08/06/18 Salina Doherty MD Internal Medicine 12/01/14 Carrillo Ware APRN PET RESORT CONCIERGE [address] [place] [address] 332865 Nurse Practitioner Nurse Practitioner 12/16/14 Angelica Jerez NP [facility] [address] [place], [place] [id number] Nurse Practitioner Nurse Practitioner - Family 07/12/16 Nelson Arroyo PA-C [address] [place] [address] Assigned PCP 07/05/18 07/29/20 Chinyere Barbour Personal Advocate & Liaison (PAL) 01/31/20 04/26/20 Nelson Arroyo PA-C [address] [address] Assigned PCP 07/30/20 Pietro Wills MD [address] [place] [address] Assigned Heart and Vascular Provider 12/14/22 06/26/24 Tank Bucio MD [address], [address] [address] Physician net mvc developer 12/01/23 documented as of this encounter
--- OUTSIDE RECORDS SUMMARY | 2024-10-27 10:27 | XMS_ITS | Encounter Summary ---
Author Organization [facility] Address [address] [place] [address] Care Team Providers Care Trial Management Associate Name Role Phone Salina Doherty MD Unavailable [phone] Carrillo Ware APRN MARINE EQUIPMENT TEST ENGINEER Unavailable Hillary Unger MD Primary Care P rovider [facility] NP Unavailable [phone] Nelson Arroyo PA-C Unavailable [phone] Hillary Unger MD Unavailable Hillary Unger MD Unavailable Hillary Unger MD Unavailable Nelson Arroyo PA-C Unavailable [phone] Nelson Arroyo PA-C Primary Care Provider Chinyere Barbour Unavailable Unavailable Nelson Arroyo PA-C Unavailable [phone] Pietro Wills MD Unavailable [phone] Tank Bucio MD Unavailable [phone] Reason for Visit * Reason Onset Date Comments Patient Inquiry 07/26/2016 Refills Encounter Details Date Type Department Care Team (Late st Contact Info) Description 07/26/2016 [facility] [address] [place] [address] Hillary Unger MD [address] [place] [address] Patient Inquiry (Refills) Social History Tobacco Use [...] CDT Legal Sex Female 3:44 AM SALES AND MARKETING INTERN Gender Identity Female 10/03/2020 8:33 PM CDT Sexual Orientation Straight 07/01/2018 3: 40 PM SALES AND MARKETING INTERN documented as of this encounter Miscellaneous Notes * Telephone Encounter - Michelle Walker - 08/02/2016 3:30 PM CDT See Whatever message below. * Telephone Encounter - Hillary [...] Total Score: 7 07/14/19 17 7:14 AM SALES AND MARKETING INTERN documented as of this encounter Care Teams Trial Management Associate Relationship Specialty Start Date End Date Hillary Unger MD [address] [place] [address] PCP - General Internal Medicine 08/21/15 08/05/18 Nelson Arroyo PA-C [address] [place] [address] PCP - Assigned PCP 04/12/18 05/02/18 Hillary Unger MD [address] [place], [place] 696157 PCP - Assigned PCP 02/01/18 04/11/18 Hillary Unger MD [address] [place] [address] PCP - Assigned PCP 05/03/18 07/07/18 Nelson Arroyo PA-C [address] [place] [address] PCP - General Physician Radio Interference Trouble Shooter - Medical 08/06/18 Salina Doherty MD Internal Medicine 12/01/14 Carrillo Ware APRN MARINE EQUIPMENT TEST ENGINEER [address] [place] [address] Nurse Practitioner Nurse Practitioner 12/16/14 Angelica Jerez NP [facility] [address] [place], [place] 718917 Nurse Practitioner Nurse Practitioner - Family 07/12/16 Hillary Unger MD [address] [place], [place] 70099337 Assigned PCP 05/03/18 07/18/18 Nelson Arroyo PA-C [address] [place] [address] Assigned PCP 07/05/18 07/29/20 Chinyere Barbour Personal Advocate & Liaison (PAL) 01/31/20 04/26/20 Nelson Arroyo PA-C [address] [place] [address] Assigned PCP 07/30/20 Pietro Wills MD [address] [place] [address] Assigned Heart and Vascular Provider 12/14/22 06/26/24 Tank Bucio MD [address], [address] [address] Physician teacher dramatics 12/01/23 documented as of this encounter
--- OUTSIDE RECORDS SUMMARY | 2024-10-27 10:27 | XMS_ITS | Encounter Summary ---
Author Organization [facility] Address [address] [place] [address]. [place] [address] Care Team Providers Care Aviation Boatswain'S Mate Name Role Phone Salina Doherty MD Unavailable Carrillo Ware APRN MANAGER TEST Unavailable SolitarioAngelica golden NP Unavailable [phone] Nelson Arroyo PA-C Primary Care Provider Nelson Arroyo PA-C Unavailable Pietro Wills MD Unavailable [phone] Tank Bucio MD Unavailable [phone] Encounter Details Date Type Department Care Team (Late st Contact Info) Description 07/10/[address] [facility] [address] [place] [address] Nelson Arroyo PA-C [address] [place] [address] Social History Tobacco Use Types [...] PM CDT Legal Sex Female 3:44 AM STRAW BALER Gender Identity Female 10/03/2020 8:33 PM CDT Sexual Orientation Straight 07/01/2018 3: 40 PM STRAW BALER documented as of this encounter Plan of Treatment Not on file documented as of this encounter Visit Diagnoses Not on filedocumented in this encounter Additional Health Concerns Assessment Noted Time PHQ-9 Depression Total Score: 9 06/04/19 22 12:13 PM STRAW BALER documented as of this encounter Care Teams Aviation Boatswain'S Mate Relationship Specialty Start Date End Date Nelson Arroyo PA-C [address] [place] [address] PCP - General Physician Etl Lead - Medical 08/06/18 Salina Doherty MD Internal Medicine 12/01/14 Carrillo Ware APRN MANAGER TEST [address] [place] [address] 071195 Nurse Practitioner Nurse Practitioner 12/16/14 Angelica Jerez NP [place] [address] [place], [place] 743617 Nurse Practitioner Nurse Practitioner - Family 07/12/16 Nelson Arroyo PA-C [address] [address] Assigned PCP 07/30/20 Pietro Wills MD [address] [address] Assigned Heart and Vascular Provider 12/14/22 06/26/24 Tank Bucio MD [address], [facility] [address] [place] [address] Physician cotton presser 12/01/23 documented as of this encounter
--- OUTSIDE RECORDS SUMMARY | 2024-10-27 10:27 | XMS_ITS | Encounter Summary ---
Author Organization [facility] Address [address] [place] [address]. [place] [address] Care Team Providers Care Paper Inspector Name Role Phone Salina Doherty MD Unavailable [phone] Carrillo Ware APRN ROTARY DRYER OPERATOR Unavailable SolitarioAngelica golden NP Unavailable [phone] Nelson Arroyo PA-C Unavailable [phone] Nelson Arroyo PA-C Primary Care Provider Chinyere Barbour Unavailable Unavailable Nelson Arroyo PA-C Unavailable [phone] Pietro Wills MD Unavailable [phone] Tank Bucio MD Unavailable Reason for Visit * Reason Onset Date Comments Symptoms 08/28/2018 Encounter Details Date Type Department Care Team (Late st Contact Info) Description 08/28/2018 [facility] [address] [place] [address], [address] [place] [address] Nelson Arroyo PA-C [address] [place] [address] Symptoms Social History Tobacco Use [...] PM CDT Legal Sex Female 3:44 AM IRRIGATION FLUME LAYER Gender Identity Female 10/03/2020 8:33 PM CDT Sexual Orientation Straight 07/01/2018 3: 40 PM IRRIGATION FLUME LAYER documented as of this encounter Plan of Treatment Not on file documented as of this encounter Visit Diagnoses Not on filedocumented in this encounter Additional Health Concerns Assessment Noted Time PHQ-9 Depression Total Score: 13 019 7:04 AM CDT documented as of this encounter Care Teams Paper Inspector Relationship Specialty Start Date End Date Nelson Arroyo PA-C [address] [place] [address] PCP - General Physician Alterations Expert - Medical 08/06/18 Salina Doherty MD Internal Medicine 12/01/14 Carrillo Ware APRN CNP [address] [place] [address] Nurse Practitioner Nurse Practitioner 12/16/14 Angelica Jerez NP [place] [address] [place], [place] [address] Nurse Practitioner Nurse Practitioner - Family 07/12/16 Nelson Arroyo PA-C [address] [place] [address] Assigned PCP 07/05/18 07/29/20 Chinyere Barbour Personal Advocate & Liaison (PAL) 01/31/20 04/26/20 Nelson Arroyo PA-C [address] [place] [address] Assigned PCP 07/30/20 Pietro Wills MD [address] [place] [address] Assigned Heart and Vascular Provider 12/14/22 06/26/24 Tank Bucio MD [address] [facility] [address] [place] [address] Physician pipe turner 12/01/23 documented as of this encounter
--- OUTSIDE RECORDS SUMMARY | 2024-10-27 10:27 | XMS_ITS | Encounter Summary ---
Author Organization [facility] Address [address] [place] [address]. [place] [address] Care Team Providers Care Storage Facility Housekeeper Name Role Phone Salina Doherty MD Unavailable [phone] Carrillo Ware APRN CERTIFIED NURSES' AIDE Unavailable SolitarioAngelica golden NP Unavailable [phone] Nelson Arroyo PA-C Unavailable Nelson Arroyo PA-C Primary Care Provider Chinyere Barbour Unavailable Unavailable Nelson Arroyo PA-C Unavailable [phone] Pietro Wills MD Unavailable [phone] Tank Bucio MD Unavailable Reason for Visit * Reason Onset Date Comments Refill Request 09/01/2018 clonazePAM, tiZA Nidine, propranolol, QUEtiapine, and traZODone Encounter Details Date Type Department Care Team (Late st Contact Info) Description 09/01/2018 MyC Refill [address], [address] [place] [address] Nelson Arroyo PA-C [address] [facility] [place] [address] Refill Request (clonazePAM, tiZANidine, pr... [...] PM CDT Legal Sex Female 3:44 AM FREELANCE DESIGNER Gender Identity Female 10/03/2020 8:33 PM CDT Sexual Orientation Straight 07/01/2018 3: 40 PM FREELANCE DESIGNER documented as of this encounter Miscellaneous Notes * Telephone Encounter - Lexi Reina RN - 09/01/2018 4:52 PM CDT Routing refill request to provider for review/approval because: Drug not on the [facility] ref[place], only needs refills on Zanaflex and Clonazepam Leix Reina RN, BS Clinical Nurse Triage. * Telephone Encounter - Paty Mike - 09/01/2018 12:57 PM CDT tiZANidine (ZANAFLEX) 4 MG tablet Sig - Route: Take 1 tablet (4 mg) by mouth 3 times daily as needed for muscle spasms - Oral Last Written Prescription Date: 08/07/18 Last Fill Quantity: 90, # refills: 0 Last Office Visit with [facility] [place], P or [facility] prescribing provider: 08/06/2018 clonazePAM (KLONOPIN) 0.5 MG tablet Sig - Route: Take 1 tablet (0.5 mg) by mouth daily as needed for anxiety - Oral Last Written Prescription Date: 08/06/18 Last Fill Quantity: 30, # refills: 0 Last Office Visit with [facility] [place] [facility] or [facility] prescribing provider: 08/06/2018 Routing refill request to provider for review/approval because: Drug not on the [facility], [facility] or [facility] refill protocol or controlled substance Requested [...] documented as of this encounter Care Teams Storage Facility Housekeeper Relationship Specialty Start Date End Date Nelson Arroyo PA-C [address] [address] PCP - General Physician Product Support Representative - Medical 08/06/18 Salina Doherty MD Internal Medicine 12/01/14 Carrillo Ware APRN CERTIFIED NURSES' AIDE [address] [place] [address] Nurse Practitioner Nurse Practitioner 12/16/14 Angelica Jerez PLANT OPERATIONS COORDINATOR [facility] [address] [place] [address] Nurse Practitioner Nurse Practitioner - Family 07/12/16 Nelson Arroyo PA-C [address] [place] [address] Assigned PCP 07/05/18 07/29/20 Chinyere Barbour Personal Advocate & Liaison (PAL) 01/31/20 04/26/20 Nelson Arroyo PA-C [address] [id number] Assigned PCP 07/30/20 Pietro Wills MD [address] [place] [address] Assigned Heart and Vascular Provider 12/14/22 06/26/24 Tank Bucio MD [address], [address] [address] Physician machine operator helper 12/01/23 documented as of this encounter
--- OUTSIDE RECORDS SUMMARY | 2024-10-27 10:27 | XMS_ITS | Encounter Summary ---
Author Organization [place] [facility] Address [address] [place] [address]. [place] [address] Care Team Providers Care Shop Worker Name Role Phone Salina Doherty MD Unavailable [phone] Carrillo Ware APRN SEMICONDUCTOR ASSEMBLER Unavailable SolitarioAngelica golden NP Unavailable [phone] Nelson Arroyo PA-C Unavailable [phone] Nelson Arroyo PA-C Primary Care Provider Chinyere Barbour Unavailable Unavailable Nelson Arroyo PA-C Unavailable [phone] Pietro Wills MD Unavailable Tank Bucio MD Unavailable Reason for Visit * Reason Onset Date Comments Refill Request 08/30/2018 clonazePAM, tiZA Nidine, and QUEtiapine Encounter Details Date Type Department Care Team (Late st Contact Info) Description 08/30/2018 MyC Refill [address], [address] [place] [address] Nelson Arroyo PA-C [address] [place] [address] Refill Request (clonazePAM, tiZANidine, an... [...] PM CDT Legal Sex Female 3:44 AM BOOT AND SADDLE REPAIR PERSON Gender Identity Female 10/03/2020 8:33 PM CDT Sexual Orientation Straight 07/01/2018 3: 40 PM BOOT AND SADDLE REPAIR PERSON documented as of this encounter Miscellaneous [...] # refills: 0 Last Office Visit with [facility] or Health prescribing provider: 08/06/2018 Cruz Return in about 3 months (around 11/05/2018) for Med Check. tiZANidine (ZANAFLEX) 4 MG tablet Sig - Route: Take 1 tablet (4 mg) by mouth 3 times daily as needed for muscle spasms - Oral Last Written Prescription Date: 08/07/18 Last Fill Quantity: 90, # refills: 0 Last Office Visit with [facility] or Health prescribing provider: 08/06/2018 Requested Prescriptions [...] documented as of this encounter Care Teams Shop Worker Relationship Specialty Start Date End Date Neslon Arroyo PA-C [address] [address] PCP - General Physician Roller Coaster Operator - Medical 08/06/18 Salina Doherty MD Internal Medicine 12/01/14 Carrillo Ware APRN SEMICONDUCTOR ASSEMBLER [address] [place] [address] [id number] Nurse Practitioner Nurse Practitioner 12/16/14 Angelica Jerez NP [address] [address] Nurse Practitioner Nurse Practitioner - Family 07/12/16 Nelson Arroyo PA-C [address] [address] Assigned PCP 07/05/18 07/29/20 Chinyere Barbour Personal Advocate & Liaison (PAL) 01/31/20 04/26/20 Nelson Arroyo PA-C [address] [address] Assigned PCP 07/30/20 Pietro Wills MD [address] [place] [address] Assigned Heart and Vascular Provider 12/14/22 06/26/24 Tank Bucio MD [address] [facility] [address] [place] [address] Physician retail clerk 12/01/23 documented as of this encounter
--- OUTSIDE RECORDS SUMMARY | 2024-10-27 10:27 | XMS_ITS | Encounter Summary ---
Author Organization [facility] [place] Address [address] [place] [address]. [place] [address] Care Team Providers Care Cable Operator Name Role Phone Salina Doherty MD Unavailable [phone] Carrillo Ware APRN TRICK RODEO RIDER Unavailable SolitarioAngelica golden NP Unavailable [phone] Nelson Arroyo PA-C Unavailable Nelson Arroyo PA-C Primary Care Provider [phone] Chinyere Barbour Unavailable Unavailable Nelson Arroyo PA-C Unavailable [phone] Pietro Wills MD Unavailable Tank Bucio MD Unavailable Reason for Visit * Reason Onset Date Comments Refill Request 09/02/2018 tiZANidine (ALIZA FLEX) 4 MG tablet Encounter Details Date Type Department Care Team (Late st Contact Info) Description 09/02/2018 MyC Refill [place] [address] [facility], [address] [place] [address] Nelson Arroyo PA-C [address] [place] [address] Refill Request (tiZANidine (ZANAFLEX) 4 [...] PM CDT Legal Sex Female 3:44 AM SHIP SURVEYOR Gender Identity Female 10/03/2020 8:33 PM CDT Sexual Orientation Straight 07/01/2018 3: 40 PM SHIP SURVEYOR documented as of this encounter Miscellaneous Notes * Telephone Encounter - Lexi Reina RN - 09/03/2018 11:39 AM CDT Routing refill request to provider for review/approval because: Drug not on the [facility] [place] I see you commented today [...] documented as of this encounter Care Teams Cable Operator Relationship Specialty Start Date End Date Nelson Arroyo PA-C [address] [place] [address] PCP - General Physician Labor Law Professor - Medical 08/06/18 Salina Doherty MD Internal Medicine 12/01/14 Carrillo Ware APRN TRICK RODEO RIDER [address] [place] [address] Nurse Practitioner Nurse Practitioner 12/16/[address] [facility] [address] [place] [address] Nurse Practitioner Nurse Practitioner - Family 07/12/16 Nelson Arroyo PA-C [address] [place] [place] [address] Assigned PCP 07/05/18 07/29/20 Chinyere Barbour Personal Advocate & Liaison (PAL) 01/31/20 04/26/20 Nelson Arroyo PA-C [address] [place] [address] Assigned PCP 07/30/20 Pietro Wills MD [address] [place] [address] Assigned Heart and Vascular Provider 12/14/22 06/26/24 Tank Bucio MD [address] [facility], [address] [address] Physician auto adjudication specialist 12/01/23 documented as of this encounter
--- OUTSIDE RECORDS SUMMARY | 2024-10-27 10:27 | XMS_ITS | Encounter Summary ---
Author Organization [place] Address [address] [place] [address]. [place] [address] Care Team Providers Care Exercise Physiologist Certified Name Role Phone Salina Doherty MD Unavailable [phone] Carrillo Ware APRN ROTARY CUTTER Unavailable Angelica Jerez NP Unavailable [phone] Nelson Arroyo PA-C Primary Care Provider [phone] Nelson Arroyo PA-C Unavailable Pietro Wills MD Unavailable [phone] Tank Bucio MD Unavailable Reason for Visit * Reason Comments Medication Refill Encounter Details Date Type Department Care Team (Late st Contact Info) Description 07/23/2021 Refill [facility] [address] [place] [address] Concepción Gonzalez APRN ROTARY CUTTER [address] [place] [address] Medication Refill Social History Tobacco [...] PM CDT Legal Sex Female 3:44 AM TRANSMITTER OPERATOR Gender Identity Female 10/03/2020 8:33 PM CDT Sexual Orientation Straight 07/01/2018 3: 40 PM TRANSMITTER OPERATOR documented as of this encounter Miscellaneous [...] Total Score: 9 06/04/19 22 12:13 PM TRANSMITTER OPERATOR documented as of this encounter Care Teams Exercise Physiologist Certified Relationship Specialty Start Date End Date Nelson Arroyo PA-C [address] [place] [address] PCP - General Physician Brush Trimming Machine Setter - Medical 08/06/18 Salina Doherty MD Internal Medicine 12/01/14 Carrillo Ware APRN ROTARY CUTTER [address] [place] [address] Nurse Practitioner Nurse Practitioner 12/16/14 Angelica Jerez NP [address] [address] Nurse Practitioner Nurse Practitioner - Family 07/12/16 Nelson Arroyo PA-C [address] [place] [place] [address] Assigned PCP 07/30/20 Pietro Wills MD [address] [place] [address] Assigned Heart and Vascular Provider 12/14/22 06/26/24 Tank Bucio MD [address], [address] [address] Physician construction engineering manager 12/01/23 documented as of this encounter
--- OUTSIDE RECORDS SUMMARY | 2024-10-27 10:27 | XMS_ITS | Encounter Summary ---
Author Organization [place] Address [address] [place] [address]. [place] [address] Care Team Providers Care Neonatal Intensive Care Nurse Name Role Phone Salina Doherty MD Unavailable Carrillo Ware APRN CLINICAL RESEARCH NURSE COORDINATOR Unavailable SolitarioAngelica golden NP Unavailable [phone] Nelson Arroyo PA-C Unavailable Nelson Arroyo PA-C Primary Care Provider Chinyere Barbour Unavailable Unavailable Nelson Arroyo PA-C Unavailable [phone] Pietro Wills MD Unavailable Tank Bucio MD Unavailable Encounter Details Date Type Department Care Team (Late st Contact Info) Description 08/12/2018 MyC Medical Advice [facility] [id number] [place] [address], [address] [place] [address] Nelson Arroyo PA-C [address] [place] [address] Social History Tobacco Use Types [...] PM CDT Legal Sex Female 3:44 AM DERRICK HELPER Gender Identity Female 10/03/2020 8:33 PM CDT Sexual Orientation Straight 07/01/2018 3: 40 PM DERRICK HELPER documented as of this encounter Plan of Treatment Not on file documented as of this encounter Visit Diagnoses Not on filedocumented in this encounter Additional Health Concerns Assessment Noted Time PHQ-9 Depression Total Score: 13 019 7:04 AM CDT documented as of this encounter Care Teams Neonatal Intensive Care Nurse Relationship Specialty Start Date End Date Nelson Arroyo PA-C [address] [place] [address] PCP - General Physician Contract Processor - Medical 08/06/18 Salina Doherty MD Internal Medicine 12/01/14 Carrillo Ware APRN CNP [address] [place] [address] Nurse Practitioner Nurse Practitioner 12/16/14 Angelica Jerez NP [address] [address] Nurse Practitioner Nurse Practitioner - Family 07/12/16 Nelson Arroyo PA-C [address] [place] [address] Assigned PCP 07/05/18 07/29/20 Chinyere Barbour Personal Advocate & Liaison (PAL) 01/31/20 04/26/20 Nelson Arroyo PA-C [address] [place] [address] Assigned PCP 07/30/20 Pietro Wills MD [address] [place] [address] Assigned Heart and Vascular Provider 12/14/22 06/26/24 Tank Bucio MD [address], [facility] [address] [place] [address] Physician senior telecommunications consultant 12/01/23 documented as of this encounter
--- OUTSIDE RECORDS SUMMARY | 2024-10-27 10:27 | XMS_ITS | Encounter Summary ---
Author Organization [place] Address [address] [place] [address] Care Team Providers Care Fabricator Foam Rubber Name Role Phone Salina Doherty MD Unavailable [phone] Carrillo Ware APRN SPECIAL COLLECTIONS LIBRARIAN Unavailable Hillary Unger MD Primary Care P rovider [facility] NP Unavailable [phone] Nelson Arroyo PA-C Unavailable Hillary Unger MD Unavailable Hillary Unger MD Unavailable Hillary Unger MD Unavailable Nelson Arroyo PA-C Unavailable [phone] Nelson Arroyo PA-C Primary Care Provider Chinyere Barbour Unavailable Unavailable Nelson Arroyo PA-C Unavailable [phone] Pietro Wills MD Unavailable [phone] Tank Bucio MD Unavailable [phone] Reason for Visit * Reason Onset Date Comments Refill Request 02/24/2018 Encounter Details Date Type Department Care Team (Late st Contact Info) Description 02/24/2018 [facility] [address] [place] [address] Hillary Unger MD [address] [place] [address] Refill Request Social History Tobacco Use Types [...] PM CDT Legal Sex Female 3:44 AM COMMAND AND CONTROL SYSTEMS INTEGRATOR Gender Identity Female 10/03/2020 8:33 PM CDT Sexual Orientation Straight 07/01/2018 3: 40 PM COMMAND AND CONTROL SYSTEMS INTEGRATOR documented as of this encounter Miscellaneous Notes [...] get refills through her. Per pt's previous Spayeet message, she has been having trouble with [...] documented as of this encounter Care Teams Fabricator Foam Rubber Relationship Specialty Start Date End Date Hillary Unger MD [address] [place] [address] PCP - General Internal Medicine 08/21/15 08/05/18 Nelson Arroyo PA-C [address] [place] [address] PCP - Assigned PCP 04/12/18 05/02/18 Hillary Unger MD [address] [place] [address] PCP - Assigned PCP 02/01/18 04/11/18 Hillary Unger MD [address] [place] [address] PCP - Assigned PCP 05/03/18 07/07/18 Nelson Arroyo PA-C [address] [place] [address] PCP - General Physician Wind Turbine Sheet Metal Worker - Medical 08/06/18 Salina Doherty MD Internal Medicine 12/01/14 Carrillo Ware APRN SPECIAL COLLECTIONS LIBRARIAN [address] [place] [address] Nurse Practitioner Nurse Practitioner 12/16/14 Angelica Jerez NP [facility] [address] [place] [address] Nurse Practitioner Nurse Practitioner - Family 07/12/16 Hillary Unger, MD [address] [place] [address] Assigned PCP 05/03/18 07/18/18 Nelson Arroyo PA-C [address] [place] [address] Assigned PCP 07/05/18 07/29/20 Chinyere Barbour Personal Advocate & Liaison (PAL) 01/31/20 04/26/20 Nelson Arroyo PA-C [address] [place] [address] Assigned PCP 07/30/20 Pietro Wills MD [address] [place] [address] Assigned Heart and Vascular Provider 12/14/22 06/26/24 Tank Bucio MD [address], [address] [address] Physician public welfare worker 12/01/23 documented as of this encounter
--- OUTSIDE RECORDS SUMMARY | 2024-10-27 10:27 | XMS_ITS | Encounter Summary ---
Author Organization [place] Address [address] [place] [address] Care Team Providers Care Adjunct Instructor Chemistry Name Role Phone Salina Doherty MD Unavailable [phone] Carrillo Ware APRN SPORTS MEDICINE SPECIALIST Unavailable Hillary Unger MD Primary Care P rovider [facility] NP Unavailable [phone] Hillary Unger MD Unavailable Hillary Unger MD Unavailable Nelson Arroyo PA-C Unavailable [phone] Nelson Arroyo PA-C Primary Care Provider [phone] Chinyere Barbour Unavailable Unavailable Nelson Arroyo PA-C Unavailable [phone] Pietro Wills MD Unavailable [phone] Tank Bucio MD Unavailable [phone] Reason for Referral * Consultation - Closed Specialty Diagnoses / Procedures Referred By Michela t Referred To Contact Diagnoses Cellulitis of buttock Nelson Arroyo PA-C Phone: tel: fax: [facility] [address] [place] [address] Phone: tel: fax: Referral ID Status Reason Start Date Expiration Date Visits Re quested Visits Authorized [id number] Closed 06/25/2018 06/25/2019 1 1 Comments Your [...] where they were done to arrange for picker tender prior to your scheduled appointment. (2) List of current medications (3) This referral request (4) Any documents/labs given to you for this referral AVER RUBBER Reason for Visit * Reason Onset Date Comments Derm Problem 06/24/2018 Cellulitis Encounter Details Date Type Department Care Team (Late st Contact Info) Description 06/24/2018 MyC Medical Advice [address], [address] [place] [address] Nelson Arroyo PA-C [address] [place], [place] [id number] Derm Problem (Cellulitis) Social History Tobacco Use [...] PM CDT Legal Sex Female 3:44 AM ENGRAVER RUBBER Gender Identity Female 10/03/2020 8:33 PM CDT Sexual Orientation Straight 07/01/2018 3: 40 PM ENGRAVER RUBBER documented as of this encounter Plan of Treatment Scheduled Referrals Name Type Priority Associated Diagnoses Orde r Schedule DERMATOLOGY REFERRAL Referral Routine Cellulitis of buttock Ordered: 06/25/2018 documented as of this encounter Visit Diagnoses Diagnosis Cellulitis of buttock- Primary Cellulitis and abscess of buttock documented in this encounter Additional Health Concerns Assessment Noted Time PHQ-9 Depression Total Score: 9 05/15/19 19 2:09 PM ENGRAVER RUBBER documented as of this encounter Care Teams Adjunct Instructor Chemistry Relationship Specialty Start Date End Date Hillary Unger MD [address] [place], [place] [address] PCP - General Internal Medicine 08/21/15 08/05/18 Hillary Unger MD [address] [place], [place] [address] PCP - Assigned PCP 05/03/18 07/07/18 Nelson Arroyo PA-C [address] [facility] [place] [address] PCP - General Physician Agricultural Inspector - Medical 08/06/18 Salina Doherty MD Internal Medicine 12/01/14 Carrillo Ware APRN SPORTS MEDICINE SPECIALIST [address] [place] [address] Nurse Practitioner Nurse Practitioner 12/16/14 Angelica Jerez NP [facility] [address] [place] [address] Nurse Practitioner Nurse Practitioner - Family 07/12/16 Hillary Unger MD [address] [place] [address] Assigned PCP 05/03/18 07/18/18 Nelson Arroyo PA-C [address] [place] [address] Assigned PCP 07/05/18 07/29/20 Chinyere Barbour Personal Advocate & Liaison (PAL) 01/31/20 04/26/20 Nelson Arroyo PA-C [address] [place] [address] Assigned PCP 07/30/20 Pietro Wills MD [address] [place] [address] Assigned Heart and Vascular Provider 12/14/22 06/26/24 Tank Bucio MD [address], [facility] [address] [place] [address] Physician associate medical director 12/01/23 documented as of this encounter
--- OUTSIDE RECORDS SUMMARY | 2024-10-27 10:27 | XMS_ITS | Encounter Summary ---
Author Organization [place] Address [address] [place] [address]. [place] [address] Care Team Providers Care Customer Solutions Representative Name Role Phone Salina Doherty MD Unavailable Carrillo Ware APRN SPEECH AND LANGUAGE ASSISTANT Unavailable SolitarioAngelica golden NP Unavailable [phone] Loy Arroyo PA-C Primary Care Provider Loy Arroyo PA-C Unavailable [phone] Pietro Wills MD Unavailable Tank Bucio MD Unavailable Reason for Visit * Reason Onset Date Comments Refill Request 06/21/2021 Encounter Details Date Type Department Care Team (Late st Contact Info) Description 06/21/2021 MyC Medical Advice [facility] [address] [place] [address] Loy Arroyo PA-C [address] [place] [address] Refill Request Social History Tobacco [...] PM CDT Legal Sex Female 3:44 AM DROP FORGE HAND Gender Identity Female 10/03/2020 8:33 PM CDT Sexual Orientation Straight 07/01/2018 3: 40 PM DROP FORGE HAND documented as of this encounter Miscellaneous Notes * Telephone Encounter - Concepción Gonzalez APRN CNP - 06/22/2021 8:16 AM DROP FORGE HAND Refilled. Help schedule follow-up appt with loy. Concepción Gonzalez CNP FORGE HAND * Telephone Encounter - Ivette Dasilva RN [...] to pcp and POD. Ivette Dasilva RN FORGE HAND documented in this encounter Plan of Treatment Not on file documented as of this encounter Visit Diagnoses Diagnosis Generalized anxiety disorder documented in this encounter Additional Health Concerns Assessment Noted Time PHQ-9 Depression Total Score: 9 06/04/19 22 12:13 PM DROP FORGE HAND documented as of this encounter Care Teams Customer Solutions Representative Relationship Specialty Start Date End Date Loy Arroyo PA-C [address] [place] [address] PCP - General Physician Finishing And Shipping Supervisor - Medical 08/06/18 Salina Doherty MD Internal Medicine 12/01/14 Carrillo Ware APRN SPEECH AND LANGUAGE ASSISTANT [address] [place] [address] Nurse Practitioner Nurse Practitioner 12/16/14 Angelica Jerez NP [facility] [address] [place], [place] [address] Nurse Practitioner Nurse Practitioner - Family 07/12/16 Loy Arroyo PA-C [address] [place] [address] Assigned PCP 07/30/20 Pietro Wills MD [address] [place] [address] Assigned Heart and Vascular Provider 12/14/22 06/26/24 Tank Bucio MD [facility], [address] [address] Physician clocksmith 12/01/23 documented as of this encounter
--- OUTSIDE RECORDS SUMMARY | 2024-10-27 10:27 | XMS_ITS | Encounter Summary ---
Author Organization [place] Address [address] [place] [address] Care Team Providers Care Section Forest Fire Warden Name Role Phone Salina Doherty MD Unavailable [phone] Carrillo Ware APRN RADIO INTERFERENCE SUPERVISOR Unavailable Hillary Unger MD Primary Care P rovider [facility] NP Unavailable [phone] Hillary Unger MD Unavailable Hillary Unger MD Unavailable Nelson Arroyo PA-C Unavailable [phone] Nelson Arroyo PA-C Primary Care Provider [phone] Chinyere Barbour Unavailable Unavailable Nelson Arroyo PA-C Unavailable [phone] Pietro Wills MD Unavailable Tank Bucio MD Unavailable [phone] Encounter Details Date Type Department Care Team (Late st Contact Info) Description 06/30/2018 [facility] [address], [address] [place] [address] Nelson Arroyo PA-C [address] [place] [address] Social History Tobacco Use Types [...] CDT Legal Sex Female 3:44 AM DIRECTOR EMERGENCY DEPARTMENT Gender Identity Female 10/03/2020 8:33 PM CDT Sexual Orientation Straight 07/01/2018 3: 40 PM DIRECTOR EMERGENCY DEPARTMENT documented as of this encounter Plan of Treatment Not on file documented as of this encounter Visit Diagnoses Not on filedocumented in this encounter Additional Health Concerns Assessment Noted Time PHQ-9 Depression Total Score: 9 05/15/19 19 2:09 PM DIRECTOR EMERGENCY DEPARTMENT documented as of this encounter Care Teams Section Forest Fire Warden Relationship Specialty Start Date End Date Hillary Unger MD [address] [place] [address] PCP - General Internal Medicine 08/21/15 08/05/18 Hillary Unger MD [address] [place] [address] PCP - Assigned PCP 05/03/18 07/07/18 Nelson Arroyo PA-C [address] [place] [address] PCP - General Physician Associate Professor Of Medicine - Medical 08/06/18 Salina Doherty MD Internal Medicine 12/01/14 Carrillo Ware APRN RADIO INTERFERENCE SUPERVISOR [address] [place] [address] Nurse Practitioner Nurse Practitioner 12/16/14 Angelica Jerez FOAM GUN OPERATOR [facility] [address] [place] [address] Nurse Practitioner Nurse Practitioner - Family 07/12/16 Hillary Unger MD [address] [place] [address] Assigned PCP 05/03/18 07/18/18 Nelson Arroyo PA-C [address] [place] [address] Assigned PCP 07/05/18 07/29/20 Chinyere Barbour Personal Advocate & Liaison (PAL) 01/31/20 04/26/20 Nelson Arroyo PA-C [address] [place] 0[address] Assigned PCP 07/30/20 Pietro Wills MD [address] [place] [address] Assigned Heart and Vascular Provider 12/14/22 06/26/24 Tank Bucio MD [address], [address] [address] Physician boy's adviser 12/01/23 documented as of this encounter
--- OUTSIDE RECORDS SUMMARY | 2024-10-27 10:27 | XMS_ITS | Encounter Summary ---
Author Organization [place] Address [address] [place] [address] Care Team Providers Care Lpn Home Health Name Role Phone Salina Doherty MD Unavailable [phone] Carrillo Ware APRN SOLE ROUNDER Unavailable SolitarioAngelica golden NP Unavailable [phone] Nelson Arroyo PA-C Primary Care Provider [phone] Nelson Arroyo PA-C Unavailable [phone] Pietro Wills MD Unavailable Tank Bucio MD Unavailable [phone] Encounter Details Date Type Department Care Team [...] PM CDT Legal Sex Female 3:44 AM HYDRAULIC PRESS SERVICER Gender Identity Female 10/03/2020 8:33 PM CDT Sexual Orientation Straight 07/01/2018 3: 40 PM HYDRAULIC PRESS SERVICER documented as of this encounter Plan of Treatment Not on file documented as of this encounter Visit Diagnoses Not on filedocumented in this encounter Additional Health Concerns Assessment Noted Time PHQ-9 Depression Total Score: 9 06/04/19 22 12:13 PM HYDRAULIC PRESS SERVICER documented as of this encounter Care Teams Lpn Home Health Relationship Specialty Start Date End Date Nelson Arroyo PA-C [address] [place] [address] PCP - General Physician Heavy Media Operator - Medical 08/06/18 Salina Doherty MD Internal Medicine 12/01/14 Carrillo Ware APRN SOLE ROUNDER [address] [place] [address] Nurse Practitioner Nurse Practitioner 12/16/14 Angelica Jerez NP [facility] [address] [place] [address] Nurse Practitioner Nurse Practitioner - Family 07/12/16 Nelson Arroyo PA-C [address] [place] [address] Assigned PCP 07/30/20 Pietro Wills MD [address] [place] [address] Assigned Heart and Vascular Provider 12/14/22 06/26/24 Tank Bucio MD [address] [facility] [address] [address] Physician inspector multifocal lens 12/01/23 documented as of this encounter
--- OUTSIDE RECORDS SUMMARY | 2024-10-27 10:27 | XMS_ITS | Encounter Summary ---
Author Organization [place] Address [address] [place] [address] Care Team Providers Care Farmworkers Name Role Phone Salina Doherty MD Unavailable [phone] Carrillo Ware APRN FOOD SAFETY DIRECTOR Unavailable Hillary Unger MD Primary Care P rovider [facility] NP Unavailable [phone] Hillary Unger MD Unavailable Hillary Unger MD Unavailable Nelson Arroyo PA-C Unavailable Nelson Arroyo PA-C Primary Care Provider Chinyere Barbour Unavailable Unavailable Nelson Arroyo PA-C Unavailable [phone] Pietro Wills MD Unavailable [phone] Tank Bucio MD Unavailable [phone] Reason for Visit * Reason Onset Date Comments WOUND CARE 07/01/2018 Follow up Encounter Details Date Type Department Care Team (Late st Contact Info) Description 07/01/2018 MyC Medical Advice [place] [address] [facility], [address] [place] [address] Nelson Arroyo PA-C [address] [place] [address] WOUND CARE (Follow up) Social History Tobacco [...] PM CDT Legal Sex Female 3:44 AM LAMBSKIN TRIMMER Gender Identity Female 10/03/2020 8:33 PM CDT Sexual Orientation Straight 07/01/2018 3: 40 PM LAMBSKIN TRIMMER documented as of this encounter Plan of Treatment Not on file documented as of this encounter Visit Diagnoses Not on filedocumented in this encounter Additional Health Concerns Assessment Noted Time PHQ-9 Depression Total Score: 9 05/15/19 19 2:09 PM LAMBSKIN TRIMMER documented as of this encounter Care Teams Farmworkers Relationship Specialty Start Date End Date Hillary Unger MD [address] [place] [address] PCP - General Internal Medicine 08/21/15 08/05/18 Hillary Unger MD [address] [place] [address] PCP - Assigned PCP 05/03/18 07/07/18 Nelson Arroyo PA-C [address] [address] PCP - General Physician Storage Management Architect - Medical 08/06/18 Salina Doherty MD Internal Medicine 12/01/14 Carrillo Ware APRN FOOD SAFETY DIRECTOR [address] [place] [address] Nurse Practitioner Nurse Practitioner 12/16/14 Angelica Jerez CAGE UNLOADER [facility] [address] [place], [place] [address] Nurse Practitioner Nurse Practitioner - Family 07/12/16 Hillary Unger MD [address] [place], [place] [address] Assigned PCP 05/03/18 07/18/18 Nelson Arroyo PA-C [address] [place] [address] Assigned PCP 07/05/18 07/29/20 Chinyere Barbour Personal Advocate & Liaison (PAL) 01/31/20 04/26/20 Nelson Arroyo PA-C [address] [place] [address] Assigned PCP 07/30/20 Pietro Wills MD [address] [place] [address] Assigned Heart and Vascular Provider 12/14/22 06/26/24 Tank Bucio MD [address], [address] [address] Physician secondary school principal 12/01/23 documented as of this encounter
--- OUTSIDE RECORDS SUMMARY | 2024-10-27 10:27 | XMS_ITS | Encounter Summary ---
Author Organization [facility] Address [address] [place] [address] Care Team Providers Care Screen Tender Helper Name Role Phone Salina Doherty MD Unavailable [phone] Carrillo Ware APRN RIPRAP PLACER Unavailable [phone] Hillary Unger MD Primary Care P rovider [facility] Unavailable [phone] Nelson Arroyo PA-C Unavailable Nelson Arroyo PA-C Primary Care Provider Chinyere Barbour Unavailable Unavailable Nelson Arroyo PA-C Unavailable [phone] Pietro Wills MD Unavailable [phone] Tank Bucio MD Unavailable [phone] Reason for Visit * Reason Onset Date Comments Refill Request 08/03/2018 Encounter Details Date Type Department Care Team (Late st Contact Info) Description 08/03/2018 MyC Refill [facility] [address] [place] [address] Hillary Unger MD [facility] [address] Refill Request Social History Tobacco [...] PM CDT Legal Sex Female 3:44 AM DOUGHNUT ICER Gender Identity Female 10/03/2020 8:33 PM CDT Sexual Orientation Straight 07/01/2018 3: 40 PM DOUGHNUT ICER documented as of this encounter Miscellaneous Notes [...] MyChart Physical Adult with Nelson Arroyo PA-C [facility] ([facility] [address] [place] [phone] documented in this encounter Plan of Treatment Not on file documented as of this encounter Visit Diagnoses Diagnosis Generalized anxiety disorder Major depressive disorder, recurrent episode, moderate (H) Major depressive disorder, recurrent episode, moderate documented in this encounter Additional Health Concerns Assessment Noted Time PHQ-9 Depression Total Score: 9 05/15/19 19 2:09 PM DOUGHNUT ICER documented as of this encounter Care Teams Screen Tender Helper Relationship Specialty Start Date End Date Hillary Unger MD [address] [place] [address] PCP - General Internal Medicine 08/21/15 08/05/18 Nelson Arroyo PA-C [address] [facility] [place] [address] PCP - General Physician Speech Therapist Technician - Medical 08/06/18 Salina Doherty MD Internal Medicine 12/01/14 Carrillo Ware APRN RIPRAP PLACER [address] [place] [address] Nurse Practitioner Nurse Practitioner 12/16/14 Angelica Jerez LASER SYSTEMS ENGINEER [facility] [address] [place] [address] Nurse Practitioner Nurse Practitioner - Family 07/12/16 Nelson Arroyo PA-C [address] [place] [address] Assigned PCP 07/05/18 07/29/20 Chinyere Barbour Personal Advocate & Liaison (PAL) 01/31/20 04/26/20 Nelson Arroyo PA-C [address] [place] [id number] Assigned PCP 07/30/20 Pietro Wills MD [address] [place] [address] Assigned Heart and Vascular Provider 12/14/22 06/26/24 Tank Bucio MD [address], [facility] [address] [place] [address] Physician car salesman 12/01/23 documented as of this encounter
--- OUTSIDE RECORDS SUMMARY | 2024-10-27 10:27 | XMS_ITS | Encounter Summary ---
Author Organization [facility] Address [address] [place] [address]. [place] [address] Care Team Providers Care Air Hoist Operator Name Role Phone Salina Doherty MD Unavailable [phone] Carrillo Ware APRN ICER MACHINE OPERATOR Unavailable [facility] golden NP Unavailable [phone] Nelson Arroyo PA-C Unavailable Nelson Arroyo PA-C Primary Care Provider Chinyere Barbour Unavailable Unavailable Nelson Arroyo PA-C Unavailable Pietro Wills MD Unavailable Tank Bucio MD Unavailable Reason for Visit * Reason Onset Date Comments MyChart Communication 08/06/2018 Encounter Details Date Type Department Care Team (Late st Contact Info) Description 08/06/2018 MyC Medical Advice [facility] [address] [place] [address] Nelson Arroyo PA-C [address] [place] [address] MyChart Communication Social History Tobacco [...] Legal Sex Female 3:44 AM DIRECTOR OF NEIGHBORHOOD SERVICE CENTER Gender Identity Female 10/03/2020 8:33 PM CDT Sexual Orientation Straight 07/01/2018 3: 40 PM DIRECTOR OF NEIGHBORHOOD SERVICE CENTER documented as of this encounter Miscellaneous Notes * Telephone Encounter - Nelson Arroyo PA-C - 08/07/2018 10:06 AM CDT Yes. This is fine. Nelson * Telephone Encounter - Susanne Zacarias RN - 08/07/2018 8:03 AM CDT PCP: Please see below. Ok for 90 day supply? Susanne Zacarias RN -- [facility] documented in this encounter Plan of Treatment Not on file documented as of this encounter Visit Diagnoses Diagnosis Muscle spasm Spasm of muscle Cervicalgia documented in this encounter Additional Health Concerns Assessment Noted Time PHQ-9 Depression Total Score: 13 019 7:04 AM CDT documented as of this encounter Care Teams Air Hoist Operator Relationship Specialty Start Date End Date Nelson Arroyo PA-C [address] [place] [address] PCP - General Physician Scrum Master - Medical 08/06/18 Salina Doherty MD Internal Medicine 12/01/14 Carrillo Ware APRN ICER MACHINE OPERATOR [address] [place] [address] Nurse Practitioner Nurse Practitioner 12/16/14 Angelica Jerez NP [facility] [address] [place] [address] Nurse Practitioner Nurse Practitioner - Family 07/12/16 Nelson Arroyo PA-C [address] [place] [address] Assigned PCP 07/05/18 07/29/20 Chinyere Barbour Personal Advocate & Liaison (PAL) 01/31/20 04/26/20 Nelson Arroyo PA-C [address] [place] [address] Assigned PCP 07/30/20 Pietro Wills MD [address] [place] [address] Assigned Heart and Vascular Provider 12/14/22 06/26/24 Tank Bucio MD [address], [facility] [address] [place] [address] Physician sheet metal technician 12/01/23 documented as of this encounter
--- OUTSIDE RECORDS SUMMARY | 2024-10-27 10:27 | XMS_ITS | Encounter Summary ---
Author Organization [facility] Address [address] [place] [address]. [place] [address] Care Team Providers Care Loaders Name Role Phone Salina Doherty MD Unavailable [phone] Carrillo Ware APRN RUBBER GOODS ASSEMBLER Unavailable Hillary Unger MD Primary Care P rovider [facility] Unavailable [phone] Nelson Arroyo PA-C Unavailable [phone] Nelson Arroyo PA-C Primary Care Provider Chinyere Barbour Unavailable Unavailable Nelson Arroyo PA-C Unavailable Pietro Wills MD Unavailable [phone] Tank Bucio MD Unavailable Reason for Visit * Reason Onset Date Comments MyChart Communication 07/19/2018 Encounter Details Date Type Department Care Team (Late st Contact Info) Description 07/19/2018 MyC Medical Advice [address], [address] [place] [address] Nelson Arroyo PA-C [address] [place] [address] MyChart Communication Social History Tobacco [...] PM CDT Legal Sex Female 3:44 AM SLURRY MIXER Gender Identity Female 10/03/2020 8:33 PM CDT Sexual Orientation Straight 07/01/2018 3: 40 PM SLURRY MIXER documented as of this encounter Miscellaneous Notes * Telephone Encounter - Susanne Zacarias RN - 07/20/2018 1:48 PM CDT Responded to the Pt. Susanne Zacarias RN -- [facility] [employer] [facility] * Telephone Encounter - Nelson Arroyo [...] Wellbutrin going forward. Susanne Zacarias RN -- [employer] * Telephone Encounter - Susanne Zacarias RN - 07/20/2018 9:00 AM CDT Responded to the Pt. It looks like psych is managing her Wellbutrin. Advised OV for C-diff concerns. Susanne Zacarias, YULI -- [facility] documented in this encounter Plan of Treatment Not on file documented as of this encounter Visit Diagnoses Diagnosis Persistent insomnia Persistent disorder of initiating or maintaining sleep SHANTELL (generalized anxiety disorder) Generalized anxiety disorder documented in this encounter Additional Health Concerns Assessment Noted Time PHQ-9 Depression Total Score: 9 05/15/19 19 2:09 PM SLURRY MIXER documented as of this encounter Care Teams Loaders Relationship Specialty Start Date End Date Hillary Unger MD [address] [place], [place] [address] PCP - General Internal Medicine 08/21/15 08/05/18 Nelson Arroyo PA-C [address] [place] [address] PCP - General Physician Greeter Guest Services - Medical 08/06/18 Salina Doherty MD Internal Medicine 12/01/14 Carrillo Ware APRN RUBBER GOODS ASSEMBLER [address] [place] [id number] Nurse Practitioner Nurse Practitioner 12/16/14 Angelica Jerez NP [facility] [address] [place], [place] [address] Nurse Practitioner Nurse Practitioner - Family 07/12/16 Nelson Arroyo PA-C [address] [place] [address] Assigned PCP 07/05/18 07/29/20 Chinyere Barbour Personal Advocate & Liaison (PAL) 01/31/20 04/26/20 Nelson Arroyo PA-C [address] [place] [address] Assigned PCP 07/30/20 Pietro Wills MD [address] [place] [address] Assigned Heart and Vascular Provider 12/14/22 06/26/24 Tank Bucio MD [address], [address] [address] Physician organic preparation technician 12/01/23 documented as of this encounter
== END 2024-10-27 10:09 | disposition home or self-care (01) ==
PROVIDERS: Visit Provider Obstetrics & Gynecology
DX: O24.419 Gestational diabetes mellitus in pregnancy, unspecified control (principal); O99.213 Obesity complicating pregnancy, third trimester; Z3A.28 28 weeks gestation of pregnancy
CPT/HCPCS: 76816

== ENCOUNTER 2024-10-29 13:25 | Outpatient (CLI) | payer MEDICAID, SELFPAY ==
[2024-10-29 15:52] LABS: Bacterial Vaginosis* Negative (Negative); Candida glab/krus NOT DETECTED (No Detected); Candida species NOT DETECTED (No Detected); Trichomonas vaginalis NOT DETECTED (No Detected)
== END 2024-10-29 13:26 | disposition home or self-care (01) ==
LOC: NFLDREF 13:25
PROVIDERS: Visit Provider Registered Nurse
DX: N89.8 Other specified noninflammatory disorders of vagina (principal)
CPT/HCPCS: 81513; 87481; 87661

== ENCOUNTER 2024-11-26 12:53 | Outpatient (CLI) | payer MEDICAID, SELFPAY ==
--- NOTE | 2024-11-26 13:00 | CRLHL7_ITS ---
For Patients: As a result of the Century Cures Act, medical imaging exams and procedure reports are released immediately into your electronic medical record. You may view this report before your referring provider. If you have questions, please contact your health care provider. OB ULTRASOUND FOLLOW-UP/LIMITED, 11/26/2024 CLINICAL HISTORY: GDM, follow-up growth. COMPARISON: 10/27/2024, 08/25/2024, 07/20/2024. TECHNIQUE: Real time ayala scale imaging of the fetus was performed. Multiple transabdominal ayala-scale, color and M-mode Doppler images were obtained. FINDINGS: GABRIEL by LMP: 01/14/2025. GA: 33 weeks 0 days. Gestation: Single. Cervix: Not visualized. Positioning: Vertex. Amniotic Fluid: 4.4 cm SDP. Placenta: Technique: TA. Placenta Position: Posterior. Dopplers: Heart Rate: 127 bpm. BIOMETRY: BPD: 8.3 cm, 33 weeks 5 days. 65.8% HC: 30.9 cm, 34 weeks 4 days. 52.6% AC: 29.9 cm, 33 weeks 6 days. 75.8% FL: 6.4 cm, 33 weeks 0 days. 39.7% FL/AC Ratio: 21.4% HC/AC Ratio: 1.0. EFW: 2254 g, 5 lb 0 oz. age by this US: 33 weeks 6 days. GABRIEL by this US: 01/08/2025. Percentile by GABRIEL: 63.1% IMPRESSION: 1. Estimated weight is at the 63rd percentile. 2. Bilateral renal pyelectasis measuring 5 mm. Farooq Chisholm M.D. Body/Diagnostic Radiologist [email or web address] Transcribed: 11:35 am DW/Dictated by: Farooq Chisholm MD @ 12/01/2024 11:23:00 AM (Electronically Signed)
== END 2024-11-26 12:54 | disposition home or self-care (01) ==
LOC: US 12:54
PROVIDERS: Visit Provider Obstetrics & Gynecology
DX: O24.419 Gestational diabetes mellitus in pregnancy, unspecified control (principal); Z3A.33 33 weeks gestation of pregnancy
CPT/HCPCS: 76816

== ENCOUNTER 2024-12-02 10:14 | Outpatient (CLI) | payer MEDICAID, SELFPAY ==
--- NOTE | 2024-12-02 10:15 | CRLHL7_ITS ---
For Patients: As a result of the Century Cures Act, medical imaging exams and procedure reports are released immediately into your electronic medical record. You may view this report before your referring provider. If you have questions, please contact your health care provider. INDICATION: Gestational diabetes TECHNIQUE: Ultrasound OB pelvis transabdominal. Real-time ayala-scale imaging of the fetus was performed with color Doppler and spectral Doppler analysis of the umbilical artery without stress testing. COMPARISON: 11/26/2024 FINDINGS: Sonographic imaging demonstrates a single living intrauterine gestation. Fetus demonstrates a regular cardiac rate of 157 beats per minute. Fetus has a cephalic orientation. The placenta lies posterior. Amniotic fluid volume appears normal with a MVP of 7.2 cm. breathing movements, motion, and tone were all observed. IMPRESSION: Single viable intrauterine with a biophysical profile 12/10. Dictated by Nickolas Mcdonnell MD @ 12/02/2024 1:06:46 PM (Electronically Signed)
== END 2024-12-02 10:15 | disposition home or self-care (01) ==
LOC: US 10:14
PROVIDERS: Visit Provider Obstetrics & Gynecology
DX: O24.419 Gestational diabetes mellitus in pregnancy, unspecified control (principal)
CPT/HCPCS: 76819

== ENCOUNTER 2024-12-08 14:43 | Outpatient (CLI) | payer MEDICAID, SELFPAY | END 2024-12-08 14:44 | disposition home or self-care (01) | LOC: US 14:44 | PROVIDERS: Visit Provider Obstetrics & Gynecology | DX: O24.419 Gestational diabetes mellitus in pregnancy, unspecified control (principal); Z3A.34 34 weeks gestation of pregnancy | CPT/HCPCS: 76816; 76819 ==

== ENCOUNTER 2024-12-16 12:16 | Outpatient (CLI) | payer MEDICAID, SELFPAY ==
--- NOTE | 2024-12-16 12:15 | CRLHL7_ITS ---
For Patients: As a result of the Cures Act, medical imaging exams and procedure reports are released immediately into your electronic medical record. You may view this report before your referring provider. If you have questions, please contact your health care provider. OB ULTRASOUND BIOPHYSICAL PROFILE, 12/16/2024 CLINICAL HISTORY: GDM. COMPARISON: 12/08/2024, 12/02/2024. TECHNIQUE: Real time ayala scale imaging of the fetus was performed. Transabdominal imaging performed. FINDINGS: LMP: 04/09/2024. GABRIEL by LMP: 01/14/2025. GA: 35 weeks 6 days. Gestation: Single. Cervix: Not visualized. Positioning: Vertex. Amniotic Fluid: 7.0 cm SDP. BIOPHYSICAL PROFILE: Gross Body Movements: 2 Tone: 2 Respiratory Activity: 2 Amniotic Fluid SDP: 2 Total Score: 8 Placenta: Technique: TA. Placenta Position: Posterior. Dopplers: Heart Rate: 167 bpm. IMPRESSION: Normal biophysical profile score of 8/8. Hugh Leon M.D. Diagnostic Radiologist [email or web address] Transcribed: 1:32 pm DW/Dictated by: Hugh Leon MD @ 12/16/2024 12:45:00 PM (Electronically Signed)
== END 2024-12-16 12:17 | disposition home or self-care (01) ==
LOC: US 12:17
PROVIDERS: Visit Provider Obstetrics & Gynecology
DX: O24.419 Gestational diabetes mellitus in pregnancy, unspecified control (principal); Z3A.35 35 weeks gestation of pregnancy
CPT/HCPCS: 76819

== ENCOUNTER 2024-12-16 12:56 | Outpatient (CLI) | payer MEDICAID, SELFPAY ==
[2024-12-17 12:16] LABS: Strep B DNA Probe Negative (Negative)
[2024-12-17 13:50] LABS: Strep B Susceptibility Needed? No
== END 2024-12-16 12:57 | disposition home or self-care (01) ==
PROVIDERS: Visit Provider Obstetrics & Gynecology
DX: O13.3 Gestational [pregnancy-induced] hypertension without significant proteinuria, third trimester (principal); O24.419 Gestational diabetes mellitus in pregnancy, unspecified control; Z3A.35 35 weeks gestation of pregnancy
CPT/HCPCS: 87081; 87653

== ENCOUNTER 2024-12-16 13:20 | Outpatient (CLI) | payer MEDICAID, SELFPAY ==
[2024-12-16 13:40] VITALS: PULSE 85; O2SAT 97
[2024-12-16 13:42] VITALS: RESP 16; TEMP 36.8
[2024-12-16 13:46] VITALS: BP 124/78; PULSE 83
[2024-12-16 13:55] LABS: Hematocrit* 36.1 % (33.0-51.0); Hemoglobin* 12.3 gm/dL (12.0-16.0); Mean Corpuscular HGB Conc 34 gm/dL (32-36); Mean Corpuscular Hemoglobin 30 pg (26-34); Mean Corpuscular Volume 87 fL (80-100); Red Blood Count* 4.14 m/uL (4.00-5.20); White Blood Count* 13.94 K/uL (4.50-11.00)
[2024-12-16 13:57] LABS: Alanine Aminotransferase* 15 U/L (4-35); Aspartate Amino Transferase* 22 U/L (12-35); Blood Urea Nitrogen* 16 mg/dL (5-24); Creatinine* 0.5 mg/dL (0.5-1.5); Estimated Glomerular Filt Rate 129 ml/min
[2024-12-16 13:58] LABS: Protein Creatinine Ratio Urine 0.20 (0-0.19)
[2024-12-16 14:00] LABS: Slide Review Reflex No
[2024-12-16 14:04] VITALS: BP 119/67; PULSE 82
[2024-12-16 14:19] VITALS: BP 118/70; PULSE 82
[2024-12-16 14:34] VITALS: BP 118/73; PULSE 80
--- NOTE | 2024-12-16 15:31 | PC.OBNST ---
NST Note NST Note Start: 12/16/24 13:25 Freq: ONCE Status: Active Protocol: Document 12/16/24 14:33 WK (Rec: 12/16/24 15:31 WK No Response) NST Note 1 Para (# of births) 0 EDC 01/14/25 Gestational Age In 35 Weeks & 6 Days Weeks & Days High Risk Factors High Blood Pressure - Gestational,Diabetes - Gestational Insulin Patient Presented Other with Complaint(s) of Other Complaints R/O preeclampsia Reactive Yes YULI Aguilar RNC Date 12/16/24 Reactive Yes RN New RN Date 12/16/24 OB NST charge Yes Complete NST Note Yes via Write Note The provider's electronic signature indicates the NST is reactive/appropriate for gestational age. *Note to provider: If an addendum is required, open the patient's chart and click on the note under the Nurse/Allied Health tab.
== END 2024-12-16 14:50 | disposition home or self-care (01) ==
LOC: OB OUT 13:21 → OB 13:21
PROVIDERS: Visit Provider Obstetrics & Gynecology
DX: O24.419 Gestational diabetes mellitus in pregnancy, unspecified control (principal); O26.893 Other specified pregnancy related conditions, third trimester; R03.0 Elevated blood-pressure reading, without diagnosis of hypertension; Z3A.35 35 weeks gestation of pregnancy
CPT/HCPCS: 36415; 59025; 76819; 82565; 82570; 84156; 84450; 84460; 84520; 85027; G0463

== ENCOUNTER 2024-12-20 12:11 | Outpatient (CLI) | payer MEDICAID, SELFPAY ==
--- NOTE | 2024-12-20 12:15 | CRLHL7_ITS ---
For Patients: As a result of the Century Cures Act, medical imaging exams and procedure reports are released immediately into your electronic medical record. You may view this report before your referring provider. If you have questions, please contact your health care provider. INDICATION: Gestational diabetes mellitus. Nonreactive NST. Thirty-six week 3 day gestation. Technique: Multiple transabdominal grayscale, color and M-mode Doppler images from a biophysical profile were submitted. FINDINGS: breathing movements: 2 Gross body movements: 2 tone: 2 Amniotic fluid volume: 2 Total: 8/ Amniotic Fluid SDP: 4.4 cm. Heart rate is 139 beats per minute. Vertex presentation posterior placenta. IMPRESSION: Normal biophysical profile score of 8/8. Dictated by Farooq Chisholm MD @ 12/22/2024 8:45:21 AM (Electronically Signed)
== END 2024-12-20 12:12 | disposition home or self-care (01) ==
LOC: US 12:12
PROVIDERS: Visit Provider Obstetrics & Gynecology
DX: O24.419 Gestational diabetes mellitus in pregnancy, unspecified control (principal)
CPT/HCPCS: 76819

== ENCOUNTER 2024-12-22 11:05 | Outpatient (CLI) | payer MEDICAID, SELFPAY ==
[2024-12-22 11:16] VITALS: BP 115/72; PULSE 88; RESP 17; TEMP 36.7
--- NOTE | 2025-01-03 07:40 | PC.OBNST ---
NST Note NST Note Start: 12/22/24 11:10 Freq: ONCE Status: Discharge Protocol: Document 12/22/24 11:10 [facility] (Rec: 12/22/24 11:52 [facility] No Response) NST Note 1 Para (# of births) 0 EDC 01/14/25 Gestational Age In 36 Weeks & 5 Days Weeks & Days High Risk Factors High Blood Pressure - Gestational,Diabetes - Gestational Insulin Patient Presented Decreased movement with Complaint(s) of Reactive Yes Appropriate for Yes Gestational Age RN Case RN Date 12/22/24 Reactive Yes Appropriate for Yes Gestational Age RN Jetter RN Date 12/22/24 OB NST charge Yes Complete NST Note Yes via Write Note The provider's electronic signature indicates the NST is reactive/appropriate for gestational age. *Note to provider: If an addendum is required, open the patient's chart and click on the note under the Nurse/Allied Health tab.
== END 2024-12-22 11:50 | disposition home or self-care (01) ==
LOC: OB OUT 11:06 → OB 11:07
PROVIDERS: Referring Provider Obstetrics & Gynecology; Visit Provider Obstetrics & Gynecology
DX: O24.419 Gestational diabetes mellitus in pregnancy, unspecified control (principal)
CPT/HCPCS: 59025; G0463

== ENCOUNTER 2024-12-23 16:23 | Inpatient (IN) | payer MEDICAID, SELFPAY ==
[2024-12-23 16:53] VITALS: BP 132/77; PULSE 89; RESP 14; TEMP 36.6
[2024-12-23 17:31] VITALS: BMI 39.1
[2024-12-23 19:02] LABS: Hematocrit 32.6 % (33.0-51.0); Hemoglobin* 11.2 gm/dL (12.0-16.0); Immature Granulocytes Pct Auto 0.6 %; Mean Corpuscular HGB Conc 34 gm/dL (32-36); Mean Corpuscular Hemoglobin 30 pg (26-34); Mean Corpuscular Volume 87 fL (80-100); RDW Coefficient of Variation % 13.0 % (11.5-15.5); Red Blood Count 3.76 m/uL (4.00-5.20); White Blood Count* 12.98 K/uL (4.50-11.00)
[2024-12-23 19:06] LABS: Immature Granulocytes Abs Auto 0.10 K/uL (0.00-0.30); Lymphocytes Absolute Auto 1.60 K/uL (0.90-2.90); Slide Review Reflex No
--- NOTE | 2024-12-23 19:06 | W.PM.LDBA ---
Subjective History of Present Illness Time Seen by Provider: 19:06 Date Seen: 12/23/24 Narrative: Tali is being admitted to Labor and Delivery for an induction of labor. She is a 29 year old at 36 and 6/7 weeks gestation. Her full history and physical was dictated by Dr. Ho on 12/16/2024. Please see this for details. I am planning on checking her cervix this evening and if dilated enough plan on placing a Cook catheter. If not dilated enough to put a catheter and then will do Cytotec vaginally. Specific Issues/Plans Spouse: Rex Meza Baby: [place] H&P by CGM 12/16/24 #GHTN 2 elevated BPs more than 4 hours apart Delivery at 37 weeks-IOL request to start on 12/23/24 Re check cervix next Friday12/21/24- to determine time for arrival would start Cytotec earlier on 12/23/24... #GDM A2- 11/26/24 dx'd on 10/12/24 based on 1hr gtt of 209 referral to Automotive Electrician growth US q4 weeks starting at 32 weeks Referral to start insulin placed 11/26/24 11/29/24: NPH 6 U prebreakfast, NPH 10 U @ HS, increase to 8 units in am, continue 10 units in pm 12/10/24, increase to 10 units in am, 12 units in pm-12/16/24 Twice weekly monitoring-new testing form completed and sent 11/26/24 # BMI 32.7 A1C 5.4 Aspirin at 12 weeks # Anxiety, depression, insomnia. Taking lamotrigine, quetiapine. Encouraged increase folic acid, 4-5mg. Has consulted with OB psych provider. [x] Level 2 US and consult [x ] 28 and 34 week growth with MFM # Metoprolol for tachycardia, anxiety/heart palpitations by PCP. Judie spoke w/ PCP. Pt. had cardiology workup with Dena. Advised patient to continue Metoprolol. # Father of baby with Factor V. # Fibroid: Right lower uterine segment intramural 11 x 7 x 10 mm # Rh status discrepancy - [facility] BT: A weak D positive. Rhogam was given. - Internal blood type: A+ - Fetus is Rh+ on NIPT - Discussion w/ Tammi Cr + pathologist to clarify internal protocols in this regard #Pyelectasis, R at 4.3mm on level 2 - Reassess at 28 and 34 week growth US -Resolved Flu: completed Covid: not vaccinated. recommended. declined. TDAP: 11/12/24 Mental Health: Hgb: GBS: Collected 12/16/24 Previous labs: 05/21/24: Blood type A weak D positive, antibody screen negative, hemoglobin 13.7, platelets 389, rubella 2.96, rpr non reactive, HBsAG non reactive, HIV non reactive, gonorrhea and chlamydia both negative, Hep C non reactive, varicella 2.82, positive, Urine culture <64852 cfu/mL. Pap 03/31/23 NIL, neg HPV. Imaging: Level 2 US 08/25: EFW 363 g at 90%, AC 73%. Normal visualized anatomy, aside from right pyelectasis (4.3mm). Posterior placenta, no previa. MVP 4 cm. Cervix long/closed. 11/26/24: Vertex, SDP: 4.4 cm, BPD: 65.8 percentile, HC: 53 percentile, AC: 76 percentile, FL: 40th percentile. EFW: 63 percentile. 12/08/24: MFM FU: Vertex presentation, single deepest pocket of amniotic fluid 6.1 cm, EFW: 32.6 percentile, AC: 46.4 percentile. BPP 12/10. Recommendation: We reviewed that the visualized anatomy appeared within normal limits on today's US and there is no evidence of pyelectasis on today's US. Given GDM A2, continue twice weekly surveillance and recommend repeat assessment of growth and anatomy in 3-4 weeks, which I anticipate will be scheduled through [facility]. Delivery is recommended at 39 weeks if euglycemia achieved with insulin. Return to primary provider for continued care. . OB - Problem Based A/P Additional Plan (1) Gestational hypertension: Status: Acute Plan: 1. Preeclampsia labs with type and screen ordered. 2. Continue metoprolol b.i.d. for control of tachycardia 3. For cervical ripening: Cytotec 25 mg PV q.3 hours maximum of 6 doses. 4. If Fairchild score is >/= 6 then plan on starting Pitocin per induction protocol. If her cervix is dilated more than 1 cm but does not need a Fairchild score of 6 or more then Cook catheter placement is planned. (2) GDM, class A2: Status: Acute Plan: 1. Plan NPH 6 units at bedtime and 5 units in the morning prior to breakfast. This is half of her usual dose. 2. Labor plan on checking her blood sugar an using a sliding scale of regular insulin to treat blood sugars greater than or equal to 120. 3. Dr. Louise to assume care of the patient at 7:00 a.m. on 12/24/2024 OB Exam Physical Exam Vital signs: Temp Pulse Resp BP 98 F 89 14 132/77 12/23/24 16:53 12/23/24 16:53 12/23/24 16:53 12/23/24 16:53 Narrative: General: Pleasant, , well groomed woman in no acute distress. Vital signs: Included in her electronic medical record. Heart: Regular rate and rhythm without gallop, rub or murmur. Chest: Clear to auscultation bilaterally. Abdomen: Gravid, nontender. EFM: Baseline 130 bpm. Moderate variability. Accelerations: Present. Decelerations: Absent. Reactive. Category 1. TOCO: Sporadic contractions that the patient is not feeling. SVE: Fingertip/50%/-2/mid/medium. 25 mg Cytotec placed. Fairchild score 3.
[2024-12-23 19:19] LABS: Blood Urea Nitrogen* 14 mg/dL (5-24); Creatinine* 0.5 mg/dL (0.5-1.5); Est. Creatinine Clearance* 154.02; Estimated Glomerular Filt Rate 129 ml/min
[2024-12-23 19:20] LABS: Alanine Aminotransferase* 17 U/L (4-35); Aspartate Amino Transferase* 27 U/L (12-35)
[2024-12-23 19:21] LABS: Protein Creatinine Ratio Urine 0.18 (0-0.19)
[2024-12-23 19:25] VITALS: BP 130/69; PULSE 89; RESP 16; TEMP 36.6
[2024-12-23] MEDS: METOPROLOL SUCCINATE (XL) 50 MG TAB PO (20:57)
[2024-12-23] MEDS: INSULIN NPH 100 UNIT/ML 6 UNIT SUBCUT (20:57)
[2024-12-23 21:01] VITALS: BP 130/86; PULSE 83
[2024-12-23 22:12] VITALS: BP 123/58; PULSE 77
[2024-12-23] MEDS: QUETIAPINE 100 MG TABLET 300 MG PO (22:13)
[2024-12-23] MEDS: INSULIN ASPART 100 UNIT/ML SUBCUT (23:07)
[2024-12-23 23:23] VITALS: BP 118/66; PULSE 85
[2024-12-24] VITALS (32 sets, daily range): BP systolic 107–138; BP diastolic 53–88; PULSE 64–84; RESP 16–18; TEMP 36.6–36.8; O2SAT 93–99
[2024-12-24] MEDS: INSULIN NPH 100 UNIT/ML SUBCUT (08:39)
[2024-12-24] MEDS: METOPROLOL SUCCINATE (XL) 50 MG TAB PO ×2 (09:51→22:43)
--- NOTE | 2024-12-24 13:19 | PM.OBPNL ---
Subjective Time Seen by Provider: 12:30 Date Seen: 12/24/24 Narrative: s/p 4 doses of misoprostol. Cat I strip. Irregular contractions Q2-5 minutes. Patient comfortable Objective Vital Signs: Last Vital Signs Temp 98.1 F 12/24/24 12:44 Pulse 73 12/24/24 12:45 Resp 16 12/24/24 05:09 BP 134/77 12/24/24 12:45 Pulse Ox 97 12/24/24 06:20 Pelvic Exam Dilation (cm): 0.5 Effacement (%): 25 Station: -3 Comments: Cervix is long with funneling. Plan Plan: - Will administer last dose of misoprostol - Anticipate cook cath after
[2024-12-24] MEDS: INSULIN ASPART 100 UNIT/ML SUBCUT (15:32)
[2024-12-24] MEDS: QUETIAPINE 100 MG TABLET 300 MG PO (22:43)
[2024-12-24] MEDS: INSULIN NPH 100 UNIT/ML 6 UNIT SUBCUT (22:45)
[2024-12-24] MEDS: LACTATED RINGERS 1000 ML 1,000 ML IV (23:00)
[2024-12-24] MEDS: ONDANSETRON 2 MG/ML inj 4 MG IV (23:12)
[2024-12-24] MEDS: LIDOCAINE 2% (PF) 5 ML VIAL EPIDURAL (23:47)
[2024-12-24] MEDS: ROPIVACAINE 0.2% 100 ml 100 ML 12 MG EPIDURAL (23:47)
--- NOTE | 2024-12-24 23:59 | PM.ANBPRC ---
PFSH PFS Medical History Soft tissue infection ?L08.9 - Local infection of the skin and subcutaneous tissue, unspecified (ICD-10) Infertility Surgical History History of colposcopy ?Z98.890 - Other specified postprocedural states (ICD-10) Social History What is your current living situation?: I presently have a place to live Problems where you live: no known problems In the past 12 months, utilities in danger of being shut off: no In past 12 months, lack of transportation kept you from medical appts, meetings, work, or getting things needed for daily living: no In the past 12 mos, have been you worried that your food would run out before you had money to buy more?: never true In the past 12 mos, the food you bought just didn't last and you didn't have money to buy more?: never true Smoking Status: Never smoker How often do you have a drink containing alcohol: never AUDIT-C Alcohol total score: 0 How often does anyone, including family, friends and others, physically hurt you: never How often does anyone, including family, friends and others, insult or talk down to you: never How often does anyone, including family, friends and others, threaten you with harm: never How often does anyone, including family, friends and others, scream or curse at you: never Meds Home Medications and Allergies Home Medications ?Medication ?Instructions ?Recorded ?Confirmed ?Type lamotrigine 150 mg tablet 150 mg PO DAILY 06/02/24 12/23/24 History metoprolol succinate 50 mg 50 mg PO BID 06/02/24 12/23/24 History tablet,extended release 24 hr quetiapine 300 mg tablet 300 mg PO QPM 06/02/24 12/23/24 History docosahexaenoic acid 200 mg 200 mg PO DAILY 06/11/24 12/23/24 History capsule ( DHA) aspirin 81 mg tablet,delayed 81 mg PO QDAY 07/09/24 12/23/24 History release (Adult Aspirin Regimen) folic acid 1 mg tablet 5 mg PO QDAY 07/09/24 12/23/24 History Blood Glucose Meter #1 10/22/24 12/24/24 Rx Test Strips #100 10/22/24 12/24/24 Rx lancets #100 10/22/24 12/24/24 Rx alcohol swabs (Alcohol Pads) 2 pad topical DAILY #100 ea 11/29/24 12/23/24 Rx insulin NPH isoph U-100 human 100 6 - 10 unit (0.06 - 0.1 mL) subcut 11/29/24 12/23/24 Rx unit/mL subcutaneous suspension BID #30 mL (Humulin N NPH U-100 Insulin (isophane susp)) insulin syringe-needle U-100 1 mL #100 11/29/24 12/24/24 Rx 30 gauge x 5/16 (Sure Comfort Insulin Syringe) Allergies Allergy/AdvReac Type Severity Reaction Status Date / Time No Known Drug Allergies Allergy Verified 12/23/24 16:49 Results Labs Labs: Laboratory Results - last 24 hr 12/23/24 18:50 RPR Titer Cancelled RPR Screen Cancelled T.pallidum Ab (TP-PA) Cancelled Vital Signs Vital Signs: Last Vital Signs Temp 98 F 12/24/24 20:40 Pulse 82 12/24/24 23:56 Resp 18 12/24/24 20:40 BP 119/63 12/24/24 23:56 Pulse Ox 97 12/24/24 23:58 Weight: 109.996 kg Height: 167.64 cm Anesthesia Procedures Epidural Insertion Patient Location: OB Start Time: :15 Stop Time: 00:15 Start Date: 12/24/24 Stop Date: 12/24/24 Reason for Block: primary anesthetic Patient Position: sitting Performed By: Ilia Leblanc Preanesthetic Checklist: IV checked, risks and benefits discussed, surgical consent, monitors and equipment checked, pre-op evaluation, timeout performed and anesthesia consent Prep: chlorhexidine gluconate Monitoring: blood pressure monitoring, pricing lead, continuous pulse oximetry and heart rate Approach: midline Vertebral Space: lumbar (1-5) Needle Type: Tuohy needle Injection Technique: continuous catheter Needle gauge: 17 Needle Length (cm): 10 cm Needle Insertion Depth (cm): 6 Catheter Gauge: 19 Catheter Type: multi-orifice Catheter at skin depth (cm): 12 Test Dose Result: negative and lidocaine 1.5% with epinephrine 1 to 200,000 Events: other
[2024-12-25] VITALS (111 sets, daily range): BP systolic 92–139; BP diastolic 51–98; PULSE 60–187; RESP 12–16; TEMP 36.3–37.1; O2SAT 86–100
[2024-12-25] MEDS: LACTATED RINGERS 1000 ML 1,000 ML 125 ML IV (00:08)
[2024-12-25] MEDS: PHENYLEPHRINE 100 MCG/ML SYRINGE IVP ×4 (00:10→04:00)
[2024-12-25] MEDS: OXYTOCIN 30 unit/500 ML in NS 30 UNIT/500 ML BAG IVPB (01:03)
[2024-12-25] MEDS: LIDOCAINE 1 % PF 30 ML INJECTION (06:00)
--- NOTE | 2024-12-25 06:41 | W.PM.OBVAGDE ---
OB Procedure Vag Delivery Mother Details Mother Details: The patient is a 29 year-old, 1, Para 0, admitted on 12/23/24 at 36.6 Days gestation. : 1 Para: 0 Admission Date: 12/23/24 Additional Details Amniotic Membrane Status: SROM Amniotic Membrane Rupture Date: 12/24/24 Amniotic Membrane Rupture Time: 14:08 Amniotic Membrane Fluid Description: Clear and Brown Analgesia/Anesthesia Type: Epidural and Nitrous Oxide Waterbirth: No Pitcoin: Yes (For augmentation of labor and active third stage management ) Intrapartal Events: Labor Augmentation and Labor Induction Induction Method: per misoprostol protocol (5 doses ) Delivery augmentation: pitocin Complete: 05:35 Pushin:40 Heart: heart tones during second stage were Cat I: 125 bmp, moderate variability, +accelerations, -decelerations Delivery Details Delivery Date: 12/25/24 Delivery Time: 05:52 Route of delivery: Infant Gender: Male Viability: Alive; Heart Rate Present Position at Delivery: OA Delivery Details: Delivered via spontaneous vaginal delivery. was placed on maternal abdomen.? Cord was clamped and cut after a 30-60 second delay. Nose and mouth were bulb suctioned.? Infant weight pending. 1 Minute Interval Total Score: 8 5 Minute Interval Total Score: 9 Additional Details Shoulder Dystocia: No Placenta Delivery Time: 05:56 Placental Delivery Description: Spontaneous Delivery repair: Vicryl Procedure Done: Global Blood Loss: 150 Laceration: Perineal - 2nd Degree Episiotomy Description: None Blood Loss Measurement Type: EBL Bakri Used: No Sponge/Need Count Correct: Yes Cord Vessel Description: 3 Vessels and Nuchal Cord (x1, loose and reduced ) Event Summary Status: Mother and were stable after delivery. Disposition: floor
[2024-12-25] MEDS: ACETAMINOPHEN 500 MG TABLET 1000 MG PO (09:33)
[2024-12-25] MEDS: DOCUSATE SODIUM 100 MG CAPSULE PO (09:34)
[2024-12-25] MEDS: METOPROLOL SUCCINATE (XL) 50 MG TAB PO ×2 (09:35→20:56)
[2024-12-25] MEDS: IBUPROFEN 600 MG TABLET PO (20:56)
[2024-12-25] MEDS: QUETIAPINE 100 MG TABLET 300 MG PO (20:57)
[2024-12-26 01:41] VITALS: BP 106/62; PULSE 71; RESP 14; O2SAT 96
[2024-12-26 06:01] LABS: Hemoglobin* 12.2 gm/dL (12.0-16.0)
[2024-12-26 06:30] VITALS: BP 116/74; PULSE 73; RESP 19; TEMP 36.3; O2SAT 98
--- NOTE | 2024-12-26 07:53 | PM.OBPNVD1 ---
OB - PN:Subj Subjective Date Seen: 12/26/24 Narrative: Tali is a 29yo seen on PPD1 from [facility] following IOL for gHTN at 37 weeks. was otherwise complicated by GDMA2, maternal tachycardia (on metoprolol), anxiety/depression (on lamotrigene and seroquel), pyelectasis, obesity. Her delivery was uncomplicated yesterday, second-degree laceration. Patient notes she has been feeling well since delivery. She does endorse some perineal pain, improved with ibuprofen/Tylenol and perineal cares. Pain is overall well controlled. Appetite is appropriate, no nausea or vomiting. lochia is described as small volume. Void spontaneously, has not yet passed flatus. Patient has been up to ambulate, denies dizziness/lightheadedness. No chest pain or dyspnea. Endorses lower extremity edema, no calf erythema or tenderness. She denies unrelenting headache, vision changes or right upper quadrant pain. Candace Jay is doing well, Tali is and has noticed some latch difficulty. The couple is supplementing with Similac for candace Jay. Working with RNs for support, hopeful to meet with tomorrow. OB - PN: Obj Exam Physical Exam: Vital signs: Temp Pulse Resp BP Pulse Ox O2 Del Method 97.4 F L 73 19 116/74 98 Room Air 12/26/24 06:30 12/26/24 06:30 12/26/24 06:30 12/26/24 06:30 12/26/24 06:30 12/26/24 06:30 Narrative: General: Alert and oriented, no acute distress. Seated upright in chair. Psych: Appropriate mood and affect Abdomen: Soft, nondistended. No significant tenderness, no rebound or guarding. Fundus palpates firm at umbilicus. Extremities: Bilateral pitting edema noted. No calf erythema/tenderness. OB - PN: Obj Data Labs Labs: Laboratory Results - last 24 hr 12/23/24 12/26/24 18:50 05:53 Hgb 12.2 RPR Screen Non Reactive OB - PN: A/P Delivery Assessment and Plan (1) Gestational hypertension: Status: Acute (2) GDM, class A2: Status: Acute Plan Tali is a 29yo seen on PPD1 from [facility] following IOL for gHTN at 37 weeks. was otherwise complicated by GDMA2, maternal tachycardia (on metoprolol), anxiety/depression (on lamotrigene and seroquel), pyelectasis, obesity. Her delivery was uncomplicated yesterday, second-degree laceration. Tali is feeling well and progressing through her milestones appropriately. Pain is well controlled, ambulating, tolerating p.o. intake, voiding spontaneously and passing flatus. Recommend continued ramona cares for perineal discomfort. Blood pressures have been entirely within normal limits in the period. She is asymptomatic, no headache, vision changes right upper quadrant pain. AM hemoglobin of 12.2 (from 11.2). Fasting glucose this morning was 91. Patient does not intend to complete her 2 hour glucose tolerance test prior to dismissal tomorrow. She notes she is reliable for follow-up at her 6 week visit, would prefer to do this at that time as she does not want to disturb her PO intake and feeding schedule with baby Pierre. Agree this is reasonable. Encourage patient to continue to work with nurses on support. Recommend visit with tomorrow. Continue combination feeding in the interim. Disposition: Anticipate dismissal to home tomorrow
[2024-12-26 09:00] VITALS: BP 121/80; PULSE 76; RESP 16; TEMP 36.7; O2SAT 97
[2024-12-26] MEDS: DOCUSATE SODIUM 100 MG CAPSULE PO (09:21)
[2024-12-26] MEDS: IBUPROFEN 600 MG TABLET PO ×3 (09:21→23:19)
[2024-12-26] MEDS: METOPROLOL SUCCINATE (XL) 50 MG TAB PO ×3 (09:21→23:19)
[2024-12-26] MEDS: ACETAMINOPHEN 500 MG TABLET 1000 MG PO ×2 (13:30→20:04)
[2024-12-26 16:00] VITALS: BP 132/79; PULSE 67; RESP 16; TEMP 36.7; O2SAT 97
--- NOTE | 2024-12-26 20:10 | PM.ANPOST ---
Post Anesthesia Note Post Anesthesia Note Patient seen: Inpatient Respiratory Status: adequate Cardiovascular Status: adequate Mental Status: baseline Pain: adequate Temp: baseline Anesthetic awareness: N/A Complications: none Follow care: none
[2024-12-26 20:30] VITALS: BP 127/78; PULSE 64; RESP 18; TEMP 36.5; O2SAT 98
[2024-12-26] MEDS: QUETIAPINE 100 MG TABLET 300 MG PO (23:18)
[2024-12-27 01:00] VITALS: BP 111/68; PULSE 77; RESP 20; TEMP 36.6; O2SAT 96
[2024-12-27 03:36] VITALS: BP 109/69; PULSE 68; RESP 16; O2SAT 96
[2024-12-27] MEDS: ACETAMINOPHEN 500 MG TABLET 1000 MG PO (03:40)
[2024-12-27] MEDS: IBUPROFEN 600 MG TABLET PO (06:58)
[2024-12-27] MEDS: DOCUSATE SODIUM 100 MG CAPSULE PO (08:41)
--- NOTE | 2024-12-27 08:41 | P.DS_ITS ---
DS: Providers Provider Time Seen by Provider: 08:30 Date Seen: 12/27/24 Date of admission: 12/23/24 16:23 Primary care physician: Not a Local Provider Admitting Clinician: Sanjana Kee MD Attending Physician on discharge: Rosina Chilel CNM Date of Discharge: 12/27/24 DS: Diagnosis Discharge Diagnosis (1) normal course: Status: Acute (2) Gestational hypertension: Status: Acute (3) GDM, class A2: Status: Acute (4) Tachycardia: Status: Acute (5) Anxiety and depression: Status: Acute Exam Narrative: Exam Narrative: Constitutional: no apparent distress Psychiatric: alert and oriented, calm and cooperative Cardiovascular: heart rate and rhythm regular, blood pressure WNL Respiratory: regular respiratory effort, lung sounds clear to auscultation Abdomen: soft, non-tender. uterine fundus firm 1 fingerbreath below umbilicus, midline. Appropriate for the stage of recovery. PERINEUM:? mild edema of the perineum, no bruising? EXTREMITIES:? full sensation, +2 edema?in BLE Const: Vital Signs, click to edit/add: Vital Signs - 24 hr 12/26/24 09:00 12/26/24 16:00 12/26/24 20:30 Temperature 98.1 F 98.1 F 97.7 F Pulse Rate [Pulse Oximeter] 76 67 64 Respiratory Rate 16 16 18 Blood Pressure [Ri ght Arm] 121/80 132/79 127/78 Pulse Oximetry 97 97 98 Oxygen Delivery Me thod Room Air Room Air Room Air 12/27/24 01:00 12/27/24 03:36 Temperature 98 F Pulse Rate [Pulse Oximeter] 77 68 Respiratory Rate 20 16 Blood Pressure [Ri ght Arm] 111/68 109/69 Pulse Oximetry 96 96 Oxygen Delivery Me thod Room Air Room Air Documenting provider has reviewed patient's vital signs: yes OB - DS: Summary Hospital Course Hospital Course: Nidia is a 29 y.o. G 1 P 1 who was admitted to [facility] for induction of labor for gestational hypertension and GDMA2.?She had a NVD that was uncomplicated. The patient feels well. ?The pain is well controlled with current medications.?She is breast feeding and bottle feeding while baby's blood sugars stabilize. Reports things are going pretty well and requests support which will continue to be given. the patient has done well.? Vitals have been stable.?No elevated blood pressures since . She has remained afebrile.? Has a good appetite, is tolerating a general diet. ?She is voiding without difficulty.? She is passing gas and has not had a bowel movement.? She is ambulating and denies any dizziness.? Has small amount of rubra lochia. She is unsure about prevention. Notes it took them six years to get . Plan: F/u for blood pressure check in 3-5 days. Monitor for s/s pre-eclampsia developing F/U at 2 weeks and 6 weeks Fasting 2 hour GTT at 6 wk PP visit Continue anxiety and depression medications and seek care if symptoms worsen Continue support through [facility] or [facility] ECGEETHA Loyola I, Rosina Chilel, HEEL SHAVER, CNM, was present for visit and have reviewed and agree with documentation by the Certified Nurse Midwifery Student.? Peripartum Data Infant delivery method: Vaginal Laceration description: Perineal - 2nd Degree complications: none Gender: Male Discharge Plan: Home Status at Discharge Functional status at discharge: independent ambulation Overall status at discharge: patient is progressing back to baseline Time Spent with Patient Time attestation: Total time spent providing and/or coordinating discharge services: Time spent: Less than 30 minutes Discharge Plan Discharge Disposition: Home, Self-Care Date of Admission: 12/23/24 16:23 Attending Provider on Discharge: Rosina Chilel Consulting Providers: Val Louise Primary Care Provider: Provider,Not a Local Condition: Stable Anticipated Discharge Date/Time: 12/27/24 11:00 Discharge Medications: New docusate sodium 100 mg Capsule 100 mg PO DAILY Qty: 120 0RF Rx Instructions: Take 1-2 tablets daily as needed for constipation. ibuprofen 600 mg Tablet 600 mg PO Q6H PRNQty: 60 0RF Continued folic acid 1 mg tablet 5 mg PO QDAY DHA 200 mg capsule 200 mg PO DAILY lamotrigine 150 mg tablet 150 mg PO DAILY quetiapine 300 mg tablet 300 mg PO QPM metoprolol succinate 50 mg tablet extended release 24 hr 50 mg PO BID Discontinued aspirin [Adult Aspirin Regimen] 81 mg tablet,delayed release (DR/EC) 81 mg PO QDAY (DME) lancets Misc See Rx Instructions .MEDSUPPLY Qty: 100 3RF Rx Instructions: Test blood sugar 4 times daily. (DME) Test Strips Misc See Rx Instructions .MEDSUPPLY Qty: 100 3RF Rx Instructions: Test blood sugar 4 times daily. (DME) Blood Glucose Meter Misc See Rx Instructions .MEDSUPPLY Qty: 1 0RF Rx Instructions: As directed (DME) insulin syringe-needle U-100 [Sure Comfort Insulin Syringe] 1 mL 30 gauge x 5/16 syringe See Rx Instructions .ROUTE .MEDSUPPLY Qty: 100 3RF Rx Instructions: As directed Humulin N NPH U-100 Insulin 100 unit/mL suspension 6 - 10 unit subcut BID Qty: 30 3RF Rx Instructions: 6 U prebreakfast (eat lunch 4-5 hours after breakfast), 10 U at bedtime alcohol swabs [Alcohol Pads] Pads, Medicated 2 pad topical DAILY Qty: 100 1RF Discharge Orders: Discharge Order (Routine); Ordered 12/27/24 Ordered By: Rosina Chilel Patient Education: OB Vaginal/Bottle Feeding, OB Vaginal/Breast Feeding Additional Instructions: Discharge instructions were reviewed with the patient including signs and symptoms of infection and home going medications Nothing vaginally for 6 weeks: no tampons or intercourse Do not drive while taking narcotic pain medication(s) Off Work or School for 8 weeks Symptoms to report to doctor: * Bleeding that saturates more than one pad per hour * Passing clots larger than the size of a golf ball * Pain not relieved by prescribed medication * Fever above 100.4 degrees Fahrenheit * A foul vaginal odor * Difficulty in emotions, mood, and functions * Thoughts of hurting yourself and/or * Painful, reddened area in your breast * Any drainage, redness, or tenderness in your IV/epidural site * Severe headache that doesn't improve after taking medications * Changes in vision, including temporary loss of vision, blurred vision, and/or light sensitivity * Upper abdominal pain (usually under ribs on the right side) * Decrease in urination or painful, frequent urinating * Chest pain * Shortness of breath * Tenderness or pain with redness and/swelling in the calf(s) of your leg [facility] for a BP check in 3-5 days? Call with BP greater than or equal to 160/110 2-week visit: discuss infant feeding concerns, review control options and screen for anxiety/depression. 6-week visit for an annual exam with 2hr glucose tolerance test. consultation services are available to all mothers and babies for the first year after delivery.? To make an appointment, please call [phone]. Activity Level: Activity as Tolerated Discharge Diet: Regular Follow Up Appointments: [facility] [Provider Group] Provider,Not a Local [Primary Care Provider, Family Practice] Forms: Patient Belongings, MyHealth Info Instructions
[2024-12-27] MEDS: METOPROLOL SUCCINATE (XL) 50 MG TAB PO (08:42)
[2024-12-27 08:59] VITALS: BP 117/72; PULSE 75; RESP 16; TEMP 36.6; O2SAT 97
== END 2024-12-27 13:05 | disposition home or self-care (01) | DRG 807 ==
PROVIDERS: Obstetrics & Gynecology; Admitting Provider Obstetrics & Gynecology; Visit Provider Obstetrics & Gynecology
DX: O24.424 Gestational diabetes mellitus in childbirth, insulin controlled (principal); Z37.0 Single live birth; O13.4 Gestational [pregnancy-induced] hypertension without significant proteinuria, complicating childbirth; O70.1 Second degree perineal laceration during delivery; O99.892 Other specified diseases and conditions complicating childbirth; R00.0 Tachycardia, unspecified; O99.344 Other mental disorders complicating childbirth; F41.9 Anxiety disorder, unspecified; F32.A Depression, unspecified; G47.00 Insomnia, unspecified; Z3A.36 36 weeks gestation of pregnancy
CPT/HCPCS: 01967; 36415; 59200; 82565; 82570; 82962; 84156; 84450; 84460; 84520; 85018; 85025; 85027; 86592; 86850; 86900; 86901; 88307; A9270; J2003; J2270; J2405; J2795; J3010; J7120

== ENCOUNTER 2024-12-31 14:18 | Outpatient (CLI) | payer MEDICAID, SELFPAY ==
--- NOTE | 2024-12-31 17:40 | W.PM.LAC.MC ---
Consult Note - Mom Date of Visit Date of visit: 12/31/24 Reason for consultation: Assistance Needed and with Special Needs Visit Code: Visit Patient's Information Phone number: [phone] : 1 Para: 1 Allergies No Known Drug Allergies Allergy (Verified 12/23/24 16:49) Mother's Medical History: Medical History (Updated 12/28/24 @ 00:01 by Background Daemon) Contusion of left foot ?S90.32XA - Contusion of left foot, initial encounter (ICD-10) ?Z34.90 - Encounter for supervision of normal , unspecified, unspecified trimester (ICD-10) Soft tissue infection ?L08.9 - Local infection of the skin and subcutaneous tissue, unspecified (ICD-10) Infertility Work Plans: off for about 8 months or so Delivery Information Delivery type: Vaginal Gestational Age: 37+1 Gestational Weight For Age: AGA Weight: 2.75 kg Discharge Weight: 2.634 kg Percentage weight loss: 4.3 Baby's Information Baby's Age at Visit: 6 days Baby's Provider or Clinic: [facility] Jaundice: Yes Past Experience Past Experience: No Current Frequency of Day Feedings: every 2-3 hours Frequency of Night Feedings: every 3 hours Both Breasts: Yes (both offered, sometimes just one side) Suck: seems strong Latch: comfortable Length of Time: 15 minutes, 1-2 on 2nd side, gets sleepy Pumping Pumping: Yes Quantity Pumped: 1-2oz if just fed; 3-4 oz if not fed first Supplementing EBM Supplement: Yes (taking 1-2 oz depending on how he fed) Formula Supplement: No Baby Elimination Number of Wet Diapers a Day: ea feeding Number of BM a Day: 5-6/day,yellow Breast/Nipple Condition Breast Information: Breasts are symmetrical with rounded lower quadrants, intramammary distance is less than 1.5 inches. No erythema. Nipples are supple, everted prior to feeding. Breast Shape: Round Engorgement: No Maternal Nipple Condition - Left: Common Nipple Maternal Nipple Condition - Right: Common Nipple Sore Nipples: No Baby Assessment Skin: Yellow (to belly, less than yesterday) Tongue/frenulum: Normal/elastic Palate: Average Lips: Relaxed and Symmetrical Jaw Alignment: Symmetrical Mucosa: [place], moist Onsite Observation Pre-Feed weight: 2.72 kg (up 70 gm from 2 days ago; ) Post-Feed weight: 2.769 kg Milk Transferred (mL): 49 Position: Football Attachment/latch-on achieved: Easily Suck pattern: Suck burst and normal rest Swallow: Audible, consistent Behavior following feed: Alert, fussy (giving hunger cues) Pre-Nursing Left Nipple: Within Normal Limits Pre-Nursing Right Nipple: Within Normal Limits Post-Nursing Left Nipple: Within Normal Limits Post-Nursing Right Nipple: Within Normal Limits Assessments/Interventions Assessments/Interventions: of note: weight yesterday in clinic was 2.821 kg, up 171 gm from the day before. Today's weight is 2.720 (technically a weight loss) but up 70 grams from 2 days ago so question the weight yesterday. Qiana latched well to mom's right breast in football hold. Nursed strongly for 10 minutes then began to get sleepy. Nursed for 2 more minutes on and off Suggested mom switch to her other breast; qiana latched easily to her left side and resume strong nursing; mom did some breast compression near the end and qiana again engaged in stronger feeding. Qiana transferred 34 ml from the first side Transferred 15 ml from the second side 49 ml total Acted a little fussy and took 15 ml mom's EBM and was then content. Education provided: Early feeding cues to maximize timing of latching, Asymmetric latch technique for wide/deep latch to increase milk, Transfer for baby and increase comfort for mom, Supply/demand nature of milk supply, Need for frequent stimulation/milk removal, Alternative feeding methods (SNS, cup, finger feeding, bottling) and Pumping for milk management Feeding Plan: Continue with feeding every 2-3 hours following his cues Offer both breasts ea feeding to increase his intake at the breast; watch for him to slow down with his suckling and switch him over before he's too fatigued Breast compression near the end of the feeding to help him transfer more Offer 15 ml after feedings if he's still hungry, more if he's still hungry. Mom currently pumping after each feeding; discussed pumping one full pump in the morning for storage if desired Other pumps during the day, just what he needs for supplement or a little bit more to prevent an oversupply. Follow-Up Suggested follow up: Appointment as needed (when ready to reassess milk transfer as he nears his actual due date) Recommend baby be seen by provider for:: 2 week [facility] Time Spent Time spent with patient (min): 75 Meds Home Medications and Allergies Home Medications ?Medication ?Instructions ?Recorded ?Confirmed ?Type lamotrigine 150 mg tablet 150 mg PO DAILY 06/02/24 12/23/24 History metoprolol succinate 50 mg 50 mg PO BID 06/02/24 12/23/24 History tablet,extended release 24 hr quetiapine 300 mg tablet 300 mg PO QPM 06/02/24 12/23/24 History docosahexaenoic acid 200 mg 200 mg PO DAILY 06/11/24 12/23/24 History capsule ( DHA) folic acid 1 mg tablet 5 mg PO QDAY 07/09/24 12/23/24 History docusate sodium 100 mg capsule 100 mg PO DAILY #120 caps 12/27/24 Rx ibuprofen 600 mg tablet 600 mg PO Q6H PRN #60 tabs 12/27/24 Rx Allergies Allergy/AdvReac Type Severity Reaction Status Date / Time No Known Drug Allergies Allergy Verified 12/23/24 16:49
== END 2024-12-31 14:19 | disposition home or self-care (01) ==
LOC: OB LAC 14:19
PROVIDERS: Visit Provider Obstetrics & Gynecology
DX: Z39.1 Encounter for care and examination of lactating mother (principal)
CPT/HCPCS: G0463

== ENCOUNTER 2025-02-01 10:58 | Emergency (ER) | payer MEDICAID, SELFPAY ==
[2025-02-01 11:14] VITALS: BP 107/67; PULSE 64; RESP 18; TEMP 36.9; O2SAT 98
--- NOTE | 2025-02-01 11:29 | CRLHL7_ITS ---
For Patients: As a result of the Century Cures Act, medical imaging exams and procedure reports are released immediately into your electronic medical record. You may view this report before your referring provider. If you have questions, please contact your health care provider. INDICATION: bleeding. TECHNIQUE: Ultrasound pelvis transvaginal for better assessment or to better visualize the endometrium. Real-time sonographic images with spectral and color Doppler imaging of the ovaries were obtained. COMPARISON: None. FINDINGS: Uterus: 5 x 5.0 x 6.6 cm. Normal echotexture of the myometrium. No masses. Endometrium: Transvaginal imaging was performed to better evaluate the endometrium. Endometrial thickness measures 7 mm. No sign of endometrial mass or fluid. No foci of hyperemia. Right ovary measures 3.0 x 1.3 x 1.6 cm. Left ovary measures 2.7 x 1.1 x 1.6 cm. No ovarian or adnexal masses. Normal blood flow is demonstrated in both ovaries. Cul-de-sac: No significant free fluid. IMPRESSION: Unremarkable pelvic ultrasound. No evidence for retained products of conception. Dictated by Rico David MD @ 02/01/2025 12:35:36 PM (Electronically Signed)
[2025-02-01 12:33] VITALS: BP 124/82; PULSE 65; RESP 16; O2SAT 98
--- NOTE | 2025-02-01 12:39 | ED.GENADULT ---
HPI - General Adult General Chief complaint: Post OB/Post- Complication Stated complaint: bleeding Time Seen by Provider: 02/01/25 11:10 Related Data Home Medications ?Medication ?Instructions ?Recorded ?Confirmed lamotrigine 150 mg tablet 150 mg PO DAILY 06/02/24 01/11/25 metoprolol succinate 50 mg 50 mg PO BID 06/02/24 01/11/25 tablet,extended release 24 hr docosahexaenoic acid 200 mg 200 mg PO DAILY 06/11/24 01/11/25 capsule ( DHA) escitalopram oxalate 5 mg tablet 5 mg PO QDAY 01/11/25 01/11/25 (Lexapro) quetiapine 100 mg tablet 100 mg PO QDAY 01/11/25 01/11/25 quetiapine 300 mg tablet 100 mg PO QPM 01/11/25 01/11/25 Previous Rx's ?Medication ?Instructions ?Recorded docusate sodium 100 mg capsule 100 mg PO DAILY #120 caps 12/27/24 ibuprofen 600 mg tablet 600 mg PO Q6H PRN #60 tabs 12/27/24 medroxyprogesterone 10 mg tablet 10 mg PO DAILY #10 tabs 02/01/25 (Provera) Allergies Allergy/AdvReac Type Severity Reaction Status Date / Time No Known Drug Allergies Allergy Verified 02/01/25 11:21 [facility] Medical History (Updated 02/01/25 @ 13:23 by Oscar Lemus MD) Contusion of left foot ?S90.32XA - Contusion of left foot, initial encounter (ICD-10) ?Z34.90 - Encounter for supervision of normal , unspecified, unspecified trimester (ICD-10) Soft tissue infection ?L08.9 - Local infection of the skin and subcutaneous tissue, unspecified (ICD-10) Infertility Surgical History History of colposcopy ?Z98.890 - Other specified postprocedural states (ICD-10) Social History What is your current living situation?: I presently have a place to live Problems where you live: no known problems In the past 12 months, utilities in danger of being shut off: no In past 12 months, lack of transportation kept you from medical appts, meetings, work, or getting things needed for daily living: no In the past 12 mos, have been you worried that your food would run out before you had money to buy more?: never true In the past 12 mos, the food you bought just didn't last and you didn't have money to buy more?: never true Smoking Status: Never smoker How often do you have a drink containing alcohol: never AUDIT-C Alcohol total score: 0 How often does anyone, including family, friends and others, physically hurt you: never How often does anyone, including family, friends and others, insult or talk down to you: never How often does anyone, including family, friends and others, threaten you with harm: never How often does anyone, including family, friends and others, scream or curse at you: never Exam Const: Vital Signs, click to edit/add: Vital Signs - 24 hr 02/01/25 11:14 02/01/25 12:33 Temperature 98.4 F Pulse Rate [Pulse Oximeter] 64 65 Respiratory Rate 18 16 Blood Pressure [Ri ght Upper Arm] 107/67 124/82 Pulse Oximetry 98 98 Oxygen Delivery Me thod Room Air Room Air Course Vital Signs Vital signs: Initial Vital Signs Temperature 98.4 F 02/01/25 11:14 Temperature Source Temporal Artery Scan 02/01/25 11:14 Pulse Rate 64 02/01/25 11:14 Pulse Rhythm Regular 02/01/25 11:14 Respiratory Rate 18 02/01/25 11:14 Blood Pressure 107/67 02/01/25 11:14 Blood Pressure Mean 80 02/01/25 11:14 Blood Pressure Position Sitting 02/01/25 11:14 Pulse Oximetry 98 02/01/25 11:14 Oxygen Delivery Method Room Air 02/01/25 11:14 Vital Signs Temperature 98.4 F 02/01/25 11:14 Pulse Rate 64 02/01/25 11:14 Respiratory Rate 18 02/01/25 11:14 Blood Pressure 107/67 02/01/25 11:14 Pulse Oximetry 98 02/01/25 11:14 Oxygen Delivery Method Room Air 02/01/25 11:14 Temperature 98.4 F 02/01/25 11:14 Pulse Rate 65 02/01/25 12:33 Respiratory Rate 16 02/01/25 12:33 Blood Pressure 124/82 02/01/25 12:33 Pulse Oximetry 98 02/01/25 12:33 Oxygen Delivery Method Room Air 02/01/25 12:33 Medical Decision Making MDM Narrative Medical decision making narrative: This patient comes in reporting vaginal bleeding for the past 3 days. She states that she is changing a pad every hour during this time. She does not report any lightheadedness or shortness of breath and does arrive here with normal vital signs. She does not report any pain related to this vaginal bleeding. She is 5 weeks status post vaginal delivery of her child and is currently . Pelvic ultrasound is obtained and shows no abnormalities to explain this bleeding. I did contact the general merchandise salesperson physician on-call who stated that it would be helpful to have a baseline hemoglobin for ongoing follow-up. The patient does have a follow-up 6 week appointment next week which is timely. I did provide a prescription for Provera 10 mg daily for 10 days. Imaging Data US - abdomen: Radiologist's impression: Unremarkable pelvic ultrasound. No evidence for retained products of conception. Discharge Plan Discharge Clinical Impression: Bleeding, uterine, dysfunctional Patient Disposition: Home, Self-Care Condition: Stable Additional Instructions: Take medication as prescribed. A follow-up with OBGYN appointment as scheduled or return if worsening symptoms occur. Prescriptions: New medroxyprogesterone [Provera] 10 mg tablet 10 mg PO DAILY Qty: 10 2RF No Action DHA 200 mg capsule 200 mg PO DAILY quetiapine 100 mg tablet 100 mg PO QDAY escitalopram oxalate [Lexapro] 5 mg tablet 5 mg PO QDAY lamotrigine 150 mg tablet 150 mg PO DAILY metoprolol succinate 50 mg tablet extended release 24 hr 50 mg PO BID quetiapine 300 mg tablet 100 mg PO QPM docusate sodium 100 mg Capsule 100 mg PO DAILY Qty: 120 0RF Rx Instructions: Take 1-2 tablets daily as needed for constipation. ibuprofen 600 mg Tablet 600 mg PO Q6H PRNQty: 60 0RF Follow Up/Referrals: Provider,Not a Local [Primary Care Provider, Family Practice] Stand Alone Forms: MyHealth Info Instructions
--- OUTSIDE RECORDS SUMMARY | 2025-02-01 12:56 | XMS_ITS | Encounter Summary ---
Author Organization [place] Address [address] [place] [address] Care Team Providers Care Elementary Classroom Teacher Name Role Phone Salina Doherty MD Unavailable [phone] Carrillo Ware APRN ECHO TECHNICIAN Unavailable [phone] SolitarioAngelica golden NP Unavailable [phone] Nelson Arroyo PA-C Unavailable [phone] Nelson Arroyo PA-C Primary Care Provider Nelson Arroyo PA-C Unavailable [phone] Pietro Wills MD Unavailable [phone] Tank Bucio MD Unavailable [phone] Encounter Details Date Type Department Care Team (Late st Contact Info) Description 05/04/2020 MyC Medical Advice [address] [address] Galina Blake, RN Social History [...] PM CDT Legal Sex Female 3:44 AM MENTAL HEALTH PROGRAM DIRECTOR Gender Identity Female 10/03/2020 8:33 PM CDT Sexual Orientation Straight 07/01/2018 3: 40 PM MENTAL HEALTH PROGRAM DIRECTOR documented as of this encounter Plan of Treatment Not on file documented as of this encounter Visit Diagnoses Not on filedocumented in this encounter Additional Health Concerns Assessment Noted Time PHQ-9 Depression Total Score: 5 03/03/20 20 7:03 AM CDT documented as of this encounter Care Teams Elementary Classroom Teacher Relationship Specialty Start Date End Date Nelson Arroyo PA-C [address] [place] [address] PCP - General Physician Stone Mill Operator - Medical 08/06/18 Salina Doherty MD Internal Medicine 12/01/14 Carrillo Ware APRN CNP [address] [place] [address] Nurse Practitioner Nurse Practitioner 12/16/14 Angelica Jerez NP [address] [address] Nurse Practitioner Nurse Practitioner - Family 07/12/16 Nelson Arroyo PA-C [address] [address] Assigned PCP 07/05/18 07/29/20 Nelson Arroyo PA-C [address] [address] Assigned PCP 07/30/20 Pietro Wills MD [address] [address] Assigned Heart and Vascular Provider 12/14/22 06/26/24 Tank Bucio MD [address], [address] [address] Physician rn telephone triage 12/01/23 documented as of this encounter
--- OUTSIDE RECORDS SUMMARY | 2025-02-01 12:56 | XMS_ITS | Encounter Summary ---
Author Organization [place] Address [address] [place] [address] Care Team Providers Care Recruiter Specialist Name Role Phone Salina Doherty MD Unavailable Carrillo Ware APRN BUNDLE BREAKER Unavailable SolitarioAngelica golden NP Unavailable [phone] Nelson Arroyo PA-C Primary Care Provider Nelson Arroyo PA-C Unavailable [phone] Pietro Wills MD Unavailable Tank Bucio MD Unavailable [phone] Encounter Details Date Type Department Care Team (Late st Contact Info) Description 08/24/2020 MyC Medical Advice [address] [address] Jocelyn Joyner Social History Tobacco [...] PM CDT Legal Sex Female 3:44 AM FACTORY SUPERINTENDENT Gender Identity Female 10/03/2020 8:33 PM CDT Sexual Orientation Straight 07/01/2018 3: 40 PM FACTORY SUPERINTENDENT documented as of this encounter Plan of Treatment Not on file documented as of this encounter Visit Diagnoses Not on filedocumented in this encounter Additional Health Concerns Assessment Noted Time PHQ-9 Depression Total Score: 6 07/14/19 21 3:35 PM FACTORY SUPERINTENDENT documented as of this encounter Care Teams Recruiter Specialist Relationship Specialty Start Date End Date Nelson Arroyo PA-C [address] [place] [address] PCP - General Physician Direct Mail Clerk - Medical 08/06/18 Salina Doherty MD Internal Medicine 12/01/14 Carrillo Ware APRN BUNDLE BREAKER [address] [place] [address] [id number] Nurse Practitioner Nurse Practitioner 12/16/14 Angelica Jerez NP [facility] [address] [place], [place] [id number] Nurse Practitioner Nurse Practitioner - Family 07/12/16 Nelson Arroyo PA-C [address] [place] [address] Assigned PCP 07/30/20 Pietro Wills MD [address] [place] 488555 Assigned Heart and Vascular Provider 12/14/22 06/26/24 Tank Bucio MD [address], [address] 438567 Physician sql server dba 12/01/23 documented as of this encounter
--- OUTSIDE RECORDS SUMMARY | 2025-02-01 12:56 | XMS_ITS | Encounter Summary ---
Author Organization [facility] Address [address] [place] [address]. [place] [address] Care Team Providers Care Warehouse Technician Name Role Phone Salina Doherty MD Unavailable [phone] Carrillo Ware APRN FIRST CRUSHER Unavailable [phone] SolitarioAngelica golden NP Unavailable [phone] Nelson Arroyo PA-C Unavailable Nelson Arroyo PA-C Primary Care Provider Chinyere Barbour Unavailable Unavailable Nelson Arroyo PA-C Unavailable Pietro Wills MD Unavailable Tank Bucio MD Unavailable [phone] Reason for Visit * Reason Comments Medication Refill Encounter Details Date Type Department Care Team (Late st Contact Info) Description 11/27/[address], [address] [place] [address] Nelson Arroyo PA-C [address] [place] [address] Medication Refill Social History Tobacco [...] CDT Legal Sex Female 3:44 AM SENIOR WEALTH ADVISOR Gender Identity Female 10/03/2020 8:33 PM CDT Sexual Orientation Straight 07/01/2018 3: 40 PM SENIOR WEALTH ADVISOR documented as of this encounter Miscellaneous Notes * Telephone Encounter - Trang Lozano RN - 11/29/2019 10:57 AM CDT Prescription approved per [facility] Refill Protocol. Trang Lozano RN documented in this encounter Plan of Treatment Not on file documented as of this encounter Visit Diagnoses Diagnosis Palpitations Sinus tachycardia Other specified cardiac dysrhythmias Generalized anxiety disorder documented in this encounter Additional Health Concerns Assessment Noted Time PHQ-9 Depression Total Score: 7 09/29/19 20 7:04 AM CDT documented as of this encounter Care Teams Warehouse Technician Relationship Specialty Start Date End Date Nelson Arroyo PA-C [address] [place] [address] PCP - General Physician Historic Site Administrator - Medical 08/06/18 Salina Doherty MD Internal Medicine 12/01/14 Carrillo Ware APRN FIRST CRUSHER [address] [place] [address] 038325 Nurse Practitioner Nurse Practitioner 12/16/14 Angelica Jerez NP [place] [address] [place], [place] 3004[address] Nurse Practitioner Nurse Practitioner - Family 07/12/16 Nelson Arroyo PA-C [address], [place] [address] Assigned PCP 07/05/18 07/29/20 Chinyere Barbour Personal Advocate & Liaison (PAL) 01/31/20 04/26/20 Nelson Arroyo PA-C [address] [address] Assigned PCP 07/30/20 Pietro Wills MD [address] [place] [address] Assigned Heart and Vascular Provider 12/14/22 06/26/24 Tank Bucio MD [address], [address] [address] Physician electrical appliance preparer 12/01/23 documented as of this encounter
--- OUTSIDE RECORDS SUMMARY | 2025-02-01 12:56 | XMS_ITS | Encounter Summary ---
Author Organization [facility] Address [address] [place] [address] Care Team Providers Care Mission Assessment Specialist Name Role Phone Salina Doherty MD Unavailable [phone] Carrillo Ware APRN SAP MOBILITY ARCHITECT Unavailable SolitarioAngelica golden NP Unavailable [phone] Nelson Arroyo PA-C Primary Care Provider Nelson Arroyo PA-C Unavailable [phone] Pietro Wills MD Unavailable [phone] Tank Bucio MD Unavailable [phone] Encounter Details Date Type Department Care Team (Late st Contact Info) Description 09/22/2020 MyC Medical Advice [address] [address] Jasvir Mejia Social History Tobacco [...] PM CDT Legal Sex Female 3:44 AM CHILD LIFE ASSISTANT Gender Identity Female 10/03/2020 8:33 PM CDT Sexual Orientation Straight 07/01/2018 3: 40 PM CHILD LIFE ASSISTANT documented as of this encounter Plan of Treatment Not on file documented as of this encounter Visit Diagnoses Not on filedocumented in this encounter Additional Health Concerns Assessment Noted Time PHQ-9 Depression Total Score: 6 07/14/19 21 3:35 PM CHILD LIFE ASSISTANT documented as of this encounter Care Teams Mission Assessment Specialist Relationship Specialty Start Date End Date Nelson Arroyo PA-C [address] [place] [address] PCP - General Physician Objective C Developer - Medical 08/06/18 Salina Doherty MD Internal Medicine 12/01/14 Carrillo Ware APRN SAP MOBILITY ARCHITECT [address] [place] [address] 479[address] Nurse Practitioner Nurse Practitioner 12/16/[address] [facility] [address] [place], [place] 67[address] Nurse Practitioner Nurse Practitioner - Family 07/12/16 Nelson Arroyo PA-C [address] [place] [address] Assigned PCP 07/30/20 Pietro Wills MD [address] [place] 572365 Assigned Heart and Vascular Provider 12/14/22 06/26/24 Tank Bucio MD [address] 252077 Physician yeast distiller 12/01/23 documented as of this encounter
--- OUTSIDE RECORDS SUMMARY | 2025-02-01 12:56 | XMS_ITS | Encounter Summary ---
Author Organization [place] Address [address] [place] [address]. [place] [address] Care Team Providers Care Commercial Sales Specialist Name Role Phone Salina Doherty MD Unavailable [phone] Carrillo Ware APRN ASSISTANT LIBRARIAN Unavailable [phone] SolitarioAngelica golden NP Unavailable [phone] Nelson Arroyo PA-C Unavailable Nelson Arroyo PA-C Primary Care Provider Chinyere Barbour Unavailable Unavailable Nelson Arroyo PA-C Unavailable Pietro Wills MD Unavailable Tank Bucio MD Unavailable Reason for Visit * Reason Onset Date Comments MyChart Communication 12/22/2019 Allergic r eaction Encounter Details Date Type Department Care Team (Late st Contact Info) Description 12/22/2019 MyC Medical Advice [facility] [address] [facility], [address] [place] [address] Nelson Arroyo PA-C [address] [place] [address] MyChart Communication (Allergic reaction) 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 Sex Female 3:44 AM 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 GOODS 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 Gender Identity Female 10/03/2020 8:33 PM CDT Sexual Orientation Straight 07/01/2018 3: 40 PM RUBBER GOODS FINISHER documented as of this encounter Miscellaneous Notes * Telephone Encounter - Mello Ramires RN - 12/24/2019 9:19 AM CDT Patient read [employer] message 12/22 12PM, left voicemail for patient to return call Mello Ramires RN * Telephone Encounter - Mello Ramires RN - 12/23/2019 8:10 AM CDT Called patient and left voicemail to return call, also sent [employer] message to call, see [employer] message and triage regarding allergic reaction Mello Ramires RN documented in this encounter Plan of Treatment Not on file documented as of this encounter Visit Diagnoses Not on filedocumented in this encounter Additional Health Concerns Assessment Noted Time PHQ-9 Depression Total Score: 7 09/29/19 20 7:04 AM CDT documented as of this encounter Care Teams Commercial Sales Specialist Relationship Specialty Start Date End Date Nelson Arroyo PA-C [address] [place] [address] PCP - General Physician Form Setter/Driver - Medical 08/06/18 Salina Doherty MD Internal Medicine 12/01/14 Carrillo Ware APRN ASSISTANT LIBRARIAN [address] [place] [address] Nurse Practitioner Nurse Practitioner 12/16/14 Angelica Jerez NP [facility] [address] [place] [address] Nurse Practitioner Nurse Practitioner - Family 07/12/16 Nelson Arroyo PA-C [address] [place] [address] Assigned PCP 07/05/18 07/29/20 Chinyere Barbour Personal Advocate & Liaison (PAL) 01/31/20 04/26/20 Nelson Arroyo PA-C [address] [place] [address] Assigned PCP 07/30/20 Pietro Wills MD [address] [place] [address] Assigned Heart and Vascular Provider 12/14/22 06/26/24 Tank Bucio MD [address] [facility] [address] [place] [address] Physician non licensed operator 12/01/23 documented as of this encounter
--- OUTSIDE RECORDS SUMMARY | 2025-02-01 12:56 | XMS_ITS | Encounter Summary ---
Author Organization [facility] Address [address] [place] [address]. [place] [address] Care Team Providers Care Global Account Director Name Role Phone Salina Doherty MD Unavailable [phone] Carrillo Ware APRN WOODEN TANK ERECTOR Unavailable SolitarioAngelica golden NP Unavailable [phone] Nelson Arroyo PA-C Unavailable [phone] Nelson Arroyo PA-C Primary Care Provider Chinyere Barbour Unavailable Unavailable Nelson Arroyo PA-C Unavailable Pietro Wills MD Unavailable Tank Bucio MD Unavailable Reason for Visit * Reason Comments Medication Refill Encounter Details Date Type Department Care Team (Late st Contact Info) Description 12/12/[address], [address] [place] [address] Concepción Gonzalez APRN WOODEN TANK ERECTOR [address] [place] [address] Medication Refill 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 Sex Female 3:44 AM MARKETING AND PROMOTIONS MANAGER Gender Identity Female 10/03/2020 8:33 PM CDT Sexual Orientation Straight 07/01/2018 3: 40 PM MARKETING AND PROMOTIONS MANAGER documented as of this encounter Plan of Treatment Not on file documented as of this encounter Visit Diagnoses Diagnosis Persistent insomnia Persistent disorder of initiating or maintaining sleep documented in this encounter Additional Health Concerns Assessment Noted Time PHQ-9 Depression Total Score: 7 09/29/19 20 7:04 AM CDT documented as of this encounter Care Teams Global Account Director Relationship Specialty Start Date End Date Nelson Arroyo PA-C [address] [place] [address] PCP - General Physician House Wrecker - Medical 08/06/18 Salina Doherty MD Internal Medicine 12/01/14 Carrillo Ware APRN WOODEN TANK ERECTOR [address] [place] [address] Nurse Practitioner Nurse Practitioner 12/16/14 Angelica Jerez NP [place] [address] [place] [address] Nurse Practitioner Nurse Practitioner - Family 07/12/16 Nelson Arroyo PA-C [address] [place] [address] Assigned PCP 07/05/18 07/29/20 Chinyere Barbour Personal Advocate & Liaison (PAL) 01/31/20 04/26/20 Nelson Arroyo PA-C [address] [place] [address] Assigned PCP 07/30/20 Pietro Wills MD [address] [place] [address] Assigned Heart and Vascular Provider 12/14/22 06/26/24 Tank Bucio MD [address] [facility] [address] [place] [address] Physician whiteprinting machine operator 12/01/23 documented as of this encounter
--- OUTSIDE RECORDS SUMMARY | 2025-02-01 12:56 | XMS_ITS | Encounter Summary ---
Author Organization [place] Address [address] [place] [address]. [place] [address] Care Team Providers Care Process Steward Name Role Phone Salina Doherty MD Unavailable [phone] Carrillo Ware APRN STOCKBROKING DEALER Unavailable SolitarioAngelica golden NP Unavailable [phone] Nelson Arroyo PA-C Primary Care Provider Nelson Arroyo PA-C Unavailable [phone] Tank Bucio MD Unavailable [phone] Reason for Visit * Reason Comments Medication Refill Encounter Details Date Type Department Care Team (Late st Contact Info) Description 07/28/2024 Refill [facility] [address] [place] [address] Nelson Arroyo PA-C [address] [place] [address] Medication Refill Social History Tobacco [...] re latives? Once a week 11/24/2023 Attends Rastafari Services Not on file 11/23 Active Member of Clubs or Organizations Not on f ile 11/24/2023 Attends Club or Organization Meetings Not on asia e 11/24/2023 Marital Status Not on file 11/24/2023 PHQ-2 Answer Date Recorded PHQ-2 Total Score (Adult) - Positive if 3 or more points; Administer PHQ-9 if positive 0 06/22/2024 [facility] - Occupational [...] CDT Legal Sex Female 3:44 AM MANAGER MULTIMEDIA Gender Identity Female 10/03/2020 8:33 PM CDT Sexual Orientation Straight 07/01/2018 3: 40 PM MANAGER MULTIMEDIA documented as of this encounter Plan of Treatment Not on file documented as of this encounter Visit Diagnoses Diagnosis Elevated blood pressure reading without diagnosis of hypertension documented in this encounter Additional Health Concerns Assessment Noted Time PHQ-9 Depression Total Score: 7 10/03/19 25 9:19 AM CDT documented as of this encounter Care Teams Process Steward Relationship Specialty Start Date End Date Nelson Arroyo PA-C [address] [place] [address] PCP - General Physician Video Game Maker - Medical 08/06/18 Salina Doherty MD Internal Medicine 12/01/14 Carrillo Ware APRN STOCKBROKING DEALER [address] [place] [address] Nurse Practitioner Nurse Practitioner 12/16/14 Angelica Jerez NP [address] [address] Nurse Practitioner Nurse Practitioner - Family 07/12/16 Nelson Arroyo PA-C [address] [place] [address] Assigned PCP 07/30/20 Tank Bucio MD [address], [facility] [address] [place] [address] Physician warehouse pricing and inventory clerk 12/01/23 documented as of this encounter
--- OUTSIDE RECORDS SUMMARY | 2025-02-01 12:56 | XMS_ITS | Encounter Summary ---
Author Organization [facility] Address [address] [place] [address]. [place] [address] Care Team Providers Care Consumer Science Teacher Name Role Phone Salina Doherty MD Unavailable Carrillo Ware APRN SALES INSPECTOR Unavailable SolitarioAngelica golden NP Unavailable Nelson Arroyo PA-C Primary Care Provider [phone] Nelson Arroyo PA-C Unavailable [phone] Pietro Wills MD Unavailable [phone] Tank Bucio MD Unavailable [phone] Reason for Visit * Reason Onset Date Comments Refill Request 10/08/2020 Encounter Details Date Type Department Care Team (Late st Contact Info) Description 10/08/2020 MyC Refill [facility] [address] [place] [address] Nelson Arroyo PA-C [address] [place] [address] Refill Request Social History Tobacco [...] PM CDT Legal Sex Female 3:44 AM MATERIAL FLOW ANALYST Gender Identity Female 10/03/2020 8:33 PM CDT Sexual Orientation Straight 07/01/2018 3: 40 PM MATERIAL FLOW ANALYST documented as of this encounter Miscellaneous [...] Total Score: 6 07/14/19 21 3:35 PM MATERIAL FLOW ANALYST documented as of this encounter Care Teams Consumer Science Teacher Relationship Specialty Start Date End Date Nelson Arroyo PA-C [address] [place] [address] PCP - General Physician Bench Assembler - Medical 08/06/18 Salina Doherty MD Internal Medicine 12/01/14 Carrillo Ware APRN SALES INSPECTOR [address] [place] [address]395 Nurse Practitioner Nurse Practitioner 12/16/14 Angelica Jerez NP [place] [address] [place], [place] 529557 Nurse Practitioner Nurse Practitioner - Family 07/12/16 Nelson Arroyo PA-C [address] [address] [place] [address] Assigned PCP 07/30/20 Pietro Wills MD [address] [place] [address] Assigned Heart and Vascular Provider 12/14/22 06/26/24 Tank Bucio MD [address], [facility] 100 [place] [address] Physician manager quality 12/01/23 documented as of this encounter
--- OUTSIDE RECORDS SUMMARY | 2025-02-01 12:56 | XMS_ITS | Encounter Summary ---
Author Organization [facility] Address [address] [place] [address]. [place] [address] Care Team Providers Care Change Of Address Clerk Name Role Phone Salina Doherty MD Unavailable [phone] Carrillo Ware APRN SPECIAL SHOPPER Unavailable SolitarioAngelica golden NP Unavailable [phone] Nelson Arroyo PA-C Unavailable Nelson Arroyo PA-C Primary Care Provider Nelson Arroyo PA-C Unavailable Pietro Wills MD Unavailable [phone] Tank Bucio MD Unavailable Reason for Visit * Reason Comments Medication Refill Encounter Details Date Type Department Care Team (Late st Contact Info) Description [address], [address] [place] [address] Nelson Arroyo PA-C [address] [place] [address] Medication Refill Social History Tobacco [...] PM CDT Legal Sex Female 3:44 AM BROADCAST FIELD SUPERVISOR Gender Identity Female 10/03/2020 8:33 PM CDT Sexual Orientation Straight 07/01/2018 3: 40 PM BROADCAST FIELD SUPERVISOR documented as of this encounter Miscellaneous Notes * Telephone Encounter - Nelson Arroyo PA-C - 06/18/2020 10:21 AM BROADCAST FIELD SUPERVISOR Yes- she is my patient. I assume she will continue with me unless she says otherwise? Nelson DCAST FIELD SUPERVISOR * Telephone Encounter - Tammi Ozuna RN - 06/14/2020 2:50 PM CST Discussed with LG, wonders if PCP would refill, pt not changing PCP, saw if providers absence, please confirm, route to LG if needed Tammi Ozuna RN, BSN Message handled by CLINIC NURSE. DCAST FIELD SUPERVISOR * Telephone Encounter - Tammi Ozuna RN - 06/14/2020 2:42 PM CST Routing refill request to provider for review/approval because: New for LG Tammi Ozuna RN, BSN Message handled by CLINIC NURSE. DCAST FIELD SUPERVISOR * Telephone Encounter - Carmen Lynn RN - 06/14/2020 11:45 AM BROADCAST FIELD SUPERVISOR Forwarding to [place]. Saw Valentina FRANCOIS 02/25/20 for PHYSICAL Carmen Turcios RN DCAST FIELD SUPERVISOR documented in this encounter Plan of Treatment Not on file documented as of this encounter Visit Diagnoses Diagnosis Palpitations Sinus tachycardia Other specified cardiac dysrhythmias Acne, unspecified acne type documented in this encounter Additional Health Concerns Assessment Noted Time PHQ-9 Depression Total Score: 5 03/03/20 20 7:03 AM CDT documented as of this encounter Care Teams Change Of Address Clerk Relationship Specialty Start Date End Date Nelson Arroyo PA-C [address] [place] [address] PCP - General Physician Dye Winch Operator - Medical 08/06/18 Salina Doherty MD Internal Medicine 12/01/14 Carrillo Ware APRN CNP [address] [place] [address] Nurse Practitioner Nurse Practitioner 12/16/14 Angelica Jerez NP [address] 841477 Nurse Practitioner Nurse Practitioner - Family 07/12/16 Nelson Arroyo PA-C [address] [place] [address] Assigned PCP 07/05/18 07/29/20 Nelson Arroyo PA-C [address] [address] [place] [address] Assigned PCP 07/30/20 Pietro Wills MD [address] [place] [address] Assigned Heart and Vascular Provider 12/14/22 06/26/24 Tank Bucio MD [address], [facility] 100 [place] [address] Physician ventilating expert 12/01/23 documented as of this encounter
--- OUTSIDE RECORDS SUMMARY | 2025-02-01 12:56 | XMS_ITS | Encounter Summary ---
Author Organization [facility] Address [address] [place] [address]. [place] [address] Care Team Providers Care Protective Signal Operations Supervisor Name Role Phone Salina Doherty MD Unavailable [phone] Carrillo Ware APRN FIGURE SKATER Unavailable SolitarioAngelica golden NP Unavailable [phone] Nelson Arroyo PA-C Primary Care Provider Nelson Arroyo PA-C Unavailable [phone] Pietro Wills MD Unavailable Tank Bucio MD Unavailable Reason for Visit * Reason Comments Medication Refill Encounter Details Date Type Department Care Team (Late st Contact Info) Description 08/07/[address], [address] [place] [address] Nelson Arroyo PA-C [address] [place] [address] Medication Refill Social History Tobacco [...] CDT Legal Sex Female 3:44 AM CORN SHELLER Gender Identity Female 10/03/2020 8:33 PM CDT Sexual Orientation Straight 07/01/2018 3: 40 PM CORN SHELLER COVID-19 Exposure Response Date Recorded In the last month, have you been in contact with someone who was confirmed or suspected to have Coronavirus / COVID-19? No / Unsure 07/13/2020 1:58 PM CORN SHELLER documented as of this encounter Miscellaneous Notes * Telephone Encounter - Minda Vergara RN - 08/08/2020 5:14 PM CDT Prescription approved per [facility] [place]. Minda Vergara RN on 08/08/2020 at 5:14 PM documented in this encounter Plan of Treatment Not on file documented as of this encounter Visit Diagnoses Diagnosis Acne, unspecified acne type documented in this encounter Additional Health Concerns Assessment Noted Time PHQ-9 Depression Total Score: 6 07/14/19 21 3:35 PM CORN SHELLER documented as of this encounter Care Teams Protective Signal Operations Supervisor Relationship Specialty Start Date End Date Nelson Arroyo PA-C [address] [place] [address] PCP - General Physician Plumber Maintenance - Medical 08/06/18 Salina Doherty MD Internal Medicine 12/01/14 Carrillo Ware APRN FIGURE SKATER [address] [place] [address] Nurse Practitioner Nurse Practitioner 12/16/14 Angelica Jerez NP [address] [address] Nurse Practitioner Nurse Practitioner - Family 07/12/16 Nelson Arroyo PA-C [address] [place] [address] Assigned PCP 07/30/20 Pietro Wills MD [address] [place] [address] Assigned Heart and Vascular Provider 12/14/22 06/26/24 Tank Bucio MD [address], [address] [address] Physician mill recorder 12/01/23 documented as of this encounter
--- OUTSIDE RECORDS SUMMARY | 2025-02-01 12:56 | XMS_ITS | Encounter Summary ---
Author Organization [facility] Address [address] [place] [address]. [place] [address] Care Team Providers Care Pneumatic Tube Fitter Name Role Phone Salina Doherty MD Unavailable [phone] Carrillo Ware APRN SPACE BUYER Unavailable SolitarioAngelica golden NP Unavailable [phone] Nelson Arroyo PA-C Primary Care Provider Nelson Arroyo PA-C Unavailable [phone] Tank Bucio MD Unavailable [phone] Reason for Visit * Reason Onset Date Comments Refill Request 07/28/2024 Encounter Details Date Type Department Care Team (Late st Contact Info) Description 07/28/2024 MyC Refill [facility] [address] [place] [address] Nelson Arroyo PA-C [address] [place] [address] Refill Request Social History Tobacco [...] points; Administer PHQ-9 if positive 0 06/22/2024 [facility] - Occupational [...] PM CDT Legal Sex Female 3:44 AM SMASH HAND Gender Identity Female 10/03/2020 8:33 PM CDT Sexual Orientation Straight 07/01/2018 3: 40 PM SMASH HAND documented as of this encounter Miscellaneous Notes * Telephone Encounter - Nicole Hatch RN - 07/29/2024 4:03 PM CDT Called pt and relayed message below. Pt will call OB clinic for LEIDA process since she has to sign it. Pt will update us and let us know when it was sent or if anything further is needed from us. FLORIDA Wasserman, RN [facility] 07/29/2024 at 4:08 PM * Telephone Encounter - Nelson Arroyo PA-C - 07/29/2024 3:43 PM CDT Oh dear. I talked to the STRIPING MACHINE OPERATOR on the phone who is her OB> I thought she was making the final decision but never heard anything back. This is difficult as we don't have good communication electronically with the [facility]. I guess I left the [...] - 07/29/2024 12:52 PM CDT Called pt, typewriter ribbon winder requesting clarification. Pt states she is still [...] discuss further with OB. FLOR[place] Wasserman, RN [facility] 07/29/2024 at 1:04 PM * Telephone Encounter [...] documented as of this encounter Care Teams Pneumatic Tube Fitter Relationship Specialty Start Date End Date Nelson Arroyo PA-C [address] [place] [address] PCP - General Physician Security Sergeant - Medical 08/06/18 Salina Doherty MD Internal Medicine 12/01/14 Carrillo Ware APRN SPACE BUYER [address] [place] [address] Nurse Practitioner Nurse Practitioner 12/16/14 Angelica Jerez NP [facility] [address] [place] [address] Nurse Practitioner Nurse Practitioner - Family 07/12/16 Nelson Arroyo PA-C [address] [place] [address] Assigned PCP 07/30/20 Tank Bucio MD [address] [address] Physician automatic mounter 12/01/23 documented as of this encounter
--- OUTSIDE RECORDS SUMMARY | 2025-02-01 12:57 | XMS_ITS | Encounter Summary ---
Author Organization [facility] Address [address] [place] [address]. [place] [address] Care Team Providers Care Community Advocate Name Role Phone Salina Doherty MD Unavailable [phone] Carrillo Ware APRN BARN AND PROPERTY MANAGER Unavailable SolitarioAngelica golden NP Unavailable [phone] Nelson Arroyo PA-C Unavailable [phone] Nelson Arroyo PA-C Primary Care Provider Chinyere Barbour Unavailable Unavailable Nelson Arroyo PA-C Unavailable [phone] Pietro Wills MD Unavailable Tank Bucio MD Unavailable Reason for Visit * Reason Onset Date Comments Refill Request 01/18/2020 Encounter Details Date Type Department Care Team (Late st Contact Info) Description 01/18/2020 MyC [facility] [address] [facility], [address] [place] [address] Nelson Arroyo PA-C [address] [place] [address] Refill Request Social History Tobacco [...] CDT Legal Sex Female 3:44 AM RETAIL RECEIVING CLERK Gender Identity Female 10/03/2020 8:33 PM CDT Sexual Orientation Straight 07/01/2018 3: 40 PM RETAIL RECEIVING CLERK documented as of this encounter Miscellaneous Notes * Telephone Encounter - Nancy Santiago CMA - 01/24/2020 11:50 AM CDT Left message for patient to call back. Nancy Santiago CMA * Telephone Encounter - Blanca Baker - 01/21/2020 10:23 AM CDT Left message for patient to return call Needs appt Blanca Baker/ Photographic Hand Developer * Telephone Encounter - Jahaira Ya CMA [...] the [facility] refill protocol Susanne Zacarias RN [facility] -- Triage Nurse documented in this encounter Plan of Treatment Not on file documented as of this encounter 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), predominantly inattentive type documented in this encounter Additional Health Concerns Assessment Noted Time PHQ-9 Depression Total Score: 7 09/29/19 20 7:04 AM CDT documented as of this encounter Care Teams Community Advocate Relationship Specialty Start Date End Date Nelson Arroyo PA-C [address] [address] PCP - General Physician Community Relations Liaison - Medical 08/06/18 Salina Doherty MD Internal Medicine 12/01/14 Carrillo Ware APRN BARN AND PROPERTY MANAGER [address] [place] [address] Nurse Practitioner Nurse Practitioner 12/16/14 Angelica Jerez NP [address] [address] Nurse Practitioner Nurse Practitioner - Family 07/12/16 Nelson Arroyo PA-C [address] [address] Assigned PCP 07/05/18 07/29/20 Chinyere Barbour Personal Advocate & Liaison (PAL) 01/31/20 04/26/20 Nelson Arroyo PA-C [address] [address] Assigned PCP 07/30/20 Pietro Wills MD [address] [address] Assigned Heart and Vascular Provider 12/14/22 06/26/24 Tank Bucio MD [address], [facility] 100 [place] [address] Physician analysis analyst 12/01/23 documented as of this encounter
--- OUTSIDE RECORDS SUMMARY | 2025-02-01 12:57 | XMS_ITS | Encounter Summary ---
Author Organization [facility] Address [address] [place] [address]. [place] [address] Care Team Providers Care Log Snaker Name Role Phone Salina Doherty MD Unavailable [phone] Carrillo Ware APRN RECRUITMENT CONSULTANT Unavailable SolitarioAngelica golden NP Unavailable [phone] Nelson Arroyo PA-C Unavailable Nelson Arroyo PA-C Primary Care Provider Chinyere Barbour Unavailable Unavailable Nelson Arroyo PA-C Unavailable Pietro Wills MD Unavailable Tank Bucio MD Unavailable Reason for Visit * Reason Comments Medication Refill Encounter Details Date Type Department Care Team (Late st Contact Info) Description 02/07/[address], [address] [place] [address] Concepción Gonzalez APRN RECRUITMENT CONSULTANT [address] [place] [address] Medication Refill Social History Tobacco [...] PM CDT Legal Sex Female 3:44 AM WEAVER APPRENTICE Gender Identity Female 10/03/2020 8:33 PM CDT Sexual Orientation Straight 07/01/2018 3: 40 PM WEAVER APPRENTICE documented as of this encounter Plan of Treatment Not on file documented as of this encounter Visit Diagnoses Diagnosis Persistent insomnia Persistent disorder of initiating or maintaining sleep documented in this encounter Additional Health Concerns Assessment Noted Time PHQ-9 Depression Total Score: 7 09/29/19 20 7:04 AM CDT documented as of this encounter Care Teams Log Snaker Relationship Specialty Start Date End Date Nelson Arroyo PA-C [address] [place] [address] PCP - General Physician Wallcovering Texturer - Medical 08/06/18 Salina Doherty MD Internal Medicine 12/01/14 Carrillo Ware APRN RECRUITMENT CONSULTANT [address] [place] [address] Nurse Practitioner Nurse Practitioner 12/16/14 Angelica Jerez NP [place] [address] [place] [address] Nurse Practitioner Nurse Practitioner - Family 07/12/16 Nelson Arroyo PA-C [address] [place] [address] Assigned PCP 07/05/18 07/29/20 Chinyere Barbour Personal Advocate & Liaison (PAL) 01/31/20 04/26/20 Nelson Arroyo PA-C [address] [place] [address] Assigned PCP 07/30/20 Pietro Wills MD [address] [place] [address] Assigned Heart and Vascular Provider 12/14/22 06/26/24 Tank Bucio MD [address] [facility] 100 [place] [address] Physician bank representative 12/01/23 documented as of this encounter
--- OUTSIDE RECORDS SUMMARY | 2025-02-01 12:57 | XMS_ITS | Encounter Summary ---
Author Organization [facility] Address [address] [place] [address] Care Team Providers Care Software Quality Automation Engineer Name Role Phone Salina Doherty MD Unavailable [phone] Carrillo Ware APRN DENSITOMETRIST Unavailable Angelica Jerez FORK TRUCK DRIVER Unavailable [phone] Nelson Arroyo PA-C Primary Care Provider Nelson Arroyo PA-C Unavailable [phone] Pietro Wills MD Unavailable [phone] Tank Bucio MD Unavailable [phone] Encounter Details Date Type Department Care Team (Late st Contact Info) Description 06/23/2024 MyC Medical Advice [address] [address] Rianna Spangler Social History Tobacco [...] Administer PHQ-9 if positive 0 06/22/2024 [facility] - Occupational Stress Questionnaire Answer Date Recorded [...] PM CDT Legal Sex Female 3:44 AM FAILURE ANALYSIS TECHNICIAN Gender Identity Female 10/03/2020 8:33 PM CDT Sexual Orientation Straight 07/01/2018 3: 40 PM FAILURE ANALYSIS TECHNICIAN documented as of this encounter Plan of Treatment Not on file documented as of this encounter Visit Diagnoses Not on filedocumented in this encounter Additional Health Concerns Assessment Noted Time PHQ-9 Depression Total Score: 7 10/03/19 25 9:19 AM CDT documented as of this encounter Care Teams Software Quality Automation Engineer Relationship Specialty Start Date End Date Nelson Arroyo PA-C [address] [place] [address] PCP - General Physician Feather Shaper - Medical 08/06/18 Salina Doherty MD Internal Medicine 12/01/14 Carrillo Ware APRN CNP [address] [place] [address] Nurse Practitioner Nurse Practitioner 12/16/14 Angelica Jerez NP [address] 4150[address] Nurse Practitioner Nurse Practitioner - Family 07/12/16 Nelson Arroyo PA-C [address] [place] [address] Assigned PCP 07/30/20 Pietro Wills MD [address] [place] [address] Assigned Heart and Vascular Provider 12/14/22 06/26/24 Tank Bucio MD [address] [facility] 100 [place] [address] Physician replenishment buyer 12/01/23 documented as of this encounter
--- OUTSIDE RECORDS SUMMARY | 2025-02-01 12:57 | XMS_ITS | Encounter Summary ---
Author Organization [facility] Address [address] [place] [address]. [place] [address] Care Team Providers Care Laborer Demolition Name Role Phone Salina Doherty MD Unavailable [phone] Carrillo Ware APRN SPANISHER Unavailable SolitarioAngelica golden NP Unavailable [phone] Nelson Arroyo PA-C Unavailable [phone] Nelson Arroyo PA-C Primary Care Provider Chinyere Barbour Unavailable Unavailable Nelson Arroyo PA-C Unavailable [phone] Pietro Wills MD Unavailable [phone] Tank Bucio MD Unavailable Reason for Visit * Reason Onset Date Comments Refill Request 04/25/2020 Encounter Details Date Type Department Care Team (Late st Contact Info) Description 04/25/2020 MyC Pietro [facility], [address] [place] [address] [place] [address] [place] [address] Refill Request Social History Tobacco [...] PM CDT Legal Sex Female 3:44 AM PASSENGER RELATIONS REPRESENTATIVE Gender Identity Female 10/03/2020 8:33 PM CDT Sexual Orientation Straight 07/01/2018 3: 40 PM PASSENGER RELATIONS REPRESENTATIVE documented as of this encounter Plan [...] as of this encounter Care Teams Laborer Demolition Relationship Specialty Start Date End Date Nelson Arroyo PA-C [address] [place] [address] PCP - General Physician Brick Tender - Medical 08/06/18 Salina Doherty MD Internal Medicine 12/01/14 Carrillo Ware APRN SPANISHER [address] [place] [address]28[address] Nurse Practitioner Nurse Practitioner 12/16/14 Angelica Jerez NP [facility] [address] [place], [place] 89[address] Nurse Practitioner Nurse Practitioner - Family 07/12/16 Nelson Arroyo PA-C [address] [address] Assigned PCP 07/05/18 07/29/20 Chinyere Barbour Personal Advocate & Liaison (PAL) 01/31/20 04/26/20 Nelson Arroyo PA-C [address] [place] [address] Assigned PCP 07/30/20 Pietro Wills MD [address] [place] [address] Assigned Heart and Vascular Provider 12/14/22 06/26/24 Tank Bucio MD [address] [facility] 100 [place] [address] Physician bread packer 12/01/23 documented as of this encounter
--- OUTSIDE RECORDS SUMMARY | 2025-02-01 12:57 | XMS_ITS | Encounter Summary ---
Author Organization [place] Address [address] [place] [address] Care Team Providers Care Fiscal Analyst Name Role Phone Salina Doherty MD Unavailable [phone] Carrillo Ware APRN SUPERINTENDENT SALES Unavailable [phone] Hillary Unger MD Primary Care P rovider [facility] NP Unavailable [phone] Nelson Arroyo PA-C Unavailable Hillary Unger MD Unavailable Hillary Unger MD Unavailable Hillary Unger MD Unavailable Nelson Arroyo PA-C Unavailable [phone] Nelson Arroyo PA-C Primary Care Provider Chinyere Barbour Unavailable Unavailable Nelson Arroyo PA-C Unavailable [phone] Pietro Wills MD Unavailable [phone] Tank Bucio MD Unavailable [phone] Encounter Details Date Type Department Care Team (Late st Contact Info) Description 10/01/2017 [facility] Medical Advice [facility] [address] [place] [address] Solitario Angelica Gautam, SENIOR DESIGN ENGINEER [address] [place] [address] Social History Tobacco Use Types Packs/Day Years [...] CDT Legal Sex Female 3:44 AM CHIEF PSYCHOLOGY Gender Identity Female 10/03/2020 8:33 PM CDT Sexual Orientation Straight 07/01/2018 3: 40 PM CHIEF PSYCHOLOGY documented as of this encounter Plan of Treatment Not on file documented as of this encounter Visit Diagnoses Not on filedocumented in this encounter Additional Health Concerns Assessment Noted Time PHQ-9 Depression Total Score: 6 08/30/19 18 7:34 AM CDT documented as of this encounter Care Teams Fiscal Analyst Relationship Specialty Start Date End Date Hillary Unger MD [address] [place] [address] PCP - General Internal Medicine 08/21/15 08/05/18 Nelson Arroyo PA-C [address] [place] [address] PCP - Assigned PCP 04/12/18 05/02/18 Hillary Unger MD [address] [place] [address] PCP - Assigned PCP 02/01/18 04/11/18 Hillary Unger MD [address] [place] [address] PCP - Assigned PCP 05/03/18 07/07/18 Nelson Arroyo PA-C [address] [place] [address] PCP - General Physician Logistics Loss Prevention Manager - Medical 08/06/18 Salina Doherty MD Internal Medicine 12/01/14 Carrillo Ware APRN SUPERINTENDENT SALES [address] [place] [address] Nurse Practitioner Nurse Practitioner 12/16/14 Angelica Jerez SENIOR DESIGN ENGINEER [facility] [address] [place], [place] 59[address] Nurse Practitioner Nurse Practitioner - Family 07/12/16 Hillary Unger MD [address] [place] [address] Assigned PCP 05/03/18 07/18/18 Nelson Arroyo PA-C [address] [place] [address] Assigned PCP 07/05/18 07/29/20 Chinyere Barbour Personal Advocate & Liaison (PAL) 01/31/20 04/26/20 Nelson Arroyo PA-C [address] [place] [address] Assigned PCP 07/30/20 Pietro Wills MD [address] [place] [address] Assigned Heart and Vascular Provider 12/14/22 06/26/24 Tank Bucio MD [address] [facility] 100 [place] [address] Physician plate take out worker 12/01/23 documented as of this encounter
--- OUTSIDE RECORDS SUMMARY | 2025-02-01 12:57 | XMS_ITS | Clinical Summary ---
Author Organization [place] Address [address] [place] [address] Care Team Providers Care Tool Maintenance Technician Name Role Phone Salina Doherty MD Unavailable [phone] Carrillo Ware APRN OUTBOUND SALES SPECIALIST Unavailable SolitarioAngelica golden NP Unavailable [phone] Nelson Suarez PA-C Primary Care Provider Nelson Suarez PA-C Unavailable [phone] Tank Bucio MD Unavailable [phone] Allergies Active Allergy Reactions Criticality Noted Date [...] MG/0.3ML injection 2-packIndication s:Allergic reaction, initial encounter Inject 0.3 mLs (0.3 mg) into the muscle as needed for anaphylaxis . 2 each 08/18/19 25 Active metoprolol succinate ER (TOPROL XL) 50 MG 24 hr tabletIndication s:Elevated blood pressure reading without diagnosis of hypertension TAKE 1 TABLET BY MOUTH TWICE A DAY 60 tablet 01/28/20 25 Active metoprolol succinate ER (TOPROL XL) 50 MG 24 hr tabletIndication s:Elevated blood pressure reading without diagnosis of hypertension TAKE 1 TABLET BY MOUTH TWICE A DAY 180 tablet 10/28/19 25 025 Discontinued Active Problems Problem Noted Date Diagnosed Date Major depressive disorder, recurrent episode, se liyah 10/29/2021 ASCUS with positive high risk HPV cervical 03/02 Overview (04/09/2023): 03/02/20 ASCUS, +HR HPV, not 16/18. Plan [place] bef 06/02/20 11/14/20 Lost to follow-up for pap tracking 01/31/21 [place] Bx's & ECC - negative ([facility]) 03/31/23 NIL pap, Neg HR HPV Plan cotest in 3 years Sinus tachycardia 07/05/2019 Persistent insomnia 06/30/2019 Palpitations 05/15/2018 Controlled substance agreeme nt signed. TRUCK HEADLIGHT ASSEMBLER check05/13/18, no concerns 08/21/2015 Other specified attention [...] Benzodiazepine use reviewed by psychiatry: No Last [facility] website verification: done on 10.20.18 [email or web address] Major depressive disorder, recurrent episode, mo derate 09/10/2011 ODD (oppositional defiant disorder) 05/24/2011 Syncope 10/04/2010 Estimated Date of Delivery Comme nts Yes 01/14/2025 Resolved Problems Problem Noted Date Diagnosed Date Resolved Date Morbid obesity 08/15/2022 11/24/2023 Adjustment disorder with dis turbance of conduct 09/10/2011 10/04/2016 Cannabis abuse, episodic 05/24/2011 Depression 05/24/2011 01/08/2015 Encounters Date Type Department Care Team Description 01/27/2025 Refill [facility] [place] [address] [facility] [place] [phone] Nelson Suarez PA-C Medication Refill 01/12/2025 MyC Medical Advice [facility] [place] [address] [place] [phone] Kay Zambrano RN 01/12/2025 Refill [facility] [place] [address] [place] [phone] Nelson Suarez PA-C Medication Refill from Last [...] Brother 2 Alcohol/Drug Father alcohol, in was senior living for DUI Anxiety Disorder Father Mental Illness [...] re latives? Once a week 11/24/2023 Attends Zoroastrian Services Not on file 11/23 Active Member of Clubs or Organizations Not on f ile 11/24/2023 Attends Club or Organization Meetings Not on asia e 11/24/2023 Marital Status Not on file 11/24/2023 PHQ-2 Answer Date Recorded PHQ-2 Total Score (Adult) - Positive if 3 or more points; Administer PHQ-9 if positive 0 06/22/2024 [facility] - Occupational Stress [...] in an abandoned building, in an overnight fdc, or couch-surfing.) Yes 11/24/2023 Are you worried [...] PM CDT Legal Sex Female 3:44 AM PRODUCTION LINE MECHANIC Gender Identity Female 10/03/2020 8:33 PM CDT Sexual Orientation Straight 07/01/2018 3: 40 PM PRODUCTION LINE MECHANIC Last Filed Vital Signs Vital Sign Reading [...] Health Maintenance Due Date Last Done Comments TDAP VACCINE () 10/15/2024 006, 08/02/1999, 09/25/1995, Additional history exists YEARLY PREVENTIVE VISIT 11/23/2024 11/24/19 24, 08/15/2022, 02/07/2022, Additional history exists PHQ-9 12/21/2024 06/23/2024, 11/03, 03/31/2023, Additional history exists COVID-19 VACCINE ( season) 2025 INFLUENZA VACCINE (#1) 2025 , 03/11/2023, 02/07/2022, Additional history exists ANNUAL REVIEW [...] TYPES DNA CERVICAL Add-On 03/31/2023 2:16 PM PRODUCTION LINE MECHANIC ASCUS with positive high risk HPV cervical GYNECOLOGIC CYTOLOGY Routine 03/31/2023 2:16 PM PRODUCTION LINE MECHANIC Cervical cancer screening HEPATITIS C ANTIBODY Routine 12/27/2014 3:38 PM CDT Pain in joint, multiple sites Raynaud's syndrome Arthralgia of both knees Smoker HIV 1 AND 2 ANTIBODY (QUEST) Routine 05/24/2011 7:21 AM PRODUCTION LINE MECHANIC from Last 3 Months or Most Recently Relevant to Health Maintenance Results * Pap Screen reflex to HPV if ASCUS - recommend age 25 - 29 (03/31/2023 2:16 PM PRODUCTION LINE MECHANIC) Interpretation Negative for Intraepithelial Lesion or Malignancy (NILM) 04/03/2023 10:33 AM PRODUCTION LINE MECHANIC SPECIAL[facility] at 1033 PRODUCTION LINE MECHANIC Comment Papanicolaou Test Limitations: Cervical cytology is a screening test with limited sensitivity, and regular screening is critical for cancer prevention. Pap tests are primarily effective for the diagnosis/prevent ion of squamous cell carcinoma, not adenocarcinoma or other cancers. 04/03/2023 10:33 AM PRODUCTION LINE MECHANIC [facility] Specimen Adequacy Satisfactory for evaluation, endocervical/angel sformation zone component absent 04/03/2023 10:33 AM PRODUCTION LINE MECHANIC [facility] Clinical Information none 04/03/2023 10:33 AM PRODUCTION LINE MECHANIC [facility] LMP/Menopause Date 03/12/2023 04/03/2023 10:33 AM PRODUCTION LINE MECHANIC [facility] Reflex Testing Yes if ASCUS 04/03/20 10:33 AM PRODUCTION LINE MECHANIC [facility] Previous Abnormal? Yes 04/03/2023 10:33 AM PRODUCTION LINE MECHANIC [facility] Previous Abnormal Diagnosis HPV 2020, ASCUS 04/03/2023 10:33 AM PRODUCTION LINE MECHANIC [facility] Performing Labs The technical component of this testing was completed at [facility] 04/03/2023 10:33 AM PRODUCTION LINE MECHANIC [facility] Brushing CERVIX UTERI STRUCTURE / Unknown Non-blood Collection / Unknown 03/31/2023 2:16 PM PRODUCTION LINE MECHANIC 03/31/2023 2:26 PM PRODUCTION LINE MECHANIC us Nelson Suarez PA-C LAB - BEAKER AP Final Resul t SPECIALTY LAB[facility] Specialty Lab [address], [address] [place] [address], [facility] [phone] * HPV High Risk Types DNA Cervical (03/31/2023 2:16 PM PRODUCTION LINE MECHANIC) Other HR HPV Negative Negative 04/07/2023 8:30 AM PRODUCTION LINE MECHANIC [facility] HPV16 DNA Negative Negative 04/07/2023 8:30 AM PRODUCTION LINE MECHANIC [facility] HPV18 DNA Negative Negative 04/07/2023 8:30 AM PRODUCTION LINE MECHANIC [facility] FINAL DIAGNOSIS This patient's sample is negative for HPV DNA. This test was developed and its performance characteristics determined by the [facility], Molecular Diagnostics Laboratory. It has not [...] clinical followup is recommended. 04/07/2023 8:30 AM PRODUCTION LINE MECHANIC [facility] Brushing CERVIX UTERI STRUCTURE / Unknown Non-blood Collection / Unknown 03/31/2023 2:16 PM PRODUCTION LINE MECHANIC 04/04/2023 9:26 AM PRODUCTION LINE MECHANIC Nelson Suarez PA-C LAB - BLOOD ORDERABLES Kalee l Result [facility]ST[facility] Molecular Diagnostics [address] [facility], [address] [place] [address], [facility] [phone] * Hepatitis C antibody (12/27/2014 3:38 PM CDT) Pathologist [facility] Hepatitis C Antibody Nonreactive Assay performance characteristics have not been established for newborns, infants, and children NR [facility] Blood specimen (specimen) 12/27/2014 3:38 PM CDT 12/27/2014 3:40 PM CDT us Carrillo Ware APRN OUTBOUND SALES SPECIALIST LAB - BLOOD ORDERABLE S Final Result [address] [address] * HIV 1 and 2 Antibody (05/24/2011 7:21 AM PRODUCTION LINE MECHANIC) Pathologist [facility] HIV 1&2 Antibody Negative NEG [facility] 05/24/2011 7:21 AM PRODUCTION LINE MECHANIC 05/24/2011 7:22 AM PRODUCTION LINE MECHANIC us Vidal Suarez MD LAB - BLOOD ORDERABLES Final Result Performing Organization Address [facility] [place] [facility] Co de Phone Number [address] [address] from Last 3 Months or Most Recently Relevant to Health Maintenance Insurance [address] [place] [address] [facility] * Guarantor: Nidia Crystal Account Type Relation to Patient Date of Phone Billing Address Medication Therapy Self [address] [place] [id number] Advance Directives For more information, please contact: [phone] * Full Code (Latest Code Status on File) Date Activated Date Inactivated Comments 05/23/2011 9:13 PM 05/28/2011 6:55 PM Care Teams Tool Maintenance Technician Relationship Specialty Start Date End Date Nelson Suarez PA-C [address] [place] [address] PCP - General Physician Machine Operator Hop Picker - Medical 08/06/18 Salina Doherty MD Internal Medicine 12/01/14 Carrillo Ware APRN OUTBOUND SALES SPECIALIST [address] [place] [id number] Nurse Practitioner Nurse Practitioner 12/16/14 Angelica Jerez NP [facility] [address] [place], [place] [address] Nurse Practitioner Nurse Practitioner - Family 07/12/16 Nelson Suarez PA-C [address] [place] [address] Assigned PCP 07/30/20 Tank Bucio MD [address] [facility], [facility] [address] [place], [place] [address]68[address] Physician test center administrator 12/01/23
--- OUTSIDE RECORDS SUMMARY | 2025-02-01 12:57 | XMS_ITS | Encounter Summary ---
Author Organization [place] Address [address] [place] [address]. [place] [address] Care Team Providers Care Yield Engineer Name Role Phone Salina Doherty MD Unavailable [phone] Carrillo Ware APRN FENCE RIDER Unavailable SolitarioAngelica golden NP Unavailable [phone] Nelson Arroyo PA-C Unavailable Nelson Arroyo PA-C Primary Care Provider Chinyere Barbour Unavailable Unavailable Nelson Arroyo PA-C Unavailable Pietro Wills MD Unavailable Tank Bucio MD Unavailable Reason for Visit * Reason Onset Date Comments Vaginal Problem 02/26/2020 Encounter Details Date Type Department Care Team (Late st Contact Info) Description 02/26/2020 MyC Medical Advice [facility] [address] [facility], [address] [place] [address] Nelson Arroyo PA-C [address] [place] [address] Vaginal Problem Social History Tobacco [...] PM CDT Legal Sex Female 3:44 AM SHIRT FINISHER Gender Identity Female 10/03/2020 8:33 PM CDT Sexual Orientation Straight 07/01/2018 3: 40 PM SHIRT FINISHER documented as of this encounter Miscellaneous Notes * Telephone Encounter - Maude Singh RN - 02/28/2020 12:53 PM CDT [employer] message sent to patient. Maude Singh RN [...] documented as of this encounter Care Teams Yield Engineer Relationship Specialty Start Date End Date Nelson Arroyo PA-C [address] [place] [address] PCP - General Physician Silk Worker - Medical 08/06/18 Salina Doherty MD Internal Medicine 12/01/14 Carrillo Ware APRN FENCE RIDER [address] [place] [address] Nurse Practitioner Nurse Practitioner 12/16/14 Angelica Jerez NP [facility] [address] [place] [address] Nurse Practitioner Nurse Practitioner - Family 07/12/16 Nelson Arroyo PA-C [address] [address] Assigned PCP 07/05/18 07/29/20 Chinyere Barbour Personal Advocate & Liaison (PAL) 01/31/20 04/26/20 Nelson Arroyo PA-C [address] [address] Assigned PCP 07/30/20 Pietro Wills MD [address] [place] [address] Assigned Heart and Vascular Provider 12/14/22 06/26/24 Tank Bucio MD [address], [facility] [address] [place] [address] Physician surgical coordinator 12/01/23 documented as of this encounter
--- OUTSIDE RECORDS SUMMARY | 2025-02-01 12:57 | XMS_ITS | Encounter Summary ---
Author Organization [place] Address [address] [place] [address]. [place] [address] Care Team Providers Care Rotor Casting Machine Setup Operator Name Role Phone Salina Doherty MD Unavailable [phone] Carrillo Ware APRN DRYWALL CARRIER Unavailable SolitarioAngelica golden NP Unavailable [phone] Nelson Arroyo PA-C Primary Care Provider Nelson Arroyo PA-C Unavailable [phone] Tank Bucio MD Unavailable [phone] Reason for Visit * Reason Comments Medication Refill Encounter Details Date Type Department Care Team (Late st Contact Info) Description 01/12/2025 Refill [facility] [address] [place] [address] Nelson Arroyo PA-C [address] [place] [address] Medication Refill Social History Tobacco [...] re latives? Once a week 11/24/2023 Attends Shinto Services Not on file 11/23 Active Member of Clubs or Organizations Not on f ile 11/24/2023 Attends Club or Organization Meetings Not on asia e 11/24/2023 Marital Status Not on file 11/24/2023 PHQ-2 Answer Date Recorded PHQ-2 Total Score (Adult) - Positive if 3 or more points; Administer PHQ-9 if positive 0 06/22/2024 [facility] Occupat ional Health - Occupational [...] in an abandoned building, in an overnight halfway, or couch-surfing.) Yes 11/24/2023 Are you worried [...] CDT Legal Sex Female 3:44 AM MANAGER PERSONAL Gender Identity Female 10/03/2020 8:33 PM CDT Sexual Orientation Straight 07/01/2018 3: 40 PM MANAGER PERSONAL documented as of this encounter Miscellaneous Notes * Telephone Encounter - Vidhi Paulson RN - 01/13/2025 10:52 AM CDT Attempted to call x2. Left voicemail. [employer] Mobile[employer] message hasn't been readyet. Multiple attempts have been made. Closing encounter Vidhi Paulson RN on 01/13/2025 at 10:52 AM * Telephone Encounter - Kay Zambrano RN - 01/12/2025 1:21 PM CDT Tretinoin was dc'd on 06/24/24 by Nelson. Called the pt and lmtcb. Will also send a mychart. * Telephone Encounter - Tarik Jaramillo RN - 01/12/2025 1:18 PM CDT Clinic RN: Please investigate patient's chart or contact patient if the information cannot be foundbecause the medication is listed as historical or discontinued. Confirm patient is taking this medication. Document findings and route refill encounter to provider for approval or denial. Tarik Jaramillo RN on 01/12/2025 at 1:18 PM documented in this encounter Plan of Treatment Not on file documented as of this encounter Visit Diagnoses Diagnosis Acne, unspecified acne type documented in this encounter Additional Health Concerns Assessment Noted Time PHQ-9 Depression Total Score: 7 10/03/19 25 9:19 AM CDT documented as of this encounter Care Teams Rotor Casting Machine Setup Operator Relationship Specialty Start Date End Date Nelson Arroyo PA-C [address] [place] [address] PCP - General Physician Development Educator - Medical 08/06/18 Salina Doherty MD Internal Medicine 12/01/14 Carrillo Ware APRN DRYWALL CARRIER [address] [place] [address] Nurse Practitioner Nurse Practitioner 12/16/14 Angelica Jerez NP [facility] [address] [place], [place] [address] Nurse Practitioner Nurse Practitioner - Family 07/12/16 Nelson Arroyo PA-C [address] [place] [address] Assigned PCP 07/30/20 Tank Bucio MD [address], [address] [id number] Physician ship harbor pilot 12/01/23 documented as of this encounter
--- OUTSIDE RECORDS SUMMARY | 2025-02-01 12:57 | XMS_ITS | Encounter Summary ---
Author Organization [place] Address [address] [place] [address]. [place] [address] Care Team Providers Care Studio Engineer Name Role Phone Salina Doherty MD Unavailable Carrillo Ware APRN KILN CLEANER Unavailable SolitarioAngelica golden NP Unavailable [phone] Nelson Arroyo PA-C Primary Care Provider Nelson Arroyo PA-C Unavailable Pietro Wills MD Unavailable Tank Bucio MD Unavailable Reason for Visit * Reason Comments Medication Refill Encounter Details Date Type Department Care Team (Late st Contact Info) Description 06/29/2023 Refill [facility] [address] [place] [address] [place] [address] [place] [address] Medication Refill Social History Tobacco [...] in an overnight assisted, or couch-surfing.) Yes 03/31/2023 Are you worried [...] CDT Legal Sex Female 3:44 AM MACHINING DEPARTMENT SUPERVISOR Gender Identity Female 10/03/2020 8:33 PM CDT Sexual Orientation Straight 07/01/2018 3: 40 PM MACHINING DEPARTMENT SUPERVISOR documented as of this encounter Miscellaneous Notes * Telephone Encounter - Mary Fragoso - 06/30/2023 1:18 PM CST LVM & sent MCM to advise pt to follow up with psych provider for rx. Mary Lorenzana Otr Driver INING DEPARTMENT SUPERVISOR * Telephone Encounter - Nelson Arroyo PA-C - 06/30/2023 11:03 AM MACHINING DEPARTMENT SUPERVISOR I think she see's Psych for this. Nelson INING DEPARTMENT SUPERVISOR documented in this encounter Plan of Treatment Not on file documented as of this encounter Visit Diagnoses Diagnosis Generalized anxiety disorder documented in this encounter Additional Health Concerns Assessment Noted Time PHQ-9 Depression Total Score: 8 03/31/20 23 1:09 PM MACHINING DEPARTMENT SUPERVISOR documented as of this encounter Care Teams Studio Engineer Relationship Specialty Start Date End Date Nelson Arroyo PA-C [address] [place] [address] PCP - General Physician Battery Charger Tester - Medical 08/06/18 Salina Doherty MD Internal Medicine 12/01/14 Carrillo Ware APRN CNP [address] [place] [address] [id number] Nurse Practitioner Nurse Practitioner 12/16/14 Angelica Jerez NP [address] [address] Nurse Practitioner Nurse Practitioner - Family 07/12/16 Nelson Arroyo PA-C [address] [address] Assigned PCP 07/30/20 Pietro Wills MD [address] [address] Assigned Heart and Vascular Provider 12/14/22 06/26/24 Tank Bucio MD [address], [address] [address] Physician replenishment buyer 12/01/23 documented as of this encounter
--- OUTSIDE RECORDS SUMMARY | 2025-02-01 12:57 | XMS_ITS | Encounter Summary ---
Author Organization [place] Address [address] [place] [address]. [place] [address] Care Team Providers Care Quartz Miner Name Role Phone Salina Doherty MD Unavailable Carrillo Ware APRN POT LINER Unavailable SolitarioAngelica golden NP Unavailable [phone] Nelson Arroyo PA-C Primary Care Provider Nelson Arroyo PA-C Unavailable Pietro Wills MD Unavailable [phone] Tank Bucio MD Unavailable [phone] Encounter Details Date Type Department Care Team (Late st Contact Info) Description 02/20/2023 MyC Medical Advice [facility] [address] [place] [address] Nelson Arroyo PA-C [address] [place] [address] Social History Tobacco Use Types [...] PM CDT Legal Sex Female 3:44 AM IMPREGNATOR Gender Identity Female 10/03/2020 8:33 PM CDT Sexual Orientation Straight 07/01/2018 3: 40 PM IMPREGNATOR documented as of this encounter Plan of Treatment Not on file documented as of this encounter Visit Diagnoses Not on filedocumented in this encounter Additional Health Concerns Assessment Noted Time PHQ-9 Depression Total Score: 6 02/14/20 23 10:10 AM CDT documented as of this encounter Care Teams Quartz Miner Relationship Specialty Start Date End Date Nelson Arroyo PA-C [address] [place] [address] PCP - General Physician Timber Deadener - Medical 08/06/18 Salina Doherty MD Internal Medicine 12/01/14 Carrillo Ware APRN POT LINER [address] [place] [address] [id number] Nurse Practitioner Nurse Practitioner 12/16/14 Angelica Jerez NP [address] [address] Nurse Practitioner Nurse Practitioner - Family 07/12/16 Nelson Arroyo PA-C [address] [address] Assigned PCP 07/30/20 Pietro Wills MD [address] [place] [address] Assigned Heart and Vascular Provider 12/14/22 06/26/24 Tank Bucio MD [address] [address] Physician brim and crown presser 12/01/23 documented as of this encounter
--- OUTSIDE RECORDS SUMMARY | 2025-02-01 12:57 | XMS_ITS | Encounter Summary ---
Author Organization [place] Address [address] [place] [address] Care Team Providers Care Slimer Name Role Phone Salina Doherty MD Unavailable [phone] Carrillo Ware APRN CHEMICAL SUPERVISOR Unavailable SolitarioAngelica golden NP Unavailable [phone] Nelson Arroyo PA-C Primary Care Provider Nelson Arroyo PA-C Unavailable [phone] Pietro Wills MD Unavailable [phone] Tank Bucio MD Unavailable [phone] Encounter Details Date Type Department Care Team (Late st Contact Info) Description 06/30/2023 [facility] Medical Advice [address] [address] Mary Fragoso Social History Tobacco [...] in an abandoned building, in an overnight nursing home, or couch-surfing.) Yes 03/31/2023 Are you [...] PM CDT Legal Sex Female 3:44 AM QUOTER Gender Identity Female 10/03/2020 8:33 PM CDT Sexual Orientation Straight 07/01/2018 3: 40 PM QUOTER documented as of this encounter Plan of Treatment Not on file documented as of this encounter Visit Diagnoses Not on filedocumented in this encounter Additional Health Concerns Assessment Noted Time PHQ-9 Depression Total Score: 8 03/31/20 23 1:09 PM QUOTER documented as of this encounter Care Teams Slimer Relationship Specialty Start Date End Date Nelson Arroyo PA-C [address] [address] PCP - General Physician Industrial Eng - Medical 08/06/18 Salina Doherty MD Internal Medicine 12/01/14 Carrillo Ware APRN CHEMICAL SUPERVISOR [address] [place] [address] Nurse Practitioner Nurse Practitioner 12/16/14 Angelica Jerez NP [facility] [address] [place], [place] [address] Nurse Practitioner Nurse Practitioner - Family 07/12/16 Nelson Arroyo PA-C [address] [place] [address] Assigned PCP 07/30/20 Pietro Wills MD [address] [place] [address] Assigned Heart and Vascular Provider 12/14/22 06/26/24 Tank Bucio MD [address], [address] [address] Physician business services coordinator 12/01/23 documented as of this encounter
--- OUTSIDE RECORDS SUMMARY | 2025-02-01 12:57 | XMS_ITS | Encounter Summary ---
Author Organization [place] Address [address] [place] [address]. [address] Care Team Providers Care Zoogler Name Role Phone Salina Doherty MD Unavailable Carrillo Ware APRN WAFER FABRICATOR Unavailable SolitarioAngelica golden NP Unavailable Nelson Arroyo PA-C Primary Care Provider Nelson Arroyo PA-C Unavailable Pietro Wills MD Unavailable [phone] Tank Bucio MD Unavailable [phone] Encounter Details Date Type Department Care Team (Late st Contact Info) Description 07/30/2023 MyC Medical Advice [facility] [address] [place] [address] Nelson Arroyo PA-C [address] [place] [address] Social History Tobacco Use Types [...] in an overnight long-term, or couch-surfing.) Yes 03/31/2023 Are you worried [...] PM CDT Legal Sex Female 3:44 AM NEEDLE FELT MAKING MACHINE OPERATOR Gender Identity Female 10/03/2020 8:33 PM CDT Sexual Orientation Straight 07/01/2018 3: 40 PM NEEDLE FELT MAKING MACHINE OPERATOR documented as of this encounter [...] Total Score: 8 03/31/20 23 1:09 PM NEEDLE FELT MAKING MACHINE OPERATOR documented as of this encounter Care Teams Zoogler Relationship Specialty Start Date End Date Nelson Arroyo PA-C [address] [place] [address] PCP - General Physician Plaster Die Maker - Medical 08/06/18 Salina Doherty MD Internal Medicine 12/01/14 Carrillo Ware APRN WAFER FABRICATOR [address] [place] [address] Nurse Practitioner Nurse Practitioner 12/16/14 Angelica Jerez NP [facility] [address] [place], [place] [address] Nurse Practitioner Nurse Practitioner - Family 07/12/16 Nelson Arroyo PA-C [address] [address] [place] [address] Assigned PCP 07/30/20 Pietro Wills MD [address] [place] [address] Assigned Heart and Vascular Provider 12/14/22 06/26/24 Tank Bucio MD [address], [address] [address] Physician roller embosser 12/01/23 documented as of this encounter
--- OUTSIDE RECORDS SUMMARY | 2025-02-01 12:57 | XMS_ITS | CCD ---
Author Name Interface, N8Odarvgl lity Address [facility] [address] [address] [facility] Address [address] [address] Reason for Visit Social History
--- OUTSIDE RECORDS SUMMARY | 2025-02-01 12:57 | XMS_ITS | Encounter Summary ---
Author Organization [facility] Address [address] [place] [address]. [place] [address] Care Team Providers Care Pin Machine Operator Name Role Phone Salina Doherty MD Unavailable [phone] Carrillo Ware APRN SCIENTIFIC PHOTOGRAPHER Unavailable SolitarioAngelica golden NP Unavailable Nelson Arroyo PA-C Primary Care Provider [phone] Nelson Arroyo PA-C Unavailable [phone] Tank Bucio MD Unavailable [phone] Reason for Visit * Reason Onset Date Comments Medication Question 06/29/2024 Metoprolol - OB Encounter Details Date Type Department Care Team (Late st Contact Info) Description 06/29/2024 MyC Medical Advice [facility] [address] [place] [address] Nelson Arroyo PA-C [address] [place] [address] Medication Question (Metoprolol - OB [...] re latives? Once a week 11/24/2023 Attends Gnosticism Services Not on file 11/23 Active Member of Clubs or Organizations Not on f ile 11/24/2023 Attends Club or Organization Meetings Not on asia e 11/24/2023 Marital Status Not on file 11/24/2023 PHQ-2 Answer Date Recorded PHQ-2 Total Score (Adult) - Positive if 3 or more points; Administer PHQ-9 if positive 0 06/22/2024 [facility] [place] of Occupat ional Health - Occupational Stress [...] CDT Legal Sex Female 3:44 AM SENIOR EXECUTIVE ASSISTANT Gender Identity Female 10/03/2020 8:33 PM CDT Sexual Orientation Straight 07/01/2018 3: 40 PM SENIOR EXECUTIVE ASSISTANT documented as of this encounter Miscellaneous Notes * Telephone Encounter - Rianna Spangler - 06/30/2024 9:30 AM CST Forwarding updated information to Provider. Patient sent OB Provider information to discuss medication metoprolol [phone] OR EXECUTIVE ASSISTANT * Telephone Encounter - Rianna Spangler - 06/29/2024 3:51 PM CST MCM sent to patient to recheck her OB phone number. When number is sent in - forward to Nelson Arroyo as she needs to call OB provider. Kezia Spangler Water Safety Teacher OR EXECUTIVE ASSISTANT * Telephone Encounter - Nelson Arroyo PA-C - 06/29/2024 3:34 PM SENIOR EXECUTIVE ASSISTANT I called that number and it seems to be a fax number. OR EXECUTIVE ASSISTANT * Telephone Encounter - Rianna Spangler - 06/29/2024 3:07 PM CST Forwarding information to Provider. Patient sent OB Provider information to discuss medication. OB provider will need to be paged to contact her to discuss medication metoprolol Mackenzie Mancuso with [facility] and [facility] at the [facility]. Address: [address] [place] [address] Phone: [phone] Kezia Spangler Water Safety Teacher OR EXECUTIVE ASSISTANT * Telephone Encounter - Adrienne Frazier RN - 06/29/2024 10:56 AM SENIOR EXECUTIVE ASSISTANT See my chart, awaiting patient response with contact information for OB After received please send to Nelson Arroyo PAC to see if she would like the OB provider paged to contact her to discuss medication metoprolol Adrienne Frazier RN on 06/29/2024 at 10:59 AM OR EXECUTIVE ASSISTANT * Telephone Encounter - Rianna Spangler - 06/29/2024 10:30 AM CST Forwarding to nurse team for further follow-up. Kezia Spangler Water Safety Teacher OR EXECUTIVE ASSISTANT documented in this encounter Plan of Treatment Not on file documented as of this encounter Visit Diagnoses Not on filedocumented in this encounter Additional Health Concerns Assessment Noted Time PHQ-9 Depression Total Score: 7 10/03/19 25 9:19 AM CDT documented as of this encounter Care Teams Pin Machine Operator Relationship Specialty Start Date End Date Nelson Arroyo PA-C [address] [facility] [place] [address] PCP - General Physician Charging Car Operator - Medical 08/06/18 Salina Doherty MD Internal Medicine 12/01/14 Carrillo Ware APRN SCIENTIFIC PHOTOGRAPHER [address] [place] [address] Nurse Practitioner Nurse Practitioner 12/16/14 Angelica Jerez NP [facility] [address] [place] [address] Nurse Practitioner Nurse Practitioner - Family 07/12/16 Nelson Arroyo PA-C [address] [place] [address] Assigned PCP 07/30/20 Tank Bucio MD [address] [facility] [address] [place] [address] Physician hand compositor 12/01/23 documented as of this encounter
--- OUTSIDE RECORDS SUMMARY | 2025-02-01 12:57 | XMS_ITS | Encounter Summary ---
Author Organization [facility] Address [address] [place] [address]. [place] [address] Care Team Providers Care Manager Costing Name Role Phone Salina Doherty MD Unavailable [phone] Carrillo Ware APRN FOOD SAFETY DIRECTOR Unavailable [phone] SolitarioAngelica golden NP Unavailable [phone] Nelson Arroyo PA-C Primary Care Provider [phone] Nelson Arroyo PA-C Unavailable Pietro Wills MD Unavailable [phone] Tank Bucio MD Unavailable [phone] Reason for Visit * Reason Comments Medication Refill Encounter Details Date Type Department Care Team (Late st Contact Info) Description 09/21/[address], [address] [place] [address] Nelson Arroyo PA-C [address] [place] [address] Medication Refill Social History Tobacco [...] PM CDT Legal Sex Female 3:44 AM WINE MASTER Gender Identity Female 10/03/2020 8:33 PM CDT Sexual Orientation Straight 07/01/2018 3: 40 PM WINE MASTER documented as of this encounter Miscellaneous Notes * Telephone Encounter - Minda Vergara RN - 10/06/2020 9:39 AM CDT clonazePAM (KLONOPIN) 0.5 MG tablet Last Written Prescription Date: 07/13/20 Last Fill Quantity: 20, # refills: 0 Last Office Visit: 08/15/20 Future Office visit: Next 5 appointments (look out 90 days) Oct 18, 2020 5:15 PM MyClashaet Short with Nelson Arroyo PA-C [facility] ([facility] ) [address] [place] [address] Routing refill request to provider for [...] 09/22/2020 11:50 AM CDT 1st attempt, sent [place] [employer] Technology[employer] message to schedule appt * Telephone Encounter [...] Total Score: 6 07/14/19 21 3:35 PM WINE MASTER documented as of this encounter Care Teams Manager Costing Relationship Specialty Start Date End Date Nelson Arroyo PA-C [address] [place] [address] PCP - General Physician Sanitation Technician - Medical 08/06/18 Salina Doherty MD Internal Medicine 12/01/14 Carrillo Ware APRN CNP [address] [place] [address] Nurse Practitioner Nurse Practitioner 12/16/14 Angelica Jerez NP [address] [address] Nurse Practitioner Nurse Practitioner - Family 07/12/16 Nelson Arroyo PA-C [address] [address] Assigned PCP 07/30/20 Pietro Wills MD [address] [address] Assigned Heart and Vascular Provider 12/14/22 06/26/24 Tank Bucio MD [address] [facility] [address] [place] [address] Physician residence director 12/01/23 documented as of this encounter
--- OUTSIDE RECORDS SUMMARY | 2025-02-01 12:57 | XMS_ITS | Encounter Summary ---
Author Organization [facility] Address [address] [place] [address] Care Team Providers Care Photographer Still Name Role Phone Salina Doherty MD Unavailable [phone] Carrillo Ware APRN ABORIGINAL LIAISON OFFICER Unavailable [phone] Hillary Unger MD Primary Care P rovider Nelson Arroyo PA-C Primary Care Provider [phone] Hillary Unger MD Primary Care P rovider Angelica Jerez NP Unavailable [phone] Nelson Arroyo PA-C Unavailable [phone] Hillary Unger MD Unavailable Hillary Unger MD Unavailable Hillary Unger MD Unavailable Nelson Arroyo PA-C Unavailable + Nelson Arroyo PA-C Primary Care Provider +[phone]- Chinyere Barbour Unavailable Unavailable Nelson Arroyo PA-C Unavailable [phone] Pietro Wills MD Unavailable [phone] Tank Bucio MD Unavailable [phone] Encounter Details Date Type Department Care Team (Late st Contact Info) Description 05/14/2015 MyC Medical Advice [address], [address] [place] [address] Nelson Arroyo PA-C [address] [place] [address] Social History Tobacco Use Types Packs/Day Years [...] PM CDT Legal Sex Female 3:44 AM ROLL FORMING MACHINE SET UP OPERATOR Gender Identity Female 10/03/2020 8:33 PM CDT Sexual Orientation Straight 07/01/2018 3: 40 PM ROLL FORMING MACHINE SET UP OPERATOR documented as of this encounter Plan of Treatment Not on file documented as of this encounter Visit Diagnoses Not on filedocumented in this encounter Care Teams Photographer Still Relationship Specialty Start Date End Date Hillary Unger MD [address] [place] [address] PCP - General Internal Medicine 01/05/15 08/02/15 Nelson Arroyo PA-C [address] [place] [address] PCP - General Physician Shearing Shed Hand - Medical 08/03/15 08/20/15 Hillary Unger MD [address] [place] [address] PCP - General Internal Medicine 08/21/15 08/05/18 Nelson Arroyo PA-C [address] [place] [address] PCP - Assigned PCP 04/12/18 05/02/18 Hillary Unger MD [address] [place], [place] [address] PCP - Assigned PCP 02/01/18 04/11/18 Hillary Unger MD [address] [place] [address] PCP - Assigned PCP 05/03/18 07/07/18 Nelson Arroyo PA-C [address] [place] [address] PCP - General Physician Shearing Shed Hand - Medical 08/06/18 Salina Doherty MD Internal Medicine 12/01/14 Carrillo Ware APRN ABORIGINAL LIAISON OFFICER [address] [place] [address] Nurse Practitioner Nurse Practitioner 12/16/14 Angelica Jerez NP [facility] [address] [place] [address] Nurse Practitioner Nurse Practitioner - Family 07/12/16 Hillary Unger MD [address] [place] [address] Assigned PCP 05/03/18 07/18/18 Nelson Arroyo PA-C [address], [place] [address] Assigned PCP 07/05/18 07/29/20 Chinyere Barbour Personal Advocate & Liaison (PAL) 01/31/20 04/26/20 Nelson Arroyo PA-C [address] [address] Assigned PCP 07/30/20 Pietro Wills MD [address] [place] [address] Assigned Heart and Vascular Provider 12/14/22 06/26/24 Tank Bucio MD [address], [address] [address] Physician vice president industrial relations 12/01/23 documented as of this encounter
--- OUTSIDE RECORDS SUMMARY | 2025-02-01 12:57 | XMS_ITS | Encounter Summary ---
Author Organization [facility] Address [address] [place] [address] Care Team Providers Care Stockroom Helper Name Role Phone Salina Doherty MD Unavailable [phone] Carrillo Ware APRN RN ADVICE Unavailable SolitarioAngelica golden NP Unavailable [phone] Nelson Arroyo PA-C Primary Care Provider [phone] Nelson Arroyo PA-C Unavailable [phone] Tank Bucio MD Unavailable [phone] Encounter Details Date Type Department Care Team (Late st Contact Info) Description 01/12/2025 MyC Medical Advice [address] [address] Kay Zambrano, RN Social History Tobacco Use Types Packs/Day [...] re latives? Once a week 11/24/2023 Attends Orthodox Services Not on file 11/23 Active Member of Clubs or Organizations Not on f ile 11/24/2023 Attends Club or Organization Meetings Not on asia e 11/24/2023 Marital Status Not on file 11/24/2023 PHQ-2 Answer Date Recorded PHQ-2 Total Score (Adult) - Positive if 3 or more points; Administer PHQ-9 if positive 0 06/22/2024 [facility] [place] of Occupat ional Health - Occupational Stress [...] PM CDT Legal Sex Female 3:44 AM GYNAECOLOGICAL ONCOLOGIST Gender Identity Female 10/03/2020 8:33 PM CDT Sexual Orientation Straight 07/01/2018 3: 40 PM GYNAECOLOGICAL ONCOLOGIST documented as of this encounter Miscellaneous Notes * Telephone Encounter - Vidhi Paulson RN - 01/13/2025 10:51 AM CDT Attempted to call x2. Left voicemail. [employer] message hasn't been readyet. Multiple attempts have been made. Closing encounter Vidhi Paulson RN on 01/13/2025 at 10:52 AM documented in this encounter Plan of Treatment Not on file documented as of this encounter Visit Diagnoses Not on filedocumented in this encounter Additional Health Concerns Assessment Noted Time PHQ-9 Depression Total Score: 7 10/03/19 25 9:19 AM CDT documented as of this encounter Care Teams Stockroom Helper Relationship Specialty Start Date End Date Nelson Arroyo PA-C [address] [facility] [place] [address] PCP - General Physician Police And Fire Dispatcher - Medical 08/06/18 Salina Doherty MD Internal Medicine 12/01/14 Carrillo Ware APRN RN ADVICE [address] [place] [address] Nurse Practitioner Nurse Practitioner 12/16/14 Angelica Jerez NP [facility] [address] [place] [address] Nurse Practitioner Nurse Practitioner - Family 07/12/16 Nelson Arroyo PA-C [address] [place] [address] Assigned PCP 07/30/20 Tank Bucio MD [address], [address] [place] [address] Physician broadcast director operations 12/01/23 documented as of this encounter
--- OUTSIDE RECORDS SUMMARY | 2025-02-01 12:57 | XMS_ITS | Encounter Summary ---
Author Organization [facility] Address [address] [place] [address]. [place] [address] Care Team Providers Care Cruise Guide Name Role Phone Salina Doherty MD Unavailable [phone] Carrillo Ware APRN HOSPICE ADMINISTRATOR Unavailable SolitarioAngelica golden NP Unavailable [phone] Nelson Arroyo PA-C Primary Care Provider Nelson Arroyo PA-C Unavailable [phone] Tank Bucio MD Unavailable [phone] Reason for Visit * Reason Comments Medication Refill Encounter Details Date Type Department Care Team (Late st Contact Info) Description 01/27/2025 Refill [facility] [address] [place] [address] Nelson Arroyo PA-C [address] [place] [address] Medication Refill Social History Tobacco [...] re latives? Once a week 11/24/2023 Attends Hoahaoism Services Not on file 11/23 Active Member of Clubs or Organizations Not on f ile 11/24/2023 Attends Club or Organization Meetings Not on asia e 11/24/2023 Marital Status Not on file 11/24/2023 PHQ-2 Answer Date Recorded PHQ-2 Total Score (Adult) - Positive if 3 or more points; Administer PHQ-9 if positive 0 06/22/2024 [facility] of Occupat ional Health - Occupational [...] PM CDT Legal Sex Female 3:44 AM WINDOW CASER Gender Identity Female 10/03/2020 8:33 PM CDT Sexual Orientation Straight 07/01/2018 3: 40 PM WINDOW CASER documented as of this encounter Miscellaneous Notes * Telephone Encounter - Vidhi Bosch - 01/31/2025 3:43 PM CDT LVM x3. Mailing letter. Contacts Contact Date/Time Type Contact Phone/Fax 01/27/2025 12:13 AM CDT Interface (Incoming) [id number] [place], [place] - [address] [address] (Pharmacy) [phone] 01/31/2025 03:42 PM CDT Phone (Outgoing) Anamaria Crystal (Self) [phone] (M) Left Message Attempted to reach patient to: Schedule an appointment When patient returns call, please take this action: Assist with scheduling Reason for the visit: Chronic Disease Management/Medication/Follow-up When to schedule: Within 30 days Additional comments/info: schedule med check If unable to schedule: Transfer to TC line (or update telephone encounter in after-hours) * Telephone Encounter - Maddi Andrade - 01/28/2025 8:39 AM CDT LVM requesting a call back for an appt - medication follow up visit . One more attempt will be made. Maddi Littlejohn Utility Maintenance Worker [facility] * Telephone Encounter - Vidhi Bosch - 01/27/2025 1:34 PM CDT Sent MyChart x1 attempt. Vidhi Moise, Utility Maintenance Worker- [place] [address] Primary Care- [facility] * Telephone Encounter - Nelson Arroyo PA-C - 01/27/2025 12:40 PM CDT I would like to see her. One month given, please help schedule visit. Nelson documented in this encounter Plan of Treatment Not on file documented as of this encounter Visit Diagnoses Diagnosis Elevated blood pressure reading without diagnosis of hypertension documented in this encounter Additional Health Concerns Assessment Noted Time PHQ-9 Depression Total Score: 7 10/03/19 25 9:19 AM CDT documented as of this encounter Care Teams Cruise Guide Relationship Specialty Start Date End Date Nelson Arroyo PA-C [address] [place] [address] PCP - General Physician Nurse Examiner - Medical 08/06/18 Salina Doherty MD Internal Medicine 12/01/14 Carrillo Ware APRN HOSPICE ADMINISTRATOR [address] [place] [id number] Nurse Practitioner Nurse Practitioner 12/16/14 Angelica Jerez NP [address] [address] Nurse Practitioner Nurse Practitioner - Family 07/12/16 Nelson Arroyo PA-C [address] [place] [address] Assigned PCP 07/30/20 Tank Bucio MD [address], [facility] [address] [place] [address] Physician panel machine setter 12/01/23 documented as of this encounter
--- OUTSIDE RECORDS SUMMARY | 2025-02-01 12:57 | XMS_ITS | Encounter Summary ---
Author Organization [facility] Address [address] [place] [address]. [place] [address] Care Team Providers Care Head Of Commission Department Name Role Phone Salina Doherty MD Unavailable [phone] Carrillo Ware APRN STAND UP FORKLIFT OPERATOR Unavailable SolitarioAngelica golden NP Unavailable [phone] Nelson Arroyo PA-C Unavailable Nelson Arroyo PA-C Primary Care Provider Chinyere Barbour Unavailable Unavailable Nelson Arroyo PA-C Unavailable Pietro Wills MD Unavailable Tank Bucio MD Unavailable Reason for Visit * Reason Onset Date Comments Appointment 12/27/2019 med check, cough Encounter Details Date Type Department Care Team (Late st Contact Info) Description 12/27/2019 MyC Medical Advice [facility] [address] [facility], [address] [place] [address] Nelson Arroyo PA-C [address] [place] [address] Appointment (med check, cough) Social [...] PM CDT Legal Sex Female 3:44 AM FRAMING AND HANGING Gender Identity Female 10/03/2020 8:33 PM CDT Sexual Orientation Straight 07/01/2018 3: 40 PM FRAMING AND HANGING documented as of this encounter Miscellaneous Notes * Telephone Encounter - Jahaira Ya CMA - 12/30/2019 8:11 AM CDT LM to get appt scheduled Jahaira Ya CMA * Telephone Encounter - Blanca Baker - 12/28/2019 1:53 PM CDT Left message, please help patient schedule med check with Blanca Red/ Curtain Inspector * Telephone Encounter - Maude Singh RN [...] as of this encounter Care Teams Head Of Commission Department Relationship Specialty Start Date End Date Nelson Arroyo PA-C [address] [place] [address] PCP - General Physician Assistant Casino Shift Manager - Medical 08/06/18 Salina Doherty MD Internal Medicine 12/01/14 Carrillo Ware APRN STAND UP FORKLIFT OPERATOR [address] [place] [address] Nurse Practitioner Nurse Practitioner 12/16/14 Angelica Jerez FRONT COUNTER ATTENDANT [facility] [address] [place] [address] Nurse Practitioner Nurse Practitioner - Family 07/12/16 Nelson Arroyo PA-C [address] [place] [address] Assigned PCP 07/05/18 07/29/20 Chinyere Barbour Personal Advocate & Liaison (PAL) 01/31/20 04/26/20 Nelson Arroyo PA-C [address] [address] [place] [id number] Assigned PCP 07/30/20 Pietro Wills MD [address] [place] [address] Assigned Heart and Vascular Provider 12/14/22 06/26/24 Tank Bucio MD [address], [facility] [address] [place] [address] Physician fiscal officer 12/01/23 documented as of this encounter
--- OUTSIDE RECORDS SUMMARY | 2025-02-01 12:57 | XMS_ITS | Clinical Summary ---
Author Organization [facility] Address [address] [place] [address] Care Team Providers Care Public Opinion Survey Taker Name Role Phone Pcp, No Primary Care Provider Unavailabl e Allergies Active Allergy Reactions Criticality Noted Date Comments Sertraline Hcl Other - Describe In Comment Field 10/02/2010 Fainting, unable to sleep Medications tretinoin 0.05 % 0.05 % cream Spread a pea size amount into affected area topically at bedtime. Use sunscreen SPF>20. 45 g 11 04/26/2015 12:49 PM MARBLEIZING MACHINE TENDER 5 Active EPINEPHrine (EPIPEN) 0.3 mg/0.3 mL injection INJECT 0.3 MLS (0.3 MG) INTO THE MUSCLE NEEDED FOR ANAPHYLAXIS 1 Active magnesium 250 mg tab Take 250 mg by mouth once daily. Active vitamins no.2 ( VITAMIN NO.2 ORAL) Take by mouth. Activ e metoprolol succinate (TOPROL XL) 50 mg sustained-rele ase tablet Take 1 Tablet (50 mg) by mouth two times daily. 4 Active docusate (COLACE) 100 mg capsule TAKE 1-2 CAPS DAILY NEEDED FOR CONSTIPATION. 5 Active lamoTRIgine 150 mg tabletIndicati ons:Severe episode of recurrent major depressive disorder, without psychotic features (HC) Take 1 Tablet (150 mg) by mouth once daily. 90 Tablet 1 5 Active escitalopram oxalate (Lexapro) 5 mg tabletIndicati ons:Severe episode of recurrent major depressive disorder, without psychotic features (HC),Generaliz ed anxiety disorder,PTSD (post-traumati c stress disorder) Take 1 Tablet (5 mg) by mouth once daily. 30 Tablet 1 5 Active QUEtiapine (SeroqueL) 100 mg tabletIndicati ons:Severe episode of recurrent major depressive disorder, without psychotic features (HC),PTSD (post-traumati c stress disorder) Take 1 Tablet (100 mg) by mouth at bedtime. 30 Tablet 1 5 Active cetirizine (ZYRTEC) 10 mg tablet Take 10 mg by mouth once daily. 1 01/07/20 25 Discontin ued(*Irma ent states no longer taking) tiZANidine (ZANAFLEX) 4 mg tabletIndicati ons:Tightness of neck Take 0.5-1 Tablets (2-4 mg) by mouth at bedtime if needed for Muscle Spasm. 30 Tablet 2 01/07/20 25 Discontin ued(*Irma ent states no longer taking) COQ10, UBIQUINOL, ORAL Take by mouth. 01/07/20 25 Discontin ued(*Irma ent states no longer taking) calcium carbonate (Calcium 500) 500 mg calcium (1,250 mg) chewable tablet Chew 1,250 mg by mouth three times daily with meals. 01/07/20 25 Discontin ued(*Irma ent states no longer taking) lamoTRIgine 150 mg tabletIndicati ons:Severe episode of recurrent major depressive disorder, without psychotic features (HC) Take 1 Tablet (150 mg) by mouth once daily. 90 Tablet 1 5 01/07/20 25 Discontin ued(Reord er (E-cancel not sent)) QUEtiapine (SEROQUEL) 300 mg tabletIndicati ons:Severe episode of recurrent major depressive disorder, without psychotic features (HC) Take 1 Tablet (300 mg) by mouth at bedtime. 90 Tablet 1 5 01/07/20 25 Discontin ued(*Medi cation adjustmen t) QUEtiapine 150 mg tabIndications :Severe episode of recurrent major depressive disorder, without psychotic features (HC) Take 150 mg by mouth at bedtime. 90 Tablet 5 01/11/20 25 Discontin ued(*Medi cation adjustmen t) Active Problems Problem Noted Date Diagnosed Date [...] Current Past Medical History: . Date Anxiety 2015 ASCUS with positive high risk HPV cervical 03/02/2020 03/02/2020 ASCUS/HPV+, HPV 16/18 Negative. ([place]). PLAN: Pap/HPV testing due 01/2022 Depression 2015 Infertility, female 2021 Past Surgical History: . [...] Overview (02/01/2021): 03/02/2020 ASCUS/HPV+, HPV 16/18 Negative. (Big Indian) 01/31/2021 Colposcopy: Benign PLAN: Pap/HPV testing due 01/2022 Encounters Date Type Department Care Team Description 02/01/2025 Refill [facility] [address] [place] [address] Chrissy Jefferson NP Refill Request (Escitalopram 5mg tablet) 01/07/2025 E-Consult [facility] [address] [place] [address] Erica Jasso MD 01/06/2025 1:45 PM CDT Telemedicine [facility] [address] [place] [address] Chrissy Jefferson NP Telehealth; Medication Management (Follow up, ) 01/06/2025 Travel 12/27/2024 Lab Requisition [facility] [phone] Dani, Val Dumont MD from Last 3 Months Immunizations Immunization Administration [...] PHQ-2 Answer Date Recorded PHQ-2 TOTAL SCORE 1 01/06/2025 Social Connections Answer Date Recorded Frequency of Communication with Friends and Fami ly Not on file 02/07/2022 Alcohol Use Answer Date Recorded How often do you have a drink containing alcohol ? 2 07/08/2022 How many drinks containing a lcohol do you have on a typical day when you are drinking? 0 07/08/2022 Frequency of Binge Drinking Not on file 10/2022 Comments No Sex and Gender Information Value Date Recorded Sex Assigned at Not on file Legal Sex Female 8:07 AM MARBLEIZING MACHINE TENDER Gender Identity Not on file Sexual Orientation Not on file Obstetrics History Para Term AB IAB SAB Ectopic Multiple Livin g Live Births 1 0 0 0 0 0 0 0 0 0 0 Date Outcome GA Total Labor Labor/2nd/3rd Weight Sex Type Anes PTL Jackie A1 A5 Name Clin Summary Episode Dates Number of Fetuses Estimated Date of Delivery 05/21/2024 - Present (02/01/2025) 01/14/2025 (set by Valentina Marie, RN on 05/21/2024 based on Last Menstrual Period on 04/09/2024) Dating Summary Based On GABRIEL GA Diff Last Menstrual Period on 04/09/2024 01/14/2025 Working Alternate GABRIEL Entry 01/14/2025 Same Vitals Pregravid Weight Height TWG (As of 02/01/2025) Pregrav id BMI 1.667 m (5' 5.63) [...] Delivery Type: NA 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 MENSTRUAL HISTORY: Patient's last menstrual period was 04/09/2024.: Cycle Regularity: regular, every 28-30 days Past Medical History: . Date Anxiety 2014 ASCUS with positive high risk HPV cervical 03/02/2020 03/02/2020 ASCUS/HPV+, HPV 16/18 Negative. ([place]). PLAN: Pap/HPV testing due 01/2022 Depression 2014 [...] of estimated date of delivery: No Thalassemia (Armenian, Mongolian, Mediterranean, or background): MCV less than 80: No Neural tube defect (Meningomyelocele, Spina bifida, or Anencephaly): No Congenital heart defect: No Down syndrome: No Todd-Sachs (Ashkenazi Orthodoxy, Cajun, Icelandic [place]): No Kirsten disease (Ashkenazi Orthodoxy): No Familial dysautonomia (Ashkenazi Orthodoxy): No Sickle cell disease or trait (): [...] of Beginnings book and book inserts, discussed [id number] medications, and follow up. - Encouraged patient to call clinic at [phone] with any vaginal bleeding, fluid leaking from [...] Valentina Marie RN .................... 05/21/2024 1:57 PM LEIZING MACHINE TENDER Last Filed Vital Signs Vital Sign Reading [...] Body Mass Index 34.11 05/21/2024 1:46 PM MARBLEIZING MACHINE TENDER Plan of Treatment Upcoming Encounters Date Type Department Care Team (Late st Contact Info) Description 02/02/2025 12:45 PM CDT Telemedicine [facility] [address] [place] [address] Chrissy Jefferson NP [address] [place] [address] Health Maintenance Due Date Last Done Comments Pap test for age 21-65 2015 COVID-19 vaccine series ( season) 2025 Influenza Vaccine (#1) 2025 , 03/02/2020, 02/04/2019, Additional history exists BMI (ht and wt on same day) for age 18+ 05/21/2025 05/21/2024, 02/07/2022, 04/09/2021, Additional history exists Depression screening for age 12+ 01/06/2026 01/06/2025, 07/19/2024, 05/21/2024, Additional history exists Tetanus booster 08/30/2026 08/30/2016, 12/04, 08/02/1999, Additional history exists RSV vaccine for adults or (1 - 1-dose 75+ series) 2069 Hepatitis B series for 19+ Completed 03/11, 1994, 1994 HPV series for age 9-45 Completed 01/16/20 11, 08/02/2010, 02/12/2010 HIV for age 15-65 Completed 05/21/2024 Hepatitis C screening for age 18-79 Completed 05/21/2024, 02/07/2022 Pneumococcal series for age 6-49 Aged Out No longer eligible based on patient's age to complete this topic Procedures Procedure Name Priority Date/Time Associated Diagnosis Comments PATH TISSUE EXAM PLACENTA Routine 12/25/2024 5:52 AM CDT LAB TRACKING EVENT Routine 12/23/2024 8: 55 AM CDT ANTI HIV 1/2 Routine 05/21/2024 2:50 PM MARBLEIZING MACHINE TENDER Encounter for supervision of normal first in first trimester (HC) ANTI HCV Routine 05/21/2024 2:50 PM MARBLEIZING MACHINE TENDER Encounter for supervision of normal first in first trimester (HC) from Last 3 Months or Most Recently Relevant to Health Maintenance Results * PATH TISSUE EXAM PLACENTA (12/25/2024 5:52 AM CDT) Case Report Pathology Report Case: [id number] Authorizing Provider: Val Louise MD Collected: 12/25/2024 0552 Ordering Location: [facility] Received: 12/27/2024 1411 Pathologist: Dulce Kemp MD Specimen: Placenta 12/28/2024 6:03 PM CDT [facility] Final Diagnosis A) PLACENTA, VAGINAL DELIVERY: 1. Third trimester hyatt placenta with the following characteristics: a. Weight: 384 grams (<10th percentile for gestational age) b. Membranes/ surface: Negative for chorioamnionitis c. Umbilical cord: Three vessel cord Negative for funisitis d. Disc/Villi: Chorionic villi consistent with gestational age Negative for villitis Placental disc without infarcts e. Decidua/basal plate: Chronic deciduitis 12/28/2024 6:03 PM CDT [facility] at 1803 CDT Comment The patient's clinical history of hypertension is noted. Some histologic features that can be associated with maternal hypertensive disorders include decidual vasculopathy, infarcts, abruption, villous maldevelopment, and small placental size. In this case, the placenta is small. Placental features that have been associated with diabetes mellitus include an enlarged placenta, villous immaturity and increased villous vessel density (chorangiosis). In this case, these features are not seen. Chronic deciduitis/plasma cell deciduitis is the accumulation of small lymphocytes with presence of scattered plasma cells in the decidualized endometrium. Its presence can occur in absence of other placental lesions (thought to be due to antigentic stimulation to maternal autoantigens, alloantigens, or microorganisms) or occur in association with acute chorioamnionitis or villitis of unknown etiology. Chronic deciduitis may be a cause of labor. 12/28/2024 6:03 PM CDT [facility] Clinical Information Indications for Placental Examination by Pathology / indications: None indicated Maternal indications: Diabetes and Hypertension Placental indications: None indicated Infectious specimen (e.g. maternal HIV or HCV): No Clinical information: Date of delivery: 12/25/24 Time of delivery: 551 Type of delivery: Vaginal Live born:Yes Gestational age: 37 weeks weight of infant(s): 2745 grams Sex of (s): Male Pertinent Maternal History: Maternal parity: Diabetes: Yes Hypertension: Yes 12/28/2024 6:03 PM CDT [facility] ENTRAL LABORATORY Gross Description A) Received fresh labeled with the patient's name and placenta, is a yhatt placenta with attached membranes and umbilical cord. The marginally inserted membranes are pink-madrid and semitranslucent, and the point of rupture measures 3.5 cm from the edge of the placental disc. The centrally inserted umbilical cord (43.0 cm long and 0.8 to 1.5 cm in diameter) is madrid-white and focally bluegray with a mildly tortuous ropelike/undulatin g twisting pattern (2-3 coils per 10 cm) and no distinct true/false knots. The umbilical cord inserts 8.5 cm from the edge of the placental disc, and displays 3 distinct vessels on cut surface. The circular placental disc (18.2 x 18.3 x 1.5 cm and 384 g) surface is bluegray and glistening with prominent unremarkable vasculature and minimal centrally concentrated madrid-white subchorionic fibrin deposition occupying approximately 5-7% of the surface. The maternal surface is red-brown with complete cotyledons that display several scattered foci of loosely adherent blood clot material and minimal madrid-white mineralization occupying less than 5% of the maternal surface. Serially sectioning the placental disc reveals homogenous spongy purple-red parenchyma with minimal madrid-white fibrin deposition occupying less than 5% of the specimen in total. No distinct parenchymal lesions or other abnormalities are identified. [employer] Merchandiser sections are submitted as follows: 1. Membranes and insertion 2. Umbilical cord 3. Full-thickness central placental disc at umbilical cord insertion site 4-5. Full-thickness central placental disc with fibrin deposition and loosely adherent blood clot material ADW 12/27/2024 12/28/2024 6:03 PM CDT [facility] Microscopic Description The final diagnosis is based on microscopic examination of appropriate sections of all specimens. 12/28/2024 6:03 PM CDT [facility] EN[facility] Additional Information Interpreted at [facility], Central Laboratory - [address], [place] [address] 12/28/2024 6:03 PM CDT [facility] Tissue SPECIMEN FROM PLACENTA / Unknown 12/25/2024 5:52 AM CDT 12/27/2024 2:11 PM CDT Val Louise MD PATHOLOGY/CYTOLOGY Final Result [facility] [address] [place] [address], [place] * LAB TRACKING EVENT (12/23/2024 8:55 AM CDT) Other (Other) Client Collect / Unknown 12/23/2024 8:55 AM CDT 12/27/2024 1:43 PM CDT Val Louise MD LAB BILL ONLY Final Result [facility] [address] [place] [address], [place] * ANTI HCV (05/21/2024 2:50 PM MARBLEIZING MACHINE TENDER) HEPATITIS C ANTIBODY NON-REACTI VE NON-REACT TANIKA [facility] Comment: HCV antibody was non-reactive. There is no laboratory evidence of HCV infection. In most cases, no further action is required. However, if recent HCV exposure is suspected, a test for HCV RNA (test code 30749) is suggested. For additional information please refer to http://education.Exchange Lab.ECKey/faq/TJO85r7 (This link is being provided for informational/ educational purposes only.) Blood BLOOD SPECIMEN / Unknown 05/21/2024 2:50 PM MARBLEIZING MACHINE TENDER 05/22/2024 3:24 AM MARBLEIZING MACHINE TENDER Narrative [facility] - 05/25/2024 8:16 AM MARBLEIZING MACHINE TENDER FASTING: UNKNOWN Lou Bobby DO SEND OUTS Final Resu lt Performing Organization Address [facility]/State/ZIP Co de Phone Number [employer] [facility] [address] [place] [address], [place] [phone] [facility] [address] [place] [address] * ANTI HIV 1/2 (05/21/2024 2:50 PM MARBLEIZING MACHINE TENDER) HIV AG/AB, 4TH GEN NON-REACT TANIKA NON-REACT TANIKA [facility] Comment: HIV-1 antigen and HIV-1/HIV-2 antibodies were [...] purpose. For additional information please refer to http://education.Revolymer/faq/SSP964 (This link is being provided for informational/ educational purposes only.) The performance of this assay has not been clinically validated in patients less than 2 years old. Blood BLOOD SPECIMEN / Unknown 05/21/2024 2:50 PM MARBLEIZING MACHINE TENDER 05/22/2024 3:24 AM MARBLEIZING MACHINE TENDER Narrative [facility] - 05/25/2024 8:16 AM MARBLEIZING MACHINE TENDER FASTING: UNKNOWN Lou Christinaxler DO SEND OUTS Final Resu lt Performing Organization Address [facility]/State/ZIP Co de Phone Number [employer] [facility] [address] [place] [address], [place] [phone] [facility] [address] [place] [address] from Last 3 Months or Most Recently Relevant to Health Maintenance Insurance [facility] [employer] Care Teams Public Opinion Survey Taker Relationship Specialty Start Date End Date Pcp, No . PCP - General 01/12/21
--- OUTSIDE RECORDS SUMMARY | 2025-02-01 12:57 | XMS_ITS | Encounter Summary ---
Author Organization [facility] Address [address] [place] [address]. [place] [address] Care Team Providers Care Senior Software Systems Engineer Name Role Phone Salina Doherty MD Unavailable [phone] Carrillo Ware APRN RN MATERNAL CHILD Unavailable [phone] SolitarioAngelica golden NP Unavailable [phone] Nelson Arroyo PA-C Primary Care Provider Nelson Arroyo PA-C Unavailable [phone] Tank Bucio MD Unavailable [phone] Reason for Visit * Reason Onset Date Comments Refill Request 07/21/2024 Encounter Details Date Type Department Care Team (Late st Contact Info) Description 07/21/2024 MyC Refill [facility] [address] [place] [address] Nelosn Arroyo PA-C [address] [place] [address] Refill Request Social History Tobacco [...] points; Administer PHQ-9 if positive 0 06/22/2024 [facility] - Occupational [...] an abandoned building, in an overnight senior living, or couch-surfing.) Yes 11/24/2023 Are you worried [...] CDT Legal Sex Female 3:44 AM AIR CONDITIONING UNIT ASSEMBLER Gender Identity Female 10/03/2020 8:33 PM CDT Sexual Orientation Straight 07/01/2018 3: 40 PM AIR CONDITIONING UNIT ASSEMBLER documented as of this encounter Miscellaneous Notes [...] as of this encounter Care Teams Senior Software Systems Engineer Relationship Specialty Start Date End Date Nelson Arroyo PA-C [address] [facility] [place] [address] PCP - General Physician Lithographic Photographer Apprentice - Medical 08/06/18 Salina Doherty MD Internal Medicine 12/01/14 Carrillo Ware APRN RN MATERNAL CHILD [address] [place] [address] Nurse Practitioner Nurse Practitioner 12/16/14 Angelica Jerez NP [facility] [address] [place] [address] Nurse Practitioner Nurse Practitioner - Family 07/12/16 Nelson Arroyo PA-C [address] [place] [address] Assigned PCP 07/30/20 Tank Bucio MD [address], [facility] [address] [place] [address] Physician library attendant 12/01/23 documented as of this encounter
--- OUTSIDE RECORDS SUMMARY | 2025-02-01 12:57 | XMS_ITS | Encounter Summary ---
Author Organization [place] Address [address] [place] [address]. [place] [address] Care Team Providers Care Meter Reading Clerk Name Role Phone Salina Doherty MD Unavailable Carrillo Ware APRN AUTOMOTIVE SERVICE TECHNICIAN Unavailable SolitarioAngelica goledn NP Unavailable [phone] Nelson Arroyo PA-C Unavailable Nelson Arroyo PA-C Primary Care Provider [phone] Chinyere Barbour Unavailable Unavailable Nelson Arroyo PA-C Unavailable Pietro Wills MD Unavailable Tank Bucio MD Unavailable Encounter Details Date Type Department Care Team (Late st Contact Info) Description 04/25/2020 [facility] [address] [address] Nelson Arroyo PA-C [address] [place] [address] Social History Tobacco Use Types [...] PM CDT Legal Sex Female 3:44 AM RF TECHNICIAN Gender Identity Female 10/03/2020 8:33 PM CDT Sexual Orientation Straight 07/01/2018 3: 40 PM RF TECHNICIAN documented as of this encounter Plan of Treatment Not on file documented as of this encounter Visit Diagnoses Not on filedocumented in this encounter Additional Health Concerns Assessment Noted Time PHQ-9 Depression Total Score: 5 03/03/20 20 7:03 AM CDT documented as of this encounter Care Teams Meter Reading Clerk Relationship Specialty Start Date End Date Nelson Arroyo PA-C [address] [place] [address] PCP - General Physician Accounting Support Specialist - Medical 08/06/18 Salina Doherty MD Internal Medicine 12/01/14 Carrillo Ware APRN AUTOMOTIVE SERVICE TECHNICIAN [address] [place] [address] [id number] Nurse Practitioner Nurse Practitioner 12/16/14 Angelica Jerez NP [place] [address] [place] [address] Nurse Practitioner Nurse Practitioner - Family 07/12/16 Nelson Arroyo PA-C [address] [address] [place] [address] Assigned PCP 07/05/18 07/29/20 Chinyere Barbour Personal Advocate & Liaison (PAL) 01/31/20 04/26/20 Nelson Arroyo PA-C [address] [place] [address] Assigned PCP 07/30/20 Pietro Wills MD [address] [place] [address] Assigned Heart and Vascular Provider 12/14/22 06/26/24 Tank Bucio MD [address] [facility] [address] [place] [address] Physician control panel operator 12/01/23 documented as of this encounter
--- OUTSIDE RECORDS SUMMARY | 2025-02-01 12:58 | XMS_ITS | Encounter Summary ---
Author Organization [place] Address [address] [place] [address] Care Team Providers Care Property And Equipment Clerk Name Role Phone Salina Doherty MD Unavailable [phone] Carrillo Ware APRN MEDIA THEORIST AND AUTHOR OF Unavailable Hillary Unger MD Primary Care P rovider [facility] NP Unavailable [phone] Nelson Arroyo PA-C Unavailable [phone] Hillary Unger MD Unavailable Hillary Unger MD Unavailable Hillary Unger MD Unavailable Nelson Arroyo PA-C Unavailable [phone] Nelson Arroyo PA-C Primary Care Provider [phone] Chinyere Barbour Unavailable Unavailable Nelson Arroyo PA-C Unavailable [phone] Pietro Wills MD Unavailable [phone] Tank Bucio MD Unavailable [phone] Encounter Details Date Type Department Care Team (Late st Contact Info) Description 12/12/2015 [facility] [address], [address] [place] [address] Zully Vidal APRN MEDIA THEORIST AND AUTHOR OF [address] [place] [address] Social History Tobacco Use Types Packs/Day Years [...] PM CDT Legal Sex Female 3:44 AM CHAIN OFFBEARER Gender Identity Female 10/03/2020 8:33 PM CDT Sexual Orientation Straight 07/01/2018 3: 40 PM CHAIN OFFBEARER documented as of this encounter Plan of Treatment Not on file documented as of this encounter Visit Diagnoses Not on filedocumented in this encounter Additional Health Concerns Assessment Noted Time PHQ-9 Depression Total Score: 5 09/19/19 16 7:14 AM CDT documented as of this encounter Care Teams Property And Equipment Clerk Relationship Specialty Start Date End Date Hillary Unger MD [address] [place] [address] PCP - General Internal Medicine 08/21/15 08/05/18 Nelson Arroyo PA-C [address] [place] [address] PCP - Assigned PCP 04/12/18 05/02/18 Hillary Unger MD [address] [place] [address] PCP - Assigned PCP 02/01/18 04/11/18 Hillary Unger MD [address] [place] [address] PCP - Assigned PCP 05/03/18 07/07/18 Nelson Arroyo PA-C [address] [place] [address] PCP - General Physician Forklift Supervisor - Medical 08/06/18 Salina Doherty MD Internal Medicine 12/01/14 Carrillo Ware APRN MEDIA THEORIST AND AUTHOR OF [address] [place] [address] Nurse Practitioner Nurse Practitioner 12/16/14 Angelica Jerez NP [facility] [address] [place], [place] [address] Nurse Practitioner Nurse Practitioner - Family 07/12/16 Hillary Unger MD [address] [place] [address] Assigned PCP 05/03/18 07/18/18 Nelson Arroyo PA-C [address] [place] [address] Assigned PCP 07/05/18 07/29/20 Chinyere Barbour Personal Advocate & Liaison (PAL) 01/31/20 04/26/20 Nelson Arroyo PA-C [address] [place] [address] Assigned PCP 07/30/20 Pietro Wills MD [address] [place] [address] Assigned Heart and Vascular Provider 12/14/22 06/26/24 Tank Bucio MD [address], [facility] [address] [place] [address] Physician boring machine operator horizontal 12/01/23 documented as of this encounter
--- OUTSIDE RECORDS SUMMARY | 2025-02-01 12:58 | XMS_ITS | Encounter Summary ---
Author Organization [place] Address [address] [place] [address] Care Team Providers Care Technology Education Teacher Name Role Phone Salina Doherty MD Unavailable [phone] Carrillo Ware APRN SENIOR INFORMATION SECURITY ARCHITECT Unavailable Hillary Unger MD Primary Care P rovider [facility] NP Unavailable [phone] Nelson Arroyo PA-C Unavailable [phone] Hillary Unger MD Unavailable Hillary Unger MD Unavailable Hillary Unger MD Unavailable Nelson Arroyo PA-C Unavailable [phone] Nelson Arroyo PA-C Primary Care Provider Chinyere Barbour Unavailable Unavailable Nelson Arroyo PA-C Unavailable [phone] Pietro Wills MD Unavailable [phone] Tank Bucio MD Unavailable [phone] Reason for Visit * Reason Onset Date Comments Refill Request 08/27/2017 tretinoin (RETIN -A) 0.05 % cream Encounter Details Date Type Department Care Team (Late st Contact Info) Description 08/27/2017 MyC Refill [facility], [address] [place] [address] Nelson Arroyo PA-C [address] [place] [address] Refill Request (tretinoin (RETIN-A) 0.05 %... 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 Gender Identity Female 10/03/2020 8:33 PM CDT Sexual Orientation Straight 07/01/2018 3: 40 PM HEALTH ECONOMIST documented as of this encounter Miscellaneous Notes [...] CDT Return Visit with Angelica Jerez NP [facility] [address] [place] [address] [address] [facility] [address] Sig: Spread a pea size [...] RN - 08/27/2017 3:13 PM CDTMessage from Attentiohart: Original authorizing provider: RO Choudhury would like a refill of the following medications: tretinoin (RETIN-A) 0.05 % cream [Nelson Arroyo PA-C] Preferred pharmacy: [facility] ([place], [place]) - [address] Comment: documented in this encounter Plan of Treatment Not on file documented as of this encounter Visit Diagnoses Diagnosis Acne, unspecified acne type documented in this encounter Additional Health Concerns Assessment Noted Time PHQ-9 Depression Total Score: 4 04/04/20 17 7:13 AM HEALTH ECONOMIST documented as of this encounter Care Teams Technology Education Teacher Relationship Specialty Start Date End Date Hillary Unger MD [address] [place], [place] [address] PCP - General Internal Medicine 08/21/15 08/05/18 Nelson Arroyo PA-C [address] [place] [address] PCP - Assigned PCP 04/12/18 05/02/18 Hillary Unger MD [address] [place], [place] 246227 PCP - Assigned PCP 02/01/18 04/11/18 Hillary Unger MD [address] [place] [address] PCP - Assigned PCP 05/03/18 07/07/18 Nelson Arroyo PA-C [address] [place] [address] PCP - General Physician Fullerette - Medical 08/06/18 Salina Doherty MD Internal Medicine 12/01/14 Carrillo Ware APRN SENIOR INFORMATION SECURITY ARCHITECT [address] [place] [address] [id number] Nurse Practitioner Nurse Practitioner 12/16/14 Angelica Jerez NP [facility] [address] [place], [place] 448[address] Nurse Practitioner Nurse Practitioner - Family 07/12/16 Hillary Unger MD [address] [place] [address] Assigned PCP 05/03/18 07/18/18 Nelson Arroyo PA-C [address] [address] Assigned PCP 07/05/18 07/29/20 Chinyere Barbour Personal Advocate & Liaison (PAL) 01/31/20 04/26/20 Nelson Arroyo PA-C [address] [place] [address] Assigned PCP 07/30/20 Pietro Wills MD [address] [place] [address] Assigned Heart and Vascular Provider 12/14/22 06/26/24 Tank Bucio MD [address] [facility] [address] [place] [address] Physician bellows tester 12/01/23 documented as of this encounter
--- OUTSIDE RECORDS SUMMARY | 2025-02-01 12:58 | XMS_ITS | Encounter Summary ---
Author Organization [place] Address [address] [place] [address] Care Team Providers Care Superintendent Seed Mill Name Role Phone Salina Doherty MD Unavailable [phone] Carrillo Ware APRN STRUCTURAL DESIGNER Unavailable Hillary Unger MD Primary Care P rovider [facility] NP Unavailable [phone] Nelson Arroyo PA-C Unavailable Hillary Unger MD Unavailable Hillary Unger MD Unavailable Hillary Unger MD Unavailable Nelson Arroyo PA-C Unavailable [phone] Nelson Arroyo PA-C Primary Care Provider Chinyere Barbour Unavailable Unavailable Nelson Arroyo PA-C Unavailable [phone] Pietro Wills MD Unavailable [phone] Tank Bucio MD Unavailable [phone] Reason for Visit * Reason Onset Date Comments Refill Request 03/02/2017 Encounter Details Date Type Department Care Team (Late st Contact Info) Description 03/02/2017 [facility] [address] [place] [address] Angelica Jerez FINANCING ANALYST [address] [place] [address] Refill Request Social History Tobacco Use Types [...] PM CDT 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 Gender Identity Female 10/03/2020 8:33 PM CDT Sexual Orientation Straight 07/01/2018 3: 40 PM LAUNDRY OPERATOR WASH ROOM documented as of this encounter Miscellaneous Notes [...] documented as of this encounter Care Teams Superintendent Seed Mill Relationship Specialty Start Date End Date Hillary Unger MD [address] [place] [address] PCP - General Internal Medicine 08/21/15 08/05/18 Nelson Arroyo PA-C [address] [place] [address] PCP - Assigned PCP 04/12/18 05/02/18 Hillary Unger MD [address] [place], [place] 0[address] PCP - Assigned PCP 02/01/18 04/11/18 Hillary Unger MD [address] [place] [address] PCP - Assigned PCP 05/03/18 07/07/18 Nelson Arroyo PA-C [address] [place] [address] PCP - General Physician Medical Record Specialist - Medical 08/06/18 Salina Doherty MD Internal Medicine 12/01/14 Carrillo Ware APRN STRUCTURAL DESIGNER [address] [place] [address] 670515 Nurse Practitioner Nurse Practitioner 12/16/14 Angelica Jerez NP [facility] [address] [place], [place] 140247 Nurse Practitioner Nurse Practitioner - Family 07/12/16 Hillary Unger MD [address] [place] [address] Assigned PCP 05/03/18 07/18/18 Nelson Arroyo PA-C [address] [place] [address] Assigned PCP 07/05/18 07/29/20 Chinyere Barbour Personal Advocate & Liaison (PAL) 01/31/20 04/26/20 Nelson Arroyo PA-C [address] [place] [address] Assigned PCP 07/30/20 Pietro Wills MD [address] [place] [address] Assigned Heart and Vascular Provider 12/14/22 06/26/24 Tank Bucio MD [address] [facility], [address] [address] Physician second crusher 12/01/23 documented as of this encounter
--- OUTSIDE RECORDS SUMMARY | 2025-02-01 12:58 | XMS_ITS | Encounter Summary ---
Author Organization [place] Address [address] [place] [address] Care Team Providers Care Respiratory Care Practitioner Name Role Phone Salina Doherty MD Unavailable [phone] Carrillo Ware APRN LEVERMAN Unavailable [phone] Hillary Unger MD Primary Care P rovider [facility] NP Unavailable [phone] Nelson Arroyo PA-C Unavailable [phone] Hillary Unger MD Unavailable Hillary Unger MD Unavailable Hillary Unger MD Unavailable Nelson Arroyo PA-C Unavailable [phone] Nelson Arroyo PA-C Primary Care Provider Chinyere Barbour Unavailable Unavailable Nelson Arroyo PA-C Unavailable [phone] Pietro Wills MD Unavailable [phone] Tank Bucio MD Unavailable [phone] Reason for Visit * Reason Onset Date Comments Refill Request 08/26/2017 Retin-A 0.05% cr eam Encounter Details Date Type Department Care Team (Late st Contact Info) Description 08/26/2017 MyC Refill [place] [address] [facility], [address] [place] [address] Nelson Arroyo PA-C [address] [place] [address] Refill Request (Retin-A 0.05% cream) Social History [...] PM CDT 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:44 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 Gender Identity Female 10/03/2020 8:33 PM CDT Sexual Orientation Straight 07/01/2018 3: 40 PM EMPLOYEE BENEFITS DIRECTOR documented as of this encounter Miscellaneous [...] CDT Return Visit with Angelica Jerez NP [facility] ([facility]) [address] [place] [address] [address] [facility] [address] Sig: Spread a pea [...] RN - 08/26/2017 5:23 PM CDTMessage from [facility]: Original authorizing provider: RO Choudhury would like a refill of the following medications: tretinoin (RETIN-A) 0.05 % cream [Nelson Arroyo PA-C] Preferred pharmacy: [facility] - [address] Comment: documented in this encounter Plan of Treatment Not on file documented as of this encounter Visit Diagnoses Diagnosis Acne, unspecified acne type documented in this encounter Additional Health Concerns Assessment Noted Time PHQ-9 Depression Total Score: 4 04/04/20 17 7:13 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 documented as of this encounter Care Teams Respiratory Care Practitioner Relationship Specialty Start Date End Date Hillary Unger [place] [address] PCP - General Internal Medicine 08/21/15 08/05/18 Nelson Arroyo PA-C [address] [facility] [address] PCP - Assigned PCP 04/12/18 05/02/18 Hillary Unger MD [address] [place] [address] PCP - Assigned PCP 02/01/18 04/11/18 Hillary Unger MD [address] [place] [address] PCP - Assigned PCP 05/03/18 07/07/18 Nelson Arroyo PA-C [address] [place] [id number] PCP - General Physician Ror Engineer - Medical 08/06/18 Salina Doherty MD Internal Medicine 12/01/14 Carrillo Ware APRN LEVERMAN [address] [place] [address] Nurse Practitioner Nurse Practitioner 12/16/14 Angelica Jerez NP [facility] [address] [place] [address] Nurse Practitioner Nurse Practitioner - Family 07/12/16 Hillary Unger MD [address] [place] [address] Assigned PCP 05/03/18 07/18/18 Nelson Arroyo PA-C [address] [place] [address] Assigned PCP 07/05/18 07/29/20 Chinyere Barbour Personal Advocate & Liaison (PAL) 01/31/20 04/26/20 Nelson Arroyo PA-C [address] [place] [address] Assigned PCP 07/30/20 Pietro Wills MD [address] [address] Assigned Heart and Vascular Provider 12/14/22 06/26/24 Tank Bucio MD [address] [facility], [address] [address] Physician tire bagger 12/01/23 documented as of this encounter
--- OUTSIDE RECORDS SUMMARY | 2025-02-01 12:58 | XMS_ITS | Encounter Summary ---
Author Organization [place] Address [address] [place] [address] Care Team Providers Care Electric Relay Tester Name Role Phone Salina Doherty MD Unavailable [phone] Carrillo Ware APRN RN ENDOCRINOLOGY Unavailable SolitarioAngelica golden NP Unavailable [phone] Nelson Arroyo PA-C Primary Care Provider Nelson Arroyo PA-C Unavailable [phone] Pietro Wills MD Unavailable [phone] Tank Bucio MD Unavailable [phone] Encounter Details Date Type Department Care Team (Late st Contact Info) Description 02/10/2023 [facility] Medical Advice [facility] [address] [place] [address] Sachi Barrera, RN Social History [...] PM CDT 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 Gender Identity Female 10/03/2020 8:33 PM CDT Sexual Orientation Straight 07/01/2018 3: 40 PM SHEET METAL WORKER HELPER documented as of this encounter Plan of Treatment Not on file documented as of this encounter Visit Diagnoses Not on filedocumented in this encounter Additional Health Concerns Assessment Noted Time PHQ-9 Depression Total Score: 6 08/16/19 23 12:42 PM CDT documented as of this encounter Care Teams Electric Relay Tester Relationship Specialty Start Date End Date Nelson Arroyo PA-C [address] [place] [address] PCP - General Physician Supervisor Doping - Medical 08/06/18 Salina Doherty MD Internal Medicine 12/01/14 Carrillo Ware APRN RN ENDOCRINOLOGY [address] [place] [address] 952525 Nurse Practitioner Nurse Practitioner 12/16/14 Angelica Jerez NP [address] 982947 Nurse Practitioner Nurse Practitioner - Family 07/12/16 Nelson Arroyo PA-C [address] [address] Assigned PCP 07/30/20 Pietro Wills MD [address] [address] Assigned Heart and Vascular Provider 12/14/22 06/26/24 Tank Bucio MD [address] [place] [address] [place] [address] Physician typewriter ribbon winder 12/01/23 documented as of this encounter
--- OUTSIDE RECORDS SUMMARY | 2025-02-01 12:58 | XMS_ITS | Encounter Summary ---
Author Organization [place] Address [address] [place] [address] Care Team Providers Care Hris Manager Name Role Phone Salina Doherty MD Unavailable [phone] Carrillo Ware APRN PEGA DEVELOPER Unavailable SolitarioAngelica golden NP Unavailable [phone] Nelson Arroyo PA-C Unavailable [phone] Nelson Arroyo PA-C Primary Care Provider Chinyere Barbour Unavailable Unavailable Nelson Arroyo PA-C Unavailable [phone] Pietro Wills MD Unavailable [phone] Tank Bucio MD Unavailable [phone] Encounter Details Date Type Department Care Team (Late st Contact Info) Description 04/29/2019 MyC Medical Advice [address], [address] [place] [address] Mariella Tamayo Social History Tobacco [...] PM CDT Legal Sex Female 3:44 AM CLIENT SPECIALIST Gender Identity Female 10/03/2020 8:33 PM CDT Sexual Orientation Straight 07/01/2018 3: 40 PM CLIENT SPECIALIST documented as of this encounter Plan of Treatment Not on file documented as of this encounter Visit Diagnoses Not on filedocumented in this encounter Additional Health Concerns Assessment Noted Time PHQ-9 Depression Total Score: 10 019 2:36 PM CDT documented as of this encounter Care Teams Hris Manager Relationship Specialty Start Date End Date Nelson Arroyo PA-C [address] [address] PCP - General Physician Continuous Improvement Coordinator - Medical 08/06/18 Salina Doherty MD Internal Medicine 12/01/14 Carrillo Ware APRN PEGA DEVELOPER [address] [place] [address] Nurse Practitioner Nurse Practitioner 12/16/14 Angelica Jerez NP [address] [address] Nurse Practitioner Nurse Practitioner - Family 07/12/16 Nelson Arroyo PA-C [address] [address] Assigned PCP 07/05/18 07/29/20 Chinyere Barbour Personal Advocate & Liaison (PAL) 01/31/20 04/26/20 Nelson Arroyo PA-C [address] [address] Assigned PCP 07/30/20 Pietro Wills MD [address] [place] [address] Assigned Heart and Vascular Provider 12/14/22 06/26/24 Tank Bucio MD [address] [facility] [address] [place] [address] Physician cone treater 12/01/23 documented as of this encounter
--- OUTSIDE RECORDS SUMMARY | 2025-02-01 12:58 | XMS_ITS | Encounter Summary ---
Author Organization [place] Address [address] [place] [address]. [place] [address] Care Team Providers Care Embedded Developer Name Role Phone Salina Doherty MD Unavailable Carrillo Ware APRN VIOLIN RESTORER Unavailable SolitarioAngelica golden NP Unavailable [phone] Nelson Arroyo PA-C Primary Care Provider Nelson Arroyo PA-C Unavailable Pietro Wills MD Unavailable Tank Bucio MD Unavailable Reason for Visit * Reason Onset Date Comments Refill Request 08/15/2022 Encounter Details Date Type Department Care Team (Late st Contact Info) Description 08/15/2022 MyC Refill [facility] [address] [place] [address] Nelson Arroyo PA-C [address] [place] [address] Refill Request Social History Tobacco [...] PM CDT 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:44 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 Gender Identity Female 10/03/2020 8:33 PM CDT Sexual Orientation Straight 07/01/2018 3: 40 PM MECHANISM ASSEMBLER COVID-19 Exposure Response Date Recorded In the [...] for review/approval because: Drug not on the [facility] refill protocol Ashely Naylor RN documented in this encounter Plan of Treatment Not on file documented as of this encounter Visit Diagnoses Diagnosis Muscle spasm Spasm of muscle documented in this encounter Additional Health Concerns Assessment Noted Time PHQ-9 Depression Total Score: 6 08/16/19 23 12:42 PM CDT documented as of this encounter Care Teams Embedded Developer Relationship Specialty Start Date End Date Nelson Arroyo PA-C [address] [place] [address] PCP - General Physician Field Recorder - Medical 08/06/18 Salina Doherty MD Internal Medicine 12/01/14 Carrillo Ware APRN VIOLIN RESTORER [address] [place] [address] Nurse Practitioner Nurse Practitioner 12/16/14 Angelica Jerez NP [place] [address] [place] [address] Nurse Practitioner Nurse Practitioner - Family 07/12/16 Nelson Arroyo PA-C [address] [place] [address] Assigned PCP 07/30/20 Pietro Wills MD [address] [place] [address] Assigned Heart and Vascular Provider 12/14/22 06/26/24 Tank Bucio MD [address] [facility] [address] [place] [address] Physician lead section supervisor 12/01/23 documented as of this encounter
--- OUTSIDE RECORDS SUMMARY | 2025-02-01 12:58 | XMS_ITS | Encounter Summary ---
Author Organization [place] Address [address] [place] [address] Care Team Providers Care Bank Teller Name Role Phone Salina Doherty MD Unavailable [phone] Carrillo Ware APRN AUDIO VISUAL PRODUCTION SPECIALIST Unavailable [phone] Hillary Unger MD Primary Care P rovider Nelson Arroyo PA-C Primary Care Provider [phone] Hillary Unger MD Primary Care P rovider Angelica Jerez NP Unavailable [phone] Nelson Arroyo PA-C Unavailable [phone] Hillary Unger MD Unavailable Hillary Unger MD Unavailable Hillary Unger MD Unavailable Nelson Arroyo PA-C Unavailable [phone] Nelson Arroyo PA-C Primary Care Provider +[phone] Chinyere Barbour Unavailable Unavailable Nelson Arroyo PA-C Unavailable [phone] Pietro Wills MD Unavailable [phone] Tank Bucio MD Unavailable [phone] Reason for Visit * Reason Onset Date Comments Refill Request 07/31/2015 Seroquel 25mg Encounter Details Date Type Department Care Team (Late st Contact Info) Description 07/31/2015 MyC Refill [address], [address] [place] [address] Nelson Arroyo PA-C [address] [place] [address] Refill Request (Seroquel 25mg) 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 Sex Female 3:44 AM MOLD DESIGN ENGINEER Gender Identity Female 10/03/2020 8:33 PM CDT Sexual Orientation Straight 07/01/2018 3: 40 PM MOLD DESIGN ENGINEER documented as of this encounter Miscellaneous Notes * Telephone Encounter - Maude Singh RN - 08/01/2015 10:35 AM CDT Last rx for Seroquel was written 07/11/2015 #30 with 1 refill and sent to pharmacy. Patient should have 1 refill remaining. Maude Singh RN * Telephone Encounter - Maude Singh RN - 08/01/2015 10:29 AM CDTMessage from [facility]: Original authorizing provider: RO Choudhury would like a refill of the following medications: QUEtiapine (SEROQUEL) 25 MG tablet [Nelson Arroyo PA-C] Preferred pharmacy: [facility] [address] [place] [address] ROGELIO HERNANDEZ Comment: Medication renewals requested in [...] Total Score: 6 06/28/19 16 8:10 AM MOLD DESIGN ENGINEER documented as of this encounter Care Teams Bank Teller Relationship Specialty Start Date End Date Hillary Unger MD [address] [place] [address] PCP - General Internal Medicine 01/05/15 08/02/15 Nelson Arroyo PA-C [address] [place] [address] PCP - General Physician Routing Machine Operator - Medical 08/03/15 08/20/15 Hillary Unger MD [address] [place] [address] PCP - General Internal Medicine 08/21/15 08/05/18 Nelson Arroyo PA-C [address] [address] PCP - Assigned PCP 04/12/18 05/02/18 Hillary Unger MD [address] [place] [address] PCP - Assigned PCP 02/01/18 04/11/18 Hillary Unger MD [address] [place], [place] 048117 PCP - Assigned PCP 05/03/18 07/07/18 Nelson Arroyo PA-C [address] [place] [address] PCP - General Physician Routing Machine Operator - Medical 08/06/18 Salina Doherty MD Internal Medicine 12/01/14 Carrillo Ware APRN AUDIO VISUAL PRODUCTION SPECIALIST [address] [place] [address] 067835 Nurse Practitioner Nurse Practitioner 12/16/14 Angelica Jerez NP [facility] [address] [place], [place] [address] Nurse Practitioner Nurse Practitioner - Family 07/12/16 Hillary Unger MD [address] [place] [address] Assigned PCP 05/03/18 07/18/18 Nelson Arroyo PA-C [address] [address] Assigned PCP 07/05/18 07/29/20 Chinyere Barbour Personal Advocate & Liaison (PAL) 01/31/20 04/26/20 Nelson Arroyo PA-C [address] [place] [address] Assigned PCP 07/30/20 Pietro Wills MD [address] [place] [address] Assigned Heart and Vascular Provider 12/14/22 06/26/24 Tank Bucio MD [address] [facility] [address] [place] [address] Physician printing equipment mechanic apprentice 12/01/23 documented as of this encounter
--- OUTSIDE RECORDS SUMMARY | 2025-02-01 12:58 | XMS_ITS | Encounter Summary ---
Author Organization [facility] Address [address] [place] [address] Care Team Providers Care Change Lead Name Role Phone Salina Doherty MD Unavailable [phone] Carrillo Ware APRN CARGO SUPERVISOR Unavailable Hillary Unger MD Primary Care P rovider Nelson Arroyo PA-C Primary Care Provider +[phone] Hillary Unger MD Primary Care P rovider Angelica Jerez NP Unavailable [phone] Nelson Arroyo PA-C Unavailable [phone] Hillary Unger MD Unavailable Hillary Unger MD Unavailable Hillary Unger MD Unavailable Nelson Arroyo PA-C Unavailable [phone] Nelson Arroyo PA-C Primary Care Provider +1- Chinyere Barbour Unavailable Unavailable Nelson Arroyo PA-C Unavailable [phone] Pietro Wills MD Unavailable [phone] Tank Bucio MD Unavailable + [phone] Reason for Visit * Reason Onset Date Comments Refill Request 02/07/2015 Encounter Details Date Type Department Care Team (Late st Contact Info) Description 02/07/[address] [facility] [address] [place] [address] Hillary Unger MD [address] [place] [address] Refill Request Social History Tobacco Use Types Packs/Day Years Used Date Smoking Tobacco: Every Day Cigarettes 0.5 12.7 Started: 06/05/2012 Smokeless Tobacco: Never Quit: 06/01/2014 Comments:Started 17 y/o Alcohol Use Standard Drinks/Week Comments Yes 0 (1 standard drink = 0.6 oz pur e alcohol) Once week, 2x week Comments No Sex and Gender Information Value Date Recorded Sex Assigned at Female 10/03/2020 8:33 PM CDT Legal Sex Female 3:44 AM CLIENT ENGAGEMENT SPECIALIST Gender Identity Female 10/03/2020 8:33 PM CDT Sexual Orientation Straight 07/01/2018 3: 40 PM CLIENT ENGAGEMENT SPECIALIST documented as of this encounter Plan of Treatment Not on file documented as of this encounter Visit Diagnoses Not on filedocumented in this encounter Care Teams Change Lead Relationship Specialty Start Date End Date Hillary Unger MD [address] [place] [address] PCP - General Internal Medicine 01/05/15 08/02/15 Nelson Arroyo PA-C [address] [place] [address] PCP - General Physician Costume Shop Manager - Medical 08/03/15 08/20/15 Hillary Unger MD [address] [place] [address] PCP - General Internal Medicine 08/21/15 08/05/18 Nelson Arroyo PA-C [address] [place] [address] PCP - Assigned PCP 04/12/18 05/02/18 Hillary Unger MD [address] [place], [place] [address] PCP - Assigned PCP 02/01/18 04/11/18 Hillary Unger MD [address] [place] [address] PCP - Assigned PCP 05/03/18 07/07/18 Nelson Arroyo PA-C [address] [place] [address] PCP - General Physician Costume Shop Manager - Medical 08/06/18 Salina Doherty MD Internal Medicine 12/01/14 Carrillo Ware APRN CARGO SUPERVISOR [address] [place] [address]115 Nurse Practitioner Nurse Practitioner 12/16/14 Angelica Jerez NP [facility] [address] [place], [place] [address] Nurse Practitioner Nurse Practitioner - Family 07/12/16 Hillary Unger MD [address] [facility] [place] [address] Assigned PCP 05/03/18 07/18/18 Nelson Arroyo PA-C [address] [address] Assigned PCP 07/05/18 07/29/20 Chinyere Barbour Personal Advocate & Liaison (PAL) 01/31/20 04/26/20 Nelson Arroyo PA-C [address] [address] Assigned PCP 07/30/20 Pietro Wills MD [address] [place] [address] Assigned Heart and Vascular Provider 12/14/22 06/26/24 Tank Bucio MD [address], [address] [address] Physician patient appointment coordinator 12/01/23 documented as of this encounter
--- OUTSIDE RECORDS SUMMARY | 2025-02-01 12:58 | XMS_ITS | Encounter Summary ---
Author Organization [facility] Address [address] [place] [address] Care Team Providers Care Direct Care Professional Name Role Phone Salina Doherty MD Unavailable [phone] Carrillo Ware APRN STOCK MOVER Unavailable Hillary Unger MD Primary Care P rovider Nelson Arroyo PA-C Primary Care Provider +[phone]- Hillary Unger MD Primary Care P rovider Angelica Jerez NP Unavailable [phone] Nelson Arroyo PA-C Unavailable [phone] Hillary Unger MD Unavailable Hillary Unger MD Unavailable Hillary Unger MD Unavailable Nelson Arroyo PA-C Unavailable [phone] Nelson Arroyo PA-C Primary Care Provider +1- Chinyere Barbour Unavailable Unavailable Nelson Arroyo PA-C Unavailable [phone] Pietro Wills MD Unavailable [phone] Tank Bucio MD Unavailable + [phone] Reason for Visit * Reason Onset Date Comments Refill Request 07/31/2015 Encounter Details Date Type Department Care Team (Late st Contact Info) Description 07/31/2015 MyC Refill [facility] [address] [place] [address] Hillary Unger MD [address] [place] [address] Refill Request Social History Tobacco Use Types [...] PM CDT Legal Sex Female 3:44 AM PULLMAN CAR CLERK Gender Identity Female 10/03/2020 8:33 PM CDT Sexual Orientation Straight 07/01/2018 3: 40 PM PULLMAN CAR CLERK documented as of this encounter Miscellaneous [...] MG tablet [Hillary Unger MD] Preferred pharmacy: [address] [address] [address] HERNANDEZ Comment: Medication renewals requested in [...] Total Score: 6 06/28/19 16 8:10 AM PULLMAN CAR CLERK documented as of this encounter Care Teams Direct Care Professional Relationship Specialty Start Date End Date Hillary Unger MD [address] [place] [address] PCP - General Internal Medicine 01/05/15 08/02/15 Nelson Arroyo PA-C [address] [place], [place] [address] PCP - General Physician Tobacco Stemmer - Medical 08/03/15 08/20/15 Hillary Unger MD [address] [place] [address] PCP - General Internal Medicine 08/21/15 08/05/18 Nelson Arroyo PA-C [address] [facility] [place] [address] PCP - Assigned PCP 04/12/18 05/02/18 Hillary Unger MD [address] [place] [address] PCP - Assigned PCP 02/01/18 04/11/18 Hillary Unger MD [address] [place] [address] PCP - Assigned PCP 05/03/18 07/07/18 Nelson Arroyo PA-C [address] [place] [address] PCP - General Physician Tobacco Stemmer - Medical 08/06/18 Salina Doherty MD Internal Medicine 12/01/14 Carrillo Ware APRN CNP [address] [place] [address] Nurse Practitioner Nurse Practitioner 12/16/14 Angelica Jerez NP [facility] [address] [place] [address] Nurse Practitioner Nurse Practitioner - Family 07/12/16 Hillary Unger MD [address] [place] [address] Assigned PCP 05/03/18 07/18/18 Nelson Arroyo [place]-C [address] [place] [address] Assigned PCP 07/05/18 07/29/20 Chinyere Barbour Personal Advocate & Liaison (PAL) 01/31/20 04/26/20 Nelson Arroyo PA-C [address] [id number] Assigned PCP 07/30/20 Pietro Wills MD [address] [place] [address] Assigned Heart and Vascular Provider 12/14/22 06/26/24 Tank Bucio MD [address] [facility] [address] [place] [address] Physician supervisor scrap preparation 12/01/23 documented as of this encounter
--- OUTSIDE RECORDS SUMMARY | 2025-02-01 12:58 | XMS_ITS | Encounter Summary ---
Author Organization [facility] Address [address] [place] [address] Care Team Providers Care Moving Van Driver Name Role Phone Salina Doherty MD Unavailable [phone] Carrillo Ware APRN TECHNICAL ANALYST Unavailable [phone] Hillary Unger MD Primary Care P rovider [facility] NP Unavailable [phone] Nelson Arroyo PA-C Unavailable [phone] Hillary Unger MD Unavailable Hillary Unger MD Unavailable Hillary Unger MD Unavailable Nelson Arroyo PA-C Unavailable [phone] Nelson Arroyo PA-C Primary Care Provider [phone] Chinyere Barbour Unavailable Unavailable Nelson Arroyo PA-C Unavailable [phone] Pietro Wills MD Unavailable [phone] Tank Bucio MD Unavailable + [phone] Reason for Referral * Nutrition - Closed Specialty Diagnoses / Procedures Referred By Contandrew t Referred To Contact Diagnoses Overweight Nelson Arroyo PA-C Phone: tel: fax: Referral ID Status Reason Start Date Expiration Date Visits Re quested Visits Authorized [id number] Closed 08/24/2015 08/23/2016 1 1 Question Answer Nutritional instruct Weight Loss - Overweight/Obesity Comments Your provider has referred you to: FMG: [facility] [place] [email or web address] Please be aware that coverage of these [...] Contact Info) Description 08/23/2015 MyC Medical Advice [address], [address] [place] [address] Nelson Arroyo PA-C [address] [place] [address] Nutrition Counseling (Appetite) Social History Tobacco Use [...] CDT Legal Sex Female 3:44 AM LEGAL ADMINISTRATOR Gender Identity Female 10/03/2020 8:33 PM CDT Sexual Orientation Straight 07/01/2018 3: 40 PM LEGAL ADMINISTRATOR documented as of this encounter Plan of Treatment Scheduled Referrals Name Type Priority Associated Diagnoses Orde r Schedule NUTRITION REFERRAL Referral Routine Overweight Ordered: 08/24/2015 documented as of this encounter Visit Diagnoses Diagnosis Overweight- Primary documented in this encounter Additional Health Concerns Assessment Noted Time PHQ-9 Depression Total Score: 6 06/28/19 16 8:10 AM LEGAL ADMINISTRATOR documented as of this encounter Care Teams Moving Van Driver Relationship Specialty Start Date End Date Hillary Unger MD [address] [place] [address] PCP - General Internal Medicine 08/21/15 08/05/18 Nelson Arroyo PA-C [address] [place] [address] PCP - Assigned PCP 04/12/18 05/02/18 Hillary Unger MD [address] [place] [address] PCP - Assigned PCP 02/01/18 04/11/18 Hillary Unger MD [address] [facility] [place] [address] PCP - Assigned PCP 05/03/18 07/07/18 Nelson Arroyo PA-C [address] [place] [address] PCP - General Physician Bonded Strand Operator - Medical 08/06/18 Salina Doherty MD Internal Medicine 12/01/14 Carrillo Ware APRN CNP [address] [place] [address] Nurse Practitioner Nurse Practitioner 12/16/14 Angelica Jerez NETWORK OPERATIONS MANAGER [facility] [address] [place] [address] Nurse Practitioner Nurse Practitioner - Family 07/12/16 Hillary Unger MD [address] [place] [address] Assigned PCP 05/03/18 07/18/18 Nelson Arroyo PA-C [address] [place] [address] Assigned PCP 07/05/18 07/29/20 Chinyere Barbour Personal Advocate & Liaison (PAL) 01/31/20 04/26/20 Nelson Arroyo PA-C [address] [place] [address] Assigned PCP 07/30/20 Pietro Wills MD [address] [place] [address] Assigned Heart and Vascular Provider 12/14/22 06/26/24 Tank Bucio MD [address], [facility] [address] [place] [address] Physician binding stitcher 12/01/23 documented as of this encounter
--- OUTSIDE RECORDS SUMMARY | 2025-02-01 12:58 | XMS_ITS ---
Author Organization [facility] Source Produ ction (ClinicalSummary Clone) Address Unknown Care Team Providers Care Automatic Pad Making Machine Operator Name Role Phone Unavailable Primary Care Physician Unavailab le Results * [UNITY] ANEUPLOIDY NIPT Performed by: [email or web address] Component Value Range Date Fraction 9.5% 07/17/2024 05 :50 am UTC Rh(D) NIPT RhD DETECTED 07/17/2024 05:5 0 am UTC Sex Chromosome Aneuploidy NOT DETECTED 05:50 am UTC Monosomy X LOW RISK <1 in 10,000 2024 05:50 am UTC Trisomy 13 LOW RISK <1 in 10,000 2024 05:50 am UTC Trisomy 18 LOW RISK <1 in 10,000 2024 05:50 am UTC Trisomy 21 LOW RISK <1 in 10,000 2024 05:50 am UTC Sex NOT ORDERED 07/17/2024 05:5 0 am UTC Gestation PEPE 07/18/19 05:50 am UTC For detailed report, see PDF See PDF 07/17/2024 05:50 am UTC 07/17/2024 05:5 0 am UTC Social History Observation Value Start Date End Date
--- OUTSIDE RECORDS SUMMARY | 2025-02-01 12:58 | XMS_ITS | Encounter Summary ---
Author Organization [facility] Address [address] [place] [address] Care Team Providers Care Heel Finisher Name Role Phone Salina Doherty MD Unavailable Carrillo Ware APRN CASING WRINGER OPERATOR Unavailable [phone] SolitarioAngelica golden NP Unavailable [phone] Nelson Arroyo PA-C Primary Care Provider Nelson Arroyo PA-C Unavailable [phone] Pietro Wills MD Unavailable [phone] Tank Bucio MD Unavailable [phone] Encounter Details Date Type Department Care Team (Late st Contact Info) Description 10/30/2022 MyC Medical Advice [address] [address] Amanda Unger Social History Tobacco [...] PM CDT Legal Sex Female 3:44 AM VOCATIONAL REHABILITATION SUPERVISOR Gender Identity Female 10/03/2020 8:33 PM CDT Sexual Orientation Straight 07/01/2018 3: 40 PM VOCATIONAL REHABILITATION SUPERVISOR documented as of this encounter Plan of Treatment Not on file documented as of this encounter Visit Diagnoses Not on filedocumented in this encounter Additional Health Concerns Assessment Noted Time PHQ-9 Depression Total Score: 6 08/16/19 23 12:42 PM CDT documented as of this encounter Care Teams Heel Finisher Relationship Specialty Start Date End Date Nelson Arroyo PA-C [address] [place] [address] PCP - General Physician Yard Engineer - Medical 08/06/18 Salina Doherty MD Internal Medicine 12/01/14 Carrillo Ware APRN CASING WRINGER OPERATOR [address] [place] [address] Nurse Practitioner Nurse Practitioner 12/16/14 Angelica Jerez NP [facility] [address] [place], [place] [address] Nurse Practitioner Nurse Practitioner - Family 07/12/16 Nelson Arroyo PA-C [address] [place] [address] Assigned PCP 07/30/20 Pietro Wills MD [address] [place] [address] Assigned Heart and Vascular Provider 12/14/22 06/26/24 Tank Bucio MD [address] [address] Physician core maker 12/01/23 documented as of this encounter
--- OUTSIDE RECORDS SUMMARY | 2025-02-01 12:58 | XMS_ITS | Encounter Summary ---
Author Organization [facility] Address [address] [place] [address] Care Team Providers Care Drug Abuse Social Worker Name Role Phone Salina Doherty MD Unavailable [phone] Carrillo Ware APRN SET AND EXHIBIT DESIGNER Unavailable [phone] Hillary Unger MD Primary Care P rovider [facility] NP Unavailable [phone] Nelson Arroyo PA-C Unavailable Hillary Unger MD Unavailable Hillary Unger MD Unavailable Hillary Unger MD Unavailable Nelson Arroyo PA-C Unavailable [phone] Nelson Arroyo PA-C Primary Care Provider Chinyere Barbour Unavailable Unavailable Nelson Arroyo PA-C Unavailable [phone] Pietro Wills MD Unavailable [phone] Tank Bucio MD Unavailable [phone] Reason for Visit * Reason Onset Date Comments Refill Request 03/21/2017 Encounter Details Date Type Department Care Team (Late st Contact Info) Description 03/21/2017 [facility] [address] [place] [address] Angelica Jerez, MANAGER JAVA [address] [place], [place] [id number] Refill Request Social History Tobacco Use Types [...] CDT Legal Sex Female 3:44 AM GRILL ASSOCIATE Gender Identity Female 10/03/2020 8:33 PM CDT Sexual Orientation Straight 07/01/2018 3: 40 PM GRILL ASSOCIATE documented as of this encounter Plan of Treatment Not on file documented as of this encounter Visit Diagnoses Diagnosis SHANTELL (generalized anxiety disorder) Generalized anxiety disorder Persistent insomnia Persistent disorder of initiating or maintaining sleep documented in this encounter Additional Health Concerns Assessment Noted Time PHQ-9 Depression Total Score: 3 12/07/19 17 2:21 PM CDT documented as of this encounter Care Teams Drug Abuse Social Worker Relationship Specialty Start Date End Date Hillary Unger MD [address] [place] [address] PCP - General Internal Medicine 08/21/15 08/05/18 Nelson Arroyo PA-C [address] [place] [address] PCP - Assigned PCP 04/12/18 05/02/18 Hillary Unger MD [address] [place] [address] PCP - Assigned PCP 02/01/18 04/11/18 Hillary Unger MD [address] [place] [address] PCP - Assigned PCP 05/03/18 07/07/18 Nelson Arroyo PA-C [address], [place] [address] PCP - General Physician Sheet Metal Lay Out Worker - Medical 08/06/18 Salina Doherty MD Internal Medicine 12/01/14 Carrillo Ware APRN SET AND EXHIBIT DESIGNER [address] [place] [address]1755 Nurse Practitioner Nurse Practitioner 12/16/14 Angelica Jerez NP [facility] [address] [place] [address] Nurse Practitioner Nurse Practitioner - Family 07/12/16 Hillary Unger MD [address] [place] [address] Assigned PCP 05/03/18 07/18/18 Nelson Arroyo PA-C [address] [address] Assigned PCP 07/05/18 07/29/20 Chinyere Barbour Personal Advocate & Liaison (PAL) 01/31/20 04/26/20 Nelson Arroyo PA-C [address] [address] [address] Assigned PCP 07/30/20 Pietro Wills MD [address] [place] [address] Assigned Heart and Vascular Provider 12/14/22 06/26/24 Tank Bucio MD [address], [facility] [address] [place] [address] Physician adjunct professor of [employer] 12/01/23 documented as of this encounter
--- OUTSIDE RECORDS SUMMARY | 2025-02-01 12:58 | XMS_ITS | Encounter Summary ---
Author Organization [facility] Address [address] [place] [address] Care Team Providers Care Golf Ball Winder Name Role Phone Salina Doherty MD Unavailable [phone] Carrillo Ware APRN CRISIS WORKER Unavailable [phone] Hillary Unger MD Primary Care P rovider [facility] NP Unavailable [phone] Nelson Arroyo PA-C Unavailable Hillary Unger MD Unavailable Hillary Unger MD Unavailable Hillary Unger MD Unavailable Nelson Arroyo PA-C Unavailable [phone] Nelson Arroyo PA-C Primary Care Provider Chinyere Barbour Unavailable Unavailable Nelson Arroyo PA-C Unavailable [phone] Pietro Wills MD Unavailable [phone] Tank Bucio MD Unavailable Reason for Visit * Reason Onset Date Comments Refill Request 10/25/2015 Seroquel 25mg Encounter Details Date Type Department Care Team (Late st Contact Info) Description 10/25/2015 MyC Refill [facility] [address], [address] [place] [id number] Nelson Arroyo PA-C [address] [place], [place] [address] Refill Request (Seroquel 25mg) Social History Tobacco [...] PM CDT Legal Sex Female 3:44 AM FIELD REPRESENTATIVES DIRECTOR Gender Identity Female 10/03/2020 8:33 PM CDT Sexual Orientation Straight 07/01/2018 3: 40 PM FIELD REPRESENTATIVES DIRECTOR documented as of this encounter Miscellaneous Notes * Telephone Encounter - Maude Singh RN - 10/25/2015 4:20 PM CDT Seroquel 25mg Last Written Prescription Date: 09/26/2015 Last Fill Quantity: 60, # refills: 2 Last Office Visit with [facility] or [facility] prescribing provider: 09/18/2015 [facility] 70 08/03/2015 BP [...] RN - 10/25/2015 4:19 PM [facility]TMessage [facility] Original authorizing provider: RO Choudhury would like a refill of the following medications: QUEtiapine (SEROQUEL) 25 MG tablet [Nelson Arroyo PA-C] Preferred pharmacy: [address] Comment: Medication renewals requested in this [...] documented as of this encounter Care Teams Golf Ball Winder Relationship Specialty Start Date End Date Hillary Unger MD [address] [place] [address] PCP - General Internal Medicine 08/21/15 08/05/18 Nelson Arroyo PA-C [address] [place] [address] PCP - Assigned PCP 04/12/18 05/02/18 Hillary Unger MD [address] [place] [address] PCP - Assigned PCP 02/01/18 04/11/18 Hillary Unger MD [address] [place] [address] PCP - Assigned PCP 05/03/18 07/07/18 Nelson Arroyo PA-C [address] [place] [address] PCP - General Physician Commercial Internship - Medical 08/06/18 Salina Doherty MD Internal Medicine 12/01/14 Carrillo Ware APRN CRISIS WORKER [address] [place] [address] Nurse Practitioner Nurse Practitioner 12/16/14 Angelica Jerez NP [facility] [address] [place], [place] [address] Nurse Practitioner Nurse Practitioner - Family 07/12/16 Hillary Unger MD [address] [place] [address] Assigned PCP 05/03/18 07/18/18 Nelson Arroyo PA-C [address] [place] [place] [address] Assigned PCP 07/05/18 07/29/20 Chinyere Barbour Personal Advocate & Liaison (PAL) 01/31/20 04/26/20 Nelson Arroyo PA-C [address] [place] [address] Assigned PCP 07/30/20 Pietro Wills MD [address] [place] [address] Assigned Heart and Vascular Provider 12/14/22 06/26/24 Tank Bucio MD [address], [address] [address] Physician tax evaluator 12/01/23 documented as of this encounter
--- OUTSIDE RECORDS SUMMARY | 2025-02-01 12:58 | XMS_ITS | Encounter Summary ---
Author Organization [facility] Address [address] [place] [address]. [place] [address] Care Team Providers Care Hand I Blocker Name Role Phone Salina Doherty MD Unavailable [phone] Carrillo Ware APRN SPORTS PHYSIOTHERAPIST Unavailable SolitarioAngelica golden NP Unavailable [phone] Nelson Arroyo PA-C Primary Care Provider Nelson Arroyo PA-C Unavailable Pietro Wills MD Unavailable [phone] Tank Bucio MD Unavailable Reason for Visit * Reason Comments Medication Refill Encounter Details Date Type Department Care Team (Late st Contact Info) Description 11/08/2022 Refill [facility] [address] [place] [address] Nleson Arroyo PA-C [address] [place] [address] Medication Refill Social History Tobacco [...] PM CDT Legal Sex Female 3:44 AM GUMMED TAPE PRESS OPERATOR Gender Identity Female 10/03/2020 8:33 PM CDT Sexual Orientation Straight 07/01/2018 3: 40 PM GUMMED TAPE PRESS OPERATOR documented as of this encounter [...] [facility] refill protocol Rae Hernandez RN, BSN [facility] documented in this encounter Plan of Treatment Not on file documented as of this encounter Visit Diagnoses Diagnosis Muscle spasm Spasm of muscle documented in this encounter Additional Health Concerns Assessment Noted Time PHQ-9 Depression Total Score: 6 08/16/19 23 12:42 PM CDT documented as of this encounter Care Teams Hand I Blocker Relationship Specialty Start Date End Date Nelson Arroyo PA-C [address] [place] [address] PCP - General Physician Care Nurse Rn - Medical 08/06/18 Salina Doherty MD Internal Medicine 12/01/14 Carrillo Ware APRN SPORTS PHYSIOTHERAPIST NPI: [id number] [place] [address] Nurse Practitioner Nurse Practitioner 12/16/14 Angelica Jerez NP [facility] [address] [place] [address] Nurse Practitioner Nurse Practitioner - Family 07/12/16 Nelson Arroyo PA-C [address] [place] [address] Assigned PCP 07/30/20 Pietro Wills MD [address] [place] [address] Assigned Heart and Vascular Provider 12/14/22 06/26/24 Tank Bucio MD [address] [facility] [address] [place] [address] Physician conductor pullman 12/01/23 documented as of this encounter
--- OUTSIDE RECORDS SUMMARY | 2025-02-01 12:58 | XMS_ITS | Encounter Summary ---
Author Organization [facility] Address [address] [place] [address] Care Team Providers Care Felt Finishing Supervisor Name Role Phone Salina Doherty MD Unavailable [phone] Carrillo Ware APRN TRUSS DESIGNER Unavailable [phone] Hillary Unger MD Primary Care P rovider Nelson Arroyo PA-C Primary Care Provider +[phone]- Hillary Unger MD Primary Care P rovider Angelica Jerez NP Unavailable [phone] Nelson Arroyo PA-C Unavailable [phone] Hillary Unger MD Unavailable Hillary Unger MD Unavailable Hillary Unger MD Unavailable Nelson Arroyo PA-C Unavailable +[phone] Nelson Arroyo PA-C Primary Care Provider +1- Chinyere Barbour Unavailable Unavailable Nelson Arroyo PA-C Unavailable [phone] Pietro Wills MD Unavailable [phone] Tank Bucio MD Unavailable + [phone] Reason for Visit * Reason Onset Date Comments MyChart Communication 06/21/2015 Emergency Contraceptive Encounter Details Date Type Department Care Team (Late st Contact Info) Description 06/21/2015 MyC Medical Advice [address], [address] [place] [address] Nelson Arroyo PA-C [address] [employer] [address] MyChart Communication (Emergency Contracep... Social [...] PM CDT Legal Sex Female 3:44 AM ANTIQUE DEALER Gender Identity Female 10/03/2020 8:33 PM CDT Sexual Orientation Straight 07/01/2018 3: 40 PM ANTIQUE DEALER documented as of this encounter Miscellaneous Notes * Telephone Encounter - Juana See RN - 06/21/2015 8:10 AM CST Hi Twyla, There is an over the counter emergency contraceptive pill called Plan B available that you can chicken picker without a prescription. The sooner you [...] have any further questions. Kesha Tovar RN QUE DEALER documented in this encounter Plan of Treatment Not on file documented as of this encounter Visit Diagnoses Not on filedocumented in this encounter Care Teams Felt Finishing Supervisor Relationship Specialty Start Date End Date CriHillary Juan MD [address] [place] [address] PCP - General Internal Medicine 01/05/15 08/02/15 Nelson Arroyo PA-C [address] [place] [address] PCP - General Physician Manager Terminal - Medical 08/03/15 08/20/15 Hillary Unger MD [address] [place] [address] PCP - General Internal Medicine 08/21/15 08/05/18 Nelson Arroyo PA-C [address] [address] PCP - Assigned PCP 04/12/18 05/02/18 Hillary Unger MD [address] [place] [address] PCP - Assigned PCP 02/01/18 04/11/18 Hillary Unger MD [address] [place] [address] PCP - Assigned PCP 05/03/18 07/07/18 Nelson Arroyo PA-C [address] [address] PCP - General Physician Manager Terminal - Medical 08/06/18 Salina Doherty MD Internal Medicine 12/01/14 Carrillo Ware APRN TRUSS DESIGNER [address] [place] [address]45 Nurse Practitioner Nurse Practitioner 12/16/14 Angelica Jerez THEATRICAL DRESSER [facility] [address] [place], [place] [address] Nurse Practitioner Nurse Practitioner - Family 07/12/16 Hillary Unger MD [address] [place], [place] [address] Assigned PCP 05/03/18 07/18/18 Nelson Arroyo PA-C [address] [place] [address] Assigned PCP 07/05/18 07/29/20 Chinyere Barbour Personal Advocate & Liaison (PAL) 01/31/20 04/26/20 Nelson Arroyo PA-C [address] [place] [address] Assigned PCP 07/30/20 Pietro Wills MD [address] [place] [address] Assigned Heart and Vascular Provider 12/14/22 06/26/24 Tank Bucio MD [address] [facility], [address] [address] Physician manager dialysis 12/01/23 documented as of this encounter
--- OUTSIDE RECORDS SUMMARY | 2025-02-01 12:58 | XMS_ITS | Encounter Summary ---
Author Organization [facility] Address [address] [place] [address] Care Team Providers Care Medical Scientist Name Role Phone Salina Doherty MD Unavailable [phone] Carrillo Ware APRN TABLE MACHINE OPERATOR Unavailable [phone] Hillary Unger MD Primary Care P rovider [facility] NP Unavailable [phone] Nelson Arroyo PA-C Unavailable [phone] CriHillary Juan MD Unavailable CriHillary Juan MD Unavailable CrinteaHillary Toledo MD Unavailable Nelson Arroyo PA-C Unavailable [phone] Nelson Arroyo PA-C Primary Care Provider Chinyere Barbour Unavailable Unavailable Nelson Arroyo PA-C Unavailable [phone] Pietro Wills MD Unavailable [phone] Tank Bucio MD Unavailable Encounter Details Date Type Department Care Team (Late st Contact Info) Description 02/27/2017 [facility] [address] [place] [address] Hillary Unger MD [address] [place], [place] [address] Social History Tobacco Use Types Packs/Day Years [...] PM CDT Legal Sex Female 3:44 AM HTML WEB DEVELOPER Gender Identity Female 10/03/2020 8:33 PM CDT Sexual Orientation Straight 07/01/2018 3: 40 PM HTML WEB DEVELOPER documented as of this encounter Plan of Treatment Not on file documented as of this encounter Visit Diagnoses Not on filedocumented in this encounter Additional Health Concerns Assessment Noted Time PHQ-9 Depression Total Score: 3 12/07/19 17 2:21 PM CDT documented as of this encounter Care Teams Medical Scientist Relationship Specialty Start Date End Date Hillary Unger MD [address] [place] [address] PCP - General Internal Medicine 08/21/15 08/05/18 Nelson Arroyo PA-C [address] [place] [address] PCP - Assigned PCP 04/12/18 05/02/18 Hillary Unger MD [address] [place] [address] PCP - Assigned PCP 02/01/18 04/11/18 Hillary Unger MD [address] [place] [address] PCP - Assigned PCP 05/03/18 07/07/18 Nelson Arroyo PA-C [address] [place] [address] PCP - General Physician Department Administrator - Medical 08/06/18 Salina Doherty MD Internal Medicine 12/01/14 Carrillo Ware APRN TABLE MACHINE OPERATOR [address] [place] [address] Nurse Practitioner Nurse Practitioner 12/16/14 Angelica Jerez SWEATER DESIGNER [facility] [address] [place], [place] 402487 Nurse Practitioner Nurse Practitioner - Family 07/12/16 Hillary Unger MD [address] [place] [address] Assigned PCP 05/03/18 07/18/18 Nelson Arroyo PA-C [address] [place] [address] Assigned PCP 07/05/18 07/29/20 Chinyere Barbour Personal Advocate & Liaison (PAL) 01/31/20 04/26/20 Nelson Arroyo PA-C [address] [place] [address] Assigned PCP 07/30/20 Pietro Wills MD [address] [place] [address] Assigned Heart and Vascular Provider 12/14/22 06/26/24 Tank Bucio MD [address] [place], [facility] [address] [place] [address] Physician trim and burr operator 12/01/23 documented as of this encounter
--- OUTSIDE RECORDS SUMMARY | 2025-02-01 12:58 | XMS_ITS | Encounter Summary ---
Author Organization [facility] Address [address] [place] [address]. [place] [address] Care Team Providers Care Airport Control Operator Name Role Phone Salina Doherty MD Unavailable Carrillo Ware APRN PROFESSOR OF PSYCHIATRY Unavailable SolitarioAngelica golden NP Unavailable [phone] Nelson Arroyo PA-C Unavailable [phone] Nelson Arroyo PA-C Primary Care Provider Chinyere Barbour Unavailable Unavailable Nelson Arroyo PA-C Unavailable Pietro Wills MD Unavailable Tank Bucio MD Unavailable [phone] Reason for Visit * Reason Onset Date Comments Refill Request 06/03/2019 Buspar Encounter Details Date Type Department Care Team (Late st Contact Info) Description 06/03/2019 MyC Refill [facility] [address] [facility], [address] [place] [address] [place] [address] [place] [address] Refill Request (Buspar) Social History [...] PM CDT Legal Sex Female 3:44 AM LAP CUTTER Gender Identity Female 10/03/2020 8:33 PM CDT Sexual Orientation Straight 07/01/2018 3: 40 PM LAP CUTTER documented as of this encounter Miscellaneous Notes * Telephone Encounter - Maude Singh RN - 06/03/2019 3:33 PM CST Duplicate CUTTER documented in this encounter Plan of Treatment Not on file documented as of this encounter Visit Diagnoses Diagnosis Generalized anxiety disorder documented in this encounter Additional Health Concerns Assessment Noted Time PHQ-9 Depression Total Score: 10 019 2:36 PM CDT documented as of this encounter Care Teams Airport Control Operator Relationship Specialty Start Date End Date Nelson Arroyo PA-C [address] [facility] [place] [address] PCP - General Physician Material Expeditor - Medical 08/06/18 Salina Doherty MD Internal Medicine 12/01/14 Carrillo Ware APRN PROFESSOR OF PSYCHIATRY [address] [place] [address] Nurse Practitioner Nurse Practitioner 12/16/14 Angelica Jerez NP [address] 7[address] Nurse Practitioner Nurse Practitioner - Family 07/12/16 Nelson Arroyo PA-C [address] [place] [address] Assigned PCP 07/05/18 07/29/20 Chineyre Barbour Personal Advocate & Liaison (PAL) 01/31/20 04/26/20 Nelson Arroyo PA-C [address] [place], [place] [address] Assigned PCP 07/30/20 Pietro Wills MD [address] [place] [address] Assigned Heart and Vascular Provider 12/14/22 06/26/24 Tank Bucio MD [address] [facility] [address] [place] [address] Physician web applications programmer 12/01/23 documented as of this encounter
--- OUTSIDE RECORDS SUMMARY | 2025-02-01 12:58 | XMS_ITS ---
Author Organization [facility] Source Produ ction (ClinicalSummary Clone) Address Unknown Care Team Providers Care Casino Floorperson Name Role Phone Unavailable Primary Care Physician Unavailab le Results * [UNITY] CARRIER SCREEN Performed by: [employer] Component Value Range Date Sickle Cell Disease/Beta-Thalassemia/Hemo globinopathies carrier screen NEGATIVE 07/20/2024 08:05 pm UTC Alpha-Thalassemia carrier screen NEGATIVE 07/20/2024 08:05 pm UTC Cystic Fibrosis carrier screen NEGATIVE 07/20/2024 08:05 pm UTC Spinal Muscular Atrophy carrier screen NEGATIVE 2 SMN1 copies, SNP not present 07/20/2024 08:05 pm UT For detailed report, see PDF See PDF 07/20/2024 08:05 pm UTC 07/20/2024 08:0 5 pm UT Social History Observation Value Start Date End Date
--- OUTSIDE RECORDS SUMMARY | 2025-02-01 12:58 | XMS_ITS | Encounter Summary ---
Author Organization [facility] Address [address] [place] [address]. [place] [address] Care Team Providers Care Bonding Molder Name Role Phone Salina Doherty MD Unavailable [phone] Carrillo Ware APRN SCHOLARSHIP COUNSELOR Unavailable SolitarioAngelica golden NP Unavailable [phone] Nelson Arroyo PA-C Unavailable Nelson Arroyo PA-C Primary Care Provider [phone] Chinyere Barbour Unavailable Unavailable Nelson Arroyo PA-C Unavailable Pietro Wills MD Unavailable Tank Bucio MD Unavailable Reason for Visit * Reason Onset Date Comments Refill Request 06/16/2019 Seroquel 300mg Encounter Details Date Type Department Care Team (Late st Contact Info) Description 06/16/2019 MyC Refill [facility] [address] [facility] [place], [address] [place] [address] [place] [address] [place] [address] Refill Request (Seroquel 300mg) Social History [...] PM CDT Legal Sex Female 3:44 AM SANDBLASTING SUPERVISOR Gender Identity Female 10/03/2020 8:33 PM CDT Sexual Orientation Straight 07/01/2018 3 :40 PM SANDBLASTING SUPERVISOR documented as of this encounter Miscellaneous Notes * Telephone Encounter - Nelson Arroyo PA-C - 06/21/2019 1:41 PM SANDBLASTING SUPERVISOR I will fill for one month-- I see she has an appointment. Due for labs. Nelson BLASTING SUPERVISOR * Telephone Encounter - Maude Singh RN [...] 90 days) Jun 30, 2019 3:00 PM SANDBLASTING SUPERVISOR MyChart Short with Nelson Arroyo PA-C [facility] [address] [place] [address], [facility] [address] [facility][1] [address] Requested [...] & Orders section of the refill encounter. BLASTING SUPERVISOR documented in this encounter Plan of Treatment Not on file documented as of this encounter Visit Diagnoses Diagnosis Generalized anxiety disorder Major depressive disorder, recurrent episode, moderate (H) Major depressive disorder, recurrent episode, moderate documented in this encounter Additional Health Concerns Assessment Noted Time PHQ-9 Depression Total Score: 10 019 2:36 PM CDT documented as of this encounter Care Teams Bonding Molder Relationship Specialty Start Date End Date Nelson Arroyo PA-C [address] [place] [address] PCP - General Physician Professor Of History - Medical 08/06/18 Salina Doherty MD Internal Medicine 12/01/14 Carrillo Ware APRN SCHOLARSHIP COUNSELOR [address] [place] [address] Nurse Practitioner Nurse Practitioner 12/16/14 Angelica Jerze BIG DATA DEVELOPER [facility] [address] [place] [address] Nurse Practitioner Nurse Practitioner - Family 07/12/16 Nelson Arroyo PA-C [address] [place] [address] Assigned PCP 07/05/18 07/29/20 Chinyere Barbour Personal Advocate & Liaison (PAL) 01/31/20 04/26/20 Nelson Arroyo PA-C [address] [place] [address] Assigned PCP 07/30/20 Pietro Wills MD [address] [place] [address] Assigned Heart and Vascular Provider 12/14/22 06/26/24 Tank Bucio MD [address] [place], [address] [address] Physician compression molding machine operator 12/01/23 documented as of this encounter
--- OUTSIDE RECORDS SUMMARY | 2025-02-01 12:58 | XMS_ITS | Encounter Summary ---
Author Organization [facility] Address [address] [place] [address] Care Team Providers Care Low Heel Builder Name Role Phone Salina Doherty MD Unavailable [phone] Carrillo Ware APRN STATE MANAGER Unavailable Hillary Unger MD Primary Care P rovider Nelson Arroyo PA-C Primary Care Provider +1- Hillary Unger MD Primary Care P rovider Angelica Jerez NP Unavailable [phone] Nelson Arroyo PA-C Unavailable [phone] Hillary Unger MD Unavailable Hillary Unger MD Unavailable Hillary Unger MD Unavailable Nelson Arroyo PA-C Unavailable [phone] Nelson Arroyo PA-C Primary Care Provider +1- Chinyere Barbour Unavailable Unavailable Nelson Arroyo PA-C Unavailable [phone] Pietro Wills MD Unavailable [phone] Tank Bucio MD Unavailable [phone] Reason for Visit * Reason Onset Date Comments Insomnia 05/06/2015 Encounter Details Date Type Department Care Team (Late st Contact Info) Description 05/06/2015 MyC Medical Advice [address], [address] [place] [address] Nelson Arroyo PA-C [address] [place] [address] Insomnia Social History Tobacco Use Types Packs/Day [...] PM CDT Legal Sex Female 3:44 AM PROGRESSIVE DIE MAKER Gender Identity Female 10/03/2020 8:33 PM CDT Sexual Orientation Straight 07/01/2018 3: 40 PM PROGRESSIVE DIE MAKER documented as of this encounter Plan of Treatment Not on file documented as of this encounter Visit Diagnoses Not on filedocumented in this encounter Care Teams Low Heel Builder Relationship Specialty Start Date End Date Hillary Unger MD [address] [place] [address] PCP - General Internal Medicine 01/05/15 08/02/15 Nelson Arroyo PA-C [address] [place] [address] PCP - General Physician Biofuels Engineering Manager - Medical 08/03/15 08/20/15 Hillary Unger MD [address] [place] [address] PCP - General Internal Medicine 08/21/15 08/05/18 Nelson Arroyo PA-C [address] [place] [address] PCP - Assigned PCP 04/12/18 05/02/18 Hillary Unger MD [address] [facility] [place] [place] [address] PCP - Assigned PCP 02/01/18 04/11/18 Hillary Unger MD [address] [place], [place] 357207 PCP - Assigned PCP 05/03/18 07/07/18 Nelson Arroyo PA-C [address] [place] [address] PCP - General Physician Biofuels Engineering Manager - Medical 08/06/18 Salina Doherty MD Internal Medicine 12/01/14 Carrillo Ware APRN STATE MANAGER [address] [place] [address] Nurse Practitioner Nurse Practitioner 12/16/14 Angelica Jerez NP [facility] [address] [place], [place] [address] Nurse Practitioner Nurse Practitioner - Family 07/12/16 Hillary Unger MD [address] [facility] [place] [address] Assigned PCP 05/03/18 07/18/18 Nelson Arroyo PA-C [address] [place] [address] Assigned PCP 07/05/18 07/29/20 Chinyere Barbour Personal Advocate & Liaison (PAL) 01/31/20 04/26/20 Nelson Arroyo PA-C [address] [place] [address] Assigned PCP 07/30/20 Pietro Wills MD [address] [place] [address] Assigned Heart and Vascular Provider 12/14/22 06/26/24 Tank Bucio MD [address] [facility], [address] [address] Physician ripsaw operator 12/01/23 documented as of this encounter
--- OUTSIDE RECORDS SUMMARY | 2025-02-01 12:58 | XMS_ITS | Encounter Summary ---
Author Organization [facility] Address [address] [place] [address] Care Team Providers Care Gutter Hanger Name Role Phone Salina Doherty MD Unavailable [phone] Carrillo Ware APRN PERSONNEL QUALITY ASSURANCE AUDITOR Unavailable [phone] Hillary Unger MD Primary Care P rovider Nelson Arroyo PA-C Primary Care Provider +1- Hillary Unger MD Primary Care P rovider Angelica Jerez NP Unavailable Nelson Arroyo PA-C Unavailable [phone] Hillary Unger MD Unavailable Hillary Unger MD Unavailable Hillary Unger MD Unavailable Nelson Arroyo PA-C Unavailable [phone] Nelson Arroyo PA-C Primary Care Provider +1- Chinyere Barbour Unavailable Unavailable Nelson Arroyo PA-C Unavailable [phone] Pietro Wills MD Unavailable [phone] Tank Bucio MD Unavailable [phone] Reason for Visit * Reason Onset Date Comments Refill Request 06/07/2015 Control Encounter Details Date Type Department Care Team (Late st Contact Info) Description 06/07/2015 MyC Refill [address], [address] [place] [address] Nelson Arroyo PA-C [address] [facility] [address] Refill Request ( Control) Social [...] PM CDT Legal Sex Female 3:44 AM COOLER SERVICER Gender Identity Female 10/03/2020 8:33 PM CDT Sexual Orientation Straight 07/01/2018 3: 40 PM COOLER SERVICER documented as of this encounter Miscellaneous Notes * Telephone Encounter - Maude Singh RN - 06/07/2015 1:12 PM CST Prescription approved per [facility] Refill Protocol. Maude Singh RN ER SERVICER * Telephone Encounter - Maude Singh RN - 06/07/2015 1:11 PM CSTMessage from MyChart: Original authorizing provider: RO Choudhury would like a refill of the following medications: levonorgestrel-ethinyl estradiol (FIDEL PALOMO LESSINA) 0.1-20 MG-MCG per tablet [Nelson Arroyo PA-C] Preferred pharmacy: [facility] [address] [place] [address] [address] Comment: ER SERVICER documented in this encounter Plan of Treatment Not on file documented as of this encounter Visit Diagnoses Diagnosis Encounter for surveillance of contraceptive pills Surveillance of previously prescribed contraceptive pill documented in this encounter Care Teams Gutter Hanger Relationship Specialty Start Date End Date Hillary Unger MD [address] [place] [address] PCP - General Internal Medicine 01/05/15 08/02/15 Nelson Arroyo PA-C [address] [place] [address] PCP - General Physician Concrete Tester - Medical 08/03/15 08/20/15 Hillary Unger MD [address] [place] [address] PCP - General Internal Medicine 08/21/15 08/05/18 Nelson Arroyo PA-C [address] [address] PCP - Assigned PCP 04/12/18 05/02/18 Hillary Unger MD [address] [place] [address] PCP - Assigned PCP 02/01/18 04/11/18 Hillary Unger MD [address] [place] [address] PCP - Assigned PCP 05/03/18 07/07/18 Nelson Arroyo PA-C [address] [address] PCP - General Physician Concrete Tester - Medical 08/06/18 Salina Doherty MD Internal Medicine 12/01/14 Carrillo Ware APRN PERSONNEL QUALITY ASSURANCE AUDITOR [address] [place] [address] Nurse Practitioner Nurse Practitioner 12/16/14 Angelica Jerez NP [facility] [address] [place] [address] Nurse Practitioner Nurse Practitioner - Family 07/12/16 Hillary Unger MD [address] [place], [place] [address] Assigned PCP 05/03/18 07/18/18 Nelson Arroyo PA-C [address] [place] [address] Assigned PCP 07/05/18 07/29/20 Chinyere Barbour Personal Advocate & Liaison (PAL) 01/31/20 04/26/20 Nelson Arroyo [place]-C [address] [place] [address] Assigned PCP 07/30/20 Pietro Wills MD [address] [address] Assigned Heart and Vascular Provider 12/14/22 06/26/24 Tank Bucio MD [address], [address] [address] Physician mining engineering technologist 12/01/23 documented as of this encounter
--- OUTSIDE RECORDS SUMMARY | 2025-02-01 12:58 | XMS_ITS | Encounter Summary ---
Author Organization [facility] Address [address] [place] [address] Care Team Providers Care Electronic Organ Technician Name Role Phone Salina Doherty MD Unavailable [phone] Carrillo Ware APRN CHIEF FUNDRAISING OFFICER Unavailable Hillary Unger MD Primary Care P rovider [facility] NP Unavailable [phone] Nelson Arroyo PA-C Unavailable [phone] Hillary Unger MD Unavailable Hillary Unger MD Unavailable Hillary Unger MD Unavailable Nelson Arroyo PA-C Unavailable [phone] Nelson Arroyo PA-C Primary Care Provider Chinyere Barbour Unavailable Unavailable Nelson Arroyo PA-C Unavailable [phone] Pietro Wills MD Unavailable [phone] Tank Bucio MD Unavailable [phone] Reason for Visit * Reason Onset Date Comments Refill Request 08/26/2017 Encounter Details Date Type Department Care Team (Late st Contact Info) Description 08/26/[address], [address] [place] [address] Nelson Arroyo PA-C [address] [place] [address] Refill Request Social History Tobacco Use Types [...] Legal Sex Female 3:44 AM DIRECTOR OF VOCATIONAL GUIDANCE Gender Identity Female 10/03/2020 8:33 PM CDT Sexual Orientation Straight 07/01/2018 3: 40 PM DIRECTOR OF VOCATIONAL GUIDANCE documented as of this encounter Plan of Treatment Not on file documented as of this encounter Visit Diagnoses Diagnosis Acne, unspecified acne type documented in this encounter Additional Health Concerns Assessment Noted Time PHQ-9 Depression Total Score: 4 04/04/20 17 7:13 AM DIRECTOR OF VOCATIONAL GUIDANCE documented as of this encounter Care Teams Electronic Organ Technician Relationship Specialty Start Date End Date Hillary Unger MD [address] [place] [address] PCP - General Internal Medicine 08/21/15 08/05/18 Nelson Arroyo PA-C [address] [place] [address] PCP - Assigned PCP 04/12/18 05/02/18 Hillary Unger MD [address] [place] [address] PCP - Assigned PCP 02/01/18 04/11/18 Hillary Unger MD [address] [place] [address] PCP - Assigned PCP 05/03/18 07/07/18 Nelson Arroyo PA-C [address] [place] [place] [address] PCP - General Physician Food And Beverage Outlets Manager - Medical 08/06/18 Salina Doherty MD Internal Medicine 12/01/14 Carrillo Ware APRN CHIEF FUNDRAISING OFFICER [address] [place] [address] Nurse Practitioner Nurse Practitioner 12/16/14 Angelica Jerez NP [facility] [address] [place] [address] Nurse Practitioner Nurse Practitioner - Family 07/12/16 Hillary Unger MD [address] [place] [address] Assigned PCP 05/03/18 07/18/18 Nelson Arroyo PA-C [address] [place] [address] Assigned PCP 07/05/18 07/29/20 Chinyere Barbour Personal Advocate & Liaison (PAL) 01/31/20 04/26/20 Nelson Arroyo PA-C [address] [place] [address] Assigned PCP 07/30/20 Pietro Wills MD [address] [place] [address] Assigned Heart and Vascular Provider 12/14/22 06/26/24 Tank Bucio MD [address] [facility] [address] [place] [address] Physician core blower 12/01/23 documented as of this encounter
--- OUTSIDE RECORDS SUMMARY | 2025-02-01 12:58 | XMS_ITS | Encounter Summary ---
Author Organization [place] Address [address] [place] [address] Care Team Providers Care Paper Hanger Name Role Phone Salina Doherty MD Unavailable [phone] Carrillo Ware APRN DEVOPS DEVELOPER Unavailable Hillary Unger MD Primary Care P rovider Nelson Arroyo PA-C Primary Care Provider +[phone]- Hillary Unger MD Primary Care P rovider Angelica Jerez NP Unavailable [phone] Nelson Arroyo PA-C Unavailable [phone] Hillary Unger MD Unavailable Hillary Unger MD Unavailable Hillary Unger MD Unavailable Nelson Arroyo PA-C Unavailable [phone] Nelson Arroyo PA-C Primary Care Provider +1- Chinyere Barbour Unavailable Unavailable Nelson Arroyo PA-C Unavailable [phone] Pietro Wills MD Unavailable [phone] Tank Bucio MD Unavailable + [phone] Reason for Visit * Reason Onset Date Comments MyChart Communication 06/22/2015 Emergency Contraceptive Pill Questions Encounter Details Date Type Department Care Team (Late st Contact Info) Description 06/22/2015 MyC Medical Advice [address], [address] [place] [id number] Nelson Arroyo PA-C [address] [place] [address] MyChart Communication (Emergency Contracep... Social History Tobacco [...] CDT Legal Sex Female 3:44 AM ORDER BUILDER Gender Identity Female 10/03/2020 8:33 PM CDT Sexual Orientation Straight 07/01/2018 3: 40 PM ORDER BUILDER documented as of this encounter Miscellaneous Notes * Telephone Encounter - Juana See RN - 06/22/2015 1:07 PM CST Nelson, will you please advise? I had sent the pt information yesterday via [employer] regarding thesesame questions and emergency contraceptive information and it was read. I think she wants your advice. Kesha See, RN, BSN R BUILDER documented in this encounter Plan of Treatment Not on file documented as of this encounter Visit Diagnoses Not on filedocumented in this encounter Care Teams Paper Hanger Relationship Specialty Start Date End Date Hillary Unger MD [address] [place] [address] PCP - General Internal Medicine 01/05/15 08/02/15 Nelson Arroyo PA-C [address] [place] [address] PCP - General Physician Radial Drill Operator For Plastic - Medical 08/03/15 08/20/15 Hillary Unger MD [address] [place] [address] PCP - General Internal Medicine 08/21/15 08/05/18 Nelson Arroyo PA-[place] [address] [place] [address] PCP - Assigned PCP 04/12/18 05/02/18 Hillary Unger MD [address] [place] [address] PCP - Assigned PCP 02/01/18 04/11/18 Hillary Unger MD [address] [facility] [address] PCP - Assigned PCP 05/03/18 07/07/18 Nelson Arroyo PA-C [address] [place] [address] PCP - General Physician Radial Drill Operator For Plastic - Medical 08/06/18 Salina Doherty MD Internal Medicine 12/01/14 Carrillo Ware APRN DEVOPS DEVELOPER [address] [place] [place] [address] Nurse Practitioner Nurse Practitioner 12/16/14 Angelica Jerez NP [facility] [address] [place] [address] Nurse Practitioner Nurse Practitioner - Family 07/12/16 Hillary Unger MD [address] [place] [address] Assigned PCP 05/03/18 07/18/18 Nelson Arroyo PA-[place] [address] [place] [address] Assigned PCP 07/05/18 07/29/20 Chinyere Barbour Personal Advocate & Liaison (PAL) 01/31/20 04/26/20 Nelson Arroyo PA-C [address] [place] [address] Assigned PCP 07/30/20 Pietro Wills MD [address] [place] [address] Assigned Heart and Vascular Provider 12/14/22 06/26/24 Tank Bucio MD [address], [facility] [address] [place] [address] Physician blurb writer 12/01/23 documented as of this encounter
--- OUTSIDE RECORDS SUMMARY | 2025-02-01 12:58 | XMS_ITS | Encounter Summary ---
Author Organization [place] Address [address] [place] [address]. [place] [address] Care Team Providers Care Registrar Nurses' Registry Name Role Phone Salina Doherty MD Unavailable [phone] Carrillo Ware APRN INTELLIGENCE CHIEF Unavailable [phone] SolitarioAngelica golden NP Unavailable [phone] Nelson Arroyo PA-C Unavailable Nelson Arroyo PA-C Primary Care Provider Chinyere Barbour Unavailable Unavailable Nelson Arroyo PA-C Unavailable Pietro Wills MD Unavailable [phone] Tank Bucio MD Unavailable [phone] Reason for Visit * Reason Onset Date Comments Refill Request 04/25/2019 Zulay Wang in Encounter Details Date Type Department Care Team (Late st Contact Info) Description 04/25/2019 MyC Refill [address], [address] [place] [address] Nelson Arroyo PA-C [address] [place] [address] Refill Request (Rossy Wang) Social [...] PM CDT Legal Sex Female 3:44 AM SAND HAULER Gender Identity Female 10/03/2020 8:33 PM CDT Sexual Orientation Straight 07/01/2018 3: 40 PM SAND HAULER documented as of this encounter Miscellaneous Notes * Telephone Encounter - Mariella Tamayo - 04/29/2019 10:16 AM CST Sent message. Mariella Tamayo, Director Of Casework HAULER * Telephone Encounter - Russel Pak MD - 04/27/2019 7:11 AM SAND HAULER Last PHQ showing significant sx. Pt should be seen for f/u. Please call to schedule. 1m refill provided. HAULER * Telephone Encounter - Maude Singh RN - 04/26/2019 2:55 PM CST Buspar, Wellbutrin Last Written Prescription Date: 12/03/2018 ([facility]) Last Fill Quantity: 90, # [...] because: PHQ-9 > 4. Maude Singh RN HAULER documented in this encounter Plan of Treatment [...] as of this encounter Care Teams Registrar Nurses' Registry Relationship Specialty Start Date End Date Nelson Arroyo PA-C [address] [address] PCP - General Physician Muffler Hand - Medical 08/06/18 Salina Doherty MD Internal Medicine 12/01/14 Carrillo Ware APRN INTELLIGENCE CHIEF [address] [place] [id number] Nurse Practitioner Nurse Practitioner 12/16/14 Angelica Jerez NP [address] [id number] Nurse Practitioner Nurse Practitioner - Family 07/12/16 Nelson Arroyo PA-C [address] [address] Assigned PCP 07/05/18 07/29/20 Chinyere Barbour Personal Advocate & Liaison (PAL) 01/31/20 04/26/20 Nelson Arroyo PA-C [address] [address] Assigned PCP 07/30/20 Pietro Wills MD [address] [address] Assigned Heart and Vascular Provider 12/14/22 06/26/24 Tank Bucio MD [address] [place], [facility] [address] [place] [address] Physician embossing press operator 12/01/23 documented as of this encounter
--- OUTSIDE RECORDS SUMMARY | 2025-02-01 12:58 | XMS_ITS | Encounter Summary ---
Author Organization [place] Address [address] [place] [address] Care Team Providers Care Funding Analyst Name Role Phone Salina Doherty MD Unavailable [phone] Carrillo Ware APRN ESCROW MANAGER Unavailable Hillary Unger MD Primary Care P rovider Nelson Arroyo PA-C Primary Care Provider +1- Hillary Unger MD Primary Care P rovider Angelica Jerez NP Unavailable [phone] Nelson Arroyo PA-C Unavailable [phone] Hillary Unger MD Unavailable Hillary Unger MD Unavailable Hillary Unger MD Unavailable Nelson Arroyo PA-C Unavailable [phone] Nelson Arroyo PA-C Primary Care Provider +1- Chinyere Barbour Unavailable Unavailable Nelson Arroyo PA-C Unavailable [phone] Pietro Wills MD Unavailable [phone] Tank Bucio MD Unavailable + [phone] Reason for Visit * Reason Onset Date Comments Vaginal Problem 02/01/2015 Infection Encounter Details Date Type Department Care Team (Late st Contact Info) Description 02/01/2015 MyC Medical Advice [address], [address] [place] [address] Nelson Arroyo PA-C [address] [facility] [place] [address] Vaginal Problem (Infection) Social History Tobacco Use [...] PM CDT Legal Sex Female 3:44 AM FLIGHT CONTROL SPECIALIST Gender Identity Female 10/03/2020 8:33 PM CDT Sexual Orientation Straight 07/01/2018 3: 40 PM FLIGHT CONTROL SPECIALIST documented as of this encounter Plan of Treatment Not on file documented as of this encounter Visit Diagnoses Diagnosis Pelvic pain in female- Primary Unspecified symptom associated with female genital organs documented in this encounter Care Teams Funding Analyst Relationship Specialty Start Date End Date Hillary Unger MD [address] [place] [address] PCP - General Internal Medicine 01/05/15 08/02/15 Nelson Arroyo PA-C [address] [place] [address] PCP - General Physician Bakery Associate - Medical 08/03/15 08/20/15 Hillary Unger MD [address] [place] [address] PCP - General Internal Medicine 08/21/15 08/05/18 Nelson Arroyo PA-C [address] [place] [address] PCP - Assigned PCP 04/12/18 05/02/18 Hillary Unger MD [address] [place], [place] 916207 PCP - Assigned PCP 02/01/18 04/11/18 Hillary Unger MD [address] [place] [address] PCP - Assigned PCP 05/03/18 07/07/18 Nelson Arroyo PA-C [address] [place] [address] PCP - General Physician Bakery Associate - Medical 08/06/18 Salina Doherty MD Internal Medicine 12/01/14 Carrillo Ware APRN ESCROW MANAGER [address] [place] [address]47[address] Nurse Practitioner Nurse Practitioner 12/16/14 Angelica Jerez NP [facility] [address] [place], [place] 651127 Nurse Practitioner Nurse Practitioner - Family 07/12/16 Hillary Unger MD [address] [place], [place] 3818[address] Assigned PCP 05/03/18 07/18/18 Nelson Arroyo PA-C [address] [place] [address] Assigned PCP 07/05/18 07/29/20 Chinyere Barbour Personal Advocate & Liaison (PAL) 01/31/20 04/26/20 Nelson Arroyo PA-C [address] [place] [address] Assigned PCP 07/30/20 Pietro Wills MD [address] [place] [address] Assigned Heart and Vascular Provider 12/14/22 06/26/24 Tank Bucio MD [address], [address] [place] [address] Physician portal architect 12/01/23 documented as of this encounter
--- OUTSIDE RECORDS SUMMARY | 2025-02-01 12:59 | XMS_ITS | Encounter Summary ---
Author Organization [place] Address [address] [place] [address]. [place] [address] Care Team Providers Care Home Care Manager Rn Name Role Phone Salina Doherty MD Unavailable [phone] Carrillo Ware APRN SENIOR BIOINFORMATICS SPECIALIST Unavailable SolitarioAngelica golden NP Unavailable [phone] Nelson Arroyo PA-C Unavailable [phone] Nelson Arroyo PA-C Primary Care Provider Chinyere Barbour Unavailable Unavailable Nelson Arroyo PA-C Unavailable Pietro Wills MD Unavailable Tank Bucio MD Unavailable [phone] Reason for Visit * Reason Comments Medication Refill Encounter Details Date Type Department Care Team (Late st Contact Info) Description 04/21/[address], [address] [place] [address] [place] [address] [place] [address] Medication Refill Social History [...] PM CDT Legal Sex Female 3:44 AM CUTTER OUT Gender Identity Female 10/03/2020 8:33 PM CDT Sexual Orientation Straight 07/01/2018 3: 40 PM CUTTER OUT documented as of this encounter Miscellaneous Notes * Telephone Encounter - Nelson Arroyo PA-C - 04/23/2019 9:18 AM CUTTER OUT I will fill. When she was in for appointment in Feb we discussed that she needs to come back in to complete PAP part of physical that we did not do. Please remind her of this. ER OUT * Telephone Encounter - Lexi Reina RN [...] for review/approval because: [facility] ER OUT documented in this encounter Plan of Treatment Not on file documented as of this encounter Visit Diagnoses Diagnosis Generalized anxiety disorder documented in this encounter Additional Health Concerns Assessment Noted Time PHQ-9 Depression Total Score: 10 019 2:36 PM CDT documented as of this encounter Care Teams Home Care Manager Rn Relationship Specialty Start Date End Date Nelson Arroyo PA-C [address] [place] [address] PCP - General Physician School Counselor - Medical 08/06/18 Salina Doherty MD Internal Medicine 12/01/14 Carrillo Ware APRN SENIOR BIOINFORMATICS SPECIALIST [address] [place] [address] Nurse Practitioner Nurse Practitioner 12/16/14 Angelica Jerez NP [facility] [address] [place] [address] Nurse Practitioner Nurse Practitioner - Family 07/12/16 Nelson Arroyo PA-C [address] [place] [address] Assigned PCP 07/05/18 07/29/20 Chinyere Barbour Personal Advocate & Liaison (PAL) 01/31/20 04/26/20 Nelson Arroyo PA-C [address] [place] [address] Assigned PCP 07/30/20 Pietro Wlils MD [address] [place] [address] Assigned Heart and Vascular Provider 12/14/22 06/26/24 Tank Bucio MD [address], [address] [address] Physician sisal operator 12/01/23 documented as of this encounter
--- OUTSIDE RECORDS SUMMARY | 2025-02-01 12:59 | XMS_ITS | Encounter Summary ---
Author Organization [place] Address [address] [place] [address]. [place] [address] Care Team Providers Care Puppy Walker Name Role Phone Salina Doherty MD Unavailable [phone] Carrillo Ware APRN SPOTTER DRIVER Unavailable SolitarioAngelica golden NP Unavailable [phone] Nelson Arroyo PA-C Unavailable Nelson Arroyo PA-C Primary Care Provider Chinyere Barbour Unavailable Unavailable Nelson Arroyo PA-C Unavailable Pietro Wills MD Unavailable Tank Bucio MD Unavailable Reason for Visit * Reason Onset Date Comments Panel Management 06/23/2019 Encounter Details Date Type Department Care Team (Late st Contact Info) Description 06/23/2019 MyC Medical Advice [facility] [address] [facility], [address] [place] [address] Nelson Arroyo PA-C [address] [place] [address] Panel Management Social History Tobacco [...] PM CDT Legal Sex Female 3:44 AM BUSINESS OFFICE REPRESENTATIVE Gender Identity Female 10/03/2020 8:33 PM CDT Sexual Orientation Straight 07/01/2018 3: 40 PM BUSINESS OFFICE REPRESENTATIVE documented as of this encounter Miscellaneous [...] to do PHQ9. Type of outreach: Sent [employer] message. Questions for provider review: None Ashely Younger MA Chart routed to Care Team . NESS OFFICE REPRESENTATIVE documented in this encounter Plan of Treatment Not on file documented as of this encounter Visit Diagnoses Not on filedocumented in this encounter Additional Health Concerns Assessment Noted Time PHQ-9 Depression Total Score: 10 019 2:36 PM CDT documented as of this encounter Care Teams Puppy Walker Relationship Specialty Start Date End Date Nelson Arroyo PA-C [address] [place] [address] PCP - General Physician Chef Concierge - Medical 08/06/18 Salina Doherty MD Internal Medicine 12/01/14 Carrillo Ware APRN SPOTTER DRIVER [address] [place] [address] Nurse Practitioner Nurse Practitioner 12/16/14 Angelica Jerez NP [facility] [address] [place] [address] Nurse Practitioner Nurse Practitioner - Family 07/12/16 Nelson Arroyo PA-C [address] [place] [address] Assigned PCP 07/05/18 07/29/20 Chinyere Barbour Personal Advocate & Liaison (PAL) 01/31/20 04/26/20 Nelson Arroyo PA-C [address] [address] Assigned PCP 07/30/20 Pietro Wills MD [address] [place] [address] Assigned Heart and Vascular Provider 12/14/22 06/26/24 Tank Bucio MD [address], [facility] 100 [place] [address] Physician director pharmacy services 12/01/23 documented as of this encounter
--- OUTSIDE RECORDS SUMMARY | 2025-02-01 12:59 | XMS_ITS | Encounter Summary ---
Author Organization [place] Address [address] [place] [address]. [place] [address] Care Team Providers Care Dominatrix Name Role Phone Salina Doherty MD Unavailable Carrillo Ware APRN HOSPITAL PHARMACIST Unavailable [phone] SolitarioAngelica golden NP Unavailable [phone] Nelson Arroyo PA-C Primary Care Provider Nelson Arroyo PA-C Unavailable Pietro Wills MD Unavailable [phone] Tank Bucio MD Unavailable Reason for Visit * Reason Comments Medication Refill Encounter Details Date Type Department Care Team (Late st Contact Info) Description 05/29/2022 Refill [facility] [address] [place] [address] Nelson Arroyo PA-C [address] [place] [address] Medication Refill Social History Tobacco [...] CDT Legal Sex Female 3:44 AM MARKETING SUPPORT COORDINATOR Gender Identity Female 10/03/2020 8:33 PM CDT Sexual Orientation Straight 07/01/2018 3: 40 PM MARKETING SUPPORT COORDINATOR documented as of this encounter Miscellaneous Notes * Telephone Encounter - Amanda Unger - 05/29/2022 3:54 PM CST LMTCB Amanda Unger Foreign Correspondent ETING SUPPORT COORDINATOR * Telephone Encounter - Nelson Arroyo PA-C - 05/29/2022 3:50 PM MARKETING SUPPORT COORDINATOR I think she is going to [facility] now. She will need to contact them for refill. Nelson ETING SUPPORT COORDINATOR * Telephone Encounter - Tiny Carrillo RN - 05/29/2022 12:14 PM MARKETING SUPPORT COORDINATOR Routing refill request to provider for review/approval because: Drug not on the [facility] refill protocol ETING SUPPORT COORDINATOR documented in this encounter Plan of Treatment Not on file documented as of this encounter Visit Diagnoses Diagnosis Muscle spasm Spasm of muscle documented in this encounter Additional Health Concerns Assessment Noted Time PHQ-9 Depression Total Score: 7 10/23/19 22 11:44 AM CDT documented as of this encounter Care Teams Dominatrix Relationship Specialty Start Date End Date Nelson Arroyo PA-C [address] [address] PCP - General Physician Securities Clerk - Medical 08/06/18 Salina Doherty MD Internal Medicine 12/01/14 Carrillo Ware APRN HOSPITAL PHARMACIST [address] [place] [address] Nurse Practitioner Nurse Practitioner 12/16/14 Angelica Jerez NP [facility] [address] [place] [address] Nurse Practitioner Nurse Practitioner - Family 07/12/16 Nelson Arroyo PA-C [address] [place] [address] Assigned PCP 07/30/20 Pietro Wills MD [address] [place] [address] Assigned Heart and Vascular Provider 12/14/22 06/26/24 Tank Bucio MD [address], [address] [address] Physician water plant pump operator 12/01/23 documented as of this encounter
--- OUTSIDE RECORDS SUMMARY | 2025-02-01 12:59 | XMS_ITS | Encounter Summary ---
Author Organization [place] Address [address] [place] [address]. [place] [address] Care Team Providers Care Trailer Assembler Name Role Phone Salina Doherty MD Unavailable [phone] Carrillo Ware APRN FENCE MACHINE OPERATOR Unavailable SolitarioAngelica golden NP Unavailable [phone] Nelson Arroyo PA-C Unavailable Nelson Arroyo PA-C Primary Care Provider Chinyere Barbour Unavailable Unavailable Nelson Arroyo PA-C Unavailable Pietro Wills MD Unavailable Tank Bucio MD Unavailable [phone] Encounter Details Date Type Department Care Team (Late st Contact Info) Description 04/04/2019 MyC Medical Advice [address], [address] [place] [address] Nelson Arroyo PA-C [address] [place] [address] Social History Tobacco Use Types [...] PM CDT Legal Sex Female 3:44 AM CHARTER BOAT OPERATOR Gender Identity Female 10/03/2020 8:33 PM CDT Sexual Orientation Straight 07/01/2018 3: 40 PM CHARTER BOAT OPERATOR documented as of this encounter Plan of Treatment Not on file documented as of this encounter Visit Diagnoses Not on filedocumented in this encounter Additional Health Concerns Assessment Noted Time PHQ-9 Depression Total Score: 10 019 2:36 PM CDT documented as of this encounter Care Teams Trailer Assembler Relationship Specialty Start Date End Date Nelson Arroyo PA-C [address] [place] [address] PCP - General Physician Supervisor Tower - Medical 08/06/18 Salina Doherty MD Internal Medicine 12/01/14 Carrillo Ware APRN FENCE MACHINE OPERATOR [address] [place] [address] 535485 Nurse Practitioner Nurse Practitioner 12/16/14 Angelica Jerez NP [address] [address]229[address] Nurse Practitioner Nurse Practitioner - Family 07/12/16 Nelson Arroyo PA-C [address] [place] [address] Assigned PCP 07/05/18 07/29/20 Chinyere Barbour Personal Advocate & Liaison (PAL) 01/31/20 04/26/20 Nelson Arroyo PA-C [address] [place] [address] Assigned PCP 07/30/20 Pietro Wills MD [address] [place] [address] Assigned Heart and Vascular Provider 12/14/22 06/26/24 Tank Bucio MD [address] [facility], [address] [address] Physician still operator helper 12/01/23 documented as of this encounter
--- OUTSIDE RECORDS SUMMARY | 2025-02-01 12:59 | XMS_ITS | Encounter Summary ---
Author Organization [place] Address [address] [place] [address]. [place] [address] Care Team Providers Care Web Production Assistant Name Role Phone Salina Doherty MD Unavailable [phone] Carrillo Ware APRN RAW SHELLFISH PREPARER Unavailable SolitarioAngelica golden NP Unavailable [phone] Nelson Arroyo PA-C Unavailable Nelson Arroyo PA-C Primary Care Provider Chinyere Barbour Unavailable Unavailable Nelson Arroyo PA-C Unavailable [phone] Pietro Wills MD Unavailable Tank Bucio MD Unavailable Reason for Visit * Reason Onset Date Comments Medication Refill 06/17/2019 Seroquel 300mg Encounter Details Date Type Department Care Team (Late st Contact Info) Description 06/14/[address] [facility] [address] [facility], [address] [place] [address] [place] [address] [place] [address] Medication Refill (Seroquel 300mg) Social History [...] CDT Legal Sex Female 3:44 AM TRAINING AND DEVELOPMENT PROFESSIONAL Gender Identity Female 10/03/2020 8:33 PM CDT Sexual Orientation Straight 07/01/2018 3: 40 PM TRAINING AND DEVELOPMENT PROFESSIONAL documented as of this encounter Miscellaneous Notes [...] 90 days) Jun 30, 2019 3:00 PM TRAINING AND DEVELOPMENT PROFESSIONAL Galina Bellamy with Nelson Arroyo PA-C [facility] [address] [place] [address], [address] [address] Requested Prescriptions Pending Prescriptions Disp [...] & Orders section of the refill encounter. NING AND DEVELOPMENT PROFESSIONAL documented in this encounter Plan of Treatment Not on file documented as of this encounter Visit Diagnoses Diagnosis Generalized anxiety disorder Major depressive disorder, recurrent episode, moderate (H) Major depressive disorder, recurrent episode, moderate documented in this encounter Additional Health Concerns Assessment Noted Time PHQ-9 Depression Total Score: 10 019 2:36 PM CDT documented as of this encounter Care Teams Web Production Assistant Relationship Specialty Start Date End Date Nelson Arroyo PA-C [address] [place] [address] PCP - General Physician Traffic Division Commanding Officer - Medical 08/06/18 Salina Doherty MD Internal Medicine 12/01/14 Carrillo Ware APRN RAW SHELLFISH PREPARER [address] [place] [address] Nurse Practitioner Nurse Practitioner 12/16/14 Angelica Jerez PAD CUTTER [facility] [address] [place] [address] Nurse Practitioner Nurse Practitioner - Family 07/12/16 Nelson Arroyo PA-C [address] [place] [address] Assigned PCP 07/05/18 07/29/20 Chinyere Barbour Personal Advocate & Liaison (PAL) 01/31/20 04/26/20 Nelson Arroyo PA-C [address] [place] [address] Assigned PCP 07/30/20 Pietro Wills MD [address] [place] [address] Assigned Heart and Vascular Provider 12/14/22 06/26/24 Tank Bucio MD [address] [facility] [address] [place] [address] Physician talent rep 12/01/23 documented as of this encounter
--- OUTSIDE RECORDS SUMMARY | 2025-02-01 12:59 | XMS_ITS | Encounter Summary ---
Author Organization [place] Address [address] [place] [address] Care Team Providers Care Box Fabricator Name Role Phone Salina Doherty MD Unavailable [phone] Carrillo Ware APRN STEEL WELDER Unavailable SolitarioAngelica golden NP Unavailable [phone] Nelson Arroyo PA-C Unavailable [phone] Nelson Arroyo PA-C Primary Care Provider Chinyere Barbour Unavailable Unavailable Nelson Arroyo PA-C Unavailable [phone] Pietro Wills MD Unavailable [phone] Tank Bucio MD Unavailable [phone] Encounter Details Date Type Department Care Team (Late st Contact Info) Description 06/23/2019 MyC Medical Advice [facility] [id number] [place] [address], [address] [place] [address] Ashely Younger, [facility] Social History Tobacco Use Types Packs/Day Years [...] PM CDT Legal Sex Female 3:44 AM QUENCHING CAR OPERATOR Gender Identity Female 10/03/2020 8:33 PM CDT Sexual Orientation Straight 07/01/2018 3: 40 PM QUENCHING CAR OPERATOR documented as of this encounter Plan of Treatment Not on file documented as of this encounter Visit Diagnoses Not on filedocumented in this encounter Additional Health Concerns Assessment Noted Time PHQ-9 Depression Total Score: 10 019 2:36 PM CDT documented as of this encounter Care Teams Box Fabricator Relationship Specialty Start Date End Date Nelson Arroyo PA-C [address] [address] PCP - General Physician Energy Conservation Technician - Medical 08/06/18 Salina Doherty MD Internal Medicine 12/01/14 Carrillo Ware APRN STEEL WELDER [address] [place] [address] [id number] Nurse Practitioner Nurse Practitioner 12/16/14 Angelica Jerez NP [address] [address] Nurse Practitioner Nurse Practitioner - Family 07/12/16 Nelson Arroyo PA-C [address] [address] Assigned PCP 07/05/18 07/29/20 Chinyere Barbour Personal Advocate & Liaison (PAL) 01/31/20 04/26/20 Nelson Arroyo PA-C [address] [address] Assigned PCP 07/30/20 Pietro Wills MD [address] [place] [address] Assigned Heart and Vascular Provider 12/14/22 06/26/24 Tank Bucio MD [address] [facility] 100 [place] [address] Physician second baller 12/01/23 documented as of this encounter
--- OUTSIDE RECORDS SUMMARY | 2025-02-01 12:59 | XMS_ITS | Encounter Summary ---
Author Organization [place] Address [address] [place] [address]. [place] [address] Care Team Providers Care Insight Leader Name Role Phone Salina Doherty MD Unavailable [phone] Carrillo Ware APRN WELLNESS AMBASSADOR Unavailable [phone] SolitarioAngelica golden NP Unavailable [phone] Nelson Arroyo PA-C Primary Care Provider Nelson Arroyo PA-C Unavailable [phone] Pietro Wills MD Unavailable [phone] Tank Bucio MD Unavailable [phone] Reason for Visit * Reason Comments Medication Refill Encounter Details Date Type Department Care Team (Late st Contact Info) Description 06/15/2022 Refill [facility] [address] [place] [address] Nelson Arroyo PA-C [address] [place] [address] Medication Refill Social History Tobacco [...] PM CDT Legal Sex Female 3:44 AM MINK RANCHER Gender Identity Female 10/03/2020 8:33 PM CDT Sexual Orientation Straight 07/01/2018 3: 40 PM MINK RANCHER documented as of this encounter Miscellaneous Notes * Telephone Encounter - Nelson Arroyo PA-C - 06/19/2022 10:50 AM MINK RANCHER I think she established care elsewhere. Nelson RANCHER * Telephone Encounter - Ashely Naylor RN - 06/16/2022 3:17 PM CST Routing refill request to provider for review/approval because: Drug not on the [facility] refill protocol RANCHER documented in this encounter Plan of Treatment Not on file documented as of this encounter Visit Diagnoses Diagnosis Muscle spasm Spasm of muscle documented in this encounter Additional Health Concerns Assessment Noted Time PHQ-9 Depression Total Score: 7 10/23/19 22 11:44 AM CDT documented as of this encounter Care Teams Insight Leader Relationship Specialty Start Date End Date Nelson Arroyo PA-C [address] [place] [address] PCP - General Physician Healthcare Facility Administrator - Medical 08/06/18 Salina Doherty MD Internal Medicine 12/01/14 Carrillo Ware APRN WELLNESS AMBASSADOR [address] [place] [address] Nurse Practitioner Nurse Practitioner 12/16/14 Angelica Jerez NP [address] [place] [address] Nurse Practitioner Nurse Practitioner - Family 07/12/16 Nelson Arroyo PA-C [address] [place] [address] Assigned PCP 07/30/20 Pietro Wills MD [address] [place] [address] Assigned Heart and Vascular Provider 12/14/22 06/26/24 Tank Bucio MD [address] [facility], [facility] 100 [place] [address] Physician suspender cutter 12/01/23 documented as of this encounter
--- OUTSIDE RECORDS SUMMARY | 2025-02-01 12:59 | XMS_ITS | Encounter Summary ---
Author Organization [place] Address [address] [place] [address]. [place] [address] Care Team Providers Care Bridge/Structure Inspection Team Leader Name Role Phone Salina Doherty MD Unavailable [phone] Carrillo Ware APRN HOG SCALDER Unavailable SolitarioAngelica golden NP Unavailable [phone] Nelson Arroyo PA-C Unavailable Nelson Arroyo PA-C Primary Care Provider [phone] Chinyere Barbour Unavailable Unavailable Nelson Arroyo PA-C Unavailable Pietro Wills MD Unavailable Tank Bucio MD Unavailable [phone] Reason for Visit * Reason Onset Date Comments Refill Request 04/04/2019 Zanaflex, Trazod one, Elavil Encounter Details Date Type Department Care Team (Late st Contact Info) Description 04/04/2019 MyC Refill [address], [address] [place] [address] Nelson Arroyo PA-C [address] [place] [address] Refill Request (Zanaflex, Trazodone, Elavil) [...] PM CDT Legal Sex Female 3:44 AM CLINICAL INVESTIGATOR Gender Identity Female 10/03/2020 8:33 PM CDT Sexual Orientation Straight 07/01/2018 3: 40 PM CLINICAL INVESTIGATOR documented as of this encounter Miscellaneous Notes [...] 90 days) Apr 14, 2019 3:40 PM CLINICAL INVESTIGATOR Galina Tavarez with Nelson Arroyo PA-C [facility] [address] [place] [address], [facility] 100 [facility] [address] Routing refill request to provider [...] PM ANDREA Tavarez with Nelson Arroyo PA-C [facility] ([facility]) [address] [place] [address], [address] [address] Requested Prescriptions Pending Prescriptions Disp [...] in past 12 mos Prescription approved per [facility] Refill Protocol. Maude Singh RN ICAL INVESTIGATOR documented in this encounter Plan of Treatment Not on file documented as of this encounter Visit Diagnoses Diagnosis Muscle spasm Spasm of muscle Cervicalgia Persistent insomnia Persistent disorder of initiating or maintaining sleep documented in this encounter Additional Health Concerns Assessment Noted Time PHQ-9 Depression Total Score: 10 019 2:36 PM CDT documented as of this encounter Care Teams Bridge/Structure Inspection Team Leader Relationship Specialty Start Date End Date Nelson Arroyo PA-C [address] [place] [address] PCP - General Physician Banking Center Manager - Medical 08/06/18 Salina Doherty MD Internal Medicine 12/01/14 Carrillo Ware APRN HOG SCALDER [address] [place] [address] Nurse Practitioner Nurse Practitioner 12/16/14 Angelica Jerez NP [address] [address] Nurse Practitioner Nurse Practitioner - Family 07/12/16 Nelson Arroyo PA-C [address] [address] [address] Assigned PCP 07/05/18 07/29/20 Chinyere Barbour Personal Advocate & Liaison (PAL) 01/31/20 04/26/20 Nelson Arroyo PA-C [address] [place] [address] Assigned PCP 07/30/20 Pietro Wills MD [address] [place] [address] Assigned Heart and Vascular Provider 12/14/22 06/26/24 Tank Bucio MD [address], [address] [address] Physician live games dealer 12/01/23 documented as of this encounter
--- OUTSIDE RECORDS SUMMARY | 2025-02-01 12:59 | XMS_ITS | Encounter Summary ---
Author Organization [place] Address [address] [place] [address] Care Team Providers Care Outreach Librarian Name Role Phone Salina Doherty MD Unavailable [phone] Kavon Cadena MD Unavailable [phone] Carrillo Ware APRN AIR CONTROL ELECTRONICS OPERATOR Unavailable [phone] Salina Doherty MD Primary Care Provider [phone] Hillary Unger MD Primary Care P rovider Nelson Arroyo PA-C Primary Care Provider [phone] Hillary Unger MD Primary Care P rovider Angeilca Jerez TRACK COACH Unavailable [phone] Nelson Arroyo PA-C Unavailable [phone] Hillary Unger MD Unavailable Hillary Unger MD Unavailable Hillary Unger MD Unavailable Nelson Arroyo PA-C Unavailable [phone] Nelson Arroyo PA-C Primary Care Provider [phone] Chinyere Barbour Unavailable Unavailable Nelson Arroyo PA-C Unavailable [phone] Pietro Wills MD Unavailable Tank Bucio MD Unavailable Encounter Details Date Type Department Care Team (Late st Contact Info) Description 01/12/2012 [facility] Extended Documentation [facility] [address] [place] [address] CiraCarin nam, ORACLE BRM DEVELOPER, [place]LL [place] [address] Social History Tobacco Use Types Packs/Day Years Used Date Smoking Tobacco: Never Alcohol Use Standard Drinks/Week Comments Yes 0 (1 standard drink = 0.6 oz pur e alcohol) every two weeks Comments No Sex and Gender Information Value Date Recorded Sex Assigned at Female 10/03/2020 8:33 PM CDT Legal Sex Female 3:[address] REPORTER Gender Identity Female 10/03/2020 8:33 PM CDT Sexual Orientation Straight 07/01/2018 3: [address] REPORTER documented as of this encounter Plan of Treatment Not on file documented as of this encounter Visit Diagnoses Not on filedocumented in this encounter Care Teams Outreach Librarian Relationship Specialty Start Date End Date Salina Doherty MD PCP - General Internal Medicine 12/27/14 01/04/15 Hillary Unger MD [address] [place] [address] PCP - General Internal Medicine 01/05/15 08/02/15 Nelson Arroyo PA-C [address] [place] [address] PCP - General Physician Primary Care Provider - Medical 08/03/15 08/20/15 Hillary Unger MD [address] [place] [address] PCP - General Internal Medicine 08/21/15 08/05/18 Nelson Arroyo PA-C [address] [place] [address] PCP - Assigned PCP 04/12/18 05/02/18 Hillary Unger MD [address] [place] [address] PCP - Assigned PCP 02/01/18 04/11/18 Hillary Unger MD [address] [place] [address] PCP - Assigned PCP 05/03/18 07/07/18 Nelson Arroyo PA-C [address] [place] [address] PCP - General Physician Primary Care Provider - Medical 08/06/18 Salina Doherty MD Internal Medicine 12/01/14 Kavon Cadena MD Resident Rheumatology 12/01/14 12/15/14 Carrillo Ware APRN AIR CONTROL ELECTRONICS OPERATOR [address] [place] [address] 757735 Nurse Practitioner Nurse Practitioner 12/16/14 Angelica Jerez NP [facility] [address] [place], [place] 794737 Nurse Practitioner Nurse Practitioner - Family 07/12/16 Hillary Unger MD [address] [place] [address] Assigned PCP 05/03/18 07/18/18 Nelson Arroyo PA-C [address] [place] [address] Assigned PCP 07/05/18 07/29/20 Chinyere Barbour Personal Advocate & Liaison (PAL) 01/31/20 04/26/20 Nelson Arroyo PA-C [address] [place] [address] Assigned PCP 07/30/20 Pietro Wills MD [address] [place] [address] Assigned Heart and Vascular Provider 12/14/22 06/26/24 Tank Bucio MD [address], [facility] 100 [place] [address] Physician processing technologist 12/01/23 documented as of this encounter
--- OUTSIDE RECORDS SUMMARY | 2025-02-01 12:59 | XMS_ITS | Encounter Summary ---
Author Organization [place] Address [address] [place] [address]. [place] [address] Care Team Providers Care Fill Technician Name Role Phone Salina Doherty MD Unavailable [phone] Carrillo Ware APRN LINE MAINTENANCE TECHNICIAN Unavailable [phone] SolitarioAngelica golden NP Unavailable [phone] Nelson Arroyo PA-C Unavailable [phone] Nelson Arroyo PA-C Primary Care Provider Chinyere Barbour Unavailable Unavailable Nelson Arroyo PA-C Unavailable Pietro Wills MD Unavailable Tank Bucio MD Unavailable [phone] Reason for Visit * Reason Onset Date Comments MyChart Communication 10/11/2019 Encounter Details Date Type Department Care Team (Late st Contact Info) Description 10/11/[address] [facility] [address] [facility], [address] [place] [address] Nelson Arroyo PA-C [address] [place] [address] MyChart Communication Social History [...] PM CDT Legal Sex Female 3:44 AM BRAKE REPAIRER BUS Gender Identity Female 10/03/2020 8:33 PM CDT Sexual Orientation Straight 07/01/2018 3: 40 PM BRAKE REPAIRER BUS documented as of this encounter Miscellaneous Notes * Telephone Encounter - Tarik Jaramillo RN - 10/12/2019 2:11 PM CDT Tjobs Recruit message sent to patient per below. Tarik [...] documented as of this encounter Care Teams Fill Technician Relationship Specialty Start Date End Date Nelson Arryoo PA-C [address] [address] PCP - General Physician Spring Up Supervisor - Medical 08/06/18 Salina Doherty MD Internal Medicine 12/01/14 Carrillo Ware APRN LINE MAINTENANCE TECHNICIAN [address] [place] [address] Nurse Practitioner Nurse Practitioner 12/16/14 Angelica Jerez CORPORATE STAFF ACCOUNTANT [facility] [address] [place] [address] Nurse Practitioner Nurse Practitioner - Family 07/12/16 Nelson Arroyo PA-C [address] [place] [address] Assigned PCP 07/05/18 07/29/20 Chinyere Barbour Personal Advocate & Liaison (PAL) 01/31/20 04/26/20 Nelson Arroyo PA-C [address] [place] [address] Assigned PCP 07/30/20 Pietro Wills MD [address] [place] [address] Assigned Heart and Vascular Provider 12/14/22 06/26/24 Tank Bucio MD [address], [facility] 100 [place] [address] Physician waistline joiner overlock 12/01/23 documented as of this encounter
--- OUTSIDE RECORDS SUMMARY | 2025-02-01 12:59 | XMS_ITS | Encounter Summary ---
Author Organization [place] Address [address] [place] [address] Care Team Providers Care Assistant Associate Professor Name Role Phone Salina Doherty MD Unavailable [phone] Carrillo Ware APRN POST SPLITTER Unavailable SolitarioAngelica golden NP Unavailable [phone] Nelson Arroyo PA-C Unavailable [phone] Nelson Arroyo PA-C Primary Care Provider Chinyere Barbour Unavailable Unavailable Nelson Arroyo PA-C Unavailable [phone] Pietro Wills MD Unavailable [phone] Tank Bucio MD Unavailable [phone] Encounter Details Date Type Department Care Team (Late st Contact Info) Description 09/20/2019 MyC Medical Advice [address] [address] Blanca Baker Social History Tobacco [...] PM CDT Legal Sex Female 3:44 AM 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 WELDING SYSTEMS AND EQUIPMENT Gender Identity Female 10/03/2020 8:33 PM CDT Sexual Orientation Straight 07/01/2018 3: 40 PM REPAIRER WELDING SYSTEMS AND EQUIPMENT documented as of this encounter Plan of Treatment Not on file documented as of this encounter Visit Diagnoses Not on filedocumented in this encounter Additional Health Concerns Assessment Noted Time PHQ-9 Depression Total Score: 7 09/29/19 20 7:04 AM CDT documented as of this encounter Care Teams Assistant Associate Professor Relationship Specialty Start Date End Date Nelson Arroyo PA-C [address] [address] PCP - General Physician Machine Operator Farmworker - Medical 08/06/18 Salina Doherty MD Internal Medicine 12/01/14 Carrillo Ware APRN POST SPLITTER [address] [place] [address] Nurse Practitioner Nurse Practitioner 12/16/14 Angelica Jerez NP [address] [address] Nurse Practitioner Nurse Practitioner - Family 07/12/16 Nelson Arroyo PA-C [address] [address] Assigned PCP 07/05/18 07/29/20 Chinyere Barbour Personal Advocate & Liaison (PAL) 01/31/20 04/26/20 Nelson Arroyo PA-C [address] [address] Assigned PCP 07/30/20 Pietro Wills MD [address] [address] Assigned Heart and Vascular Provider 12/14/22 06/26/24 Tank Bucio MD [address] [facility] 100 [place] [address] Physician weather reporter 12/01/23 documented as of this encounter
--- OUTSIDE RECORDS SUMMARY | 2025-02-01 12:59 | XMS_ITS | Encounter Summary ---
Author Organization [place] Address [address] [place] [address]. [place] [address] Care Team Providers Care Technical Asst Name Role Phone Salina Doherty MD Unavailable [phone] Carrillo Ware APRN ELECTRO MECHANICAL TECHNOLOGIST Unavailable SolitarioAngelica golden NP Unavailable [phone] Nelson Arroyo PA-C Unavailable Nelson Arroyo PA-C Primary Care Provider Chinyere Barbour Unavailable Unavailable Nelson Arroyo PA-C Unavailable Pietro Wills MD Unavailable [phone] Tank Bucio MD Unavailable Encounter Details Date Type Department Care Team (Late st Contact Info) Description 03/31/2019 MyC Medical Advice [address], [address] [place] [address] Nelson Arroyo PA-C [address] [place] [address] Social History Tobacco Use Types [...] PM CDT Legal Sex Female 3:44 AM YARD ASSOCIATE Gender Identity Female 10/03/2020 8:33 PM CDT Sexual Orientation Straight 07/01/2018 3: 40 PM YARD ASSOCIATE documented as of this encounter Plan of Treatment Not on file documented as of this encounter Visit Diagnoses Not on filedocumented in this encounter Additional Health Concerns Assessment Noted Time PHQ-9 Depression Total Score: 10 019 2:36 PM CDT documented as of this encounter Care Teams Technical Asst Relationship Specialty Start Date End Date Nelson Arroyo PA-C [address] [place] [address] PCP - General Physician Concrete Form Setter - Medical 08/06/18 Salina Doherty MD Internal Medicine 12/01/14 Carrillo Ware APRN ELECTRO MECHANICAL TECHNOLOGIST [address] [place] [id number] Nurse Practitioner Nurse Practitioner 12/16/14 Angelica Jerez NP [address] 769[address] Nurse Practitioner Nurse Practitioner - Family 07/12/16 Nelson Arroyo PA-C [address] [place] [address] Assigned PCP 07/05/18 07/29/20 Chinyere Barbour Personal Advocate & Liaison (PAL) 01/31/20 04/26/20 Nelson Arroyo PA-C [address] [place] [address] Assigned PCP 07/30/20 Pietro Wills MD [address] [place] [address] Assigned Heart and Vascular Provider 12/14/22 06/26/24 Tank Bucio MD [address] [facility], [address] [address] Physician artificial flowers starcher 12/01/23 documented as of this encounter
--- OUTSIDE RECORDS SUMMARY | 2025-02-01 12:59 | XMS_ITS | Encounter Summary ---
Author Organization [place] Address [address] [place] [address]. [place] [address] Care Team Providers Care Java Xml Developer Name Role Phone Salina Doherty MD Unavailable [phone] Carrillo Ware APRN COMMISSIONER OF RELOCATION SERVICES Unavailable SolitarioAngelica golden NP Unavailable [phone] Nelson Arroyo PA-C Unavailable [phone] Nelson Arroyo PA-C Primary Care Provider [phone] Chinyere Barbour Unavailable Unavailable Nelson Arroyo PA-C Unavailable Pietro Wills MD Unavailable Tank Bucio MD Unavailable Reason for Visit * Reason Onset Date Comments Refill Request 06/21/2019 Seroquel Encounter Details Date Type Department Care Team (Late st Contact Info) Description 06/21/2019 MyC Refill [facility] [address] [facility], [address] [place] [address] [place] [address] [place] [address] Refill Request (Seroquel) Social History [...] PM CDT Legal Sex Female 3:44 AM CDL B DRIVER Gender Identity Female 10/03/2020 8:33 PM CDT Sexual Orientation Straight 07/01/2018 3: 40 PM CDL B DRIVER documented as of this encounter Miscellaneous Notes * Telephone Encounter - Maude Singh RN - 06/23/2019 11:33 AM CST Already refilled. Maude Singh RN B DRIVER documented in this encounter Plan of Treatment Not on file documented as of this encounter Visit Diagnoses Diagnosis Generalized anxiety disorder Major depressive disorder, recurrent episode, moderate (H) Major depressive disorder, recurrent episode, moderate documented in this encounter Additional Health Concerns Assessment Noted Time PHQ-9 Depression Total Score: 10 019 2:36 PM CDT documented as of this encounter Care Teams Java Xml Developer Relationship Specialty Start Date End Date Nelson Arroyo PA-C [address] [place] [address] PCP - General Physician Excel Vba Developer - Medical 08/06/18 Salina Doherty MD Internal Medicine 12/01/14 Carrillo Ware APRN COMMISSIONER OF RELOCATION SERVICES [address] [place] [address] 917445 Nurse Practitioner Nurse Practitioner 12/16/14 Angelica Jerez NP [address] 8864[address] Nurse Practitioner Nurse Practitioner - Family 07/12/16 Nelson Arroyo PA-C [address] [address] Assigned PCP 07/05/18 07/29/20 Chinyere Barbour Personal Advocate & Liaison (PAL) 01/31/20 04/26/20 Nelson Arroyo PA-C [address] [address] Assigned PCP 07/30/20 Pietro Wills MD [address] [place] [address] Assigned Heart and Vascular Provider 12/14/22 06/26/24 Tank Bucio MD [address], [address] [address] Physician java websphere developer 12/01/23 documented as of this encounter
--- OUTSIDE RECORDS SUMMARY | 2025-02-01 12:59 | XMS_ITS | Encounter Summary ---
Author Organization [place] Address [address] [place] [address]. [place] [address] Care Team Providers Care Equipment Inspector Name Role Phone Salina Doherty MD Unavailable [phone] Carrillo Ware APRN TIP STITCHER Unavailable SolitarioAngelica golden NP Unavailable [phone] Nelson Arroyo PA-C Unavailable Nelson Arroyo PA-C Primary Care Provider [phone] Chinyere Barbour Unavailable Unavailable Nelson Arroyo PA-C Unavailable Pietro Wills MD Unavailable [phone] Tank Bucio MD Unavailable Reason for Visit * Reason Onset Date Comments Refill Request 06/14/2019 Tizanidine 4mg Encounter Details Date Type Department Care Team (Late st Contact Info) Description 06/14/2019 MyC Refill [place] [id number] [facility], [address] [place] [address] Nelson Arroyo PA-C [address] [place] [address] Refill Request (Tizanidine 4mg) 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 Sex Female 3:44 AM MANAGER RELOCATION Gender Identity Female 10/03/2020 8:33 PM CDT Sexual Orientation Straight 07/01/2018 3: 40 PM MANAGER RELOCATION documented as of this encounter Miscellaneous Notes * Telephone Encounter - Maude Singh RN - 06/17/2019 1:38 PM CST Tizanidine 4mg Last Written Prescription Date: 04/06/2019 Last Fill Quantity: 120, # refills: 1 Last Office Visit: 02/04/2019 Future Office visit: Next 5 appointments (look out 90 days) Jun 30, 2019 3:00 PM MANAGER RELOCATION MyChart Short with Nelson Arroyo PA-C [facility] ([facility] [address] [place] [address], [address] [address] Routing refill request to provider for review/approval because: Drug not on the [facility], P or [facility] refill protocol or controlled substance. Maude Singh RN GER RELOCATION documented in this encounter Plan of Treatment Not on file documented as of this encounter Visit Diagnoses Diagnosis Persistent insomnia Persistent disorder of initiating or maintaining sleep Muscle spasm Spasm of muscle Cervicalgia documented in this encounter Additional Health Concerns Assessment Noted Time PHQ-9 Depression Total Score: 10 019 2:36 PM CDT documented as of this encounter Care Teams Equipment Inspector Relationship Specialty Start Date End Date Nelson Arroyo PA-C [address] [place] [address] PCP - General Physician Supervisor [place] - Medical 08/06/18 Salina Doherty MD Internal Medicine 12/01/14 Carrillo Ware APRN CNP [address] [place] [address] Nurse Practitioner Nurse Practitioner 12/16/14 Angelica Jerez NP [facility] [place] [facility] [address] [place] [address] Nurse Practitioner Nurse Practitioner - Family 07/12/16 Nelson Arroyo PA-C [address] [place] [address] Assigned PCP 07/05/18 07/29/20 Chinyere Barbour Personal Advocate & Liaison (PAL) 01/31/20 04/26/20 Nelson Arroyo PA-C [address] [place] [address] Assigned PCP 07/30/20 Pietro Wills MD [address] [place] [address] Assigned Heart and Vascular Provider 12/14/22 06/26/24 Tank Bucio MD [address], [facility] [address] [place] [address] Physician floorwalker 12/01/23 documented as of this encounter
--- OUTSIDE RECORDS SUMMARY | 2025-02-01 12:59 | XMS_ITS | Encounter Summary ---
Author Organization [place] Address [address] [place] [address]. [place] [address] Care Team Providers Care Coating Manager Name Role Phone Salina Doherty MD Unavailable [phone] Carrillo Ware APRN TRANSMITTER CHIEF Unavailable [phone] SolitarioAngelica golden NP Unavailable [phone] Nelson Arroyo PA-C Unavailable Nelson Arroyo PA-C Primary Care Provider Chinyere Barbour Unavailable Unavailable Nelson Arroyo PA-C Unavailable Pietro Wills MD Unavailable Tank Bucio MD Unavailable [phone] Reason for Visit * Reason Onset Date Comments Refill Request 06/16/2019 Trazodone Encounter Details Date Type Department Care Team (Late st Contact Info) Description 06/16/2019 MyC Refill [facility] [address] [facility], [address] [place] [address] Nelson Arroyo PA-C [address] [place] [address] Refill Request (Trazodone ) Social [...] PM CDT Legal Sex Female 3:44 AM HAND II TUBE BENDER Gender Identity Female 10/03/2020 8:33 PM CDT Sexual Orientation Straight 07/01/2018 3: 40 PM HAND II TUBE BENDER documented as of this encounter Miscellaneous Notes * Telephone Encounter - Maude Singh RN - 06/18/2019 3:05 PM CST Duplicate. Maude Singh RN II TUBE BENDER documented in this encounter Plan of Treatment Not on file documented as of this encounter Visit Diagnoses Diagnosis Persistent insomnia Persistent disorder of initiating or maintaining sleep documented in this encounter Additional Health Concerns Assessment Noted Time PHQ-9 Depression Total Score: 10 019 2:36 PM CDT documented as of this encounter Care Teams Coating Manager Relationship Specialty Start Date End Date Nelson Arroyo PA-C [address] [place] [address] PCP - General Physician Mixing Supervisor - Medical 08/06/18 Salina Doherty MD Internal Medicine 12/01/14 Carrillo Ware APRN TRANSMITTER CHIEF [address] [place] [address] 214095 Nurse Practitioner Nurse Practitioner 12/16/14 Angelica Jerez NP [address] [address] Nurse Practitioner Nurse Practitioner - Family 07/12/16 Nelson Arroyo PA-C [address], [place] [address] Assigned PCP 07/05/18 07/29/20 Chinyere Barbour Personal Advocate & Liaison (PAL) 01/31/20 04/26/20 Nelson Arroyo PA-C [address], [place] [address] Assigned PCP 07/30/20 Pietro Wills MD [address] [place] [address] Assigned Heart and Vascular Provider 12/14/22 06/26/24 Tank Bucio MD [address], [address] [address] Physician vendor specialist 12/01/23 documented as of this encounter
--- OUTSIDE RECORDS SUMMARY | 2025-02-01 12:59 | XMS_ITS | Encounter Summary ---
Author Organization [facility] Address [address] [place] [address] Care Team Providers Care Cooper Helper Name Role Phone Salina Doherty MD Unavailable [phone] Carrillo Ware APRN RN TRAVELING Unavailable SolitarioAngelica golden NP Unavailable [phone] Nelson Arroyo PA-C Unavailable [phone] Nelson Arroyo PA-C Primary Care Provider [phone] Chinyere Barbour Unavailable Unavailable Nelson Arroyo PA-C Unavailable [phone] Pietro Wills MD Unavailable [phone] Tank Bucio MD Unavailable [phone] Encounter Details Date Type Department Care Team (Late st Contact Info) Description 11/12/2019 [facility] Medical Advice [address] [address] Blanca Baker Social History Tobacco [...] CDT Legal Sex Female 3:44 AM ASSEMBLER RADIO AND ELECTRICAL Gender Identity Female 10/03/2020 8:33 PM CDT Sexual Orientation Straight 07/01/2018 3: 40 PM ASSEMBLER RADIO AND ELECTRICAL documented as of this encounter Plan of Treatment Not on file documented as of this encounter Visit Diagnoses Not on filedocumented in this encounter Additional Health Concerns Assessment Noted Time PHQ-9 Depression Total Score: 7 09/29/19 20 7:04 AM CDT documented as of this encounter Care Teams Cooper Helper Relationship Specialty Start Date End Date Nelson Arroyo PA-C [address] [place] [address] PCP - General Physician Emt Intermediate - Medical 08/06/18 Salina Doherty MD Internal Medicine 12/01/14 Carrillo Ware APRN RN TRAVELING [address] [place] [address] Nurse Practitioner Nurse Practitioner 12/16/14 Angelica Jerez NP [address] [address] Nurse Practitioner Nurse Practitioner - Family 07/12/16 Nelson Arroyo PA-C [address] [address] Assigned PCP 07/05/18 07/29/20 Chinyere Barbour Personal Advocate & Liaison (PAL) 01/31/20 04/26/20 Nelson Arroyo PA-C [address] [address] Assigned PCP 07/30/20 Pietro Wills MD [address] [address] Assigned Heart and Vascular Provider 12/14/22 06/26/24 Tank Bucio MD [address] [facility] 100 [place] [address] Physician marketing research analyst 12/01/23 documented as of this encounter
--- OUTSIDE RECORDS SUMMARY | 2025-02-01 12:59 | XMS_ITS | Encounter Summary ---
Author Organization [place] Address [address] [place] [address]. [place] [address] Care Team Providers Care Route Rider Name Role Phone Salina Doherty MD Unavailable [phone] Carrillo Ware APRN BAIL BONDING AGENT Unavailable SolitarioAngelica golden NP Unavailable [phone] Nelson Arroyo PA-C Primary Care Provider Nelson Arroyo PA-C Unavailable [phone] Pietro Wills MD Unavailable [phone] Tank Bucio MD Unavailable [phone] Encounter Details Date Type Department Care Team (Late st Contact Info) Description 06/22/2022 MyC Medical Advice [facility] [address] [place] [address] Nelson Arroyo PA-C [address] [place] [address] Social History Tobacco Use Types [...] CDT Legal Sex Female 3:44 AM ASSOCIATE DENTIST Gender Identity Female 10/03/2020 8:33 PM CDT Sexual Orientation Straight 07/01/2018 3: 40 PM ASSOCIATE DENTIST documented as of this encounter Plan of Treatment Not on file documented as of this encounter Visit Diagnoses Not on filedocumented in this encounter Additional Health Concerns Assessment Noted Time PHQ-9 Depression Total Score: 7 10/23/19 11:44 AM CDT documented as of this encounter Care Teams Route Rider Relationship Specialty Start Date End Date Nelson Arroyo PA-C [address] [address] PCP - General Physician Wound Care Rn - Medical 08/06/18 Salina Doherty MD Internal Medicine 12/01/14 Carrillo Ware APRN BAIL BONDING AGENT [address] [place] [address] 840735 Nurse Practitioner Nurse Practitioner 12/16/14 Angelica Jerez NP [place] [address] [place], [place] [address] Nurse Practitioner Nurse Practitioner - Family 07/12/16 Nelson Arroyo PA-C [address] [address] Assigned PCP 07/30/20 Pietro Wills MD [address] [address] Assigned Heart and Vascular Provider 12/14/22 06/26/24 Tank Bucio MD [address], [facility] 100 [place] [address] Physician study manager 12/01/23 documented as of this encounter
--- OUTSIDE RECORDS SUMMARY | 2025-02-01 12:59 | XMS_ITS | Encounter Summary ---
Author Organization [place] Address [address] [place] [address] Care Team Providers Care Director Economic Name Role Phone Salina Doherty MD Unavailable Carrillo Ware APRN FUSION ANALYST Unavailable SolitarioAngelica golden NP Unavailable [phone] Nelson Arroyo PA-C Primary Care Provider [phone] Nelson Arroyo PA-C Unavailable [phone] Pietro Wills MD Unavailable [phone] Tank Bucio MD Unavailable Encounter Details Date Type Department Care Team (Late st Contact Info) Description 04/23/2022 [facility] Medical Advice [facility] [address] [facility] [address] [place] [address] Yodit Alexis, [facility] [address] [place] [address] Social History Tobacco Use Types [...] CDT Legal Sex Female 3:44 AM SUPERVISOR VENDOR QUALITY Gender Identity Female 10/03/2020 8:33 PM CDT Sexual Orientation Straight 07/01/2018 3: 40 PM SUPERVISOR VENDOR QUALITY documented as of this encounter Plan of Treatment Not on file documented as of this encounter Visit Diagnoses Not on filedocumented in this encounter Additional Health Concerns Assessment Noted Time PHQ-9 Depression Total Score: 7 10/23/19 22 11:44 AM CDT documented as of this encounter Care Teams Director Economic Relationship Specialty Start Date End Date Nelson Arroyo PA-C [address] [address] PCP - General Physician Genomics Scientist - Medical 08/06/18 Salina Doherty MD Internal Medicine 12/01/14 Carrillo Ware APRN FUSION ANALYST [address] [place] [address] Nurse Practitioner Nurse Practitioner 12/16/14 Angelica Jerez NP [address] 303857 Nurse Practitioner Nurse Practitioner - Family 07/12/16 Nelson Arroyo PA-C [address] [place] [address] Assigned PCP 07/30/20 Pietro Wills MD [address] [address] Assigned Heart and Vascular Provider 12/14/22 06/26/24 Tank Bucio MD [address] [facility], [facility] [address] [place] [address] Physician travel assistant 12/01/23 documented as of this encounter
--- OUTSIDE RECORDS SUMMARY | 2025-02-01 12:59 | XMS_ITS | Encounter Summary ---
Author Organization [place] Address [address] [place] [address] Care Team Providers Care Garment Parts Cutter Hand Name Role Phone Salina Doherty MD Unavailable [phone] Carrillo Ware APRN SPICE BLENDER Unavailable Hillary Unger MD Primary Care P rovider [facility] NP Unavailable [phone] Nelson Arroyo PA-C Unavailable Hillary Unger MD Unavailable Hillary Unger MD Unavailable Hillary Unger MD Unavailable Nelson Arroyo PA-C Unavailable [phone] Nelson Arroyo PA-C Primary Care Provider Chinyere Barbour Unavailable Unavailable Nelson Arroyo PA-C Unavailable [phone] Pietro Wills MD Unavailable [phone] Tank Bucio MD Unavailable [phone] Encounter Details Date Type Department Care Team (Late st Contact Info) Description 04/02/2017 [facility] Mental Health & Addiction [address] [place] [id number] Angelica Jerez MINE EQUIPMENT DESIGN ENGINEER [address] [place], [place] [id number] Social History Tobacco Use Types Packs/Day Years [...] CDT Legal Sex Female 3:44 AM FLOOR SPACE ALLOCATOR Gender Identity Female 10/03/2020 8:33 PM CDT Sexual Orientation Straight 07/01/2018 3: 40 PM FLOOR SPACE ALLOCATOR documented as of this encounter Miscellaneous Notes * Telephone Encounter - Ila Veliz RN - 04/03/2017 8:14 AM CST Pt is requesting earlier appointment today if available. Thank you! Ila Veliz RN R SPACE ALLOCATOR documented in this encounter Plan of Treatment Not on file documented as of this encounter Visit Diagnoses Not on filedocumented in this encounter Additional Health Concerns Assessment Noted Time PHQ-9 Depression Total Score: 3 12/07/19 17 2:21 PM CDT documented as of this encounter Care Teams Garment Parts Cutter Hand Relationship Specialty Start Date End Date Hillary Unger MD [address] [place] [address] PCP - General Internal Medicine 08/21/15 08/05/18 Nelson Arroyo PA-C [address] [place] [address] PCP - Assigned PCP 04/12/18 05/02/18 Hillary Unger MD [address] [place] [address] PCP - Assigned PCP 02/01/18 04/11/18 Hillary Unger MD [address] [place] [address] PCP - Assigned PCP 05/03/18 07/07/18 Nelson Arroyo PA-C [address] [place] [id number] PCP - General Physician Individual Pension Consultant - Medical 08/06/18 Salina Doherty MD Internal Medicine 12/01/14 Carrillo Ware APRN SPICE BLENDER [address] [place] [address] Nurse Practitioner Nurse Practitioner 12/16/14 Angelica Jerez NP [facility] [address] [place] [address] Nurse Practitioner Nurse Practitioner - Family 07/12/16 Hillary Unger MD [address] [place] [address] Assigned PCP 05/03/18 07/18/18 Nelson Arroyo PA-C [address] [address] Assigned PCP 07/05/18 07/29/20 Chinyere Barbour Personal Advocate & Liaison (PAL) 01/31/20 04/26/20 Nelson Arroyo PA-C [address] [place] [address] Assigned PCP 07/30/20 Pietro Wills MD [address] [place] [address] Assigned Heart and Vascular Provider 12/14/22 06/26/24 Tank Bucio MD [address], [address] [address] Physician cattle brander 12/01/23 documented as of this encounter
--- OUTSIDE RECORDS SUMMARY | 2025-02-01 12:59 | XMS_ITS | Encounter Summary ---
Author Organization [place] Address [address] [place] [address]. [place] [address] Care Team Providers Care Weather Forecaster Name Role Phone Salina Doherty MD Unavailable Carrillo Ware APRN CERTIFIED HOME HEALTH AIDE Unavailable SolitarioAngelica golden NP Unavailable [phone] Nelson Arroyo PA-C Primary Care Provider Nelson Arroyo PA-C Unavailable Pietro Wills MD Unavailable Tank Bucio MD Unavailable [phone] Encounter Details Date Type Department Care Team (Late st Contact Info) Description 06/26/2022 MyC Medical Advice [facility] [address] [place] [address] Nelson Arroyo PA-C [address] [place] [address] Muscle spasm; Palpitations Social History [...] Legal Sex Female 3:44 AM DIRECTOR OF OPERATIONS Gender Identity Female 10/03/2020 8:33 PM CDT Sexual Orientation Straight 07/01/2018 3: 40 PM DIRECTOR OF OPERATIONS documented as of this encounter Miscellaneous Notes * Telephone Encounter - Amanda Unger - 06/28/2022 7:52 AM CST Patient is scheduled for 08/15 with PCP CTOR OF OPERATIONS * Telephone Encounter - Nelson Arroyo PA-C - 06/27/2022 2:51 PM DIRECTOR OF OPERATIONS I [facility] If I'm wrong I apologize. I do need to seeher for an appointment however as it has been a long while! Nelson CTOR OF OPERATIONS * Telephone Encounter - Ashely Naylor RN - 06/27/2022 7:41 AM CST Routing refill request to provider for review/approval because: Drug not on the [facility] refill protocol CTOR OF OPERATIONS documented in this encounter Plan of Treatment Not on file documented as of this encounter Visit Diagnoses Diagnosis Muscle spasm Spasm of muscle Palpitations documented in this encounter Additional Health Concerns Assessment Noted Time PHQ-9 Depression Total Score: 7 10/23/19 22 11:44 AM CDT documented as of this encounter Care Teams Weather Forecaster Relationship Specialty Start Date End Date Nelson Arroyo PA-C [address] [address] PCP - General Physician Manpower Development Manager - Medical 08/06/18 Salina Doherty MD Internal Medicine 12/01/14 Carrillo Ware APRN CERTIFIED HOME HEALTH AIDE [address] [place] [address]8775 Nurse Practitioner Nurse Practitioner 12/16/14 Angelica Jerez NP [facility] [address] [place], [place] [address] Nurse Practitioner Nurse Practitioner - Family 07/12/16 Nelson Arroyo PA-C [address] [place] [address] Assigned PCP 07/30/20 Pietro Wills MD [address] [place] [address] Assigned Heart and Vascular Provider 12/14/22 06/26/24 Tank Bucio MD [address] [facility], [address] [address] Physician magazine worker 12/01/23 documented as of this encounter
--- OUTSIDE RECORDS SUMMARY | 2025-02-01 12:59 | XMS_ITS | Encounter Summary ---
Author Organization [facility] Address [address] [place] [address]. [place] [address] Care Team Providers Care Senior Game Advisor Name Role Phone Salina Doherty MD Unavailable [phone] Carrillo Ware APRN HEMMER LOCKSTITCH Unavailable SolitarioAngelica golden NP Unavailable [phone] Nelson Arroyo PA-C Unavailable Nelson Arroyo PA-C Primary Care Provider Chinyere Barbour Unavailable Unavailable Nelson Arroyo PA-C Unavailable Pietro Wills MD Unavailable [phone] Tank Bucio MD Unavailable Reason for Visit * Reason Onset Date Comments Refill Request 04/05/2019 Encounter Details Date Type Department Care Team (Late st Contact Info) Description 04/05/2019 MyC Pietro [facility] [id number] [place] [address], [address] [place] [address] Nelson Arroyo PA-C [address] [place] [address] Refill Request Social History Tobacco [...] CDT Legal Sex Female 3:44 AM ENGINEERING RESEARCH MANAGER Gender Identity Female 10/03/2020 8:33 PM CDT Sexual Orientation Straight 07/01/2018 3: 40 PM ENGINEERING RESEARCH MANAGER documented as of this encounter Plan of Treatment Not on file documented as of this encounter Visit Diagnoses Diagnosis Muscle spasm Spasm of muscle Cervicalgia documented in this encounter Additional Health Concerns Assessment Noted Time PHQ-9 Depression Total Score: 10 019 2:36 PM CDT documented as of this encounter Care Teams Senior Game Advisor Relationship Specialty Start Date End Date Nelson Arroyo PA-C [address] [place], [place] [address] PCP - General Physician Aircraft Maintenance Supervisor - Medical 08/06/18 Salina Doherty MD Internal Medicine 12/01/14 Carrillo Ware APRN HEMMER LOCKSTITCH [address] [place] [address] Nurse Practitioner Nurse Practitioner 12/16/14 Angelica Jerez NP [place] [address] [address] [place], [place] [address] Nurse Practitioner Nurse Practitioner - Family 07/12/16 Nelson Arroyo PA-C [address] [place] [address] Assigned PCP 07/05/18 07/29/20 Chinyere Barbour Personal Advocate & Liaison (PAL) 01/31/20 04/26/20 Nelson Arroyo PA-C [address] [place] [address] Assigned PCP 07/30/20 Pietro Wills MD [address] [address] Assigned Heart and Vascular Provider 12/14/22 06/26/24 Tank Bucio MD [address] [facility], [address] [address] Physician hairspring inspector 12/01/23 documented as of this encounter
--- OUTSIDE RECORDS SUMMARY | 2025-02-01 12:59 | XMS_ITS | Encounter Summary ---
Author Organization [place] Address [address] [place] [address] Care Team Providers Care Tubing Mill Setter Name Role Phone Salina Doherty MD Unavailable [phone] Carrillo Ware APRN SUPERVISOR CELL MAINTENANCE Unavailable [phone] Hillary Unger MD Primary Care P rovider [facility] NP Unavailable [phone] Nelson Arroyo PA-C Unavailable Hillary Unger MD Unavailable Hillary Unger MD Unavailable Hillary Unger MD Unavailable Nelson Arroyo PA-C Unavailable [phone] Nelson Arroyo PA-C Primary Care Provider Chinyere Barbour Unavailable Unavailable Nelson Arroyo PA-C Unavailable [phone] Pietro Wills MD Unavailable [phone] Tank Bucio MD Unavailable [phone] Encounter Details Date Type Department Care Team (Late st Contact Info) Description 06/17/2017 [facility] Medical [facility] Mental Health & Addiction [address] [place] [address] Solitario Angelica Gautam, ASH PIT WORKER [address] [place] [address] Social History Tobacco Use Types Packs/Day Years [...] PM CDT Legal Sex Female 3:44 AM X RAY TECHNICIAN Gender Identity Female 10/03/2020 8:33 PM CDT Sexual Orientation Straight 07/01/2018 3: 40 PM X RAY TECHNICIAN documented as of this encounter Plan of Treatment Not on file documented as of this encounter Visit Diagnoses Not on filedocumented in this encounter Additional Health Concerns Assessment Noted Time PHQ-9 Depression Total Score: 4 04/04/20 17 7:13 AM X RAY TECHNICIAN documented as of this encounter Care Teams Tubing Mill Setter Relationship Specialty Start Date End Date Hillary Unger MD [address] [place] [address] PCP - General Internal Medicine 08/21/15 08/05/18 Nelson Arroyo PA-C [address] [place] [address] PCP - Assigned PCP 04/12/18 05/02/18 Hillary Unger MD [address] [place] [address] PCP - Assigned PCP 02/01/18 04/11/18 Hillary Unger MD [address] [place] [address] PCP - Assigned PCP 05/03/18 07/07/18 Nelson Arroyo PA-C [address] [place] [address] PCP - General Physician Pump House Technician - Medical 08/06/18 Salina Doherty MD Internal Medicine 12/01/14 Carrillo Ware APRN SUPERVISOR CELL MAINTENANCE [address] [place] [address] Nurse Practitioner Nurse Practitioner 12/16/14 Angelica Jerez ASH PIT WORKER [facility] [address] [place], [place] [address] Nurse Practitioner Nurse Practitioner - Family 07/12/16 Hillary Unger MD [address] [place] [address] Assigned PCP 05/03/18 07/18/18 Nelson Arroyo PA-C [address] [place] [address] Assigned PCP 07/05/18 07/29/20 Chinyere Barbour Personal Advocate & Liaison (PAL) 01/31/20 04/26/20 Nelson Arroyo [place]-C [address] [place] [address] Assigned PCP 07/30/20 Pietro Wills MD [address] [address] Assigned Heart and Vascular Provider 12/14/22 06/26/24 Tank Bucio MD [address], [facility] [address] [place] [address] Physician marketing reporting analyst 12/01/23 documented as of this encounter
--- OUTSIDE RECORDS SUMMARY | 2025-02-01 13:00 | XMS_ITS | Encounter Summary ---
Author Organization [place] Address [address] [place] [address]. [place] [address] Care Team Providers Care Elementary Teacher Name Role Phone Salina Doherty MD Unavailable [phone] Carrillo Ware APRN DYE REEL OPERATOR Unavailable [phone] SolitarioAngelica golden NP Unavailable [phone] Nelson Arroyo PA-C Primary Care Provider Nelson Arroyo PA-C Unavailable Pietro Wills MD Unavailable Tank Bucio MD Unavailable [phone] Reason for Visit * Reason Comments Medication Refill Encounter Details Date Type Department Care Team (Late st Contact Info) Description 08/07/2021 Refill [facility] [address] [place] [address] Nelson Arroyo PA-C [address] [place] [address] Medication Refill Social History Tobacco [...] PM CDT Legal Sex Female 3:44 AM ROLLER PRINTER Gender Identity Female 10/03/2020 8:33 PM CDT Sexual Orientation Straight 07/01/2018 3: 40 PM ROLLER PRINTER COVID-19 Exposure Response Date Recorded In the [...] Total Score: 9 06/04/19 22 12:13 PM ROLLER PRINTER documented as of this encounter Care Teams Elementary Teacher Relationship Specialty Start Date End Date Nelson Arroyo PA-C [address] [place] [address] PCP - General Physician Plastics Fitter - Medical 08/06/18 Salina Doherty MD Internal Medicine 12/01/14 Carrillo Ware APRN DYE REEL OPERATOR [address] [place] [address] Nurse Practitioner Nurse Practitioner 12/16/14 Angelica Jerez NP [facility] [address] [place] [address] Nurse Practitioner Nurse Practitioner - Family 07/12/16 Nelson Arroyo PA-C [address] [place] [address] Assigned PCP 07/30/20 Pietro Wills MD [address] [place] [address] Assigned Heart and Vascular Provider 12/14/22 06/26/24 Tank Bucio MD [address], [facility] [address] [place] [address] Physician leaf sorter 12/01/23 documented as of this encounter
--- OUTSIDE RECORDS SUMMARY | 2025-02-01 13:00 | XMS_ITS | Encounter Summary ---
Author Organization [place] Address [address] [place] [address]. [place] [address] Care Team Providers Care Concrete Finisher Apprentice Name Role Phone Salina Doherty MD Unavailable [phone] Carrillo Ware APRN PACKING AND STAMPING MACHINE OPERATOR Unavailable [phone] SolitarioAngelica golden NP Unavailable [phone] Nelson Arroyo PA-C Unavailable [phone] Nelson Arroyo PA-C Primary Care Provider Chinyere Barbour Unavailable Unavailable Nelson Arroyo PA-C Unavailable Pietro Wills MD Unavailable Tank Bucio MD Unavailable [phone] Reason for Visit * Reason Comments Medication Refill Encounter Details Date Type Department Care Team (Late st Contact Info) Description 08/18/[address], [address] [place] [address] Nelson Arroyo PA-C [address] [place] [address] Medication Refill Social History Tobacco [...] CDT Legal Sex Female 3:44 AM MINE SHIFTER Gender Identity Female 10/03/2020 8:33 PM CDT Sexual Orientation Straight 07/01/2018 3: 40 PM MINE SHIFTER documented as of this encounter Miscellaneous Notes [...] 08/18/2019 4:12 PM CDT Prescription approved per [facility] Refill Protocol - Hydroxyzine Maude Singh RN documented in this encounter Plan of Treatment Not on file documented as of this encounter Visit Diagnoses Diagnosis Generalized anxiety disorder Persistent insomnia Persistent disorder of initiating or maintaining sleep documented in this encounter Additional Health Concerns Assessment Noted Time PHQ-9 Depression Total Score: 10 020 3:04 PM MINE SHIFTER documented as of this encounter Care Teams Concrete Finisher Apprentice Relationship Specialty Start Date End Date Nelson Arroyo PA-C [address] [place] [address] PCP - General Physician Flatbed Driver - Medical 08/06/18 Salina Doherty MD Internal Medicine 12/01/14 Carrillo Ware APRN PACKING AND STAMPING MACHINE OPERATOR [address] [place] [address] Nurse Practitioner Nurse Practitioner 12/16/14 Angelica Jerez MEDICAL SERVICE TECHNICIAN [facility] [address] [place] [address] Nurse Practitioner Nurse Practitioner - Family 07/12/16 Nelson Arroyo PA-C [address] [place] [address] Assigned PCP 07/05/18 07/29/20 Chinyere Barbour Personal Advocate & Liaison (PAL) 01/31/20 04/26/20 Nelson Arroyo PA-C [address] [place] [id number] Assigned PCP 07/30/20 Pietro Wills MD [address] [place] [address] Assigned Heart and Vascular Provider 12/14/22 06/26/24 Tank Bucio MD [address], [facility] 100 [place] [address] Physician mechanical press operator 12/01/23 documented as of this encounter
--- OUTSIDE RECORDS SUMMARY | 2025-02-01 13:00 | XMS_ITS | Encounter Summary ---
Author Organization [place] Address [address] [place] [address]. [place] [address] Care Team Providers Care Inner Diameter Grinder Tool Name Role Phone Salina Doherty MD Unavailable Carrillo Ware APRN STAFF COUNSELOR Unavailable SolitarioAngelica golden NP Unavailable [phone] Nelson Arroyo PA-C Primary Care Provider [phone] Nelson Arroyo PA-C Unavailable [phone] Pietro Wills MD Unavailable Tank Bucio MD Unavailable [phone] Reason for Visit * Reason Onset Date Comments Refill Request 12/10/2021 Encounter Details Date Type Department Care Team (Late st Contact Info) Description 12/10/2021 MyC Refill [facility] [address] [place] [address] Nelson Arroyo PA-C [address] [place] [address] Refill Request Social History Tobacco [...] PM CDT Legal Sex Female 3:44 AM PERFECT BINDER SETTER Gender Identity Female 10/03/2020 8:33 PM CDT Sexual Orientation Straight 07/01/2018 3: 40 PM PERFECT BINDER SETTER documented as of this encounter Plan of Treatment Not on file documented as of this encounter Visit Diagnoses Diagnosis Generalized anxiety disorder documented in this encounter Additional Health Concerns Assessment Noted Time PHQ-9 Depression Total Score: 7 10/23/19 22 11:44 AM CDT documented as of this encounter Care Teams Inner Diameter Grinder Tool Relationship Specialty Start Date End Date Nelson Arroyo PA-C [address] [place] [address] PCP - General Physician Engineer Operations And Maintenance - Medical 08/06/18 Salina Doherty MD Internal Medicine 12/01/14 Carrillo Ware APRN STAFF COUNSELOR [address] [place] [address] 170465 Nurse Practitioner Nurse Practitioner 12/16/14 Angelica Jerez NP [place] [address] [place], [place] 249[address] Nurse Practitioner Nurse Practitioner - Family 07/12/16 Nelson Arroyo PA-C [address] [address] Assigned PCP 07/30/20 Pietro Wills MD [address] [id number] Assigned Heart and Vascular Provider 12/14/22 06/26/24 Tank Bucio MD [address], [address] [address] Physician spreader operator 12/01/23 documented as of this encounter
--- OUTSIDE RECORDS SUMMARY | 2025-02-01 13:00 | XMS_ITS | Encounter Summary ---
Author Organization [facility] Address [address] [place] [address]. [place] [address] Care Team Providers Care Pharmaceutical Process Engineer Name Role Phone Salina Doherty MD Unavailable [phone] Carrillo Ware APRN EARLY CHILDHOOD WORKER Unavailable SolitarioAngelica golden NP Unavailable [phone] Nelson Arroyo PA-C Unavailable Nelson Arroyo PA-C Primary Care Provider [phone] Chinyere Barbour Unavailable Unavailable Nelson Arroyo PA-C Unavailable Pietro Wills MD Unavailable Tank Bucio MD Unavailable Reason for Visit * Reason Onset Date Comments Appointment 06/29/2019 Encounter Details Date Type Department Care Team (Late st Contact Info) Description 06/29/2019 MyC Medical Advice [facility] [address] [place] [address], [address] [place] [address] Nelson Arroyo PA-C [address] [place] [address] Appointment Social History Tobacco Use [...] PM CDT Legal Sex Female 3:44 AM MOTORS AND CONTROLS TESTER Gender Identity Female 10/03/2020 8:33 PM CDT Sexual Orientation Straight 07/01/2018 3: 40 PM MOTORS AND CONTROLS TESTER documented as of this encounter Plan of Treatment Not on file documented as of this encounter Visit Diagnoses Not on filedocumented in this encounter Additional Health Concerns Assessment Noted Time PHQ-9 Depression Total Score: 10 019 2:36 PM CDT documented as of this encounter Care Teams Pharmaceutical Process Engineer Relationship Specialty Start Date End Date Nelson Arroyo PA-C [address] [place] [address] PCP - General Physician Petroleum Refining Firer - Medical 08/06/18 Salina Doherty MD Internal Medicine 12/01/14 Carrillo Ware APRN EARLY CHILDHOOD WORKER [address] [place] [address] Nurse Practitioner Nurse Practitioner 12/16/14 Angelica Jerez NP [place] [address] [place] [address] Nurse Practitioner Nurse Practitioner - Family 07/12/16 Nelson Arroyo PA-C [address] [place] [address] Assigned PCP 07/05/18 07/29/20 Chinyere Barbour Personal Advocate & Liaison (PAL) 01/31/20 04/26/20 Nelson Arroyo PA-C [address] [place] [address] Assigned PCP 07/30/20 Pietro Wills MD [address] [place] [address] Assigned Heart and Vascular Provider 12/14/22 06/26/24 Tank Bucio MD [address] [facility], [facility] 100 [place] [address] Physician behavioral modification assistant 12/01/23 documented as of this encounter
--- OUTSIDE RECORDS SUMMARY | 2025-02-01 13:00 | XMS_ITS | Encounter Summary ---
Author Organization [place] Address [facility] [place] [address] Care Team Providers Care Warning Coordination Meteorologist Name Role Phone Salina Doherty MD Unavailable Carrillo Ware APRN RESIDENT HALL DIRECTOR Unavailable SolitarioAngelica golden NP Unavailable [phone] Nelson Arroyo PA-C Primary Care Provider Nelson Arroyo PA-C Unavailable [phone] Pietro Wills MD Unavailable Tank Bucio MD Unavailable [phone] Encounter Details Date Type Department Care Team (Late st Contact Info) Description 11/06/2021 MyC Medical Advice [facility] [address] [facility] [address] [place] [id number] Beka Vela, OTR/L Social History Tobacco Use [...] PM CDT Legal Sex Female 3:44 AM PULP COOKER Gender Identity Female 10/03/2020 8:33 PM CDT Sexual Orientation Straight 07/01/2018 3: 40 PM PULP COOKER documented as of this encounter Plan of Treatment Not on file documented as of this encounter Visit Diagnoses Not on filedocumented in this encounter Additional Health Concerns Assessment Noted Time PHQ-9 Depression Total Score: 7 10/23/19 22 11:44 AM CDT documented as of this encounter Care Teams Warning Coordination Meteorologist Relationship Specialty Start Date End Date Nelson Arroyo PA-C [address] [place] [address] PCP - General Physician Aluminum Shingle Roofer - Medical 08/06/18 Salina Doherty MD Internal Medicine 12/01/14 Carrillo Ware APRN RESIDENT HALL DIRECTOR [address] [place] [address] 8549[address] Nurse Practitioner Nurse Practitioner 12/16/[address] Jerez NP [facility] [address] [place], [place] [address] Nurse Practitioner Nurse Practitioner - Family 07/12/16 Nelson Arroyo PA-C [address] [place] [address] Assigned PCP 07/30/20 Pietro Wills MD [address] [place] [address] Assigned Heart and Vascular Provider 12/14/22 06/26/24 Tank Bucio MD [address] [address] Physician pipe layer helper 12/01/23 documented as of this encounter
--- OUTSIDE RECORDS SUMMARY | 2025-02-01 13:00 | XMS_ITS | Encounter Summary ---
Author Organization [place] Address [address] [place] [address] Care Team Providers Care Neighborhood Aide Name Role Phone Salina Doherty MD Unavailable [phone] Carrillo Ware APRN MATERIAL HANDLER LOADER Unavailable [phone] SolitarioAngelica golden NP Unavailable [phone] Nelson Arroyo PA-C Primary Care Provider Nelson Arroyo PA-C Unavailable [phone] Pietro Wills MD Unavailable Tank Bucio MD Unavailable [phone] Encounter Details Date Type Department Care Team (Late st Contact Info) Description 02/15/2022 [facility] Medical Advice [address] [address] Damaso Loza, JONEL Social History [...] PM CDT Legal Sex Female 3:44 AM SCOOP MACHINE OPERATOR Gender Identity Female 10/03/2020 8:33 PM CDT Sexual Orientation Straight 07/01/2018 3: 40 PM SCOOP MACHINE OPERATOR documented as of this encounter Plan of Treatment Not on file documented as of this encounter Visit Diagnoses Not on filedocumented in this encounter Additional Health Concerns Assessment Noted Time PHQ-9 Depression Total Score: 7 10/23/19 22 11:44 AM CDT documented as of this encounter Care Teams Neighborhood Aide Relationship Specialty Start Date End Date Nelson Arroyo PA-C [address] [place] [address] PCP - General Physician Client Analyst - Medical 08/06/18 Salina Doherty MD Internal Medicine 12/01/14 Carrillo Ware APRN MATERIAL HANDLER LOADER [address] [place] [address] Nurse Practitioner Nurse Practitioner 12/16/14 Angelica Jerez NP [facility] [address] [place], [place] [address] Nurse Practitioner Nurse Practitioner - Family 07/12/16 Nelson Arroyo PA-C [address] [place] [address] Assigned PCP 07/30/20 Pietro Wills MD [address] [place] [address] Assigned Heart and Vascular Provider 12/14/22 06/26/24 Tank Bucio MD [address] [address] Physician slot supervisor 12/01/23 documented as of this encounter
--- OUTSIDE RECORDS SUMMARY | 2025-02-01 13:00 | XMS_ITS | Encounter Summary ---
Author Organization [facility] Address [address] [place] [address] Care Team Providers Care Bridge Contractor Name Role Phone Salina Doherty MD Unavailable [phone] Carrillo Ware APRN FONDANT MACHINE OPERATOR Unavailable [phone] Hillary Unger MD Primary Care P rovider ScionhealthAngelica NP Unavailable [phone] Nelson Arroyo PA-C Unavailable [phone] Hillary Unger MD Unavailable Hillary Unger MD Unavailable Hillary Unger MD Unavailable Nelson Arroyo PA-C Unavailable [phone] Nelson Arroyo PA-C Primary Care Provider Chinyere Barbour Unavailable Unavailable Nelson Arroyo PA-C Unavailable [phone] Pietro Wills MD Unavailable [phone] Tank Bucio MD Unavailable [phone] Reason for Visit * Reason Onset Date Comments Mass 05/30/2017 Golf-ball sized painful lump on head Encounter Details Date Type Department Care Team (Late st Contact Info) Description 05/30/2017 [facility] [address] [place] [address] [place] [address] Hillary Unger MD [address] [place] [address] Mass (Golf-ball sized painful lump on head) [...] CDT Legal Sex Female 3:44 AM SUBSTATION SUPERVISOR Gender Identity Female 10/03/2020 8:33 PM CDT Sexual Orientation Straight 07/01/2018 3: 40 PM SUBSTATION SUPERVISOR documented as of this encounter Miscellaneous Notes * Telephone Encounter - Shira Chow CMA - 05/30/2017 6:49 PM SUBSTATION SUPERVISOR Tried calling pt on her cell, no answer. Spoke to Nancy ROLDAN, who thought it would be best to recommend that she go to an urgent care seeing as how we really don't have enough information to know if the pt is dealing with something serious or not. Will route to Dr. Tran as high-priority. TATION SUPERVISOR * Telephone Encounter - Shira Chow CMA - 05/30/2017 6:28 PM SUBSTATION SUPERVISOR Routed to Dr. Tran. TATION SUPERVISOR documented in this encounter Plan of Treatment Not on file documented as of this encounter Visit Diagnoses Not on filedocumented in this encounter Additional Health Concerns Assessment Noted Time PHQ-9 Depression Total Score: 4 04/04/20 17 7:13 AM SUBSTATION SUPERVISOR documented as of this encounter Care Teams Bridge Contractor Relationship Specialty Start Date End Date Hillary Unger MD [address] [place] [address] PCP - General Internal Medicine 08/21/15 08/05/18 Nelson Arroyo PA-C [address] [place] [address] PCP - Assigned PCP 04/12/18 05/02/18 Hillary Unger MD [address] [place] [address] PCP - Assigned PCP 02/01/18 04/11/18 Hillary Unger MD [address] [place] [address] PCP - Assigned PCP 05/03/18 07/07/18 Nelson Arroyo PA-C [address] [place] [address] PCP - General Physician Border Guard - Medical 08/06/18 Salina Doherty MD Internal Medicine 12/01/14 Carrillo Ware APRN FONDANT MACHINE OPERATOR [address] [place] [address] 464815 Nurse Practitioner Nurse Practitioner 12/16/14 Angelica Jerez NP [facility] [address] [place], [place] [address] Nurse Practitioner Nurse Practitioner - Family 07/12/16 Hillary Unger MD [address] [place] [address] Assigned PCP 05/03/18 07/18/18 Nelson Arroyo PA-C [address] [place] [address] Assigned PCP 07/05/18 07/29/20 Chinyere Barbour Personal Advocate & Liaison (PAL) 01/31/20 04/26/20 Nelson Arroyo PA-C [address] [place] [address] Assigned PCP 07/30/20 Pietro Wills MD [address] [place] [address] Assigned Heart and Vascular Provider 12/14/22 06/26/24 Tank Bucio MD [address], [address] [place] [address] Physician summer nanny 12/01/23 documented as of this encounter
--- OUTSIDE RECORDS SUMMARY | 2025-02-01 13:00 | XMS_ITS | Encounter Summary ---
Author Organization [place] Address [address] [place] [address] Care Team Providers Care Chief Nuclear Medicine Technologist Name Role Phone Salina Doherty MD Unavailable [phone] Carrillo Ware APRN OPENSTACK DEVELOPER Unavailable [phone] SolitarioAngelica golden NP Unavailable [phone] Nelson Arroyo PA-C Unavailable [phone] Nelson Arroyo PA-C Primary Care Provider Chinyere Barbour Unavailable Unavailable Nelson Arroyo PA-C Unavailable [phone] Pietro Wills MD Unavailable [phone] Tank Bucio MD Unavailable [phone] Encounter Details Date Type Department Care Team (Late st Contact Info) Description 07/15/2019 MyC Medical Advice [facility] [address] [place] [address], [address] [place] [address] Blanca Baker Social History Tobacco [...] CDT Legal Sex Female 3:44 AM CHIEF OF PEDIATRIC UROLOGY Gender Identity Female 10/03/2020 8:33 PM CDT Sexual Orientation Straight 07/01/2018 3: 40 PM CHIEF OF PEDIATRIC UROLOGY documented as of this encounter Plan of Treatment Not on file documented as of this encounter Visit Diagnoses Not on filedocumented in this encounter Additional Health Concerns Assessment Noted Time PHQ-9 Depression Total Score: 10 020 3:04 PM CHIEF OF PEDIATRIC UROLOGY documented as of this encounter Care Teams Chief Nuclear Medicine Technologist Relationship Specialty Start Date End Date Nelson Arroyo PA-C [address] [address] PCP - General Physician Channel Business Manager - Medical 08/06/18 Salina Doherty MD Internal Medicine 12/01/14 Carrillo Ware APRN OPENSTACK DEVELOPER [address] [place] [address] Nurse Practitioner Nurse Practitioner 12/16/14 Angelica Jerez NP [address] [address] Nurse Practitioner Nurse Practitioner - Family 07/12/16 Nelson Arroyo PA-C [address] [address] Assigned PCP 07/05/18 07/29/20 Chinyere Barbour Personal Advocate & Liaison (PAL) 01/31/20 04/26/20 Nelson Arroyo PA-C [address] [address] Assigned PCP 07/30/20 Pietro Wlils MD [address] [place] [address] Assigned Heart and Vascular Provider 12/14/22 06/26/24 Tank Bucio MD [address] [facility] [address] [place] [address] Physician private security guard 12/01/23 documented as of this encounter
--- OUTSIDE RECORDS SUMMARY | 2025-02-01 13:00 | XMS_ITS | Encounter Summary ---
Author Organization [place] Address [address] [place] [address]. [place] [address] Care Team Providers Care Program Architect Name Role Phone Salina Doherty MD Unavailable [phone] Carrillo Ware APRN SPECIMEN ACCESSIONER Unavailable SolitarioAngelica golden NP Unavailable [phone] Nelson Arroyo PA-C Unavailable Nelson Arroyo PA-C Primary Care Provider [phone] Chinyere Barbour Unavailable Unavailable Nelson Arroyo PA-C Unavailable Pietro Wills MD Unavailable [phone] Tank Bucio MD Unavailable Reason for Visit * Reason Onset Date Comments Lab Only 08/03/2019 Encounter Details Date Type Department Care Team (Late st Contact Info) Description 08/03/2019 MyC Medical Advice [facility] [address] [facility], [address] [place] [address] Nelson Arroyo PA-C [address] [place] [address] Lab Only Social History Tobacco [...] PM CDT Legal Sex Female 3:44 AM REGIONAL CRA Gender Identity Female 10/03/2020 8:33 PM CDT Sexual Orientation Straight 07/01/2018 3: 40 PM REGIONAL CRA documented as of this encounter Plan of Treatment Not on file documented as of this encounter Visit Diagnoses Not on filedocumented in this encounter Additional Health Concerns Assessment Noted Time PHQ-9 Depression Total Score: 10 020 3:04 PM REGIONAL CRA documented as of this encounter Care Teams Program Architect Relationship Specialty Start Date End Date Nelson Arroyo PA-C [address] [place] [address] PCP - General Physician Metal Temperer - Medical 08/06/18 Salina Doherty MD Internal Medicine 12/01/14 Carrillo Ware APRN SPECIMEN ACCESSIONER [address] [place] [address] Nurse Practitioner Nurse Practitioner 12/16/14 Angelica Jerez NP [place] [address] [place] [address] Nurse Practitioner Nurse Practitioner - Family 07/12/16 Nelson Arroyo PA-C [address] [place] [address] Assigned PCP 07/05/18 07/29/20 Chinyere Barbour Personal Advocate & Liaison (PAL) 01/31/20 04/26/20 Nelson Arroyo PA-C [address] [place] [address] Assigned PCP 07/30/20 Pietro Wills MD [address] [place] [address] Assigned Heart and Vascular Provider 12/14/22 06/26/24 Tank Bucio MD [address] [facility] 100 [place] [address] Physician lighting technician 12/01/23 documented as of this encounter
--- OUTSIDE RECORDS SUMMARY | 2025-02-01 13:00 | XMS_ITS | Encounter Summary ---
Author Organization [facility] Address [address] [place] [address] Care Team Providers Care Chief Of Pediatric Urology Name Role Phone Salina Doherty MD Unavailable [phone] Carrillo Ware APRN TECHNOLOGY SALES REPRESENTATIVE Unavailable Hillary Unger MD Primary Care P rovider [facility] NP Unavailable Nelson Arroyo PA-C Unavailable Hillary Unger MD Unavailable Hillary Unger MD Unavailable Hillary Unger MD Unavailable Nelson Arroyo PA-C Unavailable [phone] Nelson Arroyo PA-C Primary Care Provider Chinyere Barbour Unavailable Unavailable Nelson Arroyo PA-C Unavailable [phone] Pietro Wills MD Unavailable [phone] Tank Bucio MD Unavailable [phone] Encounter Details Date Type Department Care Team (Late st Contact Info) Description 04/15/2017 [facility] [address] [place] [address] Solitario Nagelica Gautam, RN CHILD [address] [place] [address] Social History Tobacco Use Types Packs/Day Years [...] PM CDT Legal Sex Female 3:44 AM DRIER AND GRINDER TENDER Gender Identity Female 10/03/2020 8:33 PM CDT Sexual Orientation Straight 07/01/2018 3: 40 PM DRIER AND GRINDER TENDER documented as of this encounter Plan of Treatment Not on file documented as of this encounter Visit Diagnoses Not on filedocumented in this encounter Additional Health Concerns Assessment Noted Time PHQ-9 Depression Total Score: 4 04/04/20 17 7:13 AM DRIER AND GRINDER TENDER documented as of this encounter Care Teams Chief Of Pediatric Urology Relationship Specialty Start Date End Date Hillary Unger MD [address] [place] [address] PCP - General Internal Medicine 08/21/15 08/05/18 Nelson Arroyo PA-C [address] [place] [address] PCP - Assigned PCP 04/12/18 05/02/18 Hillary Unger MD [address] [place] [address] PCP - Assigned PCP 02/01/18 04/11/18 Hillary Unger MD [address] [place] [address] PCP - Assigned PCP 05/03/18 07/07/18 Nelson Arroyo PA-C [address] [place] [address] PCP - General Physician Membership Director - Medical 08/06/18 Salina Doherty MD Internal Medicine 12/01/14 Carrillo Ware APRN TECHNOLOGY SALES REPRESENTATIVE [address] [place] [address] Nurse Practitioner Nurse Practitioner 12/16/14 Angelica Jerez RN CHILD [facility] [address] [place], [place] 265[address] Nurse Practitioner Nurse Practitioner - Family 07/12/16 Hillary Unger MD [address] [place] [address] Assigned PCP 05/03/18 07/18/18 Nelson Arroyo PA-C [address] [place] [address] Assigned PCP 07/05/18 07/29/20 Chinyere Barbour Personal Advocate & Liaison (PAL) 01/31/20 04/26/20 Nelson Arroyo PA-C [address] [place] [address] Assigned PCP 07/30/20 Pietro Wills MD [address] [address] Assigned Heart and Vascular Provider 12/14/22 06/26/24 Tank Bucio MD [address], [facility] [address] [place] [address] Physician weigher operator 12/01/23 documented as of this encounter
--- OUTSIDE RECORDS SUMMARY | 2025-02-01 13:00 | XMS_ITS | Encounter Summary ---
Author Organization [facility] Address [address] [place] [address] Care Team Providers Care Buyer Planner Name Role Phone Salina Doherty MD Unavailable [phone] Carrillo Ware APRN MIXER MACHINE FEEDER Unavailable Hillary Unger MD Primary Care P rovider [facility] Unavailable [phone] Nelson Arroyo PA-C Unavailable [phone] Hillary Unger MD Unavailable Hillary Unger MD Unavailable Hillary Unger MD Unavailable Nelson Arroyo PA-C Unavailable [phone] Nelson Arroyo PA-C Primary Care Provider Chinyere Barbour Unavailable Unavailable Nelson Arroyo PA-C Unavailable [phone] Pietro Wills MD Unavailable [phone] Tank Bucio MD Unavailable Encounter Details Date Type Department Care Team (Late st Contact Info) Description 07/03/2017 [facility] [address] [place] [address] Cheyanne Garcia, YULI Social History Tobacco Use [...] PM CDT Legal Sex Female 3:44 AM ORTHODONTIST VICE PRESIDENT Gender Identity Female 10/03/2020 8:33 PM CDT Sexual Orientation Straight 07/01/2018 3: 40 PM ORTHODONTIST VICE PRESIDENT documented as of this encounter Plan of Treatment Not on file documented as of this encounter Visit Diagnoses Not on filedocumented in this encounter Additional Health Concerns Assessment Noted Time PHQ-9 Depression Total Score: 4 04/04/20 17 7:13 AM ORTHODONTIST VICE PRESIDENT documented as of this encounter Care Teams Buyer Planner Relationship Specialty Start Date End Date Hillary Unger MD [address] [place] [address] PCP - General Internal Medicine 08/21/15 08/05/18 Nelson Arroyo PA-C [address] [place] [address] PCP - Assigned PCP 04/12/18 05/02/18 Hillary Unger MD [address] [place] [address] PCP - Assigned PCP 02/01/18 04/11/18 Hillary Unger MD [address] [place] [address] PCP - Assigned PCP 05/03/18 07/07/18 Nelson Arroyo PA-C [address] [place] [address] PCP - General Physician Registered Nurse Fetal - Medical 08/06/18 Salina Doherty MD Internal Medicine 12/01/14 Carrillo Ware APRN MIXER MACHINE FEEDER [address] [place] [address] Nurse Practitioner Nurse Practitioner 12/16/14 Angelica Jerez NP [facility] [address] [place] [address] Nurse Practitioner Nurse Practitioner - Family 07/12/16 Hillary Unger MD [address] [place] [address] Assigned PCP 05/03/18 07/18/18 Nelson Arroyo PA-C [address] [place] [address] Assigned PCP 07/05/18 07/29/20 Chinyere Barbour Personal Advocate & Liaison (PAL) 01/31/20 04/26/20 Nelson Arroyo PA-C [address] [place] [address] Assigned PCP 07/30/20 Pietro Wills MD [address] [place] [address] Assigned Heart and Vascular Provider 12/14/22 06/26/24 Tank Bucio MD [address] [address] Physician engine house helper 12/01/23 documented as of this encounter
--- OUTSIDE RECORDS SUMMARY | 2025-02-01 13:00 | XMS_ITS | Encounter Summary ---
Author Organization [facility] Address [address] [place] [address]. [place] [address] Care Team Providers Care Gas Maker Name Role Phone Salina Doherty MD Unavailable Carrillo Ware APRN FUR OPERATOR Unavailable SolitarioAngelica golden NP Unavailable [phone] Nelson Arroyo PA-C Primary Care Provider Nelson Arroyo PA-C Unavailable Pietro Wills MD Unavailable [phone] Tank Bucio MD Unavailable [phone] Encounter Details Date Type Department Care Team (Late st Contact Info) Description 10/31/2021 MyC Medical Advice [facility] [address] [place] [address] Nelson Arroyo PA-C [address] [place] [address] Social History Tobacco Use Types [...] PM CDT Legal Sex Female 3:44 AM NEUROPSYCHOLOGY DIRECTOR Gender Identity Female 10/03/2020 8:33 PM CDT Sexual Orientation Straight 07/01/2018 3: 40 PM NEUROPSYCHOLOGY DIRECTOR documented as of this encounter Miscellaneous Notes * Telephone Encounter - Sanjana Bautista RN - 11/01/2021 1:46 PM CDT prazosin (MINIPRESS) 5 MG capsule 90 capsule 0 10/31/2021 No Sig - Route: TAKE 1 CAPSULE (5 MG) BY MOUTH AT BEDTIME - Oral Sent to pharmacy as: Prazosin HCl 5 MG Oral Capsule (MINIPRESS) Class: E-Prescribe Order: [id number] E-Prescribing Status: Receipt confirmed by pharmacy (10/31/2021 [...] documented as of this encounter Care Teams Gas Maker Relationship Specialty Start Date End Date Nelson Arroyo PA-C [address] [place] [address] PCP - General Physician Mule Developer - Medical 08/06/18 Salina Doherty MD Internal Medicine 12/01/14 Carrillo Ware APRN FUR OPERATOR [address] [place] [address] Nurse Practitioner Nurse Practitioner 12/16/14 Angelica Jerez NP [facility] [address] [place] [address] Nurse Practitioner Nurse Practitioner - Family 07/12/16 Nelson Arroyo PA-C [address] [place] [address] Assigned PCP 07/30/20 Pietro Wills MD [address] [place] [address] Assigned Heart and Vascular Provider 12/14/22 06/26/24 Tank Bucio MD [address], [facility] 100 [place] [address] Physician warehouse stocker 12/01/23 documented as of this encounter
--- OUTSIDE RECORDS SUMMARY | 2025-02-01 13:00 | XMS_ITS | Encounter Summary ---
Author Organization [facility] Address [address] [place] [address]. [place] [address] Care Team Providers Care Line Dancer Name Role Phone Salina Doherty MD Unavailable [phone] Carrillo Ware APRN FLOOR COVERING PRINTER ASSISTANT Unavailable SolitarioAngelica golden NP Unavailable [phone] Nelson Arroyo PA-C Unavailable Nelson Arroyo PA-C Primary Care Provider Chinyere Barbour Unavailable Unavailable Nelson Arroyo PA-C Unavailable Pietro Wills MD Unavailable Tank Bucio MD Unavailable [phone] Reason for Visit * Reason Onset Date Comments Refill Request 07/14/2019 Encounter Details Date Type Department Care Team (Late st Contact Info) Description 07/14/2019 MyC Refill [facility] [address] [facility], [address] [place] [address] Nelson Arroyo PA-C [address] [place] [address] Refill Request Social History Tobacco [...] PM CDT Legal Sex Female 3:44 AM MATTRESS RENOVATOR Gender Identity Female 10/03/2020 8:33 PM CDT Sexual Orientation Straight 07/01/2018 3: 40 PM MATTRESS RENOVATOR documented as of this encounter Miscellaneous Notes * Telephone Encounter - Blanca Baker - 07/15/2019 7:56 AM CDT Siemenst message sent Blanca Baker/ Probe Operator * Telephone Encounter - Nelson Arroyo PA-C [...] Depression Total Score: 10 020 3:04 PM MATTRESS RENOVATOR documented as of this encounter Care Teams Line Dancer Relationship Specialty Start Date End Date Nelson Arroyo PA-C [address] [place] [address] PCP - General Physician Division Director - Medical 08/06/18 Salina Doherty MD Internal Medicine 12/01/14 Carrillo Ware APRN FLOOR COVERING PRINTER ASSISTANT [address] [place] [address] Nurse Practitioner Nurse Practitioner 12/16/14 Angelica Jerez NP [facility] [address] [place] [address] Nurse Practitioner Nurse Practitioner - Family 07/12/16 Nelson Arroyo PA-C [address] [place] [address] Assigned PCP 07/05/18 07/29/20 Chinyere Barbour Personal Advocate & Liaison (PAL) 01/31/20 04/26/20 Nelson Arroyo PA-C [address] [place] [address] Assigned PCP 07/30/20 Pietro Wills MD [address] [place] [address] Assigned Heart and Vascular Provider 12/14/22 06/26/24 Tank Bucio MD [address] [facility], [address] [address] Physician fabrication inspector 12/01/23 documented as of this encounter
--- OUTSIDE RECORDS SUMMARY | 2025-02-01 13:00 | XMS_ITS | Encounter Summary ---
Author Organization [place] Address [address] [place] [address] Care Team Providers Care Marine Painter Name Role Phone Salina Doherty MD Unavailable [phone] Carrillo Ware APRN REALTY LOAN SPECIALIST Unavailable SolitarioAngelica golden NP Unavailable [phone] Nelson Arroyo PA-C Unavailable [phone] Nelson Arroyo PA-C Primary Care Provider [phone] Chinyere Barbour Unavailable Unavailable Nelson Arroyo PA-C Unavailable [phone] Pietro Wills MD Unavailable [phone] Tank Bucio MD Unavailable [phone] Encounter Details Date Type Department Care Team (Late st Contact Info) Description 12/15/2018 MyC Medical Advice [address], [address] [place] [address] Tomasa Ramirez MA Social History [...] CDT Legal Sex Female 3:44 AM HEAD LINEMAN Gender Identity Female 10/03/2020 8:33 PM CDT Sexual Orientation Straight 07/01/2018 3: 40 PM HEAD LINEMAN documented as of this encounter Plan of Treatment Not on file documented as of this encounter Visit Diagnoses Not on filedocumented in this encounter Additional Health Concerns Assessment Noted Time PHQ-9 Depression Total Score: 7 10/23/19 19 11:12 AM CDT documented as of this encounter Care Teams Marine Painter Relationship Specialty Start Date End Date Nelson Arroyo PA-C [address] [address] PCP - General Physician Storekeeper Helper - Medical 08/06/18 Salina Doherty MD Internal Medicine 12/01/14 Carrillo Ware APRN REALTY LOAN SPECIALIST [address] [place] [address] Nurse Practitioner Nurse Practitioner 12/16/14 Angelica Jerez NP [address] [address] Nurse Practitioner Nurse Practitioner - Family 07/12/16 Nelson Arroyo PA-C [address] [address] Assigned PCP 07/05/18 07/29/20 Chinyere Barbour Personal Advocate & Liaison (PAL) 01/31/20 04/26/20 Nelson Arroyo PA-C [address] [address] Assigned PCP 07/30/20 Pietro Wills MD [address] [place] [address] Assigned Heart and Vascular Provider 12/14/22 06/26/24 Tank Bucio MD [address] [facility] 100 [place] [address] Physician shoe patternmaker 12/01/23 documented as of this encounter
--- OUTSIDE RECORDS SUMMARY | 2025-02-01 13:00 | XMS_ITS | Encounter Summary ---
Author Organization [facility] Address [address] [place] [address]. [place] [address] Care Team Providers Care Security Patrol Officer Name Role Phone Salina Doherty MD Unavailable Carrillo Ware APRN ACCOUNT SERVICES ASSOCIATE Unavailable SolitarioAngelica golden NP Unavailable [phone] Nelson Arroyo PA-C Unavailable [phone] Nelson Arroyo PA-C Primary Care Provider [phone] Chinyere Barbour Unavailable Unavailable Nelson Arroyo PA-C Unavailable [phone] Pietro Wills MD Unavailable [phone] Tank Bucio MD Unavailable [phone] Encounter Details Date Type Department Care Team (Late st Contact Info) Description 12/27/2018 MyC Medical Advice [facility] [address] [place] [address], [address] [place] [address] Nelson Arroyo PA-C [address] [place] [address] Social History Tobacco Use Types [...] PM CDT Legal Sex Female 3:44 AM REPORT ANALYST Gender Identity Female 10/03/2020 8:33 PM CDT Sexual Orientation Straight 07/01/2018 3: 40 PM REPORT ANALYST documented as of this encounter Plan of Treatment Not on file documented as of this encounter Visit Diagnoses Not on filedocumented in this encounter Additional Health Concerns Assessment Noted Time PHQ-9 Depression Total Score: 7 10/23/19 19 11:12 AM CDT documented as of this encounter Care Teams Security Patrol Officer Relationship Specialty Start Date End Date Nelson Arroyo PA-C [address] [place] [address] PCP - General Physician Seed Production Field Supervisor - Medical 08/06/18 Salina Doherty MD Internal Medicine 12/01/14 Carrillo Ware APRN CNP [address] [place] [address] Nurse Practitioner Nurse Practitioner 12/16/14 Angelica Jerez NP [address] [address] Nurse Practitioner Nurse Practitioner - Family 07/12/16 Nelson Arroyo PA-C [address] [place] [address] Assigned PCP 07/05/18 07/29/20 Chinyere Barbour Personal Advocate & Liaison (PAL) 01/31/20 04/26/20 Nelson Arroyo PA-C [address] [place] [address] Assigned PCP 07/30/20 Pietro Wills MD [address] [place] [address] Assigned Heart and Vascular Provider 12/14/22 06/26/24 Tank Bucio MD [address], [facility] 100 [place] [address] Physician supervisor case loading 12/01/23 documented as of this encounter
--- OUTSIDE RECORDS SUMMARY | 2025-02-01 13:00 | XMS_ITS | Encounter Summary ---
Author Organization [facility] Address [address] [place] [address]. [place] [address] Care Team Providers Care Reclamation Supervisor Name Role Phone Salina Doherty MD Unavailable [phone] Carrillo Ware APRN JOURNEYMAN TOOL AND DIE MAKER Unavailable SolitarioAngelica golden NP Unavailable [phone] Nelson Arroyo PA-C Unavailable [phone] Nelson Arroyo PA-C Primary Care Provider Chinyere Barbour Unavailable Unavailable Nelson Arroyo PA-C Unavailable Pietro Wills MD Unavailable Tank Bucio MD Unavailable Encounter Details Date Type Department Care Team (Late st Contact Info) Description 01/12/2019 MyC Medical Advice [address], [address] [place] [address] Nelson Arroyo PA-C [address] [place] [address] Social History Tobacco Use Types [...] PM CDT Legal Sex Female 3:44 AM CODING CONSULTANT Gender Identity Female 10/03/2020 8:33 PM CDT Sexual Orientation Straight 07/01/2018 3: 40 PM CODING CONSULTANT documented as of this encounter Plan of Treatment Not on file documented as of this encounter Visit Diagnoses Not on filedocumented in this encounter Additional Health Concerns Assessment Noted Time PHQ-9 Depression Total Score: 7 10/23/19 19 11:12 AM CDT documented as of this encounter Care Teams Reclamation Supervisor Relationship Specialty Start Date End Date Nelson Arroyo PA-C [address] [place] [address] PCP - General Physician Lead Caregiver - Medical 08/06/18 Salina Doherty MD Internal Medicine 12/01/14 Carrillo Ware APRN CNP [address] [place] [address] Nurse Practitioner Nurse Practitioner 12/16/14 Angelica Jerez NP [address] [address] Nurse Practitioner Nurse Practitioner - Family 07/12/16 Nelson Arroyo PA-C [address] [place] [address] Assigned PCP 07/05/18 07/29/20 Chinyere Barbour Personal Advocate & Liaison (PAL) 01/31/20 04/26/20 Nelson Arroyo PA-C [address] [place] [address] Assigned PCP 07/30/20 Pietro Wills MD [address] [place] [address] Assigned Heart and Vascular Provider 12/14/22 06/26/24 Tank Bucio MD [address], [facility] [address] [place] [address] Physician senior sales assistant 12/01/23 documented as of this encounter
--- OUTSIDE RECORDS SUMMARY | 2025-02-01 13:00 | XMS_ITS | Encounter Summary ---
Author Organization [facility] Address [address] [place] [address]. [place] [address] Care Team Providers Care Hot Mill Roller Name Role Phone Salina Doherty MD Unavailable [phone] Carrillo Ware APRN CIVIL ENGINEERING DRAFTSPERSON Unavailable SolitarioAngelica golden NP Unavailable [phone] Nelson Arroyo PA-C Unavailable Nelosn Arroyo PA-C Primary Care Provider Chinyere Barbour Unavailable Unavailable Nelson Arroyo PA-C Unavailable [phone] Pietro Wills MD Unavailable [phone] Tank Bucio MD Unavailable Reason for Visit * Reason Onset Date Comments Refill Request 08/30/2019 Encounter Details Date Type Department Care Team (Late st Contact Info) Description 08/30/2019 MyC Refill [facility] [address] [facility], [address] [place] [address] Nelson Arroyo PA-C [address] [place] [address] Refill Request Social History Tobacco [...] PM CDT Legal Sex Female 3:44 AM ADULT PAROLE OFFICER Gender Identity Female 10/03/2020 8:33 PM CDT Sexual Orientation Straight 07/01/2018 3: 40 PM ADULT PAROLE OFFICER documented as of this encounter Miscellaneous Notes [...] Depression Total Score: 10 020 3:04 PM ADULT PAROLE OFFICER documented as of this encounter Care Teams Hot Mill Roller Relationship Specialty Start Date End Date Nelson Arroyo PA-C [address] [address] PCP - General Physician Metal Engraver - Medical 08/06/18 Salina Doherty MD Internal Medicine 12/01/14 Carrillo Ware APRN CIVIL ENGINEERING DRAFTSPERSON [address] [place] [address] Nurse Practitioner Nurse Practitioner 12/16/14 Angelica Jerez NP [facility] [address] [place] [address] Nurse Practitioner Nurse Practitioner - Family 07/12/16 Nelson Arroyo PA-C [address] [place] [address] Assigned PCP 07/05/18 07/29/20 Chinyere Barbour Personal Advocate & Liaison (PAL) 01/31/20 04/26/20 Nelson Arroyo PA-C [address] [place] [address] Assigned PCP 07/30/20 Pietro Wills MD [address] [place] [address] Assigned Heart and Vascular Provider 12/14/22 06/26/24 Tank Bucio MD [address], [address] [address] Physician die inspector 12/01/23 documented as of this encounter
--- OUTSIDE RECORDS SUMMARY | 2025-02-01 13:00 | XMS_ITS | Encounter Summary ---
Author Organization [facility] Address [address] [place] [address] Care Team Providers Care Client Finance Analyst Name Role Phone Salina Doheryt MD Unavailable [phone] Carrillo Ware APRN CYLINDER VALVE REPAIRER Unavailable SolitarioAngelica golden NP Unavailable [phone] Nelson Arroyo PA-C Primary Care Provider Nelson Arroyo PA-C Unavailable [phone] Pietro Wills MD Unavailable Tank Bucio MD Unavailable [phone] Encounter Details Date Type Department Care Team (Late st Contact Info) Description 11/13/2021 [facility] [address] [place] [address] Margi Dumont Social History Tobacco Use Types [...] CDT Legal Sex Female 3:44 AM MEDICAL BILLING ASSISTANT Gender Identity Female 10/03/2020 8:33 PM CDT Sexual Orientation Straight 07/01/2018 3: 40 PM MEDICAL BILLING ASSISTANT documented as of this encounter Plan of Treatment Not on file documented as of this encounter Visit Diagnoses Not on filedocumented in this encounter Additional Health Concerns Assessment Noted Time PHQ-9 Depression Total Score: 7 10/23/19 22 11:44 AM CDT documented as of this encounter Care Teams Client Finance Analyst Relationship Specialty Start Date End Date Nelson Arroyo PA-C [address] [place] [address] PCP - General Physician Datacap Developer - Medical 08/06/18 Salina Doherty MD Internal Medicine 12/01/14 Carrillo Ware APRN CYLINDER VALVE REPAIRER [address] [place] [address] Nurse Practitioner Nurse Practitioner 12/16/14 Angelica Jerez NP [facility] [address] [place], [place] [id number] Nurse Practitioner Nurse Practitioner - Family 07/12/16 Nelson Arroyo PA-C [address] [place] [address] Assigned PCP 07/30/20 Pietro Wills MD [address] [address] Assigned Heart and Vascular Provider 12/14/22 06/26/24 Tank Bucio MD [address], [address] [address] Physician can filler 12/01/23 documented as of this encounter
--- OUTSIDE RECORDS SUMMARY | 2025-02-01 13:00 | XMS_ITS | Encounter Summary ---
Author Organization [place] Address Formerly [facility] [address] Care Team Providers Care Dairy Hand Name Role Phone Salina Doherty MD Unavailable [phone] Carrillo Ware APRN SENIOR FIELD ENGINEER Unavailable SolitarioAngelica golden NP Unavailable [phone] Nelson Arroyo PA-C Primary Care Provider [phone] Nelson Arroyo PA-C Unavailable [phone] Pietro Wills MD Unavailable Tank Bucio MD Unavailable [phone] Encounter Details Date Type Department Care Team (Late st Contact Info) Description 11/22/2021 [facility] Health & Addiction Services [address] [facility] [address] [place] [phone] Sharifa [place] Social History Tobacco Use Types [...] CDT Legal Sex Female 3:44 AM INDUSTRIAL GAS PRODUCTION OPERATOR Gender Identity Female 10/03/2020 8:33 PM CDT Sexual Orientation Straight 07/01/2018 3: 40 PM INDUSTRIAL GAS PRODUCTION OPERATOR documented as of this encounter Plan of Treatment Not on file documented as of this encounter Visit Diagnoses Not on filedocumented in this encounter Additional Health Concerns Assessment Noted Time PHQ-9 Depression Total Score: 7 10/23/19 22 11:44 AM CDT documented as of this encounter Care Teams Dairy Hand Relationship Specialty Start Date End Date Nelson Arroyo PA-C [address] [place] [address] PCP - General Physician Multimedia Producer - Medical 08/06/18 Salina Doherty MD Internal Medicine 12/01/14 Carrillo Ware APRN SENIOR FIELD ENGINEER [address] [place] [address] 884775 Nurse Practitioner Nurse Practitioner 12/16/14 Angelica Jerez NP [facility] [address] [place], [place] [address] Nurse Practitioner Nurse Practitioner - Family 07/12/16 Nelson Arroyo PA-C [address] [place] [address] Assigned PCP 07/30/20 Pietro Wills MD [address] [place] [address] Assigned Heart and Vascular Provider 12/14/22 06/26/24 Tank Bucio MD [address] [address]1207 Physician analytics architect 12/01/23 documented as of this encounter
--- OUTSIDE RECORDS SUMMARY | 2025-02-01 13:00 | XMS_ITS | Encounter Summary ---
Author Organization [place] Address [address] [place] [address]. [place] [address] Care Team Providers Care Dialysis Rn Name Role Phone Salina Doherty MD Unavailable [phone] Carrillo Ware APRN REVIEW SPECIALIST Unavailable SolitarioAngelica golden NP Unavailable [phone] Nelson Arroyo PA-C Unavailable Nelson Arroyo PA-C Primary Care Provider [phone] Chinyere Barbour Unavailable Unavailable Nelson Arroyo PA-C Unavailable [phone] Pietro Wills MD Unavailable Tank Bucio MD Unavailable Reason for Visit * Reason Onset Date Comments MyChart Communication 12/16/2018 Encounter Details Date Type Department Care Team (Late st Contact Info) Description 12/16/2018 MyC Medical Advice [facility] [address] [facility], [address] [place] [address] Nelson Arroyo PA-C [address] [place] [address] MyChart Communication Social History Tobacco [...] PM CDT Legal Sex Female 3:44 AM RECYCLING TECHNICIAN Gender Identity Female 10/03/2020 8:33 PM CDT Sexual Orientation Straight 07/01/2018 3: 40 PM RECYCLING TECHNICIAN documented as of this encounter Miscellaneous Notes * Telephone Encounter - Susanne Zacarias RN - 12/16/2018 4:[address] [facility]. They did receive the prescriptions, however there is an issue with insurance covering them. The Pt may have to pay for them out of pocket. Pharmacy will call insurance company and call the Pt back directly. I informed the Pt of this via message below. Susanne Zacarias RN -- [facility] Work[facility] documented in this encounter Plan of Treatment Not on file documented as of this encounter Visit Diagnoses Not on filedocumented in this encounter Additional Health Concerns Assessment Noted Time PHQ-9 Depression Total Score: 7 10/23/19 19 11:12 AM CDT documented as of this encounter Care Teams Dialysis Rn Relationship Specialty Start Date End Date Nelson Arroyo PA-C [address] [place] [address] PCP - General Physician Button Clamper - Medical 08/06/18 Salina Doherty MD Internal Medicine 12/01/14 Carrillo Ware APRN CNP [address] [place] [address] Nurse Practitioner Nurse Practitioner 12/16/14 Angelica Jerez NP [facility] [address] [place] [address] Nurse Practitioner Nurse Practitioner - Family 07/12/16 Nelson Arroyo PA-C [address] [place] [address] Assigned PCP 07/05/18 07/29/20 Chinyere Barbour Personal Advocate & Liaison (PAL) 01/31/20 04/26/20 Nelson Arroyo PA-C [address] [address] Assigned PCP 07/30/20 Pietro Wills MD [address] [place] [address] Assigned Heart and Vascular Provider 12/14/22 06/26/24 Tank Bucio MD [address], [address] [address] Physician metal sander and finisher 12/01/23 documented as of this encounter
--- OUTSIDE RECORDS SUMMARY | 2025-02-01 13:00 | XMS_ITS | Encounter Summary ---
Author Organization [place] Address [address] [place] [address] Care Team Providers Care Mint Wafer Depositor Name Role Phone Salina Doherty MD Unavailable [phone] Carrillo Ware APRN EFFICIENCY ENGINEER Unavailable SolitarioAngelica golden NP Unavailable [phone] Nelson Arroyo PA-C Primary Care Provider Nelson Arroyo PA-C Unavailable [phone] Pietro Wills MD Unavailable Tank Bucio MD Unavailable Encounter Details Date Type Department Care Team (Late st Contact Info) Description 02/13/2022 [facility] Adv[facility] Mental Health & Addiction Services [address] [facility] [address] [place] [address] Yodit Alexis, [facility] [address] [place] [address] Social History Tobacco Use Types [...] PM CDT Legal Sex Female 3:44 AM SLD EDUCATIONAL AIDE Gender Identity Female 10/03/2020 8:33 PM CDT Sexual Orientation Straight 07/01/2018 3: 40 PM SLD EDUCATIONAL AIDE documented as of this encounter Plan of Treatment Not on file documented as of this encounter Visit Diagnoses Not on filedocumented in this encounter Additional Health Concerns Assessment Noted Time PHQ-9 Depression Total Score: 7 10/23/19 22 11:44 AM CDT documented as of this encounter Care Teams Mint Wafer Depositor Relationship Specialty Start Date End Date Nelson Arroyo PA-C [address] [address] PCP - General Physician Benzene Still Utility Operator - Medical 08/06/18 Salina Doherty MD Internal Medicine 12/01/14 Carrillo Ware APRN EFFICIENCY ENGINEER [address] [place] [address] Nurse Practitioner Nurse Practitioner 12/16/14 Angelica Jerez NP [address] 363977 Nurse Practitioner Nurse Practitioner - Family 07/12/16 Nelson Arroyo PA-C [address] [address] Assigned PCP 07/30/20 Pietro Wills MD [address] [address] Assigned Heart and Vascular Provider 12/14/22 06/26/24 Tank Bucio MD [address] [facility], [facility] [address] [place] [address] Physician caramel cutter helper 12/01/23 documented as of this encounter
--- OUTSIDE RECORDS SUMMARY | 2025-02-01 13:00 | XMS_ITS | Encounter Summary ---
Author Organization [place] Address [address] [place] [address]. [place] [address] Care Team Providers Care Grey Goods Examiner Name Role Phone Salina Doherty MD Unavailable Carrillo Ware APRN VIDEO GAME DEVELOPER Unavailable SolitarioAngelica golden NP Unavailable [phone] Nelson Arroyo PA-C Unavailable Nelson Arroyo PA-C Primary Care Provider Chinyere Barbour Unavailable Unavailable Nelson Arroyo PA-C Unavailable Pietro Wills MD Unavailable Tank Bucio MD Unavailable Reason for Visit * Reason Onset Date Comments Refill Request 12/18/2018 Encounter Details Date Type Department Care Team (Late st Contact Info) Description 12/18/2018 MyC Pietro [facility] Mental Health & Addiction [address] [place] [address] Nelson Arroyo PA-C [address] [place] [address] Refill Request Social History Tobacco [...] PM CDT Legal Sex Female 3:44 AM AUDITING CONTROL CLERK Gender Identity Female 10/03/2020 8:33 PM CDT Sexual Orientation Straight 07/01/2018 3: 40 PM AUDITING CONTROL CLERK documented as of this encounter Plan of Treatment Not on file documented as of this encounter 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), predominantly inattentive type documented in this encounter Additional Health Concerns Assessment Noted Time PHQ-9 Depression Total Score: 7 10/23/19 19 11:12 AM CDT documented as of this encounter Care Teams Grey Goods Examiner Relationship Specialty Start Date End Date Nelson Arroyo PA-C [address] [place] [address] PCP - General Physician News Agent - Medical 08/06/18 Salina Doherty MD Internal Medicine 12/01/14 Carrillo Ware APRN VIDEO GAME DEVELOPER [address] [place] [address] [id number] Nurse Practitioner Nurse Practitioner 12/16/14 Angelica Jerez NP [place] [address] [address] [place], [place] 8960[address] Nurse Practitioner Nurse Practitioner - Family 07/12/16 Nelson Arroyo PA-C [address] [address] Assigned PCP 07/05/18 07/29/20 Chinyere Barbour Personal Advocate & Liaison (PAL) 01/31/20 04/26/20 Nelson Arroyo PA-C [address] [place] [address] Assigned PCP 07/30/20 Pietro Wills MD [address] [place] [address] Assigned Heart and Vascular Provider 12/14/22 06/26/24 Tank Bucio MD [address], [facility] [address] [place] [address] Physician electronic drafter 12/01/23 documented as of this encounter
--- OUTSIDE RECORDS SUMMARY | 2025-02-01 13:00 | XMS_ITS | Encounter Summary ---
Author Organization [place] Address [address] [place] [address] Care Team Providers Care Floor Layer Helper Name Role Phone Salina Doherty MD Unavailable [phone] Carrillo Ware APRN NURSERY HAND Unavailable SolitarioAngelica golden NP Unavailable [phone] Nelson Arroyo PA-C Unavailable [phone] Nelson Arroyo PA-C Primary Care Provider [phone] Chinyere Barbour Unavailable Unavailable Nelson Arroyo PA-C Unavailable [phone] Pietro Wills MD Unavailable [phone] Tank Bucio MD Unavailable [phone] Encounter Details Date Type Department Care Team (Late st Contact Info) Description 09/06/2019 MyC Medical Advice [address] [address] Blanca Baker Social History Tobacco [...] PM CDT Legal Sex Female 3:44 AM AS400 ADMINISTRATOR Gender Identity Female 10/03/2020 8:33 PM CDT Sexual Orientation Straight 07/01/2018 3: 40 PM AS400 ADMINISTRATOR documented as of this encounter Plan of Treatment Not on file documented as of this encounter Visit Diagnoses Not on filedocumented in this encounter Additional Health Concerns Assessment Noted Time PHQ-9 Depression Total Score: 10 020 3:04 PM AS400 ADMINISTRATOR documented as of this encounter Care Teams Floor Layer Helper Relationship Specialty Start Date End Date Nelson Arroyo PA-C [address] [address] PCP - General Physician Teacher Asst - Medical 08/06/18 Salina Doherty MD Internal Medicine 12/01/14 Carrillo Ware APRN NURSERY HAND [address] [place] [address] Nurse Practitioner Nurse Practitioner 12/16/14 Angelica Jerez NP [address] [address] Nurse Practitioner Nurse Practitioner - Family 07/12/16 Nelson Arroyo PA-C [address] [address] Assigned PCP 07/05/18 07/29/20 Chinyere Barbour Personal Advocate & Liaison (PAL) 01/31/20 04/26/20 Nelson Arroyo PA-C [address] [address] Assigned PCP 07/30/20 Pietro Wills MD [address] [address] Assigned Heart and Vascular Provider 12/14/22 06/26/24 Tank Bucio MD [address] [facility] 100 [place] [address] Physician director of corporate communications 12/01/23 documented as of this encounter
--- OUTSIDE RECORDS SUMMARY | 2025-02-01 13:00 | XMS_ITS | Encounter Summary ---
Author Organization [place] Address [address] [place] [address]. [place] [address] Care Team Providers Care Insulation And Flooring Assembler Name Role Phone Salina Doherty MD Unavailable [phone] Carrillo Ware APRN REPAIR SUPERVISOR Unavailable SolitarioAngelica golden NP Unavailable [phone] Nelson Arroyo PA-C Unavailable Nelson Arroyo PA-C Primary Care Provider [phone] Chinyere Barbour Unavailable Unavailable Nelson Arroyo PA-C Unavailable [phone] Pietro Wills MD Unavailable Tank Bucio MD Unavailable Reason for Visit * Reason Onset Date Comments Medication Refill 12/03/2018 methocarbamol, clonazePAM, and traZODone Encounter Details Date Type Department Care Team (Late st Contact Info) Description 12/02/2018 Refill [place] [id number] [facility], [address] [place] [address] Nelson Arroyo PA-C [address] [place] [address] Medication Refill (methocarbamol, clonazePAM, and [...] CDT Legal Sex Female 3:44 AM LEAD MILITARY ANALYST Gender Identity Female 10/03/2020 8:33 PM CDT Sexual Orientation Straight 07/01/2018 3: 40 PM LEAD MILITARY ANALYST documented as of this encounter Miscellaneous [...] # refills: 0 Last Office Visit with [facility] or [facility] prescribing provider: 08/06/2018 Future Office Visit: There is no refill protocol information for this order clonazePAM (KLONOPIN) 0.5 MG tablet Sig - Route: Take 1 tablet (0.5 mg) by mouth daily as needed for anxiety - Oral Last Written Prescription Date: 10/28/18 Last Fill Quantity: 30, # refills: 0 Last Office Visit with [facility] or [facility] prescribing provider: 08/06/2018 Routing refill request to provider for review/approval because: Drug not on the [facility] or [facility] refill protocol or controlled substance ??? [...] documented as of this encounter Care Teams Insulation And Flooring Assembler Relationship Specialty Start Date End Date Nelson Arroyo PA-C [address] [address] PCP - General Physician Purchasing Engineer - Medical 08/06/18 Salina Doherty MD Internal Medicine 12/01/14 Carrillo Ware APRN REPAIR SUPERVISOR [address] [place] [address]3965 Nurse Practitioner Nurse Practitioner 12/16/14 Angelica Jerez NP [address] [address] Nurse Practitioner Nurse Practitioner - Family 07/12/16 Nelson Arroyo PA-C [address] [address] Assigned PCP 07/05/18 07/29/20 Chinyere Barbour Personal Advocate & Liaison (PAL) 01/31/20 04/26/20 Nelson Arroyo PA-C [address] [address] Assigned PCP 07/30/20 Pietro Wills MD [address] [place] [address] Assigned Heart and Vascular Provider 12/14/22 06/26/24 Tank Bucio MD [address] [facility] 100 [place] [address] Physician fisher scallop 12/01/23 documented as of this encounter
--- OUTSIDE RECORDS SUMMARY | 2025-02-01 13:01 | XMS_ITS | Encounter Summary ---
Author Organization [place] Address [address] [place] [address]. [place] [address] Care Team Providers Care Warp Hauler Name Role Phone Salina Doherty MD Unavailable Carrillo Ware APRN EXECUTIVE VICE PRESIDENT Unavailable [phone] SolitarioAngelica golden NP Unavailable [phone] Nelson Arroyo PA-C Primary Care Provider Nelson Arroyo PA-C Unavailable [phone] Pietro Wills MD Unavailable Tank Bucio MD Unavailable Reason for Visit * Reason Onset Date Comments Refill Request 12/12/2021 Encounter Details Date Type Department Care Team (Late st Contact Info) Description 12/12/2021 MyC Refill [facility] [address] [place] [address] Nelson Arroyo PA-C [address] [place] [address] Refill Request Social History Tobacco [...] CDT Legal Sex Female 3:44 AM CUSTOMER SERVICE ASSISTANT Gender Identity Female 10/03/2020 8:33 PM CDT Sexual Orientation Straight 07/01/2018 3: 40 PM CUSTOMER SERVICE ASSISTANT documented as of this encounter Miscellaneous Notes * Telephone Encounter - Kay Zambrano RN - 12/31/2021 10:14 AM CDT Sent [facility] to call us regarding her buspar. * Telephone Encounter - Rae Hernandez RN - 12/18/2021 8:38 AM CDT Had refill request for Buspar 10 mg once a day. Pt had 180 tabs ordered on 10/17/21. See also refill request from 12/10/21. Called [facility] pharmacy, to verify how many tabs dispensed from 10/17/21 refill. Spoke to Bayron Raman. States filled Buspar 10mg once daily on 10/25/21, dispensed 90 tabs. In addition, pharmacist states on 12/16/21 pt picked up Buspar 5 mg twice daily 14 tabs for 1 week. RN not able to find the Buspar 5 mg twice daily in our records. Called [facility] pharmacist back to find out who prescribed that prescription. Spoke w/ states Lamine Buspar 5 mg twice daily ordered by Dr Jefferson ([facility] [address]). Called pt to clarify if she has [...] documented as of this encounter Care Teams Warp Hauler Relationship Specialty Start Date End Date Nelson Arroyo PA-C [address] [place] [address] PCP - General Physician Steam Fitter Helper - Medical 08/06/18 Salina Doherty MD Internal Medicine 12/01/14 Carrillo Ware APRN EXECUTIVE VICE PRESIDENT [address] [place] [address] Nurse Practitioner Nurse Practitioner 12/16/14 Angelica Jerez NP [facility] [address] [place] [address] Nurse Practitioner Nurse Practitioner - Family 07/12/16 Nelson Arroyo PA-C [address] [place] [address] Assigned PCP 07/30/20 Pietro Wills MD [address] [place] [address] Assigned Heart and Vascular Provider 12/14/22 06/26/24 Tank Bucio MD [address], [facility] 100 [place] [address] Physician protein scientist 12/01/23 documented as of this encounter
--- OUTSIDE RECORDS SUMMARY | 2025-02-01 13:01 | XMS_ITS | Encounter Summary ---
Author Organization [place] Address [address] [place] [address] Care Team Providers Care Relief Pilot Name Role Phone Salina Doherty MD Unavailable [phone] Carrillo Ware APRN BRAND MARKETING MANAGER Unavailable Hillary Unger MD Primary Care P rovider [facility] Unavailable [phone] Nelson Arroyo PA-C Unavailable Hillary Unger MD Unavailable Hillary Unger MD Unavailable Hillary Unger MD Unavailable Nelson Arroyo PA-C Unavailable [phone] Nelson Arroyo PA-C Primary Care Provider [phone] Chinyere Barbour Unavailable Unavailable Nelson Arroyo PA-C Unavailable [phone] Pietro Wills MD Unavailable [phone] Tank Bucio MD Unavailable Encounter Details Date Type Department Care Team (Late st Contact Info) Description 02/06/2016 [facility] [address] [place] [address] Khadijah Rushing RN Social History Tobacco Use [...] PM CDT Legal Sex Female 3:44 AM WATER QUALITY ANALYST Gender Identity Female 10/03/2020 8:33 PM CDT Sexual Orientation Straight 07/01/2018 3: 40 PM WATER QUALITY ANALYST documented as of this encounter Plan of Treatment Not on file documented as of this encounter Visit Diagnoses Not on filedocumented in this encounter Additional Health Concerns Assessment Noted Time PHQ-9 Depression Total Score: 5 09/19/19 16 7:14 AM CDT documented as of this encounter Care Teams Relief Pilot Relationship Specialty Start Date End Date Hillary Unger MD [address] [place] [address] PCP - General Internal Medicine 08/21/15 08/05/18 Nelson Arroyo PA-C [address] [place] [address] PCP - Assigned PCP 04/12/18 05/02/18 Hillary Unger MD [address] [place] [address] PCP - Assigned PCP 02/01/18 04/11/18 Hillary Unger MD [address] [place] [address] PCP - Assigned PCP 05/03/18 07/07/18 Nelson Arroyo PA-C [address] [place] [address] PCP - General Physician Prepress Technician - Medical 08/06/18 Salina Doherty MD Internal Medicine 12/01/14 Carrillo Ware APRN BRAND MARKETING MANAGER [address] [place] [address] Nurse Practitioner Nurse Practitioner 12/16/14 Angelica Jerez NP [facility] [address] [place] [address] Nurse Practitioner Nurse Practitioner - Family 07/12/16 Hillary Unger MD [address] [place], [place] 296727 Assigned PCP 05/03/18 07/18/18 Nelson Arroyo PA-C [address] [place] [address] Assigned PCP 07/05/18 07/29/20 Chinyere Barbour Personal Advocate & Liaison (PAL) 01/31/20 04/26/20 Nelson Arroyo PA-C [address] [place] [address] Assigned PCP 07/30/20 Pietro Wills MD [address] [address]135 Assigned Heart and Vascular Provider 12/14/22 06/26/24 Tank Bucio MD [address], [address] [address] Physician operations program manager 12/01/23 documented as of this encounter
--- OUTSIDE RECORDS SUMMARY | 2025-02-01 13:01 | XMS_ITS | Encounter Summary ---
Author Organization [place] Address [address] [place] [address] Care Team Providers Care Software Team Leader Name Role Phone Salina Doherty MD Unavailable [phone] Carrillo Ware APRN MANAGER TRANSPORTATION PLANNING Unavailable SolitarioAngelica golden NP Unavailable [phone] Nelson Arroyo PA-C Unavailable [phone] Nelson Arroyo PA-C Primary Care Provider [phone] Chinyere Barbour Unavailable Unavailable Nelson Arroyo PA-C Unavailable [phone] Pietro Wills MD Unavailable [phone] Tank Bucio MD Unavailable [phone] Encounter Details Date Type Department Care Team (Late st Contact Info) Description 10/27/2018 MyC Medical Advice [address], [address] [place] [address] Lexi Reina, RN Social History [...] PM CDT Legal Sex Female 3:44 AM ENGINE LATHE SET UP OPERATOR Gender Identity Female 10/03/2020 8:33 PM CDT Sexual Orientation Straight 07/01/2018 3: 40 PM ENGINE LATHE SET UP OPERATOR documented as of this encounter Plan of Treatment Not on file documented as of this encounter Visit Diagnoses Not on filedocumented in this encounter Additional Health Concerns Assessment Noted Time PHQ-9 Depression Total Score: 7 10/23/19 19 11:12 AM CDT documented as of this encounter Care Teams Software Team Leader Relationship Specialty Start Date End Date Nelson Arroyo PA-C [address] [address] PCP - General Physician Orthopedic Physician Assistant - Medical 08/06/18 Salina Doherty MD Internal Medicine 12/01/14 Carrillo Ware APRN MANAGER TRANSPORTATION PLANNING [address] [place] [address] Nurse Practitioner Nurse Practitioner 12/16/14 Angelica Jerez NP [address] [address] Nurse Practitioner Nurse Practitioner - Family 07/12/16 Nelson Arroyo PA-C [address] [address] Assigned PCP 07/05/18 07/29/20 Chinyere Barbour Personal Advocate & Liaison (PAL) 01/31/20 04/26/20 Nelson Arroyo PA-C [address] [address] Assigned PCP 07/30/20 Pietro Wills MD [address] [place] [address] Assigned Heart and Vascular Provider 12/14/22 06/26/24 Tank Bucio MD [address] [facility] [address] [place] [address] Physician auto technician mechanic 12/01/23 documented as of this encounter
--- OUTSIDE RECORDS SUMMARY | 2025-02-01 13:01 | XMS_ITS | Encounter Summary ---
Author Organization [place] Address [address] [place] [address]. [place] [address] Care Team Providers Care Family Day Care Worker Name Role Phone Salina Doherty MD Unavailable [phone] Carrillo Ware APRN CLIENT SERVICES SPECIALIST Unavailable SolitarioAngelica golden NP Unavailable [phone] Nelson Arroyo PA-C Primary Care Provider [phone] Nelson Arroyo PA-C Unavailable Pietro Wills MD Unavailable Tank Bucio MD Unavailable [phone] Reason for Visit * Reason Onset Date Comments Refill Request 01/12/2021 (ADDERALL XR) 30 MG Encounter Details Date Type Department Care Team (Late st Contact Info) Description 01/12/2021 MyC Refill [facility] [address] [place] [address] Nelson Arroyo PA-C [address] [place] [address] Refill Request ((ADDERALL XR) 30 [...] PM CDT Legal Sex Female 3:44 AM CONSTRUCTION CONTRACTOR Gender Identity Female 10/03/2020 8:33 PM CDT Sexual Orientation Straight 07/01/2018 3: 40 PM CONSTRUCTION CONTRACTOR documented as of this encounter Plan of Treatment Not on file documented as of this encounter 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), predominantly inattentive type documented in this encounter Additional Health Concerns Assessment Noted Time PHQ-9 Depression Total Score: 4 10/19/19 21 5:12 PM CDT documented as of this encounter Care Teams Family Day Care Worker Relationship Specialty Start Date End Date Nelson Arroyo PA-C [address] [place] [address] PCP - General Physician Market Relationship Manager - Medical 08/06/18 Salina Doherty MD Internal Medicine 12/01/14 Carrillo Ware APRN CNP [address] [place] [address]135 Nurse Practitioner Nurse Practitioner 12/16/14 Angelica Jerez NP [place] [address] [address] [place], [place] 126[address] Nurse Practitioner Nurse Practitioner - Family 07/12/16 Nelson Arryoo PA-C [address] [place] [address] Assigned PCP 07/30/20 Pietro Wills MD [address] [address] Assigned Heart and Vascular Provider 12/14/22 06/26/24 Tank Bucio MD [address], [facility] 100 [place] [address] Physician oven baker 12/01/23 documented as of this encounter
--- OUTSIDE RECORDS SUMMARY | 2025-02-01 13:01 | XMS_ITS | Encounter Summary ---
Author Organization [place] Address [address] [place] [address] Care Team Providers Care Specimen Processor Name Role Phone Salina Doherty MD Unavailable [phone] Carrillo Ware APRN MANAGER PERFORMANCE IMPROVEMENT Unavailable Hillary Unger MD Primary Care P rovider [facility] NP Unavailable [phone] Nelson Arroyo PA-C Unavailable Hillary Unger MD Unavailable Hillary Unger MD Unavailable Hillary Unger MD Unavailable Nelson Arroyo PA-C Unavailable [phone] Nelson Arroyo PA-C Primary Care Provider [phone] Chinyere Barbour Unavailable Unavailable Nelson Arroyo PA-C Unavailable [phone] Pietro Wills MD Unavailable [phone] Tank Bucio MD Unavailable [phone] Encounter Details Date Type Department Care Team (Late st Contact Info) Description 11/13/2016 [facility] Mental Health & Addiction [address] [place] [address] Solitario Angelica Gautam, STAYING MACHINE OPERATOR [address] [place] [address] Social History Tobacco Use Types Packs/Day Years [...] CDT Legal Sex Female 3:44 AM MARKETING REPORTING ANALYST Gender Identity Female 10/03/2020 8:33 PM CDT Sexual Orientation Straight 07/01/2018 3: 40 PM MARKETING REPORTING ANALYST documented as of this encounter Plan of Treatment Not on file documented as of this encounter Visit Diagnoses Not on filedocumented in this encounter Additional Health Concerns Assessment Noted Time PHQ-9 Depression Total Score: 4 10/06/19 17 7:28 AM CDT documented as of this encounter Care Teams Specimen Processor Relationship Specialty Start Date End Date Hillary Unger MD [address] [place] [address] PCP - General Internal Medicine 08/21/15 08/05/18 Nelson Arroyo PA-C [address] [place] [address] PCP - Assigned PCP 04/12/18 05/02/18 Hillary Unger MD [address] [place] [address] PCP - Assigned PCP 02/01/18 04/11/18 Hillary Unger MD [address] [place] [address] PCP - Assigned PCP 05/03/18 07/07/18 Nelson Arroyo PA-C [address] [place] [address] PCP - General Physician Rn Residential - Medical 08/06/18 Salina Doherty MD Internal Medicine 12/01/14 Carrillo Ware APRN MANAGER PERFORMANCE IMPROVEMENT [address] [place] [address] Nurse Practitioner Nurse Practitioner 12/16/14 Angelica Jerez STAYING MACHINE OPERATOR [facility] [address] [place], [place] [address] Nurse Practitioner Nurse Practitioner - Family 07/12/16 Hillary Unger MD [address] [place] [address] Assigned PCP 05/03/18 07/18/18 Nelson Arroyo PA-C [address] [place] [address] Assigned PCP 07/05/18 07/29/20 Chinyere Barbour Personal Advocate & Liaison (PAL) 01/31/20 04/26/20 Nelson Arroyo PA-C [address] [place] [address] Assigned PCP 07/30/20 Pietro Wills MD [address] [place] [address] Assigned Heart and Vascular Provider 12/14/22 06/26/24 Tank Bucio MD [address], [facility] 100 [place] [address] Physician clinical research coordinator 12/01/23 documented as of this encounter
--- OUTSIDE RECORDS SUMMARY | 2025-02-01 13:01 | XMS_ITS | Encounter Summary ---
Author Organization [facility] Address [address] [place] [address]. [place] [address] Care Team Providers Care Alumina Refinery Operator Name Role Phone Salina Doherty MD Unavailable [phone] Carrillo Ware APRN ROLLER PRINT TENDER Unavailable Angelica Jerez NP Unavailable [phone] Nelson Arroyo PA-C Primary Care Provider Nelson Arroyo PA-C Unavailable Pietro Wills MD Unavailable Tank Bucio MD Unavailable Reason for Visit * Reason Comments Medication Refill Encounter Details Date Type Department Care Team (Late st Contact Info) Description 10/30/[address], [address] [place] [address] [place] [address] [place] [address] Medication Refill Social History Tobacco [...] PM CDT Legal Sex Female 3:44 AM EXPELLER WORKER Gender Identity Female 10/03/2020 8:33 PM CDT Sexual Orientation Straight 07/01/2018 3: 40 PM EXPELLER WORKER COVID-19 Exposure Response Date Recorded In [...] Mishel Walker MD, RI PROC RM 2 [facility] [address] [facility] [address] [facility] [phone] Routing refill request to provider for review/approval [...] documented as of this encounter Care Teams Alumina Refinery Operator Relationship Specialty Start Date End Date Nelson Arroyo PA-C [address] [address] PCP - General Physician Building Services Coordinator - Medical 08/06/18 Salina Doherty MD Internal Medicine 12/01/14 Carrillo Ware APRN ROLLER PRINT TENDER [address] [place] [address]13285 Nurse Practitioner Nurse Practitioner 12/16/14 Angelica Jerez NP [facility] [address] [place] [address] Nurse Practitioner Nurse Practitioner - Family 07/12/16 Nelson Arroyo PA-C [address] [address] Assigned PCP 07/30/20 Pietro Wills MD [address] [place] [address] Assigned Heart and Vascular Provider 12/14/22 06/26/24 Tank Bucio MD [address], [facility] 100 [place] [address] Physician seed sorter 12/01/23 documented as of this encounter
--- OUTSIDE RECORDS SUMMARY | 2025-02-01 13:01 | XMS_ITS | Encounter Summary ---
Author Organization [place] Address [address] [place] [address] Care Team Providers Care Enamel Burner Name Role Phone Salina Doherty MD Unavailable [phone] Carrillo Ware APRN AGRICULTURAL LENDER Unavailable [phone] Hillary Unger MD Primary Care P ro[facility]ider [facility] Unavailable [phone] Nelson Arroyo PA-C Unavailable Hillary Unger MD Unavailable Hillary Unger MD Unavailable Hillary Unger MD Unavailable Nelson Arroyo PA-C Unavailable [phone] Nelson Arroyo PA-C Primary Care Provider Chinyere Barbour Unavailable Unavailable Nelson Arroyo PA-C Unavailable [phone] Pietro Wills MD Unavailable [phone] Tank Bucio MD Unavailable [phone] Encounter Details Date Type Department Care Team (Late st Contact Info) Description 11/11/2016 [facility] Medical [facility] Mental Health & Addiction [address] [place] [phone] Solitario Angelica Gautam, FUEL CELL DESIGNER [address] [place], [place] [id number] Social History Tobacco Use Types Packs/Day Years [...] PM CDT Legal Sex Female 3:44 AM FACING CUTTING MACHINE OPERATOR Gender Identity Female 10/03/2020 8:33 PM CDT Sexual Orientation Straight 07/01/2018 3: 40 PM FACING CUTTING MACHINE OPERATOR documented as of this encounter [...] documented as of this encounter Care Teams Enamel Burner Relationship Specialty Start Date End Date Hillary Unger MD [facility] [place] [address] PCP - General Internal Medicine 08/21/15 08/05/18 Nelson Arroyo PA-C [address] [place] [address] PCP - Assigned PCP 04/12/18 05/02/18 Hillary Unger MD [address] [place] [address] PCP - Assigned PCP 02/01/18 04/11/18 Hillary Unger MD [address] [place] [address] PCP - Assigned PCP 05/03/18 07/07/18 Nelson Arroyo PA-C [address] [place], [place] 6[address]24[address] PCP - General Physician Seasonal Warehouse Associate - Medical 08/06/18 Salina Doherty MD Internal Medicine 12/01/14 Carrillo Ware APRN AGRICULTURAL LENDER [address] [place] [address] Nurse Practitioner Nurse Practitioner 12/16/14 Angelica Jerez NP [facility] [address] [place] [address] Nurse Practitioner Nurse Practitioner - Family 07/12/16 Hillary Unger MD [address] [place] [address] Assigned PCP 05/03/18 07/18/18 Nelson Arroyo PA-C [address] [address] Assigned PCP 07/05/18 07/29/20 Chinyere Barbour Personal Advocate & Liaison (PAL) 01/31/20 04/26/20 Nleson Arroyo PA-C [address] [place] [address] Assigned PCP 07/30/20 Pietro Wills MD [address] [place] [address] Assigned Heart and Vascular Provider 12/14/22 06/26/24 Tank Bucio MD [address], [facility] 100 [place] [address] Physician paste up artist apprentice 12/01/23 documented as of this encounter
--- OUTSIDE RECORDS SUMMARY | 2025-02-01 13:01 | XMS_ITS | Encounter Summary ---
Author Organization [place] Address [address] [place] [address]. [place] [address] Care Team Providers Care Oil Speculator Name Role Phone Salina Doherty MD Unavailable [phone] Carrillo Ware APRN HOSPICE ADMITTING CLERK Unavailable [phone] SolitarioAngelica golden NP Unavailable [phone] Nelson Arroyo PA-C Primary Care Provider Nelson Arroyo PA-C Unavailable Pietro Wills MD Unavailable Tank Bucio MD Unavailable [phone] Encounter Details Date Type Department Care Team (Late st Contact Info) Description 02/09/2021 MyC Medical Advice [facility] [address] [place] [address] Nelson Arroyo PA-C [address] [place] [address] Social History Tobacco Use Types [...] CDT Legal Sex Female 3:44 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 Gender Identity Female 10/03/2020 8:33 PM CDT Sexual Orientation Straight 07/01/2018 3: 40 PM NEEDLE PUNCH MACHINE OPERATOR HELPER documented as of this encounter Plan of Treatment Not on file documented as of this encounter Visit Diagnoses Not on filedocumented in this encounter Additional Health Concerns Assessment Noted Time PHQ-9 Depression Total Score: 4 10/19/19 21 5:12 PM CDT documented as of this encounter Care Teams Oil Speculator Relationship Specialty Start Date End Date Nleson Arroyo PA-C [address] [address] PCP - General Physician Deputy Jailer - Medical 08/06/18 Salina Doherty MD Internal Medicine 12/01/14 Carrillo Ware APRN HOSPICE ADMITTING CLERK [address] [place] [address] 150105 Nurse Practitioner Nurse Practitioner 12/16/14 Angelica Jerez NP [place] [address] [place], [place] [address] Nurse Practitioner Nurse Practitioner - Family 07/12/16 Nelson Arroyo PA-C [address] [address] Assigned PCP 07/30/20 Pietro Wills MD [address] [address] Assigned Heart and Vascular Provider 12/14/22 06/26/24 Tank Bucio MD [address], [facility] 100 [place] [address] Physician energy administrator 12/01/23 documented as of this encounter
--- OUTSIDE RECORDS SUMMARY | 2025-02-01 13:01 | XMS_ITS | CCD ---
Author Name Interface, [id number] lity Address [facility] [address] [address] [facility] Address [address] [address] Reason for Visit Social History Date Name Value 01/01/2025 Sex Female
--- OUTSIDE RECORDS SUMMARY | 2025-02-01 13:01 | XMS_ITS | Encounter Summary ---
Author Organization [place] Address [address] [place] [address] Care Team Providers Care Business Systems Lead Name Role Phone Salina Doherty MD Unavailable Carrillo Ware APRN TOY DEPARTMENT MANAGER Unavailable SolitarioAngelica golden NP Unavailable [phone] Nelson Arroyo PA-C Primary Care Provider Nelson Arroyo PA-C Unavailable [phone] Pietro Wills MD Unavailable Tank Bucio MD Unavailable Reason for Visit * Reason Onset Date Comments MyChart Communication 02/22/2021 Encounter Details Date Type Department Care Team (Late st Contact Info) Description 02/22/2021 MyC Medical Advice [facility] [address] [place] [address] Hillary Unger MD [address] [place] [address] MyChart Communication Social History Tobacco [...] CDT Legal Sex Female 3:44 AM WIRE HANGER Gender Identity Female 10/03/2020 8:33 PM CDT Sexual Orientation Straight 07/01/2018 3: 40 PM WIRE HANGER documented as of this encounter Miscellaneous Notes [...] as of this encounter Care Teams Business Systems Lead Relationship Specialty Start Date End Date Nelson Arroyo PA-C [address] [place] [address] PCP - General Physician Gummed Tape Press Operator - Medical 08/06/18 Salina Doherty MD Internal Medicine 12/01/14 Carrillo Ware APRN TOY DEPARTMENT MANAGER [address] [place] [address] 142885 Nurse Practitioner Nurse Practitioner 12/16/14 Angelica Jerez NP [facility] [address] [place], [place] [address] Nurse Practitioner Nurse Practitioner - Family 07/12/16 Nelson Arroyo PA-C [address] [place] [address] Assigned PCP 07/30/20 Pietro Wills MD [address] [place] [address] Assigned Heart and Vascular Provider 12/14/22 06/26/24 Tank Bucio MD [address], [address] [address] Physician community mental health worker 12/01/23 documented as of this encounter
--- OUTSIDE RECORDS SUMMARY | 2025-02-01 13:01 | XMS_ITS | Encounter Summary ---
Author Organization [place] Address [address] [place] [address]. [place] [address] Care Team Providers Care Ripsawyer Name Role Phone Salina Doherty MD Unavailable Carrillo Ware APRN ELECTRONIC COURT RECORDER Unavailable SolitarioAngelica golden NP Unavailable [phone] Nelson Arroyo PA-C Primary Care Provider Nelson Arroyo PA-C Unavailable Pietro Wills MD Unavailable [phone] Tank Bucio MD Unavailable [phone] Encounter Details Date Type Department Care Team (Late st Contact Info) Description 01/17/2021 MyC Medical Advice [facility] [address] [place] [address] Nelson Arroyo PA-C [address] [place] [address] Social History Tobacco Use Types [...] CDT 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 We could maybe message her when it is done. Carmen Turcios RN documented in this encounter Plan of Treatment Not on file documented as of this encounter Visit Diagnoses Not on filedocumented in this encounter Additional Health Concerns Assessment Noted Time PHQ-9 Depression Total Score: 4 10/19/19 21 5:12 PM CDT documented as of this encounter Care Teams Ripsawyer Relationship Specialty Start Date End Date Nelson Arroyo PA-C [address] [facility] [place] [address] PCP - General Physician Service Observer - Medical 08/06/18 Salina Doherty MD Internal Medicine 12/01/14 Carrillo Ware APRN ELECTRONIC COURT RECORDER [address] [place] [address]85 Nurse Practitioner Nurse Practitioner 12/16/14 Angelica Jerez NP [address] [address] Nurse Practitioner Nurse Practitioner - Family 07/12/16 Nelson Arroyo PA-C [address] [place] [address] Assigned PCP 07/30/20 Pietro Wills MD [address] [place] [address] Assigned Heart and Vascular Provider 12/14/22 06/26/24 Tank Bucio MD [address] [facility], [facility] 100 [place] [address] Physician retail merchandising coordinator 12/01/23 documented as of this encounter
--- OUTSIDE RECORDS SUMMARY | 2025-02-01 13:01 | XMS_ITS | Encounter Summary ---
Author Organization [place] Address [address] [place] [address]. [place] [address] Care Team Providers Care Food Safety Technician Name Role Phone Salina Doherty MD Unavailable [phone] Carrillo Ware APRN AIRLINE MANAGERIAL SUPERVISOR Unavailable SolitarioAngelica golden NP Unavailable [phone] Nelson Arroyo PA-C Primary Care Provider Nelson Arroyo PA-C Unavailable [phone] Pietro Wills MD Unavailable Tank Bucio MD Unavailable Reason for Visit * Reason Comments Medication Refill Encounter Details Date Type Department Care Team (Late st Contact Info) Description 10/30/2020 Refill [facility] [address] [place] [address] Nelson Arroyo PA-C [address] [place] [address] Medication Refill Social History Tobacco [...] CDT 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 Gender Identity Female 10/03/2020 8:33 PM CDT Sexual Orientation Straight 07/01/2018 3: 40 PM SUPERVISOR SEWER SYSTEM COVID-19 Exposure Response Date Recorded In the [...] Mishel Walker MD, RI PROC RM 2 [facility] [address] [facility] [address] [facility] [address] Routing refill request to provider for review/approval because: Drug not on the [facility], [facility] or [facility] refill protocol or controlled substance Minda Vergara RN on 10/31/2020 at 4:03 PM documented in this encounter Plan of Treatment Not on file documented as of this encounter Visit Diagnoses Diagnosis Muscle spasm Spasm of muscle documented in this encounter Additional Health Concerns Assessment Noted Time PHQ-9 Depression Total Score: 4 10/19/19 21 5:12 PM CDT documented as of this encounter Care Teams Food Safety Technician Relationship Specialty Start Date End Date Nelson Arroyo PA-C [address] [place] [address] PCP - General Physician Certified Substance Abuse Counselor - Medical 08/06/18 Salina Doherty MD Internal Medicine 12/01/14 Carrillo Ware APRN AIRLINE MANAGERIAL SUPERVISOR [address] [place] [address] Nurse Practitioner Nurse Practitioner 12/16/14 Angelica Jerez SLAB INSTALLER [facility] [address] [place], [place] [address] Nurse Practitioner Nurse Practitioner - Family 07/12/16 Nelson Arroyo PA-C [address] [place] [address] Assigned PCP 07/30/20 Pietro Wills MD [address] [place] [address] Assigned Heart and Vascular Provider 12/14/22 06/26/24 Tank Bucio MD [address] [facility], [address] [address] Physician director of outside sales 12/01/23 documented as of this encounter
--- OUTSIDE RECORDS SUMMARY | 2025-02-01 13:01 | XMS_ITS | Encounter Summary ---
Author Organization [place] Address [address] [place] [address]. [place] [address] Care Team Providers Care Hydro Plant Site Manager Name Role Phone Salina Doherty MD Unavailable Carrillo Ware APRN AUTOMOBILE UPHOLSTERY TRIM INSTALLER Unavailable [phone] SolitarioAngelica golden NP Unavailable [phone] Nelson Arroyo PA-C Primary Care Provider Nelson Arroyo PA-C Unavailable [phone] Pietro Wills MD Unavailable Tank Bucio MD Unavailable [phone] Encounter Details Date Type Department Care Team (Late st Contact Info) Description 02/27/2021 [facility] Advice [facility] [address] [place] [address] Nelson Arroyo PA-C [address] [place] [address] Social History Tobacco Use Types [...] PM CDT 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 Sex Female 3:44 AM 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 PIPE 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 Gender Identity Female 10/03/2020 8:33 PM CDT Sexual Orientation Straight 07/01/2018 3: 40 PM SMOKING PIPE REPAIRER COVID-19 Exposure Response Date Recorded In the [...] documented as of this encounter Care Teams Hydro Plant Site Manager Relationship Specialty Start Date End Date Nelson Arroyo PA-C [address] [place] [address] PCP - General Physician Master Certified Rv Technician - Medical 08/06/18 Salina Doherty MD Internal Medicine 12/01/14 Carrillo Ware APRN CNP [address] [place] [address] Nurse Practitioner Nurse Practitioner 12/16/14 Angelica Jerez NP [facility] [address] [place] [address] Nurse Practitioner Nurse Practitioner - Family 07/12/16 Nelson Arroyo PA-C [address] [address] Assigned PCP 07/30/20 Pietro Wills MD [address] [place] [address] Assigned Heart and Vascular Provider 12/14/22 06/26/24 Tank Bucio MD [address] [facility] [address] [place] [address] Physician senior administrator support 12/01/23 documented as of this encounter
--- OUTSIDE RECORDS SUMMARY | 2025-02-01 13:01 | XMS_ITS | Encounter Summary ---
Author Organization [facility] Address [address] [place] [address]. [place] [address] Care Team Providers Care General Passenger Agent Name Role Phone Salina Doherty MD Unavailable [phone] Carrillo Ware APRN SUPERVISOR PHOSPHORUS PROCESSING Unavailable SolitarioAngelica golden NP Unavailable [phone] Nelson Arroyo PA-C Unavailable Nelson Arroyo PA-C Primary Care Provider Chinyere Barbour Unavailable Unavailable Nelson Arroyo PA-C Unavailable [phone] Pietro Wills MD Unavailable Tank Bucio MD Unavailable Reason for Visit * Reason Onset Date Comments Medication Refill 10/19/2018 clonazePAM (KL ONOPIN) 0.5 MG tablet Encounter Details Date Type Department Care Team (Late st Contact Info) Description 10/18/[address], [address] [place] [address] Nelson Arroyo PA-C [address] [place] [address] Medication Refill (clonazePAM (KLONOPIN) 0.5 [...] PM CDT Legal Sex Female 3:44 AM SOFTWARE TOOLS ENGINEER Gender Identity Female 10/03/2020 8:33 PM CDT Sexual Orientation Straight 07/01/2018 3: 40 PM SOFTWARE TOOLS ENGINEER documented as of this encounter Miscellaneous Notes * Telephone Encounter - Lexi Reina RN - 10/20/2018 3:38 PM CDT Routing refill request to provider for review/approval because: Drug not on the [facility] refill protocol Last fill 5.2.19 FILTERING MACHINE TENDER: 6.18.19 Last filled 5.3.19, [facility] providers had filled prior to [...] SHOULD BE DELETED.) Last Office Visit with [facility] primary care provider: 08/06/2018 Future Office visit: [...] Processing: Fax Rx to [facility] [email or web address] FILTERING MACHINE TENDER checked in past 3 months? No, route to RN 05/13/18 documented in this encounter Plan of Treatment Not on file documented as of this encounter Visit Diagnoses Diagnosis Generalized anxiety disorder documented in this encounter Additional Health Concerns Assessment Noted Time PHQ-9 Depression Total Score: 13 019 7:04 AM CDT documented as of this encounter Care Teams General Passenger Agent Relationship Specialty Start Date End Date Nelson Arroyo PA-C [address] [place], [place] [id number] PCP - General Physician Aircraft Mechanic Armament - Medical 08/06/18 Salina Doherty MD Internal Medicine 12/01/14 Carrillo Ware APRN SUPERVISOR PHOSPHORUS PROCESSING [address] [place] [address] Nurse Practitioner Nurse Practitioner 12/16/14 Angelica Jerez NP [address] [id number] Nurse Practitioner Nurse Practitioner - Family 07/12/16 Nelson Arroyo PA-C [address] [place] [address] Assigned PCP 07/05/18 07/29/20 Chinyere Barbour Personal Advocate & Liaison (PAL) 01/31/20 04/26/20 Nelson Arroyo PA-C [address] [place] [address] Assigned PCP 07/30/20 Pietro Wills MD [address] [place] [address] Assigned Heart and Vascular Provider 12/14/22 06/26/24 Tank Bucio MD [address] [facility] [address] [place] [address] Physician substance addiction coordinator 12/01/23 documented as of this encounter
--- OUTSIDE RECORDS SUMMARY | 2025-02-01 13:01 | XMS_ITS | Encounter Summary ---
Author Organization [facility] Address [address] [place] [address] Care Team Providers Care Livestock Speculator Name Role Phone Salina Doherty MD Unavailable [phone] Carrillo Ware APRN ACCESS COORDINATOR Unavailable Hillary Unger MD Primary Care P rovider [facility] Hospital[facility] NP Unavailable [phone] Nelson Arroyo PA-C Unavailable [phone] Hillary Unger MD Unavailable Hillary Unger MD Unavailable Hillary Unger MD Unavailable Nelson Arroyo PA-C Unavailable [phone] Nelson Arroyo PA-C Primary Care Provider [phone] Chinyere Barbour Unavailable Unavailable Nelson Arroyo PA-C Unavailable [phone] Pietro Wills MD Unavailable [phone] Tank Bucio MD Unavailable [phone] Encounter Details Date Type Department Care Team (Late st Contact Info) Description 11/12/2016 [facility] Medical Advice [facility] [address] [place] [address] Solitario Angelica Gautam, DEPUTY EDITOR IN CHIEF [address] [place] [address] Social History Tobacco Use Types Packs/Day Years [...] PM CDT 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 Gender Identity Female 10/03/2020 8:33 PM CDT Sexual Orientation Straight 07/01/2018 3: 40 PM GRAIN TRIMMER documented as of this encounter Plan of Treatment Not on file documented as of this encounter Visit Diagnoses Not on filedocumented in this encounter Additional Health Concerns Assessment Noted Time PHQ-9 Depression Total Score: 4 10/06/19 17 7:28 AM CDT documented as of this encounter Care Teams Livestock Speculator Relationship Specialty Start Date End Date Hillary Unger MD [address] [place] [address] PCP - General Internal Medicine 08/21/15 08/05/18 Nelson Arroyo PA-C [address] [place] [address] PCP - Assigned PCP 04/12/18 05/02/18 Hillary Unger MD [address] [place] [address] PCP - Assigned PCP 02/01/18 04/11/18 Hillary Unger MD [address] [place] [address] PCP - Assigned PCP 05/03/18 07/07/18 Nelson Arroyo PA-C [address] [place] [address] PCP - General Physician Cattle Dehorner - Medical 08/06/18 Salina Doherty MD Internal Medicine 12/01/14 Carrillo Ware APRN ACCESS COORDINATOR [address] [place] [address] Nurse Practitioner Nurse Practitioner 12/16/14 Angelica Jerez DEPUTY EDITOR IN CHIEF [facility] [address] [place], [place] [address] Nurse Practitioner Nurse Practitioner - Family 07/12/16 Hillary Unger MD [address] [place] [address] Assigned PCP 05/03/18 07/18/18 Nelson Arroyo PA-C [address] [place] [address] Assigned PCP 07/05/18 07/29/20 Chinyere Barbour Personal Advocate & Liaison (PAL) 01/31/20 04/26/20 [place] [address] [place] [address] Assigned PCP 07/30/20 Pietro Wills MD [address] [place] [address] Assigned Heart and Vascular Provider 12/14/22 06/26/24 Tank Bucio MD [address] [facility] [address] [place] [address] Physician steam conditioner operator 12/01/23 documented as of this encounter
--- OUTSIDE RECORDS SUMMARY | 2025-02-01 13:01 | XMS_ITS | Encounter Summary ---
Author Organization [facility] Address [address] [place] [address] Care Team Providers Care Precision Farming Specialist Name Role Phone Salina Doherty MD Unavailable [phone] Carrillo Ware APRN DIESEL STATIONARY ENGINEER Unavailable Hillary Unger MD Primary Care P rovider [facility] NP Unavailable [phone] Nelson Arroyo PA-C Unavailable [phone] Hillary Unger MD Unavailable Hillary Unger MD Unavailable Hillary Unger MD Unavailable Nelson Arroyo PA-C Unavailable [phone] Nelson Arroyo PA-C Primary Care Provider [phone] Chinyere Barbour Unavailable Unavailable Nelson Arroyo PA-C Unavailable [phone] Pietro Wills MD Unavailable [phone] Tank Bucio MD Unavailable [phone] Reason for Visit * Reason Onset Date Comments Refill Request 12/31/2017 tizanidine Encounter Details Date Type Department Care Team (Late st Contact Info) Description 12/31/2017 [place] [address] [place] [address] Hillary Unger MD [address] [place] [address] Refill Request (tizanidine) Social History Tobacco Use [...] PM CDT Legal Sex Female 3:44 AM 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 Gender Identity Female 10/03/2020 8:33 PM CDT Sexual Orientation Straight 07/01/2018 3: 40 PM CUSHION STUFFER documented as of this encounter Plan of Treatment Not on file documented as of this encounter Visit Diagnoses Diagnosis Muscle spasm Spasm of muscle Cervicalgia documented in this encounter Additional Health Concerns Assessment Noted Time PHQ-9 Depression Total Score: 6 08/30/19 18 7:34 AM CDT documented as of this encounter Care Teams Precision Farming Specialist Relationship Specialty Start Date End Date Hillary Unger MD [address] [place] [address] PCP - General Internal Medicine 08/21/15 08/05/18 Nelson Arroyo PA-C [address] [place] [address] PCP - Assigned PCP 04/12/18 05/02/18 Hillary Unger MD [address] [place] [address] PCP - Assigned PCP 02/01/18 04/11/18 Hillary Unger MD [address] [place] [address] PCP - Assigned PCP 05/03/18 07/07/18 Nelson Arroyo PA-C [address] [address] PCP - General Physician Etl Database Developer - Medical 08/06/18 Salina Doherty MD Internal Medicine 12/01/14 Carrillo Ware APRN DIESEL STATIONARY ENGINEER [address] [place] [address]22845 Nurse Practitioner Nurse Practitioner 12/16/14 Angelica Jerez NP [facility] [address] [place] [address] Nurse Practitioner Nurse Practitioner - Family 07/12/16 Hillary Unger MD [address] [facility] [place] [place] [address] Assigned PCP 05/03/18 07/18/18 Nelosn Arroyo PA-C [address] [address] Assigned PCP 07/05/18 07/29/20 Chinyere Barbour Personal Advocate & Liaison (PAL) 01/31/20 04/26/20 Nelson Arroyo PA-C [address] [address] Assigned PCP 07/30/20 Pietro Wills MD [address] [place] [address] Assigned Heart and Vascular Provider 12/14/22 06/26/24 Tank Bucio MD [address] [facility] [address] [place] [address] Physician aircraft maintenance manager 12/01/23 documented as of this encounter
--- OUTSIDE RECORDS SUMMARY | 2025-02-01 13:01 | XMS_ITS | Encounter Summary ---
Author Organization [facility] Address [address] [place] [address] Care Team Providers Care Port Engineer Name Role Phone Salina Doherty MD Unavailable [phone] Carrillo Ware APRN RESORT KEEPER Unavailable Hillary Unger MD Primary Care P rovider [facility] NP Unavailable [phone] Nelson Arroyo PA-C Unavailable Hillary Unger MD Unavailable Hillary Unger MD Unavailable Hillary Unger MD Unavailable Nelson Arroyo PA-C Unavailable [phone] Nelson Arroyo PA-C Primary Care Provider Chinyere Barbour Unavailable Unavailable Nelson Arroyo PA-C Unavailable [phone] Pietro Wills MD Unavailable [phone] Tank Bucio MD Unavailable [phone] Reason for Visit * Reason Onset Date Comments MyChart Communication 08/26/2016 Encounter Details Date Type Department Care Team (Late st Contact Info) Description 08/26/[address] [place] [address] Hillary Unger MD [address] [place] [address] MyChart Communication Social History Tobacco Use Types [...] PM CDT 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 Gender Identity Female 10/03/2020 8:33 PM CDT Sexual Orientation Straight 07/01/2018 3: 40 PM DRYLAND FARMER documented as of this encounter Miscellaneous [...] Total Score: 7 07/14/19 17 7:14 AM DRYLAND FARMER documented as of this encounter Care Teams Port Engineer Relationship Specialty Start Date End Date Hillary Unger MD [address] [place] [address] PCP - General Internal Medicine 08/21/15 08/05/18 Nelson Arroyo [place] [address] [place] [address] PCP - Assigned PCP 04/12/18 05/02/18 Hillary Unger MD [address] [place] [address] PCP - Assigned PCP 02/01/18 04/11/18 Hillary Unger MD [address] [place] [address] PCP - Assigned PCP 05/03/18 07/07/18 Nelson Arroyo PA-C [address] [place] [address] PCP - General Physician Learning And Development Intern - Medical 08/06/18 Salina Doherty MD Internal Medicine 12/01/14 Carrillo Ware APRN RESORT KEEPER [address] [place] [address] Nurse Practitioner Nurse Practitioner 12/16/14 Angelica Jerez NP [facility] [address] [place] [address] Nurse Practitioner Nurse Practitioner - Family 07/12/16 Hillary Unger MD [address] [place] [address] Assigned PCP 05/03/18 07/18/18 Nelson Arroyo PA-C [address] [address] Assigned PCP 07/05/18 07/29/20 Chinyere Barbour Personal Advocate & Liaison (PAL) 01/31/20 04/26/20 Nelson Arroyo PA-C [address] [place] [id number] Assigned PCP 07/30/20 Pietro Wills MD [address] [place] [address] Assigned Heart and Vascular Provider 12/14/22 06/26/24 Tank Bucio MD [address] [facility], [address] [address] Physician cartridge loading operator 12/01/23 documented as of this encounter
--- OUTSIDE RECORDS SUMMARY | 2025-02-01 13:01 | XMS_ITS | Encounter Summary ---
Author Organization [facility] Address [address] [place] [address] Care Team Providers Care Annual Giving Officer Name Role Phone Salina Doherty MD Unavailable [phone] Carrillo Ware APRN SEMI AUTOMATIC SEWING MACHINE OPERATOR Unavailable Hillary Unger MD Primary Care P rovider [facility]organton[facility]ica NP Unavailable [phone] Nelson Arroyo PA-C Unavailable [phone] Hillary Unger MD Unavailable Hillary Unger MD Unavailable Hillary Unger MD Unavailable Nelson Arroyo PA-C Unavailable [phone] Nelson Arroyo PA-C Primary Care Provider Chinyere Barbour Unavailable Unavailable Nelson Arroyo PA-C Unavailable [phone] Pietro Wills MD Unavailable [phone] Tank Buico MD Unavailable [phone] Reason for Visit * Reason Onset Date Comments Refill Request 01/02/2018 Encounter Details Date Type Department Care Team (Late st Contact Info) Description 01/02/[address] [place] [address] Hillary Unger MD [address] [place], [place] [address] Refill Request Social History Tobacco Use Types [...] PM CDT Legal Sex Female 3:44 AM HANDBAG FRAMES INSPECTOR Gender Identity Female 10/03/2020 8:33 PM CDT Sexual Orientation Straight 07/01/2018 3: 40 PM HANDBAG FRAMES INSPECTOR documented as of this encounter Plan of Treatment Not on file documented as of this encounter 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), predominantly inattentive type documented in this encounter Additional Health Concerns Assessment Noted Time PHQ-9 Depression Total Score: 6 08/30/19 18 7:34 AM CDT documented as of this encounter Care Teams Annual Giving Officer Relationship Specialty Start Date End Date Hillary Unger MD [address] [place] [address] PCP - General Internal Medicine 08/21/15 08/05/18 Nelson Arroyo PA-C [address] [place] [address] PCP - Assigned PCP 04/12/18 05/02/18 Hillary Unger MD [address] [place] [address] PCP - Assigned PCP 02/01/18 04/11/18 Hillary Unger MD [address] [place] [address] PCP - Assigned PCP 05/03/18 07/07/18 Nelson Arroyo PA-C [address] [place] [address] PCP - General Physician Roller Leveler Operator - Medical 08/06/18 Salina Doherty MD Internal Medicine 12/01/14 Carrillo Ware APRN SEMI AUTOMATIC SEWING MACHINE OPERATOR [address] [place] [address] Nurse Practitioner Nurse Practitioner 12/16/14 Angelica Jerez NP [facility] [address] [place] [address] Nurse Practitioner Nurse Practitioner - Family 07/12/16 Hillary Unger MD [address] [place] [address] Assigned PCP 05/03/18 07/18/18 Nelson Arroyo PA-C [address] [place] [address] Assigned PCP 07/05/18 07/29/20 Chinyere Barbour Personal Advocate & Liaison (PAL) 01/31/20 04/26/20 Nelson Arroyo PA-C [address] [place] [address] Assigned PCP 07/30/20 Pietro Wills MD [address] [place] [address] Assigned Heart and Vascular Provider 12/14/22 06/26/24 Tank Bucio MD [address] [address] Physician pile fabric knitter 12/01/23 documented as of this encounter
--- OUTSIDE RECORDS SUMMARY | 2025-02-01 13:01 | XMS_ITS | Encounter Summary ---
Author Organization [facility] Address [address] [place] [address] Care Team Providers Care Machining Supervisor Name Role Phone Salina Doherty MD Unavailable [phone] Carrillo Ware APRN FOUNDRY EQUIPMENT MECHANIC Unavailable Hillary Unger MD Primary Care P rovider SolitarioAngelica golden NP Unavailable [phone] Nelson Arroyo PA-C Unavailable Hillary Unger MD Unavailable Hillary Unger MD Unavailable Hillary Unger MD Unavailable Nelson Arroyo PA-C Unavailable [phone] Nelson Arroyo PA-C Primary Care Provider Chinyere Barbour Unavailable Unavailable Nelson Arroyo PA-C Unavailable [phone] Pietro Wills MD Unavailable [phone] Tank Bucio MD Unavailable [phone] Encounter Details Date Type Department Care Team (Late st Contact Info) Description 02/06/2018 [facility] [address] [place] [address] Jacquelyn Guillen LPN Social History Tobacco Use [...] CDT Legal Sex Female 3:44 AM ASSEMBLER DC FIELD YOKE Gender Identity Female 10/03/2020 8:33 PM CDT Sexual Orientation Straight 07/01/2018 3: 40 PM ASSEMBLER DC FIELD YOKE documented as of this encounter Plan of Treatment Not on file documented as of this encounter Visit Diagnoses Not on filedocumented in this encounter Additional Health Concerns Assessment Noted Time PHQ-9 Depression Total Score: 6 08/30/19 18 7:34 AM CDT documented as of this encounter Care Teams Machining Supervisor Relationship Specialty Start Date End Date Hillary Unger MD [address] [place] [address] PCP - General Internal Medicine 08/21/15 08/05/18 Nelson Arroyo PA-C [address] [place] [address] PCP - Assigned PCP 04/12/18 05/02/18 Hillary Unger MD [address] [place] [address] PCP - Assigned PCP 02/01/18 04/11/18 Hillary Unger MD [address] [place] [address] PCP - Assigned PCP 05/03/18 07/07/18 Nelson Arroyo PA-C [address] [place] [address] PCP - General Physician Research Epidemiologist - Medical 08/06/18 Salina Doherty MD Internal Medicine 12/01/14 Carrillo Ware APRN FOUNDRY EQUIPMENT MECHANIC [address] [place] [address] Nurse Practitioner Nurse Practitioner 12/16/14 Angelica Jerez NP [facility] [address] [place] [address] Nurse Practitioner Nurse Practitioner - Family 07/12/16 Hillary Unger MD [address] [place], [place] [address] Assigned PCP 05/03/18 07/18/18 Nelson Arroyo PA-C [address] [place] [address] Assigned PCP 07/05/18 07/29/20 Chinyere Barbour Personal Advocate & Liaison (PAL) 01/31/20 04/26/20 Nelson Arroyo PA-C [address] [place] [address] Assigned PCP 07/30/20 Pietro Wills MD [address] [address]280[address] Assigned Heart and Vascular Provider 12/14/22 06/26/24 Tank Bucio MD [address] [place], [address] [address] Physician tribal delegate 12/01/23 documented as of this encounter
--- OUTSIDE RECORDS SUMMARY | 2025-02-01 13:01 | XMS_ITS | Encounter Summary ---
Author Organization [place] Address [address] [place] [address] Care Team Providers Care Animal Sticker Name Role Phone Salina Doherty MD Unavailable [phone] Carrillo Ware APRN BENCH LOOM WEAVER Unavailable Hillary Unger MD Primary Care P rovider [facility] NP Unavailable [phone] Nelson Arroyo PA-C Unavailable [phone] Hillary Unger MD Unavailable Hillary Unger MD Unavailable Hillary Unger MD Unavailable Nelson Arroyo PA-C Unavailable [phone] Nelson Arroyo PA-C Primary Care Provider Chinyere Barbour Unavailable Unavailable Nelson Arroyo PA-C Unavailable [phone] Pietro Wills MD Unavailable [phone] Tank Bucio MD Unavailable [phone] Reason for Visit * Reason Onset Date Comments Refill Request 01/07/2017 Encounter Details Date Type Department Care Team (Late st Contact Info) Description [facility]/07/2017 [facility] [address] [place] [phone] Angelica Jerez, PROFESSOR OF SPORT MANAGEMENT [address] [place] [address] Refill Request Social History Tobacco Use Types [...] PM CDT Legal Sex Female 3:44 AM ACLS NURSE Gender Identity Female 10/03/2020 8:33 PM CDT Sexual Orientation Straight 07/01/2018 3: 40 PM ACLS NURSE documented as of this encounter Miscellaneous Notes * Telephone Encounter - Mariella Patterson RN - 01/09/2017 11:30 AM CDT Klonopin (NOT ON RN PROTOCOL) and hydroxyzine. Last Written Prescription Date: 12/06/16 Last Fill Quantity: 30, # refills: 0 Last Office Visit with G, P or [facility] prescribing provider: 12/06/16 No appointment scheduled. From 12/06/16 OV with Angelica Jerez, PhD, HOME CARE GIVER, BENCH LOOM WEAVER Assessment: Nidia Crystal reports feeling stable on [...] or call after hours crisis line at [phone] or [phone]. ?? Continue individual/group therapy as planned. ?? Schedule an appointment with me in 6-8 weeks or sooner as needed. Call [facility] at [phone] to schedule. ?? Follow up with primary care provider as planned or for acute medical concerns. ?? Call the psychiatric nurse line with medication questions or concerns at [phone]. ?? My Practice Policy was reviewed and signed: YES ?? [email or web address] may be used to communicate with your [...] and stabilization. ?? Signed: Angelica Jerez, PhD, HOME CARE GIVER, BENCH LOOM WEAVER Psychiatry [facility] Date: 01/09/17 Query Report Page#: 1 [...] 12/23/2016 DEXTROAMP-AMPHETAMIN 10 MG TAB 60.00 30 [id number] 12/17/2016 [id number] N [id number] 00.0 12/06/2016 DEXTROAMP-AMPHET ER 30 MG CAP 31.00 31 [id number] 10/18/2016 [id number] N [id number] 12/06/2016 CLONAZEPAM 1 MG TABLET 30.00 30 [id number] 12/06/2016 [id number] N [id number] 00.0 12/06/2016 GABAPENTIN 300 MG CAPSULE 30.00 30 [id number] 12/06/2016 [id number] N [id number] 00.0 11/21/2016 DEXTROAMP-AMPHETAMIN 10 MG TAB 60.00 30 [id number] 11/21/2016 [id number] N [id number] 00.0 11/08/2016 GABAPENTIN 300 MG CAPSULE 30.00 30 [id number] 10/04/2016 [id number] R [id number] 00.0 10/22/2016 DEXTROAMP-AMPHETAMIN 10 MG TAB 60.00 30 [id number] 10/18/2016 [id number] N [id number] 00.0 10/15/2016 CLONAZEPAM 1 MG TABLET 30.00 30 [id number] 10/15/2016 [id number] N [id number] 00.0 10/04/2016 GABAPENTIN 300 MG CAPSULE 30.00 30 [id number] 10/04/2016 [id number] N [id number] 00.0 09/10/2016 CLONAZEPAM 1 MG TABLET 30.00 30 [id number] 09/09/2016 [id number] N [id number] 00.0 08/30/2016 DEXTROAMP-AMPHET ER 30 MG CAP 31.00 31 [id number] 08/23/2016 [id number] N [id number] 08/30/2016 DEXTROAMP-AMPHETAMIN 10 MG TAB 30.00 30 [id number] 08/19/2016 [id number] N [id number] 00.0 08/16/2016 OXYCODONE-ACETAMINOPHEN 5-325 10.00 2 [id number] 08/16/2016 [id number] N [id number] 37.5 08/09/2016 CLONAZEPAM 1 MG TABLET 30.00 30 [id number] 07/12/2016 [id number] R [id number] 00.0 08/08/2016 OXYCODONE-ACETAMINOPHEN 5-325 12.00 3 [id number] 08/08/2016 [id number] N [id number] 30.0 08/08/2016 GABAPENTIN 300 MG CAPSULE 30.00 30 [id number] 07/12/2016 [id number] R [id number] 00.0 07/18/2016 GABAPENTIN 100 MG CAPSULE 30.00 30 [id number] 07/18/2016 [id number] N [id number] 00.0 07/16/2016 DEXTROAMP-AMPHET ER 30 MG CAP 31.00 31 [id number] 07/11/2016 [id number] N [id number] 07/16/2016 DEXTROAMP-AMPHETAMIN 10 MG TAB 30.00 30 [id number] 07/11/2016 [id number] N [id number] 00.0 07/12/2016 GABAPENTIN 300 MG CAPSULE 30.00 30 [id number] 07/12/2016 [id number] N [id number] 00.0 07/12/2016 CLONAZEPAM 1 MG TABLET 30.00 30 [id number] 07/12/2016 [id number] N [id number] 00.0 06/17/2016 DEXTROAMP-AMPHETAMIN 10 MG TAB 30.00 30 [id number] 06/06/2016 [id number] N [id number] 00.0 06/17/2016 DEXTROAMP-AMPHET ER 30 MG CAP 31.00 31 [id number] 06/06/2016 [id number] N [id number] 05/03/2016 DEXTROAMP-AMPHET ER 30 MG CAP 31.00 31 [id number] 04/29/2016 [id number] N [id number] 05/03/2016 DEXTROAMP-AMPHETAMIN 10 MG TAB 30.00 30 [id number] 04/29/2016 [id number] N [id number] 00.0 04/03/2016 CLONAZEPAM 0.5 MG TABLET 90.00 30 [id number] 03/05/2016 [id number] R [id number] 00.0 03/25/2016 DEXTROAMP-AMPHET ER 30 MG CAP 31.00 31 [id number] 03/22/2016 [id number] N [id number] 03/25/2016 DEXTROAMP-AMPHETAMIN 10 MG TAB 30.00 30 [id number] 03/22/2016 [id number] N [id number] 00.0 03/05/2016 CLONAZEPAM 0.5 MG TABLET 90.00 30 [id number] 03/05/2016 [id number] N [id number] 00.0 02/20/2016 ALPRAZOLAM 0.25 MG TABLET 20.00 6 [id number] 02/20/2016 [id number] N [id number] 00.0 02/19/2016 DEXTROAMP-AMPHET ER 30 MG CAP 30.00 30 [id number] 12/20/2015 [id number] N [id number] 02/19/2016 DEXTROAMP-AMPHETAMIN 10 MG TAB 30.00 30 [id number] 12/20/2015 [id number] N [id number] 00.0 01/20/2016 DEXTROAMP-AMPHETAMIN 10 MG TAB 30.00 30 [id number] 12/20/2015 [id number] N [id number] 00.0 01/20/2016 DEXTROAMP-AMPHET ER 30 MG CAP 30.00 30 [id number] 12/20/2015 [id number] N [id number] 01/17/2016 ALPRAZOLAM 0.25 MG TABLET 20.00 6 [id number] 01/17/2016 [id number] N [id number] 00.0 *N/R N=New R=Refill +MED Daily Per CDC guidance, the conversion factors and associated daily morphine milligram equivalents for drugs prescribed as part of medication-assisted treatment for opioid use disorder should not be used to benchmark against dosage thresholds meant for opioids * Telephone Encounter - Marina Andrade RN - 01/08/2017 1:05 PM [facility] Original authorizing provider: JACQUE Novak would like a refill of the following medications: hydrOXYzine (ATARAX) 50 MG tablet [Angelica Jerez NP] clonazePAM (KLONOPIN) 1 MG tablet [Angelica Jerez NP] Preferred pharmacy: [address] Comment: documented in this encounter [...] as of this encounter Care Teams Animal Sticker Relationship Specialty Start Date End Date Hillary Unger MD [address] [place] [address] PCP - General Internal Medicine 08/21/15 08/05/18 Nelson Arroyo PA-C [address] [facility] [place] [address] PCP - Assigned PCP 04/12/18 05/02/18 Hillary Unger MD [address] [place] [address] PCP - Assigned PCP 02/01/18 04/11/18 Hillary Unger MD [address] [place] [address] PCP - Assigned PCP 05/03/18 07/07/18 Nelson Arroyo PA-C [address] [place], [place] [address] PCP - General Physician Quahogger - Medical 08/06/18 Salina Doherty MD Internal Medicine 12/01/14 Carrillo Ware APRN BENCH LOOM WEAVER [address] [place] [address] Nurse Practitioner Nurse Practitioner 12/16/14 Angelica Jerez NP [facility] [address] [place] [address] Nurse Practitioner Nurse Practitioner - Family 07/12/16 Hillary Unger MD [address] [place] [address] Assigned PCP 05/03/18 07/18/18 Nelson Arroyo PA-C [address] [address] Assigned PCP 07/05/18 07/29/20 Chinyere Barbour Personal Advocate & Liaison (PAL) 01/31/20 04/26/20 Nelson Arroyo PA-C [address] [place] [address] Assigned PCP 07/30/20 Pietro Wills MD [address] [place] [address] Assigned Heart and Vascular Provider 12/14/22 06/26/24 Tank Bucio MD [address], [facility] [address] [place] [address] Physician nurse administrator 12/01/23 documented as of this encounter
--- OUTSIDE RECORDS SUMMARY | 2025-02-01 13:01 | XMS_ITS | Encounter Summary ---
Author Organization [facility] Address [address] [place] [address]. [place] [address] Care Team Providers Care Calibration Engineer Name Role Phone Salina Doherty MD Unavailable [phone] Carrillo Ware APRN SETTLEMENT AGENT Unavailable SolitarioAngelica golden NP Unavailable [phone] Nelson Arroyo PA-C Primary Care Provider Nelson Arroyo PA-C Unavailable Pietro Wills MD Unavailable Tank Bucio MD Unavailable Reason for Visit * Reason Comments Medication Refill Encounter Details Date Type Department Care Team (Late st Contact Info) Description 04/02/2021 Refill [facility] [address] [place] [address] Nelson Arroyo PA-C [address] [place] [address] Medication Refill Social History Tobacco [...] PM CDT Legal Sex Female 3:44 AM PRODUCT SAFETY PROFESSIONAL Gender Identity Female 10/03/2020 8:33 PM CDT Sexual Orientation Straight 07/01/2018 3: 40 PM PRODUCT SAFETY PROFESSIONAL documented as of this encounter Miscellaneous [...] Encounters: 11/22/20 (!) 153/93 Manisha Connor RN UCT SAFETY PROFESSIONAL documented in this encounter Plan of Treatment Not on file documented as of this encounter Visit Diagnoses Diagnosis Major depressive disorder, recurrent episode, moderate (H) Major depressive disorder, recurrent episode, moderate Generalized anxiety disorder Palpitations documented in this encounter Additional Health Concerns Assessment Noted Time PHQ-9 Depression Total Score: 0 02/24/20 7:01 AM CDT documented as of this encounter Care Teams Calibration Engineer Relationship Specialty Start Date End Date Nelson Arroyo PA-C [address] [place] [address] PCP - General Physician Hardwood Floor Refinisher - Medical 08/06/18 Salina Doherty MD Internal Medicine 12/01/14 Carrillo Ware APRN SETTLEMENT AGENT [address] [place] [address] Nurse Practitioner Nurse Practitioner 12/16/14 Angelica Jerez NP [facility] [address] [place] [address] Nurse Practitioner Nurse Practitioner - Family 07/12/16 Nelson Arroyo PA-C [address] [place] [address] Assigned PCP 07/30/20 Pietro Wills MD [address] [place] [address] Assigned Heart and Vascular Provider 12/14/22 06/26/24 Tank Bucio MD [address], [facility] [address] [place] [address] Physician silk screener 12/01/23 documented as of this encounter
--- OUTSIDE RECORDS SUMMARY | 2025-02-01 13:01 | XMS_ITS | Encounter Summary ---
Author Organization [place] Address [address] [place] [address]. [place] [address] Care Team Providers Care Medical Lab Assistant Name Role Phone Salina Doherty MD Unavailable Carrillo Ware APRN TOW TRUCK DRIVER Unavailable SolitarioAngelica golden NP Unavailable [phone] Nelson Arroyo PA-C Primary Care Provider Nelson Arroyo PA-C Unavailable Pietro Wills MD Unavailable [phone] Tank Bucio MD Unavailable [phone] Encounter Details Date Type Department Care Team (Late st Contact Info) Description 11/21/2020 MyC Medical Advice [facility] [address] [place] [address] Nelson Arroyo PA-C [address] [place] [address] Social History Tobacco Use Types [...] PM CDT Legal Sex Female 3:44 AM HOUSEHOLD PERSONAL ASSISTANT Gender Identity Female 10/03/2020 8:33 PM CDT Sexual Orientation Straight 07/01/2018 3: 40 PM HOUSEHOLD PERSONAL ASSISTANT COVID-19 Exposure Response Date Recorded In the [...] as of this encounter Care Teams Medical Lab Assistant Relationship Specialty Start Date End Date Nelson Arroyo PA-C [address] [place] [address] PCP - General Physician Transit Coach Operator - Medical 08/06/18 Salina Doherty MD Internal Medicine 12/01/14 Carrillo Ware APRN TOW TRUCK DRIVER [address] [place] [address] Nurse Practitioner Nurse Practitioner 12/16/14 Angelica Jerez NP [facility] [address] [place] [address] Nurse Practitioner Nurse Practitioner - Family 07/12/16 Nelson Arroyo PA-C [address] [place] [address] Assigned PCP 07/30/20 Pietro Wills MD [address] [place] [address] Assigned Heart and Vascular Provider 12/14/22 06/26/24 Tank Bucio MD [address] [facility] [address] [place] [address] Physician shine worker 12/01/23 documented as of this encounter
--- OUTSIDE RECORDS SUMMARY | 2025-02-01 13:01 | XMS_ITS | Encounter Summary ---
Author Organization [place] Address [address] [place] [address]. [place] [address] Care Team Providers Care Health Physics Technician Name Role Phone Salina Doherty MD Unavailable [phone] Carrillo Ware APRN PIZZA HUT ASSISTANT Unavailable SolitarioAngelica golden NP Unavailable [phone] Nelson Arroyo PA-C Primary Care Provider [phone] Nelson Arroyo PA-C Unavailable Pietro Wills MD Unavailable [phone] Tank Bucio MD Unavailable Reason for Visit * Reason Onset Date Comments Medication Refill Refill Request 12/19/2020 Encounter Details Date Type Department Care Team (Late st Contact Info) Description 12/19/2020 Refill [facility] [address] [place] [address] Vidhi Coffman MD [address] [place] [address] Medication Refill; Refill Request Social History Tobacco [...] PM CDT Legal Sex Female 3:44 AM GLEASON OPERATOR Gender Identity Female 10/03/2020 8:33 PM CDT Sexual Orientation Straight 07/01/2018 3: 40 PM GLEASON OPERATOR COVID-19 Exposure Response Date Recorded In the [...] documented as of this encounter Care Teams Health Physics Technician Relationship Specialty Start Date End Date Nelson Arroyo PA-C [address] [place] [address] PCP - General Physician Nuclear Design Engineer - Medical 08/06/18 Salina Doherty MD Internal Medicine 12/01/14 Carrillo Ware APRN PIZZA HUT ASSISTANT [address] [place] [address] Nurse Practitioner Nurse Practitioner 12/16/14 Angelica Jerez NP [address] [place] [address] Nurse Practitioner Nurse Practitioner - Family 07/12/16 Nelson Arroyo PA-C [address] [place] [address] Assigned PCP 07/30/20 Pietro Wills MD [address] [place] [address] Assigned Heart and Vascular Provider 12/14/22 06/26/24 Tank Bucio MD [address], [facility] [address] [place] [address] Physician finisher machine 12/01/23 documented as of this encounter
--- OUTSIDE RECORDS SUMMARY | 2025-02-01 13:01 | XMS_ITS | Encounter Summary ---
Author Organization [place] Address [address] [place] [address]. [place] [address] Care Team Providers Care Medical Orderly Name Role Phone Salina Doherty MD Unavailable [phone] Carrillo Ware APRN WIRELINE FIELD OPERATOR Unavailable SolitarioAngelica golden NP Unavailable [phone] Nelson Arroyo PA-C Unavailable [phone] Nelson Arroyo PA-C Primary Care Provider [phone] Chinyere Barbour Unavailable Unavailable Nelson Arroyo PA-C Unavailable Pietro Wills MD Unavailable Tank Bucio MD Unavailable Reason for Visit * Reason Onset Date Comments Refill Request 10/18/2018 ADDERALL XR 30MG and ADDERALL 10MG Encounter Details Date Type Department Care Team (Late st Contact Info) Description 10/18/2018 MyC Refill [facility] Mental Health & Addiction [address] [place] [address] Nelson Arroyo PA-C [address] [place] [address] Refill Request (ADDERALL XR 30MG [...] CDT Legal Sex Female 3:44 AM CUTTER IN Gender Identity Female 10/03/2020 8:33 PM CDT Sexual Orientation Straight 07/01/2018 3: 40 PM CUTTER IN documented as of this encounter Miscellaneous Notes * Telephone Encounter - Lexi Reina RN - 10/21/2018 8:08 AM CDT Last Written Prescription Date: 09.07.18 Last Fill Quantity: 30, # refills: 0 Last office visit: 08/28/2017 with prescribing provider: Cruz Future Office Visit: Plan RTC 11.05.18 Routing refill request to provider for review/approval because: Drug not on the [facility] refill protocol Lexi Reina RN, BS Clinical [...] SHOULD BE DELETED.) Last Office Visit with [facility] primary care provider: 08/28/2017 Future Office visit: [...] OXY13, PPX13, BUP13 Processing: Fax Rx to [facility] [email or web address] TRUCK DRIVER RUBBISH COLLECTOR checked in past 3 months? No, route to RN amphetamine-dextroamphetamine (ADDERALL) 10 MG tablet Last Written Prescription Date: 09/07/18 Last Fill Quantity: 30, # refills: 0 Last Office Visit with G, P or [facility] prescribing provider: 08/28/2017 documented in this encounter Plan of Treatment Not on file documented as of this encounter 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), predominantly inattentive type documented in this encounter Additional Health Concerns Assessment Noted Time PHQ-9 Depression Total Score: 13 019 7:04 AM CDT documented as of this encounter Care Teams Medical Orderly Relationship Specialty Start Date End Date Nelson Arroyo PA-C [address] [place] [address] PCP - General Physician Motor Block Mechanic - Medical 08/06/18 Salina Doherty MD Internal Medicine 12/01/14 Carrillo Ware APRN WIRELINE FIELD OPERATOR [address] [place] [address] Nurse Practitioner Nurse Practitioner 12/16/14 Angelica Jerez NP [facility] [address] [place] [address] Nurse Practitioner Nurse Practitioner - Family 07/12/16 Nelson Arroyo PA-C [address] [place] [address] Assigned PCP 07/05/18 07/29/20 Chinyere Barbour Personal Advocate & Liaison (PAL) 01/31/20 04/26/20 Nelson Arroyo PA-C [address] [address] Assigned PCP 07/30/20 Pietro Wills MD [address] [place] [address] Assigned Heart and Vascular Provider 12/14/22 06/26/24 Tank Bucio MD [address], [address] [address] Physician gridcap machine operator 12/01/23 documented as of this encounter
--- OUTSIDE RECORDS SUMMARY | 2025-02-01 13:01 | XMS_ITS | Encounter Summary ---
Author Organization [facility] Address [address] [place] [address]. [place] [address] Care Team Providers Care Aircraft Maintenance Manager Name Role Phone Salina Doherty MD Unavailable Carrillo Ware APRN STAINLESS STEEL FINISHER Unavailable SolitarioAngelica golden NP Unavailable [phone] Nelson Arroyo PA-C Primary Care Provider Nelson Arroyo PA-C Unavailable [phone] Pietro Wills MD Unavailable [phone] Tank Bucio MD Unavailable [phone] Reason for Visit * Reason Onset Date Comments Refill Request 05/06/2021 Encounter Details Date Type Department Care Team (Late st Contact Info) Description 05/06/2021 MyC Refill [facility] [address] [place] [address] Nelson Arroyo PA-C [address] [place] [address] Refill Request Social History Tobacco [...] Legal Sex Female 3:44 AM DIRECTOR OF INTERCOLLEGIATE ATHLETICS Gender Identity Female 10/03/2020 8:33 PM CDT Sexual Orientation Straight 07/01/2018 3: 40 PM DIRECTOR OF INTERCOLLEGIATE ATHLETICS documented as of this encounter Miscellaneous Notes * Telephone Encounter - Natalie Arthur - 05/14/2021 1:46 PM CST PT had appt with PCP today. -Natalie Arthur End User Support Specialist CTOR OF INTERCOLLEGIATE ATHLETICS * Telephone Encounter - Carmen Lynn RN - 05/07/2021 11:05 AM DIRECTOR OF INTERCOLLEGIATE ATHLETICS Routing refill request to provider for review/approval because: Drug not on the [facility] refill protocol Routing to station to assist with scheduling. *RN did try calling to schedule- LMTCB. AND sent [facility] message. Return in about 6 months (around 04/19/2021) for depression/anxiety med check, ADHD med check. ?? Nelson Arroyo PA-C [facility] Carmen Turcios RN CTOR OF INTERCOLLEGIATE ATHLETICS documented in this encounter Plan of Treatment Not on file documented as of this encounter 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), predominantly inattentive type documented in this encounter Additional Health Concerns Assessment Noted Time PHQ-9 Depression Total Score: 0 02/24/20 21 7:01 AM CDT documented as of this encounter Care Teams Aircraft Maintenance Manager Relationship Specialty Start Date End Date Nleson Arroyo PA-C [address] [place] [address] PCP - General Physician Supervisor Shearing - Medical 08/06/18 Salina Doherty MD Internal Medicine 12/01/14 Carrillo Ware APRN CNP [address] [place] [address] Nurse Practitioner Nurse Practitioner 12/16/14 Angelica Jerez NP [facility] [address] [place] [address] Nurse Practitioner Nurse Practitioner - Family 07/12/16 Nelson Arroyo PA-C [address] [place] [address] Assigned PCP 07/30/20 Pietro Wills MD [address] [place] [address] Assigned Heart and Vascular Provider 12/14/22 06/26/24 Tank Bucio MD [facility], [address] [address] Physician casting inspector 12/01/23 documented as of this encounter
--- OUTSIDE RECORDS SUMMARY | 2025-02-01 13:02 | XMS_ITS | Encounter Summary ---
Author Organization [facility] Address [address] [place] [address] Care Team Providers Care Coring Machine Operator Name Role Phone Salina Doherty MD Unavailable [phone] Carrillo Ware APRN PIECE GOODS CLERK Unavailable [phone] Hillary Unger MD Primary Care P rovider [facility] HealthAngelica NP Unavailable [phone] Hillary Unger MD Unavailable Hillary Unger MD Unavailable Nelson Arroyo PA-C Unavailable Nelson Arroyo PA-C Primary Care Provider [phone] Chinyere Barbour Unavailable Unavailable Nelson Arroyo PA-C Unavailable Pietro Wills MD Unavailable Tank Bucio MD Unavailable [phone] Encounter Details Date Type Department Care Team (Late st Contact Info) Description 06/30/2018 [facility] [address], [address] [place] [address] Nelson Arroyo PA-C [address] [place] [address] Social History Tobacco Use Types [...] PM CDT Legal Sex Female 3:44 AM STEM ROLLER OPERATOR Gender Identity Female 10/03/2020 8:33 PM CDT Sexual Orientation Straight 07/01/2018 3: 40 PM STEM ROLLER OPERATOR documented as of this encounter Plan of Treatment Not on file documented as of this encounter Visit Diagnoses Not on filedocumented in this encounter Additional Health Concerns Assessment Noted Time PHQ-9 Depression Total Score: 9 05/15/19 19 2:09 PM STEM ROLLER OPERATOR documented as of this encounter Care Teams Coring Machine Operator Relationship Specialty Start Date End Date Hillary Unger MD [address] [place] [address] PCP - General Internal Medicine 08/21/15 08/05/18 Hillary Unger MD [address] [place] [address] PCP - Assigned PCP 05/03/18 07/07/18 Nelson Arroyo PA-C [address] [place] [address] PCP - General Physician Metal Drilling Machine Operator - Medical 08/06/18 Salina Doherty MD Internal Medicine 12/01/14 Carrillo Ware APRN PIECE GOODS CLERK [address] [place] [address] Nurse Practitioner Nurse Practitioner 12/16/14 Angelica Jerez ASSOCIATE PROFESSOR OF LITERACY [facility] [address] [place] [address] Nurse Practitioner Nurse Practitioner - Family 07/12/16 Hillary Unger MD [address] [place] [address] Assigned PCP 05/03/18 07/18/18 Nelson Arroyo PA-C [address] [place] [address] Assigned PCP 07/05/18 07/29/20 Chinyere Barbour Personal Advocate & Liaison (PAL) 01/31/20 04/26/20 Nelson Arroyo PA-C [address] [place] [address] Assigned PCP 07/30/20 Pietro Wills MD [address] [place] [address] Assigned Heart and Vascular Provider 12/14/22 06/26/24 Tank Bucio MD [address], [address] [address] Physician feather separator 12/01/23 documented as of this encounter
--- OUTSIDE RECORDS SUMMARY | 2025-02-01 13:02 | XMS_ITS | Encounter Summary ---
Author Organization [place] Address [address] [place] [address]. [place] [address] Care Team Providers Care Farm Service Consultant Name Role Phone Salina Doherty MD Unavailable [phone] Carrillo Ware APRN DIE STAMPING PRESS OPERATOR Unavailable Hillary Unger MD Primary Care P rovider [facility] NP Unavailable [phone] Nelson Arroyo PA-C Unavailable Nelson Arroyo PA-C Primary Care Provider Chinyere Barbour Unavailable Unavailable Nelson Arroyo PA-C Unavailable Pietro Wills MD Unavailable [phone] Tank Bucio MD Unavailable Reason for Visit * Reason Onset Date Comments MyChart Communication 07/19/2018 Encounter Details Date Type Department Care Team (Late st Contact Info) Description 07/19/2018 MyC Medical Advice [address], [address] [place] [address] Nelson Arroyo PA-C [address] [place] [address] MyChart Communication Social History Tobacco [...] PM CDT Legal Sex Female 3:44 AM GLOST TILE SHADER Gender Identity Female 10/03/2020 8:33 PM CDT Sexual Orientation Straight 07/01/2018 3: 40 PM GLOST TILE SHADER documented as of this encounter Miscellaneous Notes * Telephone Encounter - Susanne Zacarias RN - 07/20/2018 1:48 PM CDT Responded to the Pt. Susanne Zacarias RN -- [employer] * Telephone Encounter - Nelson Arroyo [...] Wellbutrin going forward. Susanne Zacarias RN -- [employer] * Telephone Encounter - Susanne Zacarias RN - 07/20/2018 9:00 AM CDT Responded to the Pt. It looks like psych is managing her Wellbutrin. Advised OV for C-diff concerns. Susanne Zacarias, YULI -- [facility] documented in this encounter Plan of Treatment Not on file documented as of this encounter Visit Diagnoses Diagnosis Persistent insomnia Persistent disorder of initiating or maintaining sleep SHANTELL (generalized anxiety disorder) Generalized anxiety disorder documented in this encounter Additional Health Concerns Assessment Noted Time PHQ-9 Depression Total Score: 9 05/15/19 19 2:09 PM GLOST TILE SHADER documented as of this encounter Care Teams Farm Service Consultant Relationship Specialty Start Date End Date Hillary Unger MD [address] [place], [place] [id number] PCP - General Internal Medicine 08/21/15 08/05/18 Nelson Arroyo PA-C [address] [place] [address] PCP - General Physician Business Continuity Global Director - Medical 08/06/18 Salina Doherty MD Internal Medicine 12/01/14 Carrillo Ware APRN DIE STAMPING PRESS OPERATOR [address] [place] [address] [id number] Nurse Practitioner Nurse Practitioner 12/16/14 Angelica Jerez NP [facility] [address] [place], [place] 14[address] Nurse Practitioner Nurse Practitioner - Family 07/12/16 Nelson Arroyo PA-C [address] [place] [address] Assigned PCP 07/05/18 07/29/20 Chinyere Barbour Personal Advocate & Liaison (PAL) 01/31/20 04/26/20 Nelson Arroyo PA-C [address] [place] [address] Assigned PCP 07/30/20 Pietro Wills MD [address] [place] [address] Assigned Heart and Vascular Provider 12/14/22 06/26/24 Tank Bucio MD [address], [address] [address] Physician physical therapy attendant 12/01/23 documented as of this encounter
--- OUTSIDE RECORDS SUMMARY | 2025-02-01 13:02 | XMS_ITS | Encounter Summary ---
Author Organization [facility] Address [address] [place] [address]. [place] [address] Care Team Providers Care Buckram Sewer Name Role Phone Salina Doherty MD Unavailable Carrillo Ware APRN GOLD MARKER Unavailable SolitarioAngelica golden NP Unavailable [phone] Nelson Arroyo PA-C Primary Care Provider Nelson Arroyo PA-C Unavailable [phone] Pietro Wills MD Unavailable Tank Bucio MD Unavailable [phone] Encounter Details Date Type Department Care Team (Late st Contact Info) Description 07/10/2021 MyC Medical Advice [facility] [address] [place] [address] Nelson Arroyo PA-C [address] [place] [address] Social History Tobacco Use Types [...] PM CDT Legal Sex Female 3:44 AM BOX PRINTER Gender Identity Female 10/03/2020 8:33 PM CDT Sexual Orientation Straight 07/01/2018 3: 40 PM BOX PRINTER documented as of this encounter Plan of Treatment Not on file documented as of this encounter Visit Diagnoses Not on filedocumented in this encounter Additional Health Concerns Assessment Noted Time PHQ-9 Depression Total Score: 9 06/04/19 22 12:13 PM BOX PRINTER documented as of this encounter Care Teams Buckram Sewer Relationship Specialty Start Date End Date Nelson Arroyo PA-C [address] [place] [address] PCP - General Physician Mathematics Lecturer - Medical 08/06/18 Salina Doherty MD Internal Medicine 12/01/14 Carrillo Ware APRN GOLD MARKER [address] [place] [address] 774835 Nurse Practitioner Nurse Practitioner 12/16/14 Angelica Jerez NP [facility] [address] [place], [place] 8426[address] Nurse Practitioner Nurse Practitioner - Family 07/12/16 Nelson Arroyo PA-C [address] [address] Assigned PCP 07/30/20 Pietro Wills MD [address] [address] Assigned Heart and Vascular Provider 12/14/22 06/26/24 Tank Bucio MD [address], [facility] [address] [place] [address] Physician polymerization oven operator 12/01/23 documented as of this encounter
--- OUTSIDE RECORDS SUMMARY | 2025-02-01 13:02 | XMS_ITS | Encounter Summary ---
Author Organization [facility] Address [address] [place] [address] Care Team Providers Care Border Patrol Officer Name Role Phone Salina Doherty MD Unavailable [phone] Carrillo Ware APRN ASSOCIATE PROFESSOR OF ENGLISH Unavailable Angelica Jerez NP Unavailable [phone] Nelson Arroyo PA-C Primary Care Provider Nelosn Arroyo PA-C Unavailable [phone] Pietro Wills MD Unavailable [phone] Tank Bucio MD Unavailable [phone] Encounter Details Date Type Department Care Team [...] PM CDT Legal Sex Female 3:44 AM COPPER PLATE PRINTER Gender Identity Female 10/03/2020 8:33 PM CDT Sexual Orientation Straight 07/01/2018 3: 40 PM COPPER PLATE PRINTER documented as of this encounter Plan of Treatment Not on file documented as of this encounter Visit Diagnoses Not on filedocumented in this encounter Additional Health Concerns Assessment Noted Time PHQ-9 Depression Total Score: 9 06/04/19 22 12:13 PM COPPER PLATE PRINTER documented as of this encounter Care Teams Border Patrol Officer Relationship Specialty Start Date End Date Nelson Arroyo PA-C [address] [facility] [address] PCP - General Physician Unit Clerk - Medical 08/06/18 Salina Doherty MD Internal Medicine 12/01/14 Carrillo Ware APRN ASSOCIATE PROFESSOR OF ENGLISH [address] [place] [address] Nurse Practitioner Nurse Practitioner 12/16/14 Angelica Jerez NP [facility] [address] [place] [address] Nurse Practitioner Nurse Practitioner - Family 07/12/16 Nelson Arroyo PA-C [address] [place] [address] Assigned PCP 07/30/20 Pietro Wills MD [address] [place] [address] Assigned Heart and Vascular Provider 12/14/22 06/26/24 Tank Bucio MD [address] [facility] [address] [address] Physician tester operator helper 12/01/23 documented as of this encounter
--- OUTSIDE RECORDS SUMMARY | 2025-02-01 13:02 | XMS_ITS | Encounter Summary ---
Author Organization [place] Address [address] [place] [address] Care Team Providers Care Classroom Paraprofessional Name Role Phone Salina Doherty MD Unavailable [phone] Carrillo Ware APRN NURSE PRACTITIONER Unavailable [phone] Hillary Unger MD Primary Care P rovider [facility] NP Unavailable [phone] Nelson Arroyo PA-C Unavailable [phone] Hillary Unger MD Unavailable Hillary Unger MD Unavailable Hillary Unger MD Unavailable Nelson Arroyo PA-C Unavailable [phone] Nelson Arroyo PA-C Primary Care Provider Chinyere Barbour Unavailable Unavailable Nelson Arroyo PA-C Unavailable [phone] Pietro Wills MD Unavailable [phone] Tank Bucio MD Unavailable [phone] Reason for Visit * Reason Onset Date Comments Refill Request 02/24/2018 Encounter Details Date Type Department Care Team (Late st Contact Info) Description 02/24/2018 [facility] [address] [place] [address] Hillary Unger MD [address] [place] [address] Refill Request Social History Tobacco Use Types [...] PM CDT Legal Sex Female 3:44 AM RUG WEAVER Gender Identity Female 10/03/2020 8:33 PM CDT Sexual Orientation Straight 07/01/2018 3: 40 PM RUG WEAVER documented as of this encounter Miscellaneous Notes [...] get refills through her. Per pt's previous Smart Ecosystemst message, she has been having trouble with [...] documented as of this encounter Care Teams Classroom Paraprofessional Relationship Specialty Start Date End Date Hillary Unger MD [address] [place] [address] PCP - General Internal Medicine 08/21/15 08/05/18 Nelson Arroyo PA-C [address] [place] [address] PCP - Assigned PCP 04/12/18 05/02/18 Hillary Unger MD [address] [place] [address] PCP - Assigned PCP 02/01/18 04/11/18 Hillary Unger MD [address] [place] [address] PCP - Assigned PCP 05/03/18 07/07/18 Nelson Arroyo PA-C [address] [place] [address] PCP - General Physician Twister Operator - Medical 08/06/18 Salina Doherty MD Internal Medicine 12/01/14 Carrillo Ware APRN NURSE PRACTITIONER [address] [place] [address] 005325 Nurse Practitioner Nurse Practitioner 12/16/14 Angelica Jerez NP [facility] [address] [place] [address] Nurse Practitioner Nurse Practitioner - Family 07/12/16 Hillary Unger, MD [address] [place] [address] Assigned PCP 05/03/18 07/18/18 Nelson Arroyo PA-C [address] [place] [address] Assigned PCP 07/05/18 07/29/20 Chinyere Barbour Personal Advocate & Liaison (PAL) 01/31/20 04/26/20 Nelson Arroyo PA-C [address] [place] [address] Assigned PCP 07/30/20 Pietro Wills MD [address] [place] [address] Assigned Heart and Vascular Provider 12/14/22 06/26/24 Tank Bucio MD [address], [address] [address] Physician optimization specialist 12/01/23 documented as of this encounter
--- OUTSIDE RECORDS SUMMARY | 2025-02-01 13:02 | XMS_ITS | Encounter Summary ---
Author Organization [facility] [place] Address [address] [place] [address]. [place] [address] Care Team Providers Care Jail Manager Name Role Phone Salina Doherty MD Unavailable [phone] Carrillo Ware APRN SHOE CLEANER Unavailable SolitarioAngelica golden NP Unavailable [phone] Nelson Arroyo PA-C Unavailable [phone] Nelson Arroyo PA-C Primary Care Provider Chinyere Barbour Unavailable Unavailable Nelson Arroyo PA-C Unavailable Pietro Wills MD Unavailable [phone] Tank Bucio MD Unavailable Encounter Details Date Type Department Care Team (Late st Contact Info) Description 08/12/2018 MyC Medical Advice [facility] [address] [place] [address], [address] [place] [address] Nelson Arroyo PA-C [address] [place] [address] Social History Tobacco Use [...] CDT Legal Sex Female 3:44 AM HEALTH POLICY NURSE Gender Identity Female 10/03/2020 8:33 PM CDT Sexual Orientation Straight 07/01/2018 3: 40 PM HEALTH POLICY NURSE documented as of this encounter Plan of Treatment Not on file documented as of this encounter Visit Diagnoses Not on filedocumented in this encounter Additional Health Concerns Assessment Noted Time PHQ-9 Depression Total Score: 13 019 7:04 AM CDT documented as of this encounter Care Teams Jail Manager Relationship Specialty Start Date End Date Nelson Arroyo PA-C [address] [place] [address] PCP - General Physician Biotechnologist - Medical 08/06/18 Salina Doherty MD Internal Medicine 12/01/14 Carrillo Ware APRN CNP [address] [place] [address] Nurse Practitioner Nurse Practitioner 12/16/14 Angelica Jerez NP [address] 261617 Nurse Practitioner Nurse Practitioner - Family 07/12/16 Nelson Arroyo PA-C [address] [place] [address] Assigned PCP 07/05/18 07/29/20 Chinyere Barbuor Personal Advocate & Liaison (PAL) 01/31/20 04/26/20 Nelson Arroyo PA-C [address] [place] [address] Assigned PCP 07/30/20 Pietro Wills MD [address] [place] [address] Assigned Heart and Vascular Provider 12/14/22 06/26/24 Tank Bucio MD [address], [facility] [address] [place] [address] Physician cyber policy and strategy planner 12/01/23 documented as of this encounter
--- OUTSIDE RECORDS SUMMARY | 2025-02-01 13:02 | XMS_ITS | Encounter Summary ---
Author Organization [place] Address [address] [place] [address] Care Team Providers Care Oven Dauber Name Role Phone Salina Doherty MD Unavailable [phone] Carrillo Ware APRN AIR BATTLE MANAGER Unavailable Hillary Unger MD Primary Care P rovider [facility] NP Unavailable [phone] Hillary Unger MD Unavailable Hillary Unger MD Unavailable Nelson Arroyo PA-C Unavailable [phone] Nelson Arroyo PA-C Primary Care Provider [phone] Chinyere Barbour Unavailable Unavailable Nelson Arroyo PA-C Unavailable [phone] Pietro Wills MD Unavailable [phone] Tank Bucio MD Unavailable [phone] Reason for Referral * Consultation - Closed Specialty Diagnoses / Procedures Referred By Michela t Referred To Contact Diagnoses Cellulitis of buttock Nelson Arroyo PA-C Phone: tel: fax: [facility] [address] [place] [address] Phone: tel: fax: Referral ID Status Reason Start Date Expiration Date Visits Re quested Visits Authorized [id number] Closed 06/25/2018 06/25/2019 1 1 Comments Your [...] where they were done to arrange for molded goods spot picker prior to your scheduled appointment. (2) List of current medications (3) This referral request (4) Any documents/labs given to you for this referral TESTER Reason for Visit * Reason Onset Date Comments Derm Problem 06/24/2018 Cellulitis Encounter Details Date Type Department Care Team (Late st Contact Info) Description 06/24/2018 MyC Medical Advice [address], [address] [place] [address] Nelson Arroyo PA-C [address] [place], [place] [id number] Derm Problem (Cellulitis) Social History Tobacco Use [...] PM CDT Legal Sex Female 3:44 AM SIZE TESTER Gender Identity Female 10/03/2020 8:33 PM CDT Sexual Orientation Straight 07/01/2018 3: 40 PM SIZE TESTER documented as of this encounter Plan [...] Total Score: 9 05/15/19 19 2:09 PM SIZE TESTER documented as of this encounter Care Teams Oven Dauber Relationship Specialty Start Date End Date Hillary Unger MD [address] [place], [place] [address] PCP - General Internal Medicine 08/21/15 08/05/18 Hillary Unger MD [address] [place], [place] [address] PCP - Assigned PCP 05/03/18 07/07/18 Nelson Arroyo PA-C [address] [facility] [place] [address] PCP - General Physician Lifter - Medical 08/06/18 Salina Doherty MD Internal Medicine 12/01/14 Carrillo Ware APRN AIR BATTLE MANAGER [address] [place] [address] Nurse Practitioner Nurse Practitioner 12/16/14 Angelica Jerez NP [facility] [address] [place] [address] Nurse Practitioner Nurse Practitioner - Family 07/12/16 Hillary Unger MD [address] [place] [address] Assigned PCP 05/03/18 07/18/18 Nelson Arroyo PA-C [address] [place] [address] Assigned PCP 07/05/18 07/29/20 Chinyere Barbour Personal Advocate & Liaison (PAL) 01/31/20 04/26/20 Nelson Arroyo PA-C [address] [place] [address] Assigned PCP 07/30/20 Pietro Wills MD [address] [place] [address] Assigned Heart and Vascular Provider 12/14/22 06/26/24 Tank Bucio MD [address], [facility] [address] [place] [address] Physician test rider 12/01/23 documented as of this encounter
--- OUTSIDE RECORDS SUMMARY | 2025-02-01 13:02 | XMS_ITS | Encounter Summary ---
Author Organization [facility] Address [address] [place] [address] Care Team Providers Care Drink Box Mechanic Name Role Phone Salina Doherty MD Unavailable [phone] Carrillo Ware APRN PEOPLE GREETER Unavailable [phone] Hillary Unger MD Primary Care P rovider [facility] NP Unavailable [phone] Nelson Arroyo PA-C Unavailable Hillary Unger MD Unavailable Hillary Unger MD Unavailable Hillary Unger MD Unavailable Nelson Arroyo PA-C Unavailable [phone] Nelson Arroyo PA-C Primary Care Provider [phone] Chinyere Barbour Unavailable Unavailable Nelson Arroyo PA-C Unavailable [phone] Pietro Wills MD Unavailable [phone] Tank Bucio MD Unavailable [phone] Encounter Details Date Type Department Care Team (Late st Contact Info) Description 02/24/2018 [facility] [address] [place] [address] Shira Chow, MARKET GARDENER Social History Tobacco Use Types Packs/Day Years [...] CDT Legal Sex Female 3:44 AM YARN CONDITIONER Gender Identity Female 10/03/2020 8:33 PM CDT Sexual Orientation Straight 07/01/2018 3: 40 PM YARN CONDITIONER documented as of this encounter Plan of Treatment Not on file documented as of this encounter Visit Diagnoses Not on filedocumented in this encounter Additional Health Concerns Assessment Noted Time PHQ-9 Depression Total Score: 6 08/30/19 18 7:34 AM CDT documented as of this encounter Care Teams Drink Box Mechanic Relationship Specialty Start Date End Date Hillary Unger MD [address] [place] [address] PCP - General Internal Medicine 08/21/15 08/05/18 Nelson Arroyo PA-C [address] [place] [address] PCP - Assigned PCP 04/12/18 05/02/18 Hillary Unger MD [address] [place] [address] PCP - Assigned PCP 02/01/18 04/11/18 Hillary Unger MD [address] [place] [address] PCP - Assigned PCP 05/03/18 07/07/18 Nelson Arroyo PA-C [address] [place] [address] PCP - General Physician Marine Animal Trainer - Medical 08/06/18 Salina Doherty MD Internal Medicine 12/01/14 Carrillo Ware APRN PEOPLE GREETER [address] [place] [address] Nurse Practitioner Nurse Practitioner 12/16/14 Angelica Jerez ESTIMATE CLERK [facility] [address] [place] [address] Nurse Practitioner Nurse Practitioner - Family 07/12/16 Hillary Ugner MD [address] [place], [place] [address] Assigned PCP 05/03/18 07/18/18 Nelson Arroyo PA-C [address] [place] [address] Assigned PCP 07/05/18 07/29/20 Chinyere Barbour Personal Advocate & Liaison (PAL) 01/31/20 04/26/20 Nelson Arroyo PA-C [address] [address] Assigned PCP 07/30/20 Pietro Wills MD [address] [address] Assigned Heart and Vascular Provider 12/14/22 06/26/24 Tank Bucio MD [address], [address] [address] Physician trim master operator 12/01/23 documented as of this encounter
--- OUTSIDE RECORDS SUMMARY | 2025-02-01 13:02 | XMS_ITS | Encounter Summary ---
Author Organization [place] Address [address] [place] [address]. [place] [address] Care Team Providers Care Application Analyst Name Role Phone Salina Doherty MD Unavailable Carrillo Ware APRN PRODUCT TEST SPECIALIST Unavailable SolitarioAngelica golden NP Unavailable [phone] Nelson Arroyo PA-C Primary Care Provider Nelson Arroyo PA-C Unavailable [phone] Pietro Wills MD Unavailable [phone] Tank Bucio MD Unavailable [phone] Reason for Visit * Reason Onset Date Comments Refill Request 01/18/2021 (ADDERALL XR) 30 MG, Adderall 10mg Encounter Details Date Type Department Care Team (Late st Contact Info) Description 01/18/2021 MyC Refill [facility] [address] [place] [address] Nelson Arroyo PA-C [address] [place] [address] Refill Request ((ADDERALL XR) 30 [...] PM CDT Legal Sex Female 3:44 AM BELL ATTENDANT Gender Identity Female 10/03/2020 8:33 PM CDT Sexual Orientation Straight 07/01/2018 3: 40 PM BELL ATTENDANT documented as of this encounter Miscellaneous Notes * Telephone Encounter - Nelson Arroyo PA-C - 01/31/2021 5:02 PM CDT She has these on file for 01/23/21. I thought I had already responded to this and see that I didn't.Concepción was seeing th AWNING CRAFTSMAN where we made a brief dose change [...] by mouth 2 times daily Her AWNING CRAFTSMAN is confusing to me. She filled 20 [...] for review/approval because: Drug not on the [facility] or [facility] refill protocol or controlled substance Maude Singh RN documented in this encounter Plan of Treatment Not on file documented as of this encounter 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), predominantly inattentive type documented in this encounter Additional Health Concerns Assessment Noted Time PHQ-9 Depression Total Score: 4 10/19/19 21 5:12 PM CDT documented as of this encounter Care Teams Application Analyst Relationship Specialty Start Date End Date Nelson Arroyo PA-C [address] [place] [address] PCP - General Physician Marker Machine Attendant - Medical 08/06/18 Salina Doherty MD Internal Medicine 12/01/14 Carrillo Ware APRN PRODUCT TEST SPECIALIST [address] [place] [address] Nurse Practitioner Nurse Practitioner 12/16/14 Angelica Jerez NP [address] 5844[address] Nurse Practitioner Nurse Practitioner - Family 07/12/16 Nelson Arroyo PA-C [address] [place] [address] Assigned PCP 07/30/20 Pietro Wills MD [address] [place] [address] Assigned Heart and Vascular Provider 12/14/22 06/26/24 Tank Bucio MD [address], [address] [address] Physician water purifier operator 12/01/23 documented as of this encounter
--- OUTSIDE RECORDS SUMMARY | 2025-02-01 13:02 | XMS_ITS | Encounter Summary ---
Author Organization [place] Address [address] [place] [address]. [place] [address] Care Team Providers Care Baggage Smasher Name Role Phone Salina Doherty MD Unavailable [phone] Carrillo Ware APRN CATTLE DEHORNER Unavailable [phone] SolitarioAngelica golden NP Unavailable [phone] Nelson Arroyo PA-C Unavailable Nelson Arroyo PA-C Primary Care Provider Chinyere Barbour Unavailable Unavailable Nelson Arroyo PA-C Unavailable [phone] Pietro Wills MD Unavailable Tank Bucio MD Unavailable Reason for Visit * Reason Onset Date Comments Refill Request 09/01/2018 clonazePAM, tiZA Nidine, propranolol, QUEtiapine, and traZODone Encounter Details Date Type Department Care Team (Late st Contact Info) Description 09/01/2018 MyC Refill [address], [address] [place] [address] Nelson Arroyo PA-C [address] [facility] [place] [address] Refill Request (clonazePAM, tiZANidine, pr... [...] CDT Legal Sex Female 3:44 AM ENGRAVER PICTURE Gender Identity Female 10/03/2020 8:33 PM CDT Sexual Orientation Straight 07/01/2018 3: 40 PM ENGRAVER PICTURE documented as of this encounter Miscellaneous Notes * Telephone Encounter - Lexi Reina RN - 09/01/2018 4:52 PM CDT Routing refill request to provider for review/approval because: Drug not on the [facility] refill protocol, only needs refills on Zanaflex [...] # refills: 0 Last Office Visit with [facility], P or [facility] prescribing provider: 08/06/2018 clonazePAM (KLONOPIN) 0.5 MG tablet Sig - Route: Take 1 tablet (0.5 mg) by mouth daily as needed for anxiety - Oral Last Written Prescription Date: 08/06/18 Last Fill Quantity: 30, # refills: 0 Last Office Visit with [facility], [facility] or [facility] prescribing provider: 08/06/2018 Routing refill request to provider for review/approval because: Drug not on the [facility], [facility] or [facility] refill protocol or controlled substance Requested [...] documented as of this encounter Care Teams Baggage Smasher Relationship Specialty Start Date End Date Nelson Arroyo PA-C [address] [address] PCP - General Physician Trimmer Meat - Medical 08/06/18 Salina Doherty MD Internal Medicine 12/01/14 Carrillo Ware APRN CATTLE DEHORNER [address] [place] [address] Nurse Practitioner Nurse Practitioner 12/16/14 Angelica Jerez THERMAL CUTTER HELPER [facility] [address] [place] [address] Nurse Practitioner Nurse Practitioner - Family 07/12/16 Nelson Arroyo PA-C [address] [place] [address] Assigned PCP 07/05/18 07/29/20 Chinyere Barbour Personal Advocate & Liaison (PAL) 01/31/20 04/26/20 Nelson Arroyo PA-C [address] [id number] Assigned PCP 07/30/20 Pietro Wills MD [address] [place] [address] Assigned Heart and Vascular Provider 12/14/22 06/26/24 Tank Bucio MD [address], [address] [address] Physician kitchen steward/stewardess 12/01/23 documented as of this encounter
--- OUTSIDE RECORDS SUMMARY | 2025-02-01 13:02 | XMS_ITS | Encounter Summary ---
Author Organization [facility] Address [address] [place] [address]. [place] [address] Care Team Providers Care Diesel Pile Hammer Operator Name Role Phone Salina Doherty MD Unavailable [phone] Carrillo Ware APRN AGENT BROKER Unavailable [phone] SolitarioAngelica golden NP Unavailable [phone] Nelson Arroyo PA-C Unavailable Nelson Arroyo PA-C Primary Care Provider [phone] Chinyere Barbour Unavailable Unavailable Nelson Arroyo PA-C Unavailable Pietro Wills MD Unavailable [phone] Tank Bucio MD Unavailable Reason for Visit * Reason Onset Date Comments Refill Request 08/30/2018 clonazePAM, tiZA Nidine, and QUEtiapine Encounter Details Date Type Department Care Team (Late st Contact Info) Description 08/30/2018 MyC Refill [address], [address] [place] [address] Nelson Arroyo PA-C [address] [place] [address] Refill Request (clonazePAM, tiZANidine, an... [...] CDT Legal Sex Female 3:44 AM POWER LINEMAN TECHNICIAN Gender Identity Female 10/03/2020 8:33 PM CDT Sexual Orientation Straight 07/01/2018 3: 40 PM POWER LINEMAN TECHNICIAN documented as of this encounter Miscellaneous [...] refills: 0 Last Office Visit with [facility] or Health prescribing provider: 08/06/2018 [place] Return in about 3 months (around 11/05/2018) for Med Check. tiZANidine (ZANAFLEX) 4 MG tablet Sig - Route: Take 1 tablet (4 mg) by mouth 3 times daily as needed for muscle spasms - Oral Last Written Prescription Date: 08/07/18 Last Fill Quantity: 90, # refills: 0 Last Office Visit with [facility] or Health prescribing provider: 08/06/2018 Requested Prescriptions [...] documented as of this encounter Care Teams Diesel Pile Hammer Operator Relationship Specialty Start Date End Date Nelson Arroyo PA-C [address] [address] PCP - General Physician Battery Mechanic - Medical 08/06/18 Salina Doherty MD Internal Medicine 12/01/14 Carrillo Ware APRN AGENT BROKER [address] [place] [address] [id number] Nurse Practitioner Nurse Practitioner 12/16/14 Angelica Jerez NP [address] [address] Nurse Practitioner Nurse Practitioner - Family 07/12/16 Nelson Arroyo PA-C [address] [address] Assigned PCP 07/05/18 07/29/20 Chinyere Barbour Personal Advocate & Liaison (PAL) 01/31/20 04/26/20 Nelson Arroyo PA-C [address] [address] Assigned PCP 07/30/20 Pietro Wills MD [address] [place] [address] Assigned Heart and Vascular Provider 12/14/22 06/26/24 Tank Bucio MD [address] [facility], [facility] [address] [place] [address] Physician hand spinner 12/01/23 documented as of this encounter
--- OUTSIDE RECORDS SUMMARY | 2025-02-01 13:02 | XMS_ITS | Encounter Summary ---
Author Organization [facility] Address [address] [place] [address]. [place] [address] Care Team Providers Care Drive In Teller Name Role Phone Salina Doherty MD Unavailable [phone] Carrillo Ware APRN TUNNELING MACHINE OPERATOR Unavailable [phone] SolitarioAngelica golden NP Unavailable [phone] Nelson Arroyo PA-C Unavailable Nelson Arroyo PA-C Primary Care Provider Chinyere Barbour Unavailable Unavailable Nelson Arroyo PA-C Unavailable Pietro Wills MD Unavailable Tank Bucio MD Unavailable Reason for Visit * Reason Onset Date Comments MyChart Communication 08/06/2018 Encounter Details Date Type Department Care Team (Late st Contact Info) Description 08/06/2018 MyC Medical Advice [facility] [address] [facility], [address] [place] [address] Nelson Arroyo PA-C [address] [place] [address] MyChart Communication Social History Tobacco [...] PM CDT Legal Sex Female 3:44 AM PHOTOGRAPHY INSTRUCTOR Gender Identity Female 10/03/2020 8:33 PM CDT Sexual Orientation Straight 07/01/2018 3: 40 PM PHOTOGRAPHY INSTRUCTOR documented as of this encounter Miscellaneous Notes * Telephone Encounter - Nelson Arroyo PA-C - 08/07/2018 10:06 AM CDT Yes. This is fine. Nelson * Telephone Encounter - Susanne Zacarias RN - 08/07/2018 8:03 AM CDT PCP: Please see below. Ok for 90 day supply? Susanne Zacarias RN -- [facility] documented in this encounter Plan of Treatment Not on file documented as of this encounter Visit Diagnoses Diagnosis Muscle spasm Spasm of muscle Cervicalgia documented in this encounter Additional Health Concerns Assessment Noted Time PHQ-9 Depression Total Score: 13 019 7:04 AM CDT documented as of this encounter Care Teams Drive In Teller Relationship Specialty Start Date End Date Nelson Arroyo PA-C [address] [place] [address] PCP - General Physician Radio Engineer - Medical 08/06/18 Salina Doherty MD Internal Medicine 12/01/14 Carrillo Ware APRN TUNNELING MACHINE OPERATOR [address] [place] [address] Nurse Practitioner Nurse Practitioner 12/16/14 Angelica Jerez NP [facility] [address] [place] [address] Nurse Practitioner Nurse Practitioner - Family 07/12/16 Nelson Arroyo PA-C [address] [place] [address] Assigned PCP 07/05/18 07/29/20 Chinyere Barbour Personal Advocate & Liaison (PAL) 01/31/20 04/26/20 Nelson Arroyo PA-C [address] [place] [address] Assigned PCP 07/30/20 Pietro Wills MD [address] [place] [address] Assigned Heart and Vascular Provider 12/14/22 06/26/24 Tank Bucio MD [address], [facility] [address] [place] [address] Physician welding machine tender 12/01/23 documented as of this encounter
--- OUTSIDE RECORDS SUMMARY | 2025-02-01 13:02 | XMS_ITS | Encounter Summary ---
Author Organization [facility] Address [address] [place] [address]. [place] [address] Care Team Providers Care Contact Representative Name Role Phone Salina Doherty MD Unavailable [phone] Carrillo Ware APRN TRAFFIC SIGN ERECTION SUPERVISOR Unavailable SolitarioAngelica golden NP Unavailable [phone] Nelson Arroyo PA-C Unavailable Nelson Arroyo PA-C Primary Care Provider Chinyere Barbour Unavailable Unavailable Nelson Arroyo PA-C Unavailable Pietro Wills MD Unavailable Tank Bucio MD Unavailable Reason for Visit * Reason Onset Date Comments Symptoms 08/28/2018 Encounter Details Date Type Department Care Team (Late st Contact Info) Description 08/28/2018 [facility] Medical Advice [facility] [id number] [place] [address], [address] [place] [address] Nelson Arroyo PA-C [address] [place] [address] Symptoms Social History Tobacco Use [...] PM CDT Legal Sex Female 3:44 AM STRIPPER AND PRINTER Gender Identity Female 10/03/2020 8:33 PM CDT Sexual Orientation Straight 07/01/2018 3: 40 PM STRIPPER AND PRINTER documented as of this encounter Plan of Treatment Not on file documented as of this encounter Visit Diagnoses Not on filedocumented in this encounter Additional Health Concerns Assessment Noted Time PHQ-9 Depression Total Score: 13 019 7:04 AM CDT documented as of this encounter Care Teams Contact Representative Relationship Specialty Start Date End Date Nelson Arroyo PA-C [address] [place] [address] PCP - General Physician Kiln Hand - Medical 08/06/18 Salina Doherty MD Internal Medicine 12/01/14 Carrillo Ware APRN CNP [address] [place] [address] Nurse Practitioner Nurse Practitioner 12/16/14 Angelica Jerez NP [place] [address] [address] [place], [place] [id number] Nurse Practitioner Nurse Practitioner - Family 07/12/16 Nelson Arroyo PA-C [address] [place] [address] Assigned PCP 07/05/18 07/29/20 Chinyere Barbour Personal Advocate & Liaison (PAL) 01/31/20 04/26/20 Nelson Arroyo PA-C [address] [place] [address] Assigned PCP 07/30/20 Pietro Wills MD [address] [place] [address] Assigned Heart and Vascular Provider 12/14/22 06/26/24 Tank Bucio MD [address] [facility] [address] [place] [address] Physician resource room special education teacher 12/01/23 documented as of this encounter
--- OUTSIDE RECORDS SUMMARY | 2025-02-01 13:02 | XMS_ITS | Encounter Summary ---
Author Organization [place] Address [address] [place] [address]. [place] [address] Care Team Providers Care Med Aide Name Role Phone Salina Doherty MD Unavailable [phone] Carrillo Ware APRN OVEN TENDER BAGELS Unavailable [phone] SolitarioAngelica golden NP Unavailable [phone] Loy Arroyo PA-C Primary Care Provider Loy Arroyo PA-C Unavailable Pietro Wills MD Unavailable [phone] Tank Bcuio MD Unavailable Reason for Visit * Reason Onset Date Comments Refill Request 06/21/2021 Encounter Details Date Type Department Care Team (Late st Contact Info) Description 06/21/2021 MyC Medical Advice [facility] [address] [place] [address] Loy Arroyo PA-C [address] [place] [address] Refill Request Social History Tobacco [...] PM CDT Legal Sex Female 3:44 AM DRILL PRESS TENDER Gender Identity Female 10/03/2020 8:33 PM CDT Sexual Orientation Straight 07/01/2018 3: 40 PM DRILL PRESS TENDER documented as of this encounter Miscellaneous Notes * Telephone Encounter - Concepción Gonzalez APRN CNP - 06/22/2021 8:16 AM DRILL PRESS TENDER Refilled. Help schedule follow-up appt with loy. Concepción Gonzalez CNP L PRESS TENDER * Telephone Encounter - Ivette Dasilva RN [...] to pcp and POD. Ivette Dasilva RN L PRESS TENDER documented in this encounter Plan of Treatment Not on file documented as of this encounter Visit Diagnoses Diagnosis Generalized anxiety disorder documented in this encounter Additional Health Concerns Assessment Noted Time PHQ-9 Depression Total Score: 9 06/04/19 22 12:13 PM DRILL PRESS TENDER documented as of this encounter Care Teams Med Aide Relationship Specialty Start Date End Date Loy Arroyo PA-C [address] [address] PCP - General Physician Inspector Heating And Refrigeration - Medical 08/06/18 Salina Doherty MD Internal Medicine 12/01/14 Carrillo Ware APRN OVEN TENDER BAGELS [address] [place] [address] Nurse Practitioner Nurse Practitioner 12/16/14 Angelica Jerez NP [facility] [address] [place], [place] [address] Nurse Practitioner Nurse Practitioner - Family 07/12/16 Loy Arroyo PA-C [address] [place] [address] Assigned PCP 07/30/20 Pietro Wills MD [address] [place] [address] Assigned Heart and Vascular Provider 12/14/22 06/26/24 Tank Bucio MD [facility] E [facility], [address] [address] Physician patient accounts coordinator 12/01/23 documented as of this encounter
--- OUTSIDE RECORDS SUMMARY | 2025-02-01 13:02 | XMS_ITS | Encounter Summary ---
Author Organization [facility] Address [address] [place] [address] Care Team Providers Care Intelligence Officer Basic Name Role Phone Salina Doherty MD Unavailable [phone] Carrillo Ware APRN WAREHOUSE ADMINISTRATOR Unavailable Hillary Unger MD Primary Care P rovider [facility] NP Unavailable [phone] Nelson Arroyo PA-C Unavailable [phone] Hillary Unger MD Unavailable Hillary Unger MD Unavailable Hillary Unger MD Unavailable Nelson Arroyo PA-C Unavailable [phone] Nelson Arroyo PA-C Primary Care Provider [phone] Chinyere Barbour Unavailable Unavailable Nelson Arroyo PA-C Unavailable [phone] Pietro Wills MD Unavailable [phone] Tank Bucio MD Unavailable [phone] Reason for Visit * Reason Onset Date Comments Patient Inquiry 07/26/2016 Refills Encounter Details Date Type Department Care Team (Late st Contact Info) Description 07/26/2016 [facility] [address] [place] [address] Hillary Unger MD [address] [place] [address] Patient Inquiry (Refills) Social History Tobacco Use [...] PM CDT Legal Sex Female 3:44 AM AEROSPACE TECHNICIAN Gender Identity Female 10/03/2020 8:33 PM CDT Sexual Orientation Straight 07/01/2018 3: 40 PM AEROSPACE TECHNICIAN documented as of this encounter Miscellaneous Notes * Telephone Encounter - Michelle Walker - 08/02/2016 3:30 PM CDT See [employer] message below. * Telephone Encounter - Hillary [...] Total Score: 7 07/14/19 17 7:14 AM AEROSPACE TECHNICIAN documented as of this encounter Care Teams Intelligence Officer Basic Relationship Specialty Start Date End Date Hillary Unger MD [address] [place] [address] PCP - General Internal Medicine 08/21/15 08/05/18 Nelson Arroyo PA-C [address] [place] [address] PCP - Assigned PCP 04/12/18 05/02/18 Hillary Unger MD [address] [place], [place] [address] PCP - Assigned PCP 02/01/18 04/11/18 Hillary Unger MD [address] [place] [address] PCP - Assigned PCP 05/03/18 07/07/18 Nelson Arroyo PA-C [address] [place] [address] PCP - General Physician Health Club Attendant - Medical 08/06/18 Salina Doherty MD Internal Medicine 12/01/14 Carrillo Ware APRN WAREHOUSE ADMINISTRATOR [address] [place] [address] Nurse Practitioner Nurse Practitioner 12/16/14 Angelica Jerez NP [facility] [address] [place], [place] [address] Nurse Practitioner Nurse Practitioner - Family 07/12/16 Hillary Unger MD [address] [place], [place] [id number] Assigned PCP 05/03/18 07/18/18 Nelson Arroyo PA-C [address] [place] [address] Assigned PCP 07/05/18 07/29/20 Chinyere Barbour Personal Advocate & Liaison (PAL) 01/31/20 04/26/20 Nelson Arroyo PA-C [address] [place] [address] Assigned PCP 07/30/20 Pietro Wills MD [address] [place] [address] Assigned Heart and Vascular Provider 12/14/22 06/26/24 Tank Bucio MD [address], [address] [address] Physician bookkeeping machine operator 12/01/23 documented as of this encounter
--- OUTSIDE RECORDS SUMMARY | 2025-02-01 13:02 | XMS_ITS | Encounter Summary ---
Author Organization [place] Address [address] [place] [address] Care Team Providers Care Guidance Director Name Role Phone Salina Doherty MD Unavailable [phone] Carrillo Ware APRN BUSINESS SERVICES COORDINATOR Unavailable Hillary Unger MD Primary Care P rovider [facility] NP Unavailable [phone] Hillary Unger MD Unavailable Hillary Unger MD Unavailable Nelson Arroyo PA-C Unavailable Nelson Arroyo PA-C Primary Care Provider Chinyere Barbour Unavailable Unavailable Nelson Arroyo PA-C Unavailable [phone] Pietro Wills MD Unavailable [phone] Tank Bucio MD Unavailable Reason for Visit * Reason Onset Date Comments WOUND CARE 07/01/2018 Follow up Encounter Details Date Type Department Care Team (Late st Contact Info) Description 07/01/2018 MyC Medical Advice [place] [id number] [facility], [address] [place] [address] Nelson Arroyo PA-C [address] [place] [address] WOUND CARE (Follow up) Social History Tobacco [...] PM CDT Legal Sex Female 3:44 AM MAP PLOTTER Gender Identity Female 10/03/2020 8:33 PM CDT Sexual Orientation Straight 07/01/2018 3: 40 PM MAP PLOTTER documented as of this encounter Plan of Treatment Not on file documented as of this encounter Visit Diagnoses Not on filedocumented in this encounter Additional Health Concerns Assessment Noted Time PHQ-9 Depression Total Score: 9 05/15/19 19 2:09 PM MAP PLOTTER documented as of this encounter Care Teams Guidance Director Relationship Specialty Start Date End Date Hillary Unger MD [address] [place] [address] PCP - General Internal Medicine 08/21/15 08/05/18 Hillary Unger MD [address] [place] [address] PCP - Assigned PCP 05/03/18 07/07/18 Nelson Arroyo PA-C [address] [address] PCP - General Physician Performance Makeup Artist - Medical 08/06/18 Salina Doherty MD Internal Medicine 12/01/14 Carrillo Ware APRN BUSINESS SERVICES COORDINATOR [address] [place] [address] Nurse Practitioner Nurse Practitioner 12/16/14 Angelica Jerez NETWORK STRATEGIST [facility] [address] [place], [place] [address] Nurse Practitioner Nurse Practitioner - Family 07/12/16 Hillary Unger MD [address] [place], [place] [address] Assigned PCP 05/03/18 07/18/18 Nelson Arroyo PA-C [address] [place] [address] Assigned PCP 07/05/18 07/29/20 Chinyere Barbour Personal Advocate & Liaison (PAL) 01/31/20 04/26/20 Nelson Arroyo PA-C [address] [place] [address] Assigned PCP 07/30/20 Pietro Wills MD [address] [place] [address] Assigned Heart and Vascular Provider 12/14/22 06/26/24 Tank Bucio MD [address], [address] [address] Physician diesel maintenance technician 12/01/23 documented as of this encounter
--- OUTSIDE RECORDS SUMMARY | 2025-02-01 13:02 | XMS_ITS | Encounter Summary ---
Author Organization [place] Address [address] [place] [address] Care Team Providers Care Protection Specialist Name Role Phone Salina Doherty MD Unavailable [phone] Carrillo Ware APRN MULTIPLEX OPERATOR Unavailable Hillary Unger MD Primary Care P rovider [facility] NP Unavailable [phone] Nelson Arroyo PA-C Unavailable [phone] Nelson rAroyo PA-C Primary Care Provider [phone] Chinyere Barbour Unavailable Unavailable Nelson Arroyo PA-C Unavailable [phone] Pietro Wills MD Unavailable [phone] Tank Bucio MD Unavailable [phone] Reason for Visit * Reason Onset Date Comments Refill Request 08/03/2018 Encounter Details Date Type Department Care Team (Late st Contact Info) Description 08/03/2018 MyC Refill [facility] [address] [facility] [address] [place] [address] Hillary Unger MD [facility] [place] [address] Refill Request Social History Tobacco [...] CDT Legal Sex Female 3:44 AM BUSINESS AREA DIRECTOR Gender Identity Female 10/03/2020 8:33 PM CDT Sexual Orientation Straight 07/01/2018 3: 40 PM BUSINESS AREA DIRECTOR documented as of this encounter Miscellaneous [...] MyChart Physical Adult with Nelson Arroyo PA-C [facility] [address] [place] [id number] documented in this encounter Plan of Treatment Not on file documented as of this encounter Visit Diagnoses Diagnosis Generalized anxiety disorder Major depressive disorder, recurrent episode, moderate (H) Major depressive disorder, recurrent episode, moderate documented in this encounter Additional Health Concerns Assessment Noted Time PHQ-9 Depression Total Score: 9 05/15/19 19 2:09 PM BUSINESS AREA DIRECTOR documented as of this encounter Care Teams Protection Specialist Relationship Specialty Start Date End Date Hillary Unger MD [address] [place] [address] PCP - General Internal Medicine 08/21/15 08/05/18 Nelson Arroyo PA-C [address] [facility] [place] [address] PCP - General Physician Biomedical Electronics Technician - Medical 08/06/18 Salina Doherty MD Internal Medicine 12/01/14 Carrillo Ware APRN MULTIPLEX OPERATOR [address] [place] [address] Nurse Practitioner Nurse Practitioner 12/16/14 Angelica Jerez ENDODONTICS DENTIST [facility] [address] [place] [address] Nurse Practitioner Nurse Practitioner - Family 07/12/16 Nelson Arroyo PA-C [address] [place] [address] Assigned PCP 07/05/18 07/29/20 Chinyere Barbour Personal Advocate & Liaison (PAL) 01/31/20 04/26/20 Nelson Arroyo PA-C [address] [place] [address] Assigned PCP 07/30/20 Pietro Wills MD [address] [place] [address] Assigned Heart and Vascular Provider 12/14/22 06/26/24 Tank Bucio MD [address], [facility] [address] [place] [address] Physician fashion photographer 12/01/23 documented as of this encounter
--- OUTSIDE RECORDS SUMMARY | 2025-02-01 13:02 | XMS_ITS | Encounter Summary ---
Author Organization [facility] Address [address] [place] [address]. [place] [address] Care Team Providers Care Loading Unit Operator Seating Name Role Phone Salina Doherty MD Unavailable [phone] Carrillo Ware APRN RAILWAY SIGNAL OPERATOR Unavailable [phone] SolitarioAngelica golden NP Unavailable [phone] Nelson Arroyo PA-C Unavailable [phone] Nelson Arroyo PA-C Primary Care Provider Chinyere Barbour Unavailable Unavailable Nelson Arroyo PA-C Unavailable Pietro Wills MD Unavailable [phone] Tank Bucio MD Unavailable Reason for Visit * Reason Onset Date Comments Refill Request 09/02/2018 tiZANidine (ALIZA FLEX) 4 MG tablet Encounter Details Date Type Department Care Team (Late st Contact Info) Description 09/02/2018 MyC Refill [place] [id number] [facility], [address] [place] [address] Nelson Arroyo PA-C [address] [place] [address] Refill Request (tiZANidine (ZANAFLEX) 4 [...] PM CDT Legal Sex Female 3:44 AM INSTRUMENT SETTER Gender Identity Female 10/03/2020 8:33 PM CDT Sexual Orientation Straight 07/01/2018 3: 40 PM INSTRUMENT SETTER documented as of this encounter Miscellaneous Notes * Telephone Encounter - Lexi Reina RN - 09/03/2018 11:39 AM CDT Routing refill request to provider for review/approval because: Drug not on the [facility] refill protocol I see [...] documented as of this encounter Care Teams Loading Unit Operator Seating Relationship Specialty Start Date End Date Nelson Arroyo PA-C [address] [place] [place], [place] [address] PCP - General Physician Washing Machine Installer - Medical 08/06/18 Salina Doherty MD Internal Medicine 12/01/14 Carrillo Ware APRN RAILWAY SIGNAL OPERATOR [address] [place] [address] Nurse Practitioner Nurse Practitioner 12/16/14 Angelica Jerez NP [facility] [address] [place] [address] Nurse Practitioner Nurse Practitioner - Family 07/12/16 Nelson Arroyo PA-C [address] [place] [address] Assigned PCP 07/05/18 07/29/20 Chinyere Barbour Personal Advocate & Liaison (PAL) 01/31/20 04/26/20 Nelson Arroyo PA-C [address] [place] [address] Assigned PCP 07/30/20 Pietro Wills MD [address] [place] [address] Assigned Heart and Vascular Provider 12/14/22 06/26/24 Tank Bucio MD [address] [facility], [address] [address] Physician lunchroom aide 12/01/23 documented as of this encounter
--- OUTSIDE RECORDS SUMMARY | 2025-02-01 13:02 | XMS_ITS | Encounter Summary ---
Author Organization [facility] Address [address] [place] [address]. [place] [address] Care Team Providers Care Director Integrated Name Role Phone Salina Doherty MD Unavailable [phone] Carrillo Ware APRN TONGUE BINDER Unavailable [phone] SolitarioAngelica golden NP Unavailable [phone] Nelson Arroyo PA-C Unavailable Nelson Arroyo PA-C Primary Care Provider Chinyere Barbour Unavailable Unavailable Nelson Arroyo PA-C Unavailable Pietro Wills MD Unavailable Tank Bucio MD Unavailable [phone] Reason for Visit * Reason Onset Date Comments Medication Request 08/10/2018 Trazodone Medication Request 08/10/[address] trazodone Encounter Details Date Type Department Care Team (Late st Contact Info) Description 08/10/2018 MyC Medical Advice [address], [address] [place] [address] Nelson Arroyo PA-C [address] [place] [address] Medication Request (Trazodone); Medication... 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 Sex Female 3:44 AM BOX LINER Gender Identity Female 10/03/2020 8:33 PM CDT Sexual Orientation Straight 07/01/2018 3: 40 PM BOX LINER documented as of this encounter Miscellaneous Notes [...] as of this encounter Care Teams Director Integrated Relationship Specialty Start Date End Date Nelson Arroyo PA-C [address] [place] [address] PCP - General Physician Day Care Supervisor - Medical 08/06/18 Salina Doherty MD Internal Medicine 12/01/14 Carrillo Ware APRN TONGUE BINDER [address] [place] [id number] Nurse Practitioner Nurse Practitioner 12/16/14 Angelica Jerez NP [facility] [address] [place], [place] [id number] Nurse Practitioner Nurse Practitioner - Family 07/12/16 Nelson Arroyo PA-C [address] [place] [id number] Assigned PCP 07/05/18 07/29/20 Chinyere Barbour Personal Advocate & Liaison (PAL) 01/31/20 04/26/20 Nelson Arroyo PA-C [address] [address] Assigned PCP 07/30/20 Pietro Wills MD [address] [place] [id number] Assigned Heart and Vascular Provider 12/14/22 06/26/24 Tank Bucio MD [address], [address] [address] Physician hospitality manager 12/01/23 documented as of this encounter
--- OUTSIDE RECORDS SUMMARY | 2025-02-01 13:02 | XMS_ITS | Encounter Summary ---
Author Organization [facility] Address [address] [place] [address]. [place] [address] Care Team Providers Care Drier Take Off Tender Name Role Phone Salina Doherty MD Unavailable Carrillo Ware APRN LAY OUT CARPENTER Unavailable SolitarioAngelica golden NP Unavailable [phone] Nelson Arroyo PA-C Primary Care Provider Nelson Arroyo PA-C Unavailable Pietro Wills MD Unavailable [phone] Tank Bucio MD Unavailable Reason for Visit * Reason Onset Date Comments Refill Request 01/31/2021 Encounter Details Date Type Department Care Team (Late st Contact Info) Description 01/31/[address] [facility] [address] [place] [address] Nelson Arroyo PA-C [address] [place] [address] Refill Request Social History Tobacco [...] CDT Legal Sex Female 3:44 AM COPY OPERATOR Gender Identity Female 10/03/2020 8:33 PM CDT Sexual Orientation Straight 07/01/2018 3: 40 PM COPY OPERATOR documented as of this encounter Plan of Treatment Not on file documented as of this encounter 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), predominantly inattentive type documented in this encounter Additional Health Concerns Assessment Noted Time PHQ-9 Depression Total Score: 4 10/19/19 21 5:12 PM CDT documented as of this encounter Care Teams Drier Take Off Tender Relationship Specialty Start Date End Date Nelson Arroyo PA-C [address] [place] [address] PCP - General Physician Stippler - Medical 08/06/18 Salina Doherty MD Internal Medicine 12/01/14 Carrillo Ware APRN LAY OUT CARPENTER [address] [place] [address] [id number] Nurse Practitioner Nurse Practitioner 12/16/14 Angelica Jerez NP [address] 995347 Nurse Practitioner Nurse Practitioner - Family 07/12/16 Nelson Arroyo PA-C [address] [address] Assigned PCP 07/30/20 Pietro Wills MD [address] [id number] Assigned Heart and Vascular Provider 12/14/22 06/26/24 Tank Bucio MD [address], [address] [address] Physician gravel hauler 12/01/23 documented as of this encounter
--- OUTSIDE RECORDS SUMMARY | 2025-02-01 13:02 | XMS_ITS | Encounter Summary ---
Author Organization [facility] Address [address] [place] [address]. [place] [address] Care Team Providers Care Explosive Ordnance Disposal Specialist Name Role Phone Salina Doherty MD Unavailable Carrillo Ware APRN CRUSHER AND BLENDER OPERATOR Unavailable Angelica Jerez NP Unavailable [phone] Nelson Arroyo PA-C Primary Care Provider [phone] Nelson Arroyo PA-C Unavailable [phone] Pietro Wills MD Unavailable Tank Bucio MD Unavailable Reason for Visit * Reason Comments Medication Refill Encounter Details Date Type Department Care Team (Late st Contact Info) Description 07/23/[address] [facility] [address] [place] [address] Concepción Gonzalez APRN CRUSHER AND BLENDER OPERATOR [address] [place] [address] Medication Refill Social History Tobacco [...] CDT Legal Sex Female 3:44 AM MANAGER REGIONAL Gender Identity Female 10/03/2020 8:33 PM CDT Sexual Orientation Straight 07/01/2018 3: 40 PM MANAGER REGIONAL documented as of this encounter Miscellaneous Notes [...] Score: 9 06/04/19 22 12:13 PM MANAGER REGIONAL documented as of this encounter Care Teams Explosive Ordnance Disposal Specialist Relationship Specialty Start Date End Date Nelson Arroyo PA-C [address] [place] [address] PCP - General Physician Engine Lathe Set Up Operator Tool - Medical 08/06/18 Salina Doherty MD Internal Medicine 12/01/14 Carrillo Ware APRN CRUSHER AND BLENDER OPERATOR [address] [place] [address] Nurse Practitioner Nurse Practitioner 12/16/14 Angelica Jerez NP [address] [address] Nurse Practitioner Nurse Practitioner - Family 07/12/16 Nelson Arroyo PA-C [address] [place] [place] [address] Assigned PCP 07/30/20 Pietro Wills MD [address] [place] [address] Assigned Heart and Vascular Provider 12/14/22 06/26/24 Tank Bucio MD [address], [address] [address] Physician chemical pathologist 12/01/23 documented as of this encounter
--- NOTE | 2025-02-01 13:13 | PC.NURSE ---
Patient requested a pump for breast milk. This was provided for patient.
[2025-02-01 13:26] LABS: Hematocrit* 40.9 % (33.0-51.0); Hemoglobin* 13.8 gm/dL (12.0-16.0); Immature Granulocytes Pct Auto 0.3 %; Mean Corpuscular HGB Conc 34 gm/dL (32-36); Mean Corpuscular Hemoglobin 29 pg (26-34); Mean Corpuscular Volume 86 fL (80-100); RDW Coefficient of Variation % 12.2 % (11.5-15.5); Red Blood Count* 4.75 m/uL (4.00-5.20); White Blood Count* 11.55 K/uL (4.50-11.00)
[2025-02-01 13:28] LABS: Immature Granulocytes Abs Auto 0.00 K/uL (0.00-0.30); Lymphocytes Absolute Auto 2.50 K/uL (0.90-2.90); Slide Review Reflex No
== END 2025-02-01 13:34 | disposition home or self-care (01) ==
PROVIDERS: Emergency Provider Emergency Medicine Emergency Medical Services
DX: N93.8 Other specified abnormal uterine and vaginal bleeding (principal)
CPT/HCPCS: 36415; 76830; 85025; 99284

== ENCOUNTER 2025-02-10 08:22 | Outpatient (CLI) | payer MEDICAID, SELFPAY | END 2025-02-10 08:23 | disposition home or self-care (01) | LOC: NFLDREF 23:34 | PROVIDERS: PCP Physician Assistant Medical; Visit Provider Registered Nurse | DX: O24.419 Gestational diabetes mellitus in pregnancy, unspecified control (principal) | CPT/HCPCS: 82947; 82950 ==